=== PATIENT | female | born 1950 | race Caucasian/White ===

== ENCOUNTER → 2017-05-21 13:00 | Outpatient (CLI) | payer MEDICARE, BC, SELFPAY ==
--- OUTSIDE RECORDS SUMMARY | 2017-07-20 12:00 | XMS RPT_ITS ---
:1950 Author Organization OHIP Support Name Relationship Address Phone TIGRE WILD Unavailable [address] [phone] [place] [address] R Unavailable Unavailable TIGRE Pace Unavailable [address] [phone] [place] [address] R Unavailable Unavailable Iliana WILD TIGRE Unavailable [address] [phone] [place] [address] R Unavailable Unavailable Iliana WILD TIGRE Unavailable [address] [phone]~[address] [place] [address] R Unavailable Unavailable Iliana WILD TIGRE Unavailable [address] [phone]~[address] [place] [address] R Unavailable Unavailable Unavailable SCOTT TIGRE Unavailable [address] [phone]~[address] [address] R Unavailable Unavailable Iliana WILD TIGRE Unavailable [address] [phone] [place] [address] R Unavailable Unavailable Iliana WILD TIGRE Unavailable [address] [phone]~[address] [address] R Unavailable Unavailable Unavailable SCOTT TIGRE Unavailable [address] [phone]~[address] [address] R Unavailable Unavailable Unavailable SCOTT TIGRE Unavailable [address] [phone]~[address] [address] R Unavailable Unavailable Unavailable SCOTT TIGRE Unavailable [address] [phone]~[address] [address] R Unavailable Unavailable Unavailable SCOTT TIGRE Unavailable [address] [phone]~[address] [address] R Unavailable Unavailable Unavailable SCOTT TIGRE Unavailable [address] [phone]~[address] [place] [address] R Unavailable Unavailable Unavailable SCOTT, TIGRE Unavailable [address] [phone] [place] [address] R Unavailable Unavailable TIGRE Pace Unavailable [address] [phone] [place] [address] R Unavailable Unavailable TIGRE Pace Unavailable [address] + [place] [address] R Unavailable Unavailable TIGRE Pace Unavailable [address] + [place] [address] R Unavailable Unavailable TIGRE Pace Unavailable [address] + [place] [address] R Unavailable Unavailable TIGRE Pace Unavailable [address] + [place] [address] R Unavailable Unavailable TIGRE Pace Unavailable [address] + [place] [address] R Unavailable Unavailable Iliana WILD TIGRE Unavailable [address] + [place] [address] R Unavailable Unavailable TIGRE Pace Unavailable [address] + [place] [address] R Unavailable Unavailable TIGRE Pace Unavailable [address] + [place] [address] R Unavailable Unavailable Iliana WILD TIGRE Unavailable [address] + [place] [address] R Unavailable Unavailable Iliana WILD TIGRE Unavailable [address] + [place] [address] R Unavailable Unavailable Unavailable SCOTT TIGRE Unavailable [address] + [place] [address] R Unavailable Unavailable Unavailable TIGRE WILD Unavailable [address] + [place] [address] R Unavailable Unavailable Unavailable SCOTT TIGRE Unavailable [address] + [place] [address] R Unavailable Unavailable Iliana WILD TIGRE Unavailable [address] + [place] [address] R Unavailable Unavailable Iliana WILD TIGRE Unavailable [address] + [place] [address] R Unavailable Unavailable Unavailable TIGRE WILD Unavailable [address] + [place] [address] R Unavailable Unavailable Unavailable TIGRE WILD Unavailable [address] + [place] [address] R Unavailable Unavailable Unavailable TIGRE WILD Unavailable [address] + [place] [address] R Unavailable Unavailable TIGRE Pace Unavailable [address] + [place] [address] R Unavailable Unavailable Unavailable TIGRE WILD Unavailable [address] + [place] [address] R Unavailable Unavailable Unavailable TIGRE WILD Unavailable [address] + [place] [address] R Unavailable Unavailable TIGRE Pace Unavailable [address] + [place] [address] R Unavailable Unavailable TIGRE Pace Unavailable [address] + [place] [address] R Unavailable Unavailable TIGRE Pace Unavailable [address] + [place] [address] R Unavailable Unavailable Unavailable TIGRE WILD Unavailable [address] + [place] [address] R Unavailable Unavailable TIGRE Pace Unavailable [address] + [place] [address] R Unavailable Unavailable TIGRE Pace Unavailable [address] + [place] [address] R Unavailable Unavailable TIGRE Pace Unavailable [address] + [place] [address] R Unavailable Unavailable Unavailable TIGRE WILD Unavailable [address] + [place] [address] R Unavailable Unavailable TIGRE Pace Unavailable [address] + [place] [address] R Unavailable Unavailable Unavailable SCOTT TIGRE Unavailable [address] + [place] [address] R Unavailable Unavailable Unavailable SCOTT TIGRE Unavailable [address] + [place] [address] R Unavailable Unavailable Iliana WILD TIGRE Unavailable [address] + [place] [address] R Unavailable Unavailable Unavailable TIGRE WILD Unavailable [address] + [place] [address] R Unavailable Unavailable TIGRE Pace Unavailable [address] + [place] [address] R Unavailable Unavailable Unavailable TIGRE WILD Unavailable [address] + [place] [address] R Unavailable Unavailable TIGRE Pace Unavailable [address] + [place] [address] R Unavailable Unavailable Unavailable TIGRE WILD Unavailable [address] + [place] [address] R Unavailable Unavailable Unavailable TIGRE WILD Unavailable [address] + [place] [address] R Unavailable Unavailable TIGRE Pace Unavailable [address] + [place] [address] R Unavailable Unavailable TIGRE Pace Unavailable [address] + [place] [address] R Unavailable Unavailable Unavailable SCOTT TIGRE Unavailable [address] + [place] [address] R Unavailable Unavailable TIGRE Pace Unavailable [address] + [place] [address] R Unavailable Unavailable TIGRE Pace Unavailable [address] + [place] [address] R Unavailable Unavailable TIGRE Pace Unavailable [address] + [place] [address] R Unavailable Unavailable Iliana WILD TIGRE Unavailable [address] + [place] [address] R Unavailable Unavailable Unavailable SCOTT TIGRE Unavailable [address] + [place] [address] R Unavailable Unavailable TIGRE Pace Unavailable [address] + [place] [address] R Unavailable Unavailable Unavailable SCOTT TIGRE Unavailable [address] + [place] [address] R Unavailable Unavailable Iliana WILD TIGRE Unavailable [address] + [place] [address] R Unavailable Unavailable Unavailable SCOTT TIGRE Unavailable [address] + [place] [address] R Unavailable Unavailable Unavailable TIGRE WILD Unavailable [address] + [place] [address] R Unavailable Unavailable Unavailable TIGRE WILD Unavailable [address] + [place] [address] R Unavailable Unavailable Unavailable TIGRE WILD Unavailable [address] + [place] [address] R Unavailable Unavailable TIGRE Pcae Unavailable [address] + [place] [address] R Unavailable Unavailable Unavailable TIGRE WILD Unavailable [address] + [place] [address] R Unavailable Unavailable TIGRE Pace Unavailable [address] + [place] [address] R Unavailable Unavailable Unavailable TIGRE WILD Unavailable [address] + [place] [address] R Unavailable Unavailable TIGRE Pace Unavailable [address] + [place] [address] R Unavailable Unavailable Iliana WILD TIGRE Unavailable [address] + [place] [address] R Unavailable Unavailable Unavailable TIGRE WILD Unavailable [address] + [place] [address] R Unavailable Unavailable Unavailable TIGRE WILD Unavailable [address] + [place] [address] R Unavailable Unavailable TIGRE Pace Unavailable [address] + [place] [address] R Unavailable Unavailable Iliana WILD TIGRE Unavailable [address] + [place] [address] R Unavailable Unavailable Unavailable TIGRE WILD Unavailable [address] + [place] [address] R Unavailable Unavailable TIGRE Pace Unavailable [address] + [place] [address] R Unavailable Unavailable Unavailable SCOTT TIGRE Unavailable [address] + [place] [address] R Unavailable Unavailable Unavailable SCOTT TIGRE Unavailable [address] + [place] [address] R Unavailable Unavailable Unavailable SCOTT TIGRE Unavailable [address] + [place] [address] R Unavailable Unavailable Unavailable TIGRE WILD Unavailable [address] + [place] [address] R Unavailable Unavailable Unavailable TIGRE WILD Unavailable [address] + [place] [address] R Unavailable Unavailable Unavailable TIGRE WILD Unavailable [address] + [place] [address] R Unavailable Unavailable Unavailable TIGRE WILD Unavailable [address] + [place] [address] R Unavailable Unavailable Unavailable TIGRE WILD Unavailable [address] + [place] [address] R Unavailable Unavailable Unavailable TIGRE WILD Unavailable [address] + [place] [address] R Unavailable Unavailable TIGRE Pace Unavailable [address] + [place] [address] R Unavailable Unavailable TIGRE Pace Unavailable [address] + [place] [address] R Unavailable Unavailable Unavailable TIGRE WILD Unavailable [address] + [place] [address] R Unavailable Unavailable TIGRE Pace Unavailable [address] + [place] [address] R Unavailable Unavailable TIGRE Pace Unavailable [address] + [place] [address] R Unavailable Unavailable TIGRE Pace Unavailable [address] + [place] [address] R Unavailable Unavailable Iliana WILD TIGRE Unavailable [address] + [place] [address] R Unavailable Unavailable Unavailable TIGRE WILD Unavailable [address] + [place] [address] R Unavailable Unavailable Unavailable TIGRE WILD Unavailable [address] + [place] [address] R Unavailable Unavailable Unavailable SCOTT TIGRE Unavailable [address] + [place] [address] R Unavailable Unavailable Iliana WILD TIGRE Unavailable [address] + [place] [address] R Unavailable Unavailable Unavailable SCOTT TIGRE Unavailable [address] + [place] [address] R Unavailable Unavailable Unavailable TIGRE WILD Unavailable [address] + [place] [address] R Unavailable Unavailable Unavailable Care Team Providers Name Role Phone JENNIFER IZQUIERDO Attending Unavailable CIESA, MARIA GUADALUPE (POSTMASTER RELIEF) Referring Unavailable JENNIFER IZQUIERDO Attending Unavailable JENNIFER IZQUIERDO Referring Unavailable DOCTOR, OUT OF TOWN Attending Unavailable Ciesa, Aislinn Primary Care Unavailable GREGORIA OCAMPO Referring Unavailable DOCTOR, OUT [place]OWN Attending Unavailable Ciesa, Aislinn Primary Care Unavailable GREGORIA OCAMPO Referring Unavailable DOCTOR, OUT OF TOWN Attending Unavailable Ciesa, Aislinn Primary Care Unavailable GREGORIA OCAMPO Referring Unavailable DOCTOR, OUT [place] TOWN Attending Unavailable Ciesa, Aislinn Primary Care Unavailable GREGORIA OCAMPO Referring Unavailable DOCTOR, OUT OF TOWN Attending Unavailable Ciesa, Aislinn Primary Care Unavailable GREGORIA OCAMPO Referring Unavailable DOCTOR, OUT OF TOWN Attending Unavailable Ciesa, Aislinn Primary Care Unavailable GREGORIA OCAMPO Referring Unavailable DOCTOR, OUT OF TOWN Attending Unavailable Ciesa, Aislinn Primary Care Unavailable GREGORIA OCAMPO Referring Unavailable DOCTOR, OUT [place] TOWN Attending Unavailable Ciesa, Aislinn Primary Care Unavailable GREGORIA OCAMPO Referring Unavailable DOCTOR, OUT [place] TOWN Attending Unavailable Ciesa, Aislinn Primary Care Unavailable GREGORIA OCAMPO Referring Unavailable DOCTOR, OUT OF TOWN Attending Unavailable Ciesa, Aislinn Primary Care Unavailable GREGORIA OCAMPO Referring Unavailable DOCTOR, OUT OF TOWN Attending Unavailable Ciesa, Aislinn Primary Care Unavailable GREGORIA OCAMPO Referring Unavailable DOCTOR, OUT OF TOWN Attending Unavailable Ciesa, Aislinn Primary Care Unavailable GREGORIA OCAMPO Referring Unavailable DOCTOR, OUT OF TOWN Attending Unavailable Ciesa, Aislinn Primary Care Unavailable DOCTOR, OUT OF TOWN Attending Unavailable Ciesa, Aislinn Primary Care Unavailable GREGORIA OCAMPO Referring Unavailable DOCTOR, OUT OF TOWN Attending Unavailable Ciesa, Aislinn Primary Care Unavailable GREGORIA OCAMPO Referring Unavailable DOCTOR, OUT OF TOWN Attending Unavailable Ciesa, Aislinn Primary Care Unavailable GREGORIA OCAMPO Referring Unavailable DOCTOR, OUT OF TOWN Attending Unavailable Ciesa, Aislinn Primary Care Unavailable GREGORIA OCAMPO Referring Unavailable DOCTOR, OUT OF TOWN Attending Unavailable Ciesa, Aislinn Primary Care Unavailable GREGORIA OCAMPO Referring Unavailable DOCTOR, OUT OF TOWN Attending Unavailable Ciesa, Aislinn Primary Care Unavailable GREGORIA OCAMPO Referring Unavailable DOCTOR, OUT OF TOWN Attending Unavailable Ciesa, Aislinn Primary Care Unavailable GREGORIA COAMPO Referring Unavailable DOCTOR, OUT OF TOWN Attending Unavailable Ciesa, Aislinn Primary Care Unavailable GREGORIA OCAMPO Referring Unavailable DOCTOR, OUT OF TOWN Attending Unavailable Ciesa, Aislinn Primary Care Unavailable GREGORIA OCAMPO Referring Unavailable DOCTOR, OUT OF TOWN Attending Unavailable Ciesa, Aislinn Primary Care Unavailable GREGORIA OCAMPO Referring Unavailable DOCTOR, OUT OF TOWN Attending Unavailable Ciesa, Aislinn Primary Care Unavailable GREGORIA OCAMPO Referring Unavailable DOCTOR, OUT OF TOWN Attending Unavailable Ciesa, Aislinn Primary Care Unavailable GREGORIA OCAMPO Referring Unavailable DOCTOR, OUT OF TOWN Attending Unavailable Ciesa, Aislinn Primary Care Unavailable GREGORIA OCAMPO Referring Unavailable DOCTOR, OUT OF TOWN Attending Unavailable Ciesa, Aislinn Primary Care Unavailable GREGORIA OCAMPO Referring Unavailable DOCTOR, OUT OF TOWN Attending Unavailable Ciesa, Aislinn Primary Care Unavailable GREGORIA OCAMPO Referring Unavailable DOCTOR, OUT OF TOWN Attending Unavailable Ciesa, Aislinn Primary Care Unavailable GREGORIA OCAMPO Referring Unavailable DOCTOR, OUT OF TOWN Attending Unavailable Ciesa, Aislinn Primary Care Unavailable GREGORIA OCAMPO Referring Unavailable DOCTOR, OUT OF TOWN Attending Unavailable Ciesa, Aislinn Primary Care Unavailable GREGORIA OCAMPO Referring Unavailable DOCTOR, OUT OF TOWN Attending Unavailable Ciesa, Aislinn Primary Care Unavailable GREGORIA OCAMPO Referring Unavailable DOCTOR, OUT OF TOWN Attending Unavailable Ciesa, Aislinn Primary Care Unavailable GREGORIA OCAMPO Referring Unavailable DOCTOR, OUT OF TOWN Attending Unavailable GREGORIA OCAMPO Referring Unavailable Ciesa, Aislinn Primary Care Unavailable DOCTOR, OUT OF TOWN Attending Unavailable Ciesa, Aislinn Primary Care Unavailable DOCTOR, OUT OF TOWN Attending Unavailable GREGORIA OCAMPO Referring Unavailable Ciesa, Aislinn Primary Care Unavailable DOCTOR, OUT OF TOWN Attending Unavailable GREGORIA OCAMPO Referring Unavailable Ciesa, Aislinn Primary Care Unavailable Jennifer Izquierdo Attending Unavailable Ciesa, Aislinn Primary Care Unavailable Jennifer Izquierdo Attending Unavailable Ciesa, Aislinn Primary Care Unavailable Mitra Jennifer Attending Unavailable Ciesa, Aislinn Primary Care Unavailable Kuenzler Jennifer Attending Unavailable Ciesa, Aislinn Primary Care Unavailable Ciesa, Aislinn Primary Care Unavailable KumillilerDayanaca Attending Unavailable Ciesa, Aislinn Primary Care Unavailable Kuenzler, Jennifer Attending Unavailable Kuenzler, Jennifer [facility] Kuenzler, Jennifer [facility] Unavailable Ciesa, Aislinn Primary Care Unavailable Kuenzler, Jennifer Attending Unavailable Kuenzler, Jennifer Attending Unavailable Ciesa, Aislinn Primary Care Unavailable Kuenzler, Jennifer Attending Unavailable Ciesa, Aislinn Primary Care Unavailable Kuenzler, Jennifer Attending Unavailable Ciesa, Aislinn Primary Care Unavailable Kuenzler, Jennifer Attending Unavailable Ciesa, Aislinn Primary Care Unavailable Kuenzler, Jennifer Attending [facility] Kuenzler, Jennifer Attending [facility] Unavailable Kuenzler, Jennifer Attending [facility] Unavailable Kuenzler, Jennifer Attending [facility] Unavailable Kuenzler, Jennifer Attending [facility] Unavailable Kuenzler, Jennifer Attending Unavailable Kuenzler, Jennifer Attending [facility] Unavailable Kuenzler, Jennifer Attending [facility] Unavailable Kuenzler, Jennifer Attending [facility] Unavailable Kuenzler, Jennifer Attending [facility] Unavailable Kuenzler, Jennifer Attending [facility] Unavailable Kuenzler, Jennifer Attending [facility] Unavailable Kuenzler, Jennifer Attending [facility] Unavailable Kuenzler, Jennifer Attending [facility] Unavailable Kuenzler, Jennifer Attending [facility] Unavailable Kuenzler, Jennifer Attending [facility] Unavailable Kuenzler, Jennifer Attending [facility] Unavailable Kuenzler, Jennifer Attending [facility] Unavailable Kuenzler, Jennifer Attending [facility] Unavailable Kuenzler, Jennifer Attending [facility] Unavailable Kuenzler, Jennifer Attending [facility] Unavailable Kuenzler, Jennifer Attending Unavailable Ciesa, [facility] Primary Care Unavailable Kuenzler, Jennifer Attending [facility] Unavailable Kuenzler, Jennifer Attending Unavailable Ciesa, Aislinn Primary Care Unavailable Kuenzler, Jennifer [facility] Unavailable Kuenzler, Jennifer Attending Unavailable Ciesa, Aislinn Primary Care Unavailable Kuenzler, Jennifer Attending Unavailable Ciesa, Aislinn Primary Care Unavailable Kuenzler, Jennifer Attending Unavailable Ciesa, Aislinn Primary Care Unavailable Kuenzler, Jennifer Attending Unavailable Ciesa, [facility] Primary Care Unavailable Kuenzler, Jennifer Attending [facility] Unavailable Kuenzler, Jennifer Attending [facility] Unavailable Kuenzler, Jennifer Attending [facility] Unavailable Kuenzler, Jennifer Attending [facility] Unavailable Kuenzler, Jennifer Attending [facility] Unavailable Kuenzler, Jennifer Attending [facility] Unavailable Kuenzler, Jennifer Attending [facility] Unavailable Kuenzler, Jennifer Attending [facility] Unavailable Kuenzler, Jennifer Attending [facility] Unavailable Kuenzler, Jennifer Attending [facility] Unavailable Kuenzler, Jennifer Attending [facility] Unavailable Kuenzler, Jennifer Attending [facility] Unavailable Kuenzler, Jennifer Attending [facility] Unavailable Kuenzler, Jennifer Attending [facility] Unavailable Kuenzler, Jennifer Attending [facility] Unavailable Kuenzler, Jennifer Attending [facility] Unavailable Kuenzler, Jennifer Attending [facility] Unavailable Kuenzler, Jennifer Attending [facility] Unavailable Kuenzler, Jennifer Attending [facility] Unavailable Danelle Myers Attending [facility] Unavailable Danelle Myers Referring Unavailable Kuenzler, Jennifer Attending [facility] Unavailable Vellanki, Danelle Attending Un[facility] Unavailable Jennifer Izquierdo Attending [facility]available [facility] Unavailable Jennifer Izquierdo Referring Unavailable Jennifer Izquierdo Attending Unavailable [facility] Unavailable PROBLEMS PROBLEMS DATE TYPE CONDITION / CODE ATTENDING STATUS SOURCE Unknown MUSCLE CARNITINE Terri Izquierdo PALMITOYLTRANSFERASE [facility] DEFICIENCY / Hospital E71.314(ICD-10) Repository Unknown INFLAMMATORY Mitra Active [place] 7 POLYARTHROPATHY / Jennifer [facility] M06.4(ICD-10) Hospital Repository Unknown FIBROMYALGIA / Mitra Active [place] 7 M79.7(ICD-10) [facility] Hospital Repository Unknown 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 / Jennifer [facility] M75.42(ICD-10) Hospital Repository Unknown OBSTRUCTIVE SLEEP APNEA Terri Izquierdo Tae 7 (ADULT) (PEDIATRIC) / Jennifer [facility] G47.33(ICD-10) Hospital Repository Unknown OTHER MCC (CURRENT) Terri Izquierdo Tae 7 DRUG THERAPY / [facility] Z79.899(ICD-10) Hospital Repository Unknown COUGH / R05(ICD-10) Terri Izquierdo Gustine 7 [facility] Hospital Repository PROCEDURES PROCEDURES No Procedure Records FoundRESULTS RESULTS CNCO Observed: 07/09/2017 Status: COMPLETED Source: [place] 12:00 AM [facility] REPOSITORY Letter Jaydon Izquierdo MDM[facility]rological [id number] [place], [place] [phone], ext [phone] SPECIFICS:NAME: [facility] [id number]: 07/09/2017ADDRESS: [address] [facility] [address]ZMULH: [phone] (home): 1950PRESCRIPTION: Heparin flush twice weeklyDIAGNOSIS:(E71.40) 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, [address] GGTP Collected: 06/25/2017 Status: F Source: [place] 3:59 PM [facility] REPOSITORY TYPE CODE TESTS RESULT OUT OF RANGE REFERENCE UNITS LAB L501.5100 High 5-55 U/L GGTP 140 Performed By: #### L501.3620, L501.5100 ####[facility] [address] [place], [place], [address] CBC W/DIFF, AUTOMATED Collected: 06/24/2017 Status: F Source: [place] 9:50 AM [facility] REPOSITORY TYPE CODE TESTS RESULT OUT OF RANGE REFERENCE UNITS LAB L100.1000 Normal 4.4-11.0 K/mm3 WBC 4.9 LAB L100.1200 Low 4.2-5.4 M/mm3 RBC 4.16 LAB L100.1300 Normal 12.0-15.0 g/dl HGB 12.8 LAB L100.1400 Normal 37-47 % HCT 40.7 LAB L100.1500 Normal 81-99 fL MCV 97.8 LAB L100.1600 Normal 27.0-32.0 pg MCH 30.8 LAB L100.1700 Low 32-36 g/gl MCHC 31.4 LAB L100.1810 Normal 11.6-14.6 % RDW 13.5 CV LAB L100.1820 High 35.1-43.9 fl RDW 47.9 SD LAB L100.1900 Normal 150-450 K/mm3 PLT 264 LAB L100.2000 Normal 6.2-12.0 fl MPV 9.9 LAB L100.2100 Normal 47-70 % NEUT% 59.0 LAB L100.2200 Normal 19-41 % LY% 28.3 LAB L100.2300 High 0-10 % MONO% 10.1 LAB L100.2400 Normal 0-5 % EO% 2.0 LAB L100.2500 Normal 0-1 % BASO% 0.4 LAB L100.2550 Normal 0.0-0.9 % IM 0.200 GRAN % Result Comment: IG% - Immature Granulocytes (promyelocytes, myelocytes andmetamyelocytes) > 1% indicates that a LEFT SHIFT is Present. LAB L100.2620 Normal 2.0-7.7 X10 3/uL Absolute Neut 2.9 LAB L100.2720 Normal 0.83-4.51 X10 3/ul Absolute Lymph 1.40 Performed By: #### L100.0100 ####[facility] [address] [place], [place], [address] COMPREHENSIVE METABOLIC Collected: 06/24/2017 Status: F Source: [facility] 9:50 AM [facility] REPOSITORY TYPE CODE TESTS RESULT OUT OF RANGE REFERENCE UNITS LAB L501.0100 High 70-110 mg/dL GLU 125 Result Comment: Fasting Glucose result from 110 to <126 mg/dLsuggests IMPAIRED HOMEOSTASIS per A.D.A. criteria. LAB L501.1000 Normal 7-18 mg/dL BUN 17 LAB L501.1100 Normal 0.55-1.02 mg/dL CREAT,SERUM 0.71 Result Comment: The validity of the calculated GFR AND GFRAA in patients over70 years has not been determined. Clinical correlation isessential. LAB L501.1110 Normal >60 mL/min EST GFR 87 Result Comment: Non- GFR Calc LAB L501.1115 Normal >60 mL/min EST GFR - 106 AA Result Comment: GFR Calc LAB L501.1300 High 10-20 RATIO BUN/CRE 24.1 LAB L501.1500 Normal 6.4-8.2 g/dL T PROT 6.8 LAB L501.1800 Low 3.4-5.0 g/dL ALB 3.2 Result Comment: Please note revised Albumin AND Globulin reference rangeeffective 2017. LAB L501.1950 Normal 2.2-4.2 g/dL GLOB 3.6 LAB L501.2000 Normal 0.9-2.4 RATIO A/G 0.9 LAB L501.2200 Normal 8.5-10.1 mg/dL CA 8.7 LAB L501.4100 High 15-37 U/L AST 52 LAB L501.4305 Normal 45-117 U/L ALK P 79 LAB L501.4405 Normal 12-78 U/L ALT 67 LAB L501.4600 Normal 0.20-1.00 mg/dL T BILI 0.70 LAB L501.5300 Normal 136-145 mmol/L NA 140 LAB L501.5600 Normal 3.5-5.1 mmol/L K 4.1 LAB L501.5900 Normal 98-107 mmol/L CL 105 LAB L501.6100 Normal 21.0-32.0 mmol/L CO2 28.0 LAB L501.6200 Normal 5-15 GAP 7 Performed By: #### L500.4050 ####[facility] [address] [place], [address] PROGRESS Observed: 03/17/2017 Status: COMPLETED Source: [place] 4:51 PM [facility] REPOSITORY HNO ID: [id number]: Jennifer De Lunaervice: (none) Author Type: PhysicianType: Progress NotesFiled: 03/18/2017 10:10 AMNote Text:S: Patient reports that she her been up and down. About 3 weeks ago shewas particularly bad - she was drained and was sleeping every day. She hadan extra carnitine infusion day and feels that this got her better after2-3 days. She can still tell how much an activity will affect her. Shefeels that emotional things can drain her as well. She still has pain thatshe feels is related to fibromyalgia. Mornings are always more challengingfor her. She still has to limit her activities toShe still feels that she still gets improvement on days that she hascarnitine infusions. She does notice dry skin.She was told she had a left shift in her blood work and is following upwith her PCP.She is hoping to go away for a month [place] She is wondering if she can get infusions done while she isthere.O:BP 153/ 71 Pulse (!) 58MS: alert and responsive, language intactCN: EOMI, V1-V3 intact bilaterally, face symmetrical, hearing grosslyintact bilaterallyMotor: 4+/5 HF and infraspinatus bilaterally, otherwise 5/5 throughout allmuscle groups, nl tone and bulk, able to arise from a chair without usinghandsSensory: intact to LTReflexes: 2+ bilateral biceps, triceps, brachioradialis, 1+ knees, andabsent ankles; no crossed adductors; no Ma's or Troemner'sbilaterallyCerebellar: FTN, HTS, and HALIE intact bilaterallyGait: antalgic but intact including toe walking, defers heel walking dueto imbalance, moderate difficulty with tandem gait, Romberg negativeA/P:Felix Wild is a 66 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 She feels thatoverall her symptoms have been manageable though she still has troublesomefatigue symptoms. She feels she gets benefit from carnitine infusions.Will continue carnitine IV two infusions a day on two days a week.She is planning to be away from early Jun to mid-Jul and would like to getcarnitine infusions at [facility] (ph: [phone]). Willinvestigate this option.Refills provided for Ultram and oral carnitine.Follow up in 6 months.Jennifer Izquierdo MD CNOV Observed: 03/17/2017 Status: COMPLETED Source: [place] 4:10 PM [facility] REPOSITORY Office Visit (NENMMN) ---------FELIX WILD ([id number]) 1950 FDate Time Provider Department03/17/17 4:10 PM JENNIFER IZQUIERDO During your visit today, we recorded the following information about you: Pulse Blood pressure 58/minute 153/71Reailyn Izquierdo MD 03/18/2017 10:10 AM SignedS: Patient reports that she her been up and down. About 3 weeks ago she wasparticularly bad - she was drained and was sleeping every day. She had an extracarnitine infusion day and feels that this got her better after 2-3 days. Shecan still tell how much an activity will affect her. She feels that emotionalthings can drain her as well. She still has pain that she feels is related tofibromyalgia. Mornings are always more challenging for her. She still has tolimit her activities toShe still feels that she still gets improvement on days that she has carnitineinfusions. She does notice dry skin.She was told she had a ANDquot;left shiftANDquot; in her blood work and isfollowing up with her PCP.She is hoping to go away for a month - planning to rent a place in [place], [place]. She is wondering if she can get infusions done while she is there.O:BP 153/71 Pulse (!) 58MS: alert and responsive, language intactCN: EOMI, V1-V3 intact bilaterally, face symmetrical, hearing grossly intactbilaterallyMotor: 4+/5 HF and infraspinatus bilaterally, otherwise 5/5 throughout allmuscle groups, nl tone and bulk, able to arise from a chair without using handsSensory : intact to LTReflexes: 2+ bilateral biceps, triceps, brachioradialis, 1+ knees, and absentankles; no crossed adductors; no Ma's or Troemner's bilaterallyCerebellar: FTN, HTS, and HALIE intact bilaterallyGait: antalgic but intact including toe walking, defers heel walking due toimbalance, moderate difficulty with tandem gait, Romberg negativeA/P:Felix Wild is a 66 year-old woman with muscle carnitine deficiency who hasimproved on carnitine supplements - IV and oral. She feels that overall hersymptoms have been manageable though she still has troublesome fatiguesymptoms. She feels she gets benefit from carnitine infusions. Will continuecarnitine IV two infusions a day on two days a week.She is planning to be away from early Jun to mid-Jul and would like to getcarnitine infusions at [facility] (ph: [phone]). Willinvestigate this option.Refills provided for Ultram and oral carnitine.Follow up in 6 months.Rayshawn Marlow Provider: JENNIFER IZQUIERDO [[id number]]Allergies As of Date: 03/17/2017 Noted Allergy ReactionMETOCLOPRAMIDE 09/11/2002 Comments: Jamshid mena (PENTAZOCINE) 03/13/2004 14 - Other: See Comments Comments: Nervous and passed outDate Reviewed: 03/17/2017Reviewed by: Marleni (Rn) DESTINEE Brown - Fully AssessedPrimary Visit Diagnosis:Muscle carnitine deficiency (HCC) [E71.40] Other Visit Diagnosis: Carnitine deficiency (HCC) [E71.40]Order(s):levOCARNitine (CARNITOR) 330 mg tablettake 3 tablets by mouth four times a dayDisp: 360 tabletRfl: 11 ULTRAM 50 mg tabletTake one tablet by mouth up to two times daily as neededDisp: 60 tabletRfl: 5Prescriptions as of 2016 Sig: AMLODIPINE ORAL Take by mouth. LEVOCARNITINE 330 MG TABLET take 3 tablets by mouth four * ULTRAM 50 MG TABLET Take one tablet by mouth up t* FLUOXETINE 20 MG CAPSULE Take 1 capsule by mouth once * TRAZODONE 50 MG TABLET Take 1 tablet by mouth at bed* CYCLOBENZAPRINE 5 MG TABLET Take 1 tablet by mouth three * SULFASALAZINE 500 MG TABLET Take 2 tablets by mouth twice* COENZYME N18-SHAZJIG E 100 MG* Take by mouth. FLUTICASONE 100 MCG-SALMETERO* Inhale 1 Puff as instructed t* MULTIVITAMIN TABLET Take one(1) tablet daily. ALIGN 4 MG CAPSULE Take one(1) tablet daily. SULINDAC 150 MG TABLET Take one(1) tablet two(2) cherry* ALBUTEROL SULFATE HFA 90 MCG/* Use 2 puffs every 4 hours as * CHOLECALCIFEROL (VITAMIN D3) * Take 1 capsule by mouth once *Medication notes this encounter AMLODIPINE ORAL >> Marleni Brown RN , RN 03/17/2017 4:31 PM >> MARLENI BROWN WedMar 17, 2017 4:31 PM Patient unsure of dose CYCLOBENZAPRINE 5 MG TABLET >> Marleni Brown RN, RN 03/17/2017 4: 25 PM >> MARLENI BROWN WedMar 17, 2017 4:25 PM Takes seldomProblem List As Of Date Noted Resolved Myalgia and myositis, unspecified [IIP8231] INVALID FOR*03/11/2016 ANXIETY STATE NOS [F41.1] INVALID FOR* DEPRESSIVE DISORDER NEC [F32.9] INVALID FOR* GENERAL OSTEOARTHROSIS [M15.9] INVALID FOR* ANEMIA NOS [D64.9] INVALID FOR* ESOPHAGEAL REFLUX [K21.9] INVALID FOR* ASTHMA UNSPECIFIED [J45.909] INVALID FOR* BONE AND CARTILAGE DIS NOS [M89.9, M94.9] INVALID FOR* BENIGN NEOPLASM LG BOWEL [D12.6] INVALID FOR* GASTRITIS/DUODENITIS NOS [535.5] INVALID FOR* SUBDURAL HEMORRHAGE [I62.00] INVALID FOR* 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] INVALID FOR* SICCA SYNDROME [M35.00] IMPAIRED FASTING GLUCOSE [R73.01] INVALID FOR * Abnormal X-Ray Examination [R93.8] INVALID FOR* Diverticulosis [K57.90] INVALID FOR* Gastritis/Duodenitis [K29.70, K29.90] INVALID FOR* Carnitine deficiency (HCC) [E71.40] INVALID FOR*03/11/2016 Primary carnitine deficiency (HCC) [E71.41] INVALID FOR*03/11/2016 LINWOOD (obstructive sleep apnea) [G47.33] INVALID FOR* Thoracic or lumbosacral neuritis or radiculitis*INVALID FOR* Lumbago [M54.5] INVALID FOR*08/21/2014 Low back pain [M54.5] INVALID FOR* Muscle carnitine deficiency (HCC) [E71.40] INVALID FOR*Prescriptions ordered this encounter Disp Refills Start End LEVOCARNITINE 330 MG TABLET 360 * 11 03/17/2017 Sig: take 3 tablets by mouth four times a day ULTRAM 50 MG TABLET 60 t* 5 03/17/2017 Class: Print RX Sig: Take one tablet by mouth up to two times daily as neededMedications Discontinued During This Encounter levOCARNitine (CARNITOR) 330 mg tabl* 360 * 11 09/09/2016 03/17/2017 Sig: take 3 tablets by mouth four times a day Disc: Reason for discontinue is not on file. ULTRAM 50 mg tablet 60 t* 5 09/09/2016 03/17/2017 Class: Print RX Sig: Take one tablet by mouth up to two times daily as needed Disc: Reason for discontinue is not on file.Disposition: Return in about 6 months (around 09/14/2017) for carnitine deficiency.Follow-up and Disposition History RecordedLetter Jaydon Izquierdo MDKingman Regional Medical CenterlogMount S[facility], [place] [phone], ext [phone] SPECIFICS:NAME: Felix WildMRN: [id number]: 03/17/2017ADDRESS: [address] [facility] [address]VWBMJ: (home): 1950PRESCRIPTION:Carnitine IV infusion ?1.5 gram two doses a day on Wednesday and WednesdayFor 6 monthsDIAGNOSIS:(E71.40) Muscle carnitine deficiency (HCC) (primary encounter diagnosis) Jennifer Izquierdo MDEncounter Number: [id number] Status:Closed by JENNIFER IZQUIERDO MD on 03/18/17 CBC W/DIFF, AUTOMATED Collected: 03/12/2017 Status: F Source: [place] 2:00 PM [facility] REPOSITORY TYPE CODE TESTS RESULT OUT OF RANGE REFERENCE UNITS LAB L100.1000 Normal 4.4-11.0 K/mm3 WBC 5.2 LAB L100.1200 Low 4.2-5.4 M/mm3 RBC 3.99 LAB L100.1300 Normal 12.0-15.0 g/dl HGB 12.2 LAB L100.1400 Normal 37-47 % HCT 38.3 LAB L100.1500 Normal 81-99 fL MCV 96.0 LAB L100.1600 Normal 27.0-32.0 pg MCH 30.6 LAB L100.1700 Low 32-36 g/gl MCHC 31.9 LAB L100.1810 Normal 11.6-14.6 % RDW 13.6 CV LAB L100.1820 High 35.1-43.9 fl RDW 47.7 SD LAB L100.1900 Normal 150-450 K/mm3 PLT 250 LAB L100.2000 Normal 6.2-12.0 fl MPV 9.4 LAB L100.2100 Normal 47-70 % NEUT% 57.9 LAB L100.2200 Normal 19-41 % LY% 31.7 LAB L100.2300 Normal 0-10 % MONO% 9.2 LAB L100.2400 Normal 0-5 % EO% 1.0 LAB L100.2500 Normal 0-1 % BASO% 0.2 LAB L100.2550 Normal 0.0-0.9 % IM 0.000 GRAN % Result Comment: IG% - Immature Granulocytes (promyelocytes, myelocytes andmetamyelocytes) > 1% indicates that a LEFT SHIFT is Present. LAB L100.2620 Normal 2.0-7.7 X10 3/uL Absolute Neut 3.0 LAB L100.2720 Normal 0.83-4.51 X10 3/ul Absolute Lymph 1.66 Performed By: #### L100.0100 ####[facility] [address] [place], [address] COMPREHENSIVE METABOLIC Collected: 03/12/2017 Status: F Source: [facility] 2:00 PM [facility] REPOSITORY TYPE CODE TESTS RESULT OUT OF RANGE REFERENCE UNITS LAB L501.0100 Normal 70-110 mg/dL GLU 106 LAB L501.1000 High 7-18 mg/dL BUN 24 LAB L501.1100 Normal 0.55-1.02 mg/dL 0.56 CREAT,SERUM Result Comment: The validity of the calculated GFR AND GFRAA in patients over70 years has not been determined. Clinical correlation isessential. LAB L501.1110 Normal >60 mL/min EST GFR 114 Result Comment: Non- GFR Calc LAB L501.1115 Normal >60 mL/min EST GFR - 138 AA Result Comment: GFR Calc LAB L501.1300 High 10-20 RATIO BUN/CRE 42.9 LAB L501.1500 Normal 6.4-8.2 g/dL T PROT 6.6 LAB L501.1800 Low 3.4-5.0 g/dL ALB 3.2 LAB L501.1950 Normal 2.3-3.5 g/dL GLOB 3.4 LAB L501.2000 Normal 0.9-2.4 RATIO A/G 0.9 LAB L501.2200 Low 8.5-10.1 mg/dL CA 8.1 LAB L501.4100 Normal 15-37 U/L AST 18 LAB L501.4305 Normal 45-117 U/L ALK P 62 LAB L501.4405 Normal 12-78 U/L ALT 26 LAB L501.4600 Normal 0.20-1.00 mg/dL T BILI 0.60 LAB L501.5300 Normal 136-145 mmol/L NA 142 LAB L501.5600 Normal 3.5-5.1 mmol/L K 4.0 LAB L501.5900 High 98-107 mmol/L CL 110 LAB L501.6100 Normal 21.0-32.0 mmol/L CO2 27.0 LAB L501.6200 Normal 5-15 GAP 5 Performed By: #### L500.4050 ####[facility] [address] [place], [address] CHEST PA AND LATERAL Observed: 12/23/2016 Status: F Source: [place] 10:58 AM [facility] RE[facility]ITORY [facility] [address] [place], [place] [address]Xbxrzhs 4dChest PA and LateralMR#: [id number] Acct: [id number]: FELIX WILD Rep #: [id number]: 1950 F 66 From: Juan Woody MDPCP: Aislinn Espinal Status: REG CLIStudy: Chest PA and Lateral Date of Exam: 12/23/16Exam# [id number] Ordering Dr: Jennifer Izquierdo MDSTUDY: X-RAY CHESTREASON FOR EXAM: Female, 66 years old. CoughTECHNIQUE: PA and lateral views of the chest.COMPARISON: 11/15/2014 FINDINGS:Left subclavian Port-A- Cath tip in the distal SVC..The lungs are clear and expanded. There is no demonstrated pleuralabnormality.Normal size heart. Normal mediastinum and heather. Normal visualizedpulmonary arteries. Normal visualized aortic arch and descending thoracicaorta.Normal visualized thoracic spine. Normal visualized ribs, clavicles, andshoulders.There is no demonstrated abnormality of the visualized soft tissuestructures of the upper abdomen. ORDER #: [id number] RAD/Chest PA and LateralIMPRESSION:No acute pulmonary processElectronically Signed:Bryant Woody MD at 11:44 EDTTel , Service support , YI: Aislinn Izquierdo Information Technology Director:Signed CBC W/DIFF, AUTOMATED Collected: 12/01/2016 Status: F Source: [place] 2:00 PM [facility] REPOSITORY TYPE CODE TESTS RESULT OUT OF RANGE REFERENCE UNITS LAB L100.1000 Normal 4.4-11.0 K/mm3 WBC 5.8 LAB L100.1200 Low 4.2-5.4 M/mm3 RBC 4.16 LAB L100.1300 Normal 12.0-15.0 g/dl HGB 12.9 LAB L100.1400 Normal 37-47 % HCT 39.1 LAB L100.1500 Normal 81-99 fL MCV 94.0 LAB L100.1600 Normal 27.0-32.0 pg MCH 31.0 LAB L100.1700 Normal 32-36 g/gl MCHC 33.0 LAB L100.1810 Normal 11.6-14.6 % RDW 12.8 CV LAB L100.1820 Normal 35.1-43.9 fl RDW 42.9 SD LAB L100.1900 Normal 150-450 K/mm3 PLT 270 LAB L100.2000 Normal 6.2-12.0 fl MPV 9.5 LAB L100.2100 Normal 47-70 % NEUT% 57.6 LAB L100.2200 Normal 19-41 % LY% 31.7 LAB L100.2300 Normal 0-10 % MONO% 9.5 LAB L100.2400 Normal 0-5 % EO% 1.0 LAB L100.2500 Normal 0-1 % BASO% 0.2 LAB L100.2550 Normal 0.0-0.9 % IM 0.000 GRAN % Result Comment: IG% - Immature Granulocytes (promyelocytes, myelocytes andmetamyelocytes) > 1% indicates that a LEFT SHIFT is Present. LAB L100.2620 Normal 2.0-7.7 X10 3/uL Absolute Neut 3.3 LAB L100.2720 Normal 0.83-4.51 X10 3/ul Absolute Lymph 1.83 Performed By: #### L100.0100, L500.4050 ####[facility] [address] [place], [address] COMPREHENSIVE METABOLIC Collected: 12/01/2016 Status: F Source: [facility] 2:00 PM [facility] REPOSITORY TYPE CODE TESTS RESULT OUT OF RANGE REFERENCE UNITS LAB L501.0100 Normal 70-110 mg/dL GLU 98 LAB L501.1000 Normal 7-18 mg/dL BUN 16 LAB L501.1100 Normal 0.55-1.02 mg/dL 0.60 CREAT,SERUM Result Comment: The validity of the calculated GFR AND GFRAA in patients over70 years has not been determined. Clinical correlation isessential. LAB L501.1110 Normal >60 mL/min EST GFR 105 Result Comment: Non- GFR Calc LAB L501.1115 Normal >60 mL/min EST GFR - 127 AA Result Comment: GFR Calc LAB L501.1255 Normal ml/min Estimated 44.54 CRCL LAB L501.1300 High 10-20 RATIO BUN/CRE 26.6 LAB L501.1500 Normal 6.4-8. g/dL T PROT 6.8 2 LAB L501.1800 Low 3.4-5. g/dL ALB 3.3 0 LAB L501.1950 Normal 2.3-3. g/dL GLOB 3.5 5 LAB L501.2000 Normal 0.9-2. RATIO A/G 0.9 4 LAB L501.2200 Normal 8.5-10 mg/dL CA 8.5 .1 LAB L501.4100 Normal 15-37 U/L AST 16 LAB L501.4305 Normal 45-117 U/L ALK P 69 LAB L501.4405 Normal 12-78 U/L ALT 21 LAB L501.4600 Normal 0.20-1 mg/dL T BILI 0.60 .00 LAB L501.5300 Normal 136-14 mmol/L NA 144 5 LAB L501.5600 Normal 3.5-5. mmol/L K 3.9 1 LAB L501.5900 High 98-107 mmol/L CL 109 LAB L501.6100 Normal 21.0-3 mmol/L CO2 28.0 2.0 LAB L501.6200 Normal 5-15 GAP 7 Performed By: #### L100.0100, L500.4050 ####[facility] [address] [place], [address] PROGRESS Observed: 09/09/2016 Status: COMPLETED Source: [place] 3:11 PM [facility] REPOSITORY HNO ID: [id number]: Jennifer De Lunaervice: (none) Author Type: PhysicianType: Progress NotesFiled: 09/09/2016 3:33 PMNote Text:S: Patient repots that she has been more tired in the last few weeks andis now sleeping 2- 3 hours during the day despite sleeping 10 hours atnight. She will have minimal activity during the day but gets to the pointwhere she can hardly hold her head up. She has missed a few carnitineinfusions but does not notice this is connected to her recent worsening.She still has some muscle pain but she does start cramping sometimes -this is quite intermittent and better than it was prior to carnitineinfusions. Her legs are more sore if she is up and walking a lot.She feels she is getting more depressed as she cannot do as much. She elly Prozac 10 mg daily and feels this has been helpful. She was previouslyon 20 mg and felt better but she went back down when she was feelingbetter.She feels that she still gets improvement on days that she has carnitineinfusions. She does notice dry skin.O:BP 136/67 Pulse (!) 54 Resp 16 Ht 162.6 cm (5' 4) Wt 84.8 kg (187lb) BMI 32.1 kg/m2MS: alert and responsive, language intactCN: EOMI, V1-V3 intact bilaterally, face symmetrical, hearing grosslyintact bilaterallyMotor: 4+/5 HF and infraspinatus bilaterally, otherwise 5/5 throughout allmuscle groups, nl tone and bulk, able to arise from a chair without usinghandsSensory: intact to LTReflexes: 2+ bilateral biceps, triceps, brachioradialis, 1+ knees, andabsent ankles; no crossed adductors; no Ma' s or Troemner'sbilaterallyCerebellar: FTN, HTS, and HALIE intact bilaterallyGait: antalgic but intact including heel and toe walking, unable toperform tandem gait, Romberg negativeA/P:Felix Wild is a 66 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 She feels thatoverall her symptoms have been manageable though she still has troublesomefatigue symptoms. She feels she gets benefit from carnitine infusions.Will continue carnitine IV two infusions a day on two days a week.She seems to have depression symptoms that are worsening. Will increaseProzac from 10 mg to 20 mg.Ultram refill provided.Follow up in 6 months.Jennifer Izquierdo MD CNOV Observed: 09/09/2016 Status: COMPLETED Source: [place] 2:40 PM [facility] REPOSITORY Office Visit (NENMMN) ---------FELIX WILD ([id number]) 1950 [facility] Provider Department09/09/16 2:40 PM JENNIFER IZQUIERDO During your visit today, we recorded the following information about you: Pulse Respiration Blood pressure Weight 54/minute 16/minute 136/67 84.8 kg Height 1.626 Ruchi Izquierdo MD 09/09/2016 3:33 PM SignedS: Patient repots that she has been more tired in the last few weeks and is nowsleeping 2-3 hours during the day despite sleeping 10 hours at night. She willhave minimal activity during the day but gets to the point where she can hardlyhold her head up. She has missed a few carnitine infusions but does not noticethis is connected to her recent worsening. She still has some muscle pain butshe does start cramping sometimes - this is quite intermittent and better thanit was prior to carnitine infusions. Her legs are more sore if she is up andwalking a lot.She feels she is getting more depressed as she cannot do as much. She is onProzac 10 mg daily and feels this has been helpful. She was previously on 20 mgand felt better but she went back down when she was feeling better.She feels that she still gets improvement on days that she has carnitineinfusions. She does notice dry skin.O :BP 136/67 Pulse (!) 54 Resp 16 Ht 162.6 cm (5' 4ANDquot;) Wt 84.8 kg (187lb) BMI 32.1 kg/m2MS: alert and responsive, language intactCN: EOMI, V1-V3 intact bilaterally, face symmetrical, hearing grossly intactbilaterallyMotor: 4+/5 HF and infraspinatus bilaterally, otherwise 5/5 throughout allmuscle groups, nl tone and bulk, able to arise from a chair without using handsSensory : intact to LTReflexes: 2+ bilateral biceps, triceps, brachioradialis, 1+ knees, and absentankles; no crossed adductors; no Ma's or Troemner's bilaterallyCerebellar: FTN, HTS, and HALIE intact bilaterallyGait: antalgic but intact including heel and toe walking, unable to performtandem gait, Romberg negativeA/P:Felix Wild is a 66 year-old woman with muscle carnitine deficiency who hasimproved on carnitine supplements - IV and oral. She feels that overall hersymptoms have been manageable though she still has troublesome fatiguesymptoms. She feels she gets benefit from carnitine infusions. Will continuecarnitine IV two infusions a day on two days a week.She seems to have depression symptoms that are worsening. Will increase Prozacfrom 10 mg to 20 mg.Ultram refill provided.Follow up in 6 months.Anam Marlow MD 3:35 PM SignedAddended by: JENNIFER IZQUIERDO MD on: 09/09/2016 03:35 PM Modules accepted: Christie Izquierdo MD 09/09/2016 3:38 PM SignedAddended by: JENNIFER IZQUIERDO MD on: 03:38 PM Modules accepted: OrdersReferring Provider: AISLINN ESPINAL ([employer]) [[id number]] Allergies As of Date: 09/09/2016 Noted Allergy ReactionMETOCLOPRAMIDE 09/11 Comments: Jamshid mena (PENTAZOCINE) 03/13/2004 14 - Other: See Comments Comments: Nervous and passed outDate Reviewed: 09/09/2016Reviewed by: Bonnie Mccauley Ma - Fully AssessedPrimary Visit Diagnosis:Muscle carnitine deficiency (HCC) [E71.41] Other Visit Diagnoses:Depressive disorder, not elsewhere classified [F32.9] Carnitine deficiency (HCC) [E71.40]Order(s):FLUoxetine (PROZAC) 20 mg capsuleTake 1 capsule by mouth once daily.Disp: 90 capsuleRfl: 3 ULTRAM 50 mg tabletTake one tablet by mouth up to two times daily as neededDisp: 60 tabletRfl: 5 levOCARNitine ( CARNITOR) 330 mg tablettake 3 tablets by mouth four times a dayDisp: 360 tabletRfl: 11Prescriptions as of 09/09/2016 Sig: FLUOXETINE 20 MG CAPSULE Take 1 capsule by mouth once * ULTRAM 50 MG TABLET Take one tablet by mouth up t* LEVOCARNITINE 330 MG TABLET take 3 tablets by mouth four * TRAZODONE 50 MG TABLET Take 1 tablet by mouth at bed* CYCLOBENZAPRINE 5 MG TABLET Take 1 tablet by mouth three * SULFASALAZINE 500 MG TABLET Take 2 tablets by mouth twice* CHOLECALCIFEROL (VITAMIN D3) * Take 1 capsule by mouth once * COENZYME Q33-TNPSWVF E 100 MG* Take by mouth. FLUTICASONE 100 MCG- SALMETERO* Inhale 1 Puff as instructed t* MULTIVITAMIN TABLET Take one(1) tablet daily. ALIGN 4 MG CAPSULE Take one(1) tablet daily. SULINDAC 150 MG TABLET Take one (1) tablet two(2) cherry* ALBUTEROL SULFATE HFA 90 MCG/* Use 2 puffs every 4 hours as *Problem List As Of Date 09/09/2016 Noted Resolved Myalgia and myositis, unspecified [GOX1395] INVALID FOR*03/11/2016 ANXIETY STATE NOS [F41.1] INVALID FOR* DEPRESSIVE DISORDER NEC [F32.9] INVALID FOR* GENERAL OSTEOARTHROSIS [ M15.9] INVALID FOR* ANEMIA NOS [D64.9] INVALID FOR* ESOPHAGEAL REFLUX [K21.9] INVALID FOR* ASTHMA UNSPECIFIED INVALID FOR* BONE AND CARTILAGE DIS NOS [M89.9, M94.9] INVALID FOR* BENIGN NEOPLASM LG BOWEL [D12.6] INVALID FOR* GASTRITIS/DUODENITIS NOS [535.5] INVALID FOR* SUBDURAL HEMORRHAGE [I62.00] INVALID FOR* 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] INVALID FOR* SICCA SYNDROME [M35.00] IMPAIRED FASTING GLUCOSE [ R73.01] INVALID FOR* Abnormal X-Ray Examination [R93.8] INVALID FOR* Diverticulosis [K57.90] INVALID FOR* Gastritis/Duodenitis [K29.70, K29.90] INVALID FOR* Carnitine deficiency (HCC) [E71.40] INVALID FOR*03/11/2016 Primary carnitine deficiency (HCC) [E71.41] INVALID FOR*03/11/2016 LINWOOD (obstructive sleep apnea) [G47.33] INVALID FOR* Thoracic or lumbosacral neuritis or radiculitis*INVALID FOR* Lumbago [M54.5] INVALID FOR*08/21/2014 Low back pain [M54.5] INVALID FOR* Muscle carnitine deficiency (HCC) [E71.41] INVALID FOR* Prescriptions ordered this encounter Disp Refills Start End FLUOXETINE 20 MG CAPSULE 90 c* 3 09/09/2016 Route: ORAL Sig: Take 1 capsule by mouth once daily. ULTRAM 50 MG TABLET 60 t* 5 09/09/2016 Class: Print RX Sig: Take one tablet by mouth up to two times daily as needed LEVOCARNITINE 330 MG TABLET 360 * 11 2016 Sig: take 3 tablets by mouth four times a dayMedications Discontinued During This Encounter fluoxetine hcl(PROZAC 20 MG CAP) 90 3 07/04/2008 09/09/2016 Class: Print RX Route: ORAL Sig: Take one(1) capsule daily. May substitute with generic equivalent. Disc: Reason for discontinue is not on file. ULTRAM 50 mg tablet 60 t* 5 03/10/2016 09/09/2016 Class: Print RX Sig: Take one tablet by mouth up to two times daily as needed Disc: Reason for discontinue is not on file. levOCARNitine (CARNITOR) 330 mg tabl* 360 * 11 02/03/2016 09/09/2016 Sig: take 3 tablets by mouth four times a day Disc: Reason for discontinue is not on file.Disposition: Return in about 6 months (around 03/12/2017) for carnitine deficiency.Follow-up and Disposition History RecordedLetter Jaydon Izquierdo MDMnurological [address] [place], [place] [phone], ext [id number] SPECIFICS:NAME: Felix WildMRN: [id number]: 09/09/2018[address] [facility] [address]WFICQ: (home): [address]PRESCRIPTION:Carnitine IV infusion ?1.5 gram two doses a day on Wednesday and WednesdayFor 6 monthsDIAGNOSIS:(E71.41) Muscle carnitine deficiency (HCC) (primary encounter diagnosis)(F32.9) Depressive disorder, not elsewhere classified Jennifer Izquierdo MDEncounter Number: [id number] Status:Closed by JENNIFER IZQUIERDO MD on 09/09/16 ALLERGIES ALLERGIES DATE TYPE / NAME / CODE REACTION SEVERITY SOURCE CODE 05/11/2017 Drug pentazocine Unknown Unknown Tae Allergy/41 lactate/[id number](R Community 6310530([facility]) Repository 05/11/2017 Drug pentazocine/[id number] Unknown Unknown Gustine Allergy/41 83(RXNORM) Community 5244935([facility]) Repository 05/11/2017 Drug metoclopramide/F0060 Other Unknown Gustine Allergy/41 76743(RXNORM) Community 0344471([facility]) Repository 05/11/2017 Drug pentazocine Unknown Gustine Allergy/41 lactate/[id number](R [facility] 5452420[facility] 05/11/2017 Drug pentazocine/[id number] Unknown Gustine Allergy/41 83(RXNORM) [facility] 9461775([facility]) Repository 05/11/2017 Drug metoclopramide/F0060 Other Gustine Allergy/41 52471(RXNORM) [facility] 5865219([facility]) Repository 03/13/2004 DRUG PENTAZOCINE OTHER: SEE C [address] [phone]( Repository [facility] CT) 09/11/2002 DRUG METOCLOPRAMIDE [address] 4200924( Repository [facility] CT) ENCOUNTERS ENCOUNTERS ADMIT/DISCHARGE ACCOUNT ADMITTING ENCOUNTER LOCATION SOURCE NUMBER CLASS 07/01/2017 [id number] [facility] ing:MEDOUTP Repository 06/29/2017 [id number] Ambulatory [facility] Hospital ing:MEDOUTP Repository 06/25/2017 [id number] Ambulatory [facility] Hospital ing:MTLAB Repository 06/25/2017 [id number] Ambulatory [facility] Hospital ing:MEDOUTP Repository 06/24/2017 [id number] Ambulatory [facility] Hospital ing:LAB.FUTUR Repository E 06/22/2017 [id number] Ambulatory [facility] Hospital ing:MEDOUTP Repository 06/18/2017 [id number] Ambulatory [facility] Hospital ing:MEDOUTP Repository 06/17/2017 [id number] Ambulatory [facility] Hospital ing:MEDOUTP Repository 06/11/2017 [id number] Ambulatory [facility] Hospital ing:MEDOUTP Repository 06/08/2017 [id number] Ambulatory [facility] Hospital ing:MEDOUTP Repository 06/04/2017 [id number] Ambulatory [facility] Hospital ing:MEDOUTP Repository 06/01/2017 [id number] Ambulatory [facility] Hospital ing:MEDOUTP Repository 2017 [id number] Ambulatory Tae Tae [facility] Hospital ing:MEDOUTP Repository 2017 [id number] Ambulatory Tae Tae [facility] Hospital ing:MEDOUTP Repository 05/25/2017 [id number] Ambulatory Gustine Tae [facility] Hospital ing:MEDOUTP Repository 05/21/2017 [id number] Ambulatory Tae Gustine [facility]Build Hospital ing:MEDOUTP Repository 05/18/2017 [id number] Ambulatory Tae Gustine [facility] Hospital ing:MEDOUTP Repository 05/14/2017 [id number] Ambulatory Tae Tae [facility] Hospital ing:MEDOUTP Repository 05/11/2017 [id number] Ambulatory Gustine Tae [facility] Hospital ing:MEDOUTP Repository 05/07/2017 [id number] Ambulatory Tae Gustine [facility] Hospital ing:MEDOUTP Repository 05/04/2017 [id number] Ambulatory Gustine Tae [facility] Hospital[facility] Hospital ing:MEDOUTP Repository 04/30/2017 [id number] Ambulatory Gustine Tae [facility] Hospital ing:MEDOUTP Repository 04/27/2017 [id number] Ambulatory Tae Gustine [facility] HospitalBuild Hospital ing:MEDOUTP Repository 04/23/2017 [id number] Ambulatory Gustine Tae [facility] Hospital ing:MEDOUTP Repository 04/21/2017 [id number] Ambulatory Gustine Gustine [facility] Hospital ing:MEDOUTP Repository 04/16/2017 [id number] Ambulatory Tae Tae [facility] Hospital[facility] Hospital ing:MEDOUTP Repository 04/14/2017 [id number] Ambulatory Tae Tae [facility] Hospital ing:MEDOUTP Repository 04/09/2017 [id number] Ambulatory Tae Gustine [facility]Build Hospital ing:MEDOUTP Repository 04/06/2017 [id number] Ambulatory Gustine Gustine [facility] HospitalBuild Hospital ing:MEDOUTP Repository 04/02/2017 [id number] Ambulatory Gustine Gustine [facility] Hospital[facility] Hospital ing:MEDOUTP Repository 03/31/2017 [id number] Ambulatory Tae [facility] Hospital[facility] Hospital ing:MEDOUTP Repository 03/31/2017 [id number] [facility] Repository 03/26/2017 [id number] [facility] Repository 03/24/2017 [id number] [facility] Repository 03/19/2017 [id number] [facility] Repository 03/17/2017/03/17/20 [id number] Ambulatory [address] Repository 03/16/2017 [id number] [facility] Repository 03/12/2017 [id number] [facility] Repository 03/09/2017 [id number] [facility] Repository 03/05/2017 [id number] [facility] Repository 03/02/2017 [id number] [facility] Repository 03/01/2017 [id number] [facility] Repository 02/23/2017 [id number] [facility] Repository 02/19/2017 [id number] [facility] Repository 02/16/2017 [id number] [facility] Repository 02/12/2017 [id number] [facility] Repository 02/10/2017 [id number] [facility] Repository 02/05/2017 [id number] [facility] Repository 02/02/2017 [id number] [facility] Repository 01/28/2017 [id number] Ambulatory Tae Tae [facility] Hospital ing:MEDOUTP Repository 01/26/2017 [id number] Ambulatory Gustine Gustine [facility] Hospital ing:MEDOUTP Repository 01/22/2017 [id number] Ambulatory Gustine Tae [facility] Hospital ing:MEDOUTP Repository 01/19/2017 [id number] Ambulatory Tae Gustine [facility] Hospital ing:MEDOUTP Repository 01/15/2017 [id number] Ambulatory Tae Tae [facility] Hospital ing:MEDOUTP Repository 01/12/2017 [id number] Ambulatory Gustine Tae [facility] Hospital ing:MEDOUTP Repository 01/08/2017 [id number] Ambulatory Gustine Tae [facility] Hospital ing:MEDOUTP Repository 01/06/2017 [id number] Ambulatory Gustine Tae [facility] Hospital ing:MEDOUTP Repository 01/01/2017 [id number] Ambulatory Gustine Tae [facility] Hospital ing:MEDOUTP Repository 12/29/2016 [id number] Ambulatory Tae Gustine [facility] Hospital ing:MEDOUTP Repository 12/24/2016 [id number] Ambulatory Tae Tae [facility] Hospital ing:MEDOUTP Repository 12/23/2016 [id number] Ambulatory Tae Gustine [facility] Hospital ing:MEDOUTP Repository 12/18/2016 [id number] Ambulatory Tae Gustine [facility] Hospital ing:MEDOUTP Repository 12/16/2016 [id number] Ambulatory Gustine Gustine [facility] Hospital ing:MEDOUTP Repository 12/11/2016 [id number] Ambulatory Gustine Tae [facility] Hospital ing:MEDOUTP Repository 12/08/2016 [id number] Ambulatory Tae Tae [facility] Hospital ing:MEDOUTP Repository 12/04/2016 [id number] Ambulatory Tae Tae [facility] Hospital ing:MEDOUTP Repository 12/01/2016 [id number] Ambulatory Tae Tae [facility] Hospital ing:MEDOUTP Repository 11/27/2016 [id number] Ambulatory Gustine Tae [facility] Hospital ing:MEDOUTP Repository 11/25/2016 [id number] Ambulatory Tae Gustine [facility] Hospital ing:MEDOUTP Repository 11/20/2016 [id number] Ambulatory Gustine Gustine [facility] Hospital ing:MEDOUTP Repository 11/17/2016 [id number] Ambulatory Gustine Tae [facility] Hospital ing:MEDOUTP Repository 11/12/2016 [id number] Ambulatory Gustine Tae [facility] Hospital ing:MEDOUTP Repository 11/10/2016 [id number] Ambulatory Gustine Gustine [facility] Hospital ing:MEDOUTP Repository 11/05/2016 [id number] Ambulatory Gustine Tae [facility] Hospital ing:MEDOUTP Repository 11/03/2016 [id number] Ambulatory Tae Gustine [facility] Hospital ing:MEDOUTP Repository 10/30/2016 [id number] Ambulatory Gustine Tae [facility] Hospital ing:MEDOUTP Repository 10/28/2016 [id number] Ambulatory Gustine Gustine [facility] Hospital ing:MEDOUTP Repository 10/23/2016 [id number] Ambulatory Tae Gustine [facility] Hospital ing:MEDOUTP Repository 10/20/2016 [id number] Ambulatory Tae Tae [facility] Hospital ing:MEDOUTP Repository 10/16/2016 [id number] Ambulatory Tae Tae [facility] Hospital ing:MEDOUTP Repository 10/13/2016 [id number] Ambulatory Tae Gustine [facility] Hospital ing:MEDOUTP Repository 10/09/2016 [id number] Ambulatory Gustine Tae [facility] Hospital ing:MEDOUTP Repository 10/06/2016 [id number] Ambulatory Tae Tae [facility] Hospital ing:MEDOUTP Repository 10/02/2016 [id number] Ambulatory Tae Tae [facility] Hospital ing:MEDOUTP Repository 09/29/2016 [id number] Ambulatory Gustine Gustine [facility] Hospital ing:MEDOUTP Repository 09/25/2016 [id number] Ambulatory Tae Tae [facility] Hospital ing:MEDOUTP Repository 09/22/2016 [id number] Ambulatory Tae Gustine [facility] Hospital ing:MEDOUTP Repository 09/18/2016 [id number] [facility] Repository 09/15/2016 [id number] [facility] Repository 09/11/2016 [id number] [facility] Repository 09/09/2016/09/10/19 [id number] Ambulatory [address] Repository 09/09/2016 [id number] [facility] Repository 09/04/2016 [id number] Ambulatory Tae Gustine [facility] Hospital ing:MEDOUTP Repository 09/01/2016 [id number] [facility] Repository 08/28/2016 [id number] [facility] Repository 08/26/2016 [id number] [facility] Repository 08/21/2016 [id number] [facility] Repository 08/18/2016 [id number] [facility] Repository 08/11/2016 [id number] [facility] Repository 08/07/2016 [id number] [facility] Repository 08/05/2016 [id number] [facility] Repository 07/31/2016 [id number] Ambulatory Gustine Tae [facility] Hospital ing:MEDOUTP Repository 07/29/2016 [id number] Ambulatory Gustine Gustine [facility] Hospital ing:MEDOUTP Repository 07/24/2016 [id number] [facility] Repository 07/21/2016 [id number] [facility] Repository PAYERS PAYERS ENCOUNTER GUARANTOR PAYER SUBSCRIBER SOURCE 07/01/2017 TIGRE Thapa Primary FELIX LOBATOB: Gustine [id number] JASMYN Insurance:MEDICARE [id number] [address]Hrp: Number: Repository [phone] [id number] (HP) Date:2017-06-25 07/01/2017 Secondary FELIX WILDDOB: Gustine Insurance:ANTHEMPolic [id number] Community y Number: Hospital [id number] Repository Date:7690-34-13QI [address] [place] [address]NV: 07/01/2017 Tertiary NOT GIVENUNK Tae Insurance:SELF PAY [facility] Number: Effective Repository Date:2017-06-25 06/29/2017 TIGRE Thapa Primary FELIX WILDDOB: Gustine [id number] JASMYN Insurance:MEDICARE [id number] [facility] [address]Oqm: Number: Repository [phone] [id number] (HP) Date:2017-06-25 06/29/2017 Secondary FELIX WILDDOB: Tae Insurance:ANTHEMPolic [id number] Community y Number: Hospital [id number] Repository Date:8649-54-87GQ [address], [place] [address]FA: 06/29/2017 Tertiary NOT GIVENUNK Gustine Insurance:SELF PAY [facility] Number: Effective Repository Date:2017-06-25 06/25/2017 TIGRE Thapa Primary FELIX WILDDOB: Gustine [id number] JASMYN Insurance:MEDICARE [id number] [facility] [address]Iin: Number: Repository [phone] [id number] (HP) Date:2017-06-25 06/25/2017 Secondary FELIX WILDDOB: Tae Insurance:ANTHEMPolic [id number] Community y Number: Hospital [id number] Repository Date:3913-24-43ML [address]XSSWQ, [place] [address]HG: 06/25/2017 Tertiary NOT GIVENUNK Tae Insurance:SELF PAY [facility] Number: Effective Repository Date:2017-06-25 06/25/2017 TIGRE Thapa Primary FELIX J HALLDOB: Gustine [id number] JASMYN Insurance:MEDICARE [id number] [facility] [address]Vcr: Number: Repository [phone] [id number] (HP) Date:2017-06-18 06/25/2017 Secondary FELIX J SCOTTDOB: Gustine Insurance:ANTHEMPolic [id number] Community y Number: [facility] [id number] Repository Date:6904-75-91ZZ [address]BIZZ, [place] [address]YZ: 06/25/2017 Tertiary NOT GIVENUNK Tae Insurance:SELF PAY [facility] Hospital Number: Effective Repository Date:2017-06-18 06/24/2017 TIGRE Thapa Primary FELIX J HALLDOB: Tae [id number] JASMYN Insurance:MEDICARE [id number] [facility] [address]Zhx: Number: Repository [phone] [id number] (HP) Date:2017-06-24 06/24/2017 Secondary FELIX J SCOTTDOB: Gustine Insurance:ANTHEMPolic [id number] Community y Number: Hospital [id number] Repository Date:4460-87-70II [address], [place] [address]DX: 06/24/2017 Tertiary NOT GIVENUNK Gustine Insurance:SELF PAY [facility] Hospital Number: Effective Repository Date:2017-06-24 06/22/2017 TIGRE Thapa Primary FELIX J HALLDOB: Tae [id number] JASMYN Insurance:MEDICARE [id number] [facility] [address]Bko: (330) Number: Repository [phone] () [id number] Date:2017-06-18 06/22/2017 Secondary FELIX J HALLDOB: Tae Insurance:ANTHEMPolic [id number] Community y Number: Hospital [id number] Repository Date:4427-73-60JX [address] [place] [address]TG: 06/22/2017 Tertiary NOT GIVENUNK Tae Insurance:SELF PAY [facility] Effective Repository Date:2017-06-18 06/18/2017 Kash Primary FELIX J HALLDOB: Tae [id number] [address] Insurance:MEDICARE [id number] [address]Rgu: (330) Number: Repository [phone] () [id number] Date:2017-06-11 06/18/2017 Secondary FELIX J HALLDOB: Gustine Insurance:ANTHEMPolic [id number] Community y Number: Hospital [id number] Repository Date:0271-28-91TO [address] [place] [address] 935[address]XV: 06/18/2017 Tertiary NOT GIVENUNK Tae Insurance:SELF PAY [facility] Hospital Number: Effective Repository Date:2017-06-11 06/17/2017 Tigre Thapa Primary FELIX J HALLDOB: Tae [id number] Jasmyn Insurance:MEDICARE [id number]-[facility] [address]Rlh: (330) Number: Repository [phone] () [id number] Date:2017-06-11 06/17/2017 Secondary FELIX J HALLDOB: Tae Insurance:ANTHEMPolic [id number] Community y Number: Hospital [id number] Repository Date:9924-82-92RN [address] [place] [address]FX: 06/17/2017 Tertiary NOT GIVENUNK Tae Insurance:SELF PAY [facility] Hospital Number: Effective Repository Date:2017-06-11 06/11/2017 Kash Primary FELIX J HALLDOB: Gustine [id number] Jasm[address] Insurance:MEDICARE [id number] [facility] [address]Mvf: (330) Number: Repository [phone] () [id number] Date:2017-06-02 06/11/2017 Secondary FELIX J HALLDOB: Gustine Insurance:ANTHEMPolic [id number] Community y Number: Hospital [id number] Repository Date:4534-27-06SM [address] [place] [address] 69[address]VH: 06/11/2017 Tertiary NOT GIVENUNK Tae Insurance:SELF PAY [facility] Number: Effective Repository Date:2017-06-02 06/08/2017 Kash Primary FELIX J HALLDOB: Gustine [id number] Jasmyn Insurance:MEDICARE [id number], [place] [facility] [address]Fug: (330) Number: Repository [phone] () [id number] Date:2017-06-02 06/08/2017 Secondary FELIX J HALLDOB: Gustine Insurance:ANTHEMPolic [id number] Community y Number: Hospital [id number] Repository Date:2342-15-20GM [address] [place] [address] 788[address]TM: 06/08/2017 Tertiary NOT GIVENUNK Tae Insurance:SELF PAY [facility] Hospital Number: Effective Repository Date:2017-06-02 06/04/2017 Tigre Thapa Primary FELIX J HALLDOB: Gustine [id number] [address] Insurance:MEDICARE [id number], [place] [facility] [address]Ext: (330) Number: Repository [phone] () [id number] Date:2017-05-25 06/04/2017 Secondary FELIX J HALLDOB: Tae Insurance:ANTHEMPolic [id number] Community y Number: Hospital [id number] Repository Date:2302-72-65KN [address] [place] [address] 735[address]TG: 06/04/2017 Tertiary NOT GIVENUNK Gustine Insurance:SELF PAY [facility] Effective Repository Date:2017-05-25 06/01/2017 Tigre Thapa Primary FELIX J HALLDOB: Gustine [id number] Jasmyn Insurance:MEDICARE [id number], [place] [facility] [address]Ykf: (330) Number: Repository [phone] () [id number] Date:2017-05-25 06/01/2017 Secondary FELIX J HALLDOB: Gustine Insurance:ANTHEMPolic [id number] Community y Number: [facility] [id number] Repository Date:8621-01-89RU [address]BCSVEFZ, [place] [address]JO: 06/01/2017 Tertiary NOT GIVENUNK Tae Insurance:SELF PAY [facility] [facility] Rep[facility] Date:2017-05-25 2017 Tigre Thapa Primary FELIX J SCOTTDOB: Tae [id number] Jasmyn Insurance[id number] [facility] [address]Pxg: (330) Number: Repository [phone] () [id number] Date:2017-05-24 2017 Secondary FELIX Alanis WILDDOB: Tae Insurance:ANTHEMPolic [id number] Community y Number: Hospital [id number] Repository Date:5313-52-77BJ [address]YDLXOF, [place] [address]OW: 2017 Tertiary NOT GIVENUNK Tae Insurance:SELF PAY [facility] Hospital Number: Effective Repository Date:2017-05-25 2017 Tigre Thapa Primary FELIX Thapa HALLDOB: Tae [id number] Jasmyn Insurance:MEDICARE [id number] A [facility] [address]Rqz: (330) Number: Repository [phone] () [id number] Date:2017-05-25 2017 Secondary FELIX J HALLDOB: Gustine Insurance:ANTHEMPolic [id number] Community y Number: Hospital [id number] Repository Date:0270-73-48PG [address], [place] [address]RI: 2017 Tertiary NOT GIVENUNK Tae Insurance:SELF PAY [facility] Number: Effective Repository Date:2017-05-25 05/25/2017 Tigre Thapa Primary FELIX J HALLDOB: Tae [id number] Jasmyn Insurance:MEDICARE [id number] [address]Bnl: (330) Number: Repository [phone] () [id number] Date:2017-05-24 05/25/2017 Secondary FELIX J HALLDOB: Tae [facility] [id number] Community y Number: Hospital [id number] Repository Date:7102-87-32WG [address]BDPQZZQ, [place] [address]LL: 05/25/2017 Tertiary NOT GIVENUNK Gustine Insurance:SELF PAY [facility] Number: Effective Repository Date:2017-05-24 05/21/2017 TIGRE Thapa Primary FELIX Thapa HALLDOB: Gustine [id number] JASMYN Insurance:MEDICARE [id number] [address]Luv: (330) Number: Repository [phone] () [id number] Date:2013-05-21 05/21/2017 Secondary FELIX J HALLDOB: Gustine Insurance:ANTHEMPolic [id number] Community y Number: Hospital [id number] Repository Date:8458-37-15HI [address], [place] [address]BJ: 05/18/2017 TIGRE Thapa Primary FELIX J HALLDOB: Tae [id number] JASMYN Insurance:MEDICARE [id number] [facility] [address]Gbu: (330) Number: Repository [phone] ) [id number] Date:2013-05-21 05/18/2017 Secondary FELIX J HALLDOB: Gustine Insurance:ANTHEMPolic [id number] Community y Number: Hospital [id number] Repository Date:2483-27-92KC [address]EWDTLLJ [place] [address]PS: 05/14/2017 KASH Primary FELIX J HALLDOB: Tae [id number] JASMYN Insurance:MEDICARE [id number] [facility] 13391Qht: (330) Number: Repository [phone] () [id number] Date:2013-05-21 05/14/2017 Secondary FELIX J HALLDOB: Tae Insurance:ANTHEMPolic [id number] Community y Number: Hospital [id number] Repository Date:3482-34-43ND [address] [place] [address] 80[address]XN: 05/11/2017 TIGRE Thapa Primary FELIX J HALLDOB: Gustine [id number] JASMYN Insurance:MEDICARE [id number] [facility] [address]286Apl: (330) Number: Repository [phone] () [id number] Date:2013-05-21 05/11/2017 Secondary FELIX J HALLDOB: Tae Insurance:ANTHEMPolic [id number] Community y Number: Hospital [id number] Repository Date:6450-90-64YW [address] [place] [address] [place] [address]RL: 05/07/2017 KASH Primary FELIX J HALLDOB: Tae [id number] JASMYN Insurance:MEDICARE [id number] [facility] 42480Xgz: (330) Number: Repository [phone] () [id number] Date:2013-05-21 05/07/2017 Secondary FELIX J HALLDOB: Tae Insurance:ANTHEMPolic [id number] Community y Number: Hospital [id number] Repository Date:2266-08-17TE [address] [place] [address] 34[address]AO: 05/04/2017 KASH Primary FELIX J HALLDOB: Tae [id number] JASMYN Insurance:MEDICARE [id number] Cleveland Heights Medical Center 35806Tko: (330) Number: Repository [phone] () [id number] Date:2013-05-21 05/04/2017 Secondary FELIX J HALLDOB: Tae Insurance:ANTHEMPolic [id number] Community y Number: Hospital [id number] Repository Date:2969-72-82WB [address] [place] [address] 145[address]AC: 04/30/2017 KASH Primary FELIX J HALLDOB: Tae [id number] JASMYN Insurance:MEDICARE [id number] Cleveland Heights Medical Center 95879Brh: (330) Number: Repository [phone] () [id number] Date:2013-05-21 04/30/2017 Secondary FELIX J HALLDOB: Tae Insurance:ANTHEMPolic [id number] Community y Number: Hospital [id number] Repository Date:2321-45-38KN [address] [place] [address]PJ: 04/27/2017 KASH Primary FELIX J HALLDOB: Gustine [id number] JASMYN Insurance:MEDICARE [id number] [facility] 94537Uij: (330) Number: Repository [phone] () [id number] Date:2013-05-21 04/27/2017 Secondary FELIX J HALLDOB: Tae Insurance:ANTHEMPolic [id number] Community y Number: Hospital [id number] Repository Date:2225-35-94JB [address]FZ[address] [place] [address] 626[address]TQ: 04/23/2017 KASH Primary FELIX J HALLDOB: Tae [id number] JASMYN Insurance:MEDICARE [id number] [facility] Center 02893Try: (330) Number: Repository [phone] () [id number] Date:2013-05-21 04/23/2017 Secondary FELIX J HALLDOB: Gustine Insurance:[facility] [id number] Community y Number: Hospital [id number] Repository Date:3257-14-59FS [address] [place] [address]NB: 04/21/2017 TIGRE Thapa Primary FELIX J HALLDOB: Gustine [id number] JASMYN Insurance:MEDICARE [id number] [facility] 66233Yqb: (330) Number: Repository [phone] () [id number] Date:2013-05-21 04/21/2017 Secondary FELIX J HALLDOB: Gustine Insurance:[facility] [id number] Community y Number: Hospital [id number] Repository Date:4416-64-59SE [address] [place] [address] 634[address]EY: 04/16/2017 TIGRE Thapa Primary FELIX J HALLDOB: Tae [id number] JASMYN Insurance:MEDICARE [id number] Cleveland Heights Medical Center 98250Ira: (330) Number: Repository [phone] () [id number] Date:2013-05-21 04/16/2017 Secondary FELIX J HALLDOB: Gustine Insurance:[facility] [id number] Community y Number: Hospital [id number] Repository Date:1621-00-63OD [address] [place] [address] 530[address]YV: 04/14/2017 KASH Primary FELIX J HALLDOB: Gustine [id number] JASMYN Insurance:MEDICARE [id number] [facility] 50070Scg: (330) Number: Repository [phone] () [id number] Date:2013-05-21 04/14/2017 Secondary FELIX J HALLDOB: Gustine Insurance:ANTHEMPolic [id number] Community y Number: Hospital [id number] Repository Date:8109-96-82KQ [address] [place] [address] 925[address]UE: 04/09/2017 TIGRE Thapa Primary FELIX J HALLDOB: Tae [id number] JASMYN Insurance:MEDICARE [id number] [facility] Hospital A [facility] 22945Dmt: (330) Number: Repository [phone] () [id number] Date:2013-05-21 04/09/2017 Secondary FELIX J HALLDOB: Gustine Insurance:ANTHEMPolic [id number] Community y Number: Hospital [id number] Repository Date:4561-24-70NN [address]GBXYN[address] [place] [address] 94247JK: 04/06/2017 TIGRE Thapa Primary FELIX J HALLDOB: Tae [id number] JASMYN Insurance:MEDICARE [id number] Roanoke Memorial Hospital A [facility] 84901Brf: (330) Number: Repository [phone] () [id number] Date:2013-05-21 04/06/2017 Secondary FELIX J HALLDOB: Tae Insurance:ANTHEMPolic [id number] Community y Number: Hospital [id number] Repository Date:2791-13-51IC [address] [place] [address] 976[address]IE: 04/02/2017 TIGRE Thapa Primary FELIX J HALLDOB: Tae [id number] JASMYN Insurance:MEDICARE [id number] [facility] Center 20187Mea: (330) Number: Repository [phone] () [id number] Date:2013-05-21 04/02/2017 Secondary FELIX J HALLDOB: Gustine Insurance:ANTHEMPolic [id number] Community y Number: Hospital [id number] Repository Date:4238-40-79HQ [address] [place] [address] 96116ZC: 03/31/2017 KASH Primary FELIX J HALLDOB: Tae [id number] JASMYN Insurance:MEDICARE [id number] [facility] 32804Bkd: (330) Number: Repository [phone] () [id number] Date:2013-05-21 03/31/2017 Secondary FELIX J HALLDOB: Gustine Insurance:ANTHEMPolic [id number] Community y Number: Hospital [id number] Repository Date:3470-23-60HF [address] [place] [address] 23390EU: 03/31/2017 KASH Primary FELIX J HALLDOB: Tae [id number] JASMYN Insurance:MEDICARE [id number] [facility] Center 52384Mrv: (330) Number: Repository [phone] () [id number] Date:2013-05-21 03/31/2017 Secondary FELIX J HALLDOB: Gustine Insurance:ANTHEMPolic [id number] Community y Number: Hospital [id number] Repository Date:0751-04-55MI [address] [place] [address] 00696SC: 03/26/2017 KASH Primary FELIX J HALLDOB: Gustine [id number] JASMYN Insurance:MEDICARE [id number] [facility] Heights Medical Center 76289Vmi: (330) Number: Repository [phone] () [id number] Date:2013-05-21 03/26/2017 Secondary FELIX J HALLDOB: Tae Insurance:ANTHEMPolic [id number] Community y Number: Hospital [id number] Repository Date:4120-86-75XL [address]QOXZCRZ[address] [place] [address] 75531QB: 03/24/2017 KASH Primary FELIX J HALLDOB: Tae [id number] JASMYN Insurance:MEDICARE [id number] [facility] 33621Lhb: (330) Number: Repository [phone] () [id number] Date:2013-05-21 03/24/2017 Secondary FELIX J HALLDOB: Tae Insurance:[facility] [id number] Community y Number: Hospital [id number] Repository Date:3580-16-19UO [address] [place] [address] 96885GS: 03/19/2017 TIGRE Thapa Primary FELIX J HALLDOB: Tae [id number] JASMYN Insurance:MEDICARE [id number] [facility] 07272Ghx: (330) Number: Repository [phone] () [id number] Date:2013-05-21 03/19/2017 Secondary FELIX J HALLDOB: Tae Insurance:[facility] [id number] Community y Number: Hospital [id number] Repository Date:4315-38-28VV [address] [place] [address] 75488HH: 03/16/2017 TIGRE Thapa Primary FELIX J HALLDOB: Gustine [id number] JASMYN Insurance:MEDICARE [id number] [facility] 35661Olb: (330) Number: Repository [phone] () [id number] Date:2013-05-21 03/16/2017 Secondary FELIX J HALLDOB: Gustine Insurance:[facility] [id number] Community y Number: Hospital [id number] Repository Date:5103-99-91FR [address]AYCNTMC[address] [place] [address] 24926OC: 03/12/2017 KASH Primary FELIX J HALLDOB: Tae [id number] JASMYN Insurance:MEDICARE [id number] [facility] 35519Ztl: (330) Number: Repository [phone] () [id number] Date:2013-05-21 03/12/2017 Secondary FELIX J HALLDOB: Gustine Insurance:ANTHEMPolic [id number] Community y Number: Hospital [id number] Repository Date:6517-16-70PV [address]FDNWYZJ, [place] [address]JN: 03/09/2017 KASH Primary FELIX J HALLDOB: Gustine [id number] JASMYN Insurance:MEDICARE [id number] [facility] Center 72515Nsp: (330) Number: Repository [phone] () [id number] Date:2013-05-21 03/09/2017 Secondary FELIX J HALLDOB: Gustine Insurance:ANTHEMPolic [id number] Community y Number: Hospital [id number] Repository Date:4547-30-42TZ [address]JJYWEOD [place] [address]FG: 03/05/2017 TIGRE Thapa Primary FELIX J HALLDOB: Gustine [id number] JASMYN Insurance:MEDICARE [id number] Roanoke Memorial Hospital A [facility] 89608Btn: (330) Number: Repository [phone] () [id number] Date:2013-05-21 03/05/2017 Secondary FELIX J HALLDOB: Tae Insurance:ANTHEMPolic [id number] Community y Number: Hospital [id number] Repository Date:5651-42-59SR [address]LGRGZOK [place] [address]LL: 03/02/2017 TIGRE Thapa Primary FELIX J HALLDOB: Gustine [id number] JASMYN Insurance:MEDICARE [id number] [facility] 37949Zql: (330) Number: Repository [phone] () [id number] Date:2013-05-21 03/02/2017 Secondary FELIX J HALLDOB: Gustine Insurance:ANTHEMPolic [id number] Community y Number: Hospital [id number] Repository Date:6366-77-53OJ [address]WTOJP[address] [place] [address] 47608UL: 03/01/2017 KASH Primary FELIX J HALLDOB: Gustine [id number] JASMYN Insurance:MEDICARE [id number] [facility] 92893Kdd: (330) Number: Repository [phone] () [id number] Date:2013-05-21 03/01/2017 Secondary FELIX J HALLDOB: Tae Insurance:ANTHEMPolic [id number] Community y Number: Hospital [id number] Repository Date:6632-74-16PG [address] [place] [address] 15164SR: 02/23/2017 KASH Primary FELIX J HALLDOB: Tae [id number] JASMYN Insurance:MEDICARE [id number] Cleveland Heights Medical Center 80264Ynt: (330) Number: Repository [phone] () [id number] Date:2013-05-21 02/23/2017 Secondary FELIX J HALLDOB: Gustine Insurance:ANTHEMPolic [id number] Community y Number: Hospital [id number] Repository Date:8587-75-80DY [address] [place] [address] 97840LB: 02/19/2017 KASH Primary FELIX J HALLDOB: Gustine [id number] JASMYN Insurance:MEDICARE [id number] [facility] Heights Medical Center 40301Uha: (330) Number: Repository [phone] () [id number] Date:2013-05-21 02/19/2017 Secondary FELIX J HALLDOB: Tae Insurance:ANTHEMPolic [id number] Community y Number: Hospital [id number] Repository Date:0297-06-01LM [address]TDKJCGC[address] [place] [address] 27932VK: 02/16/2017 KASH Primary FELIX J HALLDOB: Tae [id number] JASMYN Insurance:MEDICARE [id number] [facility] Center 77442Plf: (330) Number: Repository [phone] () [id number] Date:2013-05-21 02/16/2017 Secondary FELIX J HALLDOB: Tae Insurance:[facility] [id number] Community y Number: Hospital [id number] Repository Date:0172-83-81LY [address] [place] [address] 93367BP: 02/12/2017 KASH Primary FELIX J HALLDOB: Gustine [id number] JASMYN Insurance:MEDICARE [id number] [facility] Heights Medical Center 59554Dkn: (330) Number: Repository [phone] () [id number] Date:2013-05-21 02/12/2017 Secondary FELIX J HALLDOB: Tae Insurance:[facility] [id number] Community y Number: Hospital [id number] Repository Date:1499-74-58UO [address] [place] [address] 26032YG: 02/10/2017 TIGRE Thapa Primary FELIX J HALLDOB: Gustine [id number] JASMYN Insurance:MEDICARE [id number] [facility] 66204Ndq: (330) Number: Repository [phone] () [id number] Date:2013-05-21 02/10/2017 Secondary FELIX J HALLDOB: Gustine Insurance:[facility] [id number] Community y Number: Hospital [id number] Repository Date:8581-06-88ND [address]DHKDM[address] [place] [address] 46907LG: 02/05/2017 KASH Primary FELIX J HALLDOB: Gustine [id number] JASMYN Insurance:MEDICARE [id number] [facility] Heights Medical Center 57339Mlk: (330) Number: Repository [phone] () [id number] Date:2013-05-21 02/05/2017 Secondary FELIX J HALLDOB: Gustine Insurance:ANTHEMPolic [id number] Community y Number: Hospital [id number] Repository Date:9154-41-42NQ [address]OCJXLLJ, [place] [address]WG: 02/02/2017 KASH Primary FELIX J HALLDOB: Gustine [id number] JASMYN Insurance:MEDICARE [id number] Roanoke Memorial Hospital A [facility] 51067Waa: (330) Number: Repository [phone] () [id number] Date:2013-05-21 02/02/2017 Secondary FELIX J HALLDOB: Tae Insurance:ANTHEMPolic [id number] Community y Number: Hospital [id number] Repository Date:9031-46-87HS [address]TUBEEZU [place] [address]RQ: 01/28/2017 TIGRE Thapa Primary FELIX J HALLDOB: Gustine [id number] JASMYN Insurance:MEDICARE [id number] Roanoke Memorial Hospital A [facility] 43969Bvi: (330) Number: Repository [phone] () [id number] Date:2013-05-21 01/28/2017 Secondary FELIX J HALLDOB: Tae Insurance:[employer]HE[employer]olic [id number] Community y Number: Hospital [id number] Repository Date:1365-78-67AS [address]YAHXGEJ, [place] [address]CU: 01/26/2017 TIGRE Thapa Primary FELIX J HALLDOB: Tae [id number] JASMYN Insurance:MEDICARE [id number] Cleveland Heights Medical Center 20193Nls: (330) Number: Repository [phone] () [id number] Date:2013-05-21 01/26/2017 Secondary FELIX J HALLDOB: Tae Insurance:ANTHEMPolic [id number] Community y Number: Hospital [id number] Repository Date:4520-67-06YR [address]KNQIFC[address] [place] [address] 67476UJ: 01/22/2017 KASH Primary FELIX J HALLDOB: Gustine [id number] JASMYN Insurance:MEDICARE [id number] Cleveland Heights Medical Center 40326Lda: (330) Number: Repository [phone] () [id number] Date:2013-05-21 01/22/2017 Secondary FELIX J HALLDOB: Tae Insurance:ANTHEMPolic [id number] Community y Number: Hospital [id number] Repository Date:4641-15-11LT [address] [place] [address] 32548WR: 01/19/2017 KASH Primary FELIX J HALLDOB: Gustine [id number] JASMYN Insurance:MEDICARE [id number] [facility] 82766Wme: (330) Number: Repository [phone] () [id number] Date:2013-05-21 01/19/2017 Secondary FELIX J HALLDOB: Gustine Insurance:ANTHEMPolic [id number] Community y Number: Hospital [id number] Repository Date:9437-56-26GR [address] [place] [address] 35952VY: 01/15/2017 KASH Primary FELIX J HALLDOB: Gustine [id number] JASMYN Insurance:MEDICARE [id number] [facility] Heights Medical Center 05044Dtn: (330) Number: Repository [phone] () [id number] Date:2013-05-21 01/15/2017 Secondary FELIX J HALLDOB: Gustine Insurance:ANTHEMPolic [id number] Community y Number: Hospital [id number] Repository Date:5428-84-65JH [address]AXOYXLN[address] [place] [address] 27722ZE: 01/12/2017 KASH Primary FELIX J HALLDOB: Tae [id number] JASMYN Insurance:MEDICARE [id number] [facility] Heights Medical Center 64036Qmi: (330) Number: Repository [phone] () [id number] Date:2013-05-21 01/12/2017 Secondary FELIX J HALLDOB: Gustine Insurance:[facility] [id number] Community y Number: Hospital [id number] Repository Date:9518-18-98JV [address] [place] [address] 09872SM: 01/08/2017 KASH Primary FELIX J HALLDOB: Gustine [id number] JASMYN Insurance:MEDICARE [id number] [facility] 53262Qjb: (330) Number: Repository [phone] () [id number] Date:2013-05-21 01/08/2017 Secondary FELIX J HALLDOB: Tae Insurance:[facility] [id number] Community y Number: Hospital [id number] Repository Date:0699-03-46UI [address] [place] [address] 48373VC: 01/06/2017 TIGRE Thapa Primary FELIX J HALLDOB: Tae [id number] JASMYN Insurance:MEDICARE [id number] Cleveland Heights [facility] Center 16050Exy: (330) Number: Repository [phone] () [id number] Date:2013-05-21 01/06/2017 Secondary FELIX J HALLDOB: Tae Insurance:[facility] [id number] Community y Number: Hospital [id number] Repository Date:5906-86-10EN [address]FTF[address] [place] [address] 29118OS: 01/01/2017 KASH Primary FELIX J HALLDOB: Tae [id number] JASMYN Insurance:MEDICARE [id number] [facility] Heights [facility] Center 43945Ibd: (330) Number: Repository [phone] () [id number] Date:2013-05-21 01/01/2017 Secondary FELIX J HALLDOB: Tae Insurance:[employer]HE[place]olic [id number] Community y Number: Hospital [id number] Repository Date:4860-96-69GQ [address]DUWXUML, [place] [address]HM: 12/29/2016 KASH Primary FELIX J HALLDOB: Gustine [id number] JASMYN Insurance:MEDICARE [id number] Roanoke [facility] Hospital A [facility] 06125Ouk: (330) Number: Repository [phone] () [id number] Date:2013-05-21 12/29/2016 Secondary FELIX J HALLDOB: Gustine Insurance:[employer]HE[employer]olic [id number] Community y Number: Hospital [id number] Repository Date:1298-06-96VM [address]EBCRIVG [place] [address]YY: 12/24/2016 TIGRE Thapa Primary FELIX J HALLDOB: Gustine [id number] JASMYN Insurance:MEDICARE [id number] Roanoke Memorial Hospital A [facility] 05671Gvn: (330) Number: Repository [phone] () [id number] Date:2013-05-21 12/24/2016 Secondary FELIX J HALLDOB: Gustine Insurance:[employer]olic [id number] Community y Number: Hospital [id number] Repository Date:8497-01-46WX [address]LNEQCOZ [place] [address]SD: 12/23/2016 TIGRE Thapa Primary FELIX J HALLDOB: Gustine [id number] JASMYN Insurance:MEDICARE [id number] [facility] Heights [facility] Center 19551Rib: (330) Number: Repository [phone] () [id number] Date:2013-05-21 12/23/2016 Secondary FELIX J HALLDOB: Tae Insurance:[employer]HE[employer] [id number] Community y Number: Hospital [id number] Repository Date:8452-14-19[id number] [place] [address] 713[address]WZ: 12/18/2016 KASH Primary FELIX J HALLDOB: Gustine [id number] JASMYN Insurance:MEDICARE [id number] [address]Wiy: (330) Number: Repository [phone] () [id number] Date:2013-05-21 12/18/2016 Secondary FELIX J HALLDOB: Tae Insurance:[employer]HE[employer]olic [id number] Community y Number: Hospital [id number] Repository Date:0441-92-11RT [address] [place] [address] 84614XW: 12/16/2016 KASH Primary FELIX J HALLDOB: Tae [id number] JASMYN Insurance:MEDICARE [id number] [id number]: (330) Number: Repository [phone] () [id number] Date:2013-05-21 12/16/2016 Secondary FELIX J HALLDOB: Tae Insurance:[employer]HE[employer]olic [id number] Community y Number: Hospital [id number] Repository Date:9643-41-55[address] [place] [address] 25859IM: 12/11/2016 KASH Primary FELIX J HALLDOB: Tae [id number] JASMYN Insurance:MEDICARE [id number] [id number]: (330) Number: Repository [phone] () [id number] Date:2013-05-21 12/11/2016 Secondary FELIX J HALLDOB: Gustine Insurance:ANTHE[employer]olic [id number] Community y Number: Hospital [id number] Repository Date:8483-71-12[id number] [place] [address] 51033IZ: 12/08/2016 KASH Primary FELIX J HALLDOB: Gustine [id number] JASMYN Insurance:MEDICARE [id number] [address]Lug: (330) Number: Repository [phone] () [id number] Date:2013-05-21 12/08/2016 Secondary FELIX J HALLDOB: Gustine Insurance:[facility] [id number] Community y Number: Hospital [id number] Repository Date:0669-92-40OB [address] [place] [address] 76464RB: 12/04/2016 KASH Primary FELIX J HALLDOB: Tae [id number] JASMYN Insurance:MEDICARE [id number] [id number]: (330) Number: Repository [phone] () [id number] Date:2013-05-21 12/04/2016 Secondary FELIX J HALLDOB: Tae Insurance:[facility] [id number] Community y Number: Hospital [id number] Repository Date:0722-01-36FT [address] [place] [address] 25058ZH: 12/01/2016 TIGRE Thapa Primary FELIX J HALLDOB: Gustine [id number] JASMYN Insurance:MEDICARE [id number] [id number]: (330) Number: Repository [phone] () [id number] Date:2013-05-21 12/01/2016 Secondary FELIX J HALLDOB: Tae [facility] [facility] [id number] Community y Number: Hospital [id number] Repository Date:4547-56-52RS [address] [place] [address] 63956VL: 11/27/2016 KASH Primary FELIX J HALLDOB: Tae [id number] JASMYN Insurance:MEDICARE [id number] [facility] 42412Gpk: (330) Number: Repository [phone] () [id number] Date:2013-05-21 11/27/2016 Secondary FELIX J HALLDOB: Gustine Insurance:ANTHEMPolic [id number] Community y Number: Hospital [id number] Repository Date:5181-72-21DS [address]QDEGJXJ, [place] [address]RV: 11/25/2016 KASH Primary FELIX J HALLDOB: Tae [id number] JSAMYN Insurance:MEDICARE [id number] 18569Iox: (330) Number: Repository [phone] () [id number] Date:2013-05-21 11/25/2016 Secondary FELIX J HALLDOB: Tae Insurance:ANTHEMPolic [id number] Community y Number: Hospital [id number] Repository Date:2258-06-40JT [address]OTD[address] [place] [address]TH: 11/20/2016 TIGRE Thapa Primary FELIX J HALLDOB: Gustine [id number] JASMYN Insurance:MEDICARE [id number] [facility] 80119Www: (330) Number: Repository [phone] () [id number] Date:2013-05-21 11/20/2016 Secondary FELIX J HALLDOB: Tae Insurance:ANTHEMPolic [id number] Community y Number: Hospital [id number] Repository Date:1991-76-51DN [address]WZCQBZG [place] [address]RY: 11/17/2016 TIGRE Thapa Primary FELIX J HALLDOB: Tae [id number] JASMYN Insurance:MEDICARE [id number] [facility] 56419Hfz: (330) Number: Repository [phone] () [id number] Date:2013-05-21 11/17/2016 Secondary FELIX J HALLDOB: Gustine Insurance:ANTHEMPolic [id number] Community y Number: Hospital [id number] Repository Date:8410-29-08TG [address] [place] [address] 09759XV: 11/12/2016 KASH Primary FELIX J HALLDOB: Tae [id number] JASMYN Insurance:MEDICARE [id number] [facility] 90756Uhv: (330) Number: Repository [phone] () [id number] Date:2013-05-21 11/12/2016 Secondary FELIX J HALLDOB: Tae Insurance:ANTHEMPolic [id number] Community y Number: Hospital [id number] Repository Date:1824-46-35WP [address] [place] [address] 46307FL: 11/10/2016 KASH Primary FELIX J HALLDOB: Gustine [id number] JASMYN Insurance:MEDICARE [id number] [facility] 19140Frn: (330) Number: Repository [phone] () [id number] Date:2013-05-21 11/10/2016 Secondary FELIX J HALLDOB: Tae Insurance:ANTHEMPolic [id number] Community y Number: Hospital [id number] Repository Date:5426-01-22AC [address] [place] [address] 13238EM: 11/05/2016 KASH Primary FELIX J HALLDOB: Tae [id number] JASMYN Insurance:MEDICARE [id number] [facility] 71960Npl: (330) Number: Repository [phone] () [id number] Date:2013-05-21 11/05/2016 Secondary FELIX J HALLDOB: Gustine Insurance:ANTHEMPolic [id number] Community y Number: Hospital [id number] Repository Date:2760-91-60TI [address] [place] [address] 91031LV: 11/03/2016 KASH Primary FELIX J HALLDOB: Gustine [id number] JASMYN Insurance:MEDICARE [id number] [facility] 15444Ucb: (330) Number: Repository [phone] () [id number] Date:2013-05-21 11/03/2016 Secondary FELIX J HALLDOB: Tae Insurance:[facility] [id number] Community y Number: Hospital [id number] Repository Date:6886-14-63OP [address] [place] [address] 08923FA: 10/30/2016 KASH Primary FELIX J HALLDOB: Gustine [id number] JASMYN Insurance:MEDICARE [id number] [facility] Center 91448Wip: (330) Number: Repository [phone] () [id number] Date:2013-05-21 10/30/2016 Secondary FELIX J HALLDOB: Tae Insurance:[facility] [id number] Community y Number: Hospital [id number] Repository Date:6460-83-39FH [address] [place] [address] 62066HD: 10/28/2016 TIGRE Thapa Primary FELIX J HALLDOB: Gustine [id number] JASMYN Insurance:MEDICARE [id number] [facility] Center 26307Guf: (330) Number: Repository [phone] () [id number] Date:2013-05-21 10/28/2016 Secondary FELIX J HALLDOB: Tae Insurance:[facility] [id number] Community y Number: Hospital [id number] Repository Date:2763-20-16LR [address] [place] [address] 89828CB: 10/23/2016 KASH Primary FELIX J HALLDOB: Tae [id number] JASMYN Insurance:MEDICARE [id number] [facility] Center 75714Zei: (330) Number: Repository [phone] () [id number] Date:2013-05-21 10/23/2016 Secondary FELIX J HALLDOB: Gustine Insurance:ANTHEMPolic [id number] Community y Number: Hospital [id number] Repository Date:9996-72-75ZL [address]MSQTBRE, [place] [address]LR: 10/20/2016 KASH Primary FELIX J HALLDOB: Gustine [id number] JASMYN Insurance:MEDICARE [id number] Roanoke Memorial Hospital A [facility] 39969Hpe: (330) Number: Repository [phone] () [id number] Date:2013-05-21 10/20/2016 Secondary FELIX J HALLDOB: Tae Insurance:ANTHEMPolic [id number] Community y Number: Hospital [id number] Repository Date:4754-50-71MK [address]WEIRMDK [place] [address]HG: 10/16/2016 TIGRE Thapa Primary FELIX J HALLDOB: Gustine [id number] JASMYN Insurance:MEDICARE [id number] Roanoke Memorial Hospital A [facility] 14711Cws: (330) Number: Repository [phone] () [id number] Date:2013-05-21 10/16/2016 Secondary FELIX J HALLDOB: Tae Insurance:ANTHEMPolic [id number] Community y Number: Hospital [id number] Repository Date:1834-83-11SD [address]MUAAXWU [place] [address]BR: 10/13/2016 TIGRE Thapa Primary FELIX J HALLDOB: Gustine [id number] JASMYN Insurance:MEDICARE [id number] [facility] 34343Aew: (330) Number: Repository [phone] () [id number] Date:2013-05-21 10/13/2016 Secondary FELIX J HALLDOB: Gustine Insurance:ANTHEMPolic [id number] Community y Number: Hospital [id number] Repository Date:3965-30-00PU [address]QHYU[address] [place] [address] 81244VB: 10/09/2016 KASH Primary FELIX J HALLDOB: Tae [id number] JASMYN Insurance:MEDICARE [id number] [facility] 50324Ecl: (330) Number: Repository [phone] () [id number] Date:2013-05-21 10/09/2016 Secondary FELIX J HALLDOB: Gustine Insurance:ANTHEMPolic [id number] Community y Number: Hospital [id number] Repository Date:9666-11-66WK [address] [place] [address] 87153SK: 10/06/2016 KASH Primary FELIX J HALLDOB: Tae [id number] JASMYN Insurance:MEDICARE [id number] [facility] Center 38934Rwz: (330) Number: Repository [phone] () [id number] Date:2013-05-21 10/06/2016 Secondary FELIX J HALLDOB: Tae Insurance:ANTHEMPolic [id number] Community y Number: Hospital [id number] Repository Date:6202-91-62FO [address] [place] [address] 51903NQ: 10/02/2016 KASH Primary FELIX J HALLDOB: Gustine [id number] JASMYN Insurance:MEDICARE [id number] [facility] Heights Medical Center 77592Zai: (330) Number: Repository [phone] () [id number] Date:2013-05-21 10/02/2016 Secondary FELIX J HALLDOB: Tae Insurance:ANTHE[employer]olic [id number] Community y Number: Hospital [id number] Repository Date:0056-87-08OL [address]XVSXO[address] [place] [address] 49324SZ: 09/29/2016 KASH Primary FELIX J HALLDOB: Gustine [id number] JASMYN Insurance:MEDICARE [id number] [facility] 98099Gqb: (330) Number: Repository [phone] () [id number] Date:2013-05-21 09/29/2016 Secondary FELIX J HALLDOB: Gustine Insurance:[facility] [id number] Community y Number: Hospital [id number] Repository Date:2120-61-25BQ [address] [place] [address] 95802SM: 09/25/2016 TIGRE Thapa Primary FELIX J HALLDOB: Tae [id number] JASMYN Insurance:MEDICARE [id number] [facility] 48834Wcf: (330) Number: Repository [phone] () [id number] Date:2013-05-21 09/25/2016 Secondary FELIX J HALLDOB: Gustine Insurance:[facility] [id number] Community y Number: Hospital [id number] Repository Date:0293-58-99WB [address] [place] [address] 66997NC: 09/22/2016 TIGRE Thapa Primary FELIX J HALLDOB: Tae [id number] JASMYN Insurance:MEDICARE [id number] [facility] Heights Medical Center 68498Bnl: (330) Number: Repository [phone] () [id number] Date:2013-05-21 09/22/2016 Secondary FELIX J HALLDOB: Gustine Insurance:[facility] [id number] Community y Number: Hospital [id number] Repository Date:0357-41-13OO [address]BPBQR[address] [place] [address] 08456MC: 09/18/2016 KASH Primary FELIX J HALLDOB: Tae [id number] JASMYN Insurance:MEDICARE [id number] [facility] Heights [facility] Center 86903Jja: (330) Number: Repository [phone] () [id number] Date:2013-05-21 09/18/2016 Secondary FELIX J HALLDOB: Gustine Insurance:ANTHEMPolic [id number] Community y Number: Hospital [id number] Repository Date:6348-66-16FV [address]HDXHKHD, [place] [address]MG: 09/15/2016 KASH Primary FELIX J HALLDOB: Tae [id number] JASMYN Insurance:MEDICARE [id number] [facility] 84607Yvj: (330) Number: Repository [phone] () [id number] Date:2013-05-21 09/15/2016 Secondary FELIX J HALLDOB: Tae Insurance:ANTHE[employer]olic [id number] Community y Number: Hospital [id number] Repository Date:7179-57-26MH [address]PFKBXVX, [place] [address]DD: 09/11/2016 TIGRE Thapa Primary FELIX J HALLDOB: Gustine [id number] JASMYN Insurance:MEDICARE [id number] [facility] Center 53800Txs: (330) Number: Repository [phone] () [id number] Date:2013-05-21 09/11/2016 Secondary FELIX J HALLDOB: Tae Insurance:ANTHE[employer]olic [id number] Community y Number: Hospital [id number] Repository Date:3675-85-86SX [address]XMYMHSX [place] [address]YN: 09/09/2016 TIGRE Thapa Primary FELIX J HALLDOB: Gustine [id number] JASMYN Insurance:MEDICARE [id number] [facility] 10301Yvb: (330) Number: Repository [phone] () [id number] Date:2013-05-21 09/09/2016 Secondary FELIX J HALLDOB: Gustine Insurance:ANTHE[employer]olic [id number] Community y Number: Hospital [id number] Repository Date: [address]PPKWIJP, [place] [address]SU: 09/04/2016 TIGRE Thapa Primary FELIX J HALLDOB: Gustine [id number] JASMYN Insurance:MEDICARE [id number] 60462Jjw: (330) Number: Repository [phone] () [id number] Date:2013-05-21 09/04/2016 Secondary FELIX J HALLDOB: Gustine Insurance:ANTHEMPolic [id number] Community y Number: Hospital [id number] Repository Date:[address] [place] [address] 67269VF: 09/01/2016 TIGRE Thapa Primary FELIX J HALLDOB: Gustine [id number] JASMYN Insurance:MEDICARE [id number] Roanoke Memorial Hospital A [facility] 97069Zis: (330) Number: Repository [phone] () [id number] Date:2013-05-21 09/01/2016 Secondary FELIX J HALLDOB: Tae Insurance:ANTHE[employer]olic [id number] Community y Number: Hospital [id number] Repository Date:[address] [place] [address] 71468JG: 08/28/2016 TIGRE Thapa Primary FELIX J HALLDOB: Gustine [id number] JASMYN Insurance:MEDICARE [id number] Roanoke Memorial Hospital A [facility] 79176Twj: (330) Number: Repository [phone] () [id number] Date:2013-05-21 08/28/2016 Secondary FELIX J HALLDOB: Tae Insurance:ANTHE[employer]olic [id number] Community y Number: Hospital [id number] Repository Date:[address] [place] [address] 62783DJ: 08/26/2016 TIGRE Thapa Primary FELIX J HALLDOB: Tae [id number] JASMYN Insurance:MEDICARE [id number] Roanoke Memorial Hospital A [facility] 54829Lzy: (330) Number: Repository [phone] () [id number] Date:2013-05-21 08/26/2016 Secondary FELIX J HALLDOB: Gustine [facility] [id number] Community y Number: Hospital [id number] Repository Date: [address]KJMIH[address] [place] [address] 37082XR: 08/21/2016 KASH Primary FELIX J HALLDOB: Gustine [id number] JASMYN Insurance:MEDICARE [id number] [facility] 79072Efn: (330) Number: Repository [phone] () [id number] Date:2013-05-21 08/21/2016 Secondary FELIX J HALLDOB: Gustine Insurance:[facility] [id number] Community y Number: Hospital [id number] Repository Date: [address]ILK[address] [place] [address] 42112LH: 08/18/2016 KASH Primary FELIX J HALLDOB: Tae [id number] JASMYN Insurance:MEDICARE [id number] [facility] 28159Bms: (330) Number: Repository [phone] () [id number] Date:2013-05-21 08/18/2016 Secondary FELIX J HALLDOB: Tae Insurance:[facility] [id number] Community y Number: Hospital [id number] Repository Date:[address]CYKXKFM[address] [place] [address] 51407LN: 08/11/2016 KASH Primary FELIX J HALLDOB: Tae [id number] JASMYN Insurance:MEDICARE [id number] [facility] Heights [facility] Center 46139Ftx: (330) Number: Repository [phone] () [id number] Date:2013-05-21 08/11/2016 Secondary FELIX J HALLDOB: Gustine Insurance:[facility] [id number] Community y Number: Hospital [id number] Repository Date:[address]KLVPXWT, [place] [address]AF: 08/07/2016 TIGRE Thapa Primary FELIX J HALLDOB: Tae [id number] JASMYN Insurance:MEDICARE [id number] [facility] 27489Dgw: (330) Number: Repository [phone] () [id number] Date:2013-05-21 08/07/2016 Secondary FELIX J HALLDOB: Gustine [facility] [id number] Community y Number: Hospital [id number] Repository Date:[address]UR[address] [place] [address] 65136YA: 08/05/2016 TIGRE Thapa Primary FELIX J HALLDOB: Tae [id number] JASMYN Insurance:MEDICARE [id number] [facility] 82852Nei: (330) Number: Repository [phone] () [id number] Date:2013-05-21 08/05/2016 Secondary FELIX J HALLDOB: Tae [facility] [id number] Community y Number: Hospital [id number] Repository Date:[address]SGYAM[address] [place] [address] 68344ES: 07/31/2016 TIGRE Thapa Primary FELIX J HALLDOB: Gustine [id number] JASMYN Insurance:MEDICARE [id number] [place] [facility] 11206Dsc: (330) Number: Repository [phone] () [id number] Date:2013-05-21 07/31/2016 Secondary FELIX J HALLDOB: Tae Insurance:[facility] [id number] Community y Number: Hospital [id number] Repository Date:[address]FOVZTBY[address] [place] [address] 08307LC: 07/29/2016 TIGRE Thapa Primary FELIX J HALLDOB: Tae [id number] JASMYN Insurance:MEDICARE [id number] [facility] 11235Xch: (330) Number: Repository [phone] () [id number] Date:2013-05-21 07/29/2016 Secondary FELIX J HALLDOB: Gustine Insurance:[facility] [id number] Community y Number: Hospital [id number] Repository Date:[address]QESJD[address] [place] [address] 56352KR: 07/24/2016 KASH Primary FELIX J HALLDOB: Gustine [id number] JASMYN Insurance:MEDICARE [id number] [facility] Center 71434Kzc: (330) Number: Repository [phone] () [id number] Date:2013-05-21 07/24/2016 Secondary FELIX J HALLDOB: Gustine Insurance:[facility] [id number] Community y Number: Hospital [id number] Repository Date:[address]SWVTJFZ[address] [place] [address] 28262LX: 07/21/2016 KASH Primary FELIX J HALLDOB: Tae [id number] JASMYN Insurance:MEDICARE [id number] [facility] 57953Ejz: (330) Number: Repository [phone] () [id number] Date:2013-05-21 07/21/2016 Secondary FELIX J HALLDOB: Gustine Insurance:[facility] [id number] Community y Number: Hospital [id number] Repository Date:[address]XGUBVW[address] [place] [address] 95378ZW:
== END ==
PROVIDERS: Family Provider Nurse Practitioner; PCP Nurse Practitioner; Visit Provider Psychiatry & Neurology Neurology
DX: E71.314 Muscle carnitine palmitoyltransferase deficiency (principal)
CPT/HCPCS: 96365; 96366; J7050; A4216

== ENCOUNTER → 2017-08-12 10:01 | Outpatient (CLI) | payer MEDICARE, BC, SELFPAY ==
[2017-08-12 10:11] VITALS: BP 142/72; PULSE 78; RESP 16; TEMP 36.5; O2SAT 98; BMI 33.1
[2017-08-12 10:30] LABS: Absolute Neutrophil Count 2.5 X10^3/uL (2.0-7.7); Basophil# 0.02 X10^3/uL; Basophil% 0.4 % (0-1); Eosinophils% 2.2 % (0-5); Hematocrit 39.5 % (37-47); Hemoglobin 12.9 g/dl (12.0-15.0); Lymphocyte % 32.7 % (19-41); Mean Corp Hgb Conc 32.7 g/gl (32-36); Mean Corpuscular Hgb 31.4 pg (27.0-32.0); Mean Corpuscular Volume 96.1 fL (81-99); Mean Platelet Vol. 9.5 fl (6.2-12.0); Monocyte# 0.52 X10^3/uL; Monocyte% 11.3 % (0-10); Neutrophil # 2.45 X10^3/uL (2.7-7.7); Neutrophil % 53.4 % (47-70); Platelet Count 264 K/mm3 (150-450); RBC Distribution Width CV 13.3 % (11.6-14.6); RBC Distribution Width SD 45.7 fl (35.1-43.9); Red Blood Count 4.11 M/mm3 (4.2-5.4); White Blood Count 4.6 K/mm3 (4.4-11.0)
[2017-08-12 10:32] LABS: POSITIVE COUNT NO; POSITIVE DIFFERENTIAL NO; POSITIVE MORPHOLOGY NO
[2017-08-12 10:45] LABS: ALB/GLOB Ratio 0.9 RATIO (0.9-2.4); AST(SGOT) 15 U/L (15-37); Alanine Aminotransfer ALT/SGPT 27 U/L (13-56); Albumin, Serum 3.1 g/dL (3.2-5.0); Alkaline Phosphatase 68 U/L (45-117); Anion Gap 7 (5-15); BUN 19 mg/dL (7-18); Calcium,Total 8.1 mg/dL (8.5-10.1); Chloride 106 mmol/L (98-107); Creatinine, Serum 0.63 mg/dL (0.55-1.02); EST Glomerular Filtration Rate 99 mL/min (>60); Est Glom Filt Rate - Afr Amer 120 mL/min (>60); Estimated Creatinine Clearance 47.78 ml/min; Globulin 3.6 g/dL (2.2-4.2); Glucose 131 mg/dL (74-106); Potassium 3.6 mmol/L (3.5-5.1); Protein, Total 6.7 g/dL (6.4-8.2); Sodium Level 141 mmol/L (136-145)
== END ==
PROVIDERS: Internal Medicine Rheumatology; Family Provider Nurse Practitioner; PCP Nurse Practitioner; Visit Provider Psychiatry & Neurology Neurology
DX: E71.314 Muscle carnitine palmitoyltransferase deficiency (principal); M06.4 Inflammatory polyarthropathy; M79.7 Fibromyalgia; M75.42 Impingement syndrome of left shoulder; G47.33 Obstructive sleep apnea (adult) (pediatric); Z79.899 Other long term (current) drug therapy
CPT/HCPCS: 96365 ×2; 36591; 80053; 85025; J7050; A4216

== ENCOUNTER → 2017-08-13 10:01 | Outpatient (CLI) | payer MEDICARE, BC, SELFPAY ==
[2017-08-13 10:16] VITALS: BP 131/72; PULSE 66; RESP 16; TEMP 36.9; O2SAT 96; BMI 33.1
[2017-08-13 14:16] VITALS: BP 150/75; PULSE 66; RESP 18; O2SAT 96
== END ==
PROVIDERS: Family Provider Nurse Practitioner; PCP Nurse Practitioner; Visit Provider Psychiatry & Neurology Neurology
DX: E71.314 Muscle carnitine palmitoyltransferase deficiency (principal)
CPT/HCPCS: 96365 ×2; J7040; J7050; A4216

== ENCOUNTER → 2017-08-17 09:52 | Outpatient (CLI) | payer MEDICARE, BC, SELFPAY ==
[2017-08-17 10:15] VITALS: BP 116/68; PULSE 81; RESP 16; TEMP 36.3; O2SAT 98; BMI 33.1
[2017-08-17 14:06] VITALS: BP 139/88; PULSE 64; RESP 18; TEMP 35.6; O2SAT 100
== END ==
PROVIDERS: Family Provider Nurse Practitioner; PCP Nurse Practitioner; Visit Provider Psychiatry & Neurology Neurology
DX: E71.314 Muscle carnitine palmitoyltransferase deficiency (principal)
CPT/HCPCS: 96365 ×2; J7050; A4216

== ENCOUNTER → 2017-08-24 10:12 | Outpatient (CLI) | payer MEDICARE, BC, SELFPAY ==
[2017-08-24 10:17] VITALS: BP 137/92; PULSE 67; RESP 16; TEMP 36.4; O2SAT 97
[2017-08-24 14:07] VITALS: BP 157/69; PULSE 64; RESP 16; TEMP 36.4; O2SAT 95
== END ==
PROVIDERS: Family Provider Nurse Practitioner; PCP Nurse Practitioner; Visit Provider Psychiatry & Neurology Neurology
DX: E71.40 Disorder of carnitine metabolism, unspecified (principal)
CPT/HCPCS: 96365 ×2; J7050; A4216

== ENCOUNTER → 2017-08-27 09:57 | Outpatient (CLI) | payer MEDICARE, BC, SELFPAY ==
[2017-08-27 10:33] VITALS: BP 143/71; PULSE 62; RESP 18; TEMP 35.8; O2SAT 96; BMI 33.1
== END ==
PROVIDERS: Family Provider Nurse Practitioner; PCP Nurse Practitioner; Visit Provider Psychiatry & Neurology Neurology
DX: E71.314 Muscle carnitine palmitoyltransferase deficiency (principal)
CPT/HCPCS: 96365 ×2; J7050; A4216

== ENCOUNTER → 2017-09-03 09:53 | Outpatient (CLI) | payer MEDICARE, BC, SELFPAY ==
[2017-09-03 10:18] VITALS: BP 138/75; PULSE 57; RESP 16; TEMP 36.7; O2SAT 97; BMI 33.1
[2017-09-03 14:21] VITALS: BP 151/74; PULSE 59; RESP 18; O2SAT 60
== END ==
PROVIDERS: Family Provider Nurse Practitioner; PCP Nurse Practitioner; Visit Provider Psychiatry & Neurology Neurology
DX: E71.314 Muscle carnitine palmitoyltransferase deficiency (principal)
CPT/HCPCS: 96365 ×2; J7050; A4216

== ENCOUNTER → 2017-09-07 10:15 | Outpatient (CLI) | payer MEDICARE, BC, SELFPAY ==
[2017-09-07 10:18] VITALS: BP 133/86; PULSE 70; RESP 16; TEMP 36.9; O2SAT 97; BMI 33.1
== END ==
PROVIDERS: Family Provider Nurse Practitioner; PCP Nurse Practitioner; Visit Provider Psychiatry & Neurology Neurology
DX: E71.314 Muscle carnitine palmitoyltransferase deficiency (principal)
CPT/HCPCS: 96365 ×2; J7050; A4216

== ENCOUNTER → 2017-09-10 10:00 | Outpatient (CLI) | payer MEDICARE, BC, SELFPAY ==
[2017-09-10 10:21] VITALS: BP 134/70; PULSE 59; RESP 16; TEMP 36.5; O2SAT 96; BMI 33.1
[2017-09-10 14:05] VITALS: BP 154/70; PULSE 61; RESP 16; TEMP 36.6; O2SAT 97
== END ==
PROVIDERS: Family Provider Nurse Practitioner; PCP Nurse Practitioner; Visit Provider Psychiatry & Neurology Neurology
DX: E71.314 Muscle carnitine palmitoyltransferase deficiency (principal)
CPT/HCPCS: 96365 ×2; J7050; A4216

== ENCOUNTER → 2017-09-14 10:12 | Outpatient (CLI) | payer MEDICARE, BC, SELFPAY ==
[2017-09-14 10:26] VITALS: BP 147/72; PULSE 62; RESP 16; TEMP 36.7; O2SAT 97
== END ==
PROVIDERS: Family Provider Nurse Practitioner; PCP Nurse Practitioner; Visit Provider Psychiatry & Neurology Neurology
DX: E71.314 Muscle carnitine palmitoyltransferase deficiency (principal)
CPT/HCPCS: 96365 ×2; J7050; A4216

== ENCOUNTER → 2017-09-17 09:59 | Outpatient (CLI) | payer MEDICARE, BC, SELFPAY ==
[2017-09-17 10:19] VITALS: BP 140/76; PULSE 79; RESP 16; TEMP 36.3; BMI 33.1
[2017-09-17 14:09] VITALS: BP 151/75; PULSE 59; RESP 16; TEMP 36.3; O2SAT 98
== END ==
PROVIDERS: Family Provider Nurse Practitioner; PCP Nurse Practitioner; Visit Provider Psychiatry & Neurology Neurology
DX: E71.314 Muscle carnitine palmitoyltransferase deficiency (principal)
CPT/HCPCS: 96365 ×2; J7050; A4216

== ENCOUNTER → 2017-09-21 10:01 | Outpatient (CLI) | payer MEDICARE, BC, SELFPAY ==
[2017-09-21 10:05] VITALS: BP 147/79; PULSE 60; RESP 16; TEMP 36.6; O2SAT 97
[2017-09-21 13:50] VITALS: BP 142/81; PULSE 76; RESP 16; TEMP 36.6; O2SAT 97
== END ==
PROVIDERS: Family Provider Nurse Practitioner; PCP Nurse Practitioner; Visit Provider Psychiatry & Neurology Neurology
DX: E71.314 Muscle carnitine palmitoyltransferase deficiency (principal)
CPT/HCPCS: 96365 ×2; J7050; A4216

== ENCOUNTER → 2017-09-28 09:58 | Outpatient (CLI) | payer BC, MEDICARE, SELFPAY | PROVIDERS: Family Provider Nurse Practitioner; PCP Nurse Practitioner; Visit Provider Psychiatry & Neurology Neurology | DX: Z53.9 Procedure and treatment not carried out, unspecified reason (principal) | CPT/HCPCS: J7050 ==

== ENCOUNTER → 2017-09-28 10:26 | Outpatient (CLI) | payer MEDICARE, BC, SELFPAY ==
[2017-09-28 10:33] VITALS: BP 128/71; PULSE 66; RESP 16; TEMP 36.8; BMI 34.2
[2017-09-28 14:00] VITALS: BP 149/70; PULSE 65; TEMP 36.9
== END ==
PROVIDERS: Family Provider Nurse Practitioner; PCP Nurse Practitioner; Visit Provider Psychiatry & Neurology Neurology
DX: E71.314 Muscle carnitine palmitoyltransferase deficiency (principal)
CPT/HCPCS: 96365 ×2; J7050; A4216

== ENCOUNTER → 2017-10-01 10:02 | Outpatient (CLI) | payer MEDICARE, BC, SELFPAY ==
[2017-10-01 10:04] VITALS: BP 177/95; PULSE 69; RESP 16; TEMP 36.4; O2SAT 94; BMI 34.1
[2017-10-01 13:56] VITALS: BP 151/76; PULSE 60; RESP 16; TEMP 36.8; O2SAT 96
== END ==
PROVIDERS: Family Provider Nurse Practitioner; PCP Nurse Practitioner; Visit Provider Psychiatry & Neurology Neurology
DX: E71.314 Muscle carnitine palmitoyltransferase deficiency (principal)
CPT/HCPCS: 96365 ×2; J7050; A4216

== ENCOUNTER → 2017-10-05 09:54 | Outpatient (CLI) | payer MEDICARE, BC, SELFPAY ==
[2017-10-05 10:07] VITALS: BP 144/78; PULSE 67; RESP 16; TEMP 36.2; O2SAT 99; BMI 34.1
[2017-10-05 13:50] VITALS: BP 138/72; PULSE 61; RESP 16; TEMP 37.2; O2SAT 95
== END ==
PROVIDERS: Family Provider Nurse Practitioner; PCP Nurse Practitioner; Visit Provider Psychiatry & Neurology Neurology
DX: E71.314 Muscle carnitine palmitoyltransferase deficiency (principal)
CPT/HCPCS: 96365 ×2; J7050

== ENCOUNTER → 2017-10-08 13:56 | Outpatient (CLI) | payer MEDICARE, BC, SELFPAY ==
[2017-10-08 13:59] VITALS: BP 134/81; PULSE 64; RESP 16; TEMP 36.7; O2SAT 98; BMI 34.1
== END ==
PROVIDERS: Family Provider Nurse Practitioner; PCP Nurse Practitioner; Visit Provider Psychiatry & Neurology Neurology
DX: E71.314 Muscle carnitine palmitoyltransferase deficiency (principal)
CPT/HCPCS: 96365; J7050; A4216

== ENCOUNTER → 2017-10-12 10:01 | Outpatient (CLI) | payer MEDICARE, BC, SELFPAY ==
[2017-10-12 10:03] VITALS: BP 108/60; PULSE 65; RESP 16; TEMP 36.7; O2SAT 97; BMI 34.1
== END ==
PROVIDERS: Family Provider Nurse Practitioner; PCP Nurse Practitioner; Visit Provider Psychiatry & Neurology Neurology
DX: E71.314 Muscle carnitine palmitoyltransferase deficiency (principal)
CPT/HCPCS: 96365 ×2; J7050; A4216

== ENCOUNTER → 2017-10-19 09:56 | Outpatient (CLI) | payer MEDICARE, BC, SELFPAY ==
[2017-10-19 10:00] VITALS: BP 142/72; PULSE 66; RESP 18; TEMP 36.9; O2SAT 97; BMI 34.1
[2017-10-19 13:59] VITALS: BP 132/79; PULSE 67; RESP 16; O2SAT 97
== END ==
PROVIDERS: Family Provider Nurse Practitioner; PCP Nurse Practitioner; Visit Provider Psychiatry & Neurology Neurology
DX: E71.314 Muscle carnitine palmitoyltransferase deficiency (principal)
CPT/HCPCS: 96365 ×2; J7050; A4216

== ENCOUNTER → 2017-10-22 10:16 | Outpatient (CLI) | payer MEDICARE, BC, SELFPAY ==
[2017-10-22 10:24] VITALS: BP 153/79; PULSE 65; RESP 16; TEMP 36.7; O2SAT 93; BMI 34.1
[2017-10-22 14:19] VITALS: BP 133/79; PULSE 73; RESP 18; TEMP 36.6; O2SAT 94
== END ==
PROVIDERS: Family Provider Nurse Practitioner; PCP Nurse Practitioner; Visit Provider Psychiatry & Neurology Neurology
DX: E71.314 Muscle carnitine palmitoyltransferase deficiency (principal)
CPT/HCPCS: 96365 ×2; J7050; A4216

== ENCOUNTER → 2017-10-26 09:50 | Outpatient (CLI) | payer MEDICARE, BC, SELFPAY ==
[2017-10-26 09:53] VITALS: BP 129/73; PULSE 72; RESP 16; TEMP 36.8; O2SAT 99; BMI 34.1
[2017-10-26 14:00] VITALS: BP 143/85; PULSE 63; RESP 16; O2SAT 97
== END ==
PROVIDERS: Family Provider Nurse Practitioner; PCP Nurse Practitioner; Visit Provider Psychiatry & Neurology Neurology
DX: E71.314 Muscle carnitine palmitoyltransferase deficiency (principal)
CPT/HCPCS: 96365 ×2; J7050; A4216

== ENCOUNTER → 2017-10-29 10:10 | Outpatient (CLI) | payer MEDICARE, BC, SELFPAY ==
[2017-10-29 10:15] VITALS: BP 138/68; PULSE 68; RESP 16; TEMP 36.8; O2SAT 98; BMI 34.1
[2017-10-29 14:04] VITALS: BP 126/85; PULSE 68; RESP 18; O2SAT 94
== END ==
PROVIDERS: Family Provider Nurse Practitioner; PCP Nurse Practitioner; Visit Provider Psychiatry & Neurology Neurology
DX: E71.314 Muscle carnitine palmitoyltransferase deficiency (principal)
CPT/HCPCS: 96365 ×2; J7050; A4216

== ENCOUNTER → 2017-11-02 10:04 | Outpatient (CLI) | payer MEDICARE, BC, SELFPAY ==
[2017-11-02 10:35] VITALS: BP 142/81; PULSE 61; RESP 16; TEMP 36.4
[2017-11-02 13:58] VITALS: BP 142/66
== END ==
PROVIDERS: Family Provider Nurse Practitioner; PCP Nurse Practitioner; Visit Provider Psychiatry & Neurology Neurology
DX: E71.314 Muscle carnitine palmitoyltransferase deficiency (principal)
CPT/HCPCS: 96365 ×2; J7050; A4216

== ENCOUNTER → 2017-11-04 10:02 | Outpatient (CLI) | payer MEDICARE, BC, SELFPAY ==
[2017-11-04 10:04] VITALS: BP 142/71; PULSE 62; RESP 16; TEMP 36.6; O2SAT 96; BMI 34.1
[2017-11-04 13:56] VITALS: BP 134/86; PULSE 63; RESP 16; O2SAT 97
== END ==
PROVIDERS: Family Provider Nurse Practitioner; PCP Nurse Practitioner; Visit Provider Psychiatry & Neurology Neurology
DX: E71.314 Muscle carnitine palmitoyltransferase deficiency (principal)
CPT/HCPCS: 96365 ×2; J7050; A4216

== ENCOUNTER → 2017-11-10 13:51 | Outpatient (CLI) | payer MEDICARE, BC, SELFPAY ==
[2017-11-10 13:54] VITALS: BP 134/75; PULSE 64; RESP 16; TEMP 36.1; O2SAT 93; BMI 34.1
== END ==
PROVIDERS: Family Provider Nurse Practitioner; PCP Nurse Practitioner; Visit Provider Psychiatry & Neurology Neurology
DX: E71.314 Muscle carnitine palmitoyltransferase deficiency (principal)
CPT/HCPCS: 96365; J7050; A4216

== ENCOUNTER → 2017-11-16 10:37 | Outpatient (CLI) | payer MEDICARE, BC, SELFPAY ==
[2017-11-16 10:49] VITALS: BP 130/76; PULSE 60; RESP 16; TEMP 36.4; O2SAT 94
[2017-11-16 12:34] LABS: Color, Urine Yellow (Yellow); Glucose, Dipstick Normal (Normal); Ketone-Dipstick Negative (Negative); Leukocyte Esterase-Dipstick 500 /ul (Negative); Nitrite-Dipstick Positive (Negative); Occult Blood-Urine 50 /ul (Negative); Protein-Dipstick 100 mg/dl (Negative); Specific Gravity, Urine 1.025 (1.002-1.030); Urine Bilirubin Dipstick Negative (Negative); Urine Clarity Cloudy (Clear); Urine Urobilinogen Normal (Normal)
[2017-11-16 13:57] VITALS: BP 113/63; PULSE 63; RESP 16; TEMP 36.8
== END ==
PROVIDERS: Family Provider Nurse Practitioner; PCP Nurse Practitioner; Visit Provider Psychiatry & Neurology Neurology
DX: E71.314 Muscle carnitine palmitoyltransferase deficiency (principal); R30.0 Dysuria
CPT/HCPCS: 96365 ×2; 81002; 87077; 87086; 87088; 87186; J7050; A4216

== ENCOUNTER → 2017-11-23 10:00 | Outpatient (CLI) | payer MEDICARE, BC, SELFPAY ==
--- NOTE | 2017-11-23 10:00 | DT_ITS ---
This patient was seen during an EMR downtime November 22, 2017 - November 29, 2017. This patient may have a combination of paper and electronic documentation or all paper documentation. All documentation is viewable within the e-chart portion of [employer] for each patient visit.
== END ==
PROVIDERS: Family Provider Nurse Practitioner; PCP Nurse Practitioner; Visit Provider Psychiatry & Neurology Neurology
DX: E71.314 Muscle carnitine palmitoyltransferase deficiency (principal)
CPT/HCPCS: 96365 ×2; J7040; J7050; A4216

== ENCOUNTER → 2017-11-26 13:42 | Outpatient (CLI) | payer MEDICARE, BC, SELFPAY ==
--- NOTE | 2017-11-26 13:42 | DT_ITS ---
This patient was seen during an EMR downtime November 22, 2017 - November 29, 2017. This patient may have a combination of paper and electronic documentation or all paper documentation. All documentation is viewable within the e-chart portion of [employer] for each patient visit.
[2017-11-26 16:38] LABS: CPK Total, Creatine Kinase 68 U/L (26-192)
== END ==
PROVIDERS: Family Provider Nurse Practitioner; PCP Nurse Practitioner; Visit Provider Psychiatry & Neurology Neurology
DX: E71.314 Muscle carnitine palmitoyltransferase deficiency (principal)
CPT/HCPCS: 96361; 96365; 36591; 82550; J7040; J7050

== ENCOUNTER → 2017-11-30 09:52 | Outpatient (CLI) | payer MEDICARE, BC, SELFPAY ==
[2017-11-30 10:48] VITALS: BP 123/62; PULSE 55; RESP 18; TEMP 36.8; O2SAT 96
[2017-11-30 14:57] VITALS: BP 119/58; PULSE 64; RESP 16; TEMP 36.9; O2SAT 95
== END ==
PROVIDERS: Family Provider Nurse Practitioner; PCP Nurse Practitioner; Visit Provider Psychiatry & Neurology Neurology
DX: E71.314 Muscle carnitine palmitoyltransferase deficiency (principal)
CPT/HCPCS: 96365 ×2; 96366; J7050; A4216

== ENCOUNTER → 2017-12-03 09:51 | Outpatient (CLI) | payer MEDICARE, BC, SELFPAY ==
[2017-12-03] MEDS: 0.9% Normal Saline 1,000 ML 999 ML IV (10:15)
[2017-12-03 10:34] VITALS: BP 156/66; PULSE 55; RESP 16; TEMP 36.3; O2SAT 97; BMI 34.1
[2017-12-03 14:07] VITALS: BP 151/82; PULSE 62; RESP 16
== END ==
PROVIDERS: Family Provider Nurse Practitioner; PCP Nurse Practitioner; Visit Provider Psychiatry & Neurology Neurology
DX: E71.314 Muscle carnitine palmitoyltransferase deficiency (principal); M79.672 Pain in left foot
CPT/HCPCS: 96365 ×2; 73630; J7030; J7050; A4216

== ENCOUNTER → 2017-12-03 12:34 | Outpatient (CLI) | payer MEDICARE, BC, SELFPAY ==
--- NOTE | 2017-12-03 12:37 | RAD_ITS ---
STUDY: X-RAY - LEFT FOOT CLINICAL: Female, 67 years old. Pain. TECHNIQUE: 3 view(s) of the foot. COMPARISON: None. FINDINGS: Normal talus, calcaneus, and tarsal bones. Normal visualized subtalar, talonavicular, calcaneocuboid, tarsal and tarsometatarsal articulations. Normal metatarsi. Normal metatarsophalangeal joint of the great toe. Normal tibial and fibular sesamoid bones. Normal interphalangeal joint of the great toe. Normal phalanges of the great toe. Normal second through fifth metatarsophalangeal joints. Normal interphalangeal joints and phalanges of the lesser toes. There is non-specific soft tissue swelling of the foot. There is no demonstrated fracture. RAD/Foot min 3 Views IMPRESSION: Soft tissue swelling. No fracture or dislocation is seen. Electronically Signed: Yahir Wolfe MD at 15:12 EDT , Service support ,
== END ==
PROVIDERS: Family Provider Nurse Practitioner; PCP Nurse Practitioner; Visit Provider Nurse Practitioner
DX: M79.672 Pain in left foot (principal)
CPT/HCPCS: 73630

== ENCOUNTER → 2017-12-07 13:45 | Outpatient (CLI) | payer MEDICARE, BC, SELFPAY ==
[2017-12-07] MEDS: 0.9% Normal Saline 1,000 ML 999 ML IV (14:00)
[2017-12-07 14:01] VITALS: BP 156/89; PULSE 67; RESP 16; TEMP 37.1; O2SAT 98
[2017-12-07 14:07] VITALS: BMI 34.1
== END ==
PROVIDERS: Family Provider Nurse Practitioner; PCP Nurse Practitioner; Visit Provider Psychiatry & Neurology Neurology
DX: E71.314 Muscle carnitine palmitoyltransferase deficiency (principal)
CPT/HCPCS: 96365; 96366; J7030; J7050

== ENCOUNTER → 2017-12-14 09:54 | Outpatient (CLI) | payer MEDICARE, BC, SELFPAY ==
[2017-12-14] MEDS: 0.9% Normal Saline 1,000 ML 999 ML IV (10:13)
[2017-12-14 10:14] VITALS: BP 143/75; PULSE 63; RESP 18; TEMP 36.7; O2SAT 99; BMI 34.1
[2017-12-14 14:12] VITALS: BP 139/55; PULSE 75; RESP 14; TEMP 36.6; O2SAT 95
== END ==
PROVIDERS: Family Provider Nurse Practitioner; PCP Nurse Practitioner; Visit Provider Psychiatry & Neurology Neurology
DX: E71.40 Disorder of carnitine metabolism, unspecified (principal)
CPT/HCPCS: 96361; 96365; 96366 ×2; J7030; J7050; A4216

== ENCOUNTER → 2017-12-17 09:58 | Outpatient (CLI) | payer MEDICARE, BC, SELFPAY ==
[2017-12-17 10:11] VITALS: BP 136/67; PULSE 58; RESP 16; TEMP 36.7; O2SAT 96; BMI 34.1
[2017-12-17] MEDS: 0.9% Normal Saline 1,000 ML 999 ML IV (10:22)
[2017-12-17 14:06] VITALS: BP 141/68; PULSE 61; RESP 16; O2SAT 94
== END ==
PROVIDERS: Family Provider Nurse Practitioner; PCP Nurse Practitioner; Visit Provider Psychiatry & Neurology Neurology
DX: E71.314 Muscle carnitine palmitoyltransferase deficiency (principal)
CPT/HCPCS: 96361; 96365 ×2; J7050; A4216

== ENCOUNTER → 2017-12-21 13:54 | Outpatient (CLI) | payer MEDICARE, BC, SELFPAY ==
[2017-12-21] MEDS: 0.9% Normal Saline 1,000 ML 999 ML IV (14:07)
[2017-12-21 14:11] VITALS: BP 134/70; PULSE 60; RESP 18; TEMP 36.9; O2SAT 97; BMI 34.1
== END ==
PROVIDERS: Family Provider Nurse Practitioner; PCP Nurse Practitioner; Visit Provider Psychiatry & Neurology Neurology
DX: E71.40 Disorder of carnitine metabolism, unspecified (principal)
CPT/HCPCS: 96361; 96365; J7030; J7050; A4216

== ENCOUNTER → 2017-12-23 09:48 | Outpatient (CLI) | payer MEDICARE, BC, SELFPAY ==
[2017-12-23 09:57] VITALS: BP 130/59; PULSE 69; RESP 16; TEMP 36.7; BMI 34.1
[2017-12-23] MEDS: 0.9% Normal Saline 1,000 ML 999 ML IV (10:05)
[2017-12-23 15:26] VITALS: BP 152/76; PULSE 61; RESP 16
== END ==
PROVIDERS: Family Provider Nurse Practitioner; PCP Nurse Practitioner; Visit Provider Psychiatry & Neurology Neurology
DX: E71.314 Muscle carnitine palmitoyltransferase deficiency (principal)
CPT/HCPCS: 96365 ×2; J7030; J7050; A4216

== ENCOUNTER → 2017-12-28 10:04 | Outpatient (CLI) | payer MEDICARE, BC, SELFPAY ==
[2017-12-28 10:37] VITALS: BP 133/76; PULSE 58; RESP 16; TEMP 36.6; O2SAT 96
[2017-12-28] MEDS: 0.9% Normal Saline 1,000 ML 999 ML IV (10:54)
[2017-12-28] MEDS: Alteplase 2 MG/2 ML Vial IV (11:09)
== END ==
PROVIDERS: Family Provider Nurse Practitioner; PCP Nurse Practitioner; Visit Provider Psychiatry & Neurology Neurology
DX: E71.314 Muscle carnitine palmitoyltransferase deficiency (principal)
CPT/HCPCS: 96361; 96365 ×2; 96375; 36593; J2997; J7030; J7040; J7050; A4216

== ENCOUNTER → 2017-12-29 13:35 | Outpatient (CLI) | payer MEDICARE, BC, SELFPAY ==
--- NOTE | 2017-12-29 13:41 | US_ITS ---
STUDY: ULTRASOUND TRANSVAGINAL CLINICAL: Female, 67 years old. Postmenopausal bleeding and spotting. TECHNIQUE: Transvaginal pelvic ultrasound. COMPARISON: CT abdomen and pelvis 03/16/2009 FINDINGS: The uterus measures 5.6 x 3.7 x 2.4 cm. Normal uterine cervix. The endometrium measures 4 mm in thickness, and is unremarkable in echotexture. There is no demonstrated endometrial mass. There is no myometrial mass. The myometrium is mildly heterogeneous. The right ovary is not seen. There is no apparent right adnexal mass or suspicious cyst or free fluid. The left ovary measures 2.7 x 2.6 x 1.8 cm. There is no left ovarian cyst or ovarian mass. There is no visualized left adnexal mass or complex lesion. There is normal arterial and normal venous vascularity. There is no fluid in the cul-de-sac. US/Transvaginal Non- IMPRESSION: There is no significant thickening or abnormal echotexture of the endometrium or any significant abnormality of the myometrium. The right ovary is not well seen. Left ovary appears normal. Electronically Signed: Jacky Hanson, at 15:49 EDT Tel , Service support ,
== END ==
PROVIDERS: Family Provider Nurse Practitioner; PCP Nurse Practitioner; Visit Provider Urology
DX: R10.2 Pelvic and perineal pain (principal); N39.0 Urinary tract infection, site not specified; N93.9 Abnormal uterine and vaginal bleeding, unspecified
CPT/HCPCS: 76830

== ENCOUNTER → 2017-12-31 09:50 | Outpatient (CLI) | payer MEDICARE, BC, SELFPAY ==
[2017-12-31] MEDS: 0.9% Normal Saline 1,000 ML 999 ML IV (10:15)
[2017-12-31 10:45] VITALS: BP 142/73; PULSE 60; RESP 16; TEMP 36.6; O2SAT 97
== END ==
PROVIDERS: Family Provider Nurse Practitioner; PCP Nurse Practitioner; Visit Provider Psychiatry & Neurology Neurology
DX: E71.314 Muscle carnitine palmitoyltransferase deficiency (principal)
CPT/HCPCS: 96361; 96365 ×2; J7030; J7050; A4216

== ENCOUNTER → 2018-01-07 09:51 | Outpatient (CLI) | payer MEDICARE, BC, SELFPAY ==
[2018-01-07 10:17] VITALS: BP 126/69; PULSE 65; RESP 16; TEMP 37; O2SAT 98; BMI 34.1
[2018-01-07] MEDS: 0.9% Normal Saline 1,000 ML 999 ML IV (10:42)
[2018-01-07 14:12] VITALS: BP 122/67; PULSE 62; RESP 16; TEMP 35.8; O2SAT 97
== END ==
PROVIDERS: Family Provider Nurse Practitioner; PCP Nurse Practitioner; Visit Provider Psychiatry & Neurology Neurology
DX: E71.314 Muscle carnitine palmitoyltransferase deficiency (principal)
CPT/HCPCS: 96361; 96365 ×2; J7030; J7050

== ENCOUNTER → 2018-01-11 09:51 | Outpatient (CLI) | payer MEDICARE, BC, SELFPAY ==
[2018-01-11] MEDS: 0.9% Normal Saline 1,000 ML 999 ML IV (10:08)
[2018-01-11 10:09] VITALS: BP 142/68; PULSE 68; RESP 16; TEMP 36.9; O2SAT 96
[2018-01-11 14:03] VITALS: BP 137/63; PULSE 66; RESP 16
== END ==
PROVIDERS: Family Provider Nurse Practitioner; PCP Nurse Practitioner; Visit Provider Psychiatry & Neurology Neurology
DX: E71.314 Muscle carnitine palmitoyltransferase deficiency (principal)
CPT/HCPCS: 96361; 96365 ×2; J7030; J7050

== ENCOUNTER → 2018-01-14 09:50 | Outpatient (CLI) | payer MEDICARE, BC, SELFPAY ==
[2018-01-14] MEDS: 0.9% Normal Saline 1,000 ML 999 ML IV (10:05)
[2018-01-14 10:07] VITALS: BP 142/90; PULSE 61; RESP 16; TEMP 36.9; O2SAT 99; BMI 33.1
[2018-01-14 14:04] VITALS: BP 138/54; PULSE 62; RESP 16; TEMP 36.3; O2SAT 97
== END ==
PROVIDERS: Family Provider Nurse Practitioner; PCP Nurse Practitioner; Visit Provider Psychiatry & Neurology Neurology
DX: E71.314 Muscle carnitine palmitoyltransferase deficiency (principal)
CPT/HCPCS: 96361; 96365 ×2; J7030; J7050; A4216

== ENCOUNTER → 2018-01-17 10:00 | Outpatient (CLI) | payer MEDICARE, BC, SELFPAY ==
--- NOTE | 2018-01-17 13:57 | US_ITS ---
STUDY: RENAL ULTRASOUND - COMPLETE REASON FOR EXAM: Female, 67 years old. Urinary tract infection. TECHNIQUE: Ultrasound evaluation of the kidneys was performed with real-time and static sherman-scale imaging. COMPARISON: CT abdomen and pelvis April 14, 2009. FINDINGS: RIGHT KIDNEY: Normal location of the right kidney, which is normal in size. The right kidney measures 9.5 x 4.9 x 5.0 cm. There is a normal cortex of the right kidney. The renal cortex measures 1.4 cm. There is no right renal mass or cyst. There are no right renal calculi. There is no right hydronephrosis. DISTAL RIGHT URETER: There is non-visualization of the distal right ureter. There is no demonstrated right ureterovesical junction calculus. There is a visualized right ureteral jet. LEFT KIDNEY: Normal location of the left kidney, which is normal in size. The left kidney measures 9.6 x 4.3 x 5.6 cm. There is a normal cortex of the left kidney. The renal cortex measures 1.4 cm. There is no left renal mass or cyst. There are no left renal calculi. There is no left hydronephrosis. DISTAL LEFT URETER: There is non-visualization of the distal left ureter. There is no demonstrated left ureterovesical junction calculus. There is a visualized left ureteral jet. BLADDER: The distended urinary bladder has a volume of 73 ml. The empty urinary bladder has a volume of 20 ml. There is a normal wall thickness of the distended urinary bladder. Bladder wall measures 4- 5 mm. There is no demonstrated mass within the urinary bladder. There are no demonstrated bladder calculi. US/Kidney and Bladder IMPRESSION: Normal ultrasound of the kidneys and urinary bladder. No significant postvoid bladder residual. Postvoid bladder residual is 20 ml. Bladder wall thickness at the upper limits of normal. Electronically Signed: Tee Weems MD at 1:10 EDT , Service support ,
== END ==
PROVIDERS: Family Provider Nurse Practitioner; PCP Nurse Practitioner; Visit Provider Urology
DX: N39.0 Urinary tract infection, site not specified (principal); N39.46 Mixed incontinence; R35.1 Nocturia
CPT/HCPCS: 76770

== ENCOUNTER → 2018-01-18 09:48 | Outpatient (CLI) | payer MEDICARE, BC, SELFPAY ==
[2018-01-18 10:05] VITALS: BP 128/89; PULSE 89; RESP 18; TEMP 36.7; O2SAT 97
[2018-01-18] MEDS: 0.9% Normal Saline 1,000 ML 999 ML IV (10:14)
== END ==
PROVIDERS: Family Provider Nurse Practitioner; PCP Nurse Practitioner; Visit Provider Psychiatry & Neurology Neurology
DX: E71.314 Muscle carnitine palmitoyltransferase deficiency (principal)
CPT/HCPCS: 96361; 96365 ×2; J7030; J7050; A4216

== ENCOUNTER → 2018-01-21 09:47 | Outpatient (CLI) | payer MEDICARE, BC, SELFPAY ==
[2018-01-21 09:58] VITALS: BP 154/79; PULSE 68; RESP 16; TEMP 36.6; O2SAT 96; BMI 33.3
[2018-01-21] MEDS: 0.9% Normal Saline 1,000 ML 999 ML IV (10:00)
== END ==
PROVIDERS: Family Provider Nurse Practitioner; PCP Nurse Practitioner; Visit Provider Psychiatry & Neurology Neurology
DX: E71.314 Muscle carnitine palmitoyltransferase deficiency (principal)
CPT/HCPCS: 96361; 96365 ×2; J7030; J7050; A4216

== ENCOUNTER 2018-01-25 10:01 | Day surgery (SDC) | payer MEDICARE, BC, SELFPAY ==
[2018-01-18 14:49] LABS: Bacteria 0 SEEN /hpf (None Seen); Mucous, Urine 0 SEEN /hpf (<or=2+); Red Blood Cells-Urine 0 SEEN /hpf (0-5); White Blood Cells 0 SEEN /hpf (0-5)
[2018-01-18 15:29] LABS: Glucose, Dipstick Normal (Normal); Ketone-Dipstick 5 mg/dl (Negative); Leukocyte Esterase-Dipstick Negative /ul (Negative); Nitrite-Dipstick Negative (Negative); Occult Blood-Urine 10 /ul (Negative); Protein-Dipstick 15 mg/dl (Negative); Specific Gravity, Urine 1.025 (1.002-1.030); Urine Bilirubin Dipstick Negative (Negative); Urine Clarity Clear (Clear); Urine Urobilinogen Normal (Normal)
[2018-01-18 15:32] LABS: Color, Urine SEE COMMENT BELOW (Yellow)
[2018-01-18 15:48] LABS: Squamous Epithelial Cells - UA 0-5 SEEN /hpf (5-10)
[2018-01-25] VITALS (10 sets, daily range): BP systolic 142–172; BP diastolic 73–90; PULSE 62–71; RESP 14–18; TEMP 36.4–37.1; O2SAT 92–98; BMI 33.6; BMI 34.0
[2018-01-25] MEDS: 0.9% Normal Saline 1,000 ML 999 ML IV (10:18)
--- NOTE | 2018-01-25 12:28 | PCM.DC.URO ---
Discharge Diet: No Restrictions Discharge Activity: Return to Normal Activity May resume sexual activity in: No Restrictions Call your doctor if you observe: Fever of 101 or Higher, Inability to urinate, Inability to have a bowel movement, Shortness of breath, Chest pain, Calf discomfort, Uncontrolled pain Allergies/Adverse Reactions: Allergies pentazocine Allergy (Verified 01/19/18 12:33) Unknown pentazocine lactate [From Talwin] Allergy (Verified 01/19/18 12:33) Unknown metoclopramide Adverse Reaction (Verified 01/19/18 12:33) Other HOT SWEATY Medications to take at Discharge Albuterol Inhaler [Ventolin Hfa] 1 - 2 puff INHALATION Q4H PRN PRN 03/21/13 Co Q10 200 [Co Q-10] 200 mg PO DAILY 03/21/13 Fluoxetine [Prozac] 40 mg PO DAILY 03/21/13 traZODone [Desyrel] 50 mg PO PRN PRN 03/21/13 Fluticasone/Salmeterol [Advair 100/50 Diskus] 1 puff INHALATION BID 05/23/13 Multivitamins,Therapeutic [Multivitamin] 1 tab PO DAILY 05/23/13 Triamcinolone Acetonide [Nasacort Aq Nasal King] 2 spray NASAL DAILY PRN 05/23/13 Levocarnitine 4 tab PO Q6H 03/17/16 Amlodipine [Norvasc] 5 mg PO DAILY 04/28/16 CycloSPORINE Ophthalmic [Restasis Ophthalmic] 1 drop EACH EYE BID 05/19/16 Cyclobenzaprine [Flexeril] 5 mg PO TID PRN PRN 01/19/18 Sulfasalazine [Azulfidine] 500 mg PO DAILY 01/19/18 Sulindac 150 mg PO BID 01/19/18 traMADol [Ultram] 50 mg PO Q6H PRN PRN 01/19/18 Primary Care Physician: Aislinn Espinal [Primary Care Provider] - Test Results: Test results from this visit will be discussed in further detail at your follow-up appointment, if applicable. Please Follow Up With: Vaishnavi Dietz MD - 1-2 weeks
--- NOTE | 2018-01-25 12:53 | OP.PN_ITS ---
Immediate Post-Op Note Date of Procedure: 01/25/18 Primary Surgeon/Physician: Vaishnavi Dietz MD medical customer service representative: Vaishnavi Dietz Pre-Operative Diagnosis: urinary tract infection, pelvic pain Post-Operative Diagnosis: same and rectocele Surgery/Procedure Performed:: cystoscopy and pelvic exam under anesthesia Description of Surgical Findings:: normal cystoscopy. very short anterior vaginal wall. grade 3 rectocele. atrophy. Estimated Blood Loss: 1cc Specimen's removed: none Type of Anesthesia:: MAC - Admit VTE Documentation VTE Present on Admission: Yes VTE Mechan Device Prophylaxis: SCD's VTE Pharm Prophylaxis ordered?: No Reason prophylaxis not ordered:: Treatment Not Indicated
--- NOTE | 2018-01-25 12:54 | PCM.OPRPT ---
Problem List (1) Urinary tract infection Status: Acute Report of Operation Date of Procedure: 01/25/18 Pre-Operative Diagnosis: urinary tract infection, pelvic pain Post-Operative Diagnosis: same and rectocele Surgery/Procedure Performed:: cystoscopy and pelvic exam under anesthesia Description of Surgical Findings:: normal cystoscopy. very short anterior vaginal wall. grade 3 rectocele. atrophy. casting operator helper: Vaishnavi Dietz Type of Anesthesia:: MAC Specimen's removed: none Estimated Blood Loss (mL): 1cc Description of Procedure: The patient is a 67-year-old female who had blood questioning from the urine and was treated like a urinary tract infection. She continues to have pelvic discomfort and presents for a cystoscopy with pelvic examination under anesthesia for further evaluation. All risks benefits and alternatives were discussed preoperatively and she agreed to proceed. Patient was taken to the operating room and placed on the operating room table anesthesia monitored the head neck area IV access and vital signs throughout the case. Once anesthesia was probably administered patient was placed in dorsal lithotomy position was prepped and draped in usual sterile fashion. A cystourethroscopy was then performed. The bladder mucosa and urethral mucosa in its entirety were examined. There are no masses, areas of erythema, ulcerations or foreign body identified. The ureteral orifices are located on the area of the trigone in correct anatomic location. The patient's bladder was emptied and attention was turned towards the vagina. There is a grade 3 rectocele present. The cervix is located very anteriorly and there is a very very short anterior vaginal wall. There is moderate vaginal mucosal atrophy present. The patient was then awakened and taken to the recovery room in good condition. There were no complications during this procedure. - Complications none - Admit VTE Documentation VTE Present on Admission: Yes VTE Mechan Device Prophylaxis: SCD's VTE Pharm Prophylaxis ordered?: No Reason prophylaxis not ordered:: Treatment Not Indicated
== END 2018-01-25 14:01 | disposition home or self-care (01) ==
LOC: MEDOUTP 10:07 → AC 12:04
PROVIDERS: Family Provider Nurse Practitioner; PCP Nurse Practitioner; Visit Provider Urology
PROC: 0TJB8ZZ Inspection of Bladder, Via Natural or Artificial Opening Endoscopic (ICD-10-PCS; CPT 52000; principal; 2018-01-25 13:30)
DX: N39.0 Urinary tract infection, site not specified (principal); E71.314 Muscle carnitine palmitoyltransferase deficiency; N81.6 Rectocele; N95.2 Postmenopausal atrophic vaginitis; R10.2 Pelvic and perineal pain; I10 Essential (primary) hypertension; J45.909 Unspecified asthma, uncomplicated; F32.9 Major depressive disorder, single episode, unspecified; M06.9 Rheumatoid arthritis, unspecified; Z87.440 Personal history of urinary (tract) infections; Z87.820 Personal history of traumatic brain injury; Z79.51 Long term (current) use of inhaled steroids; Z79.891 Long term (current) use of opiate analgesic; Z79.899 Other long term (current) drug therapy
CPT/HCPCS: 52000; 57410; 96361; 96365 ×2; 81001; 87086; 87088; J7030; J7050; J7120; A4216

== ENCOUNTER → 2018-01-28 09:55 | Outpatient (CLI) | payer MEDICARE, BC, SELFPAY ==
[2018-01-28 10:22] VITALS: BP 149/88; PULSE 62; RESP 16; TEMP 37.1; O2SAT 98
[2018-01-28] MEDS: 0.9% Normal Saline 1,000 ML 999 ML IV (10:32)
[2018-01-28 13:55] VITALS: BP 137/70; PULSE 63; RESP 16
== END ==
PROVIDERS: Family Provider Nurse Practitioner; PCP Nurse Practitioner; Visit Provider Psychiatry & Neurology Neurology
DX: E71.314 Muscle carnitine palmitoyltransferase deficiency (principal)
CPT/HCPCS: 96361; 96365 ×2; 96366; J7030; J7050; A4216

== ENCOUNTER → 2018-02-02 09:48 | Outpatient (CLI) | payer MEDICARE, BC, SELFPAY ==
[2018-02-02 09:57] VITALS: BP 153/79; PULSE 65; RESP 16; TEMP 36.4; O2SAT 99
[2018-02-02] MEDS: 0.9% Normal Saline 1,000 ML 999 ML IV (10:00)
[2018-02-02 14:00] VITALS: BP 144/78; PULSE 62; RESP 16; TEMP 36.4; O2SAT 94
== END ==
PROVIDERS: Family Provider Nurse Practitioner; PCP Nurse Practitioner; Visit Provider Psychiatry & Neurology Neurology
DX: E71.314 Muscle carnitine palmitoyltransferase deficiency (principal)
CPT/HCPCS: 96361; 96365 ×2; J7030; J7050; A4216

== ENCOUNTER → 2018-02-07 09:49 | Outpatient (CLI) | payer MEDICARE, BC, SELFPAY ==
[2018-02-07 10:07] VITALS: BP 144/69; PULSE 62; RESP 18; TEMP 36.9; O2SAT 97
[2018-02-07] MEDS: 0.9% Normal Saline 1,000 ML 999 ML IV (10:07)
[2018-02-07 14:04] VITALS: BP 139/66; PULSE 59; RESP 18; TEMP 36.6; O2SAT 93
== END ==
PROVIDERS: Family Provider Nurse Practitioner; PCP Nurse Practitioner; Visit Provider Psychiatry & Neurology Neurology
DX: E71.314 Muscle carnitine palmitoyltransferase deficiency (principal)
CPT/HCPCS: 96361; 96365 ×2; J7030; J7050; A4216

== ENCOUNTER → 2018-02-08 15:05 | Outpatient (CLI) | payer MEDICARE, BC, SELFPAY ==
[2018-02-08 17:37] LABS: Absolute Lymphocyte Count 1.66 X10^3/ul (0.83-4.51); Absolute Neutrophil Count 3.6 X10^3/uL (2.0-7.7); Basophil# 0.02 X10^3/uL; Basophil% 0.3 % (0-1); Eosinophil# 0.06 X10^3/uL; Hematocrit 40.4 % (37-47); Hemoglobin 12.6 g/dl (12.0-15.0); Lymphocyte # 1.66 X10^3/ul (4.0); Mean Corp Hgb Conc 31.2 g/gl (32-36); Mean Corpuscular Volume 96.2 fL (81-99); Mean Platelet Vol. 9.7 fl (6.2-12.0); Monocyte# 0.56 X10^3/uL; Monocyte% 9.5 % (0-10); Neutrophil # 3.61 X10^3/uL (2.7-7.7); Platelet Count 305 K/mm3 (150-450); RBC Distribution Width CV 13.6 % (11.6-14.6); RBC Distribution Width SD 47.8 fl (35.1-43.9); White Blood Count 5.9 K/mm3 (4.4-11.0)
[2018-02-08 17:39] LABS: POSITIVE COUNT NO; POSITIVE DIFFERENTIAL NO; POSITIVE MORPHOLOGY NO
[2018-02-08 17:52] LABS: ALB/GLOB Ratio 0.9 RATIO (0.9-2.4); AST(SGOT) 19 U/L (15-37); Alanine Aminotransfer ALT/SGPT 22 U/L (13-56); Albumin, Serum 3.1 g/dL (3.2-5.0); Alkaline Phosphatase 66 U/L (45-117); Anion Gap 8 (5-15); BUN 16 mg/dL (7-18); BUN/Creat Ratio 19.3 RATIO (10-20); Calcium,Total 8.6 mg/dL (8.5-10.1); Chloride 110 mmol/L (98-107); Creatinine, Serum 0.83 mg/dL (0.55-1.02); EST Glomerular Filtration Rate 72 mL/min (>60); Est Glom Filt Rate - Afr Amer 87 mL/min (>60); Globulin 3.6 g/dL (2.2-4.2); Glucose 96 mg/dL (74-106); Potassium 3.8 mmol/L (3.5-5.1); Protein, Total 6.7 g/dL (6.4-8.2); Sodium Level 144 mmol/L (136-145)
== END ==
PROVIDERS: Family Provider Nurse Practitioner; PCP Nurse Practitioner; Visit Provider Internal Medicine Rheumatology
DX: M06.4 Inflammatory polyarthropathy (principal); M79.7 Fibromyalgia; M75.42 Impingement syndrome of left shoulder; E71.41 Primary carnitine deficiency; G47.33 Obstructive sleep apnea (adult) (pediatric); Z79.899 Other long term (current) drug therapy
CPT/HCPCS: 36415; 80053; 85025

== ENCOUNTER → 2018-02-11 09:54 | Outpatient (CLI) | payer MEDICARE, BC, SELFPAY ==
[2018-02-11] MEDS: 0.9% Normal Saline 1,000 ML 999 ML IV (10:03)
[2018-02-11 10:05] VITALS: BP 128/72; PULSE 59; RESP 16; TEMP 36.6; O2SAT 96
[2018-02-11 14:06] VITALS: BP 137/66; PULSE 71; RESP 16; TEMP 36.3; O2SAT 94
== END ==
PROVIDERS: Family Provider Nurse Practitioner; PCP Nurse Practitioner; Visit Provider Psychiatry & Neurology Neurology
DX: E71.314 Muscle carnitine palmitoyltransferase deficiency (principal)
CPT/HCPCS: 96361; 96365 ×2; J7030; J7050; A4216

== ENCOUNTER → 2018-02-15 09:54 | Outpatient (CLI) | payer MEDICARE, BC, SELFPAY ==
[2018-02-15 10:12] VITALS: BP 144/68; PULSE 62; RESP 16; TEMP 36.7; O2SAT 96
[2018-02-15] MEDS: 0.9% Normal Saline 1,000 ML 999 ML IV (10:12)
== END ==
PROVIDERS: Family Provider Nurse Practitioner; PCP Nurse Practitioner; Visit Provider Psychiatry & Neurology Neurology
DX: E71.314 Muscle carnitine palmitoyltransferase deficiency (principal)
CPT/HCPCS: 96361; 96365 ×2; J7030; J7040; J7050; A4216

== ENCOUNTER → 2018-02-18 09:50 | Outpatient (CLI) | payer MEDICARE, BC, SELFPAY ==
[2018-02-18] MEDS: 0.9% Normal Saline 1,000 ML 999 ML IV (10:25)
[2018-02-18 10:27] VITALS: BP 149/64; PULSE 62; RESP 16; TEMP 36.6; O2SAT 98; BMI 34.1
[2018-02-18 14:06] VITALS: BP 146/67; PULSE 67; RESP 16; TEMP 35.8; O2SAT 97
== END ==
PROVIDERS: Family Provider Nurse Practitioner; PCP Nurse Practitioner; Visit Provider Psychiatry & Neurology Neurology
DX: E71.314 Muscle carnitine palmitoyltransferase deficiency (principal)
CPT/HCPCS: 96365 ×2; J7030; J7050; A4216

== ENCOUNTER → 2018-02-23 09:56 | Outpatient (CLI) | payer MEDICARE, BC, SELFPAY ==
[2018-02-23 10:09] VITALS: BP 134/71; PULSE 62; RESP 16; TEMP 36.6; O2SAT 95; BMI 34.1
[2018-02-23] MEDS: 0.9% Normal Saline 1,000 ML 999 ML IV (10:23)
== END ==
PROVIDERS: Family Provider Nurse Practitioner; PCP Nurse Practitioner; Visit Provider Psychiatry & Neurology Neurology
DX: E71.314 Muscle carnitine palmitoyltransferase deficiency (principal)
CPT/HCPCS: 96361; 96365 ×2; J7030; J7050; A4216

== ENCOUNTER → 2018-02-25 09:55 | Outpatient (CLI) | payer MEDICARE, BC, SELFPAY ==
[2018-02-25] MEDS: 0.9% Normal Saline 1,000 ML 999 ML IV (10:09)
[2018-02-25 10:12] VITALS: BP 162/76; PULSE 57; RESP 16; TEMP 36.6; O2SAT 98; BMI 34.1
== END ==
PROVIDERS: Family Provider Nurse Practitioner; PCP Nurse Practitioner; Visit Provider Psychiatry & Neurology Neurology
DX: E71.314 Muscle carnitine palmitoyltransferase deficiency (principal)
CPT/HCPCS: 96361; 96365 ×2; J7030; J7050; A4216

== ENCOUNTER → 2018-03-01 13:54 | Outpatient (CLI) | payer MEDICARE, BC, SELFPAY ==
[2018-03-01 14:07] VITALS: BP 155/73; PULSE 57; RESP 16; TEMP 35.9; O2SAT 97; BMI 34.1
== END ==
PROVIDERS: Family Provider Nurse Practitioner; PCP Nurse Practitioner; Visit Provider Psychiatry & Neurology Neurology
DX: E71.314 Muscle carnitine palmitoyltransferase deficiency (principal)
CPT/HCPCS: 96365; J7030; J7050; A4216

== ENCOUNTER → 2018-03-08 13:49 | Outpatient (CLI) | payer MEDICARE, BC, SELFPAY ==
[2018-03-08 14:21] VITALS: BP 138/84; PULSE 60; RESP 16; TEMP 36.9; O2SAT 94; BMI 34.1
== END ==
PROVIDERS: Family Provider Nurse Practitioner; PCP Nurse Practitioner; Visit Provider Psychiatry & Neurology Neurology
DX: E71.314 Muscle carnitine palmitoyltransferase deficiency (principal)
CPT/HCPCS: 96365; J7030; J7050; A4216

== ENCOUNTER → 2018-03-10 09:51 | Outpatient (CLI) | payer MEDICARE, BC, SELFPAY ==
[2018-03-10 10:06] VITALS: BP 134/73; PULSE 72; RESP 16; TEMP 36.7; BMI 34.1
[2018-03-10 15:52] LABS: Vitamin B12 > 2000 pg/mL (211-911)
== END ==
PROVIDERS: Family Provider Nurse Practitioner; PCP Nurse Practitioner; Visit Provider Psychiatry & Neurology Neurology
DX: E71.314 Muscle carnitine palmitoyltransferase deficiency (principal); E53.8 Deficiency of other specified B group vitamins
CPT/HCPCS: 96365 ×2; 36592; 82607; J7030; J7050; A4216

== ENCOUNTER → 2018-03-15 09:59 | Outpatient (CLI) | payer MEDICARE, BC, SELFPAY ==
[2018-03-15 10:16] VITALS: BP 128/77; PULSE 69; RESP 16; TEMP 37; O2SAT 94; BMI 34.1
== END ==
PROVIDERS: Family Provider Nurse Practitioner; PCP Nurse Practitioner; Visit Provider Psychiatry & Neurology Neurology
DX: E71.314 Muscle carnitine palmitoyltransferase deficiency (principal)
CPT/HCPCS: 96365 ×2; J7030; J7050; A4216

== ENCOUNTER → 2018-03-18 09:55 | Outpatient (CLI) | payer MEDICARE, BC, SELFPAY ==
[2018-03-18 10:04] VITALS: BP 128/61; PULSE 67; RESP 15; TEMP 35.7; O2SAT 98; BMI 34.1
[2018-03-18 13:37] VITALS: BP 117/73; PULSE 72; RESP 16; TEMP 37.2; O2SAT 96; BMI 34.1
== END ==
PROVIDERS: Family Provider Nurse Practitioner; PCP Nurse Practitioner; Visit Provider Psychiatry & Neurology Neurology
DX: E71.314 Muscle carnitine palmitoyltransferase deficiency (principal)
CPT/HCPCS: 96365 ×2; J7030; J7050; A4216

== ENCOUNTER → 2018-03-22 09:47 | Outpatient (CLI) | payer MEDICARE, BC, SELFPAY ==
[2018-03-22 09:58] VITALS: BP 107/62; PULSE 71; RESP 18; TEMP 36.4; O2SAT 99; BMI 34.1
== END ==
PROVIDERS: Family Provider Nurse Practitioner; PCP Nurse Practitioner; Referring Provider Psychiatry & Neurology Neurology; Visit Provider Psychiatry & Neurology Neurology
DX: E71.314 Muscle carnitine palmitoyltransferase deficiency (principal)
CPT/HCPCS: 96365 ×2; J7030; J7050; A4216

== ENCOUNTER → 2018-03-25 11:02 | Outpatient (CLI) | payer MEDICARE, BC, SELFPAY ==
[2018-03-25 11:15] VITALS: BP 144/86; PULSE 67; RESP 16; TEMP 36.4; O2SAT 99; BMI 32.8
[2018-03-25] MEDS: 0.9% Normal Saline 1,000 ML 999 ML IV (11:22)
[2018-03-25 15:13] VITALS: BP 132/81; PULSE 65; RESP 18; TEMP 36.6; O2SAT 98
[2018-03-25 15:53] VITALS: BP 144/71; PULSE 64; RESP 16; O2SAT 98
== END ==
PROVIDERS: Family Provider Nurse Practitioner; PCP Nurse Practitioner; Referring Provider Nurse Practitioner; Visit Provider Psychiatry & Neurology Neurology
DX: E71.314 Muscle carnitine palmitoyltransferase deficiency (principal)
CPT/HCPCS: 96365 ×2; J7030; J7050; A4216

== ENCOUNTER → 2018-03-30 09:45 | Outpatient (CLI) | payer MEDICARE, BC, SELFPAY ==
[2018-03-30 10:18] VITALS: BP 133/71; PULSE 63; RESP 18; TEMP 36.8; O2SAT 93; BMI 33.1
[2018-03-30] MEDS: 0.9% Normal Saline 1,000 ML 999 ML IV (10:50)
[2018-03-30 14:02] VITALS: BP 149/70; PULSE 56; RESP 18; TEMP 36.5; O2SAT 96
== END ==
PROVIDERS: Family Provider Nurse Practitioner; PCP Nurse Practitioner; Referring Provider Psychiatry & Neurology Neurology; Visit Provider Psychiatry & Neurology Neurology
DX: E71.314 Muscle carnitine palmitoyltransferase deficiency (principal)
CPT/HCPCS: 96361; 96365 ×2; J7030; J7050; A4216

== ENCOUNTER → 2018-04-01 09:43 | Outpatient (CLI) | payer MEDICARE, BC, SELFPAY ==
[2018-04-01] MEDS: 0.9% Normal Saline 1,000 ML 999 ML IV (10:22)
[2018-04-01 10:27] VITALS: BP 147/73; PULSE 56; RESP 18; TEMP 36.8; O2SAT 96; BMI 33.1
== END ==
PROVIDERS: Family Provider Nurse Practitioner; PCP Nurse Practitioner; Referring Provider Psychiatry & Neurology Neurology; Visit Provider Psychiatry & Neurology Neurology
DX: E71.314 Muscle carnitine palmitoyltransferase deficiency (principal)
CPT/HCPCS: 96361; 96365 ×2; J7030; J7050; A4216

== ENCOUNTER → 2018-04-05 09:52 | Outpatient (CLI) | payer MEDICARE, BC, SELFPAY ==
[2018-04-05] MEDS: 0.9% Normal Saline 1,000 ML 999 ML IV (10:05)
[2018-04-05 10:18] VITALS: BP 117/75; PULSE 68; RESP 18; TEMP 36.7; O2SAT 97; BMI 34.1
== END ==
PROVIDERS: Family Provider Nurse Practitioner; PCP Nurse Practitioner; Referring Provider Psychiatry & Neurology Neurology; Visit Provider Psychiatry & Neurology Neurology
DX: E71.314 Muscle carnitine palmitoyltransferase deficiency (principal)
CPT/HCPCS: 96361; 96365 ×2; J7030; J7050; A4216

== ENCOUNTER → 2018-04-08 09:54 | Outpatient (CLI) | payer MEDICARE, BC, SELFPAY ==
[2018-04-08 10:10] VITALS: BP 120/52; PULSE 73; RESP 16; TEMP 36.6; O2SAT 98; BMI 34.1
[2018-04-08] MEDS: 0.9% Normal Saline 1,000 ML 999 ML IV (10:16)
== END ==
PROVIDERS: Family Provider Nurse Practitioner; PCP Nurse Practitioner; Referring Provider Psychiatry & Neurology Neurology; Visit Provider Psychiatry & Neurology Neurology
DX: E71.314 Muscle carnitine palmitoyltransferase deficiency (principal)
CPT/HCPCS: 96361; 96365 ×2; J7030; J7050; A4216

== ENCOUNTER → 2018-04-13 09:53 | Outpatient (CLI) | payer MEDICARE, BC, SELFPAY ==
[2018-04-13] MEDS: 0.9% Normal Saline 1,000 ML 999 ML IV (10:08)
[2018-04-13 10:12] VITALS: BP 129/76; PULSE 72; RESP 16; TEMP 36.6; O2SAT 98; BMI 34.1
== END ==
PROVIDERS: Family Provider Nurse Practitioner; PCP Nurse Practitioner; Referring Provider Psychiatry & Neurology Neurology; Visit Provider Psychiatry & Neurology Neurology
DX: E71.314 Muscle carnitine palmitoyltransferase deficiency (principal)
CPT/HCPCS: 96361; 96365 ×2; J7030; J7050; A4216

== ENCOUNTER → 2018-04-15 09:54 | Outpatient (CLI) | payer MEDICARE, BC, SELFPAY ==
[2018-04-15] MEDS: 0.9% Normal Saline 1,000 ML 999 ML IV (10:08)
[2018-04-15 10:10] VITALS: BP 118/59; PULSE 61; RESP 16; TEMP 36.4; O2SAT 98; BMI 34.1
== END ==
PROVIDERS: Family Provider Nurse Practitioner; PCP Nurse Practitioner; Referring Provider Psychiatry & Neurology Neurology; Visit Provider Psychiatry & Neurology Neurology
DX: E71.314 Muscle carnitine palmitoyltransferase deficiency (principal)
CPT/HCPCS: 96361; 96365 ×2; J7030; J7050; A4216

== ENCOUNTER → 2018-04-22 09:47 | Outpatient (CLI) | payer MEDICARE, BC, SELFPAY ==
[2018-04-22] MEDS: 0.9% Normal Saline 1,000 ML 999 ML IV (09:55)
[2018-04-22 10:00] VITALS: BP 147/67; PULSE 74; RESP 16; TEMP 36.5; O2SAT 98; BMI 34.1
== END ==
PROVIDERS: Family Provider Nurse Practitioner; PCP Nurse Practitioner; Referring Provider Psychiatry & Neurology Neurology; Visit Provider Psychiatry & Neurology Neurology
DX: E71.314 Muscle carnitine palmitoyltransferase deficiency (principal)
CPT/HCPCS: 96361; 96365 ×2; J7030; J7050; A4216

== ENCOUNTER → 2018-04-27 09:52 | Outpatient (CLI) | payer MEDICARE, BC, SELFPAY ==
[2018-04-27] MEDS: 0.9% Normal Saline 1,000 ML 999 ML IV (10:10)
[2018-04-27 10:13] VITALS: BP 125/62; PULSE 55; RESP 18; TEMP 36.1; O2SAT 95
== END ==
PROVIDERS: Family Provider Nurse Practitioner; PCP Nurse Practitioner; Referring Provider Psychiatry & Neurology Neurology; Visit Provider Psychiatry & Neurology Neurology
DX: E71.314 Muscle carnitine palmitoyltransferase deficiency (principal)
CPT/HCPCS: 96361; 96365 ×2; J7030; J7050; A4216

== ENCOUNTER → 2018-04-29 09:52 | Outpatient (CLI) | payer MEDICARE, BC, SELFPAY ==
[2018-04-29] MEDS: 0.9% Normal Saline 1,000 ML 999 ML IV (10:07)
[2018-04-29 10:15] VITALS: BP 137/61; PULSE 63; RESP 16; TEMP 36.4; O2SAT 98
== END ==
PROVIDERS: Family Provider Nurse Practitioner; PCP Nurse Practitioner; Referring Provider Psychiatry & Neurology Neurology; Visit Provider Psychiatry & Neurology Neurology
DX: E71.314 Muscle carnitine palmitoyltransferase deficiency (principal)
CPT/HCPCS: 96365 ×2; J7050; A4216

== ENCOUNTER → 2018-05-03 09:50 | Outpatient (CLI) | payer MEDICARE, BC, SELFPAY ==
[2018-05-03] MEDS: 0.9% Normal Saline 1,000 ML 999 ML IV (10:15)
[2018-05-03 10:16] VITALS: BP 166/75; PULSE 76; RESP 16; TEMP 36.9; O2SAT 100; BMI 34.1
[2018-05-03 11:48] LABS: Absolute Lymphocyte Count 1.39 X10^3/ul (0.83-4.51); Absolute Neutrophil Count 2.8 X10^3/uL (2.0-7.7); Basophil# 0.03 X10^3/uL; Basophil% 0.6 % (0-1); Eosinophil# 0.06 X10^3/uL; Eosinophils% 1.2 % (0-5); Hematocrit 36.6 % (37-47); Hemoglobin 11.7 g/dl (12.0-15.0); Lymphocyte # 1.39 X10^3/ul (4.0); Lymphocyte % 28.5 % (19-41); Mean Corpuscular Volume 97.1 fL (81-99); Mean Platelet Vol. 9.3 fl (6.2-12.0); Monocyte# 0.57 X10^3/uL; Monocyte% 11.7 % (0-10); Neutrophil # 2.82 X10^3/uL (2.7-7.7); Neutrophil % 57.8 % (47-70); POSITIVE COUNT NO; POSITIVE DIFFERENTIAL NO; POSITIVE MORPHOLOGY NO; Platelet Count 277 K/mm3 (150-450); RBC Distribution Width CV 13.7 % (11.6-14.6); RBC Distribution Width SD 46.8 fl (35.1-43.9); Red Blood Count 3.77 M/mm3 (4.2-5.4); White Blood Count 4.9 K/mm3 (4.4-11.0)
[2018-05-03 12:10] LABS: ALB/GLOB Ratio 0.9 RATIO (0.9-2.4); AST(SGOT) 15 U/L (15-37); Alanine Aminotransfer ALT/SGPT 20 U/L (13-56); Albumin, Serum 2.7 g/dL (3.2-5.0); Alkaline Phosphatase 54 U/L (45-117); Anion Gap 6 (5-15); BUN 24 mg/dL (7-18); BUN/Creat Ratio 43.6 RATIO (10-20); Calcium,Total 7.6 mg/dL (8.5-10.1); Chloride 111 mmol/L (98-107); Creatinine, Serum 0.55 mg/dL (0.55-1.02); EST Glomerular Filtration Rate 116 mL/min (>60); Est Glom Filt Rate - Afr Amer 140 mL/min (>60); Estimated Creatinine Clearance 45.85 ml/min; Glucose 96 mg/dL (74-106); Protein, Total 5.7 g/dL (6.4-8.2); Sodium Level 144 mmol/L (136-145); Thyroid Stim Hormone (TSH) 1.47 uIU/mL (0.358-3.74)
[2018-05-03 19:32] LABS: Xtra Tube EP Lab EXTRA TUBE
== END ==
PROVIDERS: Family Provider Nurse Practitioner; PCP Nurse Practitioner; Referring Provider Psychiatry & Neurology Neurology; Visit Provider Psychiatry & Neurology Neurology
DX: M79.606 Pain in leg, unspecified (principal); R53.83 Other fatigue; E71.314 Muscle carnitine palmitoyltransferase deficiency
CPT/HCPCS: 96361; 96365 ×2; 36591; 80053; 84443; 85025; J7030; J7050; A4216

== ENCOUNTER → 2018-05-06 09:49 | Outpatient (CLI) | payer MEDICARE, BC, SELFPAY ==
[2018-05-03 10:16] VITALS: BMI 34.1
[2018-05-06] MEDS: 0.9% Normal Saline 1,000 ML 999 ML IV (10:01)
[2018-05-06 10:02] VITALS: BP 140/73; PULSE 64; RESP 16; O2SAT 98; BMI 34.1
[2018-05-06 14:11] VITALS: BP 160/78; PULSE 58; RESP 16; TEMP 36.3; O2SAT 98
[2018-05-06 15:17] LABS: Absolute Lymphocyte Count 1.95 X10^3/ul (0.83-4.51); Absolute Neutrophil Count 3.9 X10^3/uL (2.0-7.7); Basophil# 0.02 X10^3/uL; Basophil% 0.3 % (0-1); Eosinophil# 0.05 X10^3/uL; Eosinophils% 0.8 % (0-5); Hematocrit 40.2 % (37-47); Hemoglobin 12.8 g/dl (12.0-15.0); Lymphocyte # 1.95 X10^3/ul (4.0); Lymphocyte % 30.1 % (19-41); Mean Corp Hgb Conc 31.8 g/gl (32-36); Mean Corpuscular Hgb 30.7 pg (27.0-32.0); Mean Corpuscular Volume 96.4 fL (81-99); Mean Platelet Vol. 9.7 fl (6.2-12.0); Monocyte# 0.53 X10^3/uL; Monocyte% 8.2 % (0-10); Neutrophil # 3.92 X10^3/uL (2.7-7.7); Neutrophil % 60.4 % (47-70); Platelet Count 307 K/mm3 (150-450); RBC Distribution Width CV 13.8 % (11.6-14.6); RBC Distribution Width SD 48.4 fl (35.1-43.9); Red Blood Count 4.17 M/mm3 (4.2-5.4); White Blood Count 6.5 K/mm3 (4.4-11.0)
[2018-05-06 15:25] LABS: ALB/GLOB Ratio 0.9 RATIO (0.9-2.4); AST(SGOT) 18 U/L (15-37); Alanine Aminotransfer ALT/SGPT 21 U/L (13-56); Albumin, Serum 3.1 g/dL (3.2-5.0); Alkaline Phosphatase 60 U/L (45-117); Anion Gap 5 (5-15); BUN 21 mg/dL (7-18); Calcium,Total 7.8 mg/dL (8.5-10.1); Chloride 110 mmol/L (98-107); Creatinine, Serum 0.54 mg/dL (0.55-1.02); EST Glomerular Filtration Rate 119 mL/min (>60); Est Glom Filt Rate - Afr Amer 144 mL/min (>60); Globulin 3.5 g/dL (2.2-4.2); Glucose 84 mg/dL (74-106); POSITIVE COUNT NO; POSITIVE DIFFERENTIAL NO; POSITIVE MORPHOLOGY NO; Protein, Total 6.6 g/dL (6.4-8.2); Sodium Level 141 mmol/L (136-145)
== END ==
PROVIDERS: Family Provider Nurse Practitioner; PCP Nurse Practitioner; Referring Provider Psychiatry & Neurology Neurology; Visit Provider Psychiatry & Neurology Neurology
DX: E71.314 Muscle carnitine palmitoyltransferase deficiency (principal); M06.4 Inflammatory polyarthropathy; M79.7 Fibromyalgia; M75.42 Impingement syndrome of left shoulder; G47.33 Obstructive sleep apnea (adult) (pediatric); Z79.899 Other long term (current) drug therapy
CPT/HCPCS: 96365 ×2; 36591; 80053; 85025; J7030; J7050; A4216

== ENCOUNTER → 2018-05-10 12:49 | Outpatient (CLI) | payer MEDICARE, BC, SELFPAY ==
[2018-05-06 10:02] VITALS: BMI 34.1
--- NOTE | 2018-05-10 12:53 | VDLE_ITS ---
Reason For Study: pain RIGHT LEFT CFV is compressible, spontaneous, phasic, GSV is normal. competent and demonstrates normal CFV is compressible, spontaneous, phasic, augmentation. competent, and demonstrates normal Procedure augmentation. Exam performed in department. FV is compressible, spontaneous, phasic, The exam was diagnostic. competent and demonstrates normal A preliminary report was called and/or faxed augmentation. to Aislinn Espinal. POP V is compressible, spontaneous, phasic, competent and demonstrates normal augmentation. T/P Trunk is compressible. PTV is compressible. LT PerV is compressible. <> Interpretation Summary Deep veins of the left lower extremity are patent and compressible segmentally. There is no evidence of left lower extremity deep vein thrombosis. Valvular competence appears intact within the proximal deep venous system on the left . The left greater saphenous vein appears patent and compressible segmentally. Ordering Physician: Aislinn Espinal Performed By: Rakesh Guerrero RVT
== END ==
PROVIDERS: Family Provider Nurse Practitioner; PCP Nurse Practitioner; Referring Provider Nurse Practitioner; Visit Provider Nurse Practitioner
DX: M79.605 Pain in left leg (principal)
CPT/HCPCS: 93971

== ENCOUNTER → 2018-05-11 09:41 | Outpatient (CLI) | payer MEDICARE, BC, SELFPAY ==
[2018-05-06 10:02] VITALS: BMI 34.1
[2018-05-11 09:52] VITALS: BP 130/72; PULSE 68; RESP 18; TEMP 35.8; O2SAT 98; BMI 34.1
[2018-05-11] MEDS: 0.9% Normal Saline 1,000 ML 999 ML IV (10:07)
[2018-05-11 11:12] LABS: Magnesium 2.1 mg/dL (1.6-2.6); Prealbumin 19.2 mg/dL (20.0-40.0)
[2018-05-11 11:16] LABS: BNP,B-Type NATRIURETIC PEPTIDE 147.4 pg/mL (0-100)
== END ==
PROVIDERS: Family Provider Nurse Practitioner; PCP Nurse Practitioner; Referring Provider Psychiatry & Neurology Neurology; Visit Provider Psychiatry & Neurology Neurology
DX: E71.314 Muscle carnitine palmitoyltransferase deficiency (principal); M79.89 Other specified soft tissue disorders; E83.51 Hypocalcemia; E46 Unspecified protein-calorie malnutrition
CPT/HCPCS: 96365 ×2; 83735; 83880; 84134; J7030; J7050; A4216

== ENCOUNTER → 2018-05-13 09:49 | Outpatient (CLI) | payer MEDICARE, BC, SELFPAY ==
[2018-05-06 10:02] VITALS: BMI 34.1
[2018-05-11 09:52] VITALS: BMI 34.1
[2018-05-13] MEDS: 0.9% Normal Saline 1,000 ML 999 ML IV (09:59)
[2018-05-13 10:00] VITALS: BP 154/73; PULSE 66; RESP 16; TEMP 36.2; O2SAT 96; BMI 34.1
[2018-05-13 13:38] VITALS: PULSE 62; RESP 18; TEMP 36.6; O2SAT 98
== END ==
PROVIDERS: Family Provider Nurse Practitioner; PCP Nurse Practitioner; Referring Provider Psychiatry & Neurology Neurology; Visit Provider Psychiatry & Neurology Neurology
DX: E71.314 Muscle carnitine palmitoyltransferase deficiency (principal)
CPT/HCPCS: 96361; 96365 ×2; J7050; A4216

== ENCOUNTER → 2018-05-20 09:48 | Outpatient (CLI) | payer MEDICARE, BC, SELFPAY ==
[2018-05-13 10:00] VITALS: BMI 34.1
[2018-05-20 10:08] VITALS: BP 134/70; PULSE 70; RESP 18; TEMP 36.2; O2SAT 99; BMI 34.1
[2018-05-20 13:52] VITALS: PULSE 80; RESP 18; TEMP 36.6; O2SAT 96
[2018-05-20 13:55] VITALS: BP 134/72
--- OUTSIDE RECORDS SUMMARY | 2018-07-15 04:37 | XMS RPT_ITS | Continuity of Care Document ---
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 01/19/18 Primary Care Physician: Aislinn Boykin [Primary Care Provider] - Test Results: Test results from this vis it will be discussed in further detail at your follow-up appointment, if applicable. Please Follow Up With: Vaishnavi Dietz MD - 1-2 weeks 01/25/18 1230 <Electronically signed by Vaishnavi viveros MD> Date Vaishnavi Dietz MD CC: Aislinn Boykin NP 17-Jan-2018 Kidney and Bladder Result: Comments: See Note; NOTES: [facility] Imaging Services [address] [place] [address] Kidney and Bladder MR#: [id number] Acct: [id number] Name: HANNA CHAVEZ Rep #: [id number] DO B: 1950 F 67 From: Tee Weems PCP: Aislinn Boykin NP Status: REG CLI Study: Kidney and Bladder Date of Exam: 01/17/18 Exam# [id number] Ordering Dr: Vaishnavi Dietz MD STUDY: RENAL ULTRASOUND - C OMPLETE REASON FOR EXAM: Female, 67 years old. Urinary tract infection. TECHNIQUE: Ultrasound evaluation of the kidneys was performed with real-time and static sherman-scale imaging. COMPARISON: CT abdo men and pelvis April 14, 2009. FINDINGS: RIGHT KIDNEY: Normal location of the right kidney, which is normal in size. The right kidney measures 9.5 x 4.9 x 5.0 cm. There is a normal cortex of the right kidney. The renal cortex measures 1.4 cm. There is no right renal mass or cyst. There are no right renal calculi. There is no right hydronephrosis. DISTAL RIGHT U RETER: There is non-visualization of the distal right ureter. There is no demonstrated right ureterovesical junction calculus. There is a visualized right ureteral jet. LEFT KIDNEY: Normal location of the left kidney, which is normal in size. The left kidney measures 9.6 x 4.3 x 5.6 cm. There is a normal cortex of the left kidney. The renal cortex measures 1.4 cm. There is no left renal mass or cyst. There are no left renal calculi. There is no left hydronephrosis. DISTAL LEFT URETER: There is non-visualization of the distal left ureter. There is no demonstrated left ureterovesical junction calcul us. There is a visualized left ureteral jet. BLADDER: The distended urinary bladder has a volume of 73 ml. The empty urinary bladder has a volume of 20 ml. There is a normal wall thickness of the diste nded urinary bladder. Bladder wall measures 4- 5 mm. There is no demonstrated mass within the urinary bladder. There are no demonstrated bladder calculi. ORDER #: [id number] US/Kidney and Bladder IMPRESSION: Normal ultrasound of the kidneys and urinary bladder. No significant postvoid bladder residual. Postvoid bladder residual is 20 ml. Bladder wall thickness at the upper limits of normal. Electronically Signed: Tee Weems MD at 1:10 EDT , Service support , CC: Aislinn Boykin NP; Vaishnavi Dietz MD Mold Breaker: Signed 29-Dec-2017 Transvaginal Non- Result: Comments: See Note; NOTES: [facility] Imaging Services [address] [place] [address] Transvaginal Non- MR#: [id number] Acct: [id number] Name: HANNA CHAVEZ Rep #: [id number] : 1950 F 67 From: Jacky Hanson MD PCP: Aislinn Boykin NP Status: REG CLI Study: Transvaginal Non- Date of Exam: 12/29/17 Exam# [id number] Ordering Dr: Vaishnavi Dietz MD STUDY: U LTRASOUND TRANSVAGINAL CLINICAL: Female, 67 years old. Postmenopausal bleeding and spotting. TECHNIQUE: Transvaginal pelvic ultrasound. COMPARISON: CT abdomen and pelvis 03/16/2009 FINDINGS: The uterus measures 5.6 x 3.7 x 2.4 cm. Normal uterine cervix. The endometrium measures 4 mm in thickness, and is unremarkable in echotexture. There is no demonstrated endo metrial mass. There is no myometrial mass. The myometrium is mildly heterogeneous. The right ovary is not seen. There is no apparent right adnexal mass or suspicious cyst or free fluid. The left ovary measures 2.7 x 2.6 x 1.8 cm. There is no left ovarian cyst or ovarian mass. There is no visualized left adnexal mass or complex lesion. There is normal arterial and normal venous vascularity. There is no fluid in the cul-de-sac. 0026 US/Transvaginal Non- IMPRESSION: There is no significant thickening or abnormal echotexture of the endometriu m or any significant abnormality of the myometrium. The right ovary is not well seen. Left ovary appears normal. Electronically Signed: Jacky Hanson, at 15:49 EDT Tel , Ser vice support , CC: Aislinn Boykin NP; Vaishnavi Dietz MD Mold Breaker: Signed 09-Dec-2017 Downtime Report Result: Comments: See Note; NOTES: [facility] Medical Records Department [address] [place] [address] Downtime Report MR#: [id number] Acct: [id number] Name: HANNA CHAVEZ Rep #: [id number] : 1950 67 From: Elmer Moreno PCP: Aislinn Boykin NP Status: REG CLI This patient was seen during an EMR downtime November 22, 2017 - November 29, 2017. This patient may have a combination of paper and electronic documentation or all paper documentation. All documentation is viewable within the e-chart portion of [facility] for each patient visit. 09-Dec-2017 Downtime Report Result: Comments: See Note; NOTES: [facility] Medical Records Department [address] [place] [address] Downtime Report MR#: [id number] Acct: [id number] Name: HANNA CHAVEZ Rep #: [id number] : 1950 67 From: Elmer Moreno PCP: Aislinn Boykin NP Status: REG CLI This patient was seen during an EMR downtime November 22, 2017 - November 29, 2017. This patient may have a combination of paper and electronic documentation or all paper documentation. All documentation is viewable within the e-chart portion of [facility] for each patient visit. 03-Dec-2017 Foot min 3 Views Result: Comments: See Note; NOTES: [facility] Imaging Services [address] [place] [address] Foot min 3 Views MR#: [id number] Acct: [id number] Name: HANNA CHAVEZ Alanis Rep #: [id number] : 1950 F 67 From: Yahir Wolfe MD PCP: Aislinn Boykin NP Status: REG CLI Study: Foot min 3 Views Date of Exam: 12/03/17 Exam# [id number] Ordering Dr: Aislinn Boykin STUDY: X-RAY - LEFT FOOT CLINIC AL: Female, 67 years old. Pain. TECHNIQUE: 3 view(s) of the foot. COMPARISON: None. FINDINGS: Normal talus, calcaneus, and tarsal bones. Normal visualized subtala r, talonavicular, calcaneocuboid, tarsal and tarsometatarsal articulations. Normal metatarsi. Normal metatarsophalangeal joint of the great toe. Normal tibial and fibular sesamoid bones. Normal interp halangeal joint of the great toe. Normal phalanges of the great toe. Normal second through fifth metatarsophalangeal joints. Normal interphalangeal joints and phalanges of the lesser toes. There is no n-specific soft tissue swelling of the foot. There is no demonstrated fracture. RAD/Foot min 3 Views IMPRESSION: Soft tissue swelling. No fractur e or dislocation is seen. Electronically Signed: Yahir Wolfe MD at 15:12 EDT , Service support , CC: Aislinn Boykin NP Mold Breaker: Signed 23-Dec-2016 Chest PA and Lateral Result: Comments: See Note; NOTES: [facility] Imaging Services [address] [place] [address] [address] 4d Chest PA and Lateral MR#: [id number] Acct: [id number] Name: HANNA CHAVEZ Rep #: [id number] : 1950 F 66 From: Juan Woody MD PCP: Aislinn Boykin Status: REG CLI Study: Chest PA and Lateral Date of Exam: 12/23/16 Exam# [id number] Ordering Dr: Danielle Manriquez MD STUDY: X-RAY CHEST REASON FOR EXAM: Female, 66 years old. Cough TECHNIQUE: PA and lateral views of the chest. COMPARISON: 11/15/2014 FINDINGS: Left subclavian Port-A-Cath tip in the distal SVC.. The lungs are clear and expanded. There is no demonstrated pleural abnormality. Normal size heart. Normal mediastinum and heather. Normal visualized pulmonary arteries. Normal visuali zed aortic arch and descending thoracic aorta. Normal visualized thoracic spine. Normal visualized ribs, clavicles, and shoulders. There is no demonstrated abnormality of the visualized soft tissue st ructures of the upper abdomen. RAD/Chest PA and Lateral IMPRESSION: No acute pulmonary process Electronically Signed: Bryant Woody MD 12/23 at 11:44 EDT , Service support , CC: Aislinn Manriquez Mold Breaker: Signed 05-Jul-2016 Discharge Instruction Result: Comments: See Note; NOTES: [facility] Medical Records Department [address] [place] [address] Discharge Instruction 07/05/162116 MR#: [id number] Acct: [id number] Name: JOSH CHAVEZ Rep #: [id number] : 1950 66 From: Sarabjit Salinas MD PCP: Aislinn Boykin Status: REG ER ED Disposition - Plan for ED Patient: Disposition: Home or Assisted Living Chief Complaint: GI Bleed Inst ructions: ED Nausea Vomiting Referrals: Aislinn Boykin [Primary Care Provider] - 1- 2 Days if not improving What to do if you have Problems For any increased pain, shortness of breath, bleeding, nausea o r vomiting, chest pain, or any unexpected problems, contact your Primary Care Provider. Call [facility] ([phone]) or report to the closest Emergency Room. Call 911 if necessary. 07/05/16 21 19 <Electronically signed by Sarabjit Salinas MD> Date Sarabjit Salinas MD Cosigner Signature (If Indicated): Date CC: Aislinn Boykin 05-Jul-2016 Emergency Department Summary Result: Comments: See Note; NOTES: [facility] Medical Records Department [address] [place] [address] Emergency Department Summary 07/05/162113 MR#: [id number] Acct: [id number] Name: HANNA CHAVEZ Rep #: [id number] : 1950 66 From: Sarabjit Salinas MD PCP: Aislinn Boykin Status: REG ER - ER Visit Summary Date of Service: 07/05/16 Chief Complaint: Abdominal pain with nausea and vomit ing History of Present Illness: The patient is a 66 F who presents with abdominal pain the past several days. She has dark stool. She does report taking Kaopectate. She does complain of nausea with vom iting today 5. She reports 4-5 loose watery stools today. There is no blood, mucus noted in stool. Stool was not charcoal black, maroon or bloody. She localizes the pain to the upper abdomen periumbilic al region. She denies any urologic symptoms. She does complain of weakness. Physical Examination: Elderly heavyset woman who has a depressed affect. HEENT exam is aqua dry mucosa and tongue. Heart is r egular without murmur, gallop or rub. Lungs are clear to auscultation. Abdomen is soft minimal tenderness without guarding or rebound. Negative Cassidy sign, Rovsing sign or psoas sign. Neuro exam is non focal. There is no evidence of trauma. Test Results: White count is 11.4 thousand with 91 segs no bands. Electrode panel is marked for BUN 23 creatinine 0.74 with a BUN/creatinine ratio 31 1. Emergenc y Department Course and Treatment: She received normal saline wide open 2. She has passed p.o. challenge. She required 2 doses of Zofran. She was reassessed at 2019 and 2111. She is now smiling. She was discharged with a home pack of Zofran. Disposition: Charge to home in stable and improved condition Impression: 1. Abdominal pain with nausea and vomiting 2. Mild/moderate dehydration (prerenal azote javier) 3. History of hypertension 4. History of depression ED Disposition - Plan for ED Patient: Chief Complaint: GI Bleed Referrals: TeddyAislinn [Primary Care Provider] - What to do if you have Prob lems For any increased pain, shortness of breath, bleeding, nausea or vomiting, chest pain, or any unexpected problems, contact your Primary Care Provider. Call [employer] Registry ([phone]) or repor t to the closest Emergency Room. Call 911 if necessary. 07/05/162116 <Electronically signed by Sarabjit Salinas MD> Date Sarabjit Salinas MD Cos igner Signature (If Indicated): Date CC: Aislinn Boykin 16-Apr-2015 Emergency Department Summary Result: Comments: See Note; NOTES: [facility] Medical Records Department [address] [place] [address] Emergency Department Summary MR#: [id number] Acct: [id number] Name: HANNA CHAVEZ Rep #: [id number] : 1950 64 From: Breanna Ryan MD PCP: Carla Hughes MD Status: DEP ER DATE OF SERVICE: 04/15/2015 CHIEF COMPLAINT: Shingles pain. GONZALEZ HISTORY: The pat rober is a 64-year-old female who reports shingles to left side of her face for the past 4 days. She is already on acyclovir and Percocet 1 tablet every 6 hours. She states this is giving her hallucina tions. She states that this has happened before with narcotics. She normally takes Ultram at home as needed for chronic muscle pain. She has her last dose of Percocet was at 3:00 a.m. She comes in [facility] for pain control. PHYSICAL EXAMINATION: VITAL SIGNS: Significant for a blood pressure of 182/102, otherwise vitals unremarkable. HEAD AND NECK: Does reveal erythematous lesions to the left upper face and the nose consistent with shingles. There are no open lesions at this time. Pupils are equal. TMs are clear. HOSPITAL COURSE: The patient has already had 2 eye exams and has another schedul ed this afternoon to ensure no involvement of the eye itself. At this time, she will be advised to stop her Percocet. She will be given an IM injection of morphine and p.o. Zofran here. She will be g iven a low-dose fentanyl patch, stating that she has had problems with hallucinations with both Percocet and Vicodin. We will also add a short course of prednisone to try to get better pain relief. S he can use her Ultram at home for breakthrough pain only. She understands the plan. DISPOSITION: Discharge. IMPRESSION: Herpes zoster pain. Breanna Ryan MD T: NTS JOB: [id number] 04/16 2359 <Electronically signed by Breanna Ryan MD> Date Breanna Ryan MD Cosigner Signature (If Indicated): Date _ CC: Carla Hughes MD Date Dictated: 04/15/15816 Date Transcribed: 04/15/15816 Mold Breaker: Signed 15-Apr-2015 Discharge Instruction Result: Comments: See Note; NOTES: [facility] Medical Records Department [address] [place] [address] Discharge Instruction 04/15/15808 MR#: [id number] Acct: [id number] Name: HANNA CHAVEZ Rep #: [id number] : 1950 64 From: Breanna Ryan MD PCP: Carla Hughes MD Status: REG ER ED Disposition - Plan for ED Patient: Disposition: Home or Assisted Living Chief Complaint: Other, Pain/Inj Instructions: ED Herpes Zoster Prescriptions: Ondansetron [Zofran Odt] 4 mg PO Q8H PRN PRN #10 tablet PRN Reason: Nausea Fentanyl [Duragesic] 12 mcg TRANSDERM. Q3D #5 patch PredniSONE 60 mg PO DAILY #15 tablet Referrals: Carla Hughes MD [Primary Care Provider] - Additional Instructions: Follow-up for repeat eye exam today as scheduled. Stop your Percocet. Y ou can use the Fentanyl patch for pain (place a new patch every 3 days) and use your Ultram for breakthrough pain only. What to do if you have Problems For any increased pain, shortness of breat h, bleeding, nausea or vomiting, chest pain, or any unexpected problems, contact your doctor. Call [facility] ([phone]) or report to the closest Emergency Room. Call 911 if necessary. 04/15/15 0818 <Electronically signed by Breanna Ryan MD> Date Breanna Ryan MD Cosigner Signature (If Indicated): Date CC: Carla Hughes MD 03-Dec-2014 Emergency Department Summary Result: Comments: See Note; NOTES: [facility] Medical Records Department [address] [place] [address] Emergency Department Summary MR#: [id number] Acct: [id number] Name: HANNA CHAVEZ Rep #: [id number] : 1950 64 From: Shruthi Savage DO PCP: Carla Hughes MD Status: [facility] ER DATE OF SERVICE: 11/15/2014 CHIEF COMPLAINT: Dyspnea. HISTORY OF CHIEF COMPLAINT: A 64-y ear-old female with shortness of breath since yesterday. She states she had a hard time sleeping last night. She could not tolerate her CPAP for her sleep apnea and even after she took her machine off , she still felt like she was having hard time breathing. She states she had not peed much leading up to yesterday for a couple of days, but then today started urinating more frequently. She is concer mee because she has a history of primary carnitine deficiency ____ she has had episodes like this multiple times in the past of feeling short of breath. She states that of water comes out of her muscl es and typically she gets treated with diuretics. The patient feels bloated in her abdomen and she had some pressure in her upper abdomen and then some sharp pains bilaterally in both sides of her ch est this morning that has not resolved. PAST SURGICAL HISTORY: None. PRIMARY CARE PHYSICIAN: Dr. Hughes. The patient has a specialist at [facility] that treats her primary carnitine defici ency. ALLERGIES: REGLAN AND PENTAZOCINE. SOCIAL HISTORY: She does not smoke or drink alcohol. PHYSICAL EXAMINATION: VITAL SIGNS: On presentation, blood pressure 157/81, temperature 97, heart ra te 62, and respiratory rate is 18. GENERAL APPEARANCE: She is awake, alert, in no acute distress. HEENT: She is normocephalic and atraumatic. Pupils equal and reactive to light. TMs are clear. NECK : Supple. Mucous membranes moist. CARDIOVASCULAR: Heart is regular rate and rhythm. LUNGS: Good aeration. Some very faint rales noted in both bases. There is no accessory muscle use, no retractions. ABDOMEN: Soft and nontender. EXTREMITIES: Intact x4. Muscle strength +5/5. No real edema noted. Negative Homans sign. Exam otherwise unremarkable. EMERGENCY DEPARTMENT COURSE: EKG obtained on ar rival showed a sinus rhythm with a rate of 69 beats per minute. CBC with differential was normal. Chemistries unremarkable. LFTs normal. Lipase normal. Urinalysis was unremarkable other than she had s ome ketones in her urine. Troponin was less than 0.02. CK was normal at 97. BNP was just minimally elevated at 124. Her D-dimer was 0.54, therefore, a CTA of the chest was obtained. Prior to that, a c hest x-ray had been obtained, was read by myself as nothing acute. CTA of the chest showed no evidence of PE or dissection, nothing acute. At this point, discussed results with the patient. I did giv e her a DuoNeb aerosol here and she states that she feels much improved after the DuoNeb aerosol. She does have some question of history of some asthma stress induced. She has an inhaler at home. At t his point, it is unclear the etiology of her dyspnea. I certainly do not think it is cardiac in origin. The patient will be discharged to home. I suspect possibility of anxiety. She will be given a sc ript for some Ativan p.r.n. anxiety. Instructed to follow up with her primary care physician in 3-5 days. DIAGNOSES: 1. Dyspnea. 2. Anxiety reaction. DISPOSITION: The patient discharged to home in stable condition. Shruthi Savage DO T: NTS JOB: [id number] 12/03/14 2329 <Electronically signed by Shruthi Savage DO> Date Thalia Savage DO CC: Carla Hughes MD Date Dictated: 11/15/141931 Date Transcribed: 11/15/141931 Mold Breaker: Signed 16-Nov-2014 12 Lead Electrocardiogram Result: Comments: See Note; NOTES: [facility] Cardiovascular Services [address] [place] [address] 12 Lead EKG 11/15/14 1626 MR#: [id number] Acct: [id number] Name: HANNA CHAVEZ Rep #: [id number] : 1950 64 From: Lamont Lucas MD Attending Dr: Status: DEP ER Ordering Dr: Shruthi Savage DO Date: 11/15/14 Location: ED Sex: F C Admitted: Test Reason : SOB Blood Pressure : / mmHG Vent. Rate : 069 BPM Atrial Rate : 069 BPM P-R Int : 134 ms QRS Dur : 080 ms QT Int : 398 ms P-R-T Axes : 067 018 047 degrees QTc Int : 426 ms Normal sinus rhythm Hanna l ECG Confirmed by LAMONT LUCAS ([id number]), photographic editor LAKIA MORENO ([id number]) on 11/16/2014 10:58:54 AM Referred By: JERE Confirmed By:LAMONT LUCAS 11/16/14 1059 Date Lamont Lucas MD CC: Carla Hughes MD Date Dictated: 11/15/141625 Date Transcribed: 11/15/141625 Mold Breaker: Signed 15-Nov-2014 Discharge Instruction Result: Comments: See Note; NOTES: [facility] Medical Records Department [address] [place] [address] Discharge Instruction 11/15/141924 MR#: [id number] Acct: [id number] Name: HANNA CHAVEZ Rep #: [id number] : 1950 64 From: Shruthi Savage DO PCP: Carla Hughes MD Status: REG ER ED Disposition - Plan for ED Patient: Chief Complaint: Shortness of Breath Instruct ions: ED Dyspnea Prescriptions: Lorazepam [Ativan] 0.5 mg PO BID PRN PRN #14 tablet PRN Reason: Anxiety Referrals: Carla Hughes MD [Primary Care Provider] - 3-5 Days What to do if you have Pro blems For any increased pain, shortness of breath, bleeding, nausea or vomiting, chest pain, or any unexpected problems, contact your doctor. Call [facility] ([phone]) or report to the [facility] Emergency Room. Call 911 if necessary. 11/15/141927 <Electronically signed by hSruthi Savage DO> Date Shruthi Savage DO Co signer Signature (If Indicated): Date CC: Carla Hughes MD 15-Nov-2014 CTA Chest W/WO Contrast Result: Comments: See Note; NOTES: [facility] Imaging Services [address] [place] [address] CAT Scan Report MR#: [id number] Acct: [id number] Name: HANNA CHAVEZ Rep #: [id number] : 1950 F 64 From: Chele Puckett MD PCP: Carla Hughes MD Status: REG ER Study: CTA Chest W/WO Contrast Date of Exam: 11/15/14 Exam# [id number] Ordering Dr: Shruthi Savage DO STUDY: CTA C HEST REASON FOR EXAM: Female, 64 years old. MIDEPIGASTRIC PAIN X 1 DAY, HX SZ, ASTHMA AND A MUSCULAR DISEASE RADIATION DOSAGE (If Supplied By Facility): CTDIvol = ( 17.92 ) mGy, DLP = ( 708.35 ) m Gycm TECHNIQUE: The examination was performed with the intravenous administration of 100 ml of Isovue 370 contrast material. Post-processing of the angiographic images was performed, with multiplana r reformation and 3D reconstruction. COMPARISON: None. FINDINGS: Spinal fixation hardware is noted. There is a left Port-A-Cath and/or mediport in place. The tip is in the superior vena cava. . Normal enhancement of the main pulmonary artery and right and left pulmonary arteries. Normal enhancement of the bilateral peripheral pulmonary arteries. There is no demonstrated pulmonary embolism. There are thoracic aortic calcifications consistent for atherosclerotic disease. There is no dissection or hematoma noted in the thoracic aorta. There are calcifi cations of the coronary arteries. Normal mediastinum. Normal hilar regions. Normal visualized trachea and bronchi. The lungs are well expanded. Normal pulmonary parenchyma. Normal pleura. Norm al chest wall structures. There are degenerative changes of thoracic spine. Degenerative changes of the shoulders Normal visualized upper abdomen. IMPRESSION: NO demonstrated pulmonary embolism or arterial dissection. Electronically Signed: Chele Puckett MD at 19:05 EDT , Service support [phone], CC: Carla Hughes MD; Shruthi Savage DO Mold Breaker: Signed 15-Nov-2014 Chest PA and Lateral Result: Comments: See Note; NOTES: [facility] Imaging Services [address] [place] [address] Radiology Report MR#: [id number] Acct: [id number] Name: HANNA CHAVEZ Rep #: [id number] : 1950 F 64 From: Martín Morales MD PCP: Carla Hughes MD Status: DEP ER Study: Chest PA and Lateral Date of Exam: 11/15/14 Exam# [id number] Ordering Dr: Shruthi Savage DO STUDY: X- RAY CHEST REASON FOR EXAM: Female, 64 years old. Dyspnea and chest tightness. TECHNIQUE: PA and lateral views of the chest. COMPARISON: Comparison is made with prior examination dated May 23, 2015. FINDINGS: A left-sided jhony catheter is in situ with the tip at the junction of the superior vena cava and right atrium. Hyperinflation. There is no de monstrated pleural abnormality. Normal size heart. Normal mediastinum and heather. Normal visualized pulmonary arteries. There is atherosclerotic tortuosity of the aortic arch and descending thoracic a brandon. There are diffuse degenerative changes of the visualized thoracic spine. There is evidence of spinal fusion in the lower cervical spine. There is no demonstrated abnormality of the visualized soft tissue structures of the upper abdomen. IMPRESSION: No acute abnormality is seen. Electronically Signed: Martín Morales MD at 9:28 EDT Tel [phone], Service support [phone], 0062 RAD/Chest PA and Lateral IMPRESSION: No acute abnormality is seen. Electronically Signed: Martín Morales MD at 9:28 EDT Tel [id number], Service support [phone], CC: Carla Hughes MD; Shruthi Savage DO Mold Breaker: Signed 29-Dec-2013 L/S Spine Min 4 Views Result: Comments: See Note; NOTES: [facility] Imaging Services [address] [place] [address] Radiology Report MR#: [id number] Acct: [id number] Name: AHNNA CHAVEZ Rep #: [id number] : 1950 F 63 From: Nirmal Watts PCP: Carla Hughes MD Status: REG CLI Study: L/S Spine Min 4 Views Date of Exam: 12/29/13 Exam# [id number] Ordering Dr: Carla Hughes MD STUDY: X-RAY - LUMB AR SPINE REASON FOR EXAM: Female, 63 years old. Low back pain TECHNIQUE: 5 view(s) of the lumbar spine were obtained. COMPARISON: None FINDINGS: Normal lumb ar lordosis. There is no substantial scoliosis. There is a normal alignment of the vertebrae. Normal vertebral bodies and endplates. There is multi-level degenerative disc disease with multi-level d isc space narrowing. The soft tissue structures are unremarkable. IMPRESSION: Degenerative changes of the spine, as detailed above. No fracture. 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 Status: Active Smoking Status Name Dates Details Never smoker Vital Signs Date Test Result Details [id number] Temperature 97.9 f Comments: Method: Temporal Pulse 69 /min Comments: Pattern: Regular Respiration Rate 17 /min Comments: Pattern: Unlabored O2 SAT 97 % Comments: Room air BP Systolic 138 mm[Hg] Comments: Patient Position: Sitting; Cuff Location: Left Arm; Cuff Size: Standard BP Diastolic 82 mm[Hg] Comments: Patient Position: Sitting; Cuff Location: Left Arm; Cuff Size: Standard Weight 195.375 lb Height 64 in Body Mass Index Calculated 33.54 kg/m2 Body Surface Area Calculated 1.94 m2 :41 Temperature 98 f Comments: Method: Temporal Pulse 83 /min Comments: Pattern: Regular Respiration Rate 18 /min Comments: Pattern: Unlabored O2 SAT 95 % Comments: Room air BP Systolic 152 mm[Hg] Comments: Patient Position: Sitting; Cuff Location: Left Arm; Cuff Size: Standard BP Diastolic 92 mm[Hg] Comments: Patient Position: Sitting; Cuff Location: Left Arm; Cuff Size: Standard Weight 190 lb Height 64 in Body Mass Index Calculated 32.61 kg/m2 Body Surface Area Calculated 1.91 m2 :22 Temperature 97.8 f Comments: Method: Temporal Pulse 66 /min Comments: Pattern: Regular Respiration Rate 18 /min Comments: Pattern: Unlabored O2 SAT 97 % Comments: Room air BP Systolic 148 mm[Hg] Comments: Patient Position: Sitting; Cuff Location: Left Arm; Cuff Size: Standard BP Diastolic 90 mm[Hg] Comments: Patient Position: Sitting; Cuff Location: Left Arm; Cuff Size: Standard Weight 192.5 lb Height 64 in Body Mass Index Calculated 33.04 kg/m2 Body Surface Area Calculated 1.92 m2 :03 Temperature 97.8 f Comments: Method: Temporal Pulse 72 /min Comments: Pattern: Regular Respiration Rate 17 /min Comments: Pattern: Unlabored O2 SAT 95 % Comments: Room air BP Systolic 130 mm[Hg] Comments: Patient Position: Sitting; Cuff Location: Left Arm; Cuff Size: Standard BP Diastolic 78 mm[Hg] Comments: Patient Position: Sitting; Cuff Location: Left Arm; Cuff Size: Standard Weight 190.375 lb Height 64 in Body Mass Index Calculated 32.68 kg/m2 Body Surface Area Calculated 1.92 m2 :23 Temperature 98.5 f Comments: Method: Temporal Pulse 75 /min Comments: Pattern: Regular Respiration Rate 18 /min Comments: Pattern: Unlabored O2 SAT 95 % Comments: Room air BP Systolic 138 mm[Hg] Comments: Patient Position: Sitting; Cuff Location: Left Arm; Cuff Size: Standard BP Diastolic 82 mm[Hg] Comments: Patient Position: Sitting; Cuff Location: Left Arm; Cuff Size: Standard Weight 190.375 lb Height 64 in Body Mass Index Calculated 32.68 kg/m2 Body Surface Area Calculated 1.92 m2 :55 Temperature 97.8 f Comments: Method: Temporal Pulse 70 /min Comments: Pattern: Regular Respiration Rate 16 /min Comments: Pattern: Unlabored O2 SAT 96 % Comments: Room air BP Systolic 130 mm[Hg] Comments: Patient Position: Sitting; Cuff Location: Left Arm; Cuff Size: Standard BP Diastolic 80 mm[Hg] Comments: Patient Position: Sitting; Cuff Location: Left Arm; Cuff Size: Standard Weight 190.375 lb Height 64 in Body Mass Index Calculated 32.68 kg/m2 Body Surface Area Calculated 1.92 m2 :51 Temperature 97.2 f Pulse 68 /min Comments: Pattern: Regular Respiration Rate 18 /min Comments: Pattern: Unlabored O2 SAT 98 % Comments: Room air BP Systolic 150 mm[Hg] Comments: Patient Position: Sitting; Cuff Location: Left Arm; Cuff Size: Standard BP Diastolic 84 mm[Hg] Comments: Patient Position: Sitting; Cuff Location: Left Arm; Cuff Size: Standard Weight 190.375 lb Height 64 in Body Mass Index Calculated 32.68 kg/m2 Body Surface Area Calculated 1.92 m2 :02 Temperature 97.1 f Pulse 63 /min Comments: Pattern: Regular Respiration Rate 18 /min Comments: Pattern: Unlabored O2 SAT 96 % Comments: Room air BP Systolic 142 mm[Hg] Comments: Patient Position: Sitting; Cuff Location: Left Arm; Cuff Size: Standard BP Diastolic 82 mm[Hg] Comments: Patient Position: Sitting; Cuff Location: Left Arm; Cuff Size: Standard Weight 190.375 lb Height 64 in Body Mass Index Calculated 32.68 kg/m2 Body Surface Area Calculated 1.92 m2 :11 Temperature 97.9 f Pulse 76 /min Comments: Pattern: Regular Respiration Rate 16 /min Comments: Pattern: Unlabored O2 SAT 93 % Comments: Room air BP Systolic 124 mm[Hg] Comments: Patient Position: Sitting; Cuff Location: Left Arm; Cuff Size: Standard BP Diastolic 70 mm[Hg] Comments: Patient Position: Sitting; Cuff Location: Left Arm; Cuff Size: Standard Weight 190.375 lb Height 64 in Body Mass Index Calculated 32.68 kg/m2 Body Surface Area Calculated 1.92 m2 :05 Temperature 97.4 f Pulse 68 /min Comments: Pattern: Regular Respiration Rate 16 /min Comments: Pattern: Unlabored O2 SAT 97 % Comments: Room air BP Systolic 124 mm[Hg] Comments: Patient Position: Sitting; Cuff Location: Left Arm; Cuff Size: Standard BP Diastolic 84 mm[Hg] Comments: Patient Position: Sitting; Cuff Location: Left Arm; Cuff Size: Standard Weight 188.125 lb Height 64 in Body Mass Index Calculated 32.29 kg/m2 Body Surface Area Calculated 1.91 m2 :29 Temperature 97.9 f Pulse 61 /min Comments: Pattern: Regular Respiration Rate 17 /min Comments: Pattern: Unlabored O2 SAT 97 % Comments: Room air BP Systolic 118 mm[Hg] Comments: Patient Position: Sitting; Cuff Location: Left Arm; Cuff Size: Standard BP Diastolic 78 mm[Hg] Comments: Patient Position: Sitting; Cuff Location: Left Arm; Cuff Size: Standard Weight 190 lb Height 64 in Body Mass Index Calculated 32.61 kg/m2 Body Surface Area Calculated 1.91 m2 :19 Temperature 98 f Pulse 55 /min Comments: Pattern: Regular Respiration Rate 15 /min Comments: Pattern: Unlabored O2 SAT 96 % Comments: Room air BP Systolic 160 mm[Hg] Comments: Patient Position: Sitting; Cuff Location: Left Arm; Cuff Size: Standard BP Diastolic 92 mm[Hg] Comments: Patient Position: Sitting; Cuff Location: Left Arm; Cuff Size: Standard Weight 190 lb Height 64 in Body Mass Index Calculated 32.61 kg/m2 Body Surface Area Calculated 1.91 m2 :35 Temperature 98.7 f Pulse 63 /min Comments: Pattern: Regular Respiration Rate 15 /min Comments: Pattern: Unlabored O2 SAT 98 % Comments: Room air BP Systolic 160 mm[Hg] Comments: Patient Position: Sitting; Cuff Location: Left Arm; Cuff Size: Standard BP Diastolic 88 mm[Hg] Comments: Patient Position: Sitting; Cuff Location: Left Arm; Cuff Size: Standard Weight 190 lb Height 64 in Body Mass Index Calculated 32.61 kg/m2 Body Surface Area Calculated 1.91 m2 :19 Temperature 98.1 f Comments: Method: Temporal Pulse 72 /min Comments: Pattern: Regular Respiration Rate 16 /min Comments: Pattern: Unlabored O2 SAT 98 % Comments: Room air BP Systolic 132 mm[Hg] Comments: Patient Position: Sitting; Cuff Location: Left Arm; Cuff Size: Standard BP Diastolic 74 mm[Hg] Comments: Patient Position: Sitting; Cuff Location: Left Arm; Cuff Size: Standard Weight 184.25 lb Height 64 in Body Mass Index Calculated 31.63 kg/m2 Body Surface Area Calculated 1.89 m2 :19 Temperature 97.5 f Pulse 63 /min Comments: Pattern: Regular Respiration Rate 16 /min Comments: Pattern: Unlabored O2 SAT 97 % Comments: Room air BP Systolic 138 mm[Hg] Comments: Patient Position: Sitting; Cuff Location: Left Arm; Cuff Size: Standard BP Diastolic 84 mm[Hg] Comments: Patient Position: Sitting; Cuff Location: Left Arm; Cuff Size: Standard Weight 184.25 lb Height 64 in Body Mass Index Calculated 31.63 kg/m2 Body Surface Area Calculated 1.89 m2 :25 Temperature 98 f Pulse 70 /min Comments: Pattern: Regular Respiration Rate 16 /min Comments: Pattern: Unlabored O2 SAT 97 % Comments: Room air BP Systolic 132 mm[Hg] Comments: Patient Position: Sitting; Cuff Location: Left Arm; Cuff Size: Standard BP Diastolic 84 mm[Hg] Comments: Patient Position: Sitting; Cuff Location: Left Arm; Cuff Size: Standard Weight 190.375 lb Height 64 in Body Mass Index Calculated 32.68 kg/m2 Body Surface Area Calculated 1.92 m2 :31 Comments: [facility] Temperature 97.2 f Pulse 86 /min Comments: Pattern: Regular Respiration Rate 16 /min Comments: Pattern: Unlabored O2 SAT 98 % Comments: Room air BP Systolic 124 mm[Hg] Comments: Patient Position: Sitting; Cuff Location: Left Arm; Cuff Size: Standard BP Diastolic 78 mm[Hg] Comments: Patient Position: Sitting; Cuff Location: Left Arm; Cuff Size: Standard Weight 190.375 lb Height 64 in Body Mass Index Calculated 32.68 kg/m2 Body Surface Area Calculated 1.92 m2 :57 Comments: Glaucoma screening done at [facility] yearly Temperature 97.9 f Pulse 66 /min Comments: Pattern: Regular Respiration Rate 16 /min Comments: Pattern: Unlabored O2 SAT 97 % Comments: Room air BP Systolic 148 mm[Hg] Comments: Patient Position: Sitting; Cuff Location: Left Arm; Cuff Size: Standard BP Diastolic 90 mm[Hg] Comments: Patient Position: Sitting; Cuff Location: Left Arm; Cuff Size: Standard Weight 190.375 lb Height 64 in Body Mass Index Calculated 32.68 kg/m2 Body Surface Area Calculated 1.92 m2 :36 Temperature 99 f Comments: Method: Oral Pulse 65 /min Comments: Pattern: Regular Respiration Rate 18 /min Comments: Pattern: Unlabored O2 SAT 98 % Comments: Room air BP Systolic 138 mm[Hg] Comments: Patient Position: Sitting; Cuff Location: Left Arm; Cuff Size: Standard BP Diastolic 64 mm[Hg] Comments: Patient Position: Sitting; Cuff Location: Left Arm; Cuff Size: Standard Weight 192 lb Height 64 in Body Mass Index Calculated 32.96 kg/m2 Body Surface Area Calculated 1.92 m2 :35 Temperature 98.3 f Comments: Method: Oral Pulse 60 /min Comments: Pattern: Regular Respiration Rate 16 /min O2 SAT 92 % Comments: Room air BP Systolic 138 mm[Hg] Comments: Patient Position: Sitting; Cuff Location: Left Arm; Cuff Size: Standard BP Diastolic 78 mm[Hg] Comments: Patient Position: Sitting; Cuff Location: Left Arm; Cuff Size: Standard Weight 192 lb Height 64 in Body Mass Index Calculated 32.96 kg/m2 Body Surface Area Calculated 1.92 m2 :34 Temperature 97.3 f Comments: Method: Oral Pulse 74 /min Comments: Pattern: Regular Respiration Rate 16 /min O2 SAT 98 % Comments: Room air BP Systolic 126 mm[Hg] Comments: Patient Position: Sitting; Cuff Location: Left Arm; Cuff Size: Standard BP Diastolic 80 mm[Hg] Comments: Patient Position: Sitting; Cuff Location: Left Arm; Cuff Size: Standard Weight 192 lb Height 64 in Body Mass Index Calculated 32.96 kg/m2 Body Surface Area Calculated 1.92 m2 :37 Temperature 98 f Comments: Method: Oral Pulse 68 /min Comments: Pattern: Regular Respiration Rate 16 /min Comments: Pattern: Unlabored O2 SAT 97 % Comments: Room air BP Systolic 140 mm[Hg] Comments: Patient Position: Sitting; Cuff Location: Left Arm; Cuff Size: Standard BP Diastolic 82 mm[Hg] Comments: Patient Position: Sitting; Cuff Location: Left Arm; Cuff Size: Standard Weight 194.1875 lb :52 Temperature 98.1 f Comments: Method: Oral Pulse 66 /min Comments: Pattern: Regular Respiration Rate 15 /min O2 SAT 98 % Comments: Room air BP Systolic 122 mm[Hg] Comments: Patient Position: Sitting; Cuff Location: Left Arm; Cuff Size: Standard BP Diastolic 80 mm[Hg] Comments: Patient Position: Sitting; Cuff Location: Left Arm; Cuff Size: Standard Weight 189.375 lb Height 64 in Body Mass Index Calculated 32.51 kg/m2 Body Surface Area Calculated 1.91 m2 :37 Temperature 101 f Comments: Method: Oral Pulse 82 /min Comments: Pattern: Regular O2 SAT 99 % Comments: Room air BP Systolic 128 mm[Hg] Comments: Patient Position: Sitting; Cuff Location: Left Arm; Cuff Size: Standard BP Diastolic 82 mm[Hg] Comments: Patient Position: Sitting; Cuff Location: Left Arm; Cuff Size: Standard Weight 183.1875 lb Height 64 in Body Mass Index Calculated 31.44 kg/m2 Body Surface Area Calculated 1.88 m2 :28 Temperature 98.5 f Comments: Method: Oral Pulse 60 /min Comments: Pattern: Regular Respiration Rate 20 /min Comments: Pattern: Unlabored BP Systolic 160 mm[Hg] Comments: Patient Position: Sitting; Cuff Location: Left Arm; Cuff Size: Large BP Diastolic 98 mm[Hg] Comments: Patient Position: Sitting; Cuff Location: Left Arm; Cuff Size: Large Weight 183.1875 lb Height 64 in Body Mass Index Calculated 31.44 kg/m2 Body Surface Area Calculated 1.88 m2 :25 Temperature 98.6 f Comments: Method: Oral Pulse 66 /min Comments: Pattern: Regular Respiration Rate 15 /min O2 SAT 98 % Comments: Room air BP Systolic 138 mm[Hg] Comments: Patient Position: Sitting; Cuff Location: Left Arm; Cuff Size: Standard BP Diastolic 78 mm[Hg] Comments: Patient Position: Sitting; Cuff Location: Left Arm; Cuff Size: Standard Weight 183.1875 lb Height 64 in Body Mass Index Calculated 31.44 kg/m2 Body Surface Area Calculated 1.88 m2 :58 Temperature 98.4 f Comments: Method: Oral Pulse 60 /min Comments: Pattern: Regular Respiration Rate 18 /min Comments: Pattern: Unlabored O2 SAT 98 % Comments: Room air BP Systolic 150 mm[Hg] Comments: Patient Position: Sitting; Cuff Location: Left Arm; Cuff Size: Standard BP Diastolic 86 mm[Hg] Comments: Patient Position: Sitting; Cuff Location: Left Arm; Cuff Size: Standard Weight 188 lb Height 64 in Body Mass Index Calculated 32.27 kg/m2 Body Surface Area Calculated 1.91 m2 :20 Temperature 98.5 f Comments: Method: Oral Pulse 62 /min Comments: Pattern: Regular Respiration Rate 16 /min BP Systolic 144 mm[Hg] Comments: Patient Position: Sitting; Cuff Location: Left Arm; Cuff Size: Standard BP Diastolic 88 mm[Hg] Comments: Patient Position: Sitting; Cuff Location: Left Arm; Cuff Size: Standard Weight 184.0625 lb Height 64 in Body Mass Index Calculated 31.59 kg/m2 Body Surface Area Calculated 1.89 m2 :00 Temperature 98.8 f Comments: Method: Oral Pulse 63 /min Comments: Pattern: Regular Respiration Rate 18 /min O2 SAT 98 % Comments: Room air BP Systolic 122 mm[Hg] Comments: Patient Position: Sitting; Cuff Location: Left Arm; Cuff Size: Standard BP Diastolic 80 mm[Hg] Comments: Patient Position: Sitting; Cuff Location: Left Arm; Cuff Size: Standard Weight 182.1875 lb Height 64 in Body Mass Index Calculated 31.27 kg/m2 Body Surface Area Calculated 1.88 m2 :56 Temperature 98.4 f Comments: Method: Oral Pulse 58 /min Comments: Pattern: Regular O2 SAT 96 % Comments: Room air BP Systolic 126 mm[Hg] Comments: Patient Position: Sitting; Cuff Location: Left Arm; Cuff Size: Standard BP Diastolic 82 mm[Hg] Comments: Patient Position: Sitting; Cuff Location: Left Arm; Cuff Size: Standard Weight 182.1875 lb Height 64 in Body Mass Index Calculated 31.27 kg/m2 Body Surface Area Calculated 1.88 m2 :21 Temperature 98.7 f Comments: Method: Oral Pulse 66 /min Comments: Pattern: Regular Respiration Rate 18 /min Comments: Pattern: Unlabored O2 SAT 97 % Comments: Room air BP Systolic 142 mm[Hg] Comments: Patient Position: Sitting; Cuff Location: Left Arm; Cuff Size: Standard BP Diastolic 78 mm[Hg] Comments: Patient Position: Sitting; Cuff Location: Left Arm; Cuff Size: Standard Weight 182.1875 lb Height 64 in Body Mass Index Calculated 31.27 kg/m2 Body Surface Area Calculated 1.88 m2 :27 Temperature 99.2 f Comments: Method: Oral Pulse 78 /min Comments: Pattern: Regular Respiration Rate 18 /min O2 SAT 94 % Comments: Room air BP Systolic 114 mm[Hg] Comments: Patient Position: Sitting; Cuff Location: Left Arm; Cuff Size: Standard BP Diastolic 76 mm[Hg] Comments: Patient Position: Sitting; Cuff Location: Left Arm; Cuff Size: Standard Weight 182.1875 lb Height 64 in Body Mass Index Calculated 31.27 kg/m2 Body Surface Area Calculated 1.88 m2 :18 Temperature 97.8 f Comments: Method: Oral Pulse 64 /min Comments: Pattern: Regular Respiration Rate 17 /min Comments: Pattern: Unlabored O2 SAT 94 % Comments: Room air BP Systolic 124 mm[Hg] Comments: Patient Position: Sitting; Cuff Location: Left Arm; Cuff Size: Standard BP Diastolic 78 mm[Hg] Comments: Patient Position: Sitting; Cuff Location: Left Arm; Cuff Size: Standard Weight 182.1875 lb Height 64 in Body Mass Index Calculated 31.27 kg/m2 Body Surface Area Calculated 1.88 m2 :58 Pulse 72 /min Comments: Pattern: Regular Respiration Rate 16 /min Comments: Pattern: Unlabored BP Systolic 128 mm[Hg] Comments: Patient Position: Sitting; Cuff Location: Left Arm; Cuff Size: Standard BP Diastolic 78 mm[Hg] Comments: Patient Position: Sitting; Cuff Location: Left Arm; Cuff Size: Standard Weight 178 lb Height 64 in Body Mass Index Calculated 30.55 kg/m2 Body Surface Area Calculated 1.86 m2 :41 Temperature 96.5 f Comments: Method: Oral Pulse 78 /min Comments: Pattern: Regular Respiration Rate 17 /min Comments: Pattern: Unlabored BP Systolic 132 mm[Hg] Comments: Patient Position: Sitting; Cuff Location: Left Arm; Cuff Size: Standard BP Diastolic 82 mm[Hg] Comments: Patient Position: Sitting; Cuff Location: Left Arm; Cuff Size: Standard Weight 178 lb :57 Temperature 96.7 f Comments: Method: Oral Pulse 72 /min Comments: Pattern: Regular BP Systolic 142 mm[Hg] Comments: Patient Position: Sitting; Cuff Location: Left Arm; Cuff Size: Standard BP Diastolic 88 mm[Hg] Comments: Patient Position: Sitting; Cuff Location: Left Arm; Cuff Size: Standard :19 Temperature 97.9 f Comments: Method: Oral Pulse 60 /min Comments: Pattern: Regular Respiration Rate 18 /min Comments: Pattern: Unlabored BP Systolic 128 mm[Hg] Comments: Patient Position: Sitting; Cuff Location: Left Arm; Cuff Size: Standard BP Diastolic 90 mm[Hg] Comments: Patient Position: Sitting; Cuff Location: Left Arm; Cuff Size: Standard Weight 178 lb :53 Temperature 97.4 f Comments: Method: Oral Pulse 70 /min Comments: Pattern: Regular Respiration Rate 16 /min Comments: Pattern: Unlabored BP Systolic 142 mm[Hg] Comments: Patient Position: Sitting; Cuff Location: Left Arm; Cuff Size: Standard BP Diastolic 84 mm[Hg] Comments: Patient Position: Sitting; Cuff Location: Left Arm; Cuff Size: Standard Weight 178 lb :51 Temperature 97.4 f Comments: Method: Oral Pulse 72 /min Comments: Pattern: Regular Respiration Rate 17 /min Comments: Pattern: Unlabored BP Systolic 138 mm[Hg] Comments: Patient Position: Sitting; Cuff Location: Left Arm; Cuff Size: Standard BP Diastolic 84 mm[Hg] Comments: Patient Position: Sitting; Cuff Location: Left Arm; Cuff Size: Standard Weight 195.0625 lb :47 Temperature 97.4 f Comments: Method: Oral Pulse 72 /min Comments: Pattern: Regular Respiration Rate 18 /min Comments: Pattern: Unlabored BP Systolic 148 mm[Hg] Comments: Patient Position: Sitting; Cuff Location: Left Arm; Cuff Size: Standard BP Diastolic 86 mm[Hg] Comments: Patient Position: Sitting; Cuff Location: Left Arm; Cuff Size: Standard Weight 195.0625 lb :56 Temperature 95.9 f Comments: Method: Oral Pulse 70 /min Comments: Pattern: Regular Respiration Rate 18 /min Comments: Pattern: Unlabored O2 SAT 97 % Comments: Room air BP Systolic 136 mm[Hg] Comments: Patient Position: Sitting; Cuff Location: Left Arm; Cuff Size: Standard BP Diastolic 82 mm[Hg] Comments: Patient Position: Sitting; Cuff Location: Left Arm; Cuff Size: Standard Weight 195.0625 lb :54 Pulse 78 /min Comments: Pattern: Regular Respiration Rate 18 /min Comments: Pattern: Unlabored BP Systolic 150 mm[Hg] Comments: Patient Position: Sitting; Cuff Location: Left Arm; Cuff Size: Large BP Diastolic 80 mm[Hg] Comments: Patient Position: Sitting; Cuff Location: Left Arm; Cuff Size: Large Weight 195.0625 lb :44 Temperature 97.2 f Comments: Method: Oral Pulse 64 /min Comments: Pattern: Regular Respiration Rate 16 /min Comments: Pattern: Unlabored BP Systolic 142 mm[Hg] Comments: Patient Position: Sitting; Cuff Location: Left Arm; Cuff Size: Standard BP Diastolic 84 mm[Hg] Comments: Patient Position: Sitting; Cuff Location: Left Arm; Cuff Size: Standard Weight 195.0625 lb :53 Temperature 98.1 f Comments: Method: Oral Pulse 60 /min Comments: Pattern: Regular Respiration Rate 16 /min Comments: Pattern: Unlabored BP Systolic 124 mm[Hg] Comments: Patient Position: Supine; Cuff Location: Left Arm; Cuff Size: Standard BP Diastolic 76 mm[Hg] Comments: Patient Position: Supine; Cuff Location: Left Arm; Cuff Size: Standard Weight 205 lb Height 64 in Body Mass Index Calculated 35.19 kg/m2 Body Surface Area Calculated 1.98 m2 Head Circumference 0.00 cm :13 Pulse 72 /min Comments: Pattern: Regular Respiration Rate 16 /min Comments: Pattern: Unlabored BP Systolic 138 mm[Hg] Comments: Patient Position: Supine; Cuff Location: Left Arm; Cuff Size: Standard BP Diastolic 80 mm[Hg] Comments: Patient Position: Supine; Cuff Location: Left Arm; Cuff Size: Standard Weight 202.125 lb Height 64 in Body Mass Index Calculated 34.69 kg/m2 Body Surface Area Calculated 1.96 m2 Head Circumference 0.00 cm :38 Pulse 62 /min Comments: Pattern: Regular Respiration Rate 16 /min Comments: Pattern: Unlabored BP Systolic 132 mm[Hg] Comments: Patient Position: Supine; Cuff Location: Left Arm; Cuff Size: Standard BP Diastolic 84 mm[Hg] Comments: Patient Position: Supine; Cuff Location: Left Arm; Cuff Size: Standard Weight 202.125 lb Height 64 in Body Mass Index Calculated 34.69 kg/m2 Body Surface Area Calculated 1.96 m2 Head Circumference 0.00 cm :03 Pulse 60 /min Comments: Pattern: Regular Respiration Rate 16 /min Comments: Pattern: Unlabored BP Systolic 138 mm[Hg] Comments: Patient Position: Supine; Cuff Location: Left Arm; Cuff Size: Standard BP Diastolic 76 mm[Hg] Comments: Patient Position: Supine; Cuff Location: Left Arm; Cuff Size: Standard Weight 195.125 lb Height 64 in Body Mass Index Calculated 33.49 kg/m2 Body Surface Area Calculated 1.94 m2 Head Circumference 0.00 cm :37 Temperature 98.5 f Comments: Method: Oral Pulse 68 /min Comments: Pattern: Regular Respiration Rate 16 /min Comments: Pattern: Unlabored BP Systolic 124 mm[Hg] Comments: Patient Position: Supine; Cuff Location: Left Arm; Cuff Size: Standard BP Diastolic 84 mm[Hg] Comments: Patient Position: Supine; Cuff Location: Left Arm; Cuff Size: Standard Weight 198.3125 lb Height 65 in Body Mass Index Calculated 33 kg/m2 Body Surface Area Calculated 1.97 m2 Head Circumference 0.00 cm :30 Temperature 98.1 f Comments: Method: Oral Pulse 64 /min Comments: Pattern: Regular Respiration Rate 18 /min Comments: Pattern: Unlabored BP Systolic 124 mm[Hg] Comments: Patient Position: Sitting; Cuff Location: Left Arm; Cuff Size: Standard BP Diastolic 82 mm[Hg] Comments: Patient Position: Sitting; Cuff Location: Left Arm; Cuff Size: Standard Weight 198.3125 lb Height 0 in Head Circumference 0.00 cm :48 Temperature 98.8 f Comments: Method: Oral Pulse 66 /min Comments: Pattern: Regular Respiration Rate 16 /min Comments: Pattern: Unlabored BP Systolic 126 mm[Hg] Comments: Patient Position: Sitting; Cuff Location: Left Arm; Cuff Size: Standard BP Diastolic 80 mm[Hg] Comments: Patient Position: Sitting; Cuff Location: Left Arm; Cuff Size: Standard Weight 201 lb Height 65 in Body Mass Index Calculated 33.45 kg/m2 Body Surface Area Calculated 1.98 m2 Head Circumference 0.00 cm :03 Temperature 99.2 f Comments: Method: Oral Pulse 60 /min Comments: Pattern: Regular Respiration Rate 18 /min Comments: Pattern: Unlabored BP Systolic 118 mm[Hg] Comments: Patient Position: Sitting; Cuff Location: Left Arm; Cuff Size: Large BP Diastolic 82 mm[Hg] Comments: Patient Position: Sitting; Cuff Location: Left Arm; Cuff Size: Large Weight 202 lb Height 65 in Body Mass Index Calculated 33.61 kg/m2 Body Surface Area Calculated 1.99 m2 Head Circumference 0.00 cm Results Date Description Value Details [id number]-Mhp-[id number] Vitamin B12 > 2000 pg/mL (Abnormal) Comments: [facility] [address] [place], [place], [id number] Range: 211-911 83-Pog-264927:11 CBC W/Diff, Automated Comments: [facility] [address] [place], [place], [id number] Absolute Lymph 1.66 {X10_3/ul} (Normal) Range: 0.83-4.51 Absolute Neut 3.6 {X10_3/uL} (Normal) Range: 2.0-7.7 IM GRAN % 0.200 % (Normal) Range: 0.0-0.9 Comments: IG% - Immature Granulocytes (promyelocytes, myelocytes andmetamyelocytes) > 1% indicates that a LEFT SHIFT is Present. BASO% 0.3 % (Normal) Range: 0-1 EO% 1.0 % (Normal) Range: 0-5 MONO% 9.5 % (Normal) Range: 0-10 LY% 28.0 % (Normal) Range: 19-41 NEUT% 61.0 % (Normal) Range: 47-70 MPV 9.7 fL (Normal) Range: 6.2-12.0 PLT 305 K/mm3 (Normal) Range: 150-450 RDW SD 47.8 fL (Abnormal) Range: 35.1-43.9 RDW CV 13.6 % (Normal) Range: 11.6-14.6 MCHC 31.2 {g/gl} (Abnormal) Range: 32-36 MCH 30.0 pg (Normal) Range: 27.0-32.0 MCV 96.2 fL (Normal) Range: 81-99 HCT 40.4 % (Normal) Range: 37-47 HGB 12.6 g/dL (Normal) Range: 12.0-15.0 RBC 4.20 {M/mm3} (Normal) Range: 4.2-5.4 WBC 5.9 K/mm3 (Normal) Range: 4.4-11.0 98-Mzh-237520:11 Comprehensive Metabolic Profil Comments: [facility] [address] [place], [place], [id number] GAP 8 (Normal) Range: 5-15 CO2 26.0 mmol/L (Normal) Range: 21.0-32.0 CL 110 mmol/L (Abnormal) Range: 98-107 K 3.8 mmol/L (Normal) Range: 3.5-5.1 NA 144 mmol/L (Normal) Range: 136-145 T BILI 0.30 mg/dL (Normal) Range: 0.20-1.00 ALT 22 U/L (Normal) Range: 13-56 ALK P 66 U/L (Normal) Range: 45-117 AST 19 U/L (Normal) Range: 15-37 CA 8.6 mg/dL (Normal) Range: 8.5-10.1 A/G 0.9 {RATIO} (Normal) Range: 0.9-2.4 GLOB 3.6 g/dL (Normal) Range: 2.2-4.2 ALB 3.1 g/dL (Abnormal) Range: 3.2-5.0 T PROT 6.7 g/dL (Normal) Range: 6.4-8.2 BUN/CRE 19.3 {RATIO} (Normal) Range: 10-20 EST GFR - AA 87 mL/min (Normal) Comments: GFR Calc EST GFR 72 mL/min (Normal) Comments: Non- GFR Calc CREAT,SERUM 0.83 mg/dL (Normal) Range: 0.55-1.02 Comments: The validity of the calculated GFR AND GFRAA in patients over70 years has not been determined. Clinical correlation isessential. BUN 16 mg/dL (Normal) Range: 7-18 GLU 96 mg/dL (Normal) Range: 74-106 Comments: Please note revised GLUCOSE reference range tcqnegwqk75/02/2018. 70-Kvh-333098:47 Culture, Urine Comments: [facility] [address] [place], [id number] CUUR See Note (Normal) Comments: Urine CultureORGANISM 1: Mixed Gram Pos AND Gram Neg OrgColony Count 50,000-80,000MIX CULTURE Mixed contaminants. Submit a new specimen if indicated. 68-Wrm-684743:47 Urinalysis, Complete Comments: How was Urine Obtained? [facility] [address] [place], [address] MUCUS, URINE 0 SEEN {/hpf} (Normal) BACTERIA 0 SEEN {/hpf} (Normal) SQUAM EPI 0-5 SEEN {/hpf} (Normal) Range: 5-10 RBC-UA 0 SEEN {/hpf} (Normal) Range: 0-5 WBC 0 SEEN {/hpf} (Normal) Range: 0-5 LEUK ESTERASE Negative /ul (Normal) OCCULT BLOOD-UR 10 /ul (Abnormal) NITRITE UR Negative (Normal) UROBILI Normal mg/dL (Normal) PROT DIPSTX 15 mg/dL (Abnormal) pH UR 5.0 (Normal) Range: 5.0 - 8.0 SP.GR. DIPSTX 1.025 (Normal) Range: 1.002-1.030 KETONE UR 5 mg/dL (Abnormal) BILIRUBIN URINE Negative mg/dL (Normal) GLUCOSE, UR Normal mg/dL (Normal) CLARITY Clear (Normal) COLOR SEE COMMENT BELOW (Normal) Comments: Visual Urine Color: GREEN 58-Juw-981691:41 TSH ([id number]) Comments: PATIENT NOT FASTINGPERFORMED BY: [facility] [id number] TSH 2.310 {uIU/mL} (Normal) Range: 0.450-4.500 39-Rco-472053:28 URINE DELMAR CULTURE-IDENTIFICATN Comments: PATIENT NOT FASTINGPERFORMED BY: [employer] [facility] [id number] Information: SRC:UR ([id number]) Result 1 MUG (Normal) Comments: Mixed urogenital flora1,000 Colonies/mL Urine Culture,Comprehensive Final report (Normal) 65-Jmz-200463:41 Metabolic Panel, Comprehensive Comments: PATIENT NOT FASTINGPERFORMED BY: [employer] [facility] [id number] ([id number]) ALT (SGPT) 16 [iU]/L (Normal) Range: 0-32 AST (SGOT) 20 [iU]/L (Normal) Range: 0-40 Alkaline Phosphatase 65 [iU]/L (Normal) Range: 39-117 Bilirubin, Total 0.5 mg/dL (Normal) Range: 0.0-1.2 A/G Ratio 1.5 (Normal) Range: 1.2-2.2 Globulin, Total 2.4 g/dL (Normal) Range: 1.5-4.5 Albumin 3.7 g/dL (Normal) Range: 3.6-4.8 Protein, Total 6.1 g/dL (Normal) Range: 6.0-8.5 Calcium 8.4 mg/dL (Abnormal) Range: 8.7-10.3 Carbon Dioxide, Total 24 mmol/L (Normal) Range: 20-29 Comments: Please note reference interval change Chloride 108 mmol/L (Abnormal) Range: 96-106 Potassium 4.7 mmol/L (Normal) Range: 3.5-5.2 Sodium 145 mmol/L (Abnormal) Range: 134-144 BUN/Creatinine Ratio 23 (Normal) Range: 12-28 eGFR If Africn Am 105 mL/min/1.73 (Normal) eGFR If NonAfricn Am 91 mL/min/1.73 (Normal) Creatinine 0.65 mg/dL (Normal) Range: 0.57-1.00 BUN 15 mg/dL (Normal) Range: 8-27 Glucose 89 mg/dL (Normal) Range: 65-99 94-Lzs-077407:02 Urinalysis, Office ([id number]) UA - LEUKOCYTE ESTERASE Small (Normal) UA - NITRITE Negative (Normal) URINE UROBILINGN JEROME TIMED Normal mg/dL (Normal) UA - PROTEIN Negative mg/dL (Normal) UA - PH 7.5 (Normal) UA - BLOOD Negative (Normal) UA - SPECIFIC GRAVITY 1.020 (Normal) UA - KETONES Negative mg/dL (Normal) UA - BILIRUBIN Negative (Normal) UA - GLUCOSE Negative (Normal) 52-Jid-274918:54 LDH (LD) (LACTATE DEHYDROGENASE) Comments: PATIENT NOT FASTINGPERFORMED BY: [facility] Wkw[address]qq5013 [facility] [id number] ([id number]) LDH 191 [iU]/L (Normal) Range: 119-226 98-Ypk-613236:54 RHEUMATOID FACTOR-QUANT ([id number]) Comments: PATIENT NOT FASTINGPERFORMED BY: [facility]6370 [facility] [id number] RA Latex Turbid. <10.0 {IU/mL} (Normal) Range: 0.0-13.9 :54 C-Reactive Protein ([id number]) Comments: PATIENT NOT FASTINGPERFORMED BY: [facility]6370 [facility] [id number] C-Reactive Protein, Quant 6.1 mg/L (Abnormal) Range: 0.0-4.9 :54 SED RATE ERYTHROCYTE ([id number]) Comments: PATIENT NOT FASTINGPERFORMED BY: [facility]6370 [facility] [id number] Sedimentation Rate-Westergren 16 mm/h (Normal) Range: 0-40 9-Dzf-139616:40 CPK Total, Creatine Kinase Comments: 48[facility] [address] [place], [place], [address] CPK TOTAL 68 U/L (Normal) Range: 26-192 57-Qit-366031:12 Culture, Urine Comments: [facility] [address] [place], [place], [address] CUUR See Note (Normal) Comments: Urine CultureORGANISM 1: Escherichia coliColony Count >100,000 Escherichia coli: REACTION Amoxacillin/Clavulanic Acid $ <=2 S Am picillin $ <=2 S Ampicillin/Sulbactam $ <=2 S Cefazolin $ <=4 S Cefepime $ < =1 S Ceftriaxone $ <=1 S Ciprofloxacin $ <=0.25 S ESBL - Ertapenim $$$ <=0.5 S Gentamicin $ <=1 S Imipenem *NF <=0.25 S Levofloxacin $ <=0.12 S Nitrof urantoin $ <=16 S Piperacillin/Tazobactam $$ <=4 S Tobramycin $ <=1 S Trimethoprim/Sulfametho $ <=20 S(NF) indicates non-formulary drug at [facility]. Approval by Infectious Disease Specialist required before non- formulary drugs may be ordered and/or dispensed. 95-Soy-865237:12 Urinalysis, Routine (Dipstick) Comments: How was Urine Obtained? [facility] [address] [place], [place], [id number] LEUK ESTERASE 500 /ul (Abnormal) OCCULT BLOOD-UR 50 /ul (Abnormal) NITRITE UR Positive (Abnormal) UROBILI Normal mg/dL (Normal) PROT DIPSTX 100 mg/dL (Abnormal) pH UR 6.0 (Normal) Range: 5.0 - 8.0 SP.GR. DIPSTX 1.025 (Normal) Range: 1.002-1.030 KETONE UR Negative mg/dL (Normal) BILIRUBIN URINE Negative mg/dL (Normal) GLUCOSE, UR Normal mg/dL (Normal) CLARITY Cloudy (Normal) COLOR Yellow (Normal) 29-Mur-556457:15 CBC W/Diff, Automated Comments: [facility] [address] [place], [place], [id number] Absolute Lymph 1.50 {X10_3/ul} (Normal) Range: 0.83-4.51 Absolute Neut 2.5 {X10_3/uL} (Normal) Range: 2.0-7.7 IM GRAN % 0.000 % (Normal) Range: 0.0-0.9 Comments: IG% - Immature Granulocytes (promyelocytes, myelocytes andmetamyelocytes) > 1% indicates that a LEFT SHIFT is Present. BASO% 0.4 % (Normal) Range: 0-1 EO% 2.2 % (Normal) Range: 0-5 MONO% 11.3 % (Abnormal) Range: 0-10 LY% 32.7 % (Normal) Range: 19-41 NEUT% 53.4 % (Normal) Range: 47-70 MPV 9.5 fL (Normal) Range: 6.2-12.0 PLT 264 K/mm3 (Normal) Range: 150-450 RDW SD 45.7 fL (Abnormal) Range: 35.1-43.9 RDW CV 13.3 % (Normal) Range: 11.6-14.6 MCHC 32.7 {g/gl} (Normal) Range: 32-36 MCH 31.4 pg (Normal) Range: 27.0-32.0 MCV 96.1 fL (Normal) Range: 81-99 HCT 39.5 % (Normal) Range: 37-47 HGB 12.9 g/dL (Normal) Range: 12.0-15.0 RBC 4.11 {M/mm3} (Abnormal) Range: 4.2-5.4 WBC 4.6 K/mm3 (Normal) Range: 4.4-11.0 28-Yku-147868:15 Comprehensive Metabolic Profil Comments: [facility] [address] [place], [address] GAP 7 (Normal) Range: 5-15 CO2 28.0 mmol/L (Normal) Range: 21.0-32.0 CL 106 mmol/L (Normal) Range: 98-107 K 3.6 mmol/L (Normal) Range: 3.5-5.1 NA 141 mmol/L (Normal) Range: 136-145 T BILI 0.60 mg/dL (Normal) Range: 0.20-1.00 ALT 27 U/L (Normal) Range: 13-56 Comments: Please note revised ALT reference range sfovotsxv70/28/2018. ALK P 68 U/L (Normal) Range: 45-117 AST 15 U/L (Normal) Range: 15-37 CA 8.1 mg/dL (Abnormal) Range: 8.5-10.1 A/G 0.9 {RATIO} (Normal) Range: 0.9-2.4 GLOB 3.6 g/dL (Normal) Range: 2.2-4.2 ALB 3.1 g/dL (Abnormal) Range: 3.2-5.0 T PROT 6.7 g/dL (Normal) Range: 6.4-8.2 BUN/CRE 30.0 {RATIO} (Abnormal) Range: 10-20 Estimated CRCL 47.78 ml/min (Normal) EST GFR - AA 120 mL/min (Normal) Comments: GFR Calc EST GFR 99 mL/min (Normal) Comments: Non- GFR Calc CREAT,SERUM 0.63 mg/dL (Normal) Range: 0.55-1.02 Comments: The validity of the calculated GFR AND GFRAA in patients over70 years has not been determined. Clinical correlation isessential. BUN 19 mg/dL (Abnormal) Range: 7-18 GLU 131 mg/dL (Abnormal) Range: 74-106 Comments: Fasting Glucose result greater than or equal to 126 mg/dLsuggests DIABETES MELLITUS per A.D.A. criteria.Please note revised GLUCOSE reference range kwciuewit06/02/2018. 5-Rwc-378242:59 CPK Total, Creatine Kinase Comments: [facility] [address] [place], [place], [address] CPK TOTAL 55 U/L (Normal) Range: 26-192 8-Rkd-146576:59 GGTP 140 U/L (Abnormal) Comments: [facility] [address] [place], [place], [address] Range: 5-55 :50 CBC W/Diff, Automated Comments: [facility] [address] [place], [place], [id number] Absolute Lymph 1.40 {X10_3/ul} (Normal) Range: 0.83-4.51 Absolute Neut 2.9 {X10_3/uL} (Normal) Range: 2.0-7.7 IM GRAN % 0.200 % (Normal) Range: 0.0-0.9 Comments: IG% - Immature Granulocytes (promyelocytes, myelocytes andmetamyelocytes) > 1% indicates that a LEFT SHIFT is Present. BASO% 0.4 % (Normal) Range: 0-1 EO% 2.0 % (Normal) Range: 0-5 MONO% 10.1 % (Abnormal) Range: 0-10 LY% 28.3 % (Normal) Range: 19-41 NEUT% 59.0 % (Normal) Range: 47-70 MPV 9.9 fL (Normal) Range: 6.2-12.0 PLT 264 K/mm3 (Normal) Range: 150-450 RDW SD 47.9 fL (Abnormal) Range: 35.1-43.9 RDW CV 13.5 % (Normal) Range: 11.6-14.6 MCHC 31.4 {g/gl} (Abnormal) Range: 32-36 MCH 30.8 pg (Normal) Range: 27.0-32.0 MCV 97.8 fL (Normal) Range: 81-99 HCT 40.7 % (Normal) Range: 37-47 HGB 12.8 g/dL (Normal) Range: 12.0-15.0 RBC 4.16 {M/mm3} (Abnormal) Range: 4.2-5.4 WBC 4.9 K/mm3 (Normal) Range: 4.4-11.0 24-Jun-20179:50 Comprehensive Metabolic Profil Comments: [facility] [address] [place], [address] GAP 7 (Normal) Range: 5-15 CO2 28.0 mmol/L (Normal) Range: 21.0-32.0 CL 105 mmol/L (Normal) Range: 98-107 K 4.1 mmol/L (Normal) Range: 3.5-5.1 NA 140 mmol/L (Normal) Range: 136-145 T BILI 0.70 mg/dL (Normal) Range: 0.20-1.00 ALT 67 U/L (Normal) Range: 12-78 ALK P 79 U/L (Normal) Range: 45-117 AST 52 U/L (Abnormal) Range: 15-37 CA 8.7 mg/dL (Normal) Range: 8.5-10.1 A/G 0.9 {RATIO} (Normal) Range: 0.9-2.4 GLOB 3.6 g/dL (Normal) Range: 2.2-4.2 ALB 3.2 g/dL (Abnormal) Range: 3.4-5.0 Comments: Please note revised Albumin AND Globulin reference rangeeffective 2017. T PROT 6.8 g/dL (Normal) Range: 6.4-8.2 BUN/CRE 24.1 {RATIO} (Abnormal) Range: 10-20 EST GFR - AA 106 mL/min (Normal) Comments: GFR Calc EST GFR 87 mL/min (Normal) Comments: Non- GFR Calc CREAT,SERUM 0.71 mg/dL (Normal) Range: 0.55-1.02 Comments: The validity of the calculated GFR AND GFRAA in patients over70 years has not been determined. Clinical correlation isessential. BUN 17 mg/dL (Normal) Range: 7-18 GLU 125 mg/dL (Abnormal) Range: 70-110 Comments: Fasting Glucose result from 110 to <126 mg/dLsuggests IMPAIRED HOMEOSTASIS per A.D.A. criteria. 00-Tmz-140807:00 CBC W/Diff, Automated Comments: [facility] [address] [place], [address] ; Dr Fiore Absolute Lymph 1.66 {X10_3/ul} (Normal) Range: 0.83-4.51 Absolute Neut 3.0 {X10_3/uL} (Normal) Range: 2.0-7.7 IM GRAN % 0.000 % (Normal) Range: 0.0-0.9 Comments: IG% - Immature Granulocytes (promyelocytes, myelocytes andmetamyelocytes) > 1% indicates that a LEFT SHIFT is Present. BASO% 0.2 % (Normal) Range: 0-1 EO% 1.0 % (Normal) Range: 0-5 MONO% 9.2 % (Normal) Range: 0-10 LY% 31.7 % (Normal) Range: 19-41 NEUT% 57.9 % (Normal) Range: 47-70 MPV 9.4 fL (Normal) Range: 6.2-12.0 PLT 250 K/mm3 (Normal) Range: 150-450 RDW SD 47.7 fL (Abnormal) Range: 35.1-43.9 RDW CV 13.6 % (Normal) Range: 11.6-14.6 MCHC 31.9 {g/gl} (Abnormal) Range: 32-36 MCH 30.6 pg (Normal) Range: 27.0-32.0 MCV 96.0 fL (Normal) Range: 81-99 HCT 38.3 % (Normal) Range: 37-47 HGB 12.2 g/dL (Normal) Range: 12.0-15.0 RBC 3.99 {M/mm3} (Abnormal) Range: 4.2-5.4 WBC 5.2 K/mm3 (Normal) Range: 4.4-11.0 71-Yel-738626:00 Comprehensive Metabolic Profil Comments: [facility] [address] [place], [place], [id number] GAP 5 (Normal) Range: 5-15 CO2 27.0 mmol/L (Normal) Range: 21.0-32.0 CL 110 mmol/L (Abnormal) Range: 98-107 K 4.0 mmol/L (Normal) Range: 3.5-5.1 NA 142 mmol/L (Normal) Range: 136-145 T BILI 0.60 mg/dL (Normal) Range: 0.20-1.00 ALT 26 U/L (Normal) Range: 12-78 ALK P 62 U/L (Normal) Range: 45-117 AST 18 U/L (Normal) Range: 15-37 CA 8.1 mg/dL (Abnormal) Range: 8.5-10.1 A/G 0.9 {RATIO} (Normal) Range: 0.9-2.4 GLOB 3.4 g/dL (Normal) Range: 2.3-3.5 ALB 3.2 g/dL (Abnormal) Range: 3.4-5.0 T PROT 6.6 g/dL (Normal) Range: 6.4-8.2 BUN/CRE 42.9 {RATIO} (Abnormal) Range: 10-20 EST GFR - AA 138 mL/min (Normal) Comments: GFR Calc EST GFR 114 mL/min (Normal) Comments: Non- GFR Calc CREAT,SERUM 0.56 mg/dL (Normal) Range: 0.55-1.02 Comments: The validity of the calculated GFR AND GFRAA in patients over70 years has not been determined. Clinical correlation isessential. BUN 24 mg/dL (Abnormal) Range: 7-18 GLU 106 mg/dL (Normal) Range: 70-110 33-Uww-766592:00 CBC W/Diff, Automated Comments: [facility] [address] [place], [place], [id number] ; rheum Absolute Lymph 1.83 {X10_3/ul} (Normal) Range: 0.83-4.51 Absolute Neut 3.3 {X10_3/uL} (Normal) Range: 2.0-7.7 IM GRAN % 0.000 % (Normal) Range: 0.0-0.9 Comments: IG% - Immature Granulocytes (promyelocytes, myelocytes andmetamyelocytes) > 1% indicates that a LEFT SHIFT is Present. BASO% 0.2 % (Normal) Range: 0-1 EO% 1.0 % (Normal) Range: 0-5 MONO% 9.5 % (Normal) Range: 0-10 LY% 31.7 % (Normal) Range: 19-41 NEUT% 57.6 % (Normal) Range: 47-70 MPV 9.5 fL (Normal) Range: 6.2-12.0 PLT 270 K/mm3 (Normal) Range: 150-450 RDW SD 42.9 fL (Normal) Range: 35.1-43.9 RDW CV 12.8 % (Normal) Range: 11.6-14.6 MCHC 33.0 {g/gl} (Normal) Range: 32-36 MCH 31.0 pg (Normal) Range: 27.0-32.0 MCV 94.0 fL (Normal) Range: 81-99 HCT 39.1 % (Normal) Range: 37-47 HGB 12.9 g/dL (Normal) Range: 12.0-15.0 RBC 4.16 {M/mm3} (Abnormal) Range: 4.2-5.4 WBC 5.8 K/mm3 (Normal) Range: 4.4-11.0 67-Wws-939297:00 Comprehensive Metabolic Profil Comments: [facility] [address], [place], [id number] ; Dr moreno GAP 7 (Normal) Range: 5-15 CO2 28.0 mmol/L (Normal) Range: 21.0-32.0 CL 109 mmol/L (Abnormal) Range: 98-107 K 3.9 mmol/L (Normal) Range: 3.5-5.1 NA 144 mmol/L (Normal) Range: 136-145 T BILI 0.60 mg/dL (Normal) Range: 0.20-1.00 ALT 21 U/L (Normal) Range: 12-78 ALK P 69 U/L (Normal) Range: 45-117 AST 16 U/L (Normal) Range: 15-37 CA 8.5 mg/dL (Normal) Range: 8.5-10.1 A/G 0.9 {RATIO} (Normal) Range: 0.9-2.4 GLOB 3.5 g/dL (Normal) Range: 2.3-3.5 ALB 3.3 g/dL (Abnormal) Range: 3.4-5.0 T PROT 6.8 g/dL (Normal) Range: 6.4-8.2 BUN/CRE 26.6 {RATIO} (Abnormal) Range: 10-20 Estimated CRCL 44.54 ml/min (Normal) EST GFR - AA 127 mL/min (Normal) Comments: GFR Calc EST GFR 105 mL/min (Normal) Comments: Non- GFR Calc CREAT,SERUM 0.60 mg/dL (Normal) Range: 0.55-1.02 Comments: The validity of the calculated GFR AND GFRAA in patients over70 years has not been determined. Clinical correlation isessential. BUN 16 mg/dL (Normal) Range: 7-18 GLU 98 mg/dL (Normal) Range: 70-110 16-Uqy-154007:39 CBC W/Diff, Automated Comments: [facility] [address] [place], [address] SMEAR COMMENT SCANNED (Normal) Absolute Lymph 0.54 {X10_3/ul} (Abnormal) Range: 0.83-4.51 Absolute Neut 10.4 {X10_3/uL} (Abnormal) Range: 2.0-7.7 IM GRAN % 0.200 % (Normal) Range: 0.0-0.9 Comments: IG% - Immature Granulocytes (promyelocytes, myelocytes andmetamyelocytes) > 1% indicates that a LEFT SHIFT is Present. BASO% 0.0 % (Normal) Range: 0-1 EO% 0.6 % (Normal) Range: 0-5 MONO% 3.4 % (Normal) Range: 0-10 LY% 4.7 % (Abnormal) Range: 19-41 NEUT% 91.1 % (Abnormal) Range: 47-70 MPV 10.1 fL (Normal) Range: 6.2-12.0 PLT 244 K/mm3 (Normal) Range: 150-450 RDW SD 45.9 fL (Abnormal) Range: 35.1-43.9 RDW CV 13.3 % (Normal) Range: 11.6-14.6 MCHC 32.8 {g/gl} (Normal) Range: 32-36 MCH 31.1 pg (Normal) Range: 27.0-32.0 MCV 94.9 fL (Normal) Range: 81-99 HCT 44.5 % (Normal) Range: 37-47 HGB 14.6 g/dL (Normal) Range: 12.0-15.0 RBC 4.69 {M/mm3} (Normal) Range: 4.2-5.4 WBC 11.4 K/mm3 (Abnormal) Range: 4.4-11.0 16-Ypj-549236:39 Comprehensive Metabolic Profil Comments: [facility] [address] [place], [place], [id number] GAP 10 (Normal) Range: 5-15 CO2 23.0 mmol/L (Normal) Range: 21.0-32.0 CL 108 mmol/L (Abnormal) Range: 98-107 K 4.0 mmol/L (Normal) Range: 3.5-5.1 NA 141 mmol/L (Normal) Range: 136-145 T BILI 0.80 mg/dL (Normal) Range: 0.20-1.00 ALT 40 U/L (Normal) Range: 12-78 ALK P 71 U/L (Normal) Range: 45-117 AST 30 U/L (Normal) Range: 15-37 CA 8.6 mg/dL (Normal) Range: 8.5-10.1 A/G 1.0 {RATIO} (Normal) Range: 0.9-2.4 GLOB 3.6 g/dL (Abnormal) Range: 2.3-3.5 ALB 3.5 g/dL (Normal) Range: 3.4-5.0 T PROT 7.1 g/dL (Normal) Range: 6.4-8.2 BUN/CRE 31.3 {RATIO} (Abnormal) Range: 10-20 Estimated CRCL 44.54 ml/min (Normal) EST GFR - AA 101 mL/min (Normal) Comments: GFR Calc EST GFR 84 mL/min (Normal) Comments: Non- GFR Calc CREAT,SERUM 0.74 mg/dL (Normal) Range: 0.55-1.02 Comments: The validity of the calculated GFR AND GFRAA in patients over70 years has not been determined. Clinical correlation isessential. BUN 23 mg/dL (Abnormal) Range: 7-18 GLU 156 mg/dL (Abnormal) Range: 70-110 Comments: Fasting Glucose result greater than or equal to 126 mg/dLsuggests DIABETES MELLITUS per A.D.A. criteria. 99-Zrz-584668:39 Lipase Comments: [facility] [address] [place], [address] LIPASE 86 U/L (Normal) Range: 73-393 :01 Pap IG (Image Comments: Source.............Cervix;EndocervixNo. of containers..01 CYTYC Thin Prep VialPATIENT NOT FASTINGPERFORMED BY: =G [facility] [address]aclvxp[address] [facility] [place] [id number] BY: WB [employer]) [address] [facility] [place] [id number] Note: PAPSMR (Normal) Comments: The Pap smear is a screening test designed to aid in the detection ofpremalignant and malignant conditions of the uterine cervix. It is not adiagnostic procedure and should not be used as the sole mean s of detectingcervical cancer. Both false-positive and false-negative reports do occur. . See Note . (Normal) DIAGNOSIS: SPRCS (Normal) Comments: NEGATIVE FOR INTRAEPITHELIAL LESION AND MALIGNANCY.Satisfactory for evaluation. Endocervical and/or squamous metaplasticcells (endocervical component) are present.[id number] Fraser totechnologist ([facility]) :01 Thin prep Pap Comments: Source.............Cervix;EndocervixNo. of containers..01 CYTYC Thin Prep VialPATIENT NOT FASTINGPERFORMED BY: =G [facility] [address] [id number] BY: [employer] ([id number]) (no STD rp [address] [place] [id number] Information: [id number]; ov in 2 weeks testing) Age Gdln ACOG Testing AGE4 (Normal) Comments: <21 or >65 or no age provided 74-Apx-445050:55 CBC W/Diff, Automated Comments: [facility] [address] [place], [address] Absolute Lymph 1.88 {X10_3/ul} (Normal) Range: 0.83-4.51 Absolute Neut 3.2 {X10_3/uL} (Normal) Range: 2.0-7.7 IM GRAN % 0.000 % (Normal) Range: 0.0-0.9 Comments: IG% - Immature Granulocytes (promyelocytes, myelocytes andmetamyelocytes) > 1% indicates that a LEFT SHIFT is Present. BASO% 0.2 % (Normal) Range: 0-1 EO% 1.1 % (Normal) Range: 0-5 MONO% 9.2 % (Normal) Range: 0-10 LY% 33.2 % (Normal) Range: 19-41 NEUT% 56.3 % (Normal) Range: 47-70 MPV 10.2 fL (Normal) Range: 6.2-12.0 PLT 271 K/mm3 (Normal) Range: 150-450 RDW SD 46.5 fL (Abnormal) Range: 35.1-43.9 RDW CV 13.4 % (Normal) Range: 11.6-14.6 MCHC 31.8 {g/gl} (Abnormal) Range: 32-36 MCH 30.6 pg (Normal) Range: 27.0-32.0 MCV 96.2 fL (Normal) Range: 81-99 HCT 40.6 % (Normal) Range: 37-47 HGB 12.9 g/dL (Normal) Range: 12.0-15.0 RBC 4.22 {M/mm3} (Normal) Range: 4.2-5.4 WBC 5.7 K/mm3 (Normal) Range: 4.4-11.0 [id number] Comprehensive Metabolic Profil Comments: [facility] [id number] [place], [place], [id number] GAP 7 (Normal) Range: 5-15 CO2 28.0 mmol/L (Normal) Range: 21.0-32.0 CL 107 mmol/L (Normal) Range: 98-107 K 4.1 mmol/L (Normal) Range: 3.5-5.1 NA 142 mmol/L (Normal) Range: 136-145 T BILI 0.50 mg/dL (Normal) Range: 0.20-1.00 ALT 21 U/L (Normal) Range: 12-78 ALK P 57 U/L (Normal) Range: 50-136 AST 12 U/L (Abnormal) Range: 15-37 CA 8.8 mg/dL (Normal) Range: 8.5-10.1 A/G 1.0 {RATIO} (Normal) Range: 0.9-2.4 GLOB 3.4 g/dL (Normal) Range: 2.3-3.5 ALB 3.4 g/dL (Normal) Range: 3.4-5.0 T PROT 6.8 g/dL (Normal) Range: 6.4-8.2 BUN/CRE 33.9 {RATIO} (Abnormal) Range: 10-20 EST GFR - AA 106 mL/min (Normal) Comments: GFR Calc EST GFR 87 mL/min (Normal) Comments: Non- GFR Calc CREAT,SERUM 0.71 mg/dL (Normal) Range: 0.55-1.20 Comments: The validity of the calculated GFR AND GFRAA in patients over70 years has not been determined. Clinical correlation isessential. BUN 24 mg/dL (Abnormal) Range: 7-18 GLU 84 mg/dL (Normal) Range: 70-110 [id number] CBC W/Diff, Automated Comments: [facility] [id number] [place], [place], [id number] Absolute Lymph 1.74 {X10_3/ul} (Normal) Range: 0.83-4.51 Absolute Neut 2.6 {X10_3/uL} (Normal) Range: 2.0-7.7 IM GRAN % 0.200 % (Normal) Range: 0.0-0.9 Comments: IG% - Immature Granulocytes (promyelocytes, myelocytes andmetamyelocytes) > 1% indicates that a LEFT SHIFT is Present. BASO% 0.4 % (Normal) Range: 0-1 EO% 1.8 % (Normal) Range: 0-5 MONO% 10.2 % (Abnormal) Range: 0-10 LY% 34.7 % (Normal) Range: 19-41 NEUT% 52.7 % (Normal) Range: 47-70 MPV 9.8 fL (Normal) Range: 6.2-12.0 PLT 267 K/mm3 (Normal) Range: 150-450 RDW SD 46.8 fL (Abnormal) Range: 35.1-43.9 RDW CV 13.3 % (Normal) Range: 11.6-14.6 Comments: ADDENDA: managed by another doc MCHC 31.9 {g/gl} (Abnormal) Range: 32-36 MCH 30.5 pg (Normal) Range: 27.0-32.0 MCV 95.6 fL (Normal) Range: 81-99 HCT 39.2 % (Normal) Range: 37-47 HGB 12.5 g/dL (Normal) Range: 12.0-15.0 RBC 4.10 {M/mm3} (Abnormal) Range: 4.2-5.4 WBC 5.0 K/mm3 (Normal) Range: 4.4-11.0 [id number] Comprehensive Metabolic Profil Comments: [facility] [id number] [place], [address] GAP 6 (Normal) Range: 5-15 CO2 29.0 mmol/L (Normal) Range: 21.0-32.0 CL 107 mmol/L (Normal) Range: 98-107 K 3.8 mmol/L (Normal) Range: 3.5-5.1 NA 142 mmol/L (Normal) Range: 136-145 T BILI 0.50 mg/dL (Normal) Range: 0.20-1.00 ALT 20 U/L (Normal) Range: 12-78 ALK P 65 U/L (Normal) Range: 50-136 AST 17 U/L (Normal) Range: 15-37 CA 8.7 mg/dL (Normal) Range: 8.5-10.1 A/G 0.9 {RATIO} (Normal) Range: 0.9-2.4 GLOB 3.5 g/dL (Normal) Range: 2.3-3.5 ALB 3.1 g/dL (Abnormal) Range: 3.4-5.0 T PROT 6.6 g/dL (Normal) Range: 6.4-8.2 BUN/CRE 32.0 {RATIO} (Abnormal) Range: 10-20 EST GFR - AA 109 mL/min (Normal) Comments: GFR Calc EST GFR 90 mL/min (Normal) Comments: Non- GFR Calc CREAT,SERUM 0.69 mg/dL (Normal) Range: 0.55-1.20 Comments: The validity of the calculated GFR AND GFRAA in patients over70 years has not been determined. Clinical correlation isessential. BUN 22 mg/dL (Abnormal) Range: 7-18 GLU 107 mg/dL (Normal) Range: 70-110 29-Gqj-425577:52 Vitamin D,25 Hydroxy Comments: [facility] [address] [place], [address] Vitamin D 25-OH 23.6 ng/mL (Normal) Comments: Vitamin D 25(OH) Status Range Deficiency <20 ng/mL (50nmol/L) Insuffciency 20 - 30 ng/mL (50 - 75 nmol/L) Sufficiency 30 - 100 ng/mL (75 - 250 nmol/L) Toxicity >100 ng/mL (>250 nmol/L) 34-Oto-[id number]:34 URINE DELMAR CULTURE-JEROME COL Comments: PATIENT NOT FASTINGPERFORMED BY: [facility] [id number] Information: SRC:URC [id number] COUNT (02260) Result 1 MUG (Normal) Comments: Mixed urogenital floraGreater than 100,000 colony forming units per mL Urine Culture,Comprehensive Final report (Normal) [id number] Urinalysis, Office (72506) UA - LEUKOCYTE ESTERASE Trace (Normal) UA - NITRITE Negative (Normal) URINE UROBILINGN JEROME TIMED Normal mg/dL (Normal) UA - PROTEIN Negative mg/dL (Normal) UA - PH 6.0 (Normal) Comments: 5.5 UA - BLOOD Negative (Normal) UA - SPECIFIC GRAVITY 1.030 (Abnormal) UA - KETONES Negative mg/dL (Normal) UA - BILIRUBIN Negative (Normal) UA - GLUCOSE Negative (Normal) 68-Snr-[id number]:10 CBC W/Diff, Automated Comments: [facility] [address] [place], [address] Absolute Lymph 1.44 {X10_3/ul} (Normal) Range: 0.83-4.51 Absolute Neut 2.4 {X10_3/uL} (Normal) Range: 2.0-7.7 IM GRAN % 0.200 % (Normal) Range: 0.0-0.9 Comments: IG% - Immature Granulocytes (promyelocytes, myelocytes andmetamyelocytes) > 1% indicates that a LEFT SHIFT is Present. BASO% 0.5 % (Normal) Range: 0-1 EO% 1.9 % (Normal) Range: 0-5 MONO% 9.5 % (Normal) Range: 0-10 LY% 33.4 % (Normal) Range: 19-41 NEUT% 54.5 % (Normal) Range: 47-70 MPV 9.5 fL (Normal) Range: 6.2-12.0 PLT 251 K/mm3 (Normal) Range: 150-450 RDW SD 46.9 fL (Abnormal) Range: 35.1-43.9 RDW CV 13.5 % (Normal) Range: 11.6-14.6 Comments: ADDENDA: ordered by another doctor MCHC 32.7 {g/gl} (Normal) Range: 32-36 MCH 31.0 pg (Normal) Range: 27.0-32.0 MCV 94.9 fL (Normal) Range: 81-99 HCT 39.2 % (Normal) Range: 37-47 HGB 12.8 g/dL (Normal) Range: 12.0-15.0 RBC 4.13 {M/mm3} (Abnormal) Range: 4.2-5.4 WBC 4.3 K/mm3 (Abnormal) Range: 4.4-11.0 17-Hml-762221:10 Comprehensive Metabolic Profil Comments: [facility] [address] [place], [place], [id number] GAP 3 (Abnormal) Range: 5-15 CO2 28.0 mmol/L (Normal) Range: 21.0-32.0 CL 110 mmol/L (Abnormal) Range: 98-107 K 3.9 mmol/L (Normal) Range: 3.5-5.1 NA 141 mmol/L (Normal) Range: 136-145 T BILI 0.60 mg/dL (Normal) Range: 0.20-1.00 ALT 19 U/L (Normal) Range: 12-78 ALK P 59 U/L (Normal) Range: 50-136 AST 20 U/L (Normal) Range: 15-37 CA 8.2 mg/dL (Abnormal) Range: 8.5-10.1 A/G 1.0 {RATIO} (Normal) Range: 0.9-2.4 GLOB 3.2 g/dL (Normal) Range: 2.3-3.5 ALB 3.2 g/dL (Abnormal) Range: 3.4-5.0 T PROT 6.4 g/dL (Normal) Range: 6.4-8.2 BUN/CRE 31.7 {RATIO} (Abnormal) Range: 10-20 Estimated CRCL 49.12 ml/min (Normal) EST GFR - AA 114 mL/min (Normal) Comments: GFR Calc EST GFR 94 mL/min (Normal) Comments: Non- GFR Calc CREAT,SERUM 0.66 mg/dL (Normal) Range: 0.55-1.20 Comments: The validity of the calculated GFR AND GFRAA in patients over70 years has not been determined. Clinical correlation isessential. BUN 21 mg/dL (Abnormal) Range: 7-18 GLU 130 mg/dL (Abnormal) Range: 70-110 Comments: Fasting Glucose result greater than or equal to 126 mg/dLsuggests DIABETES MELLITUS per A.D.A. criteria. 59-Gwg-[id number]:10 Vitamin D,25 Hydroxy Comments: [facility] [address] [place], [address] Vitamin D 25-OH 20.8 ng/mL (Normal) Comments: Vitamin D 25(OH) Status Range Deficiency <20 ng/mL (50nmol/L) Insuffciency 20 - 30 ng/mL (50 - 75 nmol/L) Sufficiency 30 - 100 ng/mL (75 - 250 nmol/L) Toxicity >100 ng/mL (>250 nmol/L) 94-Nih-[id number]:16 CBC W/Diff, Automated Comments: [facility] [address] [place], [address] ; ordered by another doctor Absolute Lymph 1.42 {X10_3/ul} (Normal) Range: 0.83-4.51 Absolute Neut 3.1 {X10_3/uL} (Normal) Range: 2.0-7.7 IM GRAN % 0.000 % (Normal) Range: 0.0-0.9 Comments: IG% - Immature Granulocytes (promyelocytes, myelocytes andmetamyelocytes) > 1% indicates that a LEFT SHIFT is Present. BASO% 0.4 % (Normal) Range: 0-1 EO% 0.8 % (Normal) Range: 0-5 MONO% 10.4 % (Abnormal) Range: 0-10 LY% 27.7 % (Normal) Range: 19-41 NEUT% 60.7 % (Normal) Range: 47-70 MPV 10.0 fL (Normal) Range: 6.2-12.0 PLT 273 K/mm3 (Normal) Range: 150-450 RDW SD 47.9 fL (Abnormal) Range: 35.1-43.9 RDW CV 13.4 % (Normal) Range: 11.6-14.6 MCHC 31.9 {g/gl} (Abnormal) Range: 32-36 MCH 30.8 pg (Normal) Range: 27.0-32.0 MCV 96.6 fL (Normal) Range: 81-99 HCT 42.3 % (Normal) Range: 37-47 HGB 13.5 g/dL (Normal) Range: 12.0-15.0 RBC 4.38 {M/mm3} (Normal) Range: 4.2-5.4 WBC 5.1 K/mm3 (Normal) Range: 4.4-11.0 43-Mml-024248:16 Comprehensive Metabolic Profil Comments: [facility] [address], [place], [id number] ; ordered by another doctor GAP 7 (Normal) Range: 5-15 CO2 29.0 mmol/L (Normal) Range: 21.0-32.0 CL 106 mmol/L (Normal) Range: 98-107 K 3.7 mmol/L (Normal) Range: 3.5-5.1 NA 142 mmol/L (Normal) Range: 136-145 T BILI 0.50 mg/dL (Normal) Range: 0.20-1.00 ALT 14 U/L (Normal) Range: 12-78 ALK P 58 U/L (Normal) Range: 50-136 AST 14 U/L (Abnormal) Range: 15-37 CA 8.3 mg/dL (Abnormal) Range: 8.5-10.1 A/G 1.0 {RATIO} (Normal) Range: 0.9-2.4 GLOB 3.5 g/dL (Normal) Range: 2.3-3.5 ALB 3.5 g/dL (Normal) Range: 3.4-5.0 T PROT 7.0 g/dL (Normal) Range: 6.4-8.2 BUN/CRE 27.2 {RATIO} (Abnormal) Range: 10-20 EST GFR - AA 108 mL/min (Normal) Comments: GFR Calc EST GFR 89 mL/min (Normal) Comments: Non- GFR Calc CREAT,SERUM 0.70 mg/dL (Normal) Range: 0.55-1.20 Comments: The validity of the calculated GFR AND GFRAA in patients over70 years has not been determined. Clinical correlation isessential. BUN 19 mg/dL (Abnormal) Range: 7-18 GLU 87 mg/dL (Normal) Range: 70-110 70-Ebb-322062:16 Vitamin D,25 Hydroxy Comments: [facility] [address] [facility] [address] [place], [place], [id number] ; ordered by another doctor Vitamin D 25-OH 33.2 ng/mL (Normal) Comments: Vitamin D 25(OH) Status Range Deficiency <20 ng/mL (50nmol/L) Insuffciency 20 - 30 ng/mL (50 - 75 nmol/L) Sufficiency 30 - 100 ng/mL (75 - 250 nmol/L) Toxicity >100 ng/mL (>250 nmol/L) [id number]-Vxb-[id number]:22 CBC W/Diff, Automated Comments: [facility] [address] [facility] [address] [place], [place], [id number] Absolute Lymph 1.19 {X10_3/ul} (Normal) Range: 0.83-4.51 Absolute Neut 2.9 {X10_3/uL} (Normal) Range: 2.0-7.7 IM GRAN % 0.200 % (Normal) Range: 0.0-0.9 Comments: IG% - Immature Granulocytes (promyelocytes, myelocytes andmetamyelocytes) > 1% indicates that a LEFT SHIFT is Present. BASO% 0.4 % (Normal) Range: 0-1 EO% 1.1 % (Normal) Range: 0-5 MONO% 10.4 % (Abnormal) Range: 0-10 LY% 25.9 % (Normal) Range: 19-41 NEUT% 62.0 % (Normal) Range: 47-70 MPV 9.3 fL (Normal) Range: 6.2-12.0 PLT 269 K/mm3 (Normal) Range: 150-450 RDW SD 46.3 fL (Abnormal) Range: 35.1-43.9 RDW CV 13.4 % (Normal) Range: 11.6-14.6 MCHC 32.0 {g/gl} (Normal) Range: 32-36 MCH 30.4 pg (Normal) Range: 27.0-32.0 MCV 94.8 fL (Normal) Range: 81-99 HCT 38.4 % (Normal) Range: 37-47 HGB 12.3 g/dL (Normal) Range: 12.0-15.0 RBC 4.05 {M/mm3} (Abnormal) Range: 4.2-5.4 WBC 4.6 K/mm3 (Normal) Range: 4.4-11.0 [id number]-Xgn-[id number]:[id number] Comprehensive Metabolic Profil Comments: [facility] [address] [place], [place], [address] GAP 3 (Abnormal) Range: 5-15 CO2 29.0 mmol/L (Normal) Range: 21.0-32.0 CL 108 mmol/L (Abnormal) Range: 98-107 K 4.1 mmol/L (Normal) Range: 3.5-5.1 NA 140 mmol/L (Normal) Range: 136-145 T BILI 0.70 mg/dL (Normal) Range: 0.20-1.00 ALT 25 U/L (Normal) Range: 12-78 ALK P 63 U/L (Normal) Range: 50-136 AST 22 U/L (Normal) Range: 15-37 CA 8.4 mg/dL (Abnormal) Range: 8.5-10.1 A/G 1.0 {RATIO} (Normal) Range: 0.9-2.4 GLOB 3.3 g/dL (Normal) Range: 2.3-3.5 ALB 3.2 g/dL (Abnormal) Range: 3.4-5.0 T PROT 6.5 g/dL (Normal) Range: 6.4-8.2 BUN/CRE 33.3 {RATIO} (Abnormal) Range: 10-20 EST GFR - AA 121 mL/min (Normal) EST GFR 100 mL/min (Normal) CREAT,SERUM 0.63 mg/dL (Normal) Range: 0.55-1.20 Comments: The validity of the calculated GFR AND GFRAA in patients over70 years has not been determined. Clinical correlation isessential. BUN 21 mg/dL (Abnormal) Range: 7-18 GLU 100 mg/dL (Normal) Range: 70-110 0-Ubn-946412:22 Lipid Profile Comments: [facility] [address] [place], [place], [id number] VLDL 16 mg/dL (Normal) Range: 5-40 LDL 150 mg/dL (Abnormal) Range: 0-130 HDL 70 mg/dL (Normal) Comments: Reference Range HDL <40 mg/dL Low HDL Cholesterol HDL >or= 60 mg/dL High HDL Cholesterol TRIG 80 mg/dL (Normal) Comments: Serum Triglycerides Reference Interval Normal <150 mg/dL Borderline high 150 - 199 mg/dL High 200 - 499 mg/dL Very High > or = 500 mg/dL CHOL 236 mg/dL (Abnormal) Comments: <200 mg/dL Desirable 200-240 mg/dL Borderline >240 mg/dL High Risk [id number]-Xqc-[id number]:22 Thyroid Stim Hormone (TSH) Comments: [facility] [address] [place], [address] TSH 1.39 {uIU/mL} (Normal) Range: 0.358-3.74 29-Ydz-639723:30 CBC W/Diff, Automated Comments: Comments: IVT TO DRAW OFF [facility] pt arrived? YTest performed at:[facility] [address] [place], [place] [address] Absolute Lymph 1.56 {X10_3/ul} (Normal) Range: 0.83-4.51 Absolute Neut 2.6 {X10_3/uL} (Normal) Range: 2.0-7.7 IM GRAN % 0.200 % (Normal) Range: 0.0-0.9 Comments: IG% - Immature Granulocytes (promyelocytes, myelocytes andmetamyelocytes) > 1% indicates that a LEFT SHIFT is Present. BASO% 0.2 % (Normal) Range: 0-1 EO% 1.5 % (Normal) Range: 0-5 MONO% 9.4 % (Normal) Range: 0-10 LY% 33.3 % (Normal) Range: 19-41 NEUT% 55.4 % (Normal) Range: 47-70 MPV 9.5 fL (Normal) Range: 6.2-12.0 PLT 250 K/mm3 (Normal) Range: 150-450 RDW SD 45.1 fL (Abnormal) Range: 35.1-43.9 RDW CV 13.1 % (Normal) Range: 11.6-14.6 MCHC 32.1 {g/gl} (Normal) Range: 32-36 MCH 30.4 pg (Normal) Range: 27.0-32.0 MCV 94.8 fL (Normal) Range: 81-99 HCT 36.8 % (Abnormal) Range: 37-47 HGB 11.8 g/dL (Abnormal) Range: 12.0-15.0 RBC 3.88 {M/mm3} (Abnormal) Range: 4.2-5.4 WBC 4.7 K/mm3 (Normal) Range: 4.4-11.0 59-Wka-[id number]:30 Comprehensive Metabolic Profil Comments: Has pt arrived? YComments: IVT TO DRAW FROM PORTTest performed at:[facility] [address] [place] [address] GAP 8 (Normal) Range: 5-15 CO2 27.0 mmol/L (Normal) Range: 21.0-32.0 CL 107 mmol/L (Normal) Range: 98-107 K 4.1 mmol/L (Normal) Range: 3.5-5.1 NA 142 mmol/L (Normal) Range: 136-145 T BILI 0.30 mg/dL (Normal) Range: 0.20-1.00 ALT 17 U/L (Normal) Range: 12-78 ALK P 55 U/L (Normal) Range: 50-136 AST 15 U/L (Normal) Range: 15-37 CA 8.3 mg/dL (Abnormal) Range: 8.5-10.1 A/G 1.0 {RATIO} (Normal) Range: 0.9-2.4 GLOB 3.0 g/dL (Normal) Range: 2.3-3.5 ALB 3.0 g/dL (Abnormal) Range: 3.4-5.0 T PROT 6.0 g/dL (Abnormal) Range: 6.4-8.2 BUN/CRE 36.2 {RATIO} (Abnormal) Range: 10-20 EST GFR - AA 135 mL/min (Normal) EST GFR 111 mL/min (Normal) CREAT,SERUM 0.58 mg/dL (Normal) Range: 0.55-1.20 Comments: Please note revised CREATININE reference range jelpjmmkt04/22/2015. BUN 21 mg/dL (Abnormal) Range: 7-18 GLU 133 mg/dL (Abnormal) Range: 70-110 Comments: Fasting Glucose result greater than or equal to 126 mg/dLsuggests DIABETES MELLITUS per A.D.A. criteria. 14-Hus-437941:30 Vitamin D,25 Hydroxy Comments: Has pt arrived? YTest performed at:[facility] [address] [facility] [address] Vitamin D 25-OH 22.5 ng/mL (Normal) Comments: Vitamin D 25(OH) Status Range Deficiency <20 ng/mL (50nmol/L) Insuffciency 20 - 30 ng/mL (50 - 75 nmol/L) Sufficiency 30 - 100 ng/mL (75 - 250 nmol/L) Toxicity >100 ng/mL (>250 nmol/L) 42-Nrc-016957:42 D-Dimer Quantitative (DVT/PE) Comments: Test performed at:[facility] [address] [place] [address] D-DIMER QUANT 0.54 {FEU/ug/m} (Abnormal) Range: 0.27-0.49 Comments: D-Dimer ELEVATED (>0.49): Additional studies and clinicalassessments are indicated to conclude diagnosis of:Deep Vein Thrombosis (DVT) or Pulmonary Embolism (PE)CRITICAL VALUE CALLED TO [id number] 02/02 Ashish Griffin.RESULTS READ BACK BY SAME . 21-Xmm-[id number] Lipase Comments: Test performed at:[facility] [address] [place] [address] LIPASE 96 U/L (Normal) Range: 70-290 13-Oaj-764771:22 BNP,B-Type NATRIURETIC PEPTIDE Comments: Test performed at:[facility] [address] [place] [address] B-TYPE FATOUMATA PEP 124.8 pg/mL (Abnormal) Range: 0-100 45-Huw-042801:22 CBC W/Diff, Automated Comments: Test performed at:[facility] [address] [place] [address] Absolute Lymph 2.09 {X10_3/ul} (Normal) Range: 0.83-4.51 Absolute Neut 3.2 {X10_3/uL} (Normal) Range: 2.0-7.7 IM GRAN % 0.300 % (Normal) Range: 0.0-0.9 Comments: IG% - Immature Granulocytes (promyelocytes, myelocytes andmetamyelocytes) > 1% indicates that a LEFT SHIFT is Present. BASO% 0.3 % (Normal) Range: 0-1 EO% 1.0 % (Normal) Range: 0-5 MONO% 8.5 % (Normal) Range: 0-10 LY% 35.5 % (Normal) Range: 19-41 NEUT% 54.4 % (Normal) Range: 47-70 MPV 9.5 fL (Normal) Range: 6.2-12.0 PLT 270 K/mm3 (Normal) Range: 150-450 RDW SD 47.5 fL (Abnormal) Range: 35.1-43.9 RDW CV 13.8 % (Normal) Range: 11.6-14.6 MCHC 32.9 {g/gl} (Normal) Range: 32-36 MCH 31.3 pg (Normal) Range: 27.0-32.0 MCV 95.2 fL (Normal) Range: 81-99 HCT 41.4 % (Normal) Range: 37-47 HGB 13.6 g/dL (Normal) Range: 12.0-15.0 RBC 4.35 {M/mm3} (Normal) Range: 4.2-5.4 WBC 5.9 K/mm3 (Normal) Range: 4.4-11.0 48-Pzp-765379:22 CK-MB Quantitative and Index Comments: Test performed at:[facility] [address] [place], [place] [id number] CPKMB 0.7 ng/mL (Normal) Range: 0.0-5.0 Comments: CK-MB and RI Interpretation MB Relative Index Non-AMI <or= 5 NA Indeterminate > 5 <or= 4 AMI > 5 > 4 CPK TOTAL 97 U/L (Normal) Range: 26-192 24-Ykg-[id number] Comprehensive Metabolic Profil Comments: 'TROP' Serial specimen #1, #2, #3, or #4: 1Test performed at:[facility] [address] [place] [address] GAP 9 (Normal) Range: 5-15 CO2 25.0 mmol/L (Normal) Range: 21.0-32.0 CL 108 mmol/L (Abnormal) Range: 98-107 K 3.6 mmol/L (Normal) Range: 3.5-5.1 NA 142 mmol/L (Normal) Range: 136-145 T BILI 0.70 mg/dL (Normal) Range: 0.00-4.00 ALT 18 U/L (Normal) Range: 12-78 ALK P 58 U/L (Normal) Range: 50-136 AST 15 U/L (Normal) Range: 15-37 CA 8.7 mg/dL (Normal) Range: 8.5-10.1 A/G 0.9 {RATIO} (Normal) Range: 0.9-2.4 GLOB 3.8 g/dL (Normal) Range: 2.7-4.2 ALB 3.4 g/dL (Normal) Range: 3.4-5.0 T PROT 7.2 g/dL (Normal) Range: 6.4-8.2 BUN/CRE 22.9 {RATIO} (Abnormal) Range: 10-20 Estimated CRCL 49.80 ml/min (Normal) EST GFR - AA 108 mL/min (Normal) EST GFR 89 mL/min (Normal) CREAT,SERUM 0.7 mg/dL (Normal) Range: 0.6-1.0 BUN 16 mg/dL (Normal) Range: 7-18 GLU 127 mg/dL (Abnormal) Range: 70-110 Comments: Fasting Glucose result greater than or equal to 126 mg/dLsuggests DIABETES MELLITUS per A.D.A. criteria. 65-Yto-[id number]:22 Troponin-I Comments: 'TROP' Serial specimen #1, #2, #3, or #4: 1Test performed at:[facility] [address] [place] [address] TROPONIN-I < 0.02 ng/mL (Normal) Comments: TROPONIN-I EXPECTED VALUES <0.05 NEGATIVE 0.06 - 0.59 AT RISK OF MT > OR = 0.60 SUGGEST MT [id number]-[id number] Urinalysis, Complete Comments: Order Date: 11/15/14How was Urine Obtained? CLEAN CATCHTest performed at:[facility] [address] [place], [place] [address] AMORPHOUS 1+ PHOS (Normal) MUCUS, URINE 0 SEEN {/hpf} (Normal) BACTERIA 0 SEEN {/hpf} (Normal) SQUAM EPI 10-25 SEEN {/hpf} (Normal) Range: 5-10 RBC-UA 0 SEEN {/hpf} (Normal) Range: 0-5 WBC 0 SEEN {/hpf} (Normal) Range: 0-5 LEUK ESTERASE Negative /ul (Normal) OCCULT BLOOD-UR Negative /ul (Normal) NITRITE UR Negative (Normal) UROBILI Normal mg/dL (Normal) PROT DIPSTX Negative mg/dL (Normal) pH UR 8.0 (Normal) Range: 5.0 - 8.0 SP.GR. DIPSTX 1.015 (Normal) Range: 1.002-1.030 KETONE UR 50 mg/dL (Abnormal) BILIRUBIN URINE Negative mg/dL (Normal) GLUCOSE, UR Normal mg/dL (Normal) CLARITY Sl. Cloudy (Normal) COLOR Yellow (Normal) 29-Tni-669475:00 CBC W/Diff, Automated Comments: Comments: IVT TO DRAWTest performed at:[facility] [address] [place] [address] Absolute Lymph 1.62 {X10_3/ul} (Normal) Range: 0.83-4.51 Absolute Neut 3.6 {X10_3/uL} (Normal) Range: 2.0-7.7 IM GRAN % 0.300 % (Normal) Range: 0.0-0.9 Comments: IG% - Immature Granulocytes (promyelocytes, myelocytes andmetamyelocytes) > 1% indicates that a LEFT SHIFT is Present. BASO% 0.3 % (Normal) Range: 0-1 EO% 1.6 % (Normal) Range: 0-5 MONO% 8.3 % (Normal) Range: 0-10 LY% 27.9 % (Normal) Range: 19-41 NEUT% 61.6 % (Normal) Range: 47-70 MPV 9.7 fL (Normal) Range: 6.2-12.0 PLT 270 K/mm3 (Normal) Range: 150-450 RDW SD 46.4 fL (Abnormal) Range: 35.1-43.9 RDW CV 13.1 % (Normal) Range: 11.6-14.6 MCHC 32.0 {g/gl} (Normal) Range: 32-36 MCH 31.5 pg (Normal) Range: 27.0-32.0 MCV 98.2 fL (Normal) Range: 81-99 HCT 38.4 % (Normal) Range: 37-47 HGB 12.3 g/dL (Normal) Range: 12.0-15.0 RBC 3.91 {M/mm3} (Abnormal) Range: 4.2-5.4 WBC 5.8 K/mm3 (Normal) Range: 4.4-11.0 05-Ohx-946571:00 Comprehensive Metabolic Profil Comments: Comments: IVT TO DRAWTest performed at:[facility] [address] [place], [place] [id number] GAP 4 (Abnormal) Range: 5-15 CO2 27.0 mmol/L (Normal) Range: 21.0-32.0 CL 107 mmol/L (Normal) Range: 98-107 K 3.9 mmol/L (Normal) Range: 3.5-5.1 NA 138 mmol/L (Normal) Range: 136-145 T BILI 0.50 mg/dL (Normal) Range: 0.00-4.00 ALT 37 U/L (Normal) Range: 12-78 ALK P 68 U/L (Normal) Range: 50-136 AST 22 U/L (Normal) Range: 15-37 CA 8.5 mg/dL (Normal) Range: 8.5-10.1 A/G 0.9 {RATIO} (Normal) Range: 0.9-2.4 GLOB 3.4 g/dL (Normal) Range: 2.7-4.2 ALB 3.1 g/dL (Abnormal) Range: 3.4-5.0 T PROT 6.5 g/dL (Normal) Range: 6.4-8.2 BUN/CRE 30.0 {RATIO} (Abnormal) Range: 10-20 EST GFR - AA 108 mL/min (Normal) EST GFR 89 mL/min (Normal) CREAT,SERUM 0.7 mg/dL (Normal) Range: 0.6-1.0 BUN 21 mg/dL (Abnormal) Range: 7-18 GLU 129 mg/dL (Abnormal) Range: 70-110 Comments: Fasting Glucose result greater than or equal to 126 mg/dLsuggests DIABETES MELLITUS per A.D.A. criteria. 38-Mft-792388:25 CBC W/Diff, Automated Comments: Test performed at:[facility] [address], [place] [address] Absolute Lymph 1.28 {X10_3/ul} (Normal) Range: 0.83-4.51 Absolute Neut 3.1 {X10_3/uL} (Normal) Range: 2.0-7.7 IM GRAN % 0.400 % (Normal) Range: 0.0-0.9 Comments: IG% - Immature Granulocytes (promyelocytes, myelocytes andmetamyelocytes) > 1% indicates that a LEFT SHIFT is Present. BASO% 0.4 % (Normal) Range: 0-1 EO% 1.0 % (Normal) Range: 0-5 MONO% 10.2 % (Abnormal) Range: 0-10 LY% 25.6 % (Normal) Range: 19-41 NEUT% 62.4 % (Normal) Range: 47-70 MPV 9.4 fL (Normal) Range: 6.2-12.0 PLT 280 K/mm3 (Normal) Range: 150-450 RDW SD 48.1 fL (Abnormal) Range: 35.1-43.9 RDW CV 13.6 % (Normal) Range: 11.6-14.6 MCHC 32.0 {g/gl} (Normal) Range: 32-36 MCH 31.5 pg (Normal) Range: 27.0-32.0 MCV 98.5 fL (Normal) Range: 81-99 HCT 38.8 % (Normal) Range: 37-47 HGB 12.4 g/dL (Normal) Range: 12.0-15.0 RBC 3.94 {M/mm3} (Abnormal) Range: 4.2-5.4 WBC 5.0 K/mm3 (Normal) Range: 4.4-11.0 89-Mzg-535967:25 Comprehensive Metabolic Profil Comments: Test performed at:[facility] [address] [place], [place] [address] GAP 4 (Abnormal) Range: 5-15 CO2 29.0 mmol/L (Normal) Range: 21.0-32.0 CL 107 mmol/L (Normal) Range: 98-107 K 4.2 mmol/L (Normal) Range: 3.5-5.1 NA 140 mmol/L (Normal) Range: 136-145 T BILI 0.40 mg/dL (Normal) Range: 0.00-4.00 ALT 28 U/L (Normal) Range: 12-78 ALK P 57 U/L (Normal) Range: 50-136 AST 18 U/L (Normal) Range: 15-37 CA 8.8 mg/dL (Normal) Range: 8.5-10.1 A/G 0.9 {RATIO} (Normal) Range: 0.9-2.4 GLOB 3.4 g/dL (Normal) Range: 2.7-4.2 ALB 3.0 g/dL (Abnormal) Range: 3.4-5.0 T PROT 6.4 g/dL (Normal) Range: 6.4-8.2 BUN/CRE 21.3 {RATIO} (Abnormal) Range: 10-20 EST GFR - AA 92 mL/min (Normal) EST GFR 76 mL/min (Normal) CREAT,SERUM 0.8 mg/dL (Normal) Range: 0.6-1.0 BUN 17 mg/dL (Normal) Range: 7-18 GLU 100 mg/dL (Normal) Range: 70-110 [id number] URINE DELMAR CULTURE-JEROME COL Comments: PATIENT NOT FASTINGPERFORMED BY: [facility] [id number] [facility] [id number] Information: SRC:UR [id number] COUNT ([id number]) Result 1 MUG (Normal) Comments: Mixed urogenital flora1,000 Colonies/mL Urine Culture,Comprehensive Final report (Normal) [id number] Urinalysis, Office ([id number]) UA - LEUKOCYTE ESTERASE Trace (Normal) UA - NITRITE Negative (Normal) URINE UROBILINGN JEROME TIMED Normal mg/dL (Normal) UA - PROTEIN Negative mg/dL (Normal) UA - PH 6.0 (Normal) Comments: 5.5 UA - BLOOD Negative (Normal) UA - SPECIFIC GRAVITY 1.030 (Abnormal) UA - KETONES Negative mg/dL (Normal) UA - BILIRUBIN Negative (Normal) UA - GLUCOSE Negative (Normal) [id number] CBCD ALC 1.51 {X10_3/ul} (Normal) Range: 0.83-4.51 ANC 3.6 {X10_3/uL} (Normal) Range: 2.0-7.7 IG% 0.200 % (Normal) Range: 0.0-0.9 Comments: IG% - Immature Granulocytes (promyelocytes, myelocytes andmetamyelocytes) > 1% indicates that a LEFT SHIFT is Present. B% 0.5 % (Normal) Range: 0-1 E% 0.9 % (Normal) Range: 0-5 M% 9.1 % (Normal) Range: 0-10 L% 26.5 % (Normal) Range: 19-41 N% 62.8 % (Normal) Range: 47-70 MPV 9.3 fL (Normal) Range: 6.2-12.0 PLT 289 K/mm3 (Normal) Range: 150-450 RDWSD 44.9 fL (Abnormal) Range: 35.1-43.9 RDWCV 13.3 % (Normal) Range: 11.6-14.6 MCHC 32.5 {g/gl} (Normal) Range: 32-36 MCH 31.1 pg (Normal) Range: 27.0-32.0 MCV 95.6 fL (Normal) Range: 81-99 HCT 40.9 % (Normal) Range: 37-47 HGB 13.3 g/dL (Normal) Range: 12.0-15.0 RBC 4.28 {M/mm3} (Normal) Range: 4.2-5.4 WBC 5.7 K/mm3 (Normal) Range: 4.4-11.0 [id number] CMP Comments: Comments: FAX RESULTS TO DR. MARRERO - FAITHT DRAW GAP 4 (Abnormal) Range: 5-15 CO2 28.0 mmol/L (Normal) Range: 21.0-32.0 CL 107 mmol/L (Normal) Range: 98-107 K 4.0 mmol/L (Normal) Range: 3.5-5.1 NA 139 mmol/L (Normal) Range: 136-145 BIT 0.60 mg/dL (Normal) Range: 0.00-4.00 ALT 25 U/L (Normal) Range: 12-78 ALK 59 U/L (Normal) Range: 50-136 AST 16 U/L (Normal) Range: 15-37 CA 8.9 mg/dL (Normal) Range: 8.5-10.1 AG 1.0 {RATIO} (Normal) Range: 0.9-2.4 GLOB 3.6 g/dL (Normal) Range: 2.7-4.2 ALB 3.5 g/dL (Normal) Range: 3.4-5.0 TPROT 7.1 g/dL (Normal) Range: 6.4-8.2 BC 25.7 {RATIO} (Abnormal) Range: 10-20 ECRCL 72.10 ml/min (Normal) GFRAA 108 mL/min (Normal) GFR 89 mL/min (Normal) CREAT 0.7 mg/dL (Normal) Range: 0.6-1.0 BUN 18 mg/dL (Normal) Range: 7-18 GLU 103 mg/dL (Normal) Range: 70-110 :30 B12 591 pg/mL (Normal) Range: 211-911 :30 FOL 13.90 ng/mL (Normal) Comments: Has Patient had X-rays with Contrast this admission? NIs Patient Taking Vitamins or Folic Acid Supplements? N Range: 3.1-17.5 [id number] Urinalysis, Office ([id number]) UA - LEUKOCYTE ESTERASE Negative (Normal) UA - NITRITE Negative (Normal) URINE UROBILINGN JEROME TIMED Normal mg/dL (Normal) UA - PROTEIN Negative mg/dL (Normal) UA - PH 5 (Abnormal) UA - BLOOD Negative (Normal) UA - SPECIFIC GRAVITY 1.025 (Normal) UA - KETONES Negative mg/dL (Normal) UA - BILIRUBIN Negative (Normal) UA - GLUCOSE Negative (Normal) [id number] CBCD ALC 1.26 {X10_3/ul} (Normal) Range: 0.83-4.51 ANC 2.4 {X10_3/uL} (Normal) Range: 2.0-7.7 IG% 0.200 % (Normal) Range: 0.0-0.9 Comments: IG% - Immature Granulocytes (promyelocytes, myelocytes andmetamyelocytes) > 1% indicates that a LEFT SHIFT is Present. B% 0.5 % (Normal) Range: 0-1 E% 1.4 % (Normal) Range: 0-5 M% 11.9 % (Abnormal) Range: 0-10 L% 29.9 % (Normal) Range: 19-41 N% 56.1 % (Normal) Range: 47-70 MPV 9.9 fL (Normal) Range: 6.2-12.0 PLT 312 K/mm3 (Normal) Range: 150-450 RDWSD 46.1 fL (Abnormal) Range: 35.1-43.9 RDWCV 13.4 % (Normal) Range: 11.6-14.6 MCHC 31.9 {g/gl} (Abnormal) Range: 32-36 MCH 30.9 pg (Normal) Range: 27.0-32.0 MCV 97.0 fL (Normal) Range: 81-99 HCT 39.2 % (Normal) Range: 37-47 HGB 12.5 g/dL (Normal) Range: 12.0-15.0 RBC 4.04 {M/mm3} (Abnormal) Range: 4.2-5.4 WBC 4.2 K/mm3 (Abnormal) Range: 4.4-11.0 1-Oeb-792972:52 CMP Comments: SED RATE ADD ON BLOOD IN LAB GAP 6 (Normal) Range: 5-15 CO2 27.0 mmol/L (Normal) Range: 21.0-32.0 CL 107 mmol/L (Normal) Range: 98-107 K 3.8 mmol/L (Normal) Range: 3.5-5.1 NA 140 mmol/L (Normal) Range: 136-145 BIT 0.50 mg/dL (Normal) Range: 0.00-1.00 ALT 23 U/L (Normal) Range: 12-78 ALK 55 U/L (Normal) Range: 45-117 AST 15 U/L (Normal) Range: 15-37 CA 8.8 mg/dL (Normal) Range: 8.5-10.1 AG 0.9 {RATIO} (Normal) Range: 0.9-2.4 GLOB 3.4 g/dL (Normal) Range: 2.7-4.2 ALB 3.1 g/dL (Abnormal) Range: 3.4-5.0 TPROT 6.5 g/dL (Normal) Range: 6.4-8.2 BC 27.1 {RATIO} (Abnormal) Range: 10-20 GFRAA 108 mL/min (Normal) GFR 89 mL/min (Normal) CREAT 0.7 mg/dL (Normal) Range: 0.6-1.0 BUN 19 mg/dL (Abnormal) Range: 7-18 GLU 126 mg/dL (Abnormal) Range: 70-110 Comments: Fasting Glucose result greater than or equal to 126 mg/dLsuggests DIABETES MELLITUS per A.D.A. criteria. 0-Hkq-200540:52 SED tSEDRATE 32 mm/h (Abnormal) Range: 0-30 :21 iPBE 0 mmol/L (Normal) :21 iPCO2 40.0 {mmHg} (Normal) Range: 35-45 :21 iPH 7.41 (Normal) Range: 7.35-7.45 :21 iPO2 83 {mmHG} (Normal) Range: 75-100 :21 iTCO2 26 mmol/L (Normal) :21 iTHCO3 25 mmol/L (Normal) Range: 22-26 Comments: Site = L BrachialAllens Test = POSDevice = Room AirResults To = OTHERTime Given = 915 :21 cMZ9AEW 96 % (Normal) Range: 95-99 :21 iTYPE ART (Normal) 0-Ijs-175278:37 Rapid Flu (18052 x 2) Comments: neg Influenza A Ag negative a and b (Normal) 2-Iik-675809:59 Influenza A&B Viral Comments: neg; PATIENT NOT FASTINGPERFORMED BY: [facility] [address] [place] [id number] Information: SRC:NOS [id number] Culture ([id number])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 intrahepatic bile ducts. The spleen is hanna l size and contour with normal enhancement. Normal gallbladder and visualized common bile duct (CBD). The pancreas is normal without focal or diffuse enlargement, atrophy or pancreatic calcifications. N ormal bilateral adrenal glands. Small lateral probable cyst in left kidney. A small angiomyolipoma could have similar appearance. It is indeterminate due to its size but unlikely to be aggressive lesi on. Measured only 6 mm in The visualized bilateral ureters are normal without a demonstrated hydroureter or ureteral calculus. Normal retroperitoneum without lymphadenopathy or a mass lesion. Normal v isualized distal esophagus and stomach. Normal visualized small intestine, without an obstruction or bowel wall edema. The few air fluid levels are present in the transverse colon. The proximal one magdaleno lf of the sigmoid colon is straightened and has uniformly mildly thickened wall throughout. No surrounding inflammation no obstruction and no associated stranding of the fat. Is a nonspecific appearan ce but may be due to chronic inflammation if the patient has a history of colitis. Radiation change could potentially cause these findings if the patient has ever had pelvic radiation. The appendix is absent surgically.There is no peritoneal fluid. There is no demonstrated free peritoneal or extraluminal gas. Normal caliber of the abdominal aorta. Normal caliber of the inferior vena cava. Normal v isualized osseous and soft tissue structures CT PELVIS WITH CONTRAST FINDINGS:Normal bladder without demonstrated mass, wall thickening or calculus. The uterus is normal in size and contour. Normal adn exal regions without a demonstrated ovarian or adnexal mass lesion. There is no demonstrated pelvic fluid collection. There is no demonstrated pelvic or inguinal lymphadenopathy. Normal visualized pelv ic arteries and veins. IMPRESSION:The sigmoid colon is somewhat straightened with uniform thickening of the wall. This may be the result of old colitis if the patient has any history of such, but radi ation change could have similar appearance if the patient has ever had radiation. No pelvic mass to suggest an ovarian origin mass that might explain the elevated hCG. The appendix is surgically absent. Reported By: LOREN MALCOLM M.D. 26-Fdm-072921:15 TRANSVAGINAL NON-PREG US () Radiology Report See Note (Normal) Comments: Exam Number: [id number] CLINICAL:58-year-old female post menopausal with positive beta-hCG PELVIC ULTRASOUND - TRANSABDOMINAL COMPARISON:None. FINDINGS:Normal urinary bladder contour, without focal or di ffuse wall thickening. There are no bladder calculi or intracystic masses. Normal uterine size, measuring 6 by 2.7 x 4.6.cm in maximum craniocaudal dimension. There are no myometrial masses. The endom etrium measures 0.22 cm. Neither ovary was visualized. There is no evidence of intrauterine . There is no free fluid within the pelvis. IMPRESSION:No definite evidence of intrauterine pregnanc y. Follow up exam in two to 3 weeks recommended. Reported By: WILLIE BOLIVAR M.D. 72-Pod-789644:55 PELVIC (NON-PREG) (HP) Radiology Report See Note (Normal) Comments: Exam Number: [id number] CLINICAL:58-year-old female post menopausal with positive beta-hCG PELVIC ULTRASOUND - TRANSABDOMINAL COMPARISON:None. FINDINGS:Normal urinary bladder contour, without focal or di ffuse wall thickening. There are no bladder calculi or intracystic masses. Normal uterine size, measuring 6 by 2.7 x 4.6.cm in maximum craniocaudal dimension. There are no myometrial masses. The endom etrium measures 0.22 cm. Neither ovary was visualized. There is no evidence of intrauterine . There is no free fluid within the pelvis. IMPRESSION:No definite evidence of intrauterine pregnanc y. Follow up exam in two to 3 weeks recommended. Reported By: WILLIE BOLIVAR M.D. : HCG QUANT. 5 m[iU]/mL Range: 0-3 28 (Abnormal) Comments: QUANTITATIVE hCG () TEST is *POSITIVE* :28 ,SERUM HCGSQUAL SeeNote m[iU]/mL (Abnormal) Range: 0-3 Nonpreg Comments: Result: POSITIVE TEST is *POSITIVE* :28 ,URINE HCGUQUAL SeeNote m[iU]/mL (Normal) Comments: Result: Negative 04-Pok-606598:17 DELMAR CULTURE-OTHER (06994) Comments: PATIENT NOT FASTINGClinical Information: SRC:THRT ADD [id number] PERFORMED BY: [facility] [facility] [id number] Result 1 RRF (Normal) Comments: Routine respiratory gabriella Upper Respiratory Culture Final report (Normal) 41-Xii-273029:03 LQD PAP [id number] Comments: CYTOLOGY INFORMATION:- CLINICAL INFORMATION: - DATE LMP/MENOPAUSE: 1998 LMP- COLLECTION VIAL: Thin Prep Vial- TIRE BUILDER SOURCE: CERVICAL/ENDOCERVICAL- COLLECTION TECHNIQUE: BRUSH/SPATULA ADEQ Comment (Normal) Comments: Satisfactory for evaluation. Endocervical and/or squamous metaplasticcells (endocervical component) are present. COMM . (Normal) DIAGN Comment (Normal) Comments: NEGATIVE FOR INTRAEPITHELIAL LESION AND MALIGNANCY. HPV RFLX Comment (Normal) Comments: The HPV DNA reflex criteria were not met with this specimenresult therefore, no HPV testing was performed. .Performed At: [address] [id number] PAPSMR Comment (Normal) Comments: The Pap smear is a screening test designed to aid in thedetection of premalignant and malignant conditions of theuterine cervix. It is not a diagnostic procedure andshould not be used as the sole means of detecting cervicalcancer. Both false-positive and false-negative reports dooccur. . PERFORM Comment (Normal) Comments: Ashwin Blanc, Grade Setter (ASCP) 59-Udh-572594:52 Microscopic Examination Comments: PATIENT WAS FASTINGPERFORMED BY: [facility] [id number] Bacteria Few (Normal) Epithelial Cells (non renal) None seen {/hpf} (Normal) Range: 0 - 10 RBC None seen {/hpf} (Normal) Range: 0 - 3 WBC 0-5 {/hpf} (Normal) Range: 0 - 5 66-Azg-748882:52 MICROALBUMIN: CREATININE RATIO Comments: PATIENT WAS FASTINGPERFORMED BY: [facility] [id number] ([id number]) AND (61492) Creatinine, Urine 353.6 mg/dL (Abnormal) Range: 15.0-278.0 Microalb/Creat Ratio 5.4 {ug/mg_creat} (Normal) Range: 0.0-30.0 Microalbumin, Urine 19.2 ug/mL (Abnormal) Range: 0.0-17.0 47-Oxs-965172:52 URINALYSIS (12729) Comments: PATIENT WAS FASTINGPERFORMED BY: [facility] [id number] Appearance Clear (Normal) Bilirubin Negative (Normal) Glucose Negative (Normal) Ketones Negative (Normal) Microscopic Examination See below: (Normal) Nitrite, Urine Negative (Normal) Occult Blood Negative (Normal) pH 8.0 (Abnormal) Range: 5.0-7.5 Protein 1+ (Abnormal) Specific [place] 1.010 (Normal) Range: 1.005-1.030 Urine-Color Yellow (Normal) Urobilinogen,Semi-Qn 0.2 mg/dL (Normal) Range: 0.0-1.9 WBC Esterase Negative (Normal) 37-Prm-397802:52 Metabolic Panel, Comprehensive Comments: PATIENT WAS FASTINGPERFORMED BY: [facility] SystemHbkxwc1281 [facility] [id number] ([id number]) A/G Ratio 1.6 (Normal) Range: 1.1-2.5 Albumin, Serum 3.9 g/dL (Normal) Range: 3.6-4.8 Alkaline Phosphatase, S 58 [iU]/L (Normal) Range: 25-165 ALT (SGPT) 8 [iU]/L (Normal) Range: 0-40 AST (SGOT) 16 [iU]/L (Normal) Range: 0-40 Bilirubin, Total 0.7 mg/dL (Normal) Range: 0.1-1.2 BUN 18 mg/dL (Normal) Range: 5-26 BUN/Creatinine Ratio 25 (Normal) Range: 8-27 Calcium, Serum 9.4 mg/dL (Normal) Range: 8.5-10.6 Carbon Dioxide, Total 24 mmol/L (Normal) Range: 20-32 Chloride, Serum 108 mmol/L (Normal) Range: 97-108 Creatinine, Serum 0.71 mg/dL (Normal) Range: 0.57-1.00 eGFR >59 mL/min/1.73 (Normal) eGFR AfricanAmerican >59 mL/min/1.73 Comments: Note: Persistent reduction for 3 months or more in an eGFR<60 mL/min/1.73 m2 defines CKD. Patients with eGFR values>/=60 mL/min/1.73 m2 may also have CKD if evidence of persistentproteinuria is (Normal) present. Additional information may be found [email or web address]. Globulin, Total 2.5 g/dL (Normal) Range: 1.5-4.5 Glucose, Serum 95 mg/dL (Normal) Range: 65-99 Potassium, Serum 4.1 mmol/L (Normal) Range: 3.5-5.2 Protein, Total, Serum 6.4 g/dL (Normal) Range: 6.0-8.5 Sodium, Serum 144 mmol/L (Normal) Range: 135-145 00-Iwf-592834:52 Lipid Panel (27518) Comments: PATIENT WAS FASTINGPERFORMED BY: [facility] SystemCmrkpn5511 [facility] [id number] Cholesterol, Total 237 mg/dL (Abnormal) Range: 100-199 Comment SPRCS (Normal) Comments: If initial LDL-cholesterol result is >100 mg/dL, assess forrisk factors. HDL Cholesterol 64 mg/dL (Normal) Comments: According to ATP-III Guidelines, HDL-C >59 mg/dL is considered anegative risk factor for CHD. LDL Cholesterol Calc 154 mg/dL (Abnormal) Range: 0-99 LDL/HDL Ratio 2.4 {ratio_units} (Normal) Range: 0.0-3.2 Triglycerides 93 mg/dL (Normal) Range: 0-149 VLDL Cholesterol García 19 mg/dL (Normal) Range: 5-40 55-Avm-377222:52 CBC with manual diff (54923) Comments: PATIENT WAS FASTINGClinical Information: ADD DARW FEE [id number] ADD J 67436 PERFORMED BY: [facility] SystemDosqhg8870 [facility] [id number] Baso (Absolute) 0.1 {x10E3/uL} (Normal) Range: 0.0-0.2 Basos 1 % (Normal) Range: 0-3 Eos 1 % (Normal) Range: 0-7 Eos (Absolute) 0.1 {x10E3/uL} (Normal) Range: 0.0-0.4 Hematocrit 37.7 % (Normal) Range: 34.0-44.0 Hemoglobin 12.9 g/dL (Normal) Range: 11.5-15.0 Lymphs 39 % (Normal) Range: 14-46 Lymphs (Absolute) 2.5 {x10E3/uL} (Normal) Range: 0.7-4.5 MCH 31.9 pg (Normal) Range: 27.0-34.0 MCHC 34.2 g/dL (Normal) Range: 32.0-36.0 MCV 93 fL (Normal) Range: 80-98 Monocytes 9 % (Normal) Range: 4-13 Monocytes(Absolute) 0.6 {x10E3/uL} (Normal) Range: 0.1-1.0 Neutrophils 50 % (Normal) Range: 40-74 Neutrophils (Absolute) 3.2 {x10E3/uL} (Normal) Range: 1.8-7.8 Platelets 295 {x10E3/uL} (Normal) Range: 140-415 Comments: Please note reference interval change RBC 4.05 {x10E6/uL} (Normal) Range: 3.80-5.10 RDW 14.0 % (Normal) Range: 11.7-15.0 WBC 6.3 {x10E3/uL} (Normal) Range: 4.0-10.5 Plan of Care Name Dates Details Instructions 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) Indication: Carnitine deficiency Carnitine deficiency : Reviewed Lab Indication: Carnitine deficiency Nonsmoker : Follow up in 1 month for medicare physical Indication: Nonsmoker Nonsmoker : Eprescribed prescriptions (G8553) Indication: Nonsmoker Cough : Follow up if no improvement or if symptoms worsen Indication: Cough Nonsmoker : Eprescribed prescriptions (G8553) Indication: Nonsmoker Nonsmoker : Eprescribed prescriptions (G8553) Indication: Nonsmoker Nonsmoker : Follow up in 1 week Indication: Nonsmoker Carnitine deficiency : Reviewed Diagnostic Tests Indication: Carnitine deficiency Infected sebaceous cyst : I/D Cyst/Abscess Indication: Infected sebaceous cyst Nonsmoker : Eprescribed prescriptions (G8553) Indication: Nonsmoker BMI 32.0-32.9,adult : Follow up in 3 months Indication: BMI 32.0-32.9,adult Pain in unspecified joint : Eprescribed prescriptions (G8553) Indication: Pain in unspecified joint Nonsmoker : Follow up in 1 week Indication: Nonsmoker Left foot pain : Eprescribed prescriptions (G8553) Indication: Left foot pain UTI symptoms : Follow up if no improvement or if symptoms worsen Indication: UTI symptoms Urinary tract infection in female : Urinary Tract Infection in Women *: bladder infection Indication: Urinary tract infection in female Nonsmoker : Eprescribed prescriptions (G8553) Indication: Nonsmoker Sinusitis, bacterial : Follow up if no improvement or if symptoms worsen Indication: Sinusitis, bacterial Sinusitis, bacterial : Eprescribed prescriptions (G8553) Indication: Sinusitis, bacterial BMI 32.0-32.9,adult : Follow up if no improvement or if symptoms worsen Indication: BMI 32.0-32.9,adult Allergic rhinitis, mild : Continue Nasocort. Indication: Allergic rhinitis, mild BMI 32.0-32.9,adult : Eprescribed prescriptions (G8553) Indication: BMI 32.0-32.9,adult Hypertension : Eprescribed prescriptions (G8553) Indication: Hypertension Nonsmoker : Follow up in 2 weeks for BP check and EKG Indication: Nonsmoker Hypertension : Eprescribed prescriptions (G8553) Indication: Hypertension Postmenopausal (Renamed from Postmenopausal status) : Follow up in 2 days Indication: Postmenopausal (Renamed from Postmenopausal status) Well woman exam : Eprescribed prescriptions (G8553) Indication: Well woman exam Well woman exam : Self breast exam Indication: Well woman exam Well woman exam : *Well Female Maintenance (SMC) Indication: Well woman exam Well woman exam : Pap/Pelvic/Bimanual/Rectal/Breast Exam was done. Indication: Well woman exam Dry eye syndrome : Follow up if no improvement or if symptoms worsen Indication: Dry eye syndrome Facial pressure : Eprescribed prescriptions (G8553) Indication: Facial pressure Insomnia : Follow up in 3 months with [facility] Indication: Insomnia Vitamin D deficiency, unspecified : Reviewed Lab Indication: Vitamin D deficiency, unspecified DEPRESSIVE DISORDER (311.0) : Reviewed Diagnostic Tests Indication: DEPRESSIVE DISORDER (311.0) UTI symptoms : Eprescribed prescriptions (G8553) Indication: UTI symptoms Neuropathy due to herpes zoster : Follow for wart freeezing at your convience Indication: Neuropathy due to herpes zoster Encounter for Medicare annual wellness exam : Follow up in 2 weeks Indication: Encounter for Medicare annual wellness exam Encounter for Medicare annual wellness exam : *Colon Cancer Screening Indication: Encounter for Medicare annual wellness exam Encounter for Medicare annual wellness exam : fall reduction handout Indication: Encounter for Medicare annual wellness exam Encounter for Medicare annual wellness exam : elderly packet given Indication: Encounter for Medicare annual wellness exam Encounter for Medicare annual wellness exam : advance planning information Indication: Encounter for Medicare annual wellness exam Urinary frequency : follow up for recheck urine 1 week after complete antibiotic Indication: Urinary frequency Urinary frequency : *UTI treatment Indication: Urinary frequency Urinary frequency : Water in diet, brief version Indication: Urinary frequency Leg swelling : Follow up if no improvement or if symptoms worsen Indication: Leg swelling Back pain : Follow up on Wednesday with [facility] Indication: Back pain Carnitine deficiency : Follow up - Make appt after diagnostic tests follow up For NEW TO MEDICARE PHYical Indication: Carnitine deficiency Shortness of breath at rest : Reviewed Lab Indication: Shortness of breath at rest Carnitine deficiency : Reviewed Lab Indication: Carnitine deficiency PREVENTION OF FLU : Flu (Influenza) *: flu Indication: PREVENTION OF FLU PREVENTION OF FLU : Flu (Influenza) *: flu shot Indication: PREVENTION OF FLU VERTIGO : *Vertigo Education Indication: VERTIGO Sinus infection : *Antibiotic Usage Education - Female Indication: Sinus infection Sinus infection : Sinus Headache: sinus headache Indication: Sinus infection Myopathy NOS : Follow up in 4 months Indication: Myopathy NOS Anemia, unspecified : Anemia: diagnosis and treatment Indication: Anemia, unspecified Hypercholesteremia : Follow up in 3 months Indication: Hypercholesteremia FATIGUE : *fatigue education Indication: FATIGUE Unspecified Diagnosis : Follow up in 3 months Indication: Unspecified Diagnosis Hypercholesteremia : Diet, Exercise, and Wt loss Indication: Hypercholesteremia Rash and other nonspecific skin eruption : Follow up after lab work completed Indication: Rash and other nonspecific skin eruption Neck pain : Reviewed Diagnostic Tests Indication: Neck pain Rash and other nonspecific skin eruption : FOLLOW UP IN 3 MONTHS Indication: Rash and other nonspecific skin eruption Unspecified inflammatory polyarthropathy : FOLLOW UP IN 3 MONTHS with [facility] Indication: Unspecified inflammatory polyarthropathy Vitamin D deficiency, unspecified : FOLLOW UP IN 3 MONTHS for Gen Med Indication: Vitamin D deficiency, unspecified Allergic rhinitis due to other allergen : ALLERGY PROOFING Indication: Allergic rhinitis due to other allergen Allergic rhinitis due to other allergen : ALLERGY CONTROL Indication: Allergic rhinitis due to other allergen Allergic rhinitis due to other allergen : *URI Symptoms Indication: Allergic rhinitis due to other allergen Bronchitis : *URI Treatment Indication: Bronchitis Bronchitis : Antibiotic Usage Education - Female Indication: Bronchitis Bronchitis : URI Symptoms Indication: Bronchitis Abnormal CT of the abdomen : Colon Cancer Screening Indication: Abnormal CT of the abdomen Hiatal hernia : FOLLOW UP IN 4 MONTHS Indication: Hiatal hernia Acute sinusitis, unspecified : *URI Treatment Indication: Acute sinusitis, unspecified Acute sinusitis, unspecified : Antibiotic Usage Education - Female Indication: Acute sinusitis, unspecified Acute sinusitis, unspecified : URI Symptoms Indication: Acute sinusitis, unspecified Pharyngitis, acute : *URI Treatment Indication: Pharyngitis, acute Pharyngitis, acute : Sore throat: diagnosis and treatment Indication: Pharyngitis, acute Well woman exam : Self Breast Exam Education Indication: Well woman exam Well woman exam : Colon Cancer Screening Indication: Well woman exam Well woman exam : Pelvic/Bimanual/Rectal/Breast Exam Indication: Well woman exam Well woman exam : Well Female Maintenance (KF) Indication: Well woman exam DEPRESSIVE DISORDER (311.0) : depression/anxiety treatment Indication: DEPRESSIVE DISORDER (311.0) Planned Observations TSH (86694)Indication: Leg pain On: 45-Dmo-099728:42 Request CBC, Platelets & Auto Diff (61750)Indication: Leg pain On: 89-Nnc-720073:42 Request Metabolic Panel, Comprehensive (08757)Indication: Leg pain On: 80-Ugf-652866:42 Request Vitamin B-12 (cyanocobalamin) (79494)Indication: B12 deficiency On: 17-Fcs-658169:55 Request CPK TOTAL & ISOENZYMES (59995)Indication: Pain in unspecified joint On: 21-Sag-808899:03 Request URINE DELMAR CULTURE-IDENTIFICATN (59930)Indication: Dysuria On: 60-Bsr-316692:16 Request URINALYSIS (57890)Indication: Dysuria On: 64-Tny-340932:16 Request CALCIFEDIOL (15640)Indication: Postmenopausal (Renamed from Postmenopausal status) On: 1-Ifb-279733:50 Request HPV automatic (74665)Indication: Screening for HPV (human papillomavirus) (Renamed from Encounter for screening for human papillomavirus (HPV)) On: 9-Usp-954580:49 Request Metabolic Panel, Comprehensive (52520)Indication: DM (diabetes mellitus screen) On: 79-Zqe-278057:24 Request TSH (34709)Indication: Screening for deficiency anemia On: 62-Lws-277044:23 Request CBC, Platelets & Auto Diff (61933)Indication: Screening for deficiency anemia On: 21-Lee-056510:23 Request Lipid Panel (55023)Indication: Screening for hyperlipidemia On: 21-Wom-908082:23 Request VITAMIN B12 AND FOLATES (64260)Indication: Leg pain On: 8-Fzj-604856:27 Request HEPATIC FUNCTION PANEL (95528)Indication: Hypercholesteremia On: 74-Mkb-564991:15 Request CBC with manual diff (57694)Indication: Carnitine deficiency On: 28-Ble-214998:10 Request Metabolic Panel, Comprehensive (81831)Indication: Arthritis On: 76-Fdg-147572:10 Request LIPID PANEL (77223)Indication: Hypercholesteremia On: 52-Bpk-481358:10 Request CBC (AUTO) (61450)Indication: FATIGUE On: 6-Txh-842988:24 Request METABOLIC PANEL, COMPREHENSIVE (59068)Indication: FATIGUE On: :24 Request Folate (31417)Indication: FATIGUE On: 6-Hsw-608358:24 Request VITAMIN B-12 (CYANOCOBALAMIN) (73468)Indication: FATIGUE On: 4-Qou-427383:24 Request TSH (16267)Indication: DEPRESSIVE DISORDER (311.0) On: 48-Pfk-252057:16 Request CBC with manual diff (74944)Indication: Myopathy NOS On: 6-Hps-438704:03 Request Metabolic Panel, Comprehensive (72738)Indication: DEPRESSIVE DISORDER (311.0) On: 5-Yyh-282792:03 Request Lipid Panel (54115)Indication: Hypercholesteremia On: 8-Sqa-356889:03 Request CALCIFEDIOL (76580)Indication: Vitamin D deficiency, unspecified On: 0-Vwl-437061:02 Request Renal function Panel (98145)Indication: Neck pain On: 05-Ynd-140248:14 Request CALCIFEDIOL (07085)Indication: Vitamin D deficiency, unspecified On: 26-Jun-20099:26 Request Comments: draw Beginning September 2009 TEST - SERUM QUANTITATIVE (HCG) (39245)Indication: Abnormal blood chemistry On: 52-Trc-624347:06 Request PREGNACY TEST, URINE (80837)Indication: Abnormal blood chemistry On: 37-Bmy-947559:06 Request Lipid Panel (11423)Indication: Hypercholesteremia On: 19-Skr-992313:16 Request Comments: fasting Rapid Strep Test, Office (21749)Indication: Pharyngitis, acute On: 07-Btk-853133:04 Request Thin prep Pap (63997)Indication: Well woman exam On: 60-Kat-218720:09 Request FECAL OCCULT HGB ASSAY- tubes sent home (13174)Indication: Well woman exam On: 84-Sxs-784088:54 Request OCCULT BLOOD FECES SCREEN- card done in office (47614)Indication: Well woman exam On: :54 Request CPK TOTAL & ISOENZYMES (35820)Indication: Myalgia and myositis On: 08-Myd-378790:37 Request CALCIFEDIOL (72654)Indication: Leg cramps On: :36 Request VITAMIN B-12 (CYANOCOBALAMIN) (64467)Indication: Pain in unspecified joint On: :35 Request PARATHORMONE (85833)Indication: Myalgia and myositis On: :35 Request RHEUMATOID FACTOR-QUANT (06707)Indication: Pain in unspecified joint On: :15 Request SED RATE ERYTHROCYTE (88787)Indication: Pain in unspecified joint On: :15 Request Planned Procedures Venous Doppler - LeftBy: Teddy BINGHAM, On: 02-May-2018 Intent Aislinn Leonard CNP Aerosol Treatment (32198)By: Teddy On: 28-Mar-2018 Intent Aislinn BINGHAM CNP, Mary E Flu Vaccine (Quadrivalent) 51589Wh: On: 28-Mar-2018 Aislinn Giron CNP, CNP, Mary E Comments: Lot #[id number]-L dltd, IMDose prefilled syringegiven by: VENANCIO Noriega reviewed and ABN signed B 12 Injection, 1000 mcg (J3420)By: On: 10-Mar-2018 Intent Pamela Bates Comments: Vitamin B12 1000 mcg injectionLot--[id number]--04/2019R Delt IMpt tolerated wellCHRISTOPHE NORIEGA Solu -Medrol Injection, 125 mg On: 03-Dec-2017 Intent ([id number])By: Aislinn Boykin CNP, CNP, Mary E Radiology - Foot - LeftBy: Teddy On: 03-Dec-2017 Intent Aislinn BINGHAM CNP, Mary E Radiology - ChestBy: Aislinn Boykin CNP On: 23-Dec-2016 Intent Aislinn Araujo CNP Ear Irrigation ([id number])By: Teddy On: 18-Dec-2016 Intent Aislinn BINGHAM CNP, Mary E Wax CurettesBy: Teddy BINGHAM Aislinn Aragon On: 18-Dec-2016 Intent Teddy BINGHAMAislinn Aerosol Treatment ([id number])By: Teddy On: 18-Dec-2016 Intent Aislinn BINGHAM SwethaAislinn armenta CNP Wax CurettesBy: Pamela Bates On: 01-Dec-2016 Intent Ear Irrigation ([id number])By: Paulo On: 01-Dec-2016 Intent Pamela Comments: Ear Irrigation performed on:rightAmount/color removed cerumen:small OUtcome:clear and tolerated PNEUM VAC ADLT/IMUMNOSPR, SBC/INTRM On: 19-May-2016 Intent ([id number])By: Teddy BINGHAM Aislinn Aragon Teddy BINGHAM Aislinn Aragon Flu Vaccine (Quadrivalent) [id number]: On: 12-May-2016 Intent Teddy BINGHAMAislinn Swethanylakayli BINGHAM Aislinn Aragon Comments: FLUlot: [id number]:11/04site:Lt deltoidroute:IMdose:.5mlDEMICK, MA DEXA SCAN AXIAL SKELETON ([id number])By: On: 22-Apr-2016 Intent Teddy BINGHAM Aislinn Aragon Swethakathi ZACHERY Aislinn Aragon Pap Smear, Medicare ([id number])By: Teddy On: 22-Apr-2016 Intent Aislinn BINGHAM Swethakathi ZACHERY Aislinn Aragon FLU VACCINE H1N1 ([id number])By: Teddy On: 06-Mar-2015 Intent Aislinn BINGHAM Swethakathi ZACHERY Aislinn Aragon Comments: Lot:[id number]:12/19/15Dose:0.5mLRoute:IMSite:L DltdGiven By:MIKE signed ADMINISTRATION OF H1N1 INFLUENZA On: 06-Mar-2015 Intent VIRUS VACCINE ([id number])By: Teddy BINGHAM DivyaMargo Boykin CNP Divya DEXA SCAN AXIAL SKELETON ([id number])By: On: 06-Mar-2015 Intent Teddy BINGHAM DivyaMargo Boykin CNP Aislinn Aragon MAMMOGRAM, SCREENING, BOTH BREAST On: 06-Mar-2015 Intent ([id number])By: Aislinn Boykin CNP, CNP Divya ANNUAL DEPRESSION SCREENING, 15 On: 06-Mar-2015 Intent MINUTES (G0444)By: Aislinn Boykin CNP, CNP, Mary E Venous Doppler - LeftBy: Teddy BINGHAM, On: 29-Aug-2014 Intent Aislinn Leonard CNP MARY ALICE (Ankle Brachial Index) On: 29-Aug-2014 Intent ([id number])By: Aislinn Boykin CNP, CNP, Mary E SPECIMEN HANDLING/TRANSPORT On: 16-May-2014 Intent ([id number])By: Aislinn Boykin CNP, CNP, Mary E Flu Vaccine (Quadrivalent) [id number]: On: 19-Apr-2014 Intent Aislinn Boykin CNP, CNP, Mary E Comments: lot:[id number]:dose:0.5mLRoute: IMlocation: L armgiven by: elyse ADMINISTRATION OF INFLUENZA VIRUS On: 19-Apr-2014 Intent VACCINE ([id number])By: Mckenzie Zhao Radiology - Lumbar SpineBy: Alidaa On: 29-Dec-2013 Intent Aislinn BINGHAM CNP, Mary E Toradol Injection, 30 mg ([id number])By: On: 29-Dec-2013 Intent Aislinn Boykin CNP, CNP, Mary E Ear Irrigation ([id number])By: Eben On: 19-Apr-2013 Intent Mayela LONDONO Comments: Ear Irrigation performed on:bilateralAmount/color removed cerumen:small amount of darkl brown waxOUtcome:clearUsed wax curettes FLU VAC, SPLIT, >3 YEARS, INTRAMUSC On: 19-Apr-2013 Intent ([id number])By: Pamela Crooks LPN Comments: Lot:[id number]:6.14Amt:0.5mlRoute:IMSite: L DltdGiven By: Alejandra CMAVIS signed IMMUNIZ ADMNIN, 1 VAC, SNGL/COMBO On: 19-Apr-2013 Intent ([id number])By: Pamela Crooks LPN Wax CurettesBy: Mayela Treadwell DO On: 19-Apr-2013 Intent Eprescribed prescriptions ([id number])By: On: 19-Apr-2013 Intent Pamela Crooks LPN B 12 Injection, 1000 mcg (J3420)By: On: 28-Dec-2012 Intent Kassie Tellez LPN B 12 Injection, 1000 mcg (J3420)By: On: 29-Nov-2012 Intent Pattie Malagon LPN Comments: Lot: [id number]: [id number]: 1000mcg/1mlRoute: IMSite: L deltoidGiven by: CHRISTOPHE Allen B 12 Injection, 1000 mcg (J3420)By: On: 26-Oct-2012 Intent Jina Gomes LPN Comments: Lot #[id number]/14Site-right deltoidDose-1 mlgiven by: Rishabh Gomes LPN B 12 Injection, 1000 mcg (J3420)By: On: 11-Oct-2012 Intent Deedee Cantrell Comments: lot: [id number]:06/03site/route: L deltoid/IMamt: 1ccVIS signed when applicableChelsea, TOP BOTTOM ATTACHING MACHINE OPERATOR B 12 Injection, 1000 mcg (J3420)By: On: 05-Oct-2012 Intent Aislinn Boykin CNP, CNP, Mary E B 12 Injection, 1000 mcg (J3420)By: On: 27-Sep-2012 Intent Valencia Renee Comments: Lot:[id number]:06/03Dose:1mlRoute:IMSite:l armGiven By:BRYNN signed IMMUNIZ ADMNIN, 1 VAC, SNGL/COMBO On: 29-Mar-2012 Intent ([id number])By: Aislinn Boykin CNP Comments: lot # [id number]- 12/18/1235dgni-SRQTjgoyc-EAypin- 0.5 MLCHendersAislinn gunn LPN, CNP MAMMOGRAM, SCREENING, BOTH BREASTS On: 29-Mar-2012 Intent ([id number])By: Aislinn Boykin CNP, CNP, Mary E FLU VAC, SPLIT, >3 YEARS, INTRAMUSC On: 29-Mar-2012 Intent ([id number])By: Aislinn Boykin CNP, CNP, Mary E MRI -Cervical Spine (IV Contrast On: 11-Jun-2010 Intent Needed)By: Aislinn Boykin CNP, CNP, Mary E Radiology - Cervical SpineBy: Eben On: 05-Jun-2010 Intent Mayela LONDONO Aerosol Treatment ([id number])By: Teddy On: 03-Sep-2009 Intent Aislinn BINGHAM CNP, Mary E Pulse Oximetry ([id number])By: Teddy BINGHAM, On: 06-May-2009 Intent Aislinn Leonard CNP Aerosol Treatment ([id number])By: Teddy On: 06-May-2009 Intent Aislinn BINGHAM CNP, Mary E IMMUNIZ ADMNIN, 1 VAC, SNGL/COMBO On: 20-Mar-2009 Intent ([id number])By: Aislinn Boykin CNP, CNP, Mary E FLU VAC, SPLIT, >3 YEARS, INTRAMUSC On: 20-Mar-2009 Intent ([id number])By: Aislinn Boykin CNP Comments: Lot #[id number]-left deltoidgiven by:Aislinn LEMONS CNP CT - Abdomen & Pelvis (IV Contrast On: 14-Mar-2009 Intent Needed)By: Aislinn Boykin CNP, CNP, Mary E Ultrasound - PelvisBy: Teddy BINGHAM On: 14-Mar-2009 Intent Aislinn Leonard CNP Comments: attention adrenals and ovaries SPECIMEN HNDLNG/TRNSPRT, OFFC > LAB On: 18-Jan-2009 Intent ([id number])By: Aislinn Boykin CNP, CNP, Mary E DXA, BONE DENSITY, AXIAL SKELETON On: 13-Nov-2008 Intent ([id number])By: Aislinn Boykin CNP, CNP, Mary E MAMMOGRAM, SCREENING, BOTH BREASTS On: 13-Nov-2008 Intent ([id number])By: Aislinn Boykin CNP, CNP, Mary E ELECTROCARDIOGRAM, COMPLETE (ECG) On: 11-Oct-2008 Intent ([id number])By: Aislinn Boykin CNP, CNP, Mary E Planned Medications INJECTION, KETOROLAC TROMETHAMINE, PER 15 MG Ordered: 29-Dec-2013 Pending Aislinn Boykin CNP, CNP, Mary E INJECTION, METHYLPREDNISOLONE SODIUM SUCCINATE, UP TO 125 MG Ordered: 03-Dec-2017 Pending Ciesa HEAT TREAT TECHNICIAN, Divya Ciesa HEAT TREAT TECHNICIAN, Divya Vitamin B-12 1000 MCG/ML Injection Solution Ordered: 27-Sep-2012 Pending Valencia Renee Vitamin B-12 1000 MCG/ML Injection Solution Ordered: 05-Oct-2012 Pending Teddy BINGHAM, DivyaMargo Boykin HEAT TREAT TECHNICIAN, Aislinn Aragon Vitamin B-12 1000 MCG/ML Injection Solution Ordered: 11-Oct-2012 Pending Deedee Cantrell Vitamin B-12 1000 MCG/ML Injection Solution Ordered: 26-Oct-2012 Pending Eliseo HATCHERY MANJina Vitamin B-12 1000 MCG/ML Injection Solution Ordered: 29-Nov-2012 Pending Vesna HATCHERY MAN, Pattie Vitamin B-12 1000 MCG/ML Injection Solution Ordered: 28-Dec-2012 Pending Geoff HATCHERY MAN, Kassie Vitamin B-12 1000 MCG/ML Injection Solution Ordered: 10-Mar-2018 Pending Pamela Bates Instructions Name Dates Details Carnitine deficiency : How to access health information online Indication: Carnitine deficiency Carnitine deficiency : How to access health information online - Detail Indication: Carnitine deficiency Carnitine deficiency : Patient Instructions Indication: Carnitine deficiency Nonsmoker : How to access health information online Indication: Nonsmoker Nonsmoker : How to access health information online - Detail Indication: Nonsmoker Nonsmoker : Patient Instructions Indication: Nonsmoker Nonsmoker : How to access health information online Indication: Nonsmoker Nonsmoker : How to access health information online - Detail Indication: Nonsmoker Acute asthma exacerbation (Renamed from Acute asthma flare) : Patient Instructions Indication: Acute asthma exacerbation (Renamed from Acute asthma flare) Nonsmoker : How to access health information online Indication: Nonsmoker Nonsmoker : How to access health information online - Detail Indication: Nonsmoker Nonsmoker : Patient Instructions Indication: Nonsmoker Nonsmoker : How to access health information online Indication: Nonsmoker Nonsmoker : How to access health information online - Detail Indication: Nonsmoker Nonsmoker : Patient Instructions Indication: Nonsmoker Pain in unspecified joint : How to access health information online Indication: Pain in unspecified joint Pain in unspecified joint : How to access health information online - Detail Indication: Pain in unspecified joint Pain in unspecified joint : Patient Instructions Indication: Pain in unspecified joint Left foot pain : How to access health information online Indication: Left foot pain Left foot pain : How to access health information online - Detail Indication: Left foot pain Left foot pain : Patient Instructions Indication: Left foot pain Nonsmoker : How to access health information online Indication: Nonsmoker Nonsmoker : How to access health information online - Detail Indication: Nonsmoker Urinary tract infection in female : Patient Instructions Indication: Urinary tract infection in female Sinusitis, bacterial : How to access health information online Indication: Sinusitis, bacterial Sinusitis, bacterial : How to access health information online - Detail Indication: Sinusitis, bacterial Sinusitis, bacterial : Patient Instructions Indication: Sinusitis, bacterial BMI 32.0-32.9,adult : How to access health information online Indication: BMI 32.0-32.9,adult BMI 32.0-32.9,adult : How to access health information online - Detail Indication: BMI 32.0-32.9,adult BMI 32.0-32.9,adult : Patient Instructions Indication: BMI 32.0-32.9,adult Hypertension : How to access health information online Indication: Hypertension Hypertension : How to access health information online - Detail Indication: Hypertension Hypertension : Patient Instructions Indication: Hypertension Hypertension : How to access health information online Indication: Hypertension Hypertension : How to access health information online - Detail Indication: Hypertension Hypertension : Patient Instructions Indication: Hypertension Well woman exam : How to access health information online Indication: Well woman exam Well woman exam : How to access health information online - Detail Indication: Well woman exam Well woman exam : Patient Instructions Indication: Well woman exam Facial pressure : How to access health information online Indication: Facial pressure Facial pressure : How to access health information online - Detail Indication: Facial pressure Facial pressure : Patient Instructions Indication: Facial pressure UTI symptoms : How to access health information online Indication: UTI symptoms UTI symptoms : How to access health information online - Detail Indication: UTI symptoms UTI symptoms : Patient Instructions Indication: UTI symptoms DM (diabetes mellitus screen) : Patient Instructions Indication: DM (diabetes mellitus screen) Back pain : Patient Instructions Indication: Back pain Carnitine deficiency : Patient Instructions Indication: Carnitine deficiency Sinus infection : Patient Instructions Indication: Sinus infection Vitamin D deficiency, unspecified : DISCONTINUED - CALCIFEDIOL (50444) Indication: Vitamin D deficiency, unspecified B12 deficiency : Patient Instructions Indication: B12 deficiency Encounters Office Visit On: 02-May-2018 14:07 Encounter Reason: Follow up acute care visit - The patient feeling better since last seen. Note for Follow up acute care visit: Getting treatment for carnitine, End: 02-May-2018 14:50 [ADDITIONAL REASON] Foot Problem - Symptoms include foot pain and foot swelling. Symptoms are located in the left foot. Onset was 6 month(s) ago. Note for Foot problem: Just left foot hurts with pain and swelling gets red and swollenon and off, is worse with standing and walking3 plus edema left leg , [ADDITIONAL REASON] Cough - Note for Cough : Cough for 5 weeks Encounter Diagnosis: BMI 33.0-33.9,adult, Carnitine deficiency, Cough (786.2), Leg pain [facility] Office Visit On: 28-Mar-2018 13:39 Encounter Reason: Follow up for chronic medical issues - The patient feels well with minor complaints (cough), has decreased energy level and is sleeping poorly. Patient has been compliant with instructions. Current medi End: 28-Mar-2018 14:33 cation use: no side effects, compliant with dosing regimen and considered effective by patient. Patient sleeps 7 (broken-- up to go to bathroom) hours per night. Nutrition: balanced diet. The medical is sues the patient is following up for include All identified problems below, high cholesterol and other (anemia, Depression, arthritis). Note for Follow up for chronic medical issues: Needs to clear throat, still coughing but not as much, [ADDITIONAL REASON] Urinary Urgency - Note for Urinary urgency: Has cystoscopy by new urologist, put on keflex and myrbetriq , [ADDITIONAL REASON] Cough - Note for Cough : cough has been on claritin myrbetriq and no releif of cough Encounter Diagnosis: Nonsmoker, BMI 32.0-32.9,adult, Need for prophylactic vaccination and inoculation against influenza (Renamed from Need for immunization against influenza), Urinary frequency, Cough (786.2), Carnitine deficiency, Dry eye syndrome , DEPRESSIVE DISORDER (311.0) [facility] Office Visit On: 10-Mar-2018 11:21 Encounter Reason: Cough - Symptoms include cough. The cough is described as dry. Cough onset was 1 week(s) ago. Note for Cough: Symptoms started about 1 week ago with sore throat, cough-clear sputum, nasal drainage is End: 10-Mar-2018 13:31 clear, some wheezing 1 night-used an inhaler and that helped,fatigue No headaches, body aches, fever or chills, SOB, CP. Has taken some cough syrup that was prescribed 1 yr ago and that really helped fo r awhile, and claritin. Family has had the same thing.Encounter Diagnosis: Nonsmoker, BMI 33.0-33.9,adult, Cough (786.2), Post-nasal drainage, Elevated blood pressure reading, Acute asthma exacerbation (Renamed from Acute asthma flare), B12 deficiency [facility] Annotation/Addendum On: 16-Feb-2018 14:20 [facility] End: 16-Feb-2018 14:40 Office Visit On: 16-Feb-2018 13:55 Encounter Reason: Follow up acute care visit - The patient feeling better since last seen. Note for Follow up acute care visit: Sebaceous cyst material expressed last visit and during sleep one night more came out, now no drainage and no pain, End: 16-Feb-2018 14:18 [ADDITIONAL REASON] Leg Pain - Note for Leg pain: Hurt when walking but improved after pus came out of sebaceous cyst on back, wondering if they were related Encounter Diagnosis: BMI 32.0-32.9,adult, Nonsmoker, Infected sebaceous cyst [facility] Office Visit On: 08-Feb-2018 15:23 Encounter Reason: Skin Problems - The problem is characterized as other (knot). Note for Skin problems: i have this for about 3-4 months. Have sore on back for 3-4 monthsEncounter Diagnosis: BMI 32.0-32.9,adult, Nonsmoker, Infected sebaceous cyst, End: 08-Feb-2018 16:27 Carnitine deficiency [facility] Office Visit On: 20-Dec-2017 12:53 Encounter Reason: Follow up tests - Date: (). 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 The injury involved the left foot. Symptoms include foot pain and foot swelling. Symptoms are located in the left foot. The patient descr End: 03-Dec-2017 12:17 ibes symptoms as worsening. Note for Foot problem: Left foot swelling and pain like shoot, asking for xray, [ADDITIONAL REASON] Muscle pain - Note for Muscle pain: General muscle pain, history of rhabod had CPK done November 23 sent to muscular skeletal doctor seen by [facility] and told not muscle. Was told it may be joint. , [ADDITIONAL REASON] UTI - Note for Infection: Had UTI a couple weeks ago was treated with antibiot ic and now off x 3 days with great joint and body pain Encounter Diagnosis: Left foot pain, BMI 32.0-32.9,adult, Nonsmoker, Pain in unspecified joint, History of UTI, Cystocele with uterine prolapse, Carnitine deficiency [facility] Office Visit On: 16-Nov-2017 14:58 Encounter Reason: UTI - The urinary symptoms are described as painful urination, frequency, urgency, flank pain, burning and incontinence. The symptoms have been occurring for 2 weeks. The symptoms have been associated w End: 16-Nov-2017 15:24 ith low back pain. Note for Infection: Symptoms have been going on for about 2 weeks with burning with urination, hesitancy, incontinence, odor, back pain, and right sided back pain No blood in urine , vaginal itching or discharge, fever or chills. Went to the infusion center today and told them my symptoms-they dipped my urine and it showed positive for UTI and they told me to come over here Drinks a lot of fluids 8-10 glasses a day. Encounter Diagnosis: BMI 32.0-32.9,adult, Nonsmoker, UTI symptoms, Urinary tract infection in female, Urinary incontinence [facility] Phone Encounter On: 16-Nov-2017 10:15 Encounter Diagnosis: Urinary incontinence, Dysuria End: 16-Nov-2017 10:18 [facility] Phone Encounter On: 23-Dec-2016 10:34 Encounter Diagnosis: Cough End: 23-Dec-2016 10:38 [facility] Office Visit On: 18-Dec-2016 12:52 Encounter Reason: Follow up acute care visit - The patient does not feel well. The medical issues the patient is following up for include URI. Note for Follow up acute care visit: cough all night long was on antibiotic, End: 18-Dec-2016 13:41 [ADDITIONAL REASON] Cough - Note for Cough : coughing at night and all day Encounter Diagnosis: Cough, Sinusitis, bacterial, BMI 32.0-32.9,adult, Impacted cerumen of right ear, Candidiasis, mouth [facility] Office Visit On: 01-Dec-2016 11:02 Encounter Reason: Cough - Symptoms include cough and sore throat. The cough is described as dry. Cough onset was 7 day(s) ago. The cough occurs constantly. The episodes last for 7 days. Symptoms are described as moderate End: 01-Dec-2016 15:13 in severity. Symptoms are exacerbated by lying down. Associated symptoms include headache. Current treatment includes antihistamines. By report there is good compliance with treatment and poor symptom control. Previous presentation included a cough and a sore throat.Encounter Diagnosis: BMI 32.0-32.9,adult, Cough, Nonsmoker, Sinus pressure, Sinusitis, bacterial, Allergic rhinitis, mild, Impacted cerumen of right ear [facility] Office Visit On: 19-May-2016 7:31 Encounter Reason: Hypertension - The last clinic visit was 2 week(s) ago. Management changes made at the last visit include adding Norvasc and stopping Suldinac weaning. Symptoms include dizziness (more lightedness vs di End: 19-May-2016 12:38 zzy) and shortness of breath. Recent blood pressure has been mostly < 120/80. The patient describes this as moderate in severity (150-160/90's) and improving. First diagnosis of hypertension was 1 ye ar(s) ago. Previous presentation included an elevated blood pressure during the examination, confusion (cloudiness) and dizziness (lightheaded).Encounter Diagnosis: Hypertension, Nonsmoker, BMI 32.0-32.9,adult, Need for pneumococcal vaccine (Renamed from Need for pneumococcal vaccination) [facility] Office Visit On: 12-May-2016 12:19 Encounter Reason: Nurse procedure visit - The symptoms have been associated with other (flu shot).Encounter Diagnosis: PREVENTION OF FLU (V04.81) End: 12-May-2016 13:14 [facility] Office Visit On: 24-Apr-2016 13:13 Encounter Reason: Hypertension - Symptoms include dizziness (more lightedness vs dizzy) and shortness of breath. The patient describes this as moderate in severity (150-160/90's). The patient is not currently being treat End: 24-Apr-2016 13:46 ed for this problem. First diagnosis of hypertension was 1 year(s) ago. Previous presentation included an elevated blood pressure during the examination, chest pain (chest feel heavy full), shortness of breath, confusion (cloudiness) and dizziness (lightheaded).Encounter Diagnosis: BMI 32.0-32.9,adult, Nonsmoker, Hypertension [facility] Annotation/Addendum On: 24-Apr-2016 11:53 Encounter Diagnosis: Cystocele with uterine prolapse End: 24-Apr-2016 11:54 [facility] Annotation/Addendum On: 24-Apr-2016 11:36 Encounter Diagnosis: Cystocele with uterine prolapse End: 24-Apr-2016 11:38 [facility] Office Visit On: 22-Apr-2016 12:45 Encounter Reason: Well Women Exam - The patient feels well with minor complaints (yeast infections with some pain off and on--here for pap/pelvic). Pap smear: date of last pap: (02/2015). Contraceptive history: The patien End: 22-Apr-2016 15:07 t is not using any method of contraception at this time. Patient exercises none (muscle disease). The patient reports that she performs monthly self breast exam. The patient denies the use of oral contraceptives or hormone replacement therapy. Encounter Diagnosis: Well woman exam, BMI 32.0-32.9,adult, Nonsmoker, Postmenopausal (Renamed from Postmenopausal status), Screening for HPV (human papillomavirus) (Renamed from Encounter for screening for human papillomavirus (HPV)), Cystocele with uterine prolapse, Vaginitis [facility] Office Visit On: 17-Jan-2016 12:19 Encounter Reason: Eye PainEncounter Diagnosis: Facial pressure, Dry eye syndrome End: 17-Jan-2016 12:35 [facility] Office Visit On: 11-Oct-2015 11:12 Encounter Reason: UTI - The urinary symptoms are described as frequency, urgency and nocturia. The symptoms have been occurring for 3 weeks and have been increasing. The urine is described as clear. There is no history End: 11-Oct-2015 11:53 of sexual contact with a person having an STD, use of tampons, possible vaginal foreign body, douching, use of contraceptive devices, sexual assault, trauma, vulvovaginal exposure to chemical irritants, sexual contact with a person exposed to an STD, recent catheterization, new sexual partner or current catheterization. The patient denies the use of oral contraceptives, antibiotics, hormone replacemen t therapy or pyridium/uristat. Note for Infection: odor in urine no burning Odor like fish smell, and bathing twice daily. Still sexually active. Encounter Diagnosis: Vitamin D deficiency, unspecified, UTI symptoms, DEPRESSIVE DISORDER (311.0), Myalgia and myositis, Folliculitis, Insomnia (780.52) [facility] Historical Summary On: 08-May-2015 12:11 [facility] End: 08-May-2015 12:12 Office Visit On: 08-May-2015 11:22 Encounter Reason: Shingles - The shingles has been occurring in a persistent pattern for 5 weeks. The course has been decreasing. The shingles is characterized as red. Note for Shingles[facility] End: 08-May-2015 12:08 nations secondary from oxycontin for severe eye shingle pain. Encounter Diagnosis: History of shingles, Dry eye, left, Hallucinations, Neuropathy due to herpes zoster [facility] Office Visit On: 06-Mar-2015 10:23 Encounter Reason: Annual Medicare Exam - The patient had reviewed and updated the family history, medication/s, past medical history and social history. Yes the patient did have a mini mental status exam done today. The End: 06-Mar-2015 15:56 activities of daily living the patient needs help with are housework. The patient has had urinary incontinence, fallen in the past 6 months and put area rugs through house, but the patient has not had f ecal incontinence, missed or ran out of medications to soon, driven in past 6 months, gotten lost, has a medalert necklace or bracelet or put handrails in bathroom. The patient has completed the followi ng preventative measures: PAP smear, mammography and colonoscopy (2012). The patient does not have durable power of hospice rn or living will. The patient has noticed feeling helpless (feels depressed jasiel etimes). Other providers contributing to the patient's care are dish room worker (Dr Genao) and other: (Neuro Danielle Mariee at [facility]).Encounter Diagnosis: Annual Medicare Physical (V70.0), Breast cancer screening, Screening for hyperlipidemia (V77.91), Screening for deficiency anemia, DM (diabetes mellitus screen), DEPRESSIVE DISORDER (311.0) [facility] Error Encounter On: 01-Feb-2015 13:03 Encounter Reason: Annual Medicare Exam - The patient had reviewed and updated the family history, medication/s, past medical history and social history. Yes the patient did have a mini mental status exam done today. The End: 01-Feb-2015 14:57 activities of daily living the patient needs help with are housework. The patient has had fecal incontinence (due to nerve issue), driven in past 6 months and put area rugs through house, but the patien t has not had urinary incontinence, missed or ran out of medications to soon, fallen in the past 6 months, gotten lost, has a medalert necklace or bracelet or put handrails in bathroom. The patient has completed the following preventative measures: PAP smear (6 years ago), mammography (6 years ago) and colonoscopy ([address] norwood). The patient does not have durable power of hospice rn or living will. The patient has noticed staying at home rather than doing something new or going out and lack of energy. Other providers contributing to the patient's care are dish room worker and other: (neuromuscular specKraig Manriquez). [facility] Office Visit On: 29-Aug-2014 15:29 Encounter Reason: Foot Problem - This condition occurred without any known injury. The injury involved the left foot. This occurred 2 month(s) ago. Symptoms include foot pain and foot swelling. Symptoms are located in the left foot. End: 29-Aug-2014 16:08 Encounter Diagnosis: Foot symptom, Dry skin, Back pain [facility] Office Visit On: 16-May-2014 11:28 Encounter Reason: Urinary problems - The onset of the urinary problems has been sudden and they have been occurring in a persistent pattern for weeks. The course has been increasing. The urinary problems are described as End: 16-May-2014 11:50 moderate. The urinary problem is characterized as frequency and urgency. There has been associated back pain.Encounter Diagnosis: Urinary Frequency (788.41), Myalgia and myositis, unspecified (729.1) [facility] Nurse Visit On: 19-Apr-2014 11:08 Encounter Reason: Injections - The medication the patient is here to receive is other (influenza).Encounter Diagnosis: PREVENTION OF FLU (V04.81) End: 20-Apr-2014 12:39 [facility] Office Visit On: 29-Dec-2013 9:23 Encounter Reason: Follow up tests - Diagnostic tests include other (labs ). Date: (12/27/13).Encounter Diagnosis: Leg pain, Leg swelling, Back pain, SCIATICA (724.4) End: 29-Dec-2013 10:25 [facility] Office Visit On: 25-Dec-2013 13:27 Encounter Reason: Leg pain - The leg pain began suddenly and has been occurring for weeks. The symptoms have been occurring in an increasing pattern. The symptoms are described as a burning sensation and dull ache and ar End: 25-Dec-2013 14:32 e moderate to severe. The symptoms occur at rest, on exertion, when lying down and when walking. There is involvement of the lower extremities (both) and buttocks. There are no precipitating factors. T here are no relieving factors. The symptoms have been associated with paresthesias, while the symptoms have not been associated with chest pain, dizziness or fatigue. There have been no previous evaluations.Encounter Diagnosis: Back pain, Leg swelling, Leg pain [facility] Annotation/Addendum On: 16-Oct-2013 11:56 Encounter Diagnosis: Sleep apnea End: 16-Oct-2013 11:57 [facility] Office Visit On: 11-Sep-2013 14:39 Encounter Reason: Follow up for chronic medical issues - The patient feels well with minor complaints and has good energy level. Patient has been compliant with instructions. Current medication use: no side effects, comp End: 11-Sep-2013 15:16 liant with dosing regimen and considered effective by patient. Patient sleeps 6 (broken- I just had a sleep study and have to go back) hours per night. Nutrition: balanced diet. The medical issues th e patient is following up for include All identified problems below, high cholesterol and other (anemia, Depression, arthritis).Encounter Diagnosis: arthritis,unspecified (716.90), Hypercholesteremia (272.0), Myalgia and myositis, unspecified (729.1) , Carnitine deficiency [facility] Office Visit On: 23-May-2013 13:28 Encounter Reason: Flu Like Symptoms - Symptoms include fever, chills, body aches, sore throat and dry cough. Onset was sudden 1 day(s) ago. There is no known event that preceded symptom onset. The symptoms occur constant End: 23-May-2013 14:41 ly. The patient describes this as severe and worsening. Associated symptoms include wheezing (last night), fatigue and chills, while associated symptoms do not include nausea or vomiting.Encounter Diagnosis: Fever (780.60), SOB (shortness of breath) (786.05), Carnitine deficiency, PNEUMONIA, ORGANISM UNSPECIFIED (486.), Hyperventilating (786.01) [facility] Office Visit On: 19-Apr-2013 11:28 Encounter Reason: Sinusitis - The last clinic visit was 3 week(s) ago. No changes in management were made at the last visit. Symptoms include nasal congestion, upper tooth pain, forehead pain, forehead pressure, ear full End: 19-Apr-2013 12:25 ness, ear pain and headache. Onset was sudden. The symptoms occur constantly. The patient describes this as severe and worsening. Note for Sinusitis: some magdaleno - on top and behind eyes started adn i started to get dizzy - room/or me spinning Encounter Diagnosis: Sinus infection (473.9), VERTIGO (780.4), CERUMEN IMPACTION (380.4), PREVENTION OF FLU (V04.81) [facility] Office Visit On: 28-Dec-2012 10:59 Encounter Reason: Follow up for chronic medical issues - The patient feels well with minor complaints and has decreased energy level. Patient has been compliant with instructions. Current medication use: no side effects, End: 28-Dec-2012 14:17 compliant with dosing regimen and considered effective by patient. Patient sleeps 6 hours per night. Impact of disease: emotional impact-moderate. 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), FATIGUE (780.79) [facility] Nurse Visit On: 29-Nov-2012 14:41 Encounter Reason: Injections - The medication the patient is here to receive is vitamin B12 IM.Encounter Diagnosis: B12 deficiency (266.2) End: 29-Nov-2012 15:11 [facility] Nurse Visit On: 26-Oct-2012 14:27 Encounter Reason: Injections - The medication the patient is here to receive is vitamin B12 IM.Encounter Diagnosis: B12 deficiency (266.2) End: 26-Oct-2012 14:43 [facility] Nurse Visit On: 11-Oct-2012 15:12 Encounter Diagnosis: B12 deficiency (266.2) End: 11-Oct-2012 16:12 [facility] Nurse Visit On: 05-Oct-2012 10:57 Encounter Reason: Nurse procedure visit - Reason for visit: other (b 12).Encounter Diagnosis: B12 deficiency (266.2) End: 05-Oct-2012 12:16 [facility] Nurse Visit On: 27-Sep-2012 10:37 Encounter Reason: Nurse procedure visit - Reason for visit: other (b 12 injection ).Encounter Diagnosis: B12 deficiency (266.2) End: 27-Sep-2012 12:22 [facility] Annotation/Addendum On: 21-Sep-2012 14:56 Encounter Diagnosis: B12 deficiency (266.2) End: 21-Sep-2012 15:04 [facility] Office Visit On: 21-Sep-2012 10:47 Encounter Reason: Follow up for chronic medical issues - The patient feels well with no complaints, has good energy level and is sleeping well. Patient has been compliant with instructions. Current medication use: no rodrick End: 21-Sep-2012 11:28 e effects, compliant with dosing regimen and considered effective by patient. Patient sleeps 6 (broken) hours per night. Nutrition: balanced diet. 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 Patient has been compliant with instructions. Current medication use: n End: 17-Jun-2012 13:57 o side effects, compliant with dosing regimen and considered effective by patient. Patient sleeps 7 (broken) hours per night. Impact of disease: no overall impact. Nutrition: balanced diet. 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 Date: (04/06/12). Follow up visit with no current symptoms. There is no family history of breast cancer, cardiovascular disease, cystic fibrosis, End: 12-Apr-2012 12:19 Down's syndrome, mental retardation or myocardial infarction before age 55. Past medical history includes emotional problems and other (cho).Encounter Diagnosis: Unspecified vitamin D deficiency (268.9), SYMPTOM, RASH, OTH NONSPECIFIC SKIN ERUPTION (782.1) [facility] Office Visit On: 08-Apr-2012 13:13 Encounter Diagnosis: Unspecified Diagnosis End: 08-Apr-2012 15:26 [facility] Office Visit On: 05-Apr-2012 15:13 Encounter Diagnosis: DEPRESSIVE DISORDER (311.0) End: 05-Apr-2012 15:17 [facility] Office Visit On: 05-Apr-2012 14:46 Encounter Reason: Follow up tests - Diagnostic tests include other (labs). Date: (04/01/12). Follow up visit with no current symptoms. 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 Note for Follow up Meds: I am still not allowed to sweep or clean, for last 2 months on new perc End: 29-Mar-2012 15:44 ription I had IV push carnitine 3 x day , 3x per week, qoweek, It was helping for 1 week, now twice a day, 2x week and going weekly now. 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 Each episode lasts approximately 2 days. The symptoms occur 60 time(s) per minute. The paresthesias is getting worse. The patient describes End: 14-Jan-2011 11:45 the paresthesias as generalized and pins and needles. The paresthesias affects the entire body. Associated features do not include: angina, chest pain, dizziness or shortness of breath. Precipitating fa ctors include change in position. 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 The course has been unchanged. The mouth ulcers are observed in the tongue. The End: 23-Dec-2010 13:35 mouth ulcers are described as painful. The symptoms have been associated with malaise, while the symptoms have not been associated with fever, halitosis, headache, runny nose, skin rash or sore throat.Encounter Diagnosis: CANDIDIASIS, MOUTH (THRUSH) (112.0), Myalgia and myositis, unspecified (729.1) [facility] Office Visit On: 21-Jul-2010 11:29 Encounter Reason: Follow up tests - Diagnostic tests include MRI. Date: (06/17/10). Current symptoms include joint pains (neck/bilatteral shoulder ). There is no family history of breast cancer, cardiovascular disease, c End: 21-Jul-2010 12:37 ystic fibrosis, Down's syndrome, mental retardation or myocardial infarction before age 55.Encounter Diagnosis: STENOSIS, CERVICAL SPINAL (723.0), Myalgia and myositis, unspecified (729.1) [facility] Office Visit On: 11-Jun-2010 13:49 Encounter Reason: Neck pain - The course has been constant. The neck pain is described as a severe shooting (L shoulder/neck). The pain radiates to the down left arm The back pain is aggravated by sneezing, coughing, keerthi End: 11-Jun-2010 14:18 ding, twisting (I cant hardly turn my head to the right), lifting, sitting, standing and walking.Encounter Diagnosis: Neck pain (723.1) [facility] Office Visit On: 05-Jun-2010 13:19 Encounter Reason: Neck pain - The course has been worsening. The neck pain is described as a severe shooting (L shoulder/neck). The pain radiates to the down left arm The back pain is aggravated by sneezing, coughing, be End: 05-Jun-2010 14:26 nding, twisting (I cant hardly turn my head to the right), lifting, sitting, standing and walking.Encounter Diagnosis: Cervical Spasm (728.85), Cervical radiculopathy (723.4), Neck pain (723.1) [facility] Office Visit On: 07-May-2010 12:45 Encounter Reason: Follow up for chronic medical issues - The patient feels well with minor complaints, has decreased energy level and is sleeping poorly. Patient has been compliant with instructions. Current medication u End: 07-May-2010 13:27 se: no side effects, compliant with dosing regimen and considered effective by patient. Patient sleeps 6 (broken ) hours per night. Nutrition: balanced diet. 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 Past medical history includes other (myalgia). Encounter Diagnosis: Acute sinusitis, unspecified (461.9), Unspecified vitamin D deficiency (268.9), Cough (786.2), End: 12-Feb-2010 14:48 Dermatophytosis, nail (110.1), Abnormal blood chemistry (790.6), Unspecified inflammatory polyarthropathy (714.9) [facility] Office Visit On: 13-Sep-2009 10:28 Encounter Reason: Follow up, Laboratory Test Results - Date: (09/11/09). Current symptoms/reason for visit include/s Follow up visit with no current symptoms. There is a family history of breast cancer (mother) ,cardiovas End: 13-Sep-2009 11:17 cular disease (father, brother) and myocardial infarction before age 55 (2 brothers) , while there is no family history of cystic fibrosis ,Down's syndrome or mental retardation. Past medical history in cludes asthma ,elevated cholesterol and emotional problems (depression). Encounter Diagnosis: Abnormal blood chemistry (790.6), Unspecified inflammatory polyarthropathy (714.9) [facility] Office Visit On: 03-Sep-2009 10:49 Encounter Reason: Cough - The onset of the cough has been sudden. The cough is characterized as productive of mucoid sputum. The amount of sputum produced is scanty. The cough occurs all the time. The symptoms are aggrav End: 03-Sep-2009 11:21 ated by supine posture. The symptoms have been associated with dyspnea ,hoarseness and wheezing, while the symptoms have not been associated with dysphagia ,edema ,fever ,foreign body aspiration ,headac he ,hemoptysis ,long history of smoking ,night sweats ,runny nose ,sore throat ,weight loss or heartburn. the color of the sputum is yellowish. Encounter Diagnosis: RHINITIS, ALLERGIC NOS (477.9), Cough (786.2), Asthma (493.11), CANDIDIASIS, MOUTH (THRUSH) (112.0) [facility] Office Visit On: 09-Aug-2009 11:51 Encounter Reason: Sore throat - The onset of the sore throat has been acute and has been occurring in a persistent pattern for 4 days. The course has been worsening. The symptoms have been associated with difficulty in s End: 09-Aug-2009 12:34 wallowing ,ear pain (right) ,sinus pain (right side) and swelling of neck glands (right side). Encounter Diagnosis: ACUTE PHARYNGITIS (462.), Unspecified vitamin D deficiency (268.9), Asthma (493.11), DEPRESSIVE DISORDER (311.0), Acute sinusitis, unspecified (461.9) [facility] Office Visit On: 26-Jun-2009 9:13 Encounter Diagnosis: Unspecified vitamin D deficiency (268.9) End: 26-Jun-2009 9:32 [facility] Office Visit On: 25-Jun-2009 14:26 Encounter Reason: Follow up for chronic medical issues - The patient feels well with minor complaints (I have some sinus trouble) and has decreased energy level. Patient has been compliant with instructions. Current medi End: 25-Jun-2009 15:08 cation use: no side effects ,compliant with dosing regimen and considered effective by patient. Patient sleeps 4 (broken) hours per night. Nutrition: balanced diet. The medical issues the patient is fol lowing up for include All identified problems below ,asthma ,depression ,fibromyalgia and high cholesterol. Encounter Diagnosis: Allergic rhinitis due to other allergen (477.8), DEPRESSIVE DISORDER (311.0), Unspecified inflammatory polyarthropathy (714.9) [facility] Office Visit On: 06-May-2009 10:34 Encounter Reason: Cough - The onset of the cough has been 3 weeks ago. The cough is characterized as dry. The cough occurs all the time. The symptoms are not aggravated by smoking or meals. The symptoms have been associa End: 06-May-2009 12:23 princess with wheezing, while the symptoms have not been associated with headache ,night sweats or sore throat. Encounter Diagnosis: Cough (786.2), BRONCHITIS, NOT SPECIFIED ACUTE OR CHRONIC (490.) [facility] Office Visit On: 02-May-2009 16:04 Encounter Diagnosis: Unspecified Diagnosis End: 02-May-2009 16:07 [facility] Office Visit On: 20-Mar-2009 9:09 Encounter Reason: Follow up, Diagnostic Procedure Results - Diagnostic tests include CT scan and ultrasound. Date: (). Follow up visit with no current symptoms. Encounter Diagnosis: Abnormal CT of Abdomen(794.9), End: 20-Mar-2009 15:05 Abnormal blood chemistry (790.6), PREVENTION OF FLU (V04.81) [facility] Annotation/Addendum On: 14-Mar-2009 15:36 Encounter Diagnosis: Abnormal blood chemistry (790.6) End: 14-Mar-2009 15:43 [facility] Office Visit On: 14-Mar-2009 9:35 Encounter Diagnosis: Abnormal blood chemistry (790.6), Amenorrhea(626.0) End: 14-Mar-2009 12:37 [facility] Office Visit On: 13-Feb-2009 12:56 Encounter Reason: Follow up for chronic medical issues - The patient feels well with no complaints ,has good energy level and is sleeping poorly. Patient has been compliant with instructions. Current medication use: no s End: 13-Feb-2009 13:35 jodie effects. Patient sleeps 8 hours per night. Impact of disease: no overall impact. Nutrition: balanced diet. The medical issues the patient is following up for include All identified problems below ,asthma ,depression and other (arthritis, MVR). Encounter Diagnosis: DEPRESSIVE DISORDER (311.0), Hypercholesteremia (272.0), Unspecified vitamin D deficiency (268.9), Hiatal hernia (553.3), Unspecified inflammatory polyarthropathy (714.9), Foliculitis (704.8) [facility] Office Visit On: 18-Jan-2009 14:35 Encounter Reason: Sore throat - The onset of the sore throat has been gradual and has been occurring in a persistent pattern for 2 weeks. The course has been worsening. The symptoms have been associated with change in vo End: 18-Jan-2009 15:12 ice ,chills ,difficulty in swallowing ,ear pain and swelling of neck glands. Encounter Diagnosis: Acute sinusitis, unspecified (461.9), ACUTE PHARYNGITIS (462.), Foliculitis (704.8) [facility] Office Visit On: 13-Nov-2008 13:20 Encounter Reason: Well Women Exam - The patient feels well with minor complaints ,has decreased energy level and is sleeping poorly. Pap smear: history of abnormal pap (6-7 years ago (pre-cancerous, at follow up pap was End: 13-Nov-2008 14:24 normal)) and date of last pap: (6-7 years ago). Contraceptive history: The patient is not using any method of contraception at this time. Patient does not exercise. The patient's libido is absent. The p atient reports that she does not perform monthly breast self exam. The patient denies the use of oral contraceptives or hormone replacement therapy. Menstruation: Last menstrual period date: (1998). Encounter Diagnosis: Well Women Exam, No Pap (V72.31) (Mammo) (Renamed from Well Woman V72.31 (m,no p)) [facility] Annotation/Addendum On: 30-Oct-2008 10:53 Encounter Diagnosis: Unspecified vitamin D deficiency (268.9), ARTHRALGIAS 719.40 End: 30-Oct-2008 10:58 [facility] Office Visit On: 25-Oct-2008 12:41 Encounter Reason: Follow up acute care visit - The patient feeling better since last seen. Patient has been compliant with instructions. Current medication use: compliant with dosing regimen. Patient sleeps 6 hours per n End: 25-Oct-2008 13:30 ight. Nutrition: balanced diet. The medical issues the patient is following up for include depression and other (muscle pain). Encounter Diagnosis: Myalgia and myositis, unspecified (729.1), Unspecified vitamin D deficiency (268.9), DEPRESSIVE DISORDER (311.0), FAMILY HX - HEART DISEASE (V17.3), FAMILY HX - BREAST CANCER (V16.3), SCREENING FOR ANEMIA (V78.0), Screening for hyperlipidemia (V77.91), FAMILY HX - DIABETES (V18.0), Lower extremity edema (782.3) [facility] Historical Summary On: 12-Oct-2008 7:15 [facility] End: 12-Oct-2008 7:19 Office Visit On: 11-Oct-2008 12:50 Encounter Reason: Muscle pain - The onset of the pain has been acute and has been occurring in a persistent pattern for years. The course has been increasing (4 weeks). The pain is described as a severe dull aching. The End: 11-Oct-2008 14:03 pain is located over the entire body. The symptoms are aggravated by physical activity. The symptoms are relieved by Motrin. Encounter Diagnosis: ARTHRALGIAS 719.40, DEPRESSIVE DISORDER (311.0), Myalgia and myositis, unspecified (729.1), Leg cramps (729.82), Lower extremity edema (782.3) [facility] Payers MedicareAnthem/Jose R Chavez; kayli guarantor
--- OUTSIDE RECORDS SUMMARY | 2018-07-15 04:39 | XMS RPT_ITS | Continuity of Care Document ---
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 23-Dkk-950385:39 CBC W/Diff, Automated Comments: [facility] Rmasjyuxeu[address] [place], [place], [phone] SMEAR COMMENT SCANNED (Normal) Absolute Lymph 0.54 [...] 4.2-5.4 WBC 11.4 K/mm3 (Abnormal) Range: 4.4-11.0 74-Dxv-919613:39 Comprehensive Metabolic Profil Comments: [facility] Unemrzbfra8223 [address] [place], [phone] GAP 10 (Normal) Range: 5-15 CO2 23.0 [...] 126 mg/dLsuggests DIABETES MELLITUS per A.D.A. criteria. 87-Vbr-460199:39 Lipase Comments: [facility] Dwrxdsjpkn0619 [address] [facility]. [place], [place], [address] LIPASE 86 U/L (Normal) Range: 73-393 23-Apr-20167:01 Pap IG (Image Comments: Source.............Cervix;EndocervixNo. of containers..01 CYTYC Thin Prep VialPATIENT NOT FASTINGPERFORMED BY: =G [facility] [address] [id number] BY: WB [facility] Guided) [address] [id number] Note: PAPSMR (Normal) Comments: The Pap smear [...] Endocervical and/or squamous metaplasticcells (endocervical component) are present.Z01.419CyntAlek Chauhan totechnologist (ASCP) :01 Thin prep Pap Comments: Source.............Cervix;EndocervixNo. of containers..01 CYTYC Thin Prep VialPATIENT NOT FASTINGPERFORMED BY: =G [facility] [address] [id number] BY: WB [facility] ([id number]) (no STD rp [address] [id number] Information: [id number]; ov in 2 weeks testing) Age Gdln ACOG Testing AGE4 (Normal) Comments: <21 or >65 or no age provided :55 CBC W/Diff, Automated Comments: [facility] Qsyqbzfter0582 [address] [place], [place], [phone] Absolute Lymph 1.88 {X10_3/ul} (Normal) Range: 0.83-4.51 [...] 4.2-5.4 WBC 5.7 K/mm3 (Normal) Range: 4.4-11.0 82-Iqf-933660:55 Comprehensive Metabolic Profil Comments: [facility] Llwomhnlkn7440 [address] [place], [place], [address] GAP 7 (Normal) Range: 5-15 CO2 28.0 [...] 7-18 GLU 84 mg/dL (Normal) Range: 70-110 27-Psy-868666:52 CBC W/Diff, Automated Comments: [facility] Eqltxwczbw2958 [place], [address] Absolute Lymph 1.74 {X10_3/ul} (Normal) Range: 0.83-4.51 [...] 4.2-5.4 WBC 5.0 K/mm3 (Normal) Range: 4.4-11.0 :52 Comprehensive Metabolic Profil Comments: [facility] Gnsfjcrkyb9[address] [place], [phone] GAP 6 (Normal) Range: 5-15 CO2 29.0 [...] 7-18 GLU 107 mg/dL (Normal) Range: 70-110 :52 Vitamin D,25 Hydroxy Comments: [facility] Eulfrntqor89[address] [place], [id number] Vitamin D 25-OH 23.6 ng/mL (Normal) Comments: Vitamin D 25(OH) Status Range Deficiency <20 ng/mL (50nmol/L) Insuffciency 20 - 30 ng/mL (50 - 75 nmol/L) Sufficiency 30 - 100 ng/mL (75 - 250 nmol/L) Toxicity >100 ng/mL (>250 nmol/L) 08-Mcp-380615:34 URINE DELMAR CULTURE-JEROME COL Comments: PATIENT NOT FASTINGPERFORMED BY: HIREN [facility] Fqavmj[address] [place] [id number] Information: SRC:URC [id number] COUNT ([id number]) Result 1 MUG (Normal) Comments: Mixed urogenital floraGreater than 100,000 colony forming units per mL Urine Culture,Comprehensive Final report (Normal) 37-Aee-624635:21 Urinalysis, Office (01709) UA - LEUKOCYTE ESTERASE Trace (Normal) UA - NITRITE Negative (Normal) URINE UROBILINGN JEROME TIMED Normal mg/dL (Normal) UA - PROTEIN Negative mg/dL (Normal) UA - PH 6.0 (Normal) Comments: 5.5 UA - BLOOD Negative (Normal) UA - SPECIFIC GRAVITY 1.030 (Abnormal) UA - KETONES Negative mg/dL (Normal) UA - BILIRUBIN Negative (Normal) UA - GLUCOSE Negative (Normal) 25-Hje-964661:10 CBC W/Diff, Automated Comments: [facility] Vbsyiuufgc8835 [address] [place], [place], [phone] Absolute Lymph 1.44 {X10_3/ul} (Normal) Range: 0.83-4.51 [...] 4.2-5.4 WBC 4.3 K/mm3 (Abnormal) Range: 4.4-11.0 33-Jde-442179:10 Comprehensive Metabolic Profil Comments: [facility] Fkxdbcdeor6878 [place], [address] GAP 3 (Abnormal) Range: 5-15 CO2 28.0 [...] 126 mg/dLsuggests DIABETES MELLITUS per A.D.A. criteria. 67-Haj-770219:10 Vitamin D,25 Hydroxy Comments: [facility] Ben[address] [place], [place], [address] Vitamin D 25-OH 20.8 ng/mL (Normal) Comments: Vitamin D 25(OH) Status Range Deficiency <20 ng/mL (50nmol/L) Insuffciency 20 - 30 ng/mL (50 - 75 nmol/L) Sufficiency 30 - 100 ng/mL (75 - 250 nmol/L) Toxicity >100 ng/mL (>250 nmol/L) 49-Hds-344529:16 CBC W/Diff, Automated Comments: [facility] [address] [place], [place], [phone] ; ordered by another doctor Absolute Lymph [...] 4.2-5.4 WBC 5.1 K/mm3 (Normal) Range: 4.4-11.0 94-Aal-475249:16 Comprehensive Metabolic Profil Comments: [facility] Eenxdbryja[address] [place], [place], [phone] ; ordered by another doctor GAP 7 [...] 7-18 GLU 87 mg/dL (Normal) Range: 70-110 94-Een-048092:16 Vitamin D,25 Hydroxy Comments: [facility] Qjfismzwpq77[address] [place], [address] ; ordered by another doctor Vitamin D 25-OH 33.2 ng/mL (Normal) Comments: Vitamin D 25(OH) Status Range Deficiency <20 ng/mL (50nmol/L) Insuffciency 20 - 30 ng/mL (50 - 75 nmol/L) Sufficiency 30 - 100 ng/mL (75 - 250 nmol/L) Toxicity >100 ng/mL (>250 nmol/L) 5-Pvb-026103:22 CBC W/Diff, Automated Comments: [facility] Yrovygqixe55[address] [place], [address] Absolute Lymph 1.19 {X10_3/ul} (Normal) Range: 0.83-4.51 [...] 4.2-5.4 WBC 4.6 K/mm3 (Normal) Range: 4.4-11.0 3-Kez-058636:22 Comprehensive Metabolic Profil Comments: [facility] Fssshuktci[address] [place], [place], [address] GAP 3 (Abnormal) Range: 5-15 CO2 29.0 [...] 7-18 GLU 100 mg/dL (Normal) Range: 70-110 4-Yfa-312171:22 Lipid Profile Comments: [facility] Akdmmxuvjw[address] [place], [place], [phone] VLDL 16 mg/dL (Normal) Range: 5-40 LDL [...] 200-240 mg/dL Borderline >240 mg/dL High Risk 6-Kfe-124551:22 Thyroid Stim Hormone (TSH) Comments: [facility] [address] [place] [address], [address] TSH 1.39 {uIU/mL} (Normal) Range: 0.358-3.74 61-Vko-890966:30 CBC W/Diff, Automated Comments: Comments: IVT TO DRAW OFF [facility] pt arrived? YTest performed at:[facility] Dhxlwmdrai9669 [place] [address] Absolute Lymph 1.56 {X10_3/ul} (Normal) Range: 0.83-4.51 [...] 4.2-5.4 WBC 4.7 K/mm3 (Normal) Range: 4.4-11.0 53-Oks-635638:30 Comprehensive Metabolic Profil Comments: Has pt arrived? YComments: IVT TO DRAW FROM PORTTest performed at:[facility] Yqfygtvckd[address] [place], [place] [id number] GAP 8 (Normal) Range: 5-15 CO2 27.0 [...] Comments: Please note revised CREATININE reference range jxtnntikx00/22/2015. BUN 21 mg/dL (Abnormal) Range: 7-18 GLU 133 mg/dL (Abnormal) Range: 70-110 Comments: Fasting Glucose result greater than or equal to 126 mg/dLsuggests DIABETES MELLITUS per A.D.A. criteria. 07-Xit-206659:30 Vitamin D,25 Hydroxy Comments: Has pt arrived? YTest performed at:[facility] Nbhkgrirjx47[address] [place] [address] Vitamin D 25-OH 22.5 ng/mL (Normal) Comments: Vitamin D 25(OH) Status Range Deficiency <20 ng/mL (50nmol/L) Insuffciency 20 - 30 ng/mL (50 - 75 nmol/L) Sufficiency 30 - 100 ng/mL (75 - 250 nmol/L) Toxicity >100 ng/mL (>250 nmol/L) 75-Cug-689751:42 D-Dimer Quantitative (DVT/PE) Comments: Test performed at:[facility] [address] [facility] [place] [address] D-DIMER QUANT 0.54 {FEU/ug/m} (Abnormal) Range: 0.27-0.49 Comments: D-Dimer ELEVATED (>0.49): Additional studies and clinicalassessments are indicated to conclude diagnosis of:Deep Vein Thrombosis (DVT) or Pulmonary Embolism (PE)CRITICAL VALUE CALLED TO PASCVRLBI70/2 02/02 Ashish Griffin.RESULTS READ BACK BY SAME . 47-Qjv-081155:39 Lipase Comments: Test performed at:[facility] [address] [place] [address] LIPASE 96 U/L (Normal) Range: 70-290 40-Ulw-698259:22 BNP,B-Type NATRIURETIC PEPTIDE Comments: Test performed at:[facility] [address] [place] [address] B-TYPE FATOUMATA PEP 124.8 pg/mL (Abnormal) Range: 0-100 73-Mgw-931415:22 CBC W/Diff, Automated Comments: Test performed at:[facility] [address] [place] [address] Absolute Lymph 2.09 {X10_3/ul} (Normal) Range: [...] 4.2-5.4 WBC 5.9 K/mm3 (Normal) Range: 4.4-11.0 60-Nzv-409935:22 CK-MB Quantitative and Index Comments: Test performed at:[facility] [address] [place] [address] CPKMB 0.7 ng/mL (Normal) Range: 0.0-5.0 Comments: CK-MB and RI Interpretation MB Relative Index Non-AMI <or= 5 NA Indeterminate > 5 <or= 4 AMI > 5 > 4 CPK TOTAL 97 U/L (Normal) Range: 26-192 84-Ivj-156674:22 Comprehensive Metabolic Profil Comments: 'TROP' Serial specimen #1, #2, #3, or #4: 1Test performed at:[facility] In[address] [place], [place] [address], [place] [address] GAP 9 (Normal) Range: 5-15 [...] 126 mg/dLsuggests DIABETES MELLITUS per A.D.A. criteria. 55-Tla-228219:22 Troponin-I Comments: 'TROP' Serial specimen #1, #2, #3, or #4: 1Test performed at:[facility] [address] [place] [address] TROPONIN-I < 0.02 ng/mL (Normal) Comments: TROPONIN-I EXPECTED VALUES <0.05 NEGATIVE 0.06 - 0.59 AT RISK OF CA > OR = 0.60 SUGGEST CA 79-Kkg-430969:20 Urinalysis, Complete Comments: Order Date: 11/15/14How was Urine Obtained? CLEAN CATCHTest performed at:[facility] [address] [place] [address] AMORPHOUS 1+ PHOS (Normal) MUCUS, URINE 0 [...] CLARITY Sl. Cloudy (Normal) COLOR Yellow (Normal) 63-Oiw-801019:00 CBC W/Diff, Automated Comments: Comments: IVT TO DRAWTest performed at:[facility] Ktd[address]ki[address] [place] [address] Absolute Lymph 1.62 {X10_3/ul} (Normal) [...] 4.2-5.4 WBC 5.8 K/mm3 (Normal) Range: 4.4-11.0 41-Tna-703749:00 Comprehensive Metabolic Profil Comments: Comments: IVT TO DRAWTest performed at:[facility] [address]av[address]yl[address] [place], [place] [address] GAP 4 (Abnormal) Range: 5-15 CO2 27.0 [...] 126 mg/dLsuggests DIABETES MELLITUS per A.D.A. criteria. 83-Nno-552918:25 CBC W/Diff, Automated Comments: Test performed at:[facility] Nzdsnvkvfb2103 [facility] [place], [place] [address] Absolute Lymph 1.28 {X10_3/ul} (Normal) Range: 0.83-4.51 [...] 4.2-5.4 WBC 5.0 K/mm3 (Normal) Range: 4.4-11.0 :25 Comprehensive Metabolic Profil Comments: Test performed at:[facility] Kauwgfypkd6392 [facility] [place], [place] [address] GAP 4 (Abnormal) Range: 5-15 CO2 29.0 [...] 7-18 GLU 100 mg/dL (Normal) Range: 70-110 65-Qwp-240114:21 URINE DELMAR CULTURE-JEROME COL Comments: PATIENT NOT FASTINGPERFORMED BY: [facility] Hospital[facility]uogxj5401 [facility] [id number] Information: SRC:UR [id number] COUNT ([id number]) Result 1 MUG (Normal) Comments: Mixed urogenital flora1,000 Colonies/mL Urine Culture,Comprehensive Final report (Normal) 21-Nbr-508909:35 Urinalysis, Office (28714) UA - LEUKOCYTE ESTERASE Trace (Normal) UA - NITRITE Negative (Normal) URINE UROBILINGN JEROME TIMED Normal mg/dL (Normal) UA - PROTEIN Negative mg/dL (Normal) UA - PH 6.0 (Normal) Comments: 5.5 UA - BLOOD Negative (Normal) UA - SPECIFIC GRAVITY 1.030 (Abnormal) UA - KETONES Negative mg/dL (Normal) UA - BILIRUBIN Negative (Normal) UA - GLUCOSE Negative (Normal) 2-Jap-747979:15 CBCD ALC 1.51 {X10_3/ul} (Normal) Range: 0.83-4.51 [...] 4.2-5.4 WBC 5.7 K/mm3 (Normal) Range: 4.4-11.0 8-Yky-779464:15 CMP Comments: Comments: FAX RESULTS TO DR. MARRERO - SONIA DRAW GAP 4 (Abnormal) Range: 5-15 CO2 [...] or Folic Acid Supplements? N Range: 3.1-17.5 1-Gaw-199630:01 Urinalysis, Office (38874) UA - LEUKOCYTE ESTERASE Negative (Normal) UA - NITRITE Negative (Normal) URINE UROBILINGN JEROME TIMED Normal mg/dL (Normal) UA - PROTEIN Negative mg/dL (Normal) UA - PH 5 (Abnormal) UA - BLOOD Negative (Normal) UA - SPECIFIC GRAVITY 1.025 (Normal) UA - KETONES Negative mg/dL (Normal) UA - BILIRUBIN Negative (Normal) UA - GLUCOSE Negative (Normal) 6-Rgs-304145:52 CBCD ALC 1.26 {X10_3/ul} (Normal) Range: 0.83-4.51 [...] 4.2-5.4 WBC 4.2 K/mm3 (Abnormal) Range: 4.4-11.0 2-Vkp-223036:52 CMP Comments: SED RATE ADD ON BLOOD [...] 126 mg/dLsuggests DIABETES MELLITUS per A.D.A. criteria. 1-Qtp-927192:52 SED tSEDRATE 32 mm/h (Abnormal) Range: 0-30 :21 iPBE 0 mmol/L (Normal) :21 iPCO2 40.0 {mmHg} (Normal) Range: 35-45 :21 iPH 7.41 (Normal) Range: 7.35-7.45 :21 iPO2 83 {mmHG} (Normal) Range: 75-100 :21 iTCO2 26 mmol/L (Normal) :21 iTHCO3 25 mmol/L (Normal) Range: 22-26 Comments: Site = L BrachialAllens Test = POSDevice = Room AirResults To = OTHERTime Given = 915 :21 mGA4HYG 96 % (Normal) Range: 95-99 :21 iTYPE ART (Normal) 4-Svz-094300:37 Rapid Flu (35715 x 2) Comments: neg Influenza A Ag negative a and b (Normal) 5-Kha-361848:59 Influenza A&B Viral Comments: neg; PATIENT NOT FASTINGPERFORMED BY: [facility] HospitalGnvsma1893 [facility] [id number] Information: SRC:NOS [id number] Culture (51374) Viral Culture,Rapid,Influenza FLUABN (Normal) Comments: Negative:No Influenza A or B detected. B12 274 pg/mL (Normal) Comments: COMMENTS: FAX RESULTS TO AISLINN SCOTT DRAW :05 Range: 211-911 Comments: Effective 201221-Sep-20120-Orz-011773:05 CBCD Comments: COMMENTS: FAX RESULTS TO DR. MARRERO AND AISLINN BECKFORD ANC 2.8 3/uL (Normal) Range: 2.0-7.7 IG% [...] 4.2-5.4 WBC 5.1 {k/mm3} (Normal) Range: 4.4-11.0 3-Jso-149307:05 CMP Comments: COMMENTS: FAX RESULTS TO DR. MARRERO AND AISLINN BECKFORD GAP 7 (Normal) Range: 5-15 CO2 27.0 [...] 7-18 GLU 87 mg/dL (Normal) Range: 70-110 4-Ggf-650575:05 FOL 22.20 ng/mL (Abnormal) Comments: COMMENTS: FAX RESULTS TO [facility]N [facility] DRAW Range: 3.1-17.5 39-Dif-891806:08 CALCIFEDIOL (62614) Comments: PATIENT NOT FASTINGPERFORMED BY: [facility] HospitalOkmcdc9428 [facility] [id number] Information: [id number] Vitamin D, 25-Hydroxy 47.6 ng/mL (Normal) Range: 30.0-100.0 Comments: Vitamin D deficiency has been defined by the [place] of[place] and an Endocrine Society practice guideline as alevel of serum 25-OH vitamin D less than 20 ng/mL (1,2).The Endocrine Society went on to further define vitamin Dinsufficiency as a level between 21 and 29 ng/mL (2).1. IOM ([place] [employer]). 2010. Dietary reference intakes for calcium and D. [place]: The National Academies Press.2. Stacia MF, Mago [place], Meliza MAGDALENO, et al. Evaluation, treatment, and prevention of vitamin D deficiency: an Endocrine Society clinical practice guideline. JCEM. 2010; 96(7):1911-30. 6-Cic-531183:18 BILAT SCRN DIGITAL & CAD Radiology Report [...] Morales M.D.May 04 012 at 2:58:08 PM [id number] Signed GP/GP If you are the referring physician and would like to consult with theradiologist who provided this interpretation, please contact Valdo bettencourt M.D. at [phone]. If this radiologist is unavailable, youwill be directed to another radiologist to assist. If you are a patient with a question regarding this report, pleasecontactyour refe rring physician directly. Professional Interpretation Provided By: [employer], Phone , These documents contain legally protected [...] documents. Dictated on 04/26/12 1418 by Carmen ZULETA,Yannickribed on 05/04/121510 by ITS IMPORTSign by Carmen ZULETAMartín on 05/04/121511 Sign by: Carmen ZULETAMartín 06-Apr-2012 TSH 2.25 {uIU/mL} Range: 0.358-3.74 10:00 (Normal) 05-Apr-2012 VITD 21.7 ng/mL Comments: RE-COLLECT 10:08 (Abnormal) Range: 30.0-100.0 Comments: Vitamin D deficiency has been defined by the [place] of[place] and an Endocrine Society practice guideline as alevel of serum 25-OH vitamin D less than 20 ng/mL (1,2).The Endocrine Society went on to further define vitamin Dinsufficiency as a level between 21 and 29 ng/mL (2).1. IOM ([place] [employer] [place]). 2010. Dietary reference intakes for calcium and D. [place]: The National Academies Press.2. Stacia MF, Mago [place], Meliza MAGDALENO, et al. Evaluation, treatment, and prevention of vitamin D deficiency: an Endocrine Society clinical practice guideline. JCEM. 2010; 96(7): 1911-30.Performed at: [address] [id number] Director: Meeta Hickman MD, Phone: [phone] 09-Vyl-239317:44 LIPID VLDL 14 mg/dL (Normal) Range: 5-40 [...] 200-240 mg/dL Borderline >240 mg/dL High Risk 08-Luw-893504:35 Urinalysis, Office (95325) UA - BILIRUBIN Small (Normal) UA - BLOOD Negative (Normal) UA - GLUCOSE Negative (Normal) UA - KETONES Small mg/dL (Normal) Comments: trace UA - LEUKOCYTE ESTERASE Negative (Normal) UA - NITRITE Negative (Normal) UA - PH 5.0 (Normal) UA - PROTEIN Trace mg/dL (Normal) UA - SPECIFIC GRAVITY 1.025 (Normal) URINE UROBILINGN JEROME TIMED Normal mg/dL (Normal) 20-Aog-431258:07 CBC with manual diff Comments: PATIENT NOT FASTINGPERFORMED BY: [facility] HospitalPjzcbz2392 [facility] [id number] Information: [id number] (77264) Immature Grans (Abs) 0.0 {x10E3/uL} (Normal) Range: [...] 3.80-5.10 WBC 5.6 {x10E3/uL} (Normal) Range: 4.0-10.5 65-Ogp-845465:07 Metabolic Panel, Comprehensive Comments: PATIENT NOT FASTINGPERFORMED BY: [facility] Rekyfh5785 [facility] [id number] (58075) Alkaline Phosphatase, S 50 [iU]/L (Normal) Range: [...] Glucose, Serum 97 mg/dL (Normal) Range: 65-99 65-Mky-30164:00 SPINE, CERVICAL (ROUTINE) Radiology See Note Comments: [...] by ITS IMPORTSign by Lee Ann Key o n 06/18/101755 Sign by: Lee Ann Key 16-Erg-238453:49 RENAL CO2 28.0 mmol/L (Normal) Range: 21.0-32.0 [...] 0.6-1.0 GLU 102 mg/dL (Normal) Range: 70-110 19-Frz-70391:00 CERV SPINE,MIN 4 VIEWS Radiology Report See [...] as above.Degenerative changes. Dictated on 06/05/101512 by Amari WorleyxTranscribed on 06/05/101512 by CAMILOMCKESSONSign by Alena Worley on 06/09/10 0855 Sign by: Alena Worley 95-Xdt-559058:55 CALCIFEDIOL (94195) Comments: PATIENT NOT FASTINGPERFORMED BY: [facility] HospitalWpwzts1037 [facility] [id number] Information: [id number] Vitamin D, 25-Hydroxy 36.1 ng/mL (Normal) Range: 32.0-100.0 Comments: Recent studies consider the lower limit of 32.0 ng/mL to be athreshold for optimal health.Froylan BHAKTA. J Nutr. 2004;135(2):317-22. 17-Yrx-131299:53 CBCD ABSOLUTE NEUT 3.6 3/uL (Normal) Range: [...] (Normal) GLU 82 mg/dL (Normal) Range: 70-110 :33 ALDOLASE 2030 4.7 U/L (Normal) Range: 1.2-7.6 Comments: Performed at: - [address] [id number] Director: Meeta Hickman MD 40-Set-104186:33 CBCD ABSOLUTE NEUT 2.6 3/uL (Normal) Range: [...] 11.6-14.6 WBC 4.9 K/mm3 (Normal) Range: 4.4-11.0 68-Kba-946852:33 COMP METABOLIC Comments: LIVER TEST TO CL [...] 6.4-8.2 GLU 95 mg/dL (Normal) Range: 70-110 40-Ytw-542799:33 CPK TOTAL 37 U/L (Normal) Comments: LIVER TEST TO Range: 21-215 56-Wzj-376005:33 D BILI 0.12 mg/dL (Normal) Comments: LIVER TEST TO Range: 0.00-0.30 89-Wmz-657923:46 COMPLETE UA BACTERIA RARE {/hpf} (Normal) MUCUS, [...] CK-BB 0 % (Normal) Comments: Performed at: [address] [id number] Director: Meeta Hickman MD CK-MB 0 % (Normal) Range: 0-3 CK-MM 100 % (Normal) Range: 97-100 Macro I 0 % (Normal) Macro II 0 % (Normal) CPK,TOTAL,SERUM 59 U/L (Normal) Range: 24-173 :46 PTH,Intact 57 pg/mL (Normal) Range: 14-72 :46 TSH 1.06 {uIU/mL} (Normal) Range: 0.358-3.74 :29 ALDOLASE 2030 9.1 U/L (Abnormal) Range: 1.2-7.6 Comments: Performed at: [address] [id number] Director: Saul Cuadra MD :29 COMP METABOLIC [...] 126 mg/dLsuggests DIABETES MELLITUS per A.D.A. criteria. :29 CPK TOTAL 356 U/L (Abnormal) Range: 21-215 :29 [facility] . (Normal) Comments: MYOGLOBIN, SERUM 121 H ng/mL 25 - 58 TESTING PERFORMED AT [facility]. ORIGINAL REPORT ONFILE IN LAB CONTAINS ADDITIONAL TEST SITE INF ORMATION. :14 COMPLETE UA AMORPHOUS 4+ (Normal) BACTERIA 0 [...] :14 PTH,Intact 57 pg/mL (Normal) Range: 14-72 :14 TSH 1.02 {uIU/mL} (Normal) Range: 0.358-3.74 :03 ALDOLASE 2030 43.8 U/L (Abnormal) Range: 1.2-7.6 Comments: Performed at: - [address] [id number] Director: Saul Cuadra MD :03 CKMB CKRI 0.2 % (Normal) Range: 0.0-1.4 Comments: RELATIVE INDEX >1.5% IS PRESUMPTIVELY POSITIVE CPKMB 18.3 ng/mL (Abnormal) Range: 0.0-5.0 Comments: CK-MB and RI Interpretation MB Relative IndexNon-AMI <or= 5 NAIndeterminate > 5 <or= 4AMI > 5 > 4 CPK TOTAL 8135 U/L (Abnormal) Range: :03 CPK TOTAL 8135 U/L (Abnormal) Range: 10-Sep-200912:18 CBCD ABSOLUTE NEUT 2.3 3/uL (Normal) Range: [...] 4.2-5.4 WBC 4.1 K/mm3 (Abnormal) Range: 4.4-11.0 31-Snx-037843:18 COMP METABOLIC CL 104 mmol/L (Normal) Range: [...] 0.6-1.0 GLU 109 mg/dL (Normal) Range: 70-110 48-Kbn-224381:10 Rapid Strep Test, Office (20520) Rapid Strep Test, Office Negative (Normal) 1-Ene-059347:56 CALCIFEDIOL (83176) Comments: PATIENT NOT FASTINGPERFORMED BY: HIREN [facility] [id number] [place] [id number] Information: [id number] Vitamin D, 25-Hydroxy 19.7 ng/mL (Abnormal) Range: 32.0-100.0 Comments: Recent studies consider the lower limit of 32.0 ng/mL to be athreshold for optimal health.Froylan BHAKTA. J Nutr. 2004;135(2):317-22. 56-Cdt-786899:10 ABDOMEN/PELVIS WITH CONTRAST Radiology Report See Note (Normal) Comments: Exam Number: [id number] CLINICAL:58 year old woman with abnormal blood [...] surgically absent. Reported By: LOREN MALCOLM M.D. 74-Qtd-447609:15 TRANSVAGINAL NON-PREG US () Radiology Report See Note (Normal) Comments: Exam Number: [id number] CLINICAL:58-year-old female post menopausal with positive beta-hCG [...] weeks recommended. Reported By: WILLIE BOLIVAR M.D. 11-Jwm-056202:55 PELVIC (NON-PREG) () Radiology Report See Note (Normal) Comments: Exam Number: [id number] CLINICAL:58-year-old female post menopausal with positive beta-hCG [...] Comments: QUANTITATIVE hCG () TEST is *POSITIVE* : ,SERUM HCGSQUAL SeeNote m[iU]/mL (Abnormal) Range: 0-3 Nonpreg Comments: Result: POSITIVE TEST is *POSITIVE* : ,URINE HCGUQUAL SeeNote m[iU]/mL (Normal) Comments: Result: Negative :17 DELMAR CULTURE-OTHER (66227) Comments: PATIENT NOT FASTINGClinical Information: SRC:THRT ADD [id number] PERFORMED BY: [facility] [id number] Result 1 RRF (Normal) Comments: Routine respiratory gabriella Upper Respiratory Culture Final report (Normal) :03 LQD PAP [id number] Comments: CYTOLOGY INFORMATION:- CLINICAL INFORMATION: - DATE LMP/MENOPAUSE: 1998 LMP- COLLECTION VIAL: Thin 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 Endocervical and/or squamous metaplasticcells (endocervical component) are present. COMM . (Normal) DIAGN Comment (Normal) Comments: NEGATIVE FOR INTRAEPITHELIAL LESION AND MALIGNANCY. HPV RFLX Comment (Normal) Comments: The HPV DNA reflex criteria were not met with this specimenresult therefore, no HPV testing was performed. .Performed At: [address] [id number] PAPSMR Comment (Normal) Comments: The Pap smear is a screening test designed to aid in thedetection of premalignant and malignant conditions of theuterine cervix. It is not a diagnostic procedure andshould not be used as the sole means of detecting cervicalcancer. Both false-positive and false-negative reports dooccur. . PERFORM Comment (Normal) Comments: Ashwin Blanc, Designer Architect ([facility] [place] 25-Ogv-813461:52 Microscopic Examination Comments: PATIENT WAS FASTINGPERFORMED BY: [facility]6[address] [facility] [id number] Bacteria Few (Normal) Epithelial Cells (non renal) None seen {/hpf} (Normal) Range: 0 - 10 RBC None seen {/hpf} (Normal) Range: 0 - 3 WBC 0-5 {/hpf} (Normal) Range: 0 - 5 26-Pnh-570832:52 MICROALBUMIN: CREATININE RATIO Comments: PATIENT WAS FASTINGPERFORMED BY: VODECLICSaint [facility] HospitalOsyhgz0335 [facility] [id number] ([id number]) AND (02050) Creatinine, Urine 353.6 mg/dL (Abnormal) Range: 15.0-278.0 Microalb/Creat Ratio 5.4 {ug/mg_creat} (Normal) Range: 0.0-30.0 Microalbumin, Urine 19.2 ug/mL (Abnormal) Range: 0.0-17.0 78-Dbg-867987:52 URINALYSIS ([id number]) Comments: PATIENT WAS FASTINGPERFORMED BY: [facility]6[address] [facility] [id number] Appearance Clear (Normal) Bilirubin Negative (Normal) Glucose Negative (Normal) Ketones Negative (Normal) Microscopic Examination See below: (Normal) Nitrite, Urine Negative (Normal) Occult Blood Negative (Normal) pH 8.0 (Abnormal) Range: 5.0-7.5 Protein 1+ (Abnormal) Specific Freeman 1.010 (Normal) Range: 1.005-1.030 Urine-Color Yellow (Normal) Urobilinogen,Semi-Qn 0.2 mg/dL (Normal) Range: 0.0-1.9 WBC Esterase Negative (Normal) 61-Nrk-590727:52 Metabolic Panel, Comprehensive Comments: PATIENT WAS FASTINGPERFORMED BY: VODECLICRichard Ville [id number] [facility] [id number] ([id number]) A/G Ratio 1.6 (Normal) Range: 1.1-2.5 Albumin, [...] Sodium, Serum 144 mmol/L (Normal) Range: 135-145 27-Gmn-475205:52 Lipid Panel (86387) Comments: PATIENT WAS FASTINGPERFORMED BY: LabCoL[facility] HospitalKksrbk6990 [facility] [id number] Cholesterol, Total 237 mg/dL (Abnormal) Range: 100-199 [...] Cholesterol García 19 mg/dL (Normal) Range: 5-40 55-Fks-531630:52 CBC with manual diff (97131) Comments: PATIENT WAS FASTINGClinical Information: ADD DARW FEE [id number] ADD J [id number] PERFORMED BY: [facility] Nkfaen6759 [facility] [id number] Baso (Absolute) 0.1 {x10E3/uL} (Normal) Range: 0.0-0.2 [...] Name Dates Details Instructions Carnitine deficiency : Reviewed Lab Indication: Carnitine [...] Well woman exam : *Well Female Maintenance ([facility]) Indication: Well woman exam Well woman exam : Pap/Pelvic/Bimanual/Rectal/Breast Exam was done. Indication: Well woman exam Dry eye syndrome : Follow up if no improvement or if symptoms worsen Indication: Dry eye syndrome Facial pressure : Eprescribed prescriptions (G8553) Indication: Facial pressure Insomnia : Follow up in 3 months with [facility] Indication: Insomnia Vitamin D deficiency, [...] pain : Follow up on Wednesday with [facility] Indication: Back pain Carnitine deficiency : [...] : FOLLOW UP IN 3 MONTHS with [facility] Indication: Unspecified inflammatory polyarthropathy Vitamin D deficiency, [...] treatment Indication: DEPRESSIVE DISORDER (311.0) Planned Observations Vitamin B-12 (cyanocobalamin) (92234)Indication: B12 deficiency On: 16-Bjr-156427:55 Request CPK TOTAL & ISOENZYMES (42520)Indication: Pain in unspecified joint On: 24-Anx-687536:03 Request URINE DELMAR CULTURE-IDENTIFICATN (02119)Indication: Dysuria On: 74-Qme-683076:16 Request URINALYSIS (77991)Indication: Dysuria On: 65-Avw-032942:16 Request CALCIFEDIOL (47838)Indication: Postmenopausal (Renamed from Postmenopausal status) On: 2-Ahk-496851:50 Request HPV automatic (56812)Indication: Screening for HPV (human papillomavirus) (Renamed from Encounter for screening for human papillomavirus (HPV)) On: 9-Dgk-035878:49 Request Metabolic Panel, Comprehensive (19237)Indication: DM (diabetes mellitus screen) On: 56-Ndt-321290:24 Request TSH (79845)Indication: Screening for deficiency anemia On: :23 Request CBC, Platelets & Auto Diff (41423)Indication: Screening for deficiency anemia On: :23 Request Lipid Panel (91398)Indication: Screening for hyperlipidemia On: :23 Request VITAMIN B12 AND FOLATES (29181)Indication: Leg pain On: 7-Ytw-191045:27 Request HEPATIC FUNCTION PANEL (54706)Indication: Hypercholesteremia On: 28-Irv-399351:15 Request CBC with manual diff (32213)Indication: Carnitine deficiency On: 37-Zha-462418:10 Request Metabolic Panel, Comprehensive (20357)Indication: Arthritis On: 37-Jms-406264:10 Request LIPID PANEL (14163)Indication: Hypercholesteremia On: 80-Nbc-833605:10 Request CBC (AUTO) (74342)Indication: FATIGUE On: :24 Request METABOLIC PANEL, COMPREHENSIVE (94312)Indication: FATIGUE On: 8-Mgn-616572:24 Request Folate (77701)Indication: FATIGUE On: 9-Jpy-086387:24 Request VITAMIN B-12 (CYANOCOBALAMIN) (65441)Indication: FATIGUE On: 6-Gbf-144683:24 Request TSH (45801)Indication: DEPRESSIVE DISORDER (311.0) On: 18-Izh-561355:16 Request CBC with manual diff (92845)Indication: Myopathy NOS On: 1-Wqw-540952:03 Request Metabolic Panel, Comprehensive (91089)Indication: DEPRESSIVE DISORDER (311.0) On: 6-Ybs-791585:03 Request Lipid Panel (15395)Indication: Hypercholesteremia On: 7-Mcf-118146:03 Request CALCIFEDIOL (37469)Indication: Vitamin D deficiency, unspecified On: 8-Inw-976905:02 Request Renal function Panel (20065)Indication: Neck pain On: 89-Lvb-193719:14 Request CALCIFEDIOL (65292)Indication: Vitamin D deficiency, unspecified On: 26-Jun-20099:26 Request Comments: draw Beginning September 2009 TEST - SERUM QUANTITATIVE (HCG) (15096)Indication: Abnormal blood chemistry On: 46-Ymx-930967:06 Request PREGNACY TEST, URINE (98045)Indication: Abnormal blood chemistry On: :06 Request Lipid Panel (85096)Indication: Hypercholesteremia On: 72-Beq-980703:16 Request Comments: fasting Rapid Strep Test, Office (22744)Indication: Pharyngitis, acute On: 18-Csi-343870:04 Request Thin prep Pap (12182)Indication: Well woman exam On: 21-Qpe-058400:09 Request FECAL OCCULT HGB ASSAY- tubes sent home (49482)Indication: Well woman exam On: 98-Emu-795359:54 Request OCCULT BLOOD FECES SCREEN- card done in office (85114)Indication: Well woman exam On: 53-Zpu-303744:54 Request CPK TOTAL & ISOENZYMES (19290)Indication: Myalgia and myositis On: 06-Lnk-605119:37 Request CALCIFEDIOL (67062)Indication: Leg cramps On: 12-Ivo-196005:36 Request VITAMIN B-12 (CYANOCOBALAMIN) (54109)Indication: Pain in unspecified joint On: 80-Jpd-239017:35 Request PARATHORMONE (53143)Indication: Myalgia and myositis On: 23-Rwz-591798:35 Request RHEUMATOID FACTOR-QUANT (94050)Indication: Pain in unspecified joint On: 43-Spy-909783:15 Request SED RATE ERYTHROCYTE (26917)Indication: Pain in unspecified joint On: 27-Azd-854343:15 Request Planned Encounters Medical; 1 Month FU - On: 02-May-2018 14:15 [facility] Aislinn Boykin CNP, CNP, Mary E Planned Procedures Aerosol Treatment (72616)By: Teddy On: 28-Mar-2018 Intent Aislinn BINGHAM CNP, Mary E Flu Vaccine (Quadrivalent) 92245Ov: On: 28-Mar-2018 Intent Aislinn Boykin CNP, CNP, Mary E Comments: Lot #[id number]-L dltd, IMDose prefilled syringegiven by: VENANCIO Noriega reviewed and ABN signed B 12 Injection, 1000 mcg (J3420)By: On: 10-Mar-2018 Intent Pamela Bates Comments: Vitamin B12 1000 mcg injectionLot--[id number]--04/2019R Delt IMpt tolerated wellCHRISTOPHE NORIEGA Solu -Medrol Injection, 125 mg On: 03-Dec-2017 Intent (J2930)By: Alidakayli Aislinn BINGHAM CNP, Mary E Radiology - Foot - LeftBy: Teddy On: 03-Dec-2017 Intent Aislinn BINGHAM CNP, Mary E Radiology - ChestBy: Aislinn Boykin CNP On: 23-Dec-2016 Intent E Aislinn Boykin CNP Ear Irrigation (84675)By: Teddy On: 18-Dec-2016 Intent Aislinn BINGHAM CNP, Mary E Wax CurettesBy: Alidakayli Aislinn BINGHAM On: 18-Dec-2016 Intent Aislinn Boykin CNP Aerosol Treatment (95155)By: Teddy On: 18-Dec-2016 Intent Aislinn BINGHAM CNP, Mary E Wax CurettesBy: Pamela Baets On: 01-Dec-2016 Intent Ear Irrigation (03862)By: Paulo On: 01-Dec-2016 Marvin Santiago Comments: Ear Irrigation performed on:rightAmount/color removed cerumen:small OUtcome:clear and tolerated PNEUM VAC ADLT/IMUMNOSPR, SBC/INTRM On: 19-May-2016 Intent (10638)By: Alidakayli Aislinn BINGHAM CNP, Mary E Flu Vaccine (Quadrivalent) 95282Ft: On: 12-May-2016 Intent Aislinn Boykin CNP, CNP, Mary E Comments: FLUlot: [id number]:11/04site:Lt deltoidroute:IMdose:.5mlDEMICK, MA DEXA SCAN AXIAL SKELETON (47912)By: On: 22-Apr-2016 Intent Teddy BINGHAM Aislinn Aragon Swethanylakayli BINGHAM Divya Pap Smear, Medicare (Q0091)By: Teddy On: 22-Apr-2016 Intent ZACHERYAislinn Swethakathi ZACHERY Aislinn Aragon FLU VACCINE H1N1 (G9142)By: Teddy On: 06-Mar-2015 Intent Aislinn BINGHAM Swethakathi ZACHERY Divya Comments: Lot:[id number]:12/19/15Dose:0.5mLRoute:IMSite:L DltdGiven By:MIKE signed ADMINISTRATION OF H1N1 INFLUENZA On: 06-Mar-2015 Intent VIRUS VACCINE (G9141)By: Teddy BINGHAM DivyaMargo Boykin CNP Divya DEXA SCAN AXIAL SKELETON (68982)By: On: 06-Mar-2015 Intent Teddy BINGHAM DivyaMargo Boykin CNP Divya MAMMOGRAM, SCREENING, BOTH BREAST On: 06-Mar-2015 Intent (50497)By: Teddy BINGHAM DivyaMargo Boykin CNP Divya ANNUAL DEPRESSION SCREENING, 15 On: 06-Mar-2015 Intent MINUTES (G0444)By: Teddy BINGHAM DivyaMargo Boykin CNP Divya Venous Doppler - LeftBy: Teddy BINGHAM, On: 29-Aug-2014 Intent Divya Swethanylakayli BINGHAM Aislinn Aragon MARY ALICE (Ankle Brachial Index) On: 29-Aug-2014 Intent (05185)By: Aislinn Boykin CNP, CNP Divya SPECIMEN HANDLING/TRANSPORT On: 16-May-2014 Intent (47137)By: Teddy BINGHAM DivyaMargo Boykin CNP Divya Flu Vaccine (Quadrivalent) 56057Qt: On: 19-Apr-2014 Intent Teddy BINGHAM Divya Cinylakayli BINGHAM Divya Comments: lot:[id number]:dose:0.5mLRoute: IMlocation: L armgiven by: villaith ADMINISTRATION OF INFLUENZA VIRUS On: 19-Apr-2014 Intent VACCINE (G0008)By: Mckenzie Zhao Radiology - Lumbar SpineBy: Teddy On: 29-Dec-2013 Intent Aislinn BINGHAM CNP, Aislinn Aragon Toradol Injection, 30 mg (J1885)By: On: 29-Dec-2013 Intent Ciesa ZACHERY, Divya Ciesa ZACHERY, Aislinn Aragon Ear Irrigation (33257)By: Eben On: 19-Apr-2013 Intent Mayela LONDONO Comments: Ear Irrigation performed on:bilateralAmount/color removed cerumen:small amount of darkl brown waxOUtcome:clearUsed wax curettes FLU VAC, SPLIT, >3 YEARS, INTRAMUSC On: 19-Apr-2013 Intent (69552)By: Pamela Crooks LPN Comments: Lot:[id number]:6.14Amt:0.5mlRoute:IMSite: L DltdGiven By: Alejandra MULLEN signed IMMUNIZ ADMNIN, 1 VAC, SNGL/COMBO On: 19-Apr-2013 Intent (47775)By: Pamela Crooks LPN Wax CurettesBy: Mayela Treadwell DO On: 19-Apr-2013 Intent Eprescribed prescriptions (G8553)By: On: 19-Apr-2013 Intent Pamela Crooks LPN B 12 Injection, 1000 mcg (J3420)By: On: 28-Dec-2012 Intent Kassie Tellez LPN B 12 Injection, 1000 mcg (J3420)By: On: 29-Nov-2012 Intent Pattie Malagon LPN Comments: Lot: [id number]: [id number]: 1000mcg/1mlRoute: IMSite: L deltoidGiven by: CHRISTOPHE Allen B 12 Injection, 1000 mcg (J3420)By: On: 26-Oct-2012 Intent Jina Gomes LPN Comments: Lot #[id number]-28/14Site-right deltoidDose-1 mlgiven by: Rishabh Gomes LPN B 12 Injection, 1000 mcg (J3420)By: On: 11-Oct-2012 Intent Deedee Cantrell Comments: lot: [id number]:06/03site/route: L deltoid/IMamt: 1ccVIS signed when applicableANDIE Mark B 12 Injection, 1000 mcg (J3420)By: On: 05-Oct-2012 Intent Teddy BINGHAM Aislinn Leonard CNP B 12 Injection, 1000 mcg (J3420)By: On: 27-Sep-2012 Intent Valencia Renee Comments: Lot:[id number]:06/03Dose:1mlRoute:IMSite:l armGiven By:BRYNN signed IMMUNIZ ADMNIN, 1 VAC, SNGL/COMBO On: 29-Mar-2012 Intent (82687)By: Aislinn Boykin CNP Comments: lot # [id number]- 12/18/1228qxvr-JKMUndqnk-ZGenjp- 0.5 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 ZACHERY Aislinn Aragon MAMMOGRAM, SCREENING, BOTH BREASTS On: 29-Mar-2012 Intent (02104)By: Aislinn Boykin CNPnylakayli BINGHAM Divya FLU VAC, SPLIT, >3 YEARS, INTRAMUSC On: 29-Mar-2012 Intent (43000)By: Aislinn Boykin CNP, CNP Divya MRI -Cervical Spine (IV Contrast On: 11-Jun-2010 Intent Needed)By: Teddy BINGHAM DivyaMargo Boykin CNP Divya Radiology - Cervical SpineBy: Eben On: 05-Jun-2010 Intent Mayela LONDONO Aerosol Treatment (39960)By: Teddy On: 03-Sep-2009 Intent ZACHERY Divya Cikathi ZACHERY Aislinn Aragon Pulse Oximetry (36377)By: Teddy BINGHAM, On: 06-May-2009 Intent Aislinn Aragon Swethakathi ZACHERY Aislinn Aragon Aerosol Treatment (03088)By: Teddy On: 06-May-2009 Intent ZACHERYAislinn Margo Irwinkayli ZACHERYAislinn IMMUNIZ ADMNIN, 1 VAC, SNGL/COMBO On: 20-Mar-2009 Intent (15762)By: Aislinn Boykin CNP, CNP Divya FLU VAC, SPLIT, >3 YEARS, INTRAMUSC On: 20-Mar-2009 Intent (20172)By: Aislinn Boykin CNP Comments: Lot #[id number]-left deltoidgiven by:Aislinn LEMONS CNP CT - Abdomen & Pelvis (IV Contrast On: 14-Mar-2009 Intent Needed)By: Aislinn Boykin CNP, CNP, Mary E Ultrasound - PelvisBy: Teddy BINGHAM, On: 14-Mar-2009 Intent Aislinn Leonard CNP Comments: attention adrenals and ovaries SPECIMEN HNDLNG/TRNSPRT, OFFC > LAB On: 18-Jan-2009 Intent (40059)By: Aislinn Boykin CNP, CNP, Mary E DXA, BONE DENSITY, AXIAL SKELETON On: 13-Nov-2008 Intent (40041)By: Aislinn Boykin CNP, CNP, Mary E MAMMOGRAM, SCREENING, BOTH BREASTS On: 13-Nov-2008 Intent (64125)By: Aislinn Boykin CNP, CNP, Mary E ELECTROCARDIOGRAM, COMPLETE (ECG) On: 11-Oct-2008 Intent (55318)By: Aislinn Boykin CNP, CNP, Mary E Planned Medications INJECTION, KETOROLAC TROMETHAMINE, PER 15 MG Ordered: 29-Dec-2013 Pending Aislinn Boykin CNP, CNP, Mary E INJECTION, METHYLPREDNISOLONE SODIUM SUCCINATE, UP TO 125 MG Ordered: 03-Dec-2017 Pending Aislinn Boykin CNP, CNP, Mary E Vitamin B-12 1000 MCG/ML Injection Solution Ordered: 27-Sep-2012 Pending Valencia Renee Vitamin B-12 1000 MCG/ML Injection Solution Ordered: 05-Oct-2012 Pending Aislinn Boykin CNP, CNP, Mary E Vitamin B-12 1000 MCG/ML Injection Solution Ordered: 11-Oct-2012 Pending Deedee Cantrell Vitamin B-12 1000 MCG/ML Injection Solution Ordered: 26-Oct-2012 Pending Jina Gomes LPN Vitamin B-12 1000 MCG/ML Injection Solution Ordered: 29-Nov-2012 Pending Pattie Malagon LPN Vitamin B-12 1000 MCG/ML Injection Solution Ordered: 28-Dec-2012 Pending Kassie Tellez LPN Vitamin B-12 1000 MCG/ML Injection Solution Ordered: 10-Mar-2018 Pending Pamela Bates Name Dates Details Nonsmoker : How to access health information [...] D deficiency, unspecified : DISCONTINUED - CALCIFEDIOL (79486) Indication: Vitamin D deficiency, unspecified B12 deficiency : Patient Instructions Indication: B12 deficiency Encounters Office Visit On: 28-Mar-2018 13:39 Encounter Reason: [...] of last pap: (02/2015). Contraceptive history: The [facility] End: 22-Apr-2016 15:07 t is not using [...] for Shingles: follow up ER visit from [facility] End: 08-May-2015 12:08 nations secondary from oxycontin [...] patient does not have durable power of admitted attorneys or living will. The patient has noticed feeling helpless (feels depressed jasiel etimes). Other providers contributing to the patient's care are rail technician (Dr Genao) and other: (Neuro Danielle Mariee at [facility]).Encounter Diagnosis: Annual Medicare Physical (V70.0), Breast [...] patient does not have durable power of admitted attorneys or living will. The patient has noticed staying at home rather than doing something new or going out and lack of energy. Other providers contributing to the patient's care are rail technician and other: (neuromuscular specKraig Manriquez). Comprehensive Internal [...] keep the care continum I was at [facility] yesterday Encounter Diagnosis: DEPRESSIVE DISORDER (311.0), [...]
--- OUTSIDE RECORDS SUMMARY | 2018-07-15 04:41 | XMS RPT_ITS | Continuity of Care Document ---
:1950 Author Organization [facility] Address [address] [facility] [address] [place] [address] Phone Care Team Providers Name Role Phone Teddy ZACHERYAislinn Unavailable Rashawn Garcia DO Unavailable Vaishnavi Dietz Unavailable Arlin Mondragon Unavailable Katy Reyes Unavailable Unavailable Slacar DIRECTOR OF CONTENT AND PROGRAMMING, Diamante Unavailable Unavailable Gravshell, Julia Unavailable Unavailable Unavailable Unavailable Problems Name Dates Details Abnormal blood chemistry (R79.9, 790.6) Status: Active Abnormal CT of the abdomen (R93.5, 793.6) Status: Active Acute asthma exacerbation (Renamed from Acute asthma flare) (J45.901, 493.92) Status: Active Acute sinusitis, unspecified (J01.90, 461.9) Status: Active Albuminuria (R80.9, 791.0) Comments: ok for increase protien Status: Active Allergic rhinitis due to other [...] (M54.9, 724.5) Comments: sees spine center in [facility] Status: Active BMI 32.0-32.9,adult (Z68.32, V85.32) Status: Active BMI 32.0-32.9,adult (Z68.32, V85.32) Status: Active BMI 32.0-32.9,adult (Z68.32, V85.32) Status: Active BMI 32.0-32.9,adult (Z68.32, V85.32) Status: Active BMI 33.0-33.9,adult (Z68.33, V85.33) Status: Active BMI 33.0-33.9,adult (Z68.33, V85.33) Status: Active Breast cancer screening (Z12.39, V76.10) Status: Active Calcium kidney stone (N20.0, 592.0) Status: Active 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, 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) Comments: Sees Dr Cedeno at [facility] labtakes daily po carnitine and4 times [...] Comments: suspect infection vs other Status: Active Hypocalcemia (E83.51, 275.41) Comments: adjusted to be 8.5, with factroing in albumin Status: Active Infected sebaceous cyst (L72.3, 706.2) Comments: resolved with previous i&D and antibiotic will watch if returns will send to Surgeon to get the cyst out Status: Active Insomnia (G47.00, 780.52) Status: Active Left foot pain (M79.672, 729.5) Status: Active Leg pain (M79.606, 729.5) Comments: left, xray normal Status: Active Leg swelling (M79.89, 729.81) Comments: get btnp, has been getting1 liter fluid etra on and Fridays x [address] Steinberg Status: Active Lower extremity edema (R60.0, 782.3) Comments: will try lasix again x 3 days Status: Active Malnutrition (E46, 263.9) Comments: albumin 2.7 to 3.1 Status: Active MITRAL VALVE DISORDER, NOS (424.0) Status: Active Myalgia and myositis (729.1) Comments: seeing Dr. Manriquez at [facility] getting carotene weekly IV twice a day [...] Status: Active Nonsmoker (Z78.9, V49.89) Status: Active Non-smoker (Z78.9, V49.89) Status: Active Pain in unspecified [...] Comments: [facility] Status: Active Urinary incontinence (R32, 788.30) Status: [...] days Quantity: 1 {Inhaler} Refills: 3 Ordered:18-Dec-2016 Teddy BINGHAM, Aislinn Boo CNP, Aislinn Aragon Start : 18-Dec-2016 Active Carnitine infusions Active [...] {Bottle} Refills: 0 Ordered:11-Oct-2015 Teddy BINGHAM, Aislinn Boo CNP, Aislinn Aragon Start : 11-Oct-2015 Active Medrol 4 MG Oral Tablet Therapy Pack 1 (one) Tablet TAD for 0 days Quantity: 1 {Package} Refills: 0 Ordered:28-Mar-2018 Teddy BINGHAM, Aislinn Boo CNP, Aislinn Aragon Start : 28-Mar-2018 Active Comments:with [...] Quantity: 30 {Tablet} Refills: 3 Ordered:15-Apr-2018 Teddy SHANK SORTER, Aislinn Boo CNP, Aislinn Aragon Start : 15-Apr-2018 Active ProAir HFA 108 (90 Base) MCG/ACT Inhalation Aerosol Solution 2 (two) Puff Puff tid prn for 0 days Quantity: 1 {Inhaler} Refills: 3 Ordered:10-Mar-2018 Katy Reyes Start : 10-Mar-2018 Active PROzac 20 MG Oral Capsule 1 Capsule qd for 0 days Quantity: 90 {Capsule} Refills: 3 Ordered:28-Mar-2018 Teddy SHANK SORTER, Aislinn Boo CNP, Aislinn Aragon Start : 28-Mar-2018 Active Sulindac 150 MG Oral Tablet 1 Tablet qod for 0 days Quantity: 30 {Tablet} Refills: 0 Ordered:19-May-2016 Teddy SHANK SORTER, Aislinn Boo CNP, Aislinn Aragon Start : 19-May-2016 Active Comments:oredered by Veleniki TRAZODONE HCL, 50MG (Oral Tablet) 1 Tablet qhs / HS PRN for 0 days Quantity: 30 {Tablet} Refills: 11 Ordered:11-Oct-2015 Teddy BINGHAM, Aislinn Boo CNP, Aislinn Aragon Start : 11-Oct-2015 Active Comments:ordered by Batista Ultram 50 MG Oral Tablet 1 (one) Tablet daily prn for pain for 0 days Quantity: 30 {Tablet} Refills: 0 Ordered:02-May-2018 Teddy SHANK SORTER, Aislinn Boo CNP, Aislinn Aragon Start : [...] days Quantity: 20 {Tablet_ER_24HR} Refills: 0 Ordered:09-Aug-2009 Swethanylakayli BINGHAM Aislinn Henleykayli BINGHAM Aislinn Aragon Start : 09-Aug-2009 End : 19-Aug-2009 Inactive Cefdinir 300 MG Oral Capsule 1 (one) Capsule bid for 7 days Quantity: 14 {Capsule} Refills: 0 Ordered:08-Feb-2018 Swethanylakayli BINGHAM Aislinn Henleykayli BINGHAM Aislinn Aragon Start : 08-Feb-2018 End : 15-Feb-2018 Inactive CIPRO, 500MG (Oral Tablet) 1 (one) Tablet bid for 7 days Quantity: 14 {Tablet} Refills: 0 Ordered:16-May-2014 Teddy BINGHAM Aislinn Henleykayli BINGHAM Aislinn Aragon Start : 16-May-2014 End : 23-May-2014 Inactive Ciprofloxacin HCl 500 MG Oral Tablet 1 (one) Tablet PO BID x 10 days for 10 days Quantity: 20 {Tablet} Refills: 0 Ordered:16-Nov-2017 Pamela Bates Start : 16-Nov-2017 End : 26-Nov-2017 Inactive Clotrimazole 10 MG Mouth/Throat Jess 1 (one) Jess 5x daily for 10 days Quantity: 50 {Jess} Refills: 0 Ordered:18-Dec-2016 Teddy BINGHAM Aislinn Henleykayli BINGHAM Aislinn Aragon Start : 18-Dec-2016 End : 28-Dec-2016 Inactive Diflucan 150 MG Oral Tablet 1 (one) Tablet Tablet x1 repeat in 72 hrs for 0 days Quantity: 2 {Tablet} Refills: 0 Ordered:01-Dec-2016 Pamela Bates Start : 22-Apr-2016 End : 01-Dec-2016 Inactive Doxycycline Monohydrate 100 MG Oral Capsule 1 (one) Capsule bid for 10 days Quantity: 20 {Capsule} Refills: 0 Ordered:18-Dec-2016 Teddy ZACHERY Aislinn Boo ZACHERY Aislinn Aragon Start : 18-Dec-2016 End : 28-Dec-2016 Inactive ERGOCALCIFEROL, 02254UPGP (Oral Capsule) 1 (one) Capsule twice weekly [...] Start : 25-Dec-2013 End : 30-Dec-2013 Inactive Lasix 20 MG Oral Tablet 1 (one) Tablet daily x 2 days for 2 days Quantity: 10 {Tablet} Refills: 0 Ordered:11-May-2018 Aislinn Espinal CNP, CNP, Mary E Start : 11-May-2018 End : 13-May-2018 Inactive Comments:Ok to dispense 10 pills LEVOCARNITINE, 330MG (Oral Tablet) 3 (three) Tablet four times daily for 360 days Refills: 0 Ordered:29-Mar-2012 Kassie Tellez LPN Start : 14-Jan-2011 End : 09-Jan-2012 Inactive METRONIDAZOLE, 500MG (Oral Tablet) 1 (one) Tablet bid for 7 days Quantity: 14 {Tablet} Refills: 0 Ordered:11-Oct-2015 Aislinn Espinal CNP, CNP, Aislinn Aragon Start : 11-Oct-2015 End : 18-Oct-2015 Inactive [...] 3 days then 1 tab tid NYSTATIN, [id number]/ML (Mouth/Throat Suspension) 4 Milliliter qid for 7 days Quantity: 1 {qs} Refills: 0 Ordered:23-Dec-2010 Teddy SHANK SORTER, Aislinn Boo SHANK SORTER, Divya Start : 23-Dec-2010 End : 30-Dec-2010 [...] End : 21-Jul-2010 Inactive Comments:twenty Vitamin D 1 tab once weekly Inactive Vitamin D 1.25mg softgel 1 cap once weekly Inactive ANTIVERT, 25MG (Oral Tablet) 1 Tablet q 8 hr prn for 0 days Quantity: 30 {Tablet} Refills: 0 Ordered:01-Dec-2016 Paulo Pamela Start : 19-Apr-2013 End : 01-Dec-2016 Discontinued [...] prn for 0 days Refills: 0 Ordered:25-Oct-2008 Teddy BINGHAM Aislinn Boo CNP, Aislinn Aragon Start : 25-Oct-2008 End : 25-Oct-2008 Discontinued [...] 11-Apr-2012 End : 11-Oct-2015 Discontinued VITAMIN D, 91877HDVC (Oral Capsule) 1 (one) Capsule twice weekly for 0 days Quantity: 24 {Capsule} Refills: 0 Ordered:16-Oct-2009 Kassie Tellez LPN Start : 16-Oct-2009 End : 07-May-2010 Discontinued Comments:This order discontinued per [facility]. Vitamin D3 5000 UNIT Oral Tablet 1 [...] (M54.5, 724.2) Status: Inactive as of 29-Mar-2012 Rash and other nonspecific skin eruption (R21, 782.1) Comments: think scratches self at hs, Status: Inactive as of 17-Jun-2012 Screening for deficiency anemia (Z13.0, V78.1) Status: Inactive as of 12-Dec-2008 Procedures Procedure Dates Details COLONOSCOPY, NOS Completed Comments: 2004 Date Value Details 12-May-2018 Venous Duplex Lower Extremity Result: Comments: See Note; NOTES: [facility] Cardiovascular Services [address] [place] [address] Venous Duplex US, Unilateral 05/10/18 1256 MR#: [id number] Acct: [id number] Name: HANNA MANE Rep #: [id number] : 1950 67 From: Anthony Washburn MD Attending Dr: Aislinn Espinal NP Status: REG CLI Ordering Dr: Aislinn Espinal CLINICAL ASSOC-C Date: 05/10/18 Location: [facility] Sex: F C Admitted: Reaso n For Study: pain RIGHT LEFT CFV is compressible, spontaneous, phasic, GSV is normal. competent and demonstrates normal CFV is compressible, spontaneous, phasic, augmentation. competent, and demonstrat es normal Procedure augmentation. Exam performed in department. FV is compressible, spontaneous, phasic, The exam was diagnostic. competent and demonstrates normal A preliminary report was called and/or faxed augmentation. to Aislinn Espinal. POP V is compressible, spontaneous, phasic, competent and demonstrates normal augmentation. T/P Trunk is compressible. PTV is compressible. LT PerV is compressible. & amp;#60;> Interpretation Summary Deep veins of the left lower extremity are patent and compressible segmentally. There is no evidence of left lower extremity deep vein thrombosis. Valvular comp etence appears intact within the proximal deep venous system on the left . The left greater saphenous vein appears patent and compressible segmentally. Ordering Physician: Aislinn Espinal Performed By: Rakesh Guerrero RVT 05/12/18 1 341 Date Anthony Washburn MD CC: Aislinn Espinal NP Date Dictated: 05/10/18 1256 Date Transcribed: 05/12/18 1341 Demonstrator Sales: Signed 25-Jan-2018 Operative Report Result: Comments: See Note; NOTES: [facility] Medical Records Department [address] [place] [address] Operative Report 01/25/18 1254 MR#: [id number] Acct: [id number] Name: HANNA CHAVEZ Rep #: [id number] : 1950 67 From: Vaishnavi Dietz MD PCP: Aislinn Espinal NP Status: [facility] Y Location: [place] [address] Problem List (1) Urinary tract infection Status: Acute Report of Operation Date of Procedure: 01/25/18 Pre-Operative Diagnosis: urinary tract infection, pelvic pain Post-Operative Diagnosis: same and rectocele Surgery/Procedure Performed:: cystoscopy and pelvic exam under anesthesi a Description of Surgical Findings:: normal cystoscopy. very short anterior vaginal wall. grade 3 rectocele. atrophy. paper sheeter: Vaishnavi Dietz Type of Anesthesia:: MAC Specimen's [...] MD> Date Vaishnavi Dietz MD CC: Aislinn Espinal CLINICAL ASSOC; Vaishnavi Dietz MD Signed 25-Jan-2018 Discharge Instruction Result: Comments: See Note; NOTES: [facility] Medical Records Department [address] [place] [address] Instructions for Home/Discharge Instructions 01/25/18 1228 MR#: [id number] Acct: [id number] Name: HANNA CHAVEZ Rep #: [id number] : 1950 67 From: Vaishnavi Dietz MD PCP: Aislinn Espinal NP Status: REG [facility] Discharge Diet: No Restrictions Discharge Activity: Return [...] DAILY 05/23/13 Triamcinolone Acetonide [Nasacort Aq Nasal [place]] 2 spray NASAL DAILY PRN 05/23/13 Levocarnitine [...] PRN PRN 01/19/18 Primary Care Physician: Aislinn Espinal [Primary Care Provider] - Test Results: Test results from this vis it will be discussed in further detail at your follow-up appointment, if applicable. Please Follow Up With: Vaishnavi Dietz MD - 1-2 weeks 01/25/18 1230 <Electronically signed by Vaishnavi viveros MD> Date Vaishnavi Dietz MD CC: Aislinn Espinal NP 17-Jan-2018 Kidney and Bladder Result: Comments: See Note; NOTES: [facility] Imaging Services [address] [place] [address] Kidney and Bladder MR#: [id number] Acct: [id number] Name: HANNA CHAVEZ Rep #: [id number] DO B: 1950 F 67 From: Tee Weems PCP: Aislinn Espinal NP Status: REG CLI Study: Kidney and Bladder Date of Exam: 01/17/18 Exam# [id number] Ordering Dr: Vaishnavi Dietz MD STUDY: RENAL [...] EDT , Service support , CC: Aislinn Espinal NP; Vaishnavi Dietz MD Demonstrator Sales: Signed 29-Dec-2017 Transvaginal Non- Result: Comments: See Note; NOTES: [facility] Imaging Services [address] [place] [address] Transvaginal Non- MR#: [id number] Acct: [id number] Name: HANNA CHAVEZ Rep #: [id number] : 1950 F 67 From: Jacky Hanson MD PCP: Aislinn Espinal NP Status: REG CLI Study: Transvaginal Non- Date of Exam: 12/29/17 Exam# [id number] Ordering Dr: Vaishnavi Dietz MD STUDY: U [...] , Ser vice support , CC: Aislinn Espinal NP; Vaishnavi Dietz MD Demonstrator Sales: Signed 09-Dec-2017 Downtime Report Result: Comments: See Note; NOTES: [facility] Medical Records Department [address] [place] [address] Downtime Report MR#: [id number] Acct: [id number] Name: HANNA CHAVEZ Rep #: [id number] : 1950 67 From: Elmer Moreno PCP: Teddy LUGO, Aislinn Status: REG CLI This patient was seen during an EMR downtime November 22, 2017 - November 29, 2017. This patient may have a combination of paper and electronic documentation or all paper documentation. All documentation is viewable within the e-chart portion of [employer] for each patient visit. 09-Dec-2017 Downtime Report Result: Comments: See Note; NOTES: [facility] Medical Records Department [address] [place] [address] Downtime Report MR#: [id number] Acct: [id number] Name: HANNA CHAVEZ Rep #: [id number] : 1950 67 From: Elmer Moreno PCP: Aislinn Espinal NP Status: REG CLI This patient was seen during an EMR downtime November 22, 2017 - November 29, 2017. This patient may have a combination of paper and electronic documentation or all paper documentation. All documentation is viewable within the e-chart portion of [employer] for each patient visit. 03-Dec-2017 Foot min 3 Views Result: Comments: See Note; NOTES: [facility] Imaging Services [address] [place] [address] Foot min 3 Views MR#: [id number] Acct: [id number] Name: HANNA CHAVEZ Rep #: [id number] : 1950 F 67 From: Yahir Wolfe MD PCP: Aislinn Espinal NP Status: REG CLI Study: Foot min 3 Views Date of Exam: 12/03/17 Exam# [id number] Ordering Dr: Aislinn Espinal STUDY: X-RAY - LEFT FOOT CLINIC AL: [...] EDT , Service support , CC: Aislinn Espinal NP Demonstrator Sales: Signed 23-Dec-2016 Chest PA and Lateral Result: Comments: See Note; NOTES: [facility] Imaging Services [address] [place] [address] Verdana 4d Chest PA and Lateral MR#: [id number] Acct: [id number] Name: HANNA CHAVEZ Rep #: [id number] : 1950 F 66 From: Juan Woody MD PCP: Aislinn Espinal Status: REG CLI Study: Chest PA and Lateral Date of Exam: 12/23/16 Exam# [id number] Ordering Dr: Danielle Manriquez MD STUDY: X-RAY [...] , Service support , CC: Aislinn Manriquez Demonstrator Sales: Signed 05-Jul-2016 Discharge Instruction Result: Comments: See Note; NOTES: [facility] Medical Records Department [address] [place] [address] Discharge Instruction 07/05/162116 MR#: [id number] Acct: [id number] Name: JOSH CHAVEZ Alanis Rep #: [id number] : 1950 66 From: Sarabjit Salinas MD PCP: Aislinn Espinal Status: REG ER ED Disposition - Plan for ED Patient: Disposition: Home or Assisted Living Chief Complaint: GI Bleed Inst ructions: ED Nausea Vomiting Referrals: Aislinn Espinal [Primary Care Provider] - 1- 2 Days if not improving What to do if you have Problems For any increased pain, shortness of breath, bleeding, nausea o r vomiting, chest pain, or any unexpected problems, contact your Primary Care Provider. Call Doctors Registry ([phone]) or report to the closest Emergency Room. Call 911 if necessary. 07/05/16 <Electronically signed by Sarabjit Salinas MD> Date Sarabjit Salinas MD Cosigner Signature (If Indicated): Date CC: Aislinn Espinal 05-Jul-2016 Emergency Department Summary Result: Comments: See Note; NOTES: [facility] Medical Records Department [address] [place] [address] Emergency Department Summary 07/05/162113 MR#: [id number] Acct: [id number] Name: HANNA CHAVEZ Alanis Rep #: [id number] : 1950 66 From: Sarabjit Salinas MD PCP: Aislinn Espinal Status: REG ER - ER Visit Summary [...] ED Patient: Chief Complaint: GI Bleed Referrals: Aislinn Espinal [Primary Care Provider] - What to do if you have Prob lems For any increased pain, shortness of breath, bleeding, nausea or vomiting, chest pain, or any unexpected problems, contact your Primary Care Provider. Call Doctors Registry ([phone]) or repor t to the closest Emergency Room. Call 911 if necessary. 07/05/162116 <Electronically signed by Sarabjit Salinas MD> Date Sarabjit Salinas MD Cos igner Signature (If Indicated): Date CC: Aislinn Espinal 16-Apr-2015 Emergency Department Summary Result: Comments: See Note; NOTES: [facility] Medical Records Department [address] [place] [address] Emergency Department Summary MR#: [id number] Acct: [id number] Name: HANNA CHAVEZ Rep #: [id number] : 1950 64 From: Breanna Ryan MD [...] was at 3:00 a.m. She comes in [facility] for pain control. PHYSICAL EXAMINATION: VITAL SIGNS: [...] Herpes zoster pain. Breanna Ryan MD T: [facility] JOB: [id number] 04/16 2563 <Electronically signed by Breanna Ryan MD> Date Breanna Ryan MD Cosigner Signature (If Indicated): Date _ CC: Carla Hughes MD Date Dictated: 04/15/15816 Date Transcribed: 04/15/15816 Demonstrator Sales: Signed 15-Apr-2015 Discharge Instruction Result: Comments: See Note; NOTES: [facility] Medical Records Department [address] [facility] [address] Discharge Instruction 04/15/15808 MR#: [id number] Acct: [id number] Name: HANNA CHAVEZ Rep #: [id number] : 1950 64 From: Breanna Ryan MD [...] problems, contact your doctor. Call [facility] ([phone]) or report to the closest Emergency Room. Call 911 if necessary. 04/15/15817 <Electronically signed by Breanna Ryan MD> Date Breanna Ryan MD Cosigner Signature (If Indicated): Date CC: Carla Hughes MD 03-Dec-2014 Emergency Department Summary Result: Comments: See Note; NOTES: [facility] Medical Records Department [address] [place] [address] Emergency Department Summary MR#: [id number] Acct: [id number] Name: HANNA CHAVEZ Rep #: [id number] : 1950 64 From: Shruthi Savage DO [...] Hughes. The patient has a specialist at [facility] that treats her primary carnitine defici [...] unremarkable. EMERGENCY DEPARTMENT COURSE: EKG obtained on dashawn finch showed a sinus rhythm with a rate [...] in stable condition. Shruthi Savage DO T: [facility] JOB: [id number] 12/03/14 2329 <Electronically signed by Shruthi Savage DO> Date Thalia Savage DO CC: Carla Hughes MD Date Dictated: 11/15/141931 Date Transcribed: 11/15/141931 Demonstrator Sales: Signed 16-Nov-2014 12 Lead Electrocardiogram Result: Comments: See Note; NOTES: [facility] Cardiovascular Services [address] [place] [address] 12 Lead EKG 11/15/141625 MR#: [id number] Acct: [id number] Name: HANNA CHAVEZ Rep #: [id number] : 1950 64 From: Lamont Lucas MD [...] l ECG Confirmed by LAMONT LUCAS ([id number]), video editor LAKIA MORENO ([id number]) on 11/16/2014 10:58:54 AM Referred By: JERE Confirmed By:LAMONT LUCAS 11/16/14 1059 Date Lamont Lucas MD CC: Carla Hughes MD Date Dictated: 11/15/141625 Date Transcribed: 11/15/141625 Demonstrator Sales: Signed 15-Nov-2014 Discharge Instruction Result: Comments: See Note; NOTES: [facility] Medical Records Department [address] [place] [address] Discharge Instruction 11/15/141924 MR#: [id number] Acct: [id number] Name: HANNA CHAVEZ Rep #: [id number] : 1950 64 From: Shruthi Savage DO [...] problems, contact your doctor. Call [facility] ([phone]) or report to the [facility] Emergency Room. Call 911 if necessary. 11/15/141927 <Electronically signed by Shruthi Savage DO> Date Shruthi Savage DO Co signer Signature (If Indicated): Date CC: Carla Hughes MD 15-Nov-2014 CTA Chest W/WO Contrast Result: Comments: See Note; NOTES: [facility] Imaging Services [address] [place] [address] CAT Scan Report MR#: [id number] Acct: [id number] Name: HANNA CHAVEZ Rep #: [id number] : 1950 F 64 From: Chele Puckett MD PCP: Carla Hughes MD Status: REG ER Study: CTA Chest W/WO Contrast Date of Exam: 11/15/14 Exam# [id number] Ordering Dr: Shruthi Savage DO STUDY: CTA [...] MD at 19:05 EDT , Service support [phone], CC: Carla Hughes MD; Shruthi Savage DO Demonstrator Sales: Signed 15-Nov-2014 Chest PA and Lateral Result: Comments: See Note; NOTES: [facility] Imaging Services [address] [place] [address] Radiology Report MR#: [id number] Acct: [id number] Name: HANNA CHAVEZ Rep #: [id number] : 1950 F 64 From: Martín Morales MD PCP: Carla Hughes MD Status: DEP ER Study: Chest PA and Lateral Date of Exam: 11/15/14 Exam# [id number] Ordering Dr: Shruthi Savage DO STUDY: X- [...] Martín Morales MD at 9:28 EDT Tel [phone], Service support [phone], 0062 RAD/Chest PA and Lateral IMPRESSION: No acute abnormality is seen. Electronically Signed: Martín Morales MD at 9:28 EDT Tel [phone], Service support [phone], CC: Carla Hughes MD; Shruthi Savage DO Demonstrator Sales: Signed 29-Dec-2013 L/S Spine Min 4 Views Result: Comments: See Note; NOTES: [facility] Imaging Services [address] [place] [address] Radiology Report MR#: [id number] Acct: [id number] Name: HANNA CHAVEZ Rep #: [id number] : 1950 F 63 From: Nirmal Watts PCP: Carla Hughes MD Status: REG CLI Study: L/S Spine Min 4 Views Date of Exam: 12/29/13 Exam# [id number] Ordering Dr: Carla Hughes MD STUDY: X-RAY [...] No fracture. Electronical ly Signed: Nirmal Watts at 23:38 EDT , Service support [phone], CC: Carla Hughes MD Demonstrator Sales: Signed Immunization Name Dates Details Influenza (3 years and up) on: 20-Mar-2009 Comments: Lot #[id number] deltoidgiven by:CDH Family History Unknown Family Member Name Dates Details No Known Family History Status: Active Social History Name Dates Details Tobacco use: Never smoker. Status: Active Smoking Status Name Dates Details Never smoker Vital Signs Date Test Result Details :21 Temperature 97.6 f Comments: Method: Temporal Pulse 60 /min Comments: Pattern: Regular Respiration Rate 16 /min Comments: Pattern: Unlabored O2 SAT 98 % Comments: Room air BP Systolic 138 mm[Hg] Comments: Patient Position: Sitting; Cuff Location: Left Arm; Cuff Size: Standard BP Diastolic 88 mm[Hg] Comments: Patient Position: Sitting; Cuff Location: Left Arm; Cuff Size: Standard Weight 196 lb Height 64 in Body Mass Index Calculated 33.64 kg/m2 Body Surface Area Calculated 1.94 m2 :36 Temperature 97.8 f Comments: Method: Temporal Pulse 63 /min Comments: Pattern: Regular Respiration Rate 16 /min Comments: Pattern: Unlabored O2 SAT 97 % Comments: Room air BP Systolic 147 mm[Hg] Comments: Patient Position: Sitting; Cuff Location: Left Arm; Cuff Size: Standard BP Diastolic 90 mm[Hg] Comments: Patient Position: Sitting; Cuff Location: Left Arm; Cuff Size: Standard Weight 193.375 lb Height 64 in Body Mass Index Calculated 33.19 kg/m2 Body Surface Area Calculated 1.93 m2 :09 Temperature 97.9 f Comments: Method: Temporal Pulse [...] m2 :31 Comments: [facility] 97.2 f Pulse 86 /min [...] :57 Comments: Glaucoma screening done at [facility] yearly Temperature 97.9 f Pulse 66 [...] Arm; Cuff Size: Standard Weight 195.0625 lb [id number] Pulse 78 /min Comments: Pattern: Regular Respiration [...] 0.00 cm Results Date Description Value Details :56 BNP,B-Type NATRIURETIC PEPTIDE Comments: [facility] [address] [place], [address] B-TYPE FATOUMATA PEP 147.4 pg/mL (Abnormal) Range: 0-100 :56 Magnesium Comments: [facility] [id number] [place], [address] MG 2.1 mg/dL (Normal) Range: 1.6-2.6 :56 Prealbumin Comments: [facility] [id number] [place], [place], [address] PREALBUMIN 19.2 mg/dL (Abnormal) Range: 20.0-40.0 :04 CBC W/Diff, Automated Comments: [facility] [address] [place], [place], [id number] Absolute Lymph 1.95 {X10_3/ul} (Normal) Range: 0.83-4.51 Absolute Neut 3.9 {X10_3/uL} (Normal) Range: 2.0-7.7 IM GRAN % 0.200 % (Normal) Range: 0.0-0.9 Comments: IG% - Immature Granulocytes (promyelocytes, myelocytes andmetamyelocytes) > 1% indicates that a LEFT SHIFT is Present. BASO% 0.3 % (Normal) Range: 0-1 EO% 0.8 % (Normal) Range: 0-5 MONO% 8.2 % (Normal) Range: 0-10 LY% 30.1 % (Normal) Range: 19-41 NEUT% 60.4 % (Normal) Range: 47-70 MPV 9.7 fL (Normal) Range: 6.2-12.0 PLT 307 K/mm3 (Normal) Range: 150-450 RDW SD 48.4 fL (Abnormal) Range: 35.1-43.9 RDW CV 13.8 % (Normal) Range: 11.6-14.6 MCHC 31.8 {g/gl} (Abnormal) Range: 32-36 MCH 30.7 pg (Normal) Range: 27.0-32.0 MCV 96.4 fL (Normal) Range: 81-99 HCT 40.2 % (Normal) Range: 37-47 HGB 12.8 g/dL (Normal) Range: 12.0-15.0 RBC 4.17 {M/mm3} (Abnormal) Range: 4.2-5.4 WBC 6.5 K/mm3 (Normal) Range: 4.4-11.0 61-Ezo-265528:04 Comprehensive Metabolic Profil Comments: [facility] [address] [place], [place], [address] GAP 5 (Normal) Range: 5-15 CO2 26.0 mmol/L (Normal) Range: 21.0-32.0 CL 110 mmol/L (Abnormal) Range: 98-107 K 4.0 mmol/L (Normal) Range: 3.5-5.1 NA 141 mmol/L (Normal) Range: 136-145 T BILI 0.60 mg/dL (Normal) Range: 0.20-1.00 ALT 21 U/L (Normal) Range: 13-56 ALK P 60 U/L (Normal) Range: 45-117 AST 18 U/L (Normal) Range: 15-37 CA 7.8 mg/dL (Abnormal) Range: 8.5-10.1 A/G 0.9 {RATIO} (Normal) Range: 0.9-2.4 GLOB 3.5 g/dL (Normal) Range: 2.2-4.2 ALB 3.1 g/dL (Abnormal) Range: 3.2-5.0 T PROT 6.6 g/dL (Normal) Range: 6.4-8.2 BUN/CRE 39.0 {RATIO} (Abnormal) Range: 10-20 EST GFR - AA 144 mL/min (Normal) Comments: GFR Calc EST GFR 119 mL/min (Normal) Comments: Non- GFR Calc CREAT,SERUM 0.54 mg/dL (Abnormal) Range: 0.55-1.02 Comments: The validity of the calculated GFR AND GFRAA in patients over70 years has not been determined. Clinical correlation isessential. BUN 21 mg/dL (Abnormal) Range: 7-18 GLU 84 mg/dL (Normal) Range: 74-106 Comments: Please note revised GLUCOSE reference range gteqkfvfk63/02/2018. 52-Knq-928211:32 CBC W/Diff, Automated Comments: [facility] [address] [place], [address] Absolute Lymph 1.39 {X10_3/ul} (Normal) Range: 0.83-4.51 Absolute Neut 2.8 {X10_3/uL} (Normal) Range: 2.0-7.7 IM GRAN % 0.200 % (Normal) Range: 0.0-0.9 Comments: IG% - Immature Granulocytes (promyelocytes, myelocytes andmetamyelocytes) > 1% indicates that a LEFT SHIFT is Present. BASO% 0.6 % (Normal) Range: 0-1 EO% 1.2 % (Normal) Range: 0-5 MONO% 11.7 % (Abnormal) Range: 0-10 LY% 28.5 % (Normal) Range: 19-41 NEUT% 57.8 % (Normal) Range: 47-70 MPV 9.3 fL (Normal) Range: 6.2-12.0 PLT 277 K/mm3 (Normal) Range: 150-450 RDW SD 46.8 fL (Abnormal) Range: 35.1-43.9 RDW CV 13.7 % (Normal) Range: 11.6-14.6 MCHC 32.0 {g/gl} (Normal) Range: 32-36 MCH 31.0 pg (Normal) Range: 27.0-32.0 MCV 97.1 fL (Normal) Range: 81-99 HCT 36.6 % (Abnormal) Range: 37-47 HGB 11.7 g/dL (Abnormal) Range: 12.0-15.0 RBC 3.77 {M/mm3} (Abnormal) Range: 4.2-5.4 WBC 4.9 K/mm3 (Normal) Range: 4.4-11.0 38-Gue-155096:32 Comprehensive Metabolic Profil Comments: Comments: [facility] [address] [place], [address] GAP 6 (Normal) Range: 5-15 CO2 27.0 mmol/L (Normal) Range: 21.0-32.0 CL 111 mmol/L (Abnormal) Range: 98-107 K 4.0 mmol/L (Normal) Range: 3.5-5.1 NA 144 mmol/L (Normal) Range: 136-145 T BILI 0.50 mg/dL (Normal) Range: 0.20-1.00 ALT 20 U/L (Normal) Range: 13-56 ALK P 54 U/L (Normal) Range: 45-117 AST 15 U/L (Normal) Range: 15-37 CA 7.6 mg/dL (Abnormal) Range: 8.5-10.1 A/G 0.9 {RATIO} (Normal) Range: 0.9-2.4 GLOB 3.0 g/dL (Normal) Range: 2.2-4.2 ALB 2.7 g/dL (Abnormal) Range: 3.2-5.0 T PROT 5.7 g/dL (Abnormal) Range: 6.4-8.2 BUN/CRE 43.6 {RATIO} (Abnormal) Range: 10-20 Estimated CRCL 45.85 ml/min (Normal) EST GFR - AA 140 mL/min (Normal) Comments: GFR Calc EST GFR 116 mL/min (Normal) Comments: Non- GFR Calc CREAT,SERUM 0.55 mg/dL (Normal) Range: 0.55-1.02 Comments: The validity of the calculated GFR AND GFRAA in patients over70 years has not been determined. Clinical correlation isessential. BUN 24 mg/dL (Abnormal) Range: 7-18 GLU 96 mg/dL (Normal) Range: 74-106 Comments: Please note revised GLUCOSE reference range lxfsgwpyz61/02/2018. 48-Iat-514005:32 Thyroid Stim Hormone (TSH) Comments: Comments: [facility] [address] [place], [place], [address] TSH 1.47 {uIU/mL} (Normal) Range: 0.358-3.74 98-Ayj-179721:51 Vitamin B12 > 2000 pg/mL (Abnormal) Comments: [facility] [address] [place], [place], [address] Range: 211-911 24-Jrm-093786:11 CBC W/Diff, Automated Comments: [facility] [address] [place], [address] Absolute Lymph 1.66 {X10_3/ul} (Normal) Range: [...] 4.2-5.4 WBC 5.9 K/mm3 (Normal) Range: 4.4-11.0 69-Dpc-075289:11 Comprehensive Metabolic Profil Comments: [facility] [address] [place], [address] GAP 8 (Normal) Range: 5-15 CO2 26.0 [...] Comments: Please note revised GLUCOSE reference range gtkcsnlju07/02/2018. 08-Vkg-869323:47 Culture, Urine Comments: [facility] [address] [place], [place], [address] CUUR See Note (Normal) Comments: Urine CultureORGANISM 1: Mixed Gram Pos AND Gram Neg OrgColony Count 50,000-80,000MIX CULTURE Mixed contaminants. Submit a new specimen if indicated. 15-Tfg-954410:47 Urinalysis, Complete Comments: How was Urine Obtained? CLEAN [facility] [address] [facility] [address] [place], [place], [address] MUCUS, URINE 0 SEEN {/hpf} (Normal) BACTERIA [...] BELOW (Normal) Comments: Visual Urine Color: GREEN 03-Koz-570633:41 TSH ([id number]) Comments: PATIENT NOT FASTINGPERFORMED BY: TuneGO6370 [address] [facility] AutomobileNov[facility] [id number] TSH 2.310 {uIU/mL} (Normal) Range: 0.450-4.500 75-Qvf-904872:28 URINE DELMAR CULTURE-IDENTIFICATN Comments: PATIENT NOT FASTINGPERFORMED BY: TuneGO6370 [address] Jon[address] AutomobileNov[facility] [id number] Information: SRC:UR ([id number]) Result 1 MUG (Normal) Comments: Mixed urogenital flora1,000 Colonies/mL Urine Culture,Comprehensive Final report (Normal) 98-Rsc-426673:41 Metabolic Panel, Comprehensive Comments: PATIENT NOT FASTINGPERFORMED BY: TuneGO6370 [address] Jon[address] AutomobileNov[facility] [id number] ([id number]) ALT (SGPT) 16 [iU]/L (Normal) Range: 0-32 [...] 8-27 Glucose 89 mg/dL (Normal) Range: 65-99 21-Uyx-125417:02 Urinalysis, Office (30741) UA - LEUKOCYTE ESTERASE Small (Normal) UA - NITRITE Negative (Normal) URINE UROBILINGN JEROME TIMED Normal mg/dL (Normal) UA - PROTEIN Negative mg/dL (Normal) UA - PH 7.5 (Normal) UA - BLOOD Negative (Normal) UA - SPECIFIC GRAVITY 1.020 (Normal) UA - KETONES Negative mg/dL (Normal) UA - BILIRUBIN Negative (Normal) UA - GLUCOSE Negative (Normal) 33-Ayz-485037:54 LDH (LD) (LACTATE DEHYDROGENASE) Comments: PATIENT NOT FASTINGPERFORMED BY: [employer] [place] [id number] ([id number]) LDH 191 [iU]/L (Normal) Range: 119-226 03-Acq-036013:54 RHEUMATOID FACTOR-QUANT (56113) Comments: PATIENT NOT FASTINGPERFORMED BY: [employer] [place] [id number] RA Latex Turbid. <10.0 {IU/mL} (Normal) Range: 0.0-13.9 28-Avl-982486:54 C-Reactive Protein (52027) Comments: PATIENT NOT FASTINGPERFORMED BY: [employer] [place] [id number] C-Reactive Protein, Quant 6.1 mg/L (Abnormal) Range: 0.0-4.9 35-Qdu-023886:54 SED RATE ERYTHROCYTE (23693) Comments: PATIENT NOT FASTINGPERFORMED BY: [facility] Cwkymz6503 [facility] [id number] Sedimentation Rate-Westergren 16 mm/h (Normal) Range: 0-40 2-Aen-588541:40 CPK Total, Creatine Kinase Comments: 48[facility] [address] [place], [place], [address] CPK TOTAL 68 U/L (Normal) Range: 26-192 24-Qws-307400:12 Culture, Urine Comments: [facility] [address] [place], [place], [address] CUUR See Note (Normal) Comments: Urine CultureORGANISM [...] $ <=20 S(NF) indicates non-formulary drug at [facility]. Approval by Infectious Disease Specialist required before non- formulary drugs may be ordered and/or dispensed. 58-Zuc-234863:12 Urinalysis, Routine (Dipstick) Comments: How was Urine Obtained? CLEAN [facility] [address] [place], [place], [address] LEUK ESTERASE 500 /ul (Abnormal) OCCULT BLOOD-UR 50 /ul (Abnormal) NITRITE UR Positive (Abnormal) UROBILI Normal mg/dL (Normal) PROT DIPSTX 100 mg/dL (Abnormal) pH UR 6.0 (Normal) Range: 5.0 - 8.0 SP.GR. DIPSTX 1.025 (Normal) Range: 1.002-1.030 KETONE UR Negative mg/dL (Normal) BILIRUBIN URINE Negative mg/dL (Normal) GLUCOSE, UR Normal mg/dL (Normal) CLARITY Cloudy (Normal) COLOR Yellow (Normal) 34-Eij-878078:15 CBC W/Diff, Automated Comments: [facility] [address] [place], [address] Absolute Lymph 1.50 {X10_3/ul} (Normal) Range: 0.83-4.51 [...] 4.2-5.4 WBC 4.6 K/mm3 (Normal) Range: 4.4-11.0 04-Hiv-788120:15 Comprehensive Metabolic Profil Comments: [facility] [address] [place], [place], [address] GAP 7 (Normal) Range: 5-15 CO2 28.0 mmol/L (Normal) Range: 21.0-32.0 CL 106 mmol/L (Normal) Range: 98-107 K 3.6 mmol/L (Normal) Range: 3.5-5.1 NA 141 mmol/L (Normal) Range: 136-145 T BILI 0.60 mg/dL (Normal) Range: 0.20-1.00 ALT 27 U/L (Normal) Range: 13-56 Comments: Please note revised ALT reference range tiwgfyhsf96/28/2018. ALK P 68 U/L (Normal) Range: 45-117 [...] A.D.A. criteria.Please note revised GLUCOSE reference range nzyothmsu95/02/2018. 9-Bjm-520443:59 CPK Total, Creatine Kinase Comments: [facility] [address] [place], [place], [address] CPK TOTAL 55 U/L (Normal) Range: 26-192 5-Xpk-981048:59 GGTP 140 U/L (Abnormal) Comments: [facility] [address], [address] Range: 5-55 :50 CBC W/Diff, Automated Comments: [address] [place], [address] Absolute Lymph 1.40 {X10_3/ul} (Normal) Range: 0.83-4.51 [...] Range: 4.4-11.0 :50 Comprehensive Metabolic Profil Comments: [facility] [address] [place], [address] GAP 7 (Normal) Range: 5-15 CO2 28.0 [...] <126 mg/dLsuggests IMPAIRED HOMEOSTASIS per A.D.A. criteria. 91-Jqd-716464:00 CBC W/Diff, Automated Comments: [facility] [address] [facility]. [place], [place], [address] ; Dr Fiore Absolute Lymph 1.66 {X10_3/ul} [...] 4.2-5.4 WBC 5.2 K/mm3 (Normal) Range: 4.4-11.0 68-Urs-790993:00 Comprehensive Metabolic Profil Comments: [facility] [address] [place], [place], [address] GAP 5 (Normal) Range: 5-15 CO2 27.0 [...] 7-18 GLU 106 mg/dL (Normal) Range: 70-110 13-Uhk-288871:00 CBC W/Diff, Automated Comments: [facility] [address] [place], [address] ; rheum Absolute Lymph 1.83 {X10_3/ul} (Normal) [...] 4.2-5.4 WBC 5.8 K/mm3 (Normal) Range: 4.4-11.0 11-Kns-297439:00 Comprehensive Metabolic Profil Comments: [facility] [address] [place], [place], [address] ; Dr moreno GAP 7 (Normal) Range: [...] 7-18 GLU 98 mg/dL (Normal) Range: 70-110 67-Wiu-738084:39 CBC W/Diff, Automated Comments: [facility] [address] [place], [place], [address] SMEAR COMMENT SCANNED (Normal) Absolute Lymph 0.54 [...] 4.2-5.4 WBC 11.4 K/mm3 (Abnormal) Range: 4.4-11.0 19-Itg-721804:39 Comprehensive Metabolic Profil Comments: [facility] [address] [place], [place], [address] GAP 10 (Normal) Range: 5-15 CO2 23.0 [...] 126 mg/dLsuggests DIABETES MELLITUS per A.D.A. criteria. 67-Ikr-901946:39 Lipase Comments: [facility] [address] [place], [place], [address] LIPASE 86 U/L (Normal) Range: 73-393 23-Apr-20167:01 Pap IG (Image Comments: Source.............Cervix;EndocervixNo. of containers..01 CYTYC Thin Prep VialPATIENT NOT FASTINGPERFORMED BY: =G [facility] Jgbgxdjxyw564 [facility] W [id number] BY: [employer] Guided) Chrissie [facility] W [id number] Note: PAPSMR (Normal) Comments: The Pap smear [...] metaplasticcells (endocervical component) are present.Z01.419CyAlek Fraser totechnologist (ASC) :01 Thin prep Pap Comments: Source.............Cervix;EndocervixNo. of containers..01 CYTYC Thin Prep VialPATIENT NOT FASTINGPERFORMED BY: =G [facility] Wcrjvibzzi127 [facility] HospitalSeemaBut[facility] [id number] BY: [employer] (60725) (no STD Kkvbsovxbr664 [facility] JanaeW[facility] State HospitalnetoBut[facility] [id number] Information: [id number]; ov in 2 weeks testing) Age Gdln ACOG Testing AGE4 (Normal) Comments: <21 or >65 or no age provided :55 CBC W/Diff, Automated Comments: [facility] [address] [place], [address] Absolute Lymph 1.88 {X10_3/ul} (Normal) [...] 4.2-5.4 WBC 5.7 K/mm3 (Normal) Range: 4.4-11.0 64-Ett-985604:55 Comprehensive Metabolic Profil Comments: [facility] [address] [place], [place], [address] GAP 7 (Normal) Range: 5-15 CO2 28.0 [...] 7-18 GLU 84 mg/dL (Normal) Range: 70-110 97-Igm-687369:52 CBC W/Diff, Automated Comments: [facility] [address] [place], [address] Absolute Lymph 1.74 {X10_3/ul} (Normal) Range: 0.83-4.51 [...] Range: 4.4-11.0 :52 Comprehensive Metabolic Profil Comments: [facility] [address] [place], [place], [address] GAP 6 (Normal) Range: 5-15 CO2 29.0 [...] Range: 70-110 :52 Vitamin D,25 Hydroxy Comments: [facility] [address] [place], [place], [address] Vitamin D 25-OH 23.6 ng/mL (Normal) Comments: Vitamin D 25(OH) Status Range Deficiency <20 ng/mL (50nmol/L) Insuffciency 20 - 30 ng/mL (50 - 75 nmol/L) Sufficiency 30 - 100 ng/mL (75 - 250 nmol/L) Toxicity >100 ng/mL (>250 nmol/L) 86-Msv-460297:34 URINE DELMAR CULTURE-JEROME COL Comments: PATIENT NOT FASTINGPERFORMED BY: [facility] Fihwbd6636 [facility] [id number] Information: SRC:[facility] [id number] COUNT ([id number]) Result 1 MUG (Normal) Comments: Mixed urogenital floraGreater than 100,000 colony forming units per mL Urine Culture,Comprehensive Final report (Normal) 45-Zbr-014988:21 Urinalysis, Office (56358) UA - LEUKOCYTE ESTERASE Trace (Normal) UA - NITRITE Negative (Normal) URINE UROBILINGN JEROME TIMED Normal mg/dL (Normal) UA - PROTEIN Negative mg/dL (Normal) UA - PH 6.0 (Normal) Comments: 5.5 UA - BLOOD Negative (Normal) UA - SPECIFIC GRAVITY 1.030 (Abnormal) UA - KETONES Negative mg/dL (Normal) UA - BILIRUBIN Negative (Normal) UA - GLUCOSE Negative (Normal) 92-Upa-939509:10 CBC W/Diff, Automated Comments: [facility] [address] [place], [address] Absolute Lymph 1.44 {X10_3/ul} (Normal) [...] 4.2-5.4 WBC 4.3 K/mm3 (Abnormal) Range: 4.4-11.0 64-Mwi-363443:10 Comprehensive Metabolic Profil Comments: [facility] [address] [place], [address] GAP 3 (Abnormal) Range: 5-15 CO2 28.0 [...] 126 mg/dLsuggests DIABETES MELLITUS per A.D.A. criteria. 38-Kvf-118586:10 Vitamin D,25 Hydroxy Comments: [facility] [address]ffw[address] [facility] [address] [place], [place], [address] Vitamin D 25-OH 20.8 ng/mL (Normal) Comments: Vitamin D 25(OH) Status Range Deficiency <20 ng/mL (50nmol/L) Insuffciency 20 - 30 ng/mL (50 - 75 nmol/L) Sufficiency 30 - 100 ng/mL (75 - 250 nmol/L) Toxicity >100 ng/mL (>250 nmol/L) 52-Syh-834434:16 CBC W/Diff, Automated Comments: [facility] [address]ibkc[address] [facility] [address] [place], [place], [address] ; ordered by another doctor Absolute Lymph [...] 4.2-5.4 WBC 5.1 K/mm3 (Normal) Range: 4.4-11.0 64-Clw-682697:16 Comprehensive Metabolic Profil Comments: [facility] [address] [place], [place], [address] ; ordered by another doctor GAP 7 [...] 7-18 GLU 87 mg/dL (Normal) Range: 70-110 91-Aus-518711:16 Vitamin D,25 Hydroxy Comments: [facility] [address] [place], [place], [address] ; ordered by another doctor Vitamin D 25-OH 33.2 ng/mL (Normal) Comments: Vitamin D 25(OH) Status Range Deficiency <20 ng/mL (50nmol/L) Insuffciency 20 - 30 ng/mL (50 - 75 nmol/L) Sufficiency 30 - 100 ng/mL (75 - 250 nmol/L) Toxicity >100 ng/mL (>250 nmol/L) 5-Uig-911720:22 CBC W/Diff, Automated Comments: [facility] [address] [place], [place], [address] Absolute Lymph 1.19 {X10_3/ul} (Normal) Range: 0.83-4.51 [...] 4.2-5.4 WBC 4.6 K/mm3 (Normal) Range: 4.4-11.0 4-Rcs-104490:22 Comprehensive Metabolic Profil Comments: [facility] [address] [place], [place], [address] GAP 3 (Abnormal) Range: 5-15 CO2 29.0 [...] 7-18 GLU 100 mg/dL (Normal) Range: 70-110 7-Kyc-254397:22 Lipid Profile Comments: [facility] [address] [place], [address] VLDL 16 mg/dL (Normal) Range: 5-40 LDL [...] 200-240 mg/dL Borderline >240 mg/dL High Risk 7-Aso-346948:22 Thyroid Stim Hormone (TSH) Comments: [facility] [address]xbp[address] [facility] [place], [address] TSH 1.39 {uIU/mL} (Normal) Range: 0.358-3.74 82-Dot-887327:30 CBC W/Diff, Automated Comments: Comments: IVT TO DRAW OFF [facility] pt arrived? YTest performed at:[facility] [address]wrxhvtx4271 [facility] [place] [address] Absolute Lymph 1.56 {X10_3/ul} (Normal) [...] 4.2-5.4 WBC 4.7 K/mm3 (Normal) Range: 4.4-11.0 94-Pcs-928918:30 Comprehensive Metabolic Profil Comments: Has pt arrived? YComments: IVT TO DRAW FROM PORTTest performed at:[facility] [address] [place], [place] [address] GAP 8 (Normal) Range: 5-15 CO2 27.0 [...] Comments: Please note revised CREATININE reference range pukynwijo88/22/2015. BUN 21 mg/dL (Abnormal) Range: 7-18 GLU 133 mg/dL (Abnormal) Range: 70-110 Comments: Fasting Glucose result greater than or equal to 126 mg/dLsuggests DIABETES MELLITUS per A.D.A. criteria. 53-Eud-385330:30 Vitamin D,25 Hydroxy Comments: Has pt arrived? YTest performed at:[facility] [address]zprrqpe2217 [facility] [place] [address] Vitamin D 25-OH 22.5 ng/mL (Normal) Comments: Vitamin D 25(OH) Status Range Deficiency <20 ng/mL (50nmol/L) Insuffciency 20 - 30 ng/mL (50 - 75 nmol/L) Sufficiency 30 - 100 ng/mL (75 - 250 nmol/L) Toxicity >100 ng/mL (>250 nmol/L) 90-Eqb-600650:42 D-Dimer Quantitative (DVT/PE) Comments: Test performed at:[facility] Kkvprodzfk0621 [facility] [place] [address] D-DIMER QUANT 0.54 {FEU/ug/m} (Abnormal) Range: 0.27-0.49 Comments: D-Dimer ELEVATED (>0.49): Additional studies and clinicalassessments are indicated to conclude diagnosis of:Deep Vein Thrombosis (DVT) or Pulmonary Embolism (PE)CRITICAL VALUE CALLED TO [address] 02/02 Ashish Griffin.RESULTS READ BACK BY SAME . 98-Lfg-336168:39 Lipase Comments: Test performed at:[facility] Jxjxbozxpi2468 [facility] [place] [address] LIPASE 96 U/L (Normal) Range: 70-290 23-Unc-525331:22 BNP,B-Type NATRIURETIC PEPTIDE Comments: Test performed at:[facility] [address]hopjhxhiw6123 [facility] [place] [address] B-TYPE FATOUMATA PEP 124.8 pg/mL (Abnormal) Range: 0-100 99-Rja-085344:22 CBC W/Diff, Automated Comments: Test performed at:[facility] Htujxlxroh7586 [facility] [place] [address] Absolute Lymph 2.09 {X10_3/ul} (Normal) [...] 4.2-5.4 WBC 5.9 K/mm3 (Normal) Range: 4.4-11.0 55-Ksp-142834:22 CK-MB Quantitative and Index Comments: Test performed at:[facility] [address]qldylknpv6355 [facility] [place] [address] CPKMB 0.7 ng/mL (Normal) Range: 0.0-5.0 Comments: CK-MB and RI Interpretation MB Relative Index Non-AMI <or= 5 NA Indeterminate > 5 <or= 4 AMI > 5 > 4 CPK TOTAL 97 U/L (Normal) Range: 26-192 00-Nsi-698895:22 Comprehensive Metabolic Profil Comments: 'TROP' Serial specimen #1, #2, #3, or #4: 1Test performed at:[facility] Xjtacuqbsg6087 [facility] [place] [address] GAP 9 (Normal) Range: 5-15 [...] 126 mg/dLsuggests DIABETES MELLITUS per A.D.A. criteria. 03-Kno-397707:22 Troponin-I Comments: 'TROP' Serial specimen #1, #2, #3, or #4: 1Test performed at:[facility] [address] [place], [place] [address] TROPONIN-I < 0.02 ng/mL (Normal) Comments: TROPONIN-I EXPECTED VALUES <0.05 NEGATIVE 0.06 - 0.59 AT RISK OF IA > OR = 0.60 SUGGEST IA 29-Ckj-282863:20 Urinalysis, Complete Comments: Order Date: 11/15/14How was Urine Obtained? CLEAN CATCHTest performed at:[facility] Lhkthblmhc0008 [facility] [place] [address] AMORPHOUS 1+ PHOS (Normal) MUCUS, [...] CLARITY Sl. Cloudy (Normal) COLOR Yellow (Normal) 72-Nnz-328950:00 CBC W/Diff, Automated Comments: Comments: IVT TO DRAWTest performed at:[facility] [address] [place] [address] Absolute Lymph 1.62 {X10_3/ul} (Normal) [...] 4.2-5.4 WBC 5.8 K/mm3 (Normal) Range: 4.4-11.0 62-Xbl-637310:00 Comprehensive Metabolic Profil Comments: Comments: IVT TO DRAWTest performed at:[facility] [address] [place] [address] GAP 4 (Abnormal) Range: 5-15 CO2 27.0 [...] 126 mg/dLsuggests DIABETES MELLITUS per A.D.A. criteria. 32-Hkz-114839:25 CBC W/Diff, Automated Comments: Test performed at:[facility] [address]xbsvs[address] [place] [address] Absolute Lymph 1.28 {X10_3/ul} (Normal) Range: 0.83-4.51 [...] 4.2-5.4 WBC 5.0 K/mm3 (Normal) Range: 4.4-11.0 64-Nkx-419863:25 Comprehensive Metabolic Profil Comments: Test performed at:[facility] [address]uh[address] [place], [place] [address] GAP 4 (Abnormal) Range: 5-15 CO2 29.0 [...] 7-18 GLU 100 mg/dL (Normal) Range: 70-110 73-Cnm-915414:21 URINE DELMAR CULTURE-JEROME COL Comments: PATIENT NOT FASTINGPERFORMED BY: [facility]Co[facility] HospitalOncjbv6749 [facility] [id number] Information: SRC:UR [id number] COUNT ([id number]) Result 1 MUG (Normal) Comments: Mixed urogenital flora1,000 Colonies/mL Urine Culture,Comprehensive Final report (Normal) 50-Sxc-[id number] Urinalysis, Office ([id number]) UA - LEUKOCYTE ESTERASE Trace (Normal) UA - NITRITE Negative (Normal) URINE UROBILINGN JEROME TIMED Normal mg/dL (Normal) UA - PROTEIN Negative mg/dL (Normal) UA - PH 6.0 (Normal) Comments: 5.5 UA - BLOOD Negative (Normal) UA - SPECIFIC GRAVITY 1.030 (Abnormal) UA - KETONES Negative mg/dL (Normal) UA - BILIRUBIN Negative (Normal) UA - GLUCOSE Negative (Normal) 0-Wzs-892616:15 CBCD ALC 1.51 {X10_3/ul} (Normal) Range: 0.83-4.51 [...] 4.2-5.4 WBC 5.7 K/mm3 (Normal) Range: 4.4-11.0 5-Ddk-294242:15 CMP Comments: Comments: FAX RESULTS TO DR. [...] or Folic Acid Supplements? N Range: 3.1-17.5 6-Jrx-969862:01 Urinalysis, Office ([id number]) UA - LEUKOCYTE ESTERASE Negative (Normal) UA - NITRITE Negative (Normal) URINE UROBILINGN JEROME TIMED Normal mg/dL (Normal) UA - PROTEIN Negative mg/dL (Normal) UA - PH 5 (Abnormal) UA - BLOOD Negative (Normal) UA - SPECIFIC GRAVITY 1.025 (Normal) UA - KETONES Negative mg/dL (Normal) UA - BILIRUBIN Negative (Normal) UA - GLUCOSE Negative (Normal) 5-Zbb-963999:52 CBCD ALC 1.26 {X10_3/ul} (Normal) Range: 0.83-4.51 [...] 4.2-5.4 WBC 4.2 K/mm3 (Abnormal) Range: 4.4-11.0 2-Tyg-257752:52 CMP Comments: SED RATE ADD ON BLOOD [...] 126 mg/dLsuggests DIABETES MELLITUS per A.D.A. criteria. 1-Lpm-[id number]:52 SED tSEDRATE 32 mm/h (Abnormal) Range: 0-30 :21 iPBE 0 mmol/L (Normal) :21 iPCO2 40.0 {mmHg} (Normal) Range: 35-45 :21 iPH 7.41 (Normal) Range: 7.35-7.45 :21 iPO2 83 {mmHG} (Normal) Range: 75-100 :21 iTCO2 26 mmol/L (Normal) :21 iTHCO3 25 mmol/L (Normal) Range: 22-26 Comments: Site = L BrachialAllens Test = POSDevice = Room AirResults To = OTHERTime Given = 915 :21 pGP1HWS 96 % (Normal) Range: 95-99 :21 iTYPE ART (Normal) 5-Rvu-127202:37 Rapid Flu (78177 x 2) Comments: neg Influenza A Ag negative a and b (Normal) 9-Rjc-953311:59 Influenza A&B Viral Comments: neg; PATIENT NOT FASTINGPERFORMED BY: [facility] Arrajk4493 [facility] [id number] Information: SRC:NOS [id number] Culture (06769) Viral Culture,Rapid,Influenza FLUABN (Normal) Comments: Negative:No Influenza [...] 7-18 GLU 87 mg/dL (Normal) Range: 70-110 6-Zff-339328:05 FOL 22.20 ng/mL (Abnormal) Comments: COMMENTS: FAX RESULTS TO AISLINN SCOTT DRAW Range: 3.1-17.5 :08 CALCIFEDIOL (98653) Comments: PATIENT NOT FASTINGPERFORMED BY: [facility]Co[facility] HospitalPaufrq6028 [facility] [id number] Information: [id number] Vitamin D, 25-Hydroxy 47.6 ng/mL (Normal) Range: 30.0-100.0 Comments: Vitamin D deficiency has been defined by the [place] of[place] and an Endocrine Society practice guideline as alevel of serum 25-OH vitamin D less than 20 ng/mL (1,2).The Endocrine Society went on to further define vitamin Dinsufficiency as a level between 21 and 29 ng/mL (2).1. IOM ([place] of [employer]). 2010. Dietary reference intakes for calcium and D. [place]: The National Academies Press.2. Stacia MF, Mago MONTE, Meliza MAGDALENO, et al. Evaluation, treatment, and prevention of vitamin D deficiency: an Endocrine Society clinical practice guideline. JCEM. 2010; 96(7):1911-30. :18 BILSAM NORMANBhupinder DIGITAL & CAD Radiology Report See Note [...] Morales M.D.May 04 012 at 2:58:08 PM [id number] Signed GP/GP If you are the referring physician and would like to consult with theradiologist who provided this interpretation, please contact Valdo bettencourt M.D. at [phone]. If this radiologist is unavailable, youwill be directed to another radiologist to assist. If you are a patient with a question regarding this report, pleasecontactyour refe rring physician directly. Professional Interpretation Provided By: [employer], Phone , These documents contain legally protected [...] destructionofthese documents. Dictated on 04/26/12 1418 by Radha Morales MDscribed on 05/04/12 151 by ITS IMPORTSign by Martín Morales MD on 05/04/121511 Sign by: Martín Morales MD 06-Apr-2012 TSH 2.25 {uIU/mL} Range: 0.358-3.74 10:00 (Normal) 05-Apr-2012 VITD 21.7 ng/mL Comments: RE-COLLECT 10:08 (Abnormal) Range: 30.0-100.0 Comments: Vitamin D deficiency has been defined by the [place] and an Endocrine Society practice guideline as alevel of serum 25-OH vitamin D less than 20 ng/mL (1,2).The Endocrine Society went on to further define vitamin Dinsufficiency as a level between 21 and 29 ng/mL (2).1. IOM ([place] [employer]). 2010. Dietary reference intakes for calcium and D. [place]: The National Academies Press.2. Stacia MF, Mago [place], Evelyn-Nitish MAGDALENO, et al. Evaluation, treatment, and prevention of vitamin D deficiency: an Endocrine Society clinical practice guideline. JCEM. 2010; 96(7): 1911-30.Performed at: [address] [id number] Director: Meeta Hickman MD, Phone: [phone] 57-Oau-484912:44 LIPID VLDL 14 mg/dL (Normal) Range: 5-40 [...] 200-240 mg/dL Borderline >240 mg/dL High Risk 60-Nnr-191443:35 Urinalysis, Office (55123) UA - BILIRUBIN Small (Normal) UA - BLOOD Negative (Normal) UA - GLUCOSE Negative (Normal) UA - KETONES Small mg/dL (Normal) Comments: trace UA - LEUKOCYTE ESTERASE Negative (Normal) UA - NITRITE Negative (Normal) UA - PH 5.0 (Normal) UA - PROTEIN Trace mg/dL (Normal) UA - SPECIFIC GRAVITY 1.025 (Normal) URINE UROBILINGN JEROME TIMED Normal mg/dL (Normal) 02-Oqz-360275:07 CBC with manual diff Comments: PATIENT NOT FASTINGPERFORMED BY: [facility]Co[facility] HospitalMizeov0582 [facility] [id number] Information: [id number] (41503) Immature Grans (Abs) 0.0 {x10E3/uL} (Normal) Range: [...] 3.80-5.10 WBC 5.6 {x10E3/uL} (Normal) Range: 4.0-10.5 17-Mnh-766611:07 Metabolic Panel, Comprehensive Comments: PATIENT NOT FASTINGPERFORMED BY: [facility] HospitalPwwhpl2481 [facility] [id number] (10864) Alkaline Phosphatase, S 50 [iU]/L (Normal) Range: [...] Glucose, Serum 97 mg/dL (Normal) Range: 65-99 98-Cyp-35894:00 SPINE, CERVICAL (ROUTINE) Radiology See Note Comments: [...] canal. Moderate foraminalstenosisat this level. Dictated on 06/17/101337 by Lee Ann KeyTranscribed on 06/18/101754 by ITS IMPORTSign by Lee Ann Key 06/18/101755 Sign by: Lee Ann Key 33-Zml-651803:49 RENAL CO2 28.0 mmol/L (Normal) Range: 21.0-32.0 [...] 0.6-1.0 GLU 102 mg/dL (Normal) Range: 70-110 11-Vmn-45077:00 CERV SPINE,MIN 4 VIEWS Radiology Report See [...] 06/05/101512 by Daxa Worleyranscribed on 06/05/101512 by CAMILOMCKESSONSign by Alena Worley on 06/09/10 0855 Sign by: Alena Worley 87-Bnd-905663:55 CALCIFEDIOL (04119) Comments: PATIENT NOT FASTINGPERFORMED BY: [facility]Co[facility] HospitalPlyjvi0937 [facility] [id number] Information: [id number] Vitamin D, 25-Hydroxy 36.1 ng/mL (Normal) Range: [...] (Normal) GLU 82 mg/dL (Normal) Range: 70-110 21-Jbs-444180:33 ALDOLASE 2030 4.7 U/L (Normal) Range: 1.2-7.6 Comments: Performed at: [address] [id number] Director: Meeta Hickman MD 18-Fmo-500005:33 CBCD ABSOLUTE NEUT 2.6 3/uL (Normal) Range: [...] 11.6-14.6 WBC 4.9 K/mm3 (Normal) Range: 4.4-11.0 75-Xln-037987:33 COMP METABOLIC Comments: LIVER TEST TO CL [...] 6.4-8.2 GLU 95 mg/dL (Normal) Range: 70-110 48-Xnm-010312:33 CPK TOTAL 37 U/L (Normal) Comments: LIVER TEST TO Range: 21-215 55-Vyr-133867:33 D BILI 0.12 mg/dL (Normal) Comments: LIVER TEST TO Range: 0.00-0.30 33-Bnx-118768:46 COMPLETE UA BACTERIA RARE {/hpf} (Normal) MUCUS, [...] 1.002-1.030 CLARITY CLEAR (Normal) COLOR YELLOW (Normal) 01-Ysq-316652:46 CPK ISO 2154 CK-BB 0 % (Normal) Comments: Performed at: [place] [id number] Director: Meeta Hickman MD CK-MB 0 % (Normal) Range: 0-3 CK-MM 100 % (Normal) Range: 97-100 Macro I 0 % (Normal) Macro II 0 % (Normal) CPK,TOTAL,SERUM 59 U/L (Normal) Range: 24-173 :46 PTH,Intact 57 pg/mL (Normal) Range: 14-72 :46 TSH 1.06 {uIU/mL} (Normal) Range: 0.358-3.74 :29 ALDOLASE 2030 9.1 U/L (Abnormal) Range: 1.2-7.6 Comments: Performed at: [address] [id number] Director: Saul Cuadra MD 30-Ugz-929572:29 COMP METABOLIC CL 103 mmol/L (Normal) Range: [...] CPK TOTAL 356 U/L (Abnormal) Range: 21-215 80-Niu-558330:29 [facility] LAB TEST . (Normal) Comments: MYOGLOBIN, SERUM 121 H ng/mL 25 - 58 TESTING PERFORMED AT [facility]. ORIGINAL REPORT ONFILE IN LAB [...] U/L (Abnormal) Range: 1.2-7.6 Comments: Performed at: [address] [id number] Director: Saul Cuadra MD :03 CKMB CKRI [...] 4.2-5.4 WBC 4.1 K/mm3 (Abnormal) Range: 4.4-11.0 61-Bbp-581261:18 COMP METABOLIC CL 104 mmol/L (Normal) Range: [...] 0.6-1.0 GLU 109 mg/dL (Normal) Range: 70-110 68-Rat-613885:10 Rapid Strep Test, Office (65641) Rapid Strep Test, Office Negative (Normal) 0-Qzn-580367:56 CALCIFEDIOL (98534) Comments: PATIENT NOT FASTINGPERFORMED BY: LabCoChrist HospitalYzjysr3382 [facility] [id number] Information: [id number] Vitamin D, 25-Hydroxy 19.7 ng/mL (Abnormal) Range: 32.0-100.0 Comments: Recent studies consider the lower limit of 32.0 ng/mL to be athreshold for optimal health.Froylan BHAKTA. J Nutr. 2004;135(2):317-22. 63-Rgu-545367:10 ABDOMEN/PELVIS WITH CONTRAST Radiology Report See Note (Normal) Comments: Exam Number: [id number] CLINICAL:58 year old woman with abnormal blood [...] surgically absent. Reported By: LOREN MALCOLM M.D. 93-Xei-424784:15 TRANSVAGINAL NON-PREG US () Radiology Report See Note (Normal) Comments: Exam Number: [id number] CLINICAL:58-year-old female post menopausal with positive beta-hCG [...] weeks recommended. Reported By: WILLIE BOLIVAR M.D. 56-Udc-070911:55 PELVIC (NON-PREG) () Radiology Report See Note (Normal) Comments: Exam Number: [id number] CLINICAL:58-year-old female post menopausal with positive beta-hCG [...] HCGUQUAL SeeNote m[iU]/mL (Normal) Comments: Result: Negative 18-Oas-319426:17 DELMAR CULTURE-OTHER (40964) Comments: PATIENT NOT FASTINGClinical Information: SRC:THRT ADD [id number] PERFORMED BY: [facility]6370 [facility] [id number] Result 1 RRF (Normal) Comments: Routine respiratory gabriella Upper Respiratory Culture Final report (Normal) 82-Pmr-998722:03 LQD PAP [id number] Comments: CYTOLOGY INFORMATION:- CLINICAL INFORMATION: - DATE LMP/MENOPAUSE: 1998 LMP- COLLECTION VIAL: Thin Prep Vial- AMBULATORY CARE COORDINATOR SOURCE: CERVICAL/ENDOCERVICAL- COLLECTION TECHNIQUE: BRUSH/SPATULA ADEQ Comment (Normal) Comments: Satisfactory for evaluation. Endocervical and/or squamous metaplasticcells (endocervical component) are present. COMM . (Normal) DIAGN Comment (Normal) Comments: NEGATIVE FOR INTRAEPITHELIAL LESION AND MALIGNANCY. HPV RFLX Comment (Normal) Comments: The HPV DNA reflex criteria were not met with this specimenresult therefore, no HPV testing was performed. .Performed At: [address] [id number] PAPSMR Comment (Normal) Comments: The Pap smear is a screening test designed to aid in thedetection of premalignant and malignant conditions of theuterine cervix. It is not a diagnostic procedure andshould not be used as the sole means of detecting cervicalcancer. Both false-positive and false-negative reports dooccur. . PERFORM Comment (Normal) Comments: Ashwin Blanc, Hot End Operator (ASCP) 65-Ist-276264:52 Microscopic Examination Comments: PATIENT WAS FASTINGPERFORMED BY: [employer]70 [facility] [id number] Bacteria Few (Normal) Epithelial Cells (non renal) None seen {/hpf} (Normal) Range: 0 - 10 RBC None seen {/hpf} (Normal) Range: 0 - 3 WBC 0-5 {/hpf} (Normal) Range: 0 - 5 29-Qoq-850751:52 MICROALBUMIN: CREATININE RATIO Comments: PATIENT WAS FASTINGPERFORMED BY: [employer]70 [facility] [id number] (73828) AND (24132) Creatinine, Urine 353.6 mg/dL (Abnormal) Range: 15.0-278.0 Microalb/Creat Ratio 5.4 {ug/mg_creat} (Normal) Range: 0.0-30.0 Microalbumin, Urine 19.2 ug/mL (Abnormal) Range: 0.0-17.0 20-Ntd-450603:52 URINALYSIS (41535) Comments: PATIENT WAS FASTINGPERFORMED BY: [employer]70 [facility] [id number] Appearance Clear (Normal) Bilirubin Negative (Normal) Glucose Negative (Normal) Ketones Negative (Normal) Microscopic Examination See below: (Normal) Nitrite, Urine Negative (Normal) Occult Blood Negative (Normal) pH 8.0 (Abnormal) Range: 5.0-7.5 Protein 1+ (Abnormal) Specific [place] 1.010 (Normal) Range: 1.005-1.030 Urine-Color Yellow (Normal) Urobilinogen,Semi-Qn 0.2 mg/dL (Normal) Range: 0.0-1.9 WBC Esterase Negative (Normal) 98-Gmv-530960:52 Metabolic Panel, Comprehensive Comments: PATIENT WAS FASTINGPERFORMED BY: [facility] Rqgbmv1828 [facility] [id number] (44358) A/G Ratio 1.6 (Normal) Range: 1.1-2.5 Albumin, [...] Sodium, Serum 144 mmol/L (Normal) Range: 135-145 83-Hdt-320284:52 Lipid Panel (63647) Comments: PATIENT WAS FASTINGPERFORMED BY: [facility]Co[facility] HospitalVdglpd0219 [facility] [id number] Cholesterol, Total 237 mg/dL (Abnormal) Range: 100-199 [...] Cholesterol García 19 mg/dL (Normal) Range: 5-40 37-Vih-807594:52 CBC with manual diff (98687) Comments: PATIENT WAS FASTINGClinical Information: ADD DARW FEE [id number] ADD J 04190 PERFORMED BY: HIREN [facility] Fhxxzm0379 [facility] [id number] Baso (Absolute) 0.1 {x10E3/uL} (Normal) Range: 0.0-0.2 [...] Plan of Care Name Dates Details Instructions BMI 33.0-33.9,adult : Follow up if no improvement or if symptoms worsen Indication: BMI 33.0-33.9,adult Non-smoker : Eprescribed prescriptions (G8553) Indication: Non-smoker Non-smoker : Follow up in 2 weeks Indication: Non-smoker Non-smoker : Eprescribed prescriptions (G8553) Indication: Non-smoker 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) Indication: [...] : Follow up in 3 months with [facility] Indication: Insomnia Vitamin D deficiency, [...] pain : Follow up on Wednesday with [facility] Indication: Back pain Carnitine deficiency [...] : FOLLOW UP IN 3 MONTHS with [facility] Indication: Unspecified inflammatory polyarthropathy Vitamin D deficiency, [...] treatment Indication: DEPRESSIVE DISORDER (311.0) Planned Observations PREALBUMIN (47865)Indication: Malnutrition On: 79-Gjj-312777:05 Request MAGNESIUM (27148)Indication: Hypocalcemia On: 78-Uyy-341977:05 Request BNTP (25824)Indication: Leg swelling On: 33-Okk-811008:59 Request TSH (14047)Indication: Leg pain On: :42 Request CBC, Platelets & Auto Diff (49796)Indication: Leg pain On: :42 Request Metabolic Panel, Comprehensive (43764)Indication: Leg pain On: :42 Request Vitamin B-12 (cyanocobalamin) (37941)Indication: B12 deficiency On: 16-God-243372:55 Request CPK TOTAL & ISOENZYMES (55612)Indication: Pain in unspecified joint On: 28-Pqm-647745:03 Request URINE DELMAR CULTURE-IDENTIFICATN (72046)Indication: Dysuria On: 01-Qpm-894025:16 Request URINALYSIS (82249)Indication: Dysuria On: 18-Xzl-786259:16 Request CALCIFEDIOL (23731)Indication: Postmenopausal (Renamed from Postmenopausal status) On: 8-Nxc-675435:50 Request HPV automatic (39274)Indication: Screening for HPV (human papillomavirus) (Renamed from Encounter for screening for human papillomavirus (HPV)) On: 5-Tqt-599787:49 Request Metabolic Panel, Comprehensive (20391)Indication: DM (diabetes mellitus screen) On: :24 Request TSH (21031)Indication: Screening for deficiency anemia On: :23 Request CBC, Platelets & Auto Diff (60388)Indication: Screening for deficiency anemia On: 10-Mjp-568444:23 Request Lipid Panel (19270)Indication: Screening for hyperlipidemia On: :23 Request VITAMIN B12 AND FOLATES (93415)Indication: Leg pain On: 8-Ows-100010:27 Request HEPATIC FUNCTION PANEL (09629)Indication: Hypercholesteremia On: :15 Request CBC with manual diff (59170)Indication: Carnitine deficiency On: 85-Nzx-610038:10 Request Metabolic Panel, Comprehensive (29091)Indication: Arthritis On: 97-Xxm-044340:10 Request LIPID PANEL (15008)Indication: Hypercholesteremia On: :10 Request CBC (AUTO) (63814)Indication: FATIGUE On: :24 Request METABOLIC PANEL, COMPREHENSIVE (22884)Indication: FATIGUE On: :24 Request Folate (99366)Indication: FATIGUE On: :24 Request VITAMIN B-12 (CYANOCOBALAMIN) (84136)Indication: FATIGUE On: :24 Request TSH (99148)Indication: DEPRESSIVE DISORDER (311.0) On: 08-Rmb-489512:16 Request CBC with manual diff (65018)Indication: Myopathy NOS On: 5-Wxs-230357:03 Request Metabolic Panel, Comprehensive (73844)Indication: DEPRESSIVE DISORDER (311.0) On: 9-Dev-773394:03 Request Lipid Panel (53176)Indication: Hypercholesteremia On: 3-Hlk-732396:03 Request CALCIFEDIOL (46971)Indication: Vitamin D deficiency, unspecified On: 7-Wvz-877631:02 Request Renal function Panel (67529)Indication: Neck pain On: 50-Eki-983730:14 Request CALCIFEDIOL (21610)Indication: Vitamin D deficiency, unspecified On: 26-Jun-20099:26 Request Comments: draw Beginning September 2009 TEST - SERUM QUANTITATIVE (HCG) (08410)Indication: Abnormal blood chemistry On: 86-Njy-549404:06 Request PREGNACY TEST, URINE (80767)Indication: Abnormal blood chemistry On: 25-Ito-838973:06 Request Lipid Panel (03345)Indication: Hypercholesteremia On: 41-Nfj-534006:16 Request Comments: fasting Rapid Strep Test, Office (83869)Indication: Pharyngitis, acute On: 83-Big-947022:04 Request Thin prep Pap (73979)Indication: Well woman exam On: 69-Jxd-217225:09 Request FECAL OCCULT HGB ASSAY- tubes sent home (90065)Indication: Well woman exam On: 93-Qeq-514631:54 Request OCCULT BLOOD FECES SCREEN- card done in office (63161)Indication: Well woman exam On: 62-Dmh-525265:54 Request CPK TOTAL & ISOENZYMES (98782)Indication: Myalgia and myositis On: 51-Nrx-826135:37 Request CALCIFEDIOL (78356)Indication: Leg cramps On: 48-Rcq-289218:36 Request VITAMIN B-12 (CYANOCOBALAMIN) (57539)Indication: Pain in unspecified joint On: :35 Request PARATHORMONE (79868)Indication: Myalgia and myositis On: :35 Request RHEUMATOID FACTOR-QUANT (97689)Indication: Pain in unspecified joint On: :15 Request SED RATE ERYTHROCYTE (99578)Indication: Pain in unspecified joint On: :15 Request Planned Procedures Venous Doppler - LeftBy: Teddy BINGHAM, On: 02-May-2018 Intent Aislinn Leonard CNP Aerosol Treatment (77401)By: Teddy On: 28-Mar-2018 Intent Aislinn BINGHAM CNP, Mary E Flu Vaccine (Quadrivalent) 93522Yf: On: 28-Mar-2018 Aislinn Giron CNP, CNP, Mary E Comments: Lot #[id number]-L dltd, IMDose prefilled syringegiven by: CHRISTOPHE NoriegaVIS reviewed and ABN signed B 12 Injection, 1000 mcg (J3420)By: On: 10-Mar-2018 Intent Pamela Bates Comments: Vitamin B12 1000 mcg injectionLot--[id number]--04/2019R Delt IMpt tolerated wellCHRISTOPHE NORIEGA Solu -Medrol Injection, 125 mg On: 03-Dec-2017 Intent (J2930)By: Aislinn Espinal CNP, CNP, Mary E Radiology - Foot - LeftBy: Teddy On: 03-Dec-2017 Intent Aislinn BINGHAM CNP, Mary E Radiology - ChestBy: Aislinn Espinal CNP On: 23-Dec-2016 Intent E Aislinn Espinal CNP Ear Irrigation (36226)By: Teddy On: 18-Dec-2016 Intent Aislinn BINGHAM CNP, Mary E Wax CurettesBy: Aislinn Espinal CNP On: 18-Dec-2016 Intent Aislinn Espinal CNP Aerosol Treatment (25129)By: Teddy On: 18-Dec-2016 Intent Aislinn BINGHAM CNP, Mary E Wax CurettesBy: Pamela Bates On: 01-Dec-2016 Intent Ear Irrigation (92392)By: Paulo On: 01-Dec-2016 Intent Pamela Comments: Ear Irrigation performed on:rightAmount/color removed cerumen:small OUtcome:clear and tolerated PNEUM VAC ADLT/IMUMNOSPR, SBC/INTRM On: 19-May-2016 Intent (28966)By: Teddy Aislinn BINGHAM CNP, Mary E Flu Vaccine (Quadrivalent) 84168To: On: 12-May-2016 Intent Aislinn Espinal CNP, CNP, Mary E Comments: FLUlot: [id number]:11/04site:Lt deltoidroute:IMdose:.5mlDEMICK, MA DEXA SCAN AXIAL SKELETON (87254)By: On: 22-Apr-2016 Intent Aislinn Espinal CNP, CNP, Mary E Pap Smear, Medicare (Q0091)By: Teddy On: 22-Apr-2016 Intent Aislinn BINGHAM CNP, Mary E FLU VACCINE H1N1 (G9142)By: Teddy On: 06-Mar-2015 Intent Aislinn BINGHAM CNP, Mary E Comments: Lot:[id number]:12/19/15Dose:0.5mLRoute:IMSite:L DltdGiven By:MIKE signed ADMINISTRATION OF H1N1 INFLUENZA On: 06-Mar-2015 Intent VIRUS VACCINE (G9141)By: Teddy BINGHAMAislinn CNP, Mary E DEXA SCAN AXIAL SKELETON (03617)By: On: 06-Mar-2015 Intent Ciesa SHANK SORTER, Divya Ciesa SHANK SORTER, Divya MAMMOGRAM, SCREENING, BOTH BREAST On: 06-Mar-2015 Intent (27729)By: Swethanylakayli SHANK SORTER Aislinn Espinal CNP Aislinn Aragon ANNUAL DEPRESSION SCREENING, 15 On: 06-Mar-2015 Intent MINUTES (G0444)By: Teddy BINGHAM Aislinn Espinal CNP Aislinn Aragon Venous Doppler - LeftBy: Teddy BINGHAM, On: 29-Aug-2014 Intent Aislinn Leonard CNP MARY ALICE (Ankle Brachial Index) On: 29-Aug-2014 Intent (34630)By: Alidakayli BINGHAM Aislinn Espinal CNP Aislinn Aragon SPECIMEN HANDLING/TRANSPORT On: 16-May-2014 Intent (19155)By: Alidakayli BINGHAM Aislinn Espinal CNP Aislinn Aragon Flu Vaccine (Quadrivalent) 02334Ez: On: 19-Apr-2014 Intent Aislinn Espinal CNP, CNP Aislinn Aragon Comments: lot:[id number]:dose:0.5mLRoute: IMlocation: L armgiven by: elyse ADMINISTRATION OF INFLUENZA VIRUS On: 19-Apr-2014 Intent VACCINE (G0008)By: Mckenzie Zhao Radiology - Lumbar SpineBy: Alidakayli On: 29-Dec-2013 Intent Aislinn BINGHAM CNP, Mary E Toradol Injection, 30 mg (J1885)By: On: 29-Dec-2013 Intent Aislinn Espinal CNP, CNP, Mary E Ear Irrigation (49024)By: Eben On: 19-Apr-2013 Intent Mayela LONDONO Comments: Ear Irrigation performed on:bilateralAmount/color removed cerumen:small amount of darkl brown waxOUtcome:clearUsed wax curettes FLU VAC, SPLIT, >3 YEARS, INTRAMUSC On: 19-Apr-2013 Intent (51992)By: Pamela Crooks LPN Comments: Lot:[id number]:6.14Amt:0.5mlRoute:IMSite: L DltdGiven By: Alejandra CHAVESVIS signed IMMUNIZ ADMNIN, 1 VAC, SNGL/COMBO On: 19-Apr-2013 Intent (26671)By: Pamela Crooks LPN Wax CurettesBy: Mayela Treadwell DO On: 19-Apr-2013 Intent Eprescribed prescriptions (G8553)By: On: 19-Apr-2013 Intent Pamela Crooks DIRECTOR OF CONTENT AND PROGRAMMING B 12 Injection, 1000 mcg (J3420)By: On: 28-Dec-2012 Intent Geoff CHRISTOPHEChuyKassie B 12 Injection, 1000 mcg (J3420)By: On: 29-Nov-2012 Intent Pattie Malagon LPN Comments: Lot: [id number]: [id number]: 1000mcg/1mlRoute: IMSite: L deltoidGiven by: CHRISTOPHE Allen B 12 Injection, 1000 mcg (J3420)By: On: 26-Oct-2012 Intent Jina Gomes LPN Comments: Lot #[id number]/14Site-right deltoidDose-1 mlgiven by: Rishabh Gomes LPN B 12 Injection, 1000 mcg (J3420)By: On: 11-Oct-2012 Intent Deedee Cantrell Comments: lot: [id number]:06/03site/route: L deltoid/IMamt: 1ccVIS signed when applicableChelsANDIE vásquez B 12 Injection, 1000 mcg (J3420)By: On: 05-Oct-2012 Intent Aislinn Espinal CNP, CNP, Mary E B 12 Injection, 1000 mcg (J3420)By: On: 27-Sep-2012 Intent Valencia Renee Comments: Lot:[id number]:06/03Dose:1mlRoute:IMSite:l armGiven By:BRYNN signed IMMUNIZ ADMNIN, 1 VAC, SNGL/COMBO On: 29-Mar-2012 Intent (74461)By: Aislinn Espinal CNP Comments: lot # [id number]- 12/18/1231jvpt-WVROcwsfc-NOsvbi- 0.5 MLCHenAislinn thakur LPN, CNP MAMMOGRAM, SCREENING, BOTH BREASTS On: 29-Mar-2012 Intent (86174)By: Aislinn Espinal CNP, CNP, Mary E FLU VAC, SPLIT, >3 YEARS, INTRAMUSC On: 29-Mar-2012 Intent (53402)By: Aislinn Espinal CNP, CNP, Mary E MRI -Cervical Spine (IV Contrast On: 11-Jun-2010 Intent Needed)By: Aislinn Espinal CNP, CNP, Mary E Radiology - Cervical SpineBy: Eben On: 05-Jun-2010 Intent Mayela LONDONO Aerosol Treatment (81672)By: Teddy On: 03-Sep-2009 Intent Aislinn BINGHAM CNP, Mary E Pulse Oximetry (72364)By: Teddy BINGHAM, On: 06-May-2009 Intent Aislinn Leonard CNP Aerosol Treatment (12360)By: Teddy On: 06-May-2009 Intent Aislinn BINGHAM CNP, Mary E IMMUNIZ ADMNIN, 1 VAC, SNGL/COMBO On: 20-Mar-2009 Intent (56235)By: Aislinn Espinal CNP, CNP, Mary E FLU VAC, SPLIT, >3 YEARS, INTRAMUSC On: 20-Mar-2009 Intent (75223)By: Aislinn Espinal CNP Comments: Lot #[id number]-left deltoidgiven by:Aislinn LEMONS CNP CT - Abdomen & Pelvis (IV Contrast On: 14-Mar-2009 Intent Needed)By: Aislinn Espinal CNP, CNP, Mary E Ultrasound - PelvisBy: Teddy BINGHAM, On: 14-Mar-2009 Intent Aislinn Leonard CNP Comments: attention adrenals and ovaries SPECIMEN HNDLNG/TRNSPRT, OFFC > LAB On: 18-Jan-2009 Intent (46038)By: Aislinn Espinal CNP, CNP, Mary E DXA, BONE DENSITY, AXIAL SKELETON On: 13-Nov-2008 Intent (23192)By: Aislinn Espinal CNP, CNP, Mary E MAMMOGRAM, SCREENING, BOTH BREASTS On: 13-Nov-2008 Intent (06334)By: Aislinn Espinal CNP, CNP, Mary E ELECTROCARDIOGRAM, COMPLETE (ECG) On: 11-Oct-2008 Intent (81450)By: Aislinn Espinal CNP, CNP, Mary E Planned Medications INJECTION, KETOROLAC TROMETHAMINE, PER 15 MG Ordered: 29-Dec-2013 Pending Ailsinn Espinal CNPesa SHANK SORTER, Aislinn Aragon INJECTION, METHYLPREDNISOLONE SODIUM SUCCINATE, UP TO 125 MG Ordered: 03-Dec-2017 Pending Alidakayli BINGHAM Divya Cikathi ZACHERY, Aislinn Aragon Vitamin B-12 1000 MCG/ML Injection Solution Ordered: 27-Sep-2012 Pending Valencia Renee Vitamin B-12 1000 MCG/ML Injection Solution Ordered: 05-Oct-2012 Pending Swethanylakayli BINGHAM Divya Cinylakayli BINGHAM, Aislinn Aragon Vitamin B-12 1000 MCG/ML Injection Solution Ordered: 11-Oct-2012 Pending Deedee Cantrell Vitamin B-12 1000 MCG/ML Injection Solution Ordered: 26-Oct-2012 Pending Eliseo PARKERNJina Vitamin B-12 1000 MCG/ML Injection Solution Ordered: 29-Nov-2012 Pending Vesna DIRECTOR OF CONTENT [employer] PROGRAMMING, Pattie Vitamin B-12 1000 MCG/ML Injection Solution Ordered: 28-Dec-2012 Pending Kassie Tellez LPN Vitamin B-12 1000 MCG/ML Injection Solution Ordered: 10-Mar-2018 Pending Pamela Bates Instructions Name Dates Details Non-smoker : How to access health information online Indication: Non-smoker Non-smoker : How to access health information online - Detail Indication: Non-smoker BMI 33.0-33.9,adult : Patient Instructions Indication: BMI 33.0-33.9,adult Non-smoker : How to access health information online Indication: Non-smoker Non-smoker : How to access health information online - Detail Indication: Non-smoker Non-smoker : Patient Instructions Indication: Non-smoker Carnitine deficiency : How to access health [...] D deficiency, unspecified : DISCONTINUED - CALCIFEDIOL (59902) Indication: Vitamin D deficiency, unspecified B12 deficiency : Patient Instructions Indication: B12 deficiency Encounters Office Visit On: 24-May-2018 15:16 Encounter Reason: Follow up tests - Diagnostic tests include other (labs) and ultrasound (venous duplex lower extremity). Date: (05/11)., [ADDITIONAL REASON] Ankle Swelling - Note for Ankle swelling: Bilateral leg swelling Encounter Diagnosis: End: 24-May-2018 16:06 Non-smoker, BMI 33.0-33.9,adult, Lower extremity edema (782.3), Albuminuria [facility] Annotation/Addendum On: 11-May-2018 14:26 Encounter Diagnosis: Unspecified Diagnosis End: 11-May-2018 14:31 [facility] Office Visit On: 10-May-2018 15:30 Encounter Reason: Follow up tests - Diagnostic tests include other (labd done 05/06 and doppler done 05/10). Date: (labs 05/06 doppler 05/10). Current symptoms include other (leg pain with swelling and muscle weakness)., End: 10-May-2018 16:10 [ADDITIONAL REASON] Ankle Swelling - Note for Ankle swelling: Bilateral leg swelling Encounter Diagnosis: BMI 33.0-33.9,adult, Non-smoker, Hypocalcemia, Malnutrition, Leg swelling [facility] Annotation/Addendum On: 09-May-2018 14:49 Encounter Diagnosis: Hypocalcemia End: 09-May-2018 22:12 [facility] Office Visit On: 02-May-2018 14:07 Encounter Reason: [...] for Shingles: follow up ER visit from [facility] End: 08-May-2015 12:08 nations secondary from oxycontin [...] patient does not have durable power of attorney at law or living will. The patient has noticed feeling helpless (feels depressed jasiel etimes). Other providers contributing to the patient's care are shower maid (Dr Genao) and other: (Neuro Danielle Mariee at [facility]).Encounter Diagnosis: Annual Medicare Physical (V70.0), Breast cancer [...] patient does not have durable power of attorney at law or living will. The patient has noticed staying at home rather than doing something new or going out and lack of energy. Other providers contributing to the patient's care are shower maid and other: (neuromuscular specKraig Manriquez). [facility] [...] keep the care continum I was at [facility] yesterday Encounter Diagnosis: DEPRESSIVE DISORDER (311.0), Myopathy [...]
--- OUTSIDE RECORDS SUMMARY | 2018-07-15 04:42 | XMS RPT_ITS | Continuity of Care Document ---
:1950 Author Organization [facility] Address [address] [place] [address] Phone Care Team Providers Name Role Phone Teddy ZACHERYAislinn Unavailable Rashawn Garcia DO Unavailable Vaishnavi Dietz Unavailable Arlin Mondragon Unavailable Gravius, Julia Unavailable Unavailable Diamante Juarez LPN Unavailable Unavailable Katy Reyes Unavailable Unavailable Unavailable Unavailable Problems Name Dates [...] [address] Steinberg Status: Active Malnutrition (E46, 263.9) Comments: albumin 2.7 to 3.1 Status: Active MITRAL VALVE DISORDER, NOS (424.0) Status: Active Myalgia and myositis (729.1) Comments: seeing Dr. Manriquez at [facility] getting carotene weekly IV twice [...] days Quantity: 60 {Tablet} Refills: 0 Ordered:02-May-2018 aKty Reyes Start : 28-Mar-2018 Active NASACORT AQ, 55MCG/ACT (Nasal Aerosol Solution) 2 (two) sprays qd -each nostril for 0 days Quantity: 1 {Aerosol_Soln} Refills: 0 Ordered:19-Apr-2013 Mayela Treadwell DO Start : 19-Apr-2013 Active Norvasc 5 MG Oral Tablet 1 (one) Tablet daily for 0 days Quantity: 30 {Tablet} Refills: 3 Ordered:15-Apr-2018 Teddy BINGHAM, Aislinn Boo CNP, Aislinn Aragon [...] Aragon Start : 19-May-2016 Active Comments:oredered by Velenieliezer TRAZODONE HCL, 50MG (Oral Tablet) 1 Tablet [...] Quantity: 20 {Tablet_ER_24HR} Refills: 0 Ordered:09-Aug-2009 Teddy BINGHAM Aislinn Matamoros CNP Start : 09-Aug-2009 End : 19-Aug-2009 Inactive Cefdinir 300 MG Oral Capsule 1 (one) Capsule bid for 7 days Quantity: 14 {Capsule} Refills: 0 Ordered:08-Feb-2018 Teddy BINGHAM Aislinn Matamoros CNP Start : 08-Feb-2018 End [...] : 18-Dec-2016 End : 28-Dec-2016 Inactive ERGOCALCIFEROL, 84352CZBN (Oral Capsule) 1 (one) Capsule twice weekly [...] 3 days then 1 tab tid NYSTATIN, 499994NTEB/ML (Mouth/Throat Suspension) 4 Milliliter qid for 7 days Quantity: 1 {qs} Refills: 0 Ordered:23-Dec-2010 Teddy GEOLOGICAL AIDE, Aislinn KATHEluca GEOLOGICAL AIDE, Divya Start : 23-Dec-2010 End : 30-Dec-2010 [...] for 0 days Refills: 0 Ordered:25-Oct-2008 Aislinn Espinal CNP, CNP, Mary E Start : 25-Oct-2008 [...] 11-Apr-2012 End : 11-Oct-2015 Discontinued VITAMIN D, 06624ENVD (Oral Capsule) 1 (one) Capsule twice weekly [...] Operative Report Result: Comments: See Note; NOTES: [facility] Medical Records Department [address] [place] [address] Operative Report 01/25/18 1254 MR#: [id number] Acct: [id number] Name: HANNA CHAVEZ Rep #: [id number] : 1950 67 From: Vaishnavi Dietz MD PCP: Aislinn Espinal NP Status: [facility] [place] Location: [place] [address] Problem List (1) Urinary tract infection Status: Acute Report of Operation Date of Procedure: 01/25/18 Pre-Operative Diagnosis: urinary tract infection, pelvic pain Post-Operative Diagnosis: same and rectocele Surgery/Procedure Performed:: cystoscopy and pelvic exam under anesthesi a Description of Surgical Findings:: normal cystoscopy. very short anterior vaginal wall. grade 3 rectocele. atrophy. wood preparation supervisor: Vaishnavi Dietz Type of Anesthesia:: MAC Specimen's [...] Date Vaishnavi Dietz MD CC: Aislinn Espinal NP; Vaishnavi Dietz MD Signed 25-Jan-2018 Discharge Instruction Result: Comments: See Note; NOTES: [facility] Medical Records Department [address] [place] [address] Instructions for Home/Discharge Instructions 01/25/18 1228 MR#: [id number] Acct: [id number] Name: HANNA CHAVEZ Rep #: [id number] : 1950 67 From: Vaishnavi Dietz MD PCP: Aislinn Espinal NP Status: [facility] Discharge Diet: No Restrictions Discharge Activity: Return [...] DAILY 05/23/13 Triamcinolone Acetonide [Nasacort Aq Nasal [place]] 2 spray NASAL DAILY PRN 05/23/13 Levocarnitine [...] and Bladder Result: Comments: See Note; NOTES: [facility] Imaging Services [address] [place] [address] Kidney and Bladder MR#: [id number] Acct: [id number] Name: HANNA CHAVEZ Rep #: [id number] DO B: 1950 F 67 From: Tee Weems PCP: Aislinn Espinal NP Status: REG CLI Study: Kidney and Bladder Date of Exam: 01/17/18 Exam# [id number] Ordering Dr: Vaishnavi Dietz MD STUDY: RENAL [...] CC: Aislinn Espinal NP; Vaishnavi Dietz MD Senior Manager Asset Protection: Signed 29-Dec-2017 Transvaginal Non- Result: Comments: See Note; NOTES: [facility] Imaging Services [address] [place] [address] Transvaginal Non- MR#: [id number] Acct: [id number] Name: HANNA CHAVEZ Rep #: [id number] : 1950 F 67 From: Jacky Hanson MD PCP: Teddy LUGO, Aislinn Status: REG CLI Study: Transvaginal Non- Date of Exam: 12/29/17 Exam# [id number] Ordering Dr: Vaishnavi Dietz MD STUDY: U [...] CC: Aislinn Espinal NP; Vaishnavi Dietz MD Senior Manager Asset Protection: Signed 09-Dec-2017 Downtime Report Result: Comments: See Note; NOTES: [facility] Medical Records Department [address] [place] [address] Downtime Report MR#: [id number] Acct: [id number] Name: HANNA CHAVEZ Rep #: [id number] : 1950 67 From: Elmer Moreno PCP: Aislinn Espnial NP Status: REG CLI This patient was seen during an EMR downtime November 22, 2017 - November 29, 2017. This patient may have a combination of paper and electronic documentation or all paper documentation. All documentation is viewable within the e-chart portion of [facility] for each patient visit. 09-Dec-2017 Downtime Report Result: Comments: See Note; NOTES: [facility] Medical Records Department [address] [place] [address] Downtime Report MR#: [id number] Acct: [id number] Name: HANNA CHAVEZ Rep #: [id number] : 1950 67 From: Elmer Moreno PCP: Aislinn Espinal NP Status: REG CLI This patient was seen during an EMR downtime November 22, 2017 - November 29, 2017. This patient may have a combination of paper and electronic documentation or all paper documentation. All documentation is viewable within the e-chart portion of [facility] for each patient visit. 03-Dec-2017 Foot min 3 Views Result: Comments: See Note; NOTES: [facility] Imaging Services [address] [place] [address] Foot min 3 Views MR#: [id number] Acct: [id number] Name: HANNA CHAVEZ Rep #: [id number] : 1950 F 67 From: Yahir Wolfe MD PCP: Aislinn Espinal NP Status: REG CLI Study: Foot min 3 Views Date of Exam: 12/03/17 Exam# [id number] Ordering Dr: Aislinn Espinal STUDY: X-RAY - [...] Service support , CC: Aislinn Espinal NP Senior Manager Asset Protection: Signed 23-Dec-2016 Chest PA and Lateral Result: Comments: See Note; NOTES: [facility] Imaging Services [address] [place] [address] Veribis 4d Chest PA and Lateral MR#: [id number] Acct: [id number] Name: HANNA CHAVEZ Rep #: [id number] : 1950 F 66 From: Juan Woody MD PCP: Aislinn Espinal Status: REG CLI Study: Chest PA and Lateral Date of Exam: 12/23/16 Exam# [id number] Ordering Dr: Danielle Manriquez MD STUDY: X-RAY [...] , Service support , CC: Aislinn Manriquez Senior Manager Asset Protection: Signed 05-Jul-2016 Discharge Instruction Result: Comments: See Note; NOTES: [facility] Medical Records Department [address] [place] [address] Discharge Instruction 07/05/162116 MR#: [id number] Acct: [id number] Name: JOSH CHAVEZ J Rep #: [id number] : 1950 66 From: Sarabjit Salinas MD [...] your Primary Care Provider. Call [facility] ([phone]) or report to the closest Emergency Room. Call 911 if necessary. 07/05/16 <Electronically signed by Sarabjit Salinas MD> Date Sarabjit Salinas MD Cosigner Signature (If Indicated): Date CC: Aislinn Espinal 05-Jul-2016 Emergency Department Summary Result: Comments: See Note; NOTES: [facility] Medical Records Department [address] [facility] [address] Emergency Department Summary 07/05/16 2114 MR#: [id number] Acct: [id number] Name: HANNA CHAVEZ Rep #: [id number] : 1950 66 From: Sarabjit Salinas MD [...] your Primary Care Provider. Call [facility] ([phone]) or repor t to the closest Emergency Room. Call 911 if necessary. 07/05/162116 <Electronically signed by Sarabjit Salinas MD> Date Sarabjit Salinas MD Cos igner Signature (If Indicated): Date CC: Aislinn Espinal 16-Apr-2015 Emergency Department Summary Result: Comments: See Note; NOTES: [facility] Medical Records Department [address] [place] [address] Emergency Department Summary MR#: [id number] Acct: [id number] Name: HANNA CHAVEZ Rep #: [id number] : 1950 64 From: Breanna Ryan MD [...] was at 3:00 a.m. She comes in [facility] for pain control. PHYSICAL EXAMINATION: VITAL [...] pain. Breanna Ryan MD T: NTS JOB: [id number] 04/16 2359 <Electronically signed by Breanna Ryan MD> Date Breanna Ryan MD Cosigner Signature (If Indicated): Date _ CC: Carla Hughes MD Date Dictated: 04/15/15816 Date Transcribed: 04/15/15816 Senior Manager Asset Protection: Signed 15-Apr-2015 Discharge Instruction Result: Comments: See Note; NOTES: [facility] Medical Records Department [address] [place] [address] Discharge Instruction 04/15/15808 MR#: [id number] Acct: [id number] Name: HANNA CHAVEZ Rep #: [id number] : 1950 64 From: Breanna Ryan MD [...] problems, contact your doctor. Call [facility] ([phone]) or report to the closest Emergency Room. Call 911 if necessary. 04/15/15817 <Electronically signed by Breanna Ryan MD> Date Breanna Ryan MD Cosigner Signature (If Indicated): Date CC: Carla Hughes MD 03-Dec-2014 Emergency Department Summary Result: Comments: See Note; NOTES: [facility] Medical Records Department [address] [place] [address] Emergency Department Summary MR#: [id number] Acct: [id number] Name: HANNA CHAVEZ Rep #: [id number] : 1950 64 From: Shruthi Savage DO PCP: Carla Hughes MD Status: [facility] ER DATE OF SERVICE: 11/15/2014 CHIEF COMPLAINT: [...] Hughes. 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 [...] EMERGENCY DEPARTMENT COURSE: EKG obtained on ar missyl showed a sinus rhythm with a rate [...] condition. Shruthi Savage DO T: NTS JOB: [id number] 12/03/14 2329 <Electronically signed by Shruthi Savage DO> Date Thalia Savage DO CC: Carla Hughes MD Date Dictated: 11/15/141931 Date Transcribed: 11/15/141931 Senior Manager Asset Protection: Signed 16-Nov-2014 12 Lead Electrocardiogram Result: Comments: See Note; NOTES: [facility] Cardiovascular Services [address] [place] [address] 12 Lead EKG 11/15/14 1626 MR#: [id number] Acct: [id number] Name: HANNA CHAVEZ Rep #: [id number] : 1950 64 From: Lamont Lucas MD [...] Hanna l ECG Confirmed by LAMONT LUCAS ([id number]), editor producer LAKIA MORENO ([id number]) on 11/16/2014 10:58:54 AM Referred By: JERE Confirmed By:LAMONT LUCAS 11/16/14 1059 Date Lamont Lucas MD CC: Carla Hughes MD Date Dictated: 11/15/141625 Date Transcribed: 11/15/141625 Senior Manager Asset Protection: Signed 15-Nov-2014 Discharge Instruction Result: Comments: See Note; NOTES: [facility] Medical Records Department [address] [place] [address] [place] [address] Discharge Instruction 11/15/141924 MR#: [id number] Acct: [id number] Name: HANNA CHAVEZ Rep #: [id number] : 1950 64 From: Shruthi Savage DO [...] problems, contact your doctor. Call [facility] ([phone]) or report to the [facility] Emergency Room. Call 911 if necessary. 11/15/141927 <Electronically signed by Shruthi Savage DO> Date Shruthi Iniguez signer Signature (If Indicated): Date CC: Carla Hughes MD 15-Nov-2014 CTA Chest W/WO Contrast Result: Comments: See Note; NOTES: [facility] Imaging Services [address] [place] [address] CAT Scan Report MR#: [id number] Acct: [id number] Name: HANNA CHAVEZ Rep #: [id number] : 1950 F 64 From: Chele Puckett MD PCP: Carla Hughes MD Status: REG ER Study: CTA Chest W/WO Contrast Date of Exam: 11/15/14 Exam# [id number] Ordering Dr: Shruthi Savage DO STUDY: CTA [...] MD at 19:05 EDT , Service support [phone], CC: Carla Hughes MD; Shruthi Savage DO Senior Manager Asset Protection: Signed 15-Nov-2014 Chest PA and Lateral Result: Comments: See Note; NOTES: [facility] Imaging Services [address] [place] [address] Radiology Report MR#: [id number] Acct: [id number] Name: HANNA CHAVEZ Rep #: [id number] : 1950 F 64 From: Martín Morales MD PCP: Carla Hughes MD Status: DEP ER Study: Chest PA and Lateral Date of Exam: 11/15/14 Exam# [id number] Ordering Dr: Shruthi Savage DO STUDY: X- [...] Martín Morales MD at 9:28 EDT Tel [phone], Service support [phone], 0062 RAD/Chest PA and Lateral IMPRESSION: No acute abnormality is seen. Electronically Signed: Martín Morales MD at 9:28 EDT Tel [phone], Service support [phone], CC: Carla Hughes MD; Shruthi Savage DO Senior Manager Asset Protection: Signed 29-Dec-2013 L/S Spine Min 4 Views Result: Comments: See Note; NOTES: [facility] Imaging Services [address] [place] [address] Radiology Report MR#: [id number] Acct: [id number] Name: HANNA CHAVEZ Rep #: [id number] : 1950 F 63 From: Nirmal Watts PCP: Carla Hughes MD Status: REG CLI Study: L/S Spine Min 4 Views Date of Exam: 12/29/13 Exam# [id number] Ordering Dr: Carla Hughes MD STUDY: X-RAY [...] DO at 23:38 EDT , Service support [phone], CC: Carla Hughes MD Senior Manager Asset Protection: Signed Immunization Name Dates Details Influenza (3 years and up) on: 20-Mar-2009 Comments: Lot #[id number] deltoidgiven by:CDH Family History Unknown Family Member Name Dates Details No Known Family History Status: Active Social History Name Dates Details Tobacco use: Never smoker. Status: Active Smoking Status Name Dates Details Never smoker Vital Signs Date Test Result Details :36 Temperature 97.8 f Comments: Method: Temporal [...] 1.92 m2 :31 Comments[facility] 97.2 f Pulse 86 /min Comments: [...] 0.00 cm Results Date Description Value Details 31-Baj-169361:04 CBC W/Diff, Automated Comments: [facility] [address] [place], [address] Absolute Lymph 1.95 {X10_3/ul} (Normal) Range: 0.83-4.51 [...] 4.2-5.4 WBC 6.5 K/mm3 (Normal) Range: 4.4-11.0 57-Mze-217275:04 Comprehensive Metabolic Profil Comments: [facility] [address] [place], [place], [phone] GAP 5 (Normal) Range: 5-15 CO2 26.0 [...] Comments: Please note revised GLUCOSE reference range kxtxtzyij15/02/2018. 52-Vvm-796826:32 CBC W/Diff, Automated Comments: [facility] [address] [place], [address] Absolute Lymph 1.39 {X10_3/ul} (Normal) Range: 0.83-4.51 [...] 4.2-5.4 WBC 4.9 K/mm3 (Normal) Range: 4.4-11.0 29-Cpl-969236:32 Comprehensive Metabolic Profil Comments: Comments: [facility] [address] [place], [address] GAP 6 (Normal) Range: 5-15 CO2 [...] Comments: Please note revised GLUCOSE reference range crktgouso71/02/2018. 01-Ulk-356282:32 Thyroid Stim Hormone (TSH) Comments: Comments: [facility] [address] [place], [id number] TSH 1.47 {uIU/mL} (Normal) Range: 0.358-3.74 14-Glw-972952:51 Vitamin B12 > 2000 pg/mL (Abnormal) Comments: [facility] [address] [place], [id number] Range: 211-911 61-Vth-416433:11 CBC W/Diff, Automated Comments: [facility] [address] [place], [address] Absolute Lymph 1.66 {X10_3/ul} (Normal) Range: [...] 4.2-5.4 WBC 5.9 K/mm3 (Normal) Range: 4.4-11.0 82-Xqw-515615:11 Comprehensive Metabolic Profil Comments: [facility] [address] [place], [id number] GAP 8 (Normal) Range: 5-15 CO2 26.0 [...] Comments: Please note revised GLUCOSE reference range srkulcxbr40/02/2018. 94-Yum-193594:47 Culture, Urine Comments: [facility] [address] [place], [place], [id number] CUUR See Note (Normal) Comments: Urine CultureORGANISM 1: Mixed Gram Pos AND Gram Neg OrgColony Count 50,000-80,000MIX CULTURE Mixed contaminants. Submit a new specimen if indicated. 72-Tlq-021259:47 Urinalysis, Complete Comments: How was Urine Obtained? [facility] [address] [place], [place], [address] MUCUS, URINE 0 SEEN {/hpf} (Normal) BACTERIA [...] BELOW (Normal) Comments: Visual Urine Color: GREEN 97-Vxa-173888:41 TSH (57683) Comments: PATIENT NOT FASTINGPERFORMED BY: [facility] SystemsNov[facility] [id number] TSH 2.310 {uIU/mL} (Normal) Range: 0.450-4.500 86-Lxg-771985:28 URINE DELMAR CULTURE-IDENTIFICATN Comments: PATIENT NOT FASTINGPERFORMED BY: [facility] Havs[facility] DelikatesserNov[facility] [id number] Information: SRC:UR (93540) Result 1 MUG (Normal) Comments: Mixed urogenital flora1,000 Colonies/mL Urine Culture,Comprehensive Final report (Normal) 90-Hxr-947909:41 Metabolic Panel, Comprehensive Comments: PATIENT NOT FASTINGPERFORMED BY: [employer]70 Havsjo DelikatesserNovant [facility] [id number] (27981) ALT (SGPT) 16 [iU]/L (Normal) Range: 0-32 [...] 8-27 Glucose 89 mg/dL (Normal) Range: 65-99 74-Ukd-328597:02 Urinalysis, Office (66232) UA - LEUKOCYTE ESTERASE Small (Normal) UA - NITRITE Negative (Normal) URINE UROBILINGN JEROME TIMED Normal mg/dL (Normal) UA - PROTEIN Negative mg/dL (Normal) UA - PH 7.5 (Normal) UA - BLOOD Negative (Normal) UA - SPECIFIC GRAVITY 1.020 (Normal) UA - KETONES Negative mg/dL (Normal) UA - BILIRUBIN Negative (Normal) UA - GLUCOSE Negative (Normal) 26-Sxp-993312:54 LDH (LD) (LACTATE DEHYDROGENASE) Comments: PATIENT NOT FASTINGPERFORMED BY: [facility] [address]pm4639 [facility] [id number] (40073) LDH 191 [iU]/L (Normal) Range: 119-226 11-Sgd-679024:54 RHEUMATOID FACTOR-QUANT (29081) Comments: PATIENT NOT FASTINGPERFORMED BY: [facility] [address] [facility] [id number] RA Latex Turbid. <10.0 {IU/mL} (Normal) Range: 0.0-13.9 00-Tww-789368:54 C-Reactive Protein (59243) Comments: PATIENT NOT FASTINGPERFORMED BY: [facility]6370 [facility] [id number] C-Reactive Protein, Quant 6.1 mg/L (Abnormal) Range: 0.0-4.9 12-Bda-743341:54 SED RATE ERYTHROCYTE (22080) Comments: PATIENT NOT FASTINGPERFORMED BY: [facility]6370 [facility] [id number] Sedimentation Rate-Westergren 16 mm/h (Normal) Range: 0-40 6-Itv-381024:40 CPK Total, Creatine Kinase Comments: 48[facility] [address] [place], [place], [phone] CPK TOTAL 68 U/L (Normal) Range: 26-192 92-Pcr-665605:12 Culture, Urine Comments: [facility] [address] [place], [place], [id number] CUUR See Note (Normal) Comments: Urine CultureORGANISM [...] <=20 S(NF) indicates non-formulary drug at [facility]. Approval by Infectious Disease Specialist required before non- formulary drugs may be ordered and/or dispensed. 21-Mtv-822843:12 Urinalysis, Routine (Dipstick) Comments: How was Urine Obtained? [facility] [address] [place], [address] LEUK ESTERASE 500 /ul (Abnormal) OCCULT BLOOD-UR 50 /ul (Abnormal) NITRITE UR Positive (Abnormal) UROBILI Normal mg/dL (Normal) PROT DIPSTX 100 mg/dL (Abnormal) pH UR 6.0 (Normal) Range: 5.0 - 8.0 SP.GR. DIPSTX 1.025 (Normal) Range: 1.002-1.030 KETONE UR Negative mg/dL (Normal) BILIRUBIN URINE Negative mg/dL (Normal) GLUCOSE, UR Normal mg/dL (Normal) CLARITY Cloudy (Normal) COLOR Yellow (Normal) 10-Zsg-457109:15 CBC W/Diff, Automated Comments: [facility] [address] [place], [address] Absolute Lymph 1.50 {X10_3/ul} (Normal) Range: 0.83-4.51 [...] 4.2-5.4 WBC 4.6 K/mm3 (Normal) Range: 4.4-11.0 15-Kqg-087517:15 Comprehensive Metabolic Profil Comments: [facility] [address] [place], [address] GAP 7 (Normal) Range: 5-15 CO2 28.0 mmol/L (Normal) Range: 21.0-32.0 CL 106 mmol/L (Normal) Range: 98-107 K 3.6 mmol/L (Normal) Range: 3.5-5.1 NA 141 mmol/L (Normal) Range: 136-145 T BILI 0.60 mg/dL (Normal) Range: 0.20-1.00 ALT 27 U/L (Normal) Range: 13-56 Comments: Please note revised ALT reference range momsxhmpx00/28/2018. ALK P 68 U/L (Normal) Range: 45-117 [...] A.D.A. criteria.Please note revised GLUCOSE reference range xdevxlfxx98/02/2018. 5-Sys-674157:59 CPK Total, Creatine Kinase Comments: [facility] [address] [place], [phone] CPK TOTAL 55 U/L (Normal) Range: 26-192 2-Doa-530512:59 GGTP 140 U/L (Abnormal) Comments: [facility] [address] [place], [id number] Range: 5-55 :50 CBC W/Diff, Automated Comments: [facility] [address] [place], [place], [id number] Absolute Lymph 1.40 {X10_3/ul} (Normal) Range: 0.83-4.51 [...] Range: 4.4-11.0 24-Jun-20179:50 Comprehensive Metabolic Profil Comments: [facility] [address] [place], [place], [id number] GAP 7 (Normal) Range: 5-15 CO2 28.0 [...] <126 mg/dLsuggests IMPAIRED HOMEOSTASIS per A.D.A. criteria. 08-Vue-541402:00 CBC W/Diff, Automated Comments: [facility] [address] [place], [place], [phone] ; Dr Fiore Absolute Lymph 1.66 {X10_3/ul} [...] 4.2-5.4 WBC 5.2 K/mm3 (Normal) Range: 4.4-11.0 53-Wvh-491051:00 Comprehensive Metabolic Profil Comments: [facility] [address] [place], [place], [address] GAP 5 (Normal) Range: 5-15 CO2 27.0 [...] 7-18 GLU 106 mg/dL (Normal) Range: 70-110 25-Hrn-729980:00 CBC W/Diff, Automated Comments: [facility] [address] [place], [place], [phone] ; rheum Absolute Lymph 1.83 {X10_3/ul} (Normal) [...] 4.2-5.4 WBC 5.8 K/mm3 (Normal) Range: 4.4-11.0 33-Asd-638359:00 Comprehensive Metabolic Profil Comments: [facility] [address] [place], [place], [id number] ; Dr moreno GAP 7 (Normal) Range: [...] 7-18 GLU 98 mg/dL (Normal) Range: 70-110 :39 CBC W/Diff, Automated Comments: [facility] [address] [place], [address] SMEAR COMMENT SCANNED (Normal) Absolute Lymph 0.54 [...] 4.2-5.4 WBC 11.4 K/mm3 (Abnormal) Range: 4.4-11.0 97-Ric-732301:39 Comprehensive Metabolic Profil Comments: [facility] [address] [place], [place], [phone] GAP 10 (Normal) Range: 5-15 CO2 23.0 [...] 126 mg/dLsuggests DIABETES MELLITUS per A.D.A. criteria. 69-Dgl-238216:39 Lipase Comments: [facility] [address] [place], [phone] LIPASE 86 U/L (Normal) Range: 73-393 :01 Pap IG (Image Comments: Source.............Cervix;EndocervixNo. of containers..01 CYTYC Thin Prep VialPATIENT NOT FASTINGPERFORMED BY: =G [facility] Chrissie Zambrano W [id number] BY: [facility] Gu[facility]) karoline Zambrano W [id number] Note: PAPSMR (Normal) Comments: The Pap smear [...] metaplasticcells (endocervical component) are present.Z01.419CyAlek Fraser totechnologist (ASCP) :01 Thin prep Pap Comments: Source.............Cervix;EndocervixNo. of containers..01 CYTYC Thin Prep VialPATIENT NOT FASTINGPERFORMED BY: =G [facility] Chrissie Zambrano W [id number] BY: [place] Software (99392) (no STD Chrissie Zambrano W [id number] Information: [id number]; ov in 2 weeks testing) Age Gdln ACOG Testing AGE4 (Normal) Comments: <21 or >65 or no age provided 39-Ujb-357663:55 CBC W/Diff, Automated Comments: [facility] [address] [place], [address] Absolute Lymph 1.88 {X10_3/ul} (Normal) [...] 4.2-5.4 WBC 5.7 K/mm3 (Normal) Range: 4.4-11.0 97-Wgv-040157:55 Comprehensive Metabolic Profil Comments: [facility] [address] [place], [address] GAP 7 (Normal) Range: 5-15 CO2 28.0 [...] 7-18 GLU 84 mg/dL (Normal) Range: 70-110 52-Mvl-934222:52 CBC W/Diff, Automated Comments: [facility] [address] [place], [place], [id number] Absolute Lymph 1.74 {X10_3/ul} (Normal) Range: 0.83-4.51 [...] 4.2-5.4 WBC 5.0 K/mm3 (Normal) Range: 4.4-11.0 15-Ifj-708446:52 Comprehensive Metabolic Profil Comments: [facility] [address] [place], [address] GAP 6 (Normal) Range: 5-15 CO2 29.0 [...] 7-18 GLU 107 mg/dL (Normal) Range: 70-110 78-Qlv-696347:52 Vitamin D,25 Hydroxy Comments: [facility] [address] [place], [address] Vitamin D 25-OH 23.6 ng/mL (Normal) Comments: Vitamin D 25(OH) Status Range Deficiency <20 ng/mL (50nmol/L) Insuffciency 20 - 30 ng/mL (50 - 75 nmol/L) Sufficiency 30 - 100 ng/mL (75 - 250 nmol/L) Toxicity >100 ng/mL (>250 nmol/L) 00-Iut-724292:34 URINE DELMAR CULTURE-JEROME COL Comments: PATIENT NOT FASTINGPERFORMED BY: [facility] Xnpckn8896 [facility] [id number] Information: SRC:[facility] [id number] COUNT ([id number]) Result 1 MUG (Normal) Comments: Mixed urogenital floraGreater than 100,000 colony forming units per mL Urine Culture,Comprehensive Final report (Normal) 68-Xqv-947449:21 Urinalysis, Office (44240) UA - LEUKOCYTE ESTERASE Trace (Normal) UA - NITRITE Negative (Normal) URINE UROBILINGN JEROME TIMED Normal mg/dL (Normal) UA - PROTEIN Negative mg/dL (Normal) UA - PH 6.0 (Normal) Comments: 5.5 UA - BLOOD Negative (Normal) UA - SPECIFIC GRAVITY 1.030 (Abnormal) UA - KETONES Negative mg/dL (Normal) UA - BILIRUBIN Negative (Normal) UA - GLUCOSE Negative (Normal) 37-Ibl-836537:10 CBC W/Diff, Automated Comments: [facility] [address] [place], [address] Absolute Lymph 1.44 {X10_3/ul} (Normal) [...] 4.2-5.4 WBC 4.3 K/mm3 (Abnormal) Range: 4.4-11.0 29-Zzs-936935:10 Comprehensive Metabolic Profil Comments: [facility] [address] [place], [place], [address] GAP 3 (Abnormal) Range: 5-15 CO2 28.0 [...] 126 mg/dLsuggests DIABETES MELLITUS per A.D.A. criteria. 48-Byh-354570:10 Vitamin D,25 Hydroxy Comments: [facility] Hdvjhbnhsd1624 [facility]. [place], [place], [id number] Vitamin D 25-OH 20.8 ng/mL (Normal) Comments: Vitamin D 25(OH) Status Range Deficiency <20 ng/mL (50nmol/L) Insuffciency 20 - 30 ng/mL (50 - 75 nmol/L) Sufficiency 30 - 100 ng/mL (75 - 250 nmol/L) Toxicity >100 ng/mL (>250 nmol/L) 87-Gcb-699183:16 CBC W/Diff, Automated Comments: [facility] Hqtgpprhwa9271 [facility]. [place], [place], [address] ; ordered by another doctor Absolute Lymph [...] 4.2-5.4 WBC 5.1 K/mm3 (Normal) Range: 4.4-11.0 50-Fmy-785296:16 Comprehensive Metabolic Profil Comments: [facility] [address] [place], [place], [address] ; ordered by another doctor GAP 7 [...] 7-18 GLU 87 mg/dL (Normal) Range: 70-110 37-Bgu-055774:16 Vitamin D,25 Hydroxy Comments: [facility] [address] [facility] [address] [place], [id number] ; ordered by another doctor Vitamin D 25-OH 33.2 ng/mL (Normal) Comments: Vitamin D 25(OH) Status Range Deficiency <20 ng/mL (50nmol/L) Insuffciency 20 - 30 ng/mL (50 - 75 nmol/L) Sufficiency 30 - 100 ng/mL (75 - 250 nmol/L) Toxicity >100 ng/mL (>250 nmol/L) 1-Hrq-344632:22 CBC W/Diff, Automated Comments: [facility] [address] [facility] [place], [address] Absolute Lymph 1.19 {X10_3/ul} (Normal) Range: 0.83-4.51 [...] 4.2-5.4 WBC 4.6 K/mm3 (Normal) Range: 4.4-11.0 5-Wyz-338418:22 Comprehensive Metabolic Profil Comments: [facility] [address] [place], [place], [address] GAP 3 (Abnormal) Range: 5-15 CO2 29.0 [...] 7-18 GLU 100 mg/dL (Normal) Range: 70-110 6-Pwc-546457:22 Lipid Profile Comments: [facility] Lyzbcwlxmz5758 [facility]. [place], [place], [address] VLDL 16 mg/dL (Normal) Range: 5-40 LDL [...] 200-240 mg/dL Borderline >240 mg/dL High Risk 0-Ppo-279109:22 Thyroid Stim Hormone (TSH) Comments: [facility] Wnug[address]vy4460 [facility] [place], [address] TSH 1.39 {uIU/mL} (Normal) Range: 0.358-3.74 58-Rrs-331490:30 CBC W/Diff, Automated Comments: Comments: IVT TO DRAW OFF PORTHas pt arrived? YTest performed at:[facility] Jtpbbahphj1200 [facility] [place] [address] Absolute Lymph 1.56 {X10_3/ul} (Normal) [...] 4.2-5.4 WBC 4.7 K/mm3 (Normal) Range: 4.4-11.0 13-Smz-207542:30 Comprehensive Metabolic Profil Comments: Has pt arrived? YComments: IVT TO DRAW FROM PORTTest performed at:[facility] [address] [place] [address] GAP 8 (Normal) Range: 5-15 CO2 27.0 [...] Comments: Please note revised CREATININE reference range ynsumrnpl60/22/2015. BUN 21 mg/dL (Abnormal) Range: 7-18 GLU 133 mg/dL (Abnormal) Range: 70-110 Comments: Fasting Glucose result greater than or equal to 126 mg/dLsuggests DIABETES MELLITUS per A.D.A. criteria. 88-Fzz-322436:30 Vitamin D,25 Hydroxy Comments: Has pt arrived? YTest performed at:[facility] [address] [place] [address] Vitamin D 25-OH 22.5 ng/mL (Normal) Comments: Vitamin D 25(OH) Status Range Deficiency <20 ng/mL (50nmol/L) Insuffciency 20 - 30 ng/mL (50 - 75 nmol/L) Sufficiency 30 - 100 ng/mL (75 - 250 nmol/L) Toxicity >100 ng/mL (>250 nmol/L) 42-Tlj-501753:42 D-Dimer Quantitative (DVT/PE) Comments: Test performed at:[facility] [address] [place] [address] D-DIMER QUANT 0.54 {FEU/ug/m} (Abnormal) Range: 0.27-0.49 Comments: D-Dimer ELEVATED (>0.49): Additional studies and clinicalassessments are indicated to conclude diagnosis of:Deep Vein Thrombosis (DVT) or Pulmonary Embolism (PE)CRITICAL VALUE CALLED TO WICUXQAHQ82/2 02/02 Ashish Griffin.RESULTS READ BACK BY SAME . 40-Kgn-189068:39 Lipase Comments: Test performed at:[facility] [address] [place] [address] LIPASE 96 U/L (Normal) Range: 70-290 71-Qev-543546:22 BNP,B-Type NATRIURETIC PEPTIDE Comments: Test performed at:[facility] [address] [facility] [place] [address] B-TYPE FATOUMATA PEP 124.8 pg/mL (Abnormal) Range: 0-100 01-Sqg-629235:22 CBC W/Diff, Automated Comments: Test performed at:[facility] [address] [place] [address] Absolute Lymph 2.09 {X10_3/ul} (Normal) [...] 4.2-5.4 WBC 5.9 K/mm3 (Normal) Range: 4.4-11.0 33-Tzl-809121:22 CK-MB Quantitative and Index Comments: Test performed at:[facility] [address] [place] [address] CPKMB 0.7 ng/mL (Normal) Range: 0.0-5.0 Comments: CK-MB and RI Interpretation MB Relative Index Non-AMI <or= 5 NA Indeterminate > 5 <or= 4 AMI > 5 > 4 CPK TOTAL 97 U/L (Normal) Range: 26-192 91-Fey-692917:22 Comprehensive Metabolic Profil Comments: 'TROP' Serial specimen #1, #2, #3, or #4: 1Test performed at:[facility] [address] [place], [place] [address] GAP 9 (Normal) Range: 5-15 CO2 25.0 [...] 126 mg/dLsuggests DIABETES MELLITUS per A.D.A. criteria. 60-Awg-737721:22 Troponin-I Comments: 'TROP' Serial specimen #1, #2, #3, or #4: 1Test performed at:[facility] Rfrlpnxmsg6304 [facility] [address] TROPONIN-I < 0.02 ng/mL (Normal) Comments: TROPONIN-I EXPECTED VALUES <0.05 NEGATIVE 0.06 - 0.59 AT RISK OF SD > OR = 0.60 SUGGEST SD 01-Tff-160074:20 Urinalysis, Complete Comments: Order Date: 11/15/14How was Urine Obtained? CLEAN CATCHTest performed at:[facility] [address] [place] [address] AMORPHOUS 1+ PHOS (Normal) MUCUS, [...] CLARITY Sl. Cloudy (Normal) COLOR Yellow (Normal) 81-Bae-080883:00 CBC W/Diff, Automated Comments: Comments: IVT TO DRAWTest performed at:[facility] [address] [place] [address] Absolute Lymph 1.62 {X10_3/ul} (Normal) [...] 4.2-5.4 WBC 5.8 K/mm3 (Normal) Range: 4.4-11.0 75-Yrw-765331:00 Comprehensive Metabolic Profil Comments: Comments: IVT TO DRAWTest performed at:[facility] [address], [place] [address] GAP 4 (Abnormal) Range: 5-15 CO2 27.0 [...] 126 mg/dLsuggests DIABETES MELLITUS per A.D.A. criteria. 40-Iur-202247:25 CBC W/Diff, Automated Comments: Test performed at:[facility] [address] [place], [place] [address] Absolute Lymph 1.28 {X10_3/ul} (Normal) Range: 0.83-4.51 [...] 4.2-5.4 WBC 5.0 K/mm3 (Normal) Range: 4.4-11.0 60-Uaw-139387:25 Comprehensive Metabolic Profil Comments: Test performed at:[facility] [address] [place] [address] GAP 4 (Abnormal) Range: 5-15 CO2 29.0 [...] 7-18 GLU 100 mg/dL (Normal) Range: 70-110 81-Kcg-613178:21 URINE DELMAR CULTURE-JEROME COL Comments: PATIENT NOT FASTINGPERFORMED BY: HIREN [facility] Xdqrmv[address] [place] [id number] Information: SRC:UR [id number] COUNT ([id number]) Result 1 MUG (Normal) Comments: Mixed urogenital flora1,000 Colonies/mL Urine Culture,Comprehensive Final report (Normal) 59-Nrs-763852:35 Urinalysis, Office (03041) UA - LEUKOCYTE ESTERASE Trace (Normal) UA - NITRITE Negative (Normal) URINE UROBILINGN JEROME TIMED Normal mg/dL (Normal) UA - PROTEIN Negative mg/dL (Normal) UA - PH 6.0 (Normal) Comments: 5.5 UA - BLOOD Negative (Normal) UA - SPECIFIC GRAVITY 1.030 (Abnormal) UA - KETONES Negative mg/dL (Normal) UA - BILIRUBIN Negative (Normal) UA - GLUCOSE Negative (Normal) 9-Jzb-636520:15 CBCD ALC 1.51 {X10_3/ul} (Normal) Range: 0.83-4.51 [...] 4.2-5.4 WBC 5.7 K/mm3 (Normal) Range: 4.4-11.0 6-Exr-664566:15 CMP Comments: Comments: FAX RESULTS TO DR. MARRERO - IVT DRAW GAP 4 (Abnormal) Range: 5-15 CO2 [...] or Folic Acid Supplements? N Range: 3.1-17.5 4-Vmp-957473:01 Urinalysis, Office (71291) UA - LEUKOCYTE ESTERASE Negative (Normal) UA - NITRITE Negative (Normal) URINE UROBILINGN JEROME TIMED Normal mg/dL (Normal) UA - PROTEIN Negative mg/dL (Normal) UA - PH 5 (Abnormal) UA - BLOOD Negative (Normal) UA - SPECIFIC GRAVITY 1.025 (Normal) UA - KETONES Negative mg/dL (Normal) UA - BILIRUBIN Negative (Normal) UA - GLUCOSE Negative (Normal) :52 CBCD ALC 1.26 {X10_3/ul} (Normal) Range: 0.83-4.51 [...] 4.2-5.4 WBC 4.2 K/mm3 (Abnormal) Range: 4.4-11.0 :52 CMP Comments: SED RATE ADD ON BLOOD [...] 126 mg/dLsuggests DIABETES MELLITUS per A.D.A. criteria. 1-Mdc-681228:52 SED tSEDRATE 32 mm/h (Abnormal) Range: 0-30 :21 iPBE 0 mmol/L (Normal) :21 iPCO2 40.0 {mmHg} (Normal) Range: 35-45 :21 iPH 7.41 (Normal) Range: 7.35-7.45 :21 iPO2 83 {mmHG} (Normal) Range: 75-100 :21 iTCO2 26 mmol/L (Normal) :21 iTHCO3 25 mmol/L (Normal) Range: 22-26 Comments: Site = L BrachialAllens Test = POSDevice = Room AirResults To = OTHERTime Given = 915 :21 aDM4JEY 96 % (Normal) Range: 95-99 :21 iTYPE ART (Normal) 6-Enq-398173:37 Rapid Flu (66349 x 2) Comments: neg Influenza A Ag negative a and b (Normal) 1-Aoq-480734:59 Influenza A&B Viral Comments: neg; PATIENT NOT FASTINGPERFORMED BY: [facility]CoThe [facility] HospitalTvwtzl0802 [facility] [id number] Information: SRC:NOS [id number] Culture (59086) Viral Culture,Rapid,Influenza FLUABN (Normal) Comments: Negative:No Influenza [...] RESULTS TO DR. MARRERO AND AISLINN SCOTTDRAW GAP 7 (Normal) Range: 5-15 CO2 [...] 7-18 GLU 87 mg/dL (Normal) Range: 70-110 3-Kgw-751012:05 FOL 22.20 ng/mL (Abnormal) Comments: COMMENTS: FAX RESULTS TO AISLINN SCOTT DRAW Range: 3.1-17.5 52-Mqc-899044:08 CALCIFEDIOL (82592) Comments: PATIENT NOT FASTINGPERFORMED BY: [facility]CoThe [facility] HospitalYvkuwc9272 [facility] [id number] Information: [id number] Vitamin D, 25-Hydroxy 47.6 ng/mL (Normal) Range: 30.0-100.0 Comments: Vitamin D deficiency has been defined by the [place] [employer] and an Endocrine Society practice guideline as alevel of serum 25-OH vitamin D less than 20 ng/mL (1,2).The Endocrine Society went on to further define vitamin Dinsufficiency as a level between 21 and 29 ng/mL (2).1. IOM ([place] [employer]). 2010. Dietary reference intakes for calcium and D. [place]: The National Academies Press.2. Stacia MF, Mago MONTE, Meliza MAGDALENO, et al. Evaluation, treatment, and prevention of vitamin D deficiency: an Endocrine Society clinical practice guideline. JCEM. 2010; 96(7):1911-30. 0-Lxq-483666:18 BILAT SCRN DIGITAL & CAD Radiology Report [...] Morales M.D.May 04 012 at 2:58:08 PM [phone] Signed GP/GP If you are the referring physician and would like to consult with theradiologist who provided this interpretation, please contact Valdo bettencourt M.D. at [phone]. If this radiologist is unavailable, youwill be directed to another radiologist to assist. If you are a patient with a question regarding this report, pleasecontactyour refe rring physician directly. Professional Interpretation Provided By: [employer], Phone , These documents contain legally protected [...] documents. Dictated on 04/26/12 1418 by Carmen ZULETA,Miloranscribed on 05/04/121510 by ITS IMPORTSign by Carmen ZULETA,Martín on 05/04/121511 Sign by: Martín Morales MD 06-Apr-2012 TSH 2.25 {uIU/mL} Range: 0.358-3.74 10:00 (Normal) 05-Apr-2012 VITD 21.7 ng/mL Comments: RE-COLLECT 10:08 (Abnormal) Range: 30.0-100.0 Comments: Vitamin D deficiency has been defined by the [place] [employer] and an Endocrine Society practice guideline as alevel of serum 25-OH vitamin D less than 20 ng/mL (1,2).The Endocrine Society went on to further define vitamin Dinsufficiency as a level between 21 and 29 ng/mL (2).1. IOM ([place] [employer]). 2010. Dietary reference intakes for calcium and D. [place]: The National Academies Press.2. Stacia MF, Mago [place], Meliza MAGDALENO, et al. Evaluation, treatment, and prevention of vitamin D deficiency: an Endocrine Society clinical practice guideline. JCEM. 2010; 96(7): 1911-30.Performed at: - [address] [id number] Director: Meeta Hickman MD, Phone: [phone] 61-Xfc-191550:44 LIPID VLDL 14 mg/dL (Normal) Range: 5-40 [...] 200-240 mg/dL Borderline >240 mg/dL High Risk 97-Enn-030940:35 Urinalysis, Office (46490) UA - BILIRUBIN Small (Normal) UA - BLOOD Negative (Normal) UA - GLUCOSE Negative (Normal) UA - KETONES Small mg/dL (Normal) Comments: trace UA - LEUKOCYTE ESTERASE Negative (Normal) UA - NITRITE Negative (Normal) UA - PH 5.0 (Normal) UA - PROTEIN Trace mg/dL (Normal) UA - SPECIFIC GRAVITY 1.025 (Normal) URINE UROBILINGN JEROME TIMED Normal mg/dL (Normal) 32-Vde-771806:07 CBC with manual diff Comments: PATIENT NOT FASTINGPERFORMED BY: [facility] Steqwq6351 [facility] [id number] Information: [id number] (43254) Immature Grans (Abs) 0.0 {x10E3/uL} (Normal) Range: [...] 3.80-5.10 WBC 5.6 {x10E3/uL} (Normal) Range: 4.0-10.5 99-Fno-072932:07 Metabolic Panel, Comprehensive Comments: PATIENT NOT FASTINGPERFORMED BY: [facility]CoThe [facility] HospitalAtwjhl8997 [facility] [id number] (34264) Alkaline Phosphatase, S 50 [iU]/L (Normal) Range: [...] Glucose, Serum 97 mg/dL (Normal) Range: 65-99 29-Yil-57145:00 SPINE, CERVICAL (ROUTINE) Radiology See Note Comments: [...] n 06/18/101755 Sign by: Lee Ann Key :49 RENAL CO2 28.0 mmol/L (Normal) Range: 21.0-32.0 [...] 0.6-1.0 GLU 102 mg/dL (Normal) Range: 70-110 34-Ndt-85140:00 CERV SPINE,MIN 4 VIEWS Radiology Report See [...] 06/05/101512 by Daxa Worleyranscribed on 06/05/101512 by YAMEL PAGESONSign by Alena Worley on 06/09/10 0855 Sign by: Alena Worley 27-Ndg-760593:55 CALCIFEDIOL (96191) Comments: PATIENT NOT FASTINGPERFORMED BY: LabCass Medical CenterFtfdca6336 [facility] [id number] Information: [id number] Vitamin D, 25-Hydroxy 36.1 ng/mL (Normal) Range: [...] (Normal) GLU 82 mg/dL (Normal) Range: 70-110 27-Ldn-309128:33 ALDOLASE 2030 4.7 U/L (Normal) Range: 1.2-7.6 Comments: Performed at: [address] [id number] Director: Meeta Hickman MD 72-Tgt-550572:33 CBCD ABSOLUTE NEUT 2.6 3/uL (Normal) Range: [...] 11.6-14.6 WBC 4.9 K/mm3 (Normal) Range: 4.4-11.0 42-Qwi-671457:33 COMP METABOLIC Comments: LIVER TEST TO CL [...] 6.4-8.2 GLU 95 mg/dL (Normal) Range: 70-110 :33 CPK TOTAL 37 U/L (Normal) Comments: LIVER TEST TO Range: 21-215 46-Are-562780:33 D BILI 0.12 mg/dL (Normal) Comments: LIVER TEST TO Range: 0.00-0.30 24-Plp-680166:46 COMPLETE UA BACTERIA RARE {/hpf} (Normal) MUCUS, [...] CK-BB 0 % (Normal) Comments: Performed at: [address] [id number] Director: Meeta Hickman MD CK-MB 0 % (Normal) Range: 0-3 CK-MM 100 % (Normal) Range: 97-100 Macro I 0 % (Normal) Macro II 0 % (Normal) CPK,TOTAL,SERUM 59 U/L (Normal) Range: 24-173 :46 PTH,Intact 57 pg/mL (Normal) Range: 14-72 :46 TSH 1.06 {uIU/mL} (Normal) Range: 0.358-3.74 :29 ALDOLASE 2030 9.1 U/L (Abnormal) Range: 1.2-7.6 Comments: Performed at: [address] [id number] Director: Saul Cuadra MD :29 COMP METABOLIC [...] 126 mg/dLsuggests DIABETES MELLITUS per A.D.A. criteria. 89-Pxz-777976:29 CPK TOTAL 356 U/L (Abnormal) Range: 21-215 10-Pnh-406330:29 [facility] LAB TEST . (Normal) Comments: MYOGLOBIN, SERUM 121 H ng/mL 25 - 58 TESTING PERFORMED AT [facility]. ORIGINAL REPORT ONFILE IN LAB CONTAINS ADDITIONAL TEST SITE INF ORMATION. 25-Zin-567946:14 COMPLETE UA AMORPHOUS 4+ (Normal) BACTERIA 0 [...] U/L (Abnormal) Range: 1.2-7.6 Comments: Performed at: [address] [id number] Director: Saul Cuadra MD 32-Rpd-057550:03 CKMB CKRI 0.2 % (Normal) Range: 0.0-1.4 Comments: RELATIVE INDEX >1.5% IS PRESUMPTIVELY POSITIVE CPKMB 18.3 ng/mL (Abnormal) Range: 0.0-5.0 Comments: CK-MB and RI Interpretation MB Relative IndexNon-AMI <or= 5 NAIndeterminate > 5 <or= 4AMI > 5 > 4 CPK TOTAL 8135 U/L (Abnormal) Range: 21-11-Sep-200915:03 CPK TOTAL 8135 U/L (Abnormal) Range: 21-10-Sep-200912:18 CBCD ABSOLUTE NEUT 2.3 3/uL (Normal) Range: [...] 4.2-5.4 WBC 4.1 K/mm3 (Abnormal) Range: 4.4-11.0 25-Wwz-901904:18 COMP METABOLIC CL 104 mmol/L (Normal) Range: [...] 0.6-1.0 GLU 109 mg/dL (Normal) Range: 70-110 03-Jct-611459:10 Rapid Strep Test, Office (93665) Rapid Strep Test, Office Negative (Normal) 8-Mww-923172:56 CALCIFEDIOL (71837) Comments: PATIENT NOT FASTINGPERFORMED BY: [facility]6370 [facility] [id number] Information: [id number] Vitamin D, 25-Hydroxy 19.7 ng/mL (Abnormal) Range: 32.0-100.0 Comments: Recent studies consider the lower limit of 32.0 ng/mL to be athreshold for optimal health.Froylan BHAKTA. J Nutr. 2004;135(2):317-22. 54-Bqs-028633:10 ABDOMEN/PELVIS WITH CONTRAST Radiology Report See Note (Normal) Comments: Exam Number: [id number] CLINICAL:58 year old woman with abnormal blood [...] surgically absent. Reported By: LOREN MALCOLM M.D. 92-Yes-059054:15 TRANSVAGINAL NON-PREG US () Radiology Report See Note (Normal) Comments: Exam Number: [id number] CLINICAL:58-year-old female post menopausal with positive beta-hCG [...] weeks recommended. Reported By: WILLIE BOLIVAR M.D. 63-Gbp-374053:55 PELVIC (NON-PREG) (HP) Radiology Report See Note (Normal) Comments: Exam Number: [id number] CLINICAL:58-year-old female post menopausal with positive beta-hCG [...] HCGUQUAL SeeNote m[iU]/mL (Normal) Comments: Result: Negative 12-Xuw-629046:17 DELMAR CULTURE-OTHER (90931) Comments: PATIENT NOT FASTINGClinical Information: SRC:THRT ADD [id number] PERFORMED BY: [facility]6370 [facility] [id number] Result 1 RRF (Normal) Comments: Routine respiratory gabriella Upper Respiratory Culture Final report (Normal) 34-Ofm-566064:03 LQD PAP [id number] Comments: CYTOLOGY INFORMATION:- CLINICAL INFORMATION: - DATE LMP/MENOPAUSE: 1998 LMP- COLLECTION VIAL: Thin Prep Vial- SLAB OFF MILL TENDER SOURCE: CERVICAL/ENDOCERVICAL- COLLECTION TECHNIQUE: BRUSH/SPATULA ADEQ Comment (Normal) Comments: Satisfactory for evaluation. Endocervical and/or squamous metaplasticcells (endocervical component) are present. COMM . (Normal) DIAGN Comment (Normal) Comments: NEGATIVE FOR INTRAEPITHELIAL LESION AND MALIGNANCY. HPV RFLX Comment (Normal) Comments: The HPV DNA reflex criteria were not met with this specimenresult therefore, no HPV testing was performed. .Performed At: [address] [id number] PAPR Comment (Normal) Comments: The Pap smear is a screening test designed to aid in thedetection of premalignant and malignant conditions of theuterine cervix. It is not a diagnostic procedure andshould not be used as the sole means of detecting cervicalcancer. Both false-positive and false-negative reports dooccur. . PERFORM Comment (Normal) Comments: Ashwin Blanc, Public Policy Mediator (ASCP) 37-Wua-614438:52 Microscopic Examination Comments: PATIENT WAS FASTINGPERFORMED BY: HAL[facility] Defense SystemsNov[facility] [id number] Bacteria Few (Normal) Epithelial Cells (non renal) None seen {/hpf} (Normal) Range: 0 - 10 RBC None seen {/hpf} (Normal) Range: 0 - 3 WBC 0-5 {/hpf} (Normal) Range: 0 - 5 60-Pba-896587:52 MICROALBUMIN: CREATININE RATIO Comments: PATIENT WAS FASTINGPERFORMED BY: [employer] [employer] SystemsNov[facility] [id number] ([id number]) AND (99768) Creatinine, Urine 353.6 mg/dL (Abnormal) Range: 15.0-278.0 Microalb/Creat Ratio 5.4 {ug/mg_creat} (Normal) Range: 0.0-30.0 Microalbumin, Urine 19.2 ug/mL (Abnormal) Range: 0.0-17.0 74-Gxg-184337:52 URINALYSIS (28142) Comments: PATIENT WAS FASTINGPERFORMED BY: [employer]70 [facility] Guard[employer] TechnologiesNov[facility] [id number] Appearance Clear (Normal) Bilirubin Negative (Normal) Glucose Negative (Normal) Ketones Negative (Normal) Microscopic Examination See below: (Normal) Nitrite, Urine Negative (Normal) Occult Blood Negative (Normal) pH 8.0 (Abnormal) Range: 5.0-7.5 Protein 1+ (Abnormal) Specific [place] 1.010 (Normal) Range: 1.005-1.030 Urine-Color Yellow (Normal) Urobilinogen,Semi-Qn 0.2 mg/dL (Normal) Range: 0.0-1.9 WBC Esterase Negative (Normal) 21-Xhm-656279:52 Metabolic Panel, Comprehensive Comments: PATIENT WAS FASTINGPERFORMED BY: [facility]CoThe [facility] HospitalPpqstn8325 [address] DoughertyNovant Health P[facility] [id number] (28979) A/G Ratio 1.6 (Normal) Range: 1.1-2.5 Albumin, [...] Sodium, Serum 144 mmol/L (Normal) Range: 135-145 50-Qmv-738095:52 Lipid Panel (51971) Comments: PATIENT WAS FASTINGPERFORMED BY: LabExecJokhly2905 [facility] [id number] Cholesterol, Total 237 mg/dL (Abnormal) Range: 100-199 [...] Cholesterol García 19 mg/dL (Normal) Range: 5-40 23-Iyx-967114:52 CBC with manual diff (06666) Comments: PATIENT WAS FASTINGClinical Information: ADD DARW FEE [id number] ADD J 30080 PERFORMED BY: [id number] [facility] [id number] Baso (Absolute) 0.1 {x10E3/uL} (Normal) Range: 0.0-0.2 [...] Plan of Care Name Dates Details Instructions Non-smoker : Follow up in 2 weeks [...] : Follow up in 3 months with [facility] Indication: Insomnia Vitamin D deficiency, unspecified [...] pain : Follow up on Wednesday with [facility] Indication: Back pain Carnitine deficiency : [...] : FOLLOW UP IN 3 MONTHS with [facility] Indication: Unspecified inflammatory polyarthropathy Vitamin [...] Indication: DEPRESSIVE DISORDER (311.0) Planned Observations PREALBUMIN (19365)Indication: Malnutrition On: [id number]:05 Request MAGNESIUM (62954)Indication: Hypocalcemia On: 07-Noi-653058:05 Request BNTP ([id number])Indication: Leg swelling On: 13-Sut-833021:59 Request TSH ([id number])Indication: Leg pain On: 99-Iqc-138047:42 Request CBC, Platelets & Auto Diff (62666)Indication: Leg pain On: 49-Mvi-438687:42 Request Metabolic Panel, Comprehensive (09679)Indication: Leg pain On: 76-Qcw-994994:42 Request Vitamin B-12 (cyanocobalamin) (62453)Indication: B12 deficiency On: 08-Qbi-294696:55 Request CPK TOTAL & ISOENZYMES (11736)Indication: Pain in unspecified joint On: 34-Stu-926614:03 Request URINE DELMAR CULTURE-IDENTIFICATN (78741)Indication: Dysuria On: 23-Wtc-159087:16 Request URINALYSIS (48068)Indication: Dysuria On: 80-Xzp-086716:16 Request CALCIFEDIOL (92012)Indication: Postmenopausal (Renamed from Postmenopausal status) On: 7-Rof-052178:50 Request HPV automatic (01561)Indication: Screening for HPV (human papillomavirus) (Renamed from Encounter for screening for human papillomavirus (HPV)) On: 8-Odm-488237:49 Request Metabolic Panel, Comprehensive (61650)Indication: DM (diabetes mellitus screen) On: 97-Pya-403540:24 Request TSH (92771)Indication: Screening for deficiency anemia On: :23 Request CBC, Platelets & Auto Diff (51647)Indication: Screening for deficiency anemia On: 67-Rsx-671504:23 Request Lipid Panel (07214)Indication: Screening for hyperlipidemia On: 04-Rpe-984343:23 Request VITAMIN B12 AND FOLATES (41157)Indication: Leg pain On: 7-Tzn-758726:27 Request HEPATIC FUNCTION PANEL (37804)Indication: Hypercholesteremia On: :15 Request CBC with manual diff (36675)Indication: Carnitine deficiency On: :10 Request Metabolic Panel, Comprehensive (87886)Indication: Arthritis On: 68-Klg-381444:10 Request LIPID PANEL (40049)Indication: Hypercholesteremia On: :10 Request CBC (AUTO) (73298)Indication: FATIGUE On: :24 Request METABOLIC PANEL, COMPREHENSIVE (30110)Indication: FATIGUE On: :24 Request Folate (98745)Indication: FATIGUE On: : Request VITAMIN B-12 (CYANOCOBALAMIN) (73151)Indication: FATIGUE On: :24 Request TSH (06453)Indication: DEPRESSIVE DISORDER (311.0) On: 04-Dwu-574373:16 Request CBC with manual diff (58324)Indication: Myopathy NOS On: 2-Wkv-925792:03 Request Metabolic Panel, Comprehensive (79206)Indication: DEPRESSIVE DISORDER (311.0) On: 4-Msn-951211:03 Request Lipid Panel (99251)Indication: Hypercholesteremia On: 9-Fhd-068667:03 Request CALCIFEDIOL (87815)Indication: Vitamin D deficiency, unspecified On: 0-Evi-379068:02 Request Renal function Panel (73144)Indication: Neck pain On: 50-Lyg-489764:14 Request CALCIFEDIOL (08532)Indication: Vitamin D deficiency, unspecified On: 26-Jun-20099:26 Request Comments: draw Beginning September 2009 TEST - SERUM QUANTITATIVE (HCG) (57154)Indication: Abnormal blood chemistry On: 51-Doa-592668:06 Request PREGNACY TEST, URINE (79742)Indication: Abnormal blood chemistry On: 23-Daa-240651:06 Request Lipid Panel (71175)Indication: Hypercholesteremia On: 73-Nmr-936512:16 Request Comments: fasting Rapid Strep Test, Office (67510)Indication: Pharyngitis, acute On: 82-Xwe-439952:04 Request Thin prep Pap (58244)Indication: Well woman exam On: 67-Fja-181389:09 Request FECAL OCCULT HGB ASSAY- tubes sent home (37608)Indication: Well woman exam On: :54 Request OCCULT BLOOD FECES SCREEN- card done in office (72890)Indication: Well woman exam On: :54 Request CPK TOTAL & ISOENZYMES ([id number])Indication: Myalgia and myositis On: :37 Request CALCIFEDIOL (04017)Indication: Leg cramps On: 71-Ikd-506673:36 Request VITAMIN B-12 (CYANOCOBALAMIN) (97081)Indication: Pain in unspecified joint On: :35 Request PARATHORMONE (38208)Indication: Myalgia and myositis On: :35 Request RHEUMATOID FACTOR-QUANT (60848)Indication: Pain in unspecified joint On: :15 Request SED RATE ERYTHROCYTE (65023)Indication: Pain in unspecified joint On: :15 Request Planned Encounters Medical; 2 Week FU - On: 24-May-2018 15:30 [facility] Aislinn Espinal CNP, CNP, Mary E Planned Procedures Venous Doppler - LeftBy: Teddy BINGHAM, On: 02-May-2018 Intent Aislinn Leonard CNP Aerosol Treatment ([id number])By: Teddy On: 28-Mar-2018 Intent Aislinn BINGHAM CNP, Mary E Flu Vaccine (Quadrivalent) 93880Aj: On: 28-Mar-2018 Aislinn Giron CNP, CNP, Mary E Comments: Lot #[id number]-L dltd, IMDose prefilled syringegiven by: CHRISTOPHE NoriegaVIS [...] ChestBy: Aislinn Espinal CNP On: 23-Dec-2016 Intent Aislinn Araujo CNP Ear Irrigation ([id number])By: Teddy On: 18-Dec-2016 Intent Aislinn BINGHAM CNP, Mary E Wax CurettesBy: Teddy Aislinn BINGHAM On: 18-Dec-2016 Intent Aislinn Espinal CNP Aerosol Treatment (53040)By: Teddy On: 18-Dec-2016 Intent Aislinn BINGHAM CNP, Mary E Wax CurettesBy: Pamela Bates On: 01-Dec-2016 Intent Ear Irrigation ([id number])By: Paulo On: 01-Dec-2016 Intent Pamela Comments: Ear Irrigation performed on:rightAmount/color removed cerumen:small OUtcome:clear and tolerated PNEUM VAC ADLT/IMUMNOSPR, SBC/INTRM On: 19-May-2016 Intent ([id number])By: Teddy Aislinn BINGHAM CNP, Mary E Flu Vaccine (Quadrivalent) 87163Zv: On: 12-May-2016 Intent Aislinn Espinal CNP, CNP, Mary E Comments: FLUlot: [id number]:11/04site:Lt deltoidroute:IMdose:.5mlDEMICK, MA DEXA SCAN AXIAL SKELETON ([id number])By: On: 22-Apr-2016 Intent Swethanylakayli Aislinn BINGHAM CNP, Mary E Pap Smear, Medicare ([id number])By: Teddy On: 22-Apr-2016 Intent Aislinn BINGHAM CNP, Mary E FLU VACCINE H1N1 ([id number])By: Teddy On: 06-Mar-2015 Intent Aislinn BINGHAM CNP, Mary E Comments: Lot:[id number]:12/19/15Dose:0.5mLRoute:IMSite:L DltdGiven By:MIKE signed ADMINISTRATION OF H1N1 INFLUENZA On: 06-Mar-2015 Intent VIRUS VACCINE ([id number])By: Teddy BINGHAMAislinn Swethanylakayli BINGHAMAislinn DEXA SCAN AXIAL SKELETON ([id number])By: On: 06-Mar-2015 Intent Aislinn Espinal CNP, CNP, Mary E MAMMOGRAM, SCREENING, BOTH BREAST On: 06-Mar-2015 Intent (40566)By: Aislinn Espinal CNP, CNP, Mary E ANNUAL DEPRESSION SCREENING, 15 On: 06-Mar-2015 Intent MINUTES (G0444)By: Aislinn Espinal CNP, CNP, Mary E Venous Doppler - LeftBy: Teddy BINGHAM, On: 29-Aug-2014 Intent Aislinn Leonard CNP MARY ALICE (Ankle Brachial Index) On: 29-Aug-2014 Intent ([id number])By: Aislinn Espinal CNP, CNP, Mary E SPECIMEN HANDLING/TRANSPORT On: 16-May-2014 Intent ([id number])By: Aislinn Espinal CNP, CNP, Mary E Flu Vaccine (Quadrivalent) 06570Wd: On: 19-Apr-2014 Intent Aislinn Espnial CNP, CNP, Mary E Comments: lot:[id number]:0.5mLRoute: IMlocation: L armgiven by: elyse ADMINISTRATION OF INFLUENZA VIRUS On: 19-Apr-2014 Intent VACCINE ([id number])By: Mckenzie Zhao Radiology - Lumbar SpineBy: Teddy On: 29-Dec-2013 Intent Aislinn BINGHAM CNP, Mary E Toradol Injection, 30 mg ([id number])By: On: 29-Dec-2013 Intent Aislinn Espinal CNP, CNP, Mary E Ear Irrigation ([id number])By: Eben On: 19-Apr-2013 Intent Mayela LONDONO Comments: Ear Irrigation performed on:bilateralAmount/color removed cerumen:small amount of darkl brown waxOUtcome:clearUsed wax curettes FLU VAC, SPLIT, >3 YEARS, INTRAMUSC On: 19-Apr-2013 Intent (30601)By: Pamela Crooks LPN Comments: Lot:[id number]:6.14Amt:0.5mlRoute:IMSite: L DltdGiven By: Alejandra CMAVIS signed IMMUNIZ ADMNIN, 1 VAC, SNGL/COMBO On: 19-Apr-2013 Intent ([id number])By: Pamela Crooks LPN Wax CurettesBy: Mayela Treadwell DO On: 19-Apr-2013 Intent Eprescribed prescriptions ([id number])By: On: 19-Apr-2013 Intent Pamela Crooks LPN B 12 Injection, 1000 mcg (J3420)By: On: 28-Dec-2012 Intent Kassie Tellez LPN B 12 Injection, 1000 mcg (J3420)By: On: 29-Nov-2012 Intent Pattie Malagon LPN Comments: Lot: [id number]: [id number]: 1000mcg/1mlRoute: IMSite: L deltoidGiven by: CHRISTOPHE Allen B 12 Injection, 1000 mcg (J3420)By: On: 26-Oct-2012 Intent Jina Gomes LPN Comments: Lot #[id number]-right deltoidDose-1 mlgiven by: Rishabh Gomes LPN B 12 Injection, 1000 mcg (J3420)By: On: 11-Oct-2012 Intent Deedee Cantrell Comments: lot: [id number]:06/03site/route: L deltoid/IMamt: 1ccVIS signed when applicableCheANDIE jeffries B 12 Injection, 1000 mcg (J3420)By: On: 05-Oct-2012 Intent Aislinn Espinal CNP, CNP, Mary E B 12 Injection, 1000 mcg (J3420)By: On: 27-Sep-2012 Intent Valencia Renee Comments: Lot:[id number]:06/03Dose:1mlRoute:IMSite:l armGiven By:BRYNN signed IMMUNIZ ADMNIN, 1 VAC, SNGL/COMBO On: 29-Mar-2012 Intent (66959)By: Aislinn Espinal CNP Comments: lot # [id number]- 12/18/1201brsa-DHJGfsekb-UCxlxu- 0.5 MLCHenAislinn thakur LPN, CNP MAMMOGRAM, SCREENING, BOTH BREASTS On: 29-Mar-2012 Intent ([id number])By: Aislinn Espinal CNP, CNP, Mary E FLU VAC, SPLIT, >3 YEARS, INTRAMUSC On: 29-Mar-2012 Intent ([id number])By: Aislinn Espinal CNP, CNP, Mary E MRI -Cervical Spine (IV Contrast On: 11-Jun-2010 Intent Needed)By: Aislinn Espinal CNP, CNP, Mary E Radiology - Cervical SpineBy: Eben On: 05-Jun-2010 Intent DO, Mayela Aerosol Treatment ([id number])By: Teddy On: 03-Sep-2009 Intent Aislinn BINGHAM CNP, Mary E Pulse Oximetry (62774)By: Teddy BINGHAM, On: 06-May-2009 Intent Aislinn Leonard CNP Aerosol Treatment (26496)By: Teddy On: 06-May-2009 Intent Aislinn BINGHAM CNP, Mary E IMMUNIZ ADMNIN, 1 VAC, SNGL/COMBO On: 20-Mar-2009 Intent ([id number])By: Aislinn Espinal CNP, CNP, Mary E FLU VAC, SPLIT, >3 YEARS, INTRAMUSC On: 20-Mar-2009 Intent (42264)By: Aislinn Espinal CNP Comments: Lot #[id number]-left deltoidgiven by:Aislinn LEMONS CNP CT - Abdomen & Pelvis (IV Contrast On: 14-Mar-2009 Intent Needed)By: Aislinn Espinal CNP, CNP, Mary E Ultrasound - PelvisBy: Teddy BINGHAM, On: 14-Mar-2009 Intent Aislinn Leonard CNP Comments: attention adrenals and ovaries SPECIMEN HNDLNG/TRNSPRT, OFFC > LAB On: 18-Jan-2009 Intent (94010)By: Aislinn Espinal CNP, CNP, Mary E DXA, BONE DENSITY, AXIAL SKELETON On: 13-Nov-2008 Intent (48722)By: iAslinn Espinal CNP, CNP, Mary E MAMMOGRAM, SCREENING, BOTH BREASTS On: 13-Nov-2008 Intent (84509)By: Aislinn Espinal CNP, CNP, Mary E ELECTROCARDIOGRAM, COMPLETE (ECG) On: 11-Oct-2008 Intent (38405)By: Ciesa GEOLOGICAL AIDE, Divya Ciesa GEOLOGICAL AIDE, Divya Planned Medications INJECTION, KETOROLAC TROMETHAMINE, PER 15 MG Ordered: 29-Dec-2013 Pending Alidakayli BINGHAM Aislinn Aragon Swethanylakayli BINGHAM Aislinn Aragon INJECTION, METHYLPREDNISOLONE SODIUM SUCCINATE, UP TO 125 MG Ordered: 03-Dec-2017 Pending Teddy ZACHERY Aislinn Espinal ZACHERY, Aislinn Aragon Vitamin B-12 1000 MCG/ML Injection Solution Ordered: 27-Sep-2012 Pending Valencia Renee Vitamin B-12 1000 MCG/ML Injection Solution Ordered: 05-Oct-2012 Pending Swethanylakayli BINGHAM Divya Cinylakayli BINGHAM, Aislinn Aragon Vitamin B-12 1000 MCG/ML Injection Solution Ordered: 11-Oct-2012 Pending Deedee Cantrell Vitamin B-12 1000 MCG/ML Injection Solution Ordered: 26-Oct-2012 Pending Jina Gomes LPN Vitamin B-12 1000 MCG/ML Injection Solution Ordered: 29-Nov-2012 Pending Vesna PARKERNPattie Vitamin B-12 1000 MCG/ML Injection Solution Ordered: [...] D deficiency, unspecified : DISCONTINUED - CALCIFEDIOL (81474) Indication: Vitamin D deficiency, unspecified B12 deficiency : Patient Instructions Indication: B12 deficiency Encounters Office Visit On: 10-May-2018 15:30 Encounter Reason: [...] for Shingles: follow up ER visit from [facility]: 08-May-2015 12:08 nations secondary from oxycontin [...] patient does not have durable power of district attorney or living will. The patient has noticed feeling helpless (feels depressed jasiel etimes). Other providers contributing to the patient's care are kiln placer (Dr Genao) and other: (Neuro Danielle Mariee at [facility]).Encounter Diagnosis: Annual Medicare Physical (V70.0), [...] patient does not have durable power of district attorney or living will. The patient has noticed staying at home rather than doing something new or going out and lack of energy. Other providers contributing to the patient's care are kiln placer and other: (neuromuscular spec. Manriquez). [facility] Office Visit On: [...] Nutrition: balanced diet. The medical issues th patient is following up for include All [...] keep the care continum I was at [facility] yesterday Encounter Diagnosis: DEPRESSIVE DISORDER [...]
--- OUTSIDE RECORDS SUMMARY | 2018-07-15 04:45 | XMS RPT_ITS | Continuity of Care Document ---
:1950 Author Organization [facility] Address [address] [place] [address] Phone Care Team Providers Name Role Phone [...] seeing Dr. Manriquez at [facility] getting carotene weekly IV twice a [...] CNP, Aislinn Aragon Start : 11-Oct-2015 Active Lasix 20 MG Oral Tablet 1 (one) Tablet daily x 2 days for 2 days Quantity: 10 {Tablet} Refills: 0 Ordered:11-May-2018 Teddy BINGHAM, Aislinn Boo CNP, Aislinn Aragon Start : 11-May-2018 Active Comments:Ok to dispense 10 pills Medrol 4 MG Oral Tablet Therapy Pack 1 (one) Tablet TAD for 0 days Quantity: 1 {Package} Refills: 0 Ordered:28-Mar-2018 Teddy BINGHAM, Aislinn Boo CNP, Aislinn Aragon Start : 28-Mar-2018 Active Comments:with food MULTIVITAMINS (Oral Capsule) 1 (one) Capsule daily for 0 days Refills: 0 Ordered:13-Feb-2009 mAy Carrington Start : 13-Feb-2009 Active Myrbetriq 25 [...] Aragon Start : 19-May-2016 Active Comments:oredered by Odilonenieliezer [...] days Quantity: 14 {Capsule} Refills: 0 Ordered:08-Feb-2018 Alidakayli BINGHAM Aislinn Henleykayli BINGHAM Aislinn Aragon Start : 08-Feb-2018 End : 15-Feb-2018 Inactive CIPRO, 500MG (Oral Tablet) 1 (one) Tablet bid for 7 days Quantity: 14 {Tablet} Refills: 0 Ordered:16-May-2014 Swethanylakayli BINGHAM Aislinn Henleykayli BINGHAM Aislinn Aragon [...] days Quantity: 50 {Jess} Refills: 0 Ordered:18-Dec-2016 Swethanylakayli BINGHAM Aislinn Henleykayli BINGHAM Aislinn Aragon [...] days Quantity: 20 {Capsule} Refills: 0 Ordered:18-Dec-2016 Alidakayli BINGHAM Aislinn Henleykayli BINGHAM Aislinn Aragon Start : 18-Dec-2016 End : 28-Dec-2016 Inactive ERGOCALCIFEROL, 64246MAIA (Oral Capsule) 1 (one) Capsule twice weekly [...] Refills: 0 Ordered:11-Oct-2015 Aislinn Espinal CNP, CNP, Mary E Start : 11-Oct-2015 End : 18-Oct-2015 Inactive [...] 3 days then 1 tab tid NYSTATIN, 008480QZMO/ML (Mouth/Throat Suspension) 4 Milliliter qid for 7 days Quantity: 1 {qs} Refills: 0 Ordered:23-Dec-2010 Alidakayli TRAFFIC WORKFORCE REPRESENTATIVE, Aislinn Ema TRAFFIC WORKFORCE REPRESENTATIVE, Divya Start : 23-Dec-2010 End : 30-Dec-2010 [...] 0 days Refills: 0 Ordered:25-Oct-2008 Aislinn Espinal CNP KATHEluca BINGHAM, Aislinn Aragon Start : 25-Oct-2008 End : [...] 11-Apr-2012 End : 11-Oct-2015 Discontinued VITAMIN D, 14853YGNM (Oral Capsule) 1 (one) Capsule twice weekly [...] Operative Report Result: Comments: See Note; NOTES: [facility] Medical Records Department [address] [place] [address] Operative Report 01/25/18 1254 MR#: [id number] Acct: [id number] Name: HANNA CHAVEZ Rep #: [id number] : 1950 67 From: Vaishnavi Dietz MD PCP: Aislinn Espinal NP Status: [facility] Y Location: [place] [address] Problem List (1) Urinary tract infection Status: Acute Report of Operation Date of Procedure: 01/25/18 Pre-Operative Diagnosis: urinary tract infection, pelvic pain Post-Operative Diagnosis: same and rectocele Surgery/Procedure Performed:: cystoscopy and pelvic exam under anesthesi a Description of Surgical Findings:: normal cystoscopy. very short anterior vaginal wall. grade 3 rectocele. atrophy. undercar specialist: Vaishnavi Dietz Type of Anesthesia:: MAC [...] Discharge Instruction Result: Comments: See Note; NOTES: [facility] Medical Records Department [address] [place] [address] Instructions for Home/Discharge Instructions 01/25/18 1228 MR#: [id number] Acct: [id number] Name: HANNA CHAVEZ Rep #: [id number] : 1950 67 From: Vaishnavi Dietz MD PCP: Aislinn Espinal NP Status: REG [facility] Discharge Diet: No Restrictions Discharge Activity: Return [...] DAILY 05/23/13 Triamcinolone Acetonide [Nasacort Aq Nasal Boyce] 2 spray NASAL DAILY PRN 05/23/13 Levocarnitine [...] MD> Date Vaishnavi Dietz MD CC: Aislinn Espnial FINAL INSPECTOR [employer]OV[employer]SEM[employer] 17-Jan-2018 Kidney and Bladder Result: Comments: See Note; NOTES: [facility] Imaging Services [address] [place] [address] Kidney and Bladder MR#: [id number] Acct: [id number] Name: HANNA CHAVEZ Rep #: [id number] DO B: 1950 F 67 From: Tee Weems PCP: Aislinn Espinal NP Status: REG CLI Study: Kidney and Bladder Date of Exam: 01/17/18 Exam# [id number] Ordering Dr: Vaishnavi Dietz MD STUDY: RENAL [...] Aislinn Espinal NP; Vaishnavi Dietz MD Senior Court Office Assistant: Signed 29-Dec-2017 Transvaginal Non- Result: Comments: See Note; NOTES: [facility] Imaging Services [address] [place] [address] Transvaginal Non- MR#: [id number] Acct: [id number] Name: HANNA CHAVEZ Rep #: [id number] : 1950 F 67 From: Jacky Hanson MD PCP: Aislinn Espinal NP Status: REG CLI Study: Transvaginal Non- Date of Exam: 12/29/17 Exam# [id number] Ordering Dr: Vaishnavi Dietz MD STUDY: U [...] Left ovary appears normal. Electronically Signed: Jacky Margie, at 15:49 EDT Tel , Ser vice support , CC: Aislinn Espinal NP; Vaishnavi Dietz MD Senior Court Office Assistant: Signed 09-Dec-2017 Downtime Report Result: Comments: See Note; NOTES: [facility] Medical Records Department [address] [place] [address] Downtime Report MR#: [id number] Acct: [id number] Name: HANNA CHAVEZ Rep #: [id number] : 1950 67 From: Elmer Moreno PCP: Aislinn Espinal NP Status: REG CLI This patient was seen during an EMR downtime November 22, 2017 - November 29, 2017. This patient may have a combination of paper and electronic documentation or all paper documentation. All documentation is viewable within the e-chart portion of rankur for each patient visit. 09-Dec-2017 Downtime Report Result: Comments: See Note; NOTES: [facility] Medical Records Department [address] [place] [address] Downtime Report MR#: [id number] Acct: [id number] Name: CHAVEZHANNA Thapa Rep #: [id number] : 1950 67 From: Elmer Moreno PCP: Aislinn Espinal NP Status: REG CLI This patient was seen during an EMR downtime November 22, 2017 - November 29, 2017. This patient may have a combination of paper and electronic documentation or all paper documentation. All documentation is viewable within the e-chart portion of rankur for each patient visit. 03-Dec-2017 Foot min 3 Views Result: Comments: See Note; NOTES: [facility] Imaging Services [address] [place] [address] Foot min 3 Views MR#: [id number] Acct: [id number] Name: HANNA CHAVEZ Rep #: [id number] : 1950 F 67 From: Yahir Wolfe MD PCP: Aislinn Espinal NP Status: REG CLI Study: Foot min 3 Views Date of Exam: 12/03/17 Exam# [id number] Ordering Dr: Aislinn Espinal STUDY: X-RAY - [...] support , CC: Aislinn Espinal NP Senior Court Office Assistant: Signed 23-Dec-2016 Chest PA and Lateral Result: Comments: See Note; NOTES: [facility] Imaging Services [address] [place] [address] Verdana 4d Chest PA and Lateral MR#: [id number] Acct: [id number] Name: HANNA CHAVEZ Rep #: [id number] : 1950 F 66 From: Juan Woody MD PCP: Aislinn Espinal Status: REG CLI Study: Chest PA and Lateral Date of Exam: 12/23/16 Exam# [id number] Ordering Dr: Danielle Manriquez MD STUDY: X-RAY [...] Service support , CC: Aislinn Manriquez Senior Court Office Assistant: Signed 05-Jul-2016 Discharge Instruction Result: Comments: See Note; NOTES: [facility] Medical Records Department [address] [place] [address] Discharge Instruction 07/05/162116 MR#: [id number] Acct: [id number] Name: JOSH CHAVEZ Rep #: [id number] : 1950 66 From: Sarabjit Salinas MD [...] your Primary Care Provider. Call [facility] ([phone]) or report to the closest Emergency Room. Call 911 if necessary. 07/05/16 <Electronically signed by Sarabjit Salinas MD> Date Sarabjit Salinas MD Cosigner Signature (If Indicated): Date CC: Aislnin Espinal 05-Jul-2016 Emergency Department Summary Result: Comments: See Note; NOTES: [facility] Medical Records Department [address] [place] [address] Emergency Department Summary 07/05/164 MR#: [id number] Acct: [id number] Name: HANNA CHAVEZ Rep #: [id number] : 1950 66 From: Sarabjit Salinas MD [...] problems, contact your Primary Care Provider. Call [facility] ([phone]) or repor t to the closest Emergency Room. Call 911 if necessary. 07/05/162116 <Electronically signed by Sarabjit Salinas MD> Date Sarabjit Salinas MD Cos igner Signature (If Indicated): Date CC: Aislinn Espinal 16-Apr-2015 Emergency Department Summary Result: Comments: See Note; NOTES: [facility] Medical Records Department [address] [place] [address] Emergency Department Summary MR#: [id number] Acct: [id number] Name: HANNA CHAVEZ Rep #: [id number] : 1950 64 From: Breanna Ryan MD PCP: Carla Hughes MD Status: [facility] ER DATE OF SERVICE: 04/15/2015 CHIEF COMPLAINT: [...] was at 3:00 a.m. She comes in [facility] for pain control. PHYSICAL EXAMINATION: [...] pain. Breanna Ryan MD T: NTS JOB: [id number] 04/16 2359 <Electronically signed by Breanna Ryan MD> Date Breanna Ryan MD Cosigner Signature (If Indicated): Date _ CC: Carla Hughes MD Date Dictated: 04/15/15816 Date Transcribed: 04/15/[address] Office Assistant: Signed 15-Apr-2015 Discharge Instruction Result: Comments: See Note; NOTES: [facility] Medical Records Department [address] [place] [address] Discharge Instruction 04/15/15808 MR#: [id number] Acct: [id number] Name: HANNA CHAVEZ Rep #: [id number] : 1950 64 From: Breanna Ryan MD [...] problems, contact your doctor. Call [facility] ([phone]) or report to the closest Emergency Room. Call 911 if necessary. 04/15/15817 <Electronically signed by Breanna Ryan MD> Date Breanna Ryan MD Cosigner Signature (If Indicated): Date CC: Carla Hughes MD 03-Dec-2014 Emergency Department Summary Result: Comments: See Note; NOTES: [facility] Medical Records Department [address] [place] [address] Emergency Department Summary MR#: [id number] Acct: [id number] Name: HANNA CHAVEZ Rep #: [id number] : 1950 64 From: Shruthi Savage DO [...] Hughes. 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 [...] condition. Shruthi Savage DO T: NTS JOB: [id number] 12/03/14 2329 <Electronically signed by Shruthi Savage DO> Date Thalia Savage DO CC: Carla Hughes MD Date Dictated: 11/15/141931 Date Transcribed: 11/15/141931 Senior [address] Office Assistant: Signed 16-Nov-2014 12 Lead Electrocardiogram Result: Comments: See Note; NOTES: [facility] Cardiovascular Services [address] [place] [address] 12 Lead EKG 11/15/14 1626 MR#: [id number] Acct: [id number] Name: HANNA CHAVEZ Rep #: [id number] : 1950 64 From: Lamont Lucas MD [...] l ECG Confirmed by LAMONT LUCAS ([id number]), editorial director LAKIA MORENO ([id number]) on 11/16/2014 10:58:54 AM Referred By: JERE Confirmed By:LAMONT LUCAS 11/16/14 1059 Date Lamont Lucas MD CC: Carla Hughes MD Date Dictated: 11/15/141625 Date Transcribed: 11/15/141625 [address] Office Assistant: Signed 15-Nov-2014 Discharge Instruction Result: Comments: See Note; NOTES: [facility] Medical Records Department [address] [place] [address] Discharge Instruction 11/15/141924 MR#: [id number] Acct: [id number] Name: HANNA CHAVEZ Rep #: [id number] : 1950 64 From: Shruthi Savage DO [...] problems, contact your doctor. Call [facility] ([phone]) or report to the [facility] Emergency Room. Call 911 if necessary. 11/15/141927 <Electronically signed by Shruthi Savage DO> Date Shruthi Savage DO Co signer Signature (If Indicated): Date CC: Carla Hughes MD 15-Nov-2014 CTA Chest W/WO Contrast Result: Comments: See Note; NOTES: [facility] Imaging Services [address] [place] [address] CAT Scan Report MR#: [id number] Acct: [id number] Name: HANNA CHAVEZ Rep #: [id number] : 1950 F 64 From: Chele Puckett MD PCP: Carla Hughes MD Status: REG ER Study: CTA Chest W/WO Contrast Date of Exam: 11/15/14 Exam# [id number] Ordering Dr: Shruthi Savage DO STUDY: CTA [...] MD at 19:05 EDT , Service support [phone], CC: Carla Hughes MD; Shruthi Savage DO Senior Court Office Assistant: Signed 15-Nov-2014 Chest PA and Lateral Result: Comments: See Note; NOTES: [facility] Imaging Services [address] [place] [address] Radiology Report MR#: [id number] Acct: [id number] Name: HANNA CHAVEZ Rep #: [id number] : 1950 F 64 From: Martín Morales MD PCP: Carla Hughes MD Status: DEP ER Study: Chest PA and Lateral Date of Exam: 11/15/14 Exam# [id number] Ordering Dr: Shruthi Savage DO STUDY: X- [...] Martín Morales MD at 9:28 EDT Tel [phone], Service support [phone], 0062 RAD/Chest PA and Lateral IMPRESSION: No acute abnormality is seen. Electronically Signed: Martín Morales MD at 9:28 EDT Tel [phone], Service support [phone], CC: Carla Hughes MD; Shruhti Savage DO Senior Court Office Assistant: Signed 29-Dec-2013 L/S Spine Min 4 Views Result: Comments: See Note; NOTES: [facility] Imaging Services [address] [place] [address] Radiology Report MR#: [id number] Acct: [id number] Name: HANNA CHAVEZ Rep #: [id number] : 1950 F 63 From: Nirmal Watts PCP: Carla Hughes MD Status: REG CLI Study: L/S Spine Min 4 Views Date of Exam: 12/29/13 Exam# [id number] Ordering Dr: Carla Hughes MD STUDY: X-RAY [...] DO at 23:38 EDT , Service support [phone], CC: Carla Hughes MD Senior Court Office Assistant: Signed Immunization Name Dates Details Influenza (3 years and up) on: 20-Mar-2009 Comments: Lot #[id number]-left deltoidgiven by:CDH Family History Unknown Family Member [...] 1.92 m2 :31 [facility] 97.2 f Pulse 86 /min Comments: [...] :57 Comments: Glaucoma screening done at the [facility] yearly Temperature 97.9 f Pulse 66 /min [...] kg/m2 Body Surface Area Calculated 1.92 m2 58-Lbu-889167:36 Temperature 99 f Comments: Method: Oral Pulse [...] Value Details :56 BNP,B-Type NATRIURETIC PEPTIDE Comments: [address] [place], [place], [address] B-TYPE FATOUMATA PEP 147.4 pg/mL (Abnormal) Range: 0-100 :56 Magnesium Comments: [address] [place], [place], [address] MG 2.1 mg/dL (Normal) Range: 1.6-2.6 :56 Prealbumin Comments: [address] [place], [place], [address] PREALBUMIN 19.2 mg/dL (Abnormal) Range: 20.0-40.0 :04 CBC W/Diff, Automated Comments: [facility] [address] [place], [address] Absolute Lymph 1.95 {X10_3/ul} (Normal) Range: 0.83-4.51 [...] 4.2-5.4 WBC 6.5 K/mm3 (Normal) Range: 4.4-11.0 89-Ljk-563686:04 Comprehensive Metabolic Profil Comments: [facility] [address] [place], [address] GAP 5 (Normal) Range: 5-15 CO2 26.0 [...] Comments: Please note revised GLUCOSE reference range nkghuzolk21/02/2018. 16-Sdi-490916:32 CBC W/Diff, Automated Comments: [facility] [address] [place], [place], [address] Absolute Lymph 1.39 {X10_3/ul} (Normal) Range: 0.83-4.51 [...] 4.2-5.4 WBC 4.9 K/mm3 (Normal) Range: 4.4-11.0 81-Ngo-909374:32 Comprehensive Metabolic Profil Comments: Comments: [facility] [address] [place], [place], [address] GAP 6 (Normal) Range: 5-15 CO2 27.0 [...] Comments: Please note revised GLUCOSE reference range nofygvnxr15/02/2018. 17-Rkb-967056:32 Thyroid Stim Hormone (TSH) Comments: Comments: [facility] [address] [place], [place], [address] TSH 1.47 {uIU/mL} (Normal) Range: 0.358-3.74 59-Kzc-178756:51 Vitamin B12 > 2000 pg/mL (Abnormal) Comments: [facility] [address] [place], [place], [address] Range: 211-911 39-Imf-678989:11 CBC W/Diff, Automated Comments: [facility] [address] [place], [place], [address] Absolute Lymph 1.66 {X10_3/ul} (Normal) Range: 0.83-4.51 [...] 4.2-5.4 WBC 5.9 K/mm3 (Normal) Range: 4.4-11.0 60-Mrz-426390:11 Comprehensive Metabolic Profil Comments: [facility] [address] [place], [place], [address] GAP 8 (Normal) Range: 5-15 CO2 26.0 [...] Comments: Please note revised GLUCOSE reference range zaavaibrv21/02/2018. 23-Vph-540646:47 Culture, Urine Comments: [facility] [address] [place], [place], [address] CUUR See Note (Normal) Comments: Urine CultureORGANISM 1: Mixed Gram Pos AND Gram Neg OrgColony Count 50,000-80,000MIX CULTURE Mixed contaminants. Submit a new specimen if indicated. :47 Urinalysis, Complete Comments: How was Urine Obtained? CLEAN [facility] [address] [place], [place], [address] MUCUS, URINE 0 SEEN {/hpf} (Normal) BACTERIA [...] BELOW (Normal) Comments: Visual Urine Color: GREEN 78-Nii-260171:41 TSH (14312) Comments: PATIENT NOT FASTINGPERFORMED BY: [facility] HospitalSoqhdb6612 [facility] [id number] TSH 2.310 {uIU/mL} (Normal) Range: 0.450-4.500 58-Kah-541499:28 URINE DELMAR CULTURE-IDENTIFICATN Comments: PATIENT NOT FASTINGPERFORMED BY: [facility]6370 [facility] [id number] Information: SRC:UR (80950) Result 1 MUG (Normal) Comments: Mixed urogenital flora1,000 Colonies/mL Urine Culture,Comprehensive Final report (Normal) 73-Vgc-609989:41 Metabolic Panel, Comprehensive Comments: PATIENT NOT FASTINGPERFORMED BY: [facility] [id number] (08504) ALT (SGPT) 16 [iU]/L (Normal) Range: 0-32 [...] 8-27 Glucose 89 mg/dL (Normal) Range: 65-99 75-Nvt-707477:02 Urinalysis, Office (55520) UA - LEUKOCYTE ESTERASE Small (Normal) UA - NITRITE Negative (Normal) URINE UROBILINGN JEROME TIMED Normal mg/dL (Normal) UA - PROTEIN Negative mg/dL (Normal) UA - PH 7.5 (Normal) UA - BLOOD Negative (Normal) UA - SPECIFIC GRAVITY 1.020 (Normal) UA - KETONES Negative mg/dL (Normal) UA - BILIRUBIN Negative (Normal) UA - GLUCOSE Negative (Normal) 34-Bkt-096555:54 LDH (LD) (LACTATE DEHYDROGENASE) Comments: PATIENT NOT FASTINGPERFORMED BY: [employer] Yzbifi2424 [facility] [id number] (34901) LDH 191 [iU]/L (Normal) Range: 119-226 41-Qdi-469849:54 RHEUMATOID FACTOR-QUANT (21484) Comments: PATIENT NOT FASTINGPERFORMED BY: [facility] Xriyvx8945 [facility] [id number] RA Latex Turbid. <10.0 {IU/mL} (Normal) Range: 0.0-13.9 91-Jkt-163254:54 C-Reactive Protein (45055) Comments: PATIENT NOT FASTINGPERFORMED BY: [employer] Rqffdp8861 [facility] [id number] C-Reactive Protein, Quant 6.1 mg/L (Abnormal) Range: 0.0-4.9 :54 SED RATE ERYTHROCYTE (71513) Comments: PATIENT NOT FASTINGPERFORMED BY: [facility] Gssjve3983 [facility] [id number] Sedimentation Rate-Westergren 16 mm/h (Normal) Range: 0-40 9-Mqk-876443:40 CPK Total, Creatine Kinase Comments: 48[facility] [address] [place], [place], [address] CPK TOTAL 68 U/L (Normal) Range: 26-192 26-Sis-035656:12 Culture, Urine Comments: [facility] [address], [place], [address] CUUR See Note (Normal) Comments: Urine CultureORGANISM [...] $ <=20 S(NF) indicates non-formulary drug at [facility]. Approval by Infectious Disease Specialist required before non- formulary drugs may be ordered and/or dispensed. 37-Tmn-510827:12 Urinalysis, Routine (Dipstick) Comments: How was Urine Obtained? CLEAN [facility] [address] [place], [place], [address] LEUK ESTERASE 500 /ul (Abnormal) OCCULT BLOOD-UR 50 /ul (Abnormal) NITRITE UR Positive (Abnormal) UROBILI Normal mg/dL (Normal) PROT DIPSTX 100 mg/dL (Abnormal) pH UR 6.0 (Normal) Range: 5.0 - 8.0 SP.GR. DIPSTX 1.025 (Normal) Range: 1.002-1.030 KETONE UR Negative mg/dL (Normal) BILIRUBIN URINE Negative mg/dL (Normal) GLUCOSE, UR Normal mg/dL (Normal) CLARITY Cloudy (Normal) COLOR Yellow (Normal) 85-Yde-391583:15 CBC W/Diff, Automated Comments: [facility] [address] [place], [address] Absolute Lymph 1.50 {X10_3/ul} (Normal) [...] 4.2-5.4 WBC 4.6 K/mm3 (Normal) Range: 4.4-11.0 01-Hyt-278691:15 Comprehensive Metabolic Profil Comments: [facility] [address] [place], [address] GAP 7 (Normal) Range: 5-15 CO2 28.0 mmol/L (Normal) Range: 21.0-32.0 CL 106 mmol/L (Normal) Range: 98-107 K 3.6 mmol/L (Normal) Range: 3.5-5.1 NA 141 mmol/L (Normal) Range: 136-145 T BILI 0.60 mg/dL (Normal) Range: 0.20-1.00 ALT 27 U/L (Normal) Range: 13-56 Comments: Please note revised ALT reference range dpmbjagcf80/28/2018. ALK P 68 U/L (Normal) Range: 45-117 [...] A.D.A. criteria.Please note revised GLUCOSE reference range /02/2018. 6-Dfi-502964:59 CPK Total, Creatine Kinase Comments: [facility] [address] [place], [place], [address] CPK TOTAL 55 U/L (Normal) Range: 26-192 0-Ytv-584872:59 GGTP 140 U/L (Abnormal) Comments: [facility] [address] [place], [address] Range: 5-55 24-Jun-20179:50 CBC W/Diff, Automated Comments: [facility] [address] [place], [place], [address] Absolute Lymph 1.40 {X10_3/ul} (Normal) Range: 0.83-4.51 [...] Range: 4.4-11.0 24-Jun-20179:50 Comprehensive Metabolic Profil Comments: [facility] [address] [place], [place], [address] GAP 7 (Normal) Range: 5-15 CO2 28.0 [...] <126 mg/dLsuggests IMPAIRED HOMEOSTASIS per A.D.A. criteria. 85-Zsj-302222:00 CBC W/Diff, Automated Comments: [facility] [address] [facility] [place], [place], [address] ; Dr iFore Absolute Lymph 1.66 {X10_3/ul} (Normal) Range: 0.83-4.51 [...] 4.2-5.4 WBC 5.2 K/mm3 (Normal) Range: 4.4-11.0 84-Tyd-176327:00 Comprehensive Metabolic Profil Comments: [facility] [address] [place], [address] GAP 5 (Normal) Range: 5-15 CO2 27.0 [...] 7-18 GLU 106 mg/dL (Normal) Range: 70-110 78-Idf-599982:00 CBC W/Diff, Automated Comments: [facility] [address] [place], [place], [address] ; rheum Absolute Lymph 1.83 {X10_3/ul} (Normal) [...] 4.2-5.4 WBC 5.8 K/mm3 (Normal) Range: 4.4-11.0 78-Yua-315555:00 Comprehensive Metabolic Profil Comments: [facility] [address] [place], [place], [address] ; Dr moreno GAP 7 (Normal) Range: [...] 7-18 GLU 98 mg/dL (Normal) Range: 70-110 33-How-833683:39 CBC W/Diff, Automated Comments: [facility] [address] [place], [address] SMEAR COMMENT SCANNED (Normal) Absolute Lymph 0.54 [...] 4.2-5.4 WBC 11.4 K/mm3 (Abnormal) Range: 4.4-11.0 40-Dgf-977471:39 Comprehensive Metabolic Profil Comments: [facility] [address] [place], [place], [address] GAP 10 (Normal) Range: 5-15 CO2 23.0 [...] 126 mg/dLsuggests DIABETES MELLITUS per A.D.A. criteria. 68-Tmb-012583:39 Lipase Comments: [facility] [address] [place], [place], [address] LIPASE 86 U/L (Normal) Range: 73-393 :01 Pap IG (Image Comments: Source.............Cervix;EndocervixNo. of containers..01 CYTYC Thin Prep VialPATIENT NOT FASTINGPERFORMED BY: =G [facility] [address] [id number] BY: WB [facility] Guided) rp Kvuvajgkzg606 [facility] [id number] Note: PAPSMR (Normal) Comments: The Pap smear [...] Prep VialPATIENT NOT FASTINGPERFORMED BY: =G [facility] Wzyfwvkbgb249 [facility] [id number] BY: WB [facility] ([address]) (no STD rp Ajznexhrom519 [facility] [id number] Information: [id number]-[id number]; ov in 2 weeks testing) Age Gdln ACOG Testing AGE4 (Normal) Comments: <21 or >65 or no age provided 66-Xyy-735122:55 CBC W/Diff, Automated Comments: [facility] [facility] [address] [place], [place], [id number] Absolute Lymph 1.88 {X10_3/ul} (Normal) Range: 0.83-4.51 [...] 4.2-5.4 WBC 5.7 K/mm3 (Normal) Range: 4.4-11.0 :55 Comprehensive Metabolic Profil Comments: [facility] [address] [place], [place], [address] GAP 7 (Normal) Range: 5-15 CO2 28.0 [...] 7-18 GLU 84 mg/dL (Normal) Range: 70-110 :52 CBC W/Diff, Automated Comments: [facility] [address] [place], [place], [id number] Absolute Lymph 1.74 {X10_3/ul} (Normal) Range: 0.83-4.51 [...] 4.2-5.4 WBC 5.0 K/mm3 (Normal) Range: 4.4-11.0 70-Xxu-228907:52 Comprehensive Metabolic Profil Comments: [facility] [address] [place], [place], [address] GAP 6 (Normal) Range: 5-15 CO2 29.0 [...] 7-18 GLU 107 mg/dL (Normal) Range: 70-110 51-Ytl-962078:52 Vitamin D,25 Hydroxy Comments: [facility] [address] [place], [place], [id number] Vitamin D 25-OH 23.6 ng/mL (Normal) Comments: Vitamin D 25(OH) Status Range Deficiency <20 ng/mL (50nmol/L) Insuffciency 20 - 30 ng/mL (50 - 75 nmol/L) Sufficiency 30 - 100 ng/mL (75 - 250 nmol/L) Toxicity >100 ng/mL (>250 nmol/L) 00-Ikx-925571:34 URINE DELMAR CULTURE-JEROME COL Comments: PATIENT NOT FASTINGPERFORMED BY: [facility]CoThe [facility] HospitalAwfyfj0964 [facility] [id number] Information: SRC:URC [id number] COUNT ([id number]) Result 1 MUG (Normal) Comments: Mixed urogenital floraGreater than 100,000 colony forming units per mL Urine Culture,Comprehensive Final report (Normal) 02-Nqo-232984:21 Urinalysis, Office (88288) UA - LEUKOCYTE ESTERASE Trace (Normal) UA - NITRITE Negative (Normal) URINE UROBILINGN JEROME TIMED Normal mg/dL (Normal) UA - PROTEIN Negative mg/dL (Normal) UA - PH 6.0 (Normal) Comments: 5.5 UA - BLOOD Negative (Normal) UA - SPECIFIC GRAVITY 1.030 (Abnormal) UA - KETONES Negative mg/dL (Normal) UA - BILIRUBIN Negative (Normal) UA - GLUCOSE Negative (Normal) 09-Dni-471425:10 CBC W/Diff, Automated Comments: [facility] [address] [place], [place], [address] Absolute Lymph 1.44 {X10_3/ul} (Normal) Range: 0.83-4.51 [...] 4.2-5.4 WBC 4.3 K/mm3 (Abnormal) Range: 4.4-11.0 42-Kii-061464:10 Comprehensive Metabolic Profil Comments: [facility] [address] [place], [address] GAP 3 (Abnormal) Range: 5-15 CO2 28.0 [...] 126 mg/dLsuggests DIABETES MELLITUS per A.D.A. criteria. :10 Vitamin D,25 Hydroxy Comments: [facility] [address] [place], [address] Vitamin D 25-OH 20.8 ng/mL (Normal) Comments: Vitamin D 25(OH) Status Range Deficiency <20 ng/mL (50nmol/L) Insuffciency 20 - 30 ng/mL (50 - 75 nmol/L) Sufficiency 30 - 100 ng/mL (75 - 250 nmol/L) Toxicity >100 ng/mL (>250 nmol/L) 24-Tzr-223251:16 CBC W/Diff, Automated Comments: [facility] [address] [place], [place], [address] ; ordered by another doctor Absolute Lymph [...] 4.2-5.4 WBC 5.1 K/mm3 (Normal) Range: 4.4-11.0 83-Qew-163703:16 Comprehensive Metabolic Profil Comments: [facility] [address] [place], [address] ; ordered by another doctor GAP 7 [...] 7-18 GLU 87 mg/dL (Normal) Range: 70-110 29-Amf-850322:16 Vitamin D,25 Hydroxy Comments: [facility] [address] [place], [address] ; ordered by another doctor Vitamin D 25-OH 33.2 ng/mL (Normal) Comments: Vitamin D 25(OH) Status Range Deficiency <20 ng/mL (50nmol/L) Insuffciency 20 - 30 ng/mL (50 - 75 nmol/L) Sufficiency 30 - 100 ng/mL (75 - 250 nmol/L) Toxicity >100 ng/mL (>250 nmol/L) :22 CBC W/Diff, Automated Comments: [facility] [address] [place], [place], [address] Absolute Lymph 1.19 {X10_3/ul} (Normal) Range: 0.83-4.51 [...] 4.2-5.4 WBC 4.6 K/mm3 (Normal) Range: 4.4-11.0 0-Lgu-171935:22 Comprehensive Metabolic Profil Comments: [facility] [address] [place], [place], [address] GAP 3 (Abnormal) Range: 5-15 CO2 29.0 [...] 7-18 GLU 100 mg/dL (Normal) Range: 70-110 2-Uxe-123402:22 Lipid Profile Comments: [facility] [address] [place], [place], [address] VLDL 16 mg/dL (Normal) Range: 5-40 LDL [...] 200-240 mg/dL Borderline >240 mg/dL High Risk 6-Nxs-884129:22 Thyroid Stim Hormone (TSH) Comments: [facility] [address] [place], [place], [phone] TSH 1.39 {uIU/mL} (Normal) Range: 0.358-3.74 66-Zxt-108855:30 CBC W/Diff, Automated Comments: Comments: IVT TO DRAW OFF PORTHas pt arrived? YTest performed at:[facility] [address] [place] [address] Absolute Lymph 1.56 {X10_3/ul} (Normal) [...] 4.2-5.4 WBC 4.7 K/mm3 (Normal) Range: 4.4-11.0 88-Iiw-575180:30 Comprehensive Metabolic Profil Comments: Has pt arrived? YComments: IVT TO DRAW FROM PORTTest performed at:[facility] [address] [place] [address] GAP 8 (Normal) Range: 5-15 CO2 27.0 [...] Comments: Please note revised CREATININE reference range dfbwidbkx66/22/2015. BUN 21 mg/dL (Abnormal) Range: 7-18 GLU 133 mg/dL (Abnormal) Range: 70-110 Comments: Fasting Glucose result greater than or equal to 126 mg/dLsuggests DIABETES MELLITUS per A.D.A. criteria. 11-Iou-666137:30 Vitamin D,25 Hydroxy Comments: Has pt arrived? YTest performed at:[facility] [address] [place] [address] Vitamin D 25-OH 22.5 ng/mL (Normal) Comments: Vitamin D 25(OH) Status Range Deficiency <20 ng/mL (50nmol/L) Insuffciency 20 - 30 ng/mL (50 - 75 nmol/L) Sufficiency 30 - 100 ng/mL (75 - 250 nmol/L) Toxicity >100 ng/mL (>250 nmol/L) 51-Nta-958355:42 D-Dimer Quantitative (DVT/PE) Comments: Test performed at:[facility] [address] [place] [address] D-DIMER QUANT 0.54 {FEU/ug/m} (Abnormal) Range: 0.27-0.49 Comments: D-Dimer ELEVATED (>0.49): Additional studies and clinicalassessments are indicated to conclude diagnosis of:Deep Vein Thrombosis (DVT) or Pulmonary Embolism (PE)CRITICAL VALUE CALLED TO [place] [address]/2 02/02 4964 Ze[address] Griffin.RESULTS READ BACK BY SAME . 12-Jwx-864377:39 Lipase Comments: Test performed at:[facility] [address] [place] [address] LIPASE 96 U/L (Normal) Range: 70-290 14-Sqf-108521:22 BNP,B-Type NATRIURETIC PEPTIDE Comments: Test performed at:[facility] [address] [place] [address] B-TYPE FATOUMATA PEP 124.8 pg/mL (Abnormal) Range: 0-100 17-Uuh-182111:22 CBC W/Diff, Automated Comments: Test performed at:[facility] [address] [place] [address] Absolute Lymph 2.09 {X10_3/ul} (Normal) [...] 4.2-5.4 WBC 5.9 K/mm3 (Normal) Range: 4.4-11.0 59-Gnd-608799:22 CK-MB Quantitative and Index Comments: Test performed at:[facility] [address] [place], [place] [id number] CPKMB 0.7 ng/mL (Normal) Range: 0.0-5.0 Comments: CK-MB and RI Interpretation MB Relative Index Non-AMI <or= 5 NA Indeterminate > 5 <or= 4 AMI > 5 > 4 CPK TOTAL 97 U/L (Normal) Range: 26-192 14-Slf-641431:22 Comprehensive Metabolic Profil Comments: 'TROP' Serial specimen #1, #2, #3, or #4: 1Test performed at:[facility] [address] [place] [address] GAP 9 (Normal) Range: 5-15 [...] 126 mg/dLsuggests DIABETES MELLITUS per A.D.A. criteria. 23-Hst-187166:22 Troponin-I Comments: 'TROP' Serial specimen #1, #2, #3, or #4: 1Test performed at:[facility] [address] [place] [address] TROPONIN-I < 0.02 ng/mL (Normal) Comments: TROPONIN-I EXPECTED VALUES <0.05 NEGATIVE 0.06 - 0.59 AT RISK OF [place] > OR = 0.60 SUGGEST [place] 70-Iiv-976679:20 Urinalysis, Complete Comments: Order Date: 11/15/14How was Urine Obtained? CLEAN CATCHTest performed at:[facility] [address] [place] [id number] AMORPHOUS 1+ PHOS (Normal) MUCUS, URINE 0 [...] CLARITY Sl. Cloudy (Normal) COLOR Yellow (Normal) 35-Ulb-395788:00 CBC W/Diff, Automated Comments: Comments: IVT TO DRAWTest performed at:[facility] [address] [place], [place] [address] Absolute Lymph 1.62 {X10_3/ul} (Normal) Range: 0.83-4.51 [...] 4.2-5.4 WBC 5.8 K/mm3 (Normal) Range: 4.4-11.0 11-Llj-437777:00 Comprehensive Metabolic Profil Comments: Comments: IVT TO DRAWTest performed at:[facility] [address] [place] [address] GAP 4 (Abnormal) Range: 5-15 CO2 27.0 [...] 126 mg/dLsuggests DIABETES MELLITUS per A.D.A. criteria. 92-Vch-013244:25 CBC W/Diff, Automated Comments: Test performed at:[facility] [address] [place] [address] Absolute Lymph 1.28 {X10_3/ul} (Normal) Range: 0.83-4.51 [...] 4.2-5.4 WBC 5.0 K/mm3 (Normal) Range: 4.4-11.0 21-Fjq-286735:25 Comprehensive Metabolic Profil Comments: Test performed at:[facility] [address] [place] [address] GAP 4 (Abnormal) Range: 5-15 CO2 29.0 [...] 7-18 GLU 100 mg/dL (Normal) Range: 70-110 67-Nur-028973:21 URINE DELMAR CULTURE-JEROME COL Comments: PATIENT NOT FASTINGPERFORMED BY: [facility] Dibvmn7668 [facility] [id number] Information: SRC:UR [id number] COUNT ([id number]) Result 1 MUG (Normal) Comments: Mixed urogenital flora1,000 Colonies/mL Urine Culture,Comprehensive Final report (Normal) 58-Jrs-890755:35 Urinalysis, Office (28325) UA - LEUKOCYTE ESTERASE Trace (Normal) UA - NITRITE Negative (Normal) URINE UROBILINGN JEROME TIMED Normal mg/dL (Normal) UA - PROTEIN Negative mg/dL (Normal) UA - PH 6.0 (Normal) Comments: 5.5 UA - BLOOD Negative (Normal) UA - SPECIFIC GRAVITY 1.030 (Abnormal) UA - KETONES Negative mg/dL (Normal) UA - BILIRUBIN Negative (Normal) UA - GLUCOSE Negative (Normal) 4-Zqf-524073:15 CBCD ALC 1.51 {X10_3/ul} (Normal) Range: 0.83-4.51 [...] 4.2-5.4 WBC 5.7 K/mm3 (Normal) Range: 4.4-11.0 1-Psu-505129:15 CMP Comments: Comments: FAX RESULTS TO DR. [...] or Folic Acid Supplements? N Range: 3.1-17.5 :01 Urinalysis, Office (07427) UA - LEUKOCYTE ESTERASE Negative (Normal) UA - NITRITE Negative (Normal) URINE UROBILINGN JEROME TIMED Normal mg/dL (Normal) UA - PROTEIN Negative mg/dL (Normal) UA - PH 5 (Abnormal) UA - BLOOD Negative (Normal) UA - SPECIFIC GRAVITY 1.025 (Normal) UA - KETONES Negative mg/dL (Normal) UA - BILIRUBIN Negative (Normal) UA - GLUCOSE Negative (Normal) 1-Zgs-152116:52 CBCD ALC 1.26 {X10_3/ul} (Normal) Range: 0.83-4.51 [...] 126 mg/dLsuggests DIABETES MELLITUS per A.D.A. criteria. :52 SED tSEDRATE 32 mm/h (Abnormal) Range: 0-30 :21 iPBE 0 mmol/L (Normal) :21 iPCO2 40.0 {mmHg} (Normal) Range: 35-45 :21 iPH 7.41 (Normal) Range: 7.35-7.45 :21 iPO2 83 {mmHG} (Normal) Range: 75-100 :21 iTCO2 26 mmol/L (Normal) :21 iTHCO3 25 mmol/L (Normal) Range: 22-26 Comments: Site = L BrachialAllens Test = POSDevice = Room AirResults To = OTHERTime Given = 915 :21 gMX4IOY 96 % (Normal) Range: 95-99 :21 iTYPE ART (Normal) 5-Wrz-601612:37 Rapid Flu (66025 x 2) Comments: neg Influenza A Ag negative a and b (Normal) 0-Ffs-744756:59 Influenza A&B Viral Comments: neg; PATIENT NOT FASTINGPERFORMED BY: [facility]CoThe [facility] HospitalYjleil9160 [facility] [id number] Information: SRC:NOS [id number] Culture (43687) Viral Culture,Rapid,Influenza FLUABN (Normal) Comments: Negative:No Influenza A or B detected. B12 274 pg/mL (Normal) Comments: COMMENTS: FAX RESULTS TO AISLINN SCOTT DRAW :05 Range: 211-911 Comments: Effective 201221-Sep-20127-Jqy-042328:05 CBCD Comments: COMMENTS: FAX RESULTS TO DR. [...] 4.2-5.4 WBC 5.1 {k/mm3} (Normal) Range: 4.4-11.0 5-Nms-516048:05 CMP Comments: COMMENTS: FAX RESULTS TO DR. [...] 7-18 GLU 87 mg/dL (Normal) Range: 70-110 5-Alr-012993:05 FOL 22.20 ng/mL (Abnormal) Comments: COMMENTS: FAX RESULTS TO AISLINN SCOTT DRAW Range: 3.1-17.5 29-Rvc-034203:08 CALCIFEDIOL (59697) Comments: PATIENT NOT FASTINGPERFORMED BY: [facility]CoThe [facility] HospitalCliurd8432 [address] CraigCarolin[facility] Continue[facility] [place] [id number] Information: [id number] Vitamin D, 25-Hydroxy 47.6 ng/mL (Normal) Range: 30.0-100.0 Comments: Vitamin D deficiency has been defined by the [place] ofMedicine and an Endocrine Society practice guideline as alevel of serum 25-OH vitamin D less than 20 ng/mL (1,2).The Endocrine Society went on to further define vitamin Dinsufficiency as a level between 21 and 29 ng/mL (2).1. IOM ([employer] of Medicine). 2010. Dietary reference intakes for calcium and D. [place]: The National Academies Press.2. Stacia MF, Mago MONTE, Meliza MAGDALENO, et al. Evaluation, treatment, and prevention of vitamin D deficiency: an Endocrine Society clinical practice guideline. JCEM. 2010; 96(7):1911-30. 0-Nau-883457:18 BILAT SCRN DIGITAL & CAD Radiology Report [...] Morales M.D.May 04 012 at 2:58:08 PM [id number] Signed GP/GP If you are the referring physician and would like to consult with theradiologist who provided this interpretation, please contact Valdo bettencourt M.D. at [phone]. If this radiologist is unavailable, youwill be directed to another radiologist to assist. If you are a patient with a question regarding this report, pleasecontactyour refe rring physician directly. Professional Interpretation Provided By: [employer], Phone , These documents contain legally protected [...] destructionofthese documents. Dictated on 04/26/12 1418 by Milo Morales MDranscribed on 05/04/12 1511 by ITS IMPORTSign by Martín Morales MD on 05/04/12 151 Sign by: Martín Morales MD 06-Apr-2012 TSH 2.25 {uIU/mL} Range: 0.358-3.74 10:00 (Normal) 05-Apr-2012 VITD 21.7 ng/mL Comments: RE-COLLECT 10:08 (Abnormal) Range: 30.0-100.0 Comments: Vitamin D deficiency has been defined by the [place] of[employer] and an Endocrine Society practice guideline as alevel of serum 25-OH vitamin D less than 20 ng/mL (1,2).The Endocrine Society went on to further define vitamin Dinsufficiency as a level between 21 and 29 ng/mL (2).1. IOM ([employer] of Medicine). 2010. Dietary reference intakes for calcium and D. [place]: The National Academies Press.2. Stacia MF, Mago MONTE, Meliza MAGDALENO, et al. Evaluation, treatment, and prevention of vitamin D deficiency: an Endocrine Society clinical practice guideline. JCEM. 2010; 96(7): 1911-30.Performed at: [facility] [address] [id number] Director: Meeta Hickman MD, Phone: [phone] 48-Nwo-492029:44 LIPID VLDL 14 mg/dL (Normal) Range: 5-40 [...] 200-240 mg/dL Borderline >240 mg/dL High Risk 71-Gpn-251296:35 Urinalysis, Office (58188) UA - BILIRUBIN Small (Normal) UA - BLOOD Negative (Normal) UA - GLUCOSE Negative (Normal) UA - KETONES Small mg/dL (Normal) Comments: trace UA - LEUKOCYTE ESTERASE Negative (Normal) UA - NITRITE Negative (Normal) UA - PH 5.0 (Normal) UA - PROTEIN Trace mg/dL (Normal) UA - SPECIFIC GRAVITY 1.025 (Normal) URINE UROBILINGN JEROME TIMED Normal mg/dL (Normal) 35-Tjg-693542:07 CBC with manual diff Comments: PATIENT NOT FASTINGPERFORMED BY: [facility] [address] [id number] Information: [id number] (73321) Immature Grans (Abs) 0.0 {x10E3/uL} (Normal) Range: [...] 3.80-5.10 WBC 5.6 {x10E3/uL} (Normal) Range: 4.0-10.5 84-Hkh-392485:07 Metabolic Panel, Comprehensive Comments: PATIENT NOT FASTINGPERFORMED BY: [facility]CoThe [facility] HospitalMbuzge8893 [facility] [id number] (60056) Alkaline Phosphatase, S 50 [iU]/L (Normal) Range: [...] Glucose, Serum 97 mg/dL (Normal) Range: 65-99 37-Uvl-92764:00 SPINE, CERVICAL (ROUTINE) Radiology See Note Comments: [...] n 06/18/101755 Sign by: [place] 04-Msx-693497:49 RENAL CO2 28.0 mmol/L (Normal) Range: 21.0-32.0 [...] 0.6-1.0 GLU 102 mg/dL (Normal) Range: 70-110 27-Szl-80847:00 CERV SPINE,MIN 4 VIEWS Radiology Report See [...] 06/05/101512 by Amari WorleyxTranscribed on 06/05/101512 by YAMEL PAGESONSign by Alena Worley on 06/09/10 0855 Sign by: Alena Worley 21-Sgd-618201:55 CALCIFEDIOL (91751) Comments: PATIENT NOT FASTINGPERFORMED BY: [facility]6370 [facility] [id number] Information: [id number] Vitamin D, 25-Hydroxy 36.1 ng/mL (Normal) Range: 32.0-100.0 Comments: Recent studies consider the lower limit of 32.0 ng/mL to be athreshold for optimal health.Froylan BHAKTA. J Nutr. 2004;135(2):317-22. 06-Aba-493843:53 CBCD ABSOLUTE NEUT 3.6 3/uL (Normal) Range: [...] 11.6-14.6 WBC 6.2 K/mm3 (Normal) Range: 4.4-11.0 32-Gnk-682264:53 COMP METABOLIC A/G 1.0 {RATIO} (Normal) Range: [...] (Normal) GLU 82 mg/dL (Normal) Range: 70-110 68-Alk-225596:33 ALDOLASE 2030 4.7 U/L (Normal) Range: 1.2-7.6 Comments: Performed at: [facility] [address] [id number] Director: Meeta Hickman MD 27-Ned-247894:33 CBCD ABSOLUTE NEUT 2.6 3/uL (Normal) Range: [...] 11.6-14.6 WBC 4.9 K/mm3 (Normal) Range: 4.4-11.0 64-Lsm-861494:33 COMP METABOLIC Comments: LIVER TEST TO CL [...] (Normal) Comments: LIVER TEST TO Range: 21-215 :33 D BILI 0.12 mg/dL (Normal) Comments: LIVER TEST TO Range: 0.00-0.30 45-Kvg-993519:46 COMPLETE UA BACTERIA RARE {/hpf} (Normal) MUCUS, [...] CK-BB 0 % (Normal) Comments: Performed at: - [facility] [id number] Director: Meeta Hickman MD CK-MB 0 % (Normal) Range: 0-3 CK-MM 100 % (Normal) Range: 97-100 Macro I 0 % (Normal) Macro II 0 % (Normal) CPK,TOTAL,SERUM 59 U/L (Normal) Range: 24-173 :46 PTH,Intact 57 pg/mL (Normal) Range: 14-72 :46 TSH 1.06 {uIU/mL} (Normal) Range: 0.358-3.74 :29 ALDOLASE 2030 9.1 U/L (Abnormal) Range: 1.2-7.6 Comments: Performed at: - [facility] [id number] Director: Saul Cuadra MD :29 COMP METABOLIC [...] TOTAL 356 U/L (Abnormal) Range: 21-215 :29 [facility] . (Normal) Comments: MYOGLOBIN, SERUM 121 H ng/mL 25 - 58 TESTING PERFORMED AT [facility]. ORIGINAL REPORT ONFILE IN LAB [...] U/L (Abnormal) Range: 1.2-7.6 Comments: Performed at: [address] [id number] Director: Saul Cuadra MD :03 CKMB CKRI 0.2 % (Normal) Range: 0.0-1.4 Comments: RELATIVE INDEX >1.5% IS PRESUMPTIVELY POSITIVE CPKMB 18.3 ng/mL (Abnormal) Range: 0.0-5.0 Comments: CK-MB and RI Interpretation MB Relative IndexNon-AMI <or= 5 NAIndeterminate > 5 <or= 4AMI > 5 > 4 CPK TOTAL 8135 U/L (Abnormal) Range: :03 CPK TOTAL 8135 U/L (Abnormal) Range: 21-215 [...] 4.2-5.4 WBC 4.1 K/mm3 (Abnormal) Range: 4.4-11.0 75-Fiw-548824:18 COMP METABOLIC CL 104 mmol/L (Normal) Range: [...] 0.6-1.0 GLU 109 mg/dL (Normal) Range: 70-110 59-Gnn-366955:10 Rapid Strep Test, Office (42002) Rapid Strep Test, Office Negative (Normal) 9-Hys-453826:56 CALCIFEDIOL (36126) Comments: PATIENT NOT FASTINGPERFORMED BY: [facility]CoThe [facility] HospitalMfewoa4795 [facility] [id number] Information: [id number] Vitamin D, 25-Hydroxy 19.7 ng/mL (Abnormal) Range: 32.0-100.0 Comments: Recent studies consider the lower limit of 32.0 ng/mL to be athreshold for optimal health.Froylan BHAKTA. J Nutr. 2004;135(2):317-22. 25-Ppt-885899:10 ABDOMEN/PELVIS WITH CONTRAST Radiology Report See Note (Normal) Comments: Exam Number: [id number] CLINICAL:58 year old woman with abnormal blood [...] surgically absent. Reported By: LOREN MALCOLM M.D. :15 TRANSVAGINAL NON-PREG US () Radiology Report See Note (Normal) Comments: Exam Number: [id number] CLINICAL:58-year-old female post menopausal with positive beta-hCG [...] weeks recommended. Reported By: WILLIE BOLIVAR M.D. 26-Npd-031739:55 PELVIC (NON-PREG) () Radiology Report See Note (Normal) Comments: Exam Number: [id number] CLINICAL:58-year-old female post menopausal with positive beta-hCG [...] Nonpreg Comments: Result: POSITIVE TEST is *POSITIVE* 65-Ymf-784462:28 ,URINE HCGUQUAL SeeNote m[iU]/mL (Normal) Comments: Result: Negative 19-Lvh-385146:17 DELMAR CULTURE-OTHER (73666) Comments: PATIENT NOT FASTINGClinical Information: SRC:THRT ADD [id number] PERFORMED BY: [employer] Cftjdg5424 [facility] [id number] Result 1 RRF (Normal) Comments: Routine respiratory gabriella Upper Respiratory Culture Final report (Normal) 43-Meo-210298:03 LQD PAP [id number] Comments: CYTOLOGY INFORMATION:- CLINICAL INFORMATION: - DATE LMP/MENOPAUSE: 1998 LMP- COLLECTION VIAL: Thin Prep Vial- O AND M SUPERVISOR SOURCE: CERVICAL/ENDOCERVICAL- COLLECTION TECHNIQUE: BRUSH/SPATULA ADEQ Comment (Normal) Comments: Satisfactory for evaluation. Endocervical and/or squamous metaplasticcells (endocervical component) are present. COMM . (Normal) DIAGN Comment (Normal) Comments: NEGATIVE FOR INTRAEPITHELIAL LESION AND MALIGNANCY. HPV RFLX Comment (Normal) Comments: The HPV DNA reflex criteria were not met with this specimenresult therefore, no HPV testing was performed. .Performed At: [address] [id number] [facility] Comment (Normal) Comments: The Pap smear is a screening test designed to aid in thedetection of premalignant and malignant conditions of theuterine cervix. It is not a diagnostic procedure andshould not be used as the sole means of detecting cervicalcancer. Both false-positive and false-negative reports dooccur. . PERFORM Comment (Normal) Comments: Ashwin Blanc, Research And Development Manager (ASCP) 61-Ool-466842:52 Microscopic Examination Comments: PATIENT WAS FASTINGPERFORMED BY: [employer]6370 [facility] [id number] Bacteria Few (Normal) Epithelial Cells (non renal) None seen {/hpf} (Normal) Range: 0 - 10 RBC None seen {/hpf} (Normal) Range: 0 - 3 WBC 0-5 {/hpf} (Normal) Range: 0 - 5 07-Ilu-288644:52 MICROALBUMIN: CREATININE RATIO Comments: PATIENT WAS FASTINGPERFORMED BY: [facility]6370 [facility] [id number] (13548) AND (51999) Creatinine, Urine 353.6 mg/dL (Abnormal) Range: 15.0-278.0 Microalb/Creat Ratio 5.4 {ug/mg_creat} (Normal) Range: 0.0-30.0 Microalbumin, Urine 19.2 ug/mL (Abnormal) Range: 0.0-17.0 50-Scq-675711:52 URINALYSIS (47370) Comments: PATIENT WAS FASTINGPERFORMED BY: [place] 1140370 [facility] [id number] Appearance Clear (Normal) Bilirubin Negative (Normal) Glucose Negative (Normal) Ketones Negative (Normal) Microscopic Examination See below: (Normal) Nitrite, Urine Negative (Normal) Occult Blood Negative (Normal) pH 8.0 (Abnormal) Range: 5.0-7.5 Protein 1+ (Abnormal) Specific [place] 1.010 (Normal) Range: 1.005-1.030 Urine-Color Yellow (Normal) Urobilinogen,Semi-Qn 0.2 mg/dL (Normal) Range: 0.0-1.9 WBC Esterase Negative (Normal) 84-Hny-008380:52 Metabolic Panel, Comprehensive Comments: PATIENT WAS FASTINGPERFORMED BY: [facility]6370 [facility] [id number] (54856) A/G Ratio 1.6 (Normal) Range: 1.1-2.5 Albumin, [...] Sodium, Serum 144 mmol/L (Normal) Range: 135-145 88-Drb-438461:52 Lipid Panel (38143) Comments: PATIENT WAS FASTINGPERFORMED BY: [facility] [place] [id number] Cholesterol, Total 237 mg/dL (Abnormal) Range: 100-199 [...] Cholesterol García 19 mg/dL (Normal) Range: 5-40 93-Wmy-505665:52 CBC with manual diff (17524) Comments: PATIENT WAS FASTINGClinical Information: ADD WILFREDO FEE 305707 ADD J 12013 PERFORMED BY: [facility] [id number] [employer] [place] [id number] Baso (Absolute) 0.1 {x10E3/uL} (Normal) Range: 0.0-0.2 [...] Well woman exam : *Well Female Maintenance ([facility]) Indication: Well woman exam Well woman exam : Pap/Pelvic/Bimanual/Rectal/Breast Exam was done. Indication: Well woman exam Dry eye syndrome : Follow up if no improvement or if symptoms worsen Indication: Dry eye syndrome Facial pressure : Eprescribed prescriptions ([id number]) Indication: Facial pressure Insomnia : [facility] Indication: Insomnia Vitamin D deficiency, unspecified : [...] pain : Follow up on Wednesday with [facility] Indication: Back pain Carnitine deficiency : [...] : FOLLOW UP IN 3 MONTHS with [facility] Indication: Unspecified inflammatory polyarthropathy Vitamin D deficiency, [...] Indication: DEPRESSIVE DISORDER (311.0) Planned Observations PREALBUMIN (69441)Indication: Malnutrition On: 70-Huy-103462:05 Request MAGNESIUM (90015)Indication: Hypocalcemia On: 62-Plh-574506:05 Request BNTP (91648)Indication: Leg swelling On: 97-Rhi-688527:59 Request TSH (97811)Indication: Leg pain On: 77-Mtm-190108:42 Request CBC, Platelets & Auto Diff ([id number])Indication: Leg pain On: 80-Vbr-290463:42 Request Metabolic Panel, Comprehensive (53410)Indication: Leg pain On: 50-Uja-349272:42 Request Vitamin B-12 (cyanocobalamin) (72741)Indication: B12 deficiency On: 71-Rgk-396823:55 Request CPK TOTAL & ISOENZYMES (72645)Indication: Pain in unspecified joint On: 81-Lhy-387202:03 Request URINE DELMAR CULTURE-IDENTIFICATN (59306)Indication: Dysuria On: 18-Qzz-517433:16 Request URINALYSIS (57239)Indication: Dysuria On: 85-Mwm-808171:16 Request CALCIFEDIOL (38330)Indication: Postmenopausal (Renamed from Postmenopausal status) On: 9-Jyk-161885:50 Request HPV automatic (82097)Indication: Screening for HPV (human papillomavirus) (Renamed from Encounter for screening for human papillomavirus (HPV)) On: 5-Dtl-198763:49 Request Metabolic Panel, Comprehensive (86126)Indication: DM (diabetes mellitus screen) On: 43-Zbd-289068:24 Request TSH (79999)Indication: Screening for deficiency anemia On: :23 Request CBC, Platelets & Auto Diff (34712)Indication: Screening for deficiency anemia On: :23 Request Lipid Panel (57115)Indication: Screening for hyperlipidemia On: :23 Request VITAMIN B12 AND FOLATES (63834)Indication: Leg pain On: 8-Cbz-335363:27 Request HEPATIC FUNCTION PANEL (58062)Indication: Hypercholesteremia On: 06-Emg-295114:15 Request CBC with manual diff (63748)Indication: Carnitine deficiency On: 25-Olk-631169:10 Request Metabolic Panel, Comprehensive (88326)Indication: Arthritis On: 29-Ben-654172:10 Request LIPID PANEL (64956)Indication: Hypercholesteremia On: 08-Umb-493460:10 Request CBC (AUTO) (34932)Indication: FATIGUE On: 2-Ozx-784183:24 Request METABOLIC PANEL, COMPREHENSIVE (43690)Indication: FATIGUE On: 4-Kou-828437:24 Request Folate (61351)Indication: FATIGUE On: :24 Request VITAMIN B-12 (CYANOCOBALAMIN) (81150)Indication: FATIGUE On: 1-Enr-455549:24 Request TSH (44036)Indication: DEPRESSIVE DISORDER (311.0) On: 04-Hwa-534042:16 Request CBC with manual diff (18316)Indication: Myopathy NOS On: 1-Yrp-086539:03 Request Metabolic Panel, Comprehensive (44231)Indication: DEPRESSIVE DISORDER (311.0) On: 2-Xlq-422392:03 Request Lipid Panel (92307)Indication: Hypercholesteremia On: 4-Jew-885075:03 Request CALCIFEDIOL (57236)Indication: Vitamin D deficiency, unspecified On: 0-Gwt-814879:02 Request Renal function Panel (86264)Indication: Neck pain On: 10-Zqu-040236:14 Request CALCIFEDIOL (45830)Indication: Vitamin D deficiency, unspecified On: 26-Jun-20099:26 Request Comments: draw Beginning September 2009 TEST - SERUM QUANTITATIVE (HCG) (99882)Indication: Abnormal blood chemistry On: 25-Cvy-083843:06 Request PREGNACY TEST, URINE (86401)Indication: Abnormal blood chemistry On: :06 Request Lipid Panel (20873)Indication: Hypercholesteremia On: 58-Kfe-221519:16 Request Comments: fasting Rapid Strep Test, Office (50837)Indication: Pharyngitis, acute On: 48-Gqg-166336:04 Request Thin prep Pap (42227)Indication: Well woman exam On: 03-Nou-737537:09 Request FECAL OCCULT HGB ASSAY- tubes sent home (60804)Indication: Well woman exam On: 51-Kcp-792765:54 Request OCCULT BLOOD FECES SCREEN- card done in office (72169)Indication: Well woman exam On: 32-Bup-312944:54 Request CPK TOTAL & ISOENZYMES (13633)Indication: Myalgia and myositis On: 59-Jhp-428090:37 Request CALCIFEDIOL (66903)Indication: Leg cramps On: 69-Bss-398430:36 Request VITAMIN B-12 (CYANOCOBALAMIN) (14531)Indication: Pain in unspecified joint On: 02-Hzu-822321:35 Request PARATHORMONE (15068)Indication: Myalgia and myositis On: 02-Txj-790497:35 Request RHEUMATOID FACTOR-QUANT (66238)Indication: Pain in unspecified joint On: 81-Wlh-813398:15 Request SED RATE ERYTHROCYTE (67205)Indication: Pain in unspecified joint On: 92-Nso-147151:15 Request Planned Encounters Medical; 2 Week FU - On: 24-May-2018 15:30 [facility] Aislinn Espinal CNP, CNP, Mary E Planned Procedures Venous Doppler - LeftBy: Teddy ZACHERY, On: 02-May-2018 Intent Aislinn Leonard CNP Aerosol Treatment (27354)By: Teddy On: 28-Mar-2018 Intent Aislinn BINGHAM CNP, Mary E Flu Vaccine (Quadrivalent) 45763Fe: On: 28-Mar-2018 Intent Aislinn Espinal CNP, CNP, Mary E Comments: Lot #[id number]-L dltd, IMDose prefilled syringegiven by: VENANCIO Noriega reviewed and ABN signed B 12 Injection, 1000 mcg (J3420)By: On: 10-Mar-2018 Intent Pamela Bates Comments: Vitamin B12 1000 mcg injectionLot--[id number]--04/2019R Delt IMpt tolerated wellCHRISTOPHE NORIEGA Solu -Medrol Injection, 125 mg On: 03-Dec-2017 Intent (J2930)By: Teddy Aislinn BINGHAM CNP, Mary E Radiology - Foot - LeftBy: Teddy On: 03-Dec-2017 Intent Aislinn BINGHAM CNP, Mary E Radiology - ChestBy: Teddy Aislinn BINGHAM On: 23-Dec-2016 Intent E Aislinn Espinal CNP Ear Irrigation ([id number])By: Teddy On: 18-Dec-2016 Intent Aislinn BINGHAM CNP, Mary E Wax CurettesBy: Teddy Aislinn BINGHAM On: 18-Dec-2016 Intent Ailsinn Espinal CNP Aerosol Treatment (77484)By: Teddy On: 18-Dec-2016 Intent Aislinn BINGHAM CNP, Mary E Wax CurettesBy: Pamela Bates On: 01-Dec-2016 Intent Ear Irrigation ([id number])By: Paulo On: 01-Dec-2016 Marvin Santiago Comments: Ear Irrigation performed on:rightAmount/color removed cerumen:small OUtcome:clear and tolerated PNEUM VAC ADLT/IMUMNOSPR, SBC/INTRM On: 19-May-2016 Intent (75301)By: Teddy Aislinn BINGHAM CNP, Mary E Flu Vaccine (Quadrivalent) 21134Rp: On: 12-May-2016 Intent Swethanylakayli BINGHAMAislinn CNP, Mary E Comments: FLUlot: [id number]:11/04site:Lt deltoidroute:IMdose:.5mlDEMICK MA DEXA SCAN AXIAL SKELETON (89761)By: On: 22-Apr-2016 Intent Teddy BINGHAM Aislinn Aragon Swethakathi ZACHERY Aislinn Aragon Pap Smear, Medicare ([id number])By: Teddy On: 22-Apr-2016 Intent Aislinn BINGHAM CNP, Mary E FLU VACCINE H1N1 (G9142)By: Teddy On: 06-Mar-2015 Intent Aislinn BINGHAM ZACHERY Aislinn Aragon Comments: Lot:[id number]:12/19/15Dose:0.5mLRoute:IMSite:L DltdGiven By:MIKE signed ADMINISTRATION OF H1N1 INFLUENZA On: 06-Mar-2015 Intent VIRUS VACCINE (G9141)By: Teddy BINGHAM Aislinn Aragon Swethakathi ZACHERY Aislinn Aragon DEXA SCAN AXIAL SKELETON (66600)By: On: 06-Mar-2015 Intent Teddy BINGHAM Aislinn Aragon Swethakathi ZACHERY Aislinn Aragon MAMMOGRAM, SCREENING, BOTH BREAST On: 06-Mar-2015 Intent ([id number])By: Teddy BINGHAM Divya Cikathi ZACHERY Divya ANNUAL DEPRESSION SCREENING, 15 On: 06-Mar-2015 Intent MINUTES (G0444)By: Teddy BINGHAM Aislinn Aragon Swethanylakayli BINGHAM Divya Venous Doppler - LeftBy: Teddy BINGHAM, On: 29-Aug-2014 Intent DivyaMargo Espinal CNP Aislinn Aragon MARY ALICE (Ankle Brachial Index) On: 29-Aug-2014 Intent (59603)By: Teddy BINGHAM Aislinn Aragon Swethakathi ZACEHRY Aislinn Aragon SPECIMEN HANDLING/TRANSPORT On: 16-May-2014 Intent ([id number])By: Teddy BINGHAM Aislinn Aragon Swethakathi ZACHERY Aislinn Aragon Flu Vaccine (Quadrivalent) 19354Pt: On: 19-Apr-2014 Intent Teddy BINGHAM Aislinn Espinal ZACHERY Aislinn Aragon Comments: lot:[id number]:dose:0.5mLRoute: IMlocation: L armgiven by: msmith ADMINISTRATION OF INFLUENZA VIRUS On: 19-Apr-2014 Intent VACCINE ([id number])By: Mckenzie Zhao Radiology - Lumbar SpineBy: Ciesa On: 29-Dec-2013 Intent TRAFFIC WORKFORCE REPRESENTATIVE, Divya Cinylaa TRAFFIC WORKFORCE REPRESENTATIVE, Divya Toradol Injection, 30 mg ([id number])By: On: 29-Dec-2013 Intent Ciesa TRAFFIC WORKFORCE REPRESENTATIVE, Divya Ciesa TRAFFIC WORKFORCE REPRESENTATIVE, Divya Ear Irrigation (89608)By: Eben On: 19-Apr-2013 Intent Mayela LONDONO Comments: Ear Irrigation performed on:bilateralAmount/color removed cerumen:small amount of darkl brown waxOUtcome:clearUsed wax curettes FLU VAC, SPLIT, >3 YEARS, INTRAMUSC On: 19-Apr-2013 Intent (57368)By: Pamela Crooks LPN Comments: Lot:[id number]:6.14Amt:0.5mlRoute:IMSite: L DltdGiven By: Alejandra CMAVIS signed IMMUNIZ ADMNIN, 1 VAC, SNGL/COMBO On: 19-Apr-2013 Intent ([id number])By: Pamela Crooks LPN Wax CurettesBy: Mayela Treadwell DO On: 19-Apr-2013 Intent Eprescribed prescriptions (G8553)By: On: 19-Apr-2013 Intent Pamela Crooks LPN B 12 Injection, 1000 mcg (J3420)By: On: 28-Dec-2012 Intent Kassie Tellez LPN B 12 Injection, 1000 mcg (J3420)By: On: 29-Nov-2012 Intent Pattie Malagon LPN Comments: Lot: [id number]: [id number]: 1000mcg/1mlRoute: IMSite: L deltoidGiven by: CHRISTOPHE Allen B 12 Injection, 1000 mcg (J3420)By: On: 26-Oct-2012 Intent Jina Gomes LPN Comments: Lot #[id number]/14Site-right deltoidDose-1 mlgiven by: Rishabh Gomes LPN B 12 Injection, 1000 mcg (J3420)By: On: 11-Oct-2012 Intent Deedee Cantrell Comments: lot: [id number]:06/03site/route: L deltoid/IMamt: 1ccVIS signed when applicableArmindaANDIE vásquez B 12 Injection, 1000 mcg (J3420)By: On: 05-Oct-2012 Intent Teddy BINGHAM Divya Cikathi ZACHERYAislinn B 12 Injection, 1000 mcg (J3420)By: On: 27-Sep-2012 Intent Valencia Renee Comments: Lot:[id number]:06/03Dose:1mlRoute:IMSite:kiko buenoGiven By:BRYNN signed IMMUNIZ ADMNIN, 1 VAC, SNGL/COMBO On: 29-Mar-2012 Intent (15537)By: Aislinn Espinal CNP Comments: lot # [id number]- 12/18/1295pyww-[id number]-BOnbwr- 0.5 MLCJericho SAEED CNP Divya MAMMOGRAM, SCREENING, BOTH BREASTS On: 29-Mar-2012 Intent (23958)By: Aislinn Espinal CNP, CNP Divya FLU VAC, SPLIT, >3 YEARS, INTRAMUSC On: 29-Mar-2012 Intent (35962)By: Aislinn Espinal CNP, CNP Divya MRI -Cervical Spine (IV Contrast On: 11-Jun-2010 Intent Needed)By: Aislinn Espinal CNP, CNP Divya Radiology - Cervical SpineBy: Eben On: 05-Jun-2010 Intent DO Mayela Aerosol Treatment (30772)By: Teddy On: 03-Sep-2009 Intent ZACHERY DivyaMargo Espinal CNP Divya Pulse Oximetry (77047)By: Teddy BINGHAM, On: 06-May-2009 Intent Aislinn Espinal CNP Divya Aerosol Treatment (03873)By: Teddy On: 06-May-2009 Intent Aislinn BINGHAM CNP Divya IMMUNIZ ADMNIN, 1 VAC, SNGL/COMBO On: 20-Mar-2009 Intent (51199)By: Aislinn Espinal CNP, CNP Divya FLU VAC, SPLIT, >3 YEARS, INTRAMUSC On: 20-Mar-2009 Intent (85094)By: Aislinn Espinal CNP Comments: Lot #[id number]-left deltoidgiven by:Aislinn LEMONS CNP CT - Abdomen & Pelvis (IV Contrast On: 14-Mar-2009 Intent Needed)By: Aislinn Espinal CNP, CNP, Mary E Ultrasound - PelvisBy: Teddy BINGHAM, On: 14-Mar-2009 Intent Aislinn Leonard CNP Comments: attention adrenals and ovaries SPECIMEN HNDLNG/TRNSPRT, OFFC > LAB On: 18-Jan-2009 Intent (43222)By: Aislinn Espinal CNP, CNP, Mary E DXA, BONE DENSITY, AXIAL SKELETON On: 13-Nov-2008 Intent (00173)By: Aislinn Espinal CNP, CNP, Mary E MAMMOGRAM, SCREENING, BOTH BREASTS On: 13-Nov-2008 Intent (50980)By: Aislinn Espinal CNP, CNP, Mary E ELECTROCARDIOGRAM, COMPLETE (ECG) On: 11-Oct-2008 Intent (14754)By: Aislinn Espinal CNP, CNP, Mary E Planned Medications INJECTION, KETOROLAC TROMETHAMINE, PER 15 MG Ordered: 29-Dec-2013 Pending Aislinn Espinal CNP, CNP, Mary E INJECTION, METHYLPREDNISOLONE SODIUM SUCCINATE, UP TO 125 MG Ordered: 03-Dec-2017 Pending Aislinn Espinal CNP, CNP, Mary E Vitamin B-12 1000 MCG/ML Injection Solution Ordered: 27-Sep-2012 Pending Valencia Renee Vitamin B-12 1000 MCG/ML Injection Solution Ordered: 05-Oct-2012 Pending Aislinn Espinal CNP, CNP, Mary E Vitamin B-12 1000 MCG/ML Injection Solution Ordered: 11-Oct-2012 Pending Deedee Cantrell Vitamin B-12 1000 MCG/ML Injection Solution Ordered: 26-Oct-2012 Pending Jnia Gomes LPN Vitamin B-12 1000 MCG/ML Injection [...] D deficiency, unspecified : DISCONTINUED - CALCIFEDIOL (24702) Indication: Vitamin D deficiency, unspecified B12 deficiency : Patient Instructions Indication: B12 deficiency Encounters Annotation/Addendum On: 11-May-2018 14:26 Encounter Diagnosis: Unspecified [...] for Shingles: follow up ER visit from [facility] End: 08-May-2015 12:08 nations secondary from [...] bathroom. The patient has completed the followi preventative measures: PAP smear, mammography and colonoscopy (2012). The patient does not have durable power of pumping station supervisor or living will. The patient has noticed feeling helpless (feels depressed jasiel etimes). Other providers contributing to the patient's care are subsurface augmentee operator (Dr Genao) and other: (Neuro Danielle Mariee at [facility]).Encounter Diagnosis: Annual Medicare Physical (V70.0), Breast [...] patient does not have durable power of pumping station supervisor or living will. The patient has noticed staying at home rather than doing something new or going out and lack of energy. Other providers contributing to the patient's care are subsurface augmentee operator and other: (neuromuscular specKraig Manriquez). [facility] [...] continum I was at [facility] yesterday Encounter Diagnosis: DEPRESSIVE DISORDER (311.0), [...] Patient has been compliant with instructions. [facility] End: 25-Jun-2009 15:08 cation use: no side [...] extremity edema (782.3) [facility] Payers MedicareAnthem/SupplementHanna Chavez; kayli guarantor
--- OUTSIDE RECORDS SUMMARY | 2018-07-15 04:47 | XMS RPT_ITS | Continuity of Care Document ---
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 Manriquez at [facility] getting carotene weekly IV twice a day [...] Quantity: 30 {Tablet} Refills: 0 Ordered:19-Jun-2016 Teddy BINGHAM Aislinn ARCHULETAluca BINGHAM Aislinn Aragon Start : 19-Jun-2016 Active Delsym 30 MG/5ML Oral Suspension Extended Release 1 (one) Milliliter Milliliter TAD for 0 days Quantity: 120 {Milliliter} Refills: 0 Ordered:02-May-2018 Katy Reyes Start : 28-Mar-2018 Active LAC-HYDRIN TWELVE, 12% (External Lotion) 1 (one) Lotion Lotion bid for 0 days Quantity: 1 {Bottle} Refills: 0 Ordered:11-Oct-2015 Teddy BINGHAM Aislinn Ema BINGHAM Aislinn Aragon Start : 11-Oct-2015 Active Medrol 4 MG Oral Tablet Therapy Pack 1 (one) Tablet TAD for 0 days Quantity: 1 {Package} Refills: 0 Ordered:28-Mar-2018 Teddy BINGHAM Aislinn Ema BINGHAM Aislinn Aragon Start : 28-Mar-2018 Active Comments:with [...] {Tablet} Refills: 3 Ordered:15-Apr-2018 Teddy BINGHAM Aislinn Ema BINGHAM Aislinn Aragon Start : 15-Apr-2018 Active ProAir HFA 108 (90 Base) MCG/ACT Inhalation Aerosol Solution 2 (two) Puff Puff tid prn for 0 days Quantity: 1 {Inhaler} Refills: 3 Ordered:10-Mar-2018 Katy Reyes Start : 10-Mar-2018 Active PROzac 20 MG Oral Capsule 1 Capsule qd for 0 days Quantity: 90 {Capsule} Refills: 3 Ordered:28-Mar-2018 Teddy BINGHAM, Aislinn Boo CNP Aislinn Aragon Start : 28-Mar-2018 Active Sulindac 150 MG Oral Tablet 1 Tablet qod for 0 days Quantity: 30 {Tablet} Refills: 0 Ordered:19-May-2016 Teddy BINGHAM, Aislinn Boo CNP, Aislinn Aragon Start : 19-May-2016 Active Comments:oredered by Christophe TRAZODONE HCL, 50MG (Oral Tablet) 1 Tablet qhs / HS PRN for 0 days Quantity: 30 {Tablet} Refills: 11 Ordered:11-Oct-2015 Teddy BINGHAM, Aislinn Boo CNP Aislinn Aragon Start : 11-Oct-2015 Active Comments:ordered by Lester Ultram 50 MG Oral Tablet 1 (one) Tablet daily prn for pain for 0 days Quantity: 30 {Tablet} Refills: 0 Ordered:02-May-2018 Teddy ZACHERY, Aislinn Boo CNP Aislinn Aragon Start : 02-May-2018 Active Comments:thirty [...] Refills: 0 Ordered:09-Aug-2009 Teddy BINGHAM, Aislinn Boo CNP Aislinn Aragon Start : 09-Aug-2009 End : 19-Aug-2009 Inactive Cefdinir 300 MG Oral Capsule 1 (one) Capsule bid for 7 days Quantity: 14 {Capsule} Refills: 0 Ordered:08-Feb-2018 Teddy BINGHAM, Aislinn Boo CNP, Aislinn Aragon Start : 08-Feb-2018 End : 15-Feb-2018 Inactive CIPRO, 500MG (Oral Tablet) 1 (one) Tablet bid for 7 days Quantity: 14 {Tablet} Refills: 0 Ordered:16-May-2014 Teddy BINGHAM, Aislinn Boo CNP, Aislinn Aragon Start : 16-May-2014 End : 23-May-2014 Inactive Ciprofloxacin HCl 500 MG Oral Tablet 1 (one) Tablet PO BID x 10 days for 10 days Quantity: 20 {Tablet} Refills: 0 Ordered:16-Nov-2017 Pamela Bates Start : 16-Nov-2017 End : 26-Nov-2017 Inactive Clotrimazole 10 MG Mouth/Throat Jess 1 (one) Jess 5x daily for 10 days Quantity: 50 {Jess} Refills: 0 Ordered:18-Dec-2016 Teddy BINGHAM, Aislinn Boo CNP, Aislinn Aragon Start : 18-Dec-2016 End : 28-Dec-2016 Inactive Diflucan 150 MG Oral Tablet 1 (one) Tablet Tablet x1 repeat in 72 hrs for 0 days Quantity: 2 {Tablet} Refills: 0 Ordered:01-Dec-2016 Pamela Bates Start : 22-Apr-2016 End : 01-Dec-2016 Inactive Doxycycline Monohydrate 100 MG Oral Capsule 1 (one) Capsule bid for 10 days Quantity: 20 {Capsule} Refills: 0 Ordered:18-Dec-2016 Teddy BINGHAM, Aislinn Boo CNP, Aislinn Aragon Start : 18-Dec-2016 End : 28-Dec-2016 Inactive ERGOCALCIFEROL, 13644ZDJW (Oral Capsule) 1 (one) Capsule twice weekly [...] 3 days then 1 tab tid NYSTATIN, 708922GXLL/ML (Mouth/Throat Suspension) 4 Milliliter qid for 7 days Quantity: 1 {qs} Refills: 0 Ordered:23-Dec-2010 Teddy RUBY DEVELOPER, Aislinn Boo RUBY DEVELOPER, Aislinn Aragon Start : 23-Dec-2010 End : 30-Dec-2010 Inactive [...] days Quantity: 30 {Tablet} Refills: 0 Ordered:22-Apr-2016 Baldemarrb CHRISTOPHE Diamante Start : 11-Oct-2015 End : 22-Apr-2016 Discontinued Dymista 137-50 MCG/ACT Nasal Suspension 2 (two) Puff daily for 0 days Quantity: 1 {Bottle} Refills: 0 Ordered:22-Apr-2016 Ann SAEED Diamante Start : 17-Jan-2016 End : 22-Apr-2016 Discontinued LAC-HYDRIN, 12% (External Cream) 1 Cream twice daily for 0 days Quantity: 1 {Cream} Refills: 0 Ordered:11-Oct-2015 Ann SAEED Diamante Start : 12-Apr-2012 End : 11-Oct-2015 Discontinued [...] days Quantity: 1 {Aerosol_Soln} Refills: 6 Ordered:11-Oct-2015 Austin Juarez LPNa Start : 29-Nov-2012 End : 11-Oct-2015 Discontinued TRAMADOL HCL, 50MG (Oral Tablet) 1 (one) Tablet q4h prn for 0 days Refills: 0 Ordered:25-Oct-2008 Aislinn Boykin CNP, CNP, Aislinn Aragon Start : 25-Oct-2008 End : 25-Oct-2008 Discontinued Comments:prescribed by Dr. Batista VITAMIN D, 1000UNIT (Oral Capsule) 1 (one) Capsule daily for 0 days Quantity: 30 {Capsule} Refills: 0 Ordered:11-Oct-2015 Austin Juarez LPNa Start : 21-Sep-2012 End : 11-Oct-2015 Discontinued VITAMIN D, 2000UNIT (Oral Tablet) 1 qd for 0 days Refills: 0 Ordered:11-Oct-2015 Ann SAEED Diamante Start : 11-Apr-2012 End : 11-Oct-2015 Discontinued VITAMIN D, 00257YCZF (Oral Capsule) 1 (one) Capsule twice weekly for 0 days Quantity: 24 {Capsule} Refills: 0 Ordered:16-Oct-2009 Geoff SAEEDKassie Start : 16-Oct-2009 End : 07-May-2010 Discontinued Comments:This order discontinued per [employer]. Vitamin D3 5000 UNIT Oral Tablet 1 (one) Tablet weekly for 30 days Refills: 0 Ordered:22-Apr-2016 Ann SAEEDDiamante Start : 11-Oct-2015 End : 22-Apr-2016 Discontinued [...] Operative Report Result: Comments: See Note; NOTES: [facility] Medical Records Department [address] [place] [address] Operative Report 01/25/18 1254 MR#: [id number] Acct: [id number] Name: HANNA CHAVEZ Rep #: [id number] : 1950 67 From: Vaishnavi Dietz MD PCP: Aislinn Boykin NP Status: REG [facility] Y Location: [place] [address] Problem List (1) Urinary tract infection Status: Acute Report of Operation Date of Procedure: 01/25/18 Pre-Operative Diagnosis: urinary tract infection, pelvic pain Post-Operative Diagnosis: same and rectocele Surgery/Procedure Performed:: cystoscopy and pelvic exam under anesthesi a Description of Surgical Findings:: normal cystoscopy. very short anterior vaginal wall. grade 3 rectocele. atrophy. senior interactive developer: Vaishnavi Dietz Type of Anesthesia:: MAC Specimen's [...] Discharge Instruction Result: Comments: See Note; NOTES: [facility] Medical Records Department [address] [place] [address] Instructions for Home/Discharge Instructions 01/25/18 1228 MR#: [id number] Acct: [id number] Name: HANNA CHAVEZ Rep #: [id number] : 1950 67 From: Vaishnavi Dietz MD PCP: Aislinn Boykin NP Status: REG [facility] Discharge Diet: No Restrictions Discharge Activity: Return [...] DAILY 05/23/13 Triamcinolone Acetonide [Nasacort Aq Nasal Force] 2 spray NASAL DAILY PRN 05/23/13 Levocarnitine [...] and Bladder Result: Comments: See Note; NOTES: [facility] Imaging Services [address] [place] [address] Kidney and Bladder MR#: [id number] Acct: [id number] Name: HANNA CHAVEZ Rep #: [id number] DO B: 1950 F 67 From: Tee Weems PCP: Aislinn Boykin NP Status: REG CLI Study: Kidney and Bladder Date of Exam: 01/17/18 Exam# [id number] Ordering Dr: Vaishnavi Dietz MD STUDY: RENAL [...] CC: Aislinn Boykin NP; Vaishnavi Dietz MD Oracle Adf Developer: Signed 29-Dec-2017 Transvaginal Non- Result: Comments: See Note; NOTES: [facility] Imaging Services [address] [place] [address] Transvaginal Non- MR#: [id number] Acct: [id number] Name: HANNA CHAVEZ Rep #: [id number] : 1950 F 67 From: Jacky Hanson MD PCP: Aislinn Boykin NP Status: REG CLI Study: Transvaginal Non- Date of Exam: 12/29/17 Exam# [id number] Ordering Dr: Vaishnavi Dietz MD STUDY: U [...] CC: Aislinn Boykin NP; Vaishnavi Dietz MD Oracle Adf Developer: Signed 09-Dec-2017 Downtime Report Result: Comments: See Note; NOTES: [facility] Medical Records Department [address] [place] [address] Downtime Report MR#: [id number] Acct: [id number] Name: HANNA CHAVEZ Rep #: [id number] : 1950 67 From: Elmer Moreno PCP: Aislinn Boykin NP Status: REG CLI This patient was seen during an EMR downtime November 22, 2017 - November 29, 2017. This patient may have a combination of paper and electronic documentation or all paper documentation. All documentation is viewable within the e-chart portion of [facility] for each patient visit. 09-Dec-2017 Downtime Report Result: Comments: See Note; NOTES: [facility] Medical Records Department [address] [place] [address] Downtime Report MR#: [id number] Acct: [id number] Name: HANNA CHAVEZ Rep #: [id number] : 1950 67 From: Elmer Moreno PCP: Aislinn Boykin NP Status: REG CLI This patient was seen during an EMR downtime November 22, 2017 - November 29, 2017. This patient may have a combination of paper and electronic documentation or all paper documentation. All documentation is viewable within the e-chart portion of [facility] for each patient visit. 03-Dec-2017 Foot min 3 Views Result: Comments: See Note; NOTES: [facility] Imaging Services [address] [place] [address] Foot min 3 Views MR#: [id number] Acct: [id number] Name: NIKO CHAVEZApolinar Thapa Rep #: [id number] : 1950 F 67 From: Yahir Wolfe MD PCP: Aislinn Boykin NP Status: REG CLI Study: Foot min 3 Views Date of Exam: 12/03/17 Exam# [id number] Ordering Dr: Aislinn Boykin STUDY: X-RAY - [...] Service support , CC: Aislinn Boykin NP Oracle Adf Developer: Signed 23-Dec-2016 Chest PA and Lateral Result: Comments: See Note; NOTES: [facility] Imaging Services [address] [place] [address] Verdana 4d Chest PA and Lateral MR#: [id number] Acct: [id number] Name: HANNA CHAVEZ Rep #: [id number] : 1950 F 66 From: Juan Woody MD PCP: Aislinn Boykin Status: REG CLI Study: Chest PA and Lateral Date of Exam: 12/23/16 Exam# [id number] Ordering Dr: Danielle Manriquez MD STUDY: X-RAY [...] , Service support , CC: Aislinn Manriquez Oracle Adf Developer: Signed 05-Jul-2016 Discharge Instruction Result: Comments: See Note; NOTES: [facility] Medical Records Department [address] [place] [address] Discharge Instruction 07/05/162116 MR#: [id number] Acct: [id number] Name: JOSH CHAVEZ Rep #: [id number] : 1950 66 From: Sarabjit Salinas MD [...] your Primary Care Provider. Call [facility] ([phone]) or report to the closest Emergency Room. Call 911 if necessary. 07/05/16 21 19 <Electronically signed by Sarabjit Salinas MD> Date Sarabjit Salinas MD Cosigner Signature (If Indicated): Date CC: Aislinn Boykin 05-Jul-2016 Emergency Department Summary Result: Comments: See Note; NOTES: [facility] Medical Records Department [address] [place] [address] Emergency Department Summary 07/05/162113 MR#: [id number] Acct: [id number] Name: HANNA CHAVEZ Rep #: [id number] : 1950 66 From: Sarabjit Salinas MD [...] Patient: Chief Complaint: GI Bleed Referrals: Aislinn Boykin [Primary Care Provider] - What to do if you have Prob lems For any increased pain, shortness of breath, bleeding, nausea or vomiting, chest pain, or any unexpected problems, contact your Primary Care Provider. Call [facility] ([phone]) or repor t to the closest Emergency Room. Call 911 if necessary. 07/05/162116 <Electronically signed by Sarabjit Salinas MD> Date Sarabjit Salinas MD Cos igner Signature (If Indicated): Date CC: Aislinn Boykin 16-Apr-2015 Emergency Department Summary Result: Comments: See Note; NOTES: [facility] Medical Records Department [address] [place] [address] Emergency Department Summary MR#: [id number] Acct: [id number] Name: HANNA CHAVEZ Rep #: [id number] : 1950 64 From: Breanna Ryan MD [...] was at 3:00 a.m. She comes in tod ay for pain control. PHYSICAL EXAMINATION: VITAL SIGNS: [...] pain. Breanna Ryan MD T: NTS JOB: [id number] 04/16 2359 <Electronically signed by Breanna Ryan MD> Date Breanna Ryan MD Cosigner Signature (If Indicated): Date _ CC: Carla Hughes MD Date Dictated: 04/15/15816 Date Transcribed: 04/15/15816 Oracle Adf Developer: Signed 15-Apr-2015 Discharge Instruction Result: Comments: See Note; NOTES: [facility] Medical Records Department [address] [place] [address] Discharge Instruction 04/15/15808 MR#: [id number] Acct: [id number] Name: HANNA CHAVEZ Rep #: [id number] : 1950 64 From: Breanna Ryan MD [...] problems, contact your doctor. Call [facility] ([phone]) or report to the closest Emergency Room. Call 911 if necessary. 04/15/15 0818 <Electronically signed by Breanna Ryan MD> Date Breanna Ryan MD Cosigner Signature (If Indicated): Date CC: Carla Hughes MD 03-Dec-2014 Emergency Department Summary Result: Comments: See Note; NOTES: [facility] Medical Records Department [address] [place] [address] Emergency Department Summary MR#: [id number] Acct: [id number] Name: HANNA CHAVEZ Rep #: [id number] : 1950 64 From: Shruthi Savage DO PCP: Carla Hughes MD Status[facility] DATE OF SERVICE: 11/15/2014 CHIEF COMPLAINT: Dyspnea. [...] Hughes. 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 Shruthi Savage DO T: NTS JOB: [id number] 12/03/14 2329 <Electronically signed by Shruthi Savage DO> Date Thalia Savage DO CC: Carla Hughes MD Date Dictated: 11/15/141931 Date Transcribed: 11/15/141931 Oracle Adf Developer: Signed 16-Nov-2014 12 Lead Electrocardiogram Result: Comments: See Note; NOTES: [facility] Cardiovascular Services [address] [place] [address] 12 Lead EKG 11/15/14 1626 MR#: [id number] Acct: [id number] Name: HANNA CHAVEZ Rep #: [id number] : 1950 64 From: Lamont Lucas MD [...] l ECG Confirmed by LAMONT LUCAS ([id number]), greeting card editor LAKIA MORENO ([id number]) on 11/16/2014 10:58:54 AM Referred By: JERE Confirmed By:LAMONT LUCAS 11/16/14 1059 Date Lamont Lucas MD CC: Carla Hughes MD Date Dictated: 11/15/141625 Date Transcribed: 11/15/141625 Oracle Adf Developer: Signed 15-Nov-2014 Discharge Instruction Result: Comments: See Note; NOTES: [facility] Medical Records Department [address] [place] [address] Discharge Instruction 11/15/141924 MR#: [id number] Acct: [id number] Name: HANNA CHAVEZ Rep #: [id number] : 1950 64 From: Shruthi Savage DO [...] problems, contact your doctor. Call [facility] ([phone]) or report to the [facility] Room. Call 911 if necessary. 11/15/141927 <Electronically signed by Shruthi Savage DO> Date Shruthi Savage DO Co signer Signature (If Indicated): Date CC: Carla Hughes MD 15-Nov-2014 CTA Chest W/WO Contrast Result: Comments: See Note; NOTES: [facility] Imaging Services [address] [place] [address] CAT Scan Report MR#: [id number] Acct: [id number] Name: HANNA CHAVEZ Rep #: [id number] : 1950 F 64 From: Chele Puckett MD PCP: Carla Hughes MD Status: REG ER Study: CTA Chest W/WO Contrast Date of Exam: 11/15/14 Exam# [id number] Ordering Dr: Shruthi Savage DO STUDY: CTA [...] MD at 19:05 EDT , Service support [phone], CC: Carla Hughes MD; Shruthi Savage DO Oracle Adf Developer: Signed 15-Nov-2014 Chest PA and Lateral Result: Comments: See Note; NOTES: [facility] Imaging Services [address] [place] [address] Radiology Report MR#: [id number] Acct: [id number] Name: HANNA CHAVEZ Rep #: [id number] : 1950 F 64 From: Martín Morales MD PCP: Carla Hughes MD Status: DEP ER Study: Chest PA and Lateral Date of Exam: 11/15/14 Exam# [id number] Ordering Dr: Shruthi Savage DO STUDY: X- [...] Martín Morales MD at 9:28 EDT Tel [phone], Service support [phone], 0062 RAD/Chest PA and Lateral IMPRESSION: No acute abnormality is seen. Electronically Signed: Martín Morales MD at 9:28 EDT Tel [phone], Service support [phone], CC: Carla Hughes MD; Shruthi Savage DO Oracle Adf Developer: Signed 29-Dec-2013 L/S Spine Min 4 Views Result: Comments: See Note; NOTES: [facility] Imaging Services [address] [place] [address] Radiology Report MR#: [id number] Acct: [id number] Name: HANNA CHAVEZ Rep #: [id number] : 1950 F 63 From: Nirmal Watts PCP: Carla Hughes MD Status: REG CLI Study: L/S Spine Min 4 Views Date of Exam: 12/29/13 Exam# [id number] Ordering Dr: Carla Hughes MD STUDY: X-RAY [...] DO at 23:38 EDT , Service support [phone], CC: Carla Hughes MD Oracle Adf Developer: Signed Immunization Name Dates Details Influenza (3 years and up) on: 20-Mar-2009 Comments: Lot #[id number]-[id number] deltoidgiven by:CDH Family History Unknown Family Member Name Dates Details No Known Family History Status: Active Social History Name Dates Details Tobacco use: Never smoker. Status: Active Smoking Status Name Dates Details Never smoker Vital Signs Date Test Result Details 54-Bcx-923776:09 Temperature 97.9 f Comments: Method: Temporal Pulse [...] 1.92 m2 :31 Comments[facility] 97.2 f Pulse 86 /min Comments: [...] :57 Comments: Glaucoma screening done at the [facility] yearly Temperature 97.9 f Pulse 66 /min [...] 0.00 cm Results Date Description Value Details :04 CBC W/Diff, Automated Comments: [facility] [address] [place], [place], [address] Absolute Lymph 1.95 {X10_3/ul} (Normal) Range: 0.83-4.51 [...] 4.2-5.4 WBC 6.5 K/mm3 (Normal) Range: 4.4-11.0 :04 Comprehensive Metabolic Profil Comments: [facility] [address] [place], [place], [address] GAP 5 (Normal) Range: 5-15 CO2 26.0 [...] Comments: Please note revised GLUCOSE reference range yjgbomnef00/02/2018. 32-Zbm-370671:32 CBC W/Diff, Automated Comments: [facility] [address] [facility] [place], [address] Absolute Lymph 1.39 {X10_3/ul} (Normal) [...] 4.2-5.4 WBC 4.9 K/mm3 (Normal) Range: 4.4-11.0 09-Bka-999730:32 Comprehensive Metabolic Profil Comments: Comments: [facility] [address] [place], [place], [address] GAP 6 (Normal) Range: 5-15 CO2 27.0 [...] Comments: Please note revised GLUCOSE reference range isyanyrvp23/02/2018. 83-Acu-732798:32 Thyroid Stim Hormone (TSH) Comments: Comments: [facility] [address] [facility]. [place], [place], [address] TSH 1.47 {uIU/mL} (Normal) Range: 0.358-3.74 49-Aeu-216912:51 Vitamin B12 > 2000 pg/mL (Abnormal) Comments: [facility] [address] [facility] [place], [address] Range: 211-911 64-Kzi-098933:11 CBC W/Diff, Automated Comments: [facility] [address] [place], [place], [address] Absolute Lymph 1.66 {X10_3/ul} (Normal) Range: 0.83-4.51 [...] 4.2-5.4 WBC 5.9 K/mm3 (Normal) Range: 4.4-11.0 85-Hkk-191396:11 Comprehensive Metabolic Profil Comments: [facility] [address] [place], [place], [address] GAP 8 (Normal) Range: 5-15 CO2 26.0 [...] Comments: Please note revised GLUCOSE reference range bejlvbesi59/02/2018. 84-Iqz-115816:47 Culture, Urine Comments: [facility] [address] [place], [place], [address] CUUR See Note (Normal) Comments: Urine CultureORGANISM 1: Mixed Gram Pos AND Gram Neg OrgColony Count 50,000-80,000MIX CULTURE Mixed contaminants. Submit a new specimen if indicated. 85-Rhc-855592:47 Urinalysis, Complete Comments: How was Urine Obtained? CLEAN [facility] [address] [facility] [address] [place], [place], [address] MUCUS, URINE 0 SEEN {/hpf} (Normal) BACTERIA [...] BELOW (Normal) Comments: Visual Urine Color: GREEN 37-Ghq-084866:41 TSH (22319) Comments: PATIENT NOT FASTINGPERFORMED BY: HIREN [employer] Qkaben3589 [facility] [id number] TSH 2.310 {uIU/mL} (Normal) Range: 0.450-4.500 15-Qse-656647:28 URINE DELMAR CULTURE-IDENTIFICATN Comments: PATIENT NOT FASTINGPERFORMED BY: HIREN [facility] HospitalGbvxhz5787 [facility] [id number] Information: SRC:UR (02102) Result 1 MUG (Normal) Comments: Mixed urogenital flora1,000 Colonies/mL Urine Culture,Comprehensive Final report (Normal) :41 Metabolic Panel, Comprehensive Comments: PATIENT NOT FASTINGPERFORMED BY: HIREN [employer] Mckgrn5161 [facility] [id number] (88013) ALT (SGPT) 16 [iU]/L (Normal) Range: 0-32 [...] 8-27 Glucose 89 mg/dL (Normal) Range: 65-99 45-Stx-050179:02 Urinalysis, Office (39180) UA - LEUKOCYTE ESTERASE Small (Normal) UA - NITRITE Negative (Normal) URINE UROBILINGN JEROME TIMED Normal mg/dL (Normal) UA - PROTEIN Negative mg/dL (Normal) UA - PH 7.5 (Normal) UA - BLOOD Negative (Normal) UA - SPECIFIC GRAVITY 1.020 (Normal) UA - KETONES Negative mg/dL (Normal) UA - BILIRUBIN Negative (Normal) UA - GLUCOSE Negative (Normal) 04-Evb-435281:54 LDH (LD) (LACTATE DEHYDROGENASE) Comments: PATIENT NOT FASTINGPERFORMED BY: [facility]Advanced [facility] Southern [facility] MexicoImqdip0242 [facility] [id number] (42261) LDH 191 [iU]/L (Normal) Range: 119-226 91-Kit-860250:54 RHEUMATOID FACTOR-QUANT (38815) Comments: PATIENT NOT FASTINGPERFORMED BY: [facility]CoUniversity HospitalOdqtlu3784 [facility] [id number] RA Latex Turbid. <10.0 {IU/mL} (Normal) Range: 0.0-13.9 :54 C-Reactive Protein (70106) Comments: PATIENT NOT FASTINGPERFORMED BY: LabCoUniversity HospitalIxsayf1986 [facility] [id number] C-Reactive Protein, Quant 6.1 mg/L (Abnormal) Range: 0.0-4.9 :54 SED RATE ERYTHROCYTE (25173) Comments: PATIENT NOT FASTINGPERFORMED BY: [facility]Co[facility] HospitalEhacov3616 [facility] [id number] Sedimentation Rate-Westergren 16 mm/h (Normal) Range: 0-40 9-Zdo-528374:40 CPK Total, Creatine Kinase Comments: 48[facility] [address] [place], [place], [address] CPK TOTAL 68 U/L (Normal) Range: 26-192 33-Onr-970097:12 Culture, Urine Comments: [facility] [address] [place], [place], [address] CUUR See Note (Normal) Comments: Urine CultureORGANISM [...] $ <=20 S(NF) indicates non-formulary drug at [facility]. Approval by Infectious Disease Specialist required before non- formulary drugs may be ordered and/or dispensed. 41-Mdj-940157:12 Urinalysis, Routine (Dipstick) Comments: How was Urine Obtained? CLEAN [facility] [address] [place], [address] LEUK ESTERASE 500 /ul (Abnormal) OCCULT BLOOD-UR 50 /ul (Abnormal) NITRITE UR Positive (Abnormal) UROBILI Normal mg/dL (Normal) PROT DIPSTX 100 mg/dL (Abnormal) pH UR 6.0 (Normal) Range: 5.0 - 8.0 SP.GR. DIPSTX 1.025 (Normal) Range: 1.002-1.030 KETONE UR Negative mg/dL (Normal) BILIRUBIN URINE Negative mg/dL (Normal) GLUCOSE, UR Normal mg/dL (Normal) CLARITY Cloudy (Normal) COLOR Yellow (Normal) 57-Eki-259160:15 CBC W/Diff, Automated Comments: [facility] [address] [place], [address] Absolute Lymph 1.50 {X10_3/ul} (Normal) [...] 4.2-5.4 WBC 4.6 K/mm3 (Normal) Range: 4.4-11.0 12-Ihv-971673:15 Comprehensive Metabolic Profil Comments: [facility] [address] [place], [place], [address] GAP 7 (Normal) Range: 5-15 CO2 28.0 mmol/L (Normal) Range: 21.0-32.0 CL 106 mmol/L (Normal) Range: 98-107 K 3.6 mmol/L (Normal) Range: 3.5-5.1 NA 141 mmol/L (Normal) Range: 136-145 T BILI 0.60 mg/dL (Normal) Range: 0.20-1.00 ALT 27 U/L (Normal) Range: 13-56 Comments: Please note revised ALT reference range jlmiwzzku45/28/2018. ALK P 68 U/L (Normal) Range: 45-117 [...] A.D.A. criteria.Please note revised GLUCOSE reference range mpyamniyo43/02/2018. 2-Ljr-074268:59 CPK Total, Creatine Kinase Comments: [facility] [address] [place], [place], [phone] CPK TOTAL 55 U/L (Normal) Range: 26-192 3-Iyi-618705:59 GGTP 140 U/L (Abnormal) Comments: [facility] [address] [place], [address] Range: 5-55 24-Jun-20179:50 CBC W/Diff, Automated Comments: [facility] [address] [facility] [address] [place], [place], [id number] Absolute Lymph 1.40 {X10_3/ul} (Normal) Range: 0.83-4.51 [...] Range: 4.4-11.0 24-Jun-20179:50 Comprehensive Metabolic Profil Comments: [facility] [address] [place], [place], [phone] GAP 7 (Normal) Range: 5-15 CO2 28.0 [...] <126 mg/dLsuggests IMPAIRED HOMEOSTASIS per A.D.A. criteria. 71-Eus-606050:00 CBC W/Diff, Automated Comments: [facility] [address] [facility] [place], [place], [id number] ; Dr Fiore Absolute Lymph 1.66 {X10_3/ul} [...] 4.2-5.4 WBC 5.2 K/mm3 (Normal) Range: 4.4-11.0 30-Skq-066452:00 Comprehensive Metabolic Profil Comments: [facility] [address] [place], [address] GAP 5 (Normal) Range: 5-15 CO2 27.0 [...] 7-18 GLU 106 mg/dL (Normal) Range: 70-110 42-Krn-809551:00 CBC W/Diff, Automated Comments: [facility] [address] [place], [place], [phone] ; rheum Absolute Lymph 1.83 {X10_3/ul} (Normal) [...] 4.2-5.4 WBC 5.8 K/mm3 (Normal) Range: 4.4-11.0 01-Eww-508848:00 Comprehensive Metabolic Profil Comments: [facility] [address] [place], [address] ; Dr moreno GAP 7 (Normal) Range: [...] 7-18 GLU 98 mg/dL (Normal) Range: 70-110 04-Qzw-290676:39 CBC W/Diff, Automated Comments: [facility] [address] [place], [address] SMEAR COMMENT SCANNED (Normal) Absolute Lymph 0.54 [...] 4.2-5.4 WBC 11.4 K/mm3 (Abnormal) Range: 4.4-11.0 19-Uqj-606760:39 Comprehensive Metabolic Profil Comments: [facility] [address] [place], [address] GAP 10 (Normal) Range: 5-15 CO2 23.0 [...] 126 mg/dLsuggests DIABETES MELLITUS per A.D.A. criteria. 49-Kdu-666219:39 Lipase Comments: [facility] [address] [place], [address] LIPASE 86 U/L (Normal) Range: 73-393 23-Apr-20167:01 Pap IG (Image Comments: Source.............Cervix;EndocervixNo. of containers..01 CYTYC Thin Prep VialPATIENT NOT FASTINGPERFORMED BY: =G [facility] [address] [id number] BY: WB [facility] Guided) [facility] [id number] Note: PAPSMR (Normal) Comments: The Pap smear [...] Prep VialPATIENT NOT FASTINGPERFORMED BY: =G [facility] [address] [id number] BY: WB [facility] ([id number]) (no STD rp [address] [id number] Information: [id number]; ov in 2 weeks testing) Age Gdln ACOG Testing AGE4 (Normal) Comments: <21 or >65 or no age provided 77-Afk-711142:55 CBC W/Diff, Automated Comments: [facility] [address] [place], [place], [id number] Absolute Lymph 1.88 {X10_3/ul} (Normal) Range: 0.83-4.51 [...] Range: 4.4-11.0 :55 Comprehensive Metabolic Profil Comments: [facility] [address] [place], [place], [address] GAP 7 (Normal) Range: 5-15 CO2 28.0 [...] Range: 70-110 :52 CBC W/Diff, Automated Comments: [facility] [address] [place], [place], [address] Absolute Lymph 1.74 {X10_3/ul} (Normal) Range: 0.83-4.51 [...] 4.2-5.4 WBC 5.0 K/mm3 (Normal) Range: 4.4-11.0 81-Ytq-412438:52 Comprehensive Metabolic Profil Comments: [facility] [address] [place], [place], [phone] GAP 6 (Normal) Range: 5-15 CO2 29.0 [...] 7-18 GLU 107 mg/dL (Normal) Range: 70-110 87-Fox-257231:52 Vitamin D,25 Hydroxy Comments: [facility] [address] [place], [place], [id number] Vitamin D 25-OH 23.6 ng/mL (Normal) Comments: Vitamin D 25(OH) Status Range Deficiency <20 ng/mL (50nmol/L) Insuffciency 20 - 30 ng/mL (50 - 75 nmol/L) Sufficiency 30 - 100 ng/mL (75 - 250 nmol/L) Toxicity >100 ng/mL (>250 nmol/L) :34 URINE DELMAR CULTURE-JEROME COL Comments: PATIENT NOT FASTINGPERFORMED BY: [facility] Lspkoe9020 [facility] [id number] Information: SRC:UR [id number] COUNT ([id number]) Result 1 MUG (Normal) Comments: Mixed urogenital floraGreater than 100,000 colony forming units per mL Urine Culture,Comprehensive Final report (Normal) 35-Clo-711082:21 Urinalysis, Office (74445) UA - LEUKOCYTE ESTERASE Trace (Normal) UA - NITRITE Negative (Normal) URINE UROBILINGN JEROME TIMED Normal mg/dL (Normal) UA - PROTEIN Negative mg/dL (Normal) UA - PH 6.0 (Normal) Comments: 5.5 UA - BLOOD Negative (Normal) UA - SPECIFIC GRAVITY 1.030 (Abnormal) UA - KETONES Negative mg/dL (Normal) UA - BILIRUBIN Negative (Normal) UA - GLUCOSE Negative (Normal) 07-Avg-584062:10 CBC W/Diff, Automated Comments: [facility] [address] [place], [place], [phone] Absolute Lymph 1.44 {X10_3/ul} (Normal) Range: 0.83-4.51 [...] 4.2-5.4 WBC 4.3 K/mm3 (Abnormal) Range: 4.4-11.0 80-Acw-368946:10 Comprehensive Metabolic Profil Comments: [facility] [address] [place], [address] GAP 3 (Abnormal) Range: 5-15 CO2 28.0 [...] 126 mg/dLsuggests DIABETES MELLITUS per A.D.A. criteria. 89-Kap-868488:10 Vitamin D,25 Hydroxy Comments: [facility] [address] [place], [address] Vitamin D 25-OH 20.8 ng/mL (Normal) Comments: Vitamin D 25(OH) Status Range Deficiency <20 ng/mL (50nmol/L) Insuffciency 20 - 30 ng/mL (50 - 75 nmol/L) Sufficiency 30 - 100 ng/mL (75 - 250 nmol/L) Toxicity >100 ng/mL (>250 nmol/L) 78-Kbt-390777:16 CBC W/Diff, Automated Comments: [facility] [address] [place], [phone] ; ordered by another doctor Absolute Lymph [...] 4.2-5.4 WBC 5.1 K/mm3 (Normal) Range: 4.4-11.0 40-Wdi-882383:16 Comprehensive Metabolic Profil Comments: [facility] [address] [place], [phone] ; ordered by another doctor GAP 7 [...] 7-18 GLU 87 mg/dL (Normal) Range: 70-110 00-Zvz-470594:16 Vitamin D,25 Hydroxy Comments: [facility] [address] [place], [address] ; ordered by another doctor Vitamin D 25-OH 33.2 ng/mL (Normal) Comments: Vitamin D 25(OH) Status Range Deficiency <20 ng/mL (50nmol/L) Insuffciency 20 - 30 ng/mL (50 - 75 nmol/L) Sufficiency 30 - 100 ng/mL (75 - 250 nmol/L) Toxicity >100 ng/mL (>250 nmol/L) :22 CBC W/Diff, Automated Comments: [facility] [address] [place], [address] Absolute Lymph 1.19 {X10_3/ul} (Normal) [...] 4.2-5.4 WBC 4.6 K/mm3 (Normal) Range: 4.4-11.0 1-Qvd-785357:22 Comprehensive Metabolic Profil Comments: [facility] [address] [place], [place], [phone] GAP 3 (Abnormal) Range: 5-15 CO2 29.0 [...] 7-18 GLU 100 mg/dL (Normal) Range: 70-110 1-Xhi-094759:22 Lipid Profile Comments: [facility] [address] [place], [place], [address] VLDL 16 mg/dL (Normal) Range: 5-40 LDL [...] 200-240 mg/dL Borderline >240 mg/dL High Risk 4-Yzp-091303:22 Thyroid Stim Hormone (TSH) Comments: [facility] [address] [place], [address] TSH 1.39 {uIU/mL} (Normal) Range: 0.358-3.74 76-Jiz-004101:30 CBC W/Diff, Automated Comments: Comments: IVT TO DRAW OFF PORTHas pt arrived? YTest performed at:[facility] [address] [facility] [address]. [place], [place] [address] Absolute Lymph 1.56 {X10_3/ul} (Normal) Range: 0.83-4.51 [...] 4.2-5.4 WBC 4.7 K/mm3 (Normal) Range: 4.4-11.0 20-Qei-524120:30 Comprehensive Metabolic Profil Comments: Has pt arrived? YComments: IVT TO DRAW FROM PORTTest performed at:[facility] [address] [place] [address] GAP 8 (Normal) Range: 5-15 CO2 [...] Comments: Please note revised CREATININE reference range uxossosxk39/22/2015. BUN 21 mg/dL (Abnormal) Range: 7-18 GLU 133 mg/dL (Abnormal) Range: 70-110 Comments: Fasting Glucose result greater than or equal to 126 mg/dLsuggests DIABETES MELLITUS per A.D.A. criteria. 00-Acu-005977:30 Vitamin D,25 Hydroxy Comments: Has pt arrived? YTest performed at:[facility] [address] [place] [address] Vitamin D 25-OH 22.5 ng/mL (Normal) Comments: Vitamin D 25(OH) Status Range Deficiency <20 ng/mL (50nmol/L) Insuffciency 20 - 30 ng/mL (50 - 75 nmol/L) Sufficiency 30 - 100 ng/mL (75 - 250 nmol/L) Toxicity >100 ng/mL (>250 nmol/L) 42-Tmu-964917:42 D-Dimer Quantitative (DVT/PE) Comments: Test performed at:[facility] [address] [place] [address] D-DIMER QUANT 0.54 {FEU/ug/m} (Abnormal) Range: 0.27-0.49 Comments: D-Dimer ELEVATED (>0.49): Additional studies and clinicalassessments are indicated to conclude diagnosis of:Deep Vein Thrombosis (DVT) or Pulmonary Embolism (PE)CRITICAL VALUE CALLED TO [place] [address]/2 02/02 Ashish Griffin.RESULTS READ BACK BY SAME . 83-Nys-304843:39 Lipase Comments: Test performed at:[facility] [address] [place] [address] LIPASE 96 U/L (Normal) Range: 70-290 13-Yih-024265:22 BNP,B-Type NATRIURETIC PEPTIDE Comments: Test performed at:[facility] [address] [facility] [place] [address] B-TYPE FATOUMATA PEP 124.8 pg/mL (Abnormal) Range: 0-100 55-Kln-612547:22 CBC W/Diff, Automated Comments: Test performed at:[facility] [address] [place] [address] Absolute Lymph 2.09 {X10_3/ul} (Normal) [...] 4.2-5.4 WBC 5.9 K/mm3 (Normal) Range: 4.4-11.0 42-Upo-979314:22 CK-MB Quantitative and Index Comments: Test performed at:[facility] S[address]ie[address] [facility]. [place], [place] [id number] CPKMB 0.7 ng/mL (Normal) Range: 0.0-5.0 Comments: CK-MB and RI Interpretation MB Relative Index Non-AMI <or= 5 NA Indeterminate > 5 <or= 4 AMI > 5 > 4 CPK TOTAL 97 U/L (Normal) Range: 26-192 95-Mky-521417:22 Comprehensive Metabolic Profil Comments: 'TROP' Serial specimen #1, #2, #3, or #4: 1Test performed at:[facility] [address]ls[address]trtqg[address] [facility]. [place], [place] [address] GAP 9 (Normal) Range: 5-15 CO2 25.0 [...] 126 mg/dLsuggests DIABETES MELLITUS per A.D.A. criteria. 96-Yly-639229:22 Troponin-I Comments: 'TROP' Serial specimen #1, #2, #3, or #4: 1Test performed at:[facility] [address] [place] [address] TROPONIN-I < 0.02 ng/mL (Normal) Comments: TROPONIN-I EXPECTED VALUES <0.05 NEGATIVE 0.06 - 0.59 AT RISK OF [place] > OR = 0.60 SUGGEST FL 75-Udq-724925:20 Urinalysis, Complete Comments: Order Date: 11/15/14How was Urine Obtained? CLEAN CATCHTest performed at:[facility] [address] [place], [place] [address] AMORPHOUS 1+ PHOS (Normal) MUCUS, URINE 0 [...] CLARITY Sl. Cloudy (Normal) COLOR Yellow (Normal) 78-Kll-927656:00 CBC W/Diff, Automated Comments: Comments: IVT TO DRAWTest performed at:[facility] [address] [place] [address] Absolute Lymph 1.62 {X10_3/ul} (Normal) [...] 4.2-5.4 WBC 5.8 K/mm3 (Normal) Range: 4.4-11.0 09-Vxc-364234:00 Comprehensive Metabolic Profil Comments: Comments: IVT TO DRAWTest performed at:[facility] [address] [place] [address] GAP 4 (Abnormal) Range: 5-15 [...] 126 mg/dLsuggests DIABETES MELLITUS per A.D.A. criteria. 87-Ayu-878310:25 CBC W/Diff, Automated Comments: Test performed at:[facility] [address] [place] [address] Absolute Lymph 1.28 {X10_3/ul} (Normal) [...] 4.2-5.4 WBC 5.0 K/mm3 (Normal) Range: 4.4-11.0 97-Cxw-838454:25 Comprehensive Metabolic Profil Comments: Test performed at:[facility] [address] [place] [address] GAP 4 (Abnormal) Range: 5-15 CO2 29.0 [...] 7-18 GLU 100 mg/dL (Normal) Range: 70-110 93-Aaf-314118:21 URINE DELMAR CULTURE-JEROME COL Comments: PATIENT NOT FASTINGPERFORMED BY: [facility] Tyeaqr8476 [facility] [id number] Information: SRC:UR [id number] COUNT ([id number]) Result 1 MUG (Normal) Comments: Mixed urogenital flora1,000 Colonies/mL Urine Culture,Comprehensive Final report (Normal) 69-Eag-113693:35 Urinalysis, Office (08335) UA - LEUKOCYTE ESTERASE Trace (Normal) UA - NITRITE Negative (Normal) URINE UROBILINGN JEROME TIMED Normal mg/dL (Normal) UA - PROTEIN Negative mg/dL (Normal) UA - PH 6.0 (Normal) Comments: 5.5 UA - BLOOD Negative (Normal) UA - SPECIFIC GRAVITY 1.030 (Abnormal) UA - KETONES Negative mg/dL (Normal) UA - BILIRUBIN Negative (Normal) UA - GLUCOSE Negative (Normal) 8-Uhq-657788:15 CBCD ALC 1.51 {X10_3/ul} (Normal) Range: 0.83-4.51 [...] 4.2-5.4 WBC 5.7 K/mm3 (Normal) Range: 4.4-11.0 7-Ios-403489:15 CMP Comments: Comments: FAX RESULTS TO DR. [...] or Folic Acid Supplements? N Range: 3.1-17.5 4-Vpb-171296:01 Urinalysis, Office (48343) UA - LEUKOCYTE ESTERASE Negative (Normal) UA - NITRITE Negative (Normal) URINE UROBILINGN JEROME TIMED Normal mg/dL (Normal) UA - PROTEIN Negative mg/dL (Normal) UA - PH 5 (Abnormal) UA - BLOOD Negative (Normal) UA - SPECIFIC GRAVITY 1.025 (Normal) UA - KETONES Negative mg/dL (Normal) UA - BILIRUBIN Negative (Normal) UA - GLUCOSE Negative (Normal) 6-Exo-852949:52 CBCD ALC 1.26 {X10_3/ul} (Normal) Range: 0.83-4.51 [...] 4.2-5.4 WBC 4.2 K/mm3 (Abnormal) Range: 4.4-11.0 8-Kqp-960808:52 CMP Comments: SED RATE ADD ON BLOOD [...] 126 mg/dLsuggests DIABETES MELLITUS per A.D.A. criteria. 9-Iir-954376:52 SED tSEDRATE 32 mm/h (Abnormal) Range: 0-30 :21 iPBE 0 mmol/L (Normal) :21 iPCO2 40.0 {mmHg} (Normal) Range: 35-45 :21 iPH 7.41 (Normal) Range: 7.35-7.45 :21 iPO2 83 {mmHG} (Normal) Range: 75-100 :21 iTCO2 26 mmol/L (Normal) :21 iTHCO3 25 mmol/L (Normal) Range: 22-26 Comments: Site = L BrachialAllens Test = POSDevice = Room AirResults To = OTHERTime Given = 915 :21 eQT0IRE 96 % (Normal) Range: 95-99 :21 iTYPE ART (Normal) 9-Nsc-809867:37 Rapid Flu (69337 x 2) Comments: neg Influenza A Ag negative a and b (Normal) 6-Dfu-957117:59 Influenza A&B Viral Comments: neg; PATIENT NOT FASTINGPERFORMED BY: [facility]bprk1362 [facility] [id number] Information: SRC:NOS [id number] Culture (84754) Viral Culture,Rapid,Influenza FLUABN (Normal) Comments: Negative:No Influenza A or B detected. B12 274 pg/mL (Normal) Comments: COMMENTS: FAX RESULTS TO AISLINN SCOTT DRAW :05 Range: 211-911 Comments: Effective 201221-Sep-20129-Ruo-469136:05 CBCD Comments: COMMENTS: FAX RESULTS TO DR. [...] 4.2-5.4 WBC 5.1 {k/mm3} (Normal) Range: 4.4-11.0 0-Yrd-083517:05 CMP Comments: COMMENTS: FAX RESULTS TO DR. [...] 7-18 GLU 87 mg/dL (Normal) Range: 70-110 2-Byh-144348:05 FOL 22.20 ng/mL (Abnormal) Comments: COMMENTS: FAX RESULTS TO AISLINN BOYKIN - IVT DRAW Range: 3.1-17.5 21-Laj-946540:08 CALCIFEDIOL (59161) Comments: PATIENT NOT FASTINGPERFORMED BY: [facility] HospitalJdhueb3174 [facility] [id number] Information: [id number] Vitamin D, 25-Hydroxy 47.6 ng/mL (Normal) Range: 30.0-100.0 Comments: Vitamin D deficiency has been defined by the [place] of[place]icine and an Endocrine Society practice guideline as alevel of serum 25-OH vitamin D less than 20 ng/mL (1,2).The Endocrine Society went on to further define vitamin Dinsufficiency as a level between 21 and 29 ng/mL (2).1. IOM ([place] of [employer]). 2010. Dietary reference intakes for calcium and D. [place]: The National Academies Press.2. Stacia MF, Mago NC, Meliza MAGDALENO, et al. Evaluation, treatment, and prevention of vitamin D deficiency: an Endocrine Society clinical practice guideline. JCEM. 2010; 96(7):1911-30. 6-Ita-038714:18 BILAT SCRN DIGITAL & CAD Radiology Report [...] Morales M.D.May 04 012 at 2:58:08 PM [id number] Signed GP/GP If you are the referring physician and would like to consult with theradiologist who provided this interpretation, please contact Valdo bettencourt M.D. at [phone]. If this radiologist is unavailable, youwill be directed to another radiologist to assist. If you are a patient with a question regarding this report, pleasecontactyour refe rring physician directly. Professional Interpretation Provided By: [employer], Phone , These documents contain legally protected [...] IMPORTSign by Martín Morales MD on 05/04/12 1512 Sign by: Martín Morales MD 06-Apr-2012 TSH 2.25 {uIU/mL} Range: 0.358-3.74 10:00 (Normal) 05-Apr-2012 VITD 21.7 ng/mL Comments: RE-COLLECT 10:08 (Abnormal) Range: 30.0-100.0 Comments: Vitamin D deficiency has been defined by the [place] of[place]icine and an Endocrine Society practice guideline as alevel of serum 25-OH vitamin D less than 20 ng/mL (1,2).The Endocrine Society went on to further define vitamin Dinsufficiency as a level between 21 and 29 ng/mL (2).1. IOM ([place] of [employer]). 2010. Dietary reference intakes for calcium and D. [place]: The National Academies Press.2. Stacia MF, Mago MONTE, Meliza MAGDALENO, et al. Evaluation, treatment, and prevention of vitamin D deficiency: an Endocrine Society clinical practice guideline. JCEM. 2010; 96(7): 1911-30.Performed at: [facility] [address] [id number] Director: Meeta Hickman MD, Phone: [phone] 23-Ush-945394:44 LIPID VLDL 14 mg/dL (Normal) Range: 5-40 [...] 200-240 mg/dL Borderline >240 mg/dL High Risk 03-Ebg-803072:35 Urinalysis, Office (23486) UA - BILIRUBIN Small (Normal) UA - BLOOD Negative (Normal) UA - GLUCOSE Negative (Normal) UA - KETONES Small mg/dL (Normal) Comments: trace UA - LEUKOCYTE ESTERASE Negative (Normal) UA - NITRITE Negative (Normal) UA - PH 5.0 (Normal) UA - PROTEIN Trace mg/dL (Normal) UA - SPECIFIC GRAVITY 1.025 (Normal) URINE UROBILINGN JEROME TIMED Normal mg/dL (Normal) 95-Uxj-143988:07 CBC with manual diff Comments: PATIENT NOT FASTINGPERFORMED BY: [facility] [address] [id number] Information: [id number] ([id number]) Immature Grans (Abs) 0.0 {x10E3/uL} (Normal) Range: [...] 3.80-5.10 WBC 5.6 {x10E3/uL} (Normal) Range: 4.0-10.5 73-Flx-766282:07 Metabolic Panel, Comprehensive Comments: PATIENT NOT FASTINGPERFORMED BY: [facility] Gwitrd2028 [facility] [id number] (60446) Alkaline Phosphatase, S 50 [iU]/L (Normal) Range: [...] Glucose, Serum 97 mg/dL (Normal) Range: 65-99 83-Vws-37527:00 SPINE, CERVICAL (ROUTINE) Radiology See Note Comments: [...] by ITS IMPORTSign by Lee Ann Key n 06/18/101755 Sign by: Lee Ann Key 82-Yiu-098097:49 RENAL CO2 28.0 mmol/L (Normal) Range: 21.0-32.0 [...] 0.6-1.0 GLU 102 mg/dL (Normal) Range: 70-110 59-Yty-04173:00 CERV SPINE,MIN 4 VIEWS Radiology Report See [...] on 06/09/10 0855 Sign by: Alena Worley 30-Kdd-180379:55 CALCIFEDIOL (62020) Comments: PATIENT NOT FASTINGPERFORMED BY: [facility]6370 [facility] [id number] Information: [id number] Vitamin D, 25-Hydroxy 36.1 ng/mL (Normal) Range: 32.0-100.0 Comments: Recent studies consider the lower limit of 32.0 ng/mL to be athreshold for optimal health.Froylan BHAKTA. J Nutr. 2004;135(2):317-22. 85-Lrx-917210:53 CBCD ABSOLUTE NEUT 3.6 3/uL (Normal) Range: [...] (Normal) GLU 82 mg/dL (Normal) Range: 70-110 89-Vqg-688816:33 ALDOLASE 2030 4.7 U/L (Normal) Range: 1.2-7.6 Comments: Performed at: - [facility]6370 [place], [place] [id number] Director: Meeta Hickman MD 32-Cuz-398496:33 CBCD ABSOLUTE NEUT 2.6 3/uL (Normal) Range: [...] 11.6-14.6 WBC 4.9 K/mm3 (Normal) Range: 4.4-11.0 09-Rvf-828514:33 COMP METABOLIC Comments: LIVER TEST TO CL [...] 6.4-8.2 GLU 95 mg/dL (Normal) Range: 70-110 70-Eqa-239906:33 CPK TOTAL 37 U/L (Normal) Comments: LIVER TEST TO Range: 21-215 :33 D BILI 0.12 mg/dL (Normal) Comments: LIVER TEST TO Range: 0.00-0.30 77-Swr-363156:46 COMPLETE UA BACTERIA RARE {/hpf} (Normal) MUCUS, [...] CK-BB 0 % (Normal) Comments: Performed at: [facility] - Lab[address] [id number] Director: Meeta Hickman MD CK-MB 0 % (Normal) Range: 0-3 CK-MM 100 % (Normal) Range: 97-100 Macro I 0 % (Normal) Macro II 0 % (Normal) CPK,TOTAL,SERUM 59 U/L (Normal) Range: 24-173 :46 PTH,Intact 57 pg/mL (Normal) Range: 14-72 :46 TSH 1.06 {uIU/mL} (Normal) Range: 0.358-3.74 :29 ALDOLASE 2030 9.1 U/L (Abnormal) Range: 1.2-7.6 Comments: Performed at: [address] [id number] Director: Saul Cuadra MD :29 COMP METABOLIC [...] CPK TOTAL 356 U/L (Abnormal) Range: 21-215 84-Qwj-288761:29 [facility] [facility] [place] . (Normal) Comments: MYOGLOBIN, SERUM 121 H ng/mL 25 - 58 TESTING PERFORMED AT [facility]. ORIGINAL REPORT ONFILE IN LAB CONTAINS ADDITIONAL TEST SITE INF ORMATION. 28-Oor-014952:14 COMPLETE UA AMORPHOUS 4+ (Normal) BACTERIA 0 [...] U/L (Abnormal) Range: 1.2-7.6 Comments: Performed at: [facility] [place] [id number] Director: Saul Cuadra MD :03 CKMB CKRI 0.2 % (Normal) Range: 0.0-1.4 Comments: RELATIVE INDEX >1.5% IS PRESUMPTIVELY POSITIVE CPKMB 18.3 ng/mL (Abnormal) Range: 0.0-5.0 Comments: CK-MB and RI Interpretation MB Relative IndexNon-AMI <or= 5 NAIndeterminate > 5 <or= 4AMI > 5 > 4 CPK TOTAL 8135 U/L (Abnormal) Range: 21-215 :03 CPK TOTAL 8135 U/L (Abnormal) Range: 21-215 28-Enc-465831:18 CBCD ABSOLUTE NEUT 2.3 3/uL (Normal) Range: [...] 4.2-5.4 WBC 4.1 K/mm3 (Abnormal) Range: 4.4-11.0 31-Xus-244708:18 COMP METABOLIC CL 104 mmol/L (Normal) Range: [...] 0.6-1.0 GLU 109 mg/dL (Normal) Range: 70-110 03-Mgg-610838:10 Rapid Strep Test, Office (95082) Rapid Strep Test, Office Negative (Normal) 7-Seq-476281:56 CALCIFEDIOL (82591) Comments: PATIENT NOT FASTINGPERFORMED BY: [facility] Feaulx5468 [facility] [id number] Information: [id number] Vitamin D, 25-Hydroxy 19.7 ng/mL (Abnormal) Range: 32.0-100.0 Comments: Recent studies consider the lower limit of 32.0 ng/mL to be athreshold for optimal health.Froylan BHAKTA. J Nutr. 2004;135(2):317-22. 31-Aqy-301285:10 ABDOMEN/PELVIS WITH CONTRAST Radiology Report See Note (Normal) Comments: Exam Number: [id number] CLINICAL:58 year old woman with abnormal blood [...] surgically absent. Reported By: LOREN MALCOLM M.D. 99-Uyv-[id number]:15 TRANSVAGINAL NON-PREG US () Radiology Report See Note (Normal) Comments: Exam Number: [id number] CLINICAL:58-year-old female post menopausal with positive beta-hCG [...] weeks recommended. Reported By: WILLIE BOLIVAR M.D. [id number]-Ewq-[id number]:55 PELVIC (NON-PREG) () Radiology Report See Note (Normal) Comments: Exam Number: [id number] CLINICAL:58-year-old female post menopausal with positive beta-hCG [...] HCGUQUAL SeeNote m[iU]/mL (Normal) Comments: Result: Negative 29-Wib-[id number]:17 DELMAR CULTURE-OTHER (61088) Comments: PATIENT NOT FASTINGClinical Information: SRC:THRT ADD [id number] PERFORMED BY: [facility] [id number] [id number] Result 1 RRF (Normal) Comments: Routine respiratory gabriella Upper Respiratory Culture Final report (Normal) 13-Npf-200857:03 LQD PAP [id number] Comments: CYTOLOGY INFORMATION:- CLINICAL INFORMATION: - DATE LMP/MENOPAUSE: 1998 LMP- COLLECTION VIAL: Thin Prep Vial- VENDER SOURCE: CERVICAL/ENDOCERVICAL- COLLECTION TECHNIQUE: BRUSH/SPATULA ADEQ Comment (Normal) Comments: Satisfactory for evaluation. Endocervical and/or squamous metaplasticcells (endocervical component) are present. COMM . (Normal) DIAGN Comment (Normal) Comments: NEGATIVE FOR INTRAEPITHELIAL LESION AND MALIGNANCY. HPV RFLX Comment (Normal) Comments: The HPV DNA reflex criteria were not met with this specimenresult therefore, no HPV testing was performed. .Performed At: [address] [id number] PAPSMR Comment (Normal) Comments: The Pap smear is a screening test designed to aid in thedetection of premalignant and malignant conditions of theuterine cervix. It is not a diagnostic procedure andshould not be used as the sole means of detecting cervicalcancer. Both false-positive and false-negative reports dooccur. . PERFORM Comment (Normal) Comments: Ashwin Blanc, Supervisor Inspection Department (ASCP) 59-Xrl-148563:52 Microscopic Examination Comments: PATIENT WAS FASTINGPERFORMED BY: [facility]Co[facility] HospitalDgqcgq1869 [facility] [id number] Bacteria Few (Normal) Epithelial Cells (non renal) None seen {/hpf} (Normal) Range: 0 - 10 RBC None seen {/hpf} (Normal) Range: 0 - 3 WBC 0-5 {/hpf} (Normal) Range: 0 - 5 35-Akt-120723:52 MICROALBUMIN: CREATININE RATIO Comments: PATIENT WAS FASTINGPERFORMED BY: [email or web address] [email or web address] [facility] [id number] ([id number]) AND ([id number]) Creatinine, Urine 353.6 mg/dL (Abnormal) Range: 15.0-278.0 Microalb/Creat Ratio 5.4 {ug/mg_creat} (Normal) Range: 0.0-30.0 Microalbumin, Urine 19.2 ug/mL (Abnormal) Range: 0.0-17.0 32-Hfz-461877:52 URINALYSIS (92137) Comments: PATIENT WAS FASTINGPERFORMED BY: [email or web address] [facility] [id number] Appearance Clear (Normal) Bilirubin Negative (Normal) Glucose Negative (Normal) Ketones Negative (Normal) Microscopic Examination See below: (Normal) Nitrite, Urine Negative (Normal) Occult Blood Negative (Normal) pH 8.0 (Abnormal) Range: 5.0-7.5 Protein 1+ (Abnormal) Specific [place] 1.010 (Normal) Range: 1.005-1.030 Urine-Color Yellow (Normal) Urobilinogen,Semi-Qn 0.2 mg/dL (Normal) Range: 0.0-1.9 WBC Esterase Negative (Normal) 90-Wef-393710:52 Metabolic Panel, Comprehensive Comments: PATIENT WAS FASTINGPERFORMED BY: [employer]70 [facility] [id number] ([id number]) A/G Ratio 1.6 (Normal) Range: 1.1-2.5 Albumin, [...] Sodium, Serum 144 mmol/L (Normal) Range: 135-145 53-Osf-063080:52 Lipid Panel (77340) Comments: PATIENT WAS FASTINGPERFORMED BY: [facility] Rlibhn6154 [facility] [id number] Cholesterol, Total 237 mg/dL (Abnormal) Range: 100-199 [...] Cholesterol García 19 mg/dL (Normal) Range: 5-40 36-Jjb-647497:52 CBC with manual diff (37040) Comments: PATIENT WAS FASTINGClinical Information: ADD DARW FEE [id number] ADD J 26028 PERFORMED BY: HIREN [facility]Co[facility] HospitalXytgxo7028 [facility] [id number] Baso (Absolute) 0.1 {x10E3/uL} (Normal) Range: 0.0-0.2 [...] : Follow up in [address] [facility] Indication: Insomnia Vitamin D deficiency, unspecified [...] pain : Follow up on Wednesday with [facility] Indication: Back pain Carnitine deficiency : Follow [...] : FOLLOW UP IN 3 MONTHS with [facility] Indication: Unspecified inflammatory polyarthropathy Vitamin D deficiency, [...] Indication: DEPRESSIVE DISORDER (311.0) Planned Observations TSH (26182)Indication: Leg pain On: 32-Pen-977879:42 Request CBC, Platelets & Auto Diff (81722)Indication: Leg pain On: 67-Yoo-473384:42 Request Metabolic Panel, Comprehensive (94814)Indication: Leg pain On: 73-Dxj-084765:42 Request Vitamin B-12 (cyanocobalamin) (63497)Indication: B12 deficiency On: 35-Tqq-822953:55 Request CPK TOTAL & ISOENZYMES (09352)Indication: Pain in unspecified joint On: 03-Zdq-388339:03 Request URINE DELMAR CULTURE-IDENTIFICATN (97534)Indication: Dysuria On: 01-Kom-930507:16 Request URINALYSIS (62777)Indication: Dysuria On: 53-Dyc-978544:16 Request CALCIFEDIOL (66987)Indication: Postmenopausal (Renamed from Postmenopausal status) On: 6-Dle-296921:50 Request HPV automatic (71662)Indication: Screening for HPV (human papillomavirus) (Renamed from Encounter for screening for human papillomavirus (HPV)) On: 4-Zfa-710616:49 Request Metabolic Panel, Comprehensive (69022)Indication: DM (diabetes mellitus screen) On: :24 Request TSH (79129)Indication: Screening for deficiency anemia On: :23 Request CBC, Platelets & Auto Diff (10901)Indication: Screening for deficiency anemia On: : Request Lipid Panel (23375)Indication: Screening for hyperlipidemia On: :23 Request VITAMIN B12 AND FOLATES (46506)Indication: Leg pain On: 6-Mig-806904:27 Request HEPATIC FUNCTION PANEL (68889)Indication: Hypercholesteremia On: 27-Ghr-034200:15 Request CBC with manual diff (80453)Indication: Carnitine deficiency On: 62-Htz-874961:10 Request Metabolic Panel, Comprehensive (20756)Indication: Arthritis On: 25-Tdy-002276:10 Request LIPID PANEL (76029)Indication: Hypercholesteremia On: 97-Tvx-747663:10 Request CBC (AUTO) (29793)Indication: FATIGUE On: 3-Kgh-562573:24 Request METABOLIC PANEL, COMPREHENSIVE (92052)Indication: FATIGUE On: 8-Yus-156378:24 Request Folate (01511)Indication: FATIGUE On: 8-Uwp-667679:24 Request VITAMIN B-12 (CYANOCOBALAMIN) (42722)Indication: FATIGUE On: 1-Ycu-584963:24 Request TSH (08848)Indication: DEPRESSIVE DISORDER (311.0) On: 01-Pda-120551:16 Request CBC with manual diff (29187)Indication: Myopathy NOS On: :03 Request Metabolic Panel, Comprehensive (12861)Indication: DEPRESSIVE DISORDER (311.0) On: 9-Jbm-039383:03 Request Lipid Panel (59008)Indication: Hypercholesteremia On: 7-Ubh-941656:03 Request CALCIFEDIOL (19474)Indication: Vitamin D deficiency, unspecified On: 0-Qml-307639:02 Request Renal function Panel (16770)Indication: Neck pain On: 53-Hbq-841960:14 Request CALCIFEDIOL (01775)Indication: Vitamin D deficiency, unspecified On: 26-Jun-20099:26 Request Comments: draw Beginning September 2009 TEST - SERUM QUANTITATIVE (HCG) (50134)Indication: Abnormal blood chemistry On: :06 Request PREGNACY TEST, URINE (69415)Indication: Abnormal blood chemistry On: 65-Uox-931096:06 Request Lipid Panel (68597)Indication: Hypercholesteremia On: 66-Lsg-898278:16 Request Comments: fasting Rapid Strep Test, Office (31328)Indication: Pharyngitis, acute On: 89-Oix-125129:04 Request Thin prep Pap (55581)Indication: Well woman exam On: 30-Udz-912911:09 Request FECAL OCCULT HGB ASSAY- tubes sent home (94714)Indication: Well woman exam On: 47-Dbj-843072:54 Request OCCULT BLOOD FECES SCREEN- card done in office (20646)Indication: Well woman exam On: 64-Mxm-777622:54 Request CPK TOTAL & ISOENZYMES (54189)Indication: Myalgia and myositis On: 62-Srm-073620:37 Request CALCIFEDIOL (56180)Indication: Leg cramps On: 93-Fqo-550633:36 Request VITAMIN B-12 (CYANOCOBALAMIN) (26902)Indication: Pain in unspecified joint On: 90-Hnu-718735:35 Request PARATHORMONE (47744)Indication: Myalgia and myositis On: 57-Jow-544839:35 Request RHEUMATOID FACTOR-QUANT (89818)Indication: Pain in unspecified joint On: 04-Xyo-664979:15 Request SED RATE ERYTHROCYTE (76228)Indication: Pain in unspecified joint On: 82-Djn-893301:15 Request Planned Encounters Medical; Review Results - On: 10-May-2018 15:30 [facility] Teddy BINGHAM, Aislinn Leonard CNP Planned Procedures Venous Doppler - LeftBy: Teddy BINGHAM, On: 02-May-2018 Intent Aislinn Leonard CNP Aerosol Treatment (77228)By: Teddy On: 28-Mar-2018 Intent Aislinn BINGHAM CNP, Mary E Flu Vaccine (Quadrivalent) 03469Hc: On: 28-Mar-2018 Intent Aislinn Boykin CNP, CNP, Mary E Comments: Lot #[id number]-L dltd, IMDose prefilled syringegiven by: VENANCIO Noriega reviewed and ABN signed B 12 Injection, 1000 mcg (J3420)By: On: 10-Mar-2018 Intent Pamela Bates Comments: Vitamin B12 1000 mcg injectionLot--[id number]--04/2019R Delt IMpt tolerated wellCHRISTOPHE NORIEGA Solu -Medrol Injection, 125 mg On: 03-Dec-2017 Intent (J2930)By: Swethanylaapolinar Aislinn BINGHAM CNP, Mary E Radiology - Foot - LeftBy: Teddy On: 03-Dec-2017 Intent Aislinn BINGHAM CNP, Mary E Radiology - ChestBy: Aislinn Boykin CNP On: 23-Dec-2016 Intent E Aislinn Boykin CNP Ear Irrigation (20807)By: Teddy On: 18-Dec-2016 Intent Aislinn BINGHAM CNP, Mary E Wax CurettesBy: Alidaapolinar Aislinn BINGHAM On: 18-Dec-2016 Intent Aislinn Boykin CNP Aerosol Treatment (77217)By: Teddy On: 18-Dec-2016 Intent Aislinn BINGHAM CNP, Mary E Wax CurettesBy: Pamela Bates On: 01-Dec-2016 Intent Ear Irrigation (19005)By: Paulo On: 01-Dec-2016 Marvin Santiago Comments: Ear Irrigation performed on:rightAmount/color removed cerumen:small OUtcome:clear and tolerated PNEUM VAC ADLT/IMUMNOSPR, SBC/INTRM On: 19-May-2016 Intent (21336)By: Alidaapolinar Aislinn BINGHAM CNP, Mary E Flu Vaccine (Quadrivalent) 22420Vw: On: 12-May-2016 Intent Aislinn Boykin CNP, CNP, Mary E Comments: FLUlot: [id number]:11/04site:Lt deltoidroute:IMdose:.5mlDEMICK, MA DEXA SCAN AXIAL SKELETON (93368)By: On: 22-Apr-2016 Intent Teddy BINGHAM Aislinn Aragon Swethanylaapolinar BINGHAM Divya Pap Smear, Medicare (Q0091)By: Teddy On: 22-Apr-2016 Intent ZACHERYAislinn Swethakathi ZACHERY Aislinn Aragon FLU VACCINE H1N1 (G9142)By: Teddy On: 06-Mar-2015 Intent ZACHERYAislinn Swethakathi ZACHERY Divya Comments: Lot:[id number]:12/19/15Dose:0.5mLRoute:IMSite:L DltdGiven By:MIKE signed ADMINISTRATION OF H1N1 INFLUENZA On: 06-Mar-2015 Intent VIRUS VACCINE (G9141)By: Teddy BINGHAM DivyaMargo Boykin CNP Divya DEXA SCAN AXIAL SKELETON (35542)By: On: 06-Mar-2015 Intent Teddy BINGHAM DivyaMargo Boykin CNP Divya MAMMOGRAM, SCREENING, BOTH BREAST On: 06-Mar-2015 Intent (03656)By: Teddy BINGHAM DivyaMargo Boykin CNP Divya ANNUAL DEPRESSION SCREENING, 15 On: 06-Mar-2015 Intent MINUTES (G0444)By: Teddy BINGHAM DivyaMargo Boykin CNP Divya Venous Doppler - LeftBy: Teddy BINGHAM, On: 29-Aug-2014 Intent Aislinn Boykin CNP Divya MARY ALICE (Ankle Brachial Index) On: 29-Aug-2014 Intent (18754)By: Teddy BINGHAM DivyaMargo Boykin CNP Divya SPECIMEN HANDLING/TRANSPORT On: 16-May-2014 Intent (60018)By: Teddy BINGHAM DivyaMargo Boykin CNP Aislinn Aragon Flu Vaccine (Quadrivalent) 42529Bt: On: 19-Apr-2014 Intent Teddy BINGHAM Divya Cinylaapolinar BINGHAM Divya Comments: lot:[id number]:dose:0.5mLRoute: IMlocation: L armgiven by: elyse ADMINISTRATION OF INFLUENZA VIRUS On: 19-Apr-2014 Intent VACCINE (G0008)By: Mckenzie Zhao Radiology - Lumbar SpineBy: Teddy On: 29-Dec-2013 Intent ZACHERY Aislinn Boykin CNP, Aislinn Aragon Toradol Injection, 30 mg (J1885)By: On: 29-Dec-2013 Intent Alidaa ZACHERY, Aislinn Irwina ZACHERY, Aislinn Aragon Ear Irrigation (56273)By: Eben On: 19-Apr-2013 Intent Mayela LONDONO Comments: Ear Irrigation performed on:bilateralAmount/color removed cerumen:small amount of darkl brown waxOUtcome:clearUsed wax curettes FLU VAC, SPLIT, >3 YEARS, INTRAMUSC On: 19-Apr-2013 Intent (84957)By: Pamela Crooks LPN Comments: Lot:[id number]:6.14Amt:0.5mlRoute:IMSite: L DltdGiven By: Alejandra CHAVESVIS signed IMMUNIZ ADMNIN, 1 VAC, SNGL/COMBO On: 19-Apr-2013 Intent (47204)By: Pamela Crooks LPN Wax CurettesBy: Mayela Treadwell DO On: 19-Apr-2013 Intent Eprescribed prescriptions (G8553)By: On: 19-Apr-2013 Intent Pamela Crooks LPN B 12 Injection, 1000 mcg (J3420)By: On: 28-Dec-2012 Intent Kassie Tellez LPN B 12 Injection, 1000 mcg (J3420)By: On: 29-Nov-2012 Intent Pattie Malagon LPN Comments: Lot: [id number]: [id number]: 1000mcg/1mlRoute: IMSite: L deltoidGiven by: CHRISTOPHE Allen B 12 Injection, 1000 mcg (J3420)By: On: 26-Oct-2012 Intent Jina Gomes LPN Comments: Lot #[id number]/14Site-right deltoidDose-1 mlgiven by: Rishabh Gomes LPN B 12 Injection, 1000 mcg (J3420)By: On: 11-Oct-2012 Intent Deedee Cantrell Comments: lot: [id number]:06/03site/route: L deltoid/IMamt: 1ccVIS signed when applicableANDIE Mark B 12 Injection, 1000 mcg (J3420)By: On: 05-Oct-2012 Intent Ciesa RUBY DEVELOPERAislinn CNP, Mary E B 12 Injection, 1000 mcg (J3420)By: On: 27-Sep-2012 Intent Valencia Renee Comments: Lot:[id number]:06/03Dose:1mlRoute:IMSite:l armGiven By:BRYNN signed IMMUNIZ ADMNIN, 1 VAC, SNGL/COMBO On: 29-Mar-2012 Intent (41196)By: Aislinn Boykin CNP Comments: lot # [id number]- 12/18/1207yvqy-SAVZjgrnz-GElfgp- 0.5 MLCHenderson GASKET FORMER Aislinn BINGHAM MAMMOGRAM, SCREENING, BOTH BREASTS On: 29-Mar-2012 Intent (67566)By: Teddy BINGHAM Divya Cikathi ZACHERY Aislinn Aragon FLU VAC, SPLIT, >3 YEARS, INTRAMUSC On: 29-Mar-2012 Intent (37747)By: Teddy BINGHAM DivyaMargo Boykin CNP Aislinn Aragon MRI -Cervical Spine (IV Contrast On: 11-Jun-2010 Intent Needed)By: Teddy BINGHAM DivyaMargo Boykin CNP Divya Radiology - Cervical SpineBy: Eben On: 05-Jun-2010 Intent Mayela LONDONO Aerosol Treatment (03098)By: Teddy On: 03-Sep-2009 Intent Aislinn BINGHAM Swethakathi ZACHERYAislinn Pulse Oximetry (74816)By: Teddy BINGHAM, On: 06-May-2009 Intent Aislinn Aragon Swethakathi RUBY DEVELOPERAislinn Aerosol Treatment (61405)By: Teddy On: 06-May-2009 Intent ZACHERYAislinn Margo PosadaAislinn armenta CNP IMMUNIZ ADMNIN, 1 VAC, SNGL/COMBO On: 20-Mar-2009 Intent (49563)By: Teddy BINGHAM DivyaMargo Boykin CNP Aislinn Aragon FLU VAC, SPLIT, >3 YEARS, INTRAMUSC On: 20-Mar-2009 Intent (65358)By: Aislinn Boykin CNP Comments: Lot #[id number]-left deltoidgiven by:CDH ZACHERY Divya CT - Abdomen & Pelvis (IV Contrast On: 14-Mar-2009 Intent Needed)By: Aislinn Boykin CNP, CNP, Mary E Ultrasound - PelvisBy: Teddy BINGHAM, On: 14-Mar-2009 Intent Aislinn Leonard CNP Comments: attention adrenals and ovaries SPECIMEN HNDLNG/TRNSPRT, OFFC > LAB On: 18-Jan-2009 Intent (12031)By: Aislinn Boykin CNP, CNP, Mary E DXA, BONE DENSITY, AXIAL SKELETON On: 13-Nov-2008 Intent (15773)By: Aislinn Boykin CNP, CNP, Mary E MAMMOGRAM, SCREENING, BOTH BREASTS On: 13-Nov-2008 Intent (71834)By: Aislinn Boykin CNP, CNP, Mary E ELECTROCARDIOGRAM, COMPLETE (ECG) On: 11-Oct-2008 Intent (42221)By: Aislinn Boykin CNP, CNP, Mary E Planned Medications INJECTION, KETOROLAC TROMETHAMINE, PER 15 MG Ordered: 29-Dec-2013 Pending Aislinn Boykin CNP, CNP, Mary E INJECTION, METHYLPREDNISOLONE SODIUM SUCCINATE, UP TO 125 MG Ordered: 03-Dec-2017 Pending Aislinn Boykin CNP, CNP Divya Vitamin B-12 1000 MCG/ML Injection Solution Ordered: 27-Sep-2012 Pending Valencia Renee Vitamin B-12 1000 MCG/ML Injection Solution Ordered: 05-Oct-2012 Pending Aislinn Boykin CNP, CNP Divya Vitamin B-12 1000 MCG/ML Injection Solution [...] D deficiency, unspecified : DISCONTINUED - CALCIFEDIOL (35318) Indication: Vitamin D deficiency, unspecified B12 deficiency : Patient Instructions Indication: B12 deficiency Encounters Annotation/Addendum On: 09-May-2018 14:49 Encounter Diagnosis: Hypocalcemia [...] patient does not have durable power of title attorney or living will. The patient has noticed feeling helpless (feels depressed jasiel etimes). Other providers contributing to the patient's care are cider maker (Dr Genao) and other: (Neuro Danielle Mariee at [facility]).Encounter Diagnosis: Annual Medicare Physical (V70.0), Breast cancer [...] patient does not have durable power of title attorney or living will. The patient has noticed staying at home rather than doing something new or going out and lack of energy. Other providers contributing to the patient's care are cider maker and other: (neuromuscular specKraig Manriquez). [facility] [...] keep the care continum I was at [facility] yesterday Encounter Diagnosis: DEPRESSIVE DISORDER (311.0), Myopathy [...] [facility] Payers MedicareAnthem/Jose R Chavez; apolinar guarantor
--- OUTSIDE RECORDS SUMMARY | 2018-07-15 04:48 | XMS RPT_ITS ---
:1950 Author Organization OHIP Support Name Relationship Address Phone TIGRE WILD Unavailable [address] + [place] [address] R Unavailable Unavailable Iliana WILD TIGRE Unavailable [address] + [place] [address] R Unavailable Unavailable Iliana WILD TIGRE Unavailable [address] + [place] [address] R Unavailable Unavailable Iliana WILD TIGRE Unavailable [address] + [place] [address] R Unavailable Unavailable Unavailable WILD TIGRE Unavailable [address] + [place] [address] R Unavailable Unavailable Iliana WILD TIGRE Unavailable [address] + [place] [address] R Unavailable Unavailable Iliana WILD TIGRE Unavailable [address] + [place] [address] R Unavailable Unavailable Iliana WILD TIGRE Unavailable [address] + [place] [address] R Unavailable Unavailable Iliana WILD TIGRE Unavailable [address] + [place] [address] R Unavailable Unavailable Unavailable SCOTT TIGRE Unavailable [address] + [place] [address] R Unavailable Unavailable Iliana WILD TIGRE Unavailable [address] + [place] [address] R Unavailable Unavailable Unavailable WILD TIGRE Unavailable [address] + [place] [address] R Unavailable Unavailable Iliana WILD TIGRE Unavailable [address] + [place] [address] R Unavailable Unavailable Unavailable TIGRE WILD Unavailable [address] + [place] [address] R Unavailable Unavailable Unavailable TIGRE WILD Unavailable [address] + [place] [address] R Unavailable Unavailable Unavailable TIGRE WILD Unavailable [address] + [place] [address] R Unavailable Unavailable Unavailable TIGRE WILD Unavailable [address] + [place] [address] R Unavailable Unavailable TIGRE Pace Unavailable [address] + [place] [address] R Unavailable Unavailable Unavailable TIGRE WILD Unavailable [address] + [place] [address] R Unavailable Unavailable TIGRE Pace Unavailable [address] + [place] [address] R Unavailable Unavailable Unavailable TIGRE WILD Unavailable [address] + [place] [address] R Unavailable Unavailable TIGRE Pace Unavailable [address] + [place] [address] R Unavailable Unavailable TIGRE Pace Unavailable [address] + [place] [address] R Unavailable Unavailable TIGRE Pace Unavailable [address] + [place] [address] R Unavailable Unavailable TIGRE Pace Unavailable [address] + [place] [address] R Unavailable Unavailable TIGRE Pace Unavailable [address] + [place] [address] R Unavailable Unavailable Iliana WILD TIGRE Unavailable [address] + [place] [address] R Unavailable Unavailable Unavailable TIGRE WILD Unavailable [address] + [place] [address] R Unavailable Unavailable TIGRE Pace Unavailable [address] + [place] [address] R Unavailable Unavailable Unavailable TIGRE WILD Unavailable [address] + [place] [address] R Unavailable Unavailable TIGRE Pace Unavailable [address] + [place] [address] R Unavailable Unavailable Unavailable SCOTT TIGRE Unavailable [address] + [place] [address] R Unavailable Unavailable Unavailable TIGRE WILD Unavailable [address] + [place] [address] R Unavailable Unavailable Unavailable TIGRE WILD Unavailable [address] + [place] [address] R Unavailable Unavailable Unavailable TIGRE WILD Unavailable [address] + [place] [address] R Unavailable Unavailable Unavailable TIGRE WILD Unavailable [address] + [place] [address] R Unavailable Unavailable Unavailable TIGRE WILD Unavailable [address] + [place] [address] R Unavailable Unavailable Unavailable TIGRE WILD Unavailable [address] + [place] [address] R Unavailable Unavailable TIGRE Pace Unavailable [address] + [place] [address] R Unavailable Unavailable TIGRE Pace Unavailable [address] + [place] [address] R Unavailable Unavailable TIGRE Pace Unavailable [address] + [place] [address] R Unavailable Unavailable TIGRE Paec Unavailable [address] + [place] [address] R Unavailable Unavailable TIGRE Pace Unavailable [address] + [place] [address] R Unavailable Unavailable TIGRE Pace Unavailable [address] + [place] [address] R Unavailable Unavailable TIGRE Pace Unavailable [address] + [place] [address] R Unavailable Unavailable Unavailable TIGRE WILD Unavailable [address] + [place] [address] R Unavailable Unavailable Unavailable TIGRE WILD Unavailable [address] + [place] [address] R Unavailable Unavailable Unavailable TIGRE WILD Unavailable [address] + [place] [address] R Unavailable Unavailable Unavailable TIGRE WILD Unavailable [address] + [place] [address] R Unavailable Unavailable Unavailable TIGRE WILD Unavailable [address] + [place] [address] R Unavailable Unavailable Unavailable SCOTT TIGRE Unavailable [address] + [place] [address] R Unavailable Unavailable TIGRE Pace Unavailable [address] + [place] [address] R Unavailable Unavailable TIGRE Pace Unavailable [address] + [place] [address] R Unavailable Unavailable TIGRE Pace Unavailable [address] +[phone]~330-4 [place] [address] R Unavailable Unavailable TIGRE Pace Unavailable [address] + [place] [address] R Unavailable Unavailable TIGRE Pace Unavailable [address] +[phone]~330-4 [place] [address] R Unavailable Unavailable TIGRE Pace Unavailable [address] +[phone]~330-4 [place] [address] R Unavailable Unavailable TIGRE Pace Unavailable [address] +[phone]~330-4 [place] [address] R Unavailable Unavailable TIGRE Pace Unavailable [address] + [place] [address] R Unavailable Unavailable TIGRE Pace Unavailable [address] + [place] [address] R Unavailable Unavailable TIGRE Pace Unavailable [address] +[phone]~330-4 [place] [address] R Unavailable Unavailable TIGRE Pace [address] +[phone]~330-4 [place] [address] R Unavailable Unavailable TIGRE Pace Unavailable [address] +[phone]~330-4 [place] [address] R Unavailable Unavailable TIGRE Pace Unavailable [address] +[phone]~330-4 [place] [address] R Unavailable Unavailable TIGRE Pace Unavailable [address] + [place] [address] R Unavailable Unavailable TIGRE Pace Unavailable [address] +[phone]~330-4 [place] [address] R Unavailable Unavailable TIGRE Pace Unavailable [address] +[phone]~330-4 [place] [address] R Unavailable Unavailable Iliana WILD TIGRE Unavailable [address] +[phone]~330-4 [place] [address] R Unavailable Unavailable Iliana WILD TIGRE Unavailable [address] +[phone]~330-4 [place] [address] R Unavailable Unavailable Iliana WILD TIGRE Unavailable [address] +[phone]~330-4 [place] [address] R Unavailable Unavailable Iliana WILD TIGRE Unavailable [address] +[phone]~330-4 [place] [address] R Unavailable Unavailable Iliana WILD TIGRE Unavailable [address] +[phone]~330-4 [place] [address] R Unavailable Unavailable Iliana WILD TIGRE Unavailable [address] +[phone]~330-4 [place] [address] R Unavailable Unavailable Iliana WILD TIGRE Unavailable [address] +[phone]~330-4 [place] [address] R Unavailable Unavailable Iliana WILD TIGRE Unavailable [address] +[phone]~330-4 [place] [address] R Unavailable Unavailable Iliana WILD TIGRE Unavailable [address] +[phone]~330-4 [place] [address] R Unavailable Unavailable Iliana WILD TIGRE Unavailable [address] +[phone]~330-4 [place] [address] R Unavailable Unavailable Iliana WILD TIGRE Unavailable [address] +[phone]~330-4 [place] [address] R Unavailable Unavailable Unavailable SCOTT TIGRE Unavailable [address] +[phone]~330-4 [place] [address] R Unavailable Unavailable Iliana WILD TIGRE Unavailable [address] +[phone]~330-4 [place] [address] R Unavailable Unavailable Iliana WILD TIGRE Unavailable [address] +[phone]~330-4 [place] [address] R Unavailable Unavailable Iliana WILD TIGRE Unavailable [address] +[phone]~330-4 [place] [address] R Unavailable Unavailable Iliana TIGRE WILD Unavailable [address] +[phone]~330-4 [place] [address] R Unavailable Unavailable Unavailable WILD, TIGRE Unavailable [address] +[phone]~330-4 [place] [address] R Unavailable Unavailable Iliana WILD TIGRE Unavailable [address] +[phone]~330-4 [place] [address] R Unavailable Unavailable Iliana WILD TIGRE Unavailable [address] +[phone]~330-4 [place] [address] R Unavailable Unavailable Iliana WILD TIGRE Unavailable [address] +[phone]~330-4 [place] [address] R Unavailable Unavailable Iliana WILD TIGRE Unavailable [address] +[phone]~330-4 [place] [address] R Unavailable Unavailable Iliana WILD TIGRE Unavailable [address] + [place] [address] R Unavailable Unavailable Iliana WILD TIGRE Unavailable [address] + [place] [address] R Unavailable Unavailable Iliana WILD TIGRE Unavailable [address] +[phone]~330-4 [place] [address] R Unavailable Unavailable Iliana WILD TIGRE Unavailable [address] +[phone]~330-4 [place] [address] R Unavailable Unavailable Iliana WILD TIGRE Unavailable [address] +[phone]~330-4 [place] [address] R Unavailable Unavailable Iliana WILD TIGRE Unavailable [address] +[phone]~330-4 [place] [address] R Unavailable Unavailable Iliana WILD TIGRE Unavailable [address] +[phone]~330-4 [place] [address] R Unavailable Unavailable Iliana WILD TIGRE Unavailable [address] +[phone]~330-4 [place] [address] R Unavailable Unavailable Iliana WILD TIGRE Unavailable [address] +[phone]~330-4 [place] [address] R Unavailable Unavailable Iliana WILD TIGRE Unavailable [address] +[phone]~330-4 [place] [address] R Unavailable Unavailable Iliana WILD TIGRE Unavailable [address] +[phone]~330-4 [place] [address] R Unavailable Unavailable Unavailable WILDTIGRE Unavailable [address] +[phone]~330-4 [place] [address] R Unavailable Unavailable Unavailable Care Team Providers Name Role Phone JENNIFER IZQUIERDO Attending Unavailable TIMBO JENNIFER Haydee Attending Unavailable Ciesa, Aislinn Attending Unavailable Ciesa, Aislinn Referring Unavailable Ciesa, Aislinn Consulting Unavailable Kuenzler, Jennifer Attending Unavailable Kuenzler, Jennifer Referring Unavailable Ciesa, Aislinn Primary Care Unavailable Kuenzler, Jennifer Attending Unavailable Ciesa, Aislinn Primary Care Unavailable Kuenzler, Jennifer Attending Unavailable Ciesa, Aislinn Primary Care Unavailable Kuenzler, Jennifer Attending Unavailable Kuenzler, Jennifer Referring Unavailable Ciesa, Aislinn Primary Care Unavailable Kuenzler, Jennifer Attending Unavailable Kuenzler, Jennifer Referring Unavailable Ciesa, Aislinn Primary Care Unavailable Kuenzler, Jennifer Attending Unavailable Kuenzler, Jennifer Referring Unavailable Ciesa, Aislinn Primary Care Unavailable Kuenzler, Jennifer Attending Unavailable Kuenzler, Jennifer Referring Unavailable Ciesa, Aislinn Primary Care Unavailable Kuenzler, Jennifer Attending Unavailable Kuenzler, Jennifer Referring Unavailable Ciesa, Aislinn Primary Care Unavailable Kuenzler, Jennifer Attending Unavailable Kuenzler, Jennifer Referring Unavailable Ciesa, Aislinn Primary Care Unavailable Kuenzler, Jennifer Attending Unavailable Kuenzler, Jennifer Referring Unavailable Ciesa, Aislinn Primary Care Unavailable Kuenzler, Jennifer Attending Unavailable Kuenzler, Jennifer Referring Unavailable Ciesa, Aislinn Primary Care Unavailable Kuenzler, Jennifer Attending Unavailable Kuenzler, Jennifer Referring Unavailable Ciesa, Aislinn Primary Care Unavailable Kuenzler, Jennifer Attending Unavailable Kuenzler, Jennifer Referring Unavailable Ciesa, Aislinn Primary Care Unavailable Kuenzler, Jennifer Attending Unavailable Kuenzler, Jennifer Referring Unavailable Ciesa, Aislinn Primary Care Unavailable Kuenzler, Jennifer Attending Unavailable Kuenzler, Jennifer Referring Unavailable Ciesa, Aislinn Primary Care Unavailable Francisca Mejia Unavailable Kuenzler, Jennifer Attending Unavailable Kuenzler, Jennifer Referring Unavailable Ciesa, Aislinn Primary Care Unavailable Kuenzler, Jennifer Attending Unavailable Kuenzler, Jennifer Referring Unavailable Ciesa, Aislinn Primary Care Unavailable Kuenzler, Jennifer Attending Unavailable Kuenzler, Jennifer [facility] Kuenzler, Jennifer Attending Unavailable Kuenzler, Jennifer Referring [facility] Unavailable Kuenzler, Jennifer Attending Unavailable Kuenzler, Jennifer Referring [facility] Unavailable Kuenzler, Jennifer Attending Unavailable Kuenzler, Jennifer Referring [facility] Unavailable Kuenzler, Jennifer Attending Unavailable Kuenzler, Jennifer Referring [facility] Unavailable Kuenzler, Jennifer Attending Unavailable Kuenzler, Jennifer Referring [facility] Unavailable Kuenzler, Jennifer Attending Unavailable Kuenzler, Jennifer Referring [facility] Unavailable Kuenzler, Jennifer Attending Unavailable Kuenzler, Jennifer Referring [facility] Unavailable Kuenzler, Jennifer Attending Unavailable Kuenzler, Jennifer Referring [facility] Unavailable Kuenzler, Jennifer Attending Unavailable Kuenzler, Jennifer Referring [facility] Unavailable Kuenzler, Jennifer Attending Unavailable Kuenzler, Jennifer Referring [facility] Unavailable Kuenzler, Jennifer Attending Unavailable Kuenzler, Jennifer Referring [facility] Unavailable Kuenzler, Jennifer Attending Unavailable Kuenzler, Jennifer Referring [facility] Unavailable Kuenzler, Jennifer Attending Unavailable Kuenzler, Jennifer Referring [facility] Unavailable Kuenzler, Jennifer Attending Unavailable Kuenzler, Jennifer Referring [facility] Unavailable Kuenzler, Jennifer Attending Unavailable Kuenzler, Jennifer Referring [facility] Unavailable Kuenzler, Jennifer Attending Unavailable Kuenzler, Jennifer Referring [facility] Unavailable Kuenzler, Jennifer Attending Unavailable Kuenzler, Jennifer Referring [facility] Unavailable Kuenzler, Jennifer [facility] Ref[facility] Unavailable Kuenzler, Jennifer Attending Unavailable Ciesa, Aislinn Referring [facility] Unavailable Kuenzler, Jennifer Attending Unavailable Kuenzler, Jennifer Referring [facility] Unavailable Kuenzler, Jennifer Attending Unavailable Kuenzler, Jennifer Referring Unavailable Ciesa, Aislinn Primary Care Unavailable Kuenzler, Jennifer Attending Unavailable Kuenzler, Jennifer Referring [facility] Unavailable Kuenzler, Jennifer Attending Unavailable Kuenzler, Jennifer Referring Unavailable Ciesa, Aislinn Primary Care Unavailable Kuenzler, Jennifer Attending Unavailable Kuenzler, Jennifer Referring [facility] Unavailable Kuenzler, Jennifer Attending Unavailable Kuenzler, Jennifer Referring [facility] Unavailable Kuenzler, Jennifer Attending Unavailable Kuenzler, Jennifer Referring [facility] Unavailable Danelle Myers Attending Unavailable OdilonlanDanelle martins Referring [facility]available [facility] Unavailable Kuenzler, Jennifer Attending Unavailable Kuenzler, Jennifer Referring [facility]available [facility] Unavailable Kuenzler, Jennifer Attending Unavailable Kuenzler, Jennifer Referring [facility]available [facility] Unavailable Kuenzler, Jennifer Attending Unavailable Kuenzler, Jennifer Referring [facility]available [facility] Unavailable Vaishnavi Dietz Attending Unavailable NekiVaishnavi Referring [facility]available [facility] Unavailable Vaishnavi Dietz Attending Unavailable NekiVaishnavi Referring Unavailable [facility] Unavailable Kuenzler, Jennifer Attending Unavailable Kuenzler, Jennifer Referring [facility]available [facility] Unavailable Vaishnavi Dietz Attending Unavailable NekiNaomiey Referring Unavailable Ciesa, Aislinn Primary Care Unavailable Kuenzler, Jennifer Attending Unavailable Kuenzler, Jennifer Referring [facility] Unavailable Ciesa, Aislinn Attending Unavailable Ciesa Aislinn Referring [facility]available [facility] Unavailable Kuenzler, Jennifer Attending Unavailable Kuenzler, Jennifer Referring [facility]available [facility] Unavailable Kuenzler, Jennifer Attending Unavailable Kuenzler, Jennifer Referring [facility]available [facility] Unavailable Kuenzler, Jennifer Attending [facility]available [facility] Unavailable Kuenzler, Jennifer Referring Unavailable Kuenzler, Jennifer Attending Unavailable Kuenzler, Jennifer Referring [facility] Unavailable Kuenzler, Jennifer Attending Unavailable Kuenzler, Jennifer Referring [facility]available [facility] Unavailable Kuenzler, Jennifer Attending Unavailable Kuenzler, Jennifer Referring [facility]available [facility] Unavailable Kuenzler, Jennifer Attending Unavailable Kuenzler, Jennifer Referring [facility]available [facility] Unavailable Kuenzler, Jennifer Attending Unavailable Kuenzler, Jennifer Referring [facility]available [facility] Unavailable Kuenzler, Jennifer Attending Unavailable Kuenzler, Jennifer Referring [facility]available [facility] Unavailable Kuenzler, Jennifer Attending Unavailable Kuenzler, Jennifer Referring [facility]available [facility] Unavailable Kuenzler, Jennifer Attending Unavailable Kuenzler, Jennifer Referring [facility]available [facility] Unavailable Kuenzler, Jennifer Attending Unavailable Kuenzler, Jennifer Referring [facility]available [facility] Unavailable Kuenzler, Jennifer Attending Unavailable Kuenzler, Jennifer Referring [facility]available [facility] Unavailable Kuenzler, Jennifer Attending Unavailable Kuenzler, Jennifer Referring [facility]available [facility] Unavailable Kuenzler, Jennifer Attending Unavailable Kuenzler, Jennifer Referring [facility] Unavailable DOCTOR, OUT OF TOWN Consulting Unavailable Kuenzler, Jennifer Attending Unavailable Kuenzler, Jennifer Referring [facility]available [facility] Unavailable Kuenzler, Jennifer Attending Unavailable Kuenzler, Jennifer Referring [facility] Unavailable Kuenzler, Jennifer Attending Unavailable Kuenzler, Jennifer Referring [facility]available [facility] Unavailable Kuenzler, Jennifer Attending Unavailable Kuenzler, Jennifer Referring [facility] Unavailable Kuenzler, Jennifer Attending Unavailable Kuenzler, Jennifer Referring [facility]available [facility] Unavailable Kuenzler, Jennifer Attending Unavailable Kuenzler, Jennifer Referring [facility]available [facility] Unavailable Kuenzler, Jennifer Attending [facility]available [facility] Unavailable Kuenzler, Jennifer Attending Unavailable [facility] Unavailable Kuenzler, Jennifer Referring Unavailable OdilonlankiHammadma Attending Unavailable [facility] Unavailable Kuenzler, Jennifer Attending Unavailable [facility] Unavailable Vellanki, Danelle Attending Unavailable [facility] Unavailable Vellanki, Danelle Referring Unavailable Kuenzler, Jennifer Attending Unavailable [facility] Unavailable Kuenzler, Jennifer Attending Unavailable [facility] Unavailable Kuenzler, Jennifer Attending Unavailable [facility] Unavailable Kuenzler, Jennifer Attending Unavailable Kuenzler, Jennifer Referring Unavailable [facility] Unavailable Kuenzler, Jennifer Attending Unavailable Kuenzler, Jennifer Referring [facility]available [facility] Unavailable Kuenzler, Jennifer Attending Unavailable Kuenzler, Jennifer Referring [facility]available [facility] Unavailable Kuenzler, Jennifer Attending Unavailable Kuenzler, Jennifer Referring [facility]available [facility] Unavailable Kuenzler, Jennifer Attending Unavailable Kuenzler, Jennifer Referring Unavailable [facility] Attending [facility] Referring [facility]available [facility] Unavailable Kuenzler, Jennifer Attending Unavailable Kuenzler, Jennifer Referring [facility]available [facility] Unavailable Kuenzler, Jennifer Attending Unavailable Kuenzler, Jennifer Referring [facility]available [facility] Unavailable Kuenzler, Jennifer Attending Unavailable Kuenzler, Jennifer Referring [facility] Unavailable Kuenzler, Jennifer Attending Unavailable Kuenzler, Jennifer Referring [facility]available [facility] Unavailable Kuenzler, Jennifer Attending Unavailable Kuenzler, Jennifer Referring [facility] Unavailable Kuenzler, Jennifer Attending Unavailable Kuenzler, Jennifer Referring [facility] Unavailable Kuenzler, Jennifer Attending Unavailable Kuenzler, Jennifer Referring [facility] Unavailable Kuenzler, Jennifer Attending Unavailable Kuenzler, Jennifer Referring Unavailable Aislinn [facility] Unavailable Kuenzler, Jennifer Attending Unavailable Kuenzler, Jennifer Referring Unavailable Aislinn [facility] Unavailable Forestler, Jennifer Attending Unavailable Timbo, Jennifer Referring Unavailable Aislinn [facility] Care Unavailable [facility] Unavailable Kuenzler, Jennifer Attending Unavailable Kuenzler, Jennifer Referring Unavailable PROBLEMS PROBLEMS DATE TYPE CONDITION / CODE ATTENDING STATUS SOURCE Unknown M79.606 - Pain in leg, Timbo, Active [facility] 8 unspecified / [facility] M79.606(ICD-10) Hospital Repository Unknown R53.83 - Other fatigue / Kumillijimmy, Active Tae 8 R53.83(ICD-10) [facility] Hospital Repository Unknown 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, 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 / Repository E71.314(ICD-10) Unknown N39.0 - Urinary tract Vaishnavi Dietz Active Tae 8 infection, site not Community specified / N39.0(ICD-10) Hospital Repository Unknown 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, 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, Jennifer [facility] unspecified / Hospital E71.40(ICD-10) Repository PROCEDURES PROCEDURES No Procedure Records FoundRESULTS RESULTS PROGRESS Observed: 05/31/2018 Status: COMPLETED Source: [place] 11:17 AM [facility] REPOSITORY HNO ID: [id number] Author: Jennifer Izquierdo Service: (none) Author Type: Physician Type: Progress Notes Filed: 05/31/2018 12:22 PM Note Text: S: Patient reports that she is now getting no additional normal saline with carnitine infusions (due to concern for fluid overload; previously gave NS with carnitine which seemed to decrease leg pain and improve clarity of thinking). She feels that she still has some leg pain but this seems more like the carnitine symptoms rather than leg swelling like when she was having fluid overload. Cardiac evaluation was considered. She feels she drinks plenty of fluids now but she still feels she is dry. She wonders if she would be able to get smaller amounts of IV fluids. She recalls that she was having incontinence when she was getting IVF and now realizes she has better bladder control off IVF. She had urology assessment and she was told her bladder did not fully empty, possibly due to weakness, and this could be causing incontinence. She was put on a low-grade antibiotic due to urinary odor. She wonders if she could get additional carnitine as she tends to notice worsening of her symptoms after about 2 days post-infusions. She still has pain in the feet and legs which seems to be related to the carnitine symptoms. She still notices that her pain level is higher when she is more active. When she is really bad her arms get worse. She is hoping to go on a trip out of the country for a week and wonders if she could do 3 days of infusions on a single week prior to her week of travel. She is also going to be away on [place] and would like to be able to get infusions there again like last year (fax [phone]). O: BP 139/56 Pulse 62 Resp 18 Ht 162.6 cm (5' 4) Wt 89.4 kg (197 lb) BMI 33.81 kg/m? MS: alert and responsive, language intact CN: EOMI, V1-V3 intact bilaterally, face symmetrical, hearing grossly intact bilaterally Motor: 4+/5 infraspinatus and deltoids, 4-/5 hip flexors bilaterally, otherwise 5/5 throughout all muscle groups, nl tone and bulk, able to arise from a chair without using hands Sensory: intact to LT Reflexes: 2+ bilateral biceps, triceps, brachioradialis, 1+ knees, and absent ankles; no crossed adductors; no Ma's or Troemner's bilaterally Cerebellar: FTN slowed , HTS intact bilaterally; HALIE slowed and low amplitude Gait: antalgic but intact including toe and heel walking, moderate difficulty with tandem gait, Romberg with foot slide A/P: Felix Wild is a 68 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 She feels that overall her symptoms have been manageable though she had troublesome pain symptoms starting last week. She feels she gets benefit from carnitine infusions. Will continue carnitine IV two infusions a day on two days a week but increase the dose per infusion from 1.5 g to 2 g. Will do extra infusion pre and post anticipated vacation and send script to [facility] in [place], [place] for infusions while she is there ([phone]). Follow up in 6 months. Jennifer Izquierdo MD CNOV Observed: 05/31/2018 Status: COMPLETED Source: [place] 10:40 AM [facility] REPOSITORY Office Visit (NENMMN) FELIX WILD ([id number]) 1950 F Date Time Provider Department 05/31/18 10:40 AM JENNIFER IZQUIERDO During your visit today, we recorded the following information about you: Pulse Respiration Blood pressure Weight 62/minute 18/minute 139/56 89.4 kg Height 1.626 m Jennifer Izquierdo MD 05/31/2018 12:22 PM Signed S: Patient reports that she is now getting no additional normal saline with carnitine infusions (due to concern for fluid overload; previously gave NS with carnitine which seemed to decrease leg pain and improve clarity of thinking). She feels that she still has some leg pain but this seems more like the carnitine symptoms rather than leg swelling like when she was having fluid overload. Cardiac evaluation was considered. She feels she drinks plenty of fluids now but she still feels she is dry. She wonders if she would be able to get smaller amounts of IV fluids. She recalls that she was having incontinence when she was getting IVF and now realizes she has better bladder control off IVF. She had urology assessment and she was told her bladder did not fully empty, possibly due to weakness, and this could be causing incontinence. She was put on a low-grade antibiotic due to urinary odor. She wonders if she could get additional carnitine as she tends to notice worsening of her symptoms after about 2 days post-infusions. She still has pain in the feet and legs which seems to be related to the carnitine symptoms. She still notices that her pain level is higher when she is more active. When she is really bad her arms get worse. She is hoping to go on a trip out of the country for a week and wonders if she could do 3 days of infusions on a single week prior to her week of travel. She is also going to be away on [place] and would like to be able to get infusions there again like last year (fax [phone]). O: BP 139/56 Pulse 62 Resp 18 Ht 162.6 cm (5' 4) Wt 89.4 kg (197 lb) BMI 33.81 kg/m? MS: alert and responsive, language intact CN: EOMI, V1-V3 intact bilaterally, face symmetrical, hearing grossly intact bilaterally Motor: 4+/5 infraspinatus and deltoids, 4-/5 hip flexors bilaterally, otherwise 5/5 throughout all muscle groups, nl tone and bulk, able to arise from a chair without using hands Sensory: intact to LT Reflexes: 2+ bilateral biceps, triceps, brachioradialis, 1+ knees, and absent ankles; no crossed adductors; no Ma's or Troemner's bilaterally Cerebellar: FTN slowed , HTS intact bilaterally; HALIE slowed and low amplitude Gait: antalgic but intact including toe and heel walking, moderate difficulty with tandem gait, Romberg with foot slide A/P: Felix Wild is a 68 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 She feels that overall her symptoms have been manageable though she had troublesome pain symptoms starting last week. She feels she gets benefit from carnitine infusions. Will continue carnitine IV two infusions a day on two days a week but increase the dose per infusion from 1.5 g to 2 g. Will do extra infusion pre and post anticipated vacation and send script to [facility] in [place], [place] for infusions while she is there ([phone]). Follow up in 6 months. MD Jennifer Marlow MD 05/31/2018 12:29 PM Signed Addended by: JENNIFER IZQUIERDO MD on: 05/31/2018 12:29 PM Modules accepted: Orders Referring Provider: SELF [200] Allergies As of Date: 05/31/2018 Noted Allergy Reaction OXYCODONE HCL 12/24/2016 14 - Other: See Comments METOCLOPRAMIDE 09/11/2002 Comments: reglan, elvira DAKSHA (PENTAZOCINE) 03/13/2004 14 - Other: See Comments Comments: Nervous and passed out Date Reviewed: 05/31/2018 Reviewed by: Gege lBunt Ma - Fully Assessed Reason for Visit: Follow Up [171] Primary Visit Diagnosis:Muscle carnitine deficiency (HCC) [E71.40] Order(s):cyclobenzaprine (FLEXERIL) 5 mg tabletTake 1 tablet by mouth three times daily as needed.Disp: 30 tabletRfl: 2 levOCARNitine (CARNITOR) 330 mg tablettake 3 tablets by mouth four times a dayDisp: 360 tabletRfl: 11 Prescriptions as of 05/31/2018 Sig: ALBUTEROL SULFATE HFA 90 MCG/* Use 2 puffs every 4 hours as * AMLODIPINE ORAL Take by mouth. ALIGN 4 MG CAPSULE Take one(1) tablet daily. CEPHALEXIN 250 MG CAPSULE Take 250 mg by mouth once john* CYCLOBENZAPRINE 5 MG TABLET Take 1 tablet by mouth three * FLUOXETINE 20 MG CAPSULE Take 1 capsule by mouth once * FLUTICASONE 100 MCG-SALMETERO* Inhale 1 Puff as instructed t* LEVOCARNITINE 330 MG TABLET take 3 tablets by mouth four * DEEP BLUE RELIEF TOPICAL Apply to affected area. MULTIVITAMIN TABLET Take one(1) tablet daily. SULFASALAZINE 500 MG TABLET Take 2 tablets by mouth twice* SULINDAC 150 MG TABLET Take one(1) tablet two(2) cherry* TRAZODONE 50 MG TABLET Take 1 tablet by mouth at bed* ULTRAM 50 MG TABLET Take one tablet by mouth up t* Problem List As Of Date 05/31/2018 Noted Resolved Myalgia and myositis, unspecified [AEC0320] INVALID FOR*03/11/2016 ANXIETY STATE NOS [F41.1] INVALID [...] SYNDROME [M35.00] IMPAIRED FASTING GLUCOSE [R73.01] INVALID FOR* Abnormal X-Ray Examination [R93.89] INVALID FOR* Diverticulosis [K57.90] INVALID FOR* Gastritis/Duodenitis [K29.70, K29.90] INVALID FOR* Carnitine deficiency (HCC) [E71.40] INVALID FOR*03/11/2016 Primary carnitine deficiency (HCC) [E71.41] INVALID FOR*03/11/2016 LINWOOD (obstructive sleep apnea) [G47.33] INVALID FOR* Thoracic or lumbosacral neuritis or radiculitis*INVALID FOR* Lumbago [M54.5] INVALID FOR*08/21/2014 Low back pain [M54.5] INVALID FOR* Muscle carnitine deficiency (HCC) [E71.40] INVALID FOR* Prescriptions ordered this encounter Disp Refills Start End CYCLOBENZAPRINE 5 MG TABLET 30 t* 2 05/31/2018 Route: ORAL Sig: Take 1 tablet by mouth three times daily as needed. LEVOCARNITINE 330 MG TABLET 360 * 11 05/31/2018 Sig: take 3 tablets by mouth four times a day Medications Discontinued During This Encounter Cholecalciferol, Vitamin D3, (VITAMI* 0 02/17/2013 05/31/2018 Class: Med Update Route: ORAL Sig: Take 1 capsule by mouth once daily. Patient not taking: Reported on 05/31/2018 Disc: Reason for discontinue is not on file. Coenzyme E08-Afpzoun E (COQ10 SG 100* 0 12/10/2011 05/31/2018 Class: Historical Med Route: ORAL Sig: Take by mouth. Disc: Reason for discontinue is not on file. cyclobenzaprine (FLEXERIL) 5 mg tabl* 30 t* 2 04/24/2015 05/31/2018 Class: Print RX Route: ORAL Sig: Take 1 tablet by mouth three times daily as needed. Disc: Reason for discontinue is not on file. levOCARNitine (CARNITOR) 330 mg tabl* 360 * 11 03/17/2017 05/31/2018 Sig: take 3 tablets by mouth four times a day Disc: Reason for discontinue is not on file. Disposition: Return in about 6 months (around 11/29/2018) for carnitine deficiency. Follow-up and Disposition History Recorded Letter Text Jennifer Izquierdo MD Neurological [address] [address] , ext [phone] PRESCRIPTION SPECIFICS: NAME: Felix Wild DATE: 05/31/2018 ADDRESS: [address] [place] [address] PHONE: [phone] (home) : 1950 PRESCRIPTION: Carnitine IV infusion ? 2 gram two doses a day on Wednesday and Wednesday For 6 months DIAGNOSIS: (E71.40) Muscle carnitine deficiency (HCC) (primary encounter diagnosis) Jennifer Izquierdo MD Letter Text Jennifer Izquierdo MD [place] [id number] , ext [phone] PRESCRIPTION SPECIFICS: NAME: Felix Wild DATE: 05/31/2018 ADDRESS: [address] [place] [address] PHONE: [phone] (home) : 1950 PRESCRIPTION: Carnitine IV infusion ? 1.5 gram two doses a day on Wednesday, Wednesday, and Wednesday for only the weeks of Jul 04- and Jul 18 - Jul 22 DIAGNOSIS: (E71.40) Muscle carnitine deficiency (HCC) (primary encounter diagnosis) Jennifer Izquierdo MD Letter Text Jennifer Izquierdo MD [address] [address] , ext [phone] PRESCRIPTION SPECIFICS: NAME: Felix Wild DATE: 05/31/2018 ADDRESS: [address] [place], [place] [id number] PHONE: [phone] (home) : 1950 PRESCRIPTION: Carnitine IV infusion ? 2 gram two doses a day on Wednesday, Wednesday, and Wednesday for only the weeks of Jul 04 and Jul 18 - Jul 22 DIAGNOSIS: (E71.40) Muscle carnitine deficiency (HCC) (primary encounter diagnosis) Jennifer Izquierdo MD Letter Text Jennifer Izquierdo MD Neurological [place] [address] [place], [place] [phone] , ext [phone] PRESCRIPTION SPECIFICS: NAME: Felix Wild DATE: 05/31/2018 ADDRESS: [address] [place] [address] PHONE: [phone] (home) : 1950 PRESCRIPTION: Carnitine IV infusion ? 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) Jennifer Izquierdo MD Encounter Status:Closed by JENNIFER IZQUIERDO MD on 05/31/18 VENOUS DUPLEX LOWER Observed: 05/12/2018 Status: F Source: [place] EXTREMITY 1:42 PM [facility] REPOSITORY [facility] Cardiovascular Services [address] [place] [address] Venous Duplex US, Unilateral 05/10/18 1256 MR#: [id number] Acct: [id number] Name: FELIX WILD Rep #: [id number] : 1950 67 From: Anthony Washburn MD Attending Dr: Aislinn Espinal NP Status: REG CLI Ordering Dr: Aislinn Espinal NP-C Date: 05/10/18 Location: CVS Sex: F C Admitted: Reason For Study: pain RIGHT LEFT CFV is compressible, spontaneous, phasic, GSV is normal. competent and demonstrates normal CFV is compressible, spontaneous, phasic, augmentation. competent, and demonstrates normal Procedure augmentation. Exam performed in department. FV is compressible, spontaneous, phasic, The exam was diagnostic. competent and demonstrates normal A preliminary report was called and/or faxed augmentation. to Aislinn Espinal. POP V is compressible, spontaneous, phasic, competent and demonstrates normal augmentation. T/P Trunk is compressible. PTV is compressible. LT PerV is compressible. <> Interpretation Summary Deep veins of the left lower extremity are patent and compressible segmentally. There is no evidence of left lower extremity deep vein thrombosis. Valvular competence appears intact within the proximal deep venous system on the left . The left greater saphenous vein appears patent and compressible segmentally. 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, [address] PREALBUMIN Collected: 05/11/2018 Status: F Source: [place] 9:56 AM [facility] REPOSITORY TYPE CODE TESTS RESULT OUT OF REFERENCE UNITS RANGE LAB L506.0500 20.0-40.0 mg/dL Low PREALBUMIN 19.2 Performed By: #### L501.5200, L506.0500 #### [facility] [address] [place], [address] BNP,B-TYPE NATRIURETIC Collected: 05/11/2018 Status: F Source: [place] 9:56 AM [facility] REPOSITORY TYPE CODE TESTS RESULT OUT OF RANGE REFERENCE UNITS LAB L503.6620 0-100 pg/mL High B-TYPE 147.4 FATOUMATA PEP Performed By: #### L503.6620 #### [facility] [address] [place], [address] COMPREHENSIVE METABOLIC Collected: 05/06/2018 Status: F Source: [place] 2:04 PM [facility] REPOSITORY TYPE CODE TESTS RESULT OUT OF RANGE REFERENCE UNITS LAB L501.0100 74-106 mg/dL Normal GLU 84 Result Comment: Please note revised GLUCOSE reference range effective 2017. LAB L501.1000 7-18 mg/dL High BUN 21 LAB L501.1100 0.55-1.02 mg/dL Low CREAT,SERUM 0.54 Result Comment: The validity of the calculated GFR AND GFRAA in patients over 70 years has not been determined. Clinical correlation is essential. LAB L501.1110 >60 mL/min Normal EST GFR 119 Result Comment: Non- GFR Calc LAB L501.1115 >60 mL/min Normal EST GFR - AA 144 Result Comment: GFR Calc LAB L501.1300 10-20 RATIO High BUN/CRE 39.0 LAB L501.1500 6.4-8.2 g/dL T Normal PROT 6.6 LAB L501.1800 3.2-5.0 g/dL Low ALB 3.1 LAB L501.1950 2.2-4.2 g/dL Normal GLOB 3.5 LAB L501.2000 0.9-2.4 RATIO Normal A/G 0.9 LAB L501.2200 8.5-10.1 mg/dL Low CA 7.8 LAB L501.4100 15-37 U/L Normal AST 18 LAB L501.4305 45-117 U/L Normal ALK P 60 LAB L501.4405 13-56 U/L Normal ALT 21 LAB L501.4600 0.20-1.00 mg/dL T Normal BILI 0.60 LAB L501.5300 136-145 mmol/L NA Normal 141 LAB L501.5600 3.5-5.1 mmol/L K Normal 4.0 LAB L501.5900 98-107 mmol/L High CL 110 LAB L501.6100 21.0-32.0 mmol/L Normal CO2 26.0 LAB L501.6200 5-15 Normal GAP 5 Performed By: #### L500.4050 #### [facility] [address] [place], [place], [id number] CBC W/DIFF, AUTOMATED Collected: 05/06/2018 Status: F Source: [place] 2:04 PM [facility] REPOSITORY TYPE CODE TESTS RESULT OUT OF RANGE REFERENCE UNITS LAB L100.1000 4.4-11.0 K/mm3 Normal WBC 6.5 LAB L100.1200 4.2-5.4 M/mm3 Low RBC 4.17 LAB L100.1300 12.0-15.0 g/dl Normal HGB 12.8 LAB L100.1400 37-47 % Normal HCT 40.2 LAB L100.1500 81-99 fL Normal MCV 96.4 LAB L100.1600 27.0-32.0 pg Normal MCH 30.7 LAB L100.1700 32-36 g/gl Low MCHC 31.8 LAB L100.1810 11.6-14.6 % Normal RDW CV 13.8 LAB L100.1820 35.1-43.9 fl High RDW SD 48.4 LAB L100.1900 150-450 K/mm3 Normal PLT 307 LAB L100.2000 6.2-12.0 fl Normal MPV 9.7 LAB L100.2100 47-70 % Normal NEUT% 60.4 LAB L100.2200 19-41 % Normal LY% 30.1 LAB L100.2300 0-10 % Normal MONO% 8.2 LAB L100.2400 0-5 % Normal EO% 0.8 LAB L100.2500 0-1 % Normal BASO% 0.3 LAB L100.2550 0.0-0.9 % Normal IM GRAN % 0.200 Result Comment: IG% - Immature Granulocytes (promyelocytes, myelocytes and metamyelocytes) > 1% indicates that a LEFT SHIFT is Present. LAB L100.2620 2.0-7.7 X10 3/uL Normal Absolute Neut 3.9 LAB L100.2720 0.83-4.51 X10 3/ul Normal Absolute Lymph 1.95 Performed By: #### L100.0100 #### [facility] [place], [address] CBC W/DIFF, AUTOMATED Collected: 05/03/2018 Status: F Source: [place] 11:32 AM [facility] REPOSITORY TYPE CODE TESTS RESULT OUT OF RANGE REFERENCE UNITS LAB L100.1000 4.4-11.0 K/mm3 Normal WBC 4.9 LAB L100.1200 4.2-5.4 M/mm3 Low RBC 3.77 LAB L100.1300 12.0-15.0 g/dl Low HGB 11.7 LAB L100.1400 37-47 % Low HCT 36.6 LAB L100.1500 81-99 fL Normal MCV 97.1 LAB L100.1600 27.0-32.0 pg Normal MCH 31.0 LAB L100.1700 32-36 g/gl Normal MCHC 32.0 LAB L100.1810 11.6-14.6 % Normal RDW CV 13.7 LAB L100.1820 35.1-43.9 fl High RDW SD 46.8 LAB L100.1900 150-450 K/mm3 Normal PLT 277 LAB L100.2000 6.2-12.0 fl Normal MPV 9.3 LAB L100.2100 47-70 % Normal NEUT% 57.8 LAB L100.2200 19-41 % Normal LY% 28.5 LAB L100.2300 0-10 % High MONO% 11.7 LAB L100.2400 0-5 % Normal EO% 1.2 LAB L100.2500 0-1 % Normal BASO% 0.6 LAB L100.2550 0.0-0.9 % Normal IM GRAN % 0.200 Result Comment: IG% - Immature Granulocytes (promyelocytes, myelocytes and metamyelocytes) > 1% indicates that a LEFT SHIFT is Present. LAB L100.2620 2.0-7.7 X10 3/uL Normal Absolute Neut 2.8 LAB L100.2720 0.83-4.51 X10 3/ul Normal Absolute Lymph 1.39 Performed By: #### L100.0100 #### [facility] [address] [place], [address] COMPREHENSIVE METABOLIC Collected: 05/03/2018 Status: F Source: [place] [place] 11:32 AM [facility] REPOSITORY Order Comment: Comments: TSH TYPE CODE TESTS RESULT OUT OF RANGE REFERENCE UNITS LAB L501.0100 74-106 mg/dL Normal GLU 96 Result Comment: Please note revised GLUCOSE reference range effective 2017. LAB L501.1000 7-18 mg/dL High BUN 24 LAB L501.1100 0.55-1.02 mg/dL Normal CREAT,SERUM 0.55 Result Comment: The validity of the calculated GFR AND GFRAA in patients over 70 years has not been determined. Clinical correlation is essential. LAB L501.1110 >60 mL/min Normal EST GFR 116 Result Comment: Non- GFR Calc LAB L501.1115 >60 mL/min Normal EST GFR - AA 140 Result Comment: GFR Calc LAB L501.1255 ml/min Normal Estimated CRCL 45.85 LAB L501.1300 10-20 RATIO High BUN/CRE 43.6 LAB L501.1500 6.4-8. g/dL Low 2 T PROT 5.7 LAB L501.1800 3.2-5. g/dL Low 0 ALB 2.7 LAB L501.1950 2.2-4. g/dL Normal 2 GLOB 3.0 LAB L501.2000 0.9-2. RATIO Normal 4 A/G 0.9 LAB L501.2200 8.5-10 mg/dL Low .1 CA 7.6 LAB L501.4100 15-37 U/L Normal AST 15 LAB L501.4305 45-117 U/L Normal ALK P 54 LAB L501.4405 13-56 U/L Normal ALT 20 LAB L501.4600 0.20-1 mg/dL Normal .00 T BILI 0.50 LAB L501.5300 136-14 mmol/L Normal 5 NA 144 LAB L501.5600 3.5-5. mmol/L Normal 1 K 4.0 LAB L501.5900 98-107 mmol/L High CL 111 LAB L501.6100 21.0-3 mmol/L Normal 2.0 CO2 27.0 LAB L501.6200 5-15 Normal GAP 6 Performed By: #### L500.4050, L501.9520 #### [facility] [address] [place], [address] THYROID STIM HORMONE Collected: 05/03/2018 Status: F Source: [facility] (T[place]) 11:32 AM [facility] REPOSITORY Order Comment: Comments: TSH TYPE CODE TESTS RESULT OUT OF RANGE REFERENCE UNITS LAB L501.9520 0.358-3.74 uIU/mL Normal TSH 1.47 Performed By: #### L500.4050, L501.9520 #### [facility] [address] [place], [address] VITAMIN B12 Collected: 03/10/2018 Status: F Source: [place] 2:51 PM [facility] REPOSITORY TYPE CODE TESTS RESULT OUT OF REFERENCE UNITS RANGE LAB L503.0105 211-911 pg/mL High Vitamin B12 > 2000 Performed By: #### L503.0105 #### [facility] [address] [place], [address] CBC W/DIFF, AUTOMATED Collected: 02/08/2018 Status: F Source: [place] 3:11 PM [facility] REPOSITORY TYPE CODE TESTS RESULT OUT OF RANGE REFERENCE UNITS LAB L100.1000 4.4-11.0 K/mm3 Normal WBC 5.9 LAB L100.1200 4.2-5.4 M/mm3 Normal RBC 4.20 LAB L100.1300 12.0-15.0 g/dl Normal HGB 12.6 LAB L100.1400 37-47 % Normal HCT 40.4 LAB L100.1500 81-99 fL Normal MCV 96.2 LAB L100.1600 27.0-32.0 pg Normal MCH 30.0 LAB L100.1700 32-36 g/gl Low MCHC 31.2 LAB L100.1810 11.6-14.6 % Normal RDW CV 13.6 LAB L100.1820 35.1-43.9 fl High RDW SD 47.8 LAB L100.1900 150-450 K/mm3 Normal PLT 305 LAB L100.2000 6.2-12.0 fl Normal MPV 9.7 LAB L100.2100 47-70 % Normal NEUT% 61.0 LAB L100.2200 19-41 % Normal LY% 28.0 LAB L100.2300 0-10 % Normal MONO% 9.5 LAB L100.2400 0-5 % Normal EO% 1.0 LAB L100.2500 0-1 % Normal BASO% 0.3 LAB L100.2550 0.0-0.9 % Normal IM GRAN % 0.200 Result Comment: IG% - Immature Granulocytes (promyelocytes, myelocytes and metamyelocytes) > 1% indicates that a LEFT SHIFT is Present. LAB L100.2620 2.0-7.7 X10 3/uL Normal Absolute Neut 3.6 LAB L100.2720 0.83-4.51 X10 3/ul Normal Absolute Lymph 1.66 Performed By: #### L100.0100 #### [facility] [address] [place], [address] COMPREHENSIVE METABOLIC Collected: 02/08/2018 Status: F Source: [facility] 3:11 PM [facility] REPOSITORY TYPE CODE TESTS RESULT OUT OF RANGE REFERENCE UNITS LAB L501.0100 74-106 mg/dL Normal GLU 96 Result Comment: Please note revised GLUCOSE reference range effective 2017. LAB L501.1000 7-18 mg/dL Normal BUN 16 LAB L501.1100 0.55-1.02 mg/dL Normal CREAT,SERUM 0.83 Result Comment: The validity of the calculated GFR AND GFRAA in patients over 70 years has not been determined. Clinical correlation is essential. LAB L501.1110 >60 mL/min Normal EST GFR 72 Result Comment: Non- GFR Calc LAB L501.1115 >60 mL/min Normal EST GFR - AA 87 Result Comment: GFR Calc LAB L501.1300 10-20 RATIO Normal BUN/CRE 19.3 LAB L501.1500 6.4-8.2 g/dL T Normal PROT 6.7 LAB L501.1800 3.2-5.0 g/dL Low ALB 3.1 LAB L501.1950 2.2-4.2 g/dL Normal GLOB 3.6 LAB L501.2000 0.9-2.4 RATIO Normal A/G 0.9 LAB L501.2200 8.5-10.1 mg/dL CA Normal 8.6 LAB L501.4100 15-37 U/L Normal AST 19 LAB L501.4305 45-117 U/L Normal ALK P 66 LAB L501.4405 13-56 U/L Normal ALT 22 LAB L501.4600 0.20-1.00 mg/dL T Normal BILI 0.30 LAB L501.5300 136-145 mmol/L NA Normal 144 LAB L501.5600 3.5-5.1 mmol/L K Normal 3.8 LAB L501.5900 98-107 mmol/L High CL 110 LAB L501.6100 21.0-32.0 mmol/L Normal CO2 26.0 LAB L501.6200 5-15 Normal GAP 8 Performed By: #### L500.4050 #### [facility] [address] [place], [address] OPERATIVE REPORT Observed: 01/25/2018 Status: F Source: [place] 12:57 PM [facility] REPOSITORY [facility] Medical Records Department [address] [place] [address] Operative Report 01/25/18 1254 MR#: [id number] Acct: [id number] Name: FELIX WILD Rep #: [id number] : 1950 67 From: Vaishnavi Dietz MD PCP: Aislinn Espinal NP Status: [place] [facility] [place]: [place] [address] Problem List (1) Urinary tract infection Status: Acute Report of Operation Date of Procedure: 01/25/18 Pre-Operative Diagnosis: urinary tract infection, pelvic pain Post-Operative Diagnosis: same and rectocele Surgery/Procedure Performed:: cystoscopy and pelvic exam under anesthesia Description of Surgical Findings:: normal cystoscopy. very short anterior vaginal wall. grade 3 rectocele. atrophy. vault installer: Vaishnavi Dietz Type of Anesthesia:: MAC Specimen's removed: none Estimated Blood Loss (mL): 1cc Description of Procedure: The patient is a 67-year-old female who had blood questioning from the urine and was treated like a urinary tract infection. She continues to have pelvic discomfort and presents for a cystoscopy with pelvic examination under anesthesia for further evaluation. All risks benefits and alternatives were discussed preoperatively and she agreed to proceed. Patient was taken to the operating room and placed on the operating room table anesthesia monitored the head neck area IV access and vital signs throughout the case. Once anesthesia was probably administered patient was placed in dorsal lithotomy position was prepped and draped in usual sterile fashion. A cystourethroscopy was then performed. The bladder mucosa and urethral mucosa in its entirety were examined. There are no masses, areas of erythema, ulcerations or foreign body identified. The ureteral orifices are located on the area of the trigone in correct anatomic location. The patient's bladder was emptied and attention was turned towards the vagina. There is a grade 3 rectocele present. The cervix is located very anteriorly and there is a very very short anterior vaginal wall. There is moderate vaginal mucosal atrophy present. The patient was then awakened and taken to the recovery room in good condition. There were no complications during this procedure. - Complications none - Admit VTE Documentation VTE Present on Admission: Yes VTE Mechan Device Prophylaxis: SCD's VTE Pharm Prophylaxis ordered?: No Reason prophylaxis not ordered:: Treatment Not Indicated 01/25/18 1257 <Electronically signed by Vaishnavi Dietz MD> Date Vaishnavi Dietz MD CC: Aislinn Espinal NP; Vaishnavi Dietz MD Signed DISCHARGE INSTRUCTION Observed: 01/25/2018 Status: F Source: [place] 12:30 PM [facility] REPOSITORY [facility] Medical Records Department [address] [place] [address] Instructions for Home/Discharge Instructions 01/25/18 1228 MR#: [id number] Acct: [id number] Name: FELIX WILD Rep #: [id number] : 1950 67 From: Vaishnavi Dietz MD PCP: Aislinn Espinal NP Status: REG SDC Discharge Diet: No Restrictions Discharge Activity: Return to Normal Activity May resume sexual activity in: No Restrictions Call your doctor if you observe: Fever of 101 or Higher, Inability to urinate, Inability to have a bowel movement, Shortness of breath, Chest pain, Calf discomfort, Uncontrolled pain Allergies/Adverse Reactions: Allergies pentazocine Allergy (Verified 01/19/18 12:33) Unknown pentazocine lactate [From Talwin] Allergy (Verified 01/19/18 12:33) Unknown metoclopramide Adverse Reaction (Verified 01/19/18 12:33) Other HOT SWEATY Medications to take at Discharge Albuterol Inhaler [Ventolin Hfa] 1 - 2 puff INHALATION Q4H PRN PRN 03/21/13 Co Q10 200 [Co Q-10] 200 mg PO DAILY 03/21/13 Fluoxetine [Prozac] 40 mg PO DAILY 03/21/13 traZODone [Desyrel] 50 mg PO PRN PRN 03/21/13 Fluticasone/Salmeterol [Advair 100/50 Diskus] 1 puff INHALATION BID 05/23/13 Multivitamins,Therapeutic [Multivitamin] 1 tab PO DAILY 05/23/13 Triamcinolone Acetonide [Nasacort Aq Nasal [place]] 2 spray NASAL DAILY PRN 05/23/13 Levocarnitine 4 tab PO Q6H 03/17/16 Amlodipine [Norvasc] 5 mg PO DAILY 04/28/16 CycloSPORINE Ophthalmic [Restasis Ophthalmic] 1 drop EACH EYE BID 05/19/16 Cyclobenzaprine [Flexeril] 5 mg PO TID PRN PRN 01/19/18 Sulfasalazine [Azulfidine] 500 mg PO DAILY 01/19/18 Sulindac 150 mg PO BID 01/19/18 traMADol [Ultram] 50 mg PO Q6H PRN PRN 01/19/18 Primary Care Physician: Aislinn Espinal [Primary Care Provider] - Test Results: Test results from this visit will be discussed in further detail at your follow-up appointment, if applicable. Please Follow Up With: Vaishnavi Dietz MD - 1-2 weeks 01/25/18 1230 <Electronically signed by Vaishnavi Dietz MD> Date Vaishnavi Dietz MD CC: Aislinn Espinal [place] URINALYSIS, COMPLETE Collected: 01/18/2018 Status: F Source: [place] 2:47 PM [facility] REPOSITORY Order Comment: How was Urine Obtained? CLEAN CATCH TYPE CODE TESTS RESULT OUT OF RANGE REFERENCE UNITS LAB L400.3000 Yellow Normal COLOR SEE COMMENT BELOW Result Comment: Visual Urine Color: GREEN LAB L400.3050 Clear Normal CLARITY Clear LAB L400.3200 Normal mg/dl Normal GLUCOSE, UR Normal LAB L400.3300 Negative mg/dL Normal BILIRUBIN URINE Negative LAB L400.3400 Negative mg/dl High 5 KETONE UR LAB L400.3465 1.002-1.030 Normal SP.GR. DIPSTX 1.025 LAB L400.3550 5.0 - 8.0 pH UR Normal 5.0 LAB L400.3600 Negative mg/dl High PROT 15 DIPSTX LAB L400.3700 Normal mg/dl Normal UROBILI Normal LAB L400.3750 Negative Normal NITRITE UR Negative LAB L400.3780 Negative /ul High 10 OCCULT BLOOD-UR LAB L400.3800 Negative /ul LEUK Normal ESTERASE Negative LAB L400.4050 0-5 /hpf WBC 0 Normal SEEN LAB L400.4100 0-5 /hpf 0 Normal RBC-UA SEEN LAB L400.4150 5-10 /hpf SQUAM Normal EPI 0-5 SEEN LAB L400.4300 None Seen /hpf 0 Normal BACTERIA SEEN LAB L400.4350 <or=2+ /hpf 0 Normal MUCUS, URINE SEEN Performed By: #### L400.0001 #### [facility] [address] [place], [place], [address] Observed: 01/18/2018 Status: F Source: [place] CULTURE, URINE 2:47 PM [facility] REPOSITORY Urine Culture ORGANISM 1: Mixed Gram Pos AND Gram Neg Org [place] Count 50,000-80,000 MIX CULTURE Mixed contaminants. Submit a new specimen if indicated. Performed By: #### M100.0650 #### [facility] [address] [place], [address] KIDNEY AND BLADDER Observed: 01/17/2018 Status: F Source: [place] 1:57 PM [facility] Imaging Services [address] [place] [address] Kidney and Bladder MR#: [id number] Acct: [id number] Name: FELIX WILD Rep #: [id number] : 1950 F 67 From: Tee Weems PCP: Aislinn Espinal NP Status: REG CLI Study: Kidney and Bladder Date of Exam: 01/17/18 Exam# [id number] Ordering Dr: Vaishnavi Dietz MD STUDY: RENAL ULTRASOUND - COMPLETE REASON FOR EXAM: Female, 67 years old. Urinary tract infection. TECHNIQUE: Ultrasound evaluation of the kidneys was performed with real-time and static sherman-scale imaging. COMPARISON: CT abdomen and pelvis April 14, 2009. FINDINGS: RIGHT [...] There is no right hydronephrosis. DISTAL RIGHT URETER: There is non-visualization of the distal right [...] There is no demonstrated left ureterovesical junction calculus. There is a visualized left ureteral jet. BLADDER: The distended urinary bladder has a volume of 73 ml. The empty urinary bladder has a volume of 20 ml. There is a normal wall thickness of the distended urinary bladder. Bladder wall measures 4- 5 mm. There is no demonstrated mass within the urinary bladder. There are no demonstrated bladder calculi. US/Kidney and Bladder IMPRESSION: Normal ultrasound of the kidneys and urinary bladder. No significant postvoid bladder residual. Postvoid bladder residual is 20 ml. Bladder wall thickness at the upper limits of normal. Electronically Signed: Tee Weems MD at 1:10 EDT , Service support , CC: Aislinn Espinal NP; Vaishnavi Dietz MD Gas Brazer: Signed TRANSVAGINAL Observed: 12/29/2017 Status: F Source: [place] NON- 1:42 PM [facility] REPOSITORY [facility] Imaging Services [address] [place] [address] Transvaginal Non- MR#: [id number] Acct: [id number] Name: FELIX WILD Rep #: [id number] : 1950 F 67 From: Jacky Hanson MD PCP: Aislinn Espinal NP Status: REG CLI Study: Transvaginal Non- Date of Exam: 12/29/17 Exam# [id number] Ordering Dr: Vaishnavi Dietz MD STUDY: ULTRASOUND TRANSVAGINAL CLINICAL: Female, 67 years old. Postmenopausal bleeding and spotting. TECHNIQUE: Transvaginal pelvic ultrasound. COMPARISON: CT abdomen and pelvis 03/16/2009 FINDINGS: The uterus measures 5.6 x 3.7 x 2.4 cm. Normal uterine cervix. The endometrium measures 4 mm in thickness, and is unremarkable in echotexture. There is no demonstrated endometrial mass. There is no myometrial mass. The [...] There is no fluid in the cul-de-sac. US/Transvaginal Non- IMPRESSION: There is no significant thickening or abnormal echotexture of the endometrium or any significant abnormality of the myometrium. The right ovary is not well seen. Left ovary appears normal. Electronically Signed: Jacky Hanson, at 15:49 EDT Tel , Service support , CC: Aislinn Espinal NP; Vaishnavi Dietz MD Gas Brazer: Signed DOWNTIME REPORT Observed: 12/09/2017 Status: F Source: [place] 12:10 PM [facility] Medical Records Department [address] [place] [address] Downtime Report MR#: [id number] Acct: [id number] Name: SCOTTFELIX Thapa Rep #: [id number] : 1950 67 From: Elmer Braden PCP: Aislinn Espinal NP Status: REG CLI This patient was seen during an EMR downtime November 22, 2017 - November 29, 2017. This patient may have a combination of paper and electronic documentation or all paper documentation. All documentation is viewable within the e-chart portion of [employer] for each patient visit. DOWNTIME REPORT Observed: 12/09/2017 Status: F Source: [place] 12:09 PM [facility] Medical Records Department [address] [place] [address] Downtime Report MR#: [id number] Acct: [id number] Name: FELIX WILD Rep #: [id number] : 1950 67 From: Elmer Braden PCP: Aislinn Espinal NP Status: REG CLI This patient was seen during an EMR downtime November 22, 2017 - November 29, 2017. This patient may have a combination of paper and electronic documentation or all paper documentation. All documentation is viewable within the e-chart portion of [employer] for each patient visit. FOOT MIN 3 VIEWS Observed: 12/03/2017 Status: F Source: [place] 12:37 PM [facility] REPOSITORY [facility] Imaging Services [address] [place] [address] Foot min 3 Views MR#: [id number] Acct: [id number] Name: FELIX WILD Rep #: [id number] : 1950 F 67 From: Yahir Wolfe MD PCP: Aislinn Espinal NP Status: REG CLI Study: Foot min 3 Views Date of Exam: 12/03/17 Exam# [id number] Ordering Dr: Aislinn Espinal STUDY: X-RAY - LEFT FOOT CLINICAL: Female, 67 years old. Pain. TECHNIQUE: 3 view(s) of the foot. COMPARISON: None. FINDINGS: Normal talus, calcaneus, and tarsal bones. Normal visualized subtalar, talonavicular, calcaneocuboid, tarsal and tarsometatarsal articulations. Normal metatarsi. Normal metatarsophalangeal joint of the great toe. Normal tibial and fibular sesamoid bones. Normal interphalangeal joint of the great toe. Normal phalanges of the great toe. Normal second through fifth metatarsophalangeal joints. Normal interphalangeal joints and phalanges of the lesser toes. There is non-specific soft tissue swelling of the foot. There is no demonstrated fracture. RAD/Foot min 3 Views IMPRESSION: Soft tissue swelling. No fracture or dislocation is seen. Electronically Signed: Yahir Wolfe MD at 15:12 EDT , Service support , CC: Aislinn Espinal NP Gas Brazer: Signed PROGRESS Observed: 12/01/2017 Status: COMPLETED Source: [place] 3:16 PM [facility] REPOSITORY HNO ID: [id number] Author: Jennifer Izquierdo Service: (none) Author Type: Physician Type: Progress Notes Filed: 12/02/2017 10:00 AM Note Text: S: Patient reports that she had more severe muscle pain late last week (01/28) and was worried about recurrence of rhabdomylolysis. This was worse at night and with more activities. Her feet would feel like they were on fire. She was having trouble walking due to pain. Recheck of CK was normal. She was given 1L NS as well. She was somewhat better for a coupel of days but now she still has more pain than usual. Holding up her arms for driving is painful - finger pain. Today her pain is 3/10. She wonders if there was an error with mixing medications as the infusion center staff and location have changed. She thinks the IV NS made her think more clearly. She has used ultram which has been helpful. She still feels that she still gets improvement on days that she has carnitine infusions, though she did not get better last week. She did feel better after her infusion yesterday. Her bladder has been a problem. She is almost totally incontinent and this is worse with certain leg positions or ways of stepping. There is concern for incomplete emptying and she was ron Bermudez to address this. She was been seen by PCP and application manager and has referred to urology but has not seen anyone yet. Surgery has been discussed. Back pain is an ongoing problem. She has had PT and injections in the past for sciatica. She felt the injections were helpful - last in 2014. O: BP 155/68 Pulse (!) 59 Resp 18 Ht 162.6 cm (5' 4) Wt 90.3 kg (199 lb) BMI 34.16 kg/m? MS: alert and responsive, language intact CN: EOMI, V1-V3 intact bilaterally, face symmetrical, hearing grossly intact bilaterally Motor: 4+/5 HF and deltoids, 4-/5 infraspinatus bilaterally, otherwise 5/5 throughout all muscle groups, nl tone and bulk, able to arise from a chair without using hands Sensory: intact to LT Reflexes: 2+ bilateral biceps, triceps, brachioradialis, 1+ knees, and absent ankles; no crossed adductors; no Ma's or Troemner's bilaterally Cerebellar: FTN, HTS, and HALIE intact bilaterally Gait: antalgic but intact including toe and heel walking, moderate difficulty with tandem gait, Romberg negative A/P: Felix Wild is a 67 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 She feels that overall her symptoms have been manageable though she had troublesome pain symptoms starting last week. She feels she gets benefit from carnitine infusions. Will continue carnitine IV two infusions a day on two days a week. Will add 1L NS to AM infusion to see if this improves her symptoms. She will follow up with rheumatology about her small joint pains. Follow up in 6 months. Jennifer Izquierdo MD CNOV Observed: 12/01/2017 Status: COMPLETED Source: [place] 2:40 PM [facility] REPOSITORY Office Visit (NENMMN) FELIX WILD ([id number]) 1950 F Date Time Provider Department 12/01/17 2:40 PM JENNIFER IZQUIERDO During your visit today, we recorded the following information about you: Pulse Respiration Blood pressure Weight 59/minute 18/minute 155/68 90.3 kg Height 1.626 m Jennifer Izquierdo MD 12/02/2017 10:00 AM Signed S: Patient reports that she had more severe muscle pain late last week (01/28) and was worried about recurrence of rhabdomylolysis. This was worse at night and with more activities. Her feet would feel like they were on fire. She was having trouble walking due to pain. Recheck of CK was normal. She was given 1L NS as well. She was somewhat better for a coupel of days but now she still has more pain than usual. Holding up her arms for driving is painful - finger pain. Today her pain is 3/10. She wonders if there was an error with mixing medications as the infusion center staff and location have changed. She thinks the IV NS made her think more clearly. She has used ultram which has been helpful. She still feels that she still gets improvement on days that she has carnitine infusions, though she did not get better last week. She did feel better after her infusion yesterday. Her bladder has been a problem. She is almost totally incontinent and this is worse with certain leg positions or ways of stepping. There is concern for incomplete emptying and she was givne Markro to address this. She was been seen by PCP and application manager and has referred to urology but has not seen anyone yet. Surgery has been discussed. Back pain is an ongoing problem. She has had PT and injections in the past for sciatica. She felt the injections were helpful - last in 2014. O: BP 155/68 Pulse (!) 59 Resp 18 Ht 162.6 cm (5' 4) Wt 90.3 kg (199 lb) BMI 34.16 kg/m? MS: alert and responsive, language intact CN: EOMI, V1-V3 intact bilaterally, face symmetrical, hearing grossly intact bilaterally Motor: 4+/5 HF and deltoids, 4-/5 infraspinatus bilaterally, otherwise 5/5 throughout all muscle groups, nl tone and bulk, able to arise from a chair without using hands Sensory: intact to LT Reflexes: 2+ bilateral biceps, triceps, brachioradialis, 1+ knees, and absent ankles; no crossed adductors; no Ma's or Troemner's bilaterally Cerebellar: FTN, HTS, and HALIE intact bilaterally Gait: antalgic but intact including toe and heel walking, moderate difficulty with tandem gait, Romberg negative A/P: Felix Wild is a 67 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 She feels that overall her symptoms have been manageable though she had troublesome pain symptoms starting last week. She feels she gets benefit from carnitine infusions. Will continue carnitine IV two infusions a day on two days a week. Will add 1L NS to AM infusion to see if this improves her symptoms. She will follow up with rheumatology about her small joint pains. Follow up in 6 months. Jennifer Izquierdo MD Referring Provider: SELF [200] Allergies As of Date: 12/01/2017 Noted Allergy Reaction METOCLOPRAMIDE 09/11/2002 Comments: regtabby, elvira CROOKS (PENTAZOCINE) 03/13/2004 14 - Other: See Comments Comments: Nervous and passed out Date Reviewed: 12/01/2017 Reviewed by: Jennifer Izquierdo - Fully Assessed Reason for Visit: Established Patient [175] Primary Visit Diagnosis:Muscle carnitine deficiency (HCC) [E71.40] Prescriptions as of 12/01/2017 Sig: DEEP BLUE RELIEF TOPICAL Apply to affected area. FLUOXETINE 20 MG CAPSULE Take 1 capsule by mouth once * AMLODIPINE ORAL Take by mouth. LEVOCARNITINE 330 MG TABLET take 3 tablets by mouth four * ULTRAM 50 MG TABLET Take one tablet by mouth up t* TRAZODONE 50 MG TABLET Take 1 tablet by mouth at bed* CYCLOBENZAPRINE 5 MG TABLET Take 1 tablet by mouth three * SULFASALAZINE 500 MG TABLET Take 2 tablets by mouth twice* CHOLECALCIFEROL (VITAMIN D3) * Take 1 capsule by mouth once * COENZYME J88-RNOTGVM E 100 MG* Take by mouth. FLUTICASONE 100 MCG-SALMETERO* Inhale 1 Puff as instructed t* MULTIVITAMIN TABLET Take one(1) tablet daily. ALIGN 4 MG CAPSULE Take one(1) tablet daily. SULINDAC 150 MG TABLET Take one(1) tablet two(2) cherry* ALBUTEROL SULFATE HFA 90 MCG/* Use 2 puffs every 4 hours as * Problem List As Of Date 12/01/2017 Noted Resolved Myalgia and myositis, unspecified [SLW7662] INVALID FOR*03/11/2016 ANXIETY STATE NOS [F41.1] INVALID [...] SYNDROME [M35.00] IMPAIRED FASTING GLUCOSE [R73.01] INVALID FOR* Abnormal X-Ray Examination [R93.8] INVALID FOR* Diverticulosis [K57.90] INVALID FOR* Gastritis/Duodenitis [K29.70, K29.90] INVALID FOR* Carnitine deficiency (HCC) [E71.40] INVALID FOR*03/11/2016 Primary carnitine deficiency (HCC) [E71.41] INVALID FOR*03/11/2016 LINWOOD (obstructive sleep apnea) [G47.33] INVALID FOR* Thoracic or lumbosacral neuritis or radiculitis*INVALID FOR* Lumbago [M54.5] INVALID FOR*08/21/2014 Low back pain [M54.5] INVALID FOR* Muscle carnitine deficiency (HCC) [E71.40] INVALID FOR* Disposition: Return in about 6 months (around 06/02/2018) for carnitine deficiency. Follow-up and Disposition History Recorded Letter Text Jennifer Izquierdo MD [facility] [place] [address] [place], [place] [id number] , ext [phone] PRESCRIPTION SPECIFICS: NAME: Felix Wild DATE: 12/01/2017 ADDRESS: [address] [place] [address] PHONE: [phone] (home) : 1950 PRESCRIPTION: Carnitine IV infusion ? 1.5 gram two doses a day on Wednesday and Wednesday With first dose of the day add 1 liter of normal saline For 6 months DIAGNOSIS: (E71.40) Muscle carnitine deficiency (HCC) (primary encounter diagnosis) Jennifer Izquierdo MD Encounter Status:Closed by JENNIFER IZQUIERDO MD on 12/02/17 CPK TOTAL, CREATINE Collected: 11/26/2017 Status: F Source: [place] 2:40 PM [facility] REPOSITORY Order Comment: 48 TYPE CODE TESTS RESULT OUT OF RANGE REFERENCE UNITS LAB L501.3620 26-192 U/L Normal CPK TOTAL 68 Performed By: #### L501.3620 #### [facility] [address] [place], [address] URINALYSIS, ROUTINE Collected: 11/16/2017 Status: F Source: [place] (DIPSTICK) 11:12 AM [facility] REPOSITORY Order Comment: How was Urine Obtained? CLEAN CATCH TYPE CODE TESTS RESULT OUT OF RANGE REFERENCE UNITS LAB L400.3000 Yellow COLOR Normal Yellow LAB L400.3050 Clear Normal CLARITY Cloudy LAB L400.3200 Normal mg/dl Normal GLUCOSE, UR Normal LAB L400.3300 Negative mg/dL Normal BILIRUBIN URINE Negative LAB L400.3400 Negative mg/dl Normal KETONE UR Negative LAB L400.3465 1.002-1.030 Normal SP.GR. DIPSTX 1.025 LAB L400.3550 5.0 - 8.0 pH UR Normal 6.0 LAB L400.3600 Negative mg/dl High PROT DIPSTX 100 LAB L400.3700 Normal mg/dl Normal UROBILI Normal LAB L400.3750 Negative High NITRITE UR Positive LAB L400.3780 Negative /ul High 50 OCCULT BLOOD-UR LAB L400.3800 Negative /ul High LEUK ESTERASE 500 Performed By: #### L400.2010 #### [facility] [address] [place], [place], [address] Observed: 11/16/2017 Status: F Source: [place] CULTURE, URINE 11:12 AM [facility] REPOSITORY Urine Culture ORGANISM 1: Escherichia coli [place] Count >100,000 Escherichia coli: REACTION Amoxacillin/Clavulanic Acid $ <=2 S Ampicillin $ <=2 S Ampicillin/Sulbactam $ <=2 S Cefazolin $ <=4 S Cefepime $ <=1 S Ceftriaxone $ <=1 S Ciprofloxacin $ <=0.25 S ESBL - Ertapenim $$$ <=0.5 S Gentamicin $ <=1 S Imipenem *NF <=0.25 S Levofloxacin $ <=0.12 S Nitrofurantoin $ <=16 S Piperacillin/Tazobactam $$ <=4 S Tobramycin $ <=1 S Trimethoprim/Sulfametho $ <=20 S (NF) indicates non-formulary drug at [facility]. Approval by Infectious Disease Specialist required before non-formulary drugs may be ordered and/or dispensed. Performed By: #### M100.0650 #### [facility] [address] [place], [place], [address] CBC W/DIFF, AUTOMATED Collected: 08/12/2017 Status: F Source: [place] 10:15 AM [facility] REPOSITORY TYPE CODE TESTS RESULT OUT OF RANGE REFERENCE UNITS LAB L100.1000 4.4-11.0 K/mm3 Normal WBC 4.6 LAB L100.1200 4.2-5.4 M/mm3 Low RBC 4.11 LAB L100.1300 12.0-15.0 g/dl Normal HGB 12.9 LAB L100.1400 37-47 % Normal HCT 39.5 LAB L100.1500 81-99 fL Normal MCV 96.1 LAB L100.1600 27.0-32.0 pg Normal MCH 31.4 LAB L100.1700 32-36 g/gl Normal MCHC 32.7 LAB L100.1810 11.6-14.6 % Normal RDW CV 13.3 LAB L100.1820 35.1-43.9 fl High RDW SD 45.7 LAB L100.1900 150-450 K/mm3 Normal PLT 264 LAB L100.2000 6.2-12.0 fl Normal MPV 9.5 LAB L100.2100 47-70 % Normal NEUT% 53.4 LAB L100.2200 19-41 % Normal LY% 32.7 LAB L100.2300 0-10 % High MONO% 11.3 LAB L100.2400 0-5 % Normal EO% 2.2 LAB L100.2500 0-1 % Normal BASO% 0.4 LAB L100.2550 0.0-0.9 % Normal IM GRAN % 0.000 Result Comment: IG% - Immature Granulocytes (promyelocytes, myelocytes and metamyelocytes) > 1% indicates that a LEFT SHIFT is Present. LAB L100.2620 2.0-7.7 X10 3/uL Normal Absolute Neut 2.5 LAB L100.2720 0.83-4.51 X10 3/ul Normal Absolute Lymph 1.50 Performed By: #### L100.0100 #### [facility] [place], [address] COMPREHENSIVE METABOLIC Collected: 08/12/2017 Status: F [facility] REPOS[facility] TYPE CODE TESTS RESULT OUT OF RANGE REFERENCE UNITS LAB L501.0100 74-106 mg/dL High GLU 131 Result Comment: Fasting Glucose result greater than or equal to 126 mg/dL suggests DIABETES MELLITUS per A.D.A. criteria. Please note revised GLUCOSE reference range effective 2017. LAB L501.1000 7-18 mg/dL High BUN 19 LAB L501.1100 0.55-1.02 mg/dL Normal CREAT,SERUM 0.63 Result Comment: The validity of the calculated GFR AND GFRAA in patients over 70 years has not been determined. Clinical correlation is essential. LAB L501.1110 >60 mL/min Normal EST GFR 99 Result Comment: Non- GFR Calc LAB L501.1115 >60 mL/min Normal EST GFR - AA 120 Result Comment: GFR Calc LAB L501.1255 ml/min Normal Estimated CRCL 47.78 LAB L501.1300 10-20 RATIO High BUN/CRE 30.0 LAB L501.1500 6.4-8. g/dL Normal 2 T PROT 6.7 LAB L501.1800 3.2-5. g/dL Low 0 ALB 3.1 LAB L501.1950 2.2-4. g/dL Normal 2 GLOB 3.6 LAB L501.2000 0.9-2. RATIO Normal 4 A/G 0.9 LAB L501.2200 8.5-10 mg/dL Low .1 CA 8.1 LAB L501.4100 15-37 U/L Normal AST 15 LAB L501.4305 45-117 U/L Normal ALK P 68 LAB L501.4405 13-56 U/L Normal ALT 27 Result Comment: Please note revised ALT reference range effective 2017. LAB L501.4600 0.20-1.00 mg/dL Normal T BILI 0.60 LAB L501.5300 136-145 mmol/L Normal NA 141 LAB L501.5600 3.5-5.1 mmol/L Normal K 3.6 LAB L501.5900 98-107 mmol/L Normal CL 106 LAB L501.6100 21.0-32.0 mmol/L Normal CO2 28.0 LAB L501.6200 5-15 Normal GAP 7 Performed By: #### L500.4050 #### [facility] [place], [address] CNCO Observed: 07/09/2017 Status: COMPLETED Source: CUSHING 12:00 AM [facility] REPOSITORY Letter Text Jennifer Izquierdo MD Neurological [place] [address] [place] [address] , ext [phone] PRESCRIPTION SPECIFICS: NAME: Felix Wild DATE: 07/09/2017 ADDRESS: [address] [place] [address] PHONE: [phone] (home) : 1950 PRESCRIPTION: Heparin flush twice weekly DIAGNOSIS: (E71.40) Muscle carnitine deficiency (HCC) (primary encounter diagnosis) Jennifer Izquierdo MD CPK TOTAL, CREATINE Collected: 06/25/2017 Status: F Source: TAE KINASE 3:59 PM [facility] REPOSITORY TYPE CODE TESTS RESULT OUT OF RANGE REFERENCE UNITS LAB L501.3620 26-192 U/L Normal CPK TOTAL 55 Performed By: #### L501.3620, L501.5100 #### [facility] [address] [place], [address] GGTP Collected: 06/25/2017 Status: F Source: TAE 3:59 PM [facility] REPOSITORY TYPE CODE TESTS RESULT OUT OF RANGE REFERENCE UNITS LAB L501.5100 5-55 U/L High GGTP 140 Performed By: #### L501.3620, L501.5100 #### [facility] [address] [place], [address] CBC W/DIFF, AUTOMATED Collected: 06/24/2017 Status: F Source: TAE 9:50 AM [facility] REPOSITORY TYPE CODE TESTS RESULT OUT OF RANGE REFERENCE UNITS LAB L100.1000 4.4-11.0 K/mm3 Normal WBC 4.9 LAB L100.1200 4.2-5.4 M/mm3 Low RBC 4.16 LAB L100.1300 12.0-15.0 g/dl Normal HGB 12.8 LAB L100.1400 37-47 % Normal HCT 40.7 LAB L100.1500 81-99 fL Normal MCV 97.8 LAB L100.1600 27.0-32.0 pg Normal MCH 30.8 LAB L100.1700 32-36 g/gl Low MCHC 31.4 LAB L100.1810 11.6-14.6 % Normal RDW CV 13.5 LAB L100.1820 35.1-43.9 fl High RDW SD 47.9 LAB L100.1900 150-450 K/mm3 Normal PLT 264 LAB L100.2000 6.2-12.0 fl Normal MPV 9.9 LAB L100.2100 47-70 % Normal NEUT% 59.0 LAB L100.2200 19-41 % Normal LY% 28.3 LAB L100.2300 0-10 % High MONO% 10.1 LAB L100.2400 0-5 % Normal EO% 2.0 LAB L100.2500 0-1 % Normal BASO% 0.4 LAB L100.2550 0.0-0.9 % Normal IM GRAN % 0.200 Result Comment: IG% - Immature Granulocytes (promyelocytes, myelocytes and metamyelocytes) > 1% indicates that a LEFT SHIFT is Present. LAB L100.2620 2.0-7.7 X10 3/uL Normal Absolute Neut 2.9 LAB L100.2720 0.83-4.51 X10 3/ul Normal Absolute Lymph 1.40 Performed By: #### L100.0100 #### [facility] [address] [facility] [place], [address] COMPREHENSIVE METABOLIC Collected: 06/24/2017 Status: F Source: [facility] 9:50 AM [facility] REPOSITORY TYPE CODE TESTS RESULT OUT OF RANGE REFERENCE UNITS LAB L501.0100 70-110 mg/dL High GLU 125 Result Comment: Fasting Glucose result from 110 to <126 mg/dL suggests IMPAIRED HOMEOSTASIS per A.D.A. criteria. LAB L501.1000 7-18 mg/dL Normal BUN 17 LAB L501.1100 0.55-1.02 mg/dL Normal CREAT,SERUM 0.71 Result Comment: The validity of the calculated GFR AND GFRAA in patients over 70 years has not been determined. Clinical correlation is essential. LAB L501.1110 >60 mL/min Normal EST GFR 87 Result Comment: Non- GFR Calc LAB L501.1115 >60 mL/min Normal EST GFR - AA 106 Result Comment: GFR Calc LAB L501.1300 10-20 RATIO High BUN/CRE 24.1 LAB L501.1500 6.4-8.2 g/dL T Normal PROT 6.8 LAB L501.1800 3.4-5.0 g/dL Low ALB 3.2 Result Comment: Please note revised Albumin AND Globulin reference range effective 2017. LAB L501.1950 2.2-4.2 g/dL Normal GLOB 3.6 LAB L501.2000 0.9-2.4 RATIO Normal A/G 0.9 LAB L501.2200 8.5-10.1 mg/dL Normal CA 8.7 LAB L501.4100 15-37 U/L High AST 52 LAB L501.4305 45-117 U/L Normal ALK P 79 LAB L501.4405 12-78 U/L Normal ALT 67 LAB L501.4600 0.20-1.00 mg/dL Normal T BILI 0.70 LAB L501.5300 136-145 mmol/L Normal NA 140 LAB L501.5600 3.5-5.1 mmol/L Normal K 4.1 LAB L501.5900 98-107 mmol/L Normal CL 105 LAB L501.6100 21.0-32.0 mmol/L Normal CO2 28.0 LAB L501.6200 5-15 Normal GAP 7 Performed By: #### L500.4050 #### [facility] [address] [place], [place] [address]marcelo Rivera. [place], [place], [address] ALLERGIES ALLERGIES DATE TYPE / NAME / CODE REACTION SEVERITY SOURCE CODE 06/01/2018 Drug pentazocine Unknown Unknown [place] Allergy/41 lactate/[id number](R Community 1542561([facility]) Repository 06/01/2018 Drug pentazocine/[id number] Unknown Unknown [place] Allergy/41 83(RXNORM) Community 6906792([facility]) Repository 06/01/2018 Drug metoclopramide/F0060 Other Unknown [place] Allergy/41 07010(RXNORM) Community 8136605([facility]) Repository 03/13/2004 DRUG PENTAZOCINE OTHER: SEE C [address] [id number](SN Repository OMED CT) 09/11/2002 DRUG METOCLOPRAMIDE [address] 5113744(SN Repository OMED CT) ENCOUNTERS ENCOUNTERS ADMIT/DISCHARGE ACCOUNT ADMITTING ENCOUNTER LOCATION SOURCE NUMBER CLASS 06/07/2018 [id number] [facility] Repository 06/03/2018 [id number] [facility] Repository 06/01/2018 [id number] [facility] Repository 05/31/2018/05/31/20 [id number] Ambulatory [address] Repository 05/27/2018 [id number] [facility] ing[facility] Repository 05/24/2018 [id number] Ambulatory Building:[facility] Repository 05/24/2018 [id number] [facility] ing[facility] Repository 05/20/2018 [id number] [facility] ing[facility] Repository 05/17/2018 [id number] [facility] ing:[facility] Repository 05/13/2018 [id number] [facility] ing[facility] Repository 05/11/2018 [id number] [facility] ing:[facility]P Repository 05/10/2018 [id number] [facility] ing[facility] Repository 05/06/2018 [id number] [facility] ing:[facility]P Repository 05/03/2018 [id number] [facility] ing:[facility]P Repository 04/29/2018 [id number] [facility] ing:[facility] Repository 04/27/2018 [id number] [facility] ing:[facility] Repository 04/22/2018 [id number] Ambulatory [facility] Repository 04/19/2018 [id number] Ambulatory Tae Lyons [facility] ing:MED[facility]P Repository 04/15/2018 [id number] Ambulatory [facility]ae Tae [facility] ing:[facility]P Repository 04/13/2018 [id number] Ambulatory [place] Tae [facility] ing:MED[facility]P Repository 04/08/2018 [id number] Ambulatory [place] Tae [facility] ing:[facility] Repository 04/05/2018 [id number] Ambulatory Lyons Lyons [facility] ing:[facility]P Repository 04/01/2018 [id number] Ambulatory [place] Tae [facility] ing:[facility] Repository 03/30/2018 [id number] Ambulatory Tae Tae [facility] ing:MED[facility]P Repository 03/25/2018 [id number] Ambulatory Lyons Lyons [facility] ing:MED[facility]P Repository 03/22/2018 [id number] Ambulatory Lyons Lyons [facility] ing:MED[facility]P Repository 03/18/2018 [id number] Ambulatory Tae Tae [facility] ing:[facility]P Repository 03/15/2018 [id number] Ambulatory Lyons Lyons [facility] ing:MED[facility]P Repository 03/10/2018 [id number] Ambulatory [facility] Tae [facility] ing:[facility]P Repository 03/08/2018 [id number] Ambulatory Tae Lyons [facility] ing:MED[facility]P Repository 03/01/2018 [id number] Ambulatory Lyons Lyons [facility] ing:MED[facility]P Repository 02/25/2018 [id number] Ambulatory Tae Tae [facility] ing:MED[facility]P Repository 02/23/2018 [id number] Ambulatory Lyons Lyons [facility] ing:MED[facility]P Repository 02/18/2018 [id number] Ambulatory [facility]ae Tae [facility] ing:MED[facility]P Repository 02/15/2018 [id number] [facility] Rep[facility] 02/11/2018 [id number] [facility] Repository 02/08/2018 [id number] [facility] Repository 02/07/2018 [id number] [facility] Repository 02/02/2018 [id number] [facility] Repository 01/28/2018 [id number] Ambulatory Ly[place] [facility] ing:MEDOUTP Repository 01/25/2018/01/26/20 [id number] Ambulatory Tae Tae [address] [place] [address] HospitalBuild Hospital ing:MEDOUTP Repository 01/21/2018 [id number] Ambulatory Tae [facility] ing:MED[facility]P Repository 01/18/2018 [id number] Ambulatory Ly[place] [facility] ing:MEDOUTP Repository 01/17/2018 [id number] [facility] Repository 01/14/2018 [id number] [facility] Repository 01/11/2018 [id number] Ambulatory [facility] Tae [facility] ing:MED[facility]P Repository 01/07/2018 [id number] [facility] Repository 01/04/2018 [id number] Ambulatory Tae Lyons [facility] ing:MED[facility]P Repository 12/31/2017 [id number] [facility] Repository 12/29/2017 [id number] Ambulatory Tae Lyons [facility] ing:US Repository 12/28/2017 [id number] [facility] Repository 12/23/2017 [id number] [facility] Repository 12/21/2017 [id number] Ambulatory Tae Ly[facility] ing:MED[facility]P Repository 12/17/2017 [id number] [facility] Repository 12/14/2017 [id number] Ambulatory [place] Tae [facility] ing:MED[facility]P Repository 12/10/2017 [id number] [facility] Repository 12/07/2017 [id number] Ambulatory [place] Tae [facility] ing:MED[facility]P Repository 12/03/2017 [id number] [facility]:HPRAD Repository 12/03/2017 [id number] Ambulatory Lyons Lyons [facility] ing:MED[facility]P Repository 12/01/2017/12/02/19 [id number] Ambulatory [address] Repository 11/30/2017 [id number] Ambulatory Tae Lyons [facility] ing:MED[facility]P Repository 11/26/2017 [id number] Ambulatory [place] Tae [facility] ing:MED[facility]P Repository 11/23/2017 [id number] [facility] Repository 11/19/2017 [id number] [facility] Rep[facility] 11/16/2017 [id number] [facility] Repository 11/12/2017 [id number] Ambulatory Tae Lyons [facility] ing:MED[facility]P Repository 11/10/2017 [id number] Ambulatory Tae Lyons [facility] ing:MEDOUTP Repository 11/04/2017 [id number] Ambulatory [place] Tae [facility] ing:MED[facility]P Repository 11/02/2017 [id number] Ambulatory Tae Lyons [facility] ing:MEDOUTP Repository 10/29/2017 [id number] [facility] Repository 10/26/2017 [id number] Ambulatory Tae Lyons [facility] ing:MED[facility]P Repository 10/22/2017 [id number] Ambulatory Lyons Lyons [facility] ing:MED[facility]P Repository 10/19/2017 [id number] Ambulatory [place] Tae [facility] ing:MED[facility]P Repository 10/15/2017 [id number] Ambulatory Tae Lyons [facility] ing:MEDOUTP Repository 10/12/2017 [id number] Ambulatory Lyons Lyons [facility] ing:MEDOUTP Repository 10/08/2017 [id number] Ambulatory Tae Lyons [facility] ing:MEDOUTP Repository 10/05/2017 [id number] Ambulatory [place] Tae [facility] ing:MED[facility]P Repository 10/01/2017 [id number] Ambulatory [place] Tae [facility] ing:MEDOUTP Repository 09/28/2017 [id number] Ambulatory [facility]ae Tae [facility] ing:MED[facility]P Repository 09/28/2017 [id number] Ambulatory [place] Tae [facility] ing:MED[facility]P Repository 09/24/2017 [id number] Ambulatory Tae Tae [facility] ing:MED[facility]P Repository 09/21/2017 [id number] Ambulatory [place] Tae [facility] ing:MEDOUTP Repository 09/17/2017 [id number] Ambulatory Tae Lyons [facility] ing:MEDOUTP Repository 09/14/2017 [id number] Ambulatory Tae Lyons [facility] ing:MEDOUTP Repository 09/10/2017 [id number] Ambulatory Lyons Lyons [facility] ing:MED[facility]P Repository 09/07/2017 [id number] Ambulatory [place] Tae [facility] ing:MEDOUTP Repository 09/03/2017 [id number] Ambulatory Tae Tae [facility] ing:MEDOUTP Repository 09/01/2017 [id number] Ambulatory Tae Lyons [facility] ing:MEDOUTP Repository 08/27/2017 [id number] Ambulatory [place] Tae [facility] ing:MEDOUTP Repository 08/24/2017 [id number] Ambulatory [place] Tae [facility] ing:MED[facility]P Repository 08/20/2017 [id number] [facility] ing:[facility]P Repository 08/17/2017 [id number] [facility]ulatory [facility] ing:MED[facility]P Repository 08/13/2017 [id number] [facility]ulatory [facility] ing:MED[facility]P Repository 08/12/2017 [id number] [facility]ulatory [facility] ing:MED[facility]P Repository 07/01/2017 [id number] Ambulatory [facility] ing:MEDOUTP Repository 06/29/2017 [id number] [facility]ulatory [facility] ing:MED[facility]P Repository 06/25/2017 [id number] [facility]ulatory [facility] ing:MTLAB Repository 06/25/2017 [id number] [facility]ulatory [facility] ing:MEDOUTP Repository 06/24/2017 [id number] [facility] ing:LAB.FUTUR Repository E 06/22/2017 [id number] [facility]ulatory [facility] ing:MEDOUTP Repository 06/18/2017 [id number] [facility] ing:MED[facility]P Repository 06/17/2017 [id number] [facility] ing:MEDOUTP Repository 06/11/2017 [id number] [facility] ing:MEDOUTP Repository PAYERS PAYERS ENCOUNTER GUARANTOR PAYER SUBSCRIBER SOURCE 06/07/2018 TIGRE Thapa Primary FELIX LOBATOB: Tae [id number] JASMYN Insurance:MEDICARE [id number] [address]87[address]Gtm: (330) [facility] [phone] () [id number] Date:2018-06-03 06/07/2018 Secondary FELIX LOBATOB: Tae Insurance:ANTHEMPolic [id number] [facility] Number: [facility] [id number] Repository Date:1579-45-29[id number] [place] [address] 07298TG: 06/07/2018 Tertiary NOT GIVENUNK Tae Insurance[facility]LF [facility] Number: Effective Repository Date:2018-06-03 06/03/2018 KASH Primary FELIX J HALLDOB: [place] [id number] JASMYN Insurance[id number] A [facility] [address]Keq: (330) Number: Repository [phone] () [id number] Date:2018-05-27 06/03/2018 Secondary FELIX J HALLDOB: Tae Insurance:ANTHEMPolic [id number] Community y Number: Hospital [id number] Repository Date:6502-52-52VG [id number] [place] [address] 34517MD: 06/03/2018 Tertiary NOT GIVENUNK [place] Insurance:SELF PAY [facility] Number: Effective Repository Date:2018-05-27 06/01/2018 KASH Primary FELIX J HALLDOB: Tae [id number] JASMYN Insurance:MEDICARE [id number] [facility] A [facility] [address]Ksn: (330) Number: Repository [phone] () [id number] Date:2018-05-27 06/01/2018 Secondary FELIX J HALLDOB: [place] Insurance:ANTHEMPolic [id number] Community y Number: Hospital [id number] Repository Date:9199-57-65MZ [id number] [place] [address] 43172OS: 06/01/2018 Tertiary NOT GIVENUNK Tae Insurance:SELF PAY [facility] Number: Effective Repository Date:2018-05-27 05/27/2018 KASH Primary FELIX J HALLDOB: Tae [id number] JASMYN Insurance:MEDICARE [id number] Community Hospital A [facility] [address]Kwb: (330) Number: Repository [phone] () [id number] Date:2018-05-23 05/27/2018 Secondary FELIX Alanis HALLDOB: Tae Insurance:ANTHEMPolic [id number] Community y Number: [facility] [id number] Repository Date:4674-34-80WV [facility] [address] [address]KM: 05/27/2018 Tertiary NOT GIVENUNK Tae Insurance:SELF PAY [facility] Number: Effective Repository Date:2018-05-23 05/24/2018 Felix J HallDOB: Primary Felix J HallDOB: OHIP Practices Insurance:MedicarePol [id number] Repository Jasmyn icy Number: Nely Saeed [place] [id number] [place] [address]Qat: (474) Date:4274-92-44Dtih 077[address]Xeo: Name:[facility] [phone] (HP) (HP)Tel: (215) [phone], [place] [phone] (WP) [address]VQ: 05/24/2018 Secondary Felixkayli WildDOB: OHIP Practices Insurance:[place]/Supp [id number] Repository lementPolicy Number: Nely Vines [id number] [place], [place] Date:4183-05-11Sptc 979[address]Jbm: Name:[address] [address]jqiez, [place] 30 (HP) [id number]: 05/24/2018 Tertiary Felix WildDOB: OHIP Practices Insurance:AultcarePol [id number] Repository icy Number: Nely Vines [id number] RdSadena [facility] centerj[place], [place] [address]Effective [address]Fhd: Date:2008-02-20 - ~(3 5359-23-87Pkyl 30 (HP) Name:[address], [place] [id number]: 05/24/2018 Tertiary Tigre OHIP Practices Insurance:[place] [id number] Repository /[facility] Number: Jasmyn [id number] [place], [place] Date: - [address]Llm: [phone] [phone] () Name:[address] [place] [address] [id number]: 05/24/2018 TIGRE Thapa Primary FELIX J SCOTTDOB: Tae [id number] JASMYN Insurance:MEDICARE [id number] [facility] A [facility] 140[address]Dyn: (330) Number: Repository [phone] () [id number] Date:2018-05-23 05/24/2018 Secondary FELIX J SCOTTDOB: [facility]ae [facility] [id number] Community y Number: Hospital [id number] Repository Date:6286-07-15BY [address] [place] [address] 51803LE: 05/24/2018 Tertiary NOT GIVENUNK [place] Insurance:SELF PAY [facility] Number: Effective Repository Date:2018-05-23 05/20/2018 TIGRE Thapa Primary FELIX J HALLDOB: Tae [id number] JASMYN Insurance:MEDICARE [id number] Community Hospital A [facility] 236[address]Vqt: (330) Number: Repository [phone] () [id number] Date:2018-05-13 05/20/2018 Secondary FELIX J HALLDOB: [facility]ae [facility] [id number] Community y Number: Hospital [id number] Repository Date:5110-73-01PG [address] [place] [address] 99091QP: 05/20/2018 Tertiary NOT GIVENUNK [place] Insurance:SELF PAY [facility] Number: Effective Repository Date:2018-05-13 05/17/2018 TIGRE Thapa Primary FELIX J HALLDOB: Tae [id number] JASMYN Insurance:MEDICARE [id number] [address]Hqh: (330) Number: Repository [phone] () [id number] Date:2018-05-13 05/17/2018 Secondary FELIX J HALLDOB: [place] Insurance:ANTHEMPolic [id number] Community y Number: Hospital [id number] Repository Date:3016-76-73EY [address] [place] [address] 55399IV: 05/17/2018 Tertiary NOT GIVENUNK [place] Insurance:SELF PAY [facility] Number: Effective Repository Date:2018-05-13 05/13/2018 KASH Primary FELIX J HALLDOB: Tae [id number] JASMYN Insurance:MEDICARE [id number] [facility] 318[address]Svs: (330) Number: Repository [phone] () [id number] Date:2018-05-10 05/13/2018 Secondary FELIX J HALLDOB: Tae Insurance:ANTHEMPolic [id number] Community y Number: Hospital [id number] Repository Date:5135-60-81WA [address] [place] [address] 69023JB: 05/13/2018 Tertiary NOT GIVENUNK Tae Insurance:SELF PAY [facility] Number: Effective Repository Date:2018-05-10 05/11/2018 TIGRE Thapa Primary FELIX J HALLDOB: Tae [id number] JASMYN Insurance:MEDICARE [id number] [facility] 15692Xbw: (330) Number: Repository [phone] () [id number] Date:2018-05-10 05/11/2018 Secondary FELIX J HALLDOB: [place] Insurance:ANTHEMPolic [id number] Community y Number: Hospital [id number] Repository Date:0081-15-61DQ [address] [place] [address] 01437ZW: 05/11/2018 Tertiary NOT GIVENUNK Tae Insurance:SELF PAY [facility] Number: Effective Repository Date:2018-05-10 05/10/2018 KASH Primary FELIX J HALLDOB: Tae [id number] JASMYN Insurance:MEDICARE [id number] Community Hospital A [facility] [address]Dtu: (330) Number: Repository [phone] () [id number] Date:2018-05-03 05/10/2018 Secondary FELIX J HALLDOB: [place] Insurance:ANTHEMPolic [id number] Community y Number: Hospital [id number] Repository Date:6145-63-59TN [address] [place] [address] 97939TJ: 05/10/2018 Tertiary NOT GIVENUNK [place] Insurance:SELF PAY [facility] Number: Effective Repository Date:2018-05-03 05/06/2018 TIGRE Thapa Primary FELIX J HALLDOB: [place] [id number] JASMYN Insurance:MEDICARE [id number] Community Hospital A [facility] 288[address]Van: (330) Number: Repository [phone] () [id number] Date:2018-04-29 05/06/2018 Secondary FELIX J HALLDOB: Lyons Insurance:ANTHEMPolic [id number] Community y Number: Hospital [id number] Repository Date:9462-91-72EV [id number] [place] [address] 32878TN: 05/06/2018 Tertiary NOT GIVENUNK Ly[place] Insurance:SELF PAY [facility] Number: Effective Repository Date:2018-04-29 05/03/2018 KASH Primary FELIX J HALLDOB: Lyons [id number] JASMYN Insurance:MEDICARE [id number] 67932Fpp: (330) Number: Repository [phone] () [id number] Date:2018-04-29 05/03/2018 Secondary FELIX J HALLDOB: [place] Insurance:ANTHEMPolic [id number] Community y Number: Hospital [id number] Repository Date:7438-98-20[id number] [place] [address] 21494TC: 05/03/2018 Tertiary NOT GIVENUNK Tae Insurance:SELF PAY [facility] Number: Effective Repository Date:2018-04-29 04/29/2018 TIGRE Thapa Primary FELIX Thapa HALLDOB: Tae [id number] JASMYN Insurance:MEDICARE [id number] [place], [place] PART A [facility] 89300Koa: (330) Number: Repository [phone] () [id number] Date:2018-04-26 04/29/2018 Secondary FELIX J HALLDOB: Tae Insurance:ANTHEMPolic [id number] Community y Number: Hospital [id number] Repository Date:1975-31-41MJ [id number] [place] [address] 08406BM: 04/29/2018 Tertiary NOT GIVENUNK [place] Insurance:SELF PAY [facility] Number: Effective Repository Date:2018-04-26 04/27/2018 TIGRE Thapa Primary FELIX J HALLDOB: Lyons [id number] JASMYN Insurance:MEDICARE [id number] 93566Sra: (330) Number: Repository [phone] () [id number] Date:2018-04-26 04/27/2018 Secondary FELIX Alanis WILDDOB: Lyons Insurance:ANTHEMPolic [id number] Community y Number: Hospital [id number] Repository Date:6887-31-19TD [address] [place] [address] 81069MM: 04/27/2018 Tertiary NOT GIVENUNK [place] Insurance:SELF PAY [facility] Number: Effective Repository Date:2018-04-26 04/22/2018 TIGRE Thapa Primary FELIX Thapa HALLDOB: Lyons [id number] JASMYN Insurance:MEDICARE [id number] Community Hospital [facility] 92016Ftx: (330) Number: Repository [phone] () [id number] Date:2018-04-13 04/22/2018 Secondary FELIX J SCOTTDOB: Tae Insurance:ANTHEMPolic [id number] Community y Number: Hospital [id number] Repository Date:1425-34-23FL [address] [place] [address] 33424XF: 04/22/2018 Tertiary NOT GIVENUNK Tae Insurance:SELF PAY [facility] Number: Effective Repository Date:2018-04-13 04/19/2018 TIGRE Thapa Primary FELIX WILDDOB: Lyons [id number] JASMYN Insurance:MEDICARE [id number] [facility] 11712Fmp: (330) Number: Repository [phone] () [id number] Date:2018-04-13 04/19/2018 Secondary FELIX WILDDOB: Tae Insurance:ANTHEMPolic [id number] Community y Number: Hospital [id number] Repository Date:7077-54-08NG [address] [place] [address] 79445DN: 04/19/2018 Tertiary NOT GIVENUNK [place] Insurance:SELF PAY [facility] Number: Effective Repository Date:2018-04-13 04/15/2018 TIGRE Thapa Primary FELIX WILDDOB: Tae [id number] JASMYN Insurance:MEDICARE [id number] [facility] 65245Abi: (330) Number: Repository [phone] () [id number] Date:2018-04-08 04/15/2018 Secondary FELIX J SCOTTDOB: Tae Insurance:ANTHEMPolic [id number] Community y Number: Hospital [id number] Repository Date:5290-74-30XW [id number] [place] [address] 11867LJ: 04/15/2018 Tertiary NOT GIVENUNK Tae Insurance:SELF PAY [facility] Number: Effective Repository Date:2018-04-08 04/13/2018 TIGRE Thapa Primary FELIX WILDDOB: Tae [id number] JASMYN Insurance:MEDICARE [id number] 36757Zqu: (330) Number: Repository [phone] () [id number] Date:2018-04-08 04/13/2018 Secondary FELIX J HALLDOB: Ly[place] Insurance:ANTHEMPolic [id number] Community y Number: Hospital [id number] Repository Date:2248-20-49AO [address] 523[address]GR: 04/13/2018 Tertiary NOT GIVENUNK Tae Insurance:SELF PAY [facility] Number: Effective Repository Date:2018-04-08 04/08/2018 KASH Primary FELIX J HALLDOB: Lyons [id number] JASMYN Insurance:MEDICARE [id number] [facility]vue Hospital 67357Jci: (330) Number: Repository [phone] () [id number] Date:2018-04-01 04/08/2018 Secondary FELIX J HALLDOB: Ly[place] Insurance:ANTHEMPolic [id number] Community y Number: Hospital [id number] Repository Date:8557-42-64TJ [address] [place] [address] 29608PT: 04/08/2018 Tertiary NOT GIVENUNK Tae Insurance:SELF PAY [facility] Number: Effective Repository Date:2018-04-01 04/05/2018 KASH Primary FELIX J HALLDOB: Ly[place] [id number] JASMYN Insurance:MEDICARE [id number] [facility] Hospital 92474Bqq: (330) Number: Repository [phone] () [id number] Date:2018-04-01 04/05/2018 Secondary FELIX J HALLDOB: Ly[place] Insurance:ANTHEMPolic [id number] Community y Number: Hospital [id number] Repository Date:5328-56-20[id number] [place] [address] 64131OV: 04/05/2018 Tertiary NOT GIVENUNK Tae Insurance:SELF PAY [facility] Number: Effective Repository Date:2018-04-01 04/01/2018 TIGRE Thapa Primary FELIX J HALLDOB: Ly[place] [id number] JASMYN Insurance:MEDICARE [id number] [facility] Hospital 52503Rhv: (330) Number: Repository [phone] () [id number] Date:2018-03-25 04/01/2018 Secondary FELIX J HALLDOB: Tae Insurance:ANTHEMPolic [id number] Community y Number: Hospital [id number] Repository Date:2713-64-91RS [address] [place] [address] 89592PH: 04/01/2018 Tertiary NOT GIVENUNK Tae Insurance:SELF PAY [facility] Number: Effective Repository Date:2018-03-25 03/30/2018 TIGRE Thapa Primary FELIX J HALLDOB: Ly[place] [id number] JASMYN Insurance:MEDICARE [id number] Community Hospital A [facility] 72974Ncb: (330) Number: Repository [phone] () [id number] Date:2018-03-25 03/30/2018 Secondary FELIX J HALLDOB: Lyons Insurance:ANTHEMPolic [id number] Community y Number: Hospital [id number] Repository Date:6441-69-74SJ [id number] [place] [address] 39364ZB: 03/30/2018 Tertiary NOT GIVENUNK [place] Insurance:SELF PAY [facility] Hospital Number: Effective Repository Date:2018-03-25 03/25/2018 TIGRE Thapa Primary FELIX J HALLDOB: Tae [id number] JASMYN Insurance:MEDICARE [id number] [facility]vue Hospital 60548Jqm: (330) Number: Repository [phone] () [id number] Date:2018-03-18 03/25/2018 Secondary FELIX J HALLDOB: Ly[place] Insurance:ANTHEMPolic [id number] Community y Number: Hospital [id number] Repository Date:4783-74-33AR [id number] [place] [address] 77841JA: 03/25/2018 Tertiary NOT GIVENUNK [place] Insurance:SELF PAY Community [facility] Number: Effective Repository Date:2018-03-18 03/22/2018 TIGRE Thapa Primary FELIX J HALLDOB: Lyons [id number] JASMYN Insurance:MEDICARE [id number] [place] PART A [facility] 01335Beo: (330) Number: Repository [phone] () [id number] Date:2018-03-18 03/22/2018 Secondary FELIX J HALLDOB: Tae Insurance:ANTHEMPolic [id number] Community y Number: [facility] [id number] Repository Date:8760-92-78DP [address] [place] [address] 30033QY: 03/22/2018 Tertiary NOT GIVENUNK Ly[place] Insurance:SELF PAY [facility] Number: Effective Repository Date:2018-03-18 03/18/2018 TIGRE Thapa Primary FELIX J HALLDOB: Lyons [id number] JASMYN Insurance:MEDICARE [id number] [place] PART A [facility] 84844Jaz: (330) Number: Repository [phone] () [id number] Date:2018-03-11 03/18/2018 Secondary FELIX J HALLDOB: Lyons Insurance:ANTHEMPolic [id number] Community y Number: Hospital [id number] Repository Date:1985-44-92AD [address] [place] [address] 20134KI: 03/18/2018 Tertiary NOT GIVENUNK Tae Insurance:SELF PAY [facility] Hospital Number: Effective Repository Date:2018-03-11 03/15/2018 TIGRE Thapa Primary FELIX J HALLDOB: Tae [id number] JASMYN Insurance:MEDICARE [id number] [facility] 28705Ydy: (330) Number: Repository [phone] () [id number] Date:2018-03-11 03/15/2018 Secondary FELIX J HALLDOB: Tae Insurance:ANTHEMPolic [id number] Community y Number: Hospital [id number] Repository Date:6326-04-74TX [address] [place] [address] 39137VC: 03/15/2018 Tertiary NOT GIVENUNK Tae Insurance:SELF PAY [facility] Number: Effective Repository Date:2018-03-11 03/10/2018 KASH Primary FELIX J HALLDOB: Lyons [id number] JASMYN Insurance:MEDICARE [id number] [facility] Hospital 84234Tvg: (330) Number: Repository [phone] () [id number] Date:2018-03-04 03/10/2018 Secondary FELIX J HALLDOB: Lyons Insurance:ANTHEMPolic [id number] Community y Number: Hospital [id number] Repository Date:3853-16-62WF [address] [place] [address] 11108DI: 03/10/2018 Tertiary NOT GIVENUNK Tae Insurance:SELF PAY [facility] Number: Effective Repository Date:2018-03-04 03/08/2018 TIGRE Thapa Primary FELIX J HALLDOB: Tae [id number] JASMYN Insurance:MEDICARE [id number] [facility] 64469Tpb: (330) Number: Repository [phone] () [id number] Date:2018-03-03 03/08/2018 Secondary FELIX J HALLDOB: Tae Insurance:ANTHEMPolic [id number] Community y Number: Hospital [id number] Repository Date:7777-57-88ZK [id number] [place] [address] 52745UO: 03/08/2018 Tertiary NOT GIVENUNK [place] Insurance:SELF PAY [facility] Hospital Number: Effective Repository Date:2018-03-03 03/01/2018 TIGRE Thapa Primary FELIX J HALLDOB: Tae [id number] JASMYN Insurance:MEDICARE [id number] [facility]vue Hospital 31146Xac: (330) Number: Repository [phone] () [id number] Date:2018-02-28 03/01/2018 Secondary FELIX J HALLDOB: Tae Insurance:ANTHEMPolic [id number] Community y Number: Hospital [id number] Repository Date:9297-23-44UW [id number] [place] [address]ZQ: 03/01/2018 Tertiary NOT GIVENUNK [place] Insurance:SELF PAY [facility] Number: Effective Repository Date:2018-02-28 02/25/2018 KASH Primary FELIX J HALLDOB: Lyons [id number] JASMYN Insurance:MEDICARE [id number] [facility] 60744Top: (330) Number: Repository [phone] () [id number] Date:2018-02-22 02/25/2018 Secondary FELIX J HALLDOB: Tae Insurance:ANTHEMPolic [id number] Community y Number: Hospital [id number] Repository Date:3538-10-22TH [address] [place] [address]OU: 02/25/2018 Tertiary NOT GIVENUNK Tae Insurance:SELF PAY [facility] Number: Effective Repository Date:2018-02-22 02/23/2018 KASH Primary FELIX J HALLDOB: Lyons [id number] JASMYN Insurance:MEDICARE [id number] [facility] Hospital 93206Aru: (330) Number: Repository [phone] () [id number] Date:2018-02-22 02/23/2018 Secondary FELIX J HALLDOB: Tae Insurance:ANTHEMPolic [id number] Community y Number: Hospital [id number] Repository Date:8400-50-23AV [address]RFITMRO, [place] [address]DR: 02/23/2018 Tertiary NOT GIVENUNK Ly[place] Insurance:SELF PAY [facility] Number: Effective Repository Date:2018-02-22 02/18/2018 TIGRE Thapa Primary FELIX J HALLDOB: Tae [id number] JASMYN Insurance:MEDICARE [id number] Community Hospital A [facility] 15758Dte: (330) Number: Repository [phone] () [id number] Date:2018-02-11 02/18/2018 Secondary FELIX J HALLDOB: Ly[place] Insurance:ANTHEMPolic [id number] Community y Number: Hospital [id number] Repository Date:7713-67-73MQ [id number] [place] [address] 90355ZD: 02/18/2018 Tertiary NOT GIVENUNK Tae Insurance:SELF PAY [facility] Number: Effective Repository Date:2018-02-11 02/15/2018 TIGRE Thapa Primary FELIX J HALLDOB: Tae [id number] JASMYN Insurance:MEDICARE [id number] Community Hospital A [facility] 21666Eda: (330) Number: Repository [phone] () [id number] Date:2018-02-11 02/15/2018 Secondary FELIX J HALLDOB: [place] Insurance:ANTHEMPolic [id number] Community y Number: Hospital [id number] Repository Date:2181-84-24UF [id number] [place] [address] 55779UG: 02/15/2018 Tertiary NOT GIVENUNK Tae Insurance:SELF PAY [facility] Number: Effective Repository Date:2018-02-11 02/11/2018 TIGRE Thapa Primary FELIX J HALLDOB: Tae [id number] JASMYN Insurance:MEDICARE [id number] Bellevue Hospital 99885Bpx: (330) Number: Repository [phone] () [id number] Date:2018-02-04 02/11/2018 Secondary FELIX J HALLDOB: Tae Insurance:ANTHEMPolic [id number] Community y Number: Hospital [id number] Repository Date:6622-29-79BP [address] [place] [address] 90404AC: 02/11/2018 Tertiary NOT GIVENUNK Tae Insurance:SELF PAY Community [facility] Number: Effective Repository Date:2018-02-04 02/08/2018 TIGRE Thapa Primary FELIX J HALLDOB: Lyons [id number] JASMYN Insurance:[place]IC[id number] [facility] 07801Lht: (330) Number: Repository [phone] () [id number] Date:2018-02-08 02/08/2018 Secondary FELIX J HALLDOB: Tae Insurance:ANTHEMPolic [id number] Community y Number: Hospital [id number] Repository Date:9958-94-27EL [address] [place] [address] 84094JZ: 02/08/2018 Tertiary NOT GIVENUNK [place] Insurance:SELF PAY [facility] Number: Effective Repository Date:2018-02-08 02/07/2018 TIGRE Thapa Primary FELIX J HALLDOB: Ly[place] [id number] JASMYN Insurance:MEDICARE [id number] [facility] 93615Soh: (330) Number: Repository [phone] () [id number] Date:2018-01-31 02/07/2018 Secondary FELIX J HALLDOB: Tae Insurance:ANTHEMPolic [id number] Community y Number: Hospital [id number] Repository Date:7563-31-35TR [address] [place] [address] 62661ZU: 02/07/2018 Tertiary NOT GIVENUNK Tae Insurance:SELF PAY [facility] Number: Effective Repository Date:2018-01-31 02/02/2018 TIGRE Thapa Primary FELIX J HALLDOB: Ly[place] [id number] JASMYN Insurance:MEDICARE [id number] [facility] 27599Stn: (330) Number: Repository [phone] () [id number] Date:2018-01-31 02/02/2018 Secondary FELIX J HALLDOB: [place] Insurance:ANTHEMPolic [id number] Community y Number: Hospital [id number] Repository Date:4758-69-84AJ [id number] [place] [address] 56728TP: 02/02/2018 Tertiary NOT GIVENUNK Tae Insurance:SELF PAY [facility] Number: Effective Repository Date:2018-01-31 01/28/2018 KASH Primary FELIX J HALLDOB: Tae [id number] JASMYN Insurance:MEDICARE [id number] [facility]vue Hospital 16042Cnw: (330) Number: Repository [phone] () [id number] Date:2018-01-21 01/28/2018 Secondary FELIX Alanis HALLDOB: Lyons Insurance:ANTHEMPolic [id number] Community y Number: Hospital [id number] Repository Date:4411-00-11RC [id number] [place] [address] 43215FV: 01/28/2018 Tertiary NOT GIVENUNK [place] Insurance:SELF PAY [facility] Number: Effective Repository Date:2018-01-21 01/25/2018 TIGRE Thapa Primary FELIX J HALLDOB: Tae [id number] JASMYN Insurance:MEDICARE [id number] [facility]vue Hospital 69114Cze: (330) Number: Repository [phone] () [id number] Date:2018-01-14 01/25/2018 Secondary FELIX J HALLDOB: Tae Insurance:ANTHEMPolic [id number] Community y Number: Hospital [id number] Repository Date:4686-75-45VH [address]JAPPQRR, [place] [address]ZY: 01/25/2018 Tertiary NOT GIVENUNK Tae Insurance:SELF PAY [facility] Number: Effective Repository Date:2018-01-14 01/21/2018 TIGRE Thapa Primary FELIX Thapa HALLDOB: Ly[place] [id number] JASMYN Insurance:MEDICARE [id number] [facility] Hospital 57226Jfp: (330) Number: Repository [phone] () [id number] Date:2018-01-14 01/21/2018 Secondary FELIX J HALLDOB: Ly[place] Insurance:ANTHEMPolic [id number] Community y Number: Hospital [id number] Repository Date:4521-25-55CU [address]HDCXNYO, [place] [address]QS: 01/21/2018 Tertiary NOT GIVENUNK Tae Insurance:SELF PAY [facility] Number: Effective Repository Date:2018-01-14 01/18/2018 KASH Primary FELIX J HALLDOB: Tae [id number] JASMYN Insurance:MEDICARE [id number] [facility] Hospital 24494Dnd: (330) Number: Repository [phone] () [id number] Date:2018-01-14 01/18/2018 Secondary FELIX J HALLDOB: Tae Insurance:ANTHEMPolic [id number] [facility] y Number: Hospital [id number] Repository Date:1820-84-45ME [address]HZZMKSS, [place] [address]EJ: 01/18/2018 Tertiary NOT GIVENUNK [place] Insurance:SELF PAY [facility] Hospital Number: Effective Repository Date:2018-01-14 01/17/2018 KASH Primary FELIX J HALLDOB: Ly[place] [id number] JASMYN Insurance:MEDICARE [id number] [facility] Hospital 63628Hyz: (330) Number: Repository [phone] () [id number] Date:2018-01-13 01/17/2018 Secondary FELIX J HALLDOB: Ly[place] Insurance:ANTHEMPolic [id number] Community y Number: Hospital [id number] Repository Date:9653-63-85AC [address]NLFSUNU, [place] [address]IJ: 01/17/2018 Tertiary NOT GIVENUNK Tae Insurance:SELF PAY [facility] Number: Effective Repository Date:2018-01-13 01/14/2018 TIGRE Thapa Primary FELIX J HALLDOB: Ly[place] [id number] JASMYN Insurance:MEDICARE [id number] [facility] Hospital 60230Pjk: (330) Number: Repository [phone] () [id number] Date:2018-01-07 01/14/2018 Secondary FELIX J HALLDOB: Tae Insurance:ANTHEMPolic [id number] Community y Number: Hospital [id number] Repository Date:4046-84-01VL [id number] [place] [address] 77357FS: 01/14/2018 Tertiary NOT GIVENUNK [place] Insurance:SELF PAY [facility] Number: Effective Repository Date:2018-01-07 01/11/2018 KASH Primary FELIX J HALLDOB: Tae [id number] JASMYN Insurance:MEDICARE [id number] Community Hospital [facility] 40247Rmx: (330) Number: Repository [phone] () [id number] Date:2018-01-07 01/11/2018 Secondary FELIX J HALLDOB: Tae Insurance:ANTHEMPolic [id number] Community y Number: Hospital [id number] Repository Date:6817-07-86BP [id number] [place] [address] 91635RB: 01/11/2018 Tertiary NOT GIVENUNK Tae Insurance:SELF PAY [facility] Number: Effective Repository Date:2018-01-07 01/07/2018 KASH Primary FELIX J HALLDOB: Ly[place] [id number] JASMYN Insurance:MEDICARE [id number] [facility]vue Hospital 01729Szc: (330) Number: Repository [phone] () [id number] Date:2018-01-03 01/07/2018 Secondary FELIX J HALLDOB: Tae Insurance:ANTHEMPolic [id number] [facility] y Number: Hospital [id number] Repository Date:3059-29-41RD [address] [place] [address] 62295ID: 01/07/2018 Tertiary NOT GIVENUNK [place] Insurance:SELF PAY [facility] Number: Effective Repository Date:2018-01-03 01/04/2018 KASH Primary FELIX J HALLDOB: Ly[place] [id number] JASMYN Insurance:MEDICARE [id number] [facility] 12561Xvx: (330) Number: Repository [phone] () [id number] Date:2018-01-03 01/04/2018 Secondary FELIX J HALLDOB: Tae Insurance:ANTHEMPolic [id number] Community y Number: [facility] [id number] Repository Date:8445-80-90IK [address] [place] [address] 36685VZ: 01/04/2018 Tertiary NOT GIVENUNK [place] Insurance:SELF PAY [facility] Number: Effective Repository Date:2018-01-03 12/31/2017 TIGRE Thapa Primary FELIX J HALLDOB: [place] [id number] JASMYN Insurance:MEDICARE [id number] [facility] 45973Gbh: (330) Number: Repository [phone] () [id number] Date:2017-12-23 12/31/2017 Secondary FELIX J HALLDOB: [place] Insurance:ANTHEMPolic [id number] Community y Number: [facility] [id number] Repository Date:7997-53-12QN [address] [place] [address] 93292NK: 12/31/2017 Tertiary NOT GIVENUNK Tae Insurance:SELF PAY [facility] Number: Effective Repository Date:2017-12-23 12/29/2017 TIGRE Thapa Primary FELIX J HALLDOB: Tae [id number] JASMYN Insurance:MEDICARE [id number] [facility] 15401Tqf: (330) Number: Repository [phone] () [id number] Date:2017-12-23 12/29/2017 Secondary FELIX J HALLDOB: Tae Insurance:ANTHEMPolic [id number] Community y Number: Hospital [id number] Repository Date:0380-54-20ZX [address]LFY[address] [place] [address] 86552EZ: 12/29/2017 Tertiary NOT GIVENUNK [place] Insurance:SELF PAY [facility] Number: Effective Repository Date:2017-12-23 12/28/2017 KASH Primary FELIX J HALLDOB: Tae [id number] JASMYN Insurance:MEDICARE [id number] [facility] [id number]: (330) Number: Repository [phone] () [id number] Date:2017-12-23 12/28/2017 Secondary FELIX J HALLDOB: Tae Insurance:[employer] [id number] Community y Number: Hospital [id number] Repository Date:2361-05-55[address], [place] [address]YU: 12/28/2017 Tertiary NOT GIVENUNK [place] Insurance:SELF PAY [facility] Number: Effective Repository Date:2017-12-23 12/23/2017 TIGRE Thapa Primary FELIX J HALLDOB: Ly[place] [id number] JASMYN Insurance[id number] [facility] [id number]: (330) Number: Repository [phone] () [id number] Date:2017-12-17 12/23/2017 Secondary FELIX J HALLDOB: Tae Insurance:[employer] [id number] Community y Number: Hospital [id number] Repository Date:9772-16-17[id number] [address]HR: 12/23/2017 Tertiary NOT GIVENUNK [place] Insurance:SELF PAY [facility] Number: Effective Repository Date:2017-12-17 12/21/2017 TIGRE Thapa Primary FELIX J HALLDOB: [place] [id number] JASMYN Insurance:MEDICARE [id number] Community [facility] [id number]: (330) Number: Repository [phone] () [id number] Date:2017-12-17 12/21/2017 Secondary FELIX J HALLDOB: [place] Insurance:[employer] [id number] Community y Number: Hospital [id number] Repository Date:3062-60-76[address] [address]AE: 12/21/2017 Tertiary NOT GIVENUNK [place] Insurance:SELF PAY [facility] Number: Effective Repository Date:2017-12-17 12/17/2017 KASH Primary FELIX J HALLDOB: Tae [id number] JASMYN Insurance:MEDICARE [id number] [address]798Rkj: (330) Number: Repository [phone] () [id number] Date:2017-12-10 12/17/2017 Secondary FELIX J HALLDOB: Tae Insurance:ANTHEMPolic [id number] [facility] y Number: Hospital [id number] Repository Date:3212-25-78WJ [address], [place] [address]IP: 12/17/2017 Tertiary NOT GIVENUNK [place] Insurance:SELF PAY [facility] Number: Effective Repository Date:2017-12-10 12/14/2017 KASH Primary FELIX J HALLDOB: [place] [id number] JASMYN Insurance:MEDICARE [id number] [facility] Hospital [address]Ccj: (330) Number: Repository [phone] () [id number] Date:2017-12-10 12/14/2017 Secondary FELIX J HALLDOB: Tae Insurance:ANTHEMPolic [id number] [facility] y Number: Hospital [id number] Repository Date:5039-77-36FP [address]NPSWZQM, [place] [address]KR: 12/14/2017 Tertiary NOT GIVENUNK Tae Insurance:SELF PAY [facility] Number: Effective Repository Date:2017-12-10 12/10/2017 TIGRE Thapa Primary FELIX J HALLDOB: Tae [id number] JASMYN Insurance:MEDICARE [id number] [address]33Oia: Number: Repository [phone] [id number] -6 (HP) Date:2017-12-03 12/10/2017 Secondary FELIX J HALLDOB: Tae Insurance:ANTHEMPolic [id number] Community y Number: Hospital [id number] Repository Date:6976-94-72YG [address] [place] [address]143UB: 12/10/2017 Tertiary NOT GIVENUNK [place] Insurance:SELF PAY [facility] Number: Effective Repository Date:2017-12-03 12/07/2017 TIGRE Thapa Primary FELIX J HALLDOB: [place] [id number] JASMYN Insurance:MEDICARE [id number] [facility] [address]245Bub: (330) Number: Repository [phone] () [id number] Date:2017-12-03 12/07/2017 Secondary FELIX J HALLDOB: [place] Insurance:ANTHEMPolic [id number] Community y Number: Hospital [id number] Repository Date:1537-60-23EL [address]EMJ[place]TP, [place] [address]AG: 12/07/2017 Tertiary NOT GIVENUNK Tae Insurance:SELF PAY [facility] Number: Effective Repository Date:2017-12-03 12/03/2017 TIGRE Thapa Primary FELIX J HALLDOB: [place] [id number] JASMYN Insurance:MEDICARE [id number] [facility] [address]345Tvv: Number: Repository [phone] [id number] -6 (HP) Date:2017-12-03 12/03/2017 Secondary FELIX J HALLDOB: Tae Insurance:ANTHEMPolic [id number] Community y Number: Hospital [id number] Repository Date:6689-92-87DR [address], [place] [address]XS: 12/03/2017 Tertiary NOT GIVENUNK [place] Insurance:SELF PAY [facility] Number: Effective Repository Date:2017-12-03 12/03/2017 TIGRE Thapa Primary FELIX J HALLDOB: Tae [id number] JASMYN Insurance:MEDICARE [id number] [facility] [address]Lzi: Number: Repository [phone] [id number] -6 (HP) Date:2017-12-01 12/03/2017 Secondary FELIX J HALLDOB: [place] Insurance:ANTHEMPolic [id number] Community y Number: Hospital [id number] Repository Date:2765-25-04OT [address]ZEQEXRS, [place] [address]FY: 12/03/2017 Tertiary NOT GIVENUNK [place] Insurance:SELF PAY [facility] Number: Effective Repository Date:2017-12-01 11/30/2017 TIGRE Thapa Primary FELIX J HALLDOB: Tae [id number] JASMYN Insurance:MEDICARE [id number] Community Hospital [facility] [address]Hob: Number: Repository [phone] [id number] -6 (HP) Date:2017-11-29 11/30/2017 Secondary FELIX J HALLDOB: [place] Insurance:ANTHEMPolic [id number] Community y Number: Hospital [id number] Repository Date:0265-09-38XO [address], [place] [address]PH: 11/30/2017 Tertiary NOT GIVENUNK Tae Insurance:SELF PAY [facility] Number: Effective Repository Date:2017-11-29 11/26/2017 TIGRE Thapa Primary FELIX J HALLDOB: [place] [id number] JAMSYN Insurance:MEDICARE [id number] [facility] 14453Znm: (330) Number: Repository [phone] () [id number] Date:2017-11-19 11/26/2017 Secondary FELIX J HALLDOB: [place] Insurance:ANTHEMPolic [id number] [facility] y Number: Hospital [id number] Repository Date:7291-09-80NR [address] [place] [address]IL: 11/26/2017 Tertiary NOT GIVENUNK Tae Insurance:SELF PAY [facility] Number: Effective Repository Date:2017-11-19 11/23/2017 TIGRE Thapa Primary FELIX J HALLDOB: Tae [id number] JASMYN Insurance:MEDICARE [id number] [place] PART A [facility] 224[address]Hpu: (330) Number: Repository [phone] () [id number] Date:2017-11-19 11/23/2017 Secondary FELIX J HALLDOB: [place] Insurance:ANTHEMPolic [id number] [facility] y Number: Hospital [id number] Repository Date:3038-47-01RT [address] [place] [address] 655[address]YL: 11/23/2017 Tertiary NOT GIVENUNK [place] Insurance:SELF PAY [facility] Number: Effective Repository Date:2017-11-19 11/19/2017 KASH Primary FELIX J HALLDOB: [place] [id number] JASMYN Insurance:ANTHEMPolic [id number] [place] y Number: Hospital [address]Fav: [id number] Repository [phone] Date:7491-89-52NP [address] () 226758HGLAHND, [place] [address]ZQ: 11/19/2017 Secondary FELIX J SCOTTDOB: Tae Insurance:MEDICARE [id number] [facility] PART A [facility] Hospital Number: Repository [id number] Date:2017-11-12 11/19/2017 Tertiary NOT GIVENUNK Tae Insurance:SELF PAY [facility] Number: Effective Repository Date:2017-11-12 11/16/2017 TIGRE Thapa Primary FELIX J HALLDOB: [place] [id number] JASMYN Insurance:MEDICARE [id number] [facility] [address]Msi: Number: Repository [phone] [id number] -6 (HP) Date:2017-11-12 11/16/2017 Secondary FELIX J HALLDOB: [place] Insurance:ANTHEMPolic [id number] Community y Number: Hospital [id number] Repository Date:8782-65-05[address] [address]NI: 11/16/2017 Tertiary NOT GIVENUNK Tae Insurance:SELF PAY [facility] Number: Effective Repository Date:2017-11-12 11/12/2017 TIGRE Thapa Primary FELIX J HALLDOB: Tae [id number] JASMYN Insurance:MEDICARE [id number] [facility] [address]Sns: Number: Repository [phone] [id number] -6 (HP) Date:2017-11-02 11/12/2017 Secondary FELIX J HALLDOB: Tae Insurance:ANTHEMPolic [id number] Community y Number: Hospital [id number] Repository Date:8017-42-31TI [address] [address]TM: 11/12/2017 Tertiary NOT GIVENUNK Tae Insurance:SELF PAY [facility] Number: Effective Repository Date:2017-11-02 11/10/2017 TIGRE Thapa Primary FELIX J HALLDOB: [place] [id number] JASMYN Insurance:MEDICARE [id number] [facility] 97657Fvp: Number: Repository [phone] [id number] -6 (HP) Date:2017-11-02 11/10/2017 Secondary FELIX J HALLDOB: [place] Insurance:ANTHEMPolic [id number] [facility] y Number: Hospital [id number] Repository Date:1572-96-29WG [address]GQ[address] [address]LT: 11/10/2017 Tertiary NOT GIVENUNK Tae Insurance:SELF PAY [facility] Number: Effective Repository Date:2017-11-02 11/04/2017 TIGRE Thapa Primary FELIX J HALLDOB: [place] [id number] JASMYN Insurance:MEDICARE [id number] [facility] Hospital [address]65[address]Njz: (330) Number: Repository [phone] () [id number] Date:2017-10-29 11/04/2017 Secondary FELIX J HALLDOB: Tae Insurance:ANTHEMPolic [id number] Community y Number: Hospital [id number] Repository Date:3896-88-28RO [address] [place] [address]UM: 11/04/2017 Tertiary NOT GIVENUNK [place] Insurance:SELF PAY [facility] Number: Effective Repository Date:2017-10-29 11/02/2017 TIGRE Thapa Primary FELIX J HALLDOB: [place] [id number] JASMYN Insurance:MEDICARE [id number] [facility] 12603Pqq: Number: Repository [phone] [id number] -6 (HP) Date:2017-10-29 11/02/2017 Secondary FELIX Alanis WILDDOB: Tae Insurance:ANTHEMPolic [id number] Community y Number: Hospital [id number] Repository Date:5283-70-39UQ [address] [place] [address] 718[address]MG: 11/02/2017 Tertiary NOT GIVENUNK Tae Insurance:SELF PAY [facility] Number: Effective Repository Date:2017-10-29 10/29/2017 TIGRE Thapa Primary FELIX J HALLDOB: Tae [id number] JASMYN Insurance:MEDICARE [id number] [facility] 328[address]Pvh: Number: Repository [phone] [id number] -6 (HP) Date:2017-10-25 10/29/2017 Secondary FELIX J HALLDOB: Tae Insurance:ANTHEMPolic [id number] Community y Number: Hospital [id number] Repository Date:0730-49-87NH [address] [place] [address] 855[address]FF: 10/29/2017 Tertiary NOT GIVENUNK Tae Insurance:SELF PAY [facility] Number: Effective Repository Date:2017-10-25 10/26/2017 TIGRE Thapa Primary FELIX J SCOTTDOB: Tae [id number] JASMYN Insurance:MEDICARE [id number] [facility] 36496Jby: Number: Repository [phone] [id number] -6 (HP) Date:2017-10-25 10/26/2017 Secondary FELIX WILDDOB: [facility] [id number] Community y Number: Hospital [id number] Repository Date:6509-54-51EU [address]JFPGTPG, [place] [address]IN: 10/26/2017 Tertiary NOT GIVENUNK [place] Insurance:SELF PAY [facility] Number: Effective Repository Date:2017-10-25 10/22/2017 TIGRE Thapa Primary FELIX J HALLDOB: Tae [id number] JASMYN Insurance:MEDICARE [id number] [facility] 91911Qsj: Number: Repository [phone] [id number] -6 (HP) Date:2017-10-15 10/22/2017 Secondary FELIX Alanis WILDDOB: [place] [facility] [id number] Community y Number: Hospital [id number] Repository Date:5055-72-86SU [address]PDINRPY, [place] [address]SR: 10/22/2017 Tertiary NOT GIVENUNK Tae Insurance:SELF PAY [facility] Number: Effective Repository Date:2017-10-15 10/19/2017 TIGRE Thapa Primary FELIX J SCOTTDOB: [place] [id number] JASMYN Insurance:MEDICARE [id number] [facility] 77190Obu: Number: Repository [phone] [id number] -6 (HP) Date:2017-10-15 10/19/2017 Secondary FELIX J SCOTTDOB: Tae Insurance:ANTHEMPolic [id number] Community y Number: Hospital [id number] Repository Date:4824-49-74NB [address]KJPDUWJ, [place] [address]JZ: 10/19/2017 Tertiary NOT GIVENUNK Tae Insurance:SELF PAY [facility] Number: Effective Repository Date:2017-10-15 10/15/2017 TIGRE Thapa Primary FELIX J HALLDOB: [place] [id number] JASMYN Insurance:MEDICARE [id number] [facility] Hospital 83448Onx: Number: Repository [phone] [id number] -6 (HP) Date:2017-10-08 10/15/2017 Secondary FELIX J SCOTTDOB: [place] Insurance:ANTHEMPolic [id number] Community y Number: Hospital [id number] Repository Date:4700-06-10VF [address]APMASCZ, [place] [address]AL: 10/15/2017 Tertiary NOT GIVENUNK Tae Insurance:SELF PAY [facility] Number: Effective Repository Date:2017-10-08 10/12/2017 TIGRE Thapa Primary FELIX J HALLDOB: [place] [id number] JASMYN Insurance:MEDICARE [id number] [facility] Hospital 38655Abv: Number: Repository [phone] [id number] -6 (HP) Date:2017-10-08 10/12/2017 Secondary FELIX J HALLDOB: [place] Insurance:ANTHEMPolic [id number] Community y Number: Hospital [id number] Repository Date:7202-45-89ZM [address]IGARCRP, [place] [address]BX: 10/12/2017 Tertiary NOT GIVENUNK Tae Insurance:SELF PAY [facility] Number: Effective Repository Date:2017-10-08 10/08/2017 KASH Primary FELIX J HALLDOB: [place] [id number] JASMYN Insurance:MEDICARE [id number] [facility] 14156Jik: Number: Repository [phone] [id number] -6 (HP) Date:2017-10-01 10/08/2017 Secondary FELIX J HALLDOB: Tae Insurance:ANTHEMPolic [id number] Community y Number: Hospital [id number] Repository Date:3131-75-50XF [address] [place] [address] 984[address]BM: 10/08/2017 Tertiary NOT GIVENUNK Tae Insurance:SELF PAY [facility] Number: Effective Repository Date:2017-10-01 10/05/2017 TIGRE Thapa Primary FELIX J HALLDOB: [place] [id number] JASMYN Insurance:MEDICARE [id number] [facility] 41163Mgo: Number: Repository [phone] [id number] -6 (HP) Date:2017-10-01 10/05/2017 Secondary FELIXKayli WILDDOB: [place] Insurance:ANTHEMPolic [id number] Community y Number: Hospital [id number] Repository Date:4385-65-64FS [address] [place] [address] 805[address]DB: 10/05/2017 Tertiary NOT GIVENUNK Tae Insurance:SELF PAY [facility] Number: Effective Repository Date:2017-10-01 10/01/2017 TIGRE Thapa Primary FELIX J HALLDOB: [place] [id number] JASMYN Insurance:MEDICARE [id number] [facility] 26540Zzi: Number: Repository [phone] [id number] -6 (HP) Date:2017-09-24 10/01/2017 Secondary FELIX J HALLDOB: [place] Insurance:ANTHEMPolic [id number] Community y Number: Hospital [id number] Repository Date:3718-10-70FJ [address], [place] [address]GA: 10/01/2017 Tertiary NOT GIVENUNK [place] Insurance:SELF PAY [facility] Effective Repository Date:2017-09-24 09/28/2017 TIGRE Thapa Primary FELIX J HALLDOB: [place] [id number] JASMYN Insurance:MEDICARE [id number] [facility] 129[address]Vcw: Number: Repository [phone] [id number] -6 (HP) Date:2017-09-24 09/28/2017 Secondary FELIX J SCOTTDOB: Tae Insurance:ANTHEMPolic [id number] Community y Number: [facility] [id number] Repository Date:1174-85-66OR [address]JKAYJJT, [place] [address]QL: 09/28/2017 Tertiary NOT GIVENUNK Tae Insurance:SELF PAY [facility] Number: Effective Repository Date:2017-09-24 09/28/2017 TIGRE Thapa Primary FELIX J HALLDOB: Tae [id number] JASMYN Insurance:ANTHEMPolic [id number] Number: Hospital [address]Nnt: [id number] Repository [phone] Date:5198-61-67ST [address] () [address]ON[place]IF, [place] [address]HU: 09/28/2017 Secondary FELIX J HALLDOB: [place] Insurance:MEDICARE [id number] Community PART A [facility] Number: Repository [id number] Date:2017-06-02 09/28/2017 Tertiary NOT GIVENUNK Tae Insurance:SELF PAY [facility] Number: Effective Repository Date:2017-06-02 09/24/2017 TIGRE Thapa Primary FELIX J HALLDOB: [place] [id number] JASMYN Insurance:MEDICARE [id number] [facility] 93991Car: Number: Repository [phone] [id number] -6 (HP) Date:2017-09-17 09/24/2017 Secondary FELIX J SCOTTDOB: [place] Insurance:ANTHEMPolic [id number] [facility] y Number: Hospital [id number] Repository Date:7264-55-40YT [address]QXAEDEZ, [place] [address]QF: 09/24/2017 Tertiary NOT GIVENUNK [place] Insurance:SELF PAY [facility] Number: Effective Repository Date:2017-09-17 09/21/2017 TIGRE Thapa Primary FELIX J SCOTTDOB: [place] [id number] JASMYN Insurance:MEDICARE [id number] [facility] 51045Qvu: Number: Repository [phone] [id number] -6 (HP) Date:2017-09-17 09/21/2017 Secondary FELIX J SCOTTDOB: [place] Insurance:ANTHEMPolic [id number] Community y Number: Hospital [id number] Repository Date:1517-03-42IA [address]DAEDMHQ, [place] [address]IN: 09/21/2017 Tertiary NOT GIVENUNK [place] Insurance:SELF PAY [facility] Number: Effective Repository Date:2017-09-17 09/17/2017 TIGRE Thapa Primary FELIX J SCOTTDOB: [place] [id number] JASMYN Insurance:MEDICARE [id number] [facility] 12514Vxb: Number: Repository [phone] [id number] -6 (HP) Date:2017-09-13 09/17/2017 Secondary FELIX J HALLDOB: Tae Insurance:ANTHEMPolic [id number] Community y Number: Hospital [id number] Repository Date:9620-24-29AF [address]SACZIAA, [place] [address]ZH: 09/17/2017 Tertiary NOT GIVENUNK [place] Insurance:SELF PAY [facility] Number: Effective Repository Date:2017-09-13 09/14/2017 TIGRE Thapa Primary FELIX J HALLDOB: Tae [id number] JASMYN Insurance:MEDICARE [id number] [facility] 10484Tmz: Number: Repository [phone] [id number] -6 (HP) Date:2017-09-13 09/14/2017 Secondary FELIX J HALLDOB: Tae Insurance:ANTHEMPolic [id number] Community y Number: Hospital [id number] Repository Date:7771-95-42UX [address] [place] [address] 944[address]AY: 09/14/2017 Tertiary NOT GIVENUNK [place] Insurance:SELF PAY [facility] Number: Effective Repository Date:2017-09-13 09/10/2017 TIGRE Thapa Primary FELIX J HALLDOB: Tae [id number] JASMYN Insurance:MEDICARE [id number] [facility] 24[address]Lvo: Number: Repository [phone] [id number] -6 (HP) Date:2017-09-03 09/10/2017 Secondary FELIX J HALLDOB: [place] Insurance:ANTHEMPolic [id number] Community y Number: Hospital [id number] Repository Date:4189-64-97DS [address] [place] [address] 369[address]MY: 09/10/2017 Tertiary NOT GIVENUNK Tae Insurance:SELF PAY [facility] Number: Effective Repository Date:2017-09-03 09/07/2017 TGIRE Thapa Primary FELIX J HALLDOB: Tae [id number] JASMYN Insurance:MEDICARE [id number] 85594Fjd: Number: Repository [phone] [id number] -6 (HP) Date:2017-09-03 09/07/2017 Secondary FELIX J HALLDOB: [place] Insurance:ANTHEMPolic [id number] [facility] y Number: Hospital [id number] Repository Date:2888-62-27AF [address] [place] [address]86[address]IR: 09/07/2017 Tertiary NOT GIVENUNK Tae Insurance:SELF PAY [facility] Number: Effective Repository Date:2017-09-03 09/03/2017 TIGRE Thapa Primary FELIX Thapa HALLDOB: Tae [id number] JASMYN Insurance:MEDICARE [id number] Community Hospital [facility] 03302Ima: Number: Repository [phone] [id number] -6 (HP) Date:2017-08-27 09/03/2017 Secondary FELIXKayli WILDDOB: [place] Insurance:ANTHEMPolic [id number] Community y Number: [facility] [id number] Repository Date:8588-10-08ES [address] [place] [address] 880[address]WW: 09/03/2017 Tertiary NOT GIVENUNK Tae Insurance:SELF PAY [facility] Number: Effective Repository Date:2017-08-27 09/01/2017 TIGRE Thapa Primary FELIX WILDDOB: Tae [id number] JASMYN Insurance:MEDICARE [id number] Community Hospital [facility] 21396Dlx: Number: Repository [phone] [id number] -6 (HP) Date:2017-08-27 09/01/2017 Secondary FELIXKayli WILDDOB: [place] Insurance:ANTHEMPolic [id number] Community y Number: [facility] [id number] Repository Date:1387-58-24ZU [address] [place] [address] 194[address]IW: 09/01/2017 Tertiary NOT GIVENUNK [place] Insurance:SELF PAY [facility] Number: Effective Repository Date:2017-08-27 08/27/2017 TIGRE Thapa Primary FELIX WILDDOB: Tae [id number] JASMYN Insurance:MEDICARE [id number] [facility] Hospital 78757Uyj: Number: Repository [phone] [id number] -6 (HP) Date:2017-08-20 08/27/2017 Secondary FELIX J HALLDOB: [place] Insurance:ANTHEMPolic [id number] Community y Number: Hospital [id number] Repository Date:6536-42-99FI [address]OPYRGHF, [place] [address]OP: 08/27/2017 Tertiary NOT GIVENUNK [place] Insurance:SELF PAY [facility] Number: Effective Repository Date:2017-08-20 08/24/2017 TIGRE Thapa Primary FELIX WILDDOB: [place] [id number] JASMYN Insurance:MEDICARE [id number] [facility] 41419Bzu: Number: Repository [phone] [id number] -6 (HP) Date:2017-08-20 08/24/2017 Secondary FELIXKayli WILDDOB: Tae Insurance:ANTHEMPolic [id number] Community y Number: Hospital [id number] Repository Date:1994-67-92WZ [address]DNZOFXY, [place] [address]ZF: 08/24/2017 Tertiary NOT GIVENUNK [place] Insurance:SELF PAY [facility] Number: Effective Repository Date:2017-08-20 08/20/2017 TIGRE Thapa Primary FELIX WILDDOB: Tae [id number] JASMYN Insurance:MEDICARE [id number] [facility] Hospital 89066Mwj: Number: Repository [phone] [id number] -6 (HP) Date:2017-08-12 08/20/2017 Secondary FELIXKayli WILDDOB: Tae Insurance:ANTHEMPolic [id number] Community y Number: Hospital [id number] Repository Date:1872-67-45PF [address]MMOVDFN, [place] [address]PI: 08/20/2017 Tertiary NOT GIVENUNK [place] Insurance:SELF PAY [facility] Number: Effective Repository Date:2017-08-12 08/17/2017 TIGRE Thapa Primary FELIX WILDDOB: Tae [id number] JASMYN Insurance:MEDICARE [id number] [facility] 00655Pvb: (330) Number: Repository [phone] () [id number] Date:2017-08-12 08/17/2017 Secondary FELIX J HALLDOB: [place] Insurance:ANTHEMPolic [id number] Community y Number: Hospital [id number] Repository Date:0408-63-61DX [address] [place] [address] 100[address]YL: 08/17/2017 Tertiary NOT GIVENUNK Tae Insurance:SELF PAY [facility] Number: Effective Repository Date:2017-08-12 08/13/2017 TIGRE Thapa Primary FELIX J HALLDOB: Tae [id number] JASMYN Insurance:MEDICARE [id number] [facility] 98903Cyd: (330) Number: Repository [phone] () [id number] Date:2017-08-11 08/13/2017 Secondary FELIX J HALLDOB: [facility] [id number] Community y Number: Hospital [id number] Repository Date:[id number] [address] [place] [address]TG: 08/13/2017 Tertiary NOT GIVENUNK [place] Insurance:SELF PAY [facility] Number: Effective Repository Date:2017-08-11 08/12/2017 TIGRE Thapa Primary FELIX J HALLDOB: Tae [id number] JASMYN Insurance:MEDICARE [id number] [address]Utb: Number: Repository [phone] [id number] (HP) Date:2017-08-11 08/12/2017 Secondary FELIX J HALLDOB: Tae Insurance:ANTHEMPolic [id number] Community y Number: Hospital [id number] Repository Date:[id number] [address]KT: 08/12/2017 Tertiary NOT GIVENUNK [place] Insurance:SELF PAY [facility] Number: Effective Repository Date:2017-08-11 07/01/2017 TIGRE Thapa Primary FELIX J HALLDOB: Tae [id number] JASMYN Insurance:MEDICARE [id number] [address]Vuz: Number: Repository [phone] [id number] (HP) Date:2017-06-25 07/01/2017 Secondary FELIX J HALLDOB: Tae Insurance:ANTHEMPolic [id number] Community y Number: Hospital [id number] Repository Date:[id number], [place] [address]MJ: 07/01/2017 Tertiary NOT GIVENUNK [place] Insurance:SELF PAY [facility] Number: Effective Repository Date:2017-06-25 06/29/2017 TIGRE Thapa Primary FELIX J HALLDOB: [place] [id number] JASMYN Insurance:MEDICARE [id number] [address]Rjt: Number: Repository [phone] [id number] (HP) Date:2017-06-25 06/29/2017 Secondary FELIX WILDDOB: [place] Insurance:ANTHEMPolic [id number] Community y Number: Hospital [id number] Repository Date:[id number], [place] [address]AC: 06/29/2017 Tertiary NOT GIVENUNK [place] Insurance:SELF PAY [facility] Number: Effective Repository Date:2017-06-25 06/25/2017 TIGRE Thapa Primary FELIX J HALLDOB: [place] [id number] JASMYN Insurance:MEDICARE [id number] [facility] [address]Cmw: Number: Repository [phone] [id number] (HP) Date:2017-06-25 06/25/2017 Secondary FELIX J HALLDOB: Tae Insurance:[employer] [id number] y Number: Hospital [id number] Repository Date:9915-19-34[address], [place] [address]EA: 06/25/2017 Tertiary NOT GIVENUNK Tae Insurance:SELF PAY [facility] Number: Effective Repository Date:2017-06-25 06/25/2017 TIGRE Thapa Primary FELIX J HALLDOB: [place] [id number] JASMYN Insurance:MEDICARE [id number] [address]Vmb: Number: Repository [phone] [id number] (HP) Date:2017-06-18 06/25/2017 Secondary FELIX Alanis WILDDOB: [facility]ae [facility] [id number] Community y Number: [facility] [id number] Repository Date:9367-31-12[address], [place] [address]PA: 06/25/2017 Tertiary NOT GIVENUNK [place] Insurance:SELF PAY [facility] Number: Effective Repository Date:2017-06-18 06/24/2017 TIGRE Thapa Primary FELIX J HALLDOB: [place] [id number] JASMYN Insurance:MEDICARE [id number] [address]Zur: Number: Repository [phone] [id number] (HP) Date:2017-06-24 06/24/2017 Secondary FELIX J SCOTTDOB: Tae Insurance:[facility] [id number] Community y Number: [facility] [id number] Repository Date:0406-90-43[address], [place] [address]BI: 06/24/2017 Tertiary NOT GIVENUNK [place] Insurance:SELF PAY [facility] Number: Effective Repository Date:2017-06-24 06/22/2017 TIGRE Thapa Primary FELIX J HALLDOB: Tae [id number] JASMYN Insurance:MEDICARE [id number] [address]Xji: (330) Number: Repository [phone] () [id number] Date:2017-06-18 06/22/2017 Secondary FELIX J HALLDOB: Tae Insurance:[employer] [id number] [facility] y Number: Hospital [id number] Repository Date:5467-31-69IF [address] [place] [address]MK: 06/22/2017 Tertiary NOT GIVENUNK Tae Insurance[facility]SELF PAY [facility] Number: Effective Repository Date:2017-06-18 06/18/2017 Kash Primary FELIX J HALLDOB: Tae [id number] Jasmyn Insurance:MEDICARE [id number] [id number]: (330) Number: Repository [phone] () [id number] Date:2017-06-11 06/18/2017 Secondary FELIX J HALLDOB: [place] Insurance:[employer] [id number] Community y Number: Hospital [id number] Repository Date:9783-68-50JB [address] [place] [address]SM: 06/18/2017 Tertiary NOT GIVENUNK Tae Insurance:SELF PAY [facility] Number: Effective Repository Date:2017-06-11 06/17/2017 Kash Primary FELIX J HALLDOB: Tae [id number] Jasmyn Insurance:MEDICARE [id number] [address]Bcb: (330) Number: Repository [phone] () [id number] Date:2017-06-11 06/17/2017 Secondary FELIX J HALLDOB: Tae Insurance:[employer] [id number] Community y Number: Hospital [id number] Repository Date:0180-96-64YJ [address] [place] [address]YC: 06/17/2017 Tertiary NOT GIVENUNK [place] Insurance:SELF PAY [facility] Number: Effective Repository Date:2017-06-11 06/11/2017 Kash Primary FELIX J HALLDOB: Tae [id number] Jasmyn Insurance:MEDICARE [id number] [place] A [facility] [id number]: (330) Number: Repository [phone] () [id number] Date:2017-06-02 06/11/2017 Secondary FELIX LOBATOB: Tae Insurance:[employer] [id number] [facility] y Number: [facility] [id number] Repository Date:2851-81-87[id number] [place] [address]OR: 06/11/2017 Tertiary NOT GIVENUNK [place] Insurance:SELF PAY [facility] Number: Effective Repository Date:2017-06-02
== END ==
PROVIDERS: Family Provider Nurse Practitioner; PCP Nurse Practitioner; Referring Provider Psychiatry & Neurology Neurology; Visit Provider Psychiatry & Neurology Neurology
DX: E71.314 Muscle carnitine palmitoyltransferase deficiency (principal)
CPT/HCPCS: 96365 ×2; J7030; J7050; A4216

== ENCOUNTER → 2018-05-24 09:48 | Outpatient (CLI) | payer MEDICARE, BC, SELFPAY ==
[2018-05-20 10:08] VITALS: BMI 34.1
[2018-05-24 09:59] VITALS: BP 143/67; PULSE 76; RESP 16; TEMP 36.2; O2SAT 100; BMI 33.1
[2018-05-24 13:40] VITALS: BP 146/70; PULSE 61; RESP 18
== END ==
PROVIDERS: Family Provider Nurse Practitioner; PCP Nurse Practitioner; Referring Provider Psychiatry & Neurology Neurology; Visit Provider Psychiatry & Neurology Neurology
DX: E71.314 Muscle carnitine palmitoyltransferase deficiency (principal)
CPT/HCPCS: 96365 ×2; J7030; J7050; A4216

== ENCOUNTER → 2018-05-27 09:43 | Outpatient (CLI) | payer MEDICARE, BC, SELFPAY ==
[2018-05-20 10:08] VITALS: BMI 34.1
[2018-05-24 09:59] VITALS: BMI 33.1
[2018-05-27 09:51] VITALS: BP 153/84; PULSE 72; RESP 16; TEMP 36.9; O2SAT 99; BMI 34.1
== END ==
PROVIDERS: Family Provider Nurse Practitioner; PCP Nurse Practitioner; Referring Provider Psychiatry & Neurology Neurology; Visit Provider Psychiatry & Neurology Neurology
DX: E71.314 Muscle carnitine palmitoyltransferase deficiency (principal)
CPT/HCPCS: 96365 ×2; J7050; A4216

== ENCOUNTER → 2018-06-01 09:47 | Outpatient (CLI) | payer MEDICARE, BC, SELFPAY ==
[2018-05-27 09:51] VITALS: BMI 34.1
[2018-06-01 09:56] VITALS: BP 145/73; PULSE 72; RESP 16; TEMP 36.6; O2SAT 98; BMI 33.6
--- OUTSIDE RECORDS SUMMARY | 2018-07-18 08:23 | XMS RPT_ITS | Continuity of Care Document ---
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 Manriquez at [facility] getting carotene weekly IV twice a [...] Comments: [facility] Status: Active Urinary incontinence (R32, 788.30) Status: [...] Quantity: 30 {Tablet} Refills: 3 Ordered:15-Apr-2018 Teddy [employer], Aislinn Boo CNP, Aislinn Aragon Start : 15-Apr-2018 Active ProAir HFA 108 (90 Base) MCG/ACT Inhalation Aerosol Solution 2 (two) Puff Puff tid prn for 0 days Quantity: 1 {Inhaler} Refills: 3 Ordered:10-Mar-2018 Katy Reyes Start : 10-Mar-2018 Active PROzac 20 MG Oral Capsule 1 Capsule qd for 0 days Quantity: 90 {Capsule} Refills: 3 Ordered:28-Mar-2018 Teddy [employer], Aislinn Boo CNP, Aislinn Aragon Start : 28-Mar-2018 Active Sulindac 150 MG Oral Tablet 1 Tablet qod for 0 days Quantity: 30 {Tablet} Refills: 0 Ordered:19-May-2016 Teddy [employer], Aislinn Boo CNP, Aislinn Aragon Start : [...] Quantity: 30 {Tablet} Refills: 0 Ordered:02-May-2018 Teddy [employer], Aislinn Boo CNP, Aislinn Aragon Start : [...] : 18-Dec-2016 End : 28-Dec-2016 Inactive ERGOCALCIFEROL, 16952QPXH (Oral Capsule) 1 (one) Capsule twice weekly [...] 3 days then 1 tab tid NYSTATIN, 564498MTQH/ML (Mouth/Throat Suspension) 4 Milliliter qid for 7 days Quantity: 1 {qs} Refills: 0 Ordered:23-Dec-2010 Teddy [employer], Aislinn Boo [employer], Divya Start : 23-Dec-2010 End : 30-Dec-2010 [...] 11-Apr-2012 End : 11-Oct-2015 Discontinued VITAMIN D, 09151JLYO (Oral Capsule) 1 (one) Capsule twice weekly for 0 days Quantity: 24 {Capsule} Refills: 0 Ordered:16-Oct-2009 Kassie Tellez LPN Start : 16-Oct-2009 End : 07-May-2010 Discontinued Comments:This order discontinued per [facility]. Vitamin D3 5000 UNIT Oral Tablet [...] Lower Extremity Result: Comments: See Note; NOTES: [facility] Cardiovascular Services [address] [place] [address] Venous Duplex US, Unilateral 05/10/18 1256 MR#: [id number] Acct: [id number] Name: HANNA MANE Rep #: [id number] : 1950 67 From: Anthony Washburn MD Attending Dr: Aislinn Espinal NP Status: REG CLI Ordering Dr: Aislinn Espinal FINANCE ASSISTANT-C Date: 05/10/18 Location: [facility] Sex: F C [...] Dictated: 05/10/18 1256 Date Transcribed: 05/12/18 1341 Investigator: Signed 25-Jan-2018 Operative Report Result: Comments: See Note; NOTES: [facility] Medical Records Department [address] [place] [address] Operative Report 01/25/18 1254 MR#: [id number] Acct: [id number] Name: HANNA CHAVEZ Rep #: [id number] : 1950 67 From: Vaishnavi Dietz MD PCP: Aislinn Espinal NP Status: [facility] Y Location: [place] [address] Problem List (1) Urinary tract infection Status: Acute Report of Operation Date of Procedure: 01/25/18 Pre-Operative Diagnosis: urinary tract infection, pelvic pain Post-Operative Diagnosis: same and rectocele Surgery/Procedure Performed:: cystoscopy and pelvic exam under anesthesi a Description of Surgical Findings:: normal cystoscopy. very short anterior vaginal wall. grade 3 rectocele. atrophy. skein yard drier: Vaishnavi Dietz Type of Anesthesia:: MAC Specimen's [...] Date Vaishnavi Dietz MD CC: Aislinn Espinal FINANCE ASSISTANT; Vaishnavi Dietz MD Signed 25-Jan-2018 Discharge Instruction Result: Comments: See Note; NOTES: [facility] Medical Records Department [address] [place] [address] Instructions for Home/Discharge Instructions 01/25/18 1228 MR#: [id number] Acct: [id number] Name: HANNA CHAVEZ Rep #: [id number] : 1950 67 From: Vaishnavi Dietz MD PCP: Aislinn Espinal NP Status: REG [facility] Discharge Diet: No Restrictions Discharge Activity: Return [...] DAILY 05/23/13 Triamcinolone Acetonide [Nasacort Aq Nasal [place]] 2 spray NASAL DAILY PRN 05/23/13 Levocarnitine [...] and Bladder Result: Comments: See Note; NOTES: [facility] Imaging Services [address] [place] [address] Kidney and Bladder MR#: [id number] Acct: [id number] Name: HANNA CHAVEZ Rep #: [id number] DO B: 1950 F 67 From: Tee Weems PCP: Aislinn Espinal NP Status: REG CLI Study: Kidney and Bladder Date of Exam: 01/17/18 Exam# [id number] Ordering Dr: Vaishnavi Dietz MD STUDY: RENAL [...] CC: Aislinn Espinal NP; Vaishnavi Dietz MD Investigator: Signed 29-Dec-2017 Transvaginal Non- Result: Comments: See Note; NOTES: [facility] Imaging Services [address] [place] [address] Transvaginal Non- MR#: [id number] Acct: [id number] Name: HANNA CHAVEZ Rep #: [id number] : 1950 F 67 From: Jacky Hanson MD PCP: Aislinn Espinal NP Status: REG CLI Study: Transvaginal Non- Date of Exam: 12/29/17 Exam# [id number] Ordering Dr: Vaishnavi Dietz MD STUDY: U [...] CC: Aislinn Espinal NP; Vaishnavi Dietz MD Investigator: Signed 09-Dec-2017 Downtime Report Result: Comments: See Note; NOTES: [facility] Medical Records Department [address] [place] [address] Downtime Report MR#: [id number] Acct: [id number] Name: HANNA CHAVEZ Rep #: [id number] : 1950 67 From: Elmer Moreno PCP: Teddy LUGO, Aislinn Status: REG CLI This patient was seen during an EMR downtime November 22, 2017 - November 29, 2017. This patient may have a combination of paper and electronic documentation or all paper documentation. All documentation is viewable within the e-chart portion of [employer] for each patient visit. 09-Dec-2017 Downtime Report Result: Comments: See Note; NOTES: [facility] Medical Records Department [address] [place] [address] Downtime Report MR#: [id number] Acct: [id number] Name: HANNA CHAVEZ Rep #: [id number] : 1950 67 From: Elmer Moreno PCP: Aislinn Espinal NP Status: REG CLI This patient was seen during an EMR downtime November 22, 2017 - November 29, 2017. This patient may have a combination of paper and electronic documentation or all paper documentation. All documentation is viewable within the e-chart portion of [employer] for each patient visit. 03-Dec-2017 Foot min 3 Views Result: Comments: See Note; NOTES: [facility] Imaging Services [address] [place] [address] Foot min 3 Views MR#: [id number] Acct: [id number] Name: HANNA CHAVEZ Rep #: [id number] : 1950 F 67 From: Yahir Wolfe MD PCP: Aislinn Espinal NP Status: REG CLI Study: Foot min 3 Views Date of Exam: 12/03/17 Exam# [id number] Ordering Dr: Aislinn Espinal STUDY: X-RAY - [...] Service support , CC: Aislinn Espinal NP Investigator: Signed 23-Dec-2016 Chest PA and Lateral Result: Comments: See Note; NOTES: [facility] Imaging Services [address] [place] [address] Verdana 4d Chest PA and Lateral MR#: [id number] Acct: [id number] Name: HANNA CHAVEZ Rep #: [id number] : 1950 F 66 From: Juan Woody MD PCP: Aislinn Espinal Status: REG CLI Study: Chest PA and Lateral Date of Exam: 12/23/16 Exam# [id number] Ordering Dr: Danielle Manriquez MD STUDY: X-RAY [...] , Service support , CC: Aislinn Manriquez Investigator: Signed 05-Jul-2016 Discharge Instruction Result: Comments: See Note; NOTES: [facility] Medical Records Department [address] [place] [address] Discharge Instruction 07/05/162116 MR#: [id number] Acct: [id number] Name: JOSH CHAVEZ Alanis Rep #: [id number] : 1950 66 From: Sarabjit Salinas MD PCP: Aislinn Espinal Status: REG ER ED Disposition - Plan for ED Patient: Disposition: Home or Assisted Living Chief Complaint: GI Bleed Inst ructions: ED Nausea Vomiting Referrals: Asilinn Espinal [Primary Care Provider] - 1- 2 Days if not improving What to do if you have Problems For any increased pain, shortness of breath, bleeding, nausea o r vomiting, chest pain, or any unexpected problems, contact your Primary Care Provider. Call [facility] ([phone]) or report to the closest Emergency Room. Call 911 if necessary. 07/05/16 <Electronically signed by Sarabjit Salinas MD> Date Sarabjit Salinas MD Cosigner Signature (If Indicated): Date CC: Aislinn Espinal 05-Jul-2016 Emergency Department Summary Result: Comments: See Note; NOTES: [facility] Medical Records Department [address] [place] [address] Emergency Department Summary 07/05/162113 MR#: [id number] Acct: [id number] Name: HANNA CHAVEZ Alanis Rep #: [id number] : 1950 66 From: Sarabjit Salinas MD [...] your Primary Care Provider. Call [facility] ([phone]) or repor t to the closest Emergency Room. Call 911 if necessary. 07/05/162116 <Electronically signed by Sarabjit Salinas MD> Date Sarabjit Salinas MD Cos igner Signature (If Indicated): Date CC: Aislinn Espinal 16-Apr-2015 Emergency Department Summary Result: Comments: See Note; NOTES: [facility] Medical Records Department [address] [place] [address] Emergency Department Summary MR#: [id number] Acct: [id number] Name: HANNA CHAVEZ Rep #: [id number] : 1950 64 From: Breanna Ryan MD [...] 3:00 a.m. She comes in [facility] for pain control. PHYSICAL EXAMINATION: VITAL [...] Herpes zoster pain. Breanna Ryan MD T: [facility] JOB: [id number] 04/16 8638 <Electronically signed by Breanna Ryan MD> Date Breanna Ryan MD Cosigner Signature (If Indicated): Date _ CC: Carla Hughes MD Date Dictated: 04/15/15816 Date Transcribed: 04/15/15816 Investigator: Signed 15-Apr-2015 Discharge Instruction Result: Comments: See Note; NOTES: [facility] Medical Records Department [address] [facility] [place] [address] Discharge Instruction 04/15/15808 MR#: [id number] Acct: [id number] Name: HANNA CHAVEZ Rep #: [id number] : 1950 64 From: Breanna Ryan MD [...] problems, contact your doctor. Call [facility] ([phone]) or report to the closest Emergency Room. Call 911 if necessary. 04/15/15817 <Electronically signed by Breanna Ryan MD> Date rBeanna Ryan MD Cosigner Signature (If Indicated): Date CC: Carla Hughes MD 03-Dec-2014 Emergency Department Summary Result: Comments: See Note; NOTES: [facility] Medical Records Department [address] [place] [address] Emergency Department Summary MR#: [id number] Acct: [id number] Name: HANNA CHAVEZ Rep #: [id number] : 1950 64 From: Shruthi Savage DO [...] Hughes. 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 [...] condition. Shruthi Savage DO T: DANIEL JOB: [id number] 12/03/14 2329 <Electronically signed by Shruthi Savage DO> Date Thalia Savage DO CC: Carla Hughes MD Date Dictated: 11/15/141931 Date Transcribed: 11/15/141931 Investigator: Signed 16-Nov-2014 12 Lead Electrocardiogram Result: Comments: See Note; NOTES: [facility] Cardiovascular Services [address] [place] [address] 12 Lead EKG 11/15/141625 MR#: [id number] Acct: [id number] Name: HANNA CHAVEZ Rep #: [id number] : 1950 64 From: Lamont Lucas MD [...] l ECG Confirmed by LAMONT LUCAS ([id number]), senior editor LAKIA MORENO ([id number]) on 11/16/2014 10:58:54 AM Referred By: JERE Confirmed By:LAMONT LUCAS 11/16/14 1059 Date Lamont Lucas MD CC: Carla Hughes MD Date Dictated: 11/15/141625 Date Transcribed: 11/15/141625 Investigator: Signed 15-Nov-2014 Discharge Instruction Result: Comments: See Note; NOTES: [facility] Medical Records Department [address] [place] [address] Discharge Instruction 11/15/141924 MR#: [id number] Acct: [id number] Name: HANNA CHAVEZ Rep #: [id number] : 1950 64 From: Shruthi Savage DO [...] problems, contact your doctor. Call [facility] ([phone]) or report to [facility] Emergency Room. Call 911 if necessary. 11/15/141927 <Electronically signed by Shruthi Savage DO> Date Shruthi Savage DO Co signer Signature (If Indicated): Date CC: Carla Hughes MD 15-Nov-2014 CTA Chest W/WO Contrast Result: Comments: See Note; NOTES: [facility] Imaging Services [address] [place] [address] CAT Scan Report MR#: [id number] Acct: [id number] Name: HANNA CHAVEZ Rep #: [id number] : 1950 F 64 From: Chele Puckett MD PCP: Carla Hughes MD Status: REG ER Study: CTA Chest W/WO Contrast Date of Exam: 11/15/14 Exam# [id number] Ordering Dr: Shruthi Savage DO STUDY: CTA [...] MD at 19:05 EDT , Service support [phone], CC: Carla Hughes MD; Shruthi Savage DO Investigator: Signed 15-Nov-2014 Chest PA and Lateral Result: Comments: See Note; NOTES: [facility] Imaging Services [address] [place] [address] Radiology Report MR#: [id number] Acct: [id number] Name: HANNA CHAVEZ Rep #: [id number] : 1950 F 64 From: Martín Morales MD PCP: Carla Hughes MD Status: DEP ER Study: Chest PA and Lateral Date of Exam: 11/15/14 Exam# [id number] Ordering Dr: Shruthi Savage DO STUDY: X- [...] Martín Morales MD at 9:28 EDT Tel [phone], Service support [phone], 0062 RAD/Chest PA and Lateral IMPRESSION: No acute abnormality is seen. Electronically Signed: Martín Morales MD at 9:28 EDT Tel [phone], Service support [phone], CC: Carla Hughes MD; Shruthi Savage DO Investigator: Signed 29-Dec-2013 L/S Spine Min 4 Views Result: Comments: See Note; NOTES: [facility] Imaging Services [address] [place] [address] Radiology Report MR#: [id number] Acct: [id number] Name: HANNA CHAVEZ Rep #: [id number] : 1950 F 63 From: Nirmal Watts PCP: Carla Hughes MD Status: REG CLI Study: L/S Spine Min 4 Views Date of Exam: 12/29/13 Exam# [id number] Ordering Dr: Carla Hughes MD STUDY: X-RAY [...] Watts at 23:38 EDT , Service support [phone], CC: Carla Hughes MD Investigator: Signed Immunization Name Dates Details Influenza (3 years and up) on: 20-Mar-2009 Comments: Lot #[id number]-left deltoidgiven by:CDH Family History Unknown Family Member [...] m2 :31 Comments: [facility] 97.2 f Pulse 86 /min [...] Comments: Glaucoma screening done at [facility] yearly Temperature 97.9 f Pulse [...] Arm; Cuff Size: Standard Weight 195.0625 lb 91-Zzm-131361:54 Pulse 78 /min Comments: Pattern: Regular Respiration [...] Value Details :56 BNP,B-Type NATRIURETIC PEPTIDE Comments: [facility] [address] [place], [address] B-TYPE FATOUMATA PEP 147.4 pg/mL (Abnormal) Range: 0-100 :56 Magnesium Comments: [facility] [address] [place], [address] MG 2.1 mg/dL (Normal) Range: 1.6-2.6 :56 Prealbumin Comments: [facility] [address] [place], [place], [address] PREALBUMIN 19.2 mg/dL (Abnormal) Range: 20.0-40.0 :04 CBC W/Diff, Automated Comments: [facility] [address] [place], [place], [address] Absolute Lymph 1.95 {X10_3/ul} (Normal) Range: 0.83-4.51 [...] 4.2-5.4 WBC 6.5 K/mm3 (Normal) Range: 4.4-11.0 02-Fbi-870850:04 Comprehensive Metabolic Profil Comments: [facility] [address] [place], [place], [address] GAP 5 (Normal) Range: 5-15 CO2 26.0 [...] Comments: Please note revised GLUCOSE reference range crbwsznsu20/02/2018. 97-Mgr-134216:32 CBC W/Diff, Automated Comments: [facility] [address] [place], [address] Absolute Lymph 1.39 {X10_3/ul} (Normal) [...] 4.2-5.4 WBC 4.9 K/mm3 (Normal) Range: 4.4-11.0 62-Mfp-342923:32 Comprehensive Metabolic Profil Comments: Comments: [facility] [address] [place], [address] GAP 6 (Normal) Range: 5-15 [...] Comments: Please note revised GLUCOSE reference range duyfezwhz72/02/2018. 67-Nlk-563669:32 Thyroid Stim Hormone (TSH) Comments: Comments: [facility] [address] [place], [place], [address] TSH 1.47 {uIU/mL} (Normal) Range: 0.358-3.74 00-Xva-008352:51 Vitamin B12 > 2000 pg/mL (Abnormal) Comments: [facility] [address] [place], [place], [address] Range: 211-911 02-Atw-565463:11 CBC W/Diff, Automated Comments: [facility] [address] [place], [address] Absolute Lymph 1.66 {X10_3/ul} (Normal) Range: [...] 4.2-5.4 WBC 5.9 K/mm3 (Normal) Range: 4.4-11.0 91-Hpf-461392:11 Comprehensive Metabolic Profil Comments: [facility] [address] [place], [address] GAP 8 (Normal) Range: 5-15 CO2 26.0 [...] Comments: Please note revised GLUCOSE reference range pxgnahqgz01/02/2018. 55-Mkq-489058:47 Culture, Urine Comments: [facility] [address] [place], [place], [address] CUUR See Note (Normal) Comments: Urine CultureORGANISM 1: Mixed Gram Pos AND Gram Neg OrgColony Count 50,000-80,000MIX CULTURE Mixed contaminants. Submit a new specimen if indicated. 84-Tzv-214031:47 Urinalysis, Complete Comments: How was Urine Obtained? CLEAN [facility] [address] [place], [place], [address] MUCUS, URINE 0 SEEN {/hpf} (Normal) BACTERIA [...] BELOW (Normal) Comments: Visual Urine Color: GREEN 47-Dds-661862:41 TSH (65758) Comments: PATIENT NOT FASTINGPERFORMED BY: [employer]6370 [facility] [id number] TSH 2.310 {uIU/mL} (Normal) Range: 0.450-4.500 13-Yyp-116381:28 URINE DELMAR CULTURE-IDENTIFICATN Comments: PATIENT NOT FASTINGPERFORMED BY: [employer]6370 [facility] [id number] Information: SRC:UR (78810) Result 1 MUG (Normal) Comments: Mixed urogenital flora1,000 Colonies/mL Urine Culture,Comprehensive Final report (Normal) 67-Plb-603101:41 Metabolic Panel, Comprehensive Comments: PATIENT NOT FASTINGPERFORMED BY: [employer]6370 [facility] [id number] (32278) ALT (SGPT) 16 [iU]/L (Normal) Range: 0-32 [...] 8-27 Glucose 89 mg/dL (Normal) Range: 65-99 87-Ypu-075956:02 Urinalysis, Office (91208) UA - LEUKOCYTE ESTERASE Small (Normal) UA - NITRITE Negative (Normal) URINE UROBILINGN JEROME TIMED Normal mg/dL (Normal) UA - PROTEIN Negative mg/dL (Normal) UA - PH 7.5 (Normal) UA - BLOOD Negative (Normal) UA - SPECIFIC GRAVITY 1.020 (Normal) UA - KETONES Negative mg/dL (Normal) UA - BILIRUBIN Negative (Normal) UA - GLUCOSE Negative (Normal) 49-Ail-741910:54 LDH (LD) (LACTATE DEHYDROGENASE) Comments: PATIENT NOT FASTINGPERFORMED BY: [employer] [place] [id number] (73694) LDH 191 [iU]/L (Normal) Range: 119-226 13-Wah-505461:54 RHEUMATOID FACTOR-QUANT (93561) Comments: PATIENT NOT FASTINGPERFORMED BY: [employer] [place] [id number] RA Latex Turbid. <10.0 {IU/mL} (Normal) Range: 0.0-13.9 87-Fdb-943329:54 C-Reactive Protein (54588) Comments: PATIENT NOT FASTINGPERFORMED BY: [employer] [place] [id number] C-Reactive Protein, Quant 6.1 mg/L (Abnormal) Range: 0.0-4.9 45-Nbj-419345:54 SED RATE ERYTHROCYTE (01318) Comments: PATIENT NOT FASTINGPERFORMED BY: [facility] [address]397 [facility] [id number] Sedimentation Rate-Westergren 16 mm/h (Normal) Range: 0-40 7-Sid-994348:40 CPK Total, Creatine Kinase Comments: 48[facility] [address] [place], [place], [address] CPK TOTAL 68 U/L (Normal) Range: 26-192 29-Wkq-130308:12 Culture, Urine Comments: [facility] [address] [place], [place], [address] CUUR See Note (Normal) Comments: Urine CultureORGANISM [...] $ <=20 S(NF) indicates non-formulary drug at [facility]. Approval by Infectious Disease Specialist required before non- formulary drugs may be ordered and/or dispensed. 59-Mkr-203876:12 Urinalysis, Routine (Dipstick) Comments: How was Urine Obtained? CLEAN [facility] [address] [place], [place], [address] LEUK ESTERASE 500 /ul (Abnormal) OCCULT BLOOD-UR 50 /ul (Abnormal) NITRITE UR Positive (Abnormal) UROBILI Normal mg/dL (Normal) PROT DIPSTX 100 mg/dL (Abnormal) pH UR 6.0 (Normal) Range: 5.0 - 8.0 SP.GR. DIPSTX 1.025 (Normal) Range: 1.002-1.030 KETONE UR Negative mg/dL (Normal) BILIRUBIN URINE Negative mg/dL (Normal) GLUCOSE, UR Normal mg/dL (Normal) CLARITY Cloudy (Normal) COLOR Yellow (Normal) 40-Jpo-733506:15 CBC W/Diff, Automated Comments: [facility] [address] [place], [address] Absolute Lymph 1.50 {X10_3/ul} (Normal) Range: 0.83-4.51 [...] 4.2-5.4 WBC 4.6 K/mm3 (Normal) Range: 4.4-11.0 67-Gnv-564939:15 Comprehensive Metabolic Profil Comments: [facility] [address] [place], [place], [address] GAP 7 (Normal) Range: 5-15 CO2 28.0 mmol/L (Normal) Range: 21.0-32.0 CL 106 mmol/L (Normal) Range: 98-107 K 3.6 mmol/L (Normal) Range: 3.5-5.1 NA 141 mmol/L (Normal) Range: 136-145 T BILI 0.60 mg/dL (Normal) Range: 0.20-1.00 ALT 27 U/L (Normal) Range: 13-56 Comments: Please note revised ALT reference range yagzaugkd95/28/2018. ALK P 68 U/L (Normal) Range: 45-117 [...] A.D.A. criteria.Please note revised GLUCOSE reference range uuqmxavnm00/02/2018. 0-Psi-673665:59 CPK Total, Creatine Kinase Comments: [facility] [address] [place], [place], [address] CPK TOTAL 55 U/L (Normal) Range: 26-192 3-Imc-569003:59 GGTP 140 U/L (Abnormal) Comments: [facility] [address] [place], [address] Range: 5-55 :50 CBC W/Diff, Automated Comments: [address] [place], [address] Absolute Lymph 1.40 {X10_3/ul} (Normal) Range: [...] Range: 4.4-11.0 :50 Comprehensive Metabolic Profil Comments: [facility] [address] [place], [address] GAP 7 (Normal) Range: 5-15 CO2 28.0 [...] <126 mg/dLsuggests IMPAIRED HOMEOSTASIS per A.D.A. criteria. 78-Sqi-777353:00 CBC W/Diff, Automated Comments: [facility] [address] [facility]. [place], [place], [address] ; Dr Fiore Absolute Lymph 1.66 {X10_3/ul} [...] 4.2-5.4 WBC 5.2 K/mm3 (Normal) Range: 4.4-11.0 38-Sxt-337288:00 Comprehensive Metabolic Profil Comments: [facility] [address] [place], [place], [address] GAP 5 (Normal) Range: 5-15 CO2 27.0 [...] 7-18 GLU 106 mg/dL (Normal) Range: 70-110 91-Kyc-357173:00 CBC W/Diff, Automated Comments: [facility] [address] [place], [address] ; rheum Absolute Lymph 1.83 {X10_3/ul} (Normal) [...] 4.2-5.4 WBC 5.8 K/mm3 (Normal) Range: 4.4-11.0 50-Nvr-236955:00 Comprehensive Metabolic Profil Comments: [facility] [address] [place], [place], [address] ; Dr moreno GAP 7 (Normal) Range: [...] 7-18 GLU 98 mg/dL (Normal) Range: 70-110 32-Ocx-517566:39 CBC W/Diff, Automated Comments: [facility] [address] [place], [place], [address] SMEAR COMMENT SCANNED (Normal) Absolute Lymph 0.54 [...] 4.2-5.4 WBC 11.4 K/mm3 (Abnormal) Range: 4.4-11.0 59-Czw-360558:39 Comprehensive Metabolic Profil Comments: [facility] [address] [place], [place], [address] GAP 10 (Normal) Range: 5-15 CO2 23.0 [...] 126 mg/dLsuggests DIABETES MELLITUS per A.D.A. criteria. 74-Fmn-352093:39 Lipase Comments: [facility] [address] [place], [place], [address] LIPASE 86 U/L (Normal) Range: 73-393 23-Apr-20167:01 Pap IG (Image Comments: Source.............Cervix;EndocervixNo. of containers..01 CYTYC Thin Prep VialPATIENT NOT FASTINGPERFORMED BY: =G [facility] Gv[address]addsud[address] [place] [facility] W [id number] BY: Glow Guided) Chrissie [facility] [facility] W [id number] Note: PAPSMR (Normal) Comments: The Pap smear [...] Prep VialPATIENT NOT FASTINGPERFORMED BY: =G [facility] Yqkzaovbzj985 [facility] HospitalSeema[facility] [id number] BY: Glow (79635) (no STD R[address] [place] [facility]anaeS[facility] HospitalnetoJeff[facility] Health [id number] Information: [id number]; ov in 2 weeks testing) Age Gdln ACOG Testing AGE4 (Normal) Comments: <21 or >65 or no age provided :55 CBC W/Diff, Automated Comments: [facility] [address] [place], [address] Absolute Lymph 1.88 {X10_3/ul} (Normal) [...] 4.2-5.4 WBC 5.7 K/mm3 (Normal) Range: 4.4-11.0 51-Aot-851618:55 Comprehensive Metabolic Profil Comments: [facility] [address], [place], [id number] GAP 7 (Normal) Range: 5-15 CO2 28.0 [...] 7-18 GLU 84 mg/dL (Normal) Range: 70-110 76-Tnk-038690:52 CBC W/Diff, Automated Comments: [facility] [address] [place], [address] Absolute Lymph 1.74 {X10_3/ul} (Normal) Range: 0.83-4.51 [...] Range: 4.4-11.0 :52 Comprehensive Metabolic Profil Comments: [facility] [address] [place], [place], [address] GAP 6 (Normal) Range: 5-15 CO2 29.0 [...] Range: 70-110 :52 Vitamin D,25 Hydroxy Comments: [facility] [address] [place], [place], [id number] Vitamin D 25-OH 23.6 ng/mL (Normal) Comments: Vitamin D 25(OH) Status Range Deficiency <20 ng/mL (50nmol/L) Insuffciency 20 - 30 ng/mL (50 - 75 nmol/L) Sufficiency 30 - 100 ng/mL (75 - 250 nmol/L) Toxicity >100 ng/mL (>250 nmol/L) 24-Zgz-888567:34 URINE DELMAR CULTURE-JEROME COL Comments: PATIENT NOT FASTINGPERFORMED BY: [facility] Okyovm3452 [facility] [id number] Information: SRC:[facility] [id number] COUNT ([id number]) Result 1 MUG (Normal) Comments: Mixed urogenital floraGreater than 100,000 colony forming units per mL Urine Culture,Comprehensive Final report (Normal) 88-Fjl-371966:21 Urinalysis, Office (22829) UA - LEUKOCYTE ESTERASE Trace (Normal) UA - NITRITE Negative (Normal) URINE UROBILINGN JEROME TIMED Normal mg/dL (Normal) UA - PROTEIN Negative mg/dL (Normal) UA - PH 6.0 (Normal) Comments: 5.5 UA - BLOOD Negative (Normal) UA - SPECIFIC GRAVITY 1.030 (Abnormal) UA - KETONES Negative mg/dL (Normal) UA - BILIRUBIN Negative (Normal) UA - GLUCOSE Negative (Normal) 31-Mig-988322:10 CBC W/Diff, Automated Comments: [facility] [address] [place], [address] Absolute Lymph 1.44 {X10_3/ul} (Normal) [...] 4.2-5.4 WBC 4.3 K/mm3 (Abnormal) Range: 4.4-11.0 58-Zjk-083575:10 Comprehensive Metabolic Profil Comments: [facility] [address] [place], [address] GAP 3 (Abnormal) Range: 5-15 CO2 28.0 [...] 126 mg/dLsuggests DIABETES MELLITUS per A.D.A. criteria. 19-Bxc-492737:10 Vitamin D,25 Hydroxy Comments: [facility] [address] [facility] [address] [place], [place], [address] Vitamin D 25-OH 20.8 ng/mL (Normal) Comments: Vitamin D 25(OH) Status Range Deficiency <20 ng/mL (50nmol/L) Insuffciency 20 - 30 ng/mL (50 - 75 nmol/L) Sufficiency 30 - 100 ng/mL (75 - 250 nmol/L) Toxicity >100 ng/mL (>250 nmol/L) 78-Lyh-603571:16 CBC W/Diff, Automated Comments: [facility] [address] [facility] [address] [place], [place], [id number] ; ordered by another doctor Absolute Lymph [...] 4.2-5.4 WBC 5.1 K/mm3 (Normal) Range: 4.4-11.0 59-Sas-890469:16 Comprehensive Metabolic Profil Comments: [facility] [address] [place], [place], [id number] ; ordered by another doctor GAP 7 [...] 7-18 GLU 87 mg/dL (Normal) Range: 70-110 75-Giu-242883:16 Vitamin D,25 Hydroxy Comments: [facility] [address] [place], [place], [address] ; ordered by another doctor Vitamin D 25-OH 33.2 ng/mL (Normal) Comments: Vitamin D 25(OH) Status Range Deficiency <20 ng/mL (50nmol/L) Insuffciency 20 - 30 ng/mL (50 - 75 nmol/L) Sufficiency 30 - 100 ng/mL (75 - 250 nmol/L) Toxicity >100 ng/mL (>250 nmol/L) 2-Ize-070749:22 CBC W/Diff, Automated Comments: [facility] [address] [place], [place], [address] Absolute Lymph 1.19 {X10_3/ul} (Normal) Range: 0.83-4.51 [...] 4.2-5.4 WBC 4.6 K/mm3 (Normal) Range: 4.4-11.0 4-Poc-516544:22 Comprehensive Metabolic Profil Comments: [facility] [address] [place], [place], [id number] GAP 3 (Abnormal) Range: 5-15 CO2 29.0 [...] 7-18 GLU 100 mg/dL (Normal) Range: 70-110 7-Fbp-584597:22 Lipid Profile Comments: [facility] [address] [place], [address] VLDL 16 mg/dL (Normal) Range: [...] 200-240 mg/dL Borderline >240 mg/dL High Risk 1-Gic-935706:22 Thyroid Stim Hormone (TSH) Comments: [facility] [address] [facility], [address] TSH 1.39 {uIU/mL} (Normal) Range: 0.358-3.74 38-Xmi-660253:30 CBC W/Diff, Automated Comments: Comments: IVT TO DRAW OFF [facility] pt arrived? YTest performed at:[facility] [address]qh[address] [facility] [address] Absolute Lymph 1.56 {X10_3/ul} (Normal) [...] 4.2-5.4 WBC 4.7 K/mm3 (Normal) Range: 4.4-11.0 94-Xkf-458314:30 Comprehensive Metabolic Profil Comments: Has pt arrived? YComments: IVT TO DRAW FROM PORTTest performed at:[facility] [address], [place] [address] GAP 8 (Normal) Range: 5-15 CO2 27.0 [...] Comments: Please note revised CREATININE reference range pzxfvsoln43/22/2015. BUN 21 mg/dL (Abnormal) Range: 7-18 GLU 133 mg/dL (Abnormal) Range: 70-110 Comments: Fasting Glucose result greater than or equal to 126 mg/dLsuggests DIABETES MELLITUS per A.D.A. criteria. 42-Xfy-498229:30 Vitamin D,25 Hydroxy Comments: Has pt arrived? YTest performed at:[facility] [address]pjzwcew[address] [facility] [place] [address] Vitamin D 25-OH 22.5 ng/mL (Normal) Comments: Vitamin D 25(OH) Status Range Deficiency <20 ng/mL (50nmol/L) Insuffciency 20 - 30 ng/mL (50 - 75 nmol/L) Sufficiency 30 - 100 ng/mL (75 - 250 nmol/L) Toxicity >100 ng/mL (>250 nmol/L) 69-Ezk-772392:42 D-Dimer Quantitative (DVT/PE) Comments: Test performed at:[facility] F[address]akkdtj[address] [facility] [place] [address] D-DIMER QUANT 0.54 {FEU/ug/m} (Abnormal) Range: 0.27-0.49 Comments: D-Dimer ELEVATED (>0.49): Additional studies and clinicalassessments are indicated to conclude diagnosis of:Deep Vein Thrombosis (DVT) or Pulmonary Embolism (PE)CRITICAL VALUE CALLED TO [address] 02/02 Ashish Griffin.RESULTS READ BACK BY SAME . 97-Yyp-307516:39 Lipase Comments: Test performed at:[facility] [address]aq[address] [facility] [place] [address] LIPASE 96 U/L (Normal) Range: 70-290 10-Fsc-561314:22 BNP,B-Type NATRIURETIC PEPTIDE Comments: Test performed at:[facility] [address]iz[address] [facility] [place] [address] B-TYPE FATOUMATA PEP 124.8 pg/mL (Abnormal) Range: 0-100 52-Qvh-357078:22 CBC W/Diff, Automated Comments: Test performed at:[facility] [address]ukr[address] [place] [address] Absolute Lymph 2.09 {X10_3/ul} (Normal) [...] 4.2-5.4 WBC 5.9 K/mm3 (Normal) Range: 4.4-11.0 48-Snr-532995:22 CK-MB Quantitative and Index Comments: Test performed at:[facility] I[address]okuexft2442 [facility] [place] [address] CPKMB 0.7 ng/mL (Normal) Range: 0.0-5.0 Comments: CK-MB and RI Interpretation MB Relative Index Non-AMI <or= 5 NA Indeterminate > 5 <or= 4 AMI > 5 > 4 CPK TOTAL 97 U/L (Normal) Range: 26-192 41-Ofx-048679:22 Comprehensive Metabolic Profil Comments: 'TROP' Serial specimen #1, #2, #3, or #4: 1Test performed at:[facility] [address]owkr[address] [facility] [place] [address] GAP 9 (Normal) Range: 5-15 [...] 126 mg/dLsuggests DIABETES MELLITUS per A.D.A. criteria. 12-Nwl-599318:22 Troponin-I Comments: 'TROP' Serial specimen #1, #2, #3, or #4: 1Test performed at:[facility] [address] [place], [place] [address] TROPONIN-I < 0.02 ng/mL (Normal) Comments: TROPONIN-I EXPECTED VALUES <0.05 NEGATIVE 0.06 - 0.59 AT RISK OF DE > OR = 0.60 SUGGEST DE 65-Uda-311779:20 Urinalysis, Complete Comments: Order Date: 11/15/14How was Urine Obtained? CLEAN CATCHTest performed at:[facility] [address] [place] [address] AMORPHOUS 1+ PHOS (Normal) MUCUS, [...] CLARITY Sl. Cloudy (Normal) COLOR Yellow (Normal) 89-Rxc-978372:00 CBC W/Diff, Automated Comments: Comments: IVT TO DRAWTest performed at:[facility] [address] [place] [address] Absolute Lymph 1.62 {X10_3/ul} (Normal) [...] 4.2-5.4 WBC 5.8 K/mm3 (Normal) Range: 4.4-11.0 50-Afx-212663:00 Comprehensive Metabolic Profil Comments: Comments: IVT TO DRAWTest performed at:[facility] [address] [place] [address] GAP 4 (Abnormal) Range: 5-15 CO2 27.0 [...] 126 mg/dLsuggests DIABETES MELLITUS per A.D.A. criteria. 29-Fru-060455:25 CBC W/Diff, Automated Comments: Test performed at:[facility] [address] [place] [address] Absolute Lymph 1.28 {X10_3/ul} (Normal) Range: 0.83-4.51 [...] 4.2-5.4 WBC 5.0 K/mm3 (Normal) Range: 4.4-11.0 44-Arb-226070:25 Comprehensive Metabolic Profil Comments: Test performed at:[facility] [address] [place], [place] [address] GAP 4 (Abnormal) Range: 5-15 CO2 29.0 [...] 7-18 GLU 100 mg/dL (Normal) Range: 70-110 07-Viv-470885:21 URINE DELMAR CULTURE-JEROME COL Comments: PATIENT NOT FASTINGPERFORMED BY: [facility] CampusIqaiel9448 [facility] [id number] Information: SRC:UR [id number] COUNT (49502) Result 1 MUG (Normal) Comments: Mixed urogenital flora1,000 Colonies/mL Urine Culture,Comprehensive Final report (Normal) 95-Rnx-741061:35 Urinalysis, Office (43770) UA - LEUKOCYTE ESTERASE Trace (Normal) UA - NITRITE Negative (Normal) URINE UROBILINGN JEROME TIMED Normal mg/dL (Normal) UA - PROTEIN Negative mg/dL (Normal) UA - PH 6.0 (Normal) Comments: 5.5 UA - BLOOD Negative (Normal) UA - SPECIFIC GRAVITY 1.030 (Abnormal) UA - KETONES Negative mg/dL (Normal) UA - BILIRUBIN Negative (Normal) UA - GLUCOSE Negative (Normal) 9-Pge-382001:15 CBCD ALC 1.51 {X10_3/ul} (Normal) Range: 0.83-4.51 [...] 4.2-5.4 WBC 5.7 K/mm3 (Normal) Range: 4.4-11.0 3-Mez-723017:15 CMP Comments: Comments: FAX RESULTS TO DR. [...] or Folic Acid Supplements? N Range: 3.1-17.5 4-Jgw-906634:01 Urinalysis, Office (81875) UA - LEUKOCYTE ESTERASE Negative (Normal) UA - NITRITE Negative (Normal) URINE UROBILINGN JEROME TIMED Normal mg/dL (Normal) UA - PROTEIN Negative mg/dL (Normal) UA - PH 5 (Abnormal) UA - BLOOD Negative (Normal) UA - SPECIFIC GRAVITY 1.025 (Normal) UA - KETONES Negative mg/dL (Normal) UA - BILIRUBIN Negative (Normal) UA - GLUCOSE Negative (Normal) 5-Gqw-981751:52 CBCD ALC 1.26 {X10_3/ul} (Normal) Range: 0.83-4.51 [...] 4.2-5.4 WBC 4.2 K/mm3 (Abnormal) Range: 4.4-11.0 2-Xfb-827926:52 CMP Comments: SED RATE ADD ON BLOOD [...] 126 mg/dLsuggests DIABETES MELLITUS per A.D.A. criteria. 4-Ihd-078934:52 SED tSEDRATE 32 mm/h (Abnormal) Range: 0-30 :21 iPBE 0 mmol/L (Normal) :21 iPCO2 40.0 {mmHg} (Normal) Range: 35-45 :21 iPH 7.41 (Normal) Range: 7.35-7.45 :21 iPO2 83 {mmHG} (Normal) Range: 75-100 :21 iTCO2 26 mmol/L (Normal) :21 iTHCO3 25 mmol/L (Normal) Range: 22-26 Comments: Site = L BrachialAllens Test = POSDevice = Room AirResults To = OTHERTime Given = 915 :21 rIX2GTO 96 % (Normal) Range: 95-99 :21 iTYPE ART (Normal) 6-Xip-672039:37 Rapid Flu (06927 x 2) Comments: neg Influenza A Ag negative a and b (Normal) 8-Yjd-487026:59 Influenza A&B Viral Comments: neg; PATIENT NOT FASTINGPERFORMED BY: [facility] Cradqv9896 [facility] [id number] Information: SRC:NOS [id number] Culture (93992) Viral Culture,Rapid,Influenza FLUABN (Normal) Comments: Negative:No Influenza [...] 7-18 GLU 87 mg/dL (Normal) Range: 70-110 3-Zvi-556512:05 FOL 22.20 ng/mL (Abnormal) Comments: COMMENTS: FAX RESULTS TO AISLINN SCOTT DRAW Range: 3.1-17.5 :08 CALCIFEDIOL (42747) Comments: PATIENT NOT FASTINGPERFORMED BY: [facility] CampusCgajdf7609 [facility] [id number] Information: [id number] Vitamin D, 25-Hydroxy 47.6 ng/mL (Normal) Range: 30.0-100.0 Comments: Vitamin D deficiency has been defined by the [place] of[place] and an Endocrine Society practice guideline as alevel of serum 25-OH vitamin D less than 20 ng/mL (1,2).The Endocrine Society went on to further define vitamin Dinsufficiency as a level between 21 and 29 ng/mL (2).1. IOM ([place] of [employer]). 2010. Dietary reference intakes for calcium and D. [place]: The National Academies Press.2. Stacia MF, Mago MONTE, Mleiza MAGDALENO, et al. Evaluation, treatment, and prevention [...] Morales M.D.May 04 012 at 2:58:08 PM [id number] Signed GP/GP If you are the referring physician and would like to consult with theradiologist who provided this interpretation, please contact Valdo bettencourt M.D. at [phone]. If this radiologist is unavailable, youwill be directed to another radiologist to assist. If you are a patient with a question regarding this report, pleasecontactyour refe rring physician directly. Professional Interpretation Provided By: [employer], Phone , These documents contain legally protected [...] D deficiency has been defined by the [place] of[place] and an Endocrine Society practice guideline as alevel of serum 25-OH vitamin D less than 20 ng/mL (1,2).The Endocrine Society went on to further define vitamin Dinsufficiency as a level between 21 and 29 ng/mL (2).1. IOM ([place] [employer]). 2010. Dietary reference intakes for calcium and D. [place]: The National Academies Press.2. Stacia MF, Mago [place], Evelyn-Nitish MAGDALENO, et al. Evaluation, treatment, and prevention of vitamin D deficiency: an Endocrine Society clinical practice guideline. JCEM. 2010; 96(7): 1911-30.Performed at: [address] [id number] Director: Meeta Hickman MD, Phone: [phone] 17-Dzx-591627:44 LIPID VLDL 14 mg/dL (Normal) Range: 5-40 [...] 200-240 mg/dL Borderline >240 mg/dL High Risk 93-Jib-155343:35 Urinalysis, Office (90190) UA - BILIRUBIN Small (Normal) UA - BLOOD Negative (Normal) UA - GLUCOSE Negative (Normal) UA - KETONES Small mg/dL (Normal) Comments: trace UA - LEUKOCYTE ESTERASE Negative (Normal) UA - NITRITE Negative (Normal) UA - PH 5.0 (Normal) UA - PROTEIN Trace mg/dL (Normal) UA - SPECIFIC GRAVITY 1.025 (Normal) URINE UROBILINGN JEROME TIMED Normal mg/dL (Normal) 89-Vbt-833184:07 CBC with manual diff Comments: PATIENT NOT FASTINGPERFORMED BY: [facility] CampusYneqqq6469 [facility] [id number] Information: [id number] (14230) Immature Grans (Abs) 0.0 {x10E3/uL} (Normal) Range: [...] 3.80-5.10 WBC 5.6 {x10E3/uL} (Normal) Range: 4.0-10.5 40-Ato-906968:07 Metabolic Panel, Comprehensive Comments: PATIENT NOT FASTINGPERFORMED BY: [facility] CampusChumfk2184 [facility] [id number] (70510) Alkaline Phosphatase, S 50 [iU]/L (Normal) Range: [...] Glucose, Serum 97 mg/dL (Normal) Range: 65-99 96-Tje-03122:00 SPINE, CERVICAL (ROUTINE) Radiology See Note Comments: [...] Key 06/18/101755 Sign by: Lee Ann Key 25-Abz-872812:49 RENAL CO2 28.0 mmol/L (Normal) Range: 21.0-32.0 [...] 0.6-1.0 GLU 102 mg/dL (Normal) Range: 70-110 80-Czr-98381:00 CERV SPINE,MIN 4 VIEWS Radiology Report See [...] on 06/09/10 0855 Sign by: Alena Worley 79-Gkq-040721:55 CALCIFEDIOL (34445) Comments: PATIENT NOT FASTINGPERFORMED BY: [facility] CampusWkulig6741 [facility] [id number] Information: [id number] Vitamin D, 25-Hydroxy 36.1 ng/mL (Normal) Range: [...] (Normal) GLU 82 mg/dL (Normal) Range: 70-110 05-Nkq-505581:33 ALDOLASE 2030 4.7 U/L (Normal) Range: 1.2-7.6 Comments: Performed at: [address] [id number] Director: Meeta Hickman MD 46-Rvi-768893:33 CBCD ABSOLUTE NEUT 2.6 3/uL (Normal) Range: [...] 11.6-14.6 WBC 4.9 K/mm3 (Normal) Range: 4.4-11.0 71-Czv-274122:33 COMP METABOLIC Comments: LIVER TEST TO CL [...] 6.4-8.2 GLU 95 mg/dL (Normal) Range: 70-110 39-Pke-064191:33 CPK TOTAL 37 U/L (Normal) Comments: LIVER TEST TO Range: 21-215 74-Rte-180500:33 D BILI 0.12 mg/dL (Normal) Comments: LIVER TEST TO Range: 0.00-0.30 34-Bxo-639413:46 COMPLETE UA BACTERIA RARE {/hpf} (Normal) MUCUS, [...] 1.002-1.030 CLARITY CLEAR (Normal) COLOR YELLOW (Normal) 83-Nmu-555818:46 CPK ISO 2154 CK-BB 0 % (Normal) Comments: Performed at: [place] [id number] Director: Meeta Hickman MD CK-MB 0 % (Normal) Range: 0-3 CK-MM 100 % (Normal) Range: 97-100 Macro I 0 % (Normal) Macro II 0 % (Normal) CPK,TOTAL,SERUM 59 U/L (Normal) Range: 24-173 :46 PTH,Intact 57 pg/mL (Normal) Range: 14-72 :46 TSH 1.06 {uIU/mL} (Normal) Range: 0.358-3.74 :29 ALDOLASE 2030 9.1 U/L (Abnormal) Range: 1.2-7.6 Comments: Performed at: [address] [id number] Director: Saul Cuadra MD 18-Vqz-652391:29 COMP METABOLIC CL 103 mmol/L (Normal) Range: [...] CPK TOTAL 356 U/L (Abnormal) Range: 21-215 17-Tid-953967:29 [facility] LAB TEST . (Normal) Comments: MYOGLOBIN, SERUM 121 H ng/mL 25 - 58 TESTING PERFORMED AT [facility]. ORIGINAL REPORT ONFILE IN LAB CONTAINS [...] U/L (Abnormal) Range: 1.2-7.6 Comments: Performed at: [address] [id number] Director: Saul Cuadra MD :03 CKMB CKRI [...] 4.2-5.4 WBC 4.1 K/mm3 (Abnormal) Range: 4.4-11.0 45-Ema-504218:18 COMP METABOLIC CL 104 mmol/L (Normal) Range: [...] 0.6-1.0 GLU 109 mg/dL (Normal) Range: 70-110 95-Ply-064804:10 Rapid Strep Test, Office (66849) Rapid Strep Test, Office Negative (Normal) 4-Ync-545761:56 CALCIFEDIOL (45583) Comments: PATIENT NOT FASTINGPERFORMED BY: [facility] CampusCgxhgf1988 [facility] [id number] Information: [id number] Vitamin D, 25-Hydroxy 19.7 ng/mL (Abnormal) Range: 32.0-100.0 Comments: Recent studies consider the lower limit of 32.0 ng/mL to be athreshold for optimal health.Froylan BHAKTA. J Nutr. 2004;135(2):317-22. 14-Fdh-474949:10 ABDOMEN/PELVIS WITH CONTRAST Radiology Report See Note (Normal) Comments: Exam Number: [id number] CLINICAL:58 year old woman with abnormal blood [...] surgically absent. Reported By: LOREN MALCOLM M.D. 30-Ify-250953:15 TRANSVAGINAL NON-PREG US () Radiology Report See Note (Normal) Comments: Exam Number: [id number] CLINICAL:58-year-old female post menopausal with positive beta-hCG [...] weeks recommended. Reported By: WILLIE BOLIVAR M.D. 60-Byb-250663:55 PELVIC (NON-PREG) () Radiology Report See Note (Normal) Comments: Exam Number: [id number] CLINICAL:58-year-old female post menopausal with positive beta-hCG [...] HCGUQUAL SeeNote m[iU]/mL (Normal) Comments: Result: Negative 30-Lzj-010236:17 DELMAR CULTURE-OTHER (46116) Comments: PATIENT NOT FASTINGClinical Information: SRC:THRT ADD [id number] PERFORMED BY: [facility]6370 [facility] [id number] Result 1 RRF (Normal) Comments: Routine respiratory gabriella Upper Respiratory Culture Final report (Normal) 10-Qwc-462288:03 LQD PAP [id number] Comments: CYTOLOGY INFORMATION:- CLINICAL INFORMATION: - DATE LMP/MENOPAUSE: 1998 LMP- COLLECTION VIAL: Thin Prep Vial- POLICE COMMISSIONER SOURCE: CERVICAL/ENDOCERVICAL- COLLECTION TECHNIQUE: BRUSH/SPATULA ADEQ Comment (Normal) Comments: Satisfactory for evaluation. Endocervical and/or squamous metaplasticcells (endocervical component) are present. COMM . (Normal) DIAGN Comment (Normal) Comments: NEGATIVE FOR INTRAEPITHELIAL LESION AND MALIGNANCY. HPV RFLX Comment (Normal) Comments: The HPV DNA reflex criteria were not met with this specimenresult therefore, no HPV testing was performed. .Performed At: [address] [id number] PAPSMR Comment (Normal) Comments: The Pap smear is a screening test designed to aid in thedetection of premalignant and malignant conditions of theuterine cervix. It is not a diagnostic procedure andshould not be used as the sole means of detecting cervicalcancer. Both false-positive and false-negative reports dooccur. . PERFORM Comment (Normal) Comments: Ashwin Blanc, Bone Drier (ASCP) 71-Xml-748158:52 Microscopic Examination Comments: PATIENT WAS FASTINGPERFORMED BY: Vhoto70 [facility] [id number] Bacteria Few (Normal) Epithelial Cells (non renal) None seen {/hpf} (Normal) Range: 0 - 10 RBC None seen {/hpf} (Normal) Range: 0 - 3 WBC 0-5 {/hpf} (Normal) Range: 0 - 5 53-Cer-161313:52 MICROALBUMIN: CREATININE RATIO Comments: PATIENT WAS FASTINGPERFORMED BY: Vhoto70 [facility]iderNov[facility] [id number] (79070) AND (33822) Creatinine, Urine 353.6 mg/dL (Abnormal) Range: 15.0-278.0 Microalb/Creat Ratio 5.4 {ug/mg_creat} (Normal) Range: 0.0-30.0 Microalbumin, Urine 19.2 ug/mL (Abnormal) Range: 0.0-17.0 65-Vtp-685884:52 URINALYSIS (58285) Comments: PATIENT WAS FASTINGPERFORMED BY: Vhoto70 [facility] [id number] Appearance Clear (Normal) Bilirubin Negative (Normal) Glucose Negative (Normal) Ketones Negative (Normal) Microscopic Examination See below: (Normal) Nitrite, Urine Negative (Normal) Occult Blood Negative (Normal) pH 8.0 (Abnormal) Range: 5.0-7.5 Protein 1+ (Abnormal) Specific [place] 1.010 (Normal) Range: 1.005-1.030 Urine-Color Yellow (Normal) Urobilinogen,Semi-Qn 0.2 mg/dL (Normal) Range: 0.0-1.9 WBC Esterase Negative (Normal) 01-Uzn-207060:52 Metabolic Panel, Comprehensive Comments: PATIENT WAS FASTINGPERFORMED BY: [facility] Fsrrfi0737 [facility] [id number] (47241) A/G Ratio 1.6 (Normal) Range: 1.1-2.5 Albumin, [...] Sodium, Serum 144 mmol/L (Normal) Range: 135-145 34-Wmz-527168:52 Lipid Panel (74541) Comments: PATIENT WAS FASTINGPERFORMED BY: [facility] CampusPmiwrm0828 [facility] [id number] Cholesterol, Total 237 mg/dL (Abnormal) Range: 100-199 [...] Cholesterol García 19 mg/dL (Normal) Range: 5-40 59-Ndq-505494:52 CBC with manual diff (49345) Comments: PATIENT WAS FASTINGClinical Information: ADD DARW FEE [id number] ADD J 01901 PERFORMED BY: HIREN [facility] Fqnyvp0907 [facility] [id number] Baso (Absolute) 0.1 {x10E3/uL} (Normal) Range: 0.0-0.2 [...] : Follow up in 3 months with [facility] Indication: Insomnia Vitamin D deficiency, unspecified [...] pain : Follow up on Wednesday with [facility] Indication: Back pain Carnitine deficiency [...] : FOLLOW UP IN 3 MONTHS with [facility] Indication: Unspecified inflammatory polyarthropathy Vitamin D deficiency, [...] Indication: DEPRESSIVE DISORDER (311.0) Planned Observations PREALBUMIN (05873)Indication: Malnutrition On: 04-Oct-914141:05 Request MAGNESIUM (17834)Indication: Hypocalcemia On: 32-Jlb-904337:05 Request BNTP (67626)Indication: Leg swelling On: 03-Ztm-575401:59 Request TSH (66032)Indication: Leg pain On: :42 Request CBC, Platelets & Auto Diff (05140)Indication: Leg pain On: :42 Request Metabolic Panel, Comprehensive (07313)Indication: Leg pain On: :42 Request Vitamin B-12 (cyanocobalamin) (31634)Indication: B12 deficiency On: 70-Emf-853757:55 Request CPK TOTAL & ISOENZYMES (63012)Indication: Pain in unspecified joint On: 99-Rrh-638950:03 Request URINE DELMAR CULTURE-IDENTIFICATN (59758)Indication: Dysuria On: 62-Jbj-383725:16 Request URINALYSIS (72437)Indication: Dysuria On: 62-Ieg-627268:16 Request CALCIFEDIOL (09505)Indication: Postmenopausal (Renamed from Postmenopausal status) On: 4-Quk-123431:50 Request HPV automatic (16869)Indication: Screening for HPV (human papillomavirus) (Renamed from Encounter for screening for human papillomavirus (HPV)) On: 7-Cbt-195770:49 Request Metabolic Panel, Comprehensive ([id number])Indication: DM (diabetes mellitus screen) On: :24 Request TSH ([id number])Indication: Screening for deficiency anemia On: :23 Request CBC, Platelets & Auto Diff (34497)Indication: Screening for deficiency anemia On: 74-Eaz-753985:23 Request Lipid Panel (83504)Indication: Screening for hyperlipidemia On: :23 Request VITAMIN B12 AND FOLATES ([id number])Indication: Leg pain On: 4-Qcr-677362:27 Request HEPATIC FUNCTION PANEL ([id number])Indication: Hypercholesteremia On: :15 Request CBC with manual diff ([id number])Indication: Carnitine deficiency On: 31-Bbz-587059:10 Request Metabolic Panel, Comprehensive (58977)Indication: Arthritis On: 14-Del-393364:10 Request LIPID PANEL (23425)Indication: Hypercholesteremia On: :10 Request CBC (AUTO) ([id number])Indication: FATIGUE On: :24 Request METABOLIC PANEL, COMPREHENSIVE (22634)Indication: FATIGUE On: :24 Request Folate (60400)Indication: FATIGUE On: :24 Request VITAMIN B-12 (CYANOCOBALAMIN) (11337)Indication: FATIGUE On: :24 Request TSH (30444)Indication: DEPRESSIVE DISORDER (311.0) On: 43-Rvn-360425:16 Request CBC with manual diff ([id number])Indication: Myopathy NOS On: 1-Aew-169305:03 Request Metabolic Panel, Comprehensive (22363)Indication: DEPRESSIVE DISORDER (311.0) On: 9-Xvo-686504:03 Request Lipid Panel (94868)Indication: Hypercholesteremia On: 3-Wus-696616:03 Request CALCIFEDIOL (23779)Indication: Vitamin D deficiency, unspecified On: 8-Mcx-468111:02 Request Renal function Panel (97045)Indication: Neck pain On: 30-Qce-694881:14 Request CALCIFEDIOL (96742)Indication: Vitamin D deficiency, unspecified On: 26-Jun-20099:26 Request Comments: draw Beginning September 2009 TEST - SERUM QUANTITATIVE (HCG) (59160)Indication: Abnormal blood chemistry On: 32-Och-001633:06 Request PREGNACY TEST, URINE (58069)Indication: Abnormal blood chemistry On: 92-Ilu-831468:06 Request Lipid Panel (48843)Indication: Hypercholesteremia On: 91-Rcy-117648:16 Request Comments: fasting Rapid Strep Test, Office ([id number])Indication: Pharyngitis, acute On: 11-Iwz-562739:04 Request Thin prep Pap (32186)Indication: Well woman exam On: 30-Xzl-698236:09 Request FECAL OCCULT HGB ASSAY- tubes sent home (78021)Indication: Well woman exam On: 86-Pri-196229:54 Request OCCULT BLOOD FECES SCREEN- card done in office (41854)Indication: Well woman exam On: 91-Fbn-827920:54 Request CPK TOTAL & ISOENZYMES ([id number])Indication: Myalgia and myositis On: 37-Rps-962227:37 Request CALCIFEDIOL (21878)Indication: Leg cramps On: 46-Hhw-599579:36 Request VITAMIN B-12 (CYANOCOBALAMIN) (16259)Indication: Pain in unspecified joint On: :35 Request PARATHORMONE (16940)Indication: Myalgia and myositis On: :35 Request RHEUMATOID FACTOR-QUANT (41218)Indication: Pain in unspecified joint On: :15 Request SED RATE ERYTHROCYTE ([id number])Indication: Pain in unspecified joint On: :15 Request Planned Procedures Venous Doppler - LeftBy: Teddy BINGHAM, On: 02-May-2018 Intent Aislinn Leonard CNP Aerosol Treatment ([id number])By: Teddy On: 28-Mar-2018 Intent Aislinn BINGHAM CNP, Mary E Flu Vaccine (Quadrivalent) 56510Yn: On: 28-Mar-2018 Aislinn Giron CNP, CNP, Mary E Comments: Lot #[id number]-L dltd, IMDose prefilled syringegiven by: CHRISTOPHE NoriegaVIS [...] Intent E Aislinn Espinal CNP Ear Irrigation ([id number])By: Teddy On: 18-Dec-2016 Intent Aislinn BINGHAM CNP, Mary E Wax CurettesBy: Aislinn Espinal CNP On: 18-Dec-2016 Intent Aislinn Espinal CNP Aerosol Treatment ([id number])By: Teddy On: 18-Dec-2016 Intent Aislinn BINGHAM CNP, Mary E Wax CurettesBy: Pamela Bates On: 01-Dec-2016 Intent Ear Irrigation ([id number])By: Paulo On: 01-Dec-2016 Intent Pamela Comments: Ear Irrigation performed on:rightAmount/color removed cerumen:small OUtcome:clear and tolerated PNEUM VAC ADLT/IMUMNOSPR, SBC/INTRM On: 19-May-2016 Intent ([id number])By: Teddy Aislinn BINGHAM CNP, Mary E Flu Vaccine (Quadrivalent) 06924Qm: On: 12-May-2016 Intent Aislinn Espinal CNP, CNP, Mary E Comments: FLUlot: [id number]:11/04site:Lt deltoidroute:IMdose:.5mlDEMICK, MA DEXA SCAN AXIAL SKELETON ([id number])By: On: 22-Apr-2016 Intent Aislinn Espinal CNP, CNP, Mary E Pap Smear, Medicare ([id number])By: Teddy On: 22-Apr-2016 Intent Aislinn BINGHAM CNP, Mary E FLU VACCINE H1N1 ([id number])By: Teddy On: 06-Mar-2015 Intent Aislinn BINGHAM CNP, Mary E Comments: Lot:[id number]:12/19/15Dose:0.5mLRoute:IMSite:L DltdGiven By:MIKE signed ADMINISTRATION OF H1N1 INFLUENZA On: 06-Mar-2015 Intent VIRUS VACCINE ([id number])By: Teddy BINGHAMAislinn CNP, Mary E DEXA SCAN AXIAL SKELETON ([id number])By: On: 06-Mar-2015 Intent Ciesa [employer]POR[employer] SAL[employer], Divya Ciesa [employer]OR [employer]POR[employer] SAL[employer], Divya MAMMOGRAM, SCREENING, BOTH BREAST On: 06-Mar-2015 Intent ([id number])By: Swethanylakayli DIRECTOR [employer]PORATE SALES Aislinn Espinal CNP Aislinn Aragon ANNUAL DEPRESSION SCREENING, 15 On: 06-Mar-2015 Intent MINUTES ([id number])By: Teddy BINGHAM Aislinn Espinal CNP Aislinn Aragon Venous Doppler - LeftBy: Teddy BINGHAM, On: 29-Aug-2014 Intent Aislinn Leonard CNP MARY ALICE (Ankle Brachial Index) On: 29-Aug-2014 Intent ([id number])By: Alidakayli BINGHAM Aislinn Espinal CNP Aislinn Aragon SPECIMEN HANDLING/TRANSPORT On: 16-May-2014 Intent ([id number])By: Alidakayli BINGHAM Aislinn Espinal CNP Aislinn Aragon Flu Vaccine (Quadrivalent) [id number]: On: 19-Apr-2014 Intent Aislinn Espinal CNP, CNP Aislinn Aragon Comments: lot:[id number]:dose:0.5mLRoute: IMlocation: L armgiven by: elyse ADMINISTRATION OF INFLUENZA VIRUS On: 19-Apr-2014 Intent VACCINE ([id number])By: Mckenzie Zhao Radiology - Lumbar SpineBy: Alidakayli On: 29-Dec-2013 Intent Aislinn BINGHAM CNP, Mary E Toradol Injection, 30 mg ([id number])By: On: 29-Dec-2013 Intent Aislinn Espinal CNP, CNP, Mary E Ear Irrigation ([id number])By: Eben On: 19-Apr-2013 Intent Mayela LONDONO Comments: Ear Irrigation performed on:bilateralAmount/color removed cerumen:small amount of darkl brown waxOUtcome:clearUsed wax curettes FLU VAC, SPLIT, >3 YEARS, INTRAMUSC On: 19-Apr-2013 Intent ([id number])By: Pamela Crooks LPN Comments: Lot:[id number]:6.14Amt:0.5mlRoute:IMSite: L DltdGiven By: Alejandra CHAVESVIS signed IMMUNIZ ADMNIN, 1 VAC, SNGL/COMBO On: 19-Apr-2013 Intent ([id number])By: Pamela Crooks LPN Wax CurettesBy: Mayela Treadwell DO On: 19-Apr-2013 Intent Eprescribed prescriptions ([id number])By: On: 19-Apr-2013 Intent Pamela Crooks LINEMAN B 12 Injection, 1000 mcg (J3420)By: On: 28-Dec-2012 Intent Geoff CHRISTOPHEChuyKassie B 12 Injection, 1000 mcg (J3420)By: On: 29-Nov-2012 Intent Pattie Malagon LPN Comments: Lot: [id number]: Cab28Xrt: 1000mcg/1mlRoute: IMSite: L deltoidGiven by: CHRISTOPHE Allen B 12 Injection, 1000 mcg (J3420)By: On: 26-Oct-2012 Intent Jina Gomes LPN Comments: Lot #[id number]-right deltoidDose-1 mlgiven by: Rishabh Gomes LPN B 12 Injection, 1000 mcg (J3420)By: On: 11-Oct-2012 Intent Deedee Cantrell Comments: lot: [id number]:06/03site/route: L deltoid/IMamt: 1ccVIS signed when applicableChelsANDIE vásquez B 12 Injection, 1000 mcg (J3420)By: On: 05-Oct-2012 Intent Aislinn Espinal CNP, CNP, Mary E B 12 Injection, 1000 mcg (J3420)By: On: 27-Sep-2012 Intent Valencia Renee Comments: Lot:[id number]:06/03Dose:1mlRoute:IMSite:l armGiven By:BRYNN signed IMMUNIZ ADMNIN, 1 VAC, SNGL/COMBO On: 29-Mar-2012 Intent ([id number])By: Aislinn Espinal CNP Comments: lot # [id number]- 12/18/1294tmca-APSSexoio-ECuclv- 0.5 MLCHenAislinn thakur LPN, CNP MAMMOGRAM, SCREENING, BOTH BREASTS On: 29-Mar-2012 Intent ([id number])By: Aislinn Espinal CNP, CNP, Mary E FLU VAC, SPLIT, >3 YEARS, INTRAMUSC On: 29-Mar-2012 Intent ([id number])By: Aislinn Espinal CNP, CNP, Mary E MRI -Cervical Spine (IV Contrast On: 11-Jun-2010 Intent Needed)By: Aislinn Espinal CNP, CNP, Mary E Radiology - Cervical SpineBy: Eben On: 05-Jun-2010 Intent Mayela LONDONO Aerosol Treatment (15230)By: Teddy On: 03-Sep-2009 Intent Aislinn BINGHAM CNP, Mary E Pulse Oximetry ([id number])By: Teddy BINGHAM, On: 06-May-2009 Intent Aislinn Leonard CNP Aerosol Treatment (16516)By: Teddy On: 06-May-2009 Intent Aislinn BINGHAM CNP, Mary E IMMUNIZ ADMNIN, 1 VAC, SNGL/COMBO On: 20-Mar-2009 Intent ([id number])By: Aislinn Espinal CNP, CNP, Mary E FLU VAC, SPLIT, >3 YEARS, INTRAMUSC On: 20-Mar-2009 Intent ([id number])By: Aislinn Espinal CNP Comments: Lot #[id number]-left deltoidgiven by:Aislinn LEMONS CNP CT - Abdomen & Pelvis (IV Contrast On: 14-Mar-2009 Intent Needed)By: Aislinn Espinal CNP, CNP, Mary E Ultrasound - PelvisBy: Teddy BINGHAM, On: 14-Mar-2009 Intent Aislinn Leonard CNP Comments: attention adrenals and ovaries SPECIMEN HNDLNG/TRNSPRT, OFFC > LAB On: 18-Jan-2009 Intent ([id number])By: Aislinn Espinal CNP, CNP, Mary E DXA, BONE DENSITY, AXIAL SKELETON On: 13-Nov-2008 Intent (69705)By: Aislinn Espinal CNP, CNP, Mary E MAMMOGRAM, SCREENING, BOTH BREASTS On: 13-Nov-2008 Intent ([id number])By: Aislinn Espinal CNP, CNP, Mary E ELECTROCARDIOGRAM, COMPLETE (ECG) On: 11-Oct-2008 Intent (40409)By: Aislinn Espinal CNP, CNP, Mary E Planned Medications INJECTION, KETOROLAC TROMETHAMINE, PER 15 MG Ordered: 29-Dec-2013 Pending Aislinn Espinal CNPesa DIRECTOR CORPORATE SALES, Aislinn Aragon INJECTION, METHYLPREDNISOLONE SODIUM SUCCINATE, UP [...] MCG/ML Injection Solution Ordered: 29-Nov-2012 Pending Vesna LINEMAN, Pattie Vitamin B-12 1000 MCG/ML Injection Solution [...] D deficiency, unspecified : DISCONTINUED - CALCIFEDIOL (55621) Indication: Vitamin D deficiency, unspecified B12 deficiency [...] patient does not have durable power of consumer attorney or living will. The patient has noticed feeling helpless (feels depressed jasiel etimes). Other providers contributing to the patient's care are dealer support technician (Dr Genao) and other: (Neuro Danielle Mariee at [facility]).Encounter Diagnosis: Annual Medicare Physical (V70.0), Breast [...] patient does not have durable power of consumer attorney or living will. The patient has noticed staying at home rather than doing something new or going out and lack of energy. Other providers contributing to the patient's care are dealer support technician and other: (neuromuscular specKraig Manriquez). Comprehensive [...] keep the care continum I was at [facility] yesterday Encounter Diagnosis: DEPRESSIVE DISORDER (311.0), [...]
--- OUTSIDE RECORDS SUMMARY | 2018-07-18 08:25 | XMS RPT_ITS | Continuity of Care Document ---
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 Manriquez at [facility] getting carotene weekly IV twice a [...] : 18-Dec-2016 End : 28-Dec-2016 Inactive ERGOCALCIFEROL, 00206XNMG (Oral Capsule) 1 (one) Capsule twice weekly [...] 3 days then 1 tab tid NYSTATIN, 355037LVJT/ML (Mouth/Throat Suspension) 4 Milliliter qid for 7 days Quantity: 1 {qs} Refills: 0 Ordered:23-Dec-2010 Teddy COLLECTION COORDINATOR, Aislinn KATHEluca COLLECTION COORDINATOR, Divya Start : 23-Dec-2010 End : 30-Dec-2010 [...] 11-Apr-2012 End : 11-Oct-2015 Discontinued VITAMIN D, 51093WFYR (Oral Capsule) 1 (one) Capsule twice weekly [...] Operative Report Result: Comments: See Note; NOTES: [facility] Medical Records Department [address] [place] [address] Operative Report 01/25/18 1254 MR#: [id number] Acct: [id number] Name: HANNA CHAVEZ Rep #: [id number] : 1950 67 From: Vaishnavi Dietz MD PCP: Aislinn Espinal NP [place] [facility] [place] [address] Problem List (1) Urinary tract infection Status: Acute Report of Operation Date of Procedure: 01/25/18 Pre-Operative Diagnosis: urinary tract infection, pelvic pain Post-Operative Diagnosis: same and rectocele Surgery/Procedure Performed:: cystoscopy and pelvic exam under anesthesi a Description of Surgical Findings:: normal cystoscopy. very short anterior vaginal wall. grade 3 rectocele. atrophy. deputy coroner: Vaishnavi Dietz Type of Anesthesia:: MAC Specimen's [...] Discharge Instruction Result: Comments: See Note; NOTES: [facility] Medical Records Department [address] [place] [address] Instructions for Home/Discharge Instructions 01/25/18 1228 MR#: [id number] Acct: [id number] Name: HANNA CHAVEZ Rep #: [id number] : 1950 67 From: Vaishnavi Dietz MD PCP: Aislinn Espinal NP [place] [facility] [place] Diet: No Restrictions Discharge Activity: [...] DAILY 05/23/13 Triamcinolone Acetonide [Nasacort Aq Nasal [place]] 2 spray NASAL DAILY PRN 05/23/13 Levocarnitine [...] and Bladder Result: Comments: See Note; NOTES: [facility] Imaging Services [address] [place] [address] Kidney and Bladder MR#: [id number] Acct: [id number] Name: HANNA CHAVEZ Rep #: [id number] DO B: 1950 F 67 From: Tee Weems PCP: Aislinn Espinal NP Status: REG CLI Study: Kidney and Bladder Date of Exam: 01/17/18 Exam# [id number] Ordering Dr: Vaishnavi Dietz MD STUDY: RENAL [...] CC: Aislinn Espinal NP; Vaishnavi Dietz MD Teletypesetter Operator: Signed 29-Dec-2017 Transvaginal Non- Result: Comments: See Note; NOTES: [facility] Imaging Services [address] [place] [address] Transvaginal Non- MR#: [id number] Acct: [id number] Name: HANNA CHAVEZ Rep #: [id number] : 1950 F 67 From: Jacky Hanson MD PCP: Teddy LUGO, Aislinn Status: REG CLI Study: Transvaginal Non- Date of Exam: 12/29/17 Exam# [id number] Ordering Dr: Vaishnavi Dietz MD STUDY: U [...] CC: Aislinn Espinal NP; Vaishnavi Dietz MD Teletypesetter Operator: Signed 09-Dec-2017 Downtime Report Result: Comments: See Note; NOTES: [facility] Medical Records Department [address] [place] [address] Downtime Report MR#: [id number] Acct: [id number] Name: HANNA CHAVEZ Rep #: [id number] : 1950 67 From: Elmer Moreno PCP: Aislinn Espinal NP Status: REG CLI This patient was seen during an EMR downtime November 22, 2017 - November 29, 2017. This patient may have a combination of paper and electronic documentation or all paper documentation. All documentation is viewable within the e-chart portion of [facility] for each patient visit. 09-Dec-2017 Downtime Report Result: Comments: See Note; NOTES: [facility] Medical Records Department [address] [place] [address] Downtime Report MR#: [id number] Acct: [id number] Name: HANNA CHAVEZ Rep #: [id number] : 1950 67 From: Elmer Moreno PCP: Aislinn Espinal NP Status: REG CLI This patient was seen during an EMR downtime November 22, 2017 - November 29, 2017. This patient may have a combination of paper and electronic documentation or all paper documentation. All documentation is viewable within the e-chart portion of [facility] for each patient visit. 03-Dec-2017 Foot min 3 Views Result: Comments: See Note; NOTES: [facility] Imaging Services [address] [place] [address] Foot min 3 Views MR#: [id number] Acct: [id number] Name: HANNA CHAVEZ Rep #: [id number] : 1950 F 67 From: Yahir Wolfe MD PCP: Aislinn Espinal NP Status: REG CLI Study: Foot min 3 Views Date of Exam: 12/03/17 Exam# [id number] Ordering Dr: Aislinn Espinal STUDY: X-RAY - [...] Service support , CC: Aislinn Espinal NP Teletypesetter Operator: Signed 23-Dec-2016 Chest PA and Lateral Result: Comments: See Note; NOTES: [facility] Imaging Services [address] [place] [address] Veribis 4d Chest PA and Lateral MR#: [id number] Acct: [id number] Name: HANNA CHAVEZ Rep #: [id number] : 1950 F 66 From: Juan Woody MD PCP: Aislinn Espinal Status: REG CLI Study: Chest PA and Lateral Date of Exam: 12/23/16 Exam# [id number] Ordering Dr: Danielle Manriquez MD STUDY: X-RAY [...] , Service support , CC: Aislinn Manriquez Teletypesetter Operator: Signed 05-Jul-2016 Discharge Instruction Result: Comments: See Note; NOTES: [facility] Medical Records Department [address] [place] [address] Discharge Instruction 07/05/162116 MR#: [id number] Acct: [id number] Name: JOSH CHAVEZ J Rep #: [id number] : 1950 66 From: Sarabjit Salinas MD [...] your Primary Care Provider. Call [facility] ([phone]) or report to the closest Emergency Room. Call 911 if necessary. 07/05/16 <Electronically signed by Sarabjit Salinas MD> Date Sarabjit Salinas MD Cosigner Signature (If Indicated): Date CC: Aislinn Espinal 05-Jul-2016 Emergency Department Summary Result: Comments: See Note; NOTES: [facility] Medical Records Department [address] [place] [address] Emergency Department Summary 07/05/16 2114 MR#: [id number] Acct: [id number] Name: HANNA CHAVEZ Rep #: [id number] : 1950 66 From: Sarabjit Salinas MD [...] your Primary Care Provider. Call [facility] ([phone]) or repor t to the closest Emergency Room. Call 911 if necessary. 07/05/162116 <Electronically signed by Sarabjit Salinas MD> Date Sarabjit Salinas MD Cos igner Signature (If Indicated): Date CC: Aislinn Espinal 16-Apr-2015 Emergency Department Summary Result: Comments: See Note; NOTES: [facility] Medical Records Department [address] [place] [address] Emergency Department Summary MR#: [id number] Acct: [id number] Name: HANNA CHAVEZ Rep #: [id number] : 1950 64 From: Breanna Ryan MD [...] was at 3:00 a.m. She comes in [facility] for pain control. PHYSICAL EXAMINATION: VITAL [...] pain. Breanna Ryan MD T: NTS JOB: [id number] 04/16 2359 <Electronically signed by Breanna Ryan MD> Date Breanna Ryan MD Cosigner Signature (If Indicated): Date _ CC: Carla uHghes MD Date Dictated: 04/15/15816 Date Transcribed: 04/15/15816 Teletypesetter Operator: Signed 15-Apr-2015 Discharge Instruction Result: Comments: See Note; NOTES: [facility] Medical Records Department [address] [place] [address] Discharge Instruction 04/15/15808 MR#: [id number] Acct: [id number] Name: HANNA CHAVEZ Rep #: [id number] : 1950 64 From: Breanna Ryan MD [...] problems, contact your doctor. Call [facility] ([phone]) or report to the closest Emergency Room. Call 911 if necessary. 04/15/15817 <Electronically signed by Breanna Ryan MD> Date Breanna Ryan MD Cosigner Signature (If Indicated): Date CC: Carla Hughes MD 03-Dec-2014 Emergency Department Summary Result: Comments: See Note; NOTES: [facility] Medical Records Department [address] [place] [address] Emergency Department Summary MR#: [id number] Acct: [id number] Name: HANNA CHAVEZ Rep #: [id number] : 1950 64 From: Shruthi Savage DO PCP: Carla Hughes MD Status: [facility] ER DATE OF SERVICE: 11/15/2014 CHIEF COMPLAINT: [...] Hughes. 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 Shruthi Savage DO T: NTS JOB: [id number] 12/03/14 2329 <Electronically signed by Shruthi Saavge DO> Date Thalia Savage DO CC: Carla Hughes MD Date Dictated: 11/15/141931 Date Transcribed: 11/15/141931 Teletypesetter Operator: Signed 16-Nov-2014 12 Lead Electrocardiogram Result: Comments: See Note; NOTES: [facility] Cardiovascular Services [address] [place] [address] 12 Lead EKG 11/15/14 1626 MR#: [id number] Acct: [id number] Name: HANNA CHAVEZ Rep #: [id number] : 1950 64 From: Lamont Lucas MD [...] Hanna l ECG Confirmed by LAMONT LUCAS ([id number]), acquisitions editor LAKIA MORENO ([id number]) on 11/16/2014 10:58:54 AM Referred By: JERE Confirmed By:LAMONT LUCAS 11/16/14 1059 Date Lamont Lucas MD CC: Carla Hughes MD Date Dictated: 11/15/141625 Date Transcribed: 11/15/141625 Teletypesetter Operator: Signed 15-Nov-2014 Discharge Instruction Result: Comments: See Note; NOTES: [facility] Medical Records Department [address] [place] [address] [place] [address] Discharge Instruction 11/15/141924 MR#: [id number] Acct: [id number] Name: HANNA CHAVEZ Rep #: [id number] : 1950 64 From: Shruthi Savage DO [...] problems, contact your doctor. Call [facility] ([phone]) or report to the [facility] Emergency Room. Call 911 if necessary. 11/15/141927 <Electronically signed by Shruthi Savage DO> Date Shruthi Iniguez signer Signature (If Indicated): Date CC: Carla Hughes MD 15-Nov-2014 CTA Chest W/WO Contrast Result: Comments: See Note; NOTES: [facility] Imaging Services [address] [place] [address] CAT Scan Report MR#: [id number] Acct: [id number] Name: HANNA CHAVEZ Rep #: [id number] : 1950 F 64 From: Chele Puckett MD PCP: Carla Hughes MD Status: REG ER Study: CTA Chest W/WO Contrast Date of Exam: 11/15/14 Exam# [id number] Ordering Dr: Shruthi Savage DO STUDY: CTA [...] MD at 19:05 EDT , Service support [phone], CC: Crala Hughes MD; Shruthi Savage DO Teletypesetter Operator: Signed 15-Nov-2014 Chest PA and Lateral Result: Comments: See Note; NOTES: [facility] Imaging Services [address] [place] [address] Radiology Report MR#: [id number] Acct: [id number] Name: HANNA CHAVEZ Rep #: [id number] : 1950 F 64 From: Martín Morales MD PCP: Carla Hughes MD Status: DEP ER Study: Chest PA and Lateral Date of Exam: 11/15/14 Exam# [id number] Ordering Dr: Shruthi Savage DO STUDY: X- [...] Martín Morales MD at 9:28 EDT Tel [phone], Service support [phone], 0062 RAD/Chest PA and Lateral IMPRESSION: No acute abnormality is seen. Electronically Signed: Martín Morales MD at 9:28 EDT Tel [phone], Service support [phone], CC: Carla Hughes MD; Shruthi Savage DO Teletypesetter Operator: Signed 29-Dec-2013 L/S Spine Min 4 Views Result: Comments: See Note; NOTES: [facility] Imaging Services [address] [place] [address] Radiology Report MR#: [id number] Acct: [id number] Name: HANNA CHAVEZ Rep #: [id number] : 1950 F 63 From: Nirmal Watts PCP: Carla Hughes MD Status: REG CLI Study: L/S Spine Min 4 Views Date of Exam: 12/29/13 Exam# [id number] Ordering Dr: Carla Hughes MD STUDY: X-RAY [...] DO at 23:38 EDT , Service support [phone], CC: Carla Hughes MD Teletypesetter Operator: Signed Immunization Name Dates Details Influenza (3 years and up) on: 20-Mar-2009 Comments: Lot #[id number] deltoidgiven by:CDH Family History Unknown Family Member [...] m2 :31 [facility].2 f Pulse 86 /min Comments: [...] :57 Comments: Gl[facility] screening [facility] Temperature 97.9 f Pulse 66 [...] 0.00 cm Results Date Description Value Details 27-Wjd-395370:04 CBC W/Diff, Automated Comments: [facility] [address] [place], [address] Absolute Lymph 1.95 {X10_3/ul} (Normal) Range: 0.83-4.51 [...] 4.2-5.4 WBC 6.5 K/mm3 (Normal) Range: 4.4-11.0 32-Qzc-406042:04 Comprehensive Metabolic Profil Comments: [facility] [address] [place], [place], [address] GAP 5 (Normal) Range: 5-15 CO2 26.0 [...] Comments: Please note revised GLUCOSE reference range /02/2018. 75-Dma-603783:32 CBC W/Diff, Automated Comments: [facility] [address] [place], [address] Absolute Lymph 1.39 {X10_3/ul} (Normal) Range: 0.83-4.51 [...] 4.2-5.4 WBC 4.9 K/mm3 (Normal) Range: 4.4-11.0 67-Ksf-004178:32 Comprehensive Metabolic Profil Comments: Comments: [facility] [address] [place], [address] GAP 6 (Normal) Range: 5-15 CO2 [...] Comments: Please note revised GLUCOSE reference range jvybhcsji52/02/2018. 06-Kqh-446804:32 Thyroid Stim Hormone (TSH) Comments: Comments: [facility] [address] [place], [id number] TSH 1.47 {uIU/mL} (Normal) Range: 0.358-3.74 09-Kcv-382232:51 Vitamin B12 > 2000 pg/mL (Abnormal) Comments: [facility] [address] [place], [address] Range: 211-911 78-Bhv-975971:11 CBC W/Diff, Automated Comments: [facility] [address] [place], [address] Absolute Lymph [...] 4.2-5.4 WBC 5.9 K/mm3 (Normal) Range: 4.4-11.0 63-Hct-585490:11 Comprehensive Metabolic Profil Comments: [facility] [address] [place], [address] GAP 8 (Normal) Range: 5-15 CO2 26.0 [...] Comments: Please note revised GLUCOSE reference range yctvdihvj64/02/2018. 97-Ein-051401:47 Culture, Urine Comments: [facility] [address] [place], [place], [address] CUUR See Note (Normal) Comments: Urine CultureORGANISM 1: Mixed Gram Pos AND Gram Neg OrgColony Count 50,000-80,000MIX CULTURE Mixed contaminants. Submit a new specimen if indicated. 14-Abp-667484:47 Urinalysis, Complete Comments: How was Urine Obtained? [facility] [address] [place], [place], [address] MUCUS, URINE 0 SEEN {/hpf} (Normal) BACTERIA [...] BELOW (Normal) Comments: Visual Urine Color: GREEN 62-Qtz-999650:41 TSH (91580) Comments: PATIENT NOT FASTINGPERFORMED BY: [facility] [id number] TSH 2.310 {uIU/mL} (Normal) Range: 0.450-4.500 94-Jck-108174:28 URINE DELMAR CULTURE-IDENTIFICATN Comments: PATIENT NOT FASTINGPERFORMED BY: eGood70 idiagKind[facility] [id number] Information: SRC:UR (25650) Result 1 MUG (Normal) Comments: Mixed urogenital flora1,000 Colonies/mL Urine Culture,Comprehensive Final report (Normal) 60-Nat-026429:41 Metabolic Panel, Comprehensive Comments: PATIENT NOT FASTINGPERFORMED BY: eGood70 idiagKind[facility] [id number] (82441) ALT (SGPT) 16 [iU]/L (Normal) Range: 0-32 [...] 8-27 Glucose 89 mg/dL (Normal) Range: 65-99 45-Ius-513932:02 Urinalysis, Office (91002) UA - LEUKOCYTE ESTERASE Small (Normal) UA - NITRITE Negative (Normal) URINE UROBILINGN JEROME TIMED Normal mg/dL (Normal) UA - PROTEIN Negative mg/dL (Normal) UA - PH 7.5 (Normal) UA - BLOOD Negative (Normal) UA - SPECIFIC GRAVITY 1.020 (Normal) UA - KETONES Negative mg/dL (Normal) UA - BILIRUBIN Negative (Normal) UA - GLUCOSE Negative (Normal) 59-Gvk-095061:54 LDH (LD) (LACTATE DEHYDROGENASE) Comments: PATIENT NOT FASTINGPERFORMED BY: [facility] Myvnqb8472 [facility] [id number] (66064) LDH 191 [iU]/L (Normal) Range: 119-226 72-Zrr-414885:54 RHEUMATOID FACTOR-QUANT (64324) Comments: PATIENT NOT FASTINGPERFORMED BY: [facility] [address] [facility] [id number] RA Latex Turbid. <10.0 {IU/mL} (Normal) Range: 0.0-13.9 90-Nqu-578071:54 C-Reactive Protein (69565) Comments: PATIENT NOT FASTINGPERFORMED BY: [facility]6[address] [facility] [id number] C-Reactive Protein, Quant 6.1 mg/L (Abnormal) Range: 0.0-4.9 14-Aoe-360465:54 SED RATE ERYTHROCYTE (58931) Comments: PATIENT NOT FASTINGPERFORMED BY: [facility]6[address] [facility] [id number] Sedimentation Rate-Westergren 16 mm/h (Normal) Range: 0-40 7-Qdu-184581:40 CPK Total, Creatine Kinase Comments: [facility] [address] [place], [place], [address] CPK TOTAL 68 U/L (Normal) Range: 26-192 01-Dwy-891896:12 Culture, Urine Comments: [facility] [address] [place], [place], [address] CUUR See Note (Normal) Comments: Urine CultureORGANISM [...] $ <=20 S(NF) indicates non-formulary drug at [facility]. Approval by Infectious Disease Specialist required before non- formulary drugs may be ordered and/or dispensed. 00-Ujn-899609:12 Urinalysis, Routine (Dipstick) Comments: How was Urine Obtained? [facility] [address] [place], [address] LEUK ESTERASE 500 /ul (Abnormal) OCCULT BLOOD-UR 50 /ul (Abnormal) NITRITE UR Positive (Abnormal) UROBILI Normal mg/dL (Normal) PROT DIPSTX 100 mg/dL (Abnormal) pH UR 6.0 (Normal) Range: 5.0 - 8.0 SP.GR. DIPSTX 1.025 (Normal) Range: 1.002-1.030 KETONE UR Negative mg/dL (Normal) BILIRUBIN URINE Negative mg/dL (Normal) GLUCOSE, UR Normal mg/dL (Normal) CLARITY Cloudy (Normal) COLOR Yellow (Normal) 05-Boz-052028:15 CBC W/Diff, Automated Comments: [facility] [address] [place], [address] Absolute Lymph 1.50 {X10_3/ul} (Normal) [...] 4.2-5.4 WBC 4.6 K/mm3 (Normal) Range: 4.4-11.0 91-Qnu-950335:15 Comprehensive Metabolic Profil Comments: [facility] [address] [place], [address] GAP 7 (Normal) Range: 5-15 CO2 28.0 mmol/L (Normal) Range: 21.0-32.0 CL 106 mmol/L (Normal) Range: 98-107 K 3.6 mmol/L (Normal) Range: 3.5-5.1 NA 141 mmol/L (Normal) Range: 136-145 T BILI 0.60 mg/dL (Normal) Range: 0.20-1.00 ALT 27 U/L (Normal) Range: 13-56 Comments: Please note revised ALT reference range ivxxcxrep79/28/2018. ALK P 68 U/L (Normal) Range: 45-117 [...] A.D.A. criteria.Please note revised GLUCOSE reference range ecbmzsjhz22/02/2018. 0-Ikz-842144:59 CPK Total, Creatine Kinase Comments: [facility] [address] [place], [id number] CPK TOTAL 55 U/L (Normal) Range: 26-192 8-Cfk-487491:59 GGTP 140 U/L (Abnormal) Comments: [facility] [address] [place], [address] Range: 5-55 :50 CBC W/Diff, Automated Comments: [facility] [address] [place], [place], [address] Absolute Lymph 1.40 {X10_3/ul} (Normal) Range: 0.83-4.51 [...] Range: 4.4-11.0 24-Jun-20179:50 Comprehensive Metabolic Profil Comments: [facility] [address] [place], [place], [phone] GAP 7 (Normal) Range: 5-15 CO2 28.0 [...] <126 mg/dLsuggests IMPAIRED HOMEOSTASIS per A.D.A. criteria. 10-Nzj-279734:00 CBC W/Diff, Automated Comments: [facility] [address] [place], [place], [phone] ; Dr Fiore Absolute Lymph 1.66 {X10_3/ul} [...] 4.2-5.4 WBC 5.2 K/mm3 (Normal) Range: 4.4-11.0 86-Per-701978:00 Comprehensive Metabolic Profil Comments: [facility] [address] [place], [place], [address] GAP 5 (Normal) Range: 5-15 CO2 27.0 [...] 7-18 GLU 106 mg/dL (Normal) Range: 70-110 39-Pcz-463466:00 CBC W/Diff, Automated Comments: [facility] [address] [place], [place], [address] ; rheum Absolute Lymph 1.83 {X10_3/ul} (Normal) [...] 4.2-5.4 WBC 5.8 K/mm3 (Normal) Range: 4.4-11.0 95-Npl-978497:00 Comprehensive Metabolic Profil Comments: [facility] [address] [place], [place], [address] ; Dr moreno GAP 7 (Normal) Range: [...] Range: 70-110 :39 CBC W/Diff, Automated Comments: [facility] [address] [place], [address] SMEAR COMMENT SCANNED (Normal) Absolute Lymph 0.54 [...] 4.2-5.4 WBC 11.4 K/mm3 (Abnormal) Range: 4.4-11.0 11-Aiy-968121:39 Comprehensive Metabolic Profil Comments: [facility] [address] [place], [place], [address] GAP 10 (Normal) Range: 5-15 CO2 23.0 [...] 126 mg/dLsuggests DIABETES MELLITUS per A.D.A. criteria. 85-Fov-533008:39 Lipase Comments: [facility] [address] [place], [address] LIPASE 86 U/L (Normal) Range: 73-393 :01 Pap IG (Image Comments: Source.............Cervix;EndocervixNo. of containers..01 CYTYC Thin Prep VialPATIENT NOT FASTINGPERFORMED BY: =G [facility] Chrissie Zambrano W [id number] BY: LabBoatSetter Guided) karoline Zambrano W [id number] Note: PAPSMR (Normal) Comments: The Pap smear [...] FASTINGPERFORMED BY: =G [facility] Chrissie Zambrano W [id number] BY: [place] [employer] [place] (33398) (no STD Chrissie Zambrano W [id number] Information: [id number]; ov in 2 weeks testing) Age Gdln ACOG Testing AGE4 (Normal) Comments: <21 or >65 or no age provided 64-Ido-773199:55 CBC W/Diff, Automated Comments: [facility] [address] [place], [address] Absolute Lymph 1.88 {X10_3/ul} (Normal) [...] 4.2-5.4 WBC 5.7 K/mm3 (Normal) Range: 4.4-11.0 94-Sdz-142274:55 Comprehensive Metabolic Profil Comments: [facility] [address] [place], [address] GAP 7 (Normal) Range: 5-15 CO2 28.0 [...] 7-18 GLU 84 mg/dL (Normal) Range: 70-110 69-Iku-393511:52 CBC W/Diff, Automated Comments: [facility] [address] [place], [place], [address] Absolute Lymph 1.74 {X10_3/ul} (Normal) Range: 0.83-4.51 [...] 4.2-5.4 WBC 5.0 K/mm3 (Normal) Range: 4.4-11.0 45-Xny-494865:52 Comprehensive Metabolic Profil Comments: [facility] [address] [place], [address] GAP 6 (Normal) Range: 5-15 CO2 29.0 [...] 7-18 GLU 107 mg/dL (Normal) Range: 70-110 36-Jkx-926474:52 Vitamin D,25 Hydroxy Comments: [facility] [address] [place], [address] Vitamin D 25-OH 23.6 ng/mL (Normal) Comments: Vitamin D 25(OH) Status Range Deficiency <20 ng/mL (50nmol/L) Insuffciency 20 - 30 ng/mL (50 - 75 nmol/L) Sufficiency 30 - 100 ng/mL (75 - 250 nmol/L) Toxicity >100 ng/mL (>250 nmol/L) 38-Pbd-589455:34 URINE DELMAR CULTURE-JEROME COL Comments: PATIENT NOT FASTINGPERFORMED BY: [facility] Hzsysx1307 [facility] [id number] Information: SRC:[facility] [place] U44311 COUNT (23693) Result 1 MUG (Normal) Comments: Mixed urogenital floraGreater than 100,000 colony forming units per mL Urine Culture,Comprehensive Final report (Normal) 07-Eav-148156:21 Urinalysis, Office (68421) UA - LEUKOCYTE ESTERASE Trace (Normal) UA - NITRITE Negative (Normal) URINE UROBILINGN JEROME TIMED Normal mg/dL (Normal) UA - PROTEIN Negative mg/dL (Normal) UA - PH 6.0 (Normal) Comments: 5.5 UA - BLOOD Negative (Normal) UA - SPECIFIC GRAVITY 1.030 (Abnormal) UA - KETONES Negative mg/dL (Normal) UA - BILIRUBIN Negative (Normal) UA - GLUCOSE Negative (Normal) 61-Wgy-957376:10 CBC W/Diff, Automated Comments: [facility] [address] [place], [address] Absolute Lymph 1.44 {X10_3/ul} (Normal) [...] 4.2-5.4 WBC 4.3 K/mm3 (Abnormal) Range: 4.4-11.0 39-Eoy-186735:10 Comprehensive Metabolic Profil Comments: [facility] [address] [place], [place], [address] GAP 3 (Abnormal) Range: 5-15 CO2 28.0 [...] 126 mg/dLsuggests DIABETES MELLITUS per A.D.A. criteria. 09-Otx-995316:10 Vitamin D,25 Hydroxy Comments: [facility] [address] [facility]. [place], [place], [id number] Vitamin D 25-OH 20.8 ng/mL (Normal) Comments: Vitamin D 25(OH) Status Range Deficiency <20 ng/mL (50nmol/L) Insuffciency 20 - 30 ng/mL (50 - 75 nmol/L) Sufficiency 30 - 100 ng/mL (75 - 250 nmol/L) Toxicity >100 ng/mL (>250 nmol/L) 86-Wrv-299025:16 CBC W/Diff, Automated Comments: [facility] Tarlcpwsgw[address]92 [facility]. [place], [place], [id number] ; ordered by another doctor Absolute Lymph [...] 4.2-5.4 WBC 5.1 K/mm3 (Normal) Range: 4.4-11.0 41-Tmg-415317:16 Comprehensive Metabolic Profil Comments: [facility] [address] [place], [place], [id number] ; ordered by another doctor GAP 7 [...] 7-18 GLU 87 mg/dL (Normal) Range: 70-110 05-Kfn-849858:16 Vitamin D,25 Hydroxy Comments: [facility] [address] [place], [id number] ; ordered by another doctor Vitamin D 25-OH 33.2 ng/mL (Normal) Comments: Vitamin D 25(OH) Status Range Deficiency <20 ng/mL (50nmol/L) Insuffciency 20 - 30 ng/mL (50 - 75 nmol/L) Sufficiency 30 - 100 ng/mL (75 - 250 nmol/L) Toxicity >100 ng/mL (>250 nmol/L) 1-Hhm-383151:22 CBC W/Diff, Automated Comments: [facility] [address] [place], [address] Absolute Lymph 1.19 {X10_3/ul} (Normal) [...] 4.2-5.4 WBC 4.6 K/mm3 (Normal) Range: 4.4-11.0 7-Cjy-898727:22 Comprehensive Metabolic Profil Comments: [facility] [address] [place], [place], [address] GAP 3 (Abnormal) Range: 5-15 CO2 29.0 [...] 7-18 GLU 100 mg/dL (Normal) Range: 70-110 6-Zpa-637729:22 Lipid Profile Comments: [facility] Apjumrtsea8142 [facility]. [place], [place], [id number] VLDL 16 mg/dL (Normal) Range: 5-40 LDL [...] 200-240 mg/dL Borderline >240 mg/dL High Risk 2-Lrv-583879:22 Thyroid Stim Hormone (TSH) Comments: [facility] [address]pd[address] [facility] [place], [address] TSH 1.39 {uIU/mL} (Normal) Range: 0.358-3.74 88-Aku-429665:30 CBC W/Diff, Automated Comments: Comments: IVT TO DRAW OFF PORTHas pt arrived? YTest performed at:[facility] Uqx[address]kniep7170 [facility] [place] [address] Absolute Lymph 1.56 {X10_3/ul} (Normal) [...] 4.2-5.4 WBC 4.7 K/mm3 (Normal) Range: 4.4-11.0 66-Tpi-740522:30 Comprehensive Metabolic Profil Comments: Has pt arrived? YComments: IVT TO DRAW FROM PORTTest performed at:[facility] [address] [place] [address] GAP 8 (Normal) Range: 5-15 CO2 27.0 [...] Comments: Please note revised CREATININE reference range achnrjsvj04/22/2015. BUN 21 mg/dL (Abnormal) Range: 7-18 GLU 133 mg/dL (Abnormal) Range: 70-110 Comments: Fasting Glucose result greater than or equal to 126 mg/dLsuggests DIABETES MELLITUS per A.D.A. criteria. 35-Vqx-385381:30 Vitamin D,25 Hydroxy Comments: Has pt arrived? YTest performed at:[facility] [address] [place] [address] Vitamin D 25-OH 22.5 ng/mL (Normal) Comments: Vitamin D 25(OH) Status Range Deficiency <20 ng/mL (50nmol/L) Insuffciency 20 - 30 ng/mL (50 - 75 nmol/L) Sufficiency 30 - 100 ng/mL (75 - 250 nmol/L) Toxicity >100 ng/mL (>250 nmol/L) 64-Nnz-201425:42 D-Dimer Quantitative (DVT/PE) Comments: Test performed at:[facility] [address] [place] [address] D-DIMER QUANT 0.54 {FEU/ug/m} (Abnormal) Range: 0.27-0.49 Comments: D-Dimer ELEVATED (>0.49): Additional studies and clinicalassessments are indicated to conclude diagnosis of:Deep Vein Thrombosis (DVT) or Pulmonary Embolism (PE)CRITICAL VALUE CALLED TO LNZKZUIGQ44/2 02/02 Ashish Griffin.RESULTS READ BACK BY SAME . 92-Dzf-911533:39 Lipase Comments: Test performed at:[facility] [address] [place] [address] LIPASE 96 U/L (Normal) Range: 70-290 51-Sin-378418:22 BNP,B-Type NATRIURETIC PEPTIDE Comments: Test performed at:[facility] [address] [place] [address] B-TYPE FATOUMATA PEP 124.8 pg/mL (Abnormal) Range: 0-100 50-Foz-985370:22 CBC W/Diff, Automated Comments: Test performed at:[facility] [address] [place] [address] Absolute Lymph 2.09 {X10_3/ul} (Normal) [...] 4.2-5.4 WBC 5.9 K/mm3 (Normal) Range: 4.4-11.0 37-Eoo-585948:22 CK-MB Quantitative and Index Comments: Test performed at:[facility] [address] [place] [address] CPKMB 0.7 ng/mL (Normal) Range: 0.0-5.0 Comments: CK-MB and RI Interpretation MB Relative Index Non-AMI <or= 5 NA Indeterminate > 5 <or= 4 AMI > 5 > 4 CPK TOTAL 97 U/L (Normal) Range: 26-192 97-Vic-047913:22 Comprehensive Metabolic Profil Comments: 'TROP' Serial specimen #1, #2, #3, or #4: 1Test performed at:[facility] [address] [place], [place] [id number] GAP 9 (Normal) Range: 5-15 CO2 25.0 [...] 126 mg/dLsuggests DIABETES MELLITUS per A.D.A. criteria. 63-Gyo-675018:22 Troponin-I Comments: 'TROP' Serial specimen #1, #2, #3, or #4: 1Test performed at:[facility] [address] [facility] [place] [address] TROPONIN-I < 0.02 ng/mL (Normal) Comments: TROPONIN-I EXPECTED VALUES <0.05 NEGATIVE 0.06 - 0.59 AT RISK OF RI > OR = 0.60 SUGGEST RI 73-Mmo-025949:20 Urinalysis, Complete Comments: Order Date: 11/15/14How was Urine Obtained? CLEAN CATCHTest performed at:[facility] [address] [place] [address] AMORPHOUS 1+ PHOS (Normal) MUCUS, [...] CLARITY Sl. Cloudy (Normal) COLOR Yellow (Normal) 61-Ita-241806:00 CBC W/Diff, Automated Comments: Comments: IVT TO DRAWTest performed at:[facility] [address] [place] [address] Absolute Lymph 1.62 {X10_3/ul} (Normal) [...] 4.2-5.4 WBC 5.8 K/mm3 (Normal) Range: 4.4-11.0 01-Ntj-892985:00 Comprehensive Metabolic Profil Comments: Comments: IVT TO DRAWTest performed at:[facility] [address], [place] [id number] GAP 4 (Abnormal) Range: 5-15 CO2 27.0 [...] 126 mg/dLsuggests DIABETES MELLITUS per A.D.A. criteria. 01-Usn-747499:25 CBC W/Diff, Automated Comments: Test performed at:[facility] [address] [place], [place] [address] Absolute Lymph 1.28 {X10_3/ul} (Normal) Range: 0.83-4.51 [...] 4.2-5.4 WBC 5.0 K/mm3 (Normal) Range: 4.4-11.0 39-Hoz-623100:25 Comprehensive Metabolic Profil Comments: Test performed at:[facility] [address] [place] [address] GAP 4 (Abnormal) Range: 5-15 CO2 29.0 [...] 7-18 GLU 100 mg/dL (Normal) Range: 70-110 95-Gsa-148629:21 URINE DELMAR CULTURE-JEROME COL Comments: PATIENT NOT FASTINGPERFORMED BY: HIREN [facility] [address] [place] [id number] Information: SRC:UR [id number] COUNT (21876) Result 1 MUG (Normal) Comments: Mixed urogenital flora1,000 Colonies/mL Urine Culture,Comprehensive Final report (Normal) 26-Ewz-048314:35 Urinalysis, Office (33089) UA - LEUKOCYTE ESTERASE Trace (Normal) UA - NITRITE Negative (Normal) URINE UROBILINGN JEROME TIMED Normal mg/dL (Normal) UA - PROTEIN Negative mg/dL (Normal) UA - PH 6.0 (Normal) Comments: 5.5 UA - BLOOD Negative (Normal) UA - SPECIFIC GRAVITY 1.030 (Abnormal) UA - KETONES Negative mg/dL (Normal) UA - BILIRUBIN Negative (Normal) UA - GLUCOSE Negative (Normal) 9-Dlx-599568:15 CBCD ALC 1.51 {X10_3/ul} (Normal) Range: 0.83-4.51 [...] 4.2-5.4 WBC 5.7 K/mm3 (Normal) Range: 4.4-11.0 6-Djm-229844:15 CMP Comments: Comments: FAX RESULTS TO DR. [...] or Folic Acid Supplements? N Range: 3.1-17.5 5-Ech-119835:01 Urinalysis, Office (49076) UA - LEUKOCYTE ESTERASE Negative (Normal) UA [...] 126 mg/dLsuggests DIABETES MELLITUS per A.D.A. criteria. 1-Bnn-312808:52 SED tSEDRATE 32 mm/h (Abnormal) Range: 0-30 :21 iPBE 0 mmol/L (Normal) :21 iPCO2 40.0 {mmHg} (Normal) Range: 35-45 :21 iPH 7.41 (Normal) Range: 7.35-7.45 :21 iPO2 83 {mmHG} (Normal) Range: 75-100 :21 iTCO2 26 mmol/L (Normal) :21 iTHCO3 25 mmol/L (Normal) Range: 22-26 Comments: Site = L BrachialAllens Test = POSDevice = Room AirResults To = OTHERTime Given = 915 :21 gVN7RAT 96 % (Normal) Range: 95-99 :21 iTYPE ART (Normal) 4-Noi-588455:37 Rapid Flu (55969 x 2) Comments: neg Influenza A Ag negative a and b (Normal) 2-Lqe-536646:59 Influenza A&B Viral Comments: neg; PATIENT NOT FASTINGPERFORMED BY: [facility] CenterSxpppv5762 [facility] [id number] Information: SRC:NOS [id number] Culture (23207) Viral Culture,Rapid,Influenza FLUABN (Normal) Comments: Negative:No Influenza [...] 7-18 GLU 87 mg/dL (Normal) Range: 70-110 7-Rmb-297565:05 FOL 22.20 ng/mL (Abnormal) Comments: COMMENTS: FAX RESULTS TO AISLINN SCOTT DRAW Range: 3.1-17.5 64-Vxg-452913:08 CALCIFEDIOL (43975) Comments: PATIENT NOT FASTINGPERFORMED BY: [facility] CenterLoqfbp2799 [facility] [id number] Information: [id number] Vitamin D, 25-Hydroxy 47.6 ng/mL (Normal) Range: 30.0-100.0 Comments: Vitamin D deficiency has been defined by the [place] of[place]icine and an Endocrine Society practice guideline as alevel of serum 25-OH vitamin D less than 20 ng/mL (1,2).The Endocrine Society went on to further define vitamin Dinsufficiency as a level between 21 and 29 ng/mL (2).1. IOM ([place] of Medicine). 2010. Dietary reference intakes for calcium and D. [place]: The National Academies Press.2. Stacia MF, Mago MONTE, Meliza MAGDALENO, et al. Evaluation, treatment, and prevention of vitamin D deficiency: an Endocrine Society clinical practice guideline. JCEM. 2010; 96(7):1911-30. 4-Lpy-510788:18 BILAT SCRN DIGITAL & CAD Radiology Report [...] Morales M.D.May 04 012 at 2:58:08 PM [id number] Signed GP/GP If you are the referring physician and would like to consult with theradiologist who provided this interpretation, please contact Valdo bettencourt M.D. at [phone]. If this radiologist is unavailable, youwill be directed to another radiologist to assist. If you are a patient with a question regarding this report, pleasecontactyour refe rring physician directly. Professional Interpretation Provided By: [employer], Phone , These documents contain legally protected [...] D deficiency has been defined by the [place] of[place] and an Endocrine Society practice guideline as alevel of serum 25-OH vitamin D less than 20 ng/mL (1,2).The Endocrine Society went on to further define vitamin Dinsufficiency as a level between 21 and 29 ng/mL (2).1. IOM ([place] of Medicine). 2010. Dietary reference intakes for calcium and D. [place]: The National Academies Press.2. Stacia MF, Mago [place], Meliza MAGDALENO, et al. Evaluation, treatment, and prevention of vitamin D deficiency: an Endocrine Society clinical practice guideline. JCEM. 2010; 96(7): 1911-30.Performed at: - [address] [id number] Director: Meeta Hickman MD, Phone: [phone] 78-Odo-955607:44 LIPID VLDL 14 mg/dL (Normal) Range: 5-40 [...] 200-240 mg/dL Borderline >240 mg/dL High Risk 09-Mzd-210980:35 Urinalysis, Office (90725) UA - BILIRUBIN Small (Normal) UA - BLOOD Negative (Normal) UA - GLUCOSE Negative (Normal) UA - KETONES Small mg/dL (Normal) Comments: trace UA - LEUKOCYTE ESTERASE Negative (Normal) UA - NITRITE Negative (Normal) UA - PH 5.0 (Normal) UA - PROTEIN Trace mg/dL (Normal) UA - SPECIFIC GRAVITY 1.025 (Normal) URINE UROBILINGN JEROME TIMED Normal mg/dL (Normal) 92-Tlj-850537:07 CBC with manual diff Comments: PATIENT NOT FASTINGPERFORMED BY: [facility] Fsxgdo9097 [facility] [id number] Information: [id number] (65833) Immature Grans (Abs) 0.0 {x10E3/uL} (Normal) Range: [...] 3.80-5.10 WBC 5.6 {x10E3/uL} (Normal) Range: 4.0-10.5 34-Vkz-237401:07 Metabolic Panel, Comprehensive Comments: PATIENT NOT FASTINGPERFORMED BY: [facility] CenterSrihhu4204 [facility] [id number] (75745) Alkaline Phosphatase, S 50 [iU]/L (Normal) Range: [...] Glucose, Serum 97 mg/dL (Normal) Range: 65-99 64-Gun-76117:00 SPINE, CERVICAL (ROUTINE) Radiology See Note Comments: [...] 0.6-1.0 GLU 102 mg/dL (Normal) Range: 70-110 04-Zlf-88106:00 CERV SPINE,MIN 4 VIEWS Radiology Report See [...] on 06/09/10 0855 Sign by: Alena Worley 18-Pxa-152596:55 CALCIFEDIOL (44347) Comments: PATIENT NOT FASTINGPERFORMED BY: LabSsm [facility] CenterBazbxv5187 [facility] [id number] Information: [id number] Vitamin D, 25-Hydroxy 36.1 ng/mL (Normal) Range: [...] (Normal) GLU 82 mg/dL (Normal) Range: 70-110 44-Sak-312939:33 ALDOLASE 2030 4.7 U/L (Normal) Range: 1.2-7.6 Comments: Performed at: [address] [id number] Director: Meeta Hickman MD 40-Phl-030336:33 CBCD ABSOLUTE NEUT 2.6 3/uL (Normal) Range: [...] 11.6-14.6 WBC 4.9 K/mm3 (Normal) Range: 4.4-11.0 55-Ali-039109:33 COMP METABOLIC Comments: LIVER TEST TO CL [...] (Normal) Comments: LIVER TEST TO Range: 21-215 92-Zys-121758:33 D BILI 0.12 mg/dL (Normal) Comments: LIVER TEST TO Range: 0.00-0.30 89-Uhs-016865:46 COMPLETE UA BACTERIA RARE {/hpf} (Normal) MUCUS, [...] CK-BB 0 % (Normal) Comments: Performed at: [address] [id number] Director: Meeta Hickman MD CK-MB 0 % (Normal) Range: 0-3 CK-MM 100 % (Normal) Range: 97-100 Macro I 0 % (Normal) Macro II 0 % (Normal) CPK,TOTAL,SERUM 59 U/L (Normal) Range: 24-173 :46 PTH,Intact 57 pg/mL (Normal) Range: 14-72 :46 TSH 1.06 {uIU/mL} (Normal) Range: 0.358-3.74 :29 ALDOLASE 2030 9.1 U/L (Abnormal) Range: 1.2-7.6 Comments: Performed at: [address] [id number] Director: Saul Cuadra MD :29 COMP METABOLIC [...] 126 mg/dLsuggests DIABETES MELLITUS per A.D.A. criteria. 68-Lxr-709266:29 CPK TOTAL 356 U/L (Abnormal) Range: 21-215 56-Wcq-901124:29 [facility] LAB TEST . (Normal) Comments: MYOGLOBIN, SERUM 121 H ng/mL 25 - 58 TESTING PERFORMED AT [facility]. ORIGINAL REPORT ONFILE IN LAB CONTAINS ADDITIONAL TEST SITE INF ORMATION. 02-Fry-613956:14 COMPLETE UA AMORPHOUS 4+ (Normal) BACTERIA 0 [...] U/L (Abnormal) Range: 1.2-7.6 Comments: Performed at: [address] [id number] Director: Saul Cuadra MD 51-Atx-997363:03 CKMB CKRI 0.2 % (Normal) Range: 0.0-1.4 [...] 4.2-5.4 WBC 4.1 K/mm3 (Abnormal) Range: 4.4-11.0 82-Kob-407090:18 COMP METABOLIC CL 104 mmol/L (Normal) Range: [...] 0.6-1.0 GLU 109 mg/dL (Normal) Range: 70-110 31-Tyc-945348:10 Rapid Strep Test, Office (20611) Rapid Strep Test, Office Negative (Normal) 5-Qrb-055377:56 CALCIFEDIOL (03233) Comments: PATIENT NOT FASTINGPERFORMED BY: [facility]6370 [facility] [id number] Information: [id number] Vitamin D, 25-Hydroxy 19.7 ng/mL (Abnormal) Range: 32.0-100.0 Comments: Recent studies consider the lower limit of 32.0 ng/mL to be athreshold for optimal health.Froylan BHAKTA. J Nutr. 2004;135(2):317-22. 64-Ssu-910487:10 ABDOMEN/PELVIS WITH CONTRAST Radiology Report See Note (Normal) Comments: Exam Number: [id number] CLINICAL:58 year old woman with abnormal blood [...] surgically absent. Reported By: LOREN MALCOLM M.D. 91-Qos-281532:15 TRANSVAGINAL NON-PREG US () Radiology Report See Note (Normal) Comments: Exam Number: [id number] CLINICAL:58-year-old female post menopausal with positive beta-hCG [...] weeks recommended. Reported By: WILLIE BOLIVAR M.D. 04-Voj-025150:55 PELVIC (NON-PREG) (HP) Radiology Report See Note (Normal) Comments: Exam Number: [id number] CLINICAL:58-year-old female post menopausal with positive beta-hCG [...] HCGUQUAL SeeNote m[iU]/mL (Normal) Comments: Result: Negative 28-Kul-550273:17 DELMAR CULTURE-OTHER (84485) Comments: PATIENT NOT FASTINGClinical Information: SRC:THRT ADD [id number] PERFORMED BY: [facility]6370 [facility] [id number] Result 1 RRF (Normal) Comments: Routine respiratory gabriella Upper Respiratory Culture Final report (Normal) 05-Lkk-656019:03 LQD PAP [id number] Comments: CYTOLOGY INFORMATION:- CLINICAL INFORMATION: - DATE LMP/MENOPAUSE: 1998 LMP- COLLECTION VIAL: Thin Prep Vial- TRAVELING [place] SOURCE: CERVICAL/ENDOCERVICAL- COLLECTION TECHNIQUE: BRUSH/SPATULA ADEQ Comment (Normal) Comments: Satisfactory for evaluation. Endocervical and/or squamous metaplasticcells (endocervical component) are present. COMM . (Normal) DIAGN Comment (Normal) Comments: NEGATIVE FOR INTRAEPITHELIAL LESION AND MALIGNANCY. HPV RFLX Comment (Normal) Comments: The HPV DNA reflex criteria were not met with this specimenresult therefore, no HPV testing was performed. .Performed At: [address] [id number] PAPR Comment (Normal) Comments: The Pap smear is a screening test designed to aid in thedetection of premalignant and malignant conditions of theuterine cervix. It is not a diagnostic procedure andshould not be used as the sole means of detecting cervicalcancer. Both false-positive and false-negative reports dooccur. . PERFORM Comment (Normal) Comments: Ashwin Blanc, Crochet Machine Operator (ASCP) 38-Vpu-269183:52 Microscopic Examination Comments: PATIENT WAS FASTINGPERFORMED BY: [facility] [id number] Bacteria Few (Normal) Epithelial Cells (non renal) None seen {/hpf} (Normal) Range: 0 - 10 RBC None seen {/hpf} (Normal) Range: 0 - 3 WBC 0-5 {/hpf} (Normal) Range: 0 - 5 88-Jjs-819227:52 MICROALBUMIN: CREATININE RATIO Comments: PATIENT WAS FASTINGPERFORMED BY: [facility] [id number] (74186) AND (38932) Creatinine, Urine 353.6 mg/dL (Abnormal) Range: 15.0-278.0 Microalb/Creat Ratio 5.4 {ug/mg_creat} (Normal) Range: 0.0-30.0 Microalbumin, Urine 19.2 ug/mL (Abnormal) Range: 0.0-17.0 89-Vhp-656645:52 URINALYSIS (24103) Comments: PATIENT WAS FASTINGPERFORMED BY: eGood70 Toro Crimson [facility]Kind[facility] [id number] Appearance Clear (Normal) Bilirubin Negative (Normal) Glucose Negative (Normal) Ketones Negative (Normal) Microscopic Examination See below: (Normal) Nitrite, Urine Negative (Normal) Occult Blood Negative (Normal) pH 8.0 (Abnormal) Range: 5.0-7.5 Protein 1+ (Abnormal) Specific [place] 1.010 (Normal) Range: 1.005-1.030 Urine-Color Yellow (Normal) Urobilinogen,Semi-Qn 0.2 mg/dL (Normal) Range: 0.0-1.9 WBC Esterase Negative (Normal) 66-Evr-563773:52 Metabolic Panel, Comprehensive Comments: PATIENT WAS FASTINGPERFORMED BY: LabCoSouthern [facility] CenterSwmzqh7014 [address] DoughertyKind[facility] [id number] (32110) A/G Ratio 1.6 (Normal) Range: 1.1-2.5 Albumin, [...] Sodium, Serum 144 mmol/L (Normal) Range: 135-145 99-Wud-729484:52 Lipid Panel (94507) Comments: PATIENT WAS FASTINGPERFORMED BY: LabGoodman Asset ProtectionMjxfvx6152 [facility] [id number] Cholesterol, Total 237 mg/dL (Abnormal) Range: 100-199 [...] Cholesterol García 19 mg/dL (Normal) Range: 5-40 84-Jvz-122244:52 CBC with manual diff (35944) Comments: PATIENT WAS FASTINGClinical Information: ADD DARW FEE [id number] ADD J 68852 PERFORMED BY: [id number] [facility] [id number] Baso (Absolute) 0.1 {x10E3/uL} (Normal) Range: 0.0-0.2 [...] : Follow up in 3 months with [facility] Indication: Insomnia Vitamin D deficiency, unspecified [...] pain : Follow up on Wednesday with [facility] Indication: Back pain Carnitine deficiency : Follow [...] : FOLLOW UP IN 3 MONTHS with [facility] Indication: Unspecified inflammatory polyarthropathy Vitamin D [...] Indication: DEPRESSIVE DISORDER (311.0) Planned Observations PREALBUMIN (78298)Indication: Malnutrition On: 33-Bxk-500691:05 Request MAGNESIUM (02925)Indication: Hypocalcemia On: 10-Sfz-982093:05 Request BNTP (76299)Indication: Leg swelling On: 69-Gkr-835211:59 Request TSH (40400)Indication: Leg pain On: 76-Tde-019919:42 Request CBC, Platelets & Auto Diff (74563)Indication: Leg pain On: 55-Hdd-440386:42 Request Metabolic Panel, Comprehensive (08646)Indication: Leg pain On: 67-Teo-554823:42 Request Vitamin B-12 (cyanocobalamin) (96870)Indication: B12 deficiency On: 71-Zve-337502:55 Request CPK TOTAL & ISOENZYMES (28412)Indication: Pain in unspecified joint On: 02-Bid-189683:03 Request URINE DELMAR CULTURE-IDENTIFICATN (50125)Indication: Dysuria On: 70-Ezo-673626:16 Request URINALYSIS (68476)Indication: Dysuria On: 10-Tcy-809558:16 Request CALCIFEDIOL (05100)Indication: Postmenopausal (Renamed from Postmenopausal status) On: 0-Klh-021618:50 Request HPV automatic (48586)Indication: Screening for HPV (human papillomavirus) (Renamed from Encounter for screening for human papillomavirus (HPV)) On: 1-Kwt-995767:49 Request Metabolic Panel, Comprehensive (32027)Indication: DM (diabetes mellitus screen) On: 56-Eqv-586080:24 Request TSH (41282)Indication: Screening for deficiency anemia On: :23 Request CBC, Platelets & Auto Diff (95482)Indication: Screening for deficiency anemia On: 30-Rqq-967940:23 Request Lipid Panel (59654)Indication: Screening for hyperlipidemia On: 00-Svb-213461:23 Request VITAMIN B12 AND FOLATES (77969)Indication: Leg pain On: 6-Dni-737724:27 Request HEPATIC FUNCTION PANEL (80687)Indication: Hypercholesteremia On: :15 Request CBC with manual diff (22400)Indication: Carnitine deficiency On: :10 Request Metabolic Panel, Comprehensive (17971)Indication: Arthritis On: 81-Jwl-101087:10 Request LIPID PANEL (12225)Indication: Hypercholesteremia On: :10 Request CBC (AUTO) (01766)Indication: FATIGUE On: :24 Request METABOLIC PANEL, COMPREHENSIVE (03796)Indication: FATIGUE On: :24 Request Folate (12379)Indication: FATIGUE On: : Request VITAMIN B-12 (CYANOCOBALAMIN) (51166)Indication: FATIGUE On: :24 Request TSH (65541)Indication: DEPRESSIVE DISORDER (311.0) On: 53-Dkk-904446:16 Request CBC with manual diff (45029)Indication: Myopathy NOS On: 6-Aap-551303:03 Request Metabolic Panel, Comprehensive (68802)Indication: DEPRESSIVE DISORDER (311.0) On: 4-Xbj-869861:03 Request Lipid Panel (80684)Indication: Hypercholesteremia On: 3-Dyk-903002:03 Request CALCIFEDIOL (69187)Indication: Vitamin D deficiency, unspecified On: 8-Zcn-740632:02 Request Renal function Panel (71602)Indication: Neck pain On: 50-Rge-908145:14 Request CALCIFEDIOL (00364)Indication: Vitamin D deficiency, unspecified On: 26-Jun-20099:26 Request Comments: draw Beginning September 2009 TEST - SERUM QUANTITATIVE (HCG) (90624)Indication: Abnormal blood chemistry On: 90-Xej-047516:06 Request PREGNACY TEST, URINE (15905)Indication: Abnormal blood chemistry On: 40-Fis-233335:06 Request Lipid Panel (74855)Indication: Hypercholesteremia On: 55-Psp-630996:16 Request Comments: fasting Rapid Strep Test, Office (19529)Indication: Pharyngitis, acute On: 64-Ukv-418862:04 Request Thin prep Pap (24878)Indication: Well woman exam On: 11-Qhq-573941:09 Request FECAL OCCULT HGB ASSAY- tubes sent home (78137)Indication: Well woman exam On: :54 Request OCCULT BLOOD FECES SCREEN- card done in office (71265)Indication: Well woman exam On: :54 Request CPK TOTAL & ISOENZYMES (62069)Indication: Myalgia and myositis On: :37 Request CALCIFEDIOL (30789)Indication: Leg cramps On: 25-Ion-963192:36 Request VITAMIN B-12 (CYANOCOBALAMIN) (70347)Indication: Pain in unspecified joint On: :35 Request PARATHORMONE (78001)Indication: Myalgia and myositis On: :35 Request RHEUMATOID FACTOR-QUANT (81539)Indication: Pain in unspecified joint On: :15 Request SED RATE ERYTHROCYTE (23151)Indication: Pain in unspecified joint On: :15 Request Planned Encounters Medical; 2 Week FU - On: 24-May-2018 15:30 [facility] Aislinn Espinal CNP, CNP, Mary E Planned Procedures Venous Doppler - LeftBy: Teddy BINGHAM, On: 02-May-2018 Intent Aislinn Leonard CNP Aerosol Treatment (32331)By: Teddy On: 28-Mar-2018 Intent Aislinn BINGHAM CNP, Mary E Flu Vaccine (Quadrivalent) 65149Uw: On: 28-Mar-2018 Aislinn Giron CNP, CNP, Mary E Comments: Lot #[id number]-L dltd, IMDose prefilled syringegiven by: CHRISTOPHE NoriegaVIS [...] 23-Dec-2016 Intent Aislinn Araujo CNP Ear Irrigation (71255)By: Teddy On: 18-Dec-2016 Intent Aislinn BINGHAM CNP, Mary E Wax CurettesBy: Teddy Aislinn BINGHAM On: 18-Dec-2016 Intent Aislinn Espinal CNP Aerosol Treatment ([id number])By: Teddy On: 18-Dec-2016 Intent Aislinn BINGHAM CNP, Mary E Wax CurettesBy: Pamela Bates On: 01-Dec-2016 Intent Ear Irrigation ([id number])By: Paulo On: 01-Dec-2016 Intent Pamela Comments: Ear Irrigation performed on:rightAmount/color removed cerumen:small OUtcome:clear and tolerated PNEUM VAC ADLT/IMUMNOSPR, SBC/INTRM On: 19-May-2016 Intent ([id number])By: Teddy Aislinn BINGHAM CNP, Mary E Flu Vaccine (Quadrivalent) [id number]: On: 12-May-2016 Intent Aislinn Espinal CNP, CNP, Mary E Comments: FLUlot: [id number]:11/04site:Lt deltoidroute:IMdose:.5mlDEMICK, MA DEXA SCAN AXIAL SKELETON ([id number])By: On: 22-Apr-2016 Intent Swethanylakayli Aislinn BINGHAM CNP, Mary E Pap Smear, Medicare ([id number])By: Teddy On: 22-Apr-2016 Intent Aislinn BINGHAM CNP, Mary E FLU VACCINE H1N1 ([id number])By: Teddy On: 06-Mar-2015 Intent Aislinn BINGHAM CNP, Mary E Comments: Lot:[id number]:12/19/15Dose:0.5mLRoute:IMSite:L DltdGiven By:MIKE signed ADMINISTRATION OF H1N1 INFLUENZA On: 06-Mar-2015 Intent VIRUS VACCINE ([id number])By: Teddy BINGHAMAislinn Swethanylakayli BINGHAMAislinn DEXA SCAN AXIAL SKELETON ([id number])By: On: 06-Mar-2015 Intent Aislinn Espinal CNP, CNP, Mary E MAMMOGRAM, SCREENING, BOTH BREAST On: 06-Mar-2015 Intent ([id number])By: Aislinn Espinal CNP, CNP, Mary E ANNUAL DEPRESSION SCREENING, 15 On: 06-Mar-2015 Intent MINUTES ([id number])By: Aislinn Espinal CNP, CNP, Mary E Venous Doppler - LeftBy: Teddy BINGHAM, On: 29-Aug-2014 Intent Aislinn Leonard CNP MARY LAICE (Ankle Brachial Index) On: 29-Aug-2014 Intent ([id number])By: Aislinn Espinal CNP, CNP, Mary E SPECIMEN HANDLING/TRANSPORT On: 16-May-2014 Intent ([id number])By: Aislinn Espinal CNP, CNP, Mary E Flu Vaccine (Quadrivalent) [id number]: On: 19-Apr-2014 Intent Aislinn Espinal CNP, CNP, Mary E Comments: lot:[id number]:0.5mLRoute: IMlocation: L armgiven by: elyse ADMINISTRATION OF INFLUENZA VIRUS On: 19-Apr-2014 Intent VACCINE ([id number])By: Mckenzie Zhao Radiology - Lumbar SpineBy: Teddy On: 29-Dec-2013 Intent Aislinn BINGHAM CNP, Mary E Toradol Injection, 30 mg ([id number])By: On: 29-Dec-2013 Intent Aislinn Espinal CNP, CNP, Mary E Ear Irrigation ([id number])By: Eben On: 19-Apr-2013 Intent Mayela LNODONO Comments: Ear Irrigation performed on:bilateralAmount/color removed cerumen:small amount of darkl brown waxOUtcome:clearUsed wax curettes FLU VAC, SPLIT, >3 YEARS, INTRAMUSC On: 19-Apr-2013 Intent ([id number])By: Pamela Crooks LPN Comments: Lot:[id number]:6.14Amt:0.5mlRoute:IMSite: L DltdGiven By: Alejandra CMAVIS signed IMMUNIZ ADMNIN, 1 VAC, SNGL/COMBO On: 19-Apr-2013 Intent ([id number])By: Pamela Crooks LPN Wax CurettesBy: Mayela Treadwell DO On: 19-Apr-2013 Intent Eprescribed prescriptions ([id number])By: On: 19-Apr-2013 Intent Pamela Crooks LPN B 12 Injection, 1000 mcg (J3420)By: On: 28-Dec-2012 Intent Kassie Tellez LPN B 12 Injection, 1000 mcg (J3420)By: On: 29-Nov-2012 Intent Pattie Malagon LPN Comments: Lot: [id number]: [id number]: 1000mcg/1mlRoute: IMSite: L deltoidGiven by: CHRISTOPHE Allen B 12 Injection, 1000 mcg ([id number])By: On: 26-Oct-2012 Intent Jina Gomes LPN Comments: Lot #[id number]-[id number]/14Site-right deltoidDose-1 mlgiven by: Rishabh Gomes LPN B 12 Injection, 1000 mcg (J3420)By: On: 11-Oct-2012 Intent Deedee Cantrell Comments: lot: [id number]:06/03site/route: L deltoid/IMamt: 1ccVIS signed when applicableCheANDIE jeffries B 12 Injection, 1000 mcg (J3420)By: On: 05-Oct-2012 Intent Aislinn Espinal CNP, CNP, Mary E B 12 Injection, 1000 mcg (J3420)By: On: 27-Sep-2012 Intent Valencia Renee Comments: Lot:[id number]:06/03Dose:1mlRoute:IMSite:l armGiven By:BRYNN signed IMMUNIZ ADMNIN, 1 VAC, SNGL/COMBO On: 29-Mar-2012 Intent ([id number])By: Aislinn Espinal CNP Comments: lot # [id number]- 12/18/1292ievy-JNETrdmnv-HEatrz- 0.5 MLCHenAislinn thakur LPN, CNP MAMMOGRAM, SCREENING, BOTH BREASTS On: 29-Mar-2012 Intent ([id number])By: Aislinn Espinal CNP, CNP, Mary E FLU VAC, SPLIT, >3 YEARS, INTRAMUSC On: 29-Mar-2012 Intent ([id number])By: Aislinn Espinal CNP, CNP, Mary E MRI -Cervical Spine (IV Contrast On: 11-Jun-2010 Intent Needed)By: Aislinn Espinal CNP, CNP, Mary E Radiology - Cervical SpineBy: Eben On: 05-Jun-2010 Intent DO, Mayela Aerosol Treatment ([id number])By: Teddy On: 03-Sep-2009 Intent Aislinn BINGHAM CNP, Mary E Pulse Oximetry ([id number])By: Teddy BINGHAM, On: 06-May-2009 Intent Aislinn Leonard CNP Aerosol Treatment ([id number])By: Teddy On: 06-May-2009 Intent Aislinn BINGHAM CNP, Mary E IMMUNIZ ADMNIN, 1 VAC, SNGL/COMBO On: 20-Mar-2009 Intent ([id number])By: Aislinn Espinal CNP, CNP, Mary E FLU VAC, SPLIT, >3 YEARS, INTRAMUSC On: 20-Mar-2009 Intent ([id number])By: Aislinn Espinal CNP Comments: Lot #[id number]-left deltoidgiven by:Aislinn LEMONS CNP CT - Abdomen & Pelvis (IV Contrast On: 14-Mar-2009 Intent Needed)By: Aislinn Espinal CNP, CNP, Mary E Ultrasound - PelvisBy: Teddy BINGHAM, On: 14-Mar-2009 Intent Aislinn Leonard CNP Comments: attention adrenals and ovaries SPECIMEN HNDLNG/TRNSPRT, OFFC > LAB On: 18-Jan-2009 Intent ([id number])By: Aislinn Espinal CNP, CNP, Mary E DXA, BONE DENSITY, AXIAL SKELETON On: 13-Nov-2008 Intent ([id number])By: Aislinn Espinal CNP, CNP, Mary E MAMMOGRAM, SCREENING, BOTH BREASTS On: 13-Nov-2008 Intent ([id number])By: Aislinn Espinal CNP, CNP, Mary E ELECTROCARDIOGRAM, COMPLETE (ECG) On: 11-Oct-2008 Intent ([id number])By: Ciesa COLLECTION COORDINATOR, Divya Ciesa COLLECTION COORDINATOR, Divya Planned Medications INJECTION, KETOROLAC TROMETHAMINE, PER 15 MG Ordered: 29-Dec-2013 Pending Alidakayli BINGHAM Aislinn Aragon Swethanylakayli BINGHAM Aislinn Aragon INJECTION, METHYLPREDNISOLONE SODIUM SUCCINATE, UP TO 125 MG Ordered: 03-Dec-2017 Pending Teddy ZACHERY Aislinn Espinal ZACHERY, Aislinn Aragon Vitamin B-12 1000 MCG/ML Injection Solution Ordered: 27-Sep-2012 Pending Valencia Renee Vitamin B-12 1000 MCG/ML Injection Solution Ordered: 05-Oct-2012 Pending Swethanylakyali BINGHAM Divya Cinylakayli BINGHAM, Aislinn Aragon Vitamin [...] D deficiency, unspecified : DISCONTINUED - CALCIFEDIOL ([id number]) Indication: Vitamin D deficiency, unspecified B12 deficiency [...] patient does not have durable power of greek professor or living will. The patient has noticed feeling helpless (feels depressed jasiel etimes). Other providers contributing to the patient's care are electronic console display operator (Dr Genao) and other: (Neuro Danielle Mariee at [facility]).Encounter Diagnosis: Annual Medicare Physical (V70.0), Breast [...] patient does not have durable power of greek professor or living will. The patient has noticed staying at home rather than doing something new or going out and lack of energy. Other providers contributing to the patient's care are electronic console display operator and other: (neuromuscular spec. Manriquez). Comprehensive Internal [...] keep the care continum I was at [facility] yesterday Encounter Diagnosis: DEPRESSIVE DISORDER (311.0), [...] medication use: no s End: 13-Feb-2009 13:35 joide effects. Patient sleeps 8 hours per night. [...]
--- OUTSIDE RECORDS SUMMARY | 2018-07-18 08:27 | XMS RPT_ITS | Continuity of Care Document ---
:1950 Author Organization [facility] Address [address] 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 Manriquez at [facility] getting carotene weekly IV twice [...] days Quantity: 1 {Bottle} Refills: 0 Ordered:11-Oct-2015 Tdedy BINGHAM Aislinn Ema BINGHAM Aislinn Aragon Start [...] : 18-Dec-2016 End : 28-Dec-2016 Inactive ERGOCALCIFEROL, 64401SVEJ (Oral Capsule) 1 (one) Capsule twice weekly [...] 3 days then 1 tab tid NYSTATIN, 453768EDKI/ML (Mouth/Throat Suspension) 4 Milliliter qid for 7 days Quantity: 1 {qs} Refills: 0 Ordered:23-Dec-2010 Teddy DEVULCANIZER TENDER, Aislinn Boo DEVULCANIZER TENDER, Aislinn Aragon Start : 23-Dec-2010 End : [...] 11-Apr-2012 End : 11-Oct-2015 Discontinued VITAMIN D, 75647BVTQ (Oral Capsule) 1 (one) Capsule twice weekly [...] [facility] Department [address] [place] [address] Operative Report 01/25/18 1254 MR#: [id number] Acct: [id number] Name: HANNA CHAVEZ Rep #: [id number] : 1950 67 From: Vaishnavi Dietz MD PCP: Aislinn Boykin NP Status: REG [facility] Y Location: [place] [address] Problem List (1) Urinary tract infection Status: Acute Report of Operation Date of Procedure: 01/25/18 Pre-Operative Diagnosis: urinary tract infection, pelvic pain Post-Operative Diagnosis: same and rectocele Surgery/Procedure Performed:: cystoscopy and pelvic exam under anesthesi a Description of Surgical Findings:: normal cystoscopy. very short anterior vaginal wall. grade 3 rectocele. atrophy. 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 operator: Vaishnavi Dietz Type of Anesthesia:: MAC Specimen's [...] [facility] Medical Records Department [address] [place] [address] Instructions for Home/Discharge Instructions 01/25/18 1228 MR#: [id number] Acct: [id number] Name: HANNA CHAVEZ Rep #: [id number] : 1950 67 From: Vaishnavi Dietz MD PCP: Aislinn Boykin NP Status: REG [facility] Discharge Diet: No Restrictions [...] DAILY 05/23/13 Triamcinolone Acetonide [Nasacort Aq Nasal [place]] 2 spray NASAL DAILY PRN 05/23/13 Levocarnitine [...] [facility] Imaging Services [address] [place] [address] Kidney and Bladder MR#: [id number] Acct: [id number] Name: HANNA CHAVEZ Rep #: [id number] DO B: 1950 F 67 From: Tee Weems PCP: Aislinn Boykin NP Status: REG CLI Study: Kidney and Bladder Date of Exam: 01/17/18 Exam# [id number] Ordering Dr: Vaishnavi Dietz MD STUDY: RENAL [...] CC: Aislinn Boykin NP; Vaishnavi Dietz MD Nutritionist Public Health: Signed 29-Dec-2017 Transvaginal Non- Result: Comments: See Note; NOTES: [facility] Imaging Services [address] [place] [address] Transvaginal Non- MR#: [id number] Acct: [id number] Name: HANNA CHAVEZ Rep #: [id number] : 1950 F 67 From: Jacky Hanson MD PCP: Aislinn Boykin NP Status: REG CLI Study: Transvaginal Non- Date of Exam: 12/29/17 Exam# [id number] Ordering Dr: Vaishnavi Dietz MD STUDY: U [...] CC: Aislinn Boykin NP; Vaishnavi Dietz MD Nutritionist Public Health: Signed 09-Dec-2017 Downtime Report Result: Comments: See Note; NOTES: [facility] Medical Records Department [address] [place] [address] Downtime Report MR#: [id number] Acct: [id number] Name: HANNA CHAVEZ Rep #: [id number] : 1950 67 From: Elmer Moreno PCP: Aislinn Boykin NP Status: REG CLI This patient was seen during an EMR downtime November 22, 2017 - November 29, 2017. This patient may have a combination of paper and electronic documentation or all paper documentation. All documentation is viewable within the e-chart portion of Echograph for each patient visit. 09-Dec-2017 Downtime Report Result: Comments: See Note; NOTES: [facility] Medical Records Department [address] [place] [address] Downtime Report MR#: [id number] Acct: [id number] Name: HANNA CHAVEZ Rep #: [id number] : 1950 67 From: Elmer Moreno PCP: Aislinn Boykin NP Status: REG CLI This patient was seen during an EMR downtime November 22, 2017 - November 29, 2017. This patient may have a combination of paper and electronic documentation or all paper documentation. All documentation is viewable within the e-chart portion of Echograph for each patient visit. 03-Dec-2017 Foot min 3 Views Result: Comments: See Note; NOTES: [facility] Imaging Services [address] [place] [address] Foot min 3 Views MR#: [id number] Acct: [id number] Name: NIKO CHAVEZApolinar Thapa Rep #: [id number] : 1950 F 67 From: Yahir Wolfe MD PCP: Aislinn Boykin NP Status: REG CLI Study: Foot min 3 Views Date of Exam: 12/03/17 Exam# [id number] Ordering Dr: Aislinn Boykin STUDY: X-RAY - [...] Service support , CC: Aislinn Boykin NP Nutritionist Public Health: Signed 23-Dec-2016 Chest PA and Lateral Result: Comments: See Note; NOTES: [facility] Imaging Services [address] [place] [address] [address] 4d Chest PA and Lateral MR#: [id number] Acct: [id number] Name: HANNA CHAVEZ Rep #: [id number] : 1950 F 66 From: Juan Woody MD PCP: Aislinn Boykin Status: REG CLI Study: Chest PA and Lateral Date of Exam: 12/23/16 Exam# [id number] Ordering Dr: Danielle Manriquez MD STUDY: X-RAY [...] , Service support , CC: Aislinn Manriquez Nutritionist Public Health: Signed 05-Jul-2016 Discharge Instruction Result: Comments: See Note; NOTES: [facility] Medical Records Department [address] [place] [address] Discharge Instruction 07/05/162116 MR#: [id number] Acct: [id number] Name: JOSH CHAVEZ Rep #: [id number] : 1950 66 From: Sarabjit Salinas MD [...] your Primary Care Provider. Call [facility] ([phone]) or report to the closest Emergency Room. Call 911 if necessary. 07/05/16 21 19 <Electronically signed by Sarabjit Salinas MD> Date Sarabjit Salinas MD Cosigner Signature (If Indicated): Date CC: Aislinn Boykin 05-Jul-2016 Emergency Department Summary Result: Comments: See Note; NOTES: [facility] Medical Records Department [address] [place] [address] Emergency Department Summary 07/05/162113 MR#: [id number] Acct: [id number] Name: HANNA CHAVEZ Rep #: [id number] : 1950 66 From: Sarabjit Salinas MD [...] your Primary Care Provider. Call [facility] ([phone]) or repor t to the closest Emergency Room. Call 911 if necessary. 07/05/162116 <Electronically signed by Sarabjit Salinas MD> Date Sarabjit Salinsa MD Cos igner Signature (If Indicated): Date CC: Aislinn Boykin 16-Apr-2015 Emergency Department Summary Result: Comments: See Note; NOTES: [facility] Medical Records Department [address] [place] [address] Emergency Department Summary MR#: [id number] Acct: [id number] Name: HANNA CHAVEZ Rep #: [id number] : 1950 64 From: Breanna Ryan MD [...] pain. Breanna Ryan MD T: NTS JOB: [id number] 04/16 2359 <Electronically signed by Breanna Ryan MD> Date Breanna Ryan MD Cosigner Signature (If Indicated): Date _ CC: Carla Hughes MD Date Dictated: 04/15/15816 Date Transcribed: 04/15/15816 Nutritionist Public Health: Signed 15-Apr-2015 Discharge Instruction Result: Comments: See Note; NOTES: [facility] Medical Records Department [address] [place] [address] Discharge Instruction 04/15/15808 MR#: [id number] Acct: [id number] Name: HANNA CHAVEZ Rep #: [id number] : 1950 64 From: Breanna Ryan MD [...] problems, contact your doctor. Call [facility] ([phone]) or report to the closest Emergency Room. Call 911 if necessary. 04/15/15 0818 <Electronically signed by Breanna Ryan MD> Date Breanna Ryan MD Cosigner Signature (If Indicated): Date CC: Carla Hughes MD 03-Dec-2014 Emergency Department Summary Result: Comments: See Note; NOTES: [facility] Medical Records Department [address] [place] [address] Emergency Department Summary MR#: [id number] Acct: [id number] Name: HANNA CHAVEZ Rep #: [id number] : 1950 64 From: Shruthi Savage DO PCP: Carla Hughes MD Status: [facility] DATE OF SERVICE: 11/15/2014 CHIEF COMPLAINT: [...] Hughes. 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 Shruthi Savage DO T: NTS JOB: [id number] 12/03/14 2329 <Electronically signed by Shruthi Savage DO> Date Thalia Savage DO CC: Carla Hughes MD Date Dictated: 11/15/141931 Date Transcribed: 11/15/141931 Nutritionist Public Health: Signed 16-Nov-2014 12 Lead Electrocardiogram Result: Comments: See Note; NOTES: [facility] Cardiovascular Services [address] [place] [address] 12 Lead EKG 11/15/14 1626 MR#: [id number] Acct: [id number] Name: HANNA CHAVEZ Rep #: [id number] : 1950 64 From: Lamont Lucas MD [...] l ECG Confirmed by LAMONT LUCAS ([id number]), sound editor LAKIA MORENO ([id number]) on 11/16/2014 10:58:54 AM Referred By: JERE Confirmed By:LAMONT LUCAS 11/16/14 1059 Date Lamont Lucas MD CC: Carla Hughes MD Date Dictated: 11/15/141625 Date Transcribed: 11/15/141625 Nutritionist Public Health: Signed 15-Nov-2014 Discharge Instruction Result: Comments: See Note; NOTES: [facility] Medical Records Department [address] [place] [address] Discharge Instruction 11/15/141924 MR#: [id number] Acct: [id number] Name: HANNA CHAVEZ Rep #: [id number] : 1950 64 From: Shruthi Savage DO [...] problems, contact your doctor. Call [facility] ([phone]) or report to the [facility] Emergency Room. Call 911 if necessary. 11/15/141927 <Electronically signed by Shruthi Savage DO> Date Shruthi Savage DO Co signer Signature (If Indicated): Date CC: Carla Hughes MD 15-Nov-2014 CTA Chest W/WO Contrast Result: Comments: See Note; NOTES: [facility] Imaging Services [address] [place] [address] CAT Scan Report MR#: [id number] Acct: [id number] Name: HANNA CHAVEZ Rep #: [id number] : 1950 F 64 From: Chele Puckett MD PCP: Carla Hughes MD Status: REG ER Study: CTA Chest W/WO Contrast Date of Exam: 11/15/14 Exam# [id number] Ordering Dr: Shruhti Savage DO STUDY: CTA C HEST REASON [...] MD at 19:05 EDT , Service support [phone], CC: Carla Hughes MD; Shruthi Savage DO Nutritionist Public Health: Signed 15-Nov-2014 Chest PA and Lateral Result: Comments: See Note; NOTES: [facility] Imaging Services [address] [place] [address] Radiology Report MR#: [id number] Acct: [id number] Name: HANNA CHAVEZ Rep #: [id number] : 1950 F 64 From: Martín Morales MD PCP: Carla Hughes MD Status: DEP ER Study: Chest PA and Lateral Date of Exam: 11/15/14 Exam# [id number] Ordering Dr: Shruthi Savage DO STUDY: X- [...] Martín Morales MD at 9:28 EDT Tel [phone], Service support [phone], 0062 RAD/Chest PA and Lateral IMPRESSION: No acute abnormality is seen. Electronically Signed: Martín Morales MD at 9:28 EDT Tel [phone], Service support [phone], CC: Carla Hughes MD; Shruthi Savage DO Nutritionist Public Health: Signed 29-Dec-2013 L/S Spine Min 4 Views Result: Comments: See Note; NOTES: [facility] Imaging Services [address] [place] [address] Radiology Report MR#: [id number] Acct: [id number] Name: HANNA CHAVEZ Rep #: [id number] : 1950 F 63 From: Nirmal Watts PCP: Carla Hughes MD Status: REG CLI Study: L/S Spine Min 4 Views Date of Exam: 12/29/13 Exam# [id number] Ordering Dr: Carla Hughes MD STUDY: X-RAY [...] DO at 23:38 EDT , Service support [phone], CC: Carla Hughes MD Nutritionist Public Health: Signed Immunization Name Dates Details Influenza (3 years and up) on: 20-Mar-2009 Comments: Lot #[id number] deltoidgiven by:CDH Family History Unknown Family Member Name Dates Details No Known Family History Status: Active Social History Name Dates Details Tobacco use: Never smoker. Status: Active Smoking Status Name Dates Details Never smoker Vital Signs Date Test Result Details 67-Kco-005551:09 Temperature 97.9 f Comments: Method: Temporal Pulse [...] m2 :31 [facility].2 f Pulse 86 /min Comments: [...] :57 Comments: Glaucoma screening done at the [facility] yearly Temperature 97.9 f Pulse 66 [...] Value Details :04 CBC W/Diff, Automated Comments: [facility] [address] [place], [place], [address] Absolute Lymph 1.95 {X10_3/ul} (Normal) Range: 0.83-4.51 [...] Range: 4.4-11.0 :04 Comprehensive Metabolic Profil Comments: [facility] [address] [place], [place], [address] GAP 5 (Normal) Range: 5-15 CO2 26.0 [...] Comments: Please note revised GLUCOSE reference range zchidxvck27/02/2018. 00-Ahg-928683:32 CBC W/Diff, Automated Comments: [facility] [address] [facility] [place], [address] Absolute Lymph 1.39 {X10_3/ul} (Normal) [...] 4.2-5.4 WBC 4.9 K/mm3 (Normal) Range: 4.4-11.0 83-Jtg-966018:32 Comprehensive Metabolic Profil Comments: Comments: [facility] [address], [place], [address] GAP 6 (Normal) Range: 5-15 CO2 27.0 [...] Comments: Please note revised GLUCOSE reference range qvgmzfqpa63/02/2018. 40-Vuv-184340:32 Thyroid Stim Hormone (TSH) Comments: Comments: [facility] [address]adzcgnvv[address] [facility]. [place], [place], [address] TSH 1.47 {uIU/mL} (Normal) Range: 0.358-3.74 42-Yev-352896:51 Vitamin B12 > 2000 pg/mL (Abnormal) Comments: [facility] [address] [facility] [place], [address] Range: 211-911 21-Iec-202109:11 CBC W/Diff, Automated Comments: [facility] [address] [place], [place], [address] Absolute Lymph 1.66 {X10_3/ul} (Normal) Range: 0.83-4.51 [...] 4.2-5.4 WBC 5.9 K/mm3 (Normal) Range: 4.4-11.0 82-Zss-559640:11 Comprehensive Metabolic Profil Comments: [facility] [address] [place], [place], [address] GAP 8 (Normal) Range: 5-15 CO2 26.0 [...] Comments: Please note revised GLUCOSE reference range akkvnltyw65/02/2018. 41-Wvi-702916:47 Culture, Urine Comments: [facility] [address] [place], [place], [address] CUUR See Note (Normal) Comments: Urine CultureORGANISM 1: Mixed Gram Pos AND Gram Neg OrgColony Count 50,000-80,000MIX CULTURE Mixed contaminants. Submit a new specimen if indicated. 25-Dra-057517:47 Urinalysis, Complete Comments: How was Urine Obtained? CLEAN [facility] [address]iw[address] [facility] [address] [place], [place], [address] MUCUS, URINE 0 SEEN {/hpf} (Normal) BACTERIA [...] BELOW (Normal) Comments: Visual Urine Color: GREEN 24-Plm-165952:41 TSH (55783) Comments: PATIENT NOT FASTINGPERFORMED BY: HIREN [employer] Ywfcvj9026 [facility] [id number] TSH 2.310 {uIU/mL} (Normal) Range: 0.450-4.500 62-Lfy-417755:28 URINE DELMAR CULTURE-IDENTIFICATN Comments: PATIENT NOT FASTINGPERFORMED BY: HIREN LabCoMarlton Rehabilitation HospitalCugeuj6973 [facility] [id number] Information: SRC:UR (95683) Result 1 MUG (Normal) Comments: Mixed urogenital flora1,000 Colonies/mL Urine Culture,Comprehensive Final report (Normal) :41 Metabolic Panel, Comprehensive Comments: PATIENT NOT FASTINGPERFORMED BY: H[employer] Grzsxt9595 [facility] [id number] (25034) ALT (SGPT) 16 [iU]/L (Normal) Range: 0-32 [...] 8-27 Glucose 89 mg/dL (Normal) Range: 65-99 94-Two-327656:02 Urinalysis, Office (24771) UA - LEUKOCYTE ESTERASE Small (Normal) UA - NITRITE Negative (Normal) URINE UROBILINGN JEROME TIMED Normal mg/dL (Normal) UA - PROTEIN Negative mg/dL (Normal) UA - PH 7.5 (Normal) UA - BLOOD Negative (Normal) UA - SPECIFIC GRAVITY 1.020 (Normal) UA - KETONES Negative mg/dL (Normal) UA - BILIRUBIN Negative (Normal) UA - GLUCOSE Negative (Normal) 81-Zjd-480420:54 LDH (LD) (LACTATE DEHYDROGENASE) Comments: PATIENT NOT FASTINGPERFORMED BY: [employer] PowerCrownpoint Health Care FacilityEdldfl1684 [facility] [id number] (68635) LDH 191 [iU]/L (Normal) Range: 119-226 29-Bjn-027068:54 RHEUMATOID FACTOR-QUANT (81171) Comments: PATIENT NOT FASTINGPERFORMED BY: LabCoMarlton Rehabilitation HospitalKgjaly8314 [facility] [id number] RA Latex Turbid. <10.0 {IU/mL} (Normal) Range: 0.0-13.9 :54 C-Reactive Protein (93874) Comments: PATIENT NOT FASTINGPERFORMED BY: LabCoMarlton Rehabilitation HospitalEuimls1625 [facility] [id number] C-Reactive Protein, Quant 6.1 mg/L (Abnormal) Range: 0.0-4.9 :54 SED RATE ERYTHROCYTE (50875) Comments: PATIENT NOT FASTINGPERFORMED BY: LabCoMarlton Rehabilitation HospitalGsydaw4107 [facility] [id number] Sedimentation Rate-Westergren 16 mm/h (Normal) Range: 0-40 4-Lzy-215975:40 CPK Total, Creatine Kinase Comments: 48[facility] [address] [place], [place], [address] CPK TOTAL 68 U/L (Normal) Range: 26-192 20-Ghe-466972:12 Culture, Urine Comments: [facility] [address] [place], [place], [address] CUUR See Note (Normal) Comments: Urine CultureORGANISM [...] $ <=20 S(NF) indicates non-formulary drug at [facility]. Approval by Infectious Disease Specialist required before non- formulary drugs may be ordered and/or dispensed. 29-Pbd-325698:12 Urinalysis, Routine (Dipstick) Comments: How was Urine Obtained? CLEAN [facility] [address] [place], [address] LEUK ESTERASE 500 /ul (Abnormal) OCCULT BLOOD-UR 50 /ul (Abnormal) NITRITE UR Positive (Abnormal) UROBILI Normal mg/dL (Normal) PROT DIPSTX 100 mg/dL (Abnormal) pH UR 6.0 (Normal) Range: 5.0 - 8.0 SP.GR. DIPSTX 1.025 (Normal) Range: 1.002-1.030 KETONE UR Negative mg/dL (Normal) BILIRUBIN URINE Negative mg/dL (Normal) GLUCOSE, UR Normal mg/dL (Normal) CLARITY Cloudy (Normal) COLOR Yellow (Normal) 46-Gnc-022676:15 CBC W/Diff, Automated Comments: [facility] [address] [place], [address] Absolute Lymph 1.50 {X10_3/ul} (Normal) [...] 4.2-5.4 WBC 4.6 K/mm3 (Normal) Range: 4.4-11.0 57-Rir-085047:15 Comprehensive Metabolic Profil Comments: [facility] [address] [place], [place], [address] GAP 7 (Normal) Range: 5-15 CO2 28.0 mmol/L (Normal) Range: 21.0-32.0 CL 106 mmol/L (Normal) Range: 98-107 K 3.6 mmol/L (Normal) Range: 3.5-5.1 NA 141 mmol/L (Normal) Range: 136-145 T BILI 0.60 mg/dL (Normal) Range: 0.20-1.00 ALT 27 U/L (Normal) Range: 13-56 Comments: Please note revised ALT reference range mufrgrywu49/28/2018. ALK P 68 U/L (Normal) Range: 45-117 [...] A.D.A. criteria.Please note revised GLUCOSE reference range hijseaqfp89/02/2018. 8-Jih-738533:59 CPK Total, Creatine Kinase Comments: [facility] [address] [place], [place], [address] CPK TOTAL 55 U/L (Normal) Range: 26-192 7-Zoh-308741:59 GGTP 140 U/L (Abnormal) Comments: [facility] [address] [place], [address] Range: 5-55 24-Jun-20179:50 CBC W/Diff, Automated Comments: [facility] [address] [facility] [address] [place], [place], [address] Absolute Lymph 1.40 {X10_3/ul} (Normal) Range: 0.83-4.51 [...] Range: 4.4-11.0 24-Jun-20179:50 Comprehensive Metabolic Profil Comments: [facility] [address] [place], [place], [address] GAP 7 (Normal) Range: 5-15 CO2 28.0 [...] <126 mg/dLsuggests IMPAIRED HOMEOSTASIS per A.D.A. criteria. 75-Upn-929706:00 CBC W/Diff, Automated Comments: [facility] Ztpaxcmcor[address] [facility] [place], [place], [address] ; Dr Fiore Absolute Lymph 1.66 {X10_3/ul} [...] 4.2-5.4 WBC 5.2 K/mm3 (Normal) Range: 4.4-11.0 96-Yuy-852473:00 Comprehensive Metabolic Profil Comments: [facility] [address] [place], [address] GAP 5 (Normal) Range: 5-15 CO2 27.0 [...] 7-18 GLU 106 mg/dL (Normal) Range: 70-110 05-Bmw-030277:00 CBC W/Diff, Automated Comments: [facility] [address] [place], [place], [address] ; rheum Absolute Lymph 1.83 {X10_3/ul} (Normal) [...] 4.2-5.4 WBC 5.8 K/mm3 (Normal) Range: 4.4-11.0 22-Qxo-684074:00 Comprehensive Metabolic Profil Comments: [facility] [address] [place], [address] ; Dr moreno GAP 7 [...] 7-18 GLU 98 mg/dL (Normal) Range: 70-110 95-Gmg-568337:39 CBC W/Diff, Automated Comments: [facility] [address] [place], [address] SMEAR COMMENT SCANNED (Normal) Absolute [...] 4.2-5.4 WBC 11.4 K/mm3 (Abnormal) Range: 4.4-11.0 75-Ycc-596171:39 Comprehensive Metabolic Profil Comments: [facility] [address] [place], [address] GAP 10 (Normal) Range: 5-15 CO2 23.0 [...] 126 mg/dLsuggests DIABETES MELLITUS per A.D.A. criteria. 57-Dxq-568120:39 Lipase Comments: [facility] [address] [place], [address] LIPASE 86 U/L (Normal) Range: 73-393 23-Apr-20167:01 Pap IG (Image Comments: Source.............Cervix;EndocervixNo. of containers..01 CYTYC Thin Prep VialPATIENT NOT FASTINGPERFORMED BY: =G [facility] [address] [id number] BY: WB [facility] Guided) [facility]120 [facility] [id number] Note: PAPSMR (Normal) Comments: The Pap smear [...] Prep VialPATIENT NOT FASTINGPERFORMED BY: =G [facility] [address] [id number] BY: WB [facility] ([address]) (no STD rp [address] [id number] Information: [id number]; ov in 2 weeks testing) Age Gdln ACOG Testing AGE4 (Normal) Comments: <21 or >65 or no age provided 88-Zyr-253062:55 CBC W/Diff, Automated Comments: [facility] [address] [place], [place], [address] Absolute Lymph 1.88 {X10_3/ul} (Normal) Range: 0.83-4.51 [...] Range: 4.4-11.0 :55 Comprehensive Metabolic Profil Comments: [facility] [address] [place], [place], [address] GAP 7 (Normal) Range: 5-15 CO2 28.0 [...] Range: 70-110 :52 CBC W/Diff, Automated Comments: [facility] [address]flsd[address] [place], [place], [address] Absolute Lymph 1.74 {X10_3/ul} (Normal) Range: 0.83-4.51 [...] 4.2-5.4 WBC 5.0 K/mm3 (Normal) Range: 4.4-11.0 26-Mal-442764:52 Comprehensive Metabolic Profil Comments: [facility] [address] [place], [place], [address] GAP 6 (Normal) Range: 5-15 CO2 29.0 [...] 7-18 GLU 107 mg/dL (Normal) Range: 70-110 19-Jys-835488:52 Vitamin D,25 Hydroxy Comments: [facility] [address], [place], [address] Vitamin D 25-OH 23.6 ng/mL (Normal) Comments: Vitamin D 25(OH) Status Range Deficiency <20 ng/mL (50nmol/L) Insuffciency 20 - 30 ng/mL (50 - 75 nmol/L) Sufficiency 30 - 100 ng/mL (75 - 250 nmol/L) Toxicity >100 ng/mL (>250 nmol/L) :34 URINE DELMAR CULTURE-JEROME COL Comments: PATIENT NOT FASTINGPERFORMED BY: [facility] Bbriuy1336 [facility] [id number] Information: SRC:UR Q08393 COUNT (27997) Result 1 MUG (Normal) Comments: Mixed urogenital floraGreater than 100,000 colony forming units per mL Urine Culture,Comprehensive Final report (Normal) 27-Xfs-082264:21 Urinalysis, Office (59378) UA - LEUKOCYTE ESTERASE Trace (Normal) UA - NITRITE Negative (Normal) URINE UROBILINGN JEROME TIMED Normal mg/dL (Normal) UA - PROTEIN Negative mg/dL (Normal) UA - PH 6.0 (Normal) Comments: 5.5 UA - BLOOD Negative (Normal) UA - SPECIFIC GRAVITY 1.030 (Abnormal) UA - KETONES Negative mg/dL (Normal) UA - BILIRUBIN Negative (Normal) UA - GLUCOSE Negative (Normal) 39-Wdb-294979:10 CBC W/Diff, Automated Comments: [facility] [address] [place], [place], [address] Absolute Lymph 1.44 {X10_3/ul} (Normal) Range: 0.83-4.51 [...] 4.2-5.4 WBC 4.3 K/mm3 (Abnormal) Range: 4.4-11.0 86-Qpr-017277:10 Comprehensive Metabolic Profil Comments: [facility] [address] [place], [address] GAP 3 (Abnormal) Range: 5-15 CO2 28.0 [...] 126 mg/dLsuggests DIABETES MELLITUS per A.D.A. criteria. 83-Dri-738245:10 Vitamin D,25 Hydroxy Comments: [facility] [address]bu[address] [place], [id number] Vitamin D 25-OH 20.8 ng/mL (Normal) Comments: Vitamin D 25(OH) Status Range Deficiency <20 ng/mL (50nmol/L) Insuffciency 20 - 30 ng/mL (50 - 75 nmol/L) Sufficiency 30 - 100 ng/mL (75 - 250 nmol/L) Toxicity >100 ng/mL (>250 nmol/L) 93-Jyc-352767:16 CBC W/Diff, Automated Comments: [facility] Q[address]hlxl[address] [place], [id number] ; ordered by another doctor Absolute Lymph [...] 4.2-5.4 WBC 5.1 K/mm3 (Normal) Range: 4.4-11.0 90-Tuc-813490:16 Comprehensive Metabolic Profil Comments: [facility] [address] [place], [id number] ; ordered by another doctor GAP 7 [...] 7-18 GLU 87 mg/dL (Normal) Range: 70-110 76-Shx-680624:16 Vitamin D,25 Hydroxy Comments: [facility] L[address]embv[address]xd[address] [place], [id number] ; ordered by another doctor Vitamin D 25-OH 33.2 ng/mL (Normal) Comments: Vitamin D 25(OH) Status Range Deficiency <20 ng/mL (50nmol/L) Insuffciency 20 - 30 ng/mL (50 - 75 nmol/L) Sufficiency 30 - 100 ng/mL (75 - 250 nmol/L) Toxicity >100 ng/mL (>250 nmol/L) :22 CBC W/Diff, Automated Comments: [facility] [address] [place], [address] Absolute Lymph 1.19 {X10_3/ul} (Normal) [...] 4.2-5.4 WBC 4.6 K/mm3 (Normal) Range: 4.4-11.0 7-Mhe-991808:22 Comprehensive Metabolic Profil Comments: [facility] [address] [place], [place], [id number] GAP 3 (Abnormal) Range: 5-15 CO2 29.0 [...] 7-18 GLU 100 mg/dL (Normal) Range: 70-110 9-Lve-692891:22 Lipid Profile Comments: [facility] [address] [place], [place], [address] VLDL 16 mg/dL (Normal) Range: 5-40 LDL [...] 200-240 mg/dL Borderline >240 mg/dL High Risk 5-Kuf-324876:22 Thyroid Stim Hormone (TSH) Comments: [facility] [address] [place], [address] TSH 1.39 {uIU/mL} (Normal) Range: 0.358-3.74 15-Amt-012369:30 CBC W/Diff, Automated Comments: Comments: IVT TO DRAW OFF PORTHas pt arrived? YTest performed at:[facility] Nejjyxjjhb8646 [facility] [address]. [place], [place] [address] Absolute Lymph 1.56 {X10_3/ul} (Normal) Range: 0.83-4.51 [...] 4.2-5.4 WBC 4.7 K/mm3 (Normal) Range: 4.4-11.0 10-Yvp-435634:30 Comprehensive Metabolic Profil Comments: Has pt arrived? YComments: IVT TO DRAW FROM PORTTest performed at:[facility] [address]fr[address] [place] [address] GAP 8 (Normal) Range: 5-15 CO2 [...] Comments: Please note revised CREATININE reference range kvfgpgzan97/22/2015. BUN 21 mg/dL (Abnormal) Range: 7-18 GLU 133 mg/dL (Abnormal) Range: 70-110 Comments: Fasting Glucose result greater than or equal to 126 mg/dLsuggests DIABETES MELLITUS per A.D.A. criteria. 28-Vty-229319:30 Vitamin D,25 Hydroxy Comments: Has pt arrived? YTest performed at:[facility] [address]mpq[address] [place] [address] Vitamin D 25-OH 22.5 ng/mL (Normal) Comments: Vitamin D 25(OH) Status Range Deficiency <20 ng/mL (50nmol/L) Insuffciency 20 - 30 ng/mL (50 - 75 nmol/L) Sufficiency 30 - 100 ng/mL (75 - 250 nmol/L) Toxicity >100 ng/mL (>250 nmol/L) 60-Gjc-969662:42 D-Dimer Quantitative (DVT/PE) Comments: Test performed at:[facility] [address] [place] [address] D-DIMER QUANT 0.54 {FEU/ug/m} (Abnormal) Range: 0.27-0.49 Comments: D-Dimer ELEVATED (>0.49): Additional studies and clinicalassessments are indicated to conclude diagnosis of:Deep Vein Thrombosis (DVT) or Pulmonary Embolism (PE)CRITICAL VALUE CALLED TO [place] [address]/2 02/02 Ashish Griffin.RESULTS READ BACK BY SAME . 34-Zdx-508642:39 Lipase Comments: Test performed at:[facility] [address] [place] [address] LIPASE 96 U/L (Normal) Range: 70-290 70-Mtz-478845:22 BNP,B-Type NATRIURETIC PEPTIDE Comments: Test performed at:[facility] [address]ird[address]wyva64[address] [facility] [place] [address] B-TYPE FATOUMATA PEP 124.8 pg/mL (Abnormal) Range: 0-100 00-Qha-580113:22 CBC W/Diff, Automated Comments: Test performed at:[facility] [address] [place] [address] Absolute Lymph 2.09 {X10_3/ul} (Normal) [...] 4.2-5.4 WBC 5.9 K/mm3 (Normal) Range: 4.4-11.0 97-Jkh-390418:22 CK-MB Quantitative and Index Comments: Test performed at:[facility] Svjusktwnj17[address] [facility]. [place], [place] [id number] CPKMB 0.7 ng/mL (Normal) Range: 0.0-5.0 Comments: CK-MB and RI Interpretation MB Relative Index Non-AMI <or= 5 NA Indeterminate > 5 <or= 4 AMI > 5 > 4 CPK TOTAL 97 U/L (Normal) Range: 26-192 42-Gge-322479:22 Comprehensive Metabolic Profil Comments: 'TROP' Serial specimen #1, #2, #3, or #4: 1Test performed at:[facility] Xithdvscwm7322 [facility]. [place], [place] [id number] GAP 9 (Normal) Range: 5-15 CO2 25.0 [...] 126 mg/dLsuggests DIABETES MELLITUS per A.D.A. criteria. 45-Enj-204833:22 Troponin-I Comments: 'TROP' Serial specimen #1, #2, #3, or #4: 1Test performed at:[facility] [address] [place] [address] TROPONIN-I < 0.02 ng/mL (Normal) Comments: TROPONIN-I EXPECTED VALUES <0.05 NEGATIVE 0.06 - 0.59 AT RISK OF UT > OR = 0.60 SUGGEST UT 95-Eae-244976:20 Urinalysis, Complete Comments: Order Date: 11/15/14How was Urine Obtained? CLEAN CATCHTest performed at:[facility] [address]ir[address] [place], [place] [id number] AMORPHOUS 1+ PHOS (Normal) MUCUS, URINE 0 [...] CLARITY Sl. Cloudy (Normal) COLOR Yellow (Normal) 59-Yvq-993073:00 CBC W/Diff, Automated Comments: Comments: IVT TO DRAWTest performed at:[facility] [address] [place] [address] Absolute Lymph 1.62 {X10_3/ul} (Normal) [...] 4.2-5.4 WBC 5.8 K/mm3 (Normal) Range: 4.4-11.0 03-Bmt-538920:00 Comprehensive Metabolic Profil Comments: Comments: IVT TO DRAWTest performed at:[facility] [address] [place] [address] GAP 4 (Abnormal) Range: 5-15 [...] 126 mg/dLsuggests DIABETES MELLITUS per A.D.A. criteria. 65-Tqf-435017:25 CBC W/Diff, Automated Comments: Test performed at:[facility] [address]ufc[address] [place] [address] Absolute Lymph 1.28 {X10_3/ul} (Normal) [...] 4.2-5.4 WBC 5.0 K/mm3 (Normal) Range: 4.4-11.0 51-Iso-860517:25 Comprehensive Metabolic Profil Comments: Test performed at:[facility] [address] [place] [address] GAP 4 (Abnormal) Range: 5-15 CO2 29.0 [...] 7-18 GLU 100 mg/dL (Normal) Range: 70-110 25-Hwq-584591:21 URINE DELMAR CULTURE-JEROME COL Comments: PATIENT NOT FASTINGPERFORMED BY: [facility] Aoxnkv1155 [facility] [id number] Information: SRC:UR [id number] COUNT (78718) Result 1 MUG (Normal) Comments: Mixed urogenital flora1,000 Colonies/mL Urine Culture,Comprehensive Final report (Normal) 03-Ngg-527382:35 Urinalysis, Office (85724) UA - LEUKOCYTE ESTERASE Trace (Normal) UA - NITRITE Negative (Normal) URINE UROBILINGN JEROME TIMED Normal mg/dL (Normal) UA - PROTEIN Negative mg/dL (Normal) UA - PH 6.0 (Normal) Comments: 5.5 UA - BLOOD Negative (Normal) UA - SPECIFIC GRAVITY 1.030 (Abnormal) UA - KETONES Negative mg/dL (Normal) UA - BILIRUBIN Negative (Normal) UA - GLUCOSE Negative (Normal) 1-Eok-341478:15 CBCD ALC 1.51 {X10_3/ul} (Normal) Range: 0.83-4.51 [...] 4.2-5.4 WBC 5.7 K/mm3 (Normal) Range: 4.4-11.0 9-Mjg-076220:15 CMP Comments: Comments: FAX RESULTS TO DR. [...] or Folic Acid Supplements? N Range: 3.1-17.5 4-Hlo-832433:01 Urinalysis, Office (89663) UA - LEUKOCYTE ESTERASE Negative (Normal) UA - NITRITE Negative (Normal) URINE UROBILINGN JEROME TIMED Normal mg/dL (Normal) UA - PROTEIN Negative mg/dL (Normal) UA - PH 5 (Abnormal) UA - BLOOD Negative (Normal) UA - SPECIFIC GRAVITY 1.025 (Normal) UA - KETONES Negative mg/dL (Normal) UA - BILIRUBIN Negative (Normal) UA - GLUCOSE Negative (Normal) 7-Bin-511820:52 CBCD ALC 1.26 {X10_3/ul} (Normal) Range: 0.83-4.51 [...] 4.2-5.4 WBC 4.2 K/mm3 (Abnormal) Range: 4.4-11.0 1-Nei-599556:52 CMP Comments: SED RATE ADD ON BLOOD [...] 126 mg/dLsuggests DIABETES MELLITUS per A.D.A. criteria. 3-Fgb-420392:52 SED tSEDRATE 32 mm/h (Abnormal) Range: 0-30 :21 iPBE 0 mmol/L (Normal) :21 iPCO2 40.0 {mmHg} (Normal) Range: 35-45 :21 iPH 7.41 (Normal) Range: 7.35-7.45 :21 iPO2 83 {mmHG} (Normal) Range: 75-100 :21 iTCO2 26 mmol/L (Normal) :21 iTHCO3 25 mmol/L (Normal) Range: 22-26 Comments: Site = L BrachialAllens Test = POSDevice = Room AirResults To = OTHERTime Given = 915 :21 eDA8JWJ 96 % (Normal) Range: 95-99 :21 iTYPE ART (Normal) 1-Wqt-839458:37 Rapid Flu (00382 x 2) Comments: neg Influenza A Ag negative a and b (Normal) 0-Cxy-682959:59 Influenza A&B Viral Comments: neg; PATIENT NOT FASTINGPERFORMED BY: [facility] HospitalYolvtj4965 [facility] [id number] Information: SRC:NOS [id number] Culture (58656) Viral Culture,Rapid,Influenza FLUABN (Normal) Comments: Negative:No Influenza A or B detected. B12 274 pg/mL (Normal) Comments: COMMENTS: FAX RESULTS TO AISLINN SCOTT DRAW :05 Range: 211-911 Comments: Effective 201221-Sep-20123-Tdg-283271:05 CBCD Comments: COMMENTS: FAX RESULTS TO DR. [...] 4.2-5.4 WBC 5.1 {k/mm3} (Normal) Range: 4.4-11.0 3-Jqz-529402:05 CMP Comments: COMMENTS: FAX RESULTS TO DR. [...] 7-18 GLU 87 mg/dL (Normal) Range: 70-110 5-Dzo-386794:05 FOL 22.20 ng/mL (Abnormal) Comments: COMMENTS: FAX RESULTS TO AISLINN BOYKIN - IVT DRAW Range: 3.1-17.5 77-Rmg-683653:08 CALCIFEDIOL (89931) Comments: PATIENT NOT FASTINGPERFORMED BY: [facility] HospitalQrnplc0322 [facility] [id number] Information: [id number] Vitamin D, 25-Hydroxy 47.6 ng/mL (Normal) Range: 30.0-100.0 Comments: Vitamin D deficiency has been defined by the [place] ofMedicine and an Endocrine Society practice guideline as alevel of serum 25-OH vitamin D less than 20 ng/mL (1,2).The Endocrine Society went on to further define vitamin Dinsufficiency as a level between 21 and 29 ng/mL (2).1. IOM ([place] of Medicine). 2010. Dietary reference intakes for calcium and D. [place]: The National Academies Press.2. Stacia MF, Mago NC, Meliza MAGDALENO, et al. Evaluation, treatment, and prevention of vitamin D deficiency: an Endocrine Society clinical practice guideline. JCEM. 2010; 96(7):1911-30. 1-Pge-794552:18 BILAT SCRN DIGITAL & CAD Radiology Report [...] Morales M.D.May 04 012 at 2:58:08 PM [phone] Signed GP/GP If you are the referring physician and would like to consult with theradiologist who provided this interpretation, please contact Valdo bettencourt M.D. at [phone]. If this radiologist is unavailable, youwill be directed to another radiologist to assist. If you are a patient with a question regarding this report, pleasecontactyour refe rring physician directly. Professional Interpretation Provided By: [employer], Phone , These documents contain legally protected [...] D deficiency has been defined by the [place] ofMedicine and an Endocrine Society practice guideline as alevel of serum 25-OH vitamin D less than 20 ng/mL (1,2).The Endocrine Society went on to further define vitamin Dinsufficiency as a level between 21 and 29 ng/mL (2).1. IOM ([place] of Medicine). 2010. Dietary reference intakes for calcium and D. [place]: The National Academies Press.2. Stacia MF, Mago MONTE, Meliza MAGDALENO, et al. Evaluation, treatment, and prevention of vitamin D deficiency: an Endocrine Society clinical practice guideline. JCEM. 2010; 96(7): 1911-30.Performed at: [facility] [address] [id number] Director: Meeta Hickman MD, Phone: [phone] 44-Ywu-799098:44 LIPID VLDL 14 mg/dL (Normal) Range: 5-40 [...] 200-240 mg/dL Borderline >240 mg/dL High Risk 46-Vps-239258:35 Urinalysis, Office (39646) UA - BILIRUBIN Small (Normal) UA - BLOOD Negative (Normal) UA - GLUCOSE Negative (Normal) UA - KETONES Small mg/dL (Normal) Comments: trace UA - LEUKOCYTE ESTERASE Negative (Normal) UA - NITRITE Negative (Normal) UA - PH 5.0 (Normal) UA - PROTEIN Trace mg/dL (Normal) UA - SPECIFIC GRAVITY 1.025 (Normal) URINE UROBILINGN JEROME TIMED Normal mg/dL (Normal) 44-Cxw-009152:07 CBC with manual diff Comments: PATIENT NOT FASTINGPERFORMED BY: [facility] [address] [id number] Information: [id number],[id number] (88863) Immature Grans (Abs) 0.0 {x10E3/uL} (Normal) Range: [...] 3.80-5.10 WBC 5.6 {x10E3/uL} (Normal) Range: 4.0-10.5 35-Lft-904596:07 Metabolic Panel, Comprehensive Comments: PATIENT NOT FASTINGPERFORMED BY: [facility] Tfvzax5187 [facility] [id number] (18926) Alkaline Phosphatase, S 50 [iU]/L (Normal) Range: [...] Glucose, Serum 97 mg/dL (Normal) Range: 65-99 26-Qyt-07110:00 SPINE, CERVICAL (ROUTINE) Radiology See Note Comments: [...] n 06/18/101755 Sign by: Lee Ann Key 31-Zga-388817:49 RENAL CO2 28.0 mmol/L (Normal) Range: 21.0-32.0 [...] 0.6-1.0 GLU 102 mg/dL (Normal) Range: 70-110 13-Xnb-59548:00 CERV SPINE,MIN 4 VIEWS Radiology Report See [...] on 06/09/10 0855 Sign by: Alena Worley 92-Zkj-739335:55 CALCIFEDIOL (62419) Comments: PATIENT NOT FASTINGPERFORMED BY: [facility]6370 [facility] [id number] Information: [id number] Vitamin D, 25-Hydroxy 36.1 ng/mL (Normal) Range: 32.0-100.0 Comments: Recent studies consider the lower limit of 32.0 ng/mL to be athreshold for optimal health.Froylan BHAKTA. J Nutr. 2004;135(2):317-22. 48-Nxo-786239:53 CBCD ABSOLUTE NEUT 3.6 3/uL (Normal) Range: [...] (Normal) GLU 82 mg/dL (Normal) Range: 70-110 09-Gun-844891:33 ALDOLASE 2030 4.7 U/L (Normal) Range: 1.2-7.6 Comments: Performed at: - [facility]6[address] [place], [place] [id number] Director: Meeta Hickman MD 22-Yhz-315214:33 CBCD ABSOLUTE NEUT 2.6 3/uL (Normal) Range: [...] 11.6-14.6 WBC 4.9 K/mm3 (Normal) Range: 4.4-11.0 84-Tyu-624729:33 COMP METABOLIC Comments: LIVER TEST TO CL [...] 6.4-8.2 GLU 95 mg/dL (Normal) Range: 70-110 41-Mxo-838445:33 CPK TOTAL 37 U/L (Normal) Comments: LIVER TEST TO Range: 21-215 :33 D BILI 0.12 mg/dL (Normal) Comments: LIVER TEST TO Range: 0.00-0.30 40-Enn-514929:46 COMPLETE UA BACTERIA RARE {/hpf} (Normal) MUCUS, [...] % (Normal) Comments: Performed at: [facility] - Lab[address] [id number] Director: Meeta Hickman MD CK-MB 0 % (Normal) Range: 0-3 CK-MM 100 % (Normal) Range: 97-100 Macro I 0 % (Normal) Macro II 0 % (Normal) CPK,TOTAL,SERUM 59 U/L (Normal) Range: 24-173 :46 PTH,Intact 57 pg/mL (Normal) Range: 14-72 :46 TSH 1.06 {uIU/mL} (Normal) Range: 0.358-3.74 :29 ALDOLASE 2030 9.1 U/L (Abnormal) Range: 1.2-7.6 Comments: Performed at: [address] [id number] Director: Saul Cuadra MD :29 COMP METABOLIC [...] CPK TOTAL 356 U/L (Abnormal) Range: 21-215 37-Gfg-017410:29 [facility] [place] [facility] [place] . (Normal) Comments: MYOGLOBIN, SERUM 121 H ng/mL 25 - 58 TESTING PERFORMED AT [facility]. ORIGINAL REPORT ONFILE IN LAB CONTAINS ADDITIONAL TEST SITE INF ORMATION. 19-Sds-333736:14 COMPLETE UA AMORPHOUS 4+ (Normal) BACTERIA 0 [...] U/L (Abnormal) Range: 1.2-7.6 Comments: Performed at: [facility] LabDavid [place] [id number] Director: Saul Cuadra MD :03 CKMB CKRI 0.2 % (Normal) Range: 0.0-1.4 Comments: RELATIVE INDEX >1.5% IS PRESUMPTIVELY POSITIVE CPKMB 18.3 ng/mL (Abnormal) Range: 0.0-5.0 Comments: CK-MB and RI Interpretation MB Relative IndexNon-AMI <or= 5 NAIndeterminate > 5 <or= 4AMI > 5 > 4 CPK TOTAL 8135 U/L (Abnormal) Range: 21-215 :03 CPK TOTAL 8135 U/L (Abnormal) Range: 21-215 85-Owo-722143:18 CBCD ABSOLUTE NEUT 2.3 3/uL (Normal) Range: [...] 4.2-5.4 WBC 4.1 K/mm3 (Abnormal) Range: 4.4-11.0 44-Tci-875703:18 COMP METABOLIC CL 104 mmol/L (Normal) Range: [...] 0.6-1.0 GLU 109 mg/dL (Normal) Range: 70-110 46-Tqc-126403:10 Rapid Strep Test, Office (34664) Rapid Strep Test, Office Negative (Normal) 3-Lvu-125927:56 CALCIFEDIOL (30960) Comments: PATIENT NOT FASTINGPERFORMED BY: [facility] Csfxmx8876 [facility] [id number] Information: [id number] Vitamin D, 25-Hydroxy 19.7 ng/mL (Abnormal) Range: 32.0-100.0 Comments: Recent studies consider the lower limit of 32.0 ng/mL to be athreshold for optimal health.Froylan BHAKTA. J Nutr. 2004;135(2):317-22. 19-Iom-215544:10 ABDOMEN/PELVIS WITH CONTRAST Radiology Report See Note (Normal) Comments: Exam Number: [id number] CLINICAL:58 year old woman with abnormal blood [...] surgically absent. Reported By: LOREN MALCOLM M.D. 22-Tpc-514989:15 TRANSVAGINAL NON-PREG US () Radiology Report See Note (Normal) Comments: Exam Number: [id number] CLINICAL:58-year-old female post menopausal with positive beta-hCG [...] weeks recommended. Reported By: WILLIE BOLIVAR M.D. 98-Vev-004240:55 PELVIC (NON-PREG) () Radiology Report See Note (Normal) Comments: Exam Number: [id number] CLINICAL:58-year-old female post menopausal with positive beta-hCG [...] HCGUQUAL SeeNote m[iU]/mL (Normal) Comments: Result: Negative 43-Ouv-581581:17 DELMAR CULTURE-OTHER (07587) Comments: PATIENT NOT FASTINGClinical Information: SRC:THRT ADD [id number] PERFORMED BY: [facility] 3082970 [facility] [id number] Result 1 RRF (Normal) Comments: Routine respiratory gabriella Upper Respiratory Culture Final report (Normal) 33-Tfi-159598:03 LQD PAP [id number] Comments: CYTOLOGY INFORMATION:- CLINICAL INFORMATION: - DATE LMP/MENOPAUSE: 1998 LMP- COLLECTION VIAL: Thin Prep Vial- PAPER STEAMER SOURCE: CERVICAL/ENDOCERVICAL- COLLECTION TECHNIQUE: BRUSH/SPATULA ADEQ Comment (Normal) Comments: Satisfactory for evaluation. Endocervical and/or squamous metaplasticcells (endocervical component) are present. COMM . (Normal) DIAGN Comment (Normal) Comments: NEGATIVE FOR INTRAEPITHELIAL LESION AND MALIGNANCY. HPV RFLX Comment (Normal) Comments: The HPV DNA reflex criteria were not met with this specimenresult therefore, no HPV testing was performed. .Performed At: [address] [id number] PAPSMR Comment (Normal) Comments: The Pap smear is a screening test designed to aid in thedetection of premalignant and malignant conditions of theuterine cervix. It is not a diagnostic procedure andshould not be used as the sole means of detecting cervicalcancer. Both false-positive and false-negative reports dooccur. . PERFORM Comment (Normal) Comments: Ashwin Blanc, [employer] Machine Operator (ASCP) 97-Awg-296060:52 Microscopic Examination Comments: PATIENT WAS FASTINGPERFORMED BY: [facility]Co[facility] HospitalZoojiv3606 [facility] [id number] Bacteria Few (Normal) Epithelial Cells (non renal) None seen {/hpf} (Normal) Range: 0 - 10 RBC None seen {/hpf} (Normal) Range: 0 - 3 WBC 0-5 {/hpf} (Normal) Range: 0 - 5 03-Pui-250046:52 MICROALBUMIN: CREATININE RATIO Comments: PATIENT WAS FASTINGPERFORMED BY: [employer] Pixhke5443 [facility] [id number] ([id number]) AND (73506) Creatinine, Urine 353.6 mg/dL (Abnormal) Range: 15.0-278.0 Microalb/Creat Ratio 5.4 {ug/mg_creat} (Normal) Range: 0.0-30.0 Microalbumin, Urine 19.2 ug/mL (Abnormal) Range: 0.0-17.0 86-Cco-529271:52 URINALYSIS (26919) Comments: PATIENT WAS FASTINGPERFORMED BY: [employer]6370 [facility] [id number] Appearance Clear (Normal) Bilirubin Negative (Normal) Glucose Negative (Normal) Ketones Negative (Normal) Microscopic Examination See below: (Normal) Nitrite, Urine Negative (Normal) Occult Blood Negative (Normal) pH 8.0 (Abnormal) Range: 5.0-7.5 Protein 1+ (Abnormal) Specific [place] 1.010 (Normal) Range: 1.005-1.030 Urine-Color Yellow (Normal) Urobilinogen,Semi-Qn 0.2 mg/dL (Normal) Range: 0.0-1.9 WBC Esterase Negative (Normal) 00-Qvz-737836:52 Metabolic Panel, Comprehensive Comments: PATIENT WAS FASTINGPERFORMED BY: [employer] [facility] [id number] (95274) A/G Ratio 1.6 (Normal) Range: 1.1-2.5 Albumin, [...] Sodium, Serum 144 mmol/L (Normal) Range: 135-145 72-Akw-872711:52 Lipid Panel (39270) Comments: PATIENT WAS FASTINGPERFORMED BY: [facility] Dvyizi4898 [facility] [id number] Cholesterol, Total 237 mg/dL (Abnormal) Range: 100-199 [...] Cholesterol García 19 mg/dL (Normal) Range: 5-40 85-Bmr-832116:52 CBC with manual diff (99695) Comments: PATIENT WAS FASTINGClinical Information: ADD DARW FEE 655399 ADD J 21400 PERFORMED BY: HIREN [facility]CoM[facility] HospitalJyjqcq3669 [facility] [id number] Baso (Absolute) 0.1 {x10E3/uL} (Normal) Range: 0.0-0.2 [...] up in 3 months with [facility] Indication: Insomnia Vitamin D deficiency, unspecified [...] pain : Follow up on Wednesday with [facility] Indication: Back pain Carnitine deficiency : [...] : FOLLOW UP IN 3 MONTHS with [facility] Indication: Unspecified inflammatory polyarthropathy Vitamin D [...] Indication: DEPRESSIVE DISORDER (311.0) Planned Observations TSH (63833)Indication: Leg pain On: 67-Xcx-124584:42 Request CBC, Platelets & Auto Diff (40617)Indication: Leg pain On: 52-Yoz-531328:42 Request Metabolic Panel, Comprehensive (97050)Indication: Leg pain On: 35-Mej-398283:42 Request Vitamin B-12 (cyanocobalamin) (12121)Indication: B12 deficiency On: 23-Rdy-153712:55 Request CPK TOTAL & ISOENZYMES (56830)Indication: Pain in unspecified joint On: 03-Zng-975276:03 Request URINE DELMAR CULTURE-IDENTIFICATN (42790)Indication: Dysuria On: 32-Dlj-716166:16 Request URINALYSIS (23065)Indication: Dysuria On: 60-Mty-727483:16 Request CALCIFEDIOL (50616)Indication: Postmenopausal (Renamed from Postmenopausal status) On: 1-Gjz-380823:50 Request HPV automatic (62210)Indication: Screening for HPV (human papillomavirus) (Renamed from Encounter for screening for human papillomavirus (HPV)) On: 1-Fva-107047:49 Request Metabolic Panel, Comprehensive (91308)Indication: DM (diabetes mellitus screen) On: :24 Request TSH (51679)Indication: Screening for deficiency anemia On: :23 Request CBC, Platelets & Auto Diff (89091)Indication: Screening for deficiency anemia On: : Request Lipid Panel (97617)Indication: Screening for hyperlipidemia On: :23 Request VITAMIN B12 AND FOLATES (45161)Indication: Leg pain On: 8-Eno-840561:27 Request HEPATIC FUNCTION PANEL (37263)Indication: Hypercholesteremia On: 24-Ror-005974:15 Request CBC with manual diff (77450)Indication: Carnitine deficiency On: 09-Ahq-315827:10 Request Metabolic Panel, Comprehensive (23546)Indication: Arthritis On: 16-Lwy-317497:10 Request LIPID PANEL (07524)Indication: Hypercholesteremia On: 84-Pyl-665441:10 Request CBC (AUTO) (74841)Indication: FATIGUE On: 3-Cry-010522:24 Request METABOLIC PANEL, COMPREHENSIVE (70926)Indication: FATIGUE On: 2-Jrm-848479:24 Request Folate (70488)Indication: FATIGUE On: 2-Mrv-193534:24 Request VITAMIN B-12 (CYANOCOBALAMIN) (08398)Indication: FATIGUE On: 1-Ura-632666:24 Request TSH (66821)Indication: DEPRESSIVE DISORDER (311.0) On: 10-Llj-282102:16 Request CBC with manual diff (16280)Indication: Myopathy NOS On: :03 Request Metabolic Panel, Comprehensive (59998)Indication: DEPRESSIVE DISORDER (311.0) On: 2-Fav-326506:03 Request Lipid Panel (53718)Indication: Hypercholesteremia On: 0-Oll-228623:03 Request CALCIFEDIOL (27448)Indication: Vitamin D deficiency, unspecified On: 3-Sem-961014:02 Request Renal function Panel (56834)Indication: Neck pain On: 32-Epu-084678:14 Request CALCIFEDIOL (88908)Indication: Vitamin D deficiency, unspecified On: 26-Jun-20099:26 Request Comments: draw Beginning September 2009 TEST - SERUM QUANTITATIVE (HCG) (99931)Indication: Abnormal blood chemistry On: :06 Request PREGNACY TEST, URINE ([id number])Indication: Abnormal blood chemistry On: 46-Diz-256805:06 Request Lipid Panel (11089)Indication: Hypercholesteremia On: 82-Uqx-055942:16 Request Comments: fasting Rapid Strep Test, Office ([id number])Indication: Pharyngitis, acute On: 89-Ipi-714792:04 Request Thin prep Pap ([id number])Indication: Well woman exam On: 13-Vlg-556949:09 Request FECAL OCCULT HGB ASSAY- tubes sent home ([id number])Indication: Well woman exam On: 29-Knv-695566:54 Request OCCULT BLOOD FECES SCREEN- card done in office ([id number])Indication: Well woman exam On: 79-Tmr-964701:54 Request CPK TOTAL & ISOENZYMES ([id number])Indication: Myalgia and myositis On: 40-Qou-532487:37 Request CALCIFEDIOL (77876)Indication: Leg cramps On: 87-Bed-556644:36 Request VITAMIN B-12 (CYANOCOBALAMIN) ([id number])Indication: Pain in unspecified joint On: 53-Fyh-134791:35 Request PARATHORMONE ([id number])Indication: Myalgia and myositis On: 75-Dim-806805:35 Request RHEUMATOID FACTOR-QUANT ([id number])Indication: Pain in unspecified joint On: 21-Ayd-656118:15 Request SED RATE ERYTHROCYTE ([id number])Indication: Pain in unspecified joint On: 38-Crl-186655:15 Request Planned Encounters Medical; Review Results - On: 10-May-2018 15:30 [facility] Teddy BINGHAM, Aislinn Leonard CNP Planned Procedures Venous Doppler - LeftBy: Teddy BINGHAM, On: 02-May-2018 Intent Aislinn Leonard CNP Aerosol Treatment ([id number])By: Teddy On: 28-Mar-2018 Intent Aislinn BINGHAM CNP, Mary E Flu Vaccine (Quadrivalent) 41611Vf: On: 28-Mar-2018 Intent Aislinn Boykin CNP, CNP, Mary E Comments: Lot #[id number]-L dltd, IMDose prefilled syringegiven by: VENANCIO Noriega [...] Intent E Aislinn Boykin CNP Ear Irrigation ([id number])By: Teddy On: 18-Dec-2016 Intent Aislinn BINGHAM CNP, Mary E Wax CurettesBy: Alidaapolinar Aislinn BINGHAM On: 18-Dec-2016 Intent Aislinn Boykin CNP Aerosol Treatment ([id number])By: Teddy On: 18-Dec-2016 Intent Aislinn IBNGHAM CNP, Mary E Wax CurettesBy: Pamela Bates On: 01-Dec-2016 Intent Ear Irrigation ([id number])By: Paulo On: 01-Dec-2016 Marvin Santiago Comments: Ear Irrigation performed on:rightAmount/color removed cerumen:small OUtcome:clear and tolerated PNEUM VAC ADLT/IMUMNOSPR, SBC/INTRM On: 19-May-2016 Intent ([id number])By: Alidaapolinar Aislinn BINGHAM CNP, Mary E Flu Vaccine (Quadrivalent) 25370Fs: On: 12-May-2016 Intent Aislinn Boykin CNP, CNP, Mary E Comments: FLUlot: [id number]:11/04site:Lt deltoidroute:IMdose:.5mlDEMICK, MA DEXA SCAN AXIAL SKELETON ([id number])By: On: 22-Apr-2016 Intent Teddy BINGHAM Aislinn Aragon Swethanylaapolinar BINGHAM Divya Pap Smear, Medicare ([id number])By: Teddy On: 22-Apr-2016 Intent ZACHERYAislinn Swethakathi ZACHERY Aislinn Aragon FLU VACCINE H1N1 ([id number])By: Teddy On: 06-Mar-2015 Intent ZACHERYAisilnn Swethakathi ZACHERY Divya Comments: Lot:[id number]:12/19/15Dose:0.5mLRoute:IMSite:L DltdGiven By:MIKE signed ADMINISTRATION OF H1N1 INFLUENZA On: 06-Mar-2015 Intent VIRUS VACCINE ([id number])By: Teddy BINGHAM DivyaMargo Boykin CNP Divya DEXA SCAN AXIAL SKELETON ([id number])By: On: 06-Mar-2015 Intent Teddy BINGHAM DivyaMargo Boykin CNP Divya MAMMOGRAM, SCREENING, BOTH BREAST On: 06-Mar-2015 Intent ([id number])By: Teddy BINGHAM DivyaMargo Boykin CNP Divya ANNUAL DEPRESSION SCREENING, 15 On: 06-Mar-2015 Intent MINUTES ([id number])By: Teddy BINGHAM DivyaMargo Boykin CNP Divya Venous Doppler - LeftBy: Teddy BINGHAM, On: 29-Aug-2014 Intent Aislinn Boykin CNP Divya MARY ALICE (Ankle Brachial Index) On: 29-Aug-2014 Intent ([id number])By: Teddy BINGHAM DivyaMargo Boykin CNP Divya SPECIMEN HANDLING/TRANSPORT On: 16-May-2014 Intent ([id number])By: Teddy BINGHAM DivyaMargo Boyikn CNP Aislinn Aragon Flu Vaccine (Quadrivalent) [id number]: On: 19-Apr-2014 Intent Teddy BINGHAM Divya Cinylaapolinar BINGHAM Divya Comments: lot:[id number]:dose:0.5mLRoute: IMlocation: L armgiven by: elyse ADMINISTRATION OF INFLUENZA VIRUS On: 19-Apr-2014 Intent VACCINE ([id number])By: Mckenzie Zhao Radiology - Lumbar SpineBy: Teddy On: 29-Dec-2013 Intent ZACHERY Aislinn Boykin CNP, Aislinn Aragon Toradol Injection, 30 mg ([id number])By: On: 29-Dec-2013 Intent Alidaa ZACHERY, Aislinn Irwina ZACHERY, Aislinn Aragon Ear Irrigation ([id number])By: Eben On: 19-Apr-2013 Intent Mayela LONDONO Comments: Ear Irrigation performed on:bilateralAmount/color removed cerumen:small amount of darkl brown waxOUtcome:clearUsed wax curettes FLU VAC, SPLIT, >3 YEARS, INTRAMUSC On: 19-Apr-2013 Intent (57323)By: Pamela Crooks LPN Comments: Lot:[id number]:6.14Amt:0.5mlRoute:IMSite: L DltdGiven By: Alejandra CHAVESVIS signed IMMUNIZ ADMNIN, 1 VAC, SNGL/COMBO On: 19-Apr-2013 Intent ([id number])By: Pamela Crooks LPN Wax CurettesBy: Mayela Treadwell DO On: 19-Apr-2013 Intent Eprescribed prescriptions ([id number])By: On: 19-Apr-2013 Intent Pamela Crooks LPN B 12 Injection, 1000 mcg (J3420)By: On: 28-Dec-2012 Intent Kassie Tellez LPN B 12 Injection, 1000 mcg (J3420)By: On: 29-Nov-2012 Intent Pattie Malagon LPN Comments: Lot: [id number]: Hev22Tvr: 1000mcg/1mlRoute: IMSite: L deltoidGiven by: CHRISTOPHE Allen B 12 Injection, 1000 mcg (J3420)By: On: 26-Oct-2012 Intent Jina Gomes LPN Comments: Lot #[id number]/14Site-right deltoidDose-1 mlgiven by: Rishabh Gomes LPN B 12 Injection, 1000 mcg (J3420)By: On: 11-Oct-2012 Intent Deedee Cantrell Comments: lot: [id number]:06/03site/route: L deltoid/IMamt: 1ccVIS signed when applicableANDIE Mark B 12 Injection, 1000 mcg (J3420)By: On: 05-Oct-2012 Intent Ciesa DEVULCANIZER TENDERAislinn CNP, Mary E B 12 Injection, 1000 mcg (J3420)By: On: 27-Sep-2012 Intent Valencia Renee Comments: Lot:[id number]:06/03Dose:1mlRoute:IMSite:l armGiven By:BRYNN signed IMMUNIZ ADMNIN, 1 VAC, SNGL/COMBO On: 29-Mar-2012 Intent ([id number])By: Aislinn Boykin CNP Comments: lot # [id number]- 12/18/1252ttnp-XYMXqoenp-IZpxny- 0.5 MLCHenderson TALEND ETL DEVELOPER Aislinn BINGHAM MAMMOGRAM, SCREENING, BOTH BREASTS On: 29-Mar-2012 Intent ([id number])By: Teddy BINGHAM Divya Cikathi ZACHERY Aislinn Aragon FLU VAC, SPLIT, >3 YEARS, INTRAMUSC On: 29-Mar-2012 Intent ([id number])By: Teddy BINGHAM DivyaMargo Boykin CNP Aislinn Aragon MRI -Cervical Spine (IV Contrast On: 11-Jun-2010 Intent Needed)By: Teddy BINGHAM DivyaMargo Boykin CNP Divya Radiology - Cervical SpineBy: Eben On: 05-Jun-2010 Intent Mayela LONDONO Aerosol Treatment ([id number])By: Teddy On: 03-Sep-2009 Intent Aislinn BINGHAM Swethakathi ZACHERYAislinn Pulse Oximetry ([id number])By: Teddy BINGHAM, On: 06-May-2009 Intent Aislinn Aragon Swethakathi DEVULCANIZER TENDERAislinn Aerosol Treatment ([id number])By: Teddy On: 06-May-2009 Intent ZACHERYAislinn Margo PosadaAislinn armenta CNP IMMUNIZ ADMNIN, 1 VAC, SNGL/COMBO On: 20-Mar-2009 Intent ([id number])By: Teddy BINGHAM DivyaMargo Boykin CNP Aislinn Aragon FLU VAC, SPLIT, >3 YEARS, INTRAMUSC On: 20-Mar-2009 Intent (52260)By: Aislinn Boykin CNP Comments: Lot #[id number]-left deltoidgiven by:[facility] ZACHERY Divya CT - Abdomen & Pelvis (IV Contrast On: 14-Mar-2009 Intent Needed)By: Aislinn Boykin CNP, CNP, Mary E Ultrasound - PelvisBy: Teddy BINGHAM, On: 14-Mar-2009 Intent Aislinn Leonard CNP Comments: attention adrenals and ovaries SPECIMEN HNDLNG/TRNSPRT, OFFC > LAB On: 18-Jan-2009 Intent ([id number])By: Aislinn Boykin CNP, CNP, Mary E DXA, BONE DENSITY, AXIAL SKELETON On: 13-Nov-2008 Intent (03971)By: Aislinn Boykin CNP, CNP, Mary E MAMMOGRAM, SCREENING, BOTH BREASTS On: 13-Nov-2008 Intent ([id number])By: Aislinn Boykin CNP, CNP, Mary E ELECTROCARDIOGRAM, COMPLETE (ECG) On: 11-Oct-2008 Intent (00358)By: Aislinn Boykin CNP, CNP, Mary E Planned [...] D deficiency, unspecified : DISCONTINUED - CALCIFEDIOL (02406) Indication: Vitamin D deficiency, unspecified B12 deficiency [...] does not have durable power of attorney law clerk or living will. The patient has noticed feeling helpless (feels depressed jasiel etimes). Other providers contributing to the patient's care are [facility] (Dr Genao) and other: (Neuro Danielle Mariee at [facility]).Encounter Diagnosis: Annual Medicare Physical (V70.0), [...] does not have durable power of attorney law clerk or living will. The patient has noticed staying at home rather than doing something new or going out and lack of energy. Other providers contributing to the patient's care are [facility] and other: (neuromuscular specKraig Manriquez). [facility] [...] keep the care continum I was at [facility] yesterday Encounter Diagnosis: DEPRESSIVE DISORDER [...]
--- OUTSIDE RECORDS SUMMARY | 2018-07-18 08:28 | XMS RPT_ITS | Continuity of Care Document ---
:1950 Author Organization [facility] Address [address] [facility] [address] [place] [address] Phone Care Team Providers Name Role Phone [...] 0 Ordered:19-Jun-2016 Teddy BINGHAM, Aislinn Boo CNP, Asilinn Aragon Start : 19-Jun-2016 Active Delsym 30 [...] Refills: 0 Ordered:28-Mar-2018 Teddy BINGHAM, Aislinn Boo PENSION AGENT, Aislinn Aragon Start : 28-Mar-2018 Active Comments:with [...] Quantity: 50 {Jess} Refills: 0 Ordered:18-Dec-2016 Teddy BIGNHAM, Aislinn Matamoros CNP Start : 18-Dec-2016 End [...] : 18-Dec-2016 End : 28-Dec-2016 Inactive ERGOCALCIFEROL, 78655SJAS (Oral Capsule) 1 (one) Capsule twice weekly [...] 3 days then 1 tab tid NYSTATIN, 240272HVHB/ML (Mouth/Throat Suspension) 4 Milliliter qid for 7 days Quantity: 1 {qs} Refills: 0 Ordered:23-Dec-2010 Teddy PENSION AGENT, Aislinn Boo PENSION AGENT, Divya Start : 23-Dec-2010 End : 30-Dec-2010 [...] Refills: 0 Ordered:25-Oct-2008 Aislinn Boykin CNP, CNP, Mary E Start [...] 11-Apr-2012 End : 11-Oct-2015 Discontinued VITAMIN D, 17741AFUB (Oral Capsule) 1 (one) Capsule twice weekly [...] Operative Report Result: Comments: See Note; NOTES: [facility] Medical Records Department [address] [place] [address] Operative Report 01/25/18 1254 MR#: [id number] Acct: [id number] Name: HANNA CHAVEZ Rep #: [id number] : 1950 67 From: Vaishnavi Dietz MD PCP: Aislinn Boykin NP Status: REG [facility] Y Location: [place] [address] Problem List (1) Urinary tract infection Status: Acute Report of Operation Date of Procedure: 01/25/18 Pre-Operative Diagnosis: urinary tract infection, pelvic pain Post-Operative Diagnosis: same and rectocele Surgery/Procedure Performed:: cystoscopy and pelvic exam under anesthesi a Description of Surgical Findings:: normal cystoscopy. very short anterior vaginal wall. grade 3 rectocele. atrophy. dry pan operator: Vaishnavi Dietz Type of Anesthesia:: MAC [...] Discharge Instruction Result: Comments: See Note; NOTES: [facility] Medical Records Department [address] [place] [address] Instructions for Home/Discharge Instructions 01/25/18 1228 MR#: [id number] Acct: [id number] Name: HANNA CHAVEZ Rep #: [id number] : 1950 67 From: Vaishnavi Dietz MD PCP: Aislinn Boykin NP Status: REG VTC Discharge Diet: No Restrictions Discharge Activity: Return [...] DAILY 05/23/13 Triamcinolone Acetonide [Nasacort Aq Nasal Stryker] 2 spray NASAL DAILY PRN 05/23/13 Levocarnitine [...] and Bladder Result: Comments: See Note; NOTES: [facility] Imaging Services [address] [place] [address] Kidney and Bladder MR#: [id number] Acct: [id number] Name: HANNA CHAVEZ Rep #: [id number] DO B: 1950 F 67 From: Tee Weems PCP: Aislinn Boykin NP Status: REG CLI Study: Kidney and Bladder Date of Exam: 01/17/18 Exam# [id number] Ordering Dr: Vaishnavi Dietz MD STUDY: RENAL [...] CC: Aislinn Boykin NP; Vaishnavi Dietz MD Design Printing Machine Set Up Operator: Signed 29-Dec-2017 Transvaginal Non- Result: Comments: See Note; NOTES: [facility] Imaging Services [address] [place] [address] Transvaginal Non- MR#: [id number] Acct: [id number] Name: HANNA CHAVEZ Rep #: [id number] : 1950 F 67 From: Jacky Hanson MD PCP: Aislinn Boykin NP Status: REG CLI Study: Transvaginal Non- Date of Exam: 12/29/17 Exam# [id number] Ordering Dr: Vaishnavi Dietz MD STUDY: U [...] CC: Aislinn Boykin NP; Vaishnavi Dietz MD Design Printing Machine Set Up Operator: Signed 09-Dec-2017 Downtime Report Result: Comments: See Note; NOTES: [facility] Medical Records Department [address] [place] [address] Downtime Report MR#: [id number] Acct: [id number] Name: HANNA CHAVEZ Rep #: [id number] : 1950 67 From: Elmer Moreno PCP: Aislinn Boykin NP Status: REG CLI This patient was seen during an EMR downtime November 22, 2017 - November 29, 2017. This patient may have a combination of paper and electronic documentation or all paper documentation. All documentation is viewable within the e-chart portion of [employer] for each patient visit. 09-Dec-2017 Downtime Report Result: Comments: See Note; NOTES: [facility] Medical Records Department [address] [place] [address] Downtime Report MR#: [id number] Acct: [id number] Name: HANNA CHAVEZ Rep #: [id number] : 1950 67 From: Elmer Moreno PCP: Aislinn Boykin NP Status: REG CLI This patient was seen during an EMR downtime November 22, 2017 - November 29, 2017. This patient may have a combination of paper and electronic documentation or all paper documentation. All documentation is viewable within the e-chart portion of [employer] for each patient visit. 03-Dec-2017 Foot min 3 Views Result: Comments: See Note; NOTES: [facility] Imaging Services [address] [place] [address] Foot min 3 Views MR#: [id number] Acct: [id number] Name: HANNA CHAVEZ Alanis Rep #: [id number] : 1950 F 67 From: Yahir Wolfe MD PCP: Aislinn Boykin NP Status: REG CLI Study: Foot min 3 Views Date of Exam: 12/03/17 Exam# [id number] Ordering Dr: Aislinn Boykin STUDY: X-RAY - [...] Service support , CC: Aislinn Boykin NP Design Printing Machine Set Up Operator: Signed 23-Dec-2016 Chest PA and Lateral Result: Comments: See Note; NOTES: [facility] Imaging Services [address] [place] [address] Verdana 4d Chest PA and Lateral MR#: [id number] Acct: [id number] Name: HANNA CHAVEZ Rep #: [id number] : 1950 F 66 From: Juan Woody MD PCP: Aislinn Boykin Status: REG CLI Study: Chest PA and Lateral Date of Exam: 12/23/16 Exam# [id number] Ordering Dr: Danielle Manriquez MD STUDY: X-RAY [...] , Service support , CC: Aislinn Manriquez Design Printing Machine Set Up Operator: Signed 05-Jul-2016 Discharge Instruction Result: Comments: See Note; NOTES: [facility] Medical Records Department [address] [place] [address] Discharge Instruction 07/05/162116 MR#: [id number] Acct: [id number] Name: JOSH CHAVEZ Rep #: [id number] : 1950 66 From: Sarabjit Salinas MD [...] your Primary Care Provider. Call [facility] ([phone]) or report to the closest Emergency Room. Call 911 if necessary. 07/05/16 21 19 <Electronically signed by Sarabjit Salinas MD> Date Sarabjit Salinas MD Cosigner Signature (If Indicated): Date CC: Aislinn Boykin 05-Jul-2016 Emergency Department Summary Result: Comments: See Note; NOTES: [facility] Medical Records Department [address] [place] [address] Emergency Department Summary 07/05/162113 MR#: [id number] Acct: [id number] Name: HANNA CHAVEZ Rep #: [id number] : 1950 66 From: Sarabjit Salinas MD [...] problems, contact your Primary Care Provider. Call [employer] [facility] ([phone]) or repor t to the closest Emergency Room. Call 911 if necessary. 07/05/162116 <Electronically signed by Sarabjit Salinas MD> Date Sarabjit Salinas MD Cos igner Signature (If Indicated): Date CC: Aislinn Boykin 16-Apr-2015 Emergency Department Summary Result: Comments: See Note; NOTES: [facility] Medical Records Department [address] [place] [address] Emergency Department Summary MR#: [id number] Acct: [id number] Name: HANNA CHAVEZ Rep #: [id number] : 1950 64 From: Breanna Ryan MD [...] was at 3:00 a.m. She comes in [facility] for pain control. PHYSICAL EXAMINATION: VITAL SIGNS: [...] pain. Breanna Ryan MD T: NTS JOB: [id number] 04/16 2359 <Electronically signed by Breanna Ryan MD> Date Breanna Ryan MD Cosigner Signature (If Indicated): Date _ CC: Carla Hughes MD Date Dictated: 04/15/15816 Date Transcribed: 04/15/15816 Design Printing Machine Set Up Operator: Signed 15-Apr-2015 Discharge Instruction Result: Comments: See Note; NOTES: [facility] Medical Records Department [address] [place] [address] Discharge Instruction 04/15/15808 MR#: [id number] Acct: [id number] Name: HANNA CHAVEZ Rep #: [id number] : 1950 64 From: Breanna Ryan MD [...] problems, contact your doctor. Call [facility] ([phone]) or report to the closest Emergency Room. Call 911 if necessary. 04/15/15 0818 <Electronically signed by Breanna Ryan MD> Date Breanna Ryan MD Cosigner Signature (If Indicated): Date CC: Carla Hughes MD 03-Dec-2014 Emergency Department Summary Result: Comments: See Note; NOTES: [facility] Medical Records Department [address] [place] [address] Emergency Department Summary MR#: [id number] Acct: [id number] Name: HANNA CHAVEZ Rep #: [id number] : 1950 64 From: Shruthi Savage DO PCP: Carla Hughes MD Status: [facility] ER DATE OF SERVICE: 11/15/2014 CHIEF [...] condition. Shruthi Savage DO T: NTS JOB: [id number] 12/03/14 2329 <Electronically signed by Shruthi Savage DO> Date Thalia Savage DO CC: Carla Hughes MD Date Dictated: 11/15/141931 Date Transcribed: 11/15/141931 Design Printing Machine Set Up Operator: Signed 16-Nov-2014 12 Lead Electrocardiogram Result: Comments: See Note; NOTES: [facility] Cardiovascular Services [address] [place] [address] 12 Lead EKG 11/15/14 1626 MR#: [id number] Acct: [id number] Name: HANNA CHAVEZ Rep #: [id number] : 1950 64 From: Lamont Lucas MD [...] l ECG Confirmed by LAMONT LUCAS ([id number]), editor book LAKIA MORENO ([id number]) on 11/16/2014 10:58:54 AM Referred By: JERE Confirmed By:LAMONT LUCAS 11/16/14 1059 Date Lamont Lucas MD CC: Caral Hughes MD Date Dictated: 11/15/141625 Date Transcribed: 11/15/141625 Design Printing Machine Set Up Operator: Signed 15-Nov-2014 Discharge Instruction Result: Comments: See Note; NOTES: [facility] Medical Records Department [address] [place] [address] Discharge Instruction 11/15/141924 MR#: [id number] Acct: [id number] Name: HANNA CHAVEZ Rep #: [id number] : 1950 64 From: Shruthi Savage DO [...] problems, contact your doctor. Call [facility] ([phone]) or report to the [facility] Emergency Room. Call 911 if necessary. 11/15/141927 <Electronically signed by Shruthi Savage DO> Date Shruthi Savage DO Co signer Signature (If Indicated): Date CC: Carla Hughes MD 15-Nov-2014 CTA Chest W/WO Contrast Result: Comments: See Note; NOTES: [facility] Imaging Services [address] [place] [address] CAT Scan Report MR#: [id number] Acct: [id number] Name: HANNA CHAVEZ Rep #: [id number] : 1950 F 64 From: Chele Puckett MD PCP: Carla Hughes MD Status: REG ER Study: CTA Chest W/WO Contrast Date of Exam: 11/15/14 Exam# [id number] Ordering Dr: Shruthi Savage DO STUDY: CTA [...] MD at 19:05 EDT , Service support [phone], CC: Carla Hughes MD; Shruthi Savage DO Design Printing Machine Set Up Operator: Signed 15-Nov-2014 Chest PA and Lateral Result: Comments: See Note; NOTES: [facility] Imaging Services [address] [place] [address] Radiology Report MR#: [id number] Acct: [id number] Name: HANNA CHAVEZ Rep #: [id number] : 1950 F 64 From: Martín Morales MD PCP: Carla Hughes MD Status: DEP ER Study: Chest PA and Lateral Date of Exam: 11/15/14 Exam# [id number] Ordering Dr: Shruthi Savage DO STUDY: X- [...] Martín Morales MD at 9:28 EDT Tel [phone], Service support [phone], 0062 RAD/Chest PA and Lateral IMPRESSION: No acute abnormality is seen. Electronically Signed: Martín Morales MD at 9:28 EDT Tel [phone], Service support [phone], CC: Carla Hughes MD; Shruthi Savage DO Design Printing Machine Set Up Operator: Signed 29-Dec-2013 L/S Spine Min 4 Views Result: Comments: See Note; NOTES: [facility] Imaging Services [address] [place] [address] Radiology Report MR#: [id number] Acct: [id number] Name: HANNA CHAVEZ Rep #: [id number] : 1950 F 63 From: Nirmal Watts PCP: Carla Hughes MD Status: REG CLI Study: L/S Spine Min 4 Views Date of Exam: 12/29/13 Exam# [id number] Ordering Dr: Carla Hughes MD STUDY: X-RAY [...] DO at 23:38 EDT , Service support [phone], CC: Carla Hughes MD Design Printing Machine Set Up Operator: Signed Immunization Name Dates Details Influenza (3 years and up) on: 20-Mar-2009 Comments: Lot #[id number]-left deltoidgiven by:CDH Family History Unknown Family Member Name Dates Details No Known Family History Status: Active Social History Name Dates Details Tobacco use: Never smoker. Status: Active Smoking Status Name Dates Details Never smoker Vital Signs Date Test Result Details 94-Egj-098100:09 Temperature 97.9 f Comments: Method: Temporal Pulse [...] m2 :31 Comments[facility] 97.2 f Pulse 86 /min Comments: [...] :57 Comments: Glaucoma screening done at [facility] yearly Temperature 97.9 f Pulse [...] 0.00 cm Results Date Description Value Details 99-Rxm-640937:51 Vitamin B12 > 2000 pg/mL (Abnormal) Comments: [facility] [address] [place], [place], [id number] Range: 211-911 62-Kic-166339:11 CBC W/Diff, Automated Comments: [facility] [address] [place], [place], [address] Absolute Lymph 1.66 {X10_3/ul} (Normal) Range: 0.83-4.51 [...] 4.2-5.4 WBC 5.9 K/mm3 (Normal) Range: 4.4-11.0 59-Kng-534552:11 Comprehensive Metabolic Profil Comments: [facility] [address] [place], [place], [address] GAP 8 (Normal) Range: 5-15 CO2 26.0 [...] Comments: Please note revised GLUCOSE reference range qxtkqzioj45/02/2018. 78-Rte-723994:47 Culture, Urine Comments: [facility] [address] [place], [id number] CUUR See Note (Normal) Comments: Urine CultureORGANISM 1: Mixed Gram Pos AND Gram Neg OrgColony Count 50,000-80,000MIX CULTURE Mixed contaminants. Submit a new specimen if indicated. 00-Tqf-170561:47 Urinalysis, Complete Comments: How was Urine Obtained? [facility] [address] [place], [address] MUCUS, URINE 0 SEEN {/hpf} (Normal) BACTERIA [...] BELOW (Normal) Comments: Visual Urine Color: GREEN 44-Kqi-113722:41 TSH (12781) Comments: PATIENT NOT FASTINGPERFORMED BY: [employer] [facility] [id number] TSH 2.310 {uIU/mL} (Normal) Range: 0.450-4.500 63-Vlu-600112:28 URINE DELMAR CULTURE-IDENTIFICATN Comments: PATIENT NOT FASTINGPERFORMED BY: [employer] [id number] Information: SRC:UR (91828) Result 1 MUG (Normal) Comments: Mixed urogenital flora1,000 Colonies/mL Urine Culture,Comprehensive Final report (Normal) 09-Ofi-207721:41 Metabolic Panel, Comprehensive Comments: PATIENT NOT FASTINGPERFORMED BY: [employer] [facility] [id number] (20320) ALT (SGPT) 16 [iU]/L (Normal) Range: 0-32 [...] 8-27 Glucose 89 mg/dL (Normal) Range: 65-99 42-Kgs-553296:02 Urinalysis, Office (84111) UA - LEUKOCYTE ESTERASE Small (Normal) UA - NITRITE Negative (Normal) URINE UROBILINGN JEROME TIMED Normal mg/dL (Normal) UA - PROTEIN Negative mg/dL (Normal) UA - PH 7.5 (Normal) UA - BLOOD Negative (Normal) UA - SPECIFIC GRAVITY 1.020 (Normal) UA - KETONES Negative mg/dL (Normal) UA - BILIRUBIN Negative (Normal) UA - GLUCOSE Negative (Normal) 35-Ymo-991388:54 LDH (LD) (LACTATE DEHYDROGENASE) Comments: PATIENT NOT FASTINGPERFORMED BY: [facility] Fhtwlm8089 [facility] [id number] (35724) LDH 191 [iU]/L (Normal) Range: 119-226 71-Dci-450297:54 RHEUMATOID FACTOR-QUANT (20996) Comments: PATIENT NOT FASTINGPERFORMED BY: [facility]6370 [facility] [id number] RA Latex Turbid. <10.0 {IU/mL} (Normal) Range: 0.0-13.9 :54 C-Reactive Protein (01400) Comments: PATIENT NOT FASTINGPERFORMED BY: [facility]6370 [facility] [id number] C-Reactive Protein, Quant 6.1 mg/L (Abnormal) Range: 0.0-4.9 :54 SED RATE ERYTHROCYTE (66566) Comments: PATIENT NOT FASTINGPERFORMED BY: [facility]6370 [facility] [id number] Sedimentation Rate-Westergren 16 mm/h (Normal) Range: 0-40 3-Fvq-615713:40 CPK Total, Creatine Kinase Comments: 48[facility] [address] [place], [place], [address] CPK TOTAL 68 U/L (Normal) Range: 26-192 29-Zjy-940691:12 Culture, Urine Comments: [facility] [address] [place], [place], [address] CUUR See Note (Normal) Comments: Urine CultureORGANISM [...] $ <=20 S(NF) indicates non-formulary drug at [facility]. Approval by Infectious Disease Specialist required before non- formulary drugs may be ordered and/or dispensed. 82-Viw-749132:12 Urinalysis, Routine (Dipstick) Comments: How was Urine Obtained? [facility] [address] [place], [place], [address] LEUK ESTERASE 500 /ul (Abnormal) OCCULT BLOOD-UR 50 /ul (Abnormal) NITRITE UR Positive (Abnormal) UROBILI Normal mg/dL (Normal) PROT DIPSTX 100 mg/dL (Abnormal) pH UR 6.0 (Normal) Range: 5.0 - 8.0 SP.GR. DIPSTX 1.025 (Normal) Range: 1.002-1.030 KETONE UR Negative mg/dL (Normal) BILIRUBIN URINE Negative mg/dL (Normal) GLUCOSE, UR Normal mg/dL (Normal) CLARITY Cloudy (Normal) COLOR Yellow (Normal) 76-Ajf-958440:15 CBC W/Diff, Automated Comments: [facility] [address] [place], [place], [address] Absolute Lymph 1.50 {X10_3/ul} (Normal) Range: 0.83-4.51 [...] 4.2-5.4 WBC 4.6 K/mm3 (Normal) Range: 4.4-11.0 66-Fvo-084993:15 Comprehensive Metabolic Profil Comments: [facility] [address] [place], [address] GAP 7 (Normal) Range: 5-15 CO2 28.0 mmol/L (Normal) Range: 21.0-32.0 CL 106 mmol/L (Normal) Range: 98-107 K 3.6 mmol/L (Normal) Range: 3.5-5.1 NA 141 mmol/L (Normal) Range: 136-145 T BILI 0.60 mg/dL (Normal) Range: 0.20-1.00 ALT 27 U/L (Normal) Range: 13-56 Comments: Please note revised ALT reference range /28/2018. ALK P 68 U/L (Normal) Range: 45-117 [...] criteria.Please note revised GLUCOSE reference range /02/2018. 7-Tja-216988:59 CPK Total, Creatine Kinase Comments: [facility] [address] [place], [place], [address] CPK TOTAL 55 U/L (Normal) Range: 26-192 3-Lkw-084509:59 GGTP 140 U/L (Abnormal) Comments: [facility] [address] [place], [place], [address] Range: 5-55 :50 CBC W/Diff, Automated Comments: [facility] [address] [place], [place], [address] Absolute Lymph 1.40 {X10_3/ul} (Normal) Range: 0.83-4.51 [...] Range: 4.4-11.0 24-Jun-20179:50 Comprehensive Metabolic Profil Comments: [facility] [address] [place], [address] GAP 7 (Normal) Range: 5-15 CO2 28.0 [...] <126 mg/dLsuggests IMPAIRED HOMEOSTASIS per A.D.A. criteria. 94-Syr-075841:00 CBC W/Diff, Automated Comments: [facility] [address] [place], [address] ; Dr Fiore Absolute Lymph [...] 4.2-5.4 WBC 5.2 K/mm3 (Normal) Range: 4.4-11.0 37-Mwb-793275:00 Comprehensive Metabolic Profil Comments: [facility] [address] [place], [place], [address] GAP 5 (Normal) Range: 5-15 CO2 27.0 [...] 7-18 GLU 106 mg/dL (Normal) Range: 70-110 45-Bot-913874:00 CBC W/Diff, Automated Comments: [facility] [address] [place], [place], [address] ; rheum Absolute Lymph 1.83 {X10_3/ul} (Normal) [...] 4.2-5.4 WBC 5.8 K/mm3 (Normal) Range: 4.4-11.0 07-Ttp-076070:00 Comprehensive Metabolic Profil Comments: [facility] [address] [place], [place], [address] ; Dr moreno GAP 7 (Normal) Range: [...] 7-18 GLU 98 mg/dL (Normal) Range: 70-110 32-Sll-865218:39 CBC W/Diff, Automated Comments: [facility] [address] [place], [address] SMEAR COMMENT SCANNED (Normal) Absolute Lymph 0.54 [...] 4.2-5.4 WBC 11.4 K/mm3 (Abnormal) Range: 4.4-11.0 12-Nvr-556864:39 Comprehensive Metabolic Profil Comments: [facility] [address] [place], [place], [address] GAP 10 (Normal) Range: 5-15 CO2 23.0 [...] 126 mg/dLsuggests DIABETES MELLITUS per A.D.A. criteria. 76-Yus-169387:39 Lipase Comments: [facility] [address] [place], [address] LIPASE 86 U/L (Normal) Range: 73-393 :01 Pap IG (Image Comments: Source.............Cervix;EndocervixNo. of containers..01 CYTYC Thin Prep VialPATIENT NOT FASTINGPERFORMED BY: =G [facility] J[address]qlkwb197 [facility] [place] [id number] BY: WB [employer]) Jefwttgavt336 [facility], [place] [id number] Note: PAPSMR (Normal) Comments: The Pap smear [...] metaplasticcells (endocervical component) are present.Z01.419CyAlek Fraser totechnologist ([facility]) :01 Thin prep Pap Comments: Source.............Cervix;EndocervixNo. of containers..01 CYTYC Thin Prep VialPATIENT NOT FASTINGPERFORMED BY: =G [facility] [address] [id number] BY: for[MD] (57264) (no STD rp [address] [place] [id number] Information: [id number]; ov in 2 weeks testing) Age Gdln ACOG Testing AGE4 (Normal) Comments: <21 or >65 or no age provided 13-Cqz-823952:55 CBC W/Diff, Automated Comments: [facility] [address] [place], [address] Absolute Lymph 1.88 {X10_3/ul} (Normal) [...] 4.2-5.4 WBC 5.7 K/mm3 (Normal) Range: 4.4-11.0 10-Oxb-053199:55 Comprehensive Metabolic Profil Comments: [facility] [address], [place], [address] GAP 7 (Normal) Range: 5-15 CO2 28.0 [...] 7-18 GLU 84 mg/dL (Normal) Range: 70-110 88-Kph-651875:52 CBC W/Diff, Automated Comments: [facility] [address] [place], [place], [address] Absolute Lymph 1.74 {X10_3/ul} (Normal) Range: 0.83-4.51 [...] 4.2-5.4 WBC 5.0 K/mm3 (Normal) Range: 4.4-11.0 47-Ggk-861036:52 Comprehensive Metabolic Profil Comments: [facility] [address] [place], [address] GAP 6 (Normal) Range: 5-15 CO2 29.0 [...] 7-18 GLU 107 mg/dL (Normal) Range: 70-110 79-Oes-648235:52 Vitamin D,25 Hydroxy Comments: [facility] [address] [place], [address] Vitamin D 25-OH 23.6 ng/mL (Normal) Comments: Vitamin D 25(OH) Status Range Deficiency <20 ng/mL (50nmol/L) Insuffciency 20 - 30 ng/mL (50 - 75 nmol/L) Sufficiency 30 - 100 ng/mL (75 - 250 nmol/L) Toxicity >100 ng/mL (>250 nmol/L) 93-Leb-852102:34 URINE DELMAR CULTURE-JEROME COL Comments: PATIENT NOT FASTINGPERFORMED BY: [facility]CoJ[facility] InstituteGtntoh1398 [facility] [id number] Information: SRC:URC [id number] COUNT (70494) Result 1 MUG (Normal) Comments: Mixed urogenital floraGreater than 100,000 colony forming units per mL Urine Culture,Comprehensive Final report (Normal) 04-Vae-193533:21 Urinalysis, Office (15957) UA - LEUKOCYTE ESTERASE Trace (Normal) UA - NITRITE Negative (Normal) URINE UROBILINGN JEROME TIMED Normal mg/dL (Normal) UA - PROTEIN Negative mg/dL (Normal) UA - PH 6.0 (Normal) Comments: 5.5 UA - BLOOD Negative (Normal) UA - SPECIFIC GRAVITY 1.030 (Abnormal) UA - KETONES Negative mg/dL (Normal) UA - BILIRUBIN Negative (Normal) UA - GLUCOSE Negative (Normal) 34-Ofd-520386:10 CBC W/Diff, Automated Comments: [facility] [address] [place], [address] Absolute Lymph 1.44 {X10_3/ul} (Normal) [...] 4.2-5.4 WBC 4.3 K/mm3 (Abnormal) Range: 4.4-11.0 26-Fkz-291973:10 Comprehensive Metabolic Profil Comments: [facility] [address] [place], [place], [address] GAP 3 (Abnormal) Range: 5-15 CO2 28.0 [...] 126 mg/dLsuggests DIABETES MELLITUS per A.D.A. criteria. 64-Bdf-682010:10 Vitamin D,25 Hydroxy Comments: [facility] [address] [facility] [place], [address] Vitamin D 25-OH 20.8 ng/mL (Normal) Comments: Vitamin D 25(OH) Status Range Deficiency <20 ng/mL (50nmol/L) Insuffciency 20 - 30 ng/mL (50 - 75 nmol/L) Sufficiency 30 - 100 ng/mL (75 - 250 nmol/L) Toxicity >100 ng/mL (>250 nmol/L) 01-Vab-004779:16 CBC W/Diff, Automated Comments: [facility] [address] [facility] [place], [address] ; ordered by another doctor [...] 4.2-5.4 WBC 5.1 K/mm3 (Normal) Range: 4.4-11.0 43-Igq-260483:16 Comprehensive Metabolic Profil Comments: [facility] [address], [place], [id number] ; ordered by another doctor GAP 7 [...] 7-18 GLU 87 mg/dL (Normal) Range: 70-110 94-Knv-372780:16 Vitamin D,25 Hydroxy Comments: [facility] [address] [place], [place], [id number] ; ordered by another doctor Vitamin D 25-OH 33.2 ng/mL (Normal) Comments: Vitamin D 25(OH) Status Range Deficiency <20 ng/mL (50nmol/L) Insuffciency 20 - 30 ng/mL (50 - 75 nmol/L) Sufficiency 30 - 100 ng/mL (75 - 250 nmol/L) Toxicity >100 ng/mL (>250 nmol/L) 0-Nox-220999:22 CBC W/Diff, Automated Comments: [facility] [address] [place], [place], [id number] Absolute Lymph 1.19 {X10_3/ul} (Normal) Range: 0.83-4.51 [...] 4.2-5.4 WBC 4.6 K/mm3 (Normal) Range: 4.4-11.0 6-Syi-564471:22 Comprehensive Metabolic Profil Comments: [facility] [address] [place], [place], [address] GAP 3 (Abnormal) Range: 5-15 CO2 29.0 [...] 7-18 GLU 100 mg/dL (Normal) Range: 70-110 0-Jvl-620062:22 Lipid Profile Comments: [facility] [address] [place], [place], [id number] VLDL 16 mg/dL (Normal) Range: 5-40 LDL [...] 200-240 mg/dL Borderline >240 mg/dL High Risk 4-Jhw-411799:22 Thyroid Stim Hormone (TSH) Comments: [facility] [address] [place], [address] TSH 1.39 {uIU/mL} (Normal) Range: 0.358-3.74 75-Buh-796068:30 CBC W/Diff, Automated Comments: Comments: IVT TO DRAW OFF [facility] pt arrived? YTest performed at:[facility] [address] [place], [place] [address] Absolute Lymph 1.56 {X10_3/ul} (Normal) Range: 0.83-4.51 [...] 4.2-5.4 WBC 4.7 K/mm3 (Normal) Range: 4.4-11.0 06-Eds-872464:30 Comprehensive Metabolic Profil Comments: Has pt arrived? YComments: IVT TO DRAW FROM PORTTest performed at:[facility] [address] [place] [address] GAP 8 (Normal) Range: 5-15 CO2 27.0 [...] Comments: Please note revised CREATININE reference range znppoamxl08/22/2015. BUN 21 mg/dL (Abnormal) Range: 7-18 GLU 133 mg/dL (Abnormal) Range: 70-110 Comments: Fasting Glucose result greater than or equal to 126 mg/dLsuggests DIABETES MELLITUS per A.D.A. criteria. 95-Eyt-364376:30 Vitamin D,25 Hydroxy Comments: Has pt arrived? YTest performed at:[facility] [address] [facility] [place] [address] Vitamin D 25-OH 22.5 ng/mL (Normal) Comments: Vitamin D 25(OH) Status Range Deficiency <20 ng/mL (50nmol/L) Insuffciency 20 - 30 ng/mL (50 - 75 nmol/L) Sufficiency 30 - 100 ng/mL (75 - 250 nmol/L) Toxicity >100 ng/mL (>250 nmol/L) 30-Xck-416399:42 D-Dimer Quantitative (DVT/PE) Comments: Test performed at:[facility] [address] [facility] [place] [address] D-DIMER QUANT 0.54 {FEU/ug/m} (Abnormal) Range: 0.27-0.49 Comments: D-Dimer ELEVATED (>0.49): Additional studies and clinicalassessments are indicated to conclude diagnosis of:Deep Vein Thrombosis (DVT) or Pulmonary Embolism (PE)CRITICAL VALUE CALLED TO [id number] 02/02 Ashish Griffin.RESULTS READ BACK BY SAME . 06-Feg-301962:39 Lipase Comments: Test performed at:[facility] [address] [place] [address] LIPASE 96 U/L (Normal) Range: 70-290 22-Gvt-797966:22 BNP,B-Type NATRIURETIC PEPTIDE Comments: Test performed at:[facility] [address] [place] [address] B-TYPE FATOUMATA PEP 124.8 pg/mL (Abnormal) Range: 0-100 69-Fya-576804:22 CBC W/Diff, Automated Comments: Test performed at:[facility] [address] [place] [address] Absolute Lymph 2.09 {X10_3/ul} (Normal) [...] 4.2-5.4 WBC 5.9 K/mm3 (Normal) Range: 4.4-11.0 10-Ner-283178:22 CK-MB Quantitative and Index Comments: Test performed at:[facility] [address] [place], [place] [id number] CPKMB 0.7 ng/mL (Normal) Range: 0.0-5.0 Comments: CK-MB and RI Interpretation MB Relative Index Non-AMI <or= 5 NA Indeterminate > 5 <or= 4 AMI > 5 > 4 CPK TOTAL 97 U/L (Normal) Range: 26-192 19-Hiy-831233:22 Comprehensive Metabolic Profil Comments: 'TROP' Serial specimen #1, #2, #3, or #4: 1Test performed at:[facility] [address] [place] [address] GAP 9 (Normal) Range: 5-15 [...] 126 mg/dLsuggests DIABETES MELLITUS per A.D.A. criteria. 95-Uxv-506995:22 Troponin-I Comments: 'TROP' Serial specimen #1, #2, #3, or #4: 1Test performed at:[facility] [address] [place] [address] TROPONIN-I < 0.02 ng/mL (Normal) Comments: TROPONIN-I EXPECTED VALUES <0.05 NEGATIVE 0.06 - 0.59 AT RISK OF [place] > OR = 0.60 SUGGEST [place] 98-Vij-079668:20 Urinalysis, Complete Comments: Order Date: 11/15/14How was Urine Obtained? CLEAN CATCHTest performed at:[facility] [address] [place], [place] [address] AMORPHOUS 1+ PHOS (Normal) MUCUS, URINE 0 [...] CLARITY Sl. Cloudy (Normal) COLOR Yellow (Normal) 38-Evh-346437:00 CBC W/Diff, Automated Comments: Comments: IVT TO DRAWTest performed at:[facility] [address] [place] [address] Absolute Lymph 1.62 {X10_3/ul} (Normal) [...] 4.2-5.4 WBC 5.8 K/mm3 (Normal) Range: 4.4-11.0 48-Jrr-682533:00 Comprehensive Metabolic Profil Comments: Comments: IVT TO DRAWTest performed at:[facility] [address], [place] [address] GAP 4 (Abnormal) Range: 5-15 CO2 27.0 [...] 126 mg/dLsuggests DIABETES MELLITUS per A.D.A. criteria. 71-Mxm-305303:25 CBC W/Diff, Automated Comments: Test performed at:[facility] [address] [place], [place] [address] Absolute Lymph 1.28 {X10_3/ul} (Normal) Range: 0.83-4.51 [...] 4.2-5.4 WBC 5.0 K/mm3 (Normal) Range: 4.4-11.0 74-Ieb-487873:25 Comprehensive Metabolic Profil Comments: Test performed at:[facility] [address] [place], [place] [address] GAP 4 (Abnormal) Range: 5-15 CO2 29.0 [...] 7-18 GLU 100 mg/dL (Normal) Range: 70-110 54-Yzs-286402:21 URINE DELMAR CULTURE-JEROME COL Comments: PATIENT NOT FASTINGPERFORMED BY: [facility] Srqwkg5145 [facility] [id number] Information: SRC:UR [id number] COUNT (34302) Result 1 MUG (Normal) Comments: Mixed urogenital flora1,000 Colonies/mL Urine Culture,Comprehensive Final report (Normal) 67-Iip-376556:35 Urinalysis, Office (67162) UA - LEUKOCYTE ESTERASE Trace (Normal) UA - NITRITE Negative (Normal) URINE UROBILINGN JEROME TIMED Normal mg/dL (Normal) UA - PROTEIN Negative mg/dL (Normal) UA - PH 6.0 (Normal) Comments: 5.5 UA - BLOOD Negative (Normal) UA - SPECIFIC GRAVITY 1.030 (Abnormal) UA - KETONES Negative mg/dL (Normal) UA - BILIRUBIN Negative (Normal) UA - GLUCOSE Negative (Normal) 0-Tir-413769:15 CBCD ALC 1.51 {X10_3/ul} (Normal) Range: 0.83-4.51 [...] 4.2-5.4 WBC 5.7 K/mm3 (Normal) Range: 4.4-11.0 9-Slg-670101:15 CMP Comments: Comments: FAX RESULTS TO DR. [...] or Folic Acid Supplements? N Range: 3.1-17.5 0-Yho-072284:01 Urinalysis, Office (18452) UA - LEUKOCYTE ESTERASE Negative (Normal) UA - NITRITE Negative (Normal) URINE UROBILINGN JEROME TIMED Normal mg/dL (Normal) UA - PROTEIN Negative mg/dL (Normal) UA - PH 5 (Abnormal) UA - BLOOD Negative (Normal) UA - SPECIFIC GRAVITY 1.025 (Normal) UA - KETONES Negative mg/dL (Normal) UA - BILIRUBIN Negative (Normal) UA - GLUCOSE Negative (Normal) 8-Ffl-500947:52 CBCD ALC 1.26 {X10_3/ul} (Normal) Range: 0.83-4.51 [...] 4.2-5.4 WBC 4.2 K/mm3 (Abnormal) Range: 4.4-11.0 1-Rhx-887524:52 CMP Comments: SED RATE ADD ON BLOOD [...] 126 mg/dLsuggests DIABETES MELLITUS per A.D.A. criteria. 0-Zns-317232:52 SED tSEDRATE 32 mm/h (Abnormal) Range: 0-30 :21 iPBE 0 mmol/L (Normal) :21 iPCO2 40.0 {mmHg} (Normal) Range: 35-45 :21 iPH 7.41 (Normal) Range: 7.35-7.45 :21 iPO2 83 {mmHG} (Normal) Range: 75-100 :21 iTCO2 26 mmol/L (Normal) :21 iTHCO3 25 mmol/L (Normal) Range: 22-26 Comments: Site = L BrachialAllens Test = POSDevice = Room AirResults To = OTHERTime Given = 915 :21 aGL6GNP 96 % (Normal) Range: 95-99 :21 iTYPE ART (Normal) 0-Sbr-835368:37 Rapid Flu (56975 x 2) Comments: neg Influenza A Ag negative a and b (Normal) 6-Hxu-916391:59 Influenza A&B Viral Comments: neg; PATIENT NOT FASTINGPERFORMED BY: [facility] [address] [place] [id number] Information: SRC:NOS [id number] Culture (14216) Viral Culture,Rapid,Influenza FLUABN (Normal) Comments: Negative:No Influenza [...] 7-18 GLU 87 mg/dL (Normal) Range: 70-110 7-Lmg-418331:05 FOL 22.20 ng/mL (Abnormal) Comments: COMMENTS: FAX RESULTS TO AISLINN BOYKIN FAITH DRAW Range: 3.1-17.5 35-Mrx-280706:08 CALCIFEDIOL (80688) Comments: PATIENT NOT FASTINGPERFORMED BY: [facility] InstituteJdqevm1257 [facility] [id number] Information: [id number] Vitamin D, 25-Hydroxy 47.6 ng/mL (Normal) Range: 30.0-100.0 Comments: Vitamin D deficiency has been defined by the [place] of[place]icine and an Endocrine Society practice guideline as alevel of serum 25-OH vitamin D less than 20 ng/mL (1,2).The Endocrine Society went on to further define vitamin Dinsufficiency as a level between 21 and 29 ng/mL (2).1. IOM ([place] of Medicine). 2010. Dietary reference intakes for calcium and D. [place]: The National Academies Press.2. Stacia MF, Mago MONTE, Meliza MAGDALENO, et al. Evaluation, treatment, and prevention of vitamin D deficiency: an Endocrine Society clinical practice guideline. JCEM. 2010; 96(7):1911-30. 9-Qdd-629829:18 BILAT SCRN DIGITAL & CAD Radiology Report [...] Morales M.D.May 04 012 at 2:58:08 PM [phone] Signed GP/GP If you are the referring physician and would like to consult with theradiologist who provided this interpretation, please contact Valdo bettencourt M.D. at [phone]. If this radiologist is unavailable, youwill be directed to another radiologist to assist. If you are a patient with a question regarding this report, pleasecontactyour refe rring physician directly. Professional Interpretation Provided By: [employer], Phone , These documents contain legally protected [...] D deficiency has been defined by the [place] of[employer] and an Endocrine Society practice guideline as alevel of serum 25-OH vitamin D less than 20 ng/mL (1,2).The Endocrine Society went on to further define vitamin Dinsufficiency as a level between 21 and 29 ng/mL (2).1. IOM ([place] of [employer]). 2010. Dietary reference intakes for calcium and D. [place]: The National Academies Press.2. Stacia MF, Mago [place], Meliza MAGDALENO, et al. Evaluation, treatment, and prevention of vitamin D deficiency: an Endocrine Society clinical practice guideline. JCEM. 2010; 96(7): 1911-30.Performed at: [address] [id number] Director: Meeta Hickman MD, Phone: [phone] 78-Dwv-190772:44 LIPID VLDL 14 mg/dL (Normal) Range: 5-40 [...] 200-240 mg/dL Borderline >240 mg/dL High Risk 05-Yar-552411:35 Urinalysis, Office (45123) UA - BILIRUBIN Small (Normal) UA - BLOOD Negative (Normal) UA - GLUCOSE Negative (Normal) UA - KETONES Small mg/dL (Normal) Comments: trace UA - LEUKOCYTE ESTERASE Negative (Normal) UA - NITRITE Negative (Normal) UA - PH 5.0 (Normal) UA - PROTEIN Trace mg/dL (Normal) UA - SPECIFIC GRAVITY 1.025 (Normal) URINE UROBILINGN JEROME TIMED Normal mg/dL (Normal) 18-Bcu-396048:07 CBC with manual diff Comments: PATIENT NOT FASTINGPERFORMED BY: [facility]JFK [facility] InstituteRbepak2780 [facility] [id number] Information: [id number] (37701) Immature Grans (Abs) 0.0 {x10E3/uL} (Normal) Range: [...] 3.80-5.10 WBC 5.6 {x10E3/uL} (Normal) Range: 4.0-10.5 72-Ofg-220270:07 Metabolic Panel, Comprehensive Comments: PATIENT NOT FASTINGPERFORMED BY: [facility]JFK [facility] InstituteJideqc0459 [facility] [id number] (35801) Alkaline Phosphatase, S 50 [iU]/L (Normal) Range: [...] Glucose, Serum 97 mg/dL (Normal) Range: 65-99 97-Meg-08495:00 SPINE, CERVICAL (ROUTINE) Radiology See Note Comments: [...] Key 06/18/101755 Sign by: Lee Ann Key 06-Gpl-068555:49 RENAL CO2 28.0 mmol/L (Normal) Range: 21.0-32.0 [...] 0.6-1.0 GLU 102 mg/dL (Normal) Range: 70-110 95-Ojk-59637:00 CERV SPINE,MIN 4 VIEWS Radiology Report See [...] 0855 Sign by: Alena Worley :55 CALCIFEDIOL (10886) Comments: PATIENT NOT FASTINGPERFORMED BY: [facility] Coemxz8502 [facility] [id number] Information: [id number] Vitamin D, 25-Hydroxy 36.1 ng/mL (Normal) Range: [...] (Normal) GLU 82 mg/dL (Normal) Range: 70-110 39-Kyw-356320:33 ALDOLASE 2030 4.7 U/L (Normal) Range: 1.2-7.6 Comments: Performed at: - [address] [id number] Director: Meeta Hickman MD 94-Aid-613213:33 CBCD ABSOLUTE NEUT 2.6 3/uL (Normal) Range: [...] 11.6-14.6 WBC 4.9 K/mm3 (Normal) Range: 4.4-11.0 66-Lph-017491:33 COMP METABOLIC Comments: LIVER TEST TO CL [...] 6.4-8.2 GLU 95 mg/dL (Normal) Range: 70-110 79-Wvt-753960:33 CPK TOTAL 37 U/L (Normal) Comments: LIVER TEST TO Range: 21-215 51-Syq-636585:33 D BILI 0.12 mg/dL (Normal) Comments: LIVER TEST TO Range: 0.00-0.30 15-She-231056:46 COMPLETE UA BACTERIA RARE {/hpf} (Normal) MUCUS, [...] CK-BB 0 % (Normal) Comments: Performed at: [place] [id number] Director: Meeta Hickman MD CK-MB 0 % (Normal) Range: 0-3 CK-MM 100 % (Normal) Range: 97-100 Macro I 0 % (Normal) Macro II 0 % (Normal) CPK,TOTAL,SERUM 59 U/L (Normal) Range: 24-173 :46 PTH,Intact 57 pg/mL (Normal) Range: 14-72 :46 TSH 1.06 {uIU/mL} (Normal) Range: 0.358-3.74 :29 ALDOLASE 2030 9.1 U/L (Abnormal) Range: 1.2-7.6 Comments: Performed at: [address] [id number] Director: Saul Cuadra MD :29 COMP METABOLIC [...] 126 mg/dLsuggests DIABETES MELLITUS per A.D.A. criteria. 19-Dmt-851175:29 CPK TOTAL 356 U/L (Abnormal) Range: 21-215 19-Zpm-532990:29 [facility] LAB TEST . (Normal) Comments: MYOGLOBIN, SERUM 121 H ng/mL 25 - 58 TESTING PERFORMED AT [facility]. ORIGINAL REPORT ONFILE IN LAB CONTAINS ADDITIONAL TEST SITE INF ORMATION. 09-Toh-065080:14 COMPLETE UA AMORPHOUS 4+ (Normal) BACTERIA 0 [...] :14 PTH,Intact 57 pg/mL (Normal) Range: 14-72 83-Zew-379000:14 TSH 1.02 {uIU/mL} (Normal) Range: 0.358-3.74 :03 ALDOLASE 2030 43.8 U/L (Abnormal) Range: 1.2-7.6 Comments: Performed at: - [facility] [id number] Director: Saul Cuadra MD :03 CKMB CKRI 0.2 % (Normal) Range: 0.0-1.4 Comments: RELATIVE INDEX >1.5% IS PRESUMPTIVELY POSITIVE CPKMB 18.3 ng/mL (Abnormal) Range: 0.0-5.0 Comments: CK-MB and RI Interpretation MB Relative IndexNon-AMI <or= 5 NAIndeterminate > 5 <or= 4AMI > 5 > 4 CPK TOTAL 8135 U/L (Abnormal) Range: 21-215 62-Krs-857001:03 CPK TOTAL 8135 U/L (Abnormal) Range: 21-215 [...] 0.6-1.0 GLU 109 mg/dL (Normal) Range: 70-110 86-Jyw-481404:10 Rapid Strep Test, Office (02557) Rapid Strep Test, Office Negative (Normal) 5-Ktg-336309:56 CALCIFEDIOL (72888) Comments: PATIENT NOT FASTINGPERFORMED BY: [facility]6370 [facility] [id number] Information: [id number] Vitamin D, 25-Hydroxy 19.7 ng/mL (Abnormal) Range: 32.0-100.0 Comments: Recent studies consider the lower limit of 32.0 ng/mL to be athreshold for optimal health.Froylan BHAKTA. J Nutr. 2004;135(2):317-22. 04-Nvr-326402:10 ABDOMEN/PELVIS WITH CONTRAST Radiology Report See Note (Normal) Comments: Exam Number: [id number] CLINICAL:58 year old woman with abnormal blood [...] surgically absent. Reported By: LOREN MALCOLM M.D. 62-Xhg-480609:15 TRANSVAGINAL NON-PREG US () Radiology Report See Note (Normal) Comments: Exam Number: [id number] CLINICAL:58-year-old female post menopausal with positive beta-hCG [...] weeks recommended. Reported By: WILLIE BOLIVAR M.D. 35-Wfx-936928:55 PELVIC (NON-PREG) (HP) Radiology Report See Note (Normal) Comments: Exam Number: [id number] CLINICAL:58-year-old female post menopausal with positive beta-hCG [...] HCGUQUAL SeeNote m[iU]/mL (Normal) Comments: Result: Negative 89-Jpi-499875:17 DELMAR CULTURE-OTHER (36205) Comments: PATIENT NOT FASTINGClinical Information: SRC:THRT ADD [id number] PERFORMED BY: [facility]6370 [facility] [id number] Result 1 RRF (Normal) Comments: Routine respiratory gabriella Upper Respiratory Culture Final report (Normal) 75-Qwb-855415:03 LQD PAP [id number] Comments: CYTOLOGY INFORMATION:- CLINICAL INFORMATION: - DATE LMP/MENOPAUSE: 1998 LMP- COLLECTION VIAL: Thin Prep Vial- AIR [place] SOURCE: CERVICAL/ENDOCERVICAL- COLLECTION TECHNIQUE: BRUSH/SPATULA ADEQ Comment (Normal) Comments: Satisfactory for evaluation. Endocervical and/or squamous metaplasticcells (endocervical component) are present. COMM . (Normal) DIAGN Comment (Normal) Comments: NEGATIVE FOR INTRAEPITHELIAL LESION AND MALIGNANCY. HPV RFLX Comment (Normal) Comments: The HPV DNA reflex criteria were not met with this specimenresult therefore, no HPV testing was performed. .Performed At: [address] [id number] PAPSMR Comment (Normal) Comments: The Pap smear is a screening test designed to aid in thedetection of premalignant and malignant conditions of theuterine cervix. It is not a diagnostic procedure andshould not be used as the sole means of detecting cervicalcancer. Both false-positive and false-negative reports dooccur. . PERFORM Comment (Normal) Comments: Ashwin Blanc, General Internist And Physician Leader (ASCP) 13-Qsf-849122:52 Microscopic Examination Comments: PATIENT WAS FASTINGPERFORMED BY: [facility] [id number] Bacteria Few (Normal) Epithelial Cells (non renal) None seen {/hpf} (Normal) Range: 0 - 10 RBC None seen {/hpf} (Normal) Range: 0 - 3 WBC 0-5 {/hpf} (Normal) Range: 0 - 5 99-Mti-005069:52 MICROALBUMIN: CREATININE RATIO Comments: PATIENT WAS FASTINGPERFORMED BY: [facility] [id number] (60129) AND (15743) Creatinine, Urine 353.6 mg/dL (Abnormal) Range: 15.0-278.0 Microalb/Creat Ratio 5.4 {ug/mg_creat} (Normal) Range: 0.0-30.0 Microalbumin, Urine 19.2 ug/mL (Abnormal) Range: 0.0-17.0 48-Ldi-745642:52 URINALYSIS (16923) Comments: PATIENT WAS FASTINGPERFORMED BY: [facility] [id number] Appearance Clear (Normal) Bilirubin Negative (Normal) Glucose Negative (Normal) Ketones Negative (Normal) Microscopic Examination See below: (Normal) Nitrite, Urine Negative (Normal) Occult Blood Negative (Normal) pH 8.0 (Abnormal) Range: 5.0-7.5 Protein 1+ (Abnormal) Specific [place] 1.010 (Normal) Range: 1.005-1.030 Urine-Color Yellow (Normal) Urobilinogen,Semi-Qn 0.2 mg/dL (Normal) Range: 0.0-1.9 WBC Esterase Negative (Normal) 30-Kmo-329576:52 Metabolic Panel, Comprehensive Comments: PATIENT WAS FASTINGPERFORMED BY: [facility] InstituteEmqcrr3843 [facility] [id number] (09771) A/G Ratio 1.6 (Normal) Range: 1.1-2.5 Albumin, [...] Sodium, Serum 144 mmol/L (Normal) Range: 135-145 93-Upi-532728:52 Lipid Panel (46181) Comments: PATIENT WAS FASTINGPERFORMED BY: for[MD][facility] InstituteKzejhb9982 [facility] [id number] Cholesterol, Total 237 mg/dL (Abnormal) Range: 100-199 [...] Cholesterol García 19 mg/dL (Normal) Range: 5-40 45-Dmg-250415:52 CBC with manual diff (60077) Comments: PATIENT WAS FASTINGClinical Information: ADD DARW FEE 181005 ADD J 09057 PERFORMED BY: [facility]CoJFK [facility] InstituteTvgbda3736 [facility] [id number] Baso (Absolute) 0.1 {x10E3/uL} (Normal) Range: 0.0-0.2 [...] [facility] Indication: Insomnia Vitamin D deficiency, unspecified : [...] pain : Follow up on Wednesday with [facility] Indication: Back pain Carnitine deficiency [...] : FOLLOW UP IN 3 MONTHS with [facility] Indication: Unspecified inflammatory polyarthropathy Vitamin D deficiency, [...] Indication: DEPRESSIVE DISORDER (311.0) Planned Observations TSH (30114)Indication: Leg pain On: 90-Sqf-668864:42 Request CBC, Platelets & Auto Diff (47132)Indication: Leg pain On: 27-Fvu-478210:42 Request Metabolic Panel, Comprehensive (49812)Indication: Leg pain On: 88-Xvk-790973:42 Request Vitamin B-12 (cyanocobalamin) (65817)Indication: B12 deficiency On: 18-Syr-784745:55 Request CPK TOTAL & ISOENZYMES (57029)Indication: Pain in unspecified joint On: 10-Rfa-484897:03 Request URINE DELMAR CULTURE-IDENTIFICATN (57037)Indication: Dysuria On: 55-Twi-592420:16 Request URINALYSIS (33344)Indication: Dysuria On: 70-Fba-274508:16 Request CALCIFEDIOL (58719)Indication: Postmenopausal (Renamed from Postmenopausal status) On: 7-Wxf-976549:50 Request HPV automatic (96039)Indication: Screening for HPV (human papillomavirus) (Renamed from Encounter for screening for human papillomavirus (HPV)) On: 4-Xzu-761304:49 Request Metabolic Panel, Comprehensive (41873)Indication: DM (diabetes mellitus screen) On: 94-Dpq-788983:24 Request TSH (50483)Indication: Screening for deficiency anemia On: 21-Vbd-208434:23 Request CBC, Platelets & Auto Diff (19908)Indication: Screening for deficiency anemia On: 27-Hse-661744:23 Request Lipid Panel (22723)Indication: Screening for hyperlipidemia On: 51-Rye-188103:23 Request VITAMIN B12 AND FOLATES (40635)Indication: Leg pain On: 0-Eqq-362408:27 Request HEPATIC FUNCTION PANEL (15760)Indication: Hypercholesteremia On: 44-Ioj-154923:15 Request CBC with manual diff (78571)Indication: Carnitine deficiency On: 73-Udc-649622:10 Request Metabolic Panel, Comprehensive (39071)Indication: Arthritis On: 91-Emo-664296:10 Request LIPID PANEL (70718)Indication: Hypercholesteremia On: 72-Twc-170783:10 Request CBC (AUTO) (51531)Indication: FATIGUE On: 5-Xha-143814:24 Request METABOLIC PANEL, COMPREHENSIVE (76551)Indication: FATIGUE On: :24 Request Folate (18342)Indication: FATIGUE On: 2-Mrt-818696:24 Request VITAMIN B-12 (CYANOCOBALAMIN) (08545)Indication: FATIGUE On: 5-Sjn-188065:24 Request TSH (79844)Indication: DEPRESSIVE DISORDER (311.0) On: 26-Thd-875757:16 Request CBC with manual diff (16822)Indication: Myopathy NOS On: 6-Ewo-623123:03 Request Metabolic Panel, Comprehensive (91087)Indication: DEPRESSIVE DISORDER (311.0) On: 4-Xzs-650470:03 Request Lipid Panel (31465)Indication: Hypercholesteremia On: 1-Fjq-728617:03 Request CALCIFEDIOL (94681)Indication: Vitamin D deficiency, unspecified On: 5-Gna-873459:02 Request Renal function Panel (55797)Indication: Neck pain On: 78-Sng-815498:14 Request CALCIFEDIOL (33357)Indication: Vitamin D deficiency, unspecified On: 26-Jun-20099:26 Request Comments: draw Beginning September 2009 TEST - SERUM QUANTITATIVE (HCG) (82846)Indication: Abnormal blood chemistry On: 16-Fbq-778263:06 Request PREGNACY TEST, URINE (58171)Indication: Abnormal blood chemistry On: 16-Cii-338906:06 Request Lipid Panel (73519)Indication: Hypercholesteremia On: 18-Odw-255843:16 Request Comments: fasting Rapid Strep Test, Office (27375)Indication: Pharyngitis, acute On: 45-Uyd-026787:04 Request Thin prep Pap (36668)Indication: Well woman exam On: 38-Hma-916798:09 Request FECAL OCCULT HGB ASSAY- tubes sent home (31987)Indication: Well woman exam On: 70-Xec-445533:54 Request OCCULT BLOOD FECES SCREEN- card done in office (29574)Indication: Well woman exam On: :54 Request CPK TOTAL & ISOENZYMES (03125)Indication: Myalgia and myositis On: 91-Xqb-716010:37 Request CALCIFEDIOL ([id number])Indication: Leg cramps On: :36 Request VITAMIN B-12 (CYANOCOBALAMIN) ([id number])Indication: Pain in unspecified joint On: :35 Request PARATHORMONE ([id number])Indication: Myalgia and myositis On: :35 Request RHEUMATOID FACTOR-QUANT ([id number])Indication: Pain in unspecified joint On: :15 Request SED RATE ERYTHROCYTE ([id number])Indication: Pain in unspecified joint On: :15 Request Planned Procedures Venous Doppler - LeftBy: Teddy BINGHAM, On: 02-May-2018 Intent Aislinn Leonard CNP Aerosol Treatment ([id number])By: Teddy On: 28-Mar-2018 Intent Aislinn BINGHAM CNP, Mary E Flu Vaccine (Quadrivalent) 22707Pv: On: 28-Mar-2018 Aislinn Giron CNP, CNP, Mary E Comments: Lot #[id number]-L dltd, IMDose prefilled syringegiven by: VENANCIO Noriega [...] 23-Dec-2016 Intent Aislinn Araujo CNP Ear Irrigation ([id number])By: Teddy On: 18-Dec-2016 Intent Aislinn BINGHAM CNP, Mary E Wax CurettesBy: Teddy BINGHAM Aislinn Aragon On: 18-Dec-2016 Intent Teddy BINGHAMAislinn Aerosol Treatment ([id number])By: Teddy On: 18-Dec-2016 Intent Aislinn BINGHAM SwethaAislinn armenta CNP Wax CurettesBy: Pamela Bates On: 01-Dec-2016 Intent Ear Irrigation ([id number])By: Paulo On: 01-Dec-2016 Intent Pamela Comments: Ear Irrigation performed on:rightAmount/color removed cerumen:small OUtcome:clear and tolerated PNEUM VAC ADLT/IMUMNOSPR, SBC/INTRM On: 19-May-2016 Intent ([id number])By: Teddy BINGHAM Aislinn Aragon Teddy BINGHAM Aislinn Aragon Flu Vaccine (Quadrivalent) [id number]: On: 12-May-2016 Intent Teddy BINGHAMAislinn Swethanylakayli BINGHAM Aislinn Aragon Comments: FLUlot: [id number]:11/04site:Lt deltoidroute:IMdose:.5mlDEMICK, MA DEXA SCAN AXIAL SKELETON ([id number])By: On: 22-Apr-2016 Intent Teddy BINGHAM Aislinn Aragon [...] Boykin CNP Divya DEXA SCAN AXIAL SKELETON ([id number])By: On: 06-Mar-2015 Intent Teddy BINGHAM DivyaMargo Boykin CNP Aislinn Aragon MAMMOGRAM, SCREENING, BOTH BREAST On: 06-Mar-2015 Intent ([id number])By: Aislinn Boykin CNP, CNP Divya ANNUAL DEPRESSION SCREENING, 15 On: 06-Mar-2015 Intent MINUTES ([id number])By: Aislinn Boykin CNP, CNP, Mary E Venous Doppler - LeftBy: Teddy BINGHAM, On: 29-Aug-2014 Intent Aislinn Leonard CNP MARY ALICE (Ankle Brachial Index) On: 29-Aug-2014 Intent ([id number])By: Aislinn Boykin CNP, CNP, Mary E SPECIMEN HANDLING/TRANSPORT On: 16-May-2014 Intent ([id number])By: Aislinn Boykin CNP, CNP, Mary E Flu Vaccine (Quadrivalent) [id number]: On: 19-Apr-2014 Intent Aislinn Boykin CNP, CNP, Mary E Comments: lot:[id number]:dose:0.5mLRoute: IMlocation: L armgiven by: elyse ADMINISTRATION OF INFLUENZA VIRUS On: 19-Apr-2014 Intent VACCINE ([id number])By: Mckenzie Zhao Radiology - Lumbar SpineBy: Alidaa On: 29-Dec-2013 Intent Aislinn BINGHAM CNP, Mary E Toradol Injection, 30 mg ([id number])By: On: 29-Dec-2013 Intent Aislinn Boykin CNP, CNP, Mary E Ear Irrigation ([id number])By: Eben On: 19-Apr-2013 Intent Mayela LONDONO Comments: Ear Irrigation performed on:bilateralAmount/color removed cerumen:small amount of darkl brown waxOUtcome:clearUsed wax curettes FLU VAC, SPLIT, >3 YEARS, INTRAMUSC On: 19-Apr-2013 Intent ([id number])By: Pamela Crooks LPN Comments: Lot:[id number]:6.14Amt:0.5mlRoute:IMSite: L DltdGiven By: Alejandra CMAVIS signed IMMUNIZ ADMNIN, 1 VAC, SNGL/COMBO On: 19-Apr-2013 Intent ([id number])By: Pamela Crooks LPN Wax CurettesBy: Mayela Treadwell DO On: 19-Apr-2013 Intent Eprescribed prescriptions ([id number])By: On: 19-Apr-2013 Intent Pamela Crooks LPN B 12 Injection, 1000 mcg (J3420)By: On: 28-Dec-2012 Intent Kassie Tellez LPN B 12 Injection, 1000 mcg (J3420)By: On: 29-Nov-2012 Intent Pattie Malagon LPN Comments: Lot: [id number]: [id number]: 1000mcg/1mlRoute: IMSite: L deltoidGiven by: CHRISTOPHE Allen B 12 Injection, 1000 mcg (J3420)By: On: 26-Oct-2012 Intent Jina Gomes LPN Comments: Lot #[id number]-right deltoidDose-1 mlgiven by: Rishabh Gomes LPN B 12 Injection, 1000 mcg (J3420)By: On: 11-Oct-2012 Intent Deedee Cantrell Comments: lot: [id number]:06/03site/route: L deltoid/IMamt: 1ccVIS signed when applicableChelsea, PAINT SPRAY TENDER B 12 Injection, 1000 mcg (J3420)By: On: 05-Oct-2012 Intent Aislinn Boykin CNP, CNP, Mary E B 12 Injection, 1000 mcg (J3420)By: On: 27-Sep-2012 Intent Valencia Renee Comments: Lot:[id number]:06/03Dose:1mlRoute:IMSite:l armGiven By:BRYNN signed IMMUNIZ ADMNIN, 1 VAC, SNGL/COMBO On: 29-Mar-2012 Intent ([id number])By: Aislinn Boykin CNP Comments: lot # [id number]- 12/18/1248okgp-[id number]-MRuado- 0.5 MLCHendersAislinn gunn LPN, CNP MAMMOGRAM, SCREENING, BOTH BREASTS On: 29-Mar-2012 Intent ([id number])By: Aislinn Boykin CNP, CNP, Mary E FLU VAC, SPLIT, >3 YEARS, INTRAMUSC On: 29-Mar-2012 Intent ([id number])By: Aislinn Boykin CNP, CNP, Mary E MRI -Cervical Spine (IV Contrast On: 11-Jun-2010 Intent Needed)By: Aislinn Byokin CNP, CNP, Mary E Radiology - Cervical SpineBy: Eben On: 05-Jun-2010 Intent Mayela LONDONO Aerosol Treatment ([id number])By: Teddy On: 03-Sep-2009 Intent Aislinn BINGHAM CNP, Mary E Pulse Oximetry ([id number])By: Teddy BINGHAM, On: 06-May-2009 Intent Aislinn Leonard CNP Aerosol Treatment ([id number])By: Teddy On: 06-May-2009 Intent Aislinn BINGHAM CNP, Mary E IMMUNIZ ADMNIN, 1 VAC, SNGL/COMBO On: 20-Mar-2009 Intent ([id number])By: Aislinn Boykin CNP, CNP, Mary E FLU VAC, SPLIT, >3 YEARS, INTRAMUSC On: 20-Mar-2009 Intent ([id number])By: Aislinn Boykin CNP Comments: Lot #[id number]-left deltoidgiven by:Aislinn LEMONS CNP CT - Abdomen & Pelvis (IV Contrast On: 14-Mar-2009 Intent Needed)By: Aislinn Boykin CNP, CNP, Mary E Ultrasound - PelvisBy: Teddy BINGHAM On: 14-Mar-2009 Intent Aislinn Leonard CNP Comments: attention adrenals and ovaries SPECIMEN HNDLNG/TRNSPRT, OFFC > LAB On: 18-Jan-2009 Intent ([id number])By: Aislinn Boykin CNP, CNP, Mary E DXA, BONE DENSITY, AXIAL SKELETON On: 13-Nov-2008 Intent (03098)By: Aislinn Boykin CNP, CNP, Mary E MAMMOGRAM, SCREENING, BOTH BREASTS On: 13-Nov-2008 Intent ([id number])By: Aislinn Boykin CNP, CNP, Mary E ELECTROCARDIOGRAM, COMPLETE (ECG) On: 11-Oct-2008 Intent ([id number])By: Aislinn Boykin CNP, CNP, Mary E Planned Medications INJECTION, KETOROLAC TROMETHAMINE, PER 15 MG Ordered: 29-Dec-2013 Pending Aislinn Boykin CNP, CNP, Mary E INJECTION, METHYLPREDNISOLONE SODIUM SUCCINATE, UP TO 125 MG Ordered: 03-Dec-2017 Pending Ciesa PENSION AGENT, Divya Ciesa PENSION AGENT, Divya Vitamin B-12 1000 MCG/ML Injection Solution Ordered: 27-Sep-2012 Pending Valencia Renee Vitamin B-12 1000 MCG/ML Injection Solution Ordered: 05-Oct-2012 Pending Teddy BINGHAM, DivyaMargo Boykin PENSION AGENT, Aislinn Aragon Vitamin B-12 1000 MCG/ML Injection Solution Ordered: 11-Oct-2012 Pending Deedee Cantrell Vitamin B-12 1000 MCG/ML Injection Solution Ordered: 26-Oct-2012 Pending Eliseo PAPER CARRIERJina Vitamin B-12 1000 MCG/ML Injection Solution Ordered: 29-Nov-2012 Pending Vesna PAPER CARRIER, Pattie Vitamin B-12 1000 MCG/ML Injection Solution Ordered: 28-Dec-2012 Pending Geoff PAPER CARRIER, Kassie Vitamin B-12 1000 MCG/ML Injection Solution [...] D deficiency, unspecified : DISCONTINUED - CALCIFEDIOL (64575) Indication: Vitamin D deficiency, unspecified B12 deficiency [...] for Shingles: [facility]-May-2015 12:08 nations secondary from oxycontin [...] patient does not have durable power of wireless sales consultant or living will. The patient has noticed feeling helpless (feels depressed jasiel etimes). Other providers contributing to the patient's care are marine equipment test engineer (Dr Genao) and other: (Neuro Danielle Mariee [...] patient does not have durable power of wireless sales consultant or living will. The patient has noticed staying at home rather than doing something new or going out and lack of energy. Other providers contributing to the patient's care are marine equipment test engineer and other: (neuromuscular specKraig Manriquez). Comprehensive Internal [...]
--- OUTSIDE RECORDS SUMMARY | 2018-07-18 08:30 | XMS RPT_ITS | Continuity of Care Document ---
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 Manriquez at [facility] getting carotene weekly IV twice a [...] {Tablet} Refills: 0 Ordered:28-Mar-2018 Teddy BINGHAM, Aislinn Matamoros CNP Start : 28-Mar-2018 Active NASACORT AQ, [...] : 18-Dec-2016 End : 28-Dec-2016 Inactive ERGOCALCIFEROL, 50500IZHL (Oral Capsule) 1 (one) Capsule twice weekly [...] 3 days then 1 tab tid NYSTATIN, 941315UWPH/ML (Mouth/Throat Suspension) 4 Milliliter qid for 7 [...] 11-Apr-2012 End : 11-Oct-2015 Discontinued VITAMIN D, 49937SCJT (Oral Capsule) 1 (one) Capsule twice weekly [...] Operative Report Result: Comments: See Note; NOTES: [facility] Medical Records Department [address] [place] [address] Operative Report 01/25/18 1254 MR#: [id number] Acct: [id number] Name: HANNA CHAVEZ Rep #: [id number] : 1950 67 From: Vaishnavi Dietz MD PCP: Aislinn Boykin NP Status: [place] [facility] [place]: [place] [address] Problem List (1) Urinary tract infection Status: Acute Report of Operation Date of Procedure: 01/25/18 Pre-Operative Diagnosis: urinary tract infection, pelvic pain Post-Operative Diagnosis: same and rectocele Surgery/Procedure Performed:: cystoscopy and pelvic exam under anesthesi a Description of Surgical Findings:: normal cystoscopy. very short anterior vaginal wall. grade 3 rectocele. atrophy. robot operator: Vaishnavi Dietz Type of Anesthesia:: MAC [...] Discharge Instruction Result: Comments: See Note; NOTES: [facility] Medical Records Department [address] [place] [address] Instructions for Home/Discharge Instructions 01/25/18 1228 MR#: [id number] Acct: [id number] Name: HANNA CHAVEZ Rep #: [id number] : 1950 67 From: Vaishnavi Dietz MD PCP: Teddy LUGO, Aislinn Status: [place] [facility] Diet: No Restrictions Discharge Activity: Return [...] DAILY 05/23/13 Triamcinolone Acetonide [Nasacort Aq Nasal [place]] 2 spray NASAL DAILY PRN 05/23/13 Levocarnitine [...] and Bladder Result: Comments: See Note; NOTES: [facility] Imaging Services [address] [place] [address] Kidney and Bladder MR#: [id number] Acct: [id number] Name: HANNA CHAVEZ Alanis Rep #: [id number] DO B: 1950 F 67 From: Tee Weems PCP: Aislinn Boykin NP Status: REG CLI Study: Kidney and Bladder Date of Exam: 01/17/18 Exam# [id number] Ordering Dr: Vaishnavi Dietz MD STUDY: RENAL [...] , Service support , CC: Aislinn Boykin ARTIST WOODBLOCK; Vaishnavi Dietz MD Tobacco Sampler: Signed 29-Dec-2017 Transvaginal Non- Result: Comments: See Note; NOTES: [facility] Imaging Services [address] [place] [address] Transvaginal Non- MR#: [id number] Acct: [id number] Name: HANNA CHAVEZ Rep #: [id number] : 1950 F 67 From: Jacky Hanson MD PCP: Aislinn Boykin NP Status: REG CLI Study: Transvaginal Non- Date of Exam: 12/29/17 Exam# [id number] Ordering Dr: Vaishnavi Dietz MD STUDY: U [...] CC: Aislinn Boykin NP; Vaishnavi Dietz MD Tobacco Sampler: Signed 09-Dec-2017 Downtime Report Result: Comments: See Note; NOTES: [facility] Medical Records Department [address] [place] [address] Downtime Report MR#: [id number] Acct: [id number] Name: HANNA CHAVEZ Rep #: [id number] : 1950 67 From: Elmer Moreno PCP: Aislinn Boykin NP Status: REG CLI This patient was seen during an EMR downtime November 22, 2017 - November 29, 2017. This patient may have a combination of paper and electronic documentation or all paper documentation. All documentation is viewable within the e-chart portion of [facility] for each patient visit. 09-Dec-2017 Downtime Report Result: Comments: See Note; NOTES: [facility] Medical Records Department [address] [place] [address] Downtime Report MR#: [id number] Acct: [id number] Name: HANNA CHAVEZ Rep #: [id number] : 1950 67 From: Elmer Moreno PCP: Aislinn Boykin NP Status: REG CLI This patient was seen during an EMR downtime November 22, 2017 - November 29, 2017. This patient may have a combination of paper and electronic documentation or all paper documentation. All documentation is viewable within the e-chart portion of [facility] for each patient visit. 03-Dec-2017 Foot min 3 Views Result: Comments: See Note; NOTES: [facility] Imaging Services [address] [place] [address] Foot min 3 Views MR#: [id number] Acct: [id number] Name: HANNA CHAVEZ Rep #: [id number] : 1950 F 67 From: Yahir Wolfe MD PCP: Aislinn Boykin NP Status: REG CLI Study: Foot min 3 Views Date of Exam: 12/03/17 Exam# [id number] Ordering Dr: Aislinn Boykin STUDY: X-RAY - [...] Service support , CC: Aislinn Boykin NP Tobacco Sampler: Signed 23-Dec-2016 Chest PA and Lateral Result: Comments: See Note; NOTES: [facility] Imaging Services [address] [place] [address] Verdana 4d Chest PA and Lateral MR#: [id number] Acct: [id number] Name: HANNA CHAVEZ Rep #: [id number] : 1950 F 66 From: Juan Woody MD PCP: Aislinn Boykin Status: REG CLI Study: Chest PA and Lateral Date of Exam: 12/23/16 Exam# [id number] Ordering Dr: Danielle Manriquez MD STUDY: X-RAY [...] , Service support , CC: Aislinn Manriquez Tobacco Sampler: Signed 05-Jul-2016 Discharge Instruction Result: Comments: See Note; NOTES: [facility] Medical Records Department [address] [place] [address] Discharge Instruction 07/05/162116 MR#: [id number] Acct: [id number] Name: JOSH CHAVEZ Rep #: [id number] : 1950 66 From: Sarabjit Salinas MD [...] your Primary Care Provider. Call [facility] ([phone]) or report to the closest Emergency Room. Call 911 if necessary. 07/05/16 <Electronically signed by Sarabjit aSlinas MD> Date Sarabjit Salinas MD Cosigner Signature (If Indicated): Date CC: Aislinn Boykin 05-Jul-2016 Emergency Department Summary Result: Comments: See Note; NOTES: [facility] Medical Records Department [address] [place] [address] Emergency Department Summary 07/05/162113 MR#: [id number] Acct: [id number] Name: HANNA CHAVEZ Rep #: [id number] : 1950 66 From: Sarabjit Salinas MD [...] your Primary Care Provider. Call [facility] ([phone]) or repor t to the closest Emergency Room. Call 911 if necessary. 07/05/162116 <Electronically signed by Sarabjit Salinas MD> Date Sarabjit Salinas MD Cos igner Signature (If Indicated): Date CC: Aislinn Boykin 16-Apr-2015 Emergency Department Summary Result: Comments: See Note; NOTES: [facility] Medical Records Department [address] [place] [address] Emergency Department Summary MR#: [id number] Acct: [id number] Name: HANNA CHAVEZ Rep #: [id number] : 1950 64 From: Breanna Ryan MD [...] was at 3:00 a.m. She comes in [facility] for pain control. PHYSICAL EXAMINATION: [...] pain. Breanna Ryan MD T: NTS JOB: [id number] 04/16 2359 <Electronically signed by Breanna Ryan MD> Date Breanna Ryan MD Cosigner Signature (If Indicated): Date _ CC: Carla Hughes MD Date Dictated: 04/15/15816 Date Transcribed: 04/15/15816 Tobacco Sampler: Signed 15-Apr-2015 Discharge Instruction Result: Comments: See Note; NOTES: [facility] Medical Records Department [address] [place] [address] Discharge Instruction 04/15/15808 MR#: [id number] Acct: [id number] Name: HANNA CHAVEZ Rep #: [id number] : 1950 64 From: Breanna Ryan MD [...] problems, contact your doctor. Call [facility] ([phone]) or report to the closest Emergency Room. Call 911 if necessary. 04/15/15817 <Electronically signed by Breanna Ryan MD> Date Breanna Ryan MD Cosigner Signature (If Indicated): Date CC: Carla Hughes MD 03-Dec-2014 Emergency Department Summary Result: Comments: See Note; NOTES: [facility] Medical Records Department [address] [place] [address] Emergency Department Summary MR#: [id number] Acct: [id number] Name: HANNA CHAVEZ Rep #: [id number] : 1950 64 From: Shruthi Savage DO [...] Hughes. 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 [...] in stable condition. Shruthi Savage DO T: [facility] JOB: [id number] 12/03/14 2329 <Electronically signed by Shruthi Savage DO> Date Thalia Savage DO CC: Carla Hughes MD Date Dictated: 11/15/141931 Date Transcribed: 11/15/141931 Tobacco Sampler: Signed 16-Nov-2014 12 Lead Electrocardiogram Result: Comments: See Note; NOTES: [facility] Cardiovascular Services [address] [place] [address] 12 Lead EKG 11/15/14 1626 MR#: [id number] Acct: [id number] Name: HANNA CHAVEZ Rep #: [id number] : 1950 64 From: Lamont Lucas MD [...] l ECG Confirmed by LAMONT LUCAS ([id number]), newspaper or periodical editor LAKIA MORENO ([id number]) on 11/16/2014 10:58:54 AM Referred By: JERE Confirmed By:LAMONT LUCAS 11/16/14 1059 Date Lamont Lucas MD CC: Carla Hughes MD Date Dictated: 11/15/141625 Date Transcribed: 11/15/141625 Tobacco Sampler: Signed 15-Nov-2014 Discharge Instruction Result: Comments: See Note; NOTES: [facility] Medical Records Department [address] [place] [address] Discharge Instruction 11/15/141924 MR#: [id number] Acct: [id number] Name: HANNA CHAVEZ Alanis Rep #: [id number] : 1950 64 From: Shruthi Savage DO [...] problems, contact your doctor. Call [facility] ([phone]) or report to the [facility] Emergency Room. Call 911 if necessary. 11/15/141927 <Electronically signed by Shruthi Savage DO> Date Shruthi Savage DO Co signer Signature (If Indicated): Date CC: Carla Hughes MD 15-Nov-2014 CTA Chest W/WO Contrast Result: Comments: See Note; NOTES: [facility] Imaging Services [address] [place] [address] CAT Scan Report MR#: [id number] Acct: [id number] Name: CHAVEZHANNA Rep #: [id number] : 1950 F 64 From: Chele Puckett MD PCP: Carla Hughes MD Status: REG ER Study: CTA Chest W/WO Contrast Date of Exam: 11/15/14 Exam# [id number] Ordering Dr: Shruthi Savage DO STUDY: CTA [...] MD at 19:05 EDT , Service support [phone], CC: Carla Hughes MD; Shruthi Savage DO Tobacco Sampler: Signed 15-Nov-2014 Chest PA and Lateral Result: Comments: See Note; NOTES: [facility] Imaging Services [address] [place] [address] Radiology Report MR#: [id number] Acct: [id number] Name: HANNA CHAVEZ Rep #: [id number] : 1950 F 64 From: Martín Morales MD PCP: Carla Hughes MD Status: DEP ER Study: Chest PA and Lateral Date of Exam: 11/15/14 Exam# [id number] Ordering Dr: Shruthi Savage DO STUDY: X- [...] Martín Morales MD at 9:28 EDT Tel [phone], Service support [phone], 0062 RAD/Chest PA and Lateral IMPRESSION: No acute abnormality is seen. Electronically Signed: Martín Morales MD at 9:28 EDT Tel [phone], Service support [phone], CC: Carla Hughes MD; Shruthi Savage DO Tobacco Sampler: Signed 29-Dec-2013 L/S Spine Min 4 Views Result: Comments: See Note; NOTES: [facility] Imaging Services [address] [place] [address] Radiology Report MR#: [id number] Acct: [id number] Name: HANNA CHAVEZ Rep #: [id number] : 1950 F 63 From: Nirmal Watts PCP: Carla Hughes MD Status: REG CLI Study: L/S Spine Min 4 Views Date of Exam: 12/29/13 Exam# [id number] Ordering Dr: Carla Hughes MD STUDY: X-RAY [...] DO at 23:38 EDT , Service support [phone], CC: Carla Hughes MD Tobacco Sampler: Signed Immunization Name Dates Details Influenza (3 years and up) on: 20-Mar-2009 Comments: Lot #[id number]-left deltoidgiven by:CDH Family History Unknown Family Member Name Dates Details No Known Family History Status: Active Social History Name Dates Details Tobacco use: Never smoker. Status: Active Smoking Status Name Dates Details Never smoker Vital Signs Date Test Result Details 5-Uhd-625367:41 Temperature 98 f Comments: Method: Temporal Pulse [...] 1.92 m2 :31 [facility]2 [facility] Pulse 86 /min Comments: [...] :57 Comments: Glaucoma screening done at [facility] yearly Temperature 97.9 f Pulse 66 [...] Vitamin B12 > 2000 pg/mL (Abnormal) Comments: [facility] [address] [place], [address] Range: 211-911 51-Iwm-515124:11 CBC W/Diff, Automated Comments: [facility] [address] [place], [address] Absolute Lymph 1.66 {X10_3/ul} (Normal) Range: [...] 4.2-5.4 WBC 5.9 K/mm3 (Normal) Range: 4.4-11.0 13-Zww-413108:11 Comprehensive Metabolic Profil Comments: [facility] [address] [place], [address] GAP 8 (Normal) Range: 5-15 [...] Comments: Please note revised GLUCOSE reference range askupssis86/02/2018. 53-Piz-450901:47 Culture, Urine Comments: [facility] [address] [facility]. [place], [place], [address] CUUR See Note (Normal) Comments: Urine CultureORGANISM 1: Mixed Gram Pos AND Gram Neg OrgColony Count 50,000-80,000MIX CULTURE Mixed contaminants. Submit a new specimen if indicated. 19-Iet-495334:47 Urinalysis, Complete Comments: How was Urine Obtained? CLEAN [facility] [address] [facility] [place], [place], [phone] MUCUS, URINE 0 SEEN {/hpf} (Normal) BACTERIA [...] BELOW (Normal) Comments: Visual Urine Color: GREEN 44-Kkq-055423:41 TSH (19215) Comments: PATIENT NOT FASTINGPERFORMED BY: [facility] Rgbrij9750 [facility] [id number] TSH 2.310 {uIU/mL} (Normal) Range: 0.450-4.500 89-Tdh-622288:28 URINE DELMAR CULTURE-IDENTIFICATN Comments: PATIENT NOT FASTINGPERFORMED BY: [facility] Tvgbwd2507 [facility] [id number] Information: SRC:UR (38845) Result 1 MUG (Normal) Comments: Mixed urogenital flora1,000 Colonies/mL Urine Culture,Comprehensive Final report (Normal) 07-Dey-271799:41 Metabolic Panel, Comprehensive Comments: PATIENT NOT FASTINGPERFORMED BY: PetSitnStayrp Ijsljr1485 [facility] [id number] (73834) ALT (SGPT) 16 [iU]/L (Normal) Range: 0-32 [...] 8-27 Glucose 89 mg/dL (Normal) Range: 65-99 50-Cia-696498:02 Urinalysis, Office (64435) UA - LEUKOCYTE ESTERASE Small (Normal) UA - NITRITE Negative (Normal) URINE UROBILINGN JEROME TIMED Normal mg/dL (Normal) UA - PROTEIN Negative mg/dL (Normal) UA - PH 7.5 (Normal) UA - BLOOD Negative (Normal) UA - SPECIFIC GRAVITY 1.020 (Normal) UA - KETONES Negative mg/dL (Normal) UA - BILIRUBIN Negative (Normal) UA - GLUCOSE Negative (Normal) 97-Gvy-086318:54 LDH (LD) (LACTATE DEHYDROGENASE) Comments: PATIENT NOT FASTINGPERFORMED BY: PetSitnStayClovis Baptist HospitalOyuywr3607 [facility] [id number] (22333) LDH 191 [iU]/L (Normal) Range: 119-226 33-Fzc-129792:54 RHEUMATOID FACTOR-QUANT (45195) Comments: PATIENT NOT FASTINGPERFORMED BY: [facility]Robert [facility] SomersetWmbofh1594 [facility] [id number] RA Latex Turbid. <10.0 {IU/mL} (Normal) Range: 0.0-13.9 52-Nrk-526227:54 C-Reactive Protein (73154) Comments: PATIENT NOT FASTINGPERFORMED BY: PetSitnStayRobert [facility] SomersetKtwpjw3552 [facility] [id number] C-Reactive Protein, Quant 6.1 mg/L (Abnormal) Range: 0.0-4.9 74-Ctg-981108:54 SED RATE ERYTHROCYTE (08555) Comments: PATIENT NOT FASTINGPERFORMED BY: [facility] Ohrocd2311 [facility] [id number] Sedimentation Rate-Westergren 16 mm/h (Normal) Range: 0-40 9-Zrj-105375:40 CPK Total, Creatine Kinase Comments: 48[facility] [address] [place], [address] CPK TOTAL 68 U/L (Normal) Range: 26-192 16-Ujm-081569:12 Culture, Urine Comments: [facility] [address] [place], [address] CUUR See Note (Normal) Comments: [...] $ <=20 S(NF) indicates non-formulary drug at [facility]. Approval by Infectious Disease Specialist required before non- formulary drugs may be ordered and/or dispensed. 73-Nhi-853809:12 Urinalysis, Routine (Dipstick) Comments: How was Urine Obtained? CLEAN [facility] [address] [place], [address] LEUK ESTERASE 500 /ul (Abnormal) OCCULT BLOOD-UR 50 /ul (Abnormal) NITRITE UR Positive (Abnormal) UROBILI Normal mg/dL (Normal) PROT DIPSTX 100 mg/dL (Abnormal) pH UR 6.0 (Normal) Range: 5.0 - 8.0 SP.GR. DIPSTX 1.025 (Normal) Range: 1.002-1.030 KETONE UR Negative mg/dL (Normal) BILIRUBIN URINE Negative mg/dL (Normal) GLUCOSE, UR Normal mg/dL (Normal) CLARITY Cloudy (Normal) COLOR Yellow (Normal) 11-Ogc-625165:15 CBC W/Diff, Automated Comments: [facility] [address] [place], [place], [address] Absolute Lymph 1.50 {X10_3/ul} (Normal) Range: 0.83-4.51 [...] 4.2-5.4 WBC 4.6 K/mm3 (Normal) Range: 4.4-11.0 49-Gro-235768:15 Comprehensive Metabolic Profil Comments: [facility] [address] [place], [place], [address] GAP 7 (Normal) Range: 5-15 CO2 28.0 mmol/L (Normal) Range: 21.0-32.0 CL 106 mmol/L (Normal) Range: 98-107 K 3.6 mmol/L (Normal) Range: 3.5-5.1 NA 141 mmol/L (Normal) Range: 136-145 T BILI 0.60 mg/dL (Normal) Range: 0.20-1.00 ALT 27 U/L (Normal) Range: 13-56 Comments: Please note revised ALT reference range ekzdkchsk63/28/2018. ALK P 68 U/L (Normal) Range: 45-117 [...] A.D.A. criteria.Please note revised GLUCOSE reference range kpfrvuhih32/02/2018. 8-Apv-174354:59 CPK Total, Creatine Kinase Comments: [facility] [address] [place], [place], [address] CPK TOTAL 55 U/L (Normal) Range: 26-192 9-Fgn-372362:59 GGTP 140 U/L (Abnormal) Comments: [facility] [address] [place], [id number] Range: 5-55 :50 CBC W/Diff, Automated Comments: [facility] [address] [place], [address] Absolute Lymph 1.40 {X10_3/ul} (Normal) Range: 0.83-4.51 [...] Range: 4.4-11.0 :50 Comprehensive Metabolic Profil Comments: [facility] [address] [place], [id number] GAP 7 (Normal) Range: 5-15 CO2 28.0 [...] <126 mg/dLsuggests IMPAIRED HOMEOSTASIS per A.D.A. criteria. 79-Odz-087326:00 CBC W/Diff, Automated Comments: [facility] [address] [facility]. [place], [place], [phone] ; Dr Fiore Absolute Lymph 1.66 {X10_3/ul} [...] 4.2-5.4 WBC 5.2 K/mm3 (Normal) Range: 4.4-11.0 44-Jwn-940382:00 Comprehensive Metabolic Profil Comments: [facility] [address] [place], [address] GAP 5 (Normal) Range: 5-15 CO2 27.0 [...] 7-18 GLU 106 mg/dL (Normal) Range: 70-110 72-Iby-518752:00 CBC W/Diff, Automated Comments: [facility] [address] [place], [place], [address] ; rheum Absolute Lymph 1.83 {X10_3/ul} (Normal) [...] 4.2-5.4 WBC 5.8 K/mm3 (Normal) Range: 4.4-11.0 15-Ngo-558189:00 Comprehensive Metabolic Profil Comments: [facility] [address] [place], [place], [address] ; Dr moreno GAP 7 (Normal) Range: [...] 7-18 GLU 98 mg/dL (Normal) Range: 70-110 28-Yqw-433923:39 CBC W/Diff, Automated Comments: [facility] [address] [place], [place], [address] SMEAR COMMENT SCANNED (Normal) Absolute Lymph 0.54 [...] 4.2-5.4 WBC 11.4 K/mm3 (Abnormal) Range: 4.4-11.0 81-Iao-398250:39 Comprehensive Metabolic Profil Comments: [facility] [address] [place], [place], [address] GAP 10 (Normal) Range: 5-15 CO2 23.0 [...] 126 mg/dLsuggests DIABETES MELLITUS per A.D.A. criteria. 51-Zre-894635:39 Lipase Comments: [facility] [address] [facility]. [place], [place], [address] LIPASE 86 U/L (Normal) Range: 73-393 23-Apr-20167:01 Pap IG (Image Comments: Source.............Cervix;EndocervixNo. of containers..01 CYTYC Thin Prep VialPATIENT NOT FASTINGPERFORMED BY: =G [facility] [address] [id number] BY: WB [facility] Guided) [address] [id number] Note: PAPSMR (Normal) Comments: The Pap smear [...] Prep VialPATIENT NOT FASTINGPERFORMED BY: =G [facility] [address] [id number] BY: WB [facility] (119[address]) (no STD rp [address] [id number] Information: [id number]; ov in 2 weeks testing) Age Gdln ACOG Testing AGE4 (Normal) Comments: <21 or >65 or no age provided :55 CBC W/Diff, Automated Comments: [facility] [address] [place], [place], [address] Absolute Lymph 1.88 {X10_3/ul} (Normal) Range: 0.83-4.51 [...] 4.2-5.4 WBC 5.7 K/mm3 (Normal) Range: 4.4-11.0 46-Yqt-381067:55 Comprehensive Metabolic Profil Comments: [facility] [address] [place], [place], [address] GAP 7 (Normal) Range: 5-15 CO2 28.0 [...] 7-18 GLU 84 mg/dL (Normal) Range: 70-110 65-Ior-351525:52 CBC W/Diff, Automated Comments: [facility] [address] [place], [address] Absolute Lymph 1.74 {X10_3/ul} (Normal) Range: 0.83-4.51 [...] Range: 4.4-11.0 :52 Comprehensive Metabolic Profil Comments: [facility] [address] [place], [phone] GAP 6 (Normal) Range: 5-15 CO2 29.0 [...] Range: 70-110 :52 Vitamin D,25 Hydroxy Comments: [facility] [address] [place], [phone] Vitamin D 25-OH 23.6 ng/mL (Normal) Comments: Vitamin D 25(OH) Status Range Deficiency <20 ng/mL (50nmol/L) Insuffciency 20 - 30 ng/mL (50 - 75 nmol/L) Sufficiency 30 - 100 ng/mL (75 - 250 nmol/L) Toxicity >100 ng/mL (>250 nmol/L) 28-Fqi-012530:34 URINE DELMAR CULTURE-JEROME COL Comments: PATIENT NOT FASTINGPERFORMED BY: HIREN [facility] [address] [place] [id number] Information: SRC:URC [id number] COUNT (26667) Result 1 MUG (Normal) Comments: Mixed urogenital floraGreater than 100,000 colony forming units per mL Urine Culture,Comprehensive Final report (Normal) 97-Nsh-321839:21 Urinalysis, Office (00954) UA - LEUKOCYTE ESTERASE Trace (Normal) UA - NITRITE Negative (Normal) URINE UROBILINGN JEROME TIMED Normal mg/dL (Normal) UA - PROTEIN Negative mg/dL (Normal) UA - PH 6.0 (Normal) Comments: 5.5 UA - BLOOD Negative (Normal) UA - SPECIFIC GRAVITY 1.030 (Abnormal) UA - KETONES Negative mg/dL (Normal) UA - BILIRUBIN Negative (Normal) UA - GLUCOSE Negative (Normal) 94-Lat-192981:10 CBC W/Diff, Automated Comments: [facility] [address] [place], [place], [address] Absolute Lymph 1.44 {X10_3/ul} (Normal) Range: 0.83-4.51 [...] 4.2-5.4 WBC 4.3 K/mm3 (Abnormal) Range: 4.4-11.0 37-Vzb-375473:10 Comprehensive Metabolic Profil Comments: [facility] [address] [place], [address] GAP 3 (Abnormal) Range: 5-15 CO2 28.0 [...] 126 mg/dLsuggests DIABETES MELLITUS per A.D.A. criteria. 94-Vpn-785431:10 Vitamin D,25 Hydroxy Comments: [facility] [address] [place], [place], [address] Vitamin D 25-OH 20.8 ng/mL (Normal) Comments: Vitamin D 25(OH) Status Range Deficiency <20 ng/mL (50nmol/L) Insuffciency 20 - 30 ng/mL (50 - 75 nmol/L) Sufficiency 30 - 100 ng/mL (75 - 250 nmol/L) Toxicity >100 ng/mL (>250 nmol/L) 81-Zcv-443450:16 CBC W/Diff, Automated Comments: [facility] [address] [place], [place], [phone] ; ordered by another doctor Absolute Lymph [...] 4.2-5.4 WBC 5.1 K/mm3 (Normal) Range: 4.4-11.0 74-Zwk-988316:16 Comprehensive Metabolic Profil Comments: [facility] [address] [place], [place], [address] ; ordered by another doctor GAP 7 [...] 7-18 GLU 87 mg/dL (Normal) Range: 70-110 18-Edm-959359:16 Vitamin D,25 Hydroxy Comments: [facility] [address] [place], [address] ; ordered by another doctor Vitamin D 25-OH 33.2 ng/mL (Normal) Comments: Vitamin D 25(OH) Status Range Deficiency <20 ng/mL (50nmol/L) Insuffciency 20 - 30 ng/mL (50 - 75 nmol/L) Sufficiency 30 - 100 ng/mL (75 - 250 nmol/L) Toxicity >100 ng/mL (>250 nmol/L) 5-Fva-355594:22 CBC W/Diff, Automated Comments: [facility] [address] [place], [id number] Absolute Lymph 1.19 {X10_3/ul} (Normal) Range: 0.83-4.51 [...] 4.2-5.4 WBC 4.6 K/mm3 (Normal) Range: 4.4-11.0 0-Rcb-348763:22 Comprehensive Metabolic Profil Comments: [facility] [address] [place], [place], [id number] GAP 3 (Abnormal) Range: 5-15 CO2 29.0 [...] 7-18 GLU 100 mg/dL (Normal) Range: 70-110 7-Fzo-444056:22 Lipid Profile Comments: [facility] [address] [place], [place], [id number] VLDL 16 mg/dL (Normal) Range: 5-40 LDL [...] 200-240 mg/dL Borderline >240 mg/dL High Risk 9-Wtj-315987:22 Thyroid Stim Hormone (TSH) Comments: [facility] [address] [place] [address], [address] TSH 1.39 {uIU/mL} (Normal) Range: 0.358-3.74 15-Faj-073595:30 CBC W/Diff, Automated Comments: Comments: IVT TO DRAW OFF [facility] pt arrived? YTest performed at:[facility] [address] [place] [address] Absolute Lymph 1.56 {X10_3/ul} (Normal) [...] 4.2-5.4 WBC 4.7 K/mm3 (Normal) Range: 4.4-11.0 14-Mbf-985263:30 Comprehensive Metabolic Profil Comments: Has pt arrived? YComments: IVT TO DRAW FROM PORTTest performed at:[facility] [address] [place], [place] [id number] GAP 8 (Normal) Range: 5-15 CO2 27.0 [...] Comments: Please note revised CREATININE reference range vkjkmixmy01/22/2015. BUN 21 mg/dL (Abnormal) Range: 7-18 GLU 133 mg/dL (Abnormal) Range: 70-110 Comments: Fasting Glucose result greater than or equal to 126 mg/dLsuggests DIABETES MELLITUS per A.D.A. criteria. 28-Syk-623996:30 Vitamin D,25 Hydroxy Comments: Has pt arrived? YTest performed at:[facility] [address] [place] [address] Vitamin D 25-OH 22.5 ng/mL (Normal) Comments: Vitamin D 25(OH) Status Range Deficiency <20 ng/mL (50nmol/L) Insuffciency 20 - 30 ng/mL (50 - 75 nmol/L) Sufficiency 30 - 100 ng/mL (75 - 250 nmol/L) Toxicity >100 ng/mL (>250 nmol/L) 85-Dyg-312515:42 D-Dimer Quantitative (DVT/PE) Comments: Test performed at:[facility] [address] [facility] [address] [place] [address] D-DIMER QUANT 0.54 {FEU/ug/m} (Abnormal) Range: 0.27-0.49 Comments: D-Dimer ELEVATED (>0.49): Additional studies and clinicalassessments are indicated to conclude diagnosis of:Deep Vein Thrombosis (DVT) or Pulmonary Embolism (PE)CRITICAL VALUE CALLED TO GLICBENQX61/2 02/02 Ashish Griffin.RESULTS READ BACK BY SAME . 00-Rhu-582871:39 Lipase Comments: Test performed at:[facility] [address] [place] [address] LIPASE 96 U/L (Normal) Range: 70-290 52-Nwb-087969:22 BNP,B-Type NATRIURETIC PEPTIDE Comments: Test performed at:[facility] [address] [place] [address] B-TYPE FATOUMATA PEP 124.8 pg/mL (Abnormal) Range: 0-100 11-Kqe-483245:22 CBC W/Diff, Automated Comments: Test performed at:[facility] [address] [place] [address] Absolute Lymph 2.09 {X10_3/ul} (Normal) Range: [...] 4.2-5.4 WBC 5.9 K/mm3 (Normal) Range: 4.4-11.0 41-Jkk-283684:22 CK-MB Quantitative and Index Comments: Test performed at:[facility] [address] [place] [address] CPKMB 0.7 ng/mL (Normal) Range: 0.0-5.0 Comments: CK-MB and RI Interpretation MB Relative Index Non-AMI <or= 5 NA Indeterminate > 5 <or= 4 AMI > 5 > 4 CPK TOTAL 97 U/L (Normal) Range: 26-192 05-Qon-565297:22 Comprehensive Metabolic Profil Comments: 'TROP' Serial specimen #1, #2, #3, or #4: 1Test performed at:[facility] [address] [place], [place] [address], [place] [address] GAP 9 (Normal) Range: 5-15 [...] 126 mg/dLsuggests DIABETES MELLITUS per A.D.A. criteria. 54-Uhv-284211:22 Troponin-I Comments: 'TROP' Serial specimen #1, #2, #3, or #4: 1Test performed at:[facility] [address] [place] [address] TROPONIN-I < 0.02 ng/mL (Normal) Comments: TROPONIN-I EXPECTED VALUES <0.05 NEGATIVE 0.06 - 0.59 AT RISK OF SC > OR = 0.60 SUGGEST SC 43-Ogs-328052:20 Urinalysis, Complete Comments: Order Date: 11/15/14How was Urine Obtained? CLEAN CATCHTest performed at:[facility] [address] [place] [address] AMORPHOUS 1+ PHOS (Normal) MUCUS, [...] CLARITY Sl. Cloudy (Normal) COLOR Yellow (Normal) 77-Duv-852129:00 CBC W/Diff, Automated Comments: Comments: IVT TO DRAWTest performed at:[facility] [address] [place] [address] Absolute Lymph 1.62 {X10_3/ul} (Normal) [...] 4.2-5.4 WBC 5.8 K/mm3 (Normal) Range: 4.4-11.0 44-Ghh-476018:00 Comprehensive Metabolic Profil Comments: Comments: IVT TO DRAWTest performed at:[facility] [address] [place], [place] [address] GAP 4 (Abnormal) Range: 5-15 CO2 27.0 [...] 126 mg/dLsuggests DIABETES MELLITUS per A.D.A. criteria. 90-Oof-006633:25 CBC W/Diff, Automated Comments: Test performed at:[facility] [address] [facility] [place], [place] [address] Absolute Lymph 1.28 {X10_3/ul} (Normal) Range: 0.83-4.51 [...] :25 Comprehensive Metabolic Profil Comments: Test performed at:[facility] [address] [facility] [place], [place] [id number] GAP 4 (Abnormal) Range: 5-15 CO2 29.0 [...] 7-18 GLU 100 mg/dL (Normal) Range: 70-110 52-Utz-801609:21 URINE DELMAR CULTURE-JEROME COL Comments: PATIENT NOT FASTINGPERFORMED BY: [facility]CoRobert [facility] SomersetWndgkn4366 [facility] [id number] Information: SRC:UR [id number] COUNT (93036) Result 1 MUG (Normal) Comments: Mixed urogenital flora1,000 Colonies/mL Urine Culture,Comprehensive Final report (Normal) 74-Dta-103816:35 Urinalysis, Office (01756) UA - LEUKOCYTE ESTERASE Trace (Normal) UA - NITRITE Negative (Normal) URINE UROBILINGN JEROME TIMED Normal mg/dL (Normal) UA - PROTEIN Negative mg/dL (Normal) UA - PH 6.0 (Normal) Comments: 5.5 UA - BLOOD Negative (Normal) UA - SPECIFIC GRAVITY 1.030 (Abnormal) UA - KETONES Negative mg/dL (Normal) UA - BILIRUBIN Negative (Normal) UA - GLUCOSE Negative (Normal) 9-Wca-014691:15 CBCD ALC 1.51 {X10_3/ul} (Normal) Range: 0.83-4.51 [...] 4.2-5.4 WBC 5.7 K/mm3 (Normal) Range: 4.4-11.0 6-Zey-912969:15 CMP Comments: Comments: FAX RESULTS TO DR. [...] or Folic Acid Supplements? N Range: 3.1-17.5 8-Xve-225109:01 Urinalysis, Office (49963) UA - LEUKOCYTE ESTERASE Negative (Normal) UA - NITRITE Negative (Normal) URINE UROBILINGN JEROME TIMED Normal mg/dL (Normal) UA - PROTEIN Negative mg/dL (Normal) UA - PH 5 (Abnormal) UA - BLOOD Negative (Normal) UA - SPECIFIC GRAVITY 1.025 (Normal) UA - KETONES Negative mg/dL (Normal) UA - BILIRUBIN Negative (Normal) UA - GLUCOSE Negative (Normal) 5-Wgm-546765:52 CBCD ALC 1.26 {X10_3/ul} (Normal) Range: 0.83-4.51 [...] 4.2-5.4 WBC 4.2 K/mm3 (Abnormal) Range: 4.4-11.0 4-Vin-859384:52 CMP Comments: SED RATE ADD ON BLOOD [...] 126 mg/dLsuggests DIABETES MELLITUS per A.D.A. criteria. 1-Nah-870243:52 SED tSEDRATE 32 mm/h (Abnormal) Range: 0-30 :21 iPBE 0 mmol/L (Normal) :21 iPCO2 40.0 {mmHg} (Normal) Range: 35-45 :21 iPH 7.41 (Normal) Range: 7.35-7.45 :21 iPO2 83 {mmHG} (Normal) Range: 75-100 :21 iTCO2 26 mmol/L (Normal) :21 iTHCO3 25 mmol/L (Normal) Range: 22-26 Comments: Site = L BrachialAllens Test = POSDevice = Room AirResults To = OTHERTime Given = 915 :21 oTB4UVF 96 % (Normal) Range: 95-99 :21 iTYPE ART (Normal) 5-Ilg-167982:37 Rapid Flu (61656 x 2) Comments: neg Influenza A Ag negative a and b (Normal) 5-Hvq-045117:59 Influenza A&B Viral Comments: neg; PATIENT NOT FASTINGPERFORMED BY: [facility]CoRobert [facility] SomersetVzduho8615 [facility] [id number] Information: SRC:NOS [id number] Culture (98023) Viral Culture,Rapid,Influenza FLUABN (Normal) Comments: Negative:No Influenza A or B detected. B12 274 pg/mL (Normal) Comments: COMMENTS: FAX RESULTS TO AISLINN SCOTT DRAW :05 Range: 211-911 Comments: Effective 201221-Sep-20126-Dwt-951645:05 CBCD Comments: COMMENTS: FAX RESULTS TO DR. [...] 4.2-5.4 WBC 5.1 {k/mm3} (Normal) Range: 4.4-11.0 6-Yeg-501751:05 CMP Comments: COMMENTS: FAX RESULTS TO DR. [...] 7-18 GLU 87 mg/dL (Normal) Range: 70-110 7-Tzn-596938:05 FOL 22.20 ng/mL (Abnormal) Comments: COMMENTS: FAX RESULTS TO AISLINN BOYKIN [facility] DRAW Range: 3.1-17.5 53-Phy-142361:08 CALCIFEDIOL (59131) Comments: PATIENT NOT FASTINGPERFORMED BY: [facility]CoRobert [facility] SomersetIgmhpn8224 [facility] [id number] Information: [id number] Vitamin D, 25-Hydroxy 47.6 ng/mL (Normal) Range: 30.0-100.0 Comments: Vitamin D deficiency has been defined by the [place] ofMedicine and an Endocrine Society practice guideline as alevel of serum 25-OH vitamin D less than 20 ng/mL (1,2).The Endocrine Society went on to further define vitamin Dinsufficiency as a level between 21 and 29 ng/mL (2).1. IOM ([place] of Medicine). 2010. Dietary reference intakes for calcium and D. [place]: The National Academies Press.2. Stacia MF, Mago [place], Meliza MAGDALENO, et al. Evaluation, treatment, and prevention of vitamin D deficiency: an Endocrine Society clinical practice guideline. JCEM. 2010; 96(7):1911-30. 5-Dbi-634200:18 BILAT SCRN DIGITAL & CAD Radiology Report [...] Morales M.D.May 04 012 at 2:58:08 PM [id number] Signed GP/GP If you are the referring physician and would like to consult with theradiologist who provided this interpretation, please contact Valdo bettencourt M.D. at [phone]. If this radiologist is unavailable, youwill be directed to another radiologist to assist. If you are a patient with a question regarding this report, pleasecontactyour refe rring physician directly. Professional Interpretation Provided By: [employer], Phone , These documents contain legally protected [...] D deficiency has been defined by the [place] ofMedicine and an Endocrine Society practice guideline as alevel of serum 25-OH vitamin D less than 20 ng/mL (1,2).The Endocrine Society went on to further define vitamin Dinsufficiency as a level between 21 and 29 ng/mL (2).1. IOM ([place] of Medicine). 2010. Dietary reference intakes for calcium and D. [place]: The National Academies Press.2. Stacia MF, Mago [place], Meliza MAGDALENO, et al. Evaluation, treatment, and prevention of vitamin D deficiency: an Endocrine Society clinical practice guideline. JCEM. 2010; 96(7): 1911-30.Performed at: [address] [id number] Director: Meeta Hickman MD, Phone: [phone] 77-Sgj-814177:44 LIPID VLDL 14 mg/dL (Normal) Range: 5-40 [...] 200-240 mg/dL Borderline >240 mg/dL High Risk 20-Uxh-776956:35 Urinalysis, Office (94047) UA - BILIRUBIN Small (Normal) UA - BLOOD Negative (Normal) UA - GLUCOSE Negative (Normal) UA - KETONES Small mg/dL (Normal) Comments: trace UA - LEUKOCYTE ESTERASE Negative (Normal) UA - NITRITE Negative (Normal) UA - PH 5.0 (Normal) UA - PROTEIN Trace mg/dL (Normal) UA - SPECIFIC GRAVITY 1.025 (Normal) URINE UROBILINGN JEROME TIMED Normal mg/dL (Normal) 65-Nhp-838719:07 CBC with manual diff Comments: PATIENT NOT FASTINGPERFORMED BY: [facility]CoRobert [facility] SomersetWjikss9115 [facility] [id number] Information: [id number] (51542) Immature Grans (Abs) 0.0 {x10E3/uL} (Normal) Range: [...] 3.80-5.10 WBC 5.6 {x10E3/uL} (Normal) Range: 4.0-10.5 79-Kfi-874223:07 Metabolic Panel, Comprehensive Comments: PATIENT NOT FASTINGPERFORMED BY: [facility] N[address]ogh[address] [facility] [id number] (48344) Alkaline Phosphatase, S 50 [iU]/L (Normal) Range: [...] Glucose, Serum 97 mg/dL (Normal) Range: 65-99 35-Mok-63353:00 SPINE, CERVICAL (ROUTINE) Radiology See Note Comments: [...] n 06/18/101755 Sign by: [place] 22-Lxa-923172:49 RENAL CO2 28.0 mmol/L (Normal) Range: 21.0-32.0 [...] 0.6-1.0 GLU 102 mg/dL (Normal) Range: 70-110 94-Zbk-79534:00 CERV SPINE,MIN 4 VIEWS Radiology Report See [...] on 06/09/10 0855 Sign by: Alena Worley 30-Euj-581458:55 CALCIFEDIOL (19487) Comments: PATIENT NOT FASTINGPERFORMED BY: LabCoRobert [facility] Johnson [facility] Hospital SomersetHirqsw1575 [facility] [id number] Information: [id number] Vitamin D, 25-Hydroxy 36.1 ng/mL (Normal) Range: 32.0-100.0 Comments: Recent studies consider the lower limit of 32.0 ng/mL to be athreshold for optimal health.Froylan BHAKTA. J Nutr. 2004;135(2):317-22. 39-Dxa-421474:53 CBCD ABSOLUTE NEUT 3.6 3/uL (Normal) Range: [...] (Normal) Range: 1.2-7.6 Comments: Performed at: - [address] [id number] Director: Meeta Hickman MD 13-Syf-045856:33 CBCD ABSOLUTE NEUT 2.6 3/uL (Normal) Range: [...] 11.6-14.6 WBC 4.9 K/mm3 (Normal) Range: 4.4-11.0 62-Odz-733858:33 COMP METABOLIC Comments: LIVER TEST TO CL [...] 6.4-8.2 GLU 95 mg/dL (Normal) Range: 70-110 09-Mdz-061593:33 CPK TOTAL 37 U/L (Normal) Comments: LIVER TEST TO Range: 21-215 21-Cjz-977395:33 D BILI 0.12 mg/dL (Normal) Comments: LIVER TEST TO Range: 0.00-0.30 73-Qct-031635:46 COMPLETE UA BACTERIA RARE {/hpf} (Normal) MUCUS, [...] CK-BB 0 % (Normal) Comments: Performed at: [address] [id number] Director: Meeta Hickman MD CK-MB 0 % (Normal) Range: 0-3 CK-MM 100 % (Normal) Range: 97-100 Macro I 0 % (Normal) Macro II 0 % (Normal) CPK,TOTAL,SERUM 59 U/L (Normal) Range: 24-173 :46 PTH,Intact 57 pg/mL (Normal) Range: 14-72 :46 TSH 1.06 {uIU/mL} (Normal) Range: 0.358-3.74 :29 ALDOLASE 2030 9.1 U/L (Abnormal) Range: 1.2-7.6 Comments: Performed at: [address] [id number] Director: Saul Cuadra MD :29 COMP METABOLIC [...] TOTAL 356 U/L (Abnormal) Range: 21-215 :29 [facility] LAB TEST . (Normal) Comments: MYOGLOBIN, SERUM 121 H ng/mL 25 - 58 TESTING PERFORMED AT [facility]. ORIGINAL REPORT ONFILE IN LAB [...] (Abnormal) Range: 1.2-7.6 Comments: Performed at: - [address] [id number] Director: Saul Cuadra MD :03 CKMB CKRI [...] 4.2-5.4 WBC 4.1 K/mm3 (Abnormal) Range: 4.4-11.0 73-Mfk-601003:18 COMP METABOLIC CL 104 mmol/L (Normal) Range: [...] 0.6-1.0 GLU 109 mg/dL (Normal) Range: 70-110 37-Cah-276594:10 Rapid Strep Test, Office (72101) Rapid Strep Test, Office Negative (Normal) 2-Sxa-323138:56 CALCIFEDIOL (77187) Comments: PATIENT NOT FASTINGPERFORMED BY: HIREN [facility] [address] [place] [id number] Information: [id number] Vitamin D, 25-Hydroxy 19.7 ng/mL (Abnormal) Range: 32.0-100.0 Comments: Recent studies consider the lower limit of 32.0 ng/mL to be athreshold for optimal health.Froylan BHAKTA. J Nutr. 2004;135(2):317-22. 50-Kqy-597996:10 ABDOMEN/PELVIS WITH CONTRAST Radiology Report See Note (Normal) Comments: Exam Number: [id number] CLINICAL:58 year old woman with abnormal blood [...] surgically absent. Reported By: LOREN MALCOLM M.D. 43-Zlk-880461:15 TRANSVAGINAL NON-PREG US () Radiology Report See Note (Normal) Comments: Exam Number: [id number] CLINICAL:58-year-old female post menopausal with positive beta-hCG [...] weeks recommended. Reported By: WILLIE BOLIVAR M.D. 65-Qut-172712:55 PELVIC (NON-PREG) () Radiology Report See Note (Normal) Comments: Exam Number: [id number] CLINICAL:58-year-old female post menopausal with positive beta-hCG [...] (Normal) Comments: Result: Negative :17 DELMAR CULTURE-OTHER (99364) Comments: PATIENT NOT FASTINGClinical Information: SRC:THRT ADD [id number] PERFORMED BY: [facility]6370 [facility] [id number] Result 1 RRF (Normal) Comments: Routine respiratory gabriella Upper Respiratory Culture Final report (Normal) :03 LQD PAP [id number] Comments: CYTOLOGY INFORMATION:- CLINICAL INFORMATION: - DATE LMP/MENOPAUSE: 1998 LMP- COLLECTION VIAL: Thin Prep Vial- LAMP SHADE SEWER SOURCE: CERVICAL/ENDOCERVICAL- COLLECTION TECHNIQUE: BRUSH/SPATULA ADEQ Comment (Normal) Comments: Satisfactory for evaluation. Endocervical and/or squamous metaplasticcells (endocervical component) are present. COMM . (Normal) DIAGN Comment (Normal) Comments: NEGATIVE FOR INTRAEPITHELIAL LESION AND MALIGNANCY. HPV RFLX Comment (Normal) Comments: The HPV DNA reflex criteria were not met with this specimenresult therefore, no HPV testing was performed. .Performed At: [address] [id number] PAPSMR Comment (Normal) Comments: The Pap smear is a screening test designed to aid in thedetection of premalignant and malignant conditions of theuterine cervix. It is not a diagnostic procedure andshould not be used as the sole means of detecting cervicalcancer. Both false-positive and false-negative reports dooccur. . PERFORM Comment (Normal) Comments: Ashwin Blanc, Financial Sales Manager ([facility]) 03-Phg-181547:52 Microscopic Examination Comments: PATIENT WAS FASTINGPERFORMED BY: English HelperFresenius Medical [facility]6370 [facility] [id number] Bacteria Few (Normal) Epithelial Cells (non renal) None seen {/hpf} (Normal) Range: 0 - 10 RBC None seen {/hpf} (Normal) Range: 0 - 3 WBC 0-5 {/hpf} (Normal) Range: 0 - 5 88-Tij-673696:52 MICROALBUMIN: CREATININE RATIO Comments: PATIENT WAS FASTINGPERFORMED BY: English HelperChildren'S Mercy NorthlandEpfgpt6486 [facility] [id number] (64263) AND (73029) Creatinine, Urine 353.6 mg/dL (Abnormal) Range: 15.0-278.0 Microalb/Creat Ratio 5.4 {ug/mg_creat} (Normal) Range: 0.0-30.0 Microalbumin, Urine 19.2 ug/mL (Abnormal) Range: 0.0-17.0 05-Tce-861366:52 URINALYSIS (84146) Comments: PATIENT WAS FASTINGPERFORMED BY: English HelperFresenius [facility]6370 [facility] [id number] Appearance Clear (Normal) Bilirubin Negative (Normal) Glucose Negative (Normal) Ketones Negative (Normal) Microscopic Examination See below: (Normal) Nitrite, Urine Negative (Normal) Occult Blood Negative (Normal) pH 8.0 (Abnormal) Range: 5.0-7.5 Protein 1+ (Abnormal) Specific Sondheimer 1.010 (Normal) Range: 1.005-1.030 Urine-Color Yellow (Normal) Urobilinogen,Semi-Qn 0.2 mg/dL (Normal) Range: 0.0-1.9 WBC Esterase Negative (Normal) 77-Vta-163273:52 Metabolic Panel, Comprehensive Comments: PATIENT WAS FASTINGPERFORMED BY: English HelperGregory V[place] 4480370 [facility] [id number] (70596) A/G Ratio 1.6 (Normal) Range: 1.1-2.5 Albumin, [...] Sodium, Serum 144 mmol/L (Normal) Range: 135-145 20-Gii-294007:52 Lipid Panel (61039) Comments: PATIENT WAS FASTINGPERFORMED BY: LabCoRobert [facility] SomersetMxfytr1377 [facility] [id number] Cholesterol, Total 237 mg/dL (Abnormal) Range: 100-199 [...] Cholesterol García 19 mg/dL (Normal) Range: 5-40 08-Fqs-871730:52 CBC with manual diff (72050) Comments: PATIENT WAS FASTINGClinical Information: ADD DARW FEE 228894 ADD J 61966 PERFORMED BY: [facility] Vxwzbn1136 [facility] [id number] Baso (Absolute) 0.1 {x10E3/uL} (Normal) Range: 0.0-0.2 [...] Well woman exam : *Well Female Maintenance ([facility]) Indication: Well woman exam Well woman exam : Pap/Pelvic/Bimanual/Rectal/Breast Exam was done. Indication: Well woman exam Dry eye syndrome : Follow up if no improvement or if symptoms worsen Indication: Dry eye syndrome Facial pressure : Eprescribed prescriptions (G8553) Indication: Facial pressure Insomnia : Follow up in 3 months with [facility] Indication: Insomnia Vitamin D deficiency, unspecified [...] pain : Follow up on Wednesday with [facility] Indication: Back pain Carnitine deficiency [...] UP IN 3 MONTHS with [facility] Indication: Unspecified inflammatory polyarthropathy Vitamin D deficiency, [...] DISORDER (311.0) Planned Observations Vitamin B-12 (cyanocobalamin) (90431)Indication: B12 deficiency On: 03-Aek-418450:55 Request CPK TOTAL & ISOENZYMES (60385)Indication: Pain in unspecified joint On: 87-Lgf-756101:03 Request URINE DELMAR CULTURE-IDENTIFICATN (64528)Indication: Dysuria On: 06-Siv-936436:16 Request URINALYSIS (69610)Indication: Dysuria On: 28-Mfm-412160:16 Request CALCIFEDIOL (23792)Indication: Postmenopausal (Renamed from Postmenopausal status) On: 5-Ekq-767790:50 Request HPV automatic (68481)Indication: Screening for HPV (human papillomavirus) (Renamed from Encounter for screening for human papillomavirus (HPV)) On: 6-Ahu-888506:49 Request Metabolic Panel, Comprehensive (29204)Indication: DM (diabetes mellitus screen) On: 94-Sau-637019:24 Request TSH (18443)Indication: Screening for deficiency anemia On: :23 Request CBC, Platelets & Auto Diff (63208)Indication: Screening for deficiency anemia On: :23 Request Lipid Panel (57457)Indication: Screening for hyperlipidemia On: :23 Request VITAMIN B12 AND FOLATES (96833)Indication: Leg pain On: 4-Gfu-785795:27 Request HEPATIC FUNCTION PANEL (92962)Indication: Hypercholesteremia On: 97-Dli-222098:15 Request CBC with manual diff (51260)Indication: Carnitine deficiency On: 96-Hvq-335974:10 Request Metabolic Panel, Comprehensive (56446)Indication: Arthritis On: 55-Rih-285016:10 Request LIPID PANEL (47914)Indication: Hypercholesteremia On: 04-Ift-681658:10 Request CBC (AUTO) (41738)Indication: FATIGUE On: :24 Request METABOLIC PANEL, COMPREHENSIVE (26225)Indication: FATIGUE On: 6-Pyt-112550:24 Request Folate (97776)Indication: FATIGUE On: 8-Knm-439084:24 Request VITAMIN B-12 (CYANOCOBALAMIN) (48070)Indication: FATIGUE On: 7-Ymg-906915:24 Request TSH (10228)Indication: DEPRESSIVE DISORDER (311.0) On: 84-Kzh-398561:16 Request CBC with manual diff (36981)Indication: Myopathy NOS On: 6-Pgi-361650:03 Request Metabolic Panel, Comprehensive (74671)Indication: DEPRESSIVE DISORDER (311.0) On: 8-Yxk-471406:03 Request Lipid Panel (62047)Indication: Hypercholesteremia On: 9-Dvz-214738:03 Request CALCIFEDIOL (92187)Indication: Vitamin D deficiency, unspecified On: 7-Zay-409052:02 Request Renal function Panel (55669)Indication: Neck pain On: 87-Htz-048417:14 Request CALCIFEDIOL (59965)Indication: Vitamin D deficiency, unspecified On: 26-Jun-20099:26 Request Comments: draw Beginning September 2009 TEST - SERUM QUANTITATIVE (HCG) (37238)Indication: Abnormal blood chemistry On: 27-Bct-602128:06 Request PREGNACY TEST, URINE (54620)Indication: Abnormal blood chemistry On: :06 Request Lipid Panel (56219)Indication: Hypercholesteremia On: 63-Noq-662370:16 Request Comments: fasting Rapid Strep Test, Office (65659)Indication: Pharyngitis, acute On: 06-Wjt-414265:04 Request Thin prep Pap (43740)Indication: Well woman exam On: 83-Mfg-483158:09 Request FECAL OCCULT HGB ASSAY- tubes sent home (14011)Indication: Well woman exam On: 08-Dph-867371:54 Request OCCULT BLOOD FECES SCREEN- card done in office (12722)Indication: Well woman exam On: 59-Afa-345989:54 Request CPK TOTAL & ISOENZYMES (72934)Indication: Myalgia and myositis On: 88-Zyd-165855:37 Request CALCIFEDIOL (91274)Indication: Leg cramps On: 47-Fxb-200794:36 Request VITAMIN B-12 (CYANOCOBALAMIN) (07313)Indication: Pain in unspecified joint On: 70-Mgi-639136:35 Request PARATHORMONE (27956)Indication: Myalgia and myositis On: 90-Uox-277005:35 Request RHEUMATOID FACTOR-QUANT ([id number])Indication: Pain in unspecified joint On: 29-Wdw-[id number]:15 Request SED RATE ERYTHROCYTE ([id number])Indication: Pain in unspecified joint On: 70-Sno-905841:15 Request Planned Encounters Medical; 1 Month FU - On: 02-May-2018 14:15 [facility] Aislinn Boykin CNP, CNP, Mary E Planned Procedures Aerosol Treatment ([id number])By: Teddy On: 28-Mar-2018 Intent Aislinn BINGHAM CNP, Mary E Flu Vaccine (Quadrivalent) [id number]: On: 28-Mar-2018 Intent Aislinn Boykin CNP, CNP, Mary E Comments: Lot #[id number]-L dltd, IMDose prefilled syringegiven by: VENANCIO Noriega [...] Intent E Aislinn Boykin CNP Ear Irrigation ([id number])By: Teddy On: 18-Dec-2016 Intent Aislinn BINGHAM CNP, Mary E Wax CurettesBy: Alidakayli Aislinn BINGHAM On: 18-Dec-2016 Intent Aislinn Boykin CNP Aerosol Treatment ([id number])By: eTddy On: 18-Dec-2016 Intent Aislinn BINGHAM CNP, Mary E Wax CurettesBy: Pamela Bates On: 01-Dec-2016 Intent Ear Irrigation ([id number])By: Paulo On: 01-Dec-2016 Marvin Santiago Comments: Ear Irrigation performed on:rightAmount/color removed cerumen:small OUtcome:clear and tolerated PNEUM VAC ADLT/IMUMNOSPR, SBC/INTRM On: 19-May-2016 Intent ([id number])By: Alidakayli Aislinn BINGHAM CNP, Mary E Flu Vaccine (Quadrivalent) [id number]: On: 12-May-2016 Intent Aislinn Boykin CNP, CNP, Mary E Comments: FLUlot: [id number]:11/04site:Lt deltoidroute:IMdose:.5mlDEMICK, MA DEXA SCAN AXIAL SKELETON ([id number])By: On: 22-Apr-2016 Intent Teddy BINGHAM Aislinn Aragon Swethanylakayli BINGHAM Divya Pap Smear, Medicare ([id number])By: Teddy On: 22-Apr-2016 Intent ZACHERYAislinn Swethakathi ZACHERY Aislinn Aragon FLU VACCINE H1N1 ([id number])By: Teddy On: 06-Mar-2015 Intent Aislinn BINGHAM Swethakathi ZACHERY Divya Comments: Lot:[id number]:12/19/15Dose:0.5mLRoute:IMSite:L DltdGiven By:MIKE signed ADMINISTRATION OF H1N1 INFLUENZA On: 06-Mar-2015 Intent VIRUS VACCINE ([id number])By: Teddy BINGHAM DivyaMargo Boykin CNP Divya DEXA SCAN AXIAL SKELETON ([id number])By: On: 06-Mar-2015 Intent Teddy BINGHAM DivyaMargo Boykin CNP Divya MAMMOGRAM, SCREENING, BOTH BREAST On: 06-Mar-2015 Intent ([id number])By: Teddy BINGHAM DivyaMarog Boykin CNP Divya ANNUAL DEPRESSION SCREENING, 15 On: 06-Mar-2015 Intent MINUTES (G0444)By: Teddy BINGHAM DivyaMargo Boykin CNP Divya Venous Doppler - LeftBy: Teddy BINGHAM, On: 29-Aug-2014 Intent Divya Swethanylakayli BINGHAM Aislinn Aragon MARY ALICE (Ankle Brachial Index) On: 29-Aug-2014 Intent ([id number])By: Aislinn Boykin CNP, CNP Divya SPECIMEN HANDLING/TRANSPORT On: 16-May-2014 Intent ([id number])By: Teddy BINGHAM DivyaMargo Boykin CNP Divya Flu Vaccine (Quadrivalent) [id number]: On: 19-Apr-2014 Intent Teddy BINGHAM Divya Cinylakayli BINGHAM Divya Comments: lot:[id number]:dose:0.5mLRoute: IMlocation: L armgiven by: villaith ADMINISTRATION OF INFLUENZA VIRUS On: 19-Apr-2014 Intent VACCINE ([id number])By: Mckenzie Zhao Radiology - Lumbar SpineBy: Teddy On: 29-Dec-2013 Intent Aislinn BINGHAM CNP, Aislinn Aragon Toradol Injection, 30 mg ([id number])By: On: 29-Dec-2013 Intent Ciesa ZACHERY, Divya Ciesa ZACHERY, Aislinn Aragon Ear Irrigation ([id number])By: Eben On: 19-Apr-2013 Intent Mayela LONDONO Comments: Ear Irrigation performed on:bilateralAmount/color removed cerumen:small amount of darkl brown waxOUtcome:clearUsed wax curettes FLU VAC, SPLIT, >3 YEARS, INTRAMUSC On: 19-Apr-2013 Intent ([id number])By: Pamela Crooks LPN Comments: Lot:[id number]:6.14Amt:0.5mlRoute:IMSite: L DltdGiven By: Alejandra MULLEN signed IMMUNIZ ADMNIN, 1 VAC, SNGL/COMBO On: 19-Apr-2013 Intent ([id number])By: Pamela Crooks LPN Wax CurettesBy: Mayela Treadwell DO On: 19-Apr-2013 Intent Eprescribed prescriptions ([id number])By: On: 19-Apr-2013 Intent Pamela Crooks LPN B 12 Injection, 1000 mcg (J3420)By: On: 28-Dec-2012 Intent Kassie Tellez LPN B 12 Injection, 1000 mcg (J3420)By: On: 29-Nov-2012 Intent Pattie Malagon LPN Comments: Lot: [id number]: Isk79Ijx: 1000mcg/1mlRoute: IMSite: L deltoidGiven by: CHRISTOPHE Allen B 12 Injection, 1000 mcg (J3420)By: On: 26-Oct-2012 Intent Jina Gomes LPN Comments: Lot #[id number]/14Site-right deltoidDose-1 mlgiven by: Rishabh Gomes LPN B 12 Injection, 1000 mcg (J3420)By: On: 11-Oct-2012 Intent Deedee Cantrell Comments: lot: [id number]:06/03site/route: L deltoid/IMamt: 1ccVIS signed when applicableANDIE Mark B 12 Injection, 1000 mcg (J3420)By: On: 05-Oct-2012 Intent Teddy BINGHAM Aislinn Leonard CNP B 12 Injection, 1000 mcg (J3420)By: On: 27-Sep-2012 Intent Valencia Renee Comments: Lot:[id number]:06/03Dose:1mlRoute:IMSite:l armGiven By:BRYNN signed IMMUNIZ ADMNIN, 1 VAC, SNGL/COMBO On: 29-Mar-2012 Intent ([id number])By: Aislinn Boykin CNP Comments: lot # [id number]- 12/18/1212ekqu-JZLYydjog-ROnmun- 0.5 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 Aislinn Aragon MAMMOGRAM, SCREENING, BOTH BREASTS On: 29-Mar-2012 Intent ([id number])By: Aislinn Boykin CNPnylakayli BINGHAM Divya FLU VAC, SPLIT, >3 YEARS, INTRAMUSC On: 29-Mar-2012 Intent ([id number])By: Aislinn Boykin CNP, CNP Divya MRI -Cervical Spine (IV Contrast On: 11-Jun-2010 Intent Needed)By: Teddy BINGHAM DivyaMargo Boykin CNP Divya Radiology - Cervical SpineBy: Eben On: 05-Jun-2010 Intent Mayela LONDONO Aerosol Treatment ([id number])By: Teddy On: 03-Sep-2009 Intent ZACHERY Divya Cikathi ZACHERY Aislinn Aragon Pulse Oximetry ([id number])By: Teddy BINGHAM, On: 06-May-2009 Intent Aislinn Aragon Swethakathi ZACHERY Aislinn Aragon Aerosol Treatment ([id number])By: Teddy On: 06-May-2009 Intent ZACHERYAislinn Margo Irwinkayli ZACHERYAislinn IMMUNIZ ADMNIN, 1 VAC, SNGL/COMBO On: 20-Mar-2009 Intent ([id number])By: Aislinn Boykin CNP, CNP Divya FLU VAC, SPLIT, >3 YEARS, INTRAMUSC On: 20-Mar-2009 Intent ([id number])By: Aislinn Boykin CNP Comments: Lot #[id number]-left deltoidgiven by:Aislinn LEMONS CNP CT - Abdomen & Pelvis (IV Contrast On: 14-Mar-2009 Intent Needed)By: Aislinn Boykin CNP, CNP, Mary E Ultrasound - PelvisBy: Teddy BINGHAM, On: 14-Mar-2009 Intent Aislinn Leonard CNP Comments: attention adrenals and ovaries SPECIMEN HNDLNG/TRNSPRT, OFFC > LAB On: 18-Jan-2009 Intent ([id number])By: Aislinn Boykin CNP, CNP, Mary E DXA, BONE DENSITY, AXIAL SKELETON On: 13-Nov-2008 Intent (89162)By: Aislinn Boykin CNP, CNP, Mary E MAMMOGRAM, SCREENING, BOTH BREASTS On: 13-Nov-2008 Intent ([id number])By: Aislinn Boykin CNP, CNP, Mary E ELECTROCARDIOGRAM, COMPLETE (ECG) On: 11-Oct-2008 Intent (91011)By: Aislinn Boykin CNP, CNP, Mary E Planned [...] D deficiency, unspecified : DISCONTINUED - CALCIFEDIOL (71640) Indication: Vitamin D deficiency, unspecified B12 deficiency [...] for Shingles: follow up ER visit from [facility] End: 08-May-2015 12:08 nations secondary from [...] does not have durable power of attorney recruiter or living will. The patient has noticed feeling helpless (feels depressed jasiel etimes). Other providers contributing to the patient's care are syrup maker cook (Dr Genao) and other: (Neuro Danielle Mariee at [facility]).Encounter Diagnosis: Annual Medicare Physical (V70.0), Breast [...] does not have durable power of attorney recruiter or living will. The patient has noticed staying at home rather than doing something new or going out and lack of energy. Other providers contributing to the patient's care are syrup maker cook and other: (neuromuscular specKraig Manriquez). Comprehensive Internal [...] keep the care continum I was at [facility] yesterday Encounter Diagnosis: DEPRESSIVE DISORDER (311.0), [...]
--- OUTSIDE RECORDS SUMMARY | 2018-07-18 08:33 | XMS RPT_ITS | Continuity of Care Document ---
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 Manriquez at [facility] getting carotene weekly IV twice [...] : 18-Dec-2016 End : 28-Dec-2016 Inactive ERGOCALCIFEROL, 86484GDNT (Oral Capsule) 1 (one) Capsule twice weekly [...] 3 days then 1 tab tid NYSTATIN, 516736WIPM/ML (Mouth/Throat Suspension) 4 Milliliter qid for 7 days Quantity: 1 {qs} Refills: 0 Ordered:23-Dec-2010 Alidakayli SALVAGE REPAIRER, Aislinn Ema SALVAGE REPAIRER, Divya Start : 23-Dec-2010 End : 30-Dec-2010 [...] Quantity: 30 {Tablet} Refills: 0 Ordered:22-Apr-2016 Diamante Juraez LPN Start : 11-Oct-2015 End : 22-Apr-2016 [...] 11-Apr-2012 End : 11-Oct-2015 Discontinued VITAMIN D, 37528OMII (Oral Capsule) 1 (one) Capsule twice weekly [...] Report Result: Comments: See Note; NOTES: [facility] Medical Records Department [address] [place] [address] Operative Report 01/25/18 1254 MR#: [id number] Acct: [id number] Name: HANNA CHAVEZ Rep #: [id number] : 1950 67 From: Vaishnavi Dietz MD PCP: Aislinn Espinal NP Status: [facility] Y Location: [place] [address] Problem List (1) Urinary tract infection Status: Acute Report of Operation Date of Procedure: 01/25/18 Pre-Operative Diagnosis: urinary tract infection, pelvic pain Post-Operative Diagnosis: same and rectocele Surgery/Procedure Performed:: cystoscopy and pelvic exam under anesthesi a Description of Surgical Findings:: normal cystoscopy. very short anterior vaginal wall. grade 3 rectocele. atrophy. stna: Vaishnavi Dietz Type of Anesthesia:: MAC Specimen's [...] Instruction Result: Comments: See Note; NOTES: [facility] Medical Records Department [address] [place] [address] Instructions for Home/Discharge Instructions 01/25/18 1228 MR#: [id number] Acct: [id number] Name: HANNA CHAVEZ Rep #: [id number] : 1950 67 From: Vaishnavi Dietz MD PCP: Aislinn Espinal NP Status: REG [facility] [place] Discharge Diet: No Restrictions [...] DAILY 05/23/13 Triamcinolone Acetonide [Nasacort Aq Nasal [place]] 2 spray NASAL DAILY PRN 05/23/13 Levocarnitine [...] Date Vaishnavi Dietz MD CC: Aislinn Espinal [employer] ADMINISTRATOR 17-Jan-2018 Kidney and Bladder Result: Comments: See Note; NOTES: [facility] Imaging Services [address] [place] [address] Kidney and Bladder MR#: [id number] Acct: [id number] Name: HANNA CHAVEZ Rep #: [id number] DO B: 1950 F 67 From: Tee Weems PCP: Aislinn Espinal NP Status: REG CLI Study: Kidney and Bladder Date of Exam: 01/17/18 Exam# [id number] Ordering Dr: Vaishnavi Dietz MD STUDY: RENAL [...] CC: Aislinn Espinal NP; Vaishnavi Dietz MD Hand Mold Maker: Signed 29-Dec-2017 Transvaginal Non- Result: Comments: See Note; NOTES: [facility] Imaging Services [address] [place] [address] Transvaginal Non- MR#: [id number] Acct: [id number] Name: HANNA CHAVEZ Rep #: [id number] : 1950 F 67 From: Jacky Hanson MD PCP: Aislinn Espinal NP Status: REG CLI Study: Transvaginal Non- Date of Exam: 12/29/17 Exam# [id number] Ordering Dr: Vaishnavi Dietz MD STUDY: U [...] CC: Aislinn Espinal NP; Vaishnavi Dietz MD Hand Mold Maker: Signed 09-Dec-2017 Downtime Report Result: Comments: See Note; NOTES: [facility] Medical Records Department [address] [place] [address] Downtime Report MR#: [id number] Acct: [id number] Name: HANNA CHAVEZ Rep #: [id number] : 1950 67 From: Elmer Moreno PCP: Aislinn Espinal NP Status: REG CLI This patient was seen during an EMR downtime November 22, 2017 - November 29, 2017. This patient may have a combination of paper and electronic documentation or all paper documentation. All documentation is viewable within the e-chart portion of [employer] for each patient visit. 09-Dec-2017 Downtime Report Result: Comments: See Note; NOTES: [facility] Medical Records Department [address] [place] [address] Downtime Report MR#: [id number] Acct: [id number] Name: CHAVEZHANNA Thapa Rep #: [id number] : 1950 67 From: Elmer Moreno PCP: Aislinn Espinal NP Status: REG CLI This patient was seen during an EMR downtime November 22, 2017 - November 29, 2017. This patient may have a combination of paper and electronic documentation or all paper documentation. All documentation is viewable within the e-chart portion of [employer] for each patient visit. 03-Dec-2017 Foot min 3 Views Result: Comments: See Note; NOTES: [facility] Imaging Services [address] [place] [address] Foot min 3 Views MR#: [id number] Acct: [id number] Name: HANNA CHAVEZ Rep #: [id number] : 1950 F 67 From: Yahir Wolfe MD PCP: Aislinn Espinal NP Status: REG CLI Study: Foot min 3 Views Date of Exam: 12/03/17 Exam# [id number] Ordering Dr: Aislinn Espinal STUDY: X-RAY - [...] Service support , CC: Aislinn Espinal NP Hand Mold Maker: Signed 23-Dec-2016 Chest PA and Lateral Result: Comments: See Note; NOTES: [facility] Imaging Services [address] [place] [address] Verdana 4d Chest PA and Lateral MR#: [id number] Acct: [id number] Name: HANNA CHAVEZ Rep #: [id number] : 1950 F 66 From: Juan Woody MD PCP: Aislinn Espinal Status: REG CLI Study: Chest PA and Lateral Date of Exam: 12/23/16 Exam# [id number] Ordering Dr: Danielle Manriquez MD STUDY: X-RAY [...] , Service support , CC: Aislinn Manriquez Hand Mold Maker: Signed 05-Jul-2016 Discharge Instruction Result: Comments: See Note; NOTES: [facility] Medical Records Department [address] [place] [address] Discharge Instruction 07/05/162116 MR#: [id number] Acct: [id number] Name: JOSH CHAVEZ Rep #: [id number] : 1950 66 From: Sarabjit Salinas MD [...] your Primary Care Provider. Call [facility] ([phone]) or report to the closest Emergency Room. Call 911 if necessary. 07/05/16 <Electronically signed by Sarabjit Salinas MD> Date Sarabjit Salinas MD Cosigner Signature (If Indicated): Date CC: Aislinn Espinal 05-Jul-2016 Emergency Department Summary Result: Comments: See Note; NOTES: [facility] Medical Records Department [address] [place] [address] Emergency Department Summary 07/05/164 MR#: [id number] Acct: [id number] Name: HANNA CHAVEZ Rep #: [id number] : 1950 66 From: Sarabjit Salinas MD [...] problems, contact your Primary Care Provider. Call [facility] ([phone]) or repor t to the closest Emergency Room. Call 911 if necessary. 07/05/162116 <Electronically signed by Sarabjit Salinas MD> Date Sarabjit Salinas MD Cos igner Signature (If Indicated): Date CC: Aislinn Espinal 16-Apr-2015 Emergency Department Summary Result: Comments: See Note; NOTES: [facility] Medical Records Department [address] [place] [address] Emergency Department Summary MR#: [id number] Acct: [id number] Name: HANNA CHAVEZ Rep #: [id number] : 1950 64 From: Breanna Ryan MD PCP: Carla Hughes MD Status: [facility] ER DATE OF SERVICE: 04/15/2015 CHIEF COMPLAINT: [...] was at 3:00 a.m. She comes in [facility] for pain control. PHYSICAL EXAMINATION: VITAL [...] pain. Breanna Ryan MD T: NTS JOB: [id number] 04/16 2359 <Electronically signed by Breanna Ryan MD> Date Breanna Ryan MD Cosigner Signature (If Indicated): Date _ CC: Carla Hughes MD Date Dictated: 04/15/15816 Date Transcribed: 04/15/15816 Hand Mold Maker: Signed 15-Apr-2015 Discharge Instruction Result: Comments: See Note; NOTES: [facility] Medical Records Department [address] [place] [address] Discharge Instruction 04/15/15808 MR#: [id number] Acct: [id number] Name: HANNA CHAVEZ Rep #: [id number] : 1950 64 From: Breanna Ryan MD [...] problems, contact your doctor. Call [facility] ([phone]) or report to the closest Emergency Room. Call 911 if necessary. 04/15/15817 <Electronically signed by Breanna Ryan MD> Date Breanna Ryan MD Cosigner Signature (If Indicated): Date CC: Carla Hughes MD 03-Dec-2014 Emergency Department Summary Result: Comments: See Note; NOTES: [facility] Medical Records Department [address] [place] [address] Emergency Department Summary MR#: [id number] Acct: [id number] Name: HANNA CHAVEZ Rep #: [id number] : 1950 64 From: Shruthi Savage DO [...] Hughes. 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 Shruthi Savage DO T: NTS JOB: [id number] 12/03/14 2329 <Electronically signed by Shruthi Savage DO> Date Thalia Savage DO CC: Carla Hughes MD Date Dictated: 11/15/141931 Date Transcribed: 11/15/141931 Hand Mold Maker: Signed 16-Nov-2014 12 Lead Electrocardiogram Result: Comments: See Note; NOTES: [facility] Cardiovascular Services [address] [place] [address] 12 Lead EKG 11/15/14 1626 MR#: [id number] Acct: [id number] Name: HANNA CHAVEZ Rep #: [id number] : 1950 64 From: Lamont Lucas MD [...] l ECG Confirmed by LAMONT LUCAS ([id number]), food expeditor LAKIA MORENO ([id number]) on 11/16/2014 10:58:54 AM Referred By: JERE Confirmed By:LAMONT LUCAS 11/16/14 1059 Date Lamont Lucas MD CC: Carla Hughes MD Date Dictated: 11/15/141625 Date Transcribed: 11/15/141625 Hand Mold Maker: Signed 15-Nov-2014 Discharge Instruction Result: Comments: See Note; NOTES: [facility] Medical Records Department [address] [place] [address] Discharge Instruction 11/15/141924 MR#: [id number] Acct: [id number] Name: HANNA CHAVEZ Rep #: [id number] : 1950 64 From: Shruthi Savage DO [...] problems, contact your doctor. Call [facility] ([phone]) or report to the [facility] Emergency Room. Call 911 if necessary. 11/15/141927 <Electronically signed by Shruthi Savage DO> Date Shruthi Savage DO Co signer Signature (If Indicated): Date CC: Carla Hughes MD 15-Nov-2014 CTA Chest W/WO Contrast Result: Comments: See Note; NOTES: [facility] Imaging Services [address] [place] [address] CAT Scan Report MR#: [id number] Acct: [id number] Name: HANNA CHAVEZ Rep #: [id number] : 1950 F 64 From: Chele Puckett MD PCP: Carla Hughes MD Status: REG ER Study: CTA Chest W/WO Contrast Date of Exam: 11/15/14 Exam# [id number] Ordering Dr: Shruthi Savage DO STUDY: CTA [...] MD at 19:05 EDT , Service support [phone], CC: Carla Hughes MD; Shruthi Savage DO Hand Mold Maker: Signed 15-Nov-2014 Chest PA and Lateral Result: Comments: See Note; NOTES: [facility] Imaging Services [address] [place] [address] Radiology Report MR#: [id number] Acct: [id number] Name: HANNA CHAVEZ Rep #: [id number] : 1950 F 64 From: Martín Morales MD PCP: Carla Hughes MD Status: DEP ER Study: Chest PA and Lateral Date of Exam: 11/15/14 Exam# [id number] Ordering Dr: Shruthi Savage DO STUDY: X- [...] Martín Morales MD at 9:28 EDT Tel [phone], Service support [phone], 0062 RAD/Chest PA and Lateral IMPRESSION: No acute abnormality is seen. Electronically Signed: Martín Morales MD at 9:28 EDT Tel [phone], Service support [phone], CC: Carla Hughes MD; Shruthi Savage DO Hand Mold Maker: Signed 29-Dec-2013 L/S Spine Min 4 Views Result: Comments: See Note; NOTES: [facility] Imaging Services [address] [place] [address] Radiology Report MR#: [id number] Acct: [id number] Name: HANNA CHAVEZ Rep #: [id number] : 1950 F 63 From: Nirmal Watts PCP: Carla Hughes MD Status: REG CLI Study: L/S Spine Min 4 Views Date of Exam: 12/29/13 Exam# [id number] Ordering Dr: Carla Hughes MD STUDY: X-RAY [...] DO at 23:38 EDT , Service support [phone], CC: Carla Hughes MD Hand Mold Maker: Signed Immunization Name Dates Details Influenza (3 years and up) on: 20-Mar-2009 Comments: Lot #[id number]-left deltoidgiven by:CDH Family History Unknown Family Member [...] 1.92 m2 :31 [facility]: [facility] 97.2 f Pulse 86 /min [...] :57 Comments: Glaucoma screening done at [facility] yearly Temperature 97.9 f Pulse [...] kg/m2 Body Surface Area Calculated 1.92 m2 09-Xzb-177146:36 Temperature 99 f Comments: Method: Oral Pulse [...] Value Details :56 BNP,B-Type NATRIURETIC PEPTIDE Comments: [address] [place], [place], [address] B-TYPE FATOUMATA PEP 147.4 pg/mL (Abnormal) Range: 0-100 :56 Magnesium Comments: [address] [place], [place], [address] MG 2.1 mg/dL (Normal) Range: 1.6-2.6 :56 Prealbumin Comments: [address] [place], [place], [address] PREALBUMIN 19.2 mg/dL (Abnormal) Range: 20.0-40.0 :04 CBC W/Diff, Automated Comments: [facility] [address] [place], [address] Absolute Lymph 1.95 {X10_3/ul} (Normal) [...] 4.2-5.4 WBC 6.5 K/mm3 (Normal) Range: 4.4-11.0 76-Hmt-396878:04 Comprehensive Metabolic Profil Comments: [facility] [address] [place], [address] GAP 5 (Normal) Range: 5-15 [...] Please note revised GLUCOSE reference range /02/2018. 83-Kts-201084:32 CBC W/Diff, Automated Comments: [facility] [address] [place], [place], [address] Absolute Lymph 1.39 {X10_3/ul} (Normal) Range: 0.83-4.51 [...] 4.2-5.4 WBC 4.9 K/mm3 (Normal) Range: 4.4-11.0 30-Ycd-466192:32 Comprehensive Metabolic Profil Comments: Comments: [facility] [address] [place], [place], [address] GAP 6 (Normal) Range: 5-15 CO2 27.0 [...] Comments: Please note revised GLUCOSE reference range eumpnstmt36/02/2018. 16-Ncg-299092:32 Thyroid Stim Hormone (TSH) Comments: Comments: [facility] [address] [place], [place], [address] TSH 1.47 {uIU/mL} (Normal) Range: 0.358-3.74 87-Faa-285417:51 Vitamin B12 > 2000 pg/mL (Abnormal) Comments: [facility] [address] [place], [place], [address] Range: 211-911 94-Frx-857577:11 CBC W/Diff, Automated Comments: [facility] [address] [facility] [address] [place], [place], [address] Absolute Lymph 1.66 {X10_3/ul} (Normal) Range: 0.83-4.51 [...] 4.2-5.4 WBC 5.9 K/mm3 (Normal) Range: 4.4-11.0 50-Gzm-102567:11 Comprehensive Metabolic Profil Comments: [facility] [address] [place], [place], [address] GAP 8 (Normal) Range: 5-15 CO2 26.0 [...] Comments: Please note revised GLUCOSE reference range larauumpu27/02/2018. 13-Dzo-777968:47 Culture, Urine Comments: [facility] [address] [place], [place], [address] CUUR See Note (Normal) Comments: Urine CultureORGANISM 1: Mixed Gram Pos AND Gram Neg OrgColony Count 50,000-80,000MIX CULTURE Mixed contaminants. Submit a new specimen if indicated. :47 Urinalysis, Complete Comments: How was Urine Obtained? CLEAN [facility] [address] [place], [place], [address] MUCUS, URINE 0 SEEN {/hpf} (Normal) BACTERIA [...] BELOW (Normal) Comments: Visual Urine Color: GREEN 77-Sdh-810917:41 TSH (23645) Comments: PATIENT NOT FASTINGPERFORMED BY: [facility] VinelandPlvcok9029 [facility] [id number] TSH 2.310 {uIU/mL} (Normal) Range: 0.450-4.500 54-Tzk-218533:28 URINE DELMAR CULTURE-IDENTIFICATN Comments: PATIENT NOT FASTINGPERFORMED BY: [facility]6370 [facility] [id number] Information: SRC:UR (46864) Result 1 MUG (Normal) Comments: Mixed urogenital flora1,000 Colonies/mL Urine Culture,Comprehensive Final report (Normal) 33-Oqz-460623:41 Metabolic Panel, Comprehensive Comments: PATIENT NOT FASTINGPERFORMED BY: [facility]6370 [facility] [id number] (24414) ALT (SGPT) 16 [iU]/L (Normal) Range: 0-32 [...] 8-27 Glucose 89 mg/dL (Normal) Range: 65-99 56-Pry-467051:02 Urinalysis, Office (84149) UA - LEUKOCYTE ESTERASE Small (Normal) UA - NITRITE Negative (Normal) URINE UROBILINGN JEROME TIMED Normal mg/dL (Normal) UA - PROTEIN Negative mg/dL (Normal) UA - PH 7.5 (Normal) UA - BLOOD Negative (Normal) UA - SPECIFIC GRAVITY 1.020 (Normal) UA - KETONES Negative mg/dL (Normal) UA - BILIRUBIN Negative (Normal) UA - GLUCOSE Negative (Normal) 16-Fnd-739330:54 LDH (LD) (LACTATE DEHYDROGENASE) Comments: PATIENT NOT FASTINGPERFORMED BY: 1-800-DENTIST Zqotyb1125 [facility] [id number] (68468) LDH 191 [iU]/L (Normal) Range: 119-226 17-Hyo-382524:54 RHEUMATOID FACTOR-QUANT (05644) Comments: PATIENT NOT FASTINGPERFORMED BY: [facility] Zzxupk3381 [facility] [id number] RA Latex Turbid. <10.0 {IU/mL} (Normal) Range: 0.0-13.9 37-Dzm-417214:54 C-Reactive Protein (04170) Comments: PATIENT NOT FASTINGPERFORMED BY: Floor64 Frrvqk8624 [facility] [id number] C-Reactive Protein, Quant 6.1 mg/L (Abnormal) Range: 0.0-4.9 :54 SED RATE ERYTHROCYTE (22241) Comments: PATIENT NOT FASTINGPERFORMED BY: [facility] Vyvvpq4535 [facility] [id number] Sedimentation Rate-Westergren 16 mm/h (Normal) Range: 0-40 7-Mnn-077455:40 CPK Total, Creatine Kinase Comments: 48[facility] [address] [place], [place], [address] CPK TOTAL 68 U/L (Normal) Range: 26-192 91-Tjh-215646:12 Culture, Urine Comments: [facility] [address] [place], [place], [address] CUUR See Note (Normal) Comments: Urine CultureORGANISM [...] S(NF) indicates non-formulary drug at [facility]. Approval by Infectious Disease Specialist required before non- formulary drugs may be ordered and/or dispensed. 63-Rwk-187319:12 Urinalysis, Routine (Dipstick) Comments: How was Urine Obtained? CLEAN [facility] [address] [place], [place], [address] LEUK ESTERASE 500 /ul (Abnormal) OCCULT BLOOD-UR 50 /ul (Abnormal) NITRITE UR Positive (Abnormal) UROBILI Normal mg/dL (Normal) PROT DIPSTX 100 mg/dL (Abnormal) pH UR 6.0 (Normal) Range: 5.0 - 8.0 SP.GR. DIPSTX 1.025 (Normal) Range: 1.002-1.030 KETONE UR Negative mg/dL (Normal) BILIRUBIN URINE Negative mg/dL (Normal) GLUCOSE, UR Normal mg/dL (Normal) CLARITY Cloudy (Normal) COLOR Yellow (Normal) 15-Fle-724078:15 CBC W/Diff, Automated Comments: [facility] [address] [place], [address] Absolute Lymph 1.50 {X10_3/ul} (Normal) [...] 4.2-5.4 WBC 4.6 K/mm3 (Normal) Range: 4.4-11.0 36-Las-266862:15 Comprehensive Metabolic Profil Comments: [facility] [address] [place], [address] GAP 7 (Normal) Range: 5-15 CO2 28.0 mmol/L (Normal) Range: 21.0-32.0 CL 106 mmol/L (Normal) Range: 98-107 K 3.6 mmol/L (Normal) Range: 3.5-5.1 NA 141 mmol/L (Normal) Range: 136-145 T BILI 0.60 mg/dL (Normal) Range: 0.20-1.00 ALT 27 U/L (Normal) Range: 13-56 Comments: Please note revised ALT reference range hiwianjsl94/28/2018. ALK P 68 U/L (Normal) Range: 45-117 [...] A.D.A. criteria.Please note revised GLUCOSE reference range ybyxkrjop13/02/2018. 6-Tbe-673650:59 CPK Total, Creatine Kinase Comments: [facility] [address] [place], [place], [address] CPK TOTAL 55 U/L (Normal) Range: 26-192 9-Mum-911740:59 GGTP 140 U/L (Abnormal) Comments: [facility] [address] [place], [address] Range: 5-55 24-Jun-20179:50 CBC W/Diff, Automated Comments: [facility] [address] [place], [place], [address] Absolute Lymph 1.40 {X10_3/ul} (Normal) Range: 0.83-4.51 [...] 4.4-11.0 24-Jun-20179:50 Comprehensive Metabolic Profil Comments: [facility] [address] [place], [place], [address] GAP 7 (Normal) Range: 5-15 CO2 28.0 [...] <126 mg/dLsuggests IMPAIRED HOMEOSTASIS per A.D.A. criteria. 14-Thj-716737:00 CBC W/Diff, Automated Comments: [facility] Xcovdtldtd[address]43 [facility] [place], [place], [address] ; Dr Fiore Absolute Lymph 1.66 {X10_3/ul} [...] 4.2-5.4 WBC 5.2 K/mm3 (Normal) Range: 4.4-11.0 87-Wqa-944396:00 Comprehensive Metabolic Profil Comments: [facility] [address] [place], [address] GAP 5 (Normal) Range: 5-15 CO2 27.0 [...] 7-18 GLU 106 mg/dL (Normal) Range: 70-110 67-Wsr-366400:00 CBC W/Diff, Automated Comments: [facility] [address] [place], [place], [address] ; rheum Absolute Lymph 1.83 {X10_3/ul} (Normal) [...] 4.2-5.4 WBC 5.8 K/mm3 (Normal) Range: 4.4-11.0 51-Zal-371049:00 Comprehensive Metabolic Profil Comments: [facility] [address] [place], [place], [address] ; Dr moreno GAP 7 (Normal) Range: [...] 7-18 GLU 98 mg/dL (Normal) Range: 70-110 31-Sds-576176:39 CBC W/Diff, Automated Comments: [facility] [address] [place], [address] SMEAR COMMENT SCANNED (Normal) Absolute Lymph 0.54 [...] 4.2-5.4 WBC 11.4 K/mm3 (Abnormal) Range: 4.4-11.0 31-Vmg-116758:39 Comprehensive Metabolic Profil Comments: [facility] [address] [place], [place], [address] GAP 10 (Normal) Range: 5-15 CO2 23.0 [...] 126 mg/dLsuggests DIABETES MELLITUS per A.D.A. criteria. 98-Ogx-677710:39 Lipase Comments: [facility] [address] [place], [place], [address] LIPASE 86 U/L (Normal) Range: 73-393 :01 Pap IG (Image Comments: Source.............Cervix;EndocervixNo. of containers..01 CYTYC Thin Prep VialPATIENT NOT FASTINGPERFORMED BY: =G [facility] [address] [id number] BY: WB [facility] Guided) rp Fjnegtyoiz708 [facility] [id number] Note: PAPSMR (Normal) Comments: The Pap smear [...] Prep VialPATIENT NOT FASTINGPERFORMED BY: =G [facility] Pcegvxqpkg158 [facility] [id number] BY: WB [facility] (64232) (no STD rp Ntxstnfwfc688 [facility] [id number] Information: [id number]; ov in 2 weeks testing) Age Gdln ACOG Testing AGE4 (Normal) Comments: <21 or >65 or no age provided 79-Gca-029903:55 CBC W/Diff, Automated Comments: [facility] [address] [place], [place], [address] Absolute Lymph 1.88 {X10_3/ul} (Normal) Range: 0.83-4.51 [...] Range: 4.4-11.0 :55 Comprehensive Metabolic Profil Comments: [facility] [address] [place], [place], [address] GAP 7 (Normal) Range: 5-15 CO2 28.0 [...] Range: 70-110 :52 CBC W/Diff, Automated Comments: [facility] [address] [place], [place], [address] Absolute Lymph 1.74 {X10_3/ul} (Normal) Range: 0.83-4.51 [...] 4.2-5.4 WBC 5.0 K/mm3 (Normal) Range: 4.4-11.0 29-Zwr-034859:52 Comprehensive Metabolic Profil Comments: [facility] [address] [place], [place], [address] GAP 6 (Normal) Range: 5-15 CO2 29.0 [...] 7-18 GLU 107 mg/dL (Normal) Range: 70-110 49-Mnl-916131:52 Vitamin D,25 Hydroxy Comments: [facility] [address] [place], [place], [address] Vitamin D 25-OH 23.6 ng/mL (Normal) Comments: Vitamin D 25(OH) Status Range Deficiency <20 ng/mL (50nmol/L) Insuffciency 20 - 30 ng/mL (50 - 75 nmol/L) Sufficiency 30 - 100 ng/mL (75 - 250 nmol/L) Toxicity >100 ng/mL (>250 nmol/L) 74-Apa-034721:34 URINE DELMAR CULTURE-JEROME COL Comments: PATIENT NOT FASTINGPERFORMED BY: [facility] VinelandBoxpid8342 [facility] [id number] Information: SRC:URC [id number] COUNT (75673) Result 1 MUG (Normal) Comments: Mixed urogenital floraGreater than 100,000 colony forming units per mL Urine Culture,Comprehensive Final report (Normal) 99-Dhb-325712:21 Urinalysis, Office (94578) UA - LEUKOCYTE ESTERASE Trace (Normal) UA - NITRITE Negative (Normal) URINE UROBILINGN JEROME TIMED Normal mg/dL (Normal) UA - PROTEIN Negative mg/dL (Normal) UA - PH 6.0 (Normal) Comments: 5.5 UA - BLOOD Negative (Normal) UA - SPECIFIC GRAVITY 1.030 (Abnormal) UA - KETONES Negative mg/dL (Normal) UA - BILIRUBIN Negative (Normal) UA - GLUCOSE Negative (Normal) 59-Nid-447139:10 CBC W/Diff, Automated Comments: [facility] [address] [place], [place], [id number] Absolute Lymph 1.44 {X10_3/ul} (Normal) Range: 0.83-4.51 [...] 4.2-5.4 WBC 4.3 K/mm3 (Abnormal) Range: 4.4-11.0 28-Cwl-548960:10 Comprehensive Metabolic Profil Comments: [facility] [address] [place], [phone] GAP 3 (Abnormal) Range: 5-15 CO2 28.0 [...] A.D.A. criteria. :10 Vitamin D,25 Hydroxy Comments: [facility] [address]aq[address] [place], [address] Vitamin D 25-OH 20.8 ng/mL (Normal) Comments: Vitamin D 25(OH) Status Range Deficiency <20 ng/mL (50nmol/L) Insuffciency 20 - 30 ng/mL (50 - 75 nmol/L) Sufficiency 30 - 100 ng/mL (75 - 250 nmol/L) Toxicity >100 ng/mL (>250 nmol/L) 02-Qcd-580031:16 CBC W/Diff, Automated Comments: [facility] [address] [place], [place], [id number] ; ordered by another doctor Absolute Lymph [...] 4.2-5.4 WBC 5.1 K/mm3 (Normal) Range: 4.4-11.0 73-Bpt-535728:16 Comprehensive Metabolic Profil Comments: [facility] [address] [place], [address] ; ordered by another doctor [...] 7-18 GLU 87 mg/dL (Normal) Range: 70-110 44-Zsl-321490:16 Vitamin D,25 Hydroxy Comments: [facility] [address] [place], [address] ; ordered by another doctor Vitamin D 25-OH 33.2 ng/mL (Normal) Comments: Vitamin D 25(OH) Status Range Deficiency <20 ng/mL (50nmol/L) Insuffciency 20 - 30 ng/mL (50 - 75 nmol/L) Sufficiency 30 - 100 ng/mL (75 - 250 nmol/L) Toxicity >100 ng/mL (>250 nmol/L) :22 CBC W/Diff, Automated Comments: [facility] [address] [place], [place], [id number] Absolute Lymph 1.19 {X10_3/ul} (Normal) Range: 0.83-4.51 [...] 4.2-5.4 WBC 4.6 K/mm3 (Normal) Range: 4.4-11.0 3-Ipn-369262:22 Comprehensive Metabolic Profil Comments: [facility] [address] [place], [place], [phone] GAP 3 (Abnormal) Range: 5-15 CO2 29.0 [...] 7-18 GLU 100 mg/dL (Normal) Range: 70-110 1-Ahd-608190:22 Lipid Profile Comments: [facility] [address] [place], [place], [address] VLDL 16 mg/dL (Normal) Range: 5-40 LDL [...] 200-240 mg/dL Borderline >240 mg/dL High Risk 1-Dec-858662:22 Thyroid Stim Hormone (TSH) Comments: [facility] [address] [place], [place], [id number] TSH 1.39 {uIU/mL} (Normal) Range: 0.358-3.74 13-Gpx-757017:30 CBC W/Diff, Automated Comments: Comments: IVT TO DRAW OFF PORTHas pt arrived? YTest performed at:[facility] [address] [place] [address] Absolute Lymph 1.56 {X10_3/ul} (Normal) [...] 4.2-5.4 WBC 4.7 K/mm3 (Normal) Range: 4.4-11.0 49-Wmq-353142:30 Comprehensive Metabolic Profil Comments: Has pt arrived? YComments: IVT TO DRAW FROM PORTTest performed at:[facility] [address] [place] [address] GAP 8 (Normal) Range: 5-15 [...] Comments: Please note revised CREATININE reference range pedtirqnk89/22/2015. BUN 21 mg/dL (Abnormal) Range: 7-18 GLU 133 mg/dL (Abnormal) Range: 70-110 Comments: Fasting Glucose result greater than or equal to 126 mg/dLsuggests DIABETES MELLITUS per A.D.A. criteria. 02-Lvk-800105:30 Vitamin D,25 Hydroxy Comments: Has pt arrived? YTest performed at:[facility] [address] [place] [address] Vitamin D 25-OH 22.5 ng/mL (Normal) Comments: Vitamin D 25(OH) Status Range Deficiency <20 ng/mL (50nmol/L) Insuffciency 20 - 30 ng/mL (50 - 75 nmol/L) Sufficiency 30 - 100 ng/mL (75 - 250 nmol/L) Toxicity >100 ng/mL (>250 nmol/L) 23-Lqe-361147:42 D-Dimer Quantitative (DVT/PE) Comments: Test performed at:[facility] [address] [place] [address] D-DIMER QUANT 0.54 {FEU/ug/m} (Abnormal) Range: 0.27-0.49 Comments: D-Dimer ELEVATED (>0.49): Additional studies and clinicalassessments are indicated to conclude diagnosis of:Deep Vein Thrombosis (DVT) or Pulmonary Embolism (PE)CRITICAL VALUE CALLED TO [place] [address]386/2 02/02 9655 Zehra Griffin.RESULTS READ BACK BY SAME . 58-Jaz-994362:39 Lipase Comments: Test performed at:[facility] [address] [place] [address] LIPASE 96 U/L (Normal) Range: 70-290 60-Dcr-363946:22 BNP,B-Type NATRIURETIC PEPTIDE Comments: Test performed at:[facility] [address]ws[address] [facility] [place] [address] B-TYPE FATOUMATA PEP 124.8 pg/mL (Abnormal) Range: 0-100 56-Bhu-388696:22 CBC W/Diff, Automated Comments: Test performed at:[facility] [address] [place] [address] Absolute Lymph 2.09 {X10_3/ul} (Normal) [...] 4.2-5.4 WBC 5.9 K/mm3 (Normal) Range: 4.4-11.0 98-Pts-457401:22 CK-MB Quantitative and Index Comments: Test performed at:[facility] [address] [place], [place] [id number] CPKMB 0.7 ng/mL (Normal) Range: 0.0-5.0 Comments: CK-MB and RI Interpretation MB Relative Index Non-AMI <or= 5 NA Indeterminate > 5 <or= 4 AMI > 5 > 4 CPK TOTAL 97 U/L (Normal) Range: 26-192 36-Zbc-203692:22 Comprehensive Metabolic Profil Comments: 'TROP' Serial specimen #1, #2, #3, or #4: 1Test performed at:[facility] [address] [place] [address] GAP 9 (Normal) Range: 5-15 [...] 126 mg/dLsuggests DIABETES MELLITUS per A.D.A. criteria. 68-Rjn-730588:22 Troponin-I Comments: 'TROP' Serial specimen #1, #2, #3, or #4: 1Test performed at:[facility] [address] [place] [address] TROPONIN-I < 0.02 ng/mL (Normal) Comments: TROPONIN-I EXPECTED VALUES <0.05 NEGATIVE 0.06 - 0.59 AT RISK OF ND > OR = 0.60 SUGGEST ND 94-Nnw-678875:20 Urinalysis, Complete Comments: Order Date: 11/15/14How was Urine Obtained? CLEAN CATCHTest performed at:[facility] [address] [place] [id number] AMORPHOUS 1+ PHOS (Normal) MUCUS, URINE 0 [...] CLARITY Sl. Cloudy (Normal) COLOR Yellow (Normal) 83-Vpx-564836:00 CBC W/Diff, Automated Comments: Comments: IVT TO DRAWTest performed at:[facility] [address] [place], [place] [id number] Absolute Lymph 1.62 {X10_3/ul} (Normal) Range: 0.83-4.51 [...] 4.2-5.4 WBC 5.8 K/mm3 (Normal) Range: 4.4-11.0 15-Ucq-729909:00 Comprehensive Metabolic Profil Comments: Comments: IVT TO DRAWTest performed at:[facility] [address] [place] [address] GAP 4 (Abnormal) Range: 5-15 [...] 126 mg/dLsuggests DIABETES MELLITUS per A.D.A. criteria. 04-Jaj-575216:25 CBC W/Diff, Automated Comments: Test performed at:[facility] [address] [place] [address] Absolute Lymph 1.28 {X10_3/ul} (Normal) [...] 4.2-5.4 WBC 5.0 K/mm3 (Normal) Range: 4.4-11.0 68-Coy-343381:25 Comprehensive Metabolic Profil Comments: Test performed at:[facility] [address] [place] [address] GAP 4 (Abnormal) Range: 5-15 CO2 29.0 [...] 7-18 GLU 100 mg/dL (Normal) Range: 70-110 19-Egt-732455:21 URINE DELMAR CULTURE-JEROME COL Comments: PATIENT NOT FASTINGPERFORMED BY: [facility] Dnkkmv2241 [facility] [id number] Information: SRC:UR [id number] COUNT (41344) Result 1 MUG (Normal) Comments: Mixed urogenital flora1,000 Colonies/mL Urine Culture,Comprehensive Final report (Normal) 18-Gnt-121268:35 Urinalysis, Office (72799) UA - LEUKOCYTE ESTERASE Trace (Normal) UA - NITRITE Negative (Normal) URINE UROBILINGN JEROME TIMED Normal mg/dL (Normal) UA - PROTEIN Negative mg/dL (Normal) UA - PH 6.0 (Normal) Comments: 5.5 UA - BLOOD Negative (Normal) UA - SPECIFIC GRAVITY 1.030 (Abnormal) UA - KETONES Negative mg/dL (Normal) UA - BILIRUBIN Negative (Normal) UA - GLUCOSE Negative (Normal) 9-Ohs-418105:15 CBCD ALC 1.51 {X10_3/ul} (Normal) Range: 0.83-4.51 [...] 4.2-5.4 WBC 5.7 K/mm3 (Normal) Range: 4.4-11.0 4-Frx-237238:15 CMP Comments: Comments: FAX RESULTS TO DR. [...] Supplements? N Range: 3.1-17.5 :01 Urinalysis, Office (06298) UA - LEUKOCYTE ESTERASE Negative (Normal) UA - NITRITE Negative (Normal) URINE UROBILINGN JEROME TIMED Normal mg/dL (Normal) UA - PROTEIN Negative mg/dL (Normal) UA - PH 5 (Abnormal) UA - BLOOD Negative (Normal) UA - SPECIFIC GRAVITY 1.025 (Normal) UA - KETONES Negative mg/dL (Normal) UA - BILIRUBIN Negative (Normal) UA - GLUCOSE Negative (Normal) 2-Lvk-787470:52 CBCD ALC 1.26 {X10_3/ul} (Normal) Range: 0.83-4.51 [...] To = OTHERTime Given = 915 :21 cGE5BFH 96 % (Normal) Range: 95-99 :21 iTYPE ART (Normal) 8-Gue-096424:37 Rapid Flu (66760 x 2) Comments: neg Influenza A Ag negative a and b (Normal) 6-Hmd-217660:59 Influenza A&B Viral Comments: neg; PATIENT NOT FASTINGPERFORMED BY: [facility] VinelandBtcijg9643 [facility] [id number] Information: SRC:NOS [id number] Culture (71638) Viral Culture,Rapid,Influenza FLUABN (Normal) Comments: Negative:No Influenza A or B detected. B12 274 pg/mL (Normal) Comments: COMMENTS: FAX RESULTS TO AISLINN SCOTT DRAW :05 Range: 211-911 Comments: Effective 201221-Sep-20123-Amt-003343:05 CBCD Comments: COMMENTS: FAX RESULTS TO DR. [...] 4.2-5.4 WBC 5.1 {k/mm3} (Normal) Range: 4.4-11.0 0-Ngq-082084:05 CMP Comments: COMMENTS: FAX RESULTS TO DR. [...] 7-18 GLU 87 mg/dL (Normal) Range: 70-110 7-Yjg-613391:05 FOL 22.20 ng/mL (Abnormal) Comments: COMMENTS: FAX RESULTS TO AISLINN SCOTT DRAW Range: 3.1-17.5 39-Xmx-628865:08 CALCIFEDIOL (65837) Comments: PATIENT NOT FASTINGPERFORMED BY: [facility] VinelandGrxhzj8678 [facility]At[facility] Centerra[facility]l [place] [id number] Information: [id number] Vitamin D, 25-Hydroxy 47.6 ng/mL (Normal) Range: 30.0-100.0 Comments: Vitamin D deficiency has been defined by the [place] of[place] and an Endocrine Society practice guideline as alevel of serum 25-OH vitamin D less than 20 ng/mL (1,2).The Endocrine Society went on to further define vitamin Dinsufficiency as a level between 21 and 29 ng/mL (2).1. IOM ([place] of [employer]). 2010. Dietary reference intakes for calcium and D. [place]: The National Academies Press.2. Stacia MF, Mago MONTE, Meliza MAGDALEON, et al. Evaluation, treatment, and prevention of vitamin D deficiency: an Endocrine Society clinical practice guideline. JCEM. 2010; 96(7):1911-30. 5-Qhv-800498:18 BILAT SCRN DIGITAL & CAD Radiology Report [...] Morales M.D.May 04 012 at 2:58:08 PM [id number] Signed GP/GP If you are the referring physician and would like to consult with theradiologist who provided this interpretation, please contact Valdo bettencourt M.D. at [phone]. If this radiologist is unavailable, youwill be directed to another radiologist to assist. If you are a patient with a question regarding this report, pleasecontactyour refe rring physician directly. Professional Interpretation Provided By: [employer], Phone , These documents contain legally protected [...] D deficiency has been defined by the [place] of[employer] and an Endocrine Society practice guideline as alevel of serum 25-OH vitamin D less than 20 ng/mL (1,2).The Endocrine Society went on to further define vitamin Dinsufficiency as a level between 21 and 29 ng/mL (2).1. IOM ([place] [employer]). 2010. Dietary reference intakes for calcium and D. [place]: The National Academies Press.2. Stacia MF, Mago MONTE, Meliza MAGDALENO, et al. Evaluation, treatment, and prevention of vitamin D deficiency: an Endocrine Society clinical practice guideline. JCEM. 2010; 96(7): 1911-30.Performed at: [facility] [address] [id number] Director: Meeta Hickman MD, Phone: [phone] 50-Sdy-764831:44 LIPID VLDL 14 mg/dL (Normal) Range: 5-40 [...] 200-240 mg/dL Borderline >240 mg/dL High Risk 26-Pyo-570049:35 Urinalysis, Office (45206) UA - BILIRUBIN Small (Normal) UA - BLOOD Negative (Normal) UA - GLUCOSE Negative (Normal) UA - KETONES Small mg/dL (Normal) Comments: trace UA - LEUKOCYTE ESTERASE Negative (Normal) UA - NITRITE Negative (Normal) UA - PH 5.0 (Normal) UA - PROTEIN Trace mg/dL (Normal) UA - SPECIFIC GRAVITY 1.025 (Normal) URINE UROBILINGN JEROME TIMED Normal mg/dL (Normal) 67-Ezb-430092:07 CBC with manual diff Comments: PATIENT NOT FASTINGPERFORMED BY: [employer] [address] [id number] Information: [id number],[id number] (39815) Immature Grans (Abs) 0.0 {x10E3/uL} (Normal) Range: [...] 3.80-5.10 WBC 5.6 {x10E3/uL} (Normal) Range: 4.0-10.5 31-Eih-949232:07 Metabolic Panel, Comprehensive Comments: PATIENT NOT FASTINGPERFORMED BY: [facility] VinelandWtjwkk4930 [facility] [id number] (96579) Alkaline Phosphatase, S 50 [iU]/L (Normal) Range: [...] Glucose, Serum 97 mg/dL (Normal) Range: 65-99 09-Lpk-67356:00 SPINE, CERVICAL (ROUTINE) Radiology See Note Comments: [...] n 06/18/101755 Sign by: [place] 74-Zfp-066642:49 RENAL CO2 28.0 mmol/L (Normal) Range: 21.0-32.0 [...] 0.6-1.0 GLU 102 mg/dL (Normal) Range: 70-110 60-Sdu-85004:00 CERV SPINE,MIN 4 VIEWS Radiology Report See [...] on 06/09/10 0855 Sign by: Alena Worley 22-Ybe-969276:55 CALCIFEDIOL (82717) Comments: PATIENT NOT FASTINGPERFORMED BY: [facility]6370 [facility] [id number] Information: [id number] Vitamin D, 25-Hydroxy 36.1 ng/mL (Normal) Range: 32.0-100.0 Comments: Recent studies consider the lower limit of 32.0 ng/mL to be athreshold for optimal health.Froylan BHAKTA. J Nutr. 2004;135(2):317-22. 11-Vzl-075255:53 CBCD ABSOLUTE NEUT 3.6 3/uL (Normal) Range: [...] 11.6-14.6 WBC 6.2 K/mm3 (Normal) Range: 4.4-11.0 35-Jpr-626190:53 COMP METABOLIC A/G 1.0 {RATIO} (Normal) Range: [...] (Normal) GLU 82 mg/dL (Normal) Range: 70-110 95-Jkc-851941:33 ALDOLASE 2030 4.7 U/L (Normal) Range: 1.2-7.6 Comments: Performed at: [facility] [id number] Director: Meeta Hickman MD 77-Ydm-297265:33 CBCD ABSOLUTE NEUT 2.6 3/uL (Normal) Range: [...] 11.6-14.6 WBC 4.9 K/mm3 (Normal) Range: 4.4-11.0 00-Asg-622702:33 COMP METABOLIC Comments: LIVER TEST TO CL [...] (Normal) Comments: LIVER TEST TO Range: 0.00-0.30 72-Eke-425557:46 COMPLETE UA BACTERIA RARE {/hpf} (Normal) MUCUS, [...] 0 % (Normal) Comments: Performed at: - [facility] [id number] Director: Meeta Hickman MD CK-MB 0 % (Normal) Range: 0-3 CK-MM 100 % (Normal) Range: 97-100 Macro I 0 % (Normal) Macro II 0 % (Normal) CPK,TOTAL,SERUM 59 U/L (Normal) Range: 24-173 :46 PTH,Intact 57 pg/mL (Normal) Range: 14-72 :46 TSH 1.06 {uIU/mL} (Normal) Range: 0.358-3.74 :29 ALDOLASE 2030 9.1 U/L (Abnormal) Range: 1.2-7.6 Comments: Performed at: - [facility] [id number] Director: Saul Cuadra MD :29 COMP METABOLIC [...] TOTAL 356 U/L (Abnormal) Range: 21-215 :29 [facility] [place] . (Normal) Comments: MYOGLOBIN, SERUM 121 H ng/mL 25 - 58 TESTING PERFORMED AT [facility]. ORIGINAL REPORT ONFILE IN LAB CONTAINS ADDITIONAL [...] (Abnormal) Range: 1.2-7.6 Comments: Performed at: [address] [id number] Director: Saul Cuadra MD :03 CKMB CKRI [...] 4.2-5.4 WBC 4.1 K/mm3 (Abnormal) Range: 4.4-11.0 54-Dti-879695:18 COMP METABOLIC CL 104 mmol/L (Normal) Range: [...] 0.6-1.0 GLU 109 mg/dL (Normal) Range: 70-110 19-Bxg-784458:10 Rapid Strep Test, Office (68238) Rapid Strep Test, Office Negative (Normal) 0-Ikp-916542:56 CALCIFEDIOL (07568) Comments: PATIENT NOT FASTINGPERFORMED BY: [facility] VinelandBgpcdn0375 [facility] [id number] Information: [id number] Vitamin D, 25-Hydroxy 19.7 ng/mL (Abnormal) Range: 32.0-100.0 Comments: Recent studies consider the lower limit of 32.0 ng/mL to be athreshold for optimal health.Froylan BHAKTA. J Nutr. 2004;135(2):317-22. 42-Dck-563232:10 ABDOMEN/PELVIS WITH CONTRAST Radiology Report See Note (Normal) Comments: Exam Number: [id number] CLINICAL:58 year old woman with abnormal blood [...] Report See Note (Normal) Comments: Exam Number: [id number] CLINICAL:58-year-old female post menopausal with positive beta-hCG [...] weeks recommended. Reported By: WILLIE BOLIVAR M.D. 00-Ffz-472851:55 PELVIC (NON-PREG) () Radiology Report See Note (Normal) Comments: Exam Number: [id number] CLINICAL:58-year-old female post menopausal with positive beta-hCG [...] Nonpreg Comments: Result: POSITIVE TEST is *POSITIVE* 14-Sdv-207151:28 ,URINE HCGUQUAL SeeNote m[iU]/mL (Normal) Comments: Result: Negative 36-Rkv-955961:17 DELMAR CULTURE-OTHER (19436) Comments: PATIENT NOT FASTINGClinical Information: SRC:THRT ADD [id number] PERFORMED BY: 1-800-DENTIST Etdlxv7150 [facility] [id number] Result 1 RRF (Normal) Comments: Routine respiratory gabriella Upper Respiratory Culture Final report (Normal) 16-Bjn-219173:03 LQD PAP [id number] Comments: CYTOLOGY INFORMATION:- CLINICAL INFORMATION: - DATE LMP/MENOPAUSE: 1998 LMP- COLLECTION VIAL: Thin Prep Vial- [employer]ER SOURCE: CERVICAL/ENDOCERVICAL- COLLECTION TECHNIQUE: BRUSH/SPATULA ADEQ Comment (Normal) Comments: Satisfactory for evaluation. Endocervical and/or squamous metaplasticcells (endocervical component) are present. COMM . (Normal) DIAGN Comment (Normal) Comments: NEGATIVE FOR INTRAEPITHELIAL LESION AND MALIGNANCY. HPV RFLX Comment (Normal) Comments: The HPV DNA reflex criteria were not met with this specimenresult therefore, no HPV testing was performed. .Performed At: [address] [id number] [facility] Comment (Normal) Comments: The Pap smear is a screening test designed to aid in thedetection of premalignant and malignant conditions of theuterine cervix. It is not a diagnostic procedure andshould not be used as the sole means of detecting cervicalcancer. Both false-positive and false-negative reports dooccur. . PERFORM Comment (Normal) Comments: Ashwin Blanc, Manager Personnel Selection (ASCP) 87-Hvm-212764:52 Microscopic Examination Comments: PATIENT WAS FASTINGPERFORMED BY: [employer]6370 [facility] [id number] Bacteria Few (Normal) Epithelial Cells (non renal) None seen {/hpf} (Normal) Range: 0 - 10 RBC None seen {/hpf} (Normal) Range: 0 - 3 WBC 0-5 {/hpf} (Normal) Range: 0 - 5 72-Wsa-441127:52 MICROALBUMIN: CREATININE RATIO Comments: PATIENT WAS FASTINGPERFORMED BY: [facility]6370 [facility] [id number] (64247) AND (17182) Creatinine, Urine 353.6 mg/dL (Abnormal) Range: 15.0-278.0 Microalb/Creat Ratio 5.4 {ug/mg_creat} (Normal) Range: 0.0-30.0 Microalbumin, Urine 19.2 ug/mL (Abnormal) Range: 0.0-17.0 07-Soq-412019:52 URINALYSIS (99716) Comments: PATIENT WAS FASTINGPERFORMED BY: [place] [id number] [facility] [id number] Appearance Clear (Normal) Bilirubin Negative (Normal) Glucose Negative (Normal) Ketones Negative (Normal) Microscopic Examination See below: (Normal) Nitrite, Urine Negative (Normal) Occult Blood Negative (Normal) pH 8.0 (Abnormal) Range: 5.0-7.5 Protein 1+ (Abnormal) Specific Edwards 1.010 (Normal) Range: 1.005-1.030 Urine-Color Yellow (Normal) Urobilinogen,Semi-Qn 0.2 mg/dL (Normal) Range: 0.0-1.9 WBC Esterase Negative (Normal) 15-Vcq-688307:52 Metabolic Panel, Comprehensive Comments: PATIENT WAS FASTINGPERFORMED BY: [facility]6370 [facility] [id number] (69682) A/G Ratio 1.6 (Normal) Range: 1.1-2.5 Albumin, [...] Sodium, Serum 144 mmol/L (Normal) Range: 135-145 78-Tfq-440308:52 Lipid Panel (48996) Comments: PATIENT WAS FASTINGPERFORMED BY: [employer] [place] [id number] Cholesterol, Total 237 mg/dL (Abnormal) Range: 100-199 [...] Cholesterol García 19 mg/dL (Normal) Range: 5-40 33-Gdr-249202:52 CBC with manual diff (19032) Comments: PATIENT WAS FASTINGClinical Information: ADD WILFREDO FEE 907809 ADD J 13203 PERFORMED BY: [employer] [facility] Smmumq8642 [employer] [place] [id number] Baso (Absolute) 0.1 {x10E3/uL} (Normal) Range: 0.0-0.2 [...] Well woman exam : *Well Female Maintenance ([facility]) Indication: Well woman exam Well woman exam : Pap/Pelvic/Bimanual/Rectal/Breast Exam was done. Indication: Well woman exam Dry eye syndrome : Follow up if no improvement or if symptoms worsen Indication: Dry eye syndrome Facial pressure : Eprescribed prescriptions (G8553) Indication: Facial pressure Insomnia : Follow up in 3 months with [facility] Indication: Insomnia Vitamin D deficiency, unspecified [...] pain : Follow up on Wednesday with [facility] Indication: Back pain Carnitine deficiency [...] UP IN 3 MONTHS with [facility] Indication: Unspecified inflammatory polyarthropathy Vitamin [...] Indication: DEPRESSIVE DISORDER (311.0) Planned Observations PREALBUMIN (06496)Indication: Malnutrition On: 26-Iru-924337:05 Request MAGNESIUM (58372)Indication: Hypocalcemia On: 75-Rew-397063:05 Request BNTP (18837)Indication: Leg swelling On: 32-Eto-310023:59 Request TSH (68708)Indication: Leg pain On: 74-Zqf-778373:42 Request CBC, Platelets & Auto Diff (35954)Indication: Leg pain On: 13-Zne-340249:42 Request Metabolic Panel, Comprehensive (15892)Indication: Leg pain On: 83-Knw-044157:42 Request Vitamin B-12 (cyanocobalamin) (86507)Indication: B12 deficiency On: 21-Pha-117735:55 Request CPK TOTAL & ISOENZYMES (81217)Indication: Pain in unspecified joint On: 81-Dkb-426273:03 Request URINE DELMAR CULTURE-IDENTIFICATN (69105)Indication: Dysuria On: 64-Xbk-442627:16 Request URINALYSIS (04659)Indication: Dysuria On: 61-Yiy-459457:16 Request CALCIFEDIOL (03135)Indication: Postmenopausal (Renamed from Postmenopausal status) On: 8-Lcs-218634:50 Request HPV automatic (48263)Indication: Screening for HPV (human papillomavirus) (Renamed from Encounter for screening for human papillomavirus (HPV)) On: 5-Ipz-417540:49 Request Metabolic Panel, Comprehensive (04497)Indication: DM (diabetes mellitus screen) On: 11-Keg-870321:24 Request TSH (12075)Indication: Screening for deficiency anemia On: :23 Request CBC, Platelets & Auto Diff (66897)Indication: Screening for deficiency anemia On: :23 Request Lipid Panel (67665)Indication: Screening for hyperlipidemia On: :23 Request VITAMIN B12 AND FOLATES (03778)Indication: Leg pain On: 0-Cdm-928178:27 Request HEPATIC FUNCTION PANEL (20220)Indication: Hypercholesteremia On: 47-Ymo-247999:15 Request CBC with manual diff (17874)Indication: Carnitine deficiency On: 28-Sdy-894089:10 Request Metabolic Panel, Comprehensive (80173)Indication: Arthritis On: 37-Esq-249817:10 Request LIPID PANEL (76327)Indication: Hypercholesteremia On: 86-Yar-759649:10 Request CBC (AUTO) (63669)Indication: FATIGUE On: 1-Jea-668144:24 Request METABOLIC PANEL, COMPREHENSIVE (24462)Indication: FATIGUE On: 0-Eul-560526:24 Request Folate (47442)Indication: FATIGUE On: :24 Request VITAMIN B-12 (CYANOCOBALAMIN) (24006)Indication: FATIGUE On: 6-Gql-046512:24 Request TSH (98961)Indication: DEPRESSIVE DISORDER (311.0) On: 38-Wzi-286803:16 Request CBC with manual diff (55407)Indication: Myopathy NOS On: 5-Hjo-983912:03 Request Metabolic Panel, Comprehensive (69542)Indication: DEPRESSIVE DISORDER (311.0) On: 9-Kkl-709451:03 Request Lipid Panel (73754)Indication: Hypercholesteremia On: 3-Nun-896476:03 Request CALCIFEDIOL (14697)Indication: Vitamin D deficiency, unspecified On: 9-Eiw-196518:02 Request Renal function Panel (05887)Indication: Neck pain On: 55-Myz-693178:14 Request CALCIFEDIOL (71256)Indication: Vitamin D deficiency, unspecified On: 26-Jun-20099:26 Request Comments: draw Beginning September 2009 TEST - SERUM QUANTITATIVE (HCG) (88591)Indication: Abnormal blood chemistry On: 05-Ljm-765523:06 Request PREGNACY TEST, URINE (16540)Indication: Abnormal blood chemistry On: :06 Request Lipid Panel (39048)Indication: Hypercholesteremia On: 90-Zet-637203:16 Request Comments: fasting Rapid Strep Test, Office ([id number])Indication: Pharyngitis, acute On: 31-Wll-414753:04 Request Thin prep Pap ([id number])Indication: Well woman exam On: 37-Qvv-122409:09 Request FECAL OCCULT HGB ASSAY- tubes sent home ([id number])Indication: Well woman exam On: 70-Lws-440120:54 Request OCCULT BLOOD FECES SCREEN- card done in office ([id number])Indication: Well woman exam On: 60-Akb-358302:54 Request CPK TOTAL & ISOENZYMES ([id number])Indication: Myalgia and myositis On: 89-Itn-672650:37 Request CALCIFEDIOL ([id number])Indication: Leg cramps On: 70-Ouw-736003:36 Request VITAMIN B-12 (CYANOCOBALAMIN) (02741)Indication: Pain in unspecified joint On: 26-Bks-942066:35 Request PARATHORMONE ([id number])Indication: Myalgia and myositis On: 47-Hum-494859:35 Request RHEUMATOID FACTOR-QUANT ([id number])Indication: Pain in unspecified joint On: 14-Ppm-003187:15 Request SED RATE ERYTHROCYTE ([id number])Indication: Pain in unspecified joint On: 94-Okf-849285:15 Request Planned Encounters Medical; 2 Week FU - On: 24-May-2018 15:30 [facility] Aislinn Espinal CNP, CNP, Mary E Planned Procedures Venous Doppler - LeftBy: Teddy ZACHERY, On: 02-May-2018 Intent Aislinn Leonard CNP Aerosol Treatment ([id number])By: Teddy On: 28-Mar-2018 Intent Aislinn BINGHAM CNP, Mary E Flu Vaccine (Quadrivalent) [id number]: On: 28-Mar-2018 Intent Aislinn Espinal CNP, CNP, Mary E Comments: Lot #[id number]-L dltd, IMDose prefilled syringegiven by: VENANCIO Noriega [...] Intent E Aislinn Espinal CNP Ear Irrigation ([id number])By: Teddy On: 18-Dec-2016 Intent Aislinn BINGHAM CNP, Mary E Wax CurettesBy: Teddy Aislinn BINGHAM On: 18-Dec-2016 Intent Aislinn Espinal CNP Aerosol Treatment ([id number])By: Teddy On: 18-Dec-2016 Intent Aislinn BINGHAM CNP, Mary E Wax CurettesBy: Pamela Bates On: 01-Dec-2016 Intent Ear Irrigation ([id number])By: Paulo On: 01-Dec-2016 Marvin Santiago Comments: Ear Irrigation performed on:rightAmount/color removed cerumen:small OUtcome:clear and tolerated PNEUM VAC ADLT/IMUMNOSPR, SBC/INTRM On: 19-May-2016 Intent ([id number])By: Teddy Aislinn BINGHAM CNP, Mary E Flu Vaccine (Quadrivalent) 39511Gz: On: 12-May-2016 Intent Swethanylakayli BINGHAMAislinn CNP, Mary E Comments: FLUlot: [id number]:11/04site:Lt deltoidroute:IMdose:.5mlDEMICK MA DEXA SCAN AXIAL SKELETON ([id number])By: On: 22-Apr-2016 Intent Teddy BINGHAM Aislinn Aragon [...] ZACHERY Aislinn Aragon DEXA SCAN AXIAL SKELETON ([id number])By: On: 06-Mar-2015 Intent Teddy BINGHAM Aislinn Aragon Swethakathi ZACHERY Aislinn Aragon MAMMOGRAM, SCREENING, BOTH BREAST On: 06-Mar-2015 Intent ([id number])By: Teddy BINGHAM Divya Cikathi ZACHERY Divya ANNUAL DEPRESSION SCREENING, 15 On: 06-Mar-2015 Intent MINUTES ([id number])By: Teddy IBNGHAM Aislinn Aragon Swethanylakayli BINGHAM Divya Venous Doppler - LeftBy: Teddy BINGHAM, On: 29-Aug-2014 Intent DivyaMargo Espinal CNP Aislinn Aragon MARY ALICE (Ankle Brachial Index) On: 29-Aug-2014 Intent ([id number])By: Teddy BINGHAM Aislinn Aragon Swethakathi ZACHERY Aislinn Aragon SPECIMEN HANDLING/TRANSPORT On: 16-May-2014 Intent ([id number])By: Teddy BINGHAM Aislinn Aragon Swethakathi ZACHERY Aislinn Aragon Flu Vaccine (Quadrivalent) 56565Tk: On: 19-Apr-2014 Intent Teddy BINGHAM Aislinn Espinal ZACHERY Aislinn Aragon Comments: lot:[id number]:dose:0.5mLRoute: IMlocation: L armgiven by: msmith ADMINISTRATION OF INFLUENZA VIRUS On: 19-Apr-2014 Intent VACCINE ([id number])By: Mckenzie Zhao Radiology - Lumbar SpineBy: Ciesa On: 29-Dec-2013 Intent SALVAGE REPAIRER, Divya Cinylaa SALVAGE REPAIRER, Divya Toradol Injection, 30 mg ([id number])By: On: 29-Dec-2013 Intent Ciesa SALVAGE REPAIRER, Divya Ciesa SALVAGE REPAIRER, Divya Ear Irrigation ([id number])By: Eben On: 19-Apr-2013 Intent Mayela LONDONO Comments: Ear Irrigation performed on:bilateralAmount/color removed cerumen:small amount of darkl brown waxOUtcome:clearUsed wax curettes FLU VAC, SPLIT, >3 YEARS, INTRAMUSC On: 19-Apr-2013 Intent (43049)By: Pamela Crooks LPN Comments: Lot:[id number]:6.14Amt:0.5mlRoute:IMSite: L DltdGiven By: Alejandra CMAVIS signed IMMUNIZ ADMNIN, 1 VAC, SNGL/COMBO On: 19-Apr-2013 Intent ([id number])By: Pamela Crooks LPN Wax CurettesBy: Mayela Treadwell DO On: 19-Apr-2013 Intent Eprescribed prescriptions ([id number])By: On: 19-Apr-2013 Intent Pamela Crooks LPN B 12 Injection, 1000 mcg (J3420)By: On: 28-Dec-2012 Intent Kassie Tellez LPN B 12 Injection, 1000 mcg (J3420)By: On: 29-Nov-2012 Intent Pattie Malagon LPN Comments: Lot: [id number]: [id number]: 1000mcg/1mlRoute: IMSite: L deltoidGiven by: CHRISTOPHE Allen B 12 Injection, 1000 mcg (J3420)By: On: 26-Oct-2012 Intent Jina Gomes LPN Comments: Lot #[id number]/14Site-right deltoidDose-1 mlgiven by: Rishabh Gomes LPN B 12 Injection, 1000 mcg (J3420)By: On: 11-Oct-2012 Intent Deedee Cantrell Comments: lot: [id number]:06/03site/route: L deltoid/IMamt: 1ccVIS signed when applicableArmindaANDIE vásquez B 12 Injection, 1000 mcg (J3420)By: On: 05-Oct-2012 Intent Teddy BINGHAM Divya Cikathi ZACHERYAislinn B 12 Injection, 1000 mcg (J3420)By: On: 27-Sep-2012 Intent Valencia Renee Comments: Lot:[id number]:06/03Dose:1mlRoute:IMSite:kiko buenoGiven By:BRYNN signed IMMUNIZ ADMNIN, 1 VAC, SNGL/COMBO On: 29-Mar-2012 Intent (78081)By: Aislinn Espinal CNP Comments: lot # [id number]- 12/18/[id number]-FJrvje- 0.5 MLCJericho SAEED CNP Divya MAMMOGRAM, SCREENING, BOTH BREASTS On: 29-Mar-2012 Intent ([id number])By: Aislinn Espinal CNP, CNP Divya FLU VAC, SPLIT, >3 YEARS, INTRAMUSC On: 29-Mar-2012 Intent ([id number])By: Aislinn Espinal CNP, CNP Divya MRI -Cervical Spine (IV Contrast On: 11-Jun-2010 Intent Needed)By: Aislinn Espinal CNP, CNP Divya Radiology - Cervical SpineBy: Eben On: 05-Jun-2010 Intent DO Mayela Aerosol Treatment ([id number])By: Teddy On: 03-Sep-2009 Intent ZACHERY DivyaMargo Espinal CNP Divya Pulse Oximetry ([id number])By: Teddy BINGHAM, On: 06-May-2009 Intent Aislinn Espinal CNP Divya Aerosol Treatment ([id number])By: Teddy On: 06-May-2009 Intent Aislinn BINGHAM CNP Divya IMMUNIZ ADMNIN, 1 VAC, SNGL/COMBO On: 20-Mar-2009 Intent ([id number])By: Aislinn Espinal CNP, CNP Divya FLU VAC, SPLIT, >3 YEARS, INTRAMUSC On: 20-Mar-2009 Intent ([id number])By: Aislinn Espinal CNP Comments: Lot #[id number]-left deltoidgiven by:Aislinn LEMONS CNP CT - Abdomen & Pelvis (IV Contrast On: 14-Mar-2009 Intent Needed)By: Aislinn Espinal CNP, CNP, Mary E Ultrasound - PelvisBy: Teddy BINGHAM, On: 14-Mar-2009 Intent Aislinn Leonard CNP Comments: attention adrenals and ovaries SPECIMEN HNDLNG/TRNSPRT, OFFC > LAB On: 18-Jan-2009 Intent ([id number])By: Aislinn Espinal CNP, CNP, Mary E DXA, BONE DENSITY, AXIAL SKELETON On: 13-Nov-2008 Intent (59902)By: Aislinn Espinal CNP, CNP, Mary E MAMMOGRAM, SCREENING, BOTH BREASTS On: 13-Nov-2008 Intent ([id number])By: Aislinn Espinal CNP, CNP, Mary E ELECTROCARDIOGRAM, COMPLETE (ECG) On: 11-Oct-2008 Intent (54077)By: Aislinn Espinal CNP, CNP, Mary E Planned [...] D deficiency, unspecified : DISCONTINUED - CALCIFEDIOL (45309) Indication: Vitamin D deficiency, unspecified B12 deficiency [...] for Shingles: follow up ER visit from [facility] End: 08-May-2015 12:08 nations secondary from [...] 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 The patient has noticed feeling helpless (feels depressed jasiel etimes). 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 The patient has noticed staying at home rather than doing something new or going out and lack of energy. Other providers contributing to the patient's care are cast iron dipper and other: (neuromuscular specKraig Manriquez). [facility] [...] keep the care continum I was at [facility] yesterday Encounter Diagnosis: DEPRESSIVE DISORDER [...] Patient has been compliant with instructions. Current [facility] End: 25-Jun-2009 15:08 cation use: no side [...]
--- OUTSIDE RECORDS SUMMARY | 2018-07-18 08:34 | XMS RPT_ITS ---
:1950 Author Organization OHIP Support Name Relationship Address Phone TIGRE WILD Unavailable [address] + [place] [address] R Unavailable Unavailable TIGRE Pace Unavailable [address] + [place] [address] R Unavailable Unavailable Iliana WILD TIGRE Unavailable [address] + [place] [address] R Unavailable Unavailable Iliana WILD TIGRE Unavailable [address] + [place] [address] R Unavailable Unavailable Unavailable JUNITO TIGRE Unavailable [address] + [place] [address] R Unavailable Unavailable Iliana WILD TIGRE Unavailable [address] + [place] [address] R Unavailable Unavailable Iliana WILD TIRGE Unavailable [address] + [place] [address] R Unavailable Unavailable Unavailable JUNITO TIRGE Unavailable [address] + [place] [address] R Unavailable Unavailable Iliana WILD TIGRE Unavailable [address] + [place] [address] R Unavailable Unavailable Unavailable JUNITO TIGRE Unavailable [address] + [place] [address] R Unavailable Unavailable Unavailable JUNITO TIGRE Unavailable [address] + [place] [address] R Unavailable Unavailable Unavailable WILD TIGRE Unavailable [address] + [place] [address] R Unavailable Unavailable Iliana WILD TIGRE Unavailable [address] + [place] [address] R Unavailable Unavailable Unavailable TIGRE WILD Unavailable [address] + [place] [address] R Unavailable Unavailable Unavailable TIGRE WILD Unavailable [address] + [place] [address] R Unavailable Unavailable TIGRE Pace Unavailable [address] + [place] [address] R Unavailable Unavailable Unavailable TIGRE WILD Unavailable [address] + [place] [address] R Unavailable Unavailable TIGRE Pace Unavailable [address] + [place] [address] R Unavailable Unavailable Unavailable TIGRE WILD Unavailable [address] + [place] [address] R Unavailable Unavailable TIGRE Pace Unavailable [address] + [place] [address] R Unavailable Unavailable TIGRE Pace Unavailable [address] + [place] [address] R Unavailable Unavailable TIGRE Pace Unavailable [address] + [place] [address] R Unavailable Unavailable TIGRE Pace Unavailable [address] + [place] [address] R Unavailable Unavailable TIGRE Pace Unavailable [address] + [place] [address] R Unavailable Unavailable TIGRE Pace Unavailable [address] + [place] [address] R Unavailable Unavailable TIGRE Pace Unavailable [address] + [place] [address] R Unavailable Unavailable Iliana WILD TIGRE Unavailable [address] + [place] [address] R Unavailable Unavailable Unavailable TIGRE WILD Unavailable [address] + [place] [address] R Unavailable Unavailable TIGRE Pace Unavailable [address] + [place] [address] R Unavailable Unavailable Unavailable TIGRE WILD Unavailable [address] + [place] [address] R Unavailable Unavailable TIGRE Pace Unavailable [address] + [place] [address] R Unavailable Unavailable Unavailable JUNITO TIGRE Unavailable [address] + [place] [address] R Unavailable Unavailable Unavailable TIGRE WILD Unavailable [address] + [place] [address] R Unavailable Unavailable Unavailable TIGRE WILD Unavailable [address] + [place] [address] R Unavailable Unavailable Unavailable TIGRE WILD Unavailable [address] + [place] [address] R Unavailable Unavailable Unavailable TIGRE WILD Unavailable [address] + [place] [address] R Unavailable Unavailable Unavailable TIGRE WILD Unavailable [address] + [place] [address] R Unavailable Unavailable Unavailable TIGRE WILD Unavailable [address] + [place] [address] R Unavailable Unavailable TIGRE Pace Unavailable [address] + [place] [address] R Unavailable Unavailable TIGRE Pace Unavailable [address] + [place] [address] R Unavailable Unavailable TIGRE Pace Unavailable [address] + [place] [address] R Unavailable Unavailable TIGRE Pcae Unavailable [address] + [place] [address] R Unavailable Unavailable TIGRE Pace Unavailable [address] + [place] [address] R Unavailable Unavailable TIGRE Pace Unavailable [address] + [place] [address] R Unavailable Unavailable TIGRE Pace Unavailable [address] + [place] [address] R Unavailable Unavailable Unavailable TIGRE WILD Unavailable [address] + [place] [address] R Unavailable Unavailable Unavailable TIGRE WILD Unavailable [address] + [place] [address] R Unavailable Unavailable Unavailable TIGRE WILD Unavailable [address] + [place] [address] R Unavailable Unavailable Unavailable TIGRE WILD Unavailable [address] + [place] [address] R Unavailable Unavailable Unavailable TIGRE WILD Unavailable [address] + [place] [address] R Unavailable Unavailable Unavailable JUNITO TIGRE Unavailable [address] + [place] [address] R Unavailable Unavailable TIGRE Pace Unavailable [address] + [place] [address] R Unavailable Unavailable TIGRE Pace Unavailable [address] + [place] [address] R Unavailable Unavailable TIGRE Pace Unavailable [address] + [place] [address] R Unavailable Unavailable Unavailable TIGRE WILD Unavailable [address] + [place] [address] R Unavailable Unavailable TIGRE Pace Unavailable [address] + [place] [address] R Unavailable Unavailable Iliana WILD TIGRE Unavailable [address] + [place] [address] R Unavailable Unavailable Iliana WILD TIGRE Unavailable [address] + [place] [address] R Unavailable Unavailable Iliana WILD TIGRE Unavailable [address] + [place] [address] R Unavailable Unavailable TIGRE Pace Unavailable [address] + [place] [address] R Unavailable Unavailable Iliana WILD TIGRE Unavailable [address] + [place] [address] R Unavailable Unavailable Iliana WILD TIGRE Unavailable [address] + [place] [address] R Unavailable Unavailable Iliana WILD TIGRE Unavailable [address] + [place] [address] R Unavailable Unavailable Unavailable TIGRE WILD Unavailable [address] + [place] [address] R Unavailable Unavailable Iliana WILD TIGRE Unavailable [address] [phone] [place] [address] R Unavailable Unavailable Unavailable JUNITO TIGRE Unavailable [address] + [place] [address] R Unavailable Unavailable Iliana WILD TIGRE Unavailable [address] [phone] [place] [address] R Unavailable Unavailable Iliana WILD TIGRE Unavailable [address] [phone] [place] [address] R Unavailable Unavailable TIGRE Pace Unavailable [address] [phone] [place] [address] R Unavailable Unavailable Iliana WILD TIGRE Unavailable [address] + [place] [address] R Unavailable Unavailable Iliana WILD TIGRE Unavailable [address] + [place] [address] R Unavailable Unavailable TIGRE Pace Unavailable [address] [phone] [place] [address] R Unavailable Unavailable Iliana WILD TIGRE Unavailable [address] [phone] [place] [address] R Unavailable Unavailable Iliana WILD TIGRE Unavailable [address] [phone] [place] [address] R Unavailable Unavailable Iliana WILD TIGRE Unavailable [address] [phone] [place] [address] R Unavailable Unavailable Iliana WILD TIGRE Unavailable [address] + [place] [address] R Unavailable Unavailable Iliana WILD TIGRE Unavailable [address] [phone] [place] [address] R Unavailable Unavailable Iliana WILD TIGRE Unavailable [address] [phone] [place] [address] R Unavailable Unavailable Iliana WILD TIGRE Unavailable [address] [phone] [place] [address] R Unavailable Unavailable Iliana WILD TIGRE Unavailable [address] [phone] [place] [address] R Unavailable Unavailable Iliana WILD TIGRE Unavailable [address] [phone] [place] [address] R Unavailable Unavailable Iliana WILD TIGRE Unavailable [address] [phone]~330-4 [place] [address] R Unavailable Unavailable Iliana WILD TIGRE Unavailable [address] [phone] [place] [address] R Unavailable Unavailable Iliana WILD TIGRE Unavailable [address] [phone] [place] [address] R Unavailable Unavailable Unavailable JUNITO TIGRE Unavailable [address] [phone] [place] [address] R Unavailable Unavailable Iliana WILD TIGRE Unavailable [address] [phone] [place] [address] R Unavailable Unavailable Iliana WILD TIGRE Unavailable [address] [phone] [place] [address] R Unavailable Unavailable Iliana WILD TIGRE Unavailable [address] [phone] [place] [address] R Unavailable Unavailable Iliana WILD TIGRE Unavailable [address] [phone] [place] [address] R Unavailable Unavailable Iliana WILD TIGRE Unavailable [address] [phone]~330-4 [place] [address] R Unavailable Unavailable Iliana TIGRE WILD Unavailable [address] [phone]~330-4 [place] [address] R Unavailable Unavailable Iliana WILD TIGRE Unavailable [address] [phone]~330-4 [place] [address] R Unavailable Unavailable Iliana WILD TIGRE Unavailable [address] [phone]~330-4 [place] [address] R Unavailable Unavailable Iliana WILD TIGRE Unavailable [address] [phone]~330-4 [place] [address] R Unavailable Unavailable Iliana TIGRE WILD Unavailable [address] [phone]~330-4 [place] [address] R Unavailable Unavailable Iliana WILD TIGRE Unavailable [address] [phone]~330-4 [place] [address] R Unavailable Unavailable Unavailable JUNITO TIGRE Unavailable [address] [phone]~330-4 [place] [address] R Unavailable Unavailable Iliana TIGRE WILD Unavailable [address] [phone]~330-4 [place] [address] R Unavailable Unavailable Iliana WILD TIGRE Unavailable [address] [phone]~330-4 [place] [address] R Unavailable Unavailable Iliana TIGRE WILD Unavailable [address] + [place] [address] R Unavailable Unavailable Unavailable TIGRE WILD Unavailable [address] + [place] [address] R Unavailable Unavailable Unavailable TIGRE WILD Unavailable [address] [phone]~330-4 [place] [address] R Unavailable Unavailable Unavailable Care Team Providers Name Role Phone JENNIFER IZQUIERDO Attending Unavailable PAULINE IZQUIERDOCA Haydee Attending Unavailable [facility], Aislinn Attending Unavailable Ciesa, Aislinn Referring Unavailable [...] Ciesa, Aislinn Primary Care Unavailable Kuenzler, Jennifer Referring Unavailable Kuenzler, Jennifer Attending Unavailable Kuenzler, Jennifer Referring Unavailable Ciesa, Aislinn Primary Care Unavailable Francisca Mejia Consulting Unavailable Kuenzler, Jennifer Attending Unavailable Kuenzler, [...] Jennifer Attending Unavailable Kuenzler, Jennifer [facility]erring [facility]available [facility] Unavailable Kuenzler, Jennifer Attending Unavailable Kuenzler, Jennifer Referring Unavailable [facility] Unavailable Kuenzler, Jennifer Attending Unavailable Kuenzler, Jennifer Referring Unavailable [facility] Unavailable Kuenzler, Jennifer Attending Unavailable Kuenzler, Jennifer Referring Unavailable [facility] Unavailable Kuenzler, Jennifer Attending Unavailable Kuenzler, Jennifer Referring Unavailable [facility] Unavailable Ciesa, Aislinn Attending Unavailable Ciesa, Aislinn Referring Unavailable [facility] Unavailable Kuenzler, Jennifer Attending Unavailable Kuenzler, Jennifer Referring Unavailable [facility] Unavailable Kuenzler, Jennifer Attending Unavailable Kuenzler, Jennifer Referring Unavailable [facility] Unavailable Kuenzler, Jennifer Attending Unavailable Kuenzler, Jennifer Referring Unavailable [facility] Unavailable Kuenzler, Jennifer Attending Unavailable Kuenzler, Jennifer Referring Unavailable [facility] Unavailable Kuenzler, Jennifer Attending Unavailable Kuenzler, Jennifer Referring Unavailable [facility] Unavailable Kuenzler, Jennifer Attending Unavailable Kuenzler, Jennifer Referring Unavailable [facility] Unavailable Kuenzler, Jennifer Attending Unavailable Kuenzler, Jennifer Referring Unavailable [facility] Unavailable Kuenzler, Jennifer Attending Unavailable Kuenzler, Jennifer Referring Unavailable [facility] Unavailable Kuenzler, Jennifer Attending Unavailable Kuenzler, Jennifer Referring Unavailable [facility] Unavailable Kuenzler, Jennifer Attending Unavailable Kuenzler, Jennifer Referring Unavailable [facility] Unavailable Kuenzler, Jennifer Attending Unavailable Kuenzler, Jennifer Referring Unavailable [facility] Unavailable Kuenzler, Jennifer Attending Unavailable Ciesa Aislinn Referring Unavailable [facility] Unavailable Kuenzler, Jennifer Attending Unavailable Kuenzler, Jennifer Referring Unavailable [facility] Unavailable Kuenzler, Jennifer Attending Unavailable Kuenzler, Jennifer Referring Unavailable [facility] Unavailable Kuenzler, Jennifer Attending Unavailable Kuenzler, Jennifer Referring Unavailable [facility] Unavailable Kuenzler, Jennifer Attending Unavailable Kuenzler, Jennifer Referring Unavailable [facility] Unavailable Kuenzler, Jennifer Attending Unavailable Kuenzler, Jennifer Referring Unavailable [facility] Unavailable Kuenzler, Jennifer Attending Unavailable Kuenzler, Jennifer Referring Unavailable [facility] Unavailable Kuenzler, Jennifer Attending Unavailable Kuenzler, Jennifer Referring Unavailable [facility] Unavailable Kuenzler, Jennifer Attending Unavailable Kuenzler, Jennifer Referring Unavailable [facility] Unavailable Danelle Myers Attending Unavailable Danelle Myers Referring Unavailable [facility] Unavailable Kuenzler, Jennifer Attending Unavailable Kuenzler, Jennifer Referring Unavailable [facility] Unavailable Kuenzler, Jennifer Attending Unavailable Kuenzler, Jennifer Referring Unavailable [facility] Unavailable Vaishnavi Dietz Attending Unavailable Vaishnavi Dietz Referring Unavailable [facility] Unavailable Vaishnavi Dietz Attending Unavailable Vaishnavi Dietz Referring Unavailable [facility] Unavailable Kuenzler, Jennifer Attending Unavailable Kuenzler, Jennifer Referring Unavailable [facility] Unavailable Kuenzler, Jennifer Attending Unavailable Kuenzler, Jennifer Referring Unavailable [facility] Unavailable Kuenzler, Jennifer Attending Unavailable Kuenzler, Jennifer Referring Unavailable [facility] Unavailable Kuenzler, Jennifer Attending Unavailable Kuenzler, Jennifer Referring Unavailable [facility] Unavailable Kuenzler, Jennifer Attending Unavailable Kuenzler, Jennifer Referring Unavailable [facility] Unavailable Kuenzler, Jennifer Attending Unavailable Kuenzler, Jennifer Referring Unavailable [facility] Unavailable Vaishnavi Dietz Attending Unavailable Johnneski, Vaishnavi Referring Unavailable [facility] Unavailable Kuenzler, Jennifer Attending Unavailable Kuenzler, Jennifer Referring Unavailable [facility] Unavailable Kuenzler, Jennifer Attending Unavailable Kuenzler, Jennifer Referring Unavailable [facility] Unavailable Kuenzler, Jennifer Attending Unavailable Kuenzler, Jennifer Referring Unavailable [facility] Unavailable Kuenzler, Jennifer Attending Unavailable Kuenzler, Jennifer Referring Unavailable [facility] Unavailable Kuenzler, Jennifer Attending Unavailable Kuenzler, Jennifer Referring Unavailable [facility] Unavailable Kuenzler, Jennifer Attending Unavailable Kuenzler, Jennifer Referring Unavailable [facility] Unavailable Kuenzler, Jennifer Attending Unavailable Kuenzler, Jennifer Referring Unavailable [facility] Un[facility] Attending Unavailable [facility] Referring Unavailable [facility] Unavailable [facility] Unavailable Kuenzler, Jennifer Attending Unavailable Kuenzler, Jennifer Referring Unavailable Kuenzler, Jennifer Attending Unavailable Kuenzler, Jennifer Referring Unavailable [facility] Unavailable Kuenzler, Jennifer Attending Unavailable Kuenzler, Jennifer Referring Unavailable [facility] Unavailable Kuenzler, Jennifer Attending Unavailable Kuenzler, Jennifer Referring Unavailable [facility] Unavailable Kuenzler, Jennifer Attending Unavailable Kuenzler, Jennifer [facility] Kuenzler, Jennifer Attending Unavailable Kuenzler, Jennifer Referring Unavailable [facility] Unavailable Kuenzler, Jennifer Attending Unavailable Kuenzler, Jennifer Referring Unavailable [facility] Unavailable Kuenzler, Jennifer Attending Unavailable Kuenzler, Jennifer Referring Unavailable [facility] Unavailable Kuenzler, Jennifer Attending Unavailable Kuenzler, Jennifer Referring Unavailable [facility] Unavailable Kuenzler, Jennifer Attending Unavailable Kuenzler, Jennifer Referring Unavailable [facility] Unavailable Kuenzler, Jennifer Attending Unavailable Kuenzler, Jennifer Referring Unavailable [facility] Unavailable Kuenzler, Jennifer Attending Unavailable Kuenzler, Jennifer Referring Unavailable [facility] Unavailable Kuenzler, Jennifer Attending Unavailable Kuenzler, Jennifer Referring Unavailable [facility] Unavailable Kuenzler, Jennifer Attending Unavailable Kuenzler, Jennifer Referring Unavailable [facility] Unavailable Kuenzler, Jennifer Attending Unavailable Kuenzler, Jennifer Referring Unavailable [facility] Unavailable Kuenzler, Jennifer Attending Unavailable Kuenzler, Jennifer Referring Unavailable [facility] Unavailable Kuenzler, Jennifer Attending Unavailable Kuenzler, Jennifer Referring Unavailable [facility] Unavailable Kuenzler, Jennifer Attending Unavailable Kuenzler, Jennifer Referring Unavailable [facility] Unavailable Kuenzler, Jennifer Attending Unavailable Kuenzler, Jennifer Referring Unavailable [facility] Unavailable Kuenzler, Jennifer Attending Unavailable Kuenzler, Jennifer Referring Unavailable [facility] Unavailable Kuenzler, Jennifer Attending Unavailable Kuenzler, Jennifer Referring Unavailable [facility] Unavailable Kuenzler, Jennifer Attending Unavailable Kuenzler, Jennifer Referring Unavailable [facility] Unavailable Kuenzler, Jennifer Attending Unavailable Kuenzler, Jennifer Referring Unavailable [facility] Unavailable Kuenzler, Jennifer Attending Unavailable Kuenzler, Jennifer Referring Unavailable [facility] Unavailable Kuenzler, Jennifer Attending Unavailable Kuenzler, Jennifer Referring Unavailable [facility] Unavailable Kuenzler, Jennifer Attending Unavailable Kuenzler, Jennifer Referring Unavailable [facility] Unavailable Kuenzler, Jennifer Attending Unavailable Kuenzler, Jennifer Referring Unavailable [facility] Unavailable Kuenzler, Jennifer Attending Unavailable Kuenzler, Jennifer Referring Unavailable [facility] Unavailable Kuenzler, Jennifer Attending Unavailable Kuenzler, Jennifer Referring Unavailable [facility] Unavailable Kuenzler, Jennifer Attending Unavailable Kuenzler, Jennifer Referring Unavailable [facility] Unavailable Kuenzler, Jennifer Attending Unavailable [facility] Unavailable Kuenzler, Jennifer Attending Unavailable [facility] Unavailable Kuenzler, Jennifer Attending Unavailable Kuenzler, Jennifer Referring Unavailable [facility] Aislinn Primary Care Unavailable Kuenzler, Jennifer Attending Unavailable [facility] Unavailable Kuenzler, Jennifer Attending Unavailable Kuenzler, Jennifer Referring [facility]available [facility] Unavailable Kuenzler, Jennifer Attending Unavailable Kuenzler, Jennifer Referring Unavailable [facility] Unavailable Kuenzler, Jennifer Attending Unavailable Kuenzler, Jennifer Referring Unavailable [facility] Unavailable Kuenzler, Jennifer Attending Unavailable Kuenzler, Jennifer Referring Unavailable [facility] Unavailable Kuenzler, Jennifer Attending Unavailable Kuenzler, Jennifer Referring Unavailable [facility] Primary Care Unavailable Kuenzler, Jennifer Attending Unavailable [facility] Referring Unavailable [facility] Primary Care Unavailable Kuenzler, Jennifer Attending Unavailable Kuenzler, Jennifer Referring Unavailable [facility] Primary Care Unavailable PROBLEMS PROBLEMS DATE TYPE CONDITION / CODE ATTENDING STATUS SOURCE Unknown M79.606 - Pain in leg, Mitra, Active [place] [facility] unspecified / [facility] M79.606(ICD-10) Hospital Repository Unknown R53.83 - Other fatigue / Kuenzler, Active [place] 8 R53.83(ICD-10) [facility] Hospital Repository Unknown 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, 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 E71.314(ICD-10) Unknown N39.0 - Urinary tract Vaishnavi Dietz Active [place] [facility] infection, site not Community specified / N39.0(ICD-10) Hospital Repository Unknown 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 O: BP 139/56 Pulse 62 Resp 18 [...] post anticipated vacation and send script to [facility] in [place], [place] for infusions while she is there ([phone]). Follow up in 6 months. Jennifer Izquierdo MD CNOV Observed: 05/31/2018 Status: COMPLETED Source: [place] 10:40 AM [facility] REPOSITORY Office Visit (NENMMN) FELIX IWLD ([id number]) 1950 F Date Time Provider Department 05/31/18 10:40 AM JENNIFER IZQUIERDO NECLARITA During your visit today, we recorded the [...] is also going to be away on [place] and would like to be able to get infusions there again like last year (fax [phone]). O: BP 139/56 Pulse 62 Resp 18 [...] post anticipated vacation and send script to [facility] in [place], [place] for infusions while she is there ([phone]). Follow up in 6 months. MD Jennifer Marlow MD 05/31/2018 12:29 PM Signed Addended by: JENNIFER IZQUIERDO MD on: 05/31/2018 12:29 PM Modules accepted: Orders Referring Provider: SELF [200] Allergies As of Date: 05/31/2018 Noted Allergy Reaction OXYCODONE HCL 12/24/2016 14 - Other: See Comments METOCLOPRAMIDE 09/11/2002 Comments: elvira mena (PENTAZOCINE) 03/13/2004 14 - Other: See Comments Comments: Nervous and passed out Date Reviewed: 05/31/2018 Reviewed by: Gege Blunt Ma - Fully Assessed Reason for Visit: [...] 05/31/2018 Noted Resolved Myalgia and myositis, unspecified [UAW1023] INVALID FOR*03/11/2016 ANXIETY STATE NOS [F41.1] INVALID [...] for discontinue is not on file. Coenzyme S28-Utdxmfj E (COQ10 SG 100* 0 12/10/2011 05/31/2018 [...] Recorded Letter Text Jennifer Izquierdo MD Neu[facility] [place] [address] [phone] , ext [phone] PRESCRIPTION SPECIFICS: NAME: Felix Wild DATE: 05/31/2018 ADDRESS: [address] [place] [address] PHONE: [phone] (home) : 1950 PRESCRIPTION: Carnitine IV infusion ? 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) Jennifer Izquierdo MD Encounter Status:Closed by JENNIFER IZQUIERDO MD on 05/31/18 VENOUS DUPLEX LOWER Observed: 05/12/2018 Status: F Source: [place] EXTREMITY 1:42 PM [facility] REPOSITORY [facility] Cardiovascular Services [address] [place], [place] [address] [place] [address] Venous Duplex US, Unilateral 05/10/18 1256 MR#: [id number] Acct: [id number] Name: FELIX WILD Rep #: [id number] : 1950 67 From: Anthony Washburn MD Attending Dr: Aislinn Espinal NP Status: REG CLI Ordering Dr: Aislinn Espinal FAN BALANCER-C Date: 05/10/18 Location: [facility] Sex: F C [...] Dictated: 05/10/18 1256 Date Transcribed: 05/12/[address] Driver: Signed MAGNESIUM Collected: 05/11/2018 Status: F Source: [place] 9:56 AM [facility] REPOSITORY TYPE CODE TESTS RESULT OUT OF RANGE REFERENCE UNITS LAB L501.5200 1.6-2.6 mg/dL Normal MG 2.1 Performed By: #### L501.5200, L506.0500 #### [facility] [address] [place], [address] PREALBUMIN Collected: 05/11/2018 Status: F Source: [place] 9:56 AM [facility] REPOSITORY TYPE CODE TESTS RESULT OUT OF REFERENCE UNITS RANGE LAB L506.0500 20.0-40.0 mg/dL Low PREALBUMIN 19.2 Performed By: #### L501.5200, L506.0500 #### [facility] [address] [place], [address] BNP,B-TYPE NATRIURETIC Collected: 05/11/2018 Status: F Source: [place] PEPT[place] 9:56 AM [facility] REPOSITORY TYPE CODE TESTS RESULT OUT OF RANGE REFERENCE UNITS LAB L503.6620 0-100 pg/mL High B-TYPE 147.4 FATOUMATA PEP Performed By: #### L503.6620 #### [facility] [address] [place], [address] COMPREHENSIVE METABOLIC Collected: 05/06/2018 Status: F Source: [place] PROFIL 2:04 PM [facility] REPOSITORY TYPE CODE TESTS RESULT OUT OF [...] GAP 5 Performed By: #### L500.4050 #### [facility] [address] [facility] [place], [place], [address] CBC W/DIFF, AUTOMATED Collected: 05/06/2018 Status: F Source: [place] 2:04 PM [facility] REPOSITORY TYPE CODE TESTS RESULT OUT OF [...] Lymph 1.95 Performed By: #### L100.0100 #### [facility] [address] [place], [place], [address] CBC W/DIFF, AUTOMATED Collected: 05/03/2018 Status: F Source: [place] 11:32 AM [facility] REPOSITORY TYPE CODE TESTS RESULT OUT OF [...] Lymph 1.39 Performed By: #### L100.0100 #### [facility] [address] [place], [address] COMPREHENSIVE METABOLIC Collected: 05/03/2018 Status: F Source: [place] 11:32 AM [facility] REPOSITORY Order Comment: Comments: TSH TYPE CODE [...] 6 Performed By: #### L500.4050, L501.9520 #### [facility] [address] [place], [address] THYROID STIM HORMONE Collected: 05/03/2018 Status: F Source: [place] (TSH) 11:32 AM [facility] REPOSITORY Order Comment: Comments: TSH TYPE CODE TESTS RESULT OUT OF RANGE REFERENCE UNITS LAB L501.9520 0.358-3.74 uIU/mL Normal TSH 1.47 Performed By: #### L500.4050, L501.9520 #### [facility] [address] [place], [address] VITAMIN B12 Collected: 03/10/2018 Status: F Source: [place] 2:51 PM [facility] REPOSITORY TYPE CODE TESTS RESULT OUT OF REFERENCE UNITS RANGE LAB L503.0105 211-911 pg/mL High Vitamin B12 > 2000 Performed By: #### L503.0105 #### [facility] [address] [place], [address] CBC W/DIFF, AUTOMATED Collected: 02/08/2018 Status: F Source: [place] 3:11 PM [facility] REPOSITORY TYPE CODE TESTS RESULT OUT OF [...] Lymph 1.66 Performed By: #### L100.0100 #### [facility] [address] [facility]. [place], [place], [address] COMPREHENSIVE METABOLIC Collected: 02/08/2018 Status: F Source: [facility] 3:11 PM [facility] REPOSITORY TYPE CODE TESTS RESULT OUT OF [...] GAP 8 Performed By: #### L500.4050 #### [facility] [address] [facility] [place], [address] OPERATIVE REPORT Observed: 01/25/2018 Status: F Source: [place] 12:57 PM [facility] REPOSITORY [facility] Medical Records Department [address] [place] [address] Operative Report 01/25/18 1254 MR#: [id number] Acct: [id number] Name: FELIX WILD Rep #: [id number] : 1950 67 From: Vaishnavi Dietz MD PCP: Aislinn Espinal NP Status: REG SDC Y Location: [address] Problem List (1) Urinary tract infection Status: Acute Report of Operation Date of Procedure: 01/25/18 Pre-Operative Diagnosis: urinary tract infection, pelvic pain Post-Operative Diagnosis: same and rectocele Surgery/Procedure Performed:: cystoscopy and pelvic exam under anesthesia Description of Surgical Findings:: normal cystoscopy. very short anterior vaginal wall. grade 3 rectocele. atrophy. chief nurse executive: Vaishnavi Dietz Type of Anesthesia:: MAC Specimen's [...] Date Vaishnavi Dietz MD CC: Aislinn Espinal FAN BALANCER; Vaishnavi Dietz MD Signed DISCHARGE INSTRUCTION Observed: 01/25/2018 Status: F Source: [place] 12:30 PM [facility] REPOSITORY [facility] Medical Records Department [address] [place] [address] Instructions for Home/Discharge Instructions 01/25/18 1228 MR#: [id number] Acct: [id number] Name: FELIX WILD Rep #: [id number] : 1950 67 From: Vaishnavi Dietz MD [...] DAILY 05/23/13 Triamcinolone Acetonide [Nasacort Aq Nasal [place]] 2 spray NASAL DAILY PRN 05/23/13 Levocarnitine [...] Date Vaishnavi Dietz MD CC: Aislinn Espinal FAN BALANCER URINALYSIS, COMPLETE Collected: 01/18/2018 Status: F Source: [place] 2:47 PM [facility] REPOSITORY Order Comment: How was Urine Obtained? [...] URINE SEEN Performed By: #### L400.0001 #### [facility] [place], [address] Observed: 01/18/2018 Status: F Source: [place] CULTURE, URINE 2:47 PM [facility] REPOSITORY Urine Culture ORGANISM 1: Mixed Gram Pos AND Gram Neg Org Marcell Count 50,000-80,000 MIX CULTURE Mixed contaminants. Submit a new specimen if indicated. Performed By: #### M100.0650 #### [facility] [address] [place], [address] KIDNEY AND BLADDER Observed: 01/17/2018 Status: F Source: [place] 1:57 PM [facility] REPOSITORY [facility] Imaging Services [address] [place] [address] Kidney and Bladder MR#: [id number] Acct: [id number] Name: FELIX WILD Rep #: [id number] : 1950 F 67 From: Tee Weems PCP: Aislinn Espinal NP Status: REG CLI Study: Kidney and Bladder Date of Exam: 01/17/18 Exam# [id number] Ordering Dr: Vaishnavi Dietz MD STUDY: RENAL [...] CC: Aislinn Espinal NP; Vaishnavi Dietz MD City Route Driver: Signed TRANSVAGINAL Observed: 12/29/2017 Status: F Source: [place] NON- 1:42 PM [facility] REPOSITORY [facility] Imaging Services [address] [place] [address] Transvaginal Non- MR#: [id number] Acct: [id number] Name: FELIX WILD Rep #: [id number] : 1950 F 67 From: Jacky Hanson MD PCP: Aislinn Espinal NP Status: REG CLI Study: Transvaginal Non- Date of Exam: 12/29/17 Exam# [id number] Ordering Dr: Vaishnavi Dietz MD STUDY: ULTRASOUND [...] CC: Aislinn Espinal NP; Vaishnavi Dietz MD City Route Driver: Signed DOWNTIME REPORT Observed: 12/09/2017 Status: F Source: [place] 12:10 PM [facility] Medical Records Department [address] [place] [address] Downtime Report MR#: [id number] Acct: [id number] Name: FELIX WILD Rep #: [id number] : 1950 67 From: Elmer Braden PCP: Aislinn Espinal NP Status: REG CLI This patient was seen during an EMR downtime November 22, 2017 - November 29, 2017. This patient may have a combination of paper and electronic documentation or all paper documentation. All documentation is viewable within the e-chart portion of [employer] for each patient visit. DOWNTIME REPORT Observed: 12/09/2017 Status: F Source: [place] 12:09 PM [facility] Medical Records Department [address] [place] [address] Downtime Report MR#: [id number] Acct: [id number] Name: FELIX WILD Rep #: [id number] : 1950 67 From: Elmer Braden PCP: Aislinn Espinal NP Status: REG CLI This patient was seen during an EMR downtime November 22, 2017 - November 29, 2017. This patient may have a combination of paper and electronic documentation or all paper documentation. All documentation is viewable within the e-chart portion of [employer] for each patient visit. FOOT MIN 3 VIEWS Observed: 12/03/2017 Status: F Source: [place] 12:37 PM [facility] REPOSITORY [facility] Imaging Services [address] [place] [address] Foot min 3 Views MR#: [id number] Acct: [id number] Name: FELIX WILD Rep #: [id number] : 1950 F 67 From: Yahir Wolfe MD PCP: Aislinn Espinal NP Status: REG CLI Study: Foot min 3 Views Date of Exam: 12/03/17 Exam# [id number] Ordering Dr: Aislinn Espinal STUDY: X-RAY - [...] Service support , CC: Aislinn Espinal NP City Route Driver: Signed PROGRESS Observed: 12/01/2017 Status: COMPLETED Source: [place] 3:16 PM [facility] [place] REPOSITORY HNO ID: [id number] Author: Jennifer Izquierdo Service: (none) Author Type: [...] She was been seen by PCP and rn gynecology and has referred to urology but has [...] MD CNOV Observed: 12/01/2017 Status: COMPLETED Source: [place] 2:40 PM [facility] REPOSITORY Office Visit (NENMMN) FELIX WILD ([id number]) 1950 F Date Time Provider Department 12/01/17 [...] She was been seen by PCP and rn gynecology and has referred to urology but has [...] 12/01/2017 Noted Allergy Reaction METOCLOPRAMIDE 09/11/2002 Comments: regelvira mcnair (PENTAZOCINE) 03/13/2004 14 - Other: See Comments [...] 1 capsule by mouth once * COENZYME U59-QKKCNWH E 100 MG* Take by mouth. FLUTICASONE 100 MCG-SALMETERO* Inhale 1 Puff as instructed t* MULTIVITAMIN TABLET Take one(1) tablet daily. ALIGN 4 MG CAPSULE Take one(1) tablet daily. SULINDAC 150 MG TABLET Take one(1) tablet two(2) cherry* ALBUTEROL SULFATE HFA 90 MCG/* Use 2 puffs every 4 hours as * Problem List As Of Date 12/01/2017 Noted Resolved Myalgia and myositis, unspecified [MJM0675] INVALID FOR*03/11/2016 ANXIETY STATE NOS [F41.1] INVALID [...] Recorded Letter Text Jennifer Izquierdo MD [facility] [place] [address] [place] [address] [phone] , ext [phone] PRESCRIPTION SPECIFICS: NAME: Felix Wild DATE: 12/01/2017 ADDRESS: [address] [place] [address] PHONE: [phone] (home) : 1950 PRESCRIPTION: Carnitine IV infusion [...] [place] 2:40 PM [facility] REPOSITORY Order Comment: 46 TYPE CODE TESTS RESULT OUT OF RANGE REFERENCE UNITS LAB L501.3620 26-192 U/L Normal CPK TOTAL 68 Performed By: #### L501.3620 #### [facility] [address] [place], [address] URINALYSIS, ROUTINE Collected: 11/16/2017 Status: F Source: [place] (DIPSTICK) 11:12 AM [facility] REPOSITORY Order Comment: How was Urine Obtained? [...] High LEUK ESTERASE 500 Performed By: #### L400.2011 #### [facility] [address] [place], [address] Observed: 11/16/2017 Status: F Source: [place] CULTURE, URINE 11:12 AM [facility] REPOSITORY Urine Culture ORGANISM 1: Escherichia coli Marcell Count >100,000 Escherichia coli: REACTION Amoxacillin/Clavulanic Acid [...] <=20 S (NF) indicates non-formulary drug at [facility]. Approval by Infectious Disease Specialist required before non-formulary drugs may be ordered and/or dispensed. Performed By: #### M100.0650 #### [facility] [address] [place], [address] CBC W/DIFF, AUTOMATED Collected: 08/12/2017 Status: F Source: [place] 10:15 AM [facility] REPOSITORY TYPE CODE TESTS RESULT OUT OF [...] Lymph 1.50 Performed By: #### L100.0100 #### [facility] [address] [place], [address] COMPREHENSIVE METABOLIC Collected: 08/12/2017 Status: F Source: [place] [facility] 10:15 AM [facility] REPOSITORY TYPE CODE TESTS RESULT OUT OF [...] GAP 7 Performed By: #### L500.4050 #### [facility] [address] [place], [address] ALLERGIES ALLERGIES DATE TYPE / NAME / CODE REACTION SEVERITY SOURCE CODE 07/08/2018 Drug pentazocine Unknown Unknown [place] Allergy/41 lactate/[id number](R [facility] 07/08/2018 Drug pentazocine/[id number] Unknown Unknown [place] Allergy/41 83(RXNORM) [facility] 2238759([facility]) Repository 07/08/2018 Drug metoclopramide/F0060 Other Unknown [place] Allergy/41 25756(RXNORM) [facility] 8798202([facility]) Repository 03/13/2004 DRUG PENTAZOCINE OTHER: SEE C [address] [id number]([facility]) 09/11/2002 DRUG METOCLOPRAMIDE [address] 5660905([facility]) ENCOUNTERS ENCOUNTERS ADMIT/DISCHARGE ACCOUNT ADMITTING ENCOUNTER LOCATION SOURCE NUMBER CLASS 07/08/2018 [id number] [facility] ing:MEDOUTP Repository 07/06/2018 [id number] [facility] ing:MEDOUTP Repository 07/04/2018 [id number] [facility] ing:[facility] Repository 07/01/2018 [id number] [facility] ing:[facility]OUTP Repository 06/29/2018 [id number] [facility] ing:[facility]P Repository 06/24/2018 [id number] [facility] ing:MEDOUTP Repository 06/20/2018 [id number] [facility] Repository 06/17/2018 [id number] [facility] Repository 06/13/2018 [id number] [facility] Repository 06/10/2018 [id number] [facility] Repository 06/09/2018 [id number] [facility] Repository 06/07/2018 [id number] [facility] Repository 06/03/2018 [id number] [facility] Repository 06/01/2018 [id number] [facility] Repository 05/31/2018/05/31/20 [id number] Ambulatory [address] Repository 05/27/2018 [id number] [facility] Repository 05/24/2018 [id number] Ambulatory Building:[facility] Repository 05/24/2018 [id number] Ambulatory [facility] ing:MED[facility]P Repository 05/20/2018 [id number] [facility] Repository 05/17/2018 [id number] [facility] Repository 05/13/2018 [id number] [facility] Repository 05/11/2018 [id number] [facility] [place] [facility] Repository 05/10/2018 [id number] [facility] Repository 05/06/2018 [id number] [facility] Repository 05/03/2018 [id number] [facility] Repository 04/29/2018 [id number] [place] [facility] ing:[facility]P Repository 04/27/2018 [id number] [place] [facility] ing:[facility]P Repository 04/22/2018 [id number] Ambulatory [place] [facility] ing:[facility]P Repository 04/19/2018 [id number] [place] [facility] ing:[facility]P Repository 04/15/2018 [id number] [place] [facility] ing:[facility]P Repository 04/13/2018 [id number] Ambulatory [place] [facility] ing:[facility]P Repository 04/08/2018 [id number] [facility] [place] [facility] ing:[facility]P Repository 04/05/2018 [id number] [facility] [facility] ing:[facility]P Repository 04/01/2018 [id number] [place] [facility] ing:MED[facility]P Repository 03/30/2018 [id number] [place] [facility] ing:[facility]P Repository 03/25/2018 [id number] [place] [facility] ing:[facility]P Repository 03/22/2018 [id number] [place] [facility] ing:[facility]P Repository 03/18/2018 [id number] Ambulatory [place] [facility] ing:[facility]P Repository 03/15/2018 [id number] [facility] [place] [facility] ing:[facility]P Repository 03/10/2018 [id number] [place] [facility] ing:MED[facility]P Repository 03/08/2018 [id number] Ambulatory [place] [facility] ing:MED[facility]P Repository 03/01/2018 [id number] Ambulatory [place] [facility] ing:MED[facility]P Repository 02/25/2018 [id number] Ambulatory [place] [facility] ing:MED[facility]P Repository 02/23/2018 [id number] [facility] [facility] Repository 02/18/2018 [id number] [facility] [place] [facility] Repository 02/15/2018 [id number] [facility] [place] [facility] Repository 02/11/2018 [id number] [facility] [facility] ing:MED[facility]P Repository 02/08/2018 [id number] [facility] [place] [facility] Repository 02/07/2018 [id number] [facility] [place] [facility] Repository 02/02/2018 [id number] [facility] Repository 01/28/2018 [id number] [facility] [place] [facility] Repository 01/25/2018/01/26/20 [id number] [place] [address] [place] [address] [facility] ing:[facility]P Repository 01/21/2018 [id number] [facility] Repository 01/18/2018 [id number] [facility] Repository 01/17/2018 [id number] [facility] [place] [facility] Repository 01/14/2018 [id number] Ambulatory [place] [facility] ing:[facility]P Repository 01/11/2018 [id number] [place] [facility] ing:MED[facility]P Repository 01/07/2018 [id number] [facility] Repository 01/04/2018 [id number] [facility] [place] [facility] Repository 12/31/2017 [id number] [facility] [place] [facility] Repository 12/29/2017 [id number] [place] [facility] ing:[place] Repository 12/28/2017 [id number] [place] [facility] ing:MED[facility]P Repository 12/23/2017 [id number] [place] [facility] ing:MED[facility]P Repository 12/21/2017 [id number] Ambulatory [facility]ae Tae [facility] ing:MEDOUTP Repository 12/17/2017 [id number] Ambulatory [place] [facility] ing:MEDOUTP Repository 12/14/2017 [id number] Ambulatory [place] [facility] ing:MEDOUTP Repository 12/10/2017 [id number] Ambulatory [place] [facility] ing:MEDOUTP Repository 12/07/2017 [id number] Ambulatory [place] [facility] ing:MEDOUTP Repository 12/03/2017 [id number] Ambulatory [place] [facility] 12/03/2017 [id number] Ambulatory [place] [facility] ing:MEDOUTP Repository 12/01/2017/12/02/19 [id number] Ambulatory [address] Repository 11/30/2017 [id number] Ambulatory [place] [facility] ing:MEDOUTP Repository 11/26/2017 [id number] Ambulatory [place] [facility] ing:MEDOUTP Repository 11/23/2017 [id number] Ambulatory [place] [facility] ing:MEDOUTP Repository 11/19/2017 [id number] Ambulatory [facility] T[facility] ing:MEDOUTP Repository 11/16/2017 [id number] Ambulatory [facility] [facility] [facility] ing:MEDOUTP Repository 11/12/2017 [id number] Ambulatory [place] [facility] ing:MEDOUTP Repository 11/10/2017 [id number] Ambulatory [place] [facility] ing:MEDOUTP Repository 11/04/2017 [id number] Ambulatory [place] [facility] ing:MEDOUTP Repository 11/02/2017 [id number] Ambulatory [place] [facility] ing:MEDOUTP Repository 10/29/2017 [id number] Ambulatory Ate Tae [facility] ing:MEDOUTP Repository 10/26/2017 [id number] Ambulatory [place] [facility] ing:MEDOUTP Repository 10/22/2017 [id number] Ambulatory Tae Tae [facility] ing:MEDOUTP Repository 10/19/2017 [id number] Ambulatory [place] [facility] ing:MEDOUTP Repository 10/15/2017 [id number] Ambulatory [place] [facility] ing:MEDOUTP Repository 10/12/2017 [id number] Ambulatory [place] [facility] ing:MEDOUTP Repository 10/08/2017 [id number] Ambulatory [facility] T[facility] ing:MEDOUTP Repository 10/05/2017 [id number] Ambulatory [place] [facility] ing:MEDOUTP Repository 10/01/2017 [id number] Ambulatory [place] [facility] ing:MEDOUTP Repository 09/28/2017 [id number] Ambulatory [place] [facility] ing:MEDOUTP Repository 09/28/2017 [id number] Ambulatory [place] [facility] ing:MEDOUTP Repository 09/24/2017 [id number] Ambulatory [place] [facility] ing:MEDOUTP Repository 09/21/2017 [id number] Ambulatory [place] [facility] ing:MEDOUTP Repository 09/17/2017 [id number] Ambulatory [place] [facility] ing:MEDOUTP Repository 09/14/2017 [id number] Ambulatory [place] [facility] ing:MEDOUTP Repository 09/10/2017 [id number] Ambulatory [place] [facility] ing:MEDOUTP Repository 09/07/2017 [id number] Ambulatory [place] T[place] [facility] ing:MEDOUTP Repository 09/03/2017 [id number] Ambulatory [place] [facility] ing:MEDOUTP Repository 09/01/2017 [id number] Ambulatory [facility] ing:MEDOUTP Repository 08/27/2017 [id number] Ambulatory [facility] ing:MEDOUTP Repository 08/24/2017 [id number] Ambulatory [facility] ing:MEDOUTP Repository 08/20/2017 [id number] Ambulatory [facility] ing:MEDOUTP Repository 08/17/2017 [id number] Ambulatory [facility] ing:MEDOUTP Repository 08/13/2017 [id number] Ambulatory [facility] ing:MEDOUTP Repository 08/12/2017 [id number] Ambulatory [facility] ing:MEDOUTP Repository PAYERS PAYERS ENCOUNTER GUARANTOR PAYER SUBSCRIBER SOURCE 07/08/2018 TIGRE Thapa Primary FELIX WILDDOB: [place] [id number] JASMYN Insurance:MEDICARE [id number] Hospital [address]201Qzn: (330) Number: Repository [phone] () [id number] Date:2018-07-01 07/08/2018 Secondary FELIX LOBATOB: Tae Insurance:[facility] [id number] Community y Number: [facility] [id number] Repository Date:5241-13-74OF[address] [address]MG: 07/08/2018 Tertiary NOT GIVENUNK Tae Insurance:SELF PAY [facility] Number: Effective Repository Date:2018-07-01 07/06/2018 TIGRE Thapa Primary FELIX Thapa HALLDOB: Tae [id number] JASMYN Insurance:MEDICARE [id number] Doctors Hospital 82895Ukc: (330) Number: Repository [phone] () [id number] Date:2018-07-01 07/06/2018 Secondary FELIX LOBATOB: [place] Insurance:[facility] [id number] Community y Number: [facility] [id number] Repository Date:9054-43-96QF [address]LPVHJGX, [place] [address]XS: 07/06/2018 Tertiary NOT GIVENUNK Tae Insurance:SELF PAY [facility]: Effective Repository Date:2018-07-01 07/04/2018 TIGRE Thapa Primary FELIX J HALLDOB: Tae [id number] JASMYN Insurance:MEDICARE [id number] [facility] [address]Vxs: (330) Number: Repository [phone] () [id number] Date:2018-07-01 07/04/2018 Secondary FELIX J JUNITODOB: Tae Insurance:ANTHEMPolic [id number] Community y Number: Hospital [id number] Repository Date:9876-37-35PS [address], [place] [address]MS: 07/04/2018 Tertiary NOT GIVENUNK Tae Insurance:SELF PAY [facility] Number: Effective Repository Date:2018-07-01 07/01/2018 TIGRE Thapa Primary FELIX J HALLDOB: Tae [id number] JASMYN Insurance:MEDICARE [id number] Doctors' Hospital [facility] [facility] 74652Wvt: (330) Number: Repository [phone] () [id number] Date:2018-06-24 07/01/2018 Secondary FELIX J JUNITODOB: [place] Insurance:[facility]MPira [facility] [id number] Community y Number: Hospital [id number] Repository Date:1999-96-10IS [address]ZSKWWTR, [place] [address]QK: 07/01/2018 Tertiary NOT GIVENUNK Tae Insurance:SELF PAY [facility] Number: Effective Repository Date:2018-06-24 06/29/2018 KASH Primary FELIX J HALLDOB: [place] [id number] JASMYN Insurance:MEDICARE [id number] Doctors Hospital 75424Ebc: (330) Number: Repository [phone] () [id number] Date:2018-06-24 06/29/2018 Secondary FELIX J HALLDOB: [place] Insurance:ANTHEMPolic [id number] Community y Number: Hospital [id number] Repository Date:4715-61-01MU [address] [place] [address]YM: 06/29/2018 Tertiary NOT GIVENUNK [place] Insurance:SELF PAY [facility] Number: Effective Repository Date:2018-06-24 06/24/2018 TIGRE Thapa Primary FELIX J HALLDOB: [place] [id number] JASMYN Insurance:MEDICARE [id number] Doctors Hospital [address]Idi: (330) Number: Repository [phone] () [id number] Date:2018-06-17 06/24/2018 Secondary FELIX J JUNITODOB: Tae Insurance:ANTHEMPolic [id number] Community y Number: Hospital [id number] Repository Date:5147-08-08WG [address]FNSFRYX, [place] [address]US: 06/24/2018 Tertiary NOT GIVENUNK Tae Insurance:SELF PAY [facility] Number: Effective Repository Date:2018-06-17 06/20/2018 TIGRE Thapa Primary FELIX J HALLDOB: T[place] [id number] JASMYN Insurance:MEDICARE [id number] Doctors Hospital 47215Fft: (330) Number: Repository [phone] () [id number] Date:2018-06-17 06/20/2018 Secondary FELIX J HALLDOB: Tae Insurance:ANTHEMPolic [id number] Community y Number: Hospital [id number] Repository Date:0514-44-95CC [address]MTUZWWF, [place] [address]UH: 06/20/2018 Tertiary NOT GIVENUNK [place] Insurance:SELF PAY [facility] Number: Effective Repository Date:2018-06-17 06/17/2018 TIGRE Thapa Primary FELIX J HALLDOB: T[place] [id number] JASMYN Insurance:MEDICARE [id number] [facility] [address]Ese: (330) Number: Repository [phone] () [id number] Date:2018-06-16 06/17/2018 Secondary FELIX J HALLDOB: Tae Insurance:ANTHEMPolic [id number] Community y Number: Hospital [id number] Repository Date:0837-61-59JG [address] [place] [address]UV: 06/17/2018 Tertiary NOT GIVENUNK [place] Insurance:SELF PAY [facility] Number: Effective Repository Date:2018-06-16 06/13/2018 TIGRE Thapa Primary FELIX J HALLDOB: [place] [id number] JASMYN Insurance:MEDICARE [id number] [facility] 08998Efw: (330) Number: Repository [phone] () [id number] Date:2018-06-13 06/13/2018 Secondary FELIX J HALLDOB: [place] Insurance:ANTHEMPolic [id number] Community y Number: Hospital [id number] Repository Date:0574-92-70CL [address] [place] [address] 96[address]HT: 06/13/2018 Tertiary NOT GIVENUNK Tae Insurance:SELF PAY [facility] Number: Effective Repository Date:2018-06-13 06/10/2018 KASH Primary FELIX J HALLDOB: [place] [id number] JASMYN Insurance:MEDICARE [id number] Doctors' Hospital [place] [facility] [address]3892Wic: (330) Number: Repository [phone] () [id number] Date:2018-06-03 06/10/2018 Secondary FELIX J HALLDOB: Tae Insurance:ANTHEMPolic [id number] Community y Number: Hospital [id number] Repository Date:6745-98-11KX [address] [place] [address] 749[address]NL: 06/10/2018 Tertiary NOT GIVENUNK [place] Insurance:SELF PAY [facility] Number: Effective Repository Date:2018-06-03 06/09/2018 TIGRE Thapa Primary FELIX J HALLDOB: [place] [id number] JASMYN Insurance:MEDICARE [id number] [facility] 88073Jgk: (330) Number: Repository [phone] () [id number] Date:2018-06-07 06/09/2018 Secondary FELIX J HALLDOB: Tae Insurance:ANTHEMPolic [id number] Community y Number: Hospital [id number] Repository Date:8886-80-84CS [address] [place] [address] 323[address]EI: 06/09/2018 Tertiary NOT GIVENUNK Tae Insurance:SELF PAY [facility] Number: Effective Repository Date:2018-06-07 06/07/2018 TIGRE Thapa Primary FELIX J HALLDOB: T[place] [id number] JASMYN Insurance:MEDICARE [id number] [facility] 94692Tre: (330) Number: Repository [phone] () [id number] Date:2018-06-03 06/07/2018 Secondary FELIX J HALLDOB: [place] Insurance:ANTHEMPolic [id number] Community y Number: Hospital [id number] Repository Date:3510-26-30JJ [address] [place] [address] 716[address]FF: 06/07/2018 Tertiary NOT GIVENUNK [place] Insurance:SELF PAY [facility] Number: Effective Repository Date:2018-06-03 06/03/2018 TIGRE Thapa Primary FELIX J HALLDOB: [place] [id number] JASMYN Insurance:MEDICARE [id number] [facility] 380[address]Rhr: (330) Number: Repository [phone] () [id number] Date:2018-05-27 06/03/2018 Secondary FELIX J JUNITODOB: Tae Insurance:ANTHEMPolic [id number] [facility] y Number: Hospital [id number] Repository Date:9391-77-86DE [address] [place] [address] 16714TI: 06/03/2018 Tertiary NOT GIVENUNK Tae Insurance:SELF PAY [facility] Number: Effective Repository Date:2018-05-27 06/01/2018 KASH Primary FLEIX J HALLDOB: [place] [id number] JASMYN Insurance:MEDICARE [id number] [facility] 63157Wgm: (330) Number: Repository [phone] () [id number] Date:2018-05-27 06/01/2018 Secondary FELIX Alanis WILDDOB: Tae Insurance:ANTHEMPolic [id number] [facility] y Number: Hospital [id number] Repository Date:3355-86-73MK [address], [place] [address]KP: 06/01/2018 Tertiary NOT GIVENUNK Tae Insurance:SELF PAY [facility] Number: Effective Repository Date:2018-05-27 05/27/2018 KASH Primary FELIX J JUNITODOB: T[place] [id number] JASMYN Insurance:MEDICARE [id number] [place] [facility] [address]Ogf: (330) Number: Repository [phone] () [id number] Date:2018-05-23 05/27/2018 Secondary FELIX J HALLDOB: [place] Insurance:ANTHEMPolic [id number] [facility] y Number: Hospital [id number] Repository Date:5587-97-33YN [address] [place] [address]24[address]YU: 05/27/2018 Tertiary NOT GIVENUNK Tae Insurance:SELF PAY [facility] Number: Effective Repository Date:2018-05-23 05/24/2018 Felix LobatoB: Primary Felix J JunitoDOB: OHIP Practices Insurance:MedicarePol [id number] Repository Jasmyn icy Number: [address] [place] [place] [place] [id number] [place] [address]Mso: (330) Date:8020-41-73Mwdf 27[address]Kug: Name:LEAD SETTER [phone] (HP) (HP)Tel: (287) [id number], [place] [phone] () 9[address]IC: 05/24/2018 Secondary Felix LobatoB: [place]IP Practices Insurance:[place]/Supp [id number] Repository lementPolicy Number: 6 Jasmyn [id number] [place], [place] Date:6092-10-33Pdfx 722[address]Ylg: Name:[address] [place] [address] (HP) [id number]: 05/24/2018 Tertiary Felix LobatoB: [place]IP Practices Insurance:AultcarePol [id number] Repository icy Number: 6 Jasmyn [id number] [place] [address]Effective [address]Fcy: Date:2008-02-20 - ~(3 0886-81-52Sxav 30 (HP) Name:[facility] [address], [place] [address]SG: 05/24/2018 [facility] OHIP Practices Insurance:[place] [id number] Repository /BSPolicy Number: Jasmyn [id number] [place], [place] Date: - [address]Ovz: (021) 8042-01-11Hxba [phone] (HP) Name:[address]Ujvdgzp, [place] [address]WJ: 05/24/2018 TIGRE Thapa [facility] FELIX LOBATOB: Tae [id number] JASMYN Insurance:MEDICARE [id number] [facility] [place]DS[place]AN[place] PART [place] [facility] [address]Nvu: (330) Number: Repository [phone] () [id number] Date:2018-05-23 05/24/2018 Secondary FELIX J HALLDOB: [place] Insurance:ANTHEMPolic [id number] Community y Number: Hospital [id number] Repository Date:6114-83-00PL [address] [place] [address] 527[address]NB: 05/24/2018 Tertiary NOT GIVENUNK Tae Insurance:SELF PAY [facility] Number: Effective Repository Date:2018-05-23 05/20/2018 KASH Primary FELIX J HALLDOB: [place] [id number] JASMYN Insurance:MEDICARE [id number] Doctors Hospital [address]24Vag: (330) Number: Repository [phone] () [id number] Date:2018-05-13 05/20/2018 Secondary FELIX J HALLDOB: [place] Insurance:ANTHEMPolic [id number] Community y Number: Hospital [id number] Repository Date:4301-49-61FT [address] [place] [address] 26071SX: 05/20/2018 Tertiary NOT GIVENUNK [place] Insurance:SELF PAY [facility] Number: Effective Repository Date:2018-05-13 05/17/2018 KASH Primary FELIX J HALLDOB: [place] [id number] JASMYN Insurance:MEDICARE [id number] Doctors Hospital 510[address]Vwf: (330) Number: Repository [phone] () [id number] Date:2018-05-13 05/17/2018 Secondary FELIX J HALLDOB: Tae Insurance:ANTHEMPolic [id number] Community y Number: Hospital [id number] Repository Date:7812-51-34DY [address] [place] [address] 836[address]WE: 05/17/2018 Tertiary NOT GIVENUNK Tae Insurance:SELF PAY [facility] Number: Effective Repository Date:2018-05-13 05/13/2018 KASH Primary FELIX J HALLDOB: [place] [id number] JASMYN Insurance:MEDICARE [id number] Doctors' Hospital [place] [facility] [address]Tqf: (330) Number: Repository [phone] () [id number] Date:2018-05-10 05/13/2018 Secondary FELIX J HALLDOB: [place] Insurance:ANTHEMPolic [id number] Community y Number: Hospital [id number] Repository Date:6560-60-35UQ [address] [place] [address] 935[address]NN: 05/13/2018 Tertiary NOT GIVENUNK [place] Insurance:SELF PAY [facility] Number: Effective Repository Date:2018-05-10 05/11/2018 KASH Primary FELIX J HALLDOB: T[place] [id number] JASMYN Insurance:MEDICARE [id number] Doctors' Hospital [facility] [facility] [address]Geg: (330) Number: Repository [phone] () [id number] Date:2018-05-10 05/11/2018 Secondary FELIX J HALLDOB: [place] Insurance:ANTHEMPolic [id number] Community y Number: Hospital [id number] Repository Date:4294-64-82BD [address] [place] [address] 19726MK: 05/11/2018 Tertiary NOT GIVENUNK Tae Insurance:SELF PAY [facility] Number: Effective Repository Date:2018-05-10 05/10/2018 KASH Primary FELIX J HALLDOB: [place] [id number] JASMYN Insurance:MEDICARE [id number] Doctors Hospital 86779Wjq: (330) Number: Repository [phone] () [id number] Date:2018-05-03 05/10/2018 Secondary FELIX J HALLDOB: [place] Insurance:ANTHEMPolic [id number] Community y Number: Hospital [id number] Repository Date:7612-77-80DC [address] [place] [address] 03474DC: 05/10/2018 Tertiary NOT GIVENUNK Tae Insurance:SELF PAY [facility] Number: Effective Repository Date:2018-05-03 05/06/2018 TIGRE Thapa Primary FELIX WILDDOB: [place] [id number] JASMYN Insurance:MEDICARE [id number] [facility] 290[address]Gxr: (330) Number: Repository [phone] () [id number] Date:2018-04-29 05/06/2018 Secondary FELIX J HALLDOB: [place] Insurance:ANTHEMPolic [id number] Community y Number: [facility] [id number] Repository Date:9453-60-05ZJ [address] [place] [address] 16853VM: 05/06/2018 Tertiary NOT GIVENUNK Tae Insurance:SELF PAY [facility] Number: Effective Repository Date:2018-04-29 05/03/2018 TIGRE Thapa Primary FELIX WILDDOB: [place] [id number] JASMYN Insurance:MEDICARE [id number] Doctors' Hospital [facility] [facility] [address]Ide: (330) Number: Repository [phone] () [id number] Date:2018-04-29 05/03/2018 Secondary FELIX Alanis WILDDOB: T[place] Insurance:ANTHEMPolic [id number] Community y Number: Hospital [id number] Repository Date:1882-18-44UA [address] [address]GF: 05/03/2018 Tertiary NOT GIVENUNK Tae Insurance:SELF PAY [facility] Number: Effective Repository Date:2018-04-29 04/29/2018 TIGRE Thapa Primary FELIX Thapa HALLDOB: [place] [id number] JASMYN Insurance:MEDICARE [id number] Doctors Hospital [address]Chb: (330) Number: Repository [phone] () [id number] Date:2018-04-26 04/29/2018 Secondary FELIX J JUNITODOB: [place] Insurance:ANTHEMPolic [id number] Community y Number: Hospital [id number] Repository Date:0727-68-63NP [address], [place] [address]PV: 04/29/2018 Tertiary NOT GIVENUNK [place] Insurance:SELF PAY [facility] Number: Effective Repository Date:2018-04-26 04/27/2018 TIGRE Thapa Primary FELIX J HALLDOB: T[place] [id number] JASMYN Insurance:MEDICARE [id number] Doctors Hospital 24073Qfv: (330) Number: Repository [phone] () [id number] Date:2018-04-26 04/27/2018 Secondary FELIX Alanis WILDDOB: [place] Insurance:ANTHEMPira [facility] [id number] Community y Number: Hospital [id number] Repository Date:7781-46-45MO [address]EWTRHQG, [place] [address]LG: 04/27/2018 Tertiary NOT GIVENUNK Tae Insurance:SELF PAY [facility] Number: Effective Repository Date:2018-04-26 04/22/2018 TIGRE Thapa Primary FELIX J HALLDOB: [place] [id number] JASMYN Insurance:MEDICARE [id number] Doctors Hospital 16642Pqd: (330) Number: Repository [phone] () [id number] Date:2018-04-13 04/22/2018 Secondary FELIX J JUNITODOB: Tae Insurance:ANTHEMPolic [id number] Community y Number: Hospital [id number] Repository Date:0257-20-58TB [address]UAXIN, [place] [address]ZI: 04/22/2018 Tertiary NOT GIVENUNK [place] Insurance:SELF PAY [facility] Number: Effective Repository Date:2018-04-13 04/19/2018 TIGRE Thapa Primary FELIX J HALLDOB: T[place] [id number] JASMYN Insurance:MEDICARE [id number] Doctors Hospital 53[address]Uah: (330) Number: Repository [phone] () [id number] Date:2018-04-13 04/19/2018 Secondary FELIX J HALLDOB: [place] Insurance:ANTHEMPolic [id number] Community y Number: Hospital [id number] Repository Date:9710-49-68EP [address] [place] [address] 57399ZP: 04/19/2018 Tertiary NOT GIVENUNK [place] Insurance:SELF PAY [facility] Number: Effective Repository Date:2018-04-13 04/15/2018 TIGRE Thapa Primary FELIX J HALLDOB: T[place] [id number] JASMYN Insurance:MEDICARE [id number] Doctors Hospital 35696Uoy: (330) Number: Repository [phone] () [id number] Date:2018-04-08 04/15/2018 Secondary FELIX J HALLDOB: [place] Insurance:ANTHEMPolic [id number] Community y Number: Hospital [id number] Repository Date:0179-92-85NX [address] [place] [address] 49[address]KA: 04/15/2018 Tertiary NOT GIVENUNK Tae Insurance:SELF PAY [facility] Number: Effective Repository Date:2018-04-08 04/13/2018 TIGRE Thapa Primary FELIX J HALLDOB: [place] [id number] JASMYN Insurance:MEDICARE [id number] Doctors Hospital 28606Zhj: (330) Number: Repository [phone] () [id number] Date:2018-04-08 04/13/2018 Secondary FELIX J HALLDOB: Tae Insurance:ANTHEMPolic [id number] Community y Number: Hospital [id number] Repository Date:6173-81-79IQ [address] [place] [address] 78199PO: 04/13/2018 Tertiary NOT GIVENUNK [place] Insurance:SELF PAY [facility] Number: Effective Repository Date:2018-04-08 04/08/2018 KASH Primary FELIX J HALLDOB: [place] [id number] JASMYN Insurance[place]MEDICARE [id number] [facility] [address]Ifh: (330) Number: Repository [phone] () [id number] Date:2018-04-01 04/08/2018 Secondary FELIX J HALLDOB: [place] Insurance:ANTHEMPolic [id number] Community y Number: Hospital [id number] Repository Date:8493-46-02QU [address] [place] [address] 69851CM: 04/08/2018 Tertiary NOT GIVENUNK T[place] Insurance:SELF PAY [facility] Number: Effective Repository Date:2018-04-01 04/05/2018 TIGRE Thapa Primary FELIX J HALLDOB: [place] [id number] JASMYN Insurance:MEDICARE [id number] [facility] 12411Vks: (330) Number: Repository [phone] () [id number] Date:2018-04-01 04/05/2018 Secondary FELIX J HALLDOB: Tae Insurance:ANTHEMPolic [id number] Community y Number: Hospital [id number] Repository Date:8461-85-41IH [address] [place] [address] 82672XZ: 04/05/2018 Tertiary NOT GIVENUNK [place] Insurance:SELF PAY [facility] Number: Effective Repository Date:2018-04-01 04/01/2018 TIGRE Thapa Primary FELIX J HALLDOB: [place] [id number] JASMYN Insurance:MEDICARE [id number] [address]Sqj: (330) Number: Repository [phone] () [id number] Date:2018-03-25 04/01/2018 Secondary FELIX J HALLDOB: [place] Insurance:ANTHEMPolic [id number] Community y Number: Hospital [id number] Repository Date:1350-75-52HZ [address] [place] [address] 06844YS: 04/01/2018 Tertiary NOT GIVENUNK T[place] Insurance:SELF PAY [facility] Effective Repository Date:2018-03-25 03/30/2018 TIGRE Thapa Primary FELIX WILDDOB: [place] [id number] JASMYN Insurance:MEDICARE [id number] [facility] 25144Kxw: (330) Number: Repository [phone] () [id number] Date:2018-03-25 03/30/2018 Secondary FELIX J HALLDOB: [place] Insurance:ANTHE[employer]olic [id number] Community y Number: Hospital [id number] Repository Date:8320-28-01TT [address] [place] [address] 93796JV: 03/30/2018 Tertiary NOT GIVENUNK T[place] Insurance:SELF PAY [facility] Effective Repository Date:2018-03-25 03/25/2018 TIGRE Thapa Primary FELIX WILDDOB: [place] [id number] JASMYN Insurance:MEDICARE [id number] [facility] 15435Hwe: (330) Number: Repository [phone] () [id number] Date:2018-03-18 03/25/2018 Secondary FELIX Alanis WILDDOB: Tae Insurance:[employer]HE[employer]olic [id number] Community y Number: Hospital [id number] Repository Date:5838-08-18LV [address] [place] [address] 69464WQ: 03/25/2018 Tertiary NOT GIVENUNK [place] Insurance:SELF PAY [facility] Number: Effective Repository Date:2018-03-18 03/22/2018 TIGRE Thapa Primary FELIX WILDDOB: [place] [id number] JASMYN Insurance:MEDICARE [id number] Doctors' Hospital [place] [facility] 49677Our: (330) Number: Repository [phone] () [id number] Date:2018-03-18 03/22/2018 Secondary FELIX J JUNITODOB: Tae Insurance:[employer]HE[employer]olic [id number] Community y Number: Hospital [id number] Repository Date:3451-45-63HK [address] [place] [address] 83171CV: 03/22/2018 Tertiary NOT GIVENUNK T[place] Insurance:SELF PAY [facility] Number: Effective Repository Date:2018-03-18 03/18/2018 TIGRE Thapa Primary FELIX J HALLDOB: [place] [id number] [place]ASMY[place] Insurance:MEDICARE [id number] Doctors Hospital [address]74Sxa: (330) Number: Repository [phone] () [id number] Date:2018-03-11 03/18/2018 Secondary FELIX Alanis WILDDOB: Tae Insurance:[employer]HE[employer]olic [id number] Community y Number: Hospital [id number] Repository Date:2615-63-29XK [address]VVXEQPT, [place] [address]KJ: 03/18/2018 Tertiary NOT GIVENUNK Tae Insurance:SELF PAY [facility] Number: Effective Repository Date:2018-03-11 03/15/2018 TIGRE Thapa Primary FELIX J HALLDOB: [place] [id number] JASMYN Insurance:MEDICARE [id number] Doctors Hospital 15524Pwl: (330) Number: Repository [phone] () [id number] Date:2018-03-11 03/15/2018 Secondary FELIX J JUNITODOB: [place] Insurance:[employer]HE[employer]olic [id number] Community y Number: Hospital [id number] Repository Date:4652-21-47AM [address] [place] [address] 38750NN: 03/15/2018 Tertiary NOT GIVENUNK [place] Insurance:SELF PAY [facility] Number: Effective Repository Date:2018-03-11 03/10/2018 TIGRE Thapa Primary FELIX J HALLDOB: [place] [id number] [place] Insurance:MEDICARE [id number] Doctors Hospital 04229Tpb: (330) Number: Repository [phone] () [id number] Date:2018-03-04 03/10/2018 Secondary FELIX J HALLDOB: [place] Insurance:[employer]HE[employer]olic [id number] Community y Number: Hospital [id number] Repository Date:5190-71-04FL [address] [place] [address] 13960RX: 03/10/2018 Tertiary NOT GIVENUNK [place] Insurance:SELF PAY [facility] Number: Effective Repository Date:2018-03-04 03/08/2018 TIGRE Thapa Primary FELIX J HALLDOB: [place] [id number] JASMYN Insurance:MEDICARE [id number] Doctors Hospital 21489Wsj: (330) Number: Repository [phone] () [id number] Date:2018-03-03 03/08/2018 Secondary FELIX J HALLDOB: [place] Insurance:[employer]HE[employer]olic [id number] Community y Number: Hospital [id number] Repository Date:7928-79-49TL [address] [place] [address] 27963ZS: 03/08/2018 Tertiary NOT GIVENUNK [place] Insurance:SELF PAY [facility] Number: Effective Repository Date:2018-03-03 03/01/2018 TIGRE Thapa Primary FELIX J HALLDOB: [place] [id number] JASMYN Insurance:MEDICARE [id number] Doctors Hospital 33018Bmk: (330) Number: Repository [phone] () [id number] Date:2018-02-28 03/01/2018 Secondary FELIX J HALLDOB: Tae Insurance:ANTHE[employer]olic [id number] Community y Number: Hospital [id number] Repository Date:6364-23-00HE [id number] [place] [address] 99072WJ: 03/01/2018 Tertiary NOT GIVENUNK [place] Insurance:SELF PAY [facility] Number: Effective Repository Date:2018-02-28 02/25/2018 TIGRE Thapa Primary FELIX J HALLDOB: [place] [id number] [place] Insurance:MEDICARE [id number] Doctors Hospital 75066Cnu: (330) Number: Repository [phone] () [id number] Date:2018-02-22 02/25/2018 Secondary FELIX J HALLDOB: [place] Insurance:ANTHEMPolic [id number] Community y Number: Hospital [id number] Repository Date:8666-55-78IA [address] [place] [address] 72364FM: 02/25/2018 Tertiary NOT GIVENUNK T[place] Insurance:SELF PAY [facility] Number: Effective Repository Date:2018-02-22 02/23/2018 TIGRE Thapa Primary FELIX J HALLDOB: [place] [id number] JASMYN Insurance:MEDICARE [id number] Doctors Hospital 20300Yee: (330) Number: Repository [phone] () [id number] Date:2018-02-22 02/23/2018 Secondary FELIX J HALLDOB: [place] Insurance:ANTHE[employer]olic [id number] Community y Number: Hospital [id number] Repository Date:5806-71-20VF [id number] [place] [address] 02535FV: 02/23/2018 Tertiary NOT GIVENUNK [place] Insurance:SELF PAY [facility] Number: Effective Repository Date:2018-02-22 02/18/2018 TIGRE Thapa Primary FELIX J HALLDOB: [place] [id number] [place] Insurance:MEDICARE [id number] Doctors Hospital 88971Fjr: (330) Number: Repository [phone] () [id number] Date:2018-02-11 02/18/2018 Secondary FELIX J HALLDOB: [place] Insurance:ANTHE[employer]olic [id number] Community y Number: Hospital [id number] Repository Date:5223-94-76WN [address] [place] [address] 30829SK: 02/18/2018 Tertiary NOT GIVENUNK [place] Insurance:SELF PAY Community [facility] Number: Effective Repository Date:2018-02-11 02/15/2018 TIGRE Thapa Primary FELIX [place]apa HALLDOB: [place] [id number] JASMY[place] Insurance:MEDICARE [id number] [facility] [address]Hta: (330) Number: Repository [phone] () [id number] Date:2018-02-11 02/15/2018 Secondary FELIX J HALLDOB: [place] Insurance:ANTHEMPolic [id number] Community y Number: [facility] [id number] Repository Date:1597-48-22MI [address] [place] [address] 36600SA: 02/15/2018 Tertiary NOT GIVENUNK [place] Insurance:SELF PAY [facility] Number: Effective Repository Date:2018-02-11 02/11/2018 TIGRE Thapa Primary FELIX WILDDOB: [place] [id number] [place] Insurance:MEDICARE [id number] Doctors' Hospital [place] [facility] 67515Tgq: (330) Number: Repository [phone] () [id number] Date:2018-02-04 02/11/2018 Secondary FELIX Alanis WILDDOB: [place] Insurance:ANTHEMPolic [id number] Community y Number: [facility] [id number] Repository Date:1628-47-65CY [address] [place] [address] 90494WY: 02/11/2018 Tertiary NOT GIVENUNK [place] Insurance:SELF PAY [facility] Number: Effective Repository Date:2018-02-04 02/08/2018 TIGRE Thapa Primary FELIX WILDDOB: [place] [id number] [place] Insurance:MEDICARE [id number] Doctors' Hospital [place] [facility] 8[address]31Yoz: (330) Number: Repository [phone] () [id number] Date:2018-02-08 02/08/2018 Secondary FELIX J JUNITODOB: [place] Insurance:[place]HE[place]olic [id number] Community y Number: Hospital [id number] Repository Date:2217-99-66UE [address] [place] [address] 30457FA: 02/08/2018 Tertiary NOT GIVENUNK T[place] Insurance:SELF PAY [facility] Number: Effective Repository Date:2018-02-08 02/07/2018 TIGRE Thapa Primary FELIX WILDDOB: [place] [id number] [place] Insurance:MEDICARE [id number] Doctors Hospital 44114Zwf: (330) Number: Repository [phone] () [id number] Date:2018-01-31 02/07/2018 Secondary FELIX WILDDOB: [place] Insurance:ANTHE[employer]olic [id number] Community y Number: Hospital [id number] Repository Date:5763-33-34MV [id number] [place] [address] 69577YD: 02/07/2018 Tertiary NOT GIVENUNK T[place] Insurance:SELF PAY [facility] Number: Effective Repository Date:2018-01-31 02/02/2018 TIGRE Thapa Primary FELIX WILDDOB: [place] [id number] [place] Insurance:MEDICARE [id number] Doctors Hospital 87757Git: (330) Number: Repository [phone] () [id number] Date:2018-01-31 02/02/2018 Secondary FELIXApolinar WILDDOB: [place] Insurance:ANTHE[employer]olic [id number] Community y Number: Hospital [id number] Repository Date:8549-65-21RO [address] [place] [address] 79160CF: 02/02/2018 Tertiary NOT GIVENUNK [place] Insurance:SELF PAY [facility] Number: Effective Repository Date:2018-01-31 01/28/2018 TIGRE Thapa Primary FELIX WILDDOB: [place] [id number] [place] Insurance:MEDICARE [id number] Doctors Hospital 31179Sfv: (330) Number: Repository [phone] () [id number] Date:2018-01-21 01/28/2018 Secondary FELIX J HALLDOB: [place] Insurance:[place]HE[place]olic [id number] Community y Number: Hospital [id number] Repository Date:2907-73-49WK [address]VWW [place] [address]PL: 01/28/2018 Tertiary NOT GIVENUNK [place] Insurance:SELF PAY [facility] Number: Effective Repository Date:2018-01-21 01/25/2018 KASH Primary FELIX J HALLDOB: [place] [id number] [place] Insurance:MEDICARE [id number] Doctors Hospital 04578Xux: (330) Number: Repository [phone] () [id number] Date:2018-01-14 01/25/2018 Secondary FELIX J HALLDOB: [place] Insurance:[employer]HE[place]olic [id number] Community y Number: Hospital [id number] Repository Date:4851-53-94LI [address]NALNBVI [place] [address]SL: 01/25/2018 Tertiary NOT GIVENUNK T[place] Insurance:SELF PAY [facility] Number: Effective Repository Date:2018-01-14 01/21/2018 KASH Primary FELIX J HALLDOB: [place] [id number] [place] Insurance:MEDICARE [id number] Doctors Hospital 98559Zhf: (330) Number: Repository [phone] () [id number] Date:2018-01-14 01/21/2018 Secondary FELIX J HALLDOB: [place] Insurance:ANTHEMPolic [id number] Community y Number: Hospital [id number] Repository Date:3403-24-01JV [address]YAXV[place], [place] [address]LH: 01/21/2018 Tertiary NOT GIVENUNK T[place] Insurance:SELF PAY [facility] Number: Effective Repository Date:2018-01-14 01/18/2018 TIGRE Thapa Primary FELIX J HALLDOB: [place] [id number] JASMYN Insurance:MEDICARE [id number] Doctors Hospital 68983Kwh: (330) Number: Repository [phone] () [id number] Date:2018-01-14 01/18/2018 Secondary FELIX J HALLDOB: [place] Insurance:ANTHEMPolic [id number] Community y Number: Hospital [id number] Repository Date:2109-21-25YT [address] [place] [address] 71635LN: 01/18/2018 Tertiary NOT GIVENUNK [place] Insurance:SELF PAY [facility] Number: Effective Repository Date:2018-01-14 01/17/2018 TIGRE Thapa Primary FELIX J HALLDOB: [place] [id number] [place] Insurance:MEDICARE [id number] Doctors Hospital 56974Hxv: (330) Number: Repository [phone] () [id number] Date:2018-01-13 01/17/2018 Secondary FELIX J HALLDOB: [place] Insurance:ANTHEMPolic [id number] Community y Number: Hospital [id number] Repository Date:2847-71-52IK [address]WLFV[address] [place] [address] 44036EG: 01/17/2018 Tertiary NOT GIVENUNK [place] Insurance:SELF PAY [facility] Number: Effective Repository Date:2018-01-13 01/14/2018 TIGRE Thapa Primary FELIX J HALLDOB: [place] [id number] [place] Insurance:MEDICARE [id number] Doctors Hospital 19796Dqj: (330) Number: Repository [phone] () [id number] Date:2018-01-07 01/14/2018 Secondary FELIX J HALLDOB: [place] Insurance:ANTHEMPolic [id number] Community y Number: Hospital [id number] Repository Date:2602-60-03OW [address] [place] [address] 62964TR: 01/14/2018 Tertiary NOT GIVENUNK [place] Insurance:SELF PAY Community [facility] Number: Effective Repository Date:2018-01-07 01/11/2018 TIGRE Thapa Primary FELIX J HALLDOB: [place] [id number] JASMYN Insurance:MEDICARE [id number] [place] [facility] 47981Yjg: (330) Number: Repository [phone] () [id number] Date:2018-01-07 01/11/2018 Secondary FELIX J HALLDOB: [place] Insurance:ANTHEMPolic [id number] Community y Number: [facility] [id number] Repository Date:2584-19-41BV [address] [place] [address] 87889CG: 01/11/2018 Tertiary NOT GIVENUNK T[place] Insurance:SELF PAY [facility] Number: Effective Repository Date:2018-01-07 01/07/2018 TIGRE Thapa Primary FELIX J HALLDOB: [place] [id number] [place] Insurance:MEDICARE [id number] [place] [facility] 92999Pak: (330) Number: Repository [phone] () [id number] Date:2018-01-03 01/07/2018 Secondary FELIX J HALLDOB: [place] Insurance:ANTHEMPolic [id number] Community y Number: [facility] [id number] Repository Date:6341-05-65WY [address] [place] [address] 57867IX: 01/07/2018 Tertiary NOT GIVENUNK [place] Insurance:SELF PAY [facility] Number: Effective Repository Date:2018-01-03 01/04/2018 TIGRE Thapa Primary FELIX J HALLDOB: [place] [id number] [place]N Insurance:MEDICARE [id number] [facility] 67694Xaj: (330) Number: Repository [phone] () [id number] Date:2018-01-03 01/04/2018 Secondary FELIX J HALLDOB: [place] Insurance:ANTHEMPolic [id number] Community y Number: Hospital [id number] Repository Date:4818-00-92UE [address] [place] [address] 41849LQ: 01/04/2018 Tertiary NOT GIVENUNK T[place] Insurance:SELF PAY [facility] Number: Effective Repository Date:2018-01-03 12/31/2017 TIGRE Thapa Primary FELIX WILDDOB: [place] [id number] [place]MY[place] Insurance:MEDICARE [id number] Doctors Hospital 50919Nse: (330) Number: Repository [phone] () [id number] Date:2017-12-23 12/31/2017 Secondary FELIX WILDDOB: [place] Insurance:ANTHEMPolic [id number] Community y Number: Hospital [id number] Repository Date:8157-28-10WB [address] [place] [address] 37509CS: 12/31/2017 Tertiary NOT GIVENUNK Tae Insurance:SELF PAY [facility] Number: Effective Repository Date:2017-12-23 12/29/2017 TIGRE Thapa Primary FELIX WILDDOB: [place] [id number] JASMYN Insurance:MEDICARE [id number] Doctors Hospital 27501Mtj: (330) Number: Repository [phone] () [id number] Date:2017-12-23 12/29/2017 Secondary FELIXApolinar WILDDOB: Tae Insurance:ANTHEMPolic [id number] Community y Number: Hospital [id number] Repository Date:1031-80-71KK [address] [place] [address] 35907DT: 12/29/2017 Tertiary NOT GIVENUNK Tae Insurance:SELF PAY [facility] Number: Effective Repository Date:2017-12-23 12/28/2017 TIGRE Thapa Primary FELIX WILDDOB: [place] [id number] [place]ASMYN Insurance:MEDICARE [id number] Doctors Hospital 98626Dpu: (330) Number: Repository [phone] () [id number] Date:2017-12-23 12/28/2017 Secondary FELIX J HALLDOB: [place] Insurance:ANTHEMPolic [id number] Community y Number: Hospital [id number] Repository Date:2277-73-99JE [address] [place] [address] [place] [address]BU: 12/28/2017 Tertiary NOT GIVENUNK [place] Insurance:SELF PAY [facility] Number: Effective Repository Date:2017-12-23 12/23/2017 KASH Primary FELIX J HALLDOB: T[place] [id number] JASMYN Insurance:MEDICARE [id number] Doctors Hospital 07916Lxj: (330) Number: Repository [phone] () [id number] Date:2017-12-17 12/23/2017 Secondary FELIX J HALLDOB: Tae Insurance:ANTHEMPolic [id number] Community y Number: Hospital [id number] Repository Date:8580-05-10XE [address]ZPDNTFD [place] [address]SM: 12/23/2017 Tertiary NOT GIVENUNK [place] Insurance:SELF PAY [facility] Number: Effective Repository Date:2017-12-17 12/21/2017 KASH Primary FELIX J HALLDOB: T[place] [id number] JASMYN Insurance:MEDICARE [id number] Doctors Hospital 49731Zpm: (330) Number: Repository [phone] () [id number] Date:2017-12-17 12/21/2017 Secondary FELIX J HALLDOB: [place] Insurance:ANTHEMPolic [id number] Community y Number: Hospital [id number] Repository Date:1625-58-16LF [address]ZUSWX, [place] [address]BK: 12/21/2017 Tertiary NOT GIVENUNK [place] Insurance:SELF PAY [facility] Number: Effective Repository Date:2017-12-17 12/17/2017 TIGRE Thapa Primary FELIX J HALLDOB: T[place] [id number] JASMYN Insurance:MEDICARE [id number] Doctors Hospital 17704Zme: (330) Number: Repository [phone] () [id number] Date:2017-12-10 12/17/2017 Secondary FELIX J HALLDOB: [place] Insurance:ANTHEMPolic [id number] Community y Number: Hospital [id number] Repository Date:4414-92-48HN [address] [place] [address] 11388HN: 12/17/2017 Tertiary NOT GIVENUNK Tae Insurance:SELF PAY [facility] Number: Effective Repository Date:2017-12-10 12/14/2017 TIGRE Thapa Primary FELIX J HALLDOB: [place] [id number] JASMYN Insurance:MEDICARE [id number] Doctors' Hospital [facility] [facility] 55742Dxm: (330) Number: Repository [phone] () [id number] Date:2017-12-10 12/14/2017 Secondary FELIX J HALLDOB: [place] Insurance:ANTHEMPolic [id number] Community y Number: Hospital [id number] Repository Date:6613-22-43WO [address]RVSAKFJ, [place] [address]IF: 12/14/2017 Tertiary NOT GIVENUNK Tae Insurance:SELF PAY [facility] Number: Effective Repository Date:2017-12-10 12/10/2017 TIGRE Thapa Primary FELIX J HALLDOB: [place] [id number] JASMYN Insurance:MEDICARE [id number] Doctors Hospital 57350Meh: Number: Repository [phone] [id number] () Date:2017-12-03 12/10/2017 Secondary FELIX J HALLDOB: [place] Insurance:ANTHEMPolic [id number] Community y Number: Hospital [id number] Repository Date:5154-34-67RS [address] [place] [address] 02220UQ: 12/10/2017 Tertiary NOT GIVENUNK [place] Insurance:SELF PAY [facility] Number: Effective Repository Date:2017-12-03 12/07/2017 TIGRE Thapa Primary FELIX J HALLDOB: [place] [id number] JASMYN Insurance:MEDICARE [id number] [facility] 96110Hce: (330) Number: Repository [phone] () [id number] Date:2017-12-03 12/07/2017 Secondary FELIX J HALLDOB: [place] Insurance:ANTHEMPolic [id number] Community y Number: [facility] [id number] Repository Date:7955-32-90LW [address] [place] [address] 41498KR: 12/07/2017 Tertiary NOT GIVENUNK [place] Insurance:SELF PAY [facility] Number: Effective Repository Date:2017-12-03 12/03/2017 TIGRE Thapa Primary FELIX J HALLDOB: [place] [id number] JASMYN Insurance[id number] [facility] [address]Qgi: Number: Repository [phone] [id number] (HP) Date:2017-12-03 12/03/2017 Secondary FELIX J HALLDOB: [place] Insurance:ANTHEMPolic [id number] Community y Number: [facility] [id number] Repository Date:[id number] [address] [place] [address] [id number]: 12/03/2017 Tertiary NOT GIVENUNK Tae Insurance:SELF PAY [facility] Number: Effective Repository Date:2017-12-03 12/03/2017 TIGRE Thapa Primary FELIX J HALLDOB: [place] [id number] JASMYN Insurance:MEDICARE [id number] [address]Hbx: Number: Repository [phone] [id number] (HP) Date:2017-12-01 12/03/2017 Secondary FELIX Alanis WILDDOB: Tae Insurance:ANTHEMPolic [id number] Community y Number: Hospital [id number] Repository Date:[id number] [id number] [place] [address] [id number]: 12/03/2017 Tertiary NOT GIVENUNK Tae Insurance:SELF PAY [facility] Number: Effective Repository Date:2017-12-01 11/30/2017 TIGRE Th[place] Primary FELIX J JUNITODOB: [place] [id number] JASMYN Insurance:MEDICARE [id number] [id number]: Number: Repository [phone] [id number] -6 () Date:2017-11-29 11/30/2017 Secondary FELIX J JUNITODOB: Tae Insurance:ANTHEMPolic [id number] [facility] y Number: Hospital [id number] Repository Date:6953-67-71EL [address]FWAKKMR, [place] [address]WX: 11/30/2017 Tertiary NOT GIVENUNK Ate Insurance:SELF PAY [facility] Effective Repository Date:2017-11-29 11/26/2017 TIGRE Thapa Primary FELIX WILDDOB: [place] [id number] JASMYN Insurance:MEDICARE [id number] [facility] [address]Vsq: (330) Number: Repository [phone] () [id number] Date:2017-11-19 11/26/2017 Secondary FELIX J HALLDOB: [place] Insurance:ANTHEMPolic [id number] Community y Number: Hospital [id number] Repository Date:0498-68-03WC [address] [place] [address]NV: 11/26/2017 Tertiary NOT GIVENUNK [place] Insurance:SELF PAY Community [facility] Number: Effective Repository Date:2017-11-19 11/23/2017 TIGRE Thapa Primary FELIX WILDDOB: [place] [id number] JASMYN Insurance[id number] [facility] [address]Aud: (330) Number: Repository [phone] () [id number] Date:2017-11-19 11/23/2017 Secondary FELIX J HALLDOB: [place] Insurance:ANTHEMPolic [id number] Community y Number: Hospital [id number] Repository Date:7417-07-08YV [address] [place] [address]HK: 11/23/2017 Tertiary NOT GIVENUNK [place] Insurance:SELF PAY [facility] Number: Effective Repository Date:2017-11-19 11/19/2017 TIGRE Thapa Primary FELIX J HALLDOB: [place] [id number] JASMYN Insurance:ANTHEMPolic [id number] Number: Hospital [address]Aon: [id number] Repository [phone] Date:0405-55-17GP [address] ) [address]77[address]TQIUHBF, [place] [address]RY: 11/19/2017 Secondary FELIX J HALLDOB: [place] Insurance:MEDICARE [id number] Community PART A [facility] Hospital Number: Repository [id number] Date:2017-11-12 11/19/2017 Tertiary NOT GIVENUNK [place] Insurance:SELF PAY [facility] Number: Effective Repository Date:2017-11-12 11/16/2017 TIGRE Thapa Primary FELIX J HALLDOB: [place] [id number] JASMYN Insurance[place]ICARE [id number] [facility] [address]Qng: Number: Repository [phone] [id number] -6 () Date:2017-11-12 11/16/2017 Secondary FELIX J HALLDOB: Tae Insurance:ANTHEMPolic [id number] Community y Number: Hospital [id number] Repository Date:4289-13-17ZY [address]KPHSPRC [place] [address]LP: 11/16/2017 Tertiary NOT GIVENUNK Tae Insurance:SELF PAY [facility] Number: Effective Repository Date:2017-11-12 11/12/2017 TIGRE Thapa Primary FELIX J HALLDOB: [place] [id number] JASMYN Insurance:MEDICARE [id number] [facility] [address]Sap: Number: Repository [phone] [id number] -6 (HP) Date:2017-11-02 11/12/2017 Secondary FELIX J HALLDOB: T[place] Insurance:ANTHEMPolic [id number] Community y Number: Hospital [id number] Repository Date:3006-99-11PQ [address] [place] [address] 67[address]GJ: 11/12/2017 Tertiary NOT GIVENUNK [place] Insurance:SELF PAY [facility] Number: Effective Repository Date:2017-11-02 11/10/2017 TIGRE Thapa Primary FELIX J HALLDOB: [place] [id number] JASMYN Insurance:MEDICARE [id number] Doctors Hospital [address]Iqn: Number: Repository [phone] [id number] -6 (HP) Date:2017-11-02 11/10/2017 Secondary FELIX WILDDOB: Tae Insurance:ANTHEMPolic [id number] Community y Number: Hospital [id number] Repository Date:4423-42-26LD [address] [place] [address] 78[address]GW: 11/10/2017 Tertiary NOT GIVENUNK Tae Insurance:SELF PAY [facility] Number: Effective Repository Date:2017-11-02 11/04/2017 TIGRE Thapa Primary FELIX J HALLDOB: [place] [id number] JASMYN Insurance:MEDICARE [id number] Doctors Hospital [address]Wci: (330) Number: Repository [phone] ([phone] [id number] Date:2017-10-29 11/04/2017 Secondary FELIX J HALLDOB: [place] Insurance:ANTHEMPolic [id number] Community y Number: Hospital [id number] Repository Date:9253-70-35ZA [address]UNPYGRZ, [place] [address]PJ: 11/04/2017 Tertiary NOT GIVENUNK [place] Insurance:SELF PAY [facility] Number: Effective Repository Date:2017-10-29 11/02/2017 TIGRE Thapa Primary FELIX J HALLDOB: [place] [id number] JASMYN Insurance:MEDICARE [id number] Doctors Hospital [address]Rph: Number: Repository [phone] [id number] -6 (HP) Date:2017-10-29 11/02/2017 Secondary FELIX Alanis WILDDOB: [place] Insurance:ANTHEMPolic [id number] Community y Number: [facility] [id number] Repository Date:4776-98-31PK [address]FJMIUGO, [place] [address]LU: 11/02/2017 Tertiary NOT GIVENUNK Tae Insurance:SELF PAY [facility] Number: Effective Repository Date:2017-10-29 10/29/2017 TIGRE Thapa Primary FELIX J HALLDOB: [place] [id number] JASMYN Insurance:MEDICARE [id number] Doctors Hospital 06[address]Hlp: Number: Repository [phone] [id number] -6 (HP) Date:2017-10-25 10/29/2017 Secondary FELIX Alanis WILDDOB: [place] [facility] [id number] Community y Number: [facility] [id number] Repository Date:4769-13-02PQ [address]VDUGMAR, [place] [address]NK: 10/29/2017 Tertiary NOT GIVENUNK [place] Insurance:SELF PAY [facility] Number: Effective Repository Date:2017-10-25 10/26/2017 TIGRE Thapa Primary FELIX J JUNITODOB: [place] [id number] JASMYN Insurance:MEDICARE [id number] Doctors Hospital [address]Eck: Number: Repository [phone] [id number] -6 (HP) Date:2017-10-25 10/26/2017 Secondary FELIX J HALLDOB: [place] Insurance:ANTHEMPolic [id number] Community y Number: Hospital [id number] Repository Date:9592-04-02MJ [address]WUJDAGS [place] [address]GX: 10/26/2017 Tertiary NOT GIVENUNK Tae Insurance:SELF PAY [facility] Number: Effective Repository Date:2017-10-25 10/22/2017 TIGRE Thapa Primary FELIX J HALLDOB: [place] [id number] [place] Insurance:MEDICARE [id number] Doctors Hospital [address]Dpc: Number: Repository [phone] [id number] -6 (HP) Date:2017-10-15 10/22/2017 Secondary FELIX J HALLDOB: [place] Insurance:ANTHEMPolic [id number] Community y Number: Hospital [id number] Repository Date:3814-40-74FL [address]SSXDZZZ, [place] [address]MN: 10/22/2017 Tertiary NOT GIVENUNK Tae Insurance:SELF PAY [facility] Number: Effective Repository Date:2017-10-15 10/19/2017 KASH Primary FELIX J HALLDOB: [place] [id number] [place] Insurance:MEDICARE [id number] Doctors Hospital [address]Ixd: Number: Repository [phone] [id number] -6 (HP) Date:2017-10-15 10/19/2017 Secondary FELIX J HALLDOB: [place] Insurance:ANTHEMPolic [id number] Community y Number: Hospital [id number] Repository Date:4895-74-77BI [address]YYXCONQ, [place] [address]ZG: 10/19/2017 Tertiary NOT GIVENUNK Tae Insurance:SELF PAY [facility] Number: Effective Repository Date:2017-10-15 10/15/2017 TIGRE Thapa Primary FELIX J HALLDOB: [place] [id number] [place]ASMYN Insurance:MEDICARE [id number] Doctors Hospital 47[address]Kut: Number: Repository [phone] [id number] -6 (HP) Date:2017-10-08 10/15/2017 Secondary FELIX J HALLDOB: [place] Insurance:ANTHEMPolic [id number] Community y Number: Hospital [id number] Repository Date:2669-71-10QZ [address]AUQOTMS, [place] [address]RS: 10/15/2017 Tertiary NOT GIVENUNK Tae Insurance:SELF PAY [facility] Number: Effective Repository Date:2017-10-08 10/12/2017 TIGRE Thapa Primary FELIX J HALLDOB: [place] [id number] [place]MY[place] Insurance:MEDICARE [id number] Doctors Hospital [address]03[address]Oto: Number: Repository [phone] [id number] -6 (HP) Date:2017-10-08 10/12/2017 Secondary FELIX J HALLDOB: [place] Insurance:ANTHEMPolic [id number] Community y Number: Hospital [id number] Repository Date:4876-62-77ME [address]PUDLOPG, [place] [address]DS: 10/12/2017 Tertiary NOT GIVENUNK [place] Insurance:SELF PAY [facility] Number: Effective Repository Date:2017-10-08 10/08/2017 TIGRE Thapa Primary FELIX J HALLDOB: [place] [id number] JASMYN Insurance:MEDICARE [id number] Doctors Hospital [address]Uqk: Number: Repository [phone] [id number] -6 (HP) Date:2017-10-01 10/08/2017 Secondary FELIX J HALLDOB: [place] Insurance:ANTHEMPolic [id number] Community y Number: Hospital [id number] Repository Date:8650-92-68JT [address]HC[address] [place] [address] 37[address]YK: 10/08/2017 Tertiary NOT GIVENUNK [place] Insurance:SELF PAY [facility] Number: Effective Repository Date:2017-10-01 10/05/2017 TIGRE Thapa Primary FELIX J HALLDOB: [place] [id number] JASMYN Insurance:MEDICARE [id number] Doctors' [facility] [place] A [facility] [address]Jpb: Number: Repository [phone] [id number] -6 (HP) Date:2017-10-01 10/05/2017 Secondary FELIX J HALLDOB: [place] Insurance:ANTHEMPolic [id number] Community y Number: Hospital [id number] Repository Date:9379-40-73OY [address]SVJS[address] [place] [address] 32[address]WI: 10/05/2017 Tertiary NOT GIVENUNK [place] Insurance:SELF PAY [facility] Number: Effective Repository Date:2017-10-01 10/01/2017 TIGRE Thapa Primary FELIX J HALLDOB: [place] [id number] [place] Insurance:MEDICARE [id number] Doctors' Hospital [place] A [facility] 70007Oxx: Number: Repository [phone] [id number] -6 (HP) Date:2017-09-24 10/01/2017 Secondary FELIX J HALLDOB: [place] Insurance:ANTHEMPolic [id number] Community y Number: Hospital [id number] Repository Date:5335-61-76PE [address]NDG[address] [place] [address]IV: 10/01/2017 Tertiary NOT GIVENUNK Tae Insurance:SELF PAY [facility] Number: Effective Repository Date:2017-09-24 09/28/2017 TIGRE Thapa Primary FELIX J HALLDOB: [place] [id number] JASMYN Insurance:MEDICARE [id number] Doctors Hospital 635[address]Vdl: Number: Repository [phone] [id number] -6 (HP) Date:2017-09-24 09/28/2017 Secondary FELIX J HALLDOB: [place] Insurance:ANTHEMPolic [id number] Community y Number: Hospital [id number] Repository Date:4797-42-49OH [address]FCNDTCI [place] [address]SD: 09/28/2017 Tertiary NOT GIVENUNK Tae Insurance:SELF PAY Community [facility] Number: Effective Repository Date:2017-09-24 09/28/2017 TIGRE Thapa Primary FELIX J HALLDOB: [place] [id number] [place] Insurance:ANTHEMPolic [id number] [place] y Number: Hospital 117[address]Ocw: [id number] Repository [phone] Date:8948-54-68VO [address] ) 483960QNWFNMT, [place] [address]TF: 09/28/2017 Secondary FELIX J JUNITODOB: Tae Insurance:MEDICARE [id number] [facility] PART A [facility] Hospital Number: Repository [id number] Date:2017-06-02 09/28/2017 Tertiary NOT GIVENUNK Tae Insurance:SELF PAY [facility] Number: Effective Repository Date:2017-06-02 09/24/2017 TIGRE Thapa Primary FELIX J HALLDOB: [place] [id number] [place]MY[place] Insurance:MEDICARE [id number] [place] [facility] 41714Fss: Number: Repository [phone] [id number] -6 () Date:2017-09-17 09/24/2017 Secondary FELIX J HALLDOB: [place] Insurance:ANTHEMPolic [id number] Community y Number: Hospital [id number] Repository Date:8286-72-83SV [address]XWENNJB [place] [address]ON: 09/24/2017 Tertiary NOT GIVENUNK [place] Insurance:SELF PAY Community [facility] Number: Effective Repository Date:2017-09-17 09/21/2017 TIGRE Thapa Primary FELIX J HALLDOB: [place] [id number] [place] Insurance:MEDICARE [id number] [facility] 25678Dih: Number: Repository [phone] [id number] -6 (HP) Date:2017-09-17 09/21/2017 Secondary FELIX J HALLDOB: [place] Insurance:ANTHEMPolic [id number] Community y Number: Hospital [id number] Repository Date:5748-84-61QG [address]JAZAIHR, [place] [address]EY: 09/21/2017 Tertiary NOT GIVENUNK Tae Insurance:SELF PAY [facility] Number: Effective Repository Date:2017-09-17 09/17/2017 TIGRE Thapa Primary FELIX J HALLDOB: [place] [id number] [place]ASMYN Insurance:MEDICARE [id number] Doctors Hospital 544[address]Lkz: Number: Repository [phone] [id number] -6 (HP) Date:2017-09-13 09/17/2017 Secondary FELIX J HALLDOB: [place] Insurance:ANTHEMPolic [id number] Community y Number: Hospital [id number] Repository Date:5102-48-27XA [address]EKJQTYRPARESH PEDRAZA [address]TY: 09/17/2017 Tertiary NOT GIVENUNK Tae Insurance:SELF PAY [facility] Number: Effective Repository Date:2017-09-13 09/14/2017 TIGRE Thapa Primary FELIX J HALLDOB: [place] [id number] [place] Insurance:MEDICARE [id number] Doctors Hospital 950[address]Lng: Number: Repository [phone] [id number] -6 (HP) Date:2017-09-13 09/14/2017 Secondary FELIX J HALLDOB: [place] Insurance:ANTHEMPolic [id number] [facility] y Number: Hospital [id number] Repository Date:2528-38-11YL [address]MKPJQYV, [place] [address]SZ: 09/14/2017 Tertiary NOT GIVENUNK [place] Insurance:SELF PAY [facility] Number: Effective Repository Date:2017-09-13 09/10/2017 TIGRE Thapa Primary FELIX WILDDOB: [place] [id number] [place] Insurance:MEDICARE [id number] Doctors' Hospital [place] [facility] [address]Qyz: Number: Repository [phone] [id number] -6 (HP) Date:2017-09-03 09/10/2017 Secondary FELIX J JUNITODOB: [place] Insurance:ANTHEMPolic [id number] Community y Number: [facility] [id number] Repository Date:6945-19-96KN [address] [place] [address]BZ: 09/10/2017 Tertiary NOT GIVENUNK Tae Insurance:SELF PAY [facility] Number: Effective Repository Date:2017-09-03 09/07/2017 TIGRE Thapa Primary FELIX WILDDOB: [place] [id number] JASMYN Insurance:MEDICARE [id number] Doctors' Hospital [place] [facility] [address]220[address]Ser: Number: Repository [phone] [id number] -6 (HP) Date:2017-09-03 09/07/2017 Secondary FELIXApolinar WILDDOB: [place] Insurance:ANTHEMPolic [id number] Community y Number: Hospital [id number] Repository Date:4388-67-16JQ [address]VJVUVUL[address] [place] [address] 969[address]IL: 09/07/2017 Tertiary NOT GIVENUNK [place] Insurance:SELF PAY [facility] Number: Effective Repository Date:2017-09-03 09/03/2017 TIGRE Thapa Primary FELIX WILDDOB: [place] [id number] [place]ASMYN Insurance:MEDICARE [id number] Doctors Hospital 7[address]Vga: Number: Repository [phone] [id number] -6 (HP) Date:2017-08-27 09/03/2017 Secondary FELIX J JUNITODOB: [place] Insurance:ANTHEMPolic [id number] Community y Number: Hospital [id number] Repository Date:8540-28-40AB [address]SS[address] [place] [address] 405[address]OZ: 09/03/2017 Tertiary NOT GIVENUNK Tae Insurance:SELF PAY [facility] Number: Effective Repository Date:2017-08-27 09/01/2017 TIGRE Thapa Primary FELIX WILDDOB: [place] [id number] [place] Insurance:MEDICARE [id number] Doctors Hospital 74[address]Nqc: Number: Repository [phone] [id number] -6 (HP) Date:2017-08-27 09/01/2017 Secondary FELIX WILDDOB: [place] Insurance:ANTHEMPira [facility] [id number] Community y Number: Hospital [id number] Repository Date:3523-86-50CL [address]FNWIC[address] [place] [address] 740[address]FV: 09/01/2017 Tertiary NOT GIVENUNK Tae Insurance:SELF PAY [facility] Number: Effective Repository Date:2017-08-27 08/27/2017 TIGRE Thapa Primary FELIX WILDDOB: [place] [id number] [place]MY[place] Insurance:MEDICARE [id number] Doctors Hospital 60[address]Gol: Number: Repository [phone] [id number] -6 (HP) Date:2017-08-20 08/27/2017 Secondary FELIXApolinar WILDDOB: [place] Insurance:ANTHEMPolic [id number] Community y Number: Hospital [id number] Repository Date:0227-39-68DV [address]TMLOPQJ, [place] [address]ZU: 08/27/2017 Tertiary NOT GIVENUNK [place] Insurance:SELF PAY [facility] Number: Effective Repository Date:2017-08-20 08/24/2017 TIGRE Thapa Primary FELIX WILDDOB: [place] [id number] [place] Insurance:MEDICARE [id number] Doctors Hospital 93794Vxl: Number: Repository [phone] [id number] -6 () Date:2017-08-20 08/24/2017 Secondary FELIX J HALLDOB: [place] Insurance:ANTHEMPolic [id number] Community y Number: Hospital [id number] Repository Date:7120-09-55FD [address]XSQONXS [place] [address]JD: 08/24/2017 Tertiary NOT GIVENUNK [place] Insurance:SELF PAY [facility] Number: Effective Repository Date:2017-08-20 08/20/2017 TIGRE Thapa Primary FELIX J HALLDOB: [place] [id number] JASMYN Insurance:MEDICARE [id number] Doctors Hospital 20902Pev: Number: Repository [phone] [id number] -6 () Date:2017-08-12 08/20/2017 Secondary FELIX J HALLDOB: T[place] Insurance:ANTHEMPolic [id number] Community y Number: Hospital [id number] Repository Date:4593-47-16ID [address]FCWYYRS [place] [address]MZ: 08/20/2017 Tertiary NOT GIVENUNK [place] Insurance:SELF PAY [facility] Number: Effective Repository Date:2017-08-12 08/17/2017 TIGRE Thapa Primary FELIX J HALLDOB: [place] [id number] JASMYN Insurance:MEDICARE [id number] Doctors Hospital 58671Lly: (330) Number: Repository [phone] [id number] Date:2017-08-12 08/17/2017 Secondary FELIX J HALLDOB: Tae Insurance:ANTHEMPolic [id number] Community y Number: Hospital [id number] Repository Date:0062-59-81MG [address]YEMWTNO, [place] [address]DN: 08/17/2017 Tertiary NOT GIVENUNK Tae Insurance:SELF PAY Community [facility] Number: Effective Repository Date:2017-08-12 08/13/2017 TIGRE Thapa Primary FELIX WILDDOB: Tae [id number] [place]ASMYN Insurance:MEDICARE [id number] Doctors Hospital 334[address]Mvs: (330) Number: Repository [phone] [id number] Date:2017-08-11 08/13/2017 Secondary FELIX LOBATOB: [place] Insurance:ANTHEMPolic [id number] Community y Number: Hospital [id number] Repository Date:9657-93-03HJ [address] [place] [address]62[address]NS: 08/13/2017 Tertiary NOT GIVENUNK Tae Insurance:SELF PAY [facility] Number: Effective Repository Date:2017-08-11 08/12/2017 TIGRE Thapa Primary FELIX WILDDOB: [place] [id number] JASMYN Insurance:MEDICARE [id number] Doctors Hospital [address]45[address]Twx: Number: Repository [phone] [id number] -6 (HP) Date:2017-08-11 08/12/2017 Secondary FELIX LOBATOB: [place] Insurance:ANTHEMPolic [id number] Community y Number: Hospital [id number] Repository Date:3951-28-57IQ [address] [place] [address] 735[address]BC: 08/12/2017 Tertiary NOT GIVENUNK [place] Insurance:SELF PAY [facility] Number: Effective Repository Date:2017-08-11
== END ==
PROVIDERS: Family Provider Nurse Practitioner; PCP Nurse Practitioner; Referring Provider Psychiatry & Neurology Neurology; Visit Provider Psychiatry & Neurology Neurology
DX: E71.314 Muscle carnitine palmitoyltransferase deficiency (principal)
CPT/HCPCS: 96365 ×2; J7050; A4216

== ENCOUNTER → 2018-06-03 09:47 | Outpatient (CLI) | payer MEDICARE, BC, SELFPAY ==
[2018-05-27 09:51] VITALS: BMI 34.1
[2018-06-01 09:56] VITALS: BMI 33.6
[2018-06-03 10:00] VITALS: BP 158/59; PULSE 66; RESP 16; TEMP 36.7; BMI 33.7
[2018-06-03 13:57] VITALS: BP 126/68; PULSE 62; RESP 16; TEMP 35.8; O2SAT 96
--- OUTSIDE RECORDS SUMMARY | 2018-07-19 23:47 | XMS RPT_ITS ---
:1950 Author Organization OHIP Support Name Relationship Address Phone TIGRE WILD Unavailable [address] + [place] [address] R Unavailable Unavailable TIGRE Pace Unavailable [address] + [place] [address] R Unavailable Unavailable Iliana WILD TIGRE Unavailable [address] + [place] [address] R Unavailable Unavailable Iliana WILD TIGRE Unavailable [address] + [place] [address] R Unavailable Unavailable Unavailable JUNITO TIGRE Unavailable [address] + [place] [address] R Unavailable Unavailable Iliana WILD TIGRE Unavailable [address] + [place] [address] R Unavailable Unavailable Iliana WILD TIGRE Unavailable [address] + [place] [address] R Unavailable Unavailable Unavailable JUNITO TIGRE Unavailable [address] + [place] [address] R Unavailable Unavailable Iliana WILD TIGRE Unavailable [address] + [place] [address] R Unavailable Unavailable Unavailable JUNITO TIGRE Unavailable [address] + [place] [address] R Unavailable Unavailable Unavailable JUNITO TIGRE Unavailable [address] + [place] [address] R Unavailable Unavailable Unavailable WILD TIGRE Unavailable [address] + [place] [address] R Unavailable Unavailable Iliana WILD TIGRE Unavailable [address] + [place] [address] R Unavailable Unavailable Unavailable TIGRE WILD Unavailable [address] + [place] [address] R Unavailable Unavailable Unavailable TIGRE WILD Unavailable [address] + [place] [address] R Unavailable Unavailable TIGRE Pace Unavailable [address] + [place] [address] R Unavailable Unavailable Unavailable TIGRE WILD Unavailable [address] + [place] [address] R Unavailable Unavailable TIGRE Pace Unavailable [address] + [place] [address] R Unavailable Unavailable Unavailable TIGRE WILD Unavailable [address] + [place] [address] R Unavailable Unavailable TIGRE Pace Unavailable [address] + [place] [address] R Unavailable Unavailable TIGRE Pace Unavailable [address] + [place] [address] R Unavailable Unavailable TIGRE Pace Unavailable [address] + [place] [address] R Unavailable Unavailable TIGRE Pace Unavailable [address] + [place] [address] R Unavailable Unavailable TIGRE Pace Unavailable [address] + [place] [address] R Unavailable Unavailable TIGRE Pace Unavailable [address] + [place] [address] R Unavailable Unavailable TIGRE Pace Unavailable [address] + [place] [address] R Unavailable Unavailable Iliana WILD TIGRE Unavailable [address] + [place] [address] R Unavailable Unavailable Unavailable TIGRE WILD Unavailable [address] + [place] [address] R Unavailable Unavailable TIGRE Pace Unavailable [address] + [place] [address] R Unavailable Unavailable Unavailable TIGRE WILD Unavailable [address] + [place] [address] R Unavailable Unavailable TIGRE Pace Unavailable [address] + [place] [address] R Unavailable Unavailable Unavailable JUNITO TIGRE Unavailable [address] + [place] [address] R Unavailable Unavailable Unavailable TIGRE WILD Unavailable [address] + [place] [address] R Unavailable Unavailable Unavailable TIGRE WILD Unavailable [address] + [place] [address] R Unavailable Unavailable Unavailable TIGRE WILD Unavailable [address] + [place] [address] R Unavailable Unavailable Unavailable TIGRE WILD Unavailable [address] + [place] [address] R Unavailable Unavailable Unavailable TIGRE WILD Unavailable [address] + [place] [address] R Unavailable Unavailable Unavailable TIGRE WLID Unavailable [address] + [place] [address] R Unavailable Unavailable TIGRE Pace Unavailable [address] + [place] [address] R Unavailable Unavailable TIGRE Pace Unavailable [address] + [place] [address] R Unavailable Unavailable TIGRE Pace Unavailable [address] + [place] [address] R Unavailable Unavailable TIGRE Pace Unavailable [address] + [place] [address] R Unavailable Unavailable TIGRE Pace Unavailable [address] + [place] [address] R Unavailable Unavailable TIGRE Pace Unavailable [address] + [place] [address] R Unavailable Unavailable TIGRE Pace Unavailable [address] + [place] [address] R Unavailable Unavailable Unavailable TIGRE WILD Unavailable [address] + [place] [address] R Unavailable Unavailable Unavailable TIGRE WILD Unavailable [address] + [place] [address] R Unavailable Unavailable Unavailable TIGRE WILD Unavailable [address] + [place] [address] R Unavailable Unavailable Unavailable TIGRE WILD Unavailable [address] + [place] [address] R Unavailable Unavailable Unavailable TIGRE WILD Unavailable [address] + [place] [address] R Unavailable Unavailable Unavailable JUNITO TIGRE Unavailable [address] + [place] [address] R Unavailable Unavailable TIGRE Pace Unavailable [address] + [place] [address] R Unavailable Unavailable TIGRE Pace Unavailable [address] + [place] [address] R Unavailable Unavailable TIGRE Pace Unavailable [address] + [place] [address] R Unavailable Unavailable Unavailable TIGRE WILD Unavailable [address] + [place] [address] R Unavailable Unavailable TIGRE Pace Unavailable [address] + [place] [address] R Unavailable Unavailable Iliana WILD TIGRE Unavailable [address] + [place] [address] R Unavailable Unavailable Iliana WILD TIGRE Unavailable [address] + [place] [address] R Unavailable Unavailable Iliana WILD TIGRE Unavailable [address] + [place] [address] R Unavailable Unavailable TIGRE Pace Unavailable [address] + [place] [address] R Unavailable Unavailable Iliana WILD TIGRE Unavailable [address] + [place] [address] R Unavailable Unavailable Iliana WILD TIGRE Unavailable [address] + [place] [address] R Unavailable Unavailable Iliana WILD TIGRE Unavailable [address] + [place] [address] R Unavailable Unavailable Unavailable TIGRE WILD Unavailable [address] + [place] [address] R Unavailable Unavailable Iliana WILD TIGRE Unavailable [address] [phone] [place] [address] R Unavailable Unavailable Unavailable JUNITO TIGRE Unavailable [address] + [place] [address] R Unavailable Unavailable Iliana WILD TIGRE Unavailable [address] [phone] [place] [address] R Unavailable Unavailable Iliana WILD TIGRE Unavailable [address] [phone] [place] [address] R Unavailable Unavailable TIGRE Pace Unavailable [address] [phone] [place] [address] R Unavailable Unavailable Iliana WILD TIGRE Unavailable [address] + [place] [address] R Unavailable Unavailable Iliana WILD TIGRE Unavailable [address] + [place] [address] R Unavailable Unavailable TIGRE Pace Unavailable [address] [phone] [place] [address] R Unavailable Unavailable Iliana WILD TIGRE Unavailable [address] [phone] [place] [address] R Unavailable Unavailable Iliana WILD TIGRE Unavailable [address] [phone] [place] [address] R Unavailable Unavailable Iliana WILD TIGRE Unavailable [address] [phone] [place] [address] R Unavailable Unavailable Iliana WILD TIGRE Unavailable [address] + [place] [address] R Unavailable Unavailable Iliana WILD TIGRE Unavailable [address] [phone] [place] [address] R Unavailable Unavailable Iliana WILD TIGRE Unavailable [address] [phone] [place] [address] R Unavailable Unavailable Iliana WILD TIGRE Unavailable [address] [phone] [place] [address] R Unavailable Unavailable Iliana WILD TIGRE Unavailable [address] [phone] [place] [address] R Unavailable Unavailable Iliana WILD TIGRE Unavailable [address] [phone] [place] [address] R Unavailable Unavailable Iliana WILD TIGRE Unavailable [address] [phone] [place] [address] R Unavailable Unavailable Iliana WILD TIGRE Unavailable [address] [phone] [place] [address] R Unavailable Unavailable Iliana WILD TIGRE Unavailable [address] [phone] [place] [address] R Unavailable Unavailable Unavailable JUNITO TGIRE Unavailable [address] [phone] [place] [address] R Unavailable Unavailable Iliana WILD TIGRE Unavailable [address] [phone] [place] [address] R Unavailable Unavailable Iliana WILD TIGRE Unavailable [address] [phone] [place] [address] R Unavailable Unavailable Iliana WILD TIGRE Unavailable [address] [phone] [place] [address] R Unavailable Unavailable Iliana WILD TIGRE Unavailable [address] [phone] [place] [address] R Unavailable Unavailable Iliana WILD TIGRE Unavailable [address] [phone] [place] [address] R Unavailable Unavailable Iliana TIGRE WILD Unavailable [address] [phone] [place] [address] R Unavailable Unavailable Iliana WILD TIGRE Unavailable [address] [phone] [place] [address] R Unavailable Unavailable Iliana WILD TIGRE Unavailable [address] [phone] [place] [address] R Unavailable Unavailable Iliana WILD TIGRE Unavailable [address] [phone] [place] [address] R Unavailable Unavailable Iliana TIGRE WILD Unavailable [address] [phone] [place] [address] R Unavailable Unavailable Iliana WILD TIGRE Unavailable [address] [phone] [place] [address] R Unavailable Unavailable Unavailable JUNITO TIGRE Unavailable [address] [phone] [place] [address] R Unavailable Unavailable Iliana TIGRE WILD Unavailable [address] [phone] [place] [address] R Unavailable Unavailable Iliana WILD TIGRE Unavailable [address] [phone] [place] [address] R Unavailable Unavailable Iliana TIGRE WILD Unavailable [address] + [place] [address] R Unavailable Unavailable Unavailable TIGRE WILD Unavailable [address] + [place] [address] R Unavailable Unavailable Unavailable TIGRE WILD Unavailable [address] [phone] [place] [address] R Unavailable Unavailable Unavailable Care Team Providers Name Role Phone JENNIFER IZQUIERDO Attending Unavailable PAULINE IZQUIERDOCA Haydee Attending Unavailable [facility] Attending Unavailable Ciesa, Aislinn Referring Unavailable Ciesa, Aislinn Consulting Unavailable Kuenzler, Jennifer Attending Unavailable Kuenzler, Jennifer Referring Unavailable Ciesa, [facility] Unavailable Kuenzler, Jennifer Attending Unavailable Kuenzler, Jennifer Referring Unavailable Ciesa, Aislinn Primary Care Unavailable Kuenzler, Jennifer Attending Unavailable Kuenzler, Jennifer Referring [facility]available [facility] Unavailable Kuenzler, Jennifer Attending Unavailable [facility] Unavailable Kuenzler, Jennifer Attending Unavailable Kuenzler, Jennifer Referring Unavailable [facility] Unavailable Kuenzler, Jennifer Attending Unavailable [facility] Unavailable Kuenzler, Jennifer Attending Unavailable Ciesa, Aislinn Primary Care Unavailable Kuenzler, Jennifer Attending Unavailable Kuenzler, Jennifer Referring Unavailable Ciesa, [facility] Unavailable Kuenzler, Jennifer Attending Unavailable Kuenzler, Jennifer Referring Unavailable [facility] Unavailable Kuenzler, Jennifer Attending Unavailable Kuenzler, Jennifer Referring Unavailable Ciesa, [facility] Unavailable Kuenzler, Jennifer Attending Unavailable Kuenzler, Jennifer Referring Unavailable Ciesa, Aislinn Primary [facility] Unavailable Kuenzler, Jennifer Attending Unavailable Kuenzler, Jennifer Referring Unavailable Ciesa, Aislinn Primary [facility] Unavailable Kuenzler, Jennifer Attending Unavailable Kuenzler, Jennifer Referring Unavailable Ciesa, [facility] Unavailable Kuenzler, Jennifer Attending Unavailable Kuenzler, Jennifer Referring Unavailable [facility] Unavailable Kuenzler, Jennifer Attending Unavailable Kuenzler, Jennifer Referring Unavailable [facility] Unavailable Kuenzler, Jennifer Attending Unavailable Kuenzler, Jennifer Referring Unavailable Ciesa, [facility] Unavailable Kuenzler, Jennifer Attending Unavailable Kuenzler, Jennifer Referring Unavailable [facility] Unavailable Kuenzler, Jennifer Attending Unavailable Kuenzler, Jennifer Referring Unavailable [facility] Unavailable Kuenzler, Jennifer Attending Unavailable Kuenzler, Jennifer Referring Unavailable [facility] Unavailable Kuenzler, Jennifer Attending Unavailable Kuenzler, Jennifer Referring Unavailable [facility] Unavailable Kuenzler, Jennifer Attending Unavailable Kuenzler, Jennifer Referring Unavailable [facility] Unavailable Kuenzler, Jennifer Attending Unavailable Kuenzler, Jennifer Referring Unavailable [facility] Unavailable DOCTOR, [place] Consulting Unavailable Kuenzler, Jennifer Attending Unavailable Kuenzler, Jennifer Referring Unavailable [facility] Unavailable Kuenzler, Jennifer Attending Unavailable Kuenzler, Jennifer Referring Unavailable [facility] Unavailable Kuenzler, Jennifer Attending Unavailable Kuenzler, Jennifer Referring Unavailable [facility] Unavailable Kuenzler, Jennifer Attending Unavailable Kuenzler, Jennifer Referring Unavailable [facility] Unavailable Kuenzler, Jennifer Attending Unavailable Kuenzler, Jennifer Referring Unavailable [facility] Unavailable Kuenzler, Jennifer Attending Unavailable Kuenzler, Jennifer Referring Unavailable [facility] Unavailable Kuenzler, Jennifer Attending Unavailable Kuenzler, Jennifer Referring Unavailable [facility] Unavailable Kuenzler, Jennifer Attending Unavailable Kuenzler, Jennifer Referring Unavailable [facility] Unavailable Kuenzler, Jennifer Attending Unavailable Kuenzler, Jennifer Referring Unavailable [facility] Unavailable Kuenzler, Jennifer Attending Unavailable Kuenzler, Jennifer Referring Unavailable [facility] Unavailable Kuenzler, Jennifer Attending Unavailable Kuenzler, Jennifer Referring Unavailable [facility] Unavailable Kuenzler, Jennifer Attending Unavailable Kuenzler, Jennifer Referring Unavailable [facility] Unavailable Kuenzler, Jennifer Attending Unavailable Kuenzler, Jennifer Referring Unavailable [facility] Unavailable Kuenzler, Jennifer Attending Unavailable Kuenzler, Jennifer Referring Unavailable [facility] Unavailable Kuenzler, Jennifer Attending Unavailable [facility] Unavailable Kuenzler, Jennifer Referring Unavailable Kuenzler, Jennifer Attending Unavailable Kuenzler, Jennifer Referring Unavailable [facility] Unavailable Kuenzler, Jennifer Attending Unavailable Kuenzler, Jennifer Referring Unavailable [facility] Unavailable Kuenzler, Jennifer Attending Unavailable Kuenzler, Jennifer Referring Unavailable [facility] Unavailable Kuenzler, Jennifer Attending Unavailable Kuenzler, Jennifer Referring Unavailable [facility] Unavailable Kuenzler, Jennifer Attending Unavailable Kuenzler, Jennifer Referring Unavailable [facility] Unavailable Kuenzler, Jennifer Attending Unavailable Kuenzler, Jennifer Referring Unavailable [facility] Unavailable Kuenzler, Jennifer Attending Unavailable Kuenzler, Jennifer Referring Unavailable [facility] Unavailable Kuenzler, Jennifer Attending Unavailable Kuenzler, Jennifer Referring Unavailable [facility] Unavailable [facility] Unavailable Kuenzler, Jennifer Attending Unavailable Kuenzler, Jennifer Referring Unavailable Kuenzler, Jennifer Attending Unavailable Kuenzler, Jennifer Referring Unavailable [facility] Unavailable Francisca Mejia Consulting Unavailable [facility] Attending Unavailable [facility] Referring Unavailable [facility] Unavailable Kuenzler, Jennifer Attending Unavailable Kuenzler, Jennifer Referring Unavailable [facility] Unavailable Kuenzler, Jennifer Attending Unavailable Kuenzler, Jennifer Referring Unavailable [facility] Unavailable Kuenzler, Jennifer Attending Unavailable Kuenzler, Jennifer Referring Unavailable [facility] Unavailable Kuenzler, Jennifer Attending Unavailable Kuenzler, Jennifer Referring Unavailable [facility] Unavailable Kuenzler, Jennifer Attending Unavailable Kuenzler, Jennifer Referring Unavailable [facility] Unavailable Kuenzler, Jennifer Attending Unavailable Kuenzler, Jennifer Referring Unavailable [facility] Unavailable Kuenzler, Jennifer Attending Unavailable Kuenzler, Jennifer Referring Unavailable [facility] Unavailable Kuenzler, Jennifer Attending Unavailable Kuenzler, Jennifer Referring Unavailable [facility] Unavailable Vaishnavi Dietz Attending Unavailable Vaishnavi Dietz Referring Unavailable Ciesa, [facility] Unavailable Kuenzler, Jennifer Attending Unavailable Kuenzler, Jennifer Referring Unavailable [facility] Unavailable Kuenzler, Jennifer Attending Unavailable Kuenzler, Jennifer Referring Unavailable Ciesa, [facility] Unavailable Kuenzler, Jennifer Attending Unavailable Kuenzler, Jennifer Referring Unavailable [facility] Unavailable Kuenzler, Jennifer Attending Unavailable Kuenzler, Jennifer Referring Unavailable [facility] Unavailable Kuenzler, Jennifer Attending Unavailable Kuenzler, Jennifer Referring Unavailable [facility] Unavailable Kuenzler, Jennifer Attending Unavailable Kuenzler, Jennifer Referring Unavailable [facility] Unavailable Vaishnavi Dietz Attending Unavailable Vaishnavi Dietz Referring Unavailable [facility] Unavailable Vaishnavi Dietz Attending Unavailable Vaishnavi Dietz Referring Unavailable [facility] Unavailable Kuenzler, Jennifer Attending Unavailable Kuenzler, Jennifer Referring Unavailable [facility] Unavailable Kuenzler, Jennifer Attending Unavailable Kuenzler, Jennifer Referring Unavailable [facility] Unavailable Kuenzler, Jennifer Attending Unavailable Kuenzler, Jennifer Referring Unavailable [facility] Unavailable Danelle Myers Attending Unavailable Danelle Myers Referring Unavailable [facility] Unavailable Kuenzler, Jennifer Attending Unavailable Kuenzler, Jennifer Referring Unavailable [facility] Unavailable Kuenzler, Jennifer Attending Unavailable Kuenzler, Jennifer Referring Unavailable [facility] Unavailable Kuenzler, Jennifer Attending Unavailable Kuenzler, Jennifer Referring Unavailable [facility] Unavailable Kuenzler, Jennifer Attending Unavailable Kuenzler, Jennifer Referring Unavailable [facility] Unavailable Kuenzler, Jennifer Attending Unavailable Kuenzler, Jennfier Referring Unavailable [facility] Unavailable Kuenzler, Jennifer Attending Unavailable Kuenzler, Jennifer Referring Unavailable [facility] Unavailable Kuenzler, Jennifer Attending Unavailable Kuenzler, Jennifer Referring Unavailable [facility] Unavailable Kuenzler, Jennifer Attending Unavailable Kuenzler, Jennifer Referring Unavailable [facility] Unavailable Kuenzler, Jennifer Attending Unavailable Kuenzler, Jennifer Referring Unavailable [facility] Unavailable Kuenzler, Jennifer Attending Unavailable [facility] Referring Unavailable [facility] Unavailable Kuenzler, Jennifer Attending Unavailable Kuenzler, Jennifer Referring Unavailable [facility] Unavailable Kuenzler, Jennifer Attending Unavailable Ciesa Aislinn Referring Unavailable [facility] Unavailable Kuenzler, Jennifer Attending Unavailable Kuenzler, Jennifer Referring Unavailable [facility] Unavailable Kuenzler, Jennifer Attending Unavailable Kuenzler, Jennifer Referring Unavailable [facility] Unavailable Kuenzler, Jennifer Attending Unavailable Kuenzler, Jennifer Referring Unavailable [facility] Unavailable Kuenzler, Jennifer Attending Unavailable Kuenzler, Jennifer Referring Unavailable [facility] Unavailable Kuenzler, Jennifer Attending Unavailable Kuenzler, Jennifer Referring Unavailable [facility] Unavailable Kuenzler, Jennifer Attending Unavailable Kuenzler, Jennifer Referring Unavailable [facility] Unavailable Kuenzler, Jennifer Attending Unavailable Kuenzler, Jennifer Referring Unavailable [facility] Unavailable Kuenzler, Jennifer Attending Unavailable Kuenzler, Jennifer Referring Unavailable [facility] Unavailable Kuenzler, Jennifer Attending Unavailable Kuenzler, Jennifer Referring Unavailable [facility] Unavailable Kuenzler, Jennifer Attending Unavailable Kuenzler, Jennifer Referring Unavailable [facility] Un[facility] Kuenzler, Jennifer Attending Unavailable Kuenzler, Jennifer Referring Unavailable [facility] Unavailable Kuenzler, Jennifer Attending Unavailable Kuenzler, Jennifer Referring Unavailable [facility] Unavailable Ciesa, Aislinn Attending Unavailable Ciesa, Aislinn Referring Unavailable CiAislinn milan Primary Care Unavailable Kuenzler, Jennifer Attending Unavailable Kuenzler, Jennifer Referring Unavailable [facility] Primary [facility] Unavailable Kuenzler, Jennifer Attending Unavailable Kuenzler, Jennifer Referring Unavailable [facility]inn Primary [facility] Unavailable Kuenzler, Jennifer Attending Unavailable Kuenzler, Jennifer Referring Unavailable [facility]inn Primary [facility] Unavailable Kuenzler, Jennifer Attending Unavailable Kuenzler, Jennifer Referring Unavailable [facility]inn Primary [facility] Unavailable Kuenzler, Jennifer Attending Unavailable Kuenzler, Jennifer Referring Unavailable [facility]inn Primary Care Unavailable Kuenzler, Jennifer Attending Unavailable Kuenzler, Jennifer Referring Unavailable [facility]inn Primary [facility] Unavailable Kuenzler, Jennifer Attending Unavailable Kuenzler, Jennifer Referring Unavailable [facility]ies[facility]inn Primary [facility] Unavailable Kuenzler, Jennifer Attending Unavailable Kuenzler, Jennifer Referring Unavailable Cies Aislinn Primary Care Unavailable PROBLEMS PROBLEMS DATE TYPE CONDITION / CODE ATTENDING STATUS SOURCE Unknown M79.606 - Pain in leg, Kumilliler, Active [place] 8 unspecified / [facility] M79.606(ICD-10) Hospital Repository Unknown R53.83 - Other fatigue / Kuenzler, Active [place] 8 R53.83(ICD-10) [facility] Hospital Repository Unknown 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 unspecified / Hospital E71.40(ICD-10) Repository PROCEDURES PROCEDURES No Procedure Records FoundRESULTS RESULTS PROGRESS Observed: 05/31/2018 Status: COMPLETED Source: [facility] [place] 11:17 AM [facility] [place] REPOSITORY HNO ID: [id number] Author: Jennifer Izquierdo Service: (none) Author Type: [...] is also going to be away on [place] and would like to be able to get infusions there again like last year (fax [phone]). O: BP 139/56 Pulse 62 Resp 18 [...] post anticipated vacation and send script to [facility] in [place], [place] for infusions while she is there ([phone]). Follow up in 6 months. Jennifer Izquierdo MD CNOV Observed: 05/31/2018 Status: COMPLETED Source: [facility] [place] 10:40 AM [facility] REPOSITORY Office Visit (NENMMN) FELIX WILD ([id number]) 1950 F Date Time Provider Department 05/31/18 [...] is also going to be away on [place] and would like to be able to get infusions there again like last year (fax [phone]). O: BP 139/56 Pulse 62 Resp 18 [...] post anticipated vacation and send script to [facility] in [place], [place] for infusions while she is there ([phone]). Follow up in 6 months. MD Jennifer [...] 05/31/2018 Noted Resolved Myalgia and myositis, unspecified [KED8204] INVALID FOR*03/11/2016 ANXIETY STATE NOS [F41.1] INVALID [...] for discontinue is not on file. Coenzyme L70-Kishdxp E (COQ10 SG 100* 0 12/10/2011 05/31/2018 [...] Recorded Letter Text Jennifer Izquierdo MD [facility] [place] [address] [phone] , ext [phone] PRESCRIPTION SPECIFICS: NAME: Felix Wild DATE: 05/31/2018 ADDRESS: [address] [place] [address] PHONE: [phone] (home) : 1950 PRESCRIPTION: Carnitine IV infusion ? 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) Jennifer Izquierdo MD Encounter Status:Closed by JENNIFER IZQUIERDO MD on 05/31/18 VENOUS DUPLEX LOWER Observed: 05/12/2018 Status: F Source: [place] EXTREMITY 1:42 PM [facility] REPOSITORY [facility] Cardiovascular Services [address] [place], [place] [address] [place] [address] Venous Duplex US, Unilateral 05/10/18 1256 MR#: [id number] Acct: [id number] Name: FELIX WILD Rep #: [id number] : 1950 67 From: Anthony Washburn MD Attending Dr: Aislinn Espinal NP Status: REG CLI Ordering Dr: Aislinn Espinal COMMUNICATIONS ATTENDANT-C Date: 05/10/18 Location: [facility] Sex: F C [...] Dictated: 05/10/18 1256 Date Transcribed: 05/12/18 1341 Physician Internist: Signed MAGNESIUM Collected: 05/11/2018 Status: F Source: [place] 9:56 AM [facility] REPOSITORY TYPE CODE TESTS RESULT OUT OF RANGE REFERENCE UNITS LAB L501.5200 1.6-2.6 mg/dL Normal MG 2.1 Performed By: #### L501.5200, L506.0500 #### [facility] [address] [place], [address] PREALBUMIN Collected: 05/11/2018 Status: F Source: [place] 9:56 AM [facility] REPOSITORY TYPE CODE TESTS RESULT OUT OF REFERENCE UNITS RANGE LAB L506.0500 20.0-40.0 mg/dL Low PREALBUMIN 19.2 Performed By: #### L501.5200, L506.0500 #### [facility] [address] [place], [address] BNP,B-TYPE NATRIURETIC Collected: 05/11/2018 Status: F Source: [place] PEPTIDE 9:56 AM [facility] REPOSITORY TYPE CODE TESTS RESULT OUT OF RANGE REFERENCE UNITS LAB L503.6620 0-100 pg/mL High B-TYPE 147.4 FATOUMATA PEP Performed By: #### L503.6620 #### [facility] [address] [place], [address] COMPREHENSIVE METABOLIC Collected: 05/06/2018 Status: F Source: [facility] PROFIL 2:04 PM [facility] REPOSITORY TYPE CODE TESTS RESULT OUT OF [...] GAP 5 Performed By: #### L500.4050 #### [facility] [address] [facility] [place], [place], [address] CBC W/DIFF, AUTOMATED Collected: 05/06/2018 Status: F Source: [place] 2:04 PM [facility] REPOSITORY TYPE CODE TESTS RESULT OUT OF [...] Lymph 1.95 Performed By: #### L100.0100 #### [facility] [address] [place], [place], [address] CBC W/DIFF, AUTOMATED Collected: 05/03/2018 Status: F Source: [place] 11:32 AM [facility] REPOSITORY TYPE CODE TESTS RESULT OUT OF [...] Lymph 1.39 Performed By: #### L100.0100 #### [facility] [address] [place], [address] COMPREHENSIVE METABOLIC Collected: 05/03/2018 Status: F Source: [place] 11:32 AM [facility] REPOSITORY Order Comment: Comments: TSH TYPE CODE [...] 6 Performed By: #### L500.4050, L501.9520 #### [facility] [address] [place], [address] THYROID STIM HORMONE Collected: 05/03/2018 Status: F Source: [facility] (TSH) 11:32 AM [facility] REPOSITORY Order Comment: Comments: TSH TYPE CODE TESTS RESULT OUT OF RANGE REFERENCE UNITS LAB L501.9520 0.358-3.74 uIU/mL Normal TSH 1.47 Performed By: #### L500.4050, L501.9520 #### [facility] [address] [place], [address] VITAMIN B12 Collected: 03/10/2018 Status: F Source: [place] 2:51 PM [facility] REPOSITORY TYPE CODE TESTS RESULT OUT OF REFERENCE UNITS RANGE LAB L503.0105 211-911 pg/mL High Vitamin B12 > 2000 Performed By: #### L503.0105 #### [facility] [address] [place], [address] CBC W/DIFF, AUTOMATED Collected: 02/08/2018 Status: F Source: [place] 3:11 PM [facility] REPOSITORY TYPE CODE TESTS RESULT OUT OF [...] Lymph 1.66 Performed By: #### L100.0100 #### [facility] [address] [facility] [place], [place], [address] COMPREHENSIVE METABOLIC Collected: 02/08/2018 Status: F Source: [facility] 3:11 PM [facility] REPOSITORY TYPE CODE TESTS RESULT OUT OF [...] GAP 8 Performed By: #### L500.4050 #### [facility] [address] [facility] [place], [address] OPERATIVE REPORT Observed: 01/25/2018 Status: F Source: [place] 12:57 PM [facility] REPOSITORY [facility] Medical Records Department [address] [facility] [place] [address] Operative Report 01/25/18 1254 MR#: [id number] Acct: [id number] Name: FELIX WILD Rep #: [id number] : 1950 67 From: Vaishnavi Dietz MD PCP: Aislinn Espinal NP Status: REG SDC Y Location: [address] Problem List (1) Urinary tract infection Status: Acute Report of Operation Date of Procedure: 01/25/18 Pre-Operative Diagnosis: urinary tract infection, pelvic pain Post-Operative Diagnosis: same and rectocele Surgery/Procedure Performed:: cystoscopy and pelvic exam under anesthesia Description of Surgical Findings:: normal cystoscopy. very short anterior vaginal wall. grade 3 rectocele. atrophy. 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: Vaishnavi Dietz Type of Anesthesia:: MAC Specimen's [...] Date Vaishnavi Dietz MD CC: Aislinn Espinal COMMUNICATIONS ATTENDANT; Vaishnavi Dietz MD Signed DISCHARGE INSTRUCTION Observed: 01/25/2018 Status: F Source: [place] 12:30 PM [facility] REPOSITORY [facility] Medical Records Department [address] [place] [address] Instructions for Home/Discharge Instructions 01/25/18 1228 MR#: [id number] Acct: [id number] Name: FELIX WILD Rep #: [id number] : 1950 67 From: Vaishnavi Dietz MD [...] DAILY 05/23/13 Triamcinolone Acetonide [Nasacort Aq Nasal [place]] 2 spray NASAL DAILY PRN 05/23/13 Levocarnitine [...] Date Vaishnavi Dietz MD CC: Aislinn Espinal COMMUNICATIONS ATTENDANT URINALYSIS, COMPLETE Collected: 01/18/2018 Status: F Source: [place] 2:47 PM [facility] REPOSITORY Order Comment: How was Urine Obtained? [...] URINE SEEN Performed By: #### L400.0001 #### [facility] [place], [address] Observed: 01/18/2018 Status: F Source: [place] CULTURE, URINE 2:47 PM [facility] REPOSITORY Urine Culture ORGANISM 1: Mixed Gram Pos AND Gram Neg Org [place] Count 50,000-80,000 MIX CULTURE Mixed contaminants. Submit a new specimen if indicated. Performed By: #### M100.0650 #### [facility] [address] [place], [address] KIDNEY AND BLADDER Observed: 01/17/2018 Status: F Source: [place] 1:57 PM [facility] REPOSITORY [facility] Imaging Services [address] [place] [address] Kidney and Bladder MR#: [id number] Acct: [id number] Name: FELIX WILD Rep #: [id number] : 1950 F 67 From: Tee Weems PCP: Aislinn Espinal NP Status: REG CLI Study: Kidney and Bladder Date of Exam: 01/17/18 Exam# [id number] Ordering Dr: Vaishnavi Dietz MD STUDY: RENAL [...] CC: Aislinn Espinal NP; Vaishnavi Dietz MD Physician Internist: Signed TRANSVAGINAL Observed: 12/29/2017 Status: F Source: [place] NON- 1:42 PM [facility] REPOSITORY [facility] Imaging Services [address] [place] [address] Transvaginal Non- MR#: [id number] Acct: [id number] Name: FELIX WILD Rep #: [id number] : 1950 F 67 From: Jacky Hanson MD PCP: Aislinn Espinal NP Status: REG CLI Study: Transvaginal Non- Date of Exam: 12/29/17 Exam# [id number] Ordering Dr: Vaishnavi Dietz MD STUDY: ULTRASOUND [...] CC: Aislinn Espinal NP; Vaishnavi Dietz MD Physician Internist: Signed DOWNTIME REPORT Observed: 12/09/2017 Status: F Source: [place] 12:10 PM [facility] Medical Records Department [address] [facility] [place] [address] Downtime Report MR#: [id number] Acct: [id number] Name: FELIX WILD Rep #: [id number] : 1950 67 From: Elmer Braden PCP: Aislinn Espinal NP Status: REG CLI This patient was seen during an EMR downtime November 22, 2017 - November 29, 2017. This patient may have a combination of paper and electronic documentation or all paper documentation. All documentation is viewable within the e-chart portion of [facility] for each patient visit. DOWNTIME REPORT Observed: 12/09/2017 Status: F Source: [place] 12:09 PM [facility] Medical Records Department [address] [place] [address] Downtime Report MR#: [id number] Acct: [id number] Name: FELIX WILD Rep #: [id number] : 1950 67 From: Elmer Braden PCP: Aislinn Espinal NP Status: REG CLI This patient was seen during an EMR downtime November 22, 2017 - November 29, 2017. This patient may have a combination of paper and electronic documentation or all paper documentation. All documentation is viewable within the e-chart portion of [facility] for each patient visit. FOOT MIN 3 VIEWS Observed: 12/03/2017 Status: F Source: [place] 12:37 PM [facility] REPOSITORY [facility] Imaging Services [address] [place] [address] Foot min 3 Views MR#: [id number] Acct: [id number] Name: FELIX WILD Rep #: [id number] : 1950 F 67 From: Yahir Wolfe MD PCP: Aislinn Espinal NP Status: REG CLI Study: Foot min 3 Views Date of Exam: 12/03/17 Exam# [id number] Ordering Dr: Aislinn Espinal STUDY: X-RAY - [...] Service support , CC: Aislinn Espinal NP Physician Internist: Signed PROGRESS Observed: 12/01/2017 Status: COMPLETED Source: [place] 3:16 PM [facility] [place] REPOSITORY HNO ID: [id number] Author: Jennifer Izquierdo Service: (none) Author Type: [...] She was been seen by PCP and baker test and has referred to urology but has [...] MD CNOV Observed: 12/01/2017 Status: COMPLETED Source: [place] 2:40 PM [facility] REPOSITORY Office Visit (NENMMN) FELIX WILD ([id number]) 1950 F Date Time Provider Department 12/01/17 [...] She was been seen by PCP and baker test and has referred to urology but has [...] 1 capsule by mouth once * COENZYME Z87-CSTICEO E 100 MG* Take by mouth. FLUTICASONE 100 MCG-SALMETERO* Inhale 1 Puff as instructed t* MULTIVITAMIN TABLET Take one(1) tablet daily. ALIGN 4 MG CAPSULE Take one(1) tablet daily. SULINDAC 150 MG TABLET Take one(1) tablet two(2) cherry* ALBUTEROL SULFATE HFA 90 MCG/* Use 2 puffs every 4 hours as * Problem List As Of Date 12/01/2017 Noted Resolved Myalgia and myositis, unspecified [BWR2984] INVALID FOR*03/11/2016 ANXIETY STATE NOS [F41.1] INVALID [...] Recorded Letter Text Jennifer Izquierdo MD [facility] [place] [address] [place] [address] [phone] , ext [phone] PRESCRIPTION SPECIFICS: NAME: Felix Wild DATE: 12/01/2017 ADDRESS: [address] [place] [address] PHONE: [phone] (home) : 1950 PRESCRIPTION: Carnitine IV infusion [...] Status: F Source: [place] 2:40 PM [facility] REPOSITORY Order Comment: 46 TYPE CODE TESTS RESULT OUT OF RANGE REFERENCE UNITS LAB L501.3620 26-192 U/L Normal CPK TOTAL 68 Performed By: #### L501.3620 #### [facility] [address] [place], [address] URINALYSIS, ROUTINE Collected: 11/16/2017 Status: F Source: [place] (DIPSTICK) 11:12 AM [facility] REPOSITORY Order Comment: How was Urine Obtained? [...] ESTERASE 500 Performed By: #### L400.2011 #### [facility] [address] [place], [address] Observed: 11/16/2017 Status: F Source: [place] CULTURE, URINE 11:12 AM [facility] REPOSITORY Urine Culture ORGANISM 1: Escherichia coli [place] Count >100,000 Escherichia coli: REACTION Amoxacillin/Clavulanic Acid [...] <=20 S (NF) indicates non-formulary drug at [facility]. Approval by Infectious Disease Specialist required before non-formulary drugs may be ordered and/or dispensed. Performed By: #### M100.0650 #### [facility] [address] [place], [address] CBC W/DIFF, AUTOMATED Collected: 08/12/2017 Status: F Source: [place] 10:15 AM [facility] REPOSITORY TYPE CODE TESTS RESULT OUT OF [...] Lymph 1.50 Performed By: #### L100.0100 #### [facility] [address] [place], [address] COMPREHENSIVE METABOLIC Collected: 08/12/2017 Status: F Source: T[facility] 10:15 AM [facility] REPOSITORY TYPE CODE TESTS RESULT OUT OF [...] GAP 7 Performed By: #### L500.4050 #### [facility] [address] [place], [address] ALLERGIES ALLERGIES DATE TYPE / NAME / CODE REACTION SEVERITY SOURCE CODE 07/08/2018 Drug pentazocine Unknown Unknown [place] Allergy/41 lactate/[id number](R [facility] 0495027[facility] 07/08/2018 Drug pentazocine/[id number] Unknown Unknown [place] Allergy/41 83(RXNORM) [facility] 2050008([facility]) Repository 07/08/2018 Drug metoclopramide/F0060 Other Unknown [place] Allergy/41 03156(RXNORM) [facility] 3352502([facility]) Repository 03/13/2004 DRUG PENTAZOCINE OTHER: SEE C [address] [id number]([facility]) 09/11/2002 DRUG METOCLOPRAMIDE [address] 2655016([facility]) ENCOUNTERS ENCOUNTERS ADMIT/DISCHARGE ACCOUNT ADMITTING ENCOUNTER LOCATION SOURCE NUMBER CLASS 07/08/2018 [id number] [facility] ing:MEDOUTP Repository 07/06/2018 [id number] [facility] ing:MEDOUTP Repository 07/04/2018 [id number] [facility] ing:MEDOUTP Repository 07/01/2018 [id number] [facility] ing:MEDOUTP Repository 06/29/2018 [id number] [facility] ing:MEDOUTP Repository 06/24/2018 [id number] [facility] ing:MEDOUTP Repository 06/20/2018 [id number] [facility] Repository 06/17/2018 [id number] [facility] Repository 06/13/2018 [id number] [facility] ing[facility] Repository 06/10/2018 [id number] [facility] Repository 06/09/2018 [id number] [facility] ing[facility] Repository 06/07/2018 [id number] [facility] Repository 06/03/2018 [id number] [facility] ing[facility] Repository 06/01/2018 [id number] [facility] Repository 05/31/2018/05/31/20 [id number] Ambulatory [address] Repository 05/27/2018 [id number] [facility] ing[facility] Repository 05/24/2018 [id number] Ambulatory Building:[facility] Repository 05/24/2018 [id number] Ambulatory [facility] ing:MEDOUTP Repository 05/20/2018 [id number] [facility] ing[facility] Repository 05/17/2018 [id number] [facility] ing[facility] Repository 05/13/2018 [id number] [facility] Repository 05/11/2018 [id number] [facility] [place] [facility] Repository 05/10/2018 [id number] [facility] Repository 05/06/2018 [id number] [facility] Repository 05/03/2018 [id number] [facility] Repository 04/29/2018 [id number] [facility] [place] [facility] ing[facility] Repository 04/27/2018 [id number] [facility] [place] [facility] ing:[facility] Repository 04/22/2018 [id number] [facility] [place] [facility] ing:[facility] Repository 04/19/2018 [id number] [facility] [place] [facility] ing:[facility] Repository 04/15/2018 [id number] [facility] [place] [facility] ing:[facility] Repository 04/13/2018 [id number] [facility] [place] [facility] ing:[facility] Repository 04/08/2018 [id number] [facility] [place] [facility] ing:[facility]P Repository 04/05/2018 [id number] [facility] [place] [facility] ing:[facility]P Repository 04/01/2018 [id number] [facility] [place] [facility] ing:[facility]P Repository 03/30/2018 [id number] [facility] [place] [facility] ing:[facility]P Repository 03/25/2018 [id number] [facility] [place] [facility] ing:[facility]P Repository 03/22/2018 [id number] [facility] [place] [facility] ing:[facility] Repository 03/18/2018 [id number] [facility] [place] [facility] ing:[facility] Repository 03/15/2018 [id number] [facility] [place] [facility] ing:[facility]P Repository 03/10/2018 [id number] [facility] [place] [facility] ing:[facility] Repository 03/08/2018 [id number] Ambulatory [place] [facility] ing[facility]MEDOUTP Repository 03/01/2018 [id number] [place] [facility]MED[facility]P Repository 02/25/2018 [id number] [place] [facility] ing[facility]MED[facility]P Repository 02/23/2018 [id number] [facility] [place] [facility] Repository 02/18/2018 [id number] [facility] Repository 02/15/2018 [id number] [facility] [place] [facility] Repository 02/11/2018 [id number] Amb[place] [facility]MED[facility]P Repository 02/08/2018 [id number] [facility] [place] [facility] ing:MTLAB Repository 02/07/2018 [id number] [facility]MED[facility] Repository 02/02/2018 [id number] [facility] Repository 01/28/2018 [id number] [facility] [place] [facility]MED[facility]P Repository 01/25/2018/01/26/20 [id number] Ambulatory [place] [address] [place] [address] HospitalBuild Hospital ing:MEDOUTP Repository 01/21/2018 [id number] [facility] Repository 01/18/2018 [id number] [facility]MED[facility] Repository 01/17/2018 [id number] [facility] [place] [facility] ing:US Repository 01/14/2018 [id number] Ambulatory [place] [facility] ing:MED[facility]P Repository 01/11/2018 [id number] Amb[place] [facility] ing:MEDOUTP Repository 01/07/2018 [id number] [facility]MED[facility] Repository 01/04/2018 [id number] [facility] [place] [facility]MED[facility]P Repository 12/31/2017 [id number] [facility] [place] [facility]P Repository 12/29/2017 [id number] Amb[place] [facility] ing:US Repository 12/28/2017 [id number] [place] [facility] ing:MEDOUTP Repository 12/23/2017 [id number] Ambulatory [place] [facility] ing:MEDOUTP Repository 12/21/2017 [id number] Ambulatory [place] [facility] ing:MEDOUTP Repository 12/17/2017 [id number] [place] [facility] ing:MED[facility]P Repository 12/14/2017 [id number] [place] [facility] ing:MEDOUTP Repository 12/10/2017 [id number] Ambulatory [place] [facility] ing:MEDOUTP Repository 12/07/2017 [id number] Ambulatory [place] [facility] ing:MEDOUTP Repository 12/03/2017 [id number] [place] [facility] 12/03/2017 [id number] [place] [facility] ing:MEDOUTP Repository 12/01/2017/12/02/19 [id number] Ambulatory [address] Repository 11/30/2017 [id number] Ambulatory [place] [facility] ing:MEDOUTP Repository 11/26/2017 [id number] Amb[place] [facility] ing:MEDOUTP Repository 11/23/2017 [id number] Ambulatory [place] [facility] ing:MEDOUTP Repository 11/19/2017 [id number] Ambulatory [place] [facility] ing:MEDOUTP Repository 11/16/2017 [id number] Ambulatory [place] [facility] ing:MEDOUTP Repository 11/12/2017 [id number] Ambulatory [place] [facility] ing:MEDOUTP Repository 11/10/2017 [id number] [place] [facility] ing:MEDOUTP Repository 11/04/2017 [id number] Ambulatory [place] [facility] ing:MEDOUTP Repository 11/02/2017 [id number] Amb[place] [facility] ing:MEDOUTP Repository 10/29/2017 [id number] Ambulatory [place] [facility] ing:MEDOUTP Repository 10/26/2017 [id number] [place] [facility] ing:MEDOUTP Repository 10/22/2017 [id number] Ambulatory [place] [facility] ing:MEDOUTP Repository 10/19/2017 [id number] [place] [facility] ing:MEDOUTP Repository 10/15/2017 [id number] Amb[place] [facility] ing:MEDOUTP Repository 10/12/2017 [id number] Ambulatory [place] [facility] ing:MEDOUTP Repository 10/08/2017 [id number] Ambulatory [place] [facility] ing:MEDOUTP Repository 10/05/2017 [id number] Ambulatory [place] [facility] ing:MEDOUTP Repository 10/01/2017 [id number] Ambulatory [place] [facility] ing:MEDOUTP Repository 09/28/2017 [id number] Ambulatory [place] [facility] ing:MEDOUTP Repository 09/28/2017 [id number] [place] [facility] ing:MEDOUTP Repository 09/24/2017 [id number] Ambulatory [place] [facility] ing:MEDOUTP Repository 09/21/2017 [id number] [place] [facility] ing:MEDOUTP Repository 09/17/2017 [id number] Amb[place] [facility] ing:MEDOUTP Repository 09/14/2017 [id number] [place] [facility] ing:MEDOUTP Repository 09/10/2017 [id number] [place] [facility] ing:MEDOUTP Repository 09/07/2017 [id number] Ambulatory [place] [facility] ing:MEDOUTP Repository 09/03/2017 [id number] [place] [facility] ing:MEDOUTP Repository 09/01/2017 [id number] Ambulatory [facility] ing:MEDOUTP Repository 08/27/2017 [id number] Ambulatory [facility] ing:MEDOUTP Repository 08/24/2017 [id number] Ambulatory [facility] ing:MEDOUTP Repository 08/20/2017 [id number] Ambulatory [facility] ing:MEDOUTP Repository 08/17/2017 [id number] Ambulatory [facility] ing:MEDOUTP Repository 08/13/2017 [id number] Ambulatory [facility] ing:MEDOUTP Repository 08/12/2017 [id number] Ambulatory [facility] ing:MEDOUTP Repository PAYERS PAYERS ENCOUNTER GUARANTOR PAYER SUBSCRIBER SOURCE 07/08/2018 TIGRE Thapa Primary FELIX WILDDOB: [place] [id number] JASMYN Insurance:MEDICARE [id number] [address]Ugg: (330) Number: Repository [phone] () [id number] Date:2018-07-01 07/08/2018 Secondary FELIX LOBATOB: [place] Insurance:[facility] [id number] Community y Number: [facility] [id number] Repository Date:0644-52-13WJ[address] [address]CT: 07/08/2018 Tertiary NOT GIVENUNK Tae Insurance:SELF PAY [facility] Number: Effective Repository Date:2018-07-01 07/06/2018 TIGRE Thapa Primary FELIX Thapa HALLDOB: [place] [id number] JASMYN Insurance:MEDICARE [id number] 14411Mbf: (330) Number: Repository [phone] () [id number] Date:2018-07-01 07/06/2018 Secondary FELIX LOBATOB: [place] Insurance:[facility] [id number] Community y Number: [facility] [id number] Repository Date:5741-76-04[address], [place] [address]OE: 07/06/2018 Tertiary NOT GIVENUNK Tae Insurance:SELF PAY [facility] Effective Repository Date:2018-07-01 07/04/2018 TIGRE Thapa Primary FELIX J HALLDOB: [place] [id number] JASMYN Insurance:MEDICARE [id number] [address]Jsj: (330) Number: Repository [phone] () [id number] Date:2018-07-01 07/04/2018 Secondary FELIX J JUNITODOB: [place] Insurance:[employer] [id number] Community y Number: Hospital [id number] Repository Date:6432-79-42RH [address], [place] [address]NM: 07/04/2018 Tertiary NOT GIVENUNK Tae Insurance:SELF PAY [facility] Number: Effective Repository Date:2018-07-01 07/01/2018 TIGRE Thapa Primary FELIX J HALLDOB: [place] [id number] JASMYN Insurance:MEDICARE [id number] [facility] Hospital [facility] 545[address]Bwb: (330) Number: Repository [phone] () [id number] Date:2018-06-24 07/01/2018 Secondary FELIX J JUNITODOB: [place] [facility] [id number] Community y Number: Hospital [id number] Repository Date:0873-88-87WE [address]OCZZ, [place] [address]HE: 07/01/2018 Tertiary NOT GIVENUNK Tae Insurance:SELF PAY [facility] Number: Effective Repository Date:2018-06-24 06/29/2018 KASH Primary FELIX J HALLDOB: [place] [id number] JASMYN Insurance:MEDICARE [id number] Health System [facility] 18866Ycg: (330) Number: Repository [phone] () [id number] Date:2018-06-24 06/29/2018 Secondary FELIX J HALLDOB: [place] Insurance:[employer]HE[employer]olic [id number] Community y Number: Hospital [id number] Repository Date:1549-47-95QZ [address] [place] [address]BT: 06/29/2018 Tertiary NOT GIVENUNK [place] Insurance:SELF PAY [facility] Number: Effective Repository Date:2018-06-24 06/24/2018 TIGRE Thapa Primary FELIX J HALLDOB: [place] [id number] JASMYN Insurance:MEDICARE [id number] Health System [facility] 28[address]Zan: (330) Number: Repository [phone] () [id number] Date:2018-06-17 06/24/2018 Secondary FELIX J JUNITODOB: [place] Insurance:[employer]HE[employer]olic [id number] Community y Number: Hospital [id number] Repository Date:8923-34-34NJ [address], [place] [address]NY: 06/24/2018 Tertiary NOT GIVENUNK Tae Insurance:SELF PAY [facility] Number: Effective Repository Date:2018-06-17 06/20/2018 TIGRE Thapa Primary FELIX J HALLDOB: [place] [id number] JASMYN Insurance:MEDICARE [id number] Health System [facility] 696[address]Amn: (330) Number: Repository [phone] () [id number] Date:2018-06-17 06/20/2018 Secondary FELIX J HALLDOB: [place] Insurance:[employer]HE[employer]olic [id number] Community y Number: Hospital [id number] Repository Date:3615-62-87YR [address]XUZQAX, [place] [address]DH: 06/20/2018 Tertiary NOT GIVENUNK [place] Insurance:SELF PAY [facility] Number: Effective Repository Date:2018-06-17 06/17/2018 TIGRE Thapa Primary FELIX J HALLDOB: [place] [id number] JASMYN Insurance:MEDICARE [id number] PART A [facility] [address]Eoc: (330) Number: Repository [phone] () [id number] Date:2018-06-16 06/17/2018 Secondary FELIX J HALLDOB: [place] Insurance:[employer]HE[employer]olic [id number] Community y Number: Hospital [id number] Repository Date:4588-51-40SM [address] [place] [address]AO: 06/17/2018 Tertiary NOT GIVENUNK [place] Insurance:SELF PAY [facility] Number: Effective Repository Date:2018-06-16 06/13/2018 TIGRE Thapa Primary FELIX J HALLDOB: [place] [id number] JASMYN Insurance:MEDICARE [id number], [place] PART A [facility] [address]Nky: (330) Number: Repository [phone] () [id number] Date:2018-06-13 06/13/2018 Secondary FELIX J HALLDOB: [place] Insurance:[employer]HE[employer]olic [id number] Community y Number: Hospital [id number] Repository Date:7967-78-51DY [address] [place] [address]FI: 06/13/2018 Tertiary NOT GIVENUNK Tae Insurance:SELF PAY [facility] Number: Effective Repository Date:2018-06-13 06/10/2018 KASH Primary FELIX J HALLDOB: [place] [id number] JASMYN Insurance:MEDICARE [id number] Washington Hospital A [facility] 93226Pfr: (330) Number: Repository [phone] () [id number] Date:2018-06-03 06/10/2018 Secondary FELIX J HALLDOB: [place] Insurance:[employer]HE[employer]olic [id number] Community y Number: Hospital [id number] Repository Date:5711-00-25NT [address] [place] [address] 265[address]BS: 06/10/2018 Tertiary NOT GIVENUNK [place] Insurance:SELF PAY [facility] Number: Effective Repository Date:2018-06-03 06/09/2018 TIGRE Thapa Primary FELIX J HALLDOB: [place] [id number] JASMYN Insurance:MEDICARE [id number] PART A [facility] [address]Wil: (330) Number: Repository [phone] () [id number] Date:2018-06-07 06/09/2018 Secondary FELIX J HALLDOB: [place] Insurance:ANTHE[employer]olic [id number] Community y Number: Hospital [id number] Repository Date:5366-60-35BX [address] [place] [address] 790[address]OT: 06/09/2018 Tertiary NOT GIVENUNK Tae Insurance:SELF PAY [facility] Number: Effective Repository Date:2018-06-07 06/07/2018 TIGRE Thapa Primary FELIX J HALLDOB: [place] [id number] JASMYN Insurance:MEDICARE [id number], [place] PART A [facility] 16879Eje: (330) Number: Repository [phone] () [id number] Date:2018-06-03 06/07/2018 Secondary FELIX J HALLDOB: [place] Insurance:ANTHE[employer]olic [id number] Community y Number: Hospital [id number] Repository Date:3011-57-92FE [address] [place] [address] 75[address]HO: 06/07/2018 Tertiary NOT GIVENUNK [place] Insurance:SELF PAY [facility] Number: Effective Repository Date:2018-06-03 06/03/2018 TIGRE Thapa Primary FELIX J HALLDOB: [place] [id number] JASMYN Insurance:MEDICARE [id number], [place] PART A [facility] [address]Nid: (330) Number: Repository [phone] () [id number] Date:2018-05-27 06/03/2018 Secondary FELIX J JUNITODOB: [place] Insurance:ANTHEMPolic [id number] [facility] y Number: Hospital [id number] Repository Date:7980-41-80VQ [address] [place] [address] 55[address]TW: 06/03/2018 Tertiary NOT GIVENUNK Tae Insurance:SELF PAY [facility] Number: Effective Repository Date:2018-05-27 06/01/2018 KASH Primary FELIX J HALLDOB: [place] [id number] JASMYN Insurance:MEDICARE [id number], [place] PART A [facility] 31029Pyj: (330) Number: Repository [phone] () [id number] Date:2018-05-27 06/01/2018 Secondary FELIX Alanis WILDDOB: [place] Insurance:ANTHEMPolic [id number] [facility] y Number: Hospital [id number] Repository Date:1258-55-92XW [address]HO, [place] [address]DG: 06/01/2018 Tertiary NOT GIVENUNK Tae Insurance:SELF PAY [facility] Number: Effective Repository Date:2018-05-27 05/27/2018 KASH Primary FELIX J JUNITODOB: [place] [id number] JASMYN Insurance:MEDICARE [id number] [place] PART A [facility] [address]Wfu: (330) Number: Repository [phone] () [id number] Date:2018-05-23 05/27/2018 Secondary FELIX J HALLDOB: [place] Insurance:ANTHEMPolic [id number] [facility] y Number: Hospital [id number] Repository Date:4995-25-06OF [address] [place] [address] 783[address]CX: 05/27/2018 Tertiary NOT GIVENUNK Tae Insurance:SELF PAY [facility] Number: Effective Repository Date:2018-05-23 05/24/2018 Felix LobatoB: Primary Felix J JunitoDOB: OHIP Practices Insurance:MedicarePol [id number] Repository Jasmyn icy Number: [address] [place] [id number] [place] [address]Bld: (330) Date:3862-08-56Auxe 65[address]Epr: Name:RN [facility] [phone] (HP) (HP)Tel: (221) [id number], [place] [phone] () 320[address]CE: 05/24/2018 Secondary Felix LobatoB: [place]IP Practices Insurance:[place]/Supp [id number] Repository lementPolicy Number: 6 Jasmyn [id number] [place], [place] Date:0008-86-01Doyu [address]Tms: Name:[address] [place] [address] (HP) [id number]: 05/24/2018 Tertiary Felix LobatoB: [place]IP Practices Insurance:AultcarePol [id number] Repository icy Number: 6 Jasmyn [id number] [place] 00Effective [address]Lua: Date:2008-02-20 - ~(3 5745-00-06Lglf 30 (HP) Name:[facility] [address], [place] [address]ME: 05/24/2018 [facility] OHIP Practices Insurance:[place] [id number] Repository /BSPolicy Number: Jasmyn [id number] [place], [place] Date: - [address]Tiw: (709) [id number] [phone] (HP) Name:[address]sf[address], [place] [address]KS: 05/24/2018 TIGRE Thapa [facility] FELIX LOBATOB: [place] [id number] JASMYN Insurance:MEDICARE [id number] [facility] RDSBIANCA, [place] PART A [facility] 35414Sil: (330) Number: Repository [phone] () [id number] Date:2018-05-23 05/24/2018 Secondary FELIX J HALLDOB: [place] Insurance:ANTHEMPolic [id number] Community y Number: Hospital [id number] Repository Date:6787-38-86RV [address] [place] [address] 812[address]SO: 05/24/2018 Tertiary NOT GIVENUNK Tae Insurance:SELF PAY [facility] Number: Effective Repository Date:2018-05-23 05/20/2018 KASH Primary FELIX J HALLDOB: [place] [id number] JASMYN Insurance:MEDICARE [id number] [address]Oal: (330) Number: Repository [phone] () [id number] Date:2018-05-13 05/20/2018 Secondary FELIX J HALLDOB: [place] Insurance:ANTHEMPolic [id number] Community y Number: Hospital [id number] Repository Date:7575-16-10WU [address] [place] [address] 30473DX: 05/20/2018 Tertiary NOT GIVENUNK [place] Insurance:SELF PAY [facility] Number: Effective Repository Date:2018-05-13 05/17/2018 KASH Primary FELIX J HALLDOB: [place] [id number] JASMYN Insurance:MEDICARE [id number] Health System [facility] 07443Waz: (330) Number: Repository [phone] () [id number] Date:2018-05-13 05/17/2018 Secondary FELIX J HALLDOB: [place] Insurance:ANTHEMPolic [id number] Community y Number: Hospital [id number] Repository Date:8160-27-19UI [address] [place] [address] 54996HY: 05/17/2018 Tertiary NOT GIVENUNK Tae Insurance:SELF PAY [facility] Number: Effective Repository Date:2018-05-13 05/13/2018 KASH Primary FELIX J HALLDOB: [place] [id number] JASMYN Insurance:MEDICARE [id number] [facility] Hospital A [facility] 17590Hmw: (330) Number: Repository [phone] () [id number] Date:2018-05-10 05/13/2018 Secondary FELIX J HALLDOB: [place] Insurance:ANTHEMPolic [id number] Community y Number: Hospital [id number] Repository Date:9592-27-12GT [address] [place] [address] 12015VX: 05/13/2018 Tertiary NOT GIVENUNK [place] Insurance:SELF PAY [facility] Number: Effective Repository Date:2018-05-10 05/11/2018 KASH Primary FELIX J HALLDOB: [place] [id number] JASMYN Insurance:MEDICARE [id number] Washington Hospital A [facility] 38861Upd: (330) Number: Repository [phone] () [id number] Date:2018-05-10 05/11/2018 Secondary FELIX J HALLDOB: [place] Insurance:ANTHEMPolic [id number] Community y Number: Hospital [id number] Repository Date:4291-20-48SC [address] [place] [address] 72966GM: 05/11/2018 Tertiary NOT GIVENUNK Tae Insurance:SELF PAY [facility] Number: Effective Repository Date:2018-05-10 05/10/2018 KASH Primary FELIX J HALLDOB: [place] [id number] JASMYN Insurance:MEDICARE [id number] Health [facility] 02215Tib: (330) Number: Repository [phone] () [id number] Date:2018-05-03 05/10/2018 Secondary FELIX J HALLDOB: [place] Insurance:ANTHEMPolic [id number] Community y Number: Hospital [id number] Repository Date:7021-90-92WF [address] [place] [address] 57712TJ: 05/10/2018 Tertiary NOT GIVENUNK Tae Insurance:SELF PAY [facility] Number: Effective Repository Date:2018-05-03 05/06/2018 TIGRE Thapa Primary FELIX WILDDOB: [place] [id number] JASMYN Insurance:MEDICARE [id number], [place] PART A [facility] 84268Fri: (330) Number: Repository [phone] () [id number] Date:2018-04-29 05/06/2018 Secondary FELIX J HALLDOB: [place] Insurance:ANTHEMPolic [id number] Community y Number: [facility] [id number] Repository Date:2148-36-75MN [address] [place] [address] 76538BL: 05/06/2018 Tertiary NOT GIVENUNK Tae Insurance:SELF PAY [facility] Number: Effective Repository Date:2018-04-29 05/03/2018 TIGRE Thapa Primary FELIX WILDDOB: [place] [id number] JASMYN Insurance:MEDICARE [id number] [facility] Hospital A [facility] 01346Rff: (330) Number: Repository [phone] () [id number] Date:2018-04-29 05/03/2018 Secondary FELIX Alanis WILDDOB: [place] Insurance:ANTHEMPolic [id number] Community y Number: Hospital [id number] Repository Date:0092-12-84VR [address] [place] [address]VT: 05/03/2018 Tertiary NOT GIVENUNK Tae Insurance:SELF PAY [facility] Number: Effective Repository Date:2018-04-29 04/29/2018 TIGRE Thapa Primary FELIX Thapa HALLDOB: [place] [id number] JASMYN Insurance:MEDICARE [id number] Health System [facility] 55789Hmd: (330) Number: Repository [phone] () [id number] Date:2018-04-26 04/29/2018 Secondary FELIX J JUNITODOB: [place] Insurance:ANTHEMPolic [id number] Community y Number: Hospital [id number] Repository Date:8163-76-12BT [address], [place] [address]PG: 04/29/2018 Tertiary NOT GIVENUNK [place] Insurance:SELF PAY [facility] Effective Repository Date:2018-04-26 04/27/2018 TIGRE Thapa Primary FELIX J HALLDOB: Tae [id number] JASMYN Insurance:MEDICARE [id number] [address]3894Mre: (330) Number: Repository [phone] () [id number] Date:2018-04-26 04/27/2018 Secondary FELIX Alanis WILDDOB: [place] [facility] [id number] Community y Number: Hospital [id number] Repository Date:9559-09-91PI [address], [place] [address]AQ: 04/27/2018 Tertiary NOT GIVENUNK [place] Insurance:SELF PAY [facility] Number: Effective Repository Date:2018-04-26 04/22/2018 TIGRE Thapa Primary FELIX J HALLDOB: [place] [id number] JASMYN Insurance:MEDICARE [id number] Health [facility] 41060Flm: (330) Number: Repository [phone] () [id number] Date:2018-04-13 04/22/2018 Secondary FELIX J JUNITODOB: [place] Insurance:ANTHEMPolic [id number] Community y Number: Hospital [id number] Repository Date:6670-95-90HH [address]NFBDMSY, [place] [address]NV: 04/22/2018 Tertiary NOT GIVENUNK [place] Insurance:SELF PAY [facility] Number: Effective Repository Date:2018-04-13 04/19/2018 TIGRE Thapa Primary FELIX J HALLDOB: [place] [id number] JASMYN Insurance:MEDICARE [id number] Health [facility] 96332Kus: (330) Number: Repository [phone] () [id number] Date:2018-04-13 04/19/2018 Secondary FELIX J HALLDOB: [place] Insurance:ANTHEMPolic [id number] Community y Number: Hospital [id number] Repository Date:0105-07-47OK [address] [place] [address] 34193PB: 04/19/2018 Tertiary NOT GIVENUNK [place] Insurance:SELF PAY [facility] Number: Effective Repository Date:2018-04-13 04/15/2018 TIGRE Thapa Primary FELIX J HALLDOB: [place] [id number] JASMYN Insurance:MEDICARE [id number] [facility] 33554Xzg: (330) Number: Repository [phone] () [id number] Date:2018-04-08 04/15/2018 Secondary FELIX J HALLDOB: [place] Insurance:ANTHEMPolic [id number] Community y Number: Hospital [id number] Repository Date:3040-90-61EK [address] [place] [address] 63855OB: 04/15/2018 Tertiary NOT GIVENUNK [place] Insurance:SELF PAY [facility] Number: Effective Repository Date:2018-04-08 04/13/2018 TIGRE Thapa Primary FELIX J HALLDOB: [place] [id number] JASMYN Insurance:MEDICARE [id number] [facility] 03079Zds: (330) Number: Repository [phone] () [id number] Date:2018-04-08 04/13/2018 Secondary FELIX J HALLDOB: [place] Insurance:ANTHEMPolic [id number] Community y Number: Hospital [id number] Repository Date:6815-35-99AV [address] [place] [address] 12655VT: 04/13/2018 Tertiary NOT GIVENUNK [place] Insurance:SELF PAY [facility] Number: Effective Repository Date:2018-04-08 04/08/2018 KASH Primary FELIX J HALLDOB: [place] [id number] [place] Insurance:MEDICARE [id number] PART A [facility] 64770Tov: (330) Number: Repository [phone] () [id number] Date:2018-04-01 04/08/2018 Secondary FELIX J HALLDOB: [place] Insurance:ANTHEMPolic [id number] Community y Number: Hospital [id number] Repository Date:1228-34-59BG [address] [place] [address] 11730IY: 04/08/2018 Tertiary NOT GIVENUNK [place] Insurance:SELF PAY [facility] Number: Effective Repository Date:2018-04-01 04/05/2018 TIGRE Thapa Primary FELIX J HALLDOB: [place] [id number] [place]AS[place]N Insurance:MEDICARE [id number][place] PART A [facility] 48486Dxb: (330) Number: Repository [phone] () [id number] Date:2018-04-01 04/05/2018 Secondary FELIX J HALLDOB: [place] Insurance:ANTHEMPolic [id number] Community y Number: Hospital [id number] Repository Date:3297-95-00WQ [address] [place] [address] 25019TF: 04/05/2018 Tertiary NOT GIVENUNK [place] Insurance:SELF PAY [facility] Number: Effective Repository Date:2018-04-01 04/01/2018 TIGRE Thapa Primary FELIX J HALLDOB: [place] [id number] [place]MY[place] Insurance:MEDICARE [id number] 11970Yqn: (330) Number: Repository [phone] () [id number] Date:2018-03-25 04/01/2018 Secondary FELIX J HALLDOB: [place] Insurance:ANTHEMPolic [id number] Community y Number: Hospital [id number] Repository Date:0246-56-46HK [address] [place] [address] 21381AE: 04/01/2018 Tertiary NOT GIVENUNK [place] Insurance:SELF PAY [facility] Number: Effective Repository Date:2018-03-25 03/30/2018 TIGRE Thapa Primary FELIX WILDDOB: [place] [id number] [place] Insurance:MEDICARE [id number][place] PART A [facility] 40218Xed: (330) Number: Repository [phone] () [id number] Date:2018-03-25 03/30/2018 Secondary FELIX J HALLDOB: [place] Insurance:ANTHEMPolic [id number] Community y Number: Hospital [id number] Repository Date:9468-54-72VE [address] [place] [address] 88696LI: 03/30/2018 Tertiary NOT GIVENUNK [place] Insurance:SELF PAY [facility] Number: Effective Repository Date:2018-03-25 03/25/2018 TIGRE Thapa Primary FELIX WILDDOB: [place] [id number] [place]ASMYN Insurance:MEDICARE [id number][place] PART A [facility] 97017Pps: (330) Number: Repository [phone] () [id number] Date:2018-03-18 03/25/2018 Secondary FELIX Alanis WILDDOB: [place] Insurance:ANTHEMPolic [id number] Community y Number: Hospital [id number] Repository Date:0598-53-99OB [address] [place] [address] 39130PH: 03/25/2018 Tertiary NOT GIVENUNK [place] Insurance:SELF PAY [facility] Number: Effective Repository Date:2018-03-18 03/22/2018 TIGRE Thapa Primary FELIX WILDDOB: [place] [id number] JASMYN Insurance:MEDICARE [id number] A [facility] 21520Uwf: (330) Number: Repository [phone] () [id number] Date:2018-03-18 03/22/2018 Secondary FELIX J JUNITODOB: [place] Insurance:ANTHEMPolic [id number] Community y Number: Hospital [id number] Repository Date:2017-29-61JE [address] [place] [address] 02992FF: 03/22/2018 Tertiary NOT GIVENUNK [place] Insurance:SELF PAY [facility] Number: Effective Repository Date:2018-03-18 03/18/2018 TIGRE Thapa Primary FELIX J HALLDOB: [place] [id number] [place] Insurance:MEDICARE [id number] Health System [facility] 65440Ykl: (330) Number: Repository [phone] () [id number] Date:2018-03-11 03/18/2018 Secondary FELIX Alanis WILDDOB: [place] Insurance:ANTHEMPolic [id number] Community y Number: Hospital [id number] Repository Date:6678-66-39XL [address]DPPDDFB, [place] [address]QD: 03/18/2018 Tertiary NOT GIVENUNK [place] Insurance:SELF PAY [facility] Number: Effective Repository Date:2018-03-11 03/15/2018 TIGRE Thapa Primary FELIX J HALLDOB: [place] [id number] JASMYN Insurance:MEDICARE [id number] 42968Wnx: (330) Number: Repository [phone] () [id number] Date:2018-03-11 03/15/2018 Secondary FELIX J JUNITODOB: [place] Insurance:ANTHEMPolic [id number] Community y Number: Hospital [id number] Repository Date:7551-46-56EP [address] [place] [address] 08359EC: 03/15/2018 Tertiary NOT GIVENUNK [place] Insurance:SELF PAY [facility] Number: Effective Repository Date:2018-03-11 03/10/2018 TIGRE Thapa Primary FELIX J HALLDOB: [place] [id number] [place] Insurance:MEDICARE [id number] Health System [facility] 75758Bgj: (330) Number: Repository [phone] () [id number] Date:2018-03-04 03/10/2018 Secondary FELIX J HALLDOB: [place] Insurance:ANTHEMPolic [id number] Community y Number: Hospital [id number] Repository Date:0069-80-73JT [address] [place] [address] 90739DQ: 03/10/2018 Tertiary NOT GIVENUNK [place] Insurance:SELF PAY [facility] Number: Effective Repository Date:2018-03-04 03/08/2018 TIGRE Thapa Primary FELIX J HALLDOB: [place] [id number] JASMYN Insurance:MEDICARE [id number] Health System [facility] 52875Tsw: (330) Number: Repository [phone] () [id number] Date:2018-03-03 03/08/2018 Secondary FELIX J HALLDOB: [place] Insurance:ANTHEMPolic [id number] Community y Number: Hospital [id number] Repository Date:5782-53-85GP [address] [place] [address] 07474GX: 03/08/2018 Tertiary NOT GIVENUNK [place] Insurance:SELF PAY [facility] Number: Effective Repository Date:2018-03-03 03/01/2018 TIGRE Thapa Primary FELIX J HALLDOB: [place] [id number] JASMYN Insurance:MEDICARE [id number] Health System [facility] 59707Zqx: (330) Number: Repository [phone] () [id number] Date:2018-02-28 03/01/2018 Secondary FELIX J HALLDOB: [place] Insurance:ANTHEMPolic [id number] Community y Number: Hospital [id number] Repository Date:5183-70-31WY [address] [place] [address] 55107QY: 03/01/2018 Tertiary NOT GIVENUNK [place] Insurance:SELF PAY [facility] Number: Effective Repository Date:2018-02-28 02/25/2018 TIGRE Thapa Primary FELIX J HALLDOB: [place] [id number] JASMYN Insurance:MEDICARE [id number] Health System [facility] 60973Dsp: (330) Number: Repository [phone] () [id number] Date:2018-02-22 02/25/2018 Secondary FELIX J HALLDOB: [place] Insurance:ANTHEMPolic [id number] Community y Number: Hospital [id number] Repository Date:8763-47-62YW [address] [place] [address] 80630NG: 02/25/2018 Tertiary NOT GIVENUNK [place] Insurance:SELF PAY [facility] Number: Effective Repository Date:2018-02-22 02/23/2018 TIGRE Thapa Primary FELIX J HALLDOB: [place] [id number] JASMYN Insurance:MEDICARE [id number] Health System [facility] 94540Qfc: (330) Number: Repository [phone] () [id number] Date:2018-02-22 02/23/2018 Secondary FELIX J HALLDOB: [place] Insurance:ANTHEMPolic [id number] Community y Number: Hospital [id number] Repository Date:0841-05-46ZH [address] [place] [address] 46513II: 02/23/2018 Tertiary NOT GIVENUNK [place] Insurance:SELF PAY [facility] Number: Effective Repository Date:2018-02-22 02/18/2018 TIGRE Thapa Primary FELIX J HALLDOB: [place] [id number] [place]MYN Insurance:MEDICARE [id number] Health System [facility] 21665Hnf: (330) Number: Repository [phone] () [id number] Date:2018-02-11 02/18/2018 Secondary FELIX J HALLDOB: [place] Insurance:ANTHEMPolic [id number] Community y Number: Hospital [id number] Repository Date:5162-29-97MZ [address] [place] [address] 05891QS: 02/18/2018 Tertiary NOT GIVENUNK [place] Insurance:SELF PAY Community [facility] Number: Effective Repository Date:2018-02-11 02/15/2018 TIGRE Thapa Primary FELIX Thapa HALLDOB: [place] [id number] [place]ASMYN Insurance:MEDICARE [id number] PART A [facility] 04171Qoj: (330) Number: Repository [phone] () [id number] Date:2018-02-11 02/15/2018 Secondary FELIX J HALLDOB: [place] Insurance:ANTHEMPolic [id number] Community y Number: [facility] [id number] Repository Date:3243-15-91UF [address] [place] [address] 85489GL: 02/15/2018 Tertiary NOT GIVENUNK [place] Insurance:SELF PAY [facility] Number: Effective Repository Date:2018-02-11 02/11/2018 TIGRE Thapa Primary FELIX WILDDOB: [place] [id number] [place]ASMYN Insurance:MEDICARE [id number] [facility] A [facility] 78088Xzo: (330) Number: Repository [phone] () [id number] Date:2018-02-04 02/11/2018 Secondary FELIX Alanis WILDDOB: [place] Insurance:ANTHEMPolic [id number] Community y Number: [facility] [id number] Repository Date:7362-06-75WV [address] [place] [address] 70063ZF: 02/11/2018 Tertiary NOT GIVENUNK [place] Insurance:SELF PAY [facility] Number: Effective Repository Date:2018-02-04 02/08/2018 TIGRE Thapa Primary FELIX WILDDOB: [place] [id number] [place]AS[place] Insurance:MEDICARE [id number] [facility] A [facility] 75698Uii: (330) Number: Repository [phone] () [id number] Date:2018-02-08 02/08/2018 Secondary FELIX J JUNITODOB: [place] Insurance:ANTHEMPolic [id number] Community y Number: Hospital [id number] Repository Date:5436-45-70KJ [address] [place] [address] 36124WS: 02/08/2018 Tertiary NOT GIVENUNK [place] Insurance:SELF PAY [facility] Number: Effective Repository Date:2018-02-08 02/07/2018 TIGRE Thapa Primary FELIX WILDDOB: [place] [id number] [place]AS[place] Insurance:MEDICARE [id number] Health System [facility] 76736Uii: (330) Number: Repository [phone] () [id number] Date:2018-01-31 02/07/2018 Secondary FELIX WILDDOB: [place] Insurance:ANTHEMPolic [id number] Community y Number: Hospital [id number] Repository Date:3165-21-47YM [address] [place] [address] 50776ZR: 02/07/2018 Tertiary NOT GIVENUNK [place] Insurance:SELF PAY [facility] Number: Effective Repository Date:2018-01-31 02/02/2018 TIGRE Thapa Primary FELIX WILDDOB: [place] [id number] [place] Insurance:MEDICARE [id number] Health System [facility] 48814Jyv: (330) Number: Repository [phone] () [id number] Date:2018-01-31 02/02/2018 Secondary FELIXApolinar WILDDOB: [place] Insurance:ANTHEMPolic [id number] Community y Number: Hospital [id number] Repository Date:4362-89-69ZZ [address] [place] [address] 42163QN: 02/02/2018 Tertiary NOT GIVENUNK [place] Insurance:SELF PAY [facility] Number: Effective Repository Date:2018-01-31 01/28/2018 TIGRE Thapa Primary FELIX WILDDOB: [place] [id number] [place] Insurance:MEDICARE [id number] Health System [facility] 75218Wqi: (330) Number: Repository [phone] () [id number] Date:2018-01-21 01/28/2018 Secondary FELIX J HALLDOB: [place] Insurance:ANTHEMPolic [id number] Community y Number: Hospital [id number] Repository Date:1059-51-72EU [address]FCIBEX [place] [address]CK: 01/28/2018 Tertiary NOT GIVENUNK [place] Insurance:SELF PAY [facility] Number: Effective Repository Date:2018-01-21 01/25/2018 KASH Primary FELIX J HALLDOB: [place] [id number] [place]ASMY[place] Insurance:MEDICARE [id number] Health System [facility] 01107Zjp: (330) Number: Repository [phone] () [id number] Date:2018-01-14 01/25/2018 Secondary FELIX J HALLDOB: [place] Insurance:ANTHEMPolic [id number] Community y Number: Hospital [id number] Repository Date:8249-72-87QG [address] [address]LN: 01/25/2018 Tertiary NOT GIVENUNK [place] Insurance:SELF PAY [facility] Number: Effective Repository Date:2018-01-14 01/21/2018 KASH Primary FELIX J HALLDOB: [place] [id number] [place] Insurance:MEDICARE [id number] [facility] 25393Dle: (330) Number: Repository [phone] () [id number] Date:2018-01-14 01/21/2018 Secondary FELIX J HALLDOB: [place] Insurance:ANTHEMPolic [id number] Community y Number: Hospital [id number] Repository Date:6929-87-16NX [address]JQOMSTU, [place] [address]SP: 01/21/2018 Tertiary NOT GIVENUNK [place] Insurance:SELF PAY [facility] Number: Effective Repository Date:2018-01-14 01/18/2018 TIGRE Thapa Primary FELIX J HALLDOB: [place] [id number] JASMYN Insurance:MEDICARE [id number] Health System [facility] 16626Baq: (330) Number: Repository [phone] () [id number] Date:2018-01-14 01/18/2018 Secondary FELIX J HALLDOB: [place] Insurance:ANTHEMPolic [id number] Community y Number: Hospital [id number] Repository Date:8546-10-20PA [address] [place] [address] 64918VQ: 01/18/2018 Tertiary NOT GIVENUNK [place] Insurance:SELF PAY [facility] Number: Effective Repository Date:2018-01-14 01/17/2018 TIGRE Thapa Primary FELIX J HALLDOB: [place] [id number] JASMYN Insurance:MEDICARE [id number] Health System [facility] 28565Ugn: (330) Number: Repository [phone] () [id number] Date:2018-01-13 01/17/2018 Secondary FELIX J HALLDOB: [place] Insurance:ANTHEMPolic [id number] Community y Number: Hospital [id number] Repository Date:0587-37-01EH [address] [place] [address] 39727SG: 01/17/2018 Tertiary NOT GIVENUNK [place] Insurance:SELF PAY [facility] Number: Effective Repository Date:2018-01-13 01/14/2018 TIGRE Thapa Primary FELIX J HALLDOB: [place] [id number] JASMYN Insurance:MEDICARE [id number] Health System [facility] 80864Xgg: (330) Number: Repository [phone] () [id number] Date:2018-01-07 01/14/2018 Secondary FELIX J HALLDOB: [place] Insurance:ANTHEMPolic [id number] Community y Number: Hospital [id number] Repository Date:4868-42-17GA [address] [place] [address] 75862CD: 01/14/2018 Tertiary NOT GIVENUNK [place] Insurance:SELF PAY [facility] Number: Effective Repository Date:2018-01-07 01/11/2018 TIGRE Thapa Primary FELIX J HALLDOB: [place] [id number] JASMYN Insurance:MEDICARE [id number] [place] PART A [facility] 98849Adj: (330) Number: Repository [phone] () [id number] Date:2018-01-07 01/11/2018 Secondary FELIX J HALLDOB: [place] Insurance:ANTHEMPolic [id number] Community y Number: [facility] [id number] Repository Date:8613-35-08OQ [address] [place] [address] 82352PL: 01/11/2018 Tertiary NOT GIVENUNK Tae Insurance:SELF PAY [facility] Number: Effective Repository Date:2018-01-07 01/07/2018 TIGRE [place] Primary FELIX J HALLDOB: Tae [id number] JASMYN Insurance:MEDICARE [id number] [place] PART A [facility] 81274Ubb: (330) Number: Repository [phone] () [id number] Date:2018-01-03 01/07/2018 Secondary FELIX J HALLDOB: [place] Insurance:ANTHEMPolic [id number] Community y Number: [facility] [id number] Repository Date:1742-56-04PL [address] [place] [address] 12452CC: 01/07/2018 Tertiary NOT GIVENUNK [place] Insurance:SELF PAY [facility] Number: Effective Repository Date:2018-01-03 01/04/2018 TIGRE Thapa Primary FELIX J HALLDOB: [place] [id number] JASMYN Insurance:MEDICARE [id number] [facility] A [facility] 48177Txy: (330) Number: Repository [phone] () [id number] Date:2018-01-03 01/04/2018 Secondary FELIX J HALLDOB: T[place] Insurance:ANTHEMPolic [id number] Community y Number: Hospital [id number] Repository Date:1262-57-85RR [address] [place] [address] 65674AI: 01/04/2018 Tertiary NOT GIVENUNK Tae Insurance:SELF PAY [facility] Number: Effective Repository Date:2018-01-03 12/31/2017 TIGRE Thapa Primary FELIX WILDDOB: T[place] [id number] JASMYN Insurance:MEDICARE [id number] Health System [facility] 96480Fcx: (330) Number: Repository [phone] () [id number] Date:2017-12-23 12/31/2017 Secondary FELIX WILDDOB: [place] Insurance:ANTHEMPolic [id number] Community y Number: Hospital [id number] Repository Date:9690-02-25JW [address] [place] [address] 32815LX: 12/31/2017 Tertiary NOT GIVENUNK Tae Insurance:SELF PAY [facility] Number: Effective Repository Date:2017-12-23 12/29/2017 TIGRE Thapa Primary FELIX WILDDOB: [place] [id number] JASMYN Insurance:MEDICARE [id number] Health System [facility] 92260Ajw: (330) Number: Repository [phone] () [id number] Date:2017-12-23 12/29/2017 Secondary FELIXApolinar WILDDOB: Tae Insurance:ANTHEMPolic [id number] Community y Number: Hospital [id number] Repository Date:9671-58-22ZR [address] [place] [address] 32984NA: 12/29/2017 Tertiary NOT GIVENUNK Tae Insurance:SELF PAY [facility] Number: Effective Repository Date:2017-12-23 12/28/2017 TIGRE Thapa Primary FELIX WILDDOB: Tae [id number] JASMYN Insurance:MEDICARE [id number] Health System [facility] 52228Ggx: (330) Number: Repository [phone] () [id number] Date:2017-12-23 12/28/2017 Secondary FELIX J HALLDOB: [place] Insurance:ANTHEMPolic [id number] Community y Number: Hospital [id number] Repository Date:0223-40-73TU [address] [place] [address] [place] [address]FK: 12/28/2017 Tertiary NOT GIVENUNK [place] Insurance:SELF PAY [facility] Number: Effective Repository Date:2017-12-23 12/23/2017 KASH Primary FELIX J HALLDOB: Tae [id number] JASMYN Insurance:MEDICARE [id number] Health System [facility] 35679Aey: (330) Number: Repository [phone] () [id number] Date:2017-12-17 12/23/2017 Secondary FELIX J HALLDOB: Tae Insurance:ANTHEMPolic [id number] Community y Number: Hospital [id number] Repository Date:3213-81-27EX [address]UJGBLBO [place] [address]YA: 12/23/2017 Tertiary NOT GIVENUNK [place] Insurance:SELF PAY [facility] Number: Effective Repository Date:2017-12-17 12/21/2017 KASH Primary FELIX J HALLDOB: Tae [id number] Insurance:MEDICARE [id number] [id number]: (330) Number: Repository [phone] () [id number] Date:2017-12-17 12/21/2017 Secondary FELIX J HALLDOB: [place] Insurance:ANTHEMPolic [id number] Community y Number: Hospital [id number] Repository Date:[id number], [place] [address]ZM: 12/21/2017 Tertiary NOT GIVENUNK [place] Insurance:SELF PAY [facility]: Effective Repository Date:2017-12-17 12/17/2017 TIGRE [place] Primary FELIX J HALLDOB: Tae [id number] JASMYN Insurance:MEDICARE [id number] [address]Hnn: (330) Number: Repository [phone] () [id number] Date:2017-12-10 12/17/2017 Secondary FELIX J H[place]DOB: [place] Insurance:ANTHEMPolic [id number] Community y Number: Hospital [id number] Repository Date:1020-37-75IU [address] [place] [address] 67601UX: 12/17/2017 Tertiary NOT GIVENUNK Tae Insurance:SELF PAY [facility] Number: Effective Repository Date:2017-12-10 12/14/2017 TIGRE Thapa Primary FELIX J HALLDOB: [place] [id number] JASMYN Insurance:MEDICARE [id number] 24841Gif: (330) Number: Repository [phone] () [id number] Date:2017-12-10 12/14/2017 Secondary FELIX J HALLDOB: [place] Insurance:ANTHEMPolic [id number] Community y Number: Hospital [id number] Repository Date:5473-28-29ZP [address], [place] [address]YG: 12/14/2017 Tertiary NOT GIVENUNK Tae Insurance:SELF PAY [facility] Number: Effective Repository Date:2017-12-10 12/10/2017 TIGRE Thapa Primary FELIX J HALLDOB: [place] [id number] [place]ASMYN Insurance:MEDICARE [id number] [address]Ajp: Number: Repository [phone] [id number] -6 () Date:2017-12-03 12/10/2017 Secondary FELIX J HALLDOB: [place] Insurance:ANTHEMPolic [id number] Community y Number: Hospital [id number] Repository Date:7030-35-35LY [address] [place] [address] 75849HR: 12/10/2017 Tertiary NOT GIVENUNK [place] Insurance:SELF PAY [facility] Number: Effective Repository Date:2017-12-03 12/07/2017 TIGRE Thapa Primary FELIX J HALLDOB: [place] [id number] JASMYN Insurance:MEDICARE [id number] PART A [facility] 11426Fmx: (330) Number: Repository [phone] () [id number] Date:2017-12-03 12/07/2017 Secondary FELIX J HALLDOB: [place] Insurance:ANTHEMPolic [id number] Community y Number: [facility] [id number] Repository Date:4834-43-37KI [address] [place] [address] 60991AA: 12/07/2017 Tertiary NOT GIVENUNK [place] Insurance:SELF PAY [facility] Number: Effective Repository Date:2017-12-03 12/03/2017 TIGRE Thapa Primary FELIX J HALLDOB: [place] [id number] JASMYN Insurance:MEDICARE [id number] PART A [facility] [address]Ygc: Number: Repository [phone] [id number] -6 (HP) Date:2017-12-03 12/03/2017 Secondary FELIX J HALLDOB: [place] Insurance:ANTHEMPolic [id number] Community y Number: [facility] [id number] Repository Date:3071-52-85HO [address] [place] [address] 41871VF: 12/03/2017 Tertiary NOT GIVENUNK Tae Insurance:SELF PAY [facility] Number: Effective Repository Date:2017-12-03 12/03/2017 TIGRE Thapa Primary FELIX J HALLDOB: [place] [id number] JASMYN Insurance:MEDICARE [id number] [facility] Hospital A [facility] 59863Rwn: Number: Repository [phone] [id number] -6 (HP) Date:2017-12-01 12/03/2017 Secondary FELIX Alanis WILDDOB: [place] Insurance:ANTHEMPolic [id number] Community y Number: Hospital [id number] Repository Date:5304-22-82PD [address] [place] [address] 56815BS: 12/03/2017 Tertiary NOT GIVENUNK Tae Insurance:SELF PAY Community [facility] Number: Effective Repository Date:2017-12-01 11/30/2017 TIGRE Thapa Primary FELIX J JUNITODOB: [place] [id number] JASMYN Insurance:MEDICARE [id number] 30029Xgb: Number: Repository [phone] [id number] -6 () Date:2017-11-29 11/30/2017 Secondary FELIX J JUNITODOB: [place] Insurance:ANTHEMPolic [id number] [facility] y Number: Hospital [id number] Repository Date:2649-92-98KL [address]IUUHZFE, [place] [address]BC: 11/30/2017 Tertiary NOT GIVENUNK Tae Insurance:SELF PAY [facility] Number: Effective Repository Date:2017-11-29 11/26/2017 TIGRE Thapa Primary FELIX WILDDOB: [place] [id number] JASMYN Insurance:MEDICARE [id number] [facility] 6[address]Ead: (330) Number: Repository [phone] () [id number] Date:2017-11-19 11/26/2017 Secondary FELIX J HALLDOB: [place] Insurance:ANTHEMPolic [id number] Community y Number: Hospital [id number] Repository Date:6773-11-25HN [address]JXBALLA[address] [place] [address] 66217AW: 11/26/2017 Tertiary NOT GIVENUNK [place] Insurance:SELF PAY Community [facility] Number: Effective Repository Date:2017-11-19 11/23/2017 TIGRE Thapa Primary FELIX WILDDOB: [place] [id number] [place] Insurance:MEDICARE [id number] PART A [facility] 59370Vie: (330) Number: Repository [phone] () [id number] Date:2017-11-19 11/23/2017 Secondary FELIX J HALLDOB: [place] Insurance:ANTHEMPolic [id number] Community y Number: Hospital [id number] Repository Date:1708-91-40RQ [address] [place] [address] 60418YG: 11/23/2017 Tertiary NOT GIVENUNK [place] Insurance:SELF PAY [facility] Number: Effective Repository Date:2017-11-19 11/19/2017 TIGRE Thapa Primary FLEIX J HALLDOB: [place] [id number] [place] Insurance:ANTHEMPolic [id number], [place] y Number: Hospital 28940Gcp: [id number] Repository [phone] Date:8693-78-78MD [address] ) [address]56[address]HTTATWF, [place] [address]OA: 11/19/2017 Secondary FELIX J HALLDOB: [place] Insurance:MEDICARE [id number] Community PART A [facility] Hospital Number: Repository [id number] Date:2017-11-12 11/19/2017 Tertiary NOT GIVENUNK [place] Insurance:SELF PAY [facility] Number: Effective Repository Date:2017-11-12 11/16/2017 TIGRE Thapa Primary FELIX J HALLDOB: [place] [id number] [place] Insurance:MEDICARE [id number] PART A [facility] 61313Qel: Number: Repository [phone] [id number] -6 () Date:2017-11-12 11/16/2017 Secondary FELIX J HALLDOB: [place] Insurance:ANTHEMPolic [id number] Community y Number: Hospital [id number] Repository Date:5372-75-00FV [address]XOTOEYY [place] [address]FO: 11/16/2017 Tertiary NOT GIVENUNK Tae Insurance:SELF PAY [facility] Number: Effective Repository Date:2017-11-12 11/12/2017 TIGRE Thapa Primary FELIX J HALLDOB: [place] [id number] [place]MYN Insurance:MEDICARE [id number] Health System [facility] 492[address]Beo: Number: Repository [phone] [id number] -6 (HP) Date:2017-11-02 11/12/2017 Secondary FELIX J HALLDOB: [place] Insurance:ANTHEMPolic [id number] Community y Number: Hospital [id number] Repository Date:1969-78-05SE [address] [place] [address] 65[address]NY: 11/12/2017 Tertiary NOT GIVENUNK [place] Insurance:SELF PAY [facility] Number: Effective Repository Date:2017-11-02 11/10/2017 TIGRE Thapa Primary FELIX J HALLDOB: [place] [id number] JASMYN Insurance:MEDICARE [id number] Health System [facility] [address]64[address]Rhb: Number: Repository [phone] [id number] -6 (HP) Date:2017-11-02 11/10/2017 Secondary FELIX WILDDOB: [place] Insurance:ANTHEMPolic [id number] Community y Number: Hospital [id number] Repository Date:1234-23-90TY [address] [place] [address] 03425FC: 11/10/2017 Tertiary NOT GIVENUNK Tae Insurance:SELF PAY [facility] Number: Effective Repository Date:2017-11-02 11/04/2017 TIGRE Thapa Primary FELIX J HALLDOB: [place] [id number] [place] Insurance:MEDICARE [id number] Health System [facility] 98229Vub: (330) Number: Repository [phone] (HP) [id number] Date:2017-10-29 11/04/2017 Secondary FELIX J HALLDOB: [place] Insurance:ANTHEMPolic [id number] Community y Number: Hospital [id number] Repository Date:8972-69-48LC [address]YLIAXQM, [place] [address]XV: 11/04/2017 Tertiary NOT GIVENUNK [place] Insurance:SELF PAY [facility] Number: Effective Repository Date:2017-10-29 11/02/2017 TIGRE Thapa Primary FELIX J HALLDOB: [place] [id number] [place] Insurance:MEDICARE [id number] Health System [facility] 07727Owx: Number: Repository [phone] [id number] -6 (HP) Date:2017-10-29 11/02/2017 Secondary FELIX Alanis WILDDOB: [place] Insurance:ANTHEMPolic [id number] Community y Number: [facility] [id number] Repository Date:3585-57-73NM [address]ANRSGKK, [place] [address]WC: 11/02/2017 Tertiary NOT GIVENUNK Tae Insurance:SELF PAY [facility] Number: Effective Repository Date:2017-10-29 10/29/2017 TIGRE Thapa Primary FELIX J HALLDOB: [place] [id number] [place] Insurance:MEDICARE [id number] Health System [facility] 677[address]Fkb: Number: Repository [phone] [id number] -6 (HP) Date:2017-10-25 10/29/2017 Secondary FELIX Alanis WILDDOB: [place] [facility] [id number] Community y Number: [facility] [id number] Repository Date:5492-32-96BN [address]LFWXFJJ, [place] [address]KX: 10/29/2017 Tertiary NOT GIVENUNK [place] Insurance:SELF PAY [facility] Number: Effective Repository Date:2017-10-25 10/26/2017 TIGRE Thapa Primary FELIX J JUNITODOB: [place] [id number] JASMYN Insurance:MEDICARE [id number] Health System [facility] 56242Lca: Number: Repository [phone] [id number] -6 (HP) Date:2017-10-25 10/26/2017 Secondary FELIX J HALLDOB: [place] Insurance:ANTHEMPolic [id number] Community y Number: Hospital [id number] Repository Date:0155-00-44XL [address]UJARMLG [place] [address]UQ: 10/26/2017 Tertiary NOT GIVENUNK T[place] Insurance:SELF PAY [facility] Number: Effective Repository Date:2017-10-25 10/22/2017 TIGRE Thapa Primary FELIX J HALLDOB: [place] [id number] [place] Insurance:MEDICARE [id number] Health System [facility] 89348Xnw: Number: Repository [phone] [id number] -6 (HP) Date:2017-10-15 10/22/2017 Secondary FELIX J HALLDOB: [place] Insurance:ANTHEMPolic [id number] Community y Number: Hospital [id number] Repository Date:7765-62-14VZ [address]VSFIXHJ, [place] [address]YA: 10/22/2017 Tertiary NOT GIVENUNK Tae Insurance:SELF PAY [facility] Number: Effective Repository Date:2017-10-15 10/19/2017 KASH Primary FELIX J HALLDOB: [place] [id number] [place]ASMYN Insurance:MEDICARE [id number] Health System [facility] 75785Tdt: Number: Repository [phone] [id number] -6 (HP) Date:2017-10-15 10/19/2017 Secondary FELIX J HALLDOB: [place] Insurance:ANTHEMPolic [id number] Community y Number: Hospital [id number] Repository Date:1996-65-97WF [address]WFGBMBF, [place] [address]DW: 10/19/2017 Tertiary NOT GIVENUNK Tae Insurance:SELF PAY [facility] Number: Effective Repository Date:2017-10-15 10/15/2017 TIGRE Thapa Primary FELIX J HALLDOB: [place] [id number] [place] Insurance:MEDICARE [id number] Health System [facility] 84052Nlv: Number: Repository [phone] [id number] -6 (HP) Date:2017-10-08 10/15/2017 Secondary FELIX J HALLDOB: [place] Insurance:ANTHEMPolic [id number] Community y Number: Hospital [id number] Repository Date:9709-18-60MR [address]PWUJLKC, [place] [address]IU: 10/15/2017 Tertiary NOT GIVENUNK Tae Insurance:SELF PAY [facility] Number: Effective Repository Date:2017-10-08 10/12/2017 TIGRE Thapa Primary FELIX J HALLDOB: [place] [id number] [place] Insurance:MEDICARE [id number] Health System [facility] 90898Ihl: Number: Repository [phone] [id number] -6 (HP) Date:2017-10-08 10/12/2017 Secondary FELIX J HALLDOB: [place] Insurance:ANTHEMPolic [id number] Community y Number: Hospital [id number] Repository Date:5723-32-78NF [address]SYXQYVZ, [place] [address]KE: 10/12/2017 Tertiary NOT GIVENUNK [place] Insurance:SELF PAY [facility] Number: Effective Repository Date:2017-10-08 10/08/2017 TIGRE Thapa Primary FELIX J HALLDOB: [place] [id number] JASMYN Insurance:MEDICARE [id number] Health System [facility] 58911Oqr: Number: Repository [phone] [id number] -6 (HP) Date:2017-10-01 10/08/2017 Secondary FELIX J HALLDOB: [place] Insurance:ANTHEMPolic [id number] Community y Number: Hospital [id number] Repository Date:0960-79-08QS [address] [place] [address] 995[address]KZ: 10/08/2017 Tertiary NOT GIVENUNK [place] Insurance:SELF PAY [facility] Number: Effective Repository Date:2017-10-01 10/05/2017 TIGRE Thapa Primary FELIX J HALLDOB: [place] [id number] [place] Insurance:MEDICARE [id number] [facility] A [facility] 65908Zca: Number: Repository [phone] [id number] -6 (HP) Date:2017-10-01 10/05/2017 Secondary FELIX J HALLDOB: [place] Insurance:ANTHEMPolic [id number] Community y Number: Hospital [id number] Repository Date:1981-44-51RF [address] [place] [address] 72046BB: 10/05/2017 Tertiary NOT GIVENUNK [place] Insurance:SELF PAY [facility] Number: Effective Repository Date:2017-10-01 10/01/2017 TIGRE Thapa Primary FELIX J HALLDOB: [place] [id number] JASMYN Insurance:MEDICARE [id number] Washington Hospital A [facility] 618[address]Nyd: Number: Repository [phone] [id number] -6 (HP) Date:2017-09-24 10/01/2017 Secondary FELIX J HALLDOB: [place] Insurance:ANTHEMPolic [id number] Community y Number: Hospital [id number] Repository Date:9532-14-70IQ [address] [place] [address] 99227OM: 10/01/2017 Tertiary NOT GIVENUNK Tae Insurance:SELF PAY [facility] Number: Effective Repository Date:2017-09-24 09/28/2017 TIGRE Thapa Primary FELIX J HALLDOB: [place] [id number] JASMYN Insurance:MEDICARE [id number] Health System [facility] 630[address]Kab: Number: Repository [phone] [id number] -6 (HP) Date:2017-09-24 09/28/2017 Secondary FELIX J HALLDOB: [place] Insurance:ANTHEMPolic [id number] Community y Number: Hospital [id number] Repository Date:4127-65-58VY [address]ZDNHJMJ [place] [address]YC: 09/28/2017 Tertiary NOT GIVENUNK T[place] Insurance:SELF PAY [facility] Number: Effective Repository Date:2017-09-24 09/28/2017 TIGRE Thapa Primary FELIX J HALLDOB: [place] [id number] [place]ASMY[place] Insurance:ANTHEMPolic [id number] [place] y Number: Hospital 717[address]Arh: [id number] Repository [phone] Date:4558-56-53QI [address] ) [address]11096QWBYKZP, [place] [address]ZZ: 09/28/2017 Secondary FELIX J JUNITODOB: [place] Insurance:MEDICARE [id number] [facility] PART A [facility] Hospital Number: Repository [id number] Date:2017-06-02 09/28/2017 Tertiary NOT GIVENUNK Tae Insurance:SELF PAY [facility] Number: Effective Repository Date:2017-06-02 09/24/2017 TIGRE Thapa Primary FELIX J HALLDOB: [place] [id number] [place] Insurance:MEDICARE [id number] [place] PART A [facility] Hospital 13242Zsq: Number: Repository [phone] [id number] -6 () Date:2017-09-17 09/24/2017 Secondary FELIX J HALLDOB: [place] Insurance:ANTHEMPolic [id number] Community y Number: Hospital [id number] Repository Date:0953-72-26IZ [address]RYKMQLO [place] [address]MZ: 09/24/2017 Tertiary NOT GIVENUNK [place] Insurance:SELF PAY Community [facility] Number: Effective Repository Date:2017-09-17 09/21/2017 TIGRE Thapa Primary FELIX J HALLDOB: [place] [id number] [place] Insurance:MEDICARE [id number] [facility] 08946Jup: Number: Repository [phone] [id number] -6 (HP) Date:2017-09-17 09/21/2017 Secondary FELIX J HALLDOB: [place] Insurance:ANTHEMPolic [id number] Community y Number: Hospital [id number] Repository Date:6127-28-89FH [address]JPDOYSQ, [place] [address]GX: 09/21/2017 Tertiary NOT GIVENUNK [place] Insurance:SELF PAY [facility] Number: Effective Repository Date:2017-09-17 09/17/2017 TIGRE Thapa Primary FELIX J HALLDOB: [place] [id number] JASMYN Insurance:MEDICARE [id number] Health System [facility] 31190Emg: Number: Repository [phone] [id number] -6 (HP) Date:2017-09-13 09/17/2017 Secondary FELIX J HALLDOB: [place] Insurance:ANTHEMPolic [id number] Community y Number: Hospital [id number] Repository Date:2011-39-08RU [address]JBRXKPKPARESH PEDRAZA [address]KE: 09/17/2017 Tertiary NOT GIVENUNK Tae Insurance:SELF PAY [facility] Number: Effective Repository Date:2017-09-13 09/14/2017 TIGRE Thapa Primary FELIX J HALLDOB: [place] [id number] [place]ASMYN Insurance:MEDICARE [id number] Health System [facility] 68748Jyg: Number: Repository [phone] [id number] -6 (HP) Date:2017-09-13 09/14/2017 Secondary FELIX J HALLDOB: [place] Insurance:ANTHEMPolic [id number] [facility] y Number: Hospital [id number] Repository Date:1721-66-43VD [address]EOTTWUL, [place] [address]YI: 09/14/2017 Tertiary NOT GIVENUNK [place] Insurance:SELF PAY [facility] Number: Effective Repository Date:2017-09-13 09/10/2017 TIGRE Thapa Primary FELIX WILDDOB: [place] [id number] [place]ASMYN Insurance:MEDICARE [id number] Washington Hospital A [facility] 07412Rkj: Number: Repository [phone] [id number] -6 (HP) Date:2017-09-03 09/10/2017 Secondary FELIX J JUNITODOB: [place] Insurance:ANTHEMPolic [id number] Community y Number: [facility] [id number] Repository Date:1829-70-19DE [address] [place] [address] 16785MB: 09/10/2017 Tertiary NOT GIVENUNK Tae Insurance:SELF PAY [facility] Number: Effective Repository Date:2017-09-03 09/07/2017 TIGRE Thapa Primary FELIX WILDDOB: [place] [id number] JASMYN Insurance:MEDICARE [id number] Washington Hospital A [facility] 22926Dni: Number: Repository [phone] [id number] -6 (HP) Date:2017-09-03 09/07/2017 Secondary FELIXApolinar WILDDOB: [place] Insurance:ANTHEMPolic [id number] Community y Number: Hospital [id number] Repository Date:5910-65-97GT [address] [place] [address] 096[address]AT: 09/07/2017 Tertiary NOT GIVENUNK [place] Insurance:SELF PAY [facility] Number: Effective Repository Date:2017-09-03 09/03/2017 TIGRE Thapa Primary FELIX WILDDOB: [place] [id number] JASMYN Insurance:MEDICARE [id number] Health System [facility] 79059Bby: Number: Repository [phone] [id number] -6 (HP) Date:2017-08-27 09/03/2017 Secondary FELIX J JUNITODOB: [place] Insurance:ANTHEMPolic [id number] Community y Number: Hospital [id number] Repository Date:7105-09-69OD [address] [place] [address] 557[address]ER: 09/03/2017 Tertiary NOT GIVENUNK Tae Insurance:SELF PAY [facility] Number: Effective Repository Date:2017-08-27 09/01/2017 TIGRE Thapa Primary FELIX WILDDOB: [place] [id number] JASMYN Insurance:MEDICARE [id number] Health System [facility] 50930Osq: Number: Repository [phone] [id number] -6 (HP) Date:2017-08-27 09/01/2017 Secondary FELIX WILDDOB: [place] [facility] [id number] Community y Number: Hospital [id number] Repository Date:0003-17-62ZW [address] [place] [address] 28646UI: 09/01/2017 Tertiary NOT GIVENUNK Tae Insurance:SELF PAY [facility] Number: Effective Repository Date:2017-08-27 08/27/2017 TIGRE Thapa Primary FELIX WILDDOB: T[place] [id number] [place]ASMYN Insurance:MEDICARE [id number] Health System [facility] 80270Sez: Number: Repository [phone] [id number] -6 (HP) Date:2017-08-20 08/27/2017 Secondary FELIXApolinar WILDDOB: [place] Insurance:ANTHEMPolic [id number] Community y Number: Hospital [id number] Repository Date:5829-11-31NV [address]SCWJDUU, [place] [address]VE: 08/27/2017 Tertiary NOT GIVENUNK [place] Insurance:SELF PAY [facility] Number: Effective Repository Date:2017-08-20 08/24/2017 TIGRE Thapa Primary FELIX WILDDOB: T[place] [id number] [place]N Insurance:MEDICARE [id number] Health System [facility] 96196Ram: Number: Repository [phone] [id number] -6 () Date:2017-08-20 08/24/2017 Secondary FELIX J HALLDOB: [place] Insurance:ANTHEMPolic [id number] Community y Number: Hospital [id number] Repository Date:8184-17-09RN [address]EDZIMLK [place] [address]OM: 08/24/2017 Tertiary NOT GIVENUNK [place] Insurance:SELF PAY [facility] Number: Effective Repository Date:2017-08-20 08/20/2017 TIGRE Thapa Primary FELIX J HALLDOB: [place] [id number] JASMYN Insurance:MEDICARE [id number] Health System [facility] 16486Pcf: Number: Repository [phone] [id number] -6 () Date:2017-08-12 08/20/2017 Secondary FELIX J HALLDOB: T[place] Insurance:ANTHEMPolic [id number] Community y Number: Hospital [id number] Repository Date:9369-77-94JT [address]VWWTUUU [place] [address]KE: 08/20/2017 Tertiary NOT GIVENUNK [place] Insurance:SELF PAY [facility] Number: Effective Repository Date:2017-08-12 08/17/2017 TIGRE Thapa Primary FELIX J HALLDOB: [place] [id number] JASMYN Insurance:MEDICARE [id number] Health [facility] 22952Lwi: (330) Number: Repository [phone] () [id number] Date:2017-08-12 08/17/2017 Secondary FELIX J HALLDOB: T[place] Insurance:ANTHEMPolic [id number] Community y Number: Hospital [id number] Repository Date:3150-85-10RB [address]YAYCBNA, [place] [address]IX: 08/17/2017 Tertiary NOT GIVENUNK T[place] Insurance:SELF PAY Community [facility] Number: Effective Repository Date:2017-08-12 08/13/2017 TIGRE Thapa Primary FELIX WILDDOB: T[place] [id number] JASMYN Insurance:MEDICARE [id number] [id number]: (330) Number: Repository [phone] [id number] Date:2017-08-11 08/13/2017 Secondary FELIX LOBATOB: [place] Insurance:[employer] [id number] Community y Number: Hospital [id number] Repository Date:[id number] [place] [address]DI: 08/13/2017 Tertiary NOT GIVENUNK Tae Insurance:SELF PAY [facility] Number: Effective Repository Date:2017-08-11 08/12/2017 TIGRE Thapa Primary FELIX WILDDOB: [place] [id number] JASMYN Insurance:MEDICARE [id number] [address]Cah: Number: Repository [phone] [id number] (HP) Date:2017-08-11 08/12/2017 Secondary FELIX LOBATOB: [place] Insurance:[employer] [id number] Community y Number: Hospital [id number] Repository Date:[id number] [place] [id number]: 08/12/2017 Tertiary NOT GIVENUNK [place] Insurance:SELF PAY [facility] Number: Effective Repository Date:2017-08-11
== END ==
PROVIDERS: Family Provider Nurse Practitioner; PCP Nurse Practitioner; Referring Provider Psychiatry & Neurology Neurology; Visit Provider Psychiatry & Neurology Neurology
DX: E71.314 Muscle carnitine palmitoyltransferase deficiency (principal)
CPT/HCPCS: 96365 ×2; J7050; A4216

== ENCOUNTER → 2018-06-10 09:50 | Outpatient (CLI) | payer MEDICARE, BC, SELFPAY ==
[2018-06-03 10:00] VITALS: BMI 33.7
[2018-06-10 10:11] VITALS: BP 158/85; PULSE 71; RESP 16; TEMP 36.7; O2SAT 100; BMI 35.2
[2018-06-10 13:50] VITALS: BP 161/66; PULSE 88; RESP 16
== END ==
PROVIDERS: Family Provider Nurse Practitioner; PCP Nurse Practitioner; Referring Provider Psychiatry & Neurology Neurology; Visit Provider Psychiatry & Neurology Neurology
DX: E71.314 Muscle carnitine palmitoyltransferase deficiency (principal)
CPT/HCPCS: 96365 ×2; J7050; A4216

== ENCOUNTER → 2018-06-13 10:04 | Outpatient (CLI) | payer MEDICARE, BC, SELFPAY ==
[2018-06-10 10:11] VITALS: BMI 35.2
[2018-06-13 10:29] VITALS: BP 152/87; PULSE 68; RESP 16; TEMP 36.9; O2SAT 99; BMI 35.2
== END ==
PROVIDERS: Family Provider Nurse Practitioner; PCP Nurse Practitioner; Visit Provider Psychiatry & Neurology Neurology
DX: E71.314 Muscle carnitine palmitoyltransferase deficiency (principal)
CPT/HCPCS: 96365 ×2; J7050; A4216

== ENCOUNTER → 2018-06-17 09:42 | Outpatient (CLI) | payer MEDICARE, BC, SELFPAY ==
[2018-06-13 10:29] VITALS: BMI 35.2
[2018-06-17 09:54] VITALS: BP 158/80; PULSE 62; RESP 16; TEMP 36.6; O2SAT 97; BMI 34.1
== END ==
PROVIDERS: Family Provider Nurse Practitioner; PCP Nurse Practitioner; Referring Provider Psychiatry & Neurology Neurology; Visit Provider Psychiatry & Neurology Neurology
DX: E71.314 Muscle carnitine palmitoyltransferase deficiency (principal)
CPT/HCPCS: 96365 ×2; J7050; A4216

== ENCOUNTER → 2018-06-24 09:50 | Outpatient (CLI) | payer MEDICARE, BC, SELFPAY ==
[2018-06-17 09:54] VITALS: BMI 34.1
[2018-06-24 10:00] VITALS: BP 124/67; PULSE 65; RESP 16; TEMP 36.1; O2SAT 99; BMI 34.1
== END ==
PROVIDERS: Family Provider Nurse Practitioner; PCP Nurse Practitioner; Referring Provider Psychiatry & Neurology Neurology; Visit Provider Psychiatry & Neurology Neurology
DX: E71.314 Muscle carnitine palmitoyltransferase deficiency (principal)
CPT/HCPCS: 96365 ×2; J7050; A4216

== ENCOUNTER → 2018-07-01 09:48 | Outpatient (CLI) | payer MEDICARE, BC, SELFPAY ==
[2018-06-24 10:00] VITALS: BMI 34.1
[2018-07-01 10:23] VITALS: BP 140/65; PULSE 66; RESP 16; TEMP 36.8; O2SAT 99; BMI 34.1
== END ==
PROVIDERS: Family Provider Nurse Practitioner; PCP Nurse Practitioner; Referring Provider Psychiatry & Neurology Neurology; Visit Provider Psychiatry & Neurology Neurology
DX: E71.314 Muscle carnitine palmitoyltransferase deficiency (principal)
CPT/HCPCS: 96365; J7050; A4216

== ENCOUNTER → 2018-07-04 09:42 | Outpatient (CLI) | payer MEDICARE, BC, SELFPAY ==
[2018-07-01 10:23] VITALS: BMI 34.1
[2018-07-04 09:51] VITALS: BP 134/66; PULSE 64; RESP 16; TEMP 36.4; O2SAT 100; BMI 34.1
== END ==
PROVIDERS: Family Provider Nurse Practitioner; PCP Nurse Practitioner; Referring Provider Psychiatry & Neurology Neurology; Visit Provider Psychiatry & Neurology Neurology
DX: E71.314 Muscle carnitine palmitoyltransferase deficiency (principal)
CPT/HCPCS: 96365 ×2; J7050; A4216

== ENCOUNTER → 2018-07-06 09:53 | Outpatient (CLI) | payer MEDICARE, BC, SELFPAY ==
[2018-07-01 10:23] VITALS: BMI 34.1
[2018-07-04 09:51] VITALS: BMI 34.1
[2018-07-06 10:10] VITALS: BP 137/65; PULSE 67; RESP 18; TEMP 36.9; O2SAT 100; BMI 34.1
--- OUTSIDE RECORDS SUMMARY | 2018-09-10 02:17 | XMS RPT_ITS ---
:1950 Author Organization OHIP Support Name Relationship Address Phone TIGRE WILD Unavailable [address] + [place] [address] R Unavailable Unavailable TIGRE Pace Unavailable [address] + [place] [address] R Unavailable Unavailable Iliana WILD TIGRE Unavailable [address] + [place] [address] R Unavailable Unavailable Iliana WILD TIGRE Unavailable [address] + [place] [address] R Unavailable Unavailable Unavailable JUNITO TIGRE Unavailable [address] + [place] [address] R Unavailable Unavailable Iliana WILD TIGRE Unavailable [address] + [place] [address] R Unavailable Unavailable Iliana WILD TIGRE Unavailable [address] + [place] [address] R Unavailable Unavailable Unavailable JUNITO TIGRE Unavailable [address] + [place] [address] R Unavailable Unavailable Iliana WILD TIGRE Unavailable [address] + [place] [address] R Unavailable Unavailable Unavailable JUNITO TIGRE Unavailable [address] + [place] [address] R Unavailable Unavailable Unavailable JUNITO TIGRE Unavailable [address] + [place] [address] R Unavailable Unavailable Unavailable JUNITO TIGRE Unavailable [address] + [place] [address] R Unavailable Unavailable Iliana WILD TIGRE Unavailable [address] + [place] [address] R Unavailable Unavailable Unavailable WILD TIGRE Unavailable [address] + [place] [address] R Unavailable Unavailable Unavailable TIGRE WILD Unavailable [address] + [place] [address] R Unavailable Unavailable TIGRE Pace Unavailable [address] + [place] [address] R Unavailable Unavailable Unavailable TIGRE WILD Unavailable [address] + [place] [address] R Unavailable Unavailable TIGRE Pace Unavailable [address] + [place] [address] R Unavailable Unavailable Unavailable TIGRE WILD Unavailable [address] + [place] [address] R Unavailable Unavailable TIGRE Pace Unavailable [address] + [place] [address] R Unavailable Unavailable TIGRE Pace Unavailable [address] + [place] [address] R Unavailable Unavailable TIGRE Pace Unavailable [address] + [place] [address] R Unavailable Unavailable TIGRE Pace Unavailable [address] + [place] [address] R Unavailable Unavailable TIGRE Pace Unavailable [address] + [place] [address] R Unavailable Unavailable TIGRE Pace Unavailable [address] + [place] [address] R Unavailable Unavailable TIGRE Pace Unavailable [address] + [place] [address] R Unavailable Unavailable Iliana WILD TIGRE Unavailable [address] + [place] [address] R Unavailable Unavailable Unavailable TIGRE WILD Unavailable [address] + [place] [address] R Unavailable Unavailable TIGRE Pace Unavailable [address] + [place] [address] R Unavailable Unavailable Unavailable TIGRE WILD Unavailable [address] + [place] [address] R Unavailable Unavailable TIGRE Pace Unavailable [address] + [place] [address] R Unavailable Unavailable Unavailable JUNITO TIGRE Unavailable [address] + [place] [address] R Unavailable Unavailable Unavailable TIGRE WILD Unavailable [address] + [place] [address] R Unavailable Unavailable Unavailable TIGRE WILD Unavailable [address] + [place] [address] R Unavailable Unavailable Unavailable TIGRE WILD Unavailable [address] + [place] [address] R Unavailable Unavailable Unavailable TIGRE WILD Unavailable [address] + [place] [address] R Unavailable Unavailable Unavailable TIGRE WILD Unavailable [address] + [place] [address] R Unavailable Unavailable Unavailable TIGRE WILD Unavailable [address] + [place] [address] R Unavailable Unavailable TIGRE Pace Unavailable [address] + [place] [address] R Unavailable Unavailable TIGRE Pace Unavailable [address] + [place] [address] R Unavailable Unavailable TIGRE Pace Unavailable [address] + [place] [address] R Unavailable Unavailable TIGRE Pace Unavailable [address] + [place] [address] R Unavailable Unavailable TIGRE Pace Unavailable [address] + [place] [address] R Unavailable Unavailable TIGRE Pace Unavailable [address] + [place] [address] R Unavailable Unavailable TIGRE Pace Unavailable [address] + [place] [address] R Unavailable Unavailable Unavailable TIGRE WILD Unavailable [address] + [place] [address] R Unavailable Unavailable Unavailable TIGRE WILD Unavailable [address] + [place] [address] R Unavailable Unavailable Unavailable TIGRE WILD Unavailable [address] + [place] [address] R Unavailable Unavailable Unavailable TIGRE WILD Unavailable [address] + [place] [address] R Unavailable Unavailable Unavailable TIGRE WILD Unavailable [address] + [place] [address] R Unavailable Unavailable Unavailable JUNITO TIGRE Unavailable [address] + [place] [address] R Unavailable Unavailable TIGRE Pace Unavailable [address] + [place] [address] R Unavailable Unavailable TIGRE Pace Unavailable [address] + [place] [address] R Unavailable Unavailable TIGRE Pace Unavailable [address] + [place] [address] R Unavailable Unavailable Unavailable TIGRE WILD Unavailable [address] + [place] [address] R Unavailable Unavailable TIGRE Pace Unavailable [address] + [place] [address] R Unavailable Unavailable Iliana WILD TIGRE Unavailable [address] + [place] [address] R Unavailable Unavailable Iliana WILD TIGRE Unavailable [address] + [place] [address] R Unavailable Unavailable Iliana WILD TIGRE Unavailable [address] + [place] [address] R Unavailable Unavailable TIGRE Pace Unavailable [address] + [place] [address] R Unavailable Unavailable Iliana WILD TIGRE Unavailable [address] + [place] [address] R Unavailable Unavailable Iliana WILD TIGRE Unavailable [address] + [place] [address] R Unavailable Unavailable Iliana WILD TIGRE Unavailable [address] + [place] [address] R Unavailable Unavailable Unavailable TIGRE WILD Unavailable [address] + [place] [address] R Unavailable Unavailable Iliana WILD TIGRE Unavailable [address] [phone] [place] [address] R Unavailable Unavailable Unavailable JUNITO TIGRE Unavailable [address] + [place] [address] R Unavailable Unavailable Iliana WILD TIGRE Unavailable [address] [phone] [place] [address] R Unavailable Unavailable Iliana WILD TIGRE Unavailable [address] [phone] [place] [address] R Unavailable Unavailable TIGRE Pace Unavailable [address] [phone] [place] [address] R Unavailable Unavailable Iliana WILD TIGRE Unavailable [address] + [place] [address] R Unavailable Unavailable Iliana WILD TIGRE Unavailable [address] + [place] [address] R Unavailable Unavailable TIGRE Pace Unavailable [address] [phone] [place] [address] R Unavailable Unavailable Iliana WILD TIGRE Unavailable [address] [phone] [place] [address] R Unavailable Unavailable Iliana WILD TIGRE Unavailable [address] [phone] [place] [address] R Unavailable Unavailable Iliana WILD TIGRE Unavailable [address] [phone] [place] [address] R Unavailable Unavailable Iliana WILD TIGRE Unavailable [address] + [place] [address] R Unavailable Unavailable Iliana WILD TIGRE Unavailable [address] [phone] [place] [address] R Unavailable Unavailable Iliana WILD TIGRE Unavailable [address] [phone] [place] [address] R Unavailable Unavailable Iliana WILD TIGRE Unavailable [address] [phone] [place] [address] R Unavailable Unavailable Iliana WILD TIGRE Unavailable [address] [phone] [place] [address] R Unavailable Unavailable Iliana WILD TIGRE Unavailable [address] [phone] [place] [address] R Unavailable Unavailable Iliana WILD TIGRE Unavailable [address] [phone] [place] [address] R Unavailable Unavailable Iliana WILD TIGRE Unavailable [address] [phone] [place] [address] R Unavailable Unavailable Iliana WILD TIGRE Unavailable [address] [phone] [place] [address] R Unavailable Unavailable Unavailable JUNITO TIGRE Unavailable [address] [phone] [place] [address] R Unavailable Unavailable Iliana WILD TIGRE Unavailable [address] [phone] [place] [address] R Unavailable Unavailable Iliana WILD TIGRE Unavailable [address] [phone] [place] [address] R Unavailable Unavailable Iliana WILD TIGRE Unavailable [address] [phone] [place] [address] R Unavailable Unavailable Iliana WILD TIGRE Unavailable [address] [phone] [place] [address] R Unavailable Unavailable Iliana WILD TIGRE Unavailable [address] [phone] [place] [address] R Unavailable Unavailable Iliana TIGRE WILD Unavailable [address] [phone] [place] [address] R Unavailable Unavailable Iliana WILD TIGRE Unavailable [address] [phone] [place] [address] R Unavailable Unavailable Iliana WILD TIGRE Unavailable [address] [phone] [place] [address] R Unavailable Unavailable Iliana WILD TIGRE Unavailable [address] [phone] [place] [address] R Unavailable Unavailable Iliana TIGRE WILD Unavailable [address] [phone] [place] [address] R Unavailable Unavailable Iliana WILD TIGRE Unavailable [address] [phone] [place] [address] R Unavailable Unavailable Unavailable JUNITO TIGRE Unavailable [address] [phone] [place] [address] R Unavailable Unavailable Iliana TIGRE WILD Unavailable [address] [phone] [place] [address] R Unavailable Unavailable Iliana WILD TIGRE Unavailable [address] [phone] [place] [address] R Unavailable Unavailable Iliana TIGRE WILD Unavailable [address] + [place] [address] R Unavailable Unavailable Unavailable TIGRE WILD Unavailable [address] + [place] [address] R Unavailable Unavailable Unavailable TIGRE WILD Unavailable [address] [phone] [place] [address] R Unavailable Unavailable Unavailable Care Team Providers Name Role Phone Teddy Aislinn Attending Unavailable Ciesa, Aislinn Referring Unavailable Ciesa, Aislinn Consulting Unavailable KUENZLER, JENNIFER M Attending Unavailable KUENZLER, JENNIFER M Attending Unavailable Kuenzler, Jennifer Attending Unavailable Kuenzler, Jennifer [...] Jennifer Attending Unavailable Kuenzler, Jennifer [facility] Ku[facility]ler, Jennifer Attending Unavailable Kuenzler, Jennifer Referring [facility] Unavailable Kuenzler, Jennifer Attending Unavailable Kuenzler, Jennifer Referring [facility]available [facility] Unavailable Kuenzler, Jennifer Attending Unavailable Kuenzler, Jennifer Referring [facility]available [facility] Unavailable Kuenzler, Jennifer Attending Unavailable Kuenzler, Jennifer Referring [facility] Unavailable Kuenzler, Jennifer Attending Unavailable Kuenzler, Jennifer Referring [facility]available [facility] Unavailable Ciesa, Aislinn Attending Unavailable Ciesa Aislinn Referring Unavailable [facility] Unavailable Kuenzler, Jennifer Attending Unavailable Kuenzler, Jennifer Referring Unavailable [facility] Unavailable Kuenzler, Jennifer Attending Unavailable Kuenzler, Jennifer Referring [facility]available [facility] Unavailable Kuenzler, Jennifer Attending Unavailable Kuenzler, Jennifer Referring [facility]available [facility] Unavailable Kuenzler, Jennifer Attending Unavailable Kuenzler, Jennifer Referring [facility]available [facility] Unavailable Kuenzler, Jennifer Attending Unavailable Kuenzler, Jennifer Referring [facility]available [facility] Unavailable Kuenzler, Jennifer Attending Unavailable Kuenzler, Jennifer Referring Unavailable [facility] Unavailable Kuenzler, Jennifer Attending Unavailable Kuenzler, Jennifer Referring Unavailable [facility] Unavailable Kuenzler, Jennifer Attending Unavailable Kuenzler, Jennifer Referring Unavailable [facility] Unavailable Kuenzler, Jennifer Attending Unavailable Kuenzler, Jennifer Referring Unavailable [facility] Unavailable Kuenzler, Jennifer Attending Unavailable Ciesa Aislinn Referring Unavailable [facility] Unavailable Kuenzler, Jennifer Attending Unavailable Kuenzler, Jennifer Referring Unavailable [facility] Unavailable Kuenzler, Jennifer Attending Unavailable Ciesa, Aislinn Referring [facility]available [facility] Unavailable Kuenzler, Jennifer Attending Unavailable Kuenzler, Jennifer Referring [facility] Unavailable Kuenzler, Jennifer Attending Unavailable Kuenzler, Jennifer Referring [facility]available [facility] Unavailable Kuenzler, Jennifer Attending Unavailable Kuenzler, Jennifer Referring [facility]available [facility] Unavailable Kuenzler, Jennifer Attending Unavailable Kuenzler, Jennifer Referring Unavailable [facility] Unavailable Kuenzler, Jennifer Attending Unavailable Kuenzler, Jennifer Referring Unavailable [facility] Unavailable Kuenzler, Jennifer Attending Unavailable Kuenzler, Jennifer Referring Unavailable [facility] Unavailable Kuenzler, Jennifer Attending Unavailable Kuenzler, Jennifer Referring [facility] Unavailable Kuenzler, Jennifer Attending Unavailable Kuenzler, Jennifer Referring [facility] Unavailable Danelle Myers Attending Unavailable Danelle Myers Referring Unavailable [facility] Unavailable Kuenzler, Jennifer Attending Unavailable Kuenzler, Jennifer Referring Unavailable [facility] Unavailable Kuenzler, Jennifer Attending Unavailable Kuenzler, Jennifer Referring [facility] Unavailable Kuenzler, Jennifer Attending Unavailable Kuenzler, Jennifer Referring Unavailable [facility] Unavailable Kuenzler, Jennifer Attending Unavailable Kuenzler, Jennifer Referring Unavailable [facility] Unavailable Kuenzler, Jennifer Attending Unavailable Kuenzler, Jennifer Referring Unavailable [facility] Unavailable Kuenzler, Jennifer Attending Unavailable Kuenzler, Jennifer Referring [facility]available [facility] Unavailable Kuenzler, Jennifer Attending Unavailable Kuenzler, Jennifer Referring [facility] Unavailable Kuenzler, Jennifer Attending Unavailable Kuenzler, Jennifer Referring [facility] Unavailable Vaishnavi Dietz Attending Unavailable Vaishnavi Dietz Referring Unavailable [facility] Unavailable Kuenzler, Jennifer Attending Unavailable Kuenzler, Jennifer Referring Unavailable [facility] Unavailable Kuenzler, Jennifer Attending Unavailable Kuenzler, Jennifer Referring Unavailable [facility] Unavailable Kuenzler, Jennifer Attending Unavailable Kuenzler, Jennifer Referring Unavailable [facility] Unavailable Kuenzler, Jennifer Attending Unavailable Kuenzler, Jennifer Referring Unavailable [facility] Unavailable Kuenzler, Jennifer Attending Unavailable Kuenzler, Jennifer Referring Unavailable [facility] Unavailable Kuenzler, Jennifer Attending Unavailable Kuenzler, Jennifer Referring Unavailable [facility] Referring Unavailable [facility] Unavailable Kuenzler, Jennifer Attending Unavailable Kuenzler, Jennifer Referring Unavailable [facility] Unavailable Francisca Mejia Unavailable [facility] Unavailable Kuenzler, Jennifer Attending Unavailable Kuenzler, Jennifer Referring Unavailable Kuenzler, Jennifer Attending Unavailable Kuenzler, Jennifer Referring Unavailable [facility] Unavailable Kuenzler, Jennifer Attending Unavailable Kuenzler, Jennifer Referring Unavailable [facility] Unavailable Kuenzler, Jennifer Attending Unavailable Kuenzler, Jennifer Referring Unavailable [facility] Unavailable Kuenzler, Jennifer Attending Unavailable Kuenzler, Jennifer Referring Unavailable [facility] Unavailable Kuenzler, Jennifer Attending Unavailable Kuenzler, Jennifer Referring Unavailable [facility] Unavailable Kuenzler, Jennifer Attending Unavailable Kuenzler, Jennifer Referring Unavailable [facility] Unavailable Kuenzler, Jennifer Attending Unavailable Kuenzler, Jennifer Referring Unavailable [facility] Unavailable Kuenzler, Jennifer Attending Unavailable Kuenzler, Jennifer Referring Unavailable [facility] Unavailable Kuenzler, Jennifer Attending Unavailable [facility] Unavailable Kuenzler, Jennifer Referring Unavailable Kuenzler, Jennifer Attending Unavailable Kuenzler, Jennifer Referring [facility]available [facility] Unavailable Kuenzler, Jennifer Attending Unavailable Kuenzler, Jennifer Referring Unavailable [facility] Unavailable Kuenzler, Jennifer Attending Unavailable Kuenzler, Jennifer Referring Unavailable [facility] Unavailable Kuenzler, Jennifer Attending Unavailable Kuenzler, Jennifer Referring Unavailable [facility] Unavailable Kuenzler, Jennifer Attending Unavailable Kuenzler, Jennifer Referring Unavailable [facility] Unavailable Kuenzler, Jennifer Attending Unavailable Kuenzler, Jennifer Referring Unavailable [facility] Unavailable Kuenzler, Jennifer Attending Unavailable Kuenzler, Jennifer Referring Unavailable [facility] Unavailable Kuenzler, Jennifer Attending Unavailable Kuenzler, Jennifer Referring Unavailable [facility] Unavailable Kuenzler, Jennifer Attending Unavailable Kuenzler, Jennifer Referring Unavailable [facility] Unavailable Kuenzler, Jennifer Attending Unavailable Kuenzler, Jennifer Referring Unavailable [facility] Unavailable Kuenzler, Jennifer Attending Unavailable Kuenzler, Jennifer Referring Unavailable [facility] Unavailable Kuenzler, Jennifer Attending Unavailable Kuenzler, Jennifer Referring Unavailable [facility] Unavailable Kuenzler, Jennifer Attending Unavailable Kuenzler, Jennifer Referring Unavailable [facility] Unavailable Kuenzler, Jennifer Attending Unavailable Kuenzler, Jennifer Referring Unavailable [facility] Unavailable Kuenzler, Jennifer Attending Unavailable Kuenzler, Jennifer Referring Unavailable [facility] Unavailable Kuenzler, Jennifer Attending Unavailable Kuenzler, Jennifer Referring Unavailable [facility] Unavailable Kuenzler, Jennifer Attending Unavailable Kuenzler, Jennifer Referring Unavailable [facility] Unavailable Kuenzler, Jennifer Attending Unavailable Kuenzler, Jennifer Referring Unavailable [facility] Unavailable Kuenzler, Jennifer Attending Unavailable Kuenzler, Jennifer Referring [facility]available [facility] Unavailable Kuenzler, Jennifer Attending Unavailable Kuenzler, Jennifer Referring Unavailable [facility] Unavailable Kuenzler, Jennifer Attending Unavailable Kuenzler, Jennifer Referring Unavailable [facility] Unavailable Kuenzler, Jennifer Attending Unavailable [facility] Unavailable Kuenzler, Jennifer Attending Unavailable [facility] Unavailable Kuenzler, Jennifer Attending Unavailable Kuenzler, Jennifer Referring Unavailable Cia Aislinn Primary Care Unavailable Kuenzler, Jennifer Attending [facility] Unavailable Kuenzler, Jennifer Attending Unavailable Kuenzler, Jennifer Referring Unavailable Ciesa, Aislinn Primary Care Unavailable Vaishnavi Dietz Attending Unavailable Johnneski, Vaishnavi Referring Unavailable Ciesa, Aislinn Primary Care Unavailable Vaishnavi Dietz Attending Unavailable JohnneskiVaishnavi Referring Unavailable Ciesa, Aislinn Primary Care Unavailable Kuenzler, Jennifer Attending Unavailable Kuenzler, Jennifer Referring Unavailable Ciesa, Aislinn Primary Care Unavailable Kuenzler, Jennifer Attending Unavailable Kuenzler, Jennifer Referring [facility] Unavailable Kuenzler, Jennifer Attending Unavailable Kuenzler, Jennifer Referring [facility]available [facility] Unavailable DOCTOR, [place] Consulting Unavailable Kuenzler, Jennifer Attending Unavailable Kuenzler, Jennifer Referring Unavailable [facility] Primary Care Unavailable PROBLEMS PROBLEMS DATE TYPE CONDITION / CODE ATTENDING STATUS SOURCE Unknown M79.606 - Pain in leg, Mitra, Active [place] [facility] unspecified / [facility] M79.606(ICD-10) Hospital Repository Unknown R53.83 - Other fatigue / Kuenzler, Active [place] [facility] R53.83(ICD-10) [facility] Hospital Repository Unknown 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, 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 E71.314(ICD-10) Unknown N39.0 - Urinary tract Vaishnavi Dietz Active [place] [facility] infection, site not Community specified / N39.0(ICD-10) Hospital Repository Unknown E71.40 - Disorder of [place]illiler, Active [place] [facility] carnitine metabolism, Jennifer [facility] unspecified / Hospital E71.40(ICD-10) Repository PROCEDURES PROCEDURES No Procedure Records FoundRESULTS RESULTS PROGRESS Observed: 05/31/2018 Status: COMPLETED Source: [place] 11:17 AM [facility] [place] REPOSITORY HNO ID: [id number] Author: Jennifer Izquierdo Service: (none) Author Type: [...] is also going to be away on [place] and would like to be able to get infusions there again like last year (fax [phone]). O: BP 139/56 Pulse 62 Resp 18 [...] post anticipated vacation and send script to [facility] in [place], [place] for infusions while she is there ([phone]). Follow up in 6 months. Jennifer Izquierdo MD CNOV Observed: 05/31/2018 Status: COMPLETED Source: [facility] 10:40 AM [facility] REPOSITORY Office Visit (NENMMN) FELIX WILD ([id number]) 1950 F Date Time Provider Department 05/31/18 [...] is also going to be away on [place] and would like to be able to get infusions there again like last year (fax [phone]). O: BP 139/56 Pulse 62 Resp 18 [...] post anticipated vacation and send script to [facility] in [place], [place] for infusions while she is there ([phone]). Follow up in 6 months. MD Jennifer [...] 05/31/2018 Noted Resolved Myalgia and myositis, unspecified [[id number]] INVALID FOR*03/11/2016 ANXIETY STATE NOS [F41.1] INVALID [...] for discontinue is not on file. Coenzyme [id number] E (COQ10 SG 100* 0 12/10/2011 05/31/2018 [...] Recorded Letter Text Jennifer Izquierdo MD [facility] [place] [address] [phone] , ext [phone] PRESCRIPTION SPECIFICS: NAME: Felix Wild DATE: 05/31/2018 ADDRESS: [address] [place] [address] PHONE: [phone] (home) : 1950 PRESCRIPTION: Carnitine IV infusion ? 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) Jennifer Izquierdo MD Encounter Status:Closed by JENNIFER IZQUIERDO MD on 05/31/18 VENOUS DUPLEX LOWER Observed: 05/12/2018 Status: F Source: [place] EXTREMITY 1:42 PM [facility] Cardiovascular Services [address] [place], [place] [address] [address] Venous Duplex US, Unilateral 05/10/18 1256 MR#: [id number] Acct: [id number] Name: FELIX WILD Rep #: [id number] : 1950 67 From: Anthony Washburn MD Attending Dr: Aislinn Espinal NP Status: REG CLI Ordering Dr: Aislinn Espinal FEEDER DRIVER-C Date: 05/10/18 Location: [facility] Sex: F C [...] Dictated: 05/10/18 1256 Date Transcribed: 05/12/18 1341 Primary Health Organisation Manager: Signed MAGNESIUM Collected: 05/11/2018 Status: F Source: [place] 9:56 AM [facility] TYPE CODE TESTS RESULT OUT OF RANGE REFERENCE UNITS LAB L501.5200 1.6-2.6 mg/dL Normal MG 2.1 Performed By: #### L501.5200, L506.0500 #### [facility] [address] [place], [address] PREALBUMIN Collected: 05/11/2018 Status: F Source: [place] 9:56 AM [facility] TYPE CODE TESTS RESULT OUT OF REFERENCE UNITS RANGE LAB L506.0500 20.0-40.0 mg/dL Low PREALBUMIN 19.2 Performed By: #### L501.5200, L506.0500 #### [facility] [address] [place], [address] BNP,B-TYPE NATRIURETIC Collected: 05/11/2018 Status: F Source: [place]AE [place]PT[place] 9:56 AM [facility] TYPE CODE TESTS RESULT OUT OF RANGE REFERENCE UNITS LAB L503.6620 0-100 pg/mL High B-TYPE 147.4 FATOUMATA PEP Performed By: #### L503.6620 #### [facility] [address] [place], [address] COMPREHENSIVE METABOLIC Collected: 05/06/2018 Status: F Source: TAE PROFIL 2:04 PM [facility] TYPE CODE TESTS RESULT OUT OF [...] GAP 5 Performed By: #### L500.4050 #### [facility] [address] [facility]. [place], [place], [address] CBC W/DIFF, AUTOMATED Collected: 05/06/2018 Status: F Source: [place] 2:04 PM [facility] TYPE CODE TESTS RESULT OUT OF [...] Lymph 1.95 Performed By: #### L100.0100 #### [facility] [address] [place], [place], [address] CBC W/DIFF, AUTOMATED Collected: 05/03/2018 Status: F Source: [place] 11:32 AM [facility] TYPE CODE TESTS RESULT OUT OF [...] Lymph 1.39 Performed By: #### L100.0100 #### [facility] [address] [place], [address] COMPREHENSIVE METABOLIC Collected: 05/03/2018 Status: F Source: TAE [place] 11:32 AM [facility] Order Comment: Comments: TSH TYPE CODE [...] 6 Performed By: #### L500.4050, L501.9520 #### [facility] [address] [place], [address] THYROID STIM HORMONE Collected: 05/03/2018 Status: F Source: T[facility] (TSH) 11:32 AM [facility] Order Comment: Comments: TSH TYPE CODE TESTS RESULT OUT OF RANGE REFERENCE UNITS LAB L501.9520 0.358-3.74 uIU/mL Normal TSH 1.47 Performed By: #### L500.4050, L501.9520 #### [facility] [address] [place], [address] VITAMIN B12 Collected: 03/10/2018 Status: F Source: [place] 2:51 PM [facility] TYPE CODE TESTS RESULT OUT OF REFERENCE UNITS RANGE LAB L503.0105 211-911 pg/mL High Vitamin B12 > 2000 Performed By: #### L503.0105 #### [facility] [address] [place], [address] CBC W/DIFF, AUTOMATED Collected: 02/08/2018 Status: F Source: [place] 3:11 PM [facility] TYPE CODE TESTS RESULT OUT OF [...] Lymph 1.66 Performed By: #### L100.0100 #### [facility] [address] [facility]. [place], [place], [address] COMPREHENSIVE METABOLIC Collected: 02/08/2018 Status: F Source: [facility] 3:11 PM [facility] TYPE CODE TESTS RESULT OUT OF [...] GAP 8 Performed By: #### L500.4050 #### [facility] [address] [facility] [place], [address] OPERATIVE REPORT Observed: 01/25/2018 Status: F Source: [place] 12:57 PM [facility] Medical Records Department [address] [facility] [place] [address] Operative Report 01/25/18 1254 MR#: [id number] Acct: [id number] Name: FELIX WILD Rep #: [id number] : 1950 67 From: Vaishnavi Dietz MD PCP: Aislinn Espinal NP Status: REG SDC Y Location: [address] Problem List (1) Urinary tract infection Status: Acute Report of Operation Date of Procedure: 01/25/18 Pre-Operative Diagnosis: urinary tract infection, pelvic pain Post-Operative Diagnosis: same and rectocele Surgery/Procedure Performed:: cystoscopy and pelvic exam under anesthesia Description of Surgical Findings:: normal cystoscopy. very short anterior vaginal wall. grade 3 rectocele. atrophy. manager molecular: Vaishnavi Dietz Type of Anesthesia:: MAC Specimen's [...] Date Vaishnavi Dietz MD CC: Aislinn Espinal FEEDER DRIVER; Vaishnavi Dietz MD Signed DISCHARGE INSTRUCTION Observed: 01/25/2018 Status: F Source: [place] 12:30 PM [facility] Medical Records Department [address] [place] [address] Instructions for Home/Discharge Instructions 01/25/18 1228 MR#: [id number] Acct: [id number] Name: FELIX WILD Rep #: [id number] : 1950 67 From: Vaishnavi Dietz MD [...] DAILY 05/23/13 Triamcinolone Acetonide [Nasacort Aq Nasal [place]] 2 spray NASAL DAILY PRN 05/23/13 Levocarnitine [...] Date Vaishnavi Dietz MD CC: Aislinn Espinal FEEDER DRIVER URINALYSIS, COMPLETE Collected: 01/18/2018 Status: F Source: [place] 2:47 PM [facility] Order Comment: How was Urine Obtained? [...] URINE SEEN Performed By: #### L400.0001 #### [facility] [place], [address] Observed: 01/18/2018 Status: F Source: TAE CULTURE, URINE 2:47 PM [facility] Urine Culture ORGANISM 1: Mixed Gram Pos AND Gram Neg Org Red House Count 50,000-80,000 MIX CULTURE Mixed contaminants. Submit a new specimen if indicated. Performed By: #### M100.0650 #### [facility] [address] [place], [address] KIDNEY AND BLADDER Observed: 01/17/2018 Status: F Source: TAE 1:57 PM [facility] REPOSIT[facility] Imaging Services [address] [place] [address] Kidney and Bladder MR#: [id number] Acct: [id number] Name: FELIX WILD Rep #: [id number] : 1950 F 67 From: Tee Weems PCP: Aislinn Espinal NP Status: REG CLI Study: Kidney and Bladder Date of Exam: 01/17/18 Exam# [id number] Ordering Dr: Vaishnavi Dietz MD STUDY: RENAL [...] CC: Aislinn Espinal NP; Vaishnavi Dietz MD Primary Health Organisation Manager: Signed TRANSVAGINAL Observed: 12/29/2017 Status: F Source: [place] NON- 1:42 PM [facility] Imaging Services [address] [place] [address] Transvaginal Non- MR#: [id number] Acct: [id number] Name: FELIX WILD Rep #: [id number] : 1950 F 67 From: Jacky Hanson MD PCP: Aislinn Espinal NP Status: REG CLI Study: Transvaginal Non- Date of Exam: 12/29/17 Exam# [id number] Ordering Dr: Vaishnavi Dietz MD STUDY: ULTRASOUND [...] CC: Aislinn Espinal NP; Vaishnavi Dietz MD Primary Health Organisation Manager: Signed DOWNTIME REPORT Observed: 12/09/2017 Status: F Source: TAE 12:[address] [facility] Medical Records Department [address] [place] [address] Downtime Report MR#: [id number] Acct: [id number] Name: FELIX WILD Rep #: [id number] : 1950 67 From: Elmer Braden PCP: Aislinn Espinal NP Status: REG CLI This patient was seen during an EMR downtime November 22, 2017 - November 29, 2017. This patient may have a combination of paper and electronic documentation or all paper documentation. All documentation is viewable within the e-chart portion of [employer] for each patient visit. DOWNTIME REPORT Observed: 12/09/2017 Status: F Source: TAE 12:[address] [facility] Medical Records Department [address] [place] [address] Downtime Report MR#: [id number] Acct: [id number] Name: FELIX WILD Rep #: [id number] : 1950 67 From: Elmer Braden PCP: Aislinn Espinal NP Status: REG CLI This patient was seen during an EMR downtime November 22, 2017 - November 29, 2017. This patient may have a combination of paper and electronic documentation or all paper documentation. All documentation is viewable within the e-chart portion of [employer] for each patient visit. FOOT MIN 3 VIEWS Observed: 12/03/2017 Status: F Source: [place] 12:37 PM [facility] Imaging Services [address] [place] [address] Foot min 3 Views MR#: [id number] Acct: [id number] Name: FELIX WILD Rep #: [id number] : 1950 F 67 From: Yahir Wolfe MD PCP: Aislinn Espinal NP Status: REG CLI Study: Foot min 3 Views Date of Exam: 12/03/17 Exam# [id number] Ordering Dr: Aislinn Espinal STUDY: X-RAY - [...] or dislocation is seen. Electronically Signed: Yahir oWlfe MD at 15:12 EDT , Service support , CC: Aislinn Espinal NP Primary Health Organisation Manager: Signed PROGRESS Observed: 12/01/2017 Status: COMPLETED Source: MAC[place] 3:16 PM [facility] [place] REPOSITORY HNO ID: [id number] Author: Jennifer Izquierdo Service: (none) Author Type: [...] She was been seen by PCP and cost control supervisor and has referred to urology but has [...] difficulty with tandem gait, Romberg negative A/P: Fleix Wild is a 67 year-old woman with [...] MD CNOV Observed: 12/01/2017 Status: COMPLETED Source: MAC[place] 2:40 PM [facility] REPOSITORY Office Visit (NENMMN) FELIX WILD ([id number]) 1950 F Date Time Provider Department 12/01/17 [...] She was been seen by PCP and cost control supervisor and has referred to urology but has [...] 1 capsule by mouth once * COENZYME Q64-VYVUNNF E 100 MG* Take by mouth. FLUTICASONE 100 MCG-SALMETERO* Inhale 1 Puff as instructed t* MULTIVITAMIN TABLET Take one(1) tablet daily. ALIGN 4 MG CAPSULE Take one(1) tablet daily. SULINDAC 150 MG TABLET Take one(1) tablet two(2) cherry* ALBUTEROL SULFATE HFA 90 MCG/* Use 2 puffs every 4 hours as * Problem List As Of Date 12/01/2017 Noted Resolved Myalgia and myositis, unspecified [[id number]] INVALID FOR*03/11/2016 ANXIETY STATE NOS [F41.1] INVALID [...] Recorded Letter Text Jennifer Izquierdo MD [facility] [place] [address] [place] [address] [phone] , ext [phone] PRESCRIPTION SPECIFICS: NAME: Felix Wild DATE: 12/01/2017 ADDRESS: [address] [place] [address] PHONE: [phone] (home) : 1950 PRESCRIPTION: Carnitine IV infusion [...] Status: F Source: TAE [place]IN[place] 2:40 PM [facility] Order Comment: 48 TYPE CODE TESTS RESULT OUT OF RANGE REFERENCE UNITS LAB L501.3620 26-192 U/L Normal CPK TOTAL 68 Performed By: #### L501.3620 #### [facility] [address] [place], [address] URINALYSIS, ROUTINE Collected: 11/16/2017 Status: F Source: TAE (DIPSTICK) 11:12 AM [facility] Order Comment: How was Urine Obtained? [...] ESTERASE 500 Performed By: #### L400.2011 #### [facility] [address] [place], [address] Observed: 11/16/2017 Status: F Source: TAE CULTURE, URINE 11:12 AM [facility] Urine Culture ORGANISM 1: Escherichia coli Red House Count >100,000 Escherichia coli: REACTION Amoxacillin/Clavulanic Acid [...] <=20 S (NF) indicates non-formulary drug at [facility]. Approval by Infectious Disease Specialist required before non-formulary drugs may be ordered and/or dispensed. Performed By: #### M100.0650 #### [facility] [address] [place], [address] CBC W/DIFF, AUTOMATED Collected: 08/12/2017 Status: F Source: [place] 10:15 AM [facility] TYPE CODE TESTS RESULT OUT OF [...] Lymph 1.50 Performed By: #### L100.0100 #### [facility] [address] [place], [address] COMPREHENSIVE METABOLIC Collected: 08/12/2017 Status: F Source: TAE [facility] 10:15 AM [facility] TYPE CODE TESTS RESULT OUT OF [...] GAP 7 Performed By: #### L500.4050 #### [facility] [address] [place], [address] ALLERGIES ALLERGIES DATE TYPE / NAME / CODE REACTION SEVERITY SOURCE CODE 07/08/2018 Drug pentazocine Unknown Unknown [place] Allergy/41 lactate/[id number]([facility] 6662647[facility] 07/08/2018 Drug pentazocine/Q5930040 Unknown Unknown [place] Allergy/41 83(RXNORM) [facility] 9371381([facility]) Repository 07/08/2018 Drug metoclopramide/F0060 Other Unknown [place] Allergy/41 85322(RXNORM) [facility] 1440458([facility]) Repository 03/13/2004 DRUG PENTAZOCINE OTHER: SEE C [address] 9321697([facility]) 09/11/2002 DRUG METOCLOPRAMIDE [address] 4190538([facility]) ENCOUNTERS ENCOUNTERS ADMIT/DISCHARGE ACCOUNT ADMITTING ENCOUNTER LOCATION SOURCE NUMBER CLASS 07/08/2018 [id number] [facility] ing:MEDOUTP Repository 07/06/2018 [id number] [facility] ing:MEDOUTP Repository 07/04/2018 [id number] [facility] ing:MEDOUTP Repository 07/01/2018 [id number] [facility] ing:MEDOUTP Repository 06/29/2018 [id number] [facility] ing:MEDOUTP Repository 06/24/2018 [id number] [facility] ing:MEDOUTP Repository 06/20/2018 [id number] [facility] Repository 06/17/2018 [id number] [facility] Repository 06/13/2018 [id number] [facility] Repository 06/10/2018 [id number] [facility] Repository 06/09/2018 [id number] [facility] Repository 06/07/2018 [id number] [facility] Repository 06/03/2018 [id number] [facility] Repository 06/01/2018 [id number] [facility] Repository 05/31/2018/05/31/20 [id number] Ambulatory [address] Repository 05/27/2018 [id number] [facility] Repository 05/24/2018 [id number] Ambulatory Building:[facility] Repository 05/24/2018 [id number] Ambulatory [facility] ing:[facility]P Repository 05/20/2018 [id number] [facility] Repository 05/17/2018 [id number] [facility] Repository 05/13/2018 [id number] [facility] Repository 05/11/2018 [id number] [facility] [place] [facility] Repository 05/10/2018 [id number] [facility] Repository 05/06/2018 [id number] [facility] Repository 05/03/2018 [id number] [facility] Repository 04/29/2018 [id number] [place] [facility] ing:[facility]P Repository 04/27/2018 [id number] [place] [facility] ing:[facility]P Repository 04/22/2018 [id number] Ambulatory [place] ing:[facility]P Repository 04/19/2018 [id number] [place] [facility] ing:[facility]P Repository 04/15/2018 [id number] [place]ulatory [place] [facility] ing:MED[facility]P Repository 04/13/2018 [id number] Ambulatory [place] [facility] ing:MED[facility]P Repository 04/08/2018 [id number] [facility]ulatory [place] [facility] ing:MED[facility]P Repository 04/05/2018 [id number] [facility] [place] [facility] ing:MED[facility]P Repository 04/01/2018 [id number] [place] [facility] ing:MED[facility]P Repository 03/30/2018 [id number] [place] [facility] ing:MED[facility]P Repository 03/25/2018 [id number] [place] [facility] ing:MED[facility]P Repository 03/22/2018 [id number] [place] [facility] ing:MED[facility]P Repository 03/18/2018 [id number] Ambulatory [place] [facility] ing:MED[facility]P Repository 03/15/2018 [id number] [facility]ulatory [place] ing:MED[facility]P Repository 03/10/2018 [id number] [place] [facility] ing:MED[facility]P Repository 03/08/2018 [id number] Ambulatory [place] [facility] ing:MED[facility]P Repository 03/01/2018 [id number] Ambulatory [place] [facility] ing:MED[facility]P Repository 02/25/2018 [id number] Ambulatory [place] [facility] ing:MED[facility]P Repository 02/23/2018 [id number] [facility] [place] [facility] Repository 02/18/2018 [id number] [facility] Repository 02/15/2018 [id number] [facility] [place] [facility] Repository 02/11/2018 [id number] Ambulatory [place] [facility] ing:MED[facility]P Repository 02/08/2018 [id number] [facility] [place] [facility] Repository 02/07/2018 [id number] [facility] Repository 02/02/2018 [id number] [facility] Repository 01/28/2018 [id number] [facility] [place] [facility] Repository 01/25/2018/01/26/20 [id number] Ambulatory [place] [address] [place] [address] [facility] ing:MED[facility]P Repository 01/21/2018 [id number] [facility] Repository 01/18/2018 [id number] [facility] Repository 01/17/2018 [id number] [facility] [place] [facility] Repository 01/14/2018 [id number] Ambulatory [place] [facility] ing:MED[facility]P Repository 01/11/2018 [id number] [facility] [facility] ing:MED[facility]P Repository 01/07/2018 [id number] [facility] Repository 01/04/2018 [id number] [facility] [place] [facility] Repository 12/31/2017 [id number] [facility] [place] [facility] Repository 12/29/2017 [id number] [facility] [place] [facility] ing:US Repository 12/28/2017 [id number] [place] [facility] ing:MED[facility]P Repository 12/23/2017 [id number] [facility] [facility] ing:MED[facility]P Repository 12/21/2017 [id number] Ambulatory [place] [facility] ing:MED[facility]P Repository 12/17/2017 [id number] [place] [facility] ing:MED[facility]P Repository 12/14/2017 [id number] [place] [facility] ing:MEDOUTP Repository 12/10/2017 [id number] Ambulatory [place] [facility] ing:MEDOUTP Repository 12/07/2017 [id number] Ambulatory [place] [facility] ing:MEDOUTP Repository 12/03/2017 [id number] [place] [facility] 12/03/2017 [id number] Ambulatory [place] [facility] Hospital ing:MEDOUTP Repository 12/01/2017/12/02/19 [id number] Ambulatory [address] Repository 11/30/2017 [id number] Ambulatory [place] [facility] Hospital ing:MEDOUTP Repository 11/26/2017 [id number] Ambulatory [place] [facility] ing:MEDOUTP Repository 11/23/2017 [id number] Ambulatory [place] T[place] [facility] ing:MEDOUTP Repository 11/19/2017 [id number] Ambulatory [place] T[place] [facility] ing:MEDOUTP Repository 11/16/2017 [id number] Ambulatory [place] T[place] [facility] Hospital ing:MEDOUTP Repository 11/12/2017 [id number] Ambulatory [place] [facility] ing:MEDOUTP Repository 11/10/2017 [id number] Ambulatory [place] [facility] ing:MEDOUTP Repository 11/04/2017 [id number] Ambulatory [place] T[place] [facility] ing:MEDOUTP Repository 11/02/2017 [id number] Ambulatory [place] [facility] ing:MEDOUTP Repository 10/29/2017 [id number] Ambulatory T[place] Tae [facility] Hospital ing:MEDOUTP Repository 10/26/2017 [id number] Ambulatory [place] [facility] ing:MEDOUTP Repository 10/22/2017 [id number] Ambulatory [place] T[place] [facility] Hospital ing:MEDOUTP Repository 10/19/2017 [id number] Ambulatory [place] [facility] ing:MEDOUTP Repository 10/15/2017 [id number] Ambulatory [place] [facility] ing:MEDOUTP Repository 10/12/2017 [id number] Ambulatory [place] Tae [facility] ing:MEDOUTP Repository 10/08/2017 [id number] Ambulatory [place] T[place] [facility] Hospital ing:MEDOUTP Repository 10/05/2017 [id number] Ambulatory [place] T[place] [facility] ing:MEDOUTP Repository 10/01/2017 [id number] Ambulatory [place] T[place] [facility] ing:MEDOUTP Repository 09/28/2017 [id number] Ambulatory [place] [facility] ing:MEDOUTP Repository 09/28/2017 [id number] Ambulatory [place] [facility] Hospital ing:MEDOUTP Repository 09/24/2017 [id number] Ambulatory [place] [facility] ing:MEDOUTP Repository 09/21/2017 [id number] Amb[place] [facility] Hospital ing:MEDOUTP Repository 09/17/2017 [id number] Ambulatory [place] [facility] Hospital ing:MEDOUTP Repository 09/14/2017 [id number] Ambulatory [place] [facility] Hospital ing:MEDOUTP Repository 09/10/2017 [id number] Ambulatory [place] [facility] ing:MEDOUTP Repository 09/07/2017 [id number] Ambulatory [place] Tae [facility] ing:MEDOUTP Repository 09/03/2017 [id number] Ambulatory [place] [facility] Hospital ing:MEDOUTP Repository 09/01/2017 [id number] Ambulatory [facility] HospitalBuild Hospital ing:MEDOUTP Repository 08/27/2017 [id number] Ambulatory [facility] Hospital ing:MEDOUTP Repository 08/24/2017 [id number] Ambulatory [facility] HospitalBuild Hospital ing:MEDOUTP Repository 08/20/2017 [id number] Ambulatory [facility] HospitalBuild Hospital ing:MEDOUTP Repository 08/17/2017 [id number] Ambulatory [facility] Hospital[facility] Hospital ing:MEDOUTP Repository 08/13/2017 [id number] Ambulatory [facility] Hospital ing:MEDOUTP Repository 08/12/2017 [id number] Ambulatory [facility] Hospitalild Hospital ing:MEDOUTP Repository PAYERS PAYERS ENCOUNTER GUARANTOR PAYER SUBSCRIBER SOURCE 07/08/2018 TIGRE Thapa Primary FELIX WILDDOB: [place] [id number] JASMYN Insurance:MEDICARE [id number] [facility]als [facility] [address]283Ylb: (330) Number: Repository [phone] () [id number] Date:2018-07-01 07/08/2018 Secondary FELIX LOBATOB: T[facility] [id number] Community y Number: [facility] [id number] Repository Date:5627-65-02PL[address] [address]KB: 07/08/2018 Tertiary NOT GIVENUNK Tae Insurance:SELF PAY [facility] Number: Effective Repository Date:2018-07-01 07/06/2018 TIGRE Thapa Primary FELIX Thapa HALLDOB: Tae [id number] JASMYN Insurance:MEDICARE [id number] Hospitals TriPoint Medical Center 37734Dez: (330) Number: Repository [phone] () [id number] Date:2018-07-01 07/06/2018 Secondary FELIX LOBATOB: [place] Insurance[facility] [id number] Community y Number: [facility] [id number] Repository Date:1492-27-76EW [address], [place] [address]XV: 07/06/2018 Tertiary NOT GIVENUNK Tae Insurance:SELF PAY [facility] Number: Effective Repository Date:2018-07-01 07/04/2018 TIGRE Thapa Primary FELIX J HALLDOB: [place] [id number] JASMYN Insurance:MEDICARE [id number] 17304Iqy: (330) Number: Repository [phone] () [id number] Date:2018-07-01 07/04/2018 Secondary FELIX J JUNITODOB: T[place] Insurance:ANTHEMPolic [id number] Community y Number: Hospital [id number] Repository Date:8480-06-54AX [address], [place] [address]KA: 07/04/2018 Tertiary NOT GIVENUNK Tae Insurance:SELF PAY [facility] Number: Effective Repository Date:2018-07-01 07/01/2018 TIGRE Thapa Primary FELIX J HALLDOB: [place] [id number] JASMYN Insurance:MEDICARE [id number] Memorial Hospital [facility] 85945Laz: (330) Number: Repository [phone] () [id number] Date:2018-06-24 07/01/2018 Secondary FELIX J JUNITODOB: [place] [facility] [id number] Community y Number: Hospital [id number] Repository Date:7613-48-64CV [address]F[place], [place] [address]TF: 07/01/2018 Tertiary NOT GIVENUNK Tae Insurance:SELF PAY [facility] Number: Effective Repository Date:2018-06-24 06/29/2018 KASH Primary FELIX J HALLDOB: [place] [id number] JASMYN Insurance:MEDICARE [id number] Hospitals TriPoint [facility] 65941Ihe: (330) Number: Repository [phone] () [id number] Date:2018-06-24 06/29/2018 Secondary FELIX J HALLDOB: [place] Insurance:ANTHEMPolic [id number] Community y Number: Hospital [id number] Repository Date:5181-30-00ZB [address] [place] [address]FT: 06/29/2018 Tertiary NOT GIVENUNK [place] Insurance:SELF PAY [facility] Number: Effective Repository Date:2018-06-24 06/24/2018 TIGRE Thapa Primary FELIX J HALLDOB: [place] [id number] JASMYN Insurance:MEDICARE [id number] Hospitals TriPoint Medical Center 68537Xkk: (330) Number: Repository [phone] () [id number] Date:2018-06-17 06/24/2018 Secondary FELIX J JUNITODOB: [place] Insurance:ANTHEMPolic [id number] Community y Number: Hospital [id number] Repository Date:3002-81-64VY [address], [place] [address]ED: 06/24/2018 Tertiary NOT GIVENUNK Tae Insurance:SELF PAY [facility] Number: Effective Repository Date:2018-06-17 06/20/2018 TIGRE Thapa Primary FELIX J HALLDOB: [place] [id number] [place]ASMYN Insurance:MEDICARE [id number] Hospitals TriPoint Medical Center 53728Nqo: (330) Number: Repository [phone] () [id number] Date:2018-06-17 06/20/2018 Secondary FELIX J HALLDOB: [place] Insurance:ANTHEMPolic [id number] Community y Number: Hospital [id number] Repository Date:6350-25-95QW [address]XF[place]QOD, [place] [address]WC: 06/20/2018 Tertiary NOT [place]ENUNK [place] Insurance:SELF PAY [facility] Number: Effective Repository Date:2018-06-17 06/17/2018 TIGRE Thapa Primary FELIX J HALLDOB: [place] [id number] J[place] Insurance:MEDICARE [id number] PART [place] [facility] [address]Skt: (330) Number: Repository [phone] () [id number] Date:2018-06-16 06/17/2018 Secondary FELIX J HALLDOB: [place] Insurance:ANTHEMPolic [id number] Community y Number: Hospital [id number] Repository Date:0811-52-55ZI [address] [place] [address]SS: 06/17/2018 Tertiary NOT GIVENUNK [place] Insurance:SELF PAY [facility] Number: Effective Repository Date:2018-06-16 06/13/2018 TIGRE Thapa Primary FELIX J HALLDOB: [place] [id number] JASMYN Insurance:MEDICARE [id number] PART A [facility] 14199Ljh: (330) Number: Repository [phone] () [id number] Date:2018-06-13 06/13/2018 Secondary FELIX J HALLDOB: [place] Insurance:ANTHEMPolic [id number] Community y Number: Hospital [id number] Repository Date:3683-46-45JU [address] [place] [address] 888[address]CA: 06/13/2018 Tertiary NOT GIVENUNK Tae Insurance:SELF PAY [facility] Number: Effective Repository Date:2018-06-13 06/10/2018 KASH Primary FELIX J HALLDOB: [place] [id number] JASMYN Insurance:MEDICARE [id number] Memorial Hospital A [facility] 50880Ttx: (330) Number: Repository [phone] () [id number] Date:2018-06-03 06/10/2018 Secondary FELIX J HALLDOB: [place] Insurance:ANTHEMPolic [id number] Community y Number: Hospital [id number] Repository Date:8283-68-18JC [address] [place] [address] 74[address]UF: 06/10/2018 Tertiary NOT GIVENUNK [place] Insurance:SELF PAY [facility] Hospital Number: Effective Repository Date:2018-06-03 06/09/2018 TIGRE Thapa Primary FELIX J HALLDOB: [place] [id number] [place]ASMYN Insurance:MEDICARE [id number], [place] PART A [facility] 14555Qih: (330) Number: Repository [phone] () [id number] Date:2018-06-07 06/09/2018 Secondary FELIX J HALLDOB: [place] Insurance:ANTHEMPolic [id number] Community y Number: Hospital [id number] Repository Date:4199-87-51YJ [address] [place] [address] 77655LW: 06/09/2018 Tertiary NOT GIVENUNK Tae Insurance:SELF PAY [facility] Hospital Number: Effective Repository Date:2018-06-07 06/07/2018 TIGRE Thapa Primary FELIX J HALLDOB: [place] [id number] [place] Insurance:MEDICARE [id number] PART [place] [facility] 80505Fiy: (330) Number: Repository [phone] () [id number] Date:2018-06-03 06/07/2018 Secondary FELIX J HALLDOB: [place] Insurance:ANTHEMPolic [id number] Community y Number: Hospital [id number] Repository Date:1893-76-83LJ [address] [place] [address] 669[address]PL: 06/07/2018 Tertiary NOT GIVENUNK [place] Insurance:SELF PAY [facility] Number: Effective Repository Date:2018-06-03 06/03/2018 TIGRE Thapa Primary FELIX J HALLDOB: [place] [id number] [place] Insurance:MEDICARE [id number] PART A [facility] [address]4074Weh: (330) Number: Repository [phone] () [id number] Date:2018-05-27 06/03/2018 Secondary FELIX J JUNITODOB: [place] Insurance:ANTHEMPolic [id number] [facility] y Number: Hospital [id number] Repository Date:0135-54-51IG [address] [place] [address] 31419QM: 06/03/2018 Tertiary NOT GIVENUNK Tae Insurance:SELF PAY [facility] Hospital Number: Effective Repository Date:2018-05-27 06/01/2018 KASH Primary FELIX J HALLDOB: [place] [id number] [place] Insurance:MEDICARE [id number][place] PART A [facility] 36914Mus: (330) Number: Repository [phone] () [id number] Date:2018-05-27 06/01/2018 Secondary FELIX Alanis WILDDOB: [place] Insurance:ANTHEMPolic [id number] [facility] y Number: Hospital [id number] Repository Date:5030-80-57JC [address]RNXVVFA, [place] [address]GF: 06/01/2018 Tertiary NOT GIVENUNK Tae Insurance:SELF PAY [facility] Hospital Number: Effective Repository Date:2018-05-27 05/27/2018 KASH Primary FELIX J JUNITODOB: [place] [id number] [place]N Insurance:MEDICARE [id number] [place] PART A [facility] 595[address]Goz: (330) Number: Repository [phone] () [id number] Date:2018-05-23 05/27/2018 Secondary FELIX J HALLDOB: [place] Insurance:ANTHEMPolic [id number] [facility] y Number: Hospital [id number] Repository Date:6810-56-06CB [address] [place] [address] 27931SS: 05/27/2018 Tertiary NOT GIVENUNK Tae Insurance:SELF PAY [facility] Hospital Number: Effective Repository Date:2018-05-23 05/24/2018 Felix LobatoB: Primary Felix J JunitoDOB: OHIP Practices Insurance:MedicarePol [id number] Repository Jasmyn icy Number: [address] [place] [id number] [place] [address]Nsk: (330) Date:6871-20-12Orot 88[address]Qqz: Name:GLOVE STITCHER [phone] (HP) (HP)Tel: (080) [id number], [place] [phone] () 738[address]EZ: 05/24/2018 Secondary Felix LobatoB: OHIP Practices Insurance:[place]/Supp [id number] Repository lementPolicy Number: 6 J[place] [id number] [place], [place] Date:0762-05-41Vxkz [address]Kjv: Name:[address] [place] [address] (HP) [id number]: 05/24/2018 Tertiary Felix LobatoB: OHIP Practices Insurance:[employer] [id number] Repository icy Number: 6 Jasm[place] [id number] [place] 00Effective [address]Bjy: Date:2008-02-20 - ~(3 6733-40-70Xfnw 30 (HP) Name:[facility] [address], [place] [address]WU: 05/24/2018 [facility] OHIP Practices Insurance:[place] [id number] Repository /BSPolicy Number: Jasmyn [id number] [place], [place] Date: - [address]Iyg: (692) 0412-96-45Uhan [phone] (HP) Name:[address], [place] [address]SG: 05/24/2018 TIGRE Thapa [facility] FELIX LOBATOB: T[place] [id number] J[place]MYN Insurance:MEDICARE [id number] [facility] [place]DSBIAN[place], [place] PART A [facility] [address]Wwo: (330) Number: Repository [phone] () [id number] Date:2018-05-23 05/24/2018 Secondary FELIX J HALLDOB: [place] Insurance:ANTHEMPolic [id number] Community y Number: Hospital [id number] Repository Date:1971-19-83ED [address] [place] [address] 97519LW: 05/24/2018 Tertiary NOT GIVENUNK Tae Insurance:SELF PAY [facility] Hospital Number: Effective Repository Date:2018-05-23 05/20/2018 KASH Primary FELIX J HALLDOB: [place] [id number] [place] Insurance:MEDICARE [id number] Hospitals [facility] 98287Gtf: (330) Number: Repository [phone] () [id number] Date:2018-05-13 05/20/2018 Secondary FELIX J HALLDOB: [place] Insurance:ANTHEMPolic [id number] Community y Number: Hospital [id number] Repository Date:4688-79-51BT [address] [place] [address] 59415DI: 05/20/2018 Tertiary NOT GIVENUNK [place] Insurance:SELF PAY [facility] Number: Effective Repository Date:2018-05-13 05/17/2018 KASH Primary FELIX J HALLDOB: [place] [id number] [place] Insurance:MEDICARE [id number] Hospitals [facility] 73132Juv: (330) Number: Repository [phone] () [id number] Date:2018-05-13 05/17/2018 Secondary FELIX J HALLDOB: [place] Insurance:ANTHEMPolic [id number] Community y Number: Hospital [id number] Repository Date:0124-65-46KF [address] [place] [address] 92185NV: 05/17/2018 Tertiary NOT GIVENUNK Tae Insurance:SELF PAY [facility] Number: Effective Repository Date:2018-05-13 05/13/2018 KASH Primary FELIX J HALLDOB: [place] [id number] [place]N Insurance:MEDICARE [id number] Memorial Hospital [facility] 38879Hxo: (330) Number: Repository [phone] () [id number] Date:2018-05-10 05/13/2018 Secondary FELIX J HALLDOB: [place] Insurance:ANTHEMPolic [id number] Community y Number: Hospital [id number] Repository Date:2386-03-05CH [address] [place] [address] 52293ZN: 05/13/2018 Tertiary NOT GIVENUNK [place] Insurance:SELF PAY [facility] Number: Effective Repository Date:2018-05-10 05/11/2018 KASH Primary FELIX J HALLDOB: [place] [id number] [place] Insurance:MEDICARE [id number] Memorial Hospital A [facility] [address]3226Sut: (330) Number: Repository [phone] () [id number] Date:2018-05-10 05/11/2018 Secondary FELIX J HALLDOB: [place] Insurance:ANTHEMPolic [id number] Community y Number: Hospital [id number] Repository Date:3001-65-13SB [address] [place] [address] 02319AW: 05/11/2018 Tertiary NOT GIVENUNK Tae Insurance:SELF PAY [facility] Number: Effective Repository Date:2018-05-10 05/10/2018 KASH Primary FELIX J HALLDOB: [place] [id number] [place]ASMYN Insurance:MEDICARE [id number] Hospitals TriPoint Medical Center 59475Ifi: (330) Number: Repository [phone] () [id number] Date:2018-05-03 05/10/2018 Secondary FELIX J HALLDOB: [place] Insurance:ANTHEMPolic [id number] Community y Number: Hospital [id number] Repository Date:7623-60-24QU [address] [place] [address] 28575OR: 05/10/2018 Tertiary NOT GIVENUNK Tae Insurance:SELF PAY [facility] Hospital Number: Effective Repository Date:2018-05-03 05/06/2018 TIGRE Thapa Primary FELIX WILDDOB: [place] [id number] [place]N Insurance:MEDICARE [id number], [place] PART A [facility] [address]6561Bku: (330) Number: Repository [phone] () [id number] Date:2018-04-29 05/06/2018 Secondary FELIX J HALLDOB: [place] Insurance:ANTHEMPolic [id number] Community y Number: [facility] [id number] Repository Date:3988-83-50JB [address] [place] [address] 10930AX: 05/06/2018 Tertiary NOT GIVENUNK Tae Insurance:SELF PAY [facility] Hospital Number: Effective Repository Date:2018-04-29 05/03/2018 TIGRE Thapa Primary FELIX WILDDOB: [place] [id number] [place]ASMYN Insurance:MEDICARE [id number] Memorial Hospital [facility] 29611Ljz: (330) Number: Repository [phone] () [id number] Date:2018-04-29 05/03/2018 Secondary FELIX Alanis WILDDOB: [place] Insurance:ANTHEMPolic [id number] Community y Number: Hospital [id number] Repository Date:3160-03-74LJ [address]KTJMK [place] [address]DB: 05/03/2018 Tertiary NOT GIVENUNK Tae Insurance:SELF PAY [facility] Number: Effective Repository Date:2018-04-29 04/29/2018 TIGRE Thapa Primary FELIX Thapa HALLDOB: [place] [id number] JASMYN Insurance:MEDICARE [id number] Hospitals [facility] 37255Rug: (330) Number: Repository [phone] () [id number] Date:2018-04-26 04/29/2018 Secondary FELIX J JUNITODOB: [place] Insurance:ANTHEMPolic [id number] Community y Number: Hospital [id number] Repository Date:1140-70-08IK [address]KPMVIPM, [place] [address]NZ: 04/29/2018 Tertiary NOT GIVENUNK [place] Insurance:SELF PAY [facility] Hospital Number: Effective Repository Date:2018-04-26 04/27/2018 TIGRE Thapa Primary FELIX J HALLDOB: [place] [id number] [place] Insurance:MEDICARE [id number] Hospitals TriPoint Medical Center 37863Siz: (330) Number: Repository [phone] () [id number] Date:2018-04-26 04/27/2018 Secondary FELIX Alanis WILDDOB: [place] [facility] [id number] Community y Number: Hospital [id number] Repository Date:4265-84-96FH [address]PUDPHBC, [place] [address]MM: 04/27/2018 Tertiary NOT GIVENUNK Tae Insurance:SELF PAY [facility] Number: Effective Repository Date:2018-04-26 04/22/2018 TIGRE Thapa Primary FELIX J HALLDOB: [place] [id number] JASMYN Insurance:MEDICARE [id number] Hospitals [facility] 18088Nno: (330) Number: Repository [phone] () [id number] Date:2018-04-13 04/22/2018 Secondary FELIX J JUNITODOB: T[place] Insurance:ANTHEMPolic [id number] Community y Number: Hospital [id number] Repository Date:0534-50-80HX [address]LBDJTYB, [place] [address]HR: 04/22/2018 Tertiary NOT GIVENUNK [place] Insurance:SELF PAY [facility] Hospital Number: Effective Repository Date:2018-04-13 04/19/2018 TIGRE Thapa Primary FELIX J HALLDOB: T[place] [id number] [place] Insurance:MEDICARE [id number] Hospitals [facility]Point [facility] Center 39774Vdi: (330) Number: Repository [phone] () [id number] Date:2018-04-13 04/19/2018 Secondary FELIX J HALLDOB: [place] Insurance:ANTHEMPolic [id number] Community y Number: Hospital [id number] Repository Date:4468-79-19YL [address] [place] [address] 658[address]ME: 04/19/2018 Tertiary NOT GIVENUNK [place] Insurance:SELF PAY [facility] Hospital Number: Effective Repository Date:2018-04-13 04/15/2018 TIGRE Thapa Primary FELIX J HALLDOB: [place] [id number] JASMYN Insurance:MEDICARE [id number] Hospitals [facility]Point [facility] 29391Yyz: (330) Number: Repository [phone] () [id number] Date:2018-04-08 04/15/2018 Secondary FELIX J HALLDOB: [place] Insurance:ANTHEMPolic [id number] Community y Number: Hospital [id number] Repository Date:2107-33-10ZE [address] [place] [address] 45950YJ: 04/15/2018 Tertiary NOT GIVENUNK Tae Insurance:SELF PAY [facility] Number: Effective Repository Date:2018-04-08 04/13/2018 TIGRE Thapa Primary FELIX J HALLDOB: [place] [id number] JASMYN Insurance:MEDICARE [id number] Hospitals TriPoint [facility] Center 02987Jxy: (330) Number: Repository [phone] () [id number] Date:2018-04-08 04/13/2018 Secondary FELIX J HALLDOB: Tae Insurance:ANTHEMPolic [id number] Community y Number: Hospital [id number] Repository Date:9554-24-15SM [address] [place] [address] 96395AQ: 04/13/2018 Tertiary NOT GIVENUNK [place] Insurance:SELF PAY [facility] Number: Effective Repository Date:2018-04-08 04/08/2018 KASH Primary FELIX J HALLDOB: [place] [id number] Insurance[place]MEDIC[id number] A [facility] [id number]: (330) Number: Repository [phone] () [id number] Date:2018-04-01 04/08/2018 Secondary FELIX J HALLDOB: [place] Insurance:[employer] [id number] Community y Number: Hospital [id number] Repository Date:[id number] [address] [place] [address] [id number]: 04/08/2018 Tertiary NOT GIVENUNK [place] Insurance:SELF PAY [facility] Number: Effective Repository Date:2018-04-01 04/05/2018 TIGRE Thapa Primary FELIX J HALLDOB: [place] [id number] JASMYN Insurance:MEDICARE [id number] PART [place] [facility] 14757Yzp: (330) Number: Repository [phone] () [id number] Date:2018-04-01 04/05/2018 Secondary FELIX J HALLDOB: Tae Insurance:ANTHEMPolic [id number] Community y Number: Hospital [id number] Repository Date:7098-38-63BN [address] [place] [address] 66594BO: 04/05/2018 Tertiary NOT GIVENUNK Tae Insurance:SELF PAY [facility] Number: Effective Repository Date:2018-04-01 04/01/2018 TIGRE Thapa Primary FELIX J HALLDOB: [place] [id number] JASMYN Insurance:MEDICARE [id number] 85418Bju: (330) Number: Repository [phone] () [id number] Date:2018-03-25 04/01/2018 Secondary FELIX J HALLDOB: [place] Insurance:ANTHEMPolic [id number] Community y Number: Hospital [id number] Repository Date:2688-78-48XL [address] [place] [address] 75304IC: 04/01/2018 Tertiary NOT GIVENUNK Tae Insurance:SELF PAY Community [facility] Number: Effective Repository Date:2018-03-25 03/30/2018 TIGRE Thapa Primary FELIX WILDDOB: [place] [id number] [place]ASMYN Insurance:MEDICARE [id number] PART [place] [facility] 57050Zww: (330) Number: Repository [phone] () [id number] Date:2018-03-25 03/30/2018 Secondary FELIX J HALLDOB: [place] Insurance:ANTHEMPolic [id number] Community y Number: Hospital [id number] Repository Date:9667-18-47XQ [address] [place] [address] 63896BP: 03/30/2018 Tertiary NOT GIVENUNK Tae Insurance:SELF PAY [facility] Number: Effective Repository Date:2018-03-25 03/25/2018 TIGRE Thapa Primary FELIX WILDDOB: [place] [id number] JASMYN Insurance:MEDICARE [id number] PART A [facility] 17867Suz: (330) Number: Repository [phone] () [id number] Date:2018-03-18 03/25/2018 Secondary FELIX Alanis WILDDOB: Tae Insurance:ANTHEMPolic [id number] Community y Number: Hospital [id number] Repository Date:7200-24-14JO [address] [place] [address] 02661IF: 03/25/2018 Tertiary NOT GIVENUNK [place] Insurance:SELF PAY [facility] Number: Effective Repository Date:2018-03-18 03/22/2018 TIGRE Thapa Primary FELIX WILDDOB: [place] [id number] JASMYN Insurance:MEDICARE [id number] Memorial Hospital A [facility] 43136Eea: (330) Number: Repository [phone] () [id number] Date:2018-03-18 03/22/2018 Secondary FELIX J JUNITODOB: Tae Insurance:ANTHEMPolic [id number] Community y Number: Hospital [id number] Repository Date:4458-32-41BT [address] [place] [address] 37426YT: 03/22/2018 Tertiary NOT GIVENUNK Tae Insurance:SELF PAY [facility] Number: Effective Repository Date:2018-03-18 03/18/2018 TIGRE Thapa Primary FELIX J HALLDOB: T[place] [id number] [place] Insurance:MEDICARE [id number] Hospitals TriPoint [facility] 09953Tgo: (330) Number: Repository [phone] () [id number] Date:2018-03-11 03/18/2018 Secondary FELIX Alanis WILDDOB: T[place] Insurance:ANTHEMPolic [id number] Community y Number: Hospital [id number] Repository Date:0299-84-73YV [address], [place] [address]QG: 03/18/2018 Tertiary NOT GIVENUNK Tae Insurance:SELF PAY [facility] Hospital Number: Effective Repository Date:2018-03-11 03/15/2018 TIGRE Thapa Primary FELIX J HALLDOB: [place] [id number] JASMYN Insurance:MEDICARE [id number] Hospitals TriPoint Medical Center 73353Pcy: (330) Number: Repository [phone] () [id number] Date:2018-03-11 03/15/2018 Secondary FELIX J JUNITODOB: [place] Insurance:ANTHEMPolic [id number] Community y Number: Hospital [id number] Repository Date:9576-14-65RN [address] [place] [address] 47105UF: 03/15/2018 Tertiary NOT GIVENUNK [place] Insurance:SELF PAY [facility] Hospital Number: Effective Repository Date:2018-03-11 03/10/2018 TIGRE Thapa Primary FELIX J HALLDOB: [place] [id number] [place]AS[place]N Insurance:MEDICARE [id number] Hospitals TriPoint Medical Center 73529Oig: (330) Number: Repository [phone] () [id number] Date:2018-03-04 03/10/2018 Secondary FELIX J HALLDOB: [place] Insurance:ANTHEMPolic [id number] Community y Number: Hospital [id number] Repository Date:6390-69-84GH [address] [place] [address] 33238YZ: 03/10/2018 Tertiary NOT GIVENUNK [place] Insurance:SELF PAY [facility] Hospital Number: Effective Repository Date:2018-03-04 03/08/2018 TIGRE Thapa Primary FELIX J HALLDOB: [place] [id number] JASMYN Insurance:MEDICARE [id number] Hospitals TriPoint Medical Center 33553Ycd: (330) Number: Repository [phone] () [id number] Date:2018-03-03 03/08/2018 Secondary FELIX J HALLDOB: [place] Insurance:ANTHEMPolic [id number] Community y Number: Hospital [id number] Repository Date:1768-43-37EB [address] [place] [address] 56481QH: 03/08/2018 Tertiary NOT GIVENUNK [place] Insurance:SELF PAY [facility] Number: Effective Repository Date:2018-03-03 03/01/2018 TIGRE Thapa Primary FELIX J HALLDOB: [place] [id number] JASMYN Insurance:MEDICARE [id number] Hospitals TriPoint Medical Center 42350Qvn: (330) Number: Repository [phone] () [id number] Date:2018-02-28 03/01/2018 Secondary FELIX J HALLDOB: [place] Insurance:ANTHEMPolic [id number] Community y Number: Hospital [id number] Repository Date:2162-64-42QK [address] [place] [address] 48312CZ: 03/01/2018 Tertiary NOT GIVENUNK [place] Insurance:SELF PAY [facility] Number: Effective Repository Date:2018-02-28 02/25/2018 TIGRE Thapa Primary FELIX J HALLDOB: [place] [id number] [place] Insurance:MEDICARE [id number] Hospitals [facility]Point [facility] 64341Tkk: (330) Number: Repository [phone] () [id number] Date:2018-02-22 02/25/2018 Secondary FELIX J HALLDOB: [place] Insurance:ANTHEMPolic [id number] Community y Number: Hospital [id number] Repository Date:0378-81-50GW [address] [place] [address] 51762IM: 02/25/2018 Tertiary NOT GIVENUNK Tae Insurance:SELF PAY [facility] Number: Effective Repository Date:2018-02-22 02/23/2018 TIGRE Thapa Primary FELIX J HALLDOB: [place] [id number] JASMYN Insurance:MEDICARE [id number] Hospitals [facility]Point [facility] 10501Fya: (330) Number: Repository [phone] () [id number] Date:2018-02-22 02/23/2018 Secondary FELIX J HALLDOB: [place] Insurance:ANTHEMPolic [id number] Community y Number: Hospital [id number] Repository Date:6424-12-78IM [address] [place] [address] 01594GI: 02/23/2018 Tertiary NOT GIVENUNK [place] Insurance:SELF PAY [facility] Number: Effective Repository Date:2018-02-22 02/18/2018 TIGRE Thapa Primary FELIX J HALLDOB: [place] [id number] [place] Insurance:MEDICARE [id number] Hospitals TriPoint Medical Center 46653Snn: (330) Number: Repository [phone] () [id number] Date:2018-02-11 02/18/2018 Secondary FELIX J HALLDOB: [place] Insurance:ANTHEMPolic [id number] Community y Number: Hospital [id number] Repository Date:8663-06-23CL [address] [place] [address] 59530BG: 02/18/2018 Tertiary NOT GIVENUNK Tae Insurance:SELF PAY Community [facility] Hospital Number: Effective Repository Date:2018-02-11 02/15/2018 TIGRE Thapa Primary FELIX Thapa HALLDOB: [place] [id number] [place] Insurance:MEDICARE [id number] PART A [facility] 00433Mpg: (330) Number: Repository [phone] () [id number] Date:2018-02-11 02/15/2018 Secondary FELIX J HALLDOB: [place] Insurance:ANTHEMPolic [id number] Community y Number: [facility] [id number] Repository Date:0838-20-39MQ [address] [place] [address] 44984CN: 02/15/2018 Tertiary NOT GIVENUNK [place] Insurance:SELF PAY [facility] Hospital Number: Effective Repository Date:2018-02-11 02/11/2018 TIGRE Thapa Primary FELIX WILDDOB: [place] [id number] [place] Insurance:MEDICARE [id number] Memorial Hospital A [facility] 80222Krl: (330) Number: Repository [phone] () [id number] Date:2018-02-04 02/11/2018 Secondary FELIX Alanis WILDDOB: [place] Insurance:ANTHEMPolic [id number] Community y Number: [facility] [id number] Repository Date:2478-36-33PV [address] [place] [address] 43913WF: 02/11/2018 Tertiary NOT GIVENUNK [place] Insurance:SELF PAY [facility] Number: Effective Repository Date:2018-02-04 02/08/2018 TIGRE Thapa Primary FELIX WILDDOB: [place] [id number] [place] Insurance:MEDICARE [id number] Memorial Hospital A [facility] 70028Clx: (330) Number: Repository [phone] () [id number] Date:2018-02-08 02/08/2018 Secondary FELIX J JUNITODOB: [place] Insurance:ANTHEMPolic [id number] Community y Number: Hospital [id number] Repository Date:3855-76-24OU [address] [place] [address] 80985LY: 02/08/2018 Tertiary NOT GIVENUNK Tae Insurance:SELF PAY [facility] Number: Effective Repository Date:2018-02-08 02/07/2018 TIGRE Thapa Primary FELIX WILDDOB: [place] [id number] [place]ASMYN Insurance:MEDICARE [id number] Hospitals TriPoint Medical Center 58994Zoa: (330) Number: Repository [phone] () [id number] Date:2018-01-31 02/07/2018 Secondary FELIX WILDDOB: [place] Insurance:ANTHEMPolic [id number] Community y Number: Hospital [id number] Repository Date:4231-40-60LO [address] [place] [address] 21841RC: 02/07/2018 Tertiary NOT GIVENUNK Tae Insurance:SELF PAY [facility] Number: Effective Repository Date:2018-01-31 02/02/2018 TIGRE Thapa Primary FELIX WILDDOB: [place] [id number] [place]AS[place]N Insurance:MEDICARE [id number] Hospitals [facility]Point [facility] 80913Tic: (330) Number: Repository [phone] () [id number] Date:2018-01-31 02/02/2018 Secondary FELIXApolinar WILDDOB: [place] Insurance:ANTHEMPolic [id number] Community y Number: Hospital [id number] Repository Date:3470-00-93ZT [address] [place] [address] 32863UA: 02/02/2018 Tertiary NOT GIVENUNK [place] Insurance:SELF PAY [facility] Number: Effective Repository Date:2018-01-31 01/28/2018 TIGRE Thapa Primary FELIX WILDDOB: [place] [id number] [place]ASMYN Insurance:MEDICARE [id number] Hospitals [facility]Point [facility] 01812Bkn: (330) Number: Repository [phone] () [id number] Date:2018-01-21 01/28/2018 Secondary FELIX J HALLDOB: [place] Insurance:ANTHEMPolic [id number] Community y Number: Hospital [id number] Repository Date:1991-68-71FH [address]TDBMPZR [place] [address]WB: 01/28/2018 Tertiary NOT GIVENUNK [place] Insurance:SELF PAY [facility] Number: Effective Repository Date:2018-01-21 01/25/2018 KASH Primary FELIX J HALLDOB: [place] [id number] [place] Insurance:MEDICARE [id number] Hospitals TriPoint [facility] Center 15904Rat: (330) Number: Repository [phone] () [id number] Date:2018-01-14 01/25/2018 Secondary FELIX J HALLDOB: [place] Insurance:ANTHEMPolic [id number] Community y Number: Hospital [id number] Repository Date:1290-08-12MW [address]CH[address] [place] [address]TI: 01/25/2018 Tertiary NOT GIVENUNK Tae Insurance:SELF PAY [facility] Number: Effective Repository Date:2018-01-14 01/21/2018 KASH Primary FELIX J HALLDOB: [place] [id number] [place] Insurance:MEDICARE [id number] Hospitals [facility]Point [facility] 04946Jou: (330) Number: Repository [phone] () [id number] Date:2018-01-14 01/21/2018 Secondary FELIX J H[place]DOB: [place] Insurance:ANTHEMPolic [id number] Community y Number: Hospital [id number] Repository Date:9010-47-69NZ [address]BTQQCWK, [place] [address]HB: 01/21/2018 Tertiary NOT GIVENUNK Tae Insurance:SELF PAY [facility] Number: Effective Repository Date:2018-01-14 01/18/2018 TIGRE Thapa Primary FELIX J HALLDOB: [place] [id number] JASMYN Insurance:MEDICARE [id number] Hospitals TriPoint [facility] Center 29123Six: (330) Number: Repository [phone] () [id number] Date:2018-01-14 01/18/2018 Secondary FELIX J HALLDOB: [place] Insurance:ANTHEMPolic [id number] Community y Number: Hospital [id number] Repository Date:6317-84-56KO [address] [place] [address] 62747EQ: 01/18/2018 Tertiary NOT GIVENUNK [place] Insurance:SELF PAY [facility] Number: Effective Repository Date:2018-01-14 01/17/2018 TIGRE Thapa Primary FELIX J HALLDOB: [place] [id number] [place] Insurance:MEDICARE [id number] Hospitals [facility]Point [facility] 12406Opn: (330) Number: Repository [phone] () [id number] Date:2018-01-13 01/17/2018 Secondary FELIX J HALLDOB: [place] Insurance:ANTHEMPolic [id number] Community y Number: Hospital [id number] Repository Date:1030-04-08JW [address] [place] [address] 07830EE: 01/17/2018 Tertiary NOT GIVENUNK [place] Insurance:SELF PAY [facility] Number: Effective Repository Date:2018-01-13 01/14/2018 TIGRE Thapa Primary FELIX J HALLDOB: [place] [id number] [place] Insurance:MEDICARE [id number] Hospitals TriPoint [facility] Center 93563Sgs: (330) Number: Repository [phone] () [id number] Date:2018-01-07 01/14/2018 Secondary FELIX J HALLDOB: [place] Insurance:ANTHEMPolic [id number] Community y Number: Hospital [id number] Repository Date:0198-50-46EA [address]CJUOAP[address] [place] [address] 10338PG: 01/14/2018 Tertiary NOT GIVENUNK [place] Insurance:SELF PAY Community [facility] Number: Effective Repository Date:2018-01-07 01/11/2018 TIGRE Thapa Primary FELIX J HALLDOB: [place] [id number] JASMYN Insurance:MEDICARE [id number] [place] PART A [facility] 46076Bom: (330) Number: Repository [phone] () [id number] Date:2018-01-07 01/11/2018 Secondary FELIX J HALLDOB: [place] Insurance:ANTHEMPolic [id number] Community y Number: [facility] [id number] Repository Date:8595-87-95EF [address] [place] [address] 97050GN: 01/11/2018 Tertiary NOT GIVENUNK Tae Insurance:SELF PAY [facility] Number: Effective Repository Date:2018-01-07 01/07/2018 TIGRE Thapa Primary FELIX J HALLDOB: [place] [id number] [place]ASMYN Insurance:MEDICARE [id number] [place] PART A [facility] 31029Npi: (330) Number: Repository [phone] () [id number] Date:2018-01-03 01/07/2018 Secondary FELIX J HALLDOB: [place] Insurance:ANTHEMPolic [id number] Community y Number: [facility] [id number] Repository Date:3559-16-23CH [address] [place] [address] 56755LH: 01/07/2018 Tertiary NOT GIVENUNK [place] Insurance:SELF PAY [facility] Number: Effective Repository Date:2018-01-03 01/04/2018 TIGRE Thapa Primary FELIX J HALLDOB: [place] [id number] JASMYN Insurance:MEDICARE [id number] [facility] 44545Foq: (330) Number: Repository [phone] () [id number] Date:2018-01-03 01/04/2018 Secondary FELIX J HALLDOB: T[place] Insurance:ANTHEMPolic [id number] Community y Number: Hospital [id number] Repository Date:7309-89-95MJ [address] [place] [address] 46939BQ: 01/04/2018 Tertiary NOT GIVENUNK Tae Insurance:SELF PAY [facility] Number: Effective Repository Date:2018-01-03 12/31/2017 TIGRE Thapa Primary FELIX WILDDOB: [place] [id number] [place]N Insurance:MEDICARE [id number] Hospitals TriPoint Medical Center 71979Ryk: (330) Number: Repository [phone] () [id number] Date:2017-12-23 12/31/2017 Secondary FELIX WILDDOB: [place] Insurance:ANTHEMPolic [id number] Community y Number: Hospital [id number] Repository Date:8730-83-41MK [address] [place] [address] 31823DZ: 12/31/2017 Tertiary NOT GIVENUNK Tae Insurance:SELF PAY [facility] Number: Effective Repository Date:2017-12-23 12/29/2017 TIGRE Thapa Primary FELIX WILDDOB: [place] [id number] AJSMYN Insurance:MEDICARE [id number] Hospitals TriPoint Medical Center 39410Nlm: (330) Number: Repository [phone] () [id number] Date:2017-12-23 12/29/2017 Secondary FELIXApolinar WILDDOB: Tae Insurance:ANTHEMPolic [id number] Community y Number: Hospital [id number] Repository Date:6583-73-30FU [address] [place] [address] 85149IK: 12/29/2017 Tertiary NOT GIVENUNK Tae Insurance:SELF PAY [facility] Number: Effective Repository Date:2017-12-23 12/28/2017 TIGRE Thapa Primary FELIX WILDDOB: [place] [id number] [place]AS[place]N Insurance:MEDICARE [id number] Hospitals [facility] 50142Xif: (330) Number: Repository [phone] () [id number] Date:2017-12-23 12/28/2017 Secondary FELIX J HALLDOB: [place] Insurance:ANTHEMPolic [id number] Community y Number: Hospital [id number] Repository Date:4388-01-37OK [address] [place] [address] [place] [address]XN: 12/28/2017 Tertiary NOT GIVENUNK [place] Insurance:SELF PAY [facility] Number: Effective Repository Date:2017-12-23 12/23/2017 KASH Primary FELIX J HALLDOB: T[place] [id number] [place]ASMYN Insurance:MEDICARE [id number] Hospitals TriPoint Medical Center 98061Hff: (330) Number: Repository [phone] () [id number] Date:2017-12-17 12/23/2017 Secondary FELIX J HALLDOB: Tae Insurance:ANTHEMPolic [id number] Community y Number: Hospital [id number] Repository Date:2747-64-80IL [address]ZCFVQIY [place] [address]RI: 12/23/2017 Tertiary NOT GIVENUNK [place] Insurance:SELF PAY [facility] Number: Effective Repository Date:2017-12-17 12/21/2017 KASH Primary FELIX J HALLDOB: T[place] [id number] JASMYN Insurance:MEDICARE [id number] Hospitals TriPoint Medical Center 61953Iot: (330) Number: Repository [phone] () [id number] Date:2017-12-17 12/21/2017 Secondary FELIX J HALLDOB: [place] Insurance:ANTHEMPolic [id number] Community y Number: Hospital [id number] Repository Date:5466-10-29FC [address]XCKUMNS, [place] [address]PG: 12/21/2017 Tertiary NOT GIVENUNK [place] Insurance:SELF PAY [facility] Number: Effective Repository Date:2017-12-17 12/17/2017 TIGRE Thapa Primary FELIX J HALLDOB: Tae [id number] JASMYN Insurance:MEDICARE [id number] Hospitals TriPoint [facility] Center 38314Mtw: (330) Number: Repository [phone] () [id number] Date:2017-12-10 12/17/2017 Secondary FELIX J HALLDOB: [place] Insurance:ANTHEMPolic [id number] Community y Number: Hospital [id number] Repository Date:0157-04-62WH [address]GR[address]JD[address] [place] [address] 94646MK: 12/17/2017 Tertiary NOT GIVENUNK Tae Insurance:SELF PAY [facility] Number: Effective Repository Date:2017-12-10 12/14/2017 TIGRE Thapa Primary FELIX J HALLDOB: [place] [id number] JASMYN Insurance:MEDICARE [id number] Memorial Hospital A [facility] 39580Sun: (330) Number: Repository [phone] () [id number] Date:2017-12-10 12/14/2017 Secondary FELIX J HALLDOB: [place] Insurance:ANTHEMPolic [id number] Community y Number: Hospital [id number] Repository Date:9997-48-23ZN [address]GBILEXS, [place] [address]VP: 12/14/2017 Tertiary NOT GIVENUNK Tae Insurance:SELF PAY [facility] Number: Effective Repository Date:2017-12-10 12/10/2017 TIGRE Thapa Primary FELIX J HALLDOB: T[place] [id number] JASMYN Insurance:MEDICARE [id number] Hospitals TriPoint Medical Center 89915Dgj: Number: Repository [phone] [id number] () Date:2017-12-03 12/10/2017 Secondary FELIX J HALLDOB: [place] Insurance:ANTHEMPolic [id number] Community y Number: Hospital [id number] Repository Date:1991-24-59WM [address] [place] [address] 29365TC: 12/10/2017 Tertiary NOT GIVENUNK [place] Insurance:SELF PAY [facility] Number: Effective Repository Date:2017-12-03 12/07/2017 TIGRE Thapa Primary FELIX J HALLDOB: [place] [id number] [place]ASMYN Insurance:MEDICARE [id number] PART A [facility] 15321Xki: (330) Number: Repository [phone] () [id number] Date:2017-12-03 12/07/2017 Secondary FELIX J HALLDOB: [place] Insurance:ANTHEMPolic [id number] Community y Number: [facility] [id number] Repository Date:5141-45-58WU [address] [place] [address] 51148VW: 12/07/2017 Tertiary NOT GIVENUNK [place] Insurance:SELF PAY [facility] Number: Effective Repository Date:2017-12-03 12/03/2017 TIGRE Thapa Primary FELIX J HALLDOB: [place] [id number] JASMYN Insurance:MEDICARE [id number] PART A [facility] 14486Zdy: Number: Repository [phone] [id number] (HP) Date:2017-12-03 12/03/2017 Secondary FELIX J HALLDOB: [place] Insurance:ANTHEMPolic [id number] Community y Number: [facility] [id number] Repository Date:8076-12-10OF [address] [place] [address] 98973TW: 12/03/2017 Tertiary NOT GIVENUNK Tae Insurance:SELF PAY [facility] Number: Effective Repository Date:2017-12-03 12/03/2017 TIGRE Thapa Primary FELIX J HALLDOB: [place] [id number] JASMYN Insurance:MEDICARE [id number] [address]Eah: Number: Repository [phone] [id number] (HP) Date:2017-12-01 12/03/2017 Secondary FELIX Alanis WILDDOB: Tae Insurance:ANTHEMPolic [id number] Community y Number: Hospital [id number] Repository Date:[id number] [id number] [place] [address] 67258GI: 12/03/2017 Tertiary NOT GIVENUNK Tae Insurance:SELF PAY [facility] Number: Effective Repository Date:2017-12-01 11/30/2017 TIGRE Thapa Primary FELIX J JUNITODOB: [place] [id number] JASMYN Insurance:MEDICARE [id number] [address]Vsg: Number: Repository [phone]~[facility] [id number] () Date:2017-11-29 11/30/2017 Secondary FELIX J JUNITODOB: Tae Insurance:ANTHEMPolic [id number] [facility] y Number: Hospital [id number] Repository Date:0605-24-60ZY [address], [place] [address]GH: 11/30/2017 Tertiary NOT GIVENUNK Tae Insurance:SELF PAY [facility] Number: Effective Repository Date:2017-11-29 11/26/2017 TIGRE Thapa Primary FELIX WILDDOB: [place] [id number] JASMYN Insurance:MEDICARE [id number] [facility] [id number]: (330) Number: Repository [phone] () [id number] Date:2017-11-19 11/26/2017 Secondary FELIX J HALLDOB: [place] Insurance:ANTHEMPolic [id number] Community y Number: Hospital [id number] Repository Date:1525-49-57DE [id number] [place] [address] 52430CI: 11/26/2017 Tertiary NOT GIVENUNK [place] Insurance:SELF PAY [facility] [facility] Number: Effective Repository Date:2017-11-19 11/23/2017 TIGRE Thapa Primary FELIX WILDDOB: Tae [id number] JASMYN Insurance:MEDICARE [id number] PART A [facility] [address]Yeq: (330) Number: Repository [phone] [id number] Date:2017-11-19 11/23/2017 Secondary FELIX J HALLDOB: [place] Insurance:ANTHEMPolic [id number] Community y Number: Hospital [id number] Repository Date:8493-59-88ZZ [address] [place] [address] 19416GG: 11/23/2017 Tertiary NOT GIVENUNK [place] Insurance:SELF PAY [facility] Number: Effective Repository Date:2017-11-19 11/19/2017 TIGRE Thapa Primary FELIX J HALLDOB: Tae [id number] JASMYN Insurance:ANTHEMPolic [id number], [place] y Number: Hospital 04823Ikb: [id number] Repository [phone] Date:5027-49-76SC [address] ) [place], [place] [address]KT: 11/19/2017 Secondary FELIX J HALLDOB: [place] Insurance:MEDICARE [id number] Community PART A [facility] Number: Repository [id number] Date:2017-11-12 11/19/2017 Tertiary NOT GIVENUNK [place] Insurance:SELF PAY [facility] Number: Effective Repository Date:2017-11-12 11/16/2017 TIGRE Thapa Primary FELIX J HALLDOB: Ate [id number] [place] Insurance:MEDICARE [id number] PART A [facility] [address]Iri: Number: Repository [phone] [id number] -6 () Date:2017-11-12 11/16/2017 Secondary FELIX J HALLDOB: T[place] Insurance:ANTHEMPolic [id number] Community y Number: Hospital [id number] Repository Date:0613-08-11DN [address]ZAOSJV [place] [address]II: 11/16/2017 Tertiary NOT GIVENUNK Tae Insurance:SELF PAY [facility] Number: Effective Repository Date:2017-11-12 11/12/2017 TIGRE Thapa Primary FELIX J HALLDOB: Tae [id number] [place] Insurance:MEDICARE [id number] Hospitals [facility] [address]Uaz: Number: Repository [phone] [id number] -6 (HP) Date:2017-11-02 11/12/2017 Secondary FELIX J HALLDOB: Tae Insurance:ANTHEMPolic [id number] Community y Number: Hospital [id number] Repository Date:4019-78-70HI [address] [place] [address] 98756DH: 11/12/2017 Tertiary NOT GIVENUNK [place] Insurance:SELF PAY [facility] Number: Effective Repository Date:2017-11-02 11/10/2017 TIGRE Thapa Primary FELIX J HALLDOB: [place] [id number] [place]ASMYN Insurance:MEDICARE [id number] Hospitals [facility] [address]Ibq: Number: Repository [phone] [id number] -6 (HP) Date:2017-11-02 11/10/2017 Secondary FELIX WILDDOB: Tae Insurance:ANTHEMPolic [id number] Community y Number: Hospital [id number] Repository Date:0280-28-68VX [address] [place] [address] 942[address]NM: 11/10/2017 Tertiary NOT GIVENUNK Tae Insurance:SELF PAY [facility] Number: Effective Repository Date:2017-11-02 11/04/2017 TIGRE Thapa Primary FELIX J HALLDOB: [place] [id number] [place] Insurance:MEDICARE [id number] Hospitals TriPoint Medical Center [address]Qcd: (330) Number: Repository [phone] (HP) [id number] Date:2017-10-29 11/04/2017 Secondary FELIX J HALLDOB: [place] Insurance:ANTHEMPolic [id number] Community y Number: Hospital [id number] Repository Date:0463-91-68BR [address]DUGWWKJ, [place] [address]OQ: 11/04/2017 Tertiary NOT GIVENUNK [place] Insurance:SELF PAY [facility] Number: Effective Repository Date:2017-10-29 11/02/2017 TIGRE Thapa Primary FELIX J HALLDOB: T[place] [id number] [place] Insurance:MEDICARE [id number] Hospitals TriPoint Medical Center [address]Igr: Number: Repository [phone] [id number] -6 (HP) Date:2017-10-29 11/02/2017 Secondary FELIX Alanis WILDDOB: [place] Insurance:ANTHEMPolic [id number] Community y Number: [facility] [id number] Repository Date:9763-86-88XP [address]YUNSQXW, [place] [address]PO: 11/02/2017 Tertiary NOT GIVENUNK Tae Insurance:SELF PAY [facility] Number: Effective Repository Date:2017-10-29 10/29/2017 TIGRE Thapa Primary FELIX J HALLDOB: Tae [id number] [place] Insurance:MEDICARE [id number] Hospitals TriPoint Medical Center [address]Jbw: Number: Repository [phone] [id number] -6 (HP) Date:2017-10-25 10/29/2017 Secondary FELIX Alanis WILDDOB: [place] [facility] [id number] Community y Number: [facility] [id number] Repository Date:7317-57-13NF [address]BQPQHFP, [place] [address]TN: 10/29/2017 Tertiary NOT GIVENUNK [place] Insurance:SELF PAY [facility] Number: Effective Repository Date:2017-10-25 10/26/2017 TIGRE Thapa Primary FELIX J JUNITODOB: [place] [id number] [place]ASMYN Insurance:MEDICARE [id number] Hospitals TriPoint Medical Center [address]Oxk: Number: Repository [phone] [id number] -6 (HP) Date:2017-10-25 10/26/2017 Secondary FELIX J HALLDOB: [place] Insurance:ANTHEMPolic [id number] Community y Number: Hospital [id number] Repository Date:8911-75-07PB [address]PQCSUED [place] [address]TV: 10/26/2017 Tertiary NOT GIVENUNK Tae Insurance:SELF PAY [facility] Number: Effective Repository Date:2017-10-25 10/22/2017 TIGRE Thapa Primary FELIX J HALLDOB: [place] [id number] [place] Insurance:MEDICARE [id number] Hospitals TriPoint Medical Center [address]Fom: Number: Repository [phone] [id number] -6 (HP) Date:2017-10-15 10/22/2017 Secondary FELIX J HALLDOB: [place] Insurance:ANTHEMPolic [id number] Community y Number: Hospital [id number] Repository Date:9442-69-14IT [address]LTVLMHK, [place] [address]JC: 10/22/2017 Tertiary NOT GIVENUNK Tae Insurance:SELF PAY [facility] Number: Effective Repository Date:2017-10-15 10/19/2017 KASH Primary FELIX J HALLDOB: [place] [id number] [place] Insurance:MEDICARE [id number] Hospitals TriPoint Medical Center [address]Usa: Number: Repository [phone] [id number] -6 (HP) Date:2017-10-15 10/19/2017 Secondary FELIX J HALLDOB: [place] Insurance:ANTHEMPolic [id number] Community y Number: Hospital [id number] Repository Date:9131-71-31FR [address]QKWYLBD, [place] [address]CB: 10/19/2017 Tertiary NOT GIVENUNK Tae Insurance:SELF PAY [facility] Number: Effective Repository Date:2017-10-15 10/15/2017 TIGRE Thapa Primary FELIX J HALLDOB: [place] [id number] [place] Insurance:MEDICARE [id number] Hospitals TriPoint Medical Center [address]Osy: Number: Repository [phone] [id number] -6 (HP) Date:2017-10-08 10/15/2017 Secondary FELIX J HALLDOB: [place] Insurance:ANTHEMPolic [id number] Community y Number: Hospital [id number] Repository Date:3657-97-83OQ [address]ZPJJLLO, [place] [address]XI: 10/15/2017 Tertiary NOT GIVENUNK Tae Insurance:SELF PAY [facility] Number: Effective Repository Date:2017-10-08 10/12/2017 TIGRE Thapa Primary FELIX J HALLDOB: [place] [id number] [place] Insurance:MEDICARE [id number] Hospitals TriPoint Medical Center [address]Eqn: Number: Repository [phone] [id number] -6 (HP) Date:2017-10-08 10/12/2017 Secondary FELIX J HALLDOB: [place] Insurance:ANTHEMPolic [id number] Community y Number: Hospital [id number] Repository Date:4048-60-37TZ [address]ZPUKVMZ, [place] [address]RU: 10/12/2017 Tertiary NOT GIVENUNK [place] Insurance:SELF PAY [facility] Number: Effective Repository Date:2017-10-08 10/08/2017 TIGRE Thapa Primary FELIX J HALLDOB: [place] [id number] JASMYN Insurance:MEDICARE [id number] Hospitals TriPoint Medical Center [address]Aah: Number: Repository [phone] [id number] -6 (HP) Date:2017-10-01 10/08/2017 Secondary FELIX J HALLDOB: [place] Insurance:ANTHEMPolic [id number] Community y Number: Hospital [id number] Repository Date:1443-69-15SZ [address] [place] [address] 29[address]FP: 10/08/2017 Tertiary NOT GIVENUNK [place] Insurance:SELF PAY [facility] Number: Effective Repository Date:2017-10-01 10/05/2017 TIGRE Thapa Primary FELIX J HALLDOB: [place] [id number] [place] Insurance:MEDICARE [id number] A [facility] [address]Vgs: Number: Repository [phone] [id number] -6 (HP) Date:2017-10-01 10/05/2017 Secondary FELIX J HALLDOB: [place] Insurance:ANTHEMPolic [id number] Community y Number: Hospital [id number] Repository Date:8671-27-78DP [address] [place] [address] 80[address]RD: 10/05/2017 Tertiary NOT GIVENUNK [place] Insurance:SELF PAY [facility] Number: Effective Repository Date:2017-10-01 10/01/2017 TIGRE Thapa Primary FELIX J HALLDOB: [place] [id number] [place] Insurance:MEDICARE [id number] Memorial Hospital A [facility] [address]Jyo: Number: Repository [phone] [id number] -6 (HP) Date:2017-09-24 10/01/2017 Secondary FELIX J HALLDOB: [place] Insurance:ANTHEMPolic [id number] Community y Number: Hospital [id number] Repository Date:9528-98-09AL [address] [place] [address]RI: 10/01/2017 Tertiary NOT GIVENUNK Tae Insurance:SELF PAY [facility] Number: Effective Repository Date:2017-09-24 09/28/2017 TIGRE Thapa Primary FELIX J HALLDOB: [place] [id number] [place] Insurance:MEDICARE [id number] Hospitals TriPoint [facility] Center [address]Lbv: Number: Repository [phone] [id number] -6 (HP) Date:2017-09-24 09/28/2017 Secondary FELIX J HALLDOB: [place] Insurance:ANTHEMPolic [id number] Community y Number: Hospital [id number] Repository Date:1239-17-08LI [address]TTVRSFU [place] [address]VG: 09/28/2017 Tertiary NOT GIVENUNK Tae Insurance:SELF PAY [facility] Number: Effective Repository Date:2017-09-24 09/28/2017 TIGRE Thapa Primary FELIX J HALLDOB: [place] [id number] [place] Insurance:ANTHEMPolic [id number] [place] y Number: Hospital 38[address]Msz: [id number] Repository [phone] Date:5363-40-47SZ [address] ) 120262TYDSBLC, [place] [address]CC: 09/28/2017 Secondary FELIX J JUNITODOB: Tae Insurance:MEDICARE [id number] [facility] PART A [facility] Number: Repository [id number] Date:2017-06-02 09/28/2017 Tertiary NOT GIVENUNK Tae Insurance:SELF PAY [facility] Number: Effective Repository Date:2017-06-02 09/24/2017 TIRGE Thapa Primary FELIX J HALLDOB: [place] [id number] [place] Insurance:MEDICARE [id number] [place] PART A [facility] [address]Zpy: Number: Repository [phone] [id number] -6 () Date:2017-09-17 09/24/2017 Secondary FELIX J HALLDOB: [place] Insurance:ANTHE[place]olic [id number] Community y Number: Hospital [id number] Repository Date:6456-20-28XN [address]KFPRGHF [place] [address]PQ: 09/24/2017 Tertiary NOT GIVENUNK [place] Insurance:SELF PAY Community [facility] Number: Effective Repository Date:2017-09-17 09/21/2017 TIGRE Thapa Primary FELIX J HALLDOB: T[place] [id number] [place] Insurance:MEDICARE [id number] [facility] [address]Wdr: Number: Repository [phone] [id number] -6 (HP) Date:2017-09-17 09/21/2017 Secondary FELIX J HALLDOB: [place] Insurance:ANTHEMPolic [id number] Community y Number: Hospital [id number] Repository Date:6861-99-30QN [address]XIYUSEM, [place] [address]WA: 09/21/2017 Tertiary NOT GIVENUNK Tae Insurance:SELF PAY [facility] Number: Effective Repository Date:2017-09-17 09/17/2017 TIGRE Thapa Primary FELIX J HALLDOB: [place] [id number] [place] Insurance:MEDICARE [id number] Hospitals [facility] [address]Xyf: Number: Repository [phone] [id number] -6 (HP) Date:2017-09-13 09/17/2017 Secondary FELIX J HALLDOB: [place] Insurance:ANTHEMPolic [id number] Community y Number: Hospital [id number] Repository Date:5556-96-97OV [address]YQWCINXPARESH PEDRAZA [address]UL: 09/17/2017 Tertiary NOT GIVENUNK Tae Insurance:SELF PAY [facility] Number: Effective Repository Date:2017-09-13 09/14/2017 TIGRE Thapa Primary FELIX J HALLDOB: [place] [id number] [place] Insurance:MEDICARE [id number] Hospitals TriPoint Medical Center 186[address]Tor: Number: Repository [phone] [id number] -6 (HP) Date:2017-09-13 09/14/2017 Secondary FELIX J HALLDOB: [place] Insurance:ANTHEMPolic [id number] [facility] y Number: Hospital [id number] Repository Date:4610-87-71NB [address]RJFQSJY, [place] [address]OS: 09/14/2017 Tertiary NOT GIVENUNK [place] Insurance:SELF PAY [facility] Number: Effective Repository Date:2017-09-13 09/10/2017 TIGRE Thapa Primary FELIX WILDDOB: [place] [id number] [place] Insurance:MEDICARE [id number] Memorial Hospital A [facility] [address]Oaj: Number: Repository [phone] [id number] -6 (HP) Date:2017-09-03 09/10/2017 Secondary FELIX J JUNITODOB: [place] Insurance:ANTHEMPolic [id number] Community y Number: [facility] [id number] Repository Date:5714-82-69KH [address] [place] [address]AN: 09/10/2017 Tertiary NOT GIVENUNK Tae Insurance:SELF PAY [facility] Number: Effective Repository Date:2017-09-03 09/07/2017 TIGRE Thapa Primary FELIX WILDDOB: [place] [id number] [place]AS[place]N Insurance:MEDICARE [id number] Memorial Hospital A [facility] [address]Mor: Number: Repository [phone] [id number] -6 (HP) Date:2017-09-03 09/07/2017 Secondary FELIXApolinar WILDDOB: [place] Insurance:ANTHEMPolic [id number] Community y Number: Hospital [id number] Repository Date:0033-71-25ZM [address] [place] [address] 920[address]TG: 09/07/2017 Tertiary NOT GIVENUNK [place] Insurance:SELF PAY [facility] Number: Effective Repository Date:2017-09-03 09/03/2017 TIGRE Thapa Primary FELIX WILDDOB: [place] [id number] [place] Insurance:MEDICARE [id number] Hospitals [facility]Point Medical Center 320[address]Fjj: Number: Repository [phone] [id number] -6 (HP) Date:2017-08-27 09/03/2017 Secondary FELIX J JUNITODOB: [place] Insurance:ANTHEMPolic [id number] Community y Number: Hospital [id number] Repository Date:2760-78-50JH [address] [place] [address] 01199XN: 09/03/2017 Tertiary NOT GIVENUNK Tae Insurance:SELF PAY [facility] Number: Effective Repository Date:2017-08-27 09/01/2017 TIGRE Thapa Primary FELIX WILDDOB: [place] [id number] [place] Insurance:MEDICARE [id number] Hospitals TriPoint Medical Center 63955Fjj: Number: Repository [phone] [id number] -6 (HP) Date:2017-08-27 09/01/2017 Secondary FELIX WILDDOB: [place] [facility] [id number] Community y Number: Hospital [id number] Repository Date:8025-63-58YE [address] [place] [address] 59[address]YJ: 09/01/2017 Tertiary NOT GIVENUNK Tae Insurance:SELF PAY [facility] Number: Effective Repository Date:2017-08-27 08/27/2017 TIGRE Thapa Primary FELIX WILDDOB: [place] [id number] [place] Insurance:MEDICARE [id number] Hospitals TriPoint Medical Center 62110Jrm: Number: Repository [phone] [id number] -6 (HP) Date:2017-08-20 08/27/2017 Secondary FELIXApolinar WILDDOB: [place] Insurance:ANTHEMPolic [id number] Community y Number: Hospital [id number] Repository Date:0763-83-55YA [address]BIRZSTV, [place] [address]IL: 08/27/2017 Tertiary NOT GIVENUNK [place] Insurance:SELF PAY [facility] Number: Effective Repository Date:2017-08-20 08/24/2017 TIGRE Thapa Primary FELIX WILDDOB: [place] [id number] [place] Insurance:MEDICARE [id number] Hospitals TriPoint Medical Center 08998Gzk: Number: Repository [phone] [id number] -6 () Date:2017-08-20 08/24/2017 Secondary FELIX J HALLDOB: [place] Insurance:ANTHEMPolic [id number] Community y Number: Hospital [id number] Repository Date:6501-32-02BA [address]YNPPTJX [place] [address]BF: 08/24/2017 Tertiary NOT GIVENUNK [place] Insurance:SELF PAY [facility] Number: Effective Repository Date:2017-08-20 08/20/2017 TIGRE Thapa Primary FELIX J HALLDOB: [place] [id number] [place]N Insurance:MEDICARE [id number] Hospitals TriPoint Medical Center 29273Lnx: Number: Repository [phone] [id number] -6 () Date:2017-08-12 08/20/2017 Secondary FELIX J HALLDOB: [place] Insurance:ANTHEMPolic [id number] Community y Number: Hospital [id number] Repository Date:7014-09-62GA [address]NKMOIQK [place] [address]IR: 08/20/2017 Tertiary NOT GIVENUNK [place] Insurance:SELF PAY [facility] Number: Effective Repository Date:2017-08-12 08/17/2017 TIGRE Thapa Primary FELIX J HALLDOB: [place] [id number] [place]ASMYN Insurance:MEDICARE [id number] Hospitals TriPoint Medical Center 83394Jrg: (330) Number: Repository [phone] [id number] Date:2017-08-12 08/17/2017 Secondary FELIX J HALLDOB: Tae Insurance:ANTHEMPolic [id number] Community y Number: Hospital [id number] Repository Date:7543-32-32AL [address]IMFKETL, [place] [address]PU: 08/17/2017 Tertiary NOT GIVENUNK Tae Insurance:SELF PAY Community [facility] Number: Effective Repository Date:2017-08-12 08/13/2017 TIGRE Thapa Primary FELIX WILDDOB: [place] [id number] [place] Insurance:MEDICARE [id number] Hospitals TriPoint Medical Center [address]Ehv: (330) Number: Repository [phone] () [id number] Date:2017-08-11 08/13/2017 Secondary FELIX LOBATOB: [place] Insurance:ANTHEMPolic [id number] Community y Number: Hospital [id number] Repository Date:8688-88-49CW [address] [place] [address] 42067TD: 08/13/2017 Tertiary NOT GIVENUNK Tae Insurance:SELF PAY [facility] Number: Effective Repository Date:2017-08-11 08/12/2017 TIGRE Thapa Primary FELIX WILDDOB: [place] [id number] [place]N Insurance:MEDICARE [id number] Hospitals TriPoint Medical Center 91322Glk: Number: Repository [phone] [id number] -6 (HP) Date:2017-08-11 08/12/2017 Secondary FELIX LOBATOB: [place] Insurance:ANTHEMPolic [id number] Community y Number: Hospital [id number] Repository Date:1626-80-17CZ [address] [place] [address] 56677DC: 08/12/2017 Tertiary NOT GIVENUNK [place] Insurance:SELF PAY [facility] Number: Effective Repository Date:2017-08-11
== END ==
PROVIDERS: Family Provider Nurse Practitioner; PCP Nurse Practitioner; Referring Provider Psychiatry & Neurology Neurology; Visit Provider Psychiatry & Neurology Neurology
DX: E71.40 Disorder of carnitine metabolism, unspecified (principal)
CPT/HCPCS: 96365 ×2; J7050; A4216

== ENCOUNTER → 2018-07-08 09:30 | Outpatient (CLI) | payer MEDICARE, BC, SELFPAY ==
[2018-07-01 10:23] VITALS: BMI 34.1
[2018-07-06 10:10] VITALS: BMI 34.1
[2018-07-08 10:02] VITALS: BP 140/73; PULSE 65; RESP 16; TEMP 36.1; O2SAT 98; BMI 33.5
--- OUTSIDE RECORDS SUMMARY | 2018-09-11 17:30 | XMS RPT_ITS ---
:1950 Author Organization OHIP Support Name Relationship Address Phone TIGRE WILD Unavailable [address] + [place] [address] R Unavailable Unavailable TIGRE Pace Unavailable [address] + [place] [address] R Unavailable Unavailable Iliana WILD TIGRE Unavailable [address] + [place] [address] R Unavailable Unavailable Iliana WILD TIGRE Unavailable [address] + [place] [address] R Unavailable Unavailable Unavailable JUNITO TIGRE Unavailable [address] + [place] [address] R Unavailable Unavailable Iliana WILD TIGRE Unavailable [address] + [place] [address] R Unavailable Unavailable Iliana WILD TIGRE Unavailable [address] + [place] [address] R Unavailable Unavailable Unavailable JUNITO TIGRE Unavailable [address] + [place] [address] R Unavailable Unavailable Iliana WILD TIGRE Unavailable [address] + [place] [address] R Unavailable Unavailable Unavailable JUNITO TIGRE Unavailable [address] + [place] [address] R Unavailable Unavailable Unavailable JUNITO TIGRE Unavailable [address] + [place] [address] R Unavailable Unavailable Unavailable JUNITO TIGRE Unavailable [address] + [place] [address] R Unavailable Unavailable Iliana WILD TIGRE Unavailable [address] + [place] [address] R Unavailable Unavailable Unavailable WILD TIGRE Unavailable [address] + [place] [address] R Unavailable Unavailable Unavailable TIGRE WILD Unavailable [address] + [place] [address] R Unavailable Unavailable TIGRE Pace Unavailable [address] + [place] [address] R Unavailable Unavailable Unavailable TIGRE WILD Unavailable [address] + [place] [address] R Unavailable Unavailable TIGRE Pace Unavailable [address] + [place] [address] R Unavailable Unavailable Unavailable TIGRE WILD Unavailable [address] + [place] [address] R Unavailable Unavailable TIGRE Pace Unavailable [address] + [place] [address] R Unavailable Unavailable TIGRE Pace Unavailable [address] + [place] [address] R Unavailable Unavailable TIGRE Pace Unavailable [address] + [place] [address] R Unavailable Unavailable TIGRE Pace Unavailable [address] + [place] [address] R Unavailable Unavailable TIGRE Pace Unavailable [address] + [place] [address] R Unavailable Unavailable TIGRE Pace Unavailable [address] + [place] [address] R Unavailable Unavailable TIGRE Pace Unavailable [address] + [place] [address] R Unavailable Unavailable Iliana WILD TIGRE Unavailable [address] + [place] [address] R Unavailable Unavailable Unavailable TIGRE WILD Unavailable [address] + [place] [address] R Unavailable Unavailable TIGRE Pace Unavailable [address] + [place] [address] R Unavailable Unavailable Unavailable TIGRE WILD Unavailable [address] + [place] [address] R Unavailable Unavailable TIGRE Pace Unavailable [address] + [place] [address] R Unavailable Unavailable Unavailable JUNITO TIGRE Unavailable [address] + [place] [address] R Unavailable Unavailable Unavailable TIGRE WILD Unavailable [address] + [place] [address] R Unavailable Unavailable Unavailable TIGRE WILD Unavailable [address] + [place] [address] R Unavailable Unavailable Unavailable TIGER WILD Unavailable [address] + [place] [address] R Unavailable Unavailable Unavailable TIGRE WILD Unavailable [address] + [place] [address] R Unavailable Unavailable Unavailable TIGRE WILD Unavailable [address] + [place] [address] R Unavailable Unavailable Unavailable TIGRE WILD Unavailable [address] + [place] [address] R Unavailable Unavailable TIGRE Pace Unavailable [address] + [place] [address] R Unavailable Unavailable TIGRE Pace Unavailable [address] + [place] [address] R Unavailable Unavailable TIGRE Pace Unavailable [address] + [place] [address] R Unavailable Unavailable TIGRE Pace Unavailable [address] + [place] [address] R Unavailable Unavailable TIGRE Pace Unavailable [address] + [place] [address] R Unavailable Unavailable TIGRE Pace Unavailable [address] + [place] [address] R Unavailable Unavailable TIGRE Pace Unavailable [address] + [place] [address] R Unavailable Unavailable Unavailable TIGRE WILD Unavailable [address] + [place] [address] R Unavailable Unavailable Unavailable TIGRE WILD Unavailable [address] + [place] [address] R Unavailable Unavailable Unavailable TIGRE WILD Unavailable [address] + [place] [address] R Unavailable Unavailable Unavailable TIGRE WILD Unavailable [address] + [place] [address] R Unavailable Unavailable Unavailable TIGRE WILD Unavailable [address] + [place] [address] R Unavailable Unavailable Unavailable JUNITO TIGRE Unavailable [address] + [place] [address] R Unavailable Unavailable TIGRE Pace Unavailable [address] + [place] [address] R Unavailable Unavailable TIGRE Pace Unavailable [address] + [place] [address] R Unavailable Unavailable TIGRE Pace Unavailable [address] + [place] [address] R Unavailable Unavailable Unavailable TIGRE WILD Unavailable [address] + [place] [address] R Unavailable Unavailable TIGRE Pace Unavailable [address] + [place] [address] R Unavailable Unavailable Iliana WILD TIGRE Unavailable [address] + [place] [address] R Unavailable Unavailable Iliana WILD TIGRE Unavailable [address] + [place] [address] R Unavailable Unavailable Iliana WILD TIGRE Unavailable [address] + [place] [address] R Unavailable Unavailable TIGRE Pace Unavailable [address] + [place] [address] R Unavailable Unavailable Iliana WILD TIGRE Unavailable [address] + [place] [address] R Unavailable Unavailable Iliana WILD TIGRE Unavailable [address] + [place] [address] R Unavailable Unavailable Iliana WILD TIGRE Unavailable [address] + [place] [address] R Unavailable Unavailable Unavailable TIGRE WILD Unavailable [address] + [place] [address] R Unavailable Unavailable Iliana WILD TIGRE Unavailable [address] [phone]~330-4 [place] [address] R Unavailable Unavailable Unavailable JUNITO TIGRE Unavailable [address] + [place] [address] R Unavailable Unavailable Iliana WILD TIGRE Unavailable [address] [phone]~[phone] [place] [address] R Unavailable Unavailable Iliana WILD TIGRE Unavailable [address] [phone]~330-4 [place] [address] R Unavailable Unavailable TIGRE Pace Unavailable [address] [phone]~330-4 [place] [address] R Unavailable Unavailable Iliana WILD TIGRE Unavailable [address] + [place] [address] R Unavailable Unavailable Iliana WILD TIGRE Unavailable [address] + [place] [address] R Unavailable Unavailable TIGRE Pace Unavailable [address] [phone] [place] [address] R Unavailable Unavailable Iliana WILD TIGRE Unavailable [address] [phone]~330-4 [place] [address] R Unavailable Unavailable Iliana WILD TIGRE Unavailable [address] [phone]~330-4 [place] [address] R Unavailable Unavailable Iliana WILD TIGRE Unavailable [address] [phone]~330-4 [place] [address] R Unavailable Unavailable Iliana WILD TIGRE Unavailable [address] + [place] [address] R Unavailable Unavailable Iliana WILD TIGRE Unavailable [address] [phone]~330-4 [place] [address] R Unavailable Unavailable Iliana WILD TIGRE Unavailable [address] [phone]~330-4 [place] [address] R Unavailable Unavailable Iliana WILD TIGRE Unavailable [address] [phone]~330-4 [place] [address] R Unavailable Unavailable Iliana WILD TIGRE Unavailable [address] [phone]~330-4 [place] [address] R Unavailable Unavailable Iliana WILD TIGRE Unavailable [address] [phone]~330-4 [place] [address] R Unavailable Unavailable Iliana WILD TIGRE Unavailable [address] [phone]~330-4 [place] [address] R Unavailable Unavailable Iliana WILD TIGRE Unavailable [address] [phone]~330-4 [place] [address] R Unavailable Unavailable Iliana WILD TIGRE Unavailable [address] [phone]~330-4 [place] [address] R Unavailable Unavailable Unavailable JUNITO TIGRE Unavailable [address] [phone]~330-4 [place] [address] R Unavailable Unavailable Iliana WILD TIGRE Unavailable [address] [phone]~330-4 [place] [address] R Unavailable Unavailable Iliana WILD TIGRE Unavailable [address] [phone]~330-4 [place] [address] R Unavailable Unavailable Iliana WILD TIGRE Unavailable [address] [phone]~330-4 [place] [address] R Unavailable Unavailable Iliana WILD TIGRE Unavailable [address] [phone]~330-4 [place] [address] R Unavailable Unavailable Iliana WILD TIGRE Unavailable [address] [phone]~330-4 [place] [address] R Unavailable Unavailable Iliana TIGRE WILD Unavailable [address] [phone]~330-4 [place] [address] R Unavailable Unavailable Iliana WILD TIGRE Unavailable [address] [phone]~330-4 [place] [address] R Unavailable Unavailable Iliana WILD TIGRE Unavailable [address] [phone]~330-4 [place] [address] R Unavailable Unavailable Iliana WILD TIGRE Unavailable [address] [phone]~330-4 [place] [address] R Unavailable Unavailable Iliana TIGRE WILD Unavailable [address] [phone]~330-4 [place] [address] R Unavailable Unavailable Iliana WILD TIGRE Unavailable [address] [phone]~330-4 [place] [address] R Unavailable Unavailable Unavailable JUNITO TIGRE Unavailable [address] [phone]~330-4 [place] [address] R Unavailable Unavailable Iliana TIGRE WILD Unavailable [address] [phone]~330-4 [place] [address] R Unavailable Unavailable Iliana WILD TIGRE Unavailable [address] [phone]~330-4 [place] [address] R Unavailable Unavailable Iliana TIGRE WILD Unavailable [address] + [place] [address] R Unavailable Unavailable Unavailable TIGRE WILD Unavailable [address] + [place] [address] R Unavailable Unavailable Unavailable TIGRE WILD Unavailable [address] [phone]~330-4 [place] [address] R Unavailable Unavailable Unavailable Care Team Providers Name Role Phone JENNIFER IZQUIERDO Attending Unavailable PAULINE IZQUIERDOCA Haydee Attending Unavailable [facility], Aislinn Attending Unavailable Ciesa, Aislinn Referring Unavailable Ciesa, Aislinn Consulting Unavailable Kuenzler, Jennifer Attending Unavailable Kuenzler, Jennifer Referring Unavailable Ciesa, [facility] Unavailable Kuenzler, Jennifer Attending Unavailable Kuenzler, Jennifer Referring Unavailable Ciesa, Aislinn Primary Care Unavailable Kuenzler, Jennifer Attending Unavailable Kuenzler, Jennifer Referring Unavailable Ciesa, [facility] Unavailable Kuenzler, Jennifer Attending Unavailable Ciesa, Aislinn Primary Care Unavailable Kuenzler, Jennifer Attending Unavailable Kuenzler, Jennifer Referring Unavailable Ciesa, [facility] Primary [facility] Unavailable Kuenzler, Jennifer Attending [...] Attending Unavailable Kuenzler, Jennifer Referring Unavailable Ciesa, [facility] Unavailable Kuenzler, Jennifer Attending Unavailable Kuenzler, Jennifer Referring Unavailable Ciesa, Aislinn Primary Care Unavailable Kuenzler, Jennifer Attending Unavailable Kuenzler, Jennifer Referring Unavailable Ciesa, Aislinn Primary Care Unavailable Kuenzler, Jennifer Attending Unavailable Kuenzler, Jennifer Referring [facility]available [facility] Unavailable Kuenzler, Jennifer Attending Unavailable Kuenzler, Jennifer Referring Unavailable [facility] Unavailable Kuenzler, Jennifer Attending Unavailable Kuenzler, Jennifer Referring Unavailable [facility] Unavailable Kuenzler, Jennifer Attending Unavailable Kuenzler, Jennifer Referring Unavailable [facility] Unavailable Kuenzler, Jennifer Attending Unavailable Kuenzler, Jennifer Referring Unavailable [facility] Unavailable Kuenzler, Jennifer Attending Unavailable Kuenzler, Jennifer Referring Unavailable [facility] Unavailable DOCTOR, [place] Consulting Unavailable Kuenzler, Jennifer Attending Unavailable Kuenzler, Jennifer Referring Unavailable [facility] Unavailable Kuenzler, Jennifer Attending Unavailable Kuenzler, Jennifer Referring Unavailable [facility] Unavailable Kuenzler, Jennifer Attending Unavailable Kuenzler, Jennifer Referring Unavailable [facility] Unavailable Kuenzler, Jennifer Attending Unavailable Kuenzler, Jennifer Referring Unavailable [facility] Unavailable Kuenzler, Jennifer Attending Unavailable Kuenzler, Jennifer Referring Unavailable [facility] Unavailable Kuenzler, Jennifer Attending Unavailable Kuenzler, Jennifer Referring Unavailable [facility] Unavailable Kuenzler, Jennifer Attending Unavailable Kuenzler, Jennifer Referring Unavailable [facility] Unavailable Kuenzler, Jennifer Attending Unavailable Kuenzler, Jennifer Referring Unavailable [facility] Unavailable Kuenzler, Jennifer Attending Unavailable Kuenzler, Jennifer Referring Unavailable [facility] Unavailable Kuenzler, Jennifer Attending Unavailable Kuenzler, Jennifer Referring Unavailable [facility] Unavailable Kuenzler, Jennifer Attending Unavailable Kuenzler, Jennifer Referring Unavailable [facility] Unavailable Kuenzler, Jennifer Attending Unavailable Kuenzler, Jennifer Referring Unavailable [facility] Unavailable Kuenzler, Jennifer Attending Unavailable Kuenzler, Jennifer Referring Unavailable [facility] Unavailable Kuenzler, Jennifer Attending Unavailable Kuenzler, Jennifer Referring Unavailable [facility] Unavailable Kuenzler, Jennifer Attending Unavailable [facility] Unavailable Kuenzler, Jennifer Referring Unavailable Kuenzler, Jennifer Attending Unavailable Kuenzler, Jennifer Referring Unavailable [facility] Unavailable Kuenzler, Jennifer Attending Unavailable Kuenzler, Jennifer Referring Unavailable [facility] Unavailable Kuenzler, Jennifer Attending Unavailable Kuenzler, Jennifer Referring Unavailable [facility] Unavailable Kuenzler, Jennifer Attending Unavailable Kuenzler, Jennifer Referring Unavailable [facility] Unavailable Kuenzler, Jennifer Attending Unavailable Kuenzler, Jennifer Referring Unavailable [facility] Unavailable Kuenzler, Jennifer Attending Unavailable Kuenzler, Jennifer Referring Unavailable [facility] Unavailable Kuenzler, Jennifer Attending Unavailable Kuenzler, Jennifer Referring Unavailable [facility] Unavailable Kuenzler, Jennifer Attending Unavailable Kuenzler, Jennifer Referring Unavailable [facility] Unavailable [facility] Unavailable Kuenzler, Jennifer Attending Unavailable Kuenzler, Jennifer Referring Unavailable Kuenzler, Jennifer Attending Unavailable Kuenzler, Jennifer Referring Unavailable [facility] Unavailable Francisca Mejia Consulting Unavailable [facility] Attending Unavailable [facility] Referring Unavailable [facility] Unavailable Kuenzler, Jennifer Attending Unavailable Kuenzler, Jennifer Referring Unavailable [facility] Unavailable Kuenzler, Jennifer Attending Unavailable Kuenzler, Jennifer Referring Unavailable [facility] Unavailable Kuenzler, Jennifer Attending Unavailable Kuenzler, Jennifer Referring Unavailable [facility] Unavailable Kuenzler, Jennifer Attending Unavailable Kuenzler, Jennifer Referring Unavailable [facility] Unavailable Kuenzler, Jennifer Attending Unavailable Kuenzler, Jennifer Referring Unavailable [facility] Unavailable Kuenzler, Jennifer Attending Unavailable Kuenzler, Jennifer Referring Unavailable [facility] Unavailable Kuenzler, Jennifer Attending Unavailable Kuenzler, Jennifer Referring Unavailable [facility] Unavailable Kuenzler, Jennifer Attending Unavailable Kuenzler, Jennifer Referring Unavailable [facility] Unavailable Vaishnavi Dietz Attending Unavailable Vaishnavi Dietz Referring Unavailable Ciesa, [facility] Primary [facility] Unavailable Kuenzler, Jennifer Attending Unavailable Kuenzler, Jennifer Referring Unavailable [facility] Unavailable Kuenzler, Jennifer Attending Unavailable Kuenzler, Jennifer Referring Unavailable Ciesa, [facility] Primary Care Unavailable Kuenzler, Jennifer Attending Unavailable Kuenzler, Jennifer Referring Unavailable [facility] Unavailable Kuenzler, Jennifer Attending Unavailable Kuenzler, Jennifer Referring Unavailable [facility] Unavailable Kuenzler, Jennifer Attending Unavailable Kuenzler, Jennifer Referring Unavailable [facility] Unavailable Kuenzler, Jennifer Attending Unavailable Kuenzler, Jennifer Referring Unavailable [facility] Unavailable Vaishnavi Dietz Attending Unavailable Vaishnavi Dietz Referring Unavailable [facility] Unavailable Vaishnavi Dietz Attending Unavailable Vaishnavi Dietz Referring Unavailable [facility] Unavailable Kuenzler, Jennifer Attending Unavailable Kuenzler, Jennifer Referring Unavailable [facility] Unavailable Kuenzler, Jennifer Attending Unavailable Kuenzler, Jennifer Referring Unavailable [facility] Unavailable Kuenzler, Jennifer Attending Unavailable Kuenzler, Jennifer Referring Unavailable [facility] Unavailable Danelle Myers Attending Unavailable Danelle Myers Referring Unavailable [facility] Unavailable Kuenzler, Jennifer Attending Unavailable Kuenzler, Jennifer Referring Unavailable [facility] Unavailable Kuenzler, Jennifer Attending Unavailable Kuenzler, Jennifer Referring Unavailable [facility] Unavailable Kuenzler, Jennifer Attending Unavailable Kuenzler, Jennifer Referring Unavailable [facility] Unavailable Kuenzler, Jennifer Attending Unavailable Kuenzler, Jennifer Referring Unavailable [facility] Unavailable Kuenzler, Jennifer Attending Unavailable Kuenzler, Jennifer Referring Unavailable [facility] Unavailable Kuenzler, Jennifer Attending Unavailable Kuenzler, Jennifer Referring Unavailable [facility] Unavailable Kuenzler, Jennifer Attending Unavailable Kuenzler, Jennifer Referring Unavailable [facility] Unavailable Kuenzler, Jennifer Attending Unavailable Kuenzler, Jennifer Referring Unavailable [facility] Unavailable Kuenzler, Jennifer Attending Unavailable Kuenzler, Jennifer Referring Unavailable [facility] Unavailable Kuenzler, Jennifer Attending Unavailable [facility] Referring Unavailable [facility] Unavailable Kuenzler, Jennifer Attending Unavailable Kuenzler, Jennifer Referring Unavailable [facility] Unavailable Kuenzler, Jennifer Attending Unavailable Ciesa Aislinn Referring Unavailable [facility] Unavailable Kuenzler, Jennifer Attending Unavailable Kuenzler, Jennifer Referring Unavailable [facility] Unavailable Kuenzler, Jennifer Attending Unavailable Kuenzler, Jennifer Referring Unavailable [facility] Unavailable Kuenzler, Jennifer Attending Unavailable Kuenzler, Jennifer Referring Unavailable [facility] Unavailable Kuenzler, Jennifer Attending Unavailable Kuenzler, Jennifer Referring Unavailable [facility] Unavailable Kuenzler, Jennifer Attending Unavailable Kuenzler, Jennifer Referring Unavailable [facility] Unavailable Kuenzler, Jennifer Attending Unavailable Kuenzler, Jennifer Referring Unavailable [facility] Unavailable Kuenzler, Jennifer Attending Unavailable Kuenzler, Jennifer Referring Unavailable [facility] Unavailable Kuenzler, Jennifer Attending Unavailable Kuenzler, Jennifer Referring Unavailable [facility] Unavailable Kuenzler, Jennifer Attending Unavailable Kuenzler, Jennifer Referring Unavailable [facility] Unavailable Kuenzler, Jennifer Attending Unavailable Kuenzler, Jennifer Referring Unavailable [facility] Unavailable Kuenzler, Jennifer Attending Unavailable Kuenzler, Jennifer Referring Unavailable [facility] Unavailable Kuenzler, Jennifer Attending Unavailable Kuenzler, Jennifer Referring Unavailable [facility] Unavailable Ciesa, Aislinn Attending Unavailable [...] M79.606 - Pain in leg, Kumilliler, Active [place] [facility] unspecified / [facility] M79.606(ICD-10) Hospital Repository Unknown R53.83 - Other fatigue / Kuenzler, Active [place] 8 R53.83(ICD-10) [facility] Hospital Repository Unknown 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, 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 / Repository E71.314(ICD-10) Unknown N39.0 - Urinary tract Vaishnavi Dietz Active [place] 8 infection, site not Community specified / N39.0(ICD-10) Hospital Repository Unknown 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 O: BP 139/56 Pulse 62 Resp 18 [...] gait, Romberg with foot slide A/P: Felix Widl is a 68 year-old woman with muscle [...] post anticipated vacation and send script to [facility] in [place], [place] for infusions while she is there ([phone]). Follow up in 6 months. Jennifer Izquierdo MD CNOV Observed: 05/31/2018 Status: COMPLETED Source: [place] 10:40 AM [facility] REPOSITORY Office Visit (NENMMN) FELIX WILD ([id number]) 1950 F Date Time Provider Department 05/31/18 [...] is also going to be away on [place] and would like to be able to get infusions there again like last year (fax [phone]). O: BP 139/56 Pulse 62 Resp 18 [...] post anticipated vacation and send script to [facility] in [place], [place] for infusions while she is there ([phone]). Follow up in 6 months. MD Jennifer [...] 05/31/2018 Noted Resolved Myalgia and myositis, unspecified [YGT8907] INVALID FOR*03/11/2016 ANXIETY STATE NOS [F41.1] INVALID [...] for discontinue is not on file. Coenzyme Z05-Ozlsbvg E (COQ10 SG 100* 0 12/10/2011 05/31/2018 [...] Recorded Letter Text Jennifer Izquierdo MD [facility] [place] [address] [phone] , ext [phone] PRESCRIPTION SPECIFICS: NAME: Felix Wild DATE: 05/31/2018 ADDRESS: [address] [place] [address] PHONE: [phone] (home) : 1950 PRESCRIPTION: Carnitine IV infusion ? 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) Jennifer Izquierdo MD Encounter Status:Closed by JENNIFER IZQUIERDO MD on 05/31/18 VENOUS DUPLEX LOWER Observed: 05/12/2018 Status: F Source: [place] EXTREMITY 1:42 PM [facility] REPOSITORY [facility] Cardiovascular Services [address] [place], [place] [address] [address] Venous Duplex US, Unilateral 05/10/18 1256 MR#: [id number] Acct: [id number] Name: FELIX WILD Rep #: [id number] : 1950 67 From: Anthony Washburn MD Attending Dr: Aislinn Espinal NP Status: REG CLI Ordering Dr: Aislinn Espinal RETAIL SALES SPECIALIST-C Date: 05/10/18 Location: [facility] Sex: F C [...] Dictated: 05/10/18 1256 Date Transcribed: 05/12/18 1341 [place] Operator: Signed MAGNESIUM Collected: 05/11/2018 Status: F Source: [place] 9:56 AM [facility] REPOSITORY TYPE CODE TESTS RESULT OUT OF RANGE REFERENCE UNITS LAB L501.5200 1.6-2.6 mg/dL Normal MG 2.1 Performed By: #### L501.5200, L506.0500 #### [facility] [address] [place], [address] PREALBUMIN Collected: 05/11/2018 Status: F Source: [place] 9:56 AM [facility] REPOSITORY TYPE CODE TESTS RESULT OUT OF REFERENCE UNITS RANGE LAB L506.0500 20.0-40.0 mg/dL Low PREALBUMIN 19.2 Performed By: #### L501.5200, L506.0500 #### [facility] [address] [place], [address] BNP,B-TYPE NATRIURETIC Collected: 05/11/2018 Status: F Source: [place] PEPTIDE 9:56 AM [facility] REPOSITORY TYPE CODE TESTS RESULT OUT OF RANGE REFERENCE UNITS LAB L503.6620 0-100 pg/mL High B-TYPE 147.4 FATOUMATA PEP Performed By: #### L503.6620 #### [facility] [address] [place], [address] COMPREHENSIVE METABOLIC Collected: 05/06/2018 Status: F Source: [place] PROFIL 2:04 PM [facility] REPOSITORY TYPE CODE TESTS RESULT OUT [...] GAP 5 Performed By: #### L500.4050 #### [facility] [address] [facility]. [place], [place], [address] CBC W/DIFF, AUTOMATED Collected: 05/06/2018 Status: F Source: [place] 2:04 PM [facility] REPOSITORY TYPE CODE TESTS RESULT OUT [...] Lymph 1.95 Performed By: #### L100.0100 #### [facility] [address] [place], [place], [address] CBC W/DIFF, AUTOMATED Collected: 05/03/2018 Status: F Source: [place] 11:32 AM [facility] REPOSITORY TYPE CODE TESTS RESULT OUT [...] Lymph 1.39 Performed By: #### L100.0100 #### [facility] [address] [place], [address] COMPREHENSIVE METABOLIC Collected: 05/03/2018 Status: F Source: [place] 11:32 AM [facility] REPOSITORY Order Comment: Comments: TSH TYPE [...] 6 Performed By: #### L500.4050, L501.9520 #### [facility] [address] [place], [address] THYROID STIM HORMONE Collected: 05/03/2018 Status: F Source: [place] (TSH) 11:32 AM [facility] REPOSITORY Order Comment: Comments: TSH TYPE CODE TESTS RESULT OUT OF RANGE REFERENCE UNITS LAB L501.9520 0.358-3.74 uIU/mL Normal TSH 1.47 Performed By: #### L500.4050, L501.9520 #### [facility] [address] [place], [address] VITAMIN B12 Collected: 03/10/2018 Status: F Source: [place] 2:51 PM [facility] REPOSITORY TYPE CODE TESTS RESULT OUT OF REFERENCE UNITS RANGE LAB L503.0105 211-911 pg/mL High Vitamin B12 > 2000 Performed By: #### L503.0105 #### [facility] [address] [place], [address] CBC W/DIFF, AUTOMATED Collected: 02/08/2018 Status: F Source: [place] 3:11 PM [facility] REPOSITORY TYPE CODE TESTS RESULT OUT [...] Lymph 1.66 Performed By: #### L100.0100 #### [facility] [address] [facility]. [place], [place], [address] COMPREHENSIVE METABOLIC Collected: 02/08/2018 Status: F Source: [facility] 3:11 PM [facility] REPOSITORY TYPE CODE TESTS RESULT OUT [...] GAP 8 Performed By: #### L500.4050 #### [facility] [address] [facility], [address] OPERATIVE REPORT Observed: 01/25/2018 Status: F Source: [place] 12:57 PM [facility] REPOSITORY [facility] Medical Records Department [address] [facility] [place] [address] Operative Report 01/25/18 1254 MR#: [id number] Acct: [id number] Name: FELIX WILD Rep #: [id number] : 1950 67 From: Vaishnavi Dietz MD PCP: Aislinn Espinal NP Status: REG SDC Y Location: [address] Problem List (1) Urinary tract infection Status: Acute Report of Operation Date of Procedure: 01/25/18 Pre-Operative Diagnosis: urinary tract infection, pelvic pain Post-Operative Diagnosis: same and rectocele Surgery/Procedure Performed:: cystoscopy and pelvic exam under anesthesia Description of Surgical Findings:: normal cystoscopy. very short anterior vaginal wall. grade 3 rectocele. atrophy. supervisor purification: Vaishnavi Dietz Type of Anesthesia:: MAC Specimen's [...] Date Vaishnavi Dietz MD CC: Aislinn Espinal RETAIL SALES SPECIALIST; Vaishnavi Dietz MD Signed DISCHARGE INSTRUCTION Observed: 01/25/2018 Status: F Source: [place] 12:30 PM [facility] REPOSITORY [facility] Medical Records Department [address] [place] [address] Instructions for Home/Discharge Instructions 01/25/18 1228 MR#: [id number] Acct: [id number] Name: FELIX WILD Rep #: [id number] : 1950 67 From: Vaishnavi Dietz MD [...] DAILY 05/23/13 Triamcinolone Acetonide [Nasacort Aq Nasal Bath] 2 spray NASAL DAILY PRN 05/23/13 Levocarnitine [...] Date Vaishnavi Dietz MD CC: Aislinn Espinal RETAIL SALES SPECIALIST URINALYSIS, COMPLETE Collected: 01/18/2018 Status: F Source: [place] 2:47 PM [facility] REPOSITORY Order Comment: How was Urine [...] URINE SEEN Performed By: #### L400.0001 #### [facility] [place], [address] Observed: 01/18/2018 Status: F Source: [place] CULTURE, URINE 2:47 PM [facility] REPOSITORY Urine Culture ORGANISM 1: Mixed Gram Pos AND Gram Neg Org Planada Count 50,000-80,000 MIX CULTURE Mixed contaminants. Submit a new specimen if indicated. Performed By: #### M100.0650 #### [facility] [address] [place], [address] KIDNEY AND BLADDER Observed: 01/17/2018 Status: F Source: [place] 1:57 PM [facility] REPOSITORY [facility] Imaging Services [address] [place] [address] Kidney and Bladder MR#: [id number] Acct: [id number] Name: FELIX WILD Rep #: [id number] : 1950 F 67 From: Tee Weems PCP: Aislinn Espinal NP Status: REG CLI Study: Kidney and Bladder Date of Exam: 01/17/18 Exam# [id number] Ordering Dr: Vaishnavi Dietz MD STUDY: RENAL [...] CC: Aislinn Espinal NP; Vaishnavi Dietz MD [place] Operator: Signed TRANSVAGINAL Observed: 12/29/2017 Status: F Source: [place] NON- 1:42 PM [facility] REPOSITORY [facility] Imaging Services [address] [place] [address] Transvaginal Non- MR#: [id number] Acct: [id number] Name: FELIX WILD Rep #: [id number] : 1950 F 67 From: Jacky Hanson MD PCP: Aislinn Espinal NP Status: REG CLI Study: Transvaginal Non- Date of Exam: 12/29/17 Exam# [id number] Ordering Dr: Vaishnavi Dietz MD STUDY: ULTRASOUND [...] CC: Aislinn Espinal NP; Vaishnavi Dietz MD [place] Operator: Signed DOWNTIME REPORT Observed: 12/09/2017 Status: F Source: [place] 12:10 PM [facility] Medical Records Department [address] [facility] [place] [address] Downtime Report MR#: [id number] Acct: [id number] Name: FELIX WILD Rep #: [id number] : 1950 67 From: Elmer Braden PCP: Aislinn Espinal NP Status: REG CLI This patient was seen during an EMR downtime November 22, 2017 - November 29, 2017. This patient may have a combination of paper and electronic documentation or all paper documentation. All documentation is viewable within the e-chart portion of [employer] for each patient visit. DOWNTIME REPORT Observed: 12/09/2017 Status: F Source: [place] 12:09 PM [facility] Medical Records Department [address] [place] [address] Downtime Report MR#: [id number] Acct: [id number] Name: FELIX WILD Rep #: [id number] : 1950 67 From: Elmer Braden PCP: Aislinn Espinal NP Status: REG CLI This patient was seen during an EMR downtime November 22, 2017 - November 29, 2017. This patient may have a combination of paper and electronic documentation or all paper documentation. All documentation is viewable within the e-chart portion of [employer] for each patient visit. FOOT MIN 3 VIEWS Observed: 12/03/2017 Status: F Source: [place] 12:37 PM [facility] REPOSITORY [facility] Imaging Services [address] [place] [address] Foot min 3 Views MR#: [id number] Acct: [id number] Name: FELIX WILD Rep #: [id number] : 1950 F 67 From: Yahir Wolfe MD PCP: Aislinn Espinal NP Status: REG CLI Study: Foot min 3 Views Date of Exam: 12/03/17 Exam# [id number] Ordering Dr: Aislinn Espinal STUDY: X-RAY - [...] Service support , CC: Aislinn Espinal NP [place] Operator: Signed PROGRESS Observed: 12/01/2017 Status: COMPLETED Source: [place] 3:16 PM [facility] [place] REPOSITORY HNO ID: [id number] Author: Jennifer Izquierdo Service: (none) Author Type: [...] She was been seen by PCP and automatic pattern edger and has referred to urology but has [...] MD CNOV Observed: 12/01/2017 Status: COMPLETED Source: [place] 2:40 PM [facility] REPOSITORY Office Visit (NENMMN) FELIX WILD ([id number]) 1950 F Date Time Provider Department 12/01/17 [...] She was been seen by PCP and automatic pattern edger and has referred to urology but has [...] 1 capsule by mouth once * COENZYME D44-UZTWSPX E 100 MG* Take by mouth. FLUTICASONE 100 MCG-SALMETERO* Inhale 1 Puff as instructed t* MULTIVITAMIN TABLET Take one(1) tablet daily. ALIGN 4 MG CAPSULE Take one(1) tablet daily. SULINDAC 150 MG TABLET Take one(1) tablet two(2) cherry* ALBUTEROL SULFATE HFA 90 MCG/* Use 2 puffs every 4 hours as * Problem List As Of Date 12/01/2017 Noted Resolved Myalgia and myositis, unspecified [CKQ4685] INVALID FOR*03/11/2016 ANXIETY STATE NOS [F41.1] INVALID [...] Recorded Letter Text Jennifer Izquierdo MD [facility] [place] [address] [place] [address] [phone] , ext [phone] PRESCRIPTION SPECIFICS: NAME: Felix Wild DATE: 12/01/2017 ADDRESS: [address] [place] [address] PHONE: [phone] (home) : 1950 PRESCRIPTION: Carnitine IV infusion [...] Status: F Source: [place] 2:40 PM [facility] REPOSITORY Order Comment: 46 TYPE CODE TESTS RESULT OUT OF RANGE REFERENCE UNITS LAB L501.3620 26-192 U/L Normal CPK TOTAL 68 Performed By: #### L501.3620 #### [facility] [address] [place], [address] URINALYSIS, ROUTINE Collected: 11/16/2017 Status: F Source: [place] (DIPSTICK) 11:12 AM [facility] REPOSITORY Order Comment: How was Urine [...] ESTERASE 500 Performed By: #### L400.2011 #### [facility] [address] [place], [address] Observed: 11/16/2017 Status: F Source: [place] CULTURE, URINE 11:12 AM [facility] REPOSITORY Urine Culture ORGANISM 1: Escherichia coli Planada Count >100,000 Escherichia coli: REACTION Amoxacillin/Clavulanic Acid [...] <=20 S (NF) indicates non-formulary drug at [facility]. Approval by Infectious Disease Specialist required before non-formulary drugs may be ordered and/or dispensed. Performed By: #### M100.0650 #### [facility] [address] [place], [address] CBC W/DIFF, AUTOMATED Collected: 08/12/2017 Status: F Source: [place] 10:15 AM [facility] REPOSITORY TYPE CODE TESTS RESULT OUT [...] Lymph 1.50 Performed By: #### L100.0100 #### [facility] [address] [place], [address] COMPREHENSIVE METABOLIC Collected: 08/12/2017 Status: F Source: [place] [facility] 10:15 AM [facility] REPOSITORY TYPE CODE TESTS RESULT OUT [...] GAP 7 Performed By: #### L500.4050 #### [facility] [address] [place], [address] ALLERGIES ALLERGIES DATE TYPE / NAME / CODE REACTION SEVERITY SOURCE CODE 07/08/2018 Drug pentazocine Unknown Unknown [place] Allergy/41 lactate/[id number](R [facility] 0[facility]6071[facility] 07/08/2018 Drug pentazocine/[id number] Unknown Unknown [place] Allergy/41 83(RXNORM) [facility] 8251563([facility]) Repository 07/08/2018 Drug metoclopramide/F0060 Other Unknown [place] Allergy/41 20286(RXNORM) [facility] 3214378([facility]) Repository 03/13/2004 DRUG PENTAZOCINE OTHER: SEE C [address] 3045961([facility]) 09/11/2002 DRUG METOCLOPRAMIDE [address] 2565411([facility]) ENCOUNTERS ENCOUNTERS ADMIT/DISCHARGE ACCOUNT ADMITTING ENCOUNTER LOCATION SOURCE NUMBER CLASS 07/08/2018 [id number] [facility] ing:MEDOUTP Repository 07/06/2018 [id number] [facility] ing:[facility]OUTP Repository 07/04/2018 [id number] [facility] ing:MEDOUTP Repository 07/01/2018 [id number] [facility] ing:MEDOUTP Repository 06/29/2018 [id number] [facility] ing:MEDOUTP Repository 06/24/2018 [id number] [facility] ing:MEDOUTP Repository 06/20/2018 [id number] [facility] Repository 06/17/2018 [id number] [facility] Repository 06/13/2018 [id number] [facility] Repository 06/10/2018 [id number] [facility] Repository 06/09/2018 [id number] [facility] Repository 06/07/2018 [id number] [facility] Repository 06/03/2018 [id number] [facility] Repository 06/01/2018 [id number] [facility] Repository 05/31/2018/05/31/20 [id number] Ambulatory [address] Repository 05/27/2018 [id number] [facility] Repository 05/24/2018 [id number] Ambulatory Building:[facility] Repository 05/24/2018 [id number] Ambulatory [facility] ing:MED[facility]P Repository 05/20/2018 [id number] [facility] Repository 05/17/2018 [id number] [facility] Repository 05/13/2018 [id number] [facility] Repository 05/11/2018 [id number] [facility] Repository 05/10/2018 [id number] [facility] Repository 05/06/2018 [id number] [facility] Repository 05/03/2018 [id number] [facility] Repository 04/29/2018 [id number] [place] [facility] ing:MED[facility]P Repository 04/27/2018 [id number] [place] [facility] ing:[facility]P Repository 04/22/2018 [id number] [facility] [place] [facility] ing:[facility]P Repository 04/19/2018 [id number] [place] [facility] ing:[facility]P Repository 04/15/2018 [id number] [place] [facility] ing:MED[facility]P Repository 04/13/2018 [id number] [place] [place] [facility] ing:MED[facility]P Repository 04/08/2018 [id number] [facility] [place] [facility] ing:MED[facility]P Repository 04/05/2018 [id number] [facility] [place] [facility] ing:[facility]P Repository 04/01/2018 [id number] [place] [facility] ing:MED[facility]P Repository 03/30/2018 [id number] [place] [facility] ing:MED[facility]P Repository 03/25/2018 [id number] [place] [facility] ing:MED[facility]P Repository 03/22/2018 [id number] [place] [facility] ing:MED[facility]P Repository 03/18/2018 [id number] [place] [facility] ing:MED[facility]P Repository 03/15/2018 [id number] [facility] [place] [facility] ing:MED[facility]P Repository 03/10/2018 [id number] [place] [facility] ing:MED[facility]P Repository 03/08/2018 [id number] [place] [facility] ing:MED[facility]P Repository 03/01/2018 [id number] [place] [facility] ing:MED[facility]P Repository 02/25/2018 [id number] [facility] [place] [facility] ing:MEDOUTP Repository 02/23/2018 [id number] [facility] Repository 02/18/2018 [id number] [facility] Repository 02/15/2018 [id number] [facility] [place] [facility] Repository 02/11/2018 [id number] [facility] [place] [facility] ing:MEDOUTP Repository 02/08/2018 [id number] [facility] [place] [facility] Repository 02/07/2018 [id number] [facility] Repository 02/02/2018 [id number] [facility] Repository 01/28/2018 [id number] [facility] Repository 01/25/2018/01/26/20 [id number] [facility] [place] [facility] [address] [place] [address] [facility] ing:MEDOUTP Repository 01/21/2018 [id number] [facility] Repository 01/18/2018 [id number] [facility] Repository 01/17/2018 [id number] [facility] [place] [facility] Repository 01/14/2018 [id number] [place] [facility] ing:MEDOUTP Repository 01/11/2018 [id number] [place] [facility] ing:MED[facility]P Repository 01/07/2018 [id number] [facility] Repository 01/04/2018 [id number] [facility] [place] [facility] Repository 12/31/2017 [id number] [facility] [place] [facility] Repository 12/29/2017 [id number] [place] [facility] ing:[facility] Repository 12/28/2017 [id number] [place] [facility] ing:MED[facility]P Repository 12/23/2017 [id number] [place] [facility] ing:MED[facility]P Repository 12/21/2017 [id number] [facility] [place] [facility] ing:MEDOUTP Repository 12/17/2017 [id number] [place] [facility] ing:MED[facility]P Repository 12/14/2017 [id number] [place] [facility] ing:MED[facility]P Repository 12/10/2017 [id number] [place] [facility] ing:MEDOUTP Repository 12/07/2017 [id number] [place] [facility] ing:MEDOUTP Repository 12/03/2017 [id number] [place] [facility] Repository 12/03/2017 [id number] [place] [facility] ing:MEDOUTP Repository 12/01/2017/12/02/19 [id number] Ambulatory [address] Repository 11/30/2017 [id number] [place] [facility] ing:[facility]P Repository 11/26/2017 [id number] [place] [facility] ing:MED[facility]P Repository 11/23/2017 [id number] [place] [facility] ing:MEDOUTP Repository 11/19/2017 [id number] Ambulatory [facility] ing:MEDOUTP Repository 11/16/2017 [id number] Ambulatory [facility] ing:MEDOUTP Repository 11/12/2017 [id number] Ambulatory [place] [facility] ing:MEDOUTP Repository 11/10/2017 [id number] [place] [facility] ing:MEDOUTP Repository 11/04/2017 [id number] Ambulatory [place] [facility] ing:MEDOUTP Repository 11/02/2017 [id number] Ambulatory [facility] [facility] ing:MEDOUTP Repository 10/29/2017 [id number] Ambulatory [facility] ing:MEDOUTP Repository 10/26/2017 [id number] [place] [facility] ing:MEDOUTP Repository 10/22/2017 [id number] Ambulatory [facility] ing:MEDOUTP Repository 10/19/2017 [id number] [place] [facility] ing:MEDOUTP Repository 10/15/2017 [id number] Ambulatory [facility] [facility] ing:MEDOUTP Repository 10/12/2017 [id number] Ambulatory [place] [facility] [facility] ing:MEDOUTP Repository 10/08/2017 [id number] Ambulatory [facility] ing:MEDOUTP Repository 10/05/2017 [id number] Ambulatory [place] [facility] [facility] ing:MEDOUTP Repository 10/01/2017 [id number] Ambulatory [place] [facility] [facility] ing:MEDOUTP Repository 09/28/2017 [id number] Ambulatory [place] [facility] [facility] ing:MEDOUTP Repository 09/28/2017 [id number] [place] [facility] ing:MEDOUTP Repository 09/24/2017 [id number] Ambulatory [facility] [facility] ing:MEDOUTP Repository 09/21/2017 [id number] [place] [facility] ing:MEDOUTP Repository 09/17/2017 [id number] Ambulatory [place] [facility] ing:MEDOUTP Repository 09/14/2017 [id number] [place] [facility] ing:MEDOUTP Repository 09/10/2017 [id number] [place] [facility] ing:MEDOUTP Repository 09/07/2017 [id number] Ambulatory [place] [facility] [facility] ing:MEDOUTP Repository 09/03/2017 [id number] [place] [facility] ing:MEDOUTP Repository 09/01/2017 [id number] Ambulatory [facility] Hospital ing:MEDOUTP Repository 08/27/2017 [id number] Ambulatory [facility] ing:MEDOUTP Repository 08/24/2017 [id number] Ambulatory [facility] ing:MEDOUTP Repository 08/20/2017 [id number] Ambulatory [facility] ing:MEDOUTP Repository 08/17/2017 [id number] Ambulatory [facility] ing:MEDOUTP Repository 08/13/2017 [id number] Ambulatory [facility] ing:MEDOUTP Repository 08/12/2017 [id number] Ambulatory [facility] Hospital ing:MEDOUTP Repository PAYERS PAYERS ENCOUNTER GUARANTOR PAYER SUBSCRIBER SOURCE 07/08/2018 TIGRE Thapa Primary FELIX WILDDOB: [place] [id number] JASMYN Insurance:MEDICARE [id number] Hospital [address]Yft: (330) Number: Repository [phone] () [id number] Date:2018-07-01 07/08/2018 Secondary FELIX LOBATOB: Tae Insurance:[facility] [id number] Community y Number: [facility] [id number] Repository Date:2159-06-93AJ[address] [address]QG: 07/08/2018 Tertiary NOT GIVENUNK Tae Insurance:SELF PAY [facility] Number: Effective Repository Date:2018-07-01 07/06/2018 TIGRE Thapa Primary FELIX Thapa HALLDOB: T[place] [id number] JASMYN Insurance:MEDICARE [id number] Hospital 14371Xav: (330) Number: Repository [phone] () [id number] Date:2018-07-01 07/06/2018 Secondary FELIX LOBATOB: [place] Insurance:[facility] [id number] Community y Number: [facility] [id number] Repository Date:8126-02-68SN [address], [place] [address]SV: 07/06/2018 Tertiary NOT GIVENUNK Ate Insurance:SELF PAY [facility] Number: Effective Repository Date:2018-07-01 07/04/2018 TIGRE Thapa Primary FELIX J HALLDOB: [place] [id number] JASMYN Insurance:MEDICARE [id number] [facility] A [facility] [address]Yea: (330) Number: Repository [phone] () [id number] Date:2018-07-01 07/04/2018 Secondary FELIX J JUNITODOB: Tae Insurance:ANTHEMPolic [id number] Community y Number: Hospital [id number] Repository Date:3283-95-24BI [address], [place] [address]MW: 07/04/2018 Tertiary NOT GIVENUNK Tae Insurance:SELF PAY [facility] Number: Effective Repository Date:2018-07-01 07/01/2018 TIGRE Thapa Primary FELIX J HALLDOB: T[place] [id number] JASMYN Insurance:MEDICARE [id number] RMH Medical Center A [facility] 68174Bur: (330) Number: Repository [phone] () [id number] Date:2018-06-24 07/01/2018 Secondary FELIX J JUNITODOB: [place] Insurance:ANTHEMPnyu [facility] [id number] Community y Number: Hospital [id number] Repository Date:1710-35-27OJ [address]KP, [place] [address]IF: 07/01/2018 Tertiary NOT GIVENUNK Tae Insurance:SELF PAY [facility] Number: Effective Repository Date:2018-06-24 06/29/2018 KASH Primary FELIX J HALLDOB: [place] [id number] JASMYN Insurance:MEDICARE [id number] Hospital [address]Lwa: (330) Number: Repository [phone] () [id number] Date:2018-06-24 06/29/2018 Secondary FELIX J HALLDOB: [place] Insurance:ANTHEMPolic [id number] Community y Number: Hospital [id number] Repository Date:2963-48-35FE [address] [place] [address] 125[address]MW: 06/29/2018 Tertiary NOT GIVENUNK [place] Insurance:SELF PAY [facility] Number: Effective Repository Date:2018-06-24 06/24/2018 TIGRE Thapa Primary FELIX J HALLDOB: [place] [id number] JASMYN Insurance:MEDICARE [id number] Hospital 20[address]Occ: (330) Number: Repository [phone] () [id number] Date:2018-06-17 06/24/2018 Secondary FELIX J JUNITODOB: Tae Insurance:ANTHEMPolic [id number] Community y Number: Hospital [id number] Repository Date:4985-48-00CP [address]YUG, [place] [address]TI: 06/24/2018 Tertiary NOT GIVENUNK Tae Insurance:SELF PAY [facility] Number: Effective Repository Date:2018-06-17 06/20/2018 TIGRE Thapa Primary FELIX J HALLDOB: [place] [id number] JASMYN Insurance:MEDICARE [id number] Hospital 64691Kdq: (330) Number: Repository [phone] () [id number] Date:2018-06-17 06/20/2018 Secondary FELIX J HALLDOB: [place] Insurance:ANTHEMPolic [id number] Community y Number: Hospital [id number] Repository Date:7011-78-84LX [address]QADDYWZ, [place] [address]LQ: 06/20/2018 Tertiary NOT GIVENUNK [place] Insurance:SELF PAY [facility] Number: Effective Repository Date:2018-06-17 06/17/2018 TIGRE Thapa Primary FELIX J HALLDOB: [place] [id number] JASMYN Insurance:MEDICARE [id number], [place] PART A [facility] [address]Tms: (330) Number: Repository [phone] () [id number] Date:2018-06-16 06/17/2018 Secondary FELIX J HALLDOB: [place] Insurance:ANTHEMPolic [id number] Community y Number: Hospital [id number] Repository Date:9366-94-30JC [address] [place] [address]OD: 06/17/2018 Tertiary NOT GIVENUNK [place] Insurance:SELF PAY [facility] Number: Effective Repository Date:2018-06-16 06/13/2018 TIGRE Thapa Primary FELIX J HALLDOB: [place] [id number] JASMYN Insurance:MEDICARE [id number] PART [place] [facility] 82106Ucv: (330) Number: Repository [phone] () [id number] Date:2018-06-13 06/13/2018 Secondary FELIX J HALLDOB: [place] Insurance:ANTHEMPolic [id number] Community y Number: Hospital [id number] Repository Date:9802-69-08QJ [address] [place] [address] 18126ME: 06/13/2018 Tertiary NOT GIVENUNK Tae Insurance:SELF PAY [facility] Number: Effective Repository Date:2018-06-13 06/10/2018 KASH Primary FELIX J HALLDOB: [place] [id number] JASMYN Insurance:MEDICARE [id number] RMH Medical Center A [facility] 18082Chb: (330) Number: Repository [phone] () [id number] Date:2018-06-03 06/10/2018 Secondary FELIX J HALLDOB: Tae Insurance:ANTHEMPolic [id number] Community y Number: Hospital [id number] Repository Date:2774-96-28KO [address] [place] [address] 46735RZ: 06/10/2018 Tertiary NOT GIVENUNK [place] Insurance:SELF PAY [facility] Number: Effective Repository Date:2018-06-03 06/09/2018 TIGRE Thapa Primary FELIX J HALLDOB: [place] [id number] JASMYN Insurance:MEDICARE [id number][place] [facility] 24289Obt: (330) Number: Repository [phone] () [id number] Date:2018-06-07 06/09/2018 Secondary FELIX J HALLDOB: Tae Insurance:ANTHEMPolic [id number] Community y Number: Hospital [id number] Repository Date:9469-11-12SP [address] [place] [address] 54266MG: 06/09/2018 Tertiary NOT GIVENUNK Tae Insurance:SELF PAY [facility] Number: Effective Repository Date:2018-06-07 06/07/2018 TIGRE Thapa Primary FELIX J HALLDOB: [place] [id number] JASMYN Insurance:MEDICARE [id number], [place] PART A [facility] 03967Rwk: (330) Number: Repository [phone] () [id number] Date:2018-06-03 06/07/2018 Secondary FELIX J HALLDOB: [place] Insurance:ANTHEMPolic [id number] Community y Number: Hospital [id number] Repository Date:7592-11-14WQ [address] [place] [address] 88216VL: 06/07/2018 Tertiary NOT GIVENUNK [place] Insurance:SELF PAY [facility] Number: Effective Repository Date:2018-06-03 06/03/2018 TIGRE Thapa Primary FELIX J HALLDOB: [place] [id number] JASMYN Insurance:MEDICARE [id number][place] [facility] 92243Zos: (330) Number: Repository [phone] () [id number] Date:2018-05-27 06/03/2018 Secondary FELIX J JUNITODOB: Tae Insurance:ANTHEMPolic [id number] [facility] y Number: Hospital [id number] Repository Date:0095-77-62CS [address] [place] [address] 744[address]TV: 06/03/2018 Tertiary NOT GIVENUNK Tae Insurance:SELF PAY [facility] Number: Effective Repository Date:2018-05-27 06/01/2018 KASH Primary FELIX J HALLDOB: [place] [id number] JASMYN Insurance:MEDICARE [id number][place] PART A [facility] 72614Avq: (330) Number: Repository [phone] () [id number] Date:2018-05-27 06/01/2018 Secondary FELIX Alanis WILDDOB: Tae Insurance:ANTHEMPolic [id number] [facility] y Number: Hospital [id number] Repository Date:2978-00-68IG [address], [place] [address]JN: 06/01/2018 Tertiary NOT GIVENUNK Tae Insurance:SELF PAY [facility] Number: Effective Repository Date:2018-05-27 05/27/2018 KASH Primary FELIX J JUNITODOB: [place] [id number] JASMYN Insurance:MEDICARE [id number] [place] PART A [facility] [address]87[address]Lkc: (330) Number: Repository [phone] () [id number] Date:2018-05-23 05/27/2018 Secondary FELIX J HALLDOB: [place] Insurance:ANTHEMPolic [id number] [facility] y Number: Hospital [id number] Repository Date:1524-99-21XC [address] [place] [address] 57099JP: 05/27/2018 Tertiary NOT GIVENUNK Tae Insurance:SELF PAY [facility] Number: Effective Repository Date:2018-05-23 05/24/2018 Felix LobatoB: Primary Felix J JunitoDOB: [place] [employer] Insurance:MedicarePol [id number] Repository Jasmyn icy Number: 6 [address] [place] [id number] [place] [address]Wej: (330) Date:1586-05-73Hacz 06585Pls: Name:HEELER [phone] (HP) (HP)Tel: (030) 90062266537Ackww[place], [place] [phone] () [address]QN: 05/24/2018 Secondary Felix LobatoB: [place] [employer] Insurance:[place]/Supp [id number] Repository lementPolicy Number: 6 Jasmyn [id number] [place], [place] Date:1039-04-77Dkzt [address]Nid: Name:[address] [place] [address] (HP) [id number]: 05/24/2018 Tertiary Felix LobatoB: [place] Insurance:AultcarePol [id number] Repository icy Number: 6 Jasmyn [id number] [place] 00Effective [address]Mhw: Date:2008-02-20 - ~(3 6976-64-91Zskg 30 (HP) Name:[facility] [address], [place] [address]NB: 05/24/2018 [facility] [place]IP Practices Insurance:[place] [id number] Repository /BSPolicy Number: Jasmyn [id number] [place], [place] Date: - [address]Fcf: (804) 4839-51-15Nvjs [phone] (HP) Name:[address]fsfi, [place] [address]UF: 05/24/2018 TIGRE Thapa [facility] FELIX LOBATOB: Tae [id number] JASMYN Insurance:MEDICARE [id number] [facility] [place] PART A [facility] [address]Wmv: (330) Number: Repository [phone] () [id number] Date:2018-05-23 05/24/2018 Secondary FELIX J HALLDOB: [place] Insurance:ANTHEMPolic [id number] Community y Number: Hospital [id number] Repository Date:6361-61-95GR [address] [place] [address] 884[address]JA: 05/24/2018 Tertiary NOT GIVENUNK Tae Insurance:SELF PAY [facility] Number: Effective Repository Date:2018-05-23 05/20/2018 KASH Primary FELIX J HALLDOB: [place] [id number] JASMYN Insurance:MEDICARE [id number] Hospital 76[address]Pru: (330) Number: Repository [phone] () [id number] Date:2018-05-13 05/20/2018 Secondary FELIX J HALLDOB: [place] Insurance:ANTHEMPolic [id number] Community y Number: Hospital [id number] Repository Date:1525-63-63PI [address] [place] [address] 31567DD: 05/20/2018 Tertiary NOT GIVENUNK [place] Insurance:SELF PAY [facility] Number: Effective Repository Date:2018-05-13 05/17/2018 KASH Primary FELIX J HALLDOB: T[place] [id number] JASMYN Insurance:MEDICARE [id number] Hospital 38368Vws: (330) Number: Repository [phone] () [id number] Date:2018-05-13 05/17/2018 Secondary FELIX J HALLDOB: Tae Insurance:ANTHEMPolic [id number] Community y Number: Hospital [id number] Repository Date:6897-17-36TM [address] [place] [address] 90502ET: 05/17/2018 Tertiary NOT GIVENUNK Tae Insurance:SELF PAY [facility] Number: Effective Repository Date:2018-05-13 05/13/2018 KASH Primary FELIX J HALLDOB: [place] [id number] JASMYN Insurance:MEDICARE [id number] RMH Medical Center A [facility] 85349Tmw: (330) Number: Repository [phone] () [id number] Date:2018-05-10 05/13/2018 Secondary FELIX J HALLDOB: [place] Insurance:ANTHEMPolic [id number] Community y Number: Hospital [id number] Repository Date:6227-31-13TW [address] [place] [address] 34282UI: 05/13/2018 Tertiary NOT GIVENUNK [place] Insurance:SELF PAY [facility] Number: Effective Repository Date:2018-05-10 05/11/2018 KASH Primary FELIX J HALLDOB: Tae [id number] JASMYN Insurance:MEDICARE [id number] RMH Medical Center A [facility] [address]8660Dwu: (330) Number: Repository [phone] () [id number] Date:2018-05-10 05/11/2018 Secondary FELIX J HALLDOB: [place] Insurance:ANTHEMPolic [id number] Community y Number: Hospital [id number] Repository Date:0755-49-48HT [address] [place] [address] 09527TL: 05/11/2018 Tertiary NOT GIVENUNK Tae Insurance:SELF PAY [facility] Number: Effective Repository Date:2018-05-10 05/10/2018 KASH Primary FELIX J HALLDOB: [place] [id number] JASMYN Insurance:MEDICARE [id number] Hospital 57690Ona: (330) Number: Repository [phone] () [id number] Date:2018-05-03 05/10/2018 Secondary FELIX J HALLDOB: [place] Insurance:ANTHEMPolic [id number] Community y Number: Hospital [id number] Repository Date:3063-75-91RU [address] [place] [address] 61287QE: 05/10/2018 Tertiary NOT GIVENUNK Tae Insurance:SELF PAY [facility] Number: Effective Repository Date:2018-05-03 05/06/2018 TIGRE Thapa Primary FELIX WILDDOB: [place] [id number] JASMYN Insurance:MEDICARE [id number], [place] PART A [facility] 96[address]Ypc: (330) Number: Repository [phone] () [id number] Date:2018-04-29 05/06/2018 Secondary FELIX J HALLDOB: [place] Insurance:ANTHEMPolic [id number] Community y Number: [facility] [id number] Repository Date:7066-72-53VR [address] [place] [address] 14237IG: 05/06/2018 Tertiary NOT GIVENUNK Tae Insurance:SELF PAY [facility] Number: Effective Repository Date:2018-04-29 05/03/2018 TIGRE Thapa Primary FELIX WILDDOB: [place] [id number] JASMYN Insurance:MEDICARE [id number] RMH Medical Center A [facility] [address]9790Tcu: (330) Number: Repository [phone] () [id number] Date:2018-04-29 05/03/2018 Secondary FELIX Alanis WILDDOB: T[place] Insurance:ANTHEMPolic [id number] Community y Number: Hospital [id number] Repository Date:7094-07-62DR [address]AEZGTQP [place] [address]CB: 05/03/2018 Tertiary NOT GIVENUNK Tae Insurance:SELF PAY [facility] Number: Effective Repository Date:2018-04-29 04/29/2018 TIGRE Thapa Primary FELIX Thapa HALLDOB: [place] [id number] JASMYN Insurance:MEDICARE [id number] Hospital 91098Zrk: (330) Number: Repository [phone] () [id number] Date:2018-04-26 04/29/2018 Secondary FELIX J JUNITODOB: [place] Insurance:ANTHEMPolic [id number] Community y Number: Hospital [id number] Repository Date:4938-05-65CB [address]QLWFL, [place] [address]PO: 04/29/2018 Tertiary NOT GIVENUNK [place] Insurance:SELF PAY [facility] Number: Effective Repository Date:2018-04-26 04/27/2018 TIGRE Thapa Primary FELIX J HALLDOB: T[place] [id number] JASMYN Insurance:MEDICARE [id number] Hospital 72494Rhd: (330) Number: Repository [phone] () [id number] Date:2018-04-26 04/27/2018 Secondary FELIX Alanis WILDDOB: [place] Insurance:ANTHEMPnyu [facility] [id number] Community y Number: Hospital [id number] Repository Date:1820-58-13AH [address]KSSJKLQ, [place] [address]VW: 04/27/2018 Tertiary NOT GIVENUNK Tae Insurance:SELF PAY [facility] Number: Effective Repository Date:2018-04-26 04/22/2018 TIGRE Thapa Primary FELIX J HALLDOB: [place] [id number] JASMYN Insurance:MEDICARE [id number] Hospital 23857Zof: (330) Number: Repository [phone] () [id number] Date:2018-04-13 04/22/2018 Secondary FELIX J JUNITODOB: Tae Insurance:ANTHEMPolic [id number] Community y Number: Hospital [id number] Repository Date:0225-67-74WP [address], [place] [address]JQ: 04/22/2018 Tertiary NOT GIVENUNK [place] Insurance:SELF PAY [facility] Number: Effective Repository Date:2018-04-13 04/19/2018 TIGRE Thapa Primary FELIX J HALLDOB: Tae [id number] JASMYN Insurance:MEDICARE [id number] Hospital 08327Apu: (330) Number: Repository [phone] () [id number] Date:2018-04-13 04/19/2018 Secondary FELIX J HALLDOB: [place] Insurance:ANTHEMPolic [id number] Community y Number: Hospital [id number] Repository Date:4566-80-67JX [address] [place] [address] 52441SP: 04/19/2018 Tertiary NOT GIVENUNK [place] Insurance:SELF PAY [facility] Number: Effective Repository Date:2018-04-13 04/15/2018 TIGRE Thapa Primary FELIX J HALLDOB: Tae [id number] JASMYN Insurance:MEDICARE [id number] Hospital 005[address]Urp: (330) Number: Repository [phone] () [id number] Date:2018-04-08 04/15/2018 Secondary FELIX J HALLDOB: [place] Insurance:ANTHEMPolic [id number] Community y Number: Hospital [id number] Repository Date:9127-22-06WZ [address] [place] [address] 41629DR: 04/15/2018 Tertiary NOT GIVENUNK Tae Insurance:SELF PAY [facility] Number: Effective Repository Date:2018-04-08 04/13/2018 TIGRE Thapa Primary FELIX J HALLDOB: [place] [id number] JASMYN Insurance:MEDICARE [id number] Hospital 31954Xmd: (330) Number: Repository [phone] () [id number] Date:2018-04-08 04/13/2018 Secondary FELIX J HALLDOB: Tae Insurance:ANTHEMPolic [id number] Community y Number: Hospital [id number] Repository Date:1048-53-82IK [address] [place] [address] 42004WX: 04/13/2018 Tertiary NOT GIVENUNK [place] Insurance:SELF PAY [facility] Number: Effective Repository Date:2018-04-08 04/08/2018 KASH Primary FELIX J HALLDOB: [place] [id number] JASMYN Insurance:MEDICARE [id number], [place] PART A [facility] 60915Lnv: (330) Number: Repository [phone] () [id number] Date:2018-04-01 04/08/2018 Secondary FELIX J HALLDOB: [place] Insurance:ANTHEMPolic [id number] Community y Number: Hospital [id number] Repository Date:7621-70-61SG [address] [place] [address] 14270VB: 04/08/2018 Tertiary NOT GIVENUNK Tae Insurance:SELF PAY [facility] Hospital Number: Effective Repository Date:2018-04-01 04/05/2018 TIGRE Thapa Primary FELIX J HALLDOB: [place] [id number] JASMYN Insurance:MEDICARE [id number], [place] PART [place] [facility] 54369Oaj: (330) Number: Repository [phone] () [id number] Date:2018-04-01 04/05/2018 Secondary FELIX J HALLDOB: Tae Insurance:ANTHEMPolic [id number] Community y Number: Hospital [id number] Repository Date:0300-71-88HT [address] [place] [address] 47871QQ: 04/05/2018 Tertiary NOT GIVENUNK Tae Insurance:SELF PAY [facility] Number: Effective Repository Date:2018-04-01 04/01/2018 TIGRE Thapa Primary FELIX J HALLDOB: Tae [id number] JASMYN Insurance:MEDICARE [id number] [facility] Medical Center A [facility] 38958Akn: (330) Number: Repository [phone] () [id number] Date:2018-03-25 04/01/2018 Secondary FELIX J HALLDOB: [place] Insurance:ANTHEMPolic [id number] Community y Number: [facility] [id number] Repository Date:7316-38-97CB [address] [place] [address] 58702LS: 04/01/2018 Tertiary NOT GIVENUNK Tae Insurance:SELF PAY Community [facility] Number: Effective Repository Date:2018-03-25 03/30/2018 TIGRE Thapa Primary FELIX WILDDOB: [place] [id number] JASMYN Insurance:MEDICARE [id number], [place] PART A [facility] 77975Xhh: (330) Number: Repository [phone] () [id number] Date:2018-03-25 03/30/2018 Secondary FELIX J HALLDOB: [place] Insurance:ANTHEMPolic [id number] Community y Number: Hospital [id number] Repository Date:0732-63-63BP [address] [place] [address] 59140OK: 03/30/2018 Tertiary NOT GIVENUNK Tae Insurance:SELF PAY [facility] Hospital Number: Effective Repository Date:2018-03-25 03/25/2018 TIGRE Thapa Primary FELIX WILDDOB: [place] [id number] JASMYN Insurance:MEDICARE [id number][place] [facility] 98175Ego: (330) Number: Repository [phone] () [id number] Date:2018-03-18 03/25/2018 Secondary FELIX Alanis WILDDOB: [place] Insurance:ANTHEMPolic [id number] Community y Number: Hospital [id number] Repository Date:7465-59-18CR [address] [place] [address] 78220AH: 03/25/2018 Tertiary NOT GIVENUNK [place] Insurance:SELF PAY [facility] Number: Effective Repository Date:2018-03-18 03/22/2018 TIGRE Thapa Primary FELIX WILDDOB: [place] [id number] JASMYN Insurance:MEDICARE [id number] 16719Fzu: (330) Number: Repository [phone] () [id number] Date:2018-03-18 03/22/2018 Secondary FELIX J JUNITODOB: [place] Insurance:ANTHEMPolic [id number] Community y Number: Hospital [id number] Repository Date:4128-97-66DX [address] [place] [address] 00324WK: 03/22/2018 Tertiary NOT GIVENUNK Tae Insurance:SELF PAY [facility] Number: Effective Repository Date:2018-03-18 03/18/2018 TIGRE Thapa Primary FELIX J HALLDOB: [place] [id number] JASMYN Insurance:MEDICARE [id number] Hospital 77091Bql: (330) Number: Repository [phone] () [id number] Date:2018-03-11 03/18/2018 Secondary FELIX Alanis WILDDOB: [place] Insurance:ANTHEMPolic [id number] Community y Number: Hospital [id number] Repository Date:0440-13-81GW [address]YZ[place], [place] [address]HI: 03/18/2018 Tertiary NOT GIVENUNK Tae Insurance:SELF PAY [facility] Hospital Number: Effective Repository Date:2018-03-11 03/15/2018 TIGRE Thapa Primary FELIX J HALLDOB: [place] [id number] JASMYN Insurance:MEDICARE [id number] Hospital 18112Rhf: (330) Number: Repository [phone] () [id number] Date:2018-03-11 03/15/2018 Secondary FELIX J JUNITODOB: [place] Insurance:ANTHEMPolic [id number] Community y Number: Hospital [id number] Repository Date:1281-18-00SF [address] [place] [address] 77866BZ: 03/15/2018 Tertiary NOT GIVENUNK [place] Insurance:SELF PAY [facility] Hospital Number: Effective Repository Date:2018-03-11 03/10/2018 TIGRE Thapa Primary FELIX J HALLDOB: [place] [id number] JASMYN Insurance:MEDICARE [id number] Hospital 88129Yeb: (330) Number: Repository [phone] () [id number] Date:2018-03-04 03/10/2018 Secondary FELIX J HALLDOB: [place] Insurance:ANTHEMPolic [id number] Community y Number: Hospital [id number] Repository Date:9369-09-08KI [address] [place] [address] 65599RP: 03/10/2018 Tertiary NOT GIVENUNK [place] Insurance:SELF PAY [facility] Hospital Number: Effective Repository Date:2018-03-04 03/08/2018 TIGRE Thapa Primary FELIX J HALLDOB: [place] [id number] JASMYN Insurance:MEDICARE [id number] Hospital 09614Mmc: (330) Number: Repository [phone] () [id number] Date:2018-03-03 03/08/2018 Secondary FELIX J HALLDOB: [place] Insurance:ANTHEMPolic [id number] Community y Number: Hospital [id number] Repository Date:9748-92-59WF [address] [place] [address] 66961JO: 03/08/2018 Tertiary NOT GIVENUNK [place] Insurance:SELF PAY [facility] Hospital Number: Effective Repository Date:2018-03-03 03/01/2018 TIGRE Thapa Primary FELIX J HALLDOB: [place] [id number] JASMYN Insurance:MEDICARE [id number] Hospital 38921Zmm: (330) Number: Repository [phone] () [id number] Date:2018-02-28 03/01/2018 Secondary FELIX J HALLDOB: [place] Insurance:ANTHEMPolic [id number] Community y Number: Hospital [id number] Repository Date:3951-66-83KM [address] [place] [address] 25929EL: 03/01/2018 Tertiary NOT GIVENUNK [place] Insurance:SELF PAY [facility] Hospital Number: Effective Repository Date:2018-02-28 02/25/2018 TIGRE Thapa Primary FELIX J HALLDOB: [place] [id number] JASMYN Insurance:MEDICARE [id number] Hospital 95790Bed: (330) Number: Repository [phone] () [id number] Date:2018-02-22 02/25/2018 Secondary FELIX J HALLDOB: [place] Insurance:ANTHEMPolic [id number] Community y Number: Hospital [id number] Repository Date:7958-95-78MQ [address] [place] [address] 08719KC: 02/25/2018 Tertiary NOT GIVENUNK Tae Insurance:SELF PAY [facility] Number: Effective Repository Date:2018-02-22 02/23/2018 TIGRE Thapa Primary FELIX J HALLDOB: [place] [id number] JASMYN Insurance:MEDICARE [id number] Hospital 24559Yak: (330) Number: Repository [phone] () [id number] Date:2018-02-22 02/23/2018 Secondary FELIX J HALLDOB: [place] Insurance:ANTHEMPolic [id number] Community y Number: Hospital [id number] Repository Date:7507-58-98EJ [id number] [place] [address] 39503ZA: 02/23/2018 Tertiary NOT GIVENUNK [place] Insurance:SELF PAY [facility] Hospital Number: Effective Repository Date:2018-02-22 02/18/2018 TIGRE Thapa Primary FELIX J HALLDOB: [place] [id number] JASMYN Insurance:MEDICARE [id number] Hospital 13805Nks: (330) Number: Repository [phone] () [id number] Date:2018-02-11 02/18/2018 Secondary FELIX J HALLDOB: [place] Insurance:ANTHEMPolic [id number] Community y Number: Hospital [id number] Repository Date:3566-46-61WK [address] [place] [address] 83494RM: 02/18/2018 Tertiary NOT GIVENUNK Tae Insurance:SELF PAY Community [facility] Hospital Number: Effective Repository Date:2018-02-11 02/15/2018 TIGRE Thapa Primary FELIX Thapa HALLDOB: [place] [id number] JASMYN Insurance:MEDICARE [id number], [place] PART A [facility] 08332Jne: (330) Number: Repository [phone] () [id number] Date:2018-02-11 02/15/2018 Secondary FELIX J HALLDOB: [place] Insurance:ANTHEMPolic [id number] Community y Number: [facility] [id number] Repository Date:8503-48-82WQ [address] [place] [address] 28704IV: 02/15/2018 Tertiary NOT GIVENUNK [place] Insurance:SELF PAY [facility] Hospital Number: Effective Repository Date:2018-02-11 02/11/2018 TIGRE Thapa Primary FELIX WILDDOB: [place] [id number] JASMYN Insurance:MEDICARE [id number] RMH Medical Center A [facility] 42117Njt: (330) Number: Repository [phone] () [id number] Date:2018-02-04 02/11/2018 Secondary FELIX Alanis WILDDOB: [place] Insurance:ANTHEMPolic [id number] Community y Number: [facility] [id number] Repository Date:4620-87-07HM [address] [place] [address] 41428WJ: 02/11/2018 Tertiary NOT GIVENUNK [place] Insurance:SELF PAY [facility] Hospital Number: Effective Repository Date:2018-02-04 02/08/2018 TIGRE Thapa Primary FELIX WILDDOB: [place] [id number] JASMYN Insurance:MEDICARE [id number] RMH Medical Center A [facility] 97769Fvb: (330) Number: Repository [phone] () [id number] Date:2018-02-08 02/08/2018 Secondary FELIX J JUNITODOB: [place] Insurance:ANTHEMPolic [id number] Community y Number: Hospital [id number] Repository Date:9314-70-94UQ [address] [place] [address] 88176QW: 02/08/2018 Tertiary NOT GIVENUNK Tae Insurance:SELF PAY [facility] Number: Effective Repository Date:2018-02-08 02/07/2018 TIGRE Thapa Primary FELIX WILDDOB: [place] [id number] JASMYN Insurance:MEDICARE [id number] Hospital 28148Xjp: (330) Number: Repository [phone] () [id number] Date:2018-01-31 02/07/2018 Secondary FELIX WILDDOB: [place] Insurance:ANTHEMPolic [id number] Community y Number: Hospital [id number] Repository Date:8174-52-68YN [address] [place] [address] 17357QL: 02/07/2018 Tertiary NOT GIVENUNK Tae Insurance:SELF PAY [facility] Number: Effective Repository Date:2018-01-31 02/02/2018 TIGRE Thapa Primary FELIX WILDDOB: [place] [id number] JASMYN Insurance:MEDICARE [id number] Hospital 93159Gsm: (330) Number: Repository [phone] () [id number] Date:2018-01-31 02/02/2018 Secondary FELIXApolinar WILDDOB: [place] Insurance:ANTHEMPolic [id number] Community y Number: Hospital [id number] Repository Date:6961-50-79QD [address] [place] [address] 92293SF: 02/02/2018 Tertiary NOT GIVENUNK [place] Insurance:SELF PAY [facility] Hospital Number: Effective Repository Date:2018-01-31 01/28/2018 TIGRE Thapa Primary FELIX WILDDOB: [place] [id number] JASMYN Insurance:MEDICARE [id number] Hospital 88634Gcd: (330) Number: Repository [phone] () [id number] Date:2018-01-21 01/28/2018 Secondary FELIX J HALLDOB: [place] Insurance:ANTHEMPolic [id number] Community y Number: Hospital [id number] Repository Date:5166-64-34UP [address]JGWG [place] [address]LL: 01/28/2018 Tertiary NOT GIVENUNK [place] Insurance:SELF PAY [facility] Number: Effective Repository Date:2018-01-21 01/25/2018 KASH Primary FELIX J HALLDOB: [place] [id number] JASMYN Insurance:MEDICARE [id number] Hospital 71460Wps: (330) Number: Repository [phone] () [id number] Date:2018-01-14 01/25/2018 Secondary FELIX J HALLDOB: [place] Insurance:ANTHEMPolic [id number] Community y Number: Hospital [id number] Repository Date:1321-78-43BK [address]FRWLJ [place] [address]UI: 01/25/2018 Tertiary NOT GIVENUNK Tae Insurance:SELF PAY [facility] Hospital Number: Effective Repository Date:2018-01-14 01/21/2018 KASH Primary FELIX J HALLDOB: [place] [id number] JASMYN Insurance:MEDICARE [id number] Hospital 00906Mlg: (330) Number: Repository [phone] () [id number] Date:2018-01-14 01/21/2018 Secondary FELIX J HALLDOB: [place] Insurance:ANTHEMPolic [id number] Community y Number: Hospital [id number] Repository Date:4133-78-16RS [address]KFQPXRY, [place] [address]YS: 01/21/2018 Tertiary NOT GIVENUNK Tae Insurance:SELF PAY [facility] Hospital Number: Effective Repository Date:2018-01-14 01/18/2018 TIGRE Thapa Primary FELIX J HALLDOB: [place] [id number] JASMYN Insurance:MEDICARE [id number] Hospital 22955Ygw: (330) Number: Repository [phone] () [id number] Date:2018-01-14 01/18/2018 Secondary FELIX J HALLDOB: [place] Insurance:ANTHEMPolic [id number] Community y Number: Hospital [id number] Repository Date:2007-84-46IX [address] [place] [address] 64389JU: 01/18/2018 Tertiary NOT GIVENUNK [place] Insurance:SELF PAY [facility] Number: Effective Repository Date:2018-01-14 01/17/2018 TIGRE Thapa Primary FELIX J HALLDOB: [place] [id number] JASMYN Insurance:MEDICARE [id number] Hospital 30985Xkx: (330) Number: Repository [phone] () [id number] Date:2018-01-13 01/17/2018 Secondary FELIX J HALLDOB: [place] Insurance:ANTHEMPolic [id number] Community y Number: Hospital [id number] Repository Date:5463-86-29DG [address]JZ[address] [place] [address] 04341ZY: 01/17/2018 Tertiary NOT GIVENUNK [place] Insurance:SELF PAY [facility] Hospital Number: Effective Repository Date:2018-01-13 01/14/2018 TIGRE Thapa Primary FELIX J HALLDOB: [place] [id number] JASMYN Insurance:MEDICARE [id number] Hospital 21914Eur: (330) Number: Repository [phone] () [id number] Date:2018-01-07 01/14/2018 Secondary FELIX J HALLDOB: [place] Insurance:ANTHEMPolic [id number] Community y Number: Hospital [id number] Repository Date:7257-14-49ZS [id number] [place] [address] 86902JT: 01/14/2018 Tertiary NOT GIVENUNK [place] Insurance:SELF PAY Community [facility] Number: Effective Repository Date:2018-01-07 01/11/2018 TIGRE Thapa Primary FELIX J HALLDOB: [place] [id number] JASMYN Insurance:MEDICARE [id number] [place], [place] PART A [facility] 85422Yxn: (330) Number: Repository [phone] () [id number] Date:2018-01-07 01/11/2018 Secondary FELIX J HALLDOB: [place] Insurance:ANTHEMPolic [id number] Community y Number: [facility] [id number] Repository Date:7279-71-83FK [address] [place] [address] 41446GL: 01/11/2018 Tertiary NOT GIVENUNK Tae Insurance:SELF PAY [facility] Number: Effective Repository Date:2018-01-07 01/07/2018 TIGRE Thapa Primary FELIX J HALLDOB: [place] [id number] JASMYN Insurance:MEDICARE [id number] [place] PART A [facility] 93416Qlx: (330) Number: Repository [phone] () [id number] Date:2018-01-03 01/07/2018 Secondary FELIX J HALLDOB: [place] Insurance:ANTHEMPolic [id number] Community y Number: [facility] [id number] Repository Date:0655-97-49JQ [address] [place] [address] 08463TA: 01/07/2018 Tertiary NOT GIVENUNK [place] Insurance:SELF PAY [facility] Hospital Number: Effective Repository Date:2018-01-03 01/04/2018 TIGRE Thapa Primary FELIX J HALLDOB: [place] [id number] JASMYN Insurance:MEDICARE [id number] [facility] A [facility] 71592Loz: (330) Number: Repository [phone] () [id number] Date:2018-01-03 01/04/2018 Secondary FELIX J HALLDOB: [place] Insurance:ANTHEMPolic [id number] Community y Number: Hospital [id number] Repository Date:5569-28-11OA [address] [place] [address] 18839WL: 01/04/2018 Tertiary NOT GIVENUNK Tae Insurance:SELF PAY [facility] Number: Effective Repository Date:2018-01-03 12/31/2017 TIGRE Thapa Primary FELIX WILDDOB: [place] [id number] JASMYN Insurance:MEDICARE [id number] Hospital 52329Bpx: (330) Number: Repository [phone] () [id number] Date:2017-12-23 12/31/2017 Secondary FELIX WILDDOB: [place] Insurance:ANTHEMPolic [id number] Community y Number: Hospital [id number] Repository Date:8919-86-97KX [address] [place] [address] 27907FA: 12/31/2017 Tertiary NOT GIVENUNK Tae Insurance:SELF PAY [facility] Number: Effective Repository Date:2017-12-23 12/29/2017 TIGRE Thapa Primary FELIX WILDDOB: [place] [id number] JASMYN Insurance:MEDICARE [id number] Hospital 36568Qyo: (330) Number: Repository [phone] () [id number] Date:2017-12-23 12/29/2017 Secondary FELIXApolinar WILDDOB: [place] Insurance:ANTHEMPolic [id number] Community y Number: Hospital [id number] Repository Date:8558-69-40KK [address] [place] [address] 05861TI: 12/29/2017 Tertiary NOT GIVENUNK Tae Insurance:SELF PAY [facility] Number: Effective Repository Date:2017-12-23 12/28/2017 TIGRE Thapa Primary FELIX WILDDOB: [place] [id number] [place]ASMYN Insurance:MEDICARE [id number] Hospital 37611Osn: (330) Number: Repository [phone] () [id number] Date:2017-12-23 12/28/2017 Secondary FELIX J HALLDOB: [place] Insurance:ANTHEMPolic [id number] Community y Number: Hospital [id number] Repository Date:3333-85-76QW [address] [place] [address] [place] 538[address]XE: 12/28/2017 Tertiary NOT GIVENUNK [place] Insurance:SELF PAY [facility] Number: Effective Repository Date:2017-12-23 12/23/2017 KASH Primary FELIX J HALLDOB: [place] [id number] JASMYN Insurance:MEDICARE [id number] Hospital 81236Pbj: (330) Number: Repository [phone] () [id number] Date:2017-12-17 12/23/2017 Secondary FELIX J HALLDOB: [place] Insurance:ANTHEMPolic [id number] Community y Number: Hospital [id number] Repository Date:5794-92-57OS [address]YQWICKJ [place] [address]XX: 12/23/2017 Tertiary NOT GIVENUNK [place] Insurance:SELF PAY [facility] Hospital Number: Effective Repository Date:2017-12-17 12/21/2017 AKSH Primary FELIX J HALLDOB: [place] [id number] JASMYN Insurance:MEDICARE [id number] Hospital 77958Wti: (330) Number: Repository [phone] () [id number] Date:2017-12-17 12/21/2017 Secondary FELIX J HALLDOB: [place] Insurance:ANTHEMPolic [id number] Community y Number: Hospital [id number] Repository Date:6489-51-53JH [address]EZXZ, [place] [address]KS: 12/21/2017 Tertiary NOT GIVENUNK [place] Insurance:SELF PAY [facility] Number: Effective Repository Date:2017-12-17 12/17/2017 TIGRE Thapa Primary FELIX J HALLDOB: [place] [id number] JASMYN Insurance:MEDICARE [id number] Hospital 91674Myq: (330) Number: Repository [phone] () [id number] Date:2017-12-10 12/17/2017 Secondary FELIX J HALLDOB: [place] Insurance:ANTHEMPolic [id number] Community y Number: Hospital [id number] Repository Date:8486-91-90CL [address] [place] [address] 78553EZ: 12/17/2017 Tertiary NOT GIVENUNK Tae Insurance:SELF PAY [facility] Number: Effective Repository Date:2017-12-10 12/14/2017 TIGRE Thapa Primary FELIX J HALLDOB: [place] [id number] JASMYN Insurance:MEDICARE [id number] [facility] A [facility] 58907Mvk: (330) Number: Repository [phone] () [id number] Date:2017-12-10 12/14/2017 Secondary FELIX J HALLDOB: [place] Insurance:ANTHEMPolic [id number] Community y Number: Hospital [id number] Repository Date:6723-11-44OI [address]FCKMVEJ, [place] [address]DF: 12/14/2017 Tertiary NOT GIVENUNK Tae Insurance:SELF PAY [facility] Number: Effective Repository Date:2017-12-10 12/10/2017 TIGRE Thapa Primary FELIX J HALLDOB: T[place] [id number] JASMYN Insurance:MEDICARE [id number] Hospital 91222Osh: Number: Repository [phone] [id number] () Date:2017-12-03 12/10/2017 Secondary FELIX J HALLDOB: [place] Insurance:ANTHEMPolic [id number] Community y Number: Hospital [id number] Repository Date:3656-47-64DD [address] [place] [address] 50976DE: 12/10/2017 Tertiary NOT GIVENUNK [place] Insurance:SELF PAY [facility] Number: Effective Repository Date:2017-12-03 12/07/2017 TIGRE Thapa Primary FELIX J HALLDOB: [place] [id number] JASMYN Insurance:MEDICARE [id number], [place] [facility] 45729Pcq: (330) Number: Repository [phone] () [id number] Date:2017-12-03 12/07/2017 Secondary FELIX J HALLDOB: [place] Insurance:ANTHEMPolic [id number] Community y Number: [facility] [id number] Repository Date:0847-44-08CH [address] [place] [address] 85689TQ: 12/07/2017 Tertiary NOT GIVENUNK [place] Insurance:SELF PAY [facility] Number: Effective Repository Date:2017-12-03 12/03/2017 TIGRE Thapa Primary FELIX J HALLDOB: [place] [id number] JASMYN Insurance:MEDICARE [id number], [place] PART [place] [facility] 39918Avy: Number: Repository [phone] [id number] (HP) Date:2017-12-03 12/03/2017 Secondary FELIX J HALLDOB: [place] Insurance:ANTHEMPolic [id number] Community y Number: [facility] [id number] Repository Date:2584-23-62OV [address] [place] [address] 01150LD: 12/03/2017 Tertiary NOT GIVENUNK Tae Insurance:SELF PAY [facility] Hospital Number: Effective Repository Date:2017-12-03 12/03/2017 TIGRE Thapa Primary FELIX J HALLDOB: [place] [id number] JASMYN Insurance:MEDICARE [id number] RMH Medical Center A [facility] 55247Zsb: Number: Repository [phone] [id number] (HP) Date:2017-12-01 12/03/2017 Secondary FELIX Alanis WILDDOB: Tae Insurance:ANTHEMPolic [id number] Community y Number: Hospital [id number] Repository Date:4958-39-69OK [address] [place] [address] 49333VV: 12/03/2017 Tertiary NOT GIVENUNK Tae Insurance:SELF PAY Community [facility] Number: Effective Repository Date:2017-12-01 11/30/2017 TIGRE Thapa Primary FELIX J JUNITODOB: [place] [id number] JASMYN Insurance:MEDICARE [id number] Hospital 26595Fyp: Number: Repository [phone]~[facility] [id number] () Date:2017-11-29 11/30/2017 Secondary FELIX J JUNITODOB: Tae Insurance:ANTHEMPolic [id number] [facility] y Number: Hospital [id number] Repository Date:0433-55-18GK [address]JTPUYBB, [place] [address]DA: 11/30/2017 Tertiary NOT GIVENUNK Tae Insurance:SELF PAY [facility] Number: Effective Repository Date:2017-11-29 11/26/2017 TIGRE Thapa Primary FELIX WILDDOB: [place] [id number] JASMYN Insurance:MEDICARE [id number] [facility] 25876Hua: (330) Number: Repository [phone] () [id number] Date:2017-11-19 11/26/2017 Secondary FELIX J HALLDOB: [place] Insurance:ANTHEMPolic [id number] Community y Number: Hospital [id number] Repository Date:7838-05-09[id number] [place] [address] 335[address]IB: 11/26/2017 Tertiary NOT GIVENUNK [place] Insurance:SELF PAY Community [facility] Hospital Number: Effective Repository Date:2017-11-19 11/23/2017 TIGRE Thapa Primary FELIX WILDDOB: T[place] [id number] JASMYN Insurance:MEDICARE [id number] PART A [facility] [id number]: [phone]) Number: Repository [phone] () [id number] Date:2017-11-19 11/23/2017 Secondary FELIX J HALLDOB: [place] Insurance:ANTHEMPolic [id number] Community y Number: Hospital [id number] Repository Date:[id number] [address] [place] [address] 29408YX: 11/23/2017 Tertiary NOT GIVENUNK [place] Insurance:SELF PAY [facility] Number: Effective Repository Date:2017-11-19 11/19/2017 TIGRE Thapa Primary FELIX J HALLDOB: Tae [id number] JASMYN Insurance:ANTHEMPolic [id number], [place] y Number: Hospital [id number]: [id number] Repository [phone] Date:[id number] ) [id number], [place] [address]EG: 11/19/2017 Secondary FELIX J HALLDOB: [place] Insurance:MEDICARE [id number] Community PART A [place] [facility] Number: Repository [id number] Date:2017-11-12 11/19/2017 Tertiary NOT GIVENUNK [place] Insurance:SELF PAY [facility] Number: Effective Repository Date:2017-11-12 11/16/2017 TIGRE Thapa Primary FELIX J HALLDOB: T[place] [id number] JASMYN Insurance:MEDICARE [id number] PART A [facility] [address]Mwe: Number: Repository [phone] [id number] -6 () Date:2017-11-12 11/16/2017 Secondary FELIX J HALLDOB: T[place] Insurance:ANTHEMPolic [id number] Community y Number: Hospital [id number] Repository Date:0587-22-81ZU [address] [address]OW: 11/16/2017 Tertiary NOT GIVENUNK [place] Insurance:SELF PAY [facility] Number: Effective Repository Date:2017-11-12 11/12/2017 TIGRE Thapa Primary FELIX J HALLDOB: Tae [id number] JASMYN Insurance:MEDICARE [id number] Hospital [address]Yli: Number: Repository [phone] [id number] -6 (HP) Date:2017-11-02 11/12/2017 Secondary FELIX J HALLDOB: Tae Insurance:ANTHEMPolic [id number] Community y Number: Hospital [id number] Repository Date:9734-82-14TJ [address] [place] [address] 264[address]OJ: 11/12/2017 Tertiary NOT GIVENUNK [place] Insurance:SELF PAY [facility] Number: Effective Repository Date:2017-11-02 11/10/2017 TIGRE Thapa Primary FELIX J HALLDOB: [place] [id number] JASMYN Insurance:MEDICARE [id number] Hospital [address]Dxm: Number: Repository [phone] [id number] -6 (HP) Date:2017-11-02 11/10/2017 Secondary FELIX WILDDOB: Tae Insurance:ANTHEMPolic [id number] Community y Number: Hospital [id number] Repository Date:0462-90-64CF [address] [place] [address] 18278SI: 11/10/2017 Tertiary NOT GIVENUNK Tae Insurance:SELF PAY [facility] Number: Effective Repository Date:2017-11-02 11/04/2017 TIGRE Thapa Primary FELIX J HALLDOB: T[place] [id number] JASMYN Insurance:MEDICARE [id number] Hospital [address]Nfa: (330) Number: Repository [phone] (HP) [id number] Date:2017-10-29 11/04/2017 Secondary FELIX J HALLDOB: [place] Insurance:ANTHEMPolic [id number] Community y Number: Hospital [id number] Repository Date:8797-45-76DZ [address]AYCIIAC, [place] [address]FG: 11/04/2017 Tertiary NOT GIVENUNK [place] Insurance:SELF PAY [facility] Number: Effective Repository Date:2017-10-29 11/02/2017 TIGRE Thapa Primary FELIX J HALLDOB: T[place] [id number] JASMYN Insurance:MEDICARE [id number] Hospital [address]Rbo: Number: Repository [phone] [id number] -6 (HP) Date:2017-10-29 11/02/2017 Secondary FELIX Alanis WILDDOB: [place] Insurance:ANTHEMPolic [id number] Community y Number: [facility] [id number] Repository Date:4874-75-01TY [address]QCKRLKZ, [place] [address]QF: 11/02/2017 Tertiary NOT GIVENUNK Tae Insurance:SELF PAY [facility] Number: Effective Repository Date:2017-10-29 10/29/2017 TIGRE Thapa Primary FELIX J HALLDOB: T[place] [id number] [place] Insurance:MEDICARE [id number] Hospital [address]Ndd: Number: Repository [phone] [id number] -6 (HP) Date:2017-10-25 10/29/2017 Secondary FELIX Alanis WILDDOB: [place] [facility] [id number] Community y Number: [facility] [id number] Repository Date:5087-90-67SZ [address]EPIUWTR, [place] [address]IW: 10/29/2017 Tertiary NOT GIVENUNK [place] Insurance:SELF PAY [facility] Number: Effective Repository Date:2017-10-25 10/26/2017 TIGRE Thapa Primary FELIX J JUNITODOB: [place] [id number] JASMYN Insurance:MEDICARE [id number] Hospital [address]Wsz: Number: Repository [phone] [id number] -6 (HP) Date:2017-10-25 10/26/2017 Secondary FELIX J HALLDOB: T[place] Insurance:ANTHEMPolic [id number] Community y Number: Hospital [id number] Repository Date:0070-55-19OG [address]Y[address] [place] [address]DX: 10/26/2017 Tertiary NOT GIVENUNK Tae Insurance:SELF PAY [facility] Number: Effective Repository Date:2017-10-25 10/22/2017 TIGRE Thapa Primary FELIX J HALLDOB: T[place] [id number] [place]ASMYN Insurance:MEDICARE [id number] Hospital [address]Zxv: Number: Repository [phone] [id number] -6 (HP) Date:2017-10-15 10/22/2017 Secondary FELIX J HALLDOB: [place] Insurance:ANTHEMPolic [id number] Community y Number: Hospital [id number] Repository Date:6140-24-02JE [address]ZAFANLQ, [place] [address]AI: 10/22/2017 Tertiary NOT GIVENUNK T[place] Insurance:SELF PAY [facility] Number: Effective Repository Date:2017-10-15 10/19/2017 KASH Primary FELIX J HALLDOB: T[place] [id number] JASMYN Insurance:MEDICARE [id number] Hospital [address]Ker: Number: Repository [phone] [id number] -6 (HP) Date:2017-10-15 10/19/2017 Secondary FELIX J HALLDOB: [place] Insurance:ANTHEMPolic [id number] Community y Number: Hospital [id number] Repository Date:3380-78-27UL [address]LDFYAAT, [place] [address]KG: 10/19/2017 Tertiary NOT GIVENUNK T[place] Insurance:SELF PAY [facility] Number: Effective Repository Date:2017-10-15 10/15/2017 TIGRE Thapa Primary FELIX J HALLDOB: [place] [id number] [place]ASMY[place] Insurance:MEDICARE [id number] Hospital [address]Fkj: Number: Repository [phone] [id number] -6 (HP) Date:2017-10-08 10/15/2017 Secondary FELIX J HALLDOB: [place] Insurance:ANTHEMPolic [id number] Community y Number: Hospital [id number] Repository Date:6219-91-88CL [address]CRQQODX, [place] [address]MF: 10/15/2017 Tertiary NOT GIVENUNK T[place] Insurance:SELF PAY [facility] Number: Effective Repository Date:2017-10-08 10/12/2017 TIGRE Thapa Primary FELIX J HALLDOB: [place] [id number] [place] Insurance:MEDICARE [id number] Hospital [address]Xqq: Number: Repository [phone] [id number] -6 (HP) Date:2017-10-08 10/12/2017 Secondary FELIX J HALLDOB: [place] Insurance:ANTHEMPolic [id number] Community y Number: Hospital [id number] Repository Date:9209-24-44DW [address]FUKTYHQ, [place] [address]ZL: 10/12/2017 Tertiary NOT GIVENUNK [place] Insurance:SELF PAY [facility] Number: Effective Repository Date:2017-10-08 10/08/2017 TIGRE Thapa Primary FELIX J HALLDOB: [place] [id number] JASMYN Insurance:MEDICARE [id number] Hospital [address]Zlu: Number: Repository [phone] [id number] -6 (HP) Date:2017-10-01 10/08/2017 Secondary FELIX J HALLDOB: [place] Insurance:ANTHEMPolic [id number] Community y Number: Hospital [id number] Repository Date:1232-97-00VF [address] [place] [address] 425[address]RG: 10/08/2017 Tertiary NOT GIVENUNK [place] Insurance:SELF PAY [facility] Number: Effective Repository Date:2017-10-01 10/05/2017 TIGRE Thapa Primary FELIX J HALLDOB: [place] [id number] JASMYN Insurance:MEDICARE [id number] [facility] A [facility] [address]Fvc: Number: Repository [phone] [id number] -6 (HP) Date:2017-10-01 10/05/2017 Secondary FELIX J HALLDOB: [place] Insurance:ANTHEMPolic [id number] Community y Number: Hospital [id number] Repository Date:1480-64-54CR [address] [place] [address] 344[address]CA: 10/05/2017 Tertiary NOT GIVENUNK [place] Insurance:SELF PAY [facility] Number: Effective Repository Date:2017-10-01 10/01/2017 TIGRE Thapa Primary FELIX J HALLDOB: [place] [id number] [place] Insurance:MEDICARE [id number] RMH Medical Center A [facility] [address]Xws: Number: Repository [phone] [id number] -6 (HP) Date:2017-09-24 10/01/2017 Secondary FELIX J HALLDOB: [place] Insurance:ANTHEMPolic [id number] Community y Number: Hospital [id number] Repository Date:2874-84-62TS [address] [place] [address] 514[address]BC: 10/01/2017 Tertiary NOT GIVENUNK T[place] Insurance:SELF PAY [facility] Number: Effective Repository Date:2017-09-24 09/28/2017 TIGRE Thapa Primary FELIX J HALLDOB: [place] [id number] JASMYN Insurance:MEDICARE [id number] Hospital [address]Smj: Number: Repository [phone] [id number] -6 (HP) Date:2017-09-24 09/28/2017 Secondary FELIX J HALLDOB: [place] Insurance:ANTHEMPolic [id number] Community y Number: Hospital [id number] Repository Date:4461-98-16UR [address]NRFHLQR [place] [address]AM: 09/28/2017 Tertiary NOT GIVENUNK [place] Insurance:SELF PAY [facility] Number: Effective Repository Date:2017-09-24 09/28/2017 TIGRE Thapa Primary FELIX J HALLDOB: [place] [id number] JASMYN Insurance:ANTHEMPolic [id number] [place] y Number: Hospital [address]Pvg: [id number] Repository [phone] Date:3826-17-11QO [address] ) [address]6097WJPVKGX, [place] [address]OR: 09/28/2017 Secondary FELIX J JUNITODOB: [place] Insurance:MEDICARE [id number] [facility] PART A [facility] Number: Repository [id number] Date:2017-06-02 09/28/2017 Tertiary NOT GIVENUNK T[place] Insurance:SELF PAY [facility] Number: Effective Repository Date:2017-06-02 09/24/2017 TIGRE Thapa Primary FELIX J HALLDOB: [place] [id number] JASMYN Insurance:MEDICARE [id number] [place] PART A [facility] Hospital [address]Tqj: Number: Repository [phone] [id number] -6 () Date:2017-09-17 09/24/2017 Secondary FELIX J HALLDOB: [place] Insurance:ANTHEMPolic [id number] Community y Number: Hospital [id number] Repository Date:1998-46-45TT [address]YYSNPHJ [place] [address]CH: 09/24/2017 Tertiary NOT GIVENUNK [place] Insurance:SELF PAY Community [facility] Number: Effective Repository Date:2017-09-17 09/21/2017 TIGRE Thapa Primary FELIX J HALLDOB: [place] [id number] JASMY[place] Insurance:MEDICARE [id number] [facility] [address]Xex: Number: Repository [phone] [id number] -6 (HP) Date:2017-09-17 09/21/2017 Secondary FELIX J HALLDOB: [place] Insurance:ANTHEMPolic [id number] Community y Number: Hospital [id number] Repository Date:2609-37-74LL [address]WWAETK, [place] [address]LS: 09/21/2017 Tertiary NOT GIVENUNK T[place] Insurance:SELF PAY [facility] Number: Effective Repository Date:2017-09-17 09/17/2017 TIGRE Thapa Primary FELIX J HALLDOB: [place] [id number] JASMYN Insurance:MEDICARE [id number] Hospital [address]San: Number: Repository [phone] [id number] -6 (HP) Date:2017-09-13 09/17/2017 Secondary FELIX J HALLDOB: [place] Insurance:ANTHEMPolic [id number] Community y Number: Hospital [id number] Repository Date:1283-46-63YY [address]PNVVWNLPARESH [address]EDRA[address] [address]: 09/17/2017 Tertiary NOT GIVENUNK [place] Insurance:SELF PAY [facility] Number: Effective Repository Date:2017-09-13 09/14/2017 TIGRE Thapa Primary FELIX J HALLDOB: [place] [id number] JASMYN Insurance:MEDICARE [id number] Hospital [address]Jmv: Number: Repository [phone] [id number] -6 (HP) Date:2017-09-13 09/14/2017 Secondary FELIX J HALLDOB: [place] Insurance:ANTHEMPolic [id number] [facility] y Number: Hospital [id number] Repository Date:2820-72-83EN [address]EKAILJZ, [place] [address]IS: 09/14/2017 Tertiary NOT GIVENUNK [place] Insurance:SELF PAY [facility] Number: Effective Repository Date:2017-09-13 09/10/2017 TIGRE Thapa Primary FELIX WILDDOB: [place] [id number] JASMYN Insurance:MEDICARE [id number] RMH Medical Center A [facility] [address]Wmv: Number: Repository [phone] [id number] -6 (HP) Date:2017-09-03 09/10/2017 Secondary FELIX J JUNITODOB: [place] Insurance:ANTHEMPolic [id number] Community y Number: [facility] [id number] Repository Date:0996-79-71CR [address] [place] [address]OU: 09/10/2017 Tertiary NOT GIVENUNK T[place] Insurance:SELF PAY [facility] Number: Effective Repository Date:2017-09-03 09/07/2017 TIGRE Thapa Primary FELIX WILDDOB: [place] [id number] JASMYN Insurance:MEDICARE [id number] RMH Medical Center A [facility] [address]Uzb: Number: Repository [phone] [id number] -6 (HP) Date:2017-09-03 09/07/2017 Secondary FELIXApolinar WILDDOB: [place] Insurance:ANTHEMPolic [id number] Community y Number: Hospital [id number] Repository Date:1954-57-61HM [address] [place] [address] 79[address]SV: 09/07/2017 Tertiary NOT GIVENUNK [place] Insurance:SELF PAY [facility] Number: Effective Repository Date:2017-09-03 09/03/2017 TIGRE Thapa Primary FELIX WILDDOB: [place] [id number] JASMYN Insurance:MEDICARE [id number] Hospital [address]Zpk: Number: Repository [phone] [id number] -6 (HP) Date:2017-08-27 09/03/2017 Secondary FELIX J JUNITODOB: [place] Insurance:ANTHEMPolic [id number] Community y Number: Hospital [id number] Repository Date:0439-97-81AO [address] [place] [address] 389[address]WO: 09/03/2017 Tertiary NOT GIVENUNK [place] Insurance:SELF PAY [facility] Number: Effective Repository Date:2017-08-27 09/01/2017 TIGRE Thapa Primary FELIX WILDDOB: [place] [id number] [place] Insurance:MEDICARE [id number] Hospital [address]Phu: Number: Repository [phone] [id number] -6 (HP) Date:2017-08-27 09/01/2017 Secondary FELIX WILDDOB: [place] Insurance:ANTHEMPnyu [facility] [id number] Community y Number: Hospital [id number] Repository Date:9574-76-85YG [address] [place] [address] 26168AI: 09/01/2017 Tertiary NOT GIVENUNK [place] Insurance:SELF PAY [facility] Number: Effective Repository Date:2017-08-27 08/27/2017 TIGRE Thapa Primary FELIX WILDDOB: [place] [id number] [place] Insurance:MEDICARE [id number] Hospital [address]Kud: Number: Repository [phone] [id number] -6 (HP) Date:2017-08-20 08/27/2017 Secondary FELIXApolinar WILDDOB: [place] Insurance:ANTHEMPolic [id number] Community y Number: Hospital [id number] Repository Date:7207-26-85AS [address]UUXLGRQ, [place] [address]EO: 08/27/2017 Tertiary NOT GIVENUNK [place] Insurance:SELF PAY [facility] Number: Effective Repository Date:2017-08-20 08/24/2017 TIGRE Thapa Primary FELIX WILDDOB: [place] [id number] [place] Insurance:MEDICARE [id number] Hospital [address]Gzp: Number: Repository [phone] [id number] -6 () Date:2017-08-20 08/24/2017 Secondary FELIX J HALLDOB: [place] Insurance:ANTHE[place]olic [id number] Community y Number: Hospital [id number] Repository Date:4592-90-84HZ [address]OUBNC [place] [address]DA: 08/24/2017 Tertiary NOT GIVENUNK [place] Insurance:SELF PAY [facility] Number: Effective Repository Date:2017-08-20 08/20/2017 TIGRE Thapa Primary FELIX J HALLDOB: [place] [id number] JASMYN Insurance:MEDICARE [id number] Hospital [address]Box: Number: Repository [phone] [id number] -6 () Date:2017-08-12 08/20/2017 Secondary FELIX J HALLDOB: [place] Insurance:ANTHEMPolic [id number] Community y Number: Hospital [id number] Repository Date:5934-41-37SN [address] [address]SB: 08/20/2017 Tertiary NOT GIVENUNK [place] Insurance:SELF PAY [facility] Number: Effective Repository Date:2017-08-12 08/17/2017 TIGRE Thapa Primary FELIX J HALLDOB: [place] [id number] JASMYN Insurance:MEDICARE [id number] Hospital [address]Gyr: (330) Number: Repository [phone] [id number] Date:2017-08-12 08/17/2017 Secondary FELIX J HALLDOB: [place] Insurance:ANTHEMPolic [id number] Community y Number: Hospital [id number] Repository Date:2119-86-04DE [address]JSGNGMM, [place] [address]BW: 08/17/2017 Tertiary NOT GIVENUNK [place] Insurance:SELF PAY Community [facility] Number: Effective Repository Date:2017-08-12 08/13/2017 TIGRE Thapa Primary FELIX WILDDOB: [place] [id number] [place]MY[place] Insurance:MEDICARE [id number] Hospital [address]Zxc: (330) Number: Repository [phone] () [id number] Date:2017-08-11 08/13/2017 Secondary FELIX LOBATOB: [place] Insurance:ANTHEMPolic [id number] Community y Number: Hospital [id number] Repository Date:8500-41-33UL [address] [place] [address] 25[address]GM: 08/13/2017 Tertiary NOT GIVENUNK T[place] Insurance:SELF PAY [facility] Number: Effective Repository Date:2017-08-11 08/12/2017 TIGRE Thapa Primary FELIX WILDDOB: [place] [id number] JASMYN Insurance:MEDICARE [id number] Hospital [address]Wxn: Number: Repository [phone] [id number] -6 (HP) Date:2017-08-11 08/12/2017 Secondary FELIX LOBATOB: [place] Insurance:ANTHEMPolic [id number] Community y Number: Hospital [id number] Repository Date:3343-55-48TC [address] [place] [address]QN: 08/12/2017 Tertiary NOT GIVENUNK [place] Insurance:SELF PAY [facility] Number: Effective Repository Date:2017-08-11
== END ==
PROVIDERS: Family Provider Nurse Practitioner; PCP Nurse Practitioner; Referring Provider Psychiatry & Neurology Neurology; Visit Provider Psychiatry & Neurology Neurology
DX: E71.314 Muscle carnitine palmitoyltransferase deficiency (principal)
CPT/HCPCS: 96365 ×2; J7050; A4216

== ENCOUNTER → 2018-07-19 09:59 | Outpatient (CLI) | payer MEDICARE, BC, SELFPAY ==
[2018-07-08 10:02] VITALS: BMI 33.5
[2018-07-19 10:34] VITALS: BP 131/79; PULSE 63; RESP 16; TEMP 36.4; O2SAT 98; BMI 33.5
== END ==
PROVIDERS: Family Provider Nurse Practitioner; PCP Nurse Practitioner; Referring Provider Psychiatry & Neurology Neurology; Visit Provider Psychiatry & Neurology Neurology
DX: E71.314 Muscle carnitine palmitoyltransferase deficiency (principal)
CPT/HCPCS: 96365 ×2; J7050; A4216

== ENCOUNTER → 2018-07-21 09:59 | Outpatient (CLI) | payer MEDICARE, BC, SELFPAY ==
[2018-07-08 10:02] VITALS: BMI 33.5
[2018-07-19 10:34] VITALS: BMI 33.5
[2018-07-21 10:06] VITALS: BP 139/70; PULSE 68; RESP 16; TEMP 35.9; O2SAT 99; BMI 34.1
[2018-07-21 14:32] VITALS: BP 153/75; PULSE 66; RESP 16; TEMP 36.3; O2SAT 94
== END ==
PROVIDERS: Family Provider Nurse Practitioner; PCP Nurse Practitioner; Referring Provider Psychiatry & Neurology Neurology; Visit Provider Psychiatry & Neurology Neurology
DX: E71.314 Muscle carnitine palmitoyltransferase deficiency (principal)
CPT/HCPCS: 96365 ×2; J7050; A4216

== ENCOUNTER → 2018-07-26 13:49 | Outpatient (CLI) | payer MEDICARE, BC, SELFPAY ==
[2018-07-21 10:06] VITALS: BMI 34.1
[2018-07-26 14:03] VITALS: BP 139/67; PULSE 70; RESP 18; TEMP 36.6; O2SAT 99; BMI 34.1
== END ==
PROVIDERS: Family Provider Nurse Practitioner; PCP Nurse Practitioner; Referring Provider Psychiatry & Neurology Neurology; Visit Provider Psychiatry & Neurology Neurology
DX: E71.314 Muscle carnitine palmitoyltransferase deficiency (principal)
CPT/HCPCS: 96365; J7050; A4216

== ENCOUNTER → 2018-07-29 09:45 | Outpatient (CLI) | payer MEDICARE, BC, SELFPAY ==
[2018-07-21 10:06] VITALS: BMI 34.1
[2018-07-26 14:03] VITALS: BMI 34.1
[2018-07-29 10:05] VITALS: BP 162/73; PULSE 73; RESP 16; TEMP 36.2; O2SAT 98; BMI 33.1
== END ==
PROVIDERS: Family Provider Nurse Practitioner; PCP Nurse Practitioner; Referring Provider Psychiatry & Neurology Neurology; Visit Provider Psychiatry & Neurology Neurology
DX: E71.314 Muscle carnitine palmitoyltransferase deficiency (principal)
CPT/HCPCS: 96365 ×2; J7050; A4216

== ENCOUNTER → 2018-08-03 09:47 | Outpatient (CLI) | payer MEDICARE, BC, SELFPAY ==
[2018-07-26 14:03] VITALS: BMI 34.1
[2018-07-29 10:05] VITALS: BMI 33.1
[2018-08-03 10:02] VITALS: BP 131/73; PULSE 61; RESP 16; TEMP 36.8; O2SAT 97; BMI 33.1
[2018-08-03 14:00] VITALS: BP 139/76; PULSE 59; RESP 18; TEMP 35.9; O2SAT 99
== END ==
PROVIDERS: Family Provider Nurse Practitioner; PCP Nurse Practitioner; Referring Provider Psychiatry & Neurology Neurology; Visit Provider Psychiatry & Neurology Neurology
DX: E71.314 Muscle carnitine palmitoyltransferase deficiency (principal)
CPT/HCPCS: 96365 ×2; J7050; A4216

== ENCOUNTER → 2018-08-05 09:43 | Outpatient (CLI) | payer MEDICARE, BC, SELFPAY ==
[2018-07-26 14:03] VITALS: BMI 34.1
[2018-08-03 10:02] VITALS: BMI 33.1
[2018-08-05 10:02] VITALS: BP 136/72; PULSE 68; RESP 16; TEMP 36.7; O2SAT 92; BMI 33.1
[2018-08-05 13:48] VITALS: BP 122/61; PULSE 70; RESP 18; TEMP 35.5; O2SAT 93
== END ==
PROVIDERS: Family Provider Nurse Practitioner; PCP Nurse Practitioner; Referring Provider Psychiatry & Neurology Neurology; Visit Provider Psychiatry & Neurology Neurology
DX: E71.314 Muscle carnitine palmitoyltransferase deficiency (principal)
CPT/HCPCS: 96365 ×2; J7050; A4216

== ENCOUNTER → 2018-08-12 09:52 | Outpatient (CLI) | payer MEDICARE, BC, SELFPAY ==
[2018-08-05 10:02] VITALS: BMI 33.1
[2018-08-12 10:04] VITALS: BP 126/61; PULSE 66; RESP 16; TEMP 36.6; O2SAT 99; BMI 33.1
== END ==
PROVIDERS: Family Provider Nurse Practitioner; PCP Nurse Practitioner; Referring Provider Psychiatry & Neurology Neurology; Visit Provider Psychiatry & Neurology Neurology
DX: E71.314 Muscle carnitine palmitoyltransferase deficiency (principal)
CPT/HCPCS: 96365 ×2; J7050; A4216

== ENCOUNTER → 2018-08-26 09:53 | Outpatient (CLI) | payer MEDICARE, BC, SELFPAY ==
[2018-08-12 10:04] VITALS: BMI 33.1
[2018-08-26 10:08] VITALS: BMI 34.1
== END ==
PROVIDERS: Family Provider Nurse Practitioner; PCP Nurse Practitioner; Referring Provider Psychiatry & Neurology Neurology; Visit Provider Psychiatry & Neurology Neurology
DX: E71.40 Disorder of carnitine metabolism, unspecified (principal)
CPT/HCPCS: 96365 ×2; J7050; A4216

== ENCOUNTER → 2018-08-30 09:49 | Outpatient (CLI) | payer MEDICARE, BC, SELFPAY ==
[2018-08-26 10:08] VITALS: BMI 34.1
[2018-08-30 10:09] VITALS: BP 148/91; PULSE 61; RESP 16; TEMP 36.3; O2SAT 99; BMI 33.1
== END ==
PROVIDERS: Family Provider Nurse Practitioner; PCP Nurse Practitioner; Referring Provider Psychiatry & Neurology Neurology; Visit Provider Psychiatry & Neurology Neurology
DX: E71.314 Muscle carnitine palmitoyltransferase deficiency (principal)
CPT/HCPCS: 96365 ×2; 36591; J7050; A4216

== ENCOUNTER → 2018-09-02 09:48 | Outpatient (CLI) | payer MEDICARE, BC, SELFPAY ==
[2018-08-26 10:08] VITALS: BMI 34.1
[2018-08-30 10:09] VITALS: BMI 33.1
[2018-09-02 10:25] VITALS: BP 188/87; PULSE 56; RESP 16; TEMP 36.8; O2SAT 98; BMI 33.1
[2018-09-02 10:50] LABS: Absolute Lymphocyte Count 1.43 X10^3/ul (0.83-4.51); Absolute Neutrophil Count 2.4 X10^3/uL (2.0-7.7); Basophil# 0.02 X10^3/uL; Basophil% 0.4 % (0-1); Eosinophil# 0.08 X10^3/uL; Eosinophils% 1.8 % (0-5); Hematocrit 40.4 % (37-47); Hemoglobin 12.8 g/dl (12.0-15.0); Lymphocyte # 1.43 X10^3/ul (4.0); Lymphocyte % 31.8 % (19-41); Mean Corp Hgb Conc 31.7 g/gl (32-36); Mean Corpuscular Hgb 29.8 pg (27.0-32.0); Mean Platelet Vol. 9.6 fl (6.2-12.0); Monocyte# 0.52 X10^3/uL; Monocyte% 11.6 % (0-10); Neutrophil # 2.44 X10^3/uL (2.7-7.7); Neutrophil % 54.2 % (47-70); Platelet Count 272 K/mm3 (150-450); RBC Distribution Width CV 13.2 % (11.6-14.6); RBC Distribution Width SD 45.4 fl (35.1-43.9); White Blood Count 4.5 K/mm3 (4.4-11.0)
[2018-09-02 10:54] LABS: POSITIVE COUNT NO; POSITIVE DIFFERENTIAL NO; POSITIVE MORPHOLOGY NO
[2018-09-02 11:10] LABS: AST(SGOT) 17 U/L (15-37); Alanine Aminotransfer ALT/SGPT 17 U/L (13-56); Albumin, Serum 3.2 g/dL (3.2-5.0); Alkaline Phosphatase 59 U/L (45-117); Anion Gap 6 (5-15); BUN 16 mg/dL (7-18); BUN/Creat Ratio 24.1 RATIO (10-20); Calcium,Total 8.4 mg/dL (8.5-10.1); Chloride 110 mmol/L (98-107); Cholesterol 225 mg/dL (200); Creatinine, Serum 0.66 mg/dL (0.55-1.02); EST Glomerular Filtration Rate 93 mL/min (>60); Est Glom Filt Rate - Afr Amer 113 mL/min (>60); Globulin 3.3 g/dL (2.2-4.2); Glucose 117 mg/dL (74-106); High Density Lipoprotein 67 mg/dL; Potassium 3.7 mmol/L (3.5-5.1); Protein, Total 6.5 g/dL (6.4-8.2); Sodium Level 144 mmol/L (136-145); Triglycerides 109 mg/dL; Very Low Density Lipoprotein 22 mg/dL (5-40)
[2018-09-02 11:19] LABS: Vitamin D,25 Hydroxy 19.9 ng/mL (29.95-100.01)
== END ==
PROVIDERS: Family Provider Nurse Practitioner; PCP Nurse Practitioner; Referring Provider Psychiatry & Neurology Neurology; Visit Provider Psychiatry & Neurology Neurology
DX: E71.314 Muscle carnitine palmitoyltransferase deficiency (principal); E78.00 Pure hypercholesterolemia, unspecified; E55.9 Vitamin D deficiency, unspecified; I10 Essential (primary) hypertension
CPT/HCPCS: 96365 ×2; 36591; 80053; 80061; 82306; 84443; 85025; J7050; A4216

== ENCOUNTER → 2018-09-14 06:56 | Outpatient (CLI) | payer MEDICARE, BC, SELFPAY ==
[2018-08-30 10:09] VITALS: BMI 33.1
[2018-09-02 10:25] VITALS: BMI 33.1
--- NOTE | 2018-09-14 09:31 | STRESSREP ---
Stress Test Report Pharmacologic myocardial perfusion stress test. 68-year-old lady with a history of shortness of breath. Stress protocol resting EKG demonstrates normal sinus rhythm with a rate of 64 bpm normal intervals are noted resting blood pressure 150/88 mmHg. 0.4 mg of regadenoson was infused per usual protocol followed by rapid intravenous saline flush injection continuous EKG monitoring was performed. The maximum heart rate attained was 88 bpm which was 58% of maximum predicted heart rate the maximum workload was 1 metabolic equivalent. At rest there were no ST or T wave changes noted suggest abnormal flow reserve at peak infusion nonspecific ST-T wave changes were noted. The resting blood pressure 150/88 final blood pressure 152/94. Myocardial perfusion protocol. 11.1 mCi of technetium 99m sestamibi was injected at rest. 0.4 mg of regadenoson was infused per usual protocol peak infusion 33.6 mCi of technetium 99m sestamibi was injected stress images were obtained stress and rest images were reconstructed and compared in the short axis vertical long horizontal long axis. Gated images were also obtained per Perfusion SPECT analysis: Review of the stress images demonstrate normal uptake of tracer noted in all areas of the myocardium. The resting images similarly demonstrate normal uptake of tracer noted in all areas of myocardium. No areas of reversibility are noted suggest ischemia no previous infarct is noted. Gated SPECT analysis. The gated ejection fraction is over 90%. Conclusion: Normal pharmacologic myocardial perfusion stress test. Preserved ejection fraction.
[2018-09-14 09:40] VITALS: BP 150/79; PULSE 76; RESP 18; TEMP 36.4; O2SAT 98; BMI 33.1
== END ==
PROVIDERS: Family Provider Nurse Practitioner; PCP Nurse Practitioner; Referring Provider Nurse Practitioner; Visit Provider Nurse Practitioner
DX: E71.314 Muscle carnitine palmitoyltransferase deficiency (principal); R06.02 Shortness of breath
CPT/HCPCS: 96365 ×2; 78452; 93017; A9500; J7050; A4216; J2785

== ENCOUNTER → 2018-09-16 09:46 | Outpatient (CLI) | payer MEDICARE, BC, SELFPAY ==
[2018-09-02 10:25] VITALS: BMI 33.1
[2018-09-14 09:40] VITALS: BMI 33.1
[2018-09-16 09:52] VITALS: BP 151/78; PULSE 69; RESP 16; TEMP 36.6; O2SAT 98; BMI 33.1
== END ==
PROVIDERS: Family Provider Nurse Practitioner; PCP Nurse Practitioner; Visit Provider Psychiatry & Neurology Neurology
DX: E71.314 Muscle carnitine palmitoyltransferase deficiency (principal)
CPT/HCPCS: 96365 ×2; J7050; A4216

== ENCOUNTER → 2018-09-20 10:08 | Outpatient (CLI) | payer MEDICARE, BC, SELFPAY ==
[2018-09-16 09:52] VITALS: BMI 33.1
[2018-09-20 10:23] VITALS: BP 133/70; PULSE 68; RESP 16; TEMP 36.3; O2SAT 95; BMI 33.1
== END ==
PROVIDERS: Family Provider Nurse Practitioner; PCP Nurse Practitioner; Referring Provider Psychiatry & Neurology Neurology; Visit Provider Psychiatry & Neurology Neurology
DX: E71.314 Muscle carnitine palmitoyltransferase deficiency (principal)
CPT/HCPCS: 96365 ×2; J7050; A4216

== ENCOUNTER → 2018-09-23 09:51 | Outpatient (CLI) | payer MEDICARE, BC, SELFPAY ==
[2018-09-16 09:52] VITALS: BMI 33.1
[2018-09-20 10:23] VITALS: BMI 33.1
[2018-09-23 10:04] VITALS: BP 154/69; PULSE 67; RESP 16; TEMP 36.6; O2SAT 96; BMI 34.1
== END ==
PROVIDERS: Family Provider Nurse Practitioner; PCP Nurse Practitioner; Referring Provider Psychiatry & Neurology Neurology; Visit Provider Psychiatry & Neurology Neurology
DX: E71.314 Muscle carnitine palmitoyltransferase deficiency (principal)
CPT/HCPCS: 96365 ×2; J7050; A4216

== ENCOUNTER → 2018-09-30 | Outpatient (CLI) | payer MEDICARE, BC, SELFPAY ==
[2018-09-23 10:04] VITALS: BMI 34.1
[2018-09-30 10:15] VITALS: BP 133/77; PULSE 67; RESP 18; TEMP 36.5; O2SAT 96; BMI 34.1
== END | disposition home or self-care (01) ==
LOC: MEDOUTP 09:48
PROVIDERS: Family Provider Nurse Practitioner; PCP Nurse Practitioner; Referring Provider Psychiatry & Neurology Neurology; Visit Provider Psychiatry & Neurology Neurology
DX: E71.314 Muscle carnitine palmitoyltransferase deficiency (principal)
CPT/HCPCS: 96365 ×2; J7050; A4216

== ENCOUNTER → 2018-10-04 | Outpatient (CLI) | payer MEDICARE, BC, SELFPAY ==
[2018-09-30 10:15] VITALS: BMI 34.1
[2018-10-04 10:16] VITALS: BP 142/67; PULSE 63; RESP 16; TEMP 36.4; O2SAT 97; BMI 34.1
[2018-10-04 13:38] VITALS: BP 147/68; PULSE 88; RESP 18; TEMP 36.8
== END | disposition home or self-care (01) ==
LOC: MEDOUTP 09:56
PROVIDERS: Family Provider Nurse Practitioner; PCP Nurse Practitioner; Referring Provider Psychiatry & Neurology Neurology; Visit Provider Psychiatry & Neurology Neurology
DX: E71.314 Muscle carnitine palmitoyltransferase deficiency (principal)
CPT/HCPCS: 96365 ×2; J7050; A4216

== ENCOUNTER → 2018-10-07 | Outpatient (CLI) | payer MEDICARE, BC, SELFPAY ==
[2018-09-30 10:15] VITALS: BMI 34.1
[2018-10-04 10:16] VITALS: BMI 34.1
[2018-10-07 10:08] VITALS: BP 162/88; PULSE 73; RESP 16; TEMP 36.6; O2SAT 100; BMI 34.1
[2018-10-07 13:45] VITALS: BP 145/75; PULSE 61; RESP 18; TEMP 36.6; O2SAT 98
== END | disposition home or self-care (01) ==
LOC: MEDOUTP 10:01
PROVIDERS: Family Provider Nurse Practitioner; PCP Nurse Practitioner; Referring Provider Psychiatry & Neurology Neurology; Visit Provider Psychiatry & Neurology Neurology
DX: E71.314 Muscle carnitine palmitoyltransferase deficiency (principal)
CPT/HCPCS: 96365 ×2; J7050; A4216

== ENCOUNTER → 2018-10-12 | Outpatient (CLI) | payer MEDICARE, BC, SELFPAY ==
[2018-10-07 10:08] VITALS: BMI 34.1
[2018-10-12 10:21] VITALS: BP 133/67; PULSE 63; RESP 18; TEMP 36.8; O2SAT 93; BMI 34.1
[2018-10-12 14:07] VITALS: BP 139/84; PULSE 60; RESP 18; TEMP 36.4; O2SAT 96
== END | disposition home or self-care (01) ==
LOC: MEDOUTP 09:55
PROVIDERS: Family Provider Nurse Practitioner; PCP Nurse Practitioner; Referring Provider Psychiatry & Neurology Neurology; Visit Provider Psychiatry & Neurology Neurology
DX: E71.314 Muscle carnitine palmitoyltransferase deficiency (principal)
CPT/HCPCS: 96365 ×2; J7050; A4216

== ENCOUNTER → 2018-10-14 | Outpatient (CLI) | payer MEDICARE, BC, SELFPAY ==
[2018-10-07 10:08] VITALS: BMI 34.1
[2018-10-12 10:21] VITALS: BMI 34.1
[2018-10-14 10:16] VITALS: BP 142/86; PULSE 68; RESP 16; TEMP 36.1; O2SAT 99; BMI 34.1
== END | disposition home or self-care (01) ==
LOC: MEDOUTP 09:56
PROVIDERS: Family Provider Nurse Practitioner; PCP Nurse Practitioner; Referring Provider Psychiatry & Neurology Neurology; Visit Provider Psychiatry & Neurology Neurology
DX: E71.314 Muscle carnitine palmitoyltransferase deficiency (principal)
CPT/HCPCS: 96365 ×2; J7050; A4216

== ENCOUNTER → 2018-10-26 10:04 | Outpatient (CLI) | payer MEDICARE, BC, SELFPAY ==
[2018-10-14 10:16] VITALS: BMI 34.1
[2018-10-26 10:19] VITALS: BP 170/72; PULSE 55; RESP 16; TEMP 36.7; BMI 34.1
== END ==
PROVIDERS: Family Provider Nurse Practitioner; PCP Nurse Practitioner; Referring Provider Psychiatry & Neurology Neurology; Visit Provider Psychiatry & Neurology Neurology
DX: E71.40 Disorder of carnitine metabolism, unspecified (principal)
CPT/HCPCS: 96365 ×2; J7050; A4216

== ENCOUNTER → 2018-10-28 09:52 | Outpatient (CLI) | payer MEDICARE, BC, SELFPAY ==
[2018-10-14 10:16] VITALS: BMI 34.1
[2018-10-26 10:19] VITALS: BMI 34.1
[2018-10-28 10:07] VITALS: BP 138/85; PULSE 60; RESP 16; TEMP 36.2; O2SAT 100; BMI 34.1
== END ==
PROVIDERS: Family Provider Nurse Practitioner; PCP Nurse Practitioner; Referring Provider Psychiatry & Neurology Neurology; Visit Provider Psychiatry & Neurology Neurology
DX: E71.40 Disorder of carnitine metabolism, unspecified (principal)
CPT/HCPCS: 96365 ×2; J7050; A4216

== ENCOUNTER → 2018-11-01 09:59 | Outpatient (CLI) | payer MEDICARE, BC, SELFPAY ==
[2018-10-14 10:16] VITALS: BMI 34.1
[2018-10-28 10:07] VITALS: BMI 34.1
[2018-11-01 10:18] VITALS: BP 132/67; PULSE 78; RESP 16; TEMP 36.6; O2SAT 98; BMI 35.2
== END ==
PROVIDERS: Family Provider Nurse Practitioner; PCP Nurse Practitioner; Visit Provider Psychiatry & Neurology Neurology
DX: E71.40 Disorder of carnitine metabolism, unspecified (principal)
CPT/HCPCS: 96365; 96366 ×3; J7050; A4216

== ENCOUNTER → 2018-11-04 | Outpatient (CLI) | payer MEDICARE, BC, SELFPAY ==
[2018-10-14 10:16] VITALS: BMI 34.1
[2018-11-01 10:18] VITALS: BMI 35.2
[2018-11-04 10:22] VITALS: BP 124/73; PULSE 62; RESP 18; TEMP 36.4; O2SAT 93; BMI 35.2
== END | disposition home or self-care (01) ==
LOC: MEDOUTP 09:52
PROVIDERS: Family Provider Nurse Practitioner; PCP Nurse Practitioner; Referring Provider Psychiatry & Neurology Neurology; Visit Provider Psychiatry & Neurology Neurology
DX: E71.314 Muscle carnitine palmitoyltransferase deficiency (principal)
CPT/HCPCS: 96365 ×2; J7050; A4216

== ENCOUNTER → 2018-11-09 | Outpatient (CLI) | payer MEDICARE, BC, SELFPAY ==
[2018-10-14 10:16] VITALS: BMI 34.1
[2018-11-04 10:22] VITALS: BMI 35.2
[2018-11-09 09:56] VITALS: BP 140/68; PULSE 63; RESP 18; TEMP 36.2; O2SAT 95; BMI 35.2
== END | disposition home or self-care (01) ==
LOC: MEDOUTP 09:46
PROVIDERS: Family Provider Nurse Practitioner; PCP Nurse Practitioner; Referring Provider Psychiatry & Neurology Neurology; Visit Provider Psychiatry & Neurology Neurology
DX: E71.314 Muscle carnitine palmitoyltransferase deficiency (principal)
CPT/HCPCS: 96365 ×2; J7050; A4216

== ENCOUNTER → 2018-11-11 | Outpatient (CLI) | payer MEDICARE, BC, SELFPAY ==
[2018-10-14 10:16] VITALS: BMI 34.1
[2018-11-09 09:56] VITALS: BMI 35.2
[2018-11-11 10:09] VITALS: BP 140/64; PULSE 64; RESP 16; TEMP 36.7; O2SAT 96; BMI 34.1
== END | disposition home or self-care (01) ==
LOC: MEDOUTP 09:51
PROVIDERS: Family Provider Nurse Practitioner; PCP Nurse Practitioner; Referring Provider Psychiatry & Neurology Neurology; Visit Provider Psychiatry & Neurology Neurology
DX: E71.314 Muscle carnitine palmitoyltransferase deficiency (principal)
CPT/HCPCS: 96365 ×2; J7050; A4216

== ENCOUNTER → 2018-11-15 | Outpatient (CLI) | payer MEDICARE, BC, SELFPAY ==
[2018-10-14 10:16] VITALS: BMI 34.1
[2018-11-11 10:09] VITALS: BMI 34.1
[2018-11-15 10:04] VITALS: BP 140/77; PULSE 60; RESP 16; TEMP 36.3; O2SAT 96; BMI 34.1
[2018-11-15 13:38] VITALS: BP 125/75; PULSE 63; RESP 16; O2SAT 99
== END | disposition home or self-care (01) ==
LOC: MEDOUTP 09:50
PROVIDERS: Family Provider Nurse Practitioner; PCP Nurse Practitioner; Referring Provider Psychiatry & Neurology Neurology; Visit Provider Psychiatry & Neurology Neurology
DX: E71.314 Muscle carnitine palmitoyltransferase deficiency (principal)
CPT/HCPCS: 96365 ×2; J7050; A4216

== ENCOUNTER → 2018-11-25 | Outpatient (CLI) | payer MEDICARE, BC, SELFPAY ==
[2018-11-04 10:22] VITALS: BMI 35.2
[2018-11-15 10:04] VITALS: BMI 34.1
[2018-11-25 14:00] VITALS: BP 133/72; PULSE 60; RESP 16; TEMP 36.3; O2SAT 96; BMI 34.1
== END | disposition home or self-care (01) ==
LOC: MEDOUTP 13:44
PROVIDERS: Family Provider Nurse Practitioner; PCP Nurse Practitioner; Referring Provider Psychiatry & Neurology Neurology; Visit Provider Psychiatry & Neurology Neurology
DX: E71.314 Muscle carnitine palmitoyltransferase deficiency (principal)
CPT/HCPCS: 96365; J7050

== ENCOUNTER → 2018-11-29 | Outpatient (CLI) | payer MEDICARE, BC, SELFPAY ==
[2018-11-15 10:04] VITALS: BMI 34.1
[2018-11-25 14:00] VITALS: BMI 34.1
[2018-11-29 10:08] VITALS: BP 135/59; PULSE 65; RESP 16; TEMP 36.9; O2SAT 98; BMI 34.1
[2018-11-29 13:49] VITALS: BP 135/65; PULSE 60; RESP 16; TEMP 36.2; O2SAT 98; BMI 34.1
== END | disposition home or self-care (01) ==
LOC: MEDOUTP 09:48
PROVIDERS: Family Provider Nurse Practitioner; PCP Nurse Practitioner; Referring Provider Psychiatry & Neurology Neurology; Visit Provider Psychiatry & Neurology Neurology
DX: E71.314 Muscle carnitine palmitoyltransferase deficiency (principal)
CPT/HCPCS: 96365 ×2; J7040; J7050; A4216

== ENCOUNTER → 2018-12-01 | Outpatient (CLI) | payer MEDICARE, BC, SELFPAY ==
[2018-11-15 10:04] VITALS: BMI 34.1
[2018-11-29 13:49] VITALS: BMI 34.1
[2018-12-01 10:14] VITALS: BP 134/75; PULSE 58; RESP 18; TEMP 36.8; O2SAT 95; BMI 34.1
[2018-12-01 13:43] VITALS: BP 131/64; PULSE 63; RESP 16; O2SAT 95
== END | disposition home or self-care (01) ==
LOC: MEDOUTP 10:02
PROVIDERS: Family Provider Nurse Practitioner; PCP Nurse Practitioner; Referring Provider Psychiatry & Neurology Neurology; Visit Provider Psychiatry & Neurology Neurology
DX: E71.314 Muscle carnitine palmitoyltransferase deficiency (principal)
CPT/HCPCS: 96361; 96365 ×2; J7040; J7050; A4216

== ENCOUNTER → 2018-12-06 | Outpatient (CLI) | payer MEDICARE, BC, SELFPAY ==
[2018-11-15 10:04] VITALS: BMI 34.1
[2018-12-01 10:14] VITALS: BMI 34.1
[2018-12-06 10:25] VITALS: BP 149/75; PULSE 94; RESP 16; TEMP 36.5; O2SAT 97; BMI 34.1
[2018-12-06 13:52] VITALS: BP 152/80
== END | disposition home or self-care (01) ==
LOC: MEDOUTP 09:58
PROVIDERS: Family Provider Nurse Practitioner; PCP Nurse Practitioner; Referring Provider Psychiatry & Neurology Neurology; Visit Provider Psychiatry & Neurology Neurology
DX: E71.314 Muscle carnitine palmitoyltransferase deficiency (principal)
CPT/HCPCS: 96365 ×2; J7040; J7050

== ENCOUNTER → 2018-12-09 | Outpatient (CLI) | payer MEDICARE, BC, SELFPAY ==
[2018-11-15 10:04] VITALS: BMI 34.1
[2018-12-06 10:25] VITALS: BMI 34.1
[2018-12-09 09:58] VITALS: BP 157/67; PULSE 64; RESP 18; TEMP 36.9; O2SAT 96; BMI 34.1
[2018-12-09 13:53] VITALS: BP 134/70; PULSE 62; RESP 16; O2SAT 96
== END | disposition home or self-care (01) ==
LOC: MEDOUTP 09:47
PROVIDERS: Family Provider Nurse Practitioner; PCP Nurse Practitioner; Referring Provider Psychiatry & Neurology Neurology; Visit Provider Psychiatry & Neurology Neurology
DX: E71.314 Muscle carnitine palmitoyltransferase deficiency (principal)
CPT/HCPCS: 96361; 96365 ×2; J7040; J7050; A4216

== ENCOUNTER → 2018-12-13 | Outpatient (CLI) | payer MEDICARE, BC, SELFPAY ==
[2018-11-15 10:04] VITALS: BMI 34.1
[2018-12-09 09:58] VITALS: BMI 34.1
[2018-12-13 14:46] VITALS: BP 157/91; PULSE 56; RESP 16; TEMP 36.8; O2SAT 98; BMI 34.1
== END | disposition home or self-care (01) ==
LOC: MEDOUTP 13:40
PROVIDERS: Family Provider Nurse Practitioner; PCP Nurse Practitioner; Referring Provider Psychiatry & Neurology Neurology; Visit Provider Psychiatry & Neurology Neurology
DX: E71.314 Muscle carnitine palmitoyltransferase deficiency (principal)
CPT/HCPCS: 96365; J7040; J7050; A4216

== ENCOUNTER → 2018-12-16 | Outpatient (CLI) | payer MEDICARE, BC, SELFPAY ==
[2018-11-15 10:04] VITALS: BMI 34.1
[2018-12-13 14:46] VITALS: BMI 34.1
[2018-12-16 10:04] VITALS: BP 136/64; PULSE 66; RESP 16; TEMP 36.4; O2SAT 96; BMI 34.1
== END | disposition home or self-care (01) ==
LOC: MEDOUTP 09:53
PROVIDERS: Family Provider Nurse Practitioner; PCP Nurse Practitioner; Referring Provider Psychiatry & Neurology Neurology; Visit Provider Psychiatry & Neurology Neurology
DX: E71.314 Muscle carnitine palmitoyltransferase deficiency (principal)
CPT/HCPCS: 96365; J7040; J7050; A4216

== ENCOUNTER → 2018-12-23 09:40 | Outpatient (CLI) | payer MEDICARE, BC, SELFPAY ==
[2018-12-01 10:14] VITALS: BMI 34.1
[2018-12-16 10:04] VITALS: BMI 34.1
[2018-12-23 09:47] VITALS: BP 131/66; PULSE 66; RESP 16; TEMP 36.3; O2SAT 95; BMI 34.1
== END ==
PROVIDERS: Family Provider Nurse Practitioner; PCP Nurse Practitioner; Referring Provider Psychiatry & Neurology Neurology; Visit Provider Psychiatry & Neurology Neurology
DX: E71.40 Disorder of carnitine metabolism, unspecified (principal)
CPT/HCPCS: 96365 ×2; J7040; J7050; A4216

== ENCOUNTER → 2018-12-27 | Outpatient (CLI) | payer MEDICARE, BC, SELFPAY ==
[2018-12-01 10:14] VITALS: BMI 34.1
[2018-12-23 09:47] VITALS: BMI 34.1
[2018-12-27 10:04] VITALS: BP 143/71; PULSE 58; RESP 16; TEMP 36.4; O2SAT 97; BMI 34.1
[2018-12-27 13:51] VITALS: BP 152/96; PULSE 64; RESP 18
== END | disposition home or self-care (01) ==
LOC: MEDOUTP 09:44
PROVIDERS: Family Provider Nurse Practitioner; PCP Nurse Practitioner; Referring Provider Psychiatry & Neurology Neurology; Visit Provider Psychiatry & Neurology Neurology
DX: E71.314 Muscle carnitine palmitoyltransferase deficiency (principal)
CPT/HCPCS: 96365 ×2; 96366; J7050; A4216

== ENCOUNTER → 2018-12-30 | Outpatient (CLI) | payer MEDICARE, BC, SELFPAY ==
[2018-12-01 10:14] VITALS: BMI 34.1
[2018-12-27 10:04] VITALS: BMI 34.1
[2018-12-30 09:56] VITALS: BP 142/80; PULSE 60; RESP 16; TEMP 36.3; O2SAT 98; BMI 34.1
[2018-12-30 13:57] VITALS: BP 126/66; PULSE 63; RESP 16; TEMP 36.4; O2SAT 100
== END | disposition home or self-care (01) ==
LOC: MEDOUTP 09:47
PROVIDERS: Family Provider Nurse Practitioner; PCP Nurse Practitioner; Referring Provider Psychiatry & Neurology Neurology; Visit Provider Psychiatry & Neurology Neurology
DX: E71.314 Muscle carnitine palmitoyltransferase deficiency (principal)
CPT/HCPCS: 96365 ×2; J7050; A4216

== ENCOUNTER → 2019-01-03 | Outpatient (CLI) | payer MEDICARE, BC, SELFPAY ==
[2018-12-01 10:14] VITALS: BMI 34.1
[2018-12-30 09:56] VITALS: BMI 34.1
[2019-01-03 09:58] VITALS: BP 141/70; PULSE 62; RESP 18; TEMP 36.2; O2SAT 96; BMI 34.1
[2019-01-03 13:52] VITALS: BP 159/78; PULSE 64; RESP 16; O2SAT 94
== END | disposition home or self-care (01) ==
LOC: MEDOUTP 09:45
PROVIDERS: Family Provider Nurse Practitioner; PCP Nurse Practitioner; Referring Provider Psychiatry & Neurology Neurology; Visit Provider Psychiatry & Neurology Neurology
DX: E71.314 Muscle carnitine palmitoyltransferase deficiency (principal)
CPT/HCPCS: 96365 ×2; J7050; A4216

== ENCOUNTER → 2019-01-06 13:34 | Outpatient (CLI) | payer MEDICARE, BC, SELFPAY ==
[2018-12-01 10:14] VITALS: BMI 34.1
[2019-01-03 09:58] VITALS: BMI 34.1
[2019-01-06 13:45] VITALS: BP 133/69; PULSE 67; RESP 16; TEMP 36.6; O2SAT 93; BMI 34.1
== END ==
PROVIDERS: Family Provider Nurse Practitioner; PCP Nurse Practitioner; Referring Provider Psychiatry & Neurology Neurology; Visit Provider Psychiatry & Neurology Neurology
DX: E71.40 Disorder of carnitine metabolism, unspecified (principal)
CPT/HCPCS: 96365; J7050; A4216

== ENCOUNTER → 2019-01-11 | Outpatient (CLI) | payer MEDICARE, BC, SELFPAY ==
[2018-12-01 10:14] VITALS: BMI 34.1
[2019-01-06 13:45] VITALS: BMI 34.1
[2019-01-11 10:12] VITALS: BP 144/63; PULSE 61; RESP 16; TEMP 36.2; O2SAT 97; BMI 34.1
[2019-01-11 14:00] VITALS: BP 125/62; PULSE 62; RESP 18; O2SAT 92
== END | disposition home or self-care (01) ==
LOC: MEDOUTP 09:53
PROVIDERS: Family Provider Nurse Practitioner; PCP Nurse Practitioner; Referring Provider Psychiatry & Neurology Neurology; Visit Provider Psychiatry & Neurology Neurology
DX: E71.314 Muscle carnitine palmitoyltransferase deficiency (principal)
CPT/HCPCS: 96365 ×2; J7040; J7050; A4216

== ENCOUNTER → 2019-01-13 | Outpatient (CLI) | payer MEDICARE, BC, SELFPAY ==
[2018-12-01 10:14] VITALS: BMI 34.1
[2019-01-11 10:12] VITALS: BMI 34.1
[2019-01-13 09:56] VITALS: BP 181/75; PULSE 63; RESP 16; TEMP 36.2; O2SAT 100; BMI 34.1
== END | disposition home or self-care (01) ==
LOC: MEDOUTP 09:51
PROVIDERS: Family Provider Nurse Practitioner; PCP Nurse Practitioner; Referring Provider Psychiatry & Neurology Neurology; Visit Provider Psychiatry & Neurology Neurology
DX: E71.314 Muscle carnitine palmitoyltransferase deficiency (principal)
CPT/HCPCS: 96365 ×2; J7050; A4216

== ENCOUNTER → 2019-01-17 | Outpatient (CLI) | payer MEDICARE, BC, SELFPAY ==
[2018-12-01 10:14] VITALS: BMI 34.1
[2019-01-13 09:56] VITALS: BMI 34.1
[2019-01-17 14:00] VITALS: BP 143/76; PULSE 62; RESP 16; TEMP 36.6; O2SAT 97; BMI 35.2
== END | disposition home or self-care (01) ==
LOC: MEDOUTP 13:46
PROVIDERS: Family Provider Nurse Practitioner; PCP Nurse Practitioner; Referring Provider Psychiatry & Neurology Neurology; Visit Provider Psychiatry & Neurology Neurology
DX: E71.314 Muscle carnitine palmitoyltransferase deficiency (principal)
CPT/HCPCS: 96365; J7050; A4216

== ENCOUNTER → 2019-01-20 09:38 | Outpatient (CLI) | payer MEDICARE, BC, SELFPAY ==
[2018-12-01 10:14] VITALS: BMI 34.1
[2019-01-17 14:00] VITALS: BMI 35.2
[2019-01-20 09:57] VITALS: BP 155/71; PULSE 57; RESP 16; TEMP 36.4; O2SAT 96; BMI 34.1
[2019-01-20 14:04] VITALS: BP 155/80; PULSE 67; RESP 16; TEMP 36.8; O2SAT 94
== END ==
PROVIDERS: Family Provider Nurse Practitioner; PCP Nurse Practitioner; Referring Provider Psychiatry & Neurology Neurology; Visit Provider Psychiatry & Neurology Neurology
DX: E71.40 Disorder of carnitine metabolism, unspecified (principal)
CPT/HCPCS: 96365 ×2; J7040; J7050; A4216

== ENCOUNTER → 2019-01-26 09:51 | Outpatient (CLI) | payer MEDICARE, BC, SELFPAY ==
[2018-12-27 10:04] VITALS: BMI 34.1
[2019-01-20 09:57] VITALS: BMI 34.1
[2019-01-26 10:11] VITALS: BP 151/71; PULSE 52; RESP 16; TEMP 36.4; O2SAT 94; BMI 34.1
== END ==
PROVIDERS: Family Provider Nurse Practitioner; PCP Nurse Practitioner; Referring Provider Psychiatry & Neurology Neurology; Visit Provider Psychiatry & Neurology Neurology
DX: E71.40 Disorder of carnitine metabolism, unspecified (principal)
CPT/HCPCS: 96365 ×2; J7040; J7050; A4216

== ENCOUNTER → 2019-01-27 09:44 | Outpatient (CLI) | payer MEDICARE, BC, SELFPAY ==
[2018-12-27 10:04] VITALS: BMI 34.1
[2019-01-26 10:11] VITALS: BMI 34.1
[2019-01-27 09:57] VITALS: BP 172/84; PULSE 60; RESP 16; O2SAT 95; BMI 34.1
== END ==
PROVIDERS: Family Provider Nurse Practitioner; PCP Nurse Practitioner; Referring Provider Psychiatry & Neurology Neurology; Visit Provider Psychiatry & Neurology Neurology
DX: E71.40 Disorder of carnitine metabolism, unspecified (principal)
CPT/HCPCS: 96365 ×2; J7040; J7050; A4216

== ENCOUNTER → 2019-02-07 | Outpatient (CLI) | payer MEDICARE, BC, SELFPAY ==
[2018-12-27 10:04] VITALS: BMI 34.1
[2019-01-27 09:57] VITALS: BMI 34.1
[2019-02-07 10:17] VITALS: BP 176/68; PULSE 64; RESP 16; TEMP 36.7; O2SAT 98; BMI 34.1
== END | disposition home or self-care (01) ==
LOC: MEDOUTP 09:56
PROVIDERS: Family Provider Nurse Practitioner; PCP Nurse Practitioner; Referring Provider Psychiatry & Neurology Neurology; Visit Provider Psychiatry & Neurology Neurology
DX: E71.314 Muscle carnitine palmitoyltransferase deficiency (principal)
CPT/HCPCS: 96365 ×2; J7040; J7050; A4216

== ENCOUNTER → 2019-02-10 09:57 | Outpatient (CLI) | payer MEDICARE, BC, SELFPAY ==
[2018-12-27 10:04] VITALS: BMI 34.1
[2019-02-07 10:17] VITALS: BMI 34.1
[2019-02-10 10:05] VITALS: BP 161/73; PULSE 62; RESP 16; TEMP 36.7; O2SAT 100; BMI 34.1
[2019-02-10 14:10] VITALS: BP 137/66; PULSE 61; RESP 16; TEMP 36.2; O2SAT 97
== END ==
PROVIDERS: Family Provider Nurse Practitioner; PCP Nurse Practitioner; Referring Provider Psychiatry & Neurology Neurology; Visit Provider Psychiatry & Neurology Neurology
DX: E71.314 Muscle carnitine palmitoyltransferase deficiency (principal)
CPT/HCPCS: 96365 ×2; J7040; J7050; A4216

== ENCOUNTER → 2019-02-17 | Outpatient (CLI) | payer MEDICARE, BC, SELFPAY ==
[2018-12-27 10:04] VITALS: BMI 34.1
[2019-02-10 10:05] VITALS: BMI 34.1
[2019-02-17 10:13] VITALS: BP 141/73; PULSE 64; RESP 16; TEMP 36.3; O2SAT 98; BMI 34.1
== END | disposition home or self-care (01) ==
LOC: MEDOUTP 10:07
PROVIDERS: Family Provider Nurse Practitioner; PCP Nurse Practitioner; Referring Provider Psychiatry & Neurology Neurology; Visit Provider Psychiatry & Neurology Neurology
DX: E71.314 Muscle carnitine palmitoyltransferase deficiency (principal)
CPT/HCPCS: 96365 ×2; J7040; J7050; A4216

== ENCOUNTER → 2019-02-22 | Outpatient (CLI) | payer MEDICARE, BC, SELFPAY ==
[2019-01-27 09:57] VITALS: BMI 34.1
[2019-02-17 10:13] VITALS: BMI 34.1
[2019-02-22 10:13] VITALS: BP 140/74; PULSE 54; RESP 16; TEMP 36.3; O2SAT 96; BMI 34.1
== END | disposition home or self-care (01) ==
LOC: MEDOUTP 09:52
PROVIDERS: Family Provider Nurse Practitioner; PCP Nurse Practitioner; Referring Provider Psychiatry & Neurology Neurology; Visit Provider Psychiatry & Neurology Neurology
DX: E71.314 Muscle carnitine palmitoyltransferase deficiency (principal)
CPT/HCPCS: 96365 ×2; J7040; J7050; A4216

== ENCOUNTER → 2019-02-24 | Outpatient (CLI) | payer MEDICARE, BC, SELFPAY ==
[2019-01-27 09:57] VITALS: BMI 34.1
[2019-02-22 10:13] VITALS: BMI 34.1
[2019-02-24 10:13] VITALS: BP 144/68; PULSE 57; RESP 16; TEMP 36.7; O2SAT 96; BMI 34.1
== END | disposition home or self-care (01) ==
LOC: MEDOUTP 09:45
PROVIDERS: Family Provider Nurse Practitioner; PCP Nurse Practitioner; Referring Provider Psychiatry & Neurology Neurology; Visit Provider Psychiatry & Neurology Neurology
DX: E71.314 Muscle carnitine palmitoyltransferase deficiency (principal)
CPT/HCPCS: 96365 ×2; J7040; J7050; A4216

== ENCOUNTER → 2019-02-28 | Outpatient (CLI) | payer MEDICARE, BC, SELFPAY ==
[2019-01-27 09:57] VITALS: BMI 34.1
[2019-02-24 10:13] VITALS: BMI 34.1
[2019-02-28 13:56] VITALS: BP 133/72; PULSE 62; RESP 16; TEMP 36.4; O2SAT 96; BMI 34.1
== END | disposition home or self-care (01) ==
LOC: MEDOUTP 13:41
PROVIDERS: Family Provider Nurse Practitioner; PCP Nurse Practitioner; Referring Provider Psychiatry & Neurology Neurology; Visit Provider Psychiatry & Neurology Neurology
DX: E71.314 Muscle carnitine palmitoyltransferase deficiency (principal)
CPT/HCPCS: 96361; 96365; J7040; J7050; A4216

== ENCOUNTER → 2019-03-03 | Outpatient (CLI) | payer MEDICARE, BC, SELFPAY ==
[2019-01-27 09:57] VITALS: BMI 34.1
[2019-02-28 13:56] VITALS: BMI 34.1
[2019-03-03 10:00] VITALS: BP 165/67; PULSE 63; RESP 16; TEMP 36.9; O2SAT 98; BMI 34.1
== END | disposition home or self-care (01) ==
LOC: MEDOUTP 09:44
PROVIDERS: Family Provider Nurse Practitioner; PCP Nurse Practitioner; Referring Provider Psychiatry & Neurology Neurology; Visit Provider Psychiatry & Neurology Neurology
DX: E71.314 Muscle carnitine palmitoyltransferase deficiency (principal)
CPT/HCPCS: 96365 ×2; J7040; J7050; A4216

== ENCOUNTER → 2019-03-07 | Outpatient (CLI) | payer MEDICARE, BC, SELFPAY ==
[2019-01-27 09:57] VITALS: BMI 34.1
[2019-03-03 10:00] VITALS: BMI 34.1
[2019-03-07 09:58] VITALS: BP 141/81; PULSE 68; RESP 16; TEMP 36.4; O2SAT 97; BMI 34.1
== END | disposition home or self-care (01) ==
LOC: MEDOUTP 09:49
PROVIDERS: Family Provider Nurse Practitioner; PCP Nurse Practitioner; Referring Provider Psychiatry & Neurology Neurology; Visit Provider Psychiatry & Neurology Neurology
DX: E71.314 Muscle carnitine palmitoyltransferase deficiency (principal)
CPT/HCPCS: 96365 ×2; J7040; J7050; A4216

== ENCOUNTER → 2019-03-10 | Outpatient (CLI) | payer MEDICARE, BC, SELFPAY ==
[2019-01-27 09:57] VITALS: BMI 34.1
[2019-03-07 09:58] VITALS: BMI 34.1
[2019-03-10 10:03] VITALS: BP 150/69; PULSE 65; RESP 16; TEMP 36.8; O2SAT 94; BMI 34.1
[2019-03-10 14:56] VITALS: BP 152/78; PULSE 66; RESP 16; O2SAT 98
== END | disposition home or self-care (01) ==
LOC: MEDOUTP 09:51
PROVIDERS: Family Provider Nurse Practitioner; PCP Nurse Practitioner; Referring Provider Psychiatry & Neurology Neurology; Visit Provider Psychiatry & Neurology Neurology
DX: E71.314 Muscle carnitine palmitoyltransferase deficiency (principal)
CPT/HCPCS: 96365 ×2; J7040; J7050; A4216

== ENCOUNTER → 2019-03-14 | Outpatient (CLI) | payer MEDICARE, BC, SELFPAY ==
[2019-01-27 09:57] VITALS: BMI 34.1
[2019-03-10 10:03] VITALS: BMI 34.1
[2019-03-14 10:53] VITALS: BP 111/69; PULSE 63; RESP 16; TEMP 36.6; O2SAT 95; BMI 34.1
== END | disposition home or self-care (01) ==
LOC: MEDOUTP 10:43
PROVIDERS: Family Provider Nurse Practitioner; PCP Nurse Practitioner; Referring Provider Psychiatry & Neurology Neurology; Visit Provider Psychiatry & Neurology Neurology
DX: E71.314 Muscle carnitine palmitoyltransferase deficiency (principal)
CPT/HCPCS: 96365 ×2; J7040; J7050; A4216

== ENCOUNTER → 2019-03-24 | Outpatient (CLI) | payer MEDICARE, BC, SELFPAY ==
[2019-01-27 09:57] VITALS: BMI 34.1
[2019-03-14 10:53] VITALS: BMI 34.1
[2019-03-24 11:10] VITALS: BP 138/81; PULSE 66; RESP 16; TEMP 36.8; O2SAT 97; BMI 34.1
[2019-03-24 14:47] VITALS: BP 135/70; PULSE 67; RESP 18; TEMP 36.6; O2SAT 96
== END | disposition home or self-care (01) ==
LOC: MEDOUTP 10:57
PROVIDERS: Family Provider Nurse Practitioner; PCP Nurse Practitioner; Referring Provider Psychiatry & Neurology Neurology; Visit Provider Psychiatry & Neurology Neurology
DX: E71.314 Muscle carnitine palmitoyltransferase deficiency (principal)
CPT/HCPCS: 96365 ×2; J7040; J7050; A4216

== ENCOUNTER → 2019-03-27 | Outpatient (CLI) | payer MEDICARE, BC, SELFPAY ==
[2019-01-27 09:57] VITALS: BMI 34.1
[2019-03-24 11:10] VITALS: BMI 34.1
[2019-03-27 10:54] VITALS: BP 151/68; PULSE 67; RESP 18; TEMP 36.6; O2SAT 99; BMI 34.1
== END | disposition home or self-care (01) ==
LOC: MEDOUTP 10:44
PROVIDERS: Family Provider Nurse Practitioner; PCP Nurse Practitioner; Referring Provider Psychiatry & Neurology Neurology; Visit Provider Psychiatry & Neurology Neurology
DX: E71.314 Muscle carnitine palmitoyltransferase deficiency (principal)
CPT/HCPCS: 96365 ×2; J7040; J7050; A4216

== ENCOUNTER → 2019-03-31 | Outpatient (CLI) | payer MEDICARE, BC, SELFPAY ==
[2019-01-27 09:57] VITALS: BMI 34.1
[2019-03-27 10:54] VITALS: BMI 34.1
[2019-03-31 10:56] VITALS: BP 155/66; PULSE 62; RESP 18; TEMP 36.6; O2SAT 96; BMI 34.1
[2019-03-31 14:45] VITALS: BP 142/73; PULSE 73; RESP 18; TEMP 36.8; O2SAT 97
== END | disposition home or self-care (01) ==
LOC: MEDOUTP 10:49
PROVIDERS: Family Provider Nurse Practitioner; PCP Nurse Practitioner; Referring Provider Psychiatry & Neurology Neurology; Visit Provider Psychiatry & Neurology Neurology
DX: E71.314 Muscle carnitine palmitoyltransferase deficiency (principal)
CPT/HCPCS: 96361; 96365 ×2; J7040; J7050; A4216

== ENCOUNTER → 2019-04-04 | Outpatient (CLI) | payer MEDICARE, BC, SELFPAY ==
[2019-01-27 09:57] VITALS: BMI 34.1
[2019-03-31 10:56] VITALS: BMI 34.1
[2019-04-04 10:53] VITALS: BP 160/69; PULSE 68; RESP 16; TEMP 36; O2SAT 97; BMI 34.3
== END | disposition home or self-care (01) ==
LOC: MEDOUTP 10:48
PROVIDERS: Family Provider Nurse Practitioner; PCP Nurse Practitioner; Referring Provider Psychiatry & Neurology Neurology; Visit Provider Psychiatry & Neurology Neurology
DX: E71.314 Muscle carnitine palmitoyltransferase deficiency (principal)
CPT/HCPCS: 96365 ×2; J7040; J7050; A4216

== ENCOUNTER → 2019-04-11 | Outpatient (CLI) | payer MEDICARE, BC, SELFPAY ==
[2019-01-27 09:57] VITALS: BMI 34.1
[2019-04-04 10:53] VITALS: BMI 34.3
[2019-04-11 10:55] VITALS: BP 148/69; PULSE 70; RESP 18; TEMP 36.8; O2SAT 96; BMI 34.3
[2019-04-11 15:02] VITALS: BP 132/77; PULSE 60; RESP 18; TEMP 36.3; O2SAT 92
== END | disposition home or self-care (01) ==
LOC: MEDOUTP 10:44
PROVIDERS: Family Provider Nurse Practitioner; PCP Nurse Practitioner; Referring Provider Psychiatry & Neurology Neurology; Visit Provider Psychiatry & Neurology Neurology
DX: E71.314 Muscle carnitine palmitoyltransferase deficiency (principal)
CPT/HCPCS: 96361; 96365 ×2; J7040; J7050; A4216

== ENCOUNTER → 2019-04-14 | Outpatient (CLI) | payer MEDICARE, BC, SELFPAY ==
[2019-01-27 09:57] VITALS: BMI 34.1
[2019-04-11 10:55] VITALS: BMI 34.3
[2019-04-14 11:14] VITALS: BP 129/62; PULSE 68; RESP 18; TEMP 36.2; O2SAT 96; BMI 34.3
[2019-04-14 14:39] VITALS: BP 162/84; PULSE 67; RESP 16; TEMP 36.2; O2SAT 97
== END | disposition home or self-care (01) ==
LOC: MEDOUTP 10:59
PROVIDERS: Family Provider Nurse Practitioner; PCP Nurse Practitioner; Referring Provider Psychiatry & Neurology Neurology; Visit Provider Psychiatry & Neurology Neurology
DX: E71.314 Muscle carnitine palmitoyltransferase deficiency (principal)
CPT/HCPCS: 96365 ×2; J7040; J7050; A4216

== ENCOUNTER → 2019-04-18 | Outpatient (CLI) | payer MEDICARE, BC, SELFPAY ==
[2019-01-27 09:57] VITALS: BMI 34.1
[2019-04-14 11:14] VITALS: BMI 34.3
[2019-04-18 14:57] VITALS: BP 151/86; PULSE 73; RESP 16; TEMP 36.5; O2SAT 96; BMI 36.3
== END | disposition home or self-care (01) ==
LOC: MEDOUTP 14:36
PROVIDERS: Family Provider Nurse Practitioner; PCP Nurse Practitioner; Referring Provider Psychiatry & Neurology Neurology; Visit Provider Psychiatry & Neurology Neurology
DX: E71.314 Muscle carnitine palmitoyltransferase deficiency (principal)
CPT/HCPCS: 96365; J7040; J7050; A4216

== ENCOUNTER → 2019-04-25 | Outpatient (CLI) | payer MEDICARE, BC, SELFPAY ==
[2019-03-31 10:56] VITALS: BMI 34.1
[2019-04-18 14:57] VITALS: BMI 36.3
[2019-04-25 11:09] VITALS: BP 162/76; PULSE 77; RESP 16; TEMP 36.9; O2SAT 100; BMI 34.1
[2019-04-25 14:48] VITALS: BP 148/83; PULSE 62; RESP 18; O2SAT 92
== END | disposition home or self-care (01) ==
LOC: MEDOUTP 10:48
PROVIDERS: Family Provider Nurse Practitioner; PCP Nurse Practitioner; Referring Provider Psychiatry & Neurology Neurology; Visit Provider Psychiatry & Neurology Neurology
DX: E71.314 Muscle carnitine palmitoyltransferase deficiency (principal)
CPT/HCPCS: 96361; 96365 ×2; J7040; J7050; A4216

== ENCOUNTER → 2019-04-28 | Outpatient (CLI) | payer MEDICARE, BC, SELFPAY ==
[2019-03-14 10:53] VITALS: BMI 34.1
[2019-04-25 11:09] VITALS: BMI 34.1
[2019-04-28 11:07] VITALS: BP 146/70; PULSE 67; RESP 16; TEMP 36.2; O2SAT 97; BMI 34.1
[2019-04-28 14:50] VITALS: BP 155/77; PULSE 67; RESP 16; O2SAT 95
== END | disposition home or self-care (01) ==
LOC: MEDOUTP 10:50
PROVIDERS: Family Provider Nurse Practitioner; PCP Nurse Practitioner; Referring Provider Psychiatry & Neurology Neurology; Visit Provider Psychiatry & Neurology Neurology
DX: E71.314 Muscle carnitine palmitoyltransferase deficiency (principal)
CPT/HCPCS: 96365 ×2; J7050; A4216

== ENCOUNTER → 2019-05-02 | Outpatient (CLI) | payer MEDICARE, BC, SELFPAY ==
[2019-03-31 10:56] VITALS: BMI 34.1
[2019-04-28 11:07] VITALS: BMI 34.1
[2019-05-02 11:08] VITALS: BP 145/68; PULSE 66; RESP 18; TEMP 36.8; BMI 34.1
== END | disposition home or self-care (01) ==
LOC: MEDOUTP 10:52
PROVIDERS: Family Provider Nurse Practitioner; PCP Nurse Practitioner; Referring Provider Psychiatry & Neurology Neurology; Visit Provider Psychiatry & Neurology Neurology
DX: E71.314 Muscle carnitine palmitoyltransferase deficiency (principal)
CPT/HCPCS: 96365 ×2; J7040; J7050; A4216

== ENCOUNTER → 2019-05-05 | Outpatient (CLI) | payer MEDICARE, BC, SELFPAY ==
[2019-03-14 10:53] VITALS: BMI 34.1
[2019-05-02 11:08] VITALS: BMI 34.1
[2019-05-05 11:08] VITALS: BP 140/84; PULSE 68; RESP 18; TEMP 36.1; O2SAT 98; BMI 34.1
[2019-05-05 14:36] VITALS: BP 145/81; PULSE 68; RESP 18; TEMP 36.6; O2SAT 97
== END | disposition home or self-care (01) ==
LOC: MEDOUTP 10:51
PROVIDERS: Family Provider Nurse Practitioner; PCP Nurse Practitioner; Referring Provider Psychiatry & Neurology Neurology; Visit Provider Psychiatry & Neurology Neurology
DX: E71.314 Muscle carnitine palmitoyltransferase deficiency (principal)
CPT/HCPCS: 96361; 96365 ×2; J7040; J7050; A4216

== ENCOUNTER → 2019-05-16 10:46 | Outpatient (CLI) | payer MEDICARE, BC, SELFPAY ==
[2019-03-31 10:56] VITALS: BMI 34.1
[2019-05-05 11:08] VITALS: BMI 34.1
[2019-05-16 11:15] VITALS: BP 148/86; PULSE 66; RESP 14; O2SAT 97; BMI 33.1
== END ==
PROVIDERS: Family Provider Nurse Practitioner; PCP Nurse Practitioner; Referring Provider Psychiatry & Neurology Neurology; Visit Provider Psychiatry & Neurology Neurology
DX: E71.314 Muscle carnitine palmitoyltransferase deficiency (principal)
CPT/HCPCS: 96365 ×2; J7040; J7050; A4216

== ENCOUNTER → 2019-05-19 10:45 | Outpatient (CLI) | payer MEDICARE, BC, SELFPAY ==
[2019-03-14 10:53] VITALS: BMI 34.1
[2019-05-16 11:15] VITALS: BMI 33.1
[2019-05-19 11:24] VITALS: BP 142/71; PULSE 66; RESP 16; TEMP 36.7; BMI 34.1
[2019-05-19 14:30] VITALS: BP 168/74; PULSE 63; RESP 16; TEMP 35.9; O2SAT 100
== END ==
PROVIDERS: Family Provider Nurse Practitioner; PCP Nurse Practitioner; Referring Provider Psychiatry & Neurology Neurology; Visit Provider Psychiatry & Neurology Neurology
DX: E71.314 Muscle carnitine palmitoyltransferase deficiency (principal)
CPT/HCPCS: 96365 ×2; J7040; J7050; A4216

== ENCOUNTER → 2019-05-26 10:50 | Outpatient (CLI) | payer MEDICARE, BC, SELFPAY ==
[2019-04-11 10:55] VITALS: BMI 34.3
[2019-05-19 11:24] VITALS: BMI 34.1
[2019-05-26 11:08] VITALS: BP 160/88; PULSE 60; RESP 16; TEMP 36.4; BMI 34.1
[2019-05-26 14:48] VITALS: BP 121/63; PULSE 65; RESP 18
[2019-05-26 15:37] VITALS: BP 129/70; PULSE 68; RESP 16
== END ==
PROVIDERS: Family Provider Nurse Practitioner; PCP Nurse Practitioner; Referring Provider Psychiatry & Neurology Neurology; Visit Provider Psychiatry & Neurology Neurology
DX: E71.314 Muscle carnitine palmitoyltransferase deficiency (principal)
CPT/HCPCS: 96361; 96365 ×2; J7040; J7050; A4216

== ENCOUNTER → 2019-05-29 10:50 | Outpatient (CLI) | payer MEDICARE, BC, SELFPAY ==
[2019-04-11 10:55] VITALS: BMI 34.3
[2019-05-26 11:08] VITALS: BMI 34.1
[2019-05-29 11:12] VITALS: BP 170/82; PULSE 80; RESP 16; TEMP 36.6; BMI 34.1
[2019-05-29 15:07] VITALS: BP 170/70; PULSE 69; RESP 16
== END ==
PROVIDERS: Family Provider Nurse Practitioner; PCP Nurse Practitioner; Referring Provider Psychiatry & Neurology Neurology; Visit Provider Psychiatry & Neurology Neurology
DX: E71.40 Disorder of carnitine metabolism, unspecified (principal)
CPT/HCPCS: 96361; 96365 ×2; J7040; J7050; A4216

== ENCOUNTER → 2019-06-02 10:52 | Outpatient (CLI) | payer MEDICARE, BC, SELFPAY ==
[2019-04-11 10:55] VITALS: BMI 34.3
[2019-05-29 11:12] VITALS: BMI 34.1
[2019-06-02 11:12] VITALS: BP 159/70; PULSE 60; RESP 16; TEMP 36.7; BMI 34.1
[2019-06-02 14:28] VITALS: BP 157/87; PULSE 61
== END ==
PROVIDERS: Family Provider Nurse Practitioner; PCP Nurse Practitioner; Referring Provider Psychiatry & Neurology Neurology; Visit Provider Psychiatry & Neurology Neurology
DX: E71.40 Disorder of carnitine metabolism, unspecified (principal)
CPT/HCPCS: 96365 ×2; J7040; J7050; A4216

== ENCOUNTER → 2019-06-06 11:00 | Outpatient (CLI) | payer MEDICARE, BC, SELFPAY ==
[2019-04-11 10:55] VITALS: BMI 34.3
[2019-06-02 11:12] VITALS: BMI 34.1
[2019-06-06 11:15] VITALS: BP 166/67; PULSE 64; RESP 16; TEMP 36.7; BMI 34.1
[2019-06-06 15:01] VITALS: BP 167/70; PULSE 75; RESP 16
== END ==
PROVIDERS: Family Provider Nurse Practitioner; PCP Nurse Practitioner; Visit Provider Psychiatry & Neurology Neurology
DX: E71.40 Disorder of carnitine metabolism, unspecified (principal)
CPT/HCPCS: 96365; 96366 ×3; J7040; J7050; A4216

== ENCOUNTER → 2019-06-12 12:57 | Outpatient (CLI) | payer MEDICARE, BC, SELFPAY ==
[2019-04-11 10:55] VITALS: BMI 34.3
[2019-06-06 11:15] VITALS: BMI 34.1
[2019-06-12 13:35] VITALS: BP 113/90; PULSE 68; RESP 16; O2SAT 98; BMI 34.1
== END ==
PROVIDERS: Family Provider Nurse Practitioner; PCP Nurse Practitioner; Referring Provider Psychiatry & Neurology Neurology; Visit Provider Psychiatry & Neurology Neurology
DX: E71.40 Disorder of carnitine metabolism, unspecified (principal)
CPT/HCPCS: 96365; J7040; J7050

== ENCOUNTER → 2019-06-16 10:46 | Outpatient (CLI) | payer MEDICARE, BC, SELFPAY ==
[2019-04-11 10:55] VITALS: BMI 34.3
[2019-06-12 13:35] VITALS: BMI 34.1
[2019-06-16 10:54] VITALS: BP 145/77; PULSE 69; RESP 16; TEMP 36.6; O2SAT 100; BMI 35.2
== END ==
PROVIDERS: Family Provider Nurse Practitioner; PCP Nurse Practitioner; Referring Provider Psychiatry & Neurology Neurology; Visit Provider Psychiatry & Neurology Neurology
DX: E71.314 Muscle carnitine palmitoyltransferase deficiency (principal)
CPT/HCPCS: 96365 ×2; 97110; J7040; J7050; A4216

== ENCOUNTER → 2019-07-04 12:02 | Outpatient (CLI) | payer MEDICARE, BC, SELFPAY ==
[2019-05-26 11:08] VITALS: BMI 34.1
[2019-06-16 10:54] VITALS: BMI 35.2
[2019-07-04 12:07] VITALS: BP 149/70; PULSE 65; RESP 16; TEMP 36; O2SAT 98; BMI 33.1
[2019-07-04 15:05] VITALS: BP 155/63; PULSE 69; RESP 14; O2SAT 99
== END ==
PROVIDERS: Family Provider Nurse Practitioner; PCP Nurse Practitioner; Referring Provider Psychiatry & Neurology Neurology; Visit Provider Psychiatry & Neurology Neurology
DX: E71.40 Disorder of carnitine metabolism, unspecified (principal); E78.00 Pure hypercholesterolemia, unspecified; G47.10 Hypersomnia, unspecified
CPT/HCPCS: 96365; 96366; J7040; J7050; A4216

== ENCOUNTER → 2019-07-14 14:33 | Outpatient (CLI) | payer MEDICARE, BC, SELFPAY ==
[2019-05-26 11:08] VITALS: BMI 34.1
[2019-07-04 12:07] VITALS: BMI 33.1
[2019-07-14 14:49] VITALS: BP 133/64; PULSE 66; RESP 18; TEMP 37.3; O2SAT 99; BMI 33.1
== END ==
PROVIDERS: Family Provider Nurse Practitioner; PCP Nurse Practitioner; Referring Provider Psychiatry & Neurology Neurology; Visit Provider Psychiatry & Neurology Neurology
DX: E71.40 Disorder of carnitine metabolism, unspecified (principal); E78.00 Pure hypercholesterolemia, unspecified; G47.10 Hypersomnia, unspecified
CPT/HCPCS: 96365; J7040; J7050; A4216

== ENCOUNTER → 2019-07-20 10:47 | Outpatient (CLI) | payer MEDICARE, BC, SELFPAY ==
[2019-05-26 11:08] VITALS: BMI 34.1
[2019-07-14 14:49] VITALS: BMI 33.1
[2019-07-20 11:15] VITALS: BP 134/75; PULSE 61; RESP 16; TEMP 36.7; O2SAT 100; BMI 35.2
[2019-07-20 14:47] VITALS: BP 160/81
== END ==
PROVIDERS: Family Provider Nurse Practitioner; PCP Nurse Practitioner; Referring Provider Psychiatry & Neurology Neurology; Visit Provider Psychiatry & Neurology Neurology
DX: E71.40 Disorder of carnitine metabolism, unspecified (principal); E78.00 Pure hypercholesterolemia, unspecified; G47.10 Hypersomnia, unspecified
CPT/HCPCS: 96365; 96366; J7040; J7050; A4216

== ENCOUNTER → 2019-07-21 14:34 | Outpatient (CLI) | payer MEDICARE, BC, SELFPAY ==
[2019-05-26 11:08] VITALS: BMI 34.1
[2019-07-20 11:15] VITALS: BMI 35.2
[2019-07-21 14:44] VITALS: BP 149/86; PULSE 64; RESP 16; TEMP 36.8; O2SAT 98; BMI 32.5
== END ==
PROVIDERS: Family Provider Nurse Practitioner; PCP Nurse Practitioner; Referring Provider Psychiatry & Neurology Neurology; Visit Provider Psychiatry & Neurology Neurology
DX: E71.40 Disorder of carnitine metabolism, unspecified (principal); E78.00 Pure hypercholesterolemia, unspecified; G47.10 Hypersomnia, unspecified
CPT/HCPCS: 96365; J7050; A4216

== ENCOUNTER → 2019-07-25 10:46 | Outpatient (CLI) | payer MEDICARE, BC, SELFPAY ==
[2019-07-20 11:15] VITALS: BMI 35.2
[2019-07-21 14:44] VITALS: BMI 32.5
[2019-07-25 10:53] VITALS: BP 134/68; PULSE 69; RESP 20; TEMP 36.4; O2SAT 99; BMI 32.5
[2019-07-25 15:12] VITALS: BP 145/72; PULSE 67; RESP 18; O2SAT 95
[2019-07-25 15:25] LABS: Absolute Lymphocyte Count 1.89 X10^3/uL (0.83-4.51); Absolute Neutrophil Count 4.1 X10^3/uL (2.0-7.7); Basophil# 0.03 X10^3/uL; Basophil% 0.4 % (0-1); Eosinophil# 0.07 X10^3/uL; Hematocrit 37.4 % (37-47); Hemoglobin 12.1 g/dL (12.0-15.0); Lymphocyte # 1.89 X10^3/ul (4.0); Lymphocyte % 28.3 % (19-41); Mean Corp Hgb Conc 32.4 g/dL (32-36); Mean Corpuscular Hgb 30.4 pg (27.0-32.0); Mean Platelet Vol. 9.4 fl (6.2-12.0); Monocyte# 0.54 X10^3/uL; Monocyte% 8.1 % (0-10); NRBC Flagged by Analyzer 0 % (0-5); Neutrophil # 4.14 X10^3/uL (2.7-7.7); Neutrophil % 61.9 % (47-70); Platelet Count 256 K/mm3 (150-450); RBC Distribution Width CV 13.2 % (11.6-14.6); RBC Distribution Width SD 45.1 fl (35.1-43.9); Red Blood Count 3.98 M/mm3 (4.2-5.4); White Blood Count 6.7 K/mm3 (4.4-11.0)
[2019-07-25 15:49] LABS: AST(SGOT) 20 U/L (15-37); Alanine Aminotransfer ALT/SGPT 29 U/L (13-56); Albumin, Serum 3.3 g/dL (3.2-5.0); Alkaline Phosphatase 69 U/L (45-117); Anion Gap 6 (5-15); BUN 20 mg/dL (7-18); BUN/Creat Ratio 36.4 RATIO (10-20); Calcium,Total 8.6 mg/dL (8.5-10.1); Chloride 112 mmol/L (98-107); Creatinine, Serum 0.55 mg/dL (0.55-1.02); EST Glomerular Filtration Rate 116 mL/min (>60); Est Glom Filt Rate - Afr Amer 140 mL/min (>60); Globulin 3.4 g/dL (2.2-4.2); Glucose 97 mg/dL (74-106); Potassium 3.6 mmol/L (3.5-5.1); Protein, Total 6.7 g/dL (6.4-8.2); Sodium Level 144 mmol/L (136-145)
[2019-07-25 16:18] LABS: BNP,B-Type NATRIURETIC PEPTIDE 201.3 pg/mL (0-100)
== END ==
PROVIDERS: PCP Nurse Practitioner; Referring Provider Psychiatry & Neurology Neurology; Visit Provider Psychiatry & Neurology Neurology
DX: E71.40 Disorder of carnitine metabolism, unspecified (principal); E78.00 Pure hypercholesterolemia, unspecified; G47.10 Hypersomnia, unspecified; R06.02 Shortness of breath; R05 Cough
CPT/HCPCS: 96365 ×2; 36415; 36591; 80053; 83880; 85025; J7040; J7050; A4216

== ENCOUNTER → 2019-08-01 14:50 | Outpatient (CLI) | payer MEDICARE, BC, SELFPAY ==
[2019-07-20 11:15] VITALS: BMI 35.2
[2019-07-25 10:53] VITALS: BMI 32.5
[2019-08-01 15:06] VITALS: BP 150/85; PULSE 61; RESP 16; TEMP 36.7; O2SAT 100; BMI 34.1
== END ==
PROVIDERS: PCP Nurse Practitioner; Referring Provider Psychiatry & Neurology Neurology; Visit Provider Psychiatry & Neurology Neurology
DX: E71.40 Disorder of carnitine metabolism, unspecified (principal); E78.00 Pure hypercholesterolemia, unspecified; G47.10 Hypersomnia, unspecified
CPT/HCPCS: 96365; J7040; J7050; A4216

== ENCOUNTER → 2019-08-04 13:10 | Outpatient (CLI) | payer MEDICARE, BC, SELFPAY ==
[2019-07-20 11:15] VITALS: BMI 35.2
[2019-08-01 15:06] VITALS: BMI 34.1
[2019-08-04 14:01] VITALS: BP 127/79; PULSE 62; RESP 16; TEMP 36.1; O2SAT 94; BMI 34.1
== END ==
PROVIDERS: PCP Nurse Practitioner; Referring Provider Psychiatry & Neurology Neurology; Visit Provider Psychiatry & Neurology Neurology
DX: E71.40 Disorder of carnitine metabolism, unspecified (principal); E78.00 Pure hypercholesterolemia, unspecified; G47.10 Hypersomnia, unspecified
CPT/HCPCS: 96365; J7050; A4216

== ENCOUNTER → 2019-08-08 14:20 | Outpatient (CLI) | payer MEDICARE, BC, SELFPAY ==
[2019-07-25 10:53] VITALS: BMI 32.5
[2019-08-04 14:01] VITALS: BMI 34.1
[2019-08-08 14:37] VITALS: BP 128/72; PULSE 65; RESP 16; TEMP 36.3; BMI 34.1
== END ==
PROVIDERS: PCP Nurse Practitioner; Referring Provider Psychiatry & Neurology Neurology; Visit Provider Psychiatry & Neurology Neurology
DX: E71.40 Disorder of carnitine metabolism, unspecified (principal); E78.00 Pure hypercholesterolemia, unspecified; G47.10 Hypersomnia, unspecified
CPT/HCPCS: 96365; J7040; J7050; A4216

== ENCOUNTER → 2019-08-11 14:38 | Outpatient (CLI) | payer MEDICARE, BC, SELFPAY ==
[2019-07-25 10:53] VITALS: BMI 32.5
[2019-08-08 14:37] VITALS: BMI 34.1
[2019-08-11 14:46] VITALS: BP 129/82; PULSE 71; RESP 18; TEMP 36.6; O2SAT 98; BMI 33.6
== END ==
PROVIDERS: PCP Nurse Practitioner; Referring Provider Psychiatry & Neurology Neurology; Visit Provider Psychiatry & Neurology Neurology
DX: E71.40 Disorder of carnitine metabolism, unspecified (principal); E78.00 Pure hypercholesterolemia, unspecified; G47.10 Hypersomnia, unspecified
CPT/HCPCS: 96365; J7050; A4216

== ENCOUNTER → 2019-08-16 14:37 | Outpatient (CLI) | payer MEDICARE, BC, SELFPAY ==
[2019-07-25 10:53] VITALS: BMI 32.5
[2019-08-11 14:46] VITALS: BMI 33.6
[2019-08-16 14:43] VITALS: BP 146/69; PULSE 74; RESP 18; TEMP 36.5; O2SAT 97
== END ==
PROVIDERS: PCP Nurse Practitioner; Referring Provider Psychiatry & Neurology Neurology; Visit Provider Psychiatry & Neurology Neurology
DX: E71.40 Disorder of carnitine metabolism, unspecified (principal); E78.00 Pure hypercholesterolemia, unspecified; G47.10 Hypersomnia, unspecified
CPT/HCPCS: 96365; J7040; J7050; A4216

== ENCOUNTER → 2019-09-05 14:45 | Outpatient (CLI) | payer MEDICARE, BC, SELFPAY ==
[2019-07-25 10:53] VITALS: BMI 32.5
[2019-08-11 14:46] VITALS: BMI 33.6
[2019-09-05 15:07] VITALS: BP 167/81; PULSE 59; RESP 16; TEMP 36; O2SAT 100; BMI 33.6
== END ==
PROVIDERS: PCP Nurse Practitioner; Referring Provider Psychiatry & Neurology Neurology; Visit Provider Psychiatry & Neurology Neurology
DX: E71.40 Disorder of carnitine metabolism, unspecified (principal)
CPT/HCPCS: 96365; J7040; J7050; A4216

== ENCOUNTER → 2019-09-08 14:47 | Outpatient (CLI) | payer MEDICARE, BC, SELFPAY ==
[2019-07-25 10:53] VITALS: BMI 32.5
[2019-09-05 15:07] VITALS: BMI 33.6
[2019-09-08 14:52] VITALS: BP 152/72; PULSE 58; RESP 16; TEMP 36.8; O2SAT 100; BMI 33.6
[2019-09-08] MEDS: 0.9% NaCl Peripheral Flush Adult/Peds IV ×2 (15:03→16:34)
[2019-09-08 16:36] VITALS: BP 152/72; PULSE 55
== END ==
PROVIDERS: PCP Nurse Practitioner; Referring Provider Psychiatry & Neurology Neurology; Visit Provider Psychiatry & Neurology Neurology
DX: E71.40 Disorder of carnitine metabolism, unspecified (principal)
CPT/HCPCS: 96365; J7040; J7050; A4216

== ENCOUNTER → 2019-09-12 14:29 | Outpatient (CLI) | payer MEDICARE, BC, SELFPAY ==
[2019-07-25 10:53] VITALS: BMI 32.5
[2019-09-08 14:52] VITALS: BMI 33.6
[2019-09-12 14:52] VITALS: BP 157/75; PULSE 55; RESP 16; TEMP 36.3; O2SAT 95; BMI 33.6
[2019-09-12] MEDS: 0.9% NaCl VAD Flush IV ×2 (14:55→16:22)
== END ==
PROVIDERS: PCP Nurse Practitioner; Referring Provider Psychiatry & Neurology Neurology; Visit Provider Psychiatry & Neurology Neurology
DX: E71.40 Disorder of carnitine metabolism, unspecified (principal)
CPT/HCPCS: 96361; 96365; J7040; J7050; A4216

== ENCOUNTER → 2019-09-15 14:43 | Outpatient (CLI) | payer MEDICARE, BC, SELFPAY ==
[2019-07-25 10:53] VITALS: BMI 32.5
[2019-09-12 14:52] VITALS: BMI 33.6
[2019-09-15] MEDS: 0.9% NaCl VAD Flush IV (14:49)
[2019-09-15] MEDS: 0.9 % NaCl (Sterile) Posiflush 10 mL IV (14:49)
[2019-09-15 14:55] VITALS: BP 139/76; PULSE 63; RESP 16; TEMP 36.6; O2SAT 95; BMI 34.6
== END ==
PROVIDERS: PCP Nurse Practitioner; Referring Provider Psychiatry & Neurology Neurology; Visit Provider Psychiatry & Neurology Neurology
DX: E71.40 Disorder of carnitine metabolism, unspecified (principal); E78.00 Pure hypercholesterolemia, unspecified; G47.10 Hypersomnia, unspecified
CPT/HCPCS: 96365; J7040; J7050; A4216

== ENCOUNTER → 2019-09-19 14:37 | Outpatient (CLI) | payer MEDICARE, BC, SELFPAY ==
[2019-07-25 10:53] VITALS: BMI 32.5
[2019-09-15 14:55] VITALS: BMI 34.6
[2019-09-19 15:00] VITALS: BP 151/80; PULSE 60; RESP 16; TEMP 36.2; O2SAT 95; BMI 34.9
[2019-09-19] MEDS: 0.9% NaCl IVPB Med Flush (250 mL) 15 ML IV (15:04)
[2019-09-19] MEDS: 0.9 % NaCl (Sterile) Posiflush 10 mL IV (15:05)
[2019-09-19] MEDS: 0.9% NaCl PICC Flush IV (15:48)
== END ==
PROVIDERS: PCP Nurse Practitioner; Referring Provider Psychiatry & Neurology Neurology; Visit Provider Psychiatry & Neurology Neurology
DX: E71.40 Disorder of carnitine metabolism, unspecified (principal); E78.00 Pure hypercholesterolemia, unspecified; G47.10 Hypersomnia, unspecified
CPT/HCPCS: 96365; J7050; A4216

== ENCOUNTER → 2019-09-22 10:37 | Outpatient (CLI) | payer MEDICARE, BC, SELFPAY ==
[2019-09-15 14:55] VITALS: BMI 34.6
[2019-09-19 15:00] VITALS: BMI 34.9
[2019-09-22 11:43] VITALS: BP 171/75; PULSE 67; RESP 16; TEMP 36.7; BMI 34.6
[2019-09-22] MEDS: 0.9% NaCl IVPB Med Flush (250 mL) 15 ML IV (14:50)
[2019-09-22] MEDS: 0.9% NaCl VAD Flush IV ×2 (15:00→15:41)
[2019-09-22 15:39] VITALS: BP 146/69; PULSE 61; O2SAT 98
== END ==
PROVIDERS: PCP Nurse Practitioner; Referring Provider Psychiatry & Neurology Neurology; Visit Provider Psychiatry & Neurology Neurology
DX: E71.40 Disorder of carnitine metabolism, unspecified (principal)
CPT/HCPCS: 96365 ×2; J7050; A4216

== ENCOUNTER → 2019-09-26 10:43 | Outpatient (CLI) | payer MEDICARE, BC, SELFPAY ==
[2019-09-15 14:55] VITALS: BMI 34.6
[2019-09-22 11:43] VITALS: BMI 34.6
[2019-09-26 10:59] VITALS: BP 148/74; PULSE 66; RESP 16; TEMP 36.2; O2SAT 96; BMI 34.9
[2019-09-26] MEDS: 0.9% NaCl VAD Flush IV ×2 (14:49→16:08)
== END ==
PROVIDERS: PCP Nurse Practitioner; Referring Provider Psychiatry & Neurology Neurology; Visit Provider Psychiatry & Neurology Neurology
DX: E71.40 Disorder of carnitine metabolism, unspecified (principal); E78.00 Pure hypercholesterolemia, unspecified; G47.10 Hypersomnia, unspecified
CPT/HCPCS: 96365 ×2; J7040; J7050; A4216

== ENCOUNTER → 2019-09-29 10:47 | Outpatient (CLI) | payer MEDICARE, BC, SELFPAY ==
[2019-09-15 14:55] VITALS: BMI 34.6
[2019-09-26 10:59] VITALS: BMI 34.9
[2019-09-29 11:00] VITALS: BP 142/73; PULSE 69; RESP 16; TEMP 36.2; O2SAT 98; BMI 36.3
[2019-09-29] MEDS: 0.9% NaCl VAD Flush IV ×4 (11:23→15:27)
[2019-09-29 15:35] VITALS: BP 142/73; PULSE 69; RESP 16; TEMP 36.2; O2SAT 98
== END ==
PROVIDERS: PCP Nurse Practitioner; Referring Provider Psychiatry & Neurology Neurology; Visit Provider Psychiatry & Neurology Neurology
DX: E71.40 Disorder of carnitine metabolism, unspecified (principal); E78.00 Pure hypercholesterolemia, unspecified; G47.10 Hypersomnia, unspecified
CPT/HCPCS: 96365 ×2; J7050; A4216

== ENCOUNTER → 2019-10-03 10:53 | Outpatient (CLI) | payer MEDICARE, BC, SELFPAY ==
[2019-09-15 14:55] VITALS: BMI 34.6
[2019-09-29 11:00] VITALS: BMI 36.3
[2019-10-03] MEDS: 0.9% NaCl Peripheral Flush Adult/Peds IV ×3 (11:07→16:06)
[2019-10-03] MEDS: 0.9% NaCl IVPB Med Flush (250 mL) 15 ML IV (11:09)
[2019-10-03 11:10] VITALS: BP 140/69; PULSE 68; RESP 16; TEMP 36.6; O2SAT 98; BMI 34.9
== END ==
PROVIDERS: PCP Nurse Practitioner; Referring Provider Psychiatry & Neurology Neurology; Visit Provider Psychiatry & Neurology Neurology
DX: E71.40 Disorder of carnitine metabolism, unspecified (principal); E78.00 Pure hypercholesterolemia, unspecified; G47.10 Hypersomnia, unspecified
CPT/HCPCS: 96365 ×2; J7050; A4216

== ENCOUNTER → 2019-10-10 10:49 | Outpatient (CLI) | payer MEDICARE, BC, SELFPAY ==
[2019-09-15 14:55] VITALS: BMI 34.6
[2019-10-03 11:10] VITALS: BMI 34.9
[2019-10-10] MEDS: 0.9% NaCl Peripheral Flush Adult/Peds IV ×4 (10:59→15:40)
[2019-10-10 11:07] VITALS: BP 134/63; PULSE 63; RESP 16; TEMP 36.3; O2SAT 96; BMI 34.9
[2019-10-10] MEDS: 0.9% NaCl IVPB Med Flush (250 mL) 15 ML IV (11:23)
== END ==
PROVIDERS: PCP Nurse Practitioner; Referring Provider Psychiatry & Neurology Neurology; Visit Provider Psychiatry & Neurology Neurology
DX: E71.40 Disorder of carnitine metabolism, unspecified (principal); E78.00 Pure hypercholesterolemia, unspecified; G47.10 Hypersomnia, unspecified
CPT/HCPCS: 96365 ×2; J7040; J7050; A4216

== ENCOUNTER → 2019-10-13 10:48 | Outpatient (CLI) | payer MEDICARE, BC, SELFPAY ==
[2019-09-15 14:55] VITALS: BMI 34.6
[2019-10-10 11:07] VITALS: BMI 34.9
[2019-10-13] MEDS: 0.9% NaCl IVPB Med Flush (250 mL) 15 ML IV (10:59)
[2019-10-13 11:00] VITALS: BP 149/72; PULSE 65; RESP 16; TEMP 36.5; O2SAT 98; BMI 34.9
[2019-10-13] MEDS: 0.9% NaCl Peripheral Flush Adult/Peds IV ×4 (11:48→15:19)
== END ==
PROVIDERS: PCP Nurse Practitioner; Referring Provider Psychiatry & Neurology Neurology; Visit Provider Psychiatry & Neurology Neurology
DX: E71.40 Disorder of carnitine metabolism, unspecified (principal); E78.00 Pure hypercholesterolemia, unspecified; G47.10 Hypersomnia, unspecified
CPT/HCPCS: 96365 ×2; J7040; J7050; A4216

== ENCOUNTER → 2019-10-17 14:53 | Outpatient (CLI) | payer MEDICARE, BC, SELFPAY ==
[2019-09-15 14:55] VITALS: BMI 34.6
[2019-10-13 11:00] VITALS: BMI 34.9
[2019-10-17 15:04] VITALS: BP 139/72; PULSE 62; RESP 16; TEMP 36.1; O2SAT 97; BMI 34.9
[2019-10-17] MEDS: 0.9% NaCl IVPB Med Flush (250 mL) 15 ML IV (15:14)
[2019-10-17 15:57] VITALS: BP 151/87; PULSE 61; RESP 16; O2SAT 98
[2019-10-17] MEDS: 0.9% NaCl Peripheral Flush Adult/Peds IV (15:59)
== END ==
PROVIDERS: PCP Nurse Practitioner; Referring Provider Psychiatry & Neurology Neurology; Visit Provider Psychiatry & Neurology Neurology
DX: E71.40 Disorder of carnitine metabolism, unspecified (principal); E78.00 Pure hypercholesterolemia, unspecified; G47.10 Hypersomnia, unspecified
CPT/HCPCS: 96365; J7040; J7050; A4216

== ENCOUNTER → 2019-10-20 10:56 | Outpatient (CLI) | payer MEDICARE, BC, SELFPAY ==
[2019-09-15 14:55] VITALS: BMI 34.6
[2019-10-17 15:04] VITALS: BMI 34.9
[2019-10-20 11:15] VITALS: BP 156/72; PULSE 61; RESP 16; TEMP 36.7; O2SAT 96; BMI 34.9
[2019-10-20] MEDS: 0.9% NaCl IVPB Med Flush (250 mL) 15 ML IV (11:18)
[2019-10-20] MEDS: 0.9 % NaCl (Sterile) Posiflush 10 mL IV (11:18)
[2019-10-20] MEDS: 0.9% NaCl VAD Flush IV ×3 (12:11→15:39)
[2019-10-20 14:54] VITALS: BP 151/96; RESP 16; TEMP 36.2
[2019-10-20 15:41] VITALS: BP 171/88; PULSE 72; RESP 16; TEMP 36.2
== END ==
PROVIDERS: PCP Nurse Practitioner; Referring Provider Psychiatry & Neurology Neurology; Visit Provider Psychiatry & Neurology Neurology
DX: E71.40 Disorder of carnitine metabolism, unspecified (principal); E78.00 Pure hypercholesterolemia, unspecified; G47.10 Hypersomnia, unspecified
CPT/HCPCS: 96365 ×2; J7040; J7050; A4216

== ENCOUNTER → 2019-10-24 10:50 | Outpatient (CLI) | payer MEDICARE, BC, SELFPAY ==
[2019-09-15 14:55] VITALS: BMI 34.6
[2019-10-20 11:15] VITALS: BMI 34.9
[2019-10-24 11:19] VITALS: BP 156/77; PULSE 62; RESP 18; TEMP 36.3; O2SAT 96; BMI 34.9
[2019-10-24] MEDS: 0.9% NaCl IVPB Med Flush (250 mL) 15 ML IV (11:24)
[2019-10-24] MEDS: 0.9 % NaCl (Sterile) Posiflush 10 mL IV (11:25)
[2019-10-24] MEDS: 0.9% NaCl VAD Flush IV ×3 (12:27→15:35)
[2019-10-24 15:32] VITALS: BP 166/78; PULSE 59; RESP 16; TEMP 36.5
== END ==
PROVIDERS: PCP Nurse Practitioner; Referring Provider Psychiatry & Neurology Neurology; Visit Provider Psychiatry & Neurology Neurology
DX: E71.40 Disorder of carnitine metabolism, unspecified (principal); E78.00 Pure hypercholesterolemia, unspecified; G47.10 Hypersomnia, unspecified
CPT/HCPCS: 96365 ×2; J7040; J7050; A4216

== ENCOUNTER → 2019-11-03 10:46 | Outpatient (CLI) | payer MEDICARE, BC, SELFPAY ==
[2019-09-15 14:55] VITALS: BMI 34.6
[2019-10-24 11:19] VITALS: BMI 34.9
[2019-11-03 10:55] VITALS: BP 158/75; PULSE 63; RESP 18; TEMP 36.3; O2SAT 98; BMI 33.1
[2019-11-03] MEDS: 0.9 % NaCl (Sterile) Posiflush 10 mL IV (11:07)
[2019-11-03] MEDS: 0.9% NaCl IVPB Med Flush (250 mL) 15 ML IV (11:08)
[2019-11-03] MEDS: 0.9% NaCl VAD Flush IV ×2 (14:12→14:55)
== END ==
PROVIDERS: PCP Nurse Practitioner; Referring Provider Psychiatry & Neurology Neurology; Visit Provider Psychiatry & Neurology Neurology
DX: E71.40 Disorder of carnitine metabolism, unspecified (principal); E78.00 Pure hypercholesterolemia, unspecified; G47.10 Hypersomnia, unspecified
CPT/HCPCS: 96365 ×2; J7040; J7050; A4216

== ENCOUNTER → 2019-11-07 10:51 | Outpatient (CLI) | payer MEDICARE, BC, SELFPAY ==
[2019-09-15 14:55] VITALS: BMI 34.6
[2019-11-03 10:55] VITALS: BMI 33.1
[2019-11-07] MEDS: 0.9 % NaCl (Sterile) Posiflush 10 mL IV (11:03)
[2019-11-07] MEDS: 0.9% NaCl IVPB Med Flush (250 mL) 15 ML IV (11:03)
[2019-11-07 11:05] VITALS: BP 146/85; PULSE 61; RESP 18; TEMP 36.7; O2SAT 97; BMI 40.2
[2019-11-07] MEDS: 0.9% NaCl VAD Flush IV ×3 (12:25→15:06)
[2019-11-07 14:16] VITALS: BP 144/87; PULSE 93; RESP 18; TEMP 36.6; O2SAT 97
== END ==
PROVIDERS: PCP Nurse Practitioner; Referring Provider Psychiatry & Neurology Neurology; Visit Provider Psychiatry & Neurology Neurology
DX: E71.40 Disorder of carnitine metabolism, unspecified (principal); E78.00 Pure hypercholesterolemia, unspecified; G47.10 Hypersomnia, unspecified
CPT/HCPCS: 96365 ×2; J7040; J7050; A4216

== ENCOUNTER → 2019-11-10 10:50 | Outpatient (CLI) | payer MEDICARE, BC, SELFPAY ==
[2019-09-15 14:55] VITALS: BMI 34.6
[2019-11-07 11:05] VITALS: BMI 40.2
[2019-11-10 10:55] VITALS: BP 146/70; PULSE 67; RESP 16; TEMP 36.6; O2SAT 100; BMI 34.9
[2019-11-10] MEDS: 0.9% NaCl IVPB Med Flush (250 mL) 15 ML IV (10:58)
[2019-11-10] MEDS: 0.9 % NaCl (Sterile) Posiflush 10 mL IV (10:58)
[2019-11-10] MEDS: 0.9% NaCl VAD Flush IV ×3 (12:07→15:50)
[2019-11-10 15:04] VITALS: BP 153/81; PULSE 65; RESP 16; O2SAT 98
== END ==
PROVIDERS: PCP Nurse Practitioner; Referring Provider Psychiatry & Neurology Neurology; Visit Provider Psychiatry & Neurology Neurology
DX: E71.40 Disorder of carnitine metabolism, unspecified (principal); E78.00 Pure hypercholesterolemia, unspecified; G47.10 Hypersomnia, unspecified
CPT/HCPCS: 96365 ×2; J7040; J7050; A4216

== ENCOUNTER → 2019-11-21 10:48 | Outpatient (CLI) | payer MEDICARE, BC, SELFPAY ==
[2019-10-24 11:19] VITALS: BMI 34.9
[2019-11-10 10:55] VITALS: BMI 34.9
[2019-11-21 11:06] VITALS: BP 163/78; PULSE 63; RESP 18; TEMP 36.4; BMI 36.0
[2019-11-21] MEDS: 0.9 % NaCl (Sterile) Posiflush 10 mL IV (11:06)
[2019-11-21] MEDS: 0.9% NaCl IVPB Med Flush (250 mL) 15 ML IV (11:34)
[2019-11-21] MEDS: 0.9% NaCl VAD Flush IV ×2 (12:16→15:20)
[2019-11-21 14:28] VITALS: BP 154/79; PULSE 62; RESP 16; O2SAT 96; BMI 36.0
== END ==
PROVIDERS: PCP Nurse Practitioner; Referring Provider Psychiatry & Neurology Neurology; Visit Provider Psychiatry & Neurology Neurology
DX: E71.40 Disorder of carnitine metabolism, unspecified (principal); E78.00 Pure hypercholesterolemia, unspecified; G47.10 Hypersomnia, unspecified
CPT/HCPCS: 96365 ×2; J7040; J7050; A4216

== ENCOUNTER → 2019-11-24 10:56 | Outpatient (CLI) | payer MEDICARE, BC, SELFPAY ==
[2019-10-24 11:19] VITALS: BMI 34.9
[2019-11-21 14:28] VITALS: BMI 36.0
[2019-11-24 11:05] VITALS: BP 171/84; PULSE 64; RESP 18; TEMP 36.5; O2SAT 96; BMI 36.0
[2019-11-24] MEDS: 0.9% NaCl IVPB Med Flush (250 mL) 15 ML IV (11:19)
[2019-11-24] MEDS: 0.9 % NaCl (Sterile) Posiflush 10 mL IV (11:19)
[2019-11-24] MEDS: 0.9% NaCl VAD Flush IV ×3 (11:56→15:17)
[2019-11-24 14:49] VITALS: BP 147/80; PULSE 59; RESP 16; TEMP 36.4; O2SAT 95
== END ==
PROVIDERS: PCP Nurse Practitioner; Referring Provider Psychiatry & Neurology Neurology; Visit Provider Psychiatry & Neurology Neurology
DX: E71.40 Disorder of carnitine metabolism, unspecified (principal); E78.00 Pure hypercholesterolemia, unspecified; G47.10 Hypersomnia, unspecified
CPT/HCPCS: 96365; 96366; J7040; J7050; A4216

== ENCOUNTER → 2019-11-29 10:45 | Outpatient (CLI) | payer MEDICARE, BC, SELFPAY ==
[2019-10-24 11:19] VITALS: BMI 34.9
[2019-11-24 11:05] VITALS: BMI 36.0
[2019-11-29] MEDS: 0.9 % NaCl (Sterile) Posiflush 10 mL IV (11:23)
[2019-11-29] MEDS: 0.9% NaCl IVPB Med Flush (250 mL) 15 ML IV (11:23)
[2019-11-29 11:24] VITALS: BP 134/62; PULSE 63; RESP 16; TEMP 36.6; O2SAT 96; BMI 34.9
[2019-11-29] MEDS: 0.9% NaCl VAD Flush IV ×3 (11:56→15:22)
[2019-11-29 14:46] VITALS: BP 149/72; PULSE 63; RESP 18; TEMP 36.5; O2SAT 96
== END ==
PROVIDERS: PCP Nurse Practitioner; Referring Provider Psychiatry & Neurology Neurology; Visit Provider Psychiatry & Neurology Neurology
DX: E71.40 Disorder of carnitine metabolism, unspecified (principal); E78.00 Pure hypercholesterolemia, unspecified; G47.10 Hypersomnia, unspecified
CPT/HCPCS: 96365; 96366 ×3; J7040; J7050; A4216

== ENCOUNTER → 2019-12-01 10:43 | Outpatient (CLI) | payer MEDICARE, BC, SELFPAY ==
[2019-10-24 11:19] VITALS: BMI 34.9
[2019-11-29 11:24] VITALS: BMI 34.9
[2019-12-01] MEDS: 0.9% NaCl IVPB Med Flush (250 mL) 15 ML IV (11:18)
[2019-12-01] MEDS: 0.9 % NaCl (Sterile) Posiflush 10 mL IV (11:18)
[2019-12-01 11:19] VITALS: BP 162/74; PULSE 62; RESP 16; O2SAT 97; BMI 35.6
[2019-12-01] MEDS: 0.9% NaCl VAD Flush IV ×3 (12:12→14:32)
== END ==
PROVIDERS: PCP Nurse Practitioner; Referring Provider Psychiatry & Neurology Neurology; Visit Provider Psychiatry & Neurology Neurology
DX: E71.40 Disorder of carnitine metabolism, unspecified (principal); E78.00 Pure hypercholesterolemia, unspecified; G47.10 Hypersomnia, unspecified
CPT/HCPCS: 96365; 96366; J7040; J7050; A4216

== ENCOUNTER → 2019-12-05 10:39 | Outpatient (CLI) | payer MEDICARE, BC, SELFPAY ==
[2019-10-24 11:19] VITALS: BMI 34.9
[2019-12-01 11:19] VITALS: BMI 35.6
[2019-12-05] MEDS: 0.9% NaCl IVPB Med Flush (250 mL) 15 ML IV (10:51)
[2019-12-05] MEDS: 0.9 % NaCl (Sterile) Posiflush 10 mL IV (10:51)
[2019-12-05 10:57] VITALS: BP 135/79; PULSE 65; RESP 18; TEMP 36.7; O2SAT 99; BMI 34.4
[2019-12-05] MEDS: 0.9% NaCl VAD Flush IV ×2 (11:49→15:33)
[2019-12-05 14:51] VITALS: BP 157/62; PULSE 72; RESP 16; TEMP 36.7
== END ==
PROVIDERS: PCP Nurse Practitioner; Referring Provider Psychiatry & Neurology Neurology; Visit Provider Psychiatry & Neurology Neurology
DX: E71.40 Disorder of carnitine metabolism, unspecified (principal); E78.00 Pure hypercholesterolemia, unspecified; G47.10 Hypersomnia, unspecified
CPT/HCPCS: 96365; 96366; J7040; J7050; A4216

== ENCOUNTER → 2019-12-08 10:48 | Outpatient (CLI) | payer MEDICARE, BC, SELFPAY ==
[2019-10-24 11:19] VITALS: BMI 34.9
[2019-12-05 10:57] VITALS: BMI 34.4
[2019-12-08] MEDS: 0.9 % NaCl (Sterile) Posiflush 10 mL IV (10:57)
[2019-12-08] MEDS: 0.9% NaCl IVPB Med Flush (250 mL) 15 ML IV (10:58)
[2019-12-08 11:05] VITALS: BP 141/92; PULSE 68; RESP 16; TEMP 36.9; O2SAT 99; BMI 38.0
[2019-12-08] MEDS: 0.9% NaCl VAD Flush IV ×3 (12:08→15:30)
== END ==
PROVIDERS: PCP Nurse Practitioner; Referring Provider Psychiatry & Neurology Neurology; Visit Provider Psychiatry & Neurology Neurology
DX: E71.40 Disorder of carnitine metabolism, unspecified (principal); E78.00 Pure hypercholesterolemia, unspecified; G47.10 Hypersomnia, unspecified
CPT/HCPCS: 96365; 96366; J7050; A4216

== ENCOUNTER → 2019-12-12 09:21 | Outpatient (CLI) | payer MEDICARE, BC, SELFPAY ==
[2019-10-24 11:19] VITALS: BMI 34.9
[2019-12-08 11:05] VITALS: BMI 38.0
--- NOTE | 2019-12-12 09:30 | US_ITS ---
STUDY: ABDOMINAL ULTRASOUND - RIGHT UPPER QUADRANT REASON FOR VISIT: Female, 69 years old RUQ PAIN, NAUSEA TECHNIQUE: Ultrasound evaluation of the right upper quadrant was performed with real-time and static coppola-scale imaging. TECHNICAL QUALITY: Adequate. COMPARISON: No recent studies FINDINGS: Liver: The liver measures 13.4 cm. There is increased echogenicity consistent with fatty infiltration. The bile ducts are within normal limits. There is hepatic color flow. The direction of portal flow is hepatopetal. There is no demonstrated mass lesion. Gallbladder: Normal distended gallbladder. The gallbladder wall measures 2 mm. There is a negative sonographic Cassidy''s sign. There is no pericholecystic fluid. There are no gallstones. Common Bile Duct (C.B.D.): The common bile duct measures 2 mm. Pancreas: Normal size of the head, body and tail of the pancreas. There is increased echogenicity of the pancreas. There is no demonstrated pancreatic mass or cyst. Right Kidney: Normal size of the right kidney. The right kidney measures 9.7 x 4.3 x 4 cm. Normal renal cortex. The right cortex measures 1.2 cm. There is no demonstrated renal mass or cyst. There is no right hydronephrosis. US/Gallbladder IMPRESSION: Diffuse fatty infiltration of the liver, no discrete lesion Electronically Signed: Bryant Woody MD at 10:27 EDT , Service support ,
[2019-12-12 10:24] VITALS: BP 163/67; PULSE 61; RESP 16; TEMP 36.3; O2SAT 98; BMI 34.4
[2019-12-12] MEDS: 0.9 % NaCl (Sterile) Posiflush 10 mL IV (10:29)
[2019-12-12] MEDS: 0.9% NaCl IVPB Med Flush (250 mL) 15 ML IV ×2 (10:32→14:28)
[2019-12-12] MEDS: 0.9% NaCl VAD Flush IV ×3 (11:47→15:14)
[2019-12-12 14:33] VITALS: BP 140/60; PULSE 75; RESP 16; O2SAT 99
== END ==
PROVIDERS: PCP Nurse Practitioner; Referring Provider Nurse Practitioner; Visit Provider Nurse Practitioner
DX: R10.11 Right upper quadrant pain (principal); E71.40 Disorder of carnitine metabolism, unspecified; E78.00 Pure hypercholesterolemia, unspecified; G47.10 Hypersomnia, unspecified
CPT/HCPCS: 96365; 96366; 76705; J7040; J7050; A4216

== ENCOUNTER → 2019-12-21 10:56 | Outpatient (CLI) | payer MEDICARE, BC, SELFPAY ==
[2019-10-24 11:19] VITALS: BMI 34.9
[2019-12-12 10:24] VITALS: BMI 34.4
[2019-12-21 11:07] VITALS: BP 150/80; PULSE 64; RESP 16; TEMP 35.7; O2SAT 97; BMI 33.6
[2019-12-21] MEDS: 0.9 % NaCl (Sterile) Posiflush 10 mL IV (11:16)
[2019-12-21] MEDS: 0.9% NaCl IVPB Med Flush (250 mL) 15 ML IV (11:19)
[2019-12-21] MEDS: 0.9% NaCl VAD Flush IV ×3 (12:15→15:26)
[2019-12-21 14:44] VITALS: BP 147/72; PULSE 69; RESP 16
== END ==
PROVIDERS: PCP Nurse Practitioner; Referring Provider Psychiatry & Neurology Neurology; Visit Provider Psychiatry & Neurology Neurology
DX: E71.40 Disorder of carnitine metabolism, unspecified (principal); E78.00 Pure hypercholesterolemia, unspecified; G47.10 Hypersomnia, unspecified
CPT/HCPCS: 96365; 96366; J7040; J7050; A4216

== ENCOUNTER → 2019-12-26 10:43 | Outpatient (CLI) | payer MEDICARE, BC, SELFPAY ==
[2019-12-21 11:07] VITALS: BMI 33.6
[2019-12-26 10:56] VITALS: BP 172/72; PULSE 67; RESP 16; TEMP 36.6; O2SAT 98; BMI 33.3
[2019-12-26] MEDS: 0.9 % NaCl (Sterile) Posiflush 10 mL IV ×2 (11:01→16:02)
[2019-12-26] MEDS: 0.9% NaCl VAD Flush IV ×2 (11:01→11:59)
[2019-12-26] MEDS: 0.9% NaCl IVPB Med Flush (250 mL) 15 ML IV (11:11)
[2019-12-26 15:07] VITALS: BP 153/75; PULSE 66; RESP 16; TEMP 36.6; O2SAT 98; BMI 33.3
== END ==
PROVIDERS: PCP Nurse Practitioner; Referring Provider Psychiatry & Neurology Neurology; Visit Provider Psychiatry & Neurology Neurology
DX: E71.40 Disorder of carnitine metabolism, unspecified (principal); E78.00 Pure hypercholesterolemia, unspecified; G47.10 Hypersomnia, unspecified
CPT/HCPCS: 96365; 96366; J7040; J7050; A4216

== ENCOUNTER → 2019-12-29 10:29 | Outpatient (CLI) | payer MEDICARE, BC, SELFPAY ==
[2019-12-21 11:07] VITALS: BMI 33.6
[2019-12-26 15:07] VITALS: BMI 33.3
[2019-12-29] MEDS: 0.9 % NaCl (Sterile) Posiflush 10 mL IV (10:46)
[2019-12-29] MEDS: 0.9% NaCl IVPB Med Flush (250 mL) 15 ML IV (10:46)
[2019-12-29 10:50] VITALS: BP 140/70; PULSE 62; RESP 16; TEMP 36.4; BMI 85.3
[2019-12-29] MEDS: 0.9% NaCl VAD Flush IV ×3 (11:57→15:25)
[2019-12-29 14:41] VITALS: BP 157/75; PULSE 77; RESP 18
== END ==
PROVIDERS: PCP Nurse Practitioner; Referring Provider Psychiatry & Neurology Neurology; Visit Provider Psychiatry & Neurology Neurology
DX: E71.40 Disorder of carnitine metabolism, unspecified (principal); E78.00 Pure hypercholesterolemia, unspecified; G47.10 Hypersomnia, unspecified
CPT/HCPCS: 96365; 96366; J7040; J7050; A4216

== ENCOUNTER → 2020-01-02 14:33 | Outpatient (CLI) | payer MEDICARE, BC, SELFPAY ==
[2019-10-24 11:19] VITALS: BMI 34.9
[2019-12-29 10:50] VITALS: BMI 85.3
[2020-01-02 14:49] VITALS: BP 138/71; PULSE 62; RESP 16; TEMP 36.6; O2SAT 96; BMI 36.6
[2020-01-02] MEDS: 0.9% NaCl IVPB Med Flush (250 mL) 15 ML IV (14:55)
[2020-01-02] MEDS: 0.9 % NaCl (Sterile) Posiflush 10 mL IV (14:55)
[2020-01-02] MEDS: 0.9% NaCl VAD Flush IV (15:36)
== END ==
PROVIDERS: PCP Nurse Practitioner; Referring Provider Psychiatry & Neurology Neurology; Visit Provider Psychiatry & Neurology Neurology
DX: E71.40 Disorder of carnitine metabolism, unspecified (principal); E78.00 Pure hypercholesterolemia, unspecified; G47.10 Hypersomnia, unspecified
CPT/HCPCS: 96365; J7040; J7050; A4216

== ENCOUNTER → 2020-01-05 10:49 | Outpatient (CLI) | payer MEDICARE, BC, SELFPAY ==
[2019-10-24 11:19] VITALS: BMI 34.9
[2020-01-02 14:49] VITALS: BMI 36.6
[2020-01-05] MEDS: 0.9 % NaCl (Sterile) Posiflush 10 mL IV (10:54)
[2020-01-05] MEDS: 0.9% NaCl IVPB Med Flush (250 mL) 15 ML IV (11:02)
[2020-01-05 11:03] VITALS: BP 148/96; PULSE 63; RESP 16; TEMP 36.8; O2SAT 96; BMI 32.5
[2020-01-05] MEDS: 0.9% NaCl VAD Flush IV ×3 (11:50→15:27)
== END ==
PROVIDERS: PCP Nurse Practitioner; Referring Provider Psychiatry & Neurology Neurology; Visit Provider Psychiatry & Neurology Neurology
DX: E71.40 Disorder of carnitine metabolism, unspecified (principal); E78.00 Pure hypercholesterolemia, unspecified; G47.10 Hypersomnia, unspecified
CPT/HCPCS: 96365; 96366; J7040; J7050; A4216

== ENCOUNTER → 2020-01-12 14:45 | Outpatient (CLI) | payer MEDICARE, BC, SELFPAY ==
[2019-10-24 11:19] VITALS: BMI 34.9
[2020-01-05 11:03] VITALS: BMI 32.5
[2020-01-12] MEDS: 0.9 % NaCl (Sterile) Posiflush 10 mL IV (14:58)
[2020-01-12] MEDS: 0.9% NaCl IVPB Med Flush (250 mL) 15 ML IV (14:58)
[2020-01-12 15:01] VITALS: BP 144/87; PULSE 68; RESP 16; TEMP 37.2; O2SAT 98; BMI 35.2
[2020-01-12] MEDS: 0.9% NaCl VAD Flush IV (15:42)
[2020-01-12 15:43] VITALS: BP 142/80; PULSE 70; RESP 16; TEMP 37.2
== END ==
PROVIDERS: PCP Nurse Practitioner; Referring Provider Psychiatry & Neurology Neurology; Visit Provider Psychiatry & Neurology Neurology
DX: E71.40 Disorder of carnitine metabolism, unspecified (principal); E78.00 Pure hypercholesterolemia, unspecified; G47.10 Hypersomnia, unspecified
CPT/HCPCS: 96365; J7040; J7050; A4216

== ENCOUNTER → 2020-01-16 10:44 | Outpatient (CLI) | payer MEDICARE, BC, SELFPAY ==
[2019-10-24 11:19] VITALS: BMI 34.9
[2020-01-12 15:01] VITALS: BMI 35.2
[2020-01-16] MEDS: 0.9 % NaCl (Sterile) Posiflush 10 mL IV (11:07)
[2020-01-16] MEDS: 0.9% NaCl IVPB Med Flush (250 mL) 15 ML IV (11:10)
[2020-01-16 11:22] VITALS: BP 170/85; PULSE 61; RESP 18; TEMP 36.7; BMI 34.1
[2020-01-16] MEDS: 0.9% NaCl VAD Flush IV ×3 (11:55→15:19)
[2020-01-16 14:39] VITALS: BP 147/68; PULSE 65; RESP 16
== END ==
PROVIDERS: PCP Nurse Practitioner; Referring Provider Psychiatry & Neurology Neurology; Visit Provider Psychiatry & Neurology Neurology
DX: E71.40 Disorder of carnitine metabolism, unspecified (principal)
CPT/HCPCS: 96365; 96366; J7040; J7050; A4216

== ENCOUNTER → 2020-01-19 10:53 | Outpatient (CLI) | payer MEDICARE, BC, SELFPAY ==
[2019-10-24 11:19] VITALS: BMI 34.9
[2020-01-16 11:22] VITALS: BMI 34.1
[2020-01-19] MEDS: 0.9 % NaCl (Sterile) Posiflush 10 mL IV (10:59)
[2020-01-19 11:04] VITALS: BP 142/81; PULSE 68; RESP 16; TEMP 36.3; O2SAT 94; BMI 33.6
[2020-01-19] MEDS: 0.9% NaCl IVPB Med Flush (250 mL) 15 ML IV (11:14)
[2020-01-19] MEDS: 0.9% NaCl VAD Flush IV ×3 (12:11→15:32)
[2020-01-19 14:40] VITALS: BP 142/66; PULSE 63; RESP 16; TEMP 36.6; O2SAT 94
[2020-01-19 15:36] VITALS: BP 132/59; PULSE 66; RESP 16; O2SAT 97
== END ==
PROVIDERS: PCP Nurse Practitioner; Referring Provider Nurse Practitioner; Visit Provider Psychiatry & Neurology Neurology
DX: E71.40 Disorder of carnitine metabolism, unspecified (principal); E78.00 Pure hypercholesterolemia, unspecified; G47.10 Hypersomnia, unspecified
CPT/HCPCS: 96365; 96366; J7040; J7050; A4216

== ENCOUNTER → 2020-01-30 10:48 | Outpatient (CLI) | payer MEDICARE, BC, SELFPAY ==
[2020-01-19 11:04] VITALS: BMI 33.6
[2020-01-30 10:59] VITALS: BP 100/58; PULSE 66; RESP 18; TEMP 36.6; O2SAT 97; BMI 33.6
[2020-01-30] MEDS: 0.9% NaCl IVPB Med Flush (250 mL) 15 ML IV (11:04)
[2020-01-30] MEDS: 0.9 % NaCl (Sterile) Posiflush 10 mL IV (11:04)
[2020-01-30] MEDS: 0.9% NaCl VAD Flush IV ×3 (12:31→15:25)
== END ==
PROVIDERS: PCP Nurse Practitioner; Referring Provider Psychiatry & Neurology Neurology; Visit Provider Psychiatry & Neurology Neurology
DX: E71.40 Disorder of carnitine metabolism, unspecified (principal); E78.00 Pure hypercholesterolemia, unspecified; G47.10 Hypersomnia, unspecified
CPT/HCPCS: 96365; 96366; J7040; J7050; A4216

== ENCOUNTER → 2020-02-02 10:53 | Outpatient (CLI) | payer MEDICARE, BC, SELFPAY ==
[2020-01-19 11:04] VITALS: BMI 33.6
[2020-01-30 10:59] VITALS: BMI 33.6
[2020-02-02] MEDS: 0.9 % NaCl (Sterile) Posiflush 10 mL IV (11:03)
[2020-02-02] MEDS: 0.9% NaCl IVPB Med Flush (250 mL) 15 ML IV (11:09)
[2020-02-02 11:11] VITALS: BP 127/69; PULSE 64; RESP 14; TEMP 36.7; O2SAT 95; BMI 33.5
[2020-02-02] MEDS: 0.9% NaCl VAD Flush IV ×3 (11:57→14:51)
[2020-02-02 14:54] VITALS: BP 154/72; PULSE 62
== END ==
PROVIDERS: PCP Nurse Practitioner; Referring Provider Psychiatry & Neurology Neurology; Visit Provider Psychiatry & Neurology Neurology
DX: E71.40 Disorder of carnitine metabolism, unspecified (principal); E78.00 Pure hypercholesterolemia, unspecified; G47.10 Hypersomnia, unspecified
CPT/HCPCS: 96365; 96366; J7040; J7050; A4216

== ENCOUNTER → 2020-02-06 10:45 | Outpatient (CLI) | payer MEDICARE, BC, SELFPAY ==
[2020-01-19 11:04] VITALS: BMI 33.6
[2020-02-02 11:11] VITALS: BMI 33.5
[2020-02-06] MEDS: 0.9 % NaCl (Sterile) Posiflush 10 mL IV (11:07)
[2020-02-06] MEDS: 0.9% NaCl IVPB Med Flush (250 mL) 15 ML IV (11:08)
[2020-02-06 11:09] VITALS: BP 144/79; PULSE 59; RESP 16; TEMP 36.7; O2SAT 97; BMI 33.5
[2020-02-06] MEDS: 0.9% NaCl VAD Flush IV ×3 (12:20→15:19)
== END ==
PROVIDERS: PCP Nurse Practitioner; Referring Provider Psychiatry & Neurology Neurology; Visit Provider Psychiatry & Neurology Neurology
DX: E71.40 Disorder of carnitine metabolism, unspecified (principal); E78.00 Pure hypercholesterolemia, unspecified; G47.10 Hypersomnia, unspecified
CPT/HCPCS: 96365 ×2; J7040; J7050; A4216

== ENCOUNTER → 2020-02-09 14:37 | Outpatient (CLI) | payer MEDICARE, BC, SELFPAY ==
[2020-01-19 11:04] VITALS: BMI 33.6
[2020-02-06 11:09] VITALS: BMI 33.5
[2020-02-09] MEDS: 0.9% NaCl VAD Flush IV ×2 (14:52→15:33)
[2020-02-09] MEDS: 0.9 % NaCl (Sterile) Posiflush 10 mL IV (14:52)
[2020-02-09] MEDS: 0.9% NaCl IVPB Med Flush (250 mL) 15 ML IV (14:53)
[2020-02-09 14:56] VITALS: BP 150/75; PULSE 62; RESP 16; TEMP 36.1; O2SAT 97; BMI 33.6
== END ==
PROVIDERS: PCP Nurse Practitioner; Referring Provider Psychiatry & Neurology Neurology; Visit Provider Psychiatry & Neurology Neurology
DX: E71.40 Disorder of carnitine metabolism, unspecified (principal); E78.00 Pure hypercholesterolemia, unspecified; G47.10 Hypersomnia, unspecified
CPT/HCPCS: 96365; J7040; J7050; A4216

== ENCOUNTER → 2020-02-16 10:52 | Outpatient (CLI) | payer MEDICARE, BC, SELFPAY ==
[2020-01-19 11:04] VITALS: BMI 33.6
[2020-02-09 14:56] VITALS: BMI 33.6
[2020-02-16] MEDS: 0.9 % NaCl (Sterile) Posiflush 10 mL IV (11:06)
[2020-02-16] MEDS: 0.9% NaCl IVPB Med Flush (250 mL) 15 ML IV (11:06)
[2020-02-16 11:09] VITALS: BP 146/84; PULSE 73; RESP 16; TEMP 36.1; O2SAT 97; BMI 33.6
[2020-02-16] MEDS: 0.9% NaCl VAD Flush IV ×3 (12:10→15:28)
[2020-02-16 12:13] VITALS: BP 146/84; PULSE 73; RESP 16; TEMP 36.6
== END ==
PROVIDERS: PCP Nurse Practitioner; Referring Provider Psychiatry & Neurology Neurology; Visit Provider Psychiatry & Neurology Neurology
DX: E71.40 Disorder of carnitine metabolism, unspecified (principal); E78.00 Pure hypercholesterolemia, unspecified; G47.10 Hypersomnia, unspecified
CPT/HCPCS: 96365 ×2; J7040; J7050; A4216

== ENCOUNTER → 2020-02-20 14:28 | Outpatient (CLI) | payer MEDICARE, BC, SELFPAY ==
[2020-01-19 11:04] VITALS: BMI 33.6
[2020-02-16 11:09] VITALS: BMI 33.6
[2020-02-20 14:41] VITALS: BP 141/74; PULSE 64; RESP 16; TEMP 36.3; O2SAT 98; BMI 33.5
[2020-02-20] MEDS: 0.9 % NaCl (Sterile) Posiflush 10 mL IV (14:46)
[2020-02-20] MEDS: 0.9% NaCl VAD Flush IV (15:35)
[2020-02-20 15:37] VITALS: BP 139/70; PULSE 62; RESP 16; O2SAT 96
== END ==
PROVIDERS: PCP Nurse Practitioner; Referring Provider Nurse Practitioner; Visit Provider Psychiatry & Neurology Neurology
DX: E71.40 Disorder of carnitine metabolism, unspecified (principal); E78.00 Pure hypercholesterolemia, unspecified; G47.10 Hypersomnia, unspecified
CPT/HCPCS: 96365; J7040; A4216

== ENCOUNTER → 2020-02-22 10:48 | Outpatient (CLI) | payer MEDICARE, BC, SELFPAY ==
[2020-01-19 11:04] VITALS: BMI 33.6
[2020-02-20 14:41] VITALS: BMI 33.5
[2020-02-22] MEDS: 0.9 % NaCl (Sterile) Posiflush 10 mL IV (11:00)
[2020-02-22 11:04] VITALS: BP 156/87; PULSE 67; RESP 16; TEMP 36.5; O2SAT 98; BMI 33.6
[2020-02-22] MEDS: 0.9% NaCl IVPB Med Flush (250 mL) 15 ML IV (11:17)
[2020-02-22] MEDS: 0.9% NaCl VAD Flush IV ×3 (12:05→15:42)
[2020-02-22 14:54] VITALS: BP 140/87; PULSE 62; RESP 16; TEMP 35.9; O2SAT 97
== END ==
PROVIDERS: PCP Nurse Practitioner; Referring Provider Psychiatry & Neurology Neurology; Visit Provider Psychiatry & Neurology Neurology
DX: E71.40 Disorder of carnitine metabolism, unspecified (principal); E78.00 Pure hypercholesterolemia, unspecified; G47.10 Hypersomnia, unspecified
CPT/HCPCS: 96365; 96366; J7040; J7050; A4216

== ENCOUNTER → 2020-03-01 10:48 | Outpatient (CLI) | payer MEDICARE, BC, SELFPAY ==
[2020-01-19 11:04] VITALS: BMI 33.6
[2020-02-22 11:04] VITALS: BMI 33.6
[2020-03-01] MEDS: 0.9 % NaCl (Sterile) Posiflush 10 mL IV (10:54)
[2020-03-01 10:55] VITALS: BP 132/67; PULSE 67; RESP 16; TEMP 36.2; O2SAT 98; BMI 33.6
[2020-03-01] MEDS: 0.9% NaCl IVPB Med Flush (250 mL) 15 ML IV (10:57)
[2020-03-01] MEDS: 0.9% NaCl VAD Flush IV ×3 (12:35→15:41)
[2020-03-01 15:55] VITALS: BP 132/67; PULSE 67; RESP 16; TEMP 36.2; O2SAT 98
== END ==
PROVIDERS: PCP Nurse Practitioner; Referring Provider Psychiatry & Neurology Neurology; Visit Provider Psychiatry & Neurology Neurology
DX: E71.40 Disorder of carnitine metabolism, unspecified (principal); E78.00 Pure hypercholesterolemia, unspecified; G47.10 Hypersomnia, unspecified
CPT/HCPCS: 96365 ×2; 96366; J7040; J7050; A4216

== ENCOUNTER → 2020-03-05 14:16 | Outpatient (CLI) | payer MEDICARE, BC, SELFPAY ==
[2020-01-19 11:04] VITALS: BMI 33.6
[2020-03-01 10:55] VITALS: BMI 33.6
[2020-03-05] MEDS: 0.9% NaCl IVPB Med Flush (250 mL) 15 ML IV (14:49)
[2020-03-05] MEDS: 0.9 % NaCl (Sterile) Posiflush 10 mL IV (14:50)
[2020-03-05 14:52] VITALS: BP 152/70; PULSE 59; RESP 16; TEMP 36.8; O2SAT 98; BMI 33.6
[2020-03-05] MEDS: 0.9% NaCl VAD Flush IV (15:29)
[2020-03-05 15:38] VITALS: BP 150/68; PULSE 62; RESP 16; TEMP 36.8; O2SAT 96
== END ==
PROVIDERS: PCP Nurse Practitioner; Referring Provider Psychiatry & Neurology Neurology; Visit Provider Psychiatry & Neurology Neurology
DX: E71.40 Disorder of carnitine metabolism, unspecified (principal); E78.00 Pure hypercholesterolemia, unspecified; G47.10 Hypersomnia, unspecified
CPT/HCPCS: 96365; J7040; J7050; A4216

== ENCOUNTER → 2020-03-08 10:48 | Outpatient (CLI) | payer MEDICARE, BC, SELFPAY ==
[2020-01-19 11:04] VITALS: BMI 33.6
[2020-03-05 14:52] VITALS: BMI 33.6
[2020-03-08] MEDS: 0.9% NaCl IVPB Med Flush (250 mL) 15 ML IV (11:00)
[2020-03-08] MEDS: 0.9 % NaCl (Sterile) Posiflush 10 mL IV (11:07)
[2020-03-08 11:15] VITALS: BP 160/87; PULSE 60; RESP 16; TEMP 36.5; O2SAT 98; BMI 33.6
[2020-03-08] MEDS: 0.9% NaCl VAD Flush IV ×3 (11:53→15:21)
== END ==
PROVIDERS: PCP Nurse Practitioner; Referring Provider Psychiatry & Neurology Neurology; Visit Provider Psychiatry & Neurology Neurology
DX: E71.40 Disorder of carnitine metabolism, unspecified (principal); E78.00 Pure hypercholesterolemia, unspecified; G47.10 Hypersomnia, unspecified
CPT/HCPCS: 96365 ×2; J7040; J7050; A4216

== ENCOUNTER → 2020-03-12 14:31 | Outpatient (CLI) | payer MEDICARE, BC, SELFPAY ==
[2020-01-19 11:04] VITALS: BMI 33.6
[2020-03-08 11:15] VITALS: BMI 33.6
[2020-03-12] MEDS: 0.9% NaCl IVPB Med Flush (250 mL) 15 ML IV (14:41)
[2020-03-12] MEDS: 0.9 % NaCl (Sterile) Posiflush 10 mL IV (14:41)
[2020-03-12 14:42] VITALS: BP 149/95; PULSE 66; RESP 16; TEMP 36.6; O2SAT 99; BMI 33.7
[2020-03-12] MEDS: 0.9% NaCl VAD Flush IV (15:33)
[2020-03-12 15:38] VITALS: BP 149/75; PULSE 66; RESP 16; TEMP 36.6; O2SAT 99
== END ==
PROVIDERS: PCP Nurse Practitioner; Referring Provider Psychiatry & Neurology Neurology; Visit Provider Psychiatry & Neurology Neurology
DX: E71.40 Disorder of carnitine metabolism, unspecified (principal); E78.00 Pure hypercholesterolemia, unspecified; G47.10 Hypersomnia, unspecified
CPT/HCPCS: 96365; J7040; J7050; A4216

== ENCOUNTER → 2020-03-15 10:49 | Outpatient (CLI) | payer MEDICARE, BC, SELFPAY ==
[2020-01-19 11:04] VITALS: BMI 33.6
[2020-03-12 14:42] VITALS: BMI 33.7
[2020-03-15 10:59] VITALS: BP 147/75; PULSE 66; RESP 16; TEMP 36.1; O2SAT 97; BMI 33.7
[2020-03-15] MEDS: 0.9 % NaCl (Sterile) Posiflush 10 mL IV (11:11)
[2020-03-15] MEDS: 0.9% NaCl IVPB Med Flush (250 mL) 15 ML IV (11:12)
[2020-03-15] MEDS: 0.9% NaCl VAD Flush IV ×3 (12:03→15:37)
[2020-03-15 14:45] VITALS: BP 151/56; PULSE 73; RESP 16; TEMP 36.1; O2SAT 95
[2020-03-15 15:39] VITALS: BP 134/77; PULSE 67; RESP 16
== END ==
PROVIDERS: PCP Nurse Practitioner; Referring Provider Psychiatry & Neurology Neurology; Visit Provider Psychiatry & Neurology Neurology
DX: E71.40 Disorder of carnitine metabolism, unspecified (principal); E78.00 Pure hypercholesterolemia, unspecified; G47.10 Hypersomnia, unspecified
CPT/HCPCS: 96365 ×2; J7040; J7050; A4216

== ENCOUNTER → 2020-03-19 10:45 | Outpatient (CLI) | payer MEDICARE, BC, SELFPAY ==
[2020-01-19 11:04] VITALS: BMI 33.6
[2020-03-15 10:59] VITALS: BMI 33.7
[2020-03-19 11:06] VITALS: BP 133/66; PULSE 62; RESP 16; TEMP 36.8; O2SAT 99; BMI 33.6
[2020-03-19] MEDS: 0.9 % NaCl (Sterile) Posiflush 10 mL IV (11:17)
[2020-03-19] MEDS: 0.9% NaCl VAD Flush IV ×3 (12:00→15:42)
[2020-03-19 14:57] VITALS: BP 129/61; PULSE 73; RESP 16; TEMP 36.9; O2SAT 97; BMI 33.6
[2020-03-19 15:47] VITALS: BP 129/61; PULSE 73; RESP 16; TEMP 36.9; O2SAT 97
== END ==
PROVIDERS: PCP Nurse Practitioner; Referring Provider Psychiatry & Neurology Neurology; Visit Provider Psychiatry & Neurology Neurology
DX: E71.40 Disorder of carnitine metabolism, unspecified (principal); E78.00 Pure hypercholesterolemia, unspecified; G47.10 Hypersomnia, unspecified
CPT/HCPCS: 96365 ×2; J7040; J7050; A4216

== ENCOUNTER → 2020-03-29 14:21 | Outpatient (CLI) | payer MEDICARE, BC, SELFPAY ==
[2020-02-22 11:04] VITALS: BMI 33.6
[2020-03-19 14:57] VITALS: BMI 33.6
[2020-03-29 14:26] VITALS: BP 184/89; PULSE 68; RESP 16; TEMP 36.4; O2SAT 96; BMI 34.7
[2020-03-29] MEDS: 0.9 % NaCl (Sterile) Posiflush 10 mL IV (14:34)
[2020-03-29] MEDS: 0.9% NaCl IVPB Med Flush (250 mL) 15 ML IV (14:35)
[2020-03-29] MEDS: 0.9% NaCl VAD Flush IV (15:14)
== END ==
PROVIDERS: PCP Nurse Practitioner; Referring Provider Psychiatry & Neurology Neurology; Visit Provider Psychiatry & Neurology Neurology
DX: E71.40 Disorder of carnitine metabolism, unspecified (principal); E78.00 Pure hypercholesterolemia, unspecified; G47.10 Hypersomnia, unspecified
CPT/HCPCS: 96365; J7040; J7050; A4216

== ENCOUNTER → 2020-04-02 10:49 | Outpatient (CLI) | payer MEDICARE, BC, SELFPAY ==
[2020-02-22 11:04] VITALS: BMI 33.6
[2020-03-29 14:26] VITALS: BMI 34.7
[2020-04-02 11:01] VITALS: BP 165/76; PULSE 61; RESP 16; TEMP 36.6; O2SAT 98; BMI 36.3
[2020-04-02] MEDS: 0.9 % NaCl (Sterile) Posiflush 10 mL IV (11:12)
[2020-04-02] MEDS: 0.9% NaCl VAD Flush IV ×4 (11:13→15:23)
[2020-04-02] MEDS: 0.9% NaCl IVPB Med Flush (250 mL) 15 ML IV (11:14)
[2020-04-02 14:40] VITALS: BP 159/75; PULSE 68; RESP 16; O2SAT 97
[2020-04-02 15:28] VITALS: BP 165/75; PULSE 71; RESP 14; TEMP 36.6; O2SAT 97
== END ==
PROVIDERS: PCP Nurse Practitioner; Referring Provider Psychiatry & Neurology Neurology; Visit Provider Psychiatry & Neurology Neurology
DX: E71.40 Disorder of carnitine metabolism, unspecified (principal); E78.00 Pure hypercholesterolemia, unspecified; G47.10 Hypersomnia, unspecified
CPT/HCPCS: 96365 ×2; J7040; J7050; A4216

== ENCOUNTER → 2020-04-05 10:46 | Outpatient (CLI) | payer MEDICARE, BC, SELFPAY ==
[2020-02-22 11:04] VITALS: BMI 33.6
[2020-04-02 11:01] VITALS: BMI 36.3
[2020-04-05] MEDS: 0.9 % NaCl (Sterile) Posiflush 10 mL IV (11:00)
[2020-04-05] MEDS: 0.9% NaCl VAD Flush IV ×2 (11:01→12:00)
[2020-04-05] MEDS: 0.9% NaCl IVPB Med Flush (250 mL) 15 ML IV (11:02)
[2020-04-05 11:03] VITALS: BP 145/77; PULSE 72; RESP 16; TEMP 36.5; O2SAT 98; BMI 33.6
[2020-04-05 12:00] VITALS: BP 202/101; PULSE 71; TEMP 36.3
[2020-04-05 12:10] VITALS: BP 203/95; PULSE 71; RESP 16; TEMP 36.3; O2SAT 98
[2020-04-05 12:28] VITALS: BP 203/95
--- NOTE | 2020-04-05 12:45 | NURSING ---
PAGED [facility] PHYSICIAN CUSTOMER EXPERIENCE LEADER - REPORTED TO DR. ORO BP ELEVATED - NOON 202/101 AND 1230 203/95. NO SYMPTOMS NOTED, TAKES NORVASC 5 MG DAILY. INSTRUCTED TO SEND PATIENT TO [facility]. RELAYED MESSAGE TO PATIENT.
== END ==
PROVIDERS: PCP Nurse Practitioner; Referring Provider Psychiatry & Neurology Neurology; Visit Provider Psychiatry & Neurology Neurology
DX: E71.40 Disorder of carnitine metabolism, unspecified (principal); E78.00 Pure hypercholesterolemia, unspecified; G47.10 Hypersomnia, unspecified
CPT/HCPCS: 96365; J7040; J7050; A4216

== ENCOUNTER 2020-04-05 13:44 | Emergency (ER) | payer MEDICARE, BC, SELFPAY ==
[2020-04-05 11:03] VITALS: BMI 33.6
[2020-04-05 13:48] VITALS: BP 193/120; PULSE 67; RESP 15; TEMP 36.7; O2SAT 99; BMI 33.6
--- NOTE | 2020-04-05 15:05 | EKG12_ITS ---
Test Reason : HYPOTENSION Blood Pressure : / mmHG Vent. Rate : 062 BPM Atrial Rate : 062 BPM P-R Int : 134 ms QRS Dur : 078 ms QT Int : 418 ms P-R-T Axes : 057 019 057 degrees QTc Int : 424 ms Normal sinus rhythm Normal ECG Confirmed by ROBERT ZULETA, JONNIE ([id number]), development editor MARY RODRIGUEZ ([id number]) on 04/19/2020 9:45:34 A M Referred By: Confirmed By:ELLIOTT JONES MD
--- NOTE | 2020-04-05 15:06 | ED.DCSUM_ITS ---
History of Present Illness Informant: Patient Narrative: 1-year-old female past medical history of hypertension presents with complaints of hypertension. She states she gets regular carnitine infusions and went to her infusion at 11 AM and they told her her BP was 220/100. She had not taken loaded pain 5 mg because she was going to take it after the infusion. They sent her to her PCP who is not in so she came to the ER. She has still not taken her medications. She said on the drive here she had some brief bilateral flank pain and earlier today she had chest heaviness. Denies fevers, chills, cough shortness of breath, nausea, or vomiting. Denies headache, vision changes, speech changes, or focal motor or sensory changes. She feels fine now. <Kindra Ron - Last Filed: 04/05/20 16:07> <Sarabjit Salians - Last Filed: 04/05/20 16:24> Chief Complaint: Hypertension Past Medical History Past Medical History: - - hypertension, carnitine deficiency Smoking Status: Never smoker <Kindra Ron - Last Filed: 04/05/20 16:07> <Sarabjit Salinas - Last Filed: 04/05/20 16:24> - Allergies and Home Meds Allergies/Adverse Reactions: Allergies pentazocine Allergy (Verified 04/05/20 13:53) Unknown pentazocine lactate [From Talwin] Allergy (Verified 04/05/20 13:53) Unknown metoclopramide Adverse Reaction (Verified 04/05/20 13:53) Other HOT SWEATY Primary Care Physician: Aislinn Espinal LAPPING MACHINE TENDER, LAPPING MACHINE TENDER-C [Primary Care Provider] - Review of Systems General: Denies: Chills, Fever, Sweats Eyes: Denies: Visual changes - bilaterally, Diplopia ENT: Denies: Rhinorrhea, Sore throat Cardiovascular: Reports: - - chest pressure. Denies: Palpitations Respiratory: Denies: Dyspnea, Cough, Dyspnea on exertion Gastrointestinal: Denies: Abdominal pain, Nausea, Vomiting Genitourinary: Reports: Dysuria, Frequency. Denies: Hematuria Musculoskeletal: Reports: Back pain. Denies: Extremity Pain Skin: Denies: Rash, Wounds Neurological: Denies: Headache, Weakness, Numbness <Kindra Ron - Last Filed: 04/05/20 16:07> Physical Exam Vital Signs/Narrative: Vital Signs Temp Pulse Resp BP Pulse Ox 04/05/20 13:48 98.1 F 67 15 193/120 H 99 General: Well nourished, Well developed, No Acute Distress Head: Normocephalic, Atraumatic Eyes: Perrl, EOMI ENT: Moist mucous membranes, No rhinorrhea Neck: Supple, Nontender Cardiovascular: Regular rate, Regular rhythm, No murmurs Respiratory: No distress, CTA bilaterally, Chest nontender Abdomen: Soft, Nontender, Nondistended, Normal bowel sounds Back: Nontender, Normal Inspection Extremities: Nontender, No edema Skin: Normal color, No rash Neurological: Alert, Oriented x3, Cranial nerves II-XII grossly intact, Normal Strength, Normal Sensation Psychological: Normal affect, Normal Mood <Kindra Ron - Last Filed: 04/05/20 16:07> Vital Signs/Narrative: Vital Signs Temp Pulse Resp BP Pulse Ox 04/05/20 15:50 179/80 H 04/05/20 15:17 183/98 H 04/05/20 13:48 98.1 F 67 15 193/120 H 99 <BradSarabjit - Last Filed: 04/05/20 16:24> Diagnostic/Tx/Re-eval Laboratory Data 04/05/20 15:15 Sodium 141 Potassium 4.0 Chloride 109 H Carbon Dioxide 28.0 Anion Gap 4 L BUN 22 H Creatinine 0.67 Estim Creat Clear Calc 44.56 Est GFR (MDRD) Af Amer 112 Est GFR (MDRD) Non-Af 93 BUN/Creatinine Ratio 33.0 H Glucose 99 Calcium 8.9 Troponin I < 0.015 - Rhythm Strip Rhythm Strip: Sinus Rhythm Rate: 62 - Medical Decision Making Presented with hypertension after she did not take her home amlodipine. She states she had brief flank pain and chest heaviness earlier but these have resolved. She denies any other symptoms such as headache, shortness of breath, cough, abdominal pain, hematuria, or focal neurological changes. She is asymptomatic here. BP on arrival was 193/120, otherwise vitals within normal limits. She was given her home dose of amlodipine 5 mg and BP improved to 179/80. BMP was normal renal function. EKG is normal sinus rhythm with no signs of ischemia and troponin is negative. As she is asymptomatic here with no signs of end organ damage she is stable for outpatient follow-up with her doctor concerning her hypertension. She was agreeable and discharged home in stable condition. <Kindra Ron - Last Filed: 04/05/20 16:07> - Medical Decision Making Independent history and physical as obtained/performed by me. Patient presents because of a low blood pressure. She states she has a slight headache for maybe a minute. It is right-sided. She denies double vision, blurred vision loss of vision. Denies ringing or ears or decreased hearing. She did have some chest discomfort. She had chest discomfort for the past several days according to . She also has a cough which is chronic. She denies dyspnea or dyspnea on exertion. She denies referred pain. She denies vomiting or diarrhea. She denies problems with balance. Denies problems with speech or swallowing. She states she did not take her blood pressure meds this morning. Work-up was undertaken. Vital signs were remarkable for an elevated blood pressure. HEENT exam is unremarkable. Neck is supple. There is no carotid bruit. Lungs are clear to auscultation. Heart is regular. Abdomen is soft nontender. Neuro exam is nonfocal. Work-up was unremarkable. Patient's blood pressure has improved since she received her dose of p.o. blood pressure medication. <Sarabjit Salinas - Last Filed: 04/05/20 16:24> ED Disposition <Kindra Ron - Last Filed: 04/05/20 16:07> <Sarabjit Salinas - Last Filed: 04/05/20 16:24> - Plan for ED Patient: Disposition: Home or Assisted Living Diagnosis: Hypertension Instructions: ED Hypertension Established Referrals: Aislinn Espinal LAPPING MACHINE TENDER, LAPPING MACHINE TENDER-C [Primary Care Provider] -
[2020-04-05 15:17] VITALS: BP 183/98
[2020-04-05] MEDS: amLODIPine 5 MG Tablet PO (15:18)
[2020-04-05 15:50] VITALS: BP 179/80
[2020-04-05 15:52] LABS: Anion Gap 4 (5-15); BUN 22 mg/dL (7-18); Calcium,Total 8.9 mg/dL (8.5-10.1); Chloride 109 mmol/L (98-107); Creatinine, Serum 0.67 mg/dL (0.55-1.02); EST Glomerular Filtration Rate 93 mL/min (>60); Est Glom Filt Rate - Afr Amer 112 mL/min (>60); Estimated Creatinine Clearance 44.56 ml/min; Glucose 99 mg/dL (74-106); Sodium Level 141 mmol/L (136-145)
[2020-04-05 16:22] VITALS: RESP 16
== END 2020-04-05 16:24 | disposition home or self-care (01) ==
PROVIDERS: Emergency Provider Physician Assistant; PCP Nurse Practitioner
DX: I10 Essential (primary) hypertension (principal)
CPT/HCPCS: 80048; 84484; 93005; 99283; 99285; J7040; J7050; A4216

== ENCOUNTER → 2020-04-12 14:39 | Outpatient (CLI) | payer MEDICARE, BC, SELFPAY ==
[2020-02-22 11:04] VITALS: BMI 33.6
[2020-04-05 13:48] VITALS: BMI 33.6
[2020-04-12 15:00] VITALS: BP 163/76; PULSE 67; RESP 16; TEMP 36.6; O2SAT 98
[2020-04-12] MEDS: 0.9% NaCl IVPB Med Flush (250 mL) 15 ML IV (15:04)
[2020-04-12] MEDS: 0.9 % NaCl (Sterile) Posiflush 10 mL IV (15:04)
[2020-04-12 15:43] VITALS: BP 142/57; PULSE 62; RESP 18; TEMP 36.1; O2SAT 99
[2020-04-12] MEDS: 0.9% NaCl VAD Flush IV (15:45)
== END ==
PROVIDERS: PCP Nurse Practitioner; Referring Provider Psychiatry & Neurology Neurology; Visit Provider Psychiatry & Neurology Neurology
DX: E71.40 Disorder of carnitine metabolism, unspecified (principal); E78.00 Pure hypercholesterolemia, unspecified; G47.10 Hypersomnia, unspecified
CPT/HCPCS: 96365; J7040; J7050; A4216

== ENCOUNTER → 2020-04-16 14:45 | Outpatient (CLI) | payer MEDICARE, BC, SELFPAY ==
[2020-02-22 11:04] VITALS: BMI 33.6
[2020-04-05 13:48] VITALS: BMI 33.6
[2020-04-16] MEDS: 0.9 % NaCl (Sterile) Posiflush 10 mL IV (15:14)
[2020-04-16] MEDS: 0.9% NaCl IVPB Med Flush (250 mL) 15 ML IV (15:15)
[2020-04-16 15:24] VITALS: BP 144/62; PULSE 60; RESP 16; TEMP 36.4; O2SAT 97; BMI 33.6
[2020-04-16 16:01] VITALS: BP 153/80; PULSE 62; RESP 18; TEMP 36.3; O2SAT 98
[2020-04-16] MEDS: 0.9% NaCl VAD Flush IV (16:05)
== END ==
PROVIDERS: PCP Nurse Practitioner; Referring Provider Psychiatry & Neurology Neurology; Visit Provider Psychiatry & Neurology Neurology
DX: E71.40 Disorder of carnitine metabolism, unspecified (principal); E78.00 Pure hypercholesterolemia, unspecified; G47.10 Hypersomnia, unspecified
CPT/HCPCS: 96365; J7040; J7050; A4216

== ENCOUNTER → 2020-04-19 14:36 | Outpatient (CLI) | payer MEDICARE, BC, SELFPAY ==
[2020-02-22 11:04] VITALS: BMI 33.6
[2020-04-16 15:24] VITALS: BMI 33.6
[2020-04-19 14:51] VITALS: BP 141/71; PULSE 55; RESP 18; TEMP 36.3; O2SAT 99; BMI 33.6
[2020-04-19] MEDS: 0.9 % NaCl (Sterile) Posiflush 10 mL IV (15:06)
[2020-04-19] MEDS: 0.9% NaCl IVPB Med Flush (250 mL) 15 ML IV (15:07)
[2020-04-19] MEDS: 0.9% NaCl VAD Flush IV (15:57)
[2020-04-19 16:03] VITALS: BP 149/66; PULSE 66; RESP 16
== END ==
PROVIDERS: PCP Nurse Practitioner; Referring Provider Psychiatry & Neurology Neurology; Visit Provider Psychiatry & Neurology Neurology
DX: E71.40 Disorder of carnitine metabolism, unspecified (principal); E78.00 Pure hypercholesterolemia, unspecified; G47.10 Hypersomnia, unspecified
CPT/HCPCS: 96365; J7040; J7050; A4216

== ENCOUNTER → 2020-04-23 14:55 | Outpatient (CLI) | payer MEDICARE, BC, SELFPAY ==
[2020-02-22 11:04] VITALS: BMI 33.6
[2020-04-19 14:51] VITALS: BMI 33.6
[2020-04-23 15:17] VITALS: BP 155/71; PULSE 72; RESP 16; TEMP 36.4; O2SAT 100; BMI 33.6
[2020-04-23] MEDS: 0.9% NaCl IVPB Med Flush (250 mL) 15 ML IV (15:36)
[2020-04-23] MEDS: 0.9 % NaCl (Sterile) Posiflush 10 mL IV (15:36)
[2020-04-23] MEDS: 0.9% NaCl VAD Flush IV (16:17)
[2020-04-23 16:30] VITALS: BP 155/71; PULSE 72; RESP 16; TEMP 36.1; O2SAT 99
== END ==
PROVIDERS: PCP Nurse Practitioner; Referring Provider Psychiatry & Neurology Neurology; Visit Provider Psychiatry & Neurology Neurology
DX: E71.40 Disorder of carnitine metabolism, unspecified (principal); E78.00 Pure hypercholesterolemia, unspecified; G47.10 Hypersomnia, unspecified
CPT/HCPCS: 96365; J7040; J7050; A4216

== ENCOUNTER → 2020-04-26 14:37 | Outpatient (CLI) | payer MEDICARE, BC, SELFPAY ==
[2020-02-22 11:04] VITALS: BMI 33.6
[2020-04-23 15:17] VITALS: BMI 33.6
[2020-04-26] MEDS: 0.9% NaCl IVPB Med Flush (250 mL) 15 ML IV (14:50)
[2020-04-26] MEDS: 0.9 % NaCl (Sterile) Posiflush 10 mL IV (14:50)
[2020-04-26 15:06] VITALS: BP 133/74; PULSE 66; RESP 16; TEMP 36.4; O2SAT 97; BMI 33.6
[2020-04-26] MEDS: 0.9% NaCl VAD Flush IV (15:44)
[2020-04-26 15:48] VITALS: BP 123/55; PULSE 67; RESP 16; O2SAT 99
== END ==
PROVIDERS: PCP Nurse Practitioner; Referring Provider Psychiatry & Neurology Neurology; Visit Provider Psychiatry & Neurology Neurology
DX: E71.40 Disorder of carnitine metabolism, unspecified (principal)
CPT/HCPCS: 96365; J7040; J7050; A4216

== ENCOUNTER → 2020-04-30 10:44 | Outpatient (CLI) | payer MEDICARE, BC, SELFPAY ==
[2020-02-22 11:04] VITALS: BMI 33.6
[2020-04-26 15:06] VITALS: BMI 33.6
[2020-04-30] MEDS: 0.9% NaCl IVPB Med Flush (250 mL) 15 ML IV (11:26)
[2020-04-30] MEDS: 0.9 % NaCl (Sterile) Posiflush 10 mL IV (11:26)
[2020-04-30 11:27] VITALS: BP 125/78; PULSE 59; RESP 16; TEMP 36.6; O2SAT 97; BMI 33.6
[2020-04-30] MEDS: 0.9% NaCl VAD Flush IV ×3 (12:25→15:52)
== END ==
PROVIDERS: PCP Nurse Practitioner; Referring Provider Psychiatry & Neurology Neurology; Visit Provider Psychiatry & Neurology Neurology
DX: E71.40 Disorder of carnitine metabolism, unspecified (principal); E78.00 Pure hypercholesterolemia, unspecified; G47.10 Hypersomnia, unspecified
CPT/HCPCS: 96365 ×2; J7040; J7050; A4216

== ENCOUNTER → 2020-05-03 14:41 | Outpatient (CLI) | payer MEDICARE, BC, SELFPAY ==
[2020-02-22 11:04] VITALS: BMI 33.6
[2020-04-30 11:27] VITALS: BMI 33.6
[2020-05-03 14:52] VITALS: BP 148/88; PULSE 68; RESP 18; TEMP 36.3; O2SAT 97; BMI 33.6
[2020-05-03] MEDS: 0.9 % NaCl (Sterile) Posiflush 10 mL IV (15:07)
[2020-05-03] MEDS: 0.9% NaCl IVPB Med Flush (250 mL) 15 ML IV (15:08)
[2020-05-03] MEDS: 0.9% NaCl VAD Flush IV ×2 (16:28→16:38)
[2020-05-03 16:39] VITALS: BP 134/75; PULSE 60; RESP 16; O2SAT 98
== END ==
PROVIDERS: PCP Nurse Practitioner; Referring Provider Psychiatry & Neurology Neurology; Visit Provider Psychiatry & Neurology Neurology
DX: E71.40 Disorder of carnitine metabolism, unspecified (principal); E78.00 Pure hypercholesterolemia, unspecified; G47.10 Hypersomnia, unspecified
CPT/HCPCS: 96365; J7040; J7050; A4216

== ENCOUNTER → 2020-05-21 10:53 | Outpatient (CLI) | payer MEDICARE, BC, SELFPAY ==
[2020-02-22 11:04] VITALS: BMI 33.6
[2020-05-03 14:52] VITALS: BMI 33.6
[2020-05-21] MEDS: 0.9% NaCl IVPB Med Flush (250 mL) 15 ML IV (11:52)
[2020-05-21] MEDS: 0.9 % NaCl (Sterile) Posiflush 10 mL IV (11:52)
[2020-05-21 11:54] VITALS: BP 148/78; PULSE 54; RESP 18; TEMP 36.6; O2SAT 98; BMI 33.6
[2020-05-21] MEDS: 0.9% NaCl VAD Flush IV ×2 (15:34→15:51)
[2020-05-21 15:48] VITALS: BP 140/62; PULSE 66; RESP 18; O2SAT 99
== END ==
PROVIDERS: PCP Nurse Practitioner; Referring Provider Psychiatry & Neurology Neurology; Visit Provider Psychiatry & Neurology Neurology
DX: E71.40 Disorder of carnitine metabolism, unspecified (principal); E78.00 Pure hypercholesterolemia, unspecified; G47.10 Hypersomnia, unspecified
CPT/HCPCS: 96365 ×2; J7040; J7050; A4216

== ENCOUNTER → 2020-05-24 10:55 | Outpatient (CLI) | payer MEDICARE, BC, SELFPAY ==
[2020-02-22 11:04] VITALS: BMI 33.6
[2020-05-21 11:54] VITALS: BMI 33.6
[2020-05-24 11:11] VITALS: BP 148/67; PULSE 66; RESP 18; TEMP 36.3; O2SAT 97; BMI 33.6
[2020-05-24] MEDS: 0.9% NaCl IVPB Med Flush (250 mL) 15 ML IV ×2 (11:30→14:47)
[2020-05-24] MEDS: 0.9 % NaCl (Sterile) Posiflush 10 mL IV (11:30)
[2020-05-24 12:22] VITALS: BP 144/72; PULSE 56; RESP 16; TEMP 36.4; O2SAT 97
[2020-05-24] MEDS: 0.9% NaCl VAD Flush IV ×2 (14:47→15:28)
[2020-05-24 14:51] VITALS: BP 151/73; PULSE 65; RESP 16; O2SAT 97
[2020-05-24 15:37] VITALS: BP 142/68; PULSE 66; RESP 16
== END ==
PROVIDERS: PCP Nurse Practitioner; Referring Provider Psychiatry & Neurology Neurology; Visit Provider Psychiatry & Neurology Neurology
DX: E71.40 Disorder of carnitine metabolism, unspecified (principal); E78.00 Pure hypercholesterolemia, unspecified; G47.10 Hypersomnia, unspecified
CPT/HCPCS: 96365 ×2; J7040; J7050; A4216

== ENCOUNTER → 2020-05-31 10:40 | Outpatient (CLI) | payer MEDICARE, BC, SELFPAY ==
[2020-02-22 11:04] VITALS: BMI 33.6
[2020-05-24 11:11] VITALS: BMI 33.6
[2020-05-31 10:48] VITALS: BP 152/76; PULSE 58; RESP 16; TEMP 36.1; O2SAT 98; BMI 33.6
[2020-05-31] MEDS: 0.9 % NaCl (Sterile) Posiflush 10 mL IV (11:05)
[2020-05-31] MEDS: 0.9% NaCl IVPB Med Flush (250 mL) 15 ML IV (11:05)
[2020-05-31] MEDS: 0.9% NaCl VAD Flush IV ×3 (11:44→15:08)
== END ==
PROVIDERS: PCP Nurse Practitioner; Referring Provider Psychiatry & Neurology Neurology; Visit Provider Psychiatry & Neurology Neurology
DX: E71.40 Disorder of carnitine metabolism, unspecified (principal); E78.00 Pure hypercholesterolemia, unspecified; G47.10 Hypersomnia, unspecified
CPT/HCPCS: 96365 ×2; J7040; J7050; A4216

== ENCOUNTER → 2020-06-04 10:49 | Outpatient (CLI) | payer MEDICARE, BC, SELFPAY ==
[2020-02-22 11:04] VITALS: BMI 33.6
[2020-05-31 10:48] VITALS: BMI 33.6
[2020-06-04] MEDS: 0.9 % NaCl (Sterile) Posiflush 10 mL IV (11:26)
[2020-06-04] MEDS: 0.9% NaCl IVPB Med Flush (250 mL) 15 ML IV (11:27)
[2020-06-04] MEDS: 0.9% NaCl VAD Flush IV ×5 (11:27→15:33)
[2020-06-04 11:28] VITALS: BP 134/61; PULSE 63; RESP 16; TEMP 36.9; O2SAT 98; BMI 33.6
[2020-06-04 12:14] VITALS: BP 148/76; PULSE 59; RESP 14; TEMP 36.6; O2SAT 98
[2020-06-04 15:35] VITALS: BP 134/61; PULSE 63; RESP 16; TEMP 36.9
== END ==
PROVIDERS: PCP Nurse Practitioner; Referring Provider Psychiatry & Neurology Neurology; Visit Provider Psychiatry & Neurology Neurology
DX: E71.40 Disorder of carnitine metabolism, unspecified (principal); E78.00 Pure hypercholesterolemia, unspecified; G47.10 Hypersomnia, unspecified
CPT/HCPCS: 96365 ×2; J7040; J7050; A4216

== ENCOUNTER → 2020-06-11 10:51 | Outpatient (CLI) | payer MEDICARE, BC, SELFPAY ==
[2020-02-22 11:04] VITALS: BMI 33.6
[2020-06-04 11:28] VITALS: BMI 33.6
[2020-06-11] MEDS: 0.9 % NaCl (Sterile) Posiflush 10 mL IV (11:14)
[2020-06-11] MEDS: 0.9% NaCl IVPB Med Flush (250 mL) 15 ML IV (11:14)
[2020-06-11 11:17] VITALS: BP 157/76; PULSE 57; RESP 16; TEMP 35.6; O2SAT 98
[2020-06-11] MEDS: 0.9% NaCl VAD Flush IV ×3 (11:59→15:26)
== END ==
PROVIDERS: PCP Nurse Practitioner; Referring Provider Psychiatry & Neurology Neurology; Visit Provider Psychiatry & Neurology Neurology
DX: E71.40 Disorder of carnitine metabolism, unspecified (principal); E78.00 Pure hypercholesterolemia, unspecified; G47.10 Hypersomnia, unspecified
CPT/HCPCS: 96365 ×2; J7040; J7050; A4216

== ENCOUNTER → 2020-06-20 10:55 | Outpatient (CLI) | payer MEDICARE, BC, SELFPAY ==
[2020-02-22 11:04] VITALS: BMI 33.6
[2020-06-04 11:28] VITALS: BMI 33.6
[2020-06-20] MEDS: 0.9% NaCl IVPB Med Flush (250 mL) 15 ML IV (11:00)
[2020-06-20 11:06] VITALS: BP 129/68; PULSE 56; RESP 16; TEMP 35.9; O2SAT 98; BMI 35.2
[2020-06-20] MEDS: 0.9 % NaCl (Sterile) Posiflush 10 mL IV (11:13)
[2020-06-20] MEDS: 0.9% NaCl VAD Flush IV (14:40)
== END ==
PROVIDERS: PCP Nurse Practitioner; Referring Provider Psychiatry & Neurology Neurology; Visit Provider Psychiatry & Neurology Neurology
DX: E71.40 Disorder of carnitine metabolism, unspecified (principal); E78.00 Pure hypercholesterolemia, unspecified; G47.10 Hypersomnia, unspecified
CPT/HCPCS: 96365 ×2; J7040; J7050; A4216

== ENCOUNTER → 2020-06-25 10:55 | Outpatient (CLI) | payer MEDICARE, BC, SELFPAY ==
[2020-06-20 11:06] VITALS: BMI 35.2
[2020-06-25] MEDS: 0.9 % NaCl (Sterile) Posiflush 10 mL IV (11:31)
[2020-06-25] MEDS: 0.9% NaCl IVPB Med Flush (250 mL) 15 ML IV (11:31)
[2020-06-25 11:32] VITALS: BP 128/75; PULSE 55; RESP 16; TEMP 36.4; O2SAT 98; BMI 35.2
[2020-06-25] MEDS: 0.9% NaCl VAD Flush IV ×3 (12:06→15:32)
[2020-06-25 12:09] VITALS: BP 154/76; PULSE 55; RESP 16; O2SAT 97
[2020-06-25 14:40] VITALS: BP 156/85; PULSE 61; RESP 16; TEMP 36.3; O2SAT 61
== END ==
PROVIDERS: PCP Nurse Practitioner; Referring Provider Psychiatry & Neurology Neurology; Visit Provider Psychiatry & Neurology Neurology
DX: E71.40 Disorder of carnitine metabolism, unspecified (principal); E78.00 Pure hypercholesterolemia, unspecified; G47.10 Hypersomnia, unspecified
CPT/HCPCS: 96365 ×2; J7040; J7050; A4216

== ENCOUNTER → 2020-06-28 14:42 | Outpatient (CLI) | payer MEDICARE, BC, SELFPAY ==
[2020-06-20 11:06] VITALS: BMI 35.2
[2020-06-25 11:32] VITALS: BMI 35.2
[2020-06-28 14:49] VITALS: BP 158/88; PULSE 58; RESP 16; TEMP 36.4; O2SAT 98; BMI 35.2
[2020-06-28] MEDS: 0.9 % NaCl (Sterile) Posiflush 10 mL IV (15:02)
[2020-06-28] MEDS: 0.9% NaCl IVPB Med Flush (250 mL) 15 ML IV (15:13)
[2020-06-28] MEDS: 0.9% NaCl VAD Flush IV (15:55)
== END ==
PROVIDERS: PCP Nurse Practitioner; Referring Provider Psychiatry & Neurology Neurology; Visit Provider Psychiatry & Neurology Neurology
DX: E71.40 Disorder of carnitine metabolism, unspecified (principal); E78.00 Pure hypercholesterolemia, unspecified; G47.10 Hypersomnia, unspecified
CPT/HCPCS: 96365; J7040; J7050; A4216

== ENCOUNTER → 2020-07-05 10:44 | Outpatient (CLI) | payer MEDICARE, BC, SELFPAY ==
[2020-06-20 11:06] VITALS: BMI 35.2
[2020-06-28 14:49] VITALS: BMI 35.2
[2020-07-05] MEDS: 0.9% NaCl IVPB Med Flush (250 mL) 15 ML IV (11:08)
[2020-07-05] MEDS: 0.9 % NaCl (Sterile) Posiflush 10 mL IV (11:08)
[2020-07-05 11:09] VITALS: BP 174/89; PULSE 67; RESP 16; TEMP 36.6; O2SAT 98; BMI 35.2
[2020-07-05] MEDS: 0.9% NaCl VAD Flush IV ×3 (12:11→15:24)
[2020-07-05 12:16] VITALS: BP 162/92; PULSE 60; RESP 16; O2SAT 98
== END ==
PROVIDERS: PCP Nurse Practitioner; Referring Provider Psychiatry & Neurology Neurology; Visit Provider Psychiatry & Neurology Neurology
DX: E71.40 Disorder of carnitine metabolism, unspecified (principal); E78.00 Pure hypercholesterolemia, unspecified; G47.10 Hypersomnia, unspecified
CPT/HCPCS: 96365 ×2; J7040; J7050; A4216

== ENCOUNTER → 2020-07-16 14:46 | Outpatient (CLI) | payer MEDICARE, BC, SELFPAY ==
[2020-06-28 14:49] VITALS: BMI 35.2
[2020-07-05 11:09] VITALS: BMI 35.2
[2020-07-16 14:52] VITALS: BP 174/70; PULSE 68; RESP 18; TEMP 36.3; O2SAT 97
[2020-07-16] MEDS: 0.9 % NaCl (Sterile) Posiflush 10 mL IV (14:55)
[2020-07-16] MEDS: 0.9% NaCl IVPB Med Flush (250 mL) 15 ML IV (15:01)
[2020-07-16] MEDS: 0.9% NaCl VAD Flush IV (15:46)
[2020-07-16 15:50] VITALS: BP 163/70; PULSE 62; RESP 16; O2SAT 100
== END ==
PROVIDERS: PCP Nurse Practitioner; Referring Provider Psychiatry & Neurology Neurology; Visit Provider Psychiatry & Neurology Neurology
DX: E71.40 Disorder of carnitine metabolism, unspecified (principal); E78.00 Pure hypercholesterolemia, unspecified; G47.10 Hypersomnia, unspecified
CPT/HCPCS: 96365; J7040; J7050; A4216

== ENCOUNTER → 2020-07-19 14:39 | Outpatient (CLI) | payer MEDICARE, BC, SELFPAY ==
[2020-06-04 11:28] VITALS: BMI 33.6
[2020-07-05 11:09] VITALS: BMI 35.2
[2020-07-19 14:48] VITALS: BP 149/69; PULSE 58; RESP 16; TEMP 37; O2SAT 98; BMI 34.3
[2020-07-19] MEDS: 0.9% NaCl VAD Flush IV ×2 (14:57→15:52)
[2020-07-19] MEDS: 0.9% NaCl IVPB Med Flush (250 mL) 15 ML IV (14:57)
== END ==
PROVIDERS: PCP Nurse Practitioner; Referring Provider Psychiatry & Neurology Neurology; Visit Provider Psychiatry & Neurology Neurology
DX: E71.40 Disorder of carnitine metabolism, unspecified (principal); E78.00 Pure hypercholesterolemia, unspecified; G47.10 Hypersomnia, unspecified
CPT/HCPCS: 96365; J7040; J7050; A4216

== ENCOUNTER → 2020-07-23 13:42 | Outpatient (CLI) | payer MEDICARE, BC, SELFPAY ==
[2020-06-28 14:49] VITALS: BMI 35.2
[2020-07-19 14:48] VITALS: BMI 34.3
[2020-07-23 13:59] VITALS: BP 144/80; PULSE 62; RESP 16; TEMP 35.9; O2SAT 98; BMI 34.3
[2020-07-23] MEDS: 0.9 % NaCl (Sterile) Posiflush 10 mL IV (13:59)
[2020-07-23] MEDS: 0.9% NaCl IVPB Med Flush (250 mL) 15 ML IV (13:59)
[2020-07-23] MEDS: 0.9% NaCl VAD Flush IV (14:52)
[2020-07-23 14:56] VITALS: BP 152/75; PULSE 61; RESP 16; O2SAT 96
== END ==
PROVIDERS: PCP Nurse Practitioner; Referring Provider Psychiatry & Neurology Neurology; Visit Provider Psychiatry & Neurology Neurology
DX: E71.40 Disorder of carnitine metabolism, unspecified (principal); E78.00 Pure hypercholesterolemia, unspecified; G47.10 Hypersomnia, unspecified
CPT/HCPCS: 96365; J7040; J7050; A4216

== ENCOUNTER → 2020-07-25 13:43 | Outpatient (CLI) | payer MEDICARE, BC, SELFPAY ==
[2020-06-28 14:49] VITALS: BMI 35.2
[2020-07-23 13:59] VITALS: BMI 34.3
[2020-07-25 14:00] VITALS: BP 156/81; PULSE 56; RESP 16; TEMP 37; O2SAT 98
[2020-07-25] MEDS: 0.9% NaCl IVPB Med Flush (250 mL) 15 ML IV (14:04)
[2020-07-25] MEDS: 0.9% NaCl VAD Flush IV ×2 (14:04→14:52)
== END ==
PROVIDERS: PCP Nurse Practitioner; Referring Provider Psychiatry & Neurology Neurology; Visit Provider Psychiatry & Neurology Neurology
DX: E71.40 Disorder of carnitine metabolism, unspecified (principal); E78.00 Pure hypercholesterolemia, unspecified; G47.10 Hypersomnia, unspecified
CPT/HCPCS: 96365; J7040; J7050; A4216

== ENCOUNTER → 2020-07-30 10:52 | Outpatient (CLI) | payer MEDICARE, BC, SELFPAY ==
[2020-07-19 14:48] VITALS: BMI 34.3
[2020-07-23 13:59] VITALS: BMI 34.3
[2020-07-30 11:36] VITALS: BP 138/61; PULSE 71; RESP 16; TEMP 35.5; O2SAT 96; BMI 34.3
[2020-07-30] MEDS: 0.9% NaCl IVPB Med Flush (250 mL) 15 ML IV (11:36)
[2020-07-30] MEDS: 0.9% NaCl VAD Flush IV ×4 (11:36→15:43)
[2020-07-30 14:55] VITALS: BP 136/63; PULSE 61; RESP 16; TEMP 35.7; O2SAT 96; BMI 34.3
== END ==
PROVIDERS: PCP Nurse Practitioner; Referring Provider Psychiatry & Neurology Neurology; Visit Provider Psychiatry & Neurology Neurology
DX: E71.40 Disorder of carnitine metabolism, unspecified (principal); E78.00 Pure hypercholesterolemia, unspecified; G47.10 Hypersomnia, unspecified
CPT/HCPCS: 96365 ×2; J7040; J7050; A4216

== ENCOUNTER → 2020-08-02 13:32 | Outpatient (CLI) | payer MEDICARE, BC, SELFPAY ==
[2020-07-19 14:48] VITALS: BMI 34.3
[2020-07-30 14:55] VITALS: BMI 34.3
[2020-08-02] MEDS: 0.9 % NaCl (Sterile) Posiflush 10 mL IV (14:15)
[2020-08-02] MEDS: 0.9% NaCl IVPB Med Flush (250 mL) 15 ML IV (14:15)
[2020-08-02] MEDS: 0.9% NaCl VAD Flush IV ×2 (14:16→14:39)
[2020-08-02 14:29] VITALS: BP 152/61; PULSE 57; RESP 16; TEMP 36.7; O2SAT 100; BMI 34.3
[2020-08-02 15:19] VITALS: BP 181/81; PULSE 64; RESP 16; TEMP 36.5; O2SAT 98
== END ==
PROVIDERS: PCP Nurse Practitioner; Referring Provider Psychiatry & Neurology Neurology; Visit Provider Psychiatry & Neurology Neurology
DX: E71.40 Disorder of carnitine metabolism, unspecified (principal); E78.00 Pure hypercholesterolemia, unspecified; G47.10 Hypersomnia, unspecified
CPT/HCPCS: 96365; J7040; J7050; A4216

== ENCOUNTER 2020-08-13 13:05 | Outpatient (CLI) | payer MEDICARE, BC, SELFPAY ==
[2020-08-02 14:29] VITALS: BMI 34.3
[2020-08-13] MEDS: 0.9 % NaCl (Sterile) Posiflush 10 mL IV (13:20)
[2020-08-13] MEDS: 0.9% NaCl VAD Flush IV (13:25)
[2020-08-13 13:34] VITALS: BP 156/72; PULSE 67; RESP 16; TEMP 35.9; O2SAT 100; BMI 35.2
--- NOTE | 2020-08-13 13:35 | NURSING ---
1325 Pts port noted to have some swelling and puffiness above port site after flushing with 10mL NS. Needle removed from port. Pt instructed to contact Dr. Rockwell's office to have port assessed further.
[2020-08-13] MEDS: 0.9% NaCl IVPB Med Flush (250 mL) 15 ML IV (13:56)
[2020-08-13 14:42] VITALS: BP 173/73; PULSE 58; RESP 18; O2SAT 99
== END 2020-08-13 16:00 ==
LOC: MEDOUTP 13:06
PROVIDERS: PCP Nurse Practitioner; Referring Provider Psychiatry & Neurology Neurology; Visit Provider Psychiatry & Neurology Neurology
DX: E71.40 Disorder of carnitine metabolism, unspecified (principal); E78.00 Pure hypercholesterolemia, unspecified; G47.10 Hypersomnia, unspecified
CPT/HCPCS: 96365; J7040; J7050; A4216

== ENCOUNTER 2020-08-16 13:44 | Outpatient (CLI) | payer MEDICARE, BC, SELFPAY ==
[2020-08-02 14:29] VITALS: BMI 34.3
[2020-08-16 13:50] VITALS: BP 157/78; PULSE 66; RESP 16; TEMP 35.7; O2SAT 100; BMI 35.2
[2020-08-16] MEDS: 0.9% NaCl VAD Flush IV (14:00)
[2020-08-16] MEDS: 0.9% NaCl IVPB Med Flush (250 mL) 15 ML IV (14:03)
[2020-08-16 15:02] VITALS: BP 163/77; PULSE 64; RESP 16; O2SAT 98
== END 2020-08-16 16:00 | disposition home or self-care (01) ==
LOC: MEDOUTP 13:45
PROVIDERS: PCP Nurse Practitioner; Referring Provider Psychiatry & Neurology Neurology; Visit Provider Psychiatry & Neurology Neurology
DX: E71.40 Disorder of carnitine metabolism, unspecified (principal); E78.00 Pure hypercholesterolemia, unspecified; G47.10 Hypersomnia, unspecified
CPT/HCPCS: 96365; J7040; J7050; A4216

== ENCOUNTER 2020-08-23 13:49 | Outpatient (CLI) | payer MEDICARE, BC, SELFPAY ==
[2020-08-02 14:29] VITALS: BMI 34.3
[2020-08-23 13:57] VITALS: BP 152/79; PULSE 64; RESP 14; TEMP 36.6; O2SAT 99; BMI 35.2
[2020-08-23] MEDS: 0.9% NaCl IVPB Med Flush (250 mL) 15 ML IV (14:16)
[2020-08-23] MEDS: 0.9% NaCl VAD Flush IV (14:16)
== END 2020-08-23 16:30 | disposition home or self-care (01) ==
LOC: MEDOUTP 13:50
PROVIDERS: PCP Nurse Practitioner; Referring Provider Psychiatry & Neurology Neurology; Visit Provider Psychiatry & Neurology Neurology
DX: E71.40 Disorder of carnitine metabolism, unspecified (principal); E78.00 Pure hypercholesterolemia, unspecified; G47.10 Hypersomnia, unspecified
CPT/HCPCS: 96365; J7040; J7050; A4216

== ENCOUNTER → 2020-08-27 10:48 | Outpatient (CLI) | payer MEDICARE, BC, SELFPAY ==
[2020-08-23 13:57] VITALS: BMI 35.2
[2020-08-27 11:00] VITALS: BP 142/75; PULSE 60; RESP 16; TEMP 35.9; O2SAT 96; BMI 35.2
[2020-08-27] MEDS: 0.9% NaCl VAD Flush IV ×2 (11:21→14:27)
[2020-08-27] MEDS: 0.9% NaCl IVPB Med Flush (250 mL) 15 ML IV (11:24)
[2020-08-27 12:05] VITALS: BP 146/83; PULSE 60; RESP 16; O2SAT 98
[2020-08-27 14:32] VITALS: BP 143/75; PULSE 63; RESP 16; O2SAT 98
[2020-08-27 15:11] VITALS: BP 143/69; PULSE 64; RESP 16; O2SAT 98
== END ==
PROVIDERS: PCP Nurse Practitioner; Referring Provider Psychiatry & Neurology Neurology; Visit Provider Psychiatry & Neurology Neurology
DX: E71.40 Disorder of carnitine metabolism, unspecified (principal); E78.00 Pure hypercholesterolemia, unspecified; G47.10 Hypersomnia, unspecified
CPT/HCPCS: 96365 ×2; J7040; J7050; A4216

== ENCOUNTER → 2020-08-30 09:52 | Outpatient (CLI) | payer MEDICARE, BC, SELFPAY ==
[2020-08-27 11:00] VITALS: BMI 35.2
--- NOTE | 2020-08-30 10:20 | RAD_ITS ---
STUDY: MEDIPORT OPACIFICATION REASON FOR EXAM: Female, 70 years old. MediPort dysfunction FLUOROSCOPY TIME (if supplied): (0:15) minutes/seconds. DAP = [id number] TECHNIQUE: Intraoperative fluoroscopy. For intraoperative views. COMPARISON: None. FINDINGS: There is opacification of the Mediport. There is contrast leak around the MediPort chamber. Most likely due to defect in the chamber. The catheter tip is at the upper part of the right atrium is in good position. There is a filling defect in the Mediport chamber may represent a blood clot measures approximately 3 mm. RAD/Con Inj Marlon Eval CVP Inc Fluro IMPRESSION: There is contrast leak around the MediPort chamber. Most likely due to defect in the chamber. Electronically Signed: Merlin Ly MD at 7:21 EDT Tel , Service support ,
== END ==
PROVIDERS: PCP Nurse Practitioner; Visit Provider Surgery
DX: Z45.2 Encounter for adjustment and management of vascular access device (principal); E71.40 Disorder of carnitine metabolism, unspecified; E78.00 Pure hypercholesterolemia, unspecified; G47.10 Hypersomnia, unspecified
CPT/HCPCS: 96365; 96366; 36598; J7040; J7050; A4216

== ENCOUNTER → 2020-08-30 11:02 | Outpatient (CLI) | payer MEDICARE, BC, SELFPAY ==
[2020-08-23 13:57] VITALS: BMI 35.2
[2020-08-27 11:00] VITALS: BMI 35.2
[2020-08-30 11:23] VITALS: BP 163/73; PULSE 73; RESP 16; TEMP 36.9; O2SAT 100
[2020-08-30] MEDS: 0.9% NaCl VAD Flush IV (11:29)
[2020-08-30] MEDS: 0.9% NaCl IVPB Med Flush (250 mL) 15 ML IV (11:29)
[2020-08-30 12:23] VITALS: BP 142/62; PULSE 60; RESP 16; O2SAT 99
[2020-08-30 15:20] VITALS: BP 136/64; PULSE 78
== END ==
PROVIDERS: PCP Nurse Practitioner; Referring Provider Psychiatry & Neurology Neurology; Visit Provider Psychiatry & Neurology Neurology
DX: E71.40 Disorder of carnitine metabolism, unspecified (principal); E78.00 Pure hypercholesterolemia, unspecified; G47.10 Hypersomnia, unspecified
CPT/HCPCS: J7040; J7050; A4216

== ENCOUNTER → 2020-09-03 10:59 | Outpatient (CLI) | payer MEDICARE, BC, SELFPAY ==
[2020-08-27 11:00] VITALS: BMI 35.2
[2020-09-03] MEDS: 0.9% NaCl VAD Flush IV ×2 (11:10→14:37)
[2020-09-03 11:16] VITALS: BP 137/67; PULSE 65; RESP 16; TEMP 36.5; O2SAT 98; BMI 35.2
[2020-09-03] MEDS: 0.9% NaCl IVPB Med Flush (250 mL) 15 ML IV (11:39)
== END ==
PROVIDERS: PCP Nurse Practitioner; Referring Provider Psychiatry & Neurology Neurology; Visit Provider Psychiatry & Neurology Neurology
DX: E71.40 Disorder of carnitine metabolism, unspecified (principal); E78.00 Pure hypercholesterolemia, unspecified; G47.10 Hypersomnia, unspecified
CPT/HCPCS: 96365 ×2; J7040; J7050; A4216

== ENCOUNTER → 2020-09-06 10:48 | Outpatient (CLI) | payer MEDICARE, BC, SELFPAY ==
[2020-08-23 13:57] VITALS: BMI 35.2
[2020-09-03 11:16] VITALS: BMI 35.2
[2020-09-06 11:14] VITALS: BP 135/74; PULSE 57; RESP 16; TEMP 36.2; O2SAT 97; BMI 35.2
[2020-09-06] MEDS: 0.9% NaCl VAD Flush IV ×2 (11:20→14:47)
[2020-09-06] MEDS: 0.9% NaCl IVPB Med Flush (250 mL) 15 ML IV (11:24)
[2020-09-06 15:33] VITALS: BP 131/66; PULSE 68; RESP 16; TEMP 36.4; O2SAT 99
== END ==
PROVIDERS: PCP Nurse Practitioner; Referring Provider Psychiatry & Neurology Neurology; Visit Provider Psychiatry & Neurology Neurology
DX: E71.40 Disorder of carnitine metabolism, unspecified (principal); E78.00 Pure hypercholesterolemia, unspecified; G47.10 Hypersomnia, unspecified
CPT/HCPCS: 96365 ×2; J7040; J7050; A4216

== ENCOUNTER → 2020-09-13 10:41 | Outpatient (CLI) | payer MEDICARE, BC, SELFPAY ==
[2020-08-27 11:00] VITALS: BMI 35.2
[2020-09-06 11:14] VITALS: BMI 35.2
[2020-09-13 11:03] VITALS: BP 141/67; PULSE 62; RESP 18; TEMP 36.4; O2SAT 97; BMI 35.2
[2020-09-13] MEDS: 0.9% NaCl VAD Flush IV ×2 (11:09→14:23)
[2020-09-13] MEDS: 0.9% NaCl IVPB Med Flush (250 mL) 15 ML IV (11:10)
[2020-09-13 15:07] VITALS: BP 153/62; PULSE 62
== END ==
PROVIDERS: PCP Nurse Practitioner; Referring Provider Psychiatry & Neurology Neurology; Visit Provider Psychiatry & Neurology Neurology
DX: E71.40 Disorder of carnitine metabolism, unspecified (principal); E78.00 Pure hypercholesterolemia, unspecified; G47.10 Hypersomnia, unspecified
CPT/HCPCS: 96365 ×2; J7040; J7050; A4216

== ENCOUNTER → 2020-09-17 14:07 | Outpatient (CLI) | payer MEDICARE, BC, SELFPAY ==
[2020-08-27 11:00] VITALS: BMI 35.2
[2020-09-13 11:03] VITALS: BMI 35.2
[2020-09-17 14:12] VITALS: BP 152/79; PULSE 66; RESP 18; TEMP 35.6; O2SAT 96
[2020-09-17] MEDS: 0.9% NaCl VAD Flush IV (14:22)
[2020-09-17] MEDS: 0.9% NaCl IVPB Med Flush (250 mL) 15 ML IV (14:24)
== END ==
PROVIDERS: PCP Nurse Practitioner; Referring Provider Psychiatry & Neurology Neurology; Visit Provider Psychiatry & Neurology Neurology
DX: E71.40 Disorder of carnitine metabolism, unspecified (principal); E78.00 Pure hypercholesterolemia, unspecified; G47.10 Hypersomnia, unspecified
CPT/HCPCS: 96365; J7040; J7050; A4216

== ENCOUNTER → 2020-09-20 14:18 | Outpatient (CLI) | payer MEDICARE, BC, SELFPAY ==
[2020-09-06 11:14] VITALS: BMI 35.2
[2020-09-13 11:03] VITALS: BMI 35.2
[2020-09-20 14:19] VITALS: BP 153/74; PULSE 61; RESP 16; TEMP 36.3; O2SAT 100; BMI 35.2
[2020-09-20] MEDS: 0.9% NaCl IVPB Med Flush (250 mL) 15 ML IV (14:45)
[2020-09-20] MEDS: 0.9% NaCl VAD Flush IV (14:45)
[2020-09-20 15:27] VITALS: BP 175/76; PULSE 58; RESP 16; TEMP 35.7; O2SAT 99
== END ==
PROVIDERS: PCP Nurse Practitioner; Referring Provider Psychiatry & Neurology Neurology; Visit Provider Psychiatry & Neurology Neurology
DX: E71.40 Disorder of carnitine metabolism, unspecified (principal); E78.00 Pure hypercholesterolemia, unspecified; G47.10 Hypersomnia, unspecified
CPT/HCPCS: 96365; J7040; J7050; A4216

== ENCOUNTER 2020-09-24 14:43 | Outpatient (CLI) | payer MEDICARE, BC, SELFPAY ==
[2020-09-20 14:19] VITALS: BMI 35.2
[2020-09-24 14:50] VITALS: BP 153/76; PULSE 61; RESP 16; TEMP 36.6; O2SAT 98
[2020-09-24] MEDS: 0.9% NaCl VAD Flush IV (14:56)
[2020-09-24] MEDS: 0.9% NaCl IVPB Med Flush (250 mL) 15 ML IV (15:18)
[2020-09-24 16:13] VITALS: BP 161/69; PULSE 64; RESP 16; TEMP 36.4; O2SAT 100
== END 2020-09-24 17:00 | disposition home or self-care (01) ==
LOC: MEDOUTP 14:44
PROVIDERS: PCP Nurse Practitioner; Referring Provider Psychiatry & Neurology Neurology; Visit Provider Psychiatry & Neurology Neurology
DX: E71.40 Disorder of carnitine metabolism, unspecified (principal); E78.00 Pure hypercholesterolemia, unspecified; G47.10 Hypersomnia, unspecified
CPT/HCPCS: 96365; J7040; J7050; A4216

== ENCOUNTER → 2020-09-27 14:18 | Outpatient (CLI) | payer MEDICARE, BC, SELFPAY ==
[2020-09-20 14:19] VITALS: BMI 35.2
[2020-09-27] MEDS: 0.9% NaCl VAD Flush IV (14:25)
[2020-09-27] MEDS: 0.9% NaCl IVPB Med Flush (250 mL) 15 ML IV (14:26)
[2020-09-27 14:27] VITALS: BP 138/66; PULSE 68; RESP 16; TEMP 36.7; O2SAT 96
[2020-09-27 15:14] VITALS: BP 132/51; PULSE 71; RESP 16; O2SAT 99
== END ==
PROVIDERS: PCP Nurse Practitioner; Referring Provider Psychiatry & Neurology Neurology; Visit Provider Psychiatry & Neurology Neurology
DX: E71.40 Disorder of carnitine metabolism, unspecified (principal); E78.00 Pure hypercholesterolemia, unspecified; G47.10 Hypersomnia, unspecified
CPT/HCPCS: 96365; J7040; J7050; A4216

== ENCOUNTER 2020-10-04 14:23 | Outpatient (CLI) | payer MEDICARE, BC, SELFPAY ==
[2020-09-20 14:19] VITALS: BMI 35.2
[2020-10-04 14:39] VITALS: BP 157/92; PULSE 67; RESP 16; TEMP 36.9; O2SAT 96; BMI 35.2
[2020-10-04] MEDS: 0.9% NaCl IVPB Med Flush (250 mL) 15 ML IV (14:41)
[2020-10-04] MEDS: 0.9% NaCl VAD Flush IV ×2 (14:42→15:20)
== END 2020-10-04 15:56 | disposition home or self-care (01) ==
LOC: MEDOUTP 14:23
PROVIDERS: PCP Nurse Practitioner; Visit Provider Psychiatry & Neurology Neurology
DX: E71.40 Disorder of carnitine metabolism, unspecified (principal); E78.00 Pure hypercholesterolemia, unspecified; G47.10 Hypersomnia, unspecified
CPT/HCPCS: 96365; J7040; J7050; A4216

== ENCOUNTER 2020-10-08 14:07 | Outpatient (CLI) | payer MEDICARE, BC, SELFPAY ==
[2020-09-20 14:19] VITALS: BMI 35.2
[2020-10-08] MEDS: 0.9% NaCl VAD Flush IV ×2 (14:20→15:21)
[2020-10-08] MEDS: 0.9% NaCl IVPB Med Flush (250 mL) 15 ML IV (14:30)
[2020-10-08 15:08] VITALS: BMI 35.2
[2020-10-08 15:30] VITALS: BP 143/79; PULSE 63; RESP 16; TEMP 36.5; O2SAT 98
== END 2020-10-08 17:00 ==
LOC: MEDOUTP 14:08
PROVIDERS: PCP Nurse Practitioner; Referring Provider Psychiatry & Neurology Neurology; Visit Provider Psychiatry & Neurology Neurology
DX: E71.40 Disorder of carnitine metabolism, unspecified (principal); E78.00 Pure hypercholesterolemia, unspecified; G47.10 Hypersomnia, unspecified
CPT/HCPCS: 96365; J7040; J7050; A4216

== ENCOUNTER → 2020-10-11 14:01 | Outpatient (CLI) | payer MEDICARE, BC, SELFPAY ==
[2020-09-20 14:19] VITALS: BMI 35.2
[2020-10-08 15:08] VITALS: BMI 35.2
[2020-10-11] MEDS: 0.9% NaCl VAD Flush IV ×2 (14:06→14:58)
[2020-10-11] MEDS: 0.9% NaCl IVPB Med Flush (250 mL) 15 ML IV (14:06)
[2020-10-11 14:18] VITALS: BP 149/71; PULSE 62; RESP 16; TEMP 36.3; O2SAT 96; BMI 36.0
[2020-10-11 15:03] VITALS: BP 144/67; PULSE 65; RESP 16; TEMP 36.3; O2SAT 97
== END ==
PROVIDERS: PCP Nurse Practitioner; Referring Provider Psychiatry & Neurology Neurology; Visit Provider Psychiatry & Neurology Neurology
DX: E71.40 Disorder of carnitine metabolism, unspecified (principal); E78.00 Pure hypercholesterolemia, unspecified; G47.10 Hypersomnia, unspecified
CPT/HCPCS: 96365; J7040; J7050; A4216

== ENCOUNTER → 2020-10-15 14:21 | Outpatient (CLI) | payer MEDICARE, BC, SELFPAY ==
[2020-09-20 14:19] VITALS: BMI 35.2
[2020-10-11 14:18] VITALS: BMI 36.0
[2020-10-15 14:38] VITALS: BP 131/51; PULSE 65; RESP 16; TEMP 36.4; O2SAT 98; BMI 35.5
[2020-10-15] MEDS: 0.9% NaCl VAD Flush IV ×2 (14:45→15:30)
[2020-10-15] MEDS: 0.9% NaCl IVPB Med Flush (250 mL) 15 ML IV (14:50)
[2020-10-15 15:34] VITALS: BP 135/55; PULSE 69; RESP 16; TEMP 36.6; O2SAT 96
== END ==
PROVIDERS: PCP Nurse Practitioner; Referring Provider Psychiatry & Neurology Neurology; Visit Provider Psychiatry & Neurology Neurology
DX: E71.40 Disorder of carnitine metabolism, unspecified (principal); E78.00 Pure hypercholesterolemia, unspecified; G47.10 Hypersomnia, unspecified
CPT/HCPCS: 96365; J7040; J7050; A4216

== ENCOUNTER → 2020-10-18 14:22 | Outpatient (CLI) | payer MEDICARE, BC, SELFPAY ==
[2020-09-20 14:19] VITALS: BMI 35.2
[2020-10-15 14:38] VITALS: BMI 35.5
[2020-10-18] MEDS: 0.9% NaCl VAD Flush IV ×2 (14:26→15:12)
[2020-10-18] MEDS: 0.9% NaCl IVPB Med Flush (250 mL) 15 ML IV (14:26)
[2020-10-18 14:33] VITALS: BP 152/83; PULSE 59; RESP 16; TEMP 36; O2SAT 98; BMI 34.4
[2020-10-18 15:14] VITALS: BP 143/65; PULSE 63; RESP 16; TEMP 35.9; O2SAT 97
== END ==
PROVIDERS: PCP Nurse Practitioner; Referring Provider Psychiatry & Neurology Neurology; Visit Provider Psychiatry & Neurology Neurology
DX: E71.40 Disorder of carnitine metabolism, unspecified (principal); E78.00 Pure hypercholesterolemia, unspecified; G47.10 Hypersomnia, unspecified
CPT/HCPCS: 96365; J7040; J7050; A4216

== ENCOUNTER → 2020-10-22 14:25 | Outpatient (CLI) | payer MEDICARE, BC, SELFPAY ==
[2020-10-11 14:18] VITALS: BMI 36.0
[2020-10-18 14:33] VITALS: BMI 34.4
[2020-10-22] MEDS: 0.9% NaCl VAD Flush IV ×2 (14:37→15:32)
[2020-10-22 14:54] VITALS: BP 150/75; PULSE 61; RESP 16; TEMP 36.2; O2SAT 97; BMI 34.3
[2020-10-22 15:35] VITALS: BP 145/67; PULSE 62
== END ==
PROVIDERS: PCP Nurse Practitioner; Referring Provider Psychiatry & Neurology Neurology; Visit Provider Psychiatry & Neurology Neurology
DX: E71.40 Disorder of carnitine metabolism, unspecified (principal); E78.00 Pure hypercholesterolemia, unspecified; G47.10 Hypersomnia, unspecified
CPT/HCPCS: 96365; J7040; A4216

== ENCOUNTER → 2020-10-25 10:52 | Outpatient (CLI) | payer MEDICARE, BC, SELFPAY ==
[2020-10-11 14:18] VITALS: BMI 36.0
[2020-10-22 14:54] VITALS: BMI 34.3
[2020-10-25] MEDS: 0.9% NaCl IVPB Med Flush (250 mL) 15 ML IV (11:19)
[2020-10-25] MEDS: 0.9 % NaCl (Sterile) Posiflush 10 mL IV (11:19)
[2020-10-25 11:24] VITALS: BP 178/76; PULSE 57; RESP 16; TEMP 36.1; O2SAT 100; BMI 34.3
[2020-10-25] MEDS: 0.9% NaCl VAD Flush IV ×4 (11:59→15:28)
[2020-10-25 12:02] VITALS: BP 141/60; PULSE 55; RESP 16; TEMP 35.9; O2SAT 100
[2020-10-25 14:42] VITALS: BP 134/78; PULSE 63; RESP 16; O2SAT 96
[2020-10-25 15:29] VITALS: BP 178/76; PULSE 57; RESP 16; TEMP 36.1; O2SAT 100
== END ==
PROVIDERS: PCP Nurse Practitioner; Referring Provider Psychiatry & Neurology Neurology; Visit Provider Psychiatry & Neurology Neurology
DX: E71.40 Disorder of carnitine metabolism, unspecified (principal); E78.00 Pure hypercholesterolemia, unspecified; G47.10 Hypersomnia, unspecified
CPT/HCPCS: 96365 ×2; J7040; J7050; A4216

== ENCOUNTER → 2020-10-29 10:53 | Outpatient (CLI) | payer MEDICARE, BC, SELFPAY ==
[2020-10-11 14:18] VITALS: BMI 36.0
[2020-10-25 11:24] VITALS: BMI 34.3
[2020-10-29 11:20] VITALS: BP 143/67; PULSE 59; RESP 16; TEMP 36.8; O2SAT 96; BMI 33.5
[2020-10-29] MEDS: 0.9 % NaCl (Sterile) Posiflush 10 mL IV (11:20)
[2020-10-29] MEDS: 0.9% NaCl IVPB Med Flush (250 mL) 15 ML IV (11:20)
[2020-10-29 12:23] VITALS: BP 150/95; PULSE 66; RESP 16; TEMP 36.8; O2SAT 97
[2020-10-29] MEDS: 0.9% NaCl VAD Flush IV ×3 (12:25→15:39)
[2020-10-29 14:53] VITALS: BP 156/68; PULSE 62; RESP 18; TEMP 36.4; O2SAT 98
== END ==
PROVIDERS: PCP Nurse Practitioner; Referring Provider Psychiatry & Neurology Neurology; Visit Provider Psychiatry & Neurology Neurology
DX: E71.40 Disorder of carnitine metabolism, unspecified (principal); E78.00 Pure hypercholesterolemia, unspecified; G47.10 Hypersomnia, unspecified
CPT/HCPCS: 96365 ×2; J7040; J7050; A4216

== ENCOUNTER → 2020-11-01 10:54 | Outpatient (CLI) | payer MEDICARE, BC, SELFPAY ==
[2020-10-11 14:18] VITALS: BMI 36.0
[2020-10-29 11:20] VITALS: BMI 33.5
[2020-11-01 11:03] VITALS: BP 145/74; PULSE 61; RESP 16; TEMP 36.2; O2SAT 99
[2020-11-01] MEDS: 0.9% NaCl IVPB Med Flush (250 mL) 15 ML IV (11:13)
[2020-11-01] MEDS: 0.9 % NaCl (Sterile) Posiflush 10 mL IV (11:14)
[2020-11-01] MEDS: 0.9% NaCl VAD Flush IV ×3 (12:03→15:56)
[2020-11-01 12:06] VITALS: BP 144/72; PULSE 65; RESP 16; O2SAT 98
[2020-11-01 16:02] VITALS: BP 150/104; PULSE 72; RESP 16; TEMP 36.9; O2SAT 97
== END ==
PROVIDERS: PCP Nurse Practitioner; Referring Provider Psychiatry & Neurology Neurology; Visit Provider Psychiatry & Neurology Neurology
DX: E71.40 Disorder of carnitine metabolism, unspecified (principal); E80.0 Hereditary erythropoietic porphyria; G47.10 Hypersomnia, unspecified
CPT/HCPCS: 96365 ×2; J7040; J7050; A4216

== ENCOUNTER → 2020-11-12 11:04 | Outpatient (CLI) | payer MEDICARE, BC, SELFPAY ==
[2020-10-11 14:18] VITALS: BMI 36.0
[2020-10-29 11:20] VITALS: BMI 33.5
[2020-11-12 11:19] VITALS: BP 137/114; PULSE 66; RESP 16; TEMP 36.6; O2SAT 97; BMI 35.3
[2020-11-12] MEDS: 0.9 % NaCl (Sterile) Posiflush 10 mL IV (11:23)
[2020-11-12] MEDS: 0.9% NaCl IVPB Med Flush (250 mL) 15 ML IV (11:30)
[2020-11-12] MEDS: 0.9% NaCl VAD Flush IV ×2 (12:10→14:32)
[2020-11-12 12:14] VITALS: BP 145/64; PULSE 62; RESP 16; TEMP 36.5; O2SAT 98
[2020-11-12 14:33] VITALS: BP 136/73; PULSE 68; RESP 16; TEMP 35.8; O2SAT 98; BMI 35.3
[2020-11-12 15:09] VITALS: BP 148/58; PULSE 66; RESP 16; TEMP 35.7; O2SAT 97
== END ==
PROVIDERS: PCP Nurse Practitioner; Referring Provider Psychiatry & Neurology Neurology; Visit Provider Psychiatry & Neurology Neurology
DX: E71.40 Disorder of carnitine metabolism, unspecified (principal); E78.00 Pure hypercholesterolemia, unspecified; G47.10 Hypersomnia, unspecified
CPT/HCPCS: 96365 ×2; J7040; J7050; A4216

== ENCOUNTER → 2020-11-15 14:28 | Outpatient (CLI) | payer MEDICARE, BC, SELFPAY ==
[2020-10-11 14:18] VITALS: BMI 36.0
[2020-11-12 14:33] VITALS: BMI 35.3
[2020-11-15] MEDS: 0.9 % NaCl (Sterile) Posiflush 10 mL IV (14:36)
[2020-11-15 14:40] VITALS: BP 138/74; PULSE 60; RESP 16; TEMP 36.6; O2SAT 100
[2020-11-15] MEDS: 0.9% NaCl IVPB Med Flush (250 mL) 15 ML IV (14:44)
[2020-11-15 15:22] VITALS: BP 123/76; PULSE 60; RESP 16; TEMP 36.4; O2SAT 100
[2020-11-15] MEDS: 0.9% NaCl VAD Flush IV (15:30)
== END ==
PROVIDERS: PCP Nurse Practitioner; Referring Provider Psychiatry & Neurology Neurology; Visit Provider Psychiatry & Neurology Neurology
DX: E71.40 Disorder of carnitine metabolism, unspecified (principal); E78.00 Pure hypercholesterolemia, unspecified; G47.10 Hypersomnia, unspecified
CPT/HCPCS: 96365; J7040; J7050; A4216

== ENCOUNTER → 2020-11-20 10:21 | Outpatient (CLI) | payer MEDICARE, BC, SELFPAY ==
[2020-11-12 14:33] VITALS: BMI 35.3
[2020-11-20] MEDS: 0.9 % NaCl (Sterile) Posiflush 10 mL IV (10:36)
[2020-11-20] MEDS: 0.9% NaCl IVPB Med Flush (250 mL) 15 ML IV (10:36)
[2020-11-20] MEDS: 0.9% NaCl VAD Flush IV ×4 (10:37→15:40)
[2020-11-20 10:39] VITALS: BP 143/67; PULSE 62; RESP 16; TEMP 36.9; O2SAT 97; BMI 35.3
[2020-11-20 15:45] VITALS: BP 136/75
== END ==
PROVIDERS: PCP Nurse Practitioner; Referring Provider Psychiatry & Neurology Neurology; Visit Provider Psychiatry & Neurology Neurology
DX: E71.40 Disorder of carnitine metabolism, unspecified (principal)
CPT/HCPCS: 96365 ×2; J7040; J7050; A4216

== ENCOUNTER → 2020-11-26 09:46 | Outpatient (CLI) | payer MEDICARE, BC, SELFPAY ==
[2020-11-12 14:33] VITALS: BMI 35.3
[2020-11-20 10:39] VITALS: BMI 35.3
[2020-11-26] MEDS: 0.9 % NaCl (Sterile) Posiflush 10 mL IV (09:52)
[2020-11-26 09:56] VITALS: BP 148/76; PULSE 66; RESP 16; TEMP 35.8; O2SAT 98; BMI 35.2
[2020-11-26] MEDS: 0.9% NaCl IVPB Med Flush (250 mL) 15 ML IV (09:56)
[2020-11-26 11:09] VITALS: BP 153/70; PULSE 57; RESP 16; TEMP 35.9; O2SAT 98
[2020-11-26 14:05] VITALS: BP 139/80; PULSE 66; RESP 16; O2SAT 95; BMI 35.2
[2020-11-26] MEDS: 0.9% NaCl VAD Flush IV (14:07)
[2020-11-26 14:43] VITALS: BP 123/59; PULSE 63; RESP 16; O2SAT 97
== END ==
PROVIDERS: PCP Nurse Practitioner; Referring Provider Psychiatry & Neurology Neurology; Visit Provider Psychiatry & Neurology Neurology
DX: E71.40 Disorder of carnitine metabolism, unspecified (principal); E78.00 Pure hypercholesterolemia, unspecified; G47.10 Hypersomnia, unspecified
CPT/HCPCS: 96365 ×2; J7040; J7050; A4216

== ENCOUNTER → 2020-11-29 10:42 | Outpatient (CLI) | payer MEDICARE, BC, SELFPAY ==
[2020-11-26 14:05] VITALS: BMI 35.2
[2020-11-29 10:57] VITALS: BP 143/71; PULSE 60; RESP 16; TEMP 36.3; O2SAT 96; BMI 35.2
[2020-11-29] MEDS: 0.9% NaCl IVPB Med Flush (250 mL) 15 ML IV (11:10)
[2020-11-29] MEDS: 0.9 % NaCl (Sterile) Posiflush 10 mL IV ×2 (11:10→15:05)
[2020-11-29 11:52] VITALS: BP 134/90; PULSE 66; RESP 16; TEMP 35.7
[2020-11-29] MEDS: 0.9% NaCl VAD Flush IV ×5 (11:52→15:40)
[2020-11-29 15:38] VITALS: BP 148/75; PULSE 63; RESP 16; TEMP 35.7
== END ==
PROVIDERS: PCP Nurse Practitioner; Referring Provider Psychiatry & Neurology Neurology; Visit Provider Psychiatry & Neurology Neurology
DX: E71.40 Disorder of carnitine metabolism, unspecified (principal); E78.00 Pure hypercholesterolemia, unspecified; G47.10 Hypersomnia, unspecified
CPT/HCPCS: 96365 ×2; J7040; J7050; A4216

== ENCOUNTER → 2020-12-03 14:02 | Outpatient (CLI) | payer MEDICARE, BC, SELFPAY ==
[2020-11-26 14:05] VITALS: BMI 35.2
[2020-11-29 10:57] VITALS: BMI 35.2
[2020-12-03] MEDS: 0.9 % NaCl (Sterile) Posiflush 10 mL IV (14:39)
[2020-12-03] MEDS: 0.9% NaCl VAD Flush IV ×2 (14:43→15:37)
[2020-12-03] MEDS: 0.9% NaCl IVPB Med Flush (250 mL) 15 ML IV (14:46)
[2020-12-03 14:49] VITALS: BP 138/77; PULSE 58; RESP 16; TEMP 36.4; O2SAT 97
[2020-12-03 15:41] VITALS: BP 132/54; PULSE 72; RESP 16; TEMP 36.5; O2SAT 99
== END ==
PROVIDERS: PCP Nurse Practitioner; Referring Provider Psychiatry & Neurology Neurology; Visit Provider Psychiatry & Neurology Neurology
DX: E71.40 Disorder of carnitine metabolism, unspecified (principal); E78.00 Pure hypercholesterolemia, unspecified; G47.10 Hypersomnia, unspecified
CPT/HCPCS: 96365; J7040; J7050; A4216

== ENCOUNTER → 2020-12-10 14:25 | Outpatient (CLI) | payer MEDICARE, BC, SELFPAY ==
[2020-11-26 14:05] VITALS: BMI 35.2
[2020-11-29 10:57] VITALS: BMI 35.2
[2020-12-10 14:38] VITALS: BP 149/79; PULSE 59; RESP 16; TEMP 36.4; O2SAT 98; BMI 34.0
[2020-12-10] MEDS: 0.9% NaCl IVPB Med Flush (250 mL) 15 ML IV (14:46)
[2020-12-10] MEDS: 0.9 % NaCl (Sterile) Posiflush 10 mL IV (14:46)
== END ==
PROVIDERS: PCP Nurse Practitioner; Referring Provider Psychiatry & Neurology Neurology; Visit Provider Psychiatry & Neurology Neurology
DX: E71.40 Disorder of carnitine metabolism, unspecified (principal); E78.00 Pure hypercholesterolemia, unspecified; G47.10 Hypersomnia, unspecified
CPT/HCPCS: 96365; J7040; J7050

== ENCOUNTER → 2020-12-13 10:52 | Outpatient (CLI) | payer MEDICARE, BC, SELFPAY ==
[2020-11-26 14:05] VITALS: BMI 35.2
[2020-12-10 14:38] VITALS: BMI 34.0
[2020-12-13 10:59] VITALS: BP 138/61; PULSE 68; RESP 16; TEMP 36.2; O2SAT 98
[2020-12-13] MEDS: 0.9% NaCl IVPB Med Flush (250 mL) 15 ML IV (11:11)
[2020-12-13] MEDS: 0.9 % NaCl (Sterile) Posiflush 10 mL IV ×2 (11:11→14:33)
[2020-12-13] MEDS: 0.9% NaCl VAD Flush IV ×2 (11:59→15:15)
[2020-12-13 14:41] VITALS: BP 152/61; PULSE 64; RESP 16; TEMP 36.5; O2SAT 100; BMI 34.0
== END ==
PROVIDERS: PCP Nurse Practitioner; Referring Provider Psychiatry & Neurology Neurology; Visit Provider Psychiatry & Neurology Neurology
DX: E71.40 Disorder of carnitine metabolism, unspecified (principal); E78.00 Pure hypercholesterolemia, unspecified; G47.10 Hypersomnia, unspecified
CPT/HCPCS: 96365 ×2; J7040; J7050; A4216

== ENCOUNTER → 2020-12-17 10:51 | Outpatient (CLI) | payer MEDICARE, BC, SELFPAY ==
[2020-11-26 14:05] VITALS: BMI 35.2
[2020-12-13 14:41] VITALS: BMI 34.0
[2020-12-17] MEDS: 0.9 % NaCl (Sterile) Posiflush 10 mL IV (10:57)
[2020-12-17] MEDS: 0.9% NaCl IVPB Med Flush (250 mL) 15 ML IV (10:57)
[2020-12-17 11:03] VITALS: BP 152/75; PULSE 60; RESP 16; TEMP 36.6; O2SAT 99; BMI 32.9
[2020-12-17 11:57] VITALS: BP 138/72; PULSE 57; RESP 16; TEMP 36.6
[2020-12-17] MEDS: 0.9% NaCl VAD Flush IV ×2 (12:00→14:32)
[2020-12-17 14:30] VITALS: BP 126/67; PULSE 68; RESP 16; O2SAT 97
[2020-12-17 15:13] VITALS: BP 128/69; PULSE 60; RESP 16; TEMP 35.6
== END ==
PROVIDERS: PCP Nurse Practitioner; Referring Provider Psychiatry & Neurology Neurology; Visit Provider Psychiatry & Neurology Neurology
DX: E71.40 Disorder of carnitine metabolism, unspecified (principal); E78.00 Pure hypercholesterolemia, unspecified; G47.10 Hypersomnia, unspecified
CPT/HCPCS: 96365 ×2; J7040; J7050; A4216

== ENCOUNTER → 2020-12-20 10:46 | Outpatient (CLI) | payer MEDICARE, BC, SELFPAY ==
[2020-12-13 14:41] VITALS: BMI 34.0
[2020-12-17 11:03] VITALS: BMI 32.9
[2020-12-20] MEDS: 0.9 % NaCl (Sterile) Posiflush 10 mL IV (10:50)
[2020-12-20 10:54] VITALS: BP 142/65; PULSE 59; RESP 16; TEMP 35.6; O2SAT 99
[2020-12-20] MEDS: 0.9% NaCl VAD Flush IV ×3 (11:58→15:18)
[2020-12-20 12:00] VITALS: BP 165/77; PULSE 59; TEMP 36.5
== END ==
PROVIDERS: PCP Nurse Practitioner; Referring Provider Psychiatry & Neurology Neurology; Visit Provider Psychiatry & Neurology Neurology
DX: E71.40 Disorder of carnitine metabolism, unspecified (principal); E78.00 Pure hypercholesterolemia, unspecified; G47.10 Hypersomnia, unspecified
CPT/HCPCS: 96365 ×2; J7040; A4216

== ENCOUNTER → 2020-12-27 10:49 | Outpatient (CLI) | payer MEDICARE, BC, SELFPAY ==
[2020-12-13 14:41] VITALS: BMI 34.0
[2020-12-17 11:03] VITALS: BMI 32.9
[2020-12-27 10:58] VITALS: BP 146/64; PULSE 71; RESP 16; TEMP 36.3; O2SAT 97
[2020-12-27] MEDS: 0.9% NaCl IVPB Med Flush (250 mL) 15 ML IV (11:04)
[2020-12-27] MEDS: 0.9 % NaCl (Sterile) Posiflush 10 mL IV (11:04)
[2020-12-27 11:52] VITALS: BP 131/55; PULSE 61; RESP 16
[2020-12-27] MEDS: 0.9% NaCl VAD Flush IV ×2 (14:31→15:16)
== END ==
PROVIDERS: PCP Nurse Practitioner; Referring Provider Psychiatry & Neurology Neurology; Visit Provider Psychiatry & Neurology Neurology
DX: E71.40 Disorder of carnitine metabolism, unspecified (principal); E78.00 Pure hypercholesterolemia, unspecified; G47.10 Hypersomnia, unspecified
CPT/HCPCS: 96365 ×2; J7040; J7050; A4216

== ENCOUNTER → 2021-01-01 10:55 | Outpatient (CLI) | payer MEDICARE, BC, SELFPAY ==
[2020-12-13 14:41] VITALS: BMI 34.0
[2020-12-17 11:03] VITALS: BMI 32.9
[2021-01-01 11:10] VITALS: BP 125/57; PULSE 60; RESP 16; TEMP 36.4; O2SAT 98; BMI 32.9
[2021-01-01] MEDS: 0.9% NaCl VAD Flush IV ×3 (11:55→15:19)
[2021-01-01 15:28] VITALS: BP 173/88; PULSE 61; RESP 16; O2SAT 99
== END ==
PROVIDERS: PCP Nurse Practitioner; Referring Provider Psychiatry & Neurology Neurology; Visit Provider Psychiatry & Neurology Neurology
DX: E71.40 Disorder of carnitine metabolism, unspecified (principal); E78.00 Pure hypercholesterolemia, unspecified; G47.10 Hypersomnia, unspecified
CPT/HCPCS: 96365 ×2; J7040; J7050; A4216

== ENCOUNTER → 2021-01-03 12:42 | Outpatient (CLI) | payer MEDICARE, BC, SELFPAY ==
[2020-12-13 14:41] VITALS: BMI 34.0
[2021-01-01 11:10] VITALS: BMI 32.9
[2021-01-03] MEDS: 0.9 % NaCl (Sterile) Posiflush 10 mL IV (12:58)
[2021-01-03 13:04] VITALS: BP 165/69; PULSE 60; RESP 16; TEMP 36.8; O2SAT 98; BMI 35.2
[2021-01-03] MEDS: 0.9% NaCl IVPB Med Flush (250 mL) 15 ML IV (13:04)
[2021-01-03] MEDS: 0.9% NaCl VAD Flush IV (14:04)
[2021-01-03 14:08] VITALS: BP 152/93; PULSE 57; RESP 16; O2SAT 98
== END ==
PROVIDERS: PCP Nurse Practitioner; Referring Provider Psychiatry & Neurology Neurology; Visit Provider Psychiatry & Neurology Neurology
DX: E71.40 Disorder of carnitine metabolism, unspecified (principal); E78.00 Pure hypercholesterolemia, unspecified; G47.10 Hypersomnia, unspecified
CPT/HCPCS: 96365; J7040; J7050; A4216

== ENCOUNTER → 2021-01-07 10:42 | Outpatient (CLI) | payer MEDICARE, BC, SELFPAY ==
[2020-12-13 14:41] VITALS: BMI 34.0
[2021-01-03 13:04] VITALS: BMI 35.2
[2021-01-07] MEDS: 0.9 % NaCl (Sterile) Posiflush 10 mL IV (11:01)
[2021-01-07 11:02] VITALS: BP 133/73; PULSE 54; RESP 16; TEMP 36.7; O2SAT 96; BMI 35.2
[2021-01-07] MEDS: 0.9% NaCl IVPB Med Flush (250 mL) 15 ML IV (11:18)
[2021-01-07] MEDS: 0.9% NaCl VAD Flush IV ×2 (11:55→14:43)
[2021-01-07 14:44] VITALS: BP 151/71; PULSE 61; RESP 16; TEMP 36.5; O2SAT 97
[2021-01-07 15:32] VITALS: BP 133/81; PULSE 67; RESP 16; TEMP 36.4; O2SAT 97
== END ==
PROVIDERS: PCP Nurse Practitioner; Referring Provider Psychiatry & Neurology Neurology; Visit Provider Psychiatry & Neurology Neurology
DX: E71.40 Disorder of carnitine metabolism, unspecified (principal); E78.00 Pure hypercholesterolemia, unspecified; G47.10 Hypersomnia, unspecified
CPT/HCPCS: 96365 ×2; J7040; J7050; A4216

== ENCOUNTER → 2021-01-10 10:40 | Outpatient (CLI) | payer MEDICARE, BC, SELFPAY ==
[2020-12-13 14:41] VITALS: BMI 34.0
[2021-01-07 11:02] VITALS: BMI 35.2
[2021-01-10] MEDS: 0.9 % NaCl (Sterile) Posiflush 10 mL IV (10:55)
[2021-01-10 10:58] VITALS: BP 128/72; PULSE 60; RESP 16; TEMP 36.2; O2SAT 98; BMI 33.7
[2021-01-10] MEDS: 0.9% NaCl IVPB Med Flush (250 mL) 15 ML IV (11:03)
[2021-01-10 11:44] VITALS: BP 121/68; PULSE 57; RESP 16; TEMP 36.5
[2021-01-10] MEDS: 0.9% NaCl VAD Flush IV ×2 (11:46→14:28)
[2021-01-10 14:29] VITALS: BP 111/47; PULSE 65; RESP 16; TEMP 36.7
[2021-01-10 15:08] VITALS: BP 123/53; PULSE 62; RESP 16; TEMP 36.1; O2SAT 99
== END ==
PROVIDERS: PCP Nurse Practitioner; Referring Provider Psychiatry & Neurology Neurology; Visit Provider Psychiatry & Neurology Neurology
DX: E71.40 Disorder of carnitine metabolism, unspecified (principal); E78.00 Pure hypercholesterolemia, unspecified; G47.10 Hypersomnia, unspecified
CPT/HCPCS: 96365 ×2; J7040; J7050; A4216

== ENCOUNTER → 2021-01-14 14:26 | Outpatient (CLI) | payer MEDICARE, BC, SELFPAY ==
[2020-12-13 14:41] VITALS: BMI 34.0
[2021-01-10 10:58] VITALS: BMI 33.7
[2021-01-14 14:47] VITALS: BP 124/72; PULSE 64; RESP 16; TEMP 36.3; O2SAT 97
[2021-01-14] MEDS: 0.9% NaCl IVPB Med Flush (250 mL) 15 ML IV (14:47)
[2021-01-14] MEDS: 0.9 % NaCl (Sterile) Posiflush 10 mL IV (14:47)
[2021-01-14 15:27] VITALS: BP 124/57; PULSE 63; RESP 16; TEMP 36.6
== END ==
PROVIDERS: PCP Nurse Practitioner; Referring Provider Psychiatry & Neurology Neurology; Visit Provider Psychiatry & Neurology Neurology
DX: E71.40 Disorder of carnitine metabolism, unspecified (principal); E78.00 Pure hypercholesterolemia, unspecified; G47.10 Hypersomnia, unspecified
CPT/HCPCS: 96365; J7040; J7050

== ENCOUNTER → 2021-01-21 10:52 | Outpatient (CLI) | payer MEDICARE, BC, SELFPAY ==
[2021-01-10 10:58] VITALS: BMI 33.7
[2021-01-21] MEDS: 0.9 % NaCl (Sterile) Posiflush 10 mL IV (10:58)
[2021-01-21 11:02] VITALS: BP 150/76; PULSE 59; RESP 18; TEMP 36.3; O2SAT 100
[2021-01-21] MEDS: 0.9% NaCl IVPB Med Flush (250 mL) 15 ML IV (11:21)
[2021-01-21 12:04] VITALS: BP 136/67; PULSE 58; RESP 16; TEMP 36.5
[2021-01-21] MEDS: 0.9% NaCl VAD Flush IV ×2 (14:41→15:23)
[2021-01-21 15:26] VITALS: BP 120/56; PULSE 60; RESP 16
== END ==
PROVIDERS: PCP Nurse Practitioner; Referring Provider Psychiatry & Neurology Neurology; Visit Provider Psychiatry & Neurology Neurology
DX: E71.40 Disorder of carnitine metabolism, unspecified (principal); E78.00 Pure hypercholesterolemia, unspecified; G47.10 Hypersomnia, unspecified
CPT/HCPCS: 96365 ×2; J7040; J7050; A4216

== ENCOUNTER → 2021-02-04 14:25 | Outpatient (CLI) | payer MEDICARE, BC, SELFPAY ==
[2021-01-10 10:58] VITALS: BMI 33.7
[2021-02-04 14:43] VITALS: BP 129/66; PULSE 64; RESP 16; TEMP 36.7; O2SAT 96; BMI 35.6
[2021-02-04 15:27] VITALS: BP 143/61; PULSE 67; RESP 16; TEMP 36.6; O2SAT 100
== END ==
PROVIDERS: PCP Nurse Practitioner; Referring Provider Psychiatry & Neurology Neurology; Visit Provider Psychiatry & Neurology Neurology
DX: E71.40 Disorder of carnitine metabolism, unspecified (principal); E78.00 Pure hypercholesterolemia, unspecified; G47.10 Hypersomnia, unspecified
CPT/HCPCS: 96365; J7040; J7050

== ENCOUNTER → 2021-02-18 14:42 | Outpatient (CLI) | payer MEDICARE, BC, SELFPAY ==
[2021-01-10 10:58] VITALS: BMI 33.7
[2021-02-18 14:50] VITALS: BP 143/82; PULSE 61; RESP 18; TEMP 35.8; O2SAT 96
[2021-02-18] MEDS: 0.9 % NaCl (Sterile) Posiflush 10 mL IV (14:52)
[2021-02-18] MEDS: 0.9% NaCl IVPB Med Flush (250 mL) 15 ML IV (14:52)
[2021-02-18 15:55] VITALS: BP 148/67; PULSE 56; RESP 16; TEMP 35.5; O2SAT 96
== END ==
PROVIDERS: PCP Nurse Practitioner; Referring Provider Psychiatry & Neurology Neurology; Visit Provider Psychiatry & Neurology Neurology
DX: E71.40 Disorder of carnitine metabolism, unspecified (principal); E78.00 Pure hypercholesterolemia, unspecified; G47.10 Hypersomnia, unspecified
CPT/HCPCS: 96365; J7040; J7050

== ENCOUNTER → 2021-02-21 11:42 | Outpatient (CLI) | payer MEDICARE, BC, SELFPAY ==
[2021-01-10 10:58] VITALS: BMI 33.7
[2021-02-21] MEDS: 0.9 % NaCl (Sterile) Posiflush 10 mL IV (11:52)
[2021-02-21] MEDS: 0.9% NaCl VAD Flush IV ×3 (12:03→12:19)
[2021-02-21] MEDS: 0.9% NaCl IVPB Med Flush (250 mL) 15 ML IV (12:20)
[2021-02-21 12:24] VITALS: BP 137/69; PULSE 64; RESP 16; TEMP 35.7; O2SAT 99
[2021-02-21 13:06] VITALS: BP 142/71; PULSE 57; RESP 16; TEMP 35.6
== END ==
PROVIDERS: PCP Nurse Practitioner; Referring Provider Psychiatry & Neurology Neurology; Visit Provider Psychiatry & Neurology Neurology
DX: E71.40 Disorder of carnitine metabolism, unspecified (principal); E78.00 Pure hypercholesterolemia, unspecified; G47.10 Hypersomnia, unspecified
CPT/HCPCS: 96365; J7040; J7050; A4216

== ENCOUNTER → 2021-02-25 14:04 | Outpatient (CLI) | payer MEDICARE, BC, SELFPAY ==
[2021-02-25] MEDS: 0.9 % NaCl (Sterile) Posiflush 10 mL IV (14:11)
[2021-02-25] MEDS: 0.9% NaCl VAD Flush IV ×2 (14:16→15:41)
[2021-02-25 14:19] VITALS: BP 136/76; PULSE 66; RESP 16; TEMP 36.2; O2SAT 97; BMI 35.2
[2021-02-25 15:37] VITALS: BP 120/76; PULSE 69; RESP 16; TEMP 36.4; O2SAT 95
== END ==
PROVIDERS: PCP Nurse Practitioner; Referring Provider Psychiatry & Neurology Neurology; Visit Provider Psychiatry & Neurology Neurology
DX: E71.40 Disorder of carnitine metabolism, unspecified (principal); E78.00 Pure hypercholesterolemia, unspecified; G47.10 Hypersomnia, unspecified
CPT/HCPCS: 96365; J7040; A4216

== ENCOUNTER → 2021-02-28 14:19 | Outpatient (CLI) | payer MEDICARE, BC, SELFPAY ==
[2021-02-28 14:25] VITALS: BP 135/66; PULSE 60; RESP 16; TEMP 36.7; O2SAT 100
[2021-02-28] MEDS: 0.9 % NaCl (Sterile) Posiflush 10 mL IV (14:38)
[2021-02-28] MEDS: 0.9% NaCl VAD Flush IV ×2 (14:38→16:20)
[2021-02-28] MEDS: Alteplase 2 MG/2 ML Vial IV (15:24)
[2021-02-28] MEDS: 0.9% NaCl IVPB Med Flush (250 mL) 15 ML IV (16:22)
== END ==
PROVIDERS: PCP Nurse Practitioner; Referring Provider Psychiatry & Neurology Neurology; Visit Provider Psychiatry & Neurology Neurology
DX: E71.40 Disorder of carnitine metabolism, unspecified (principal); E78.00 Pure hypercholesterolemia, unspecified; G47.10 Hypersomnia, unspecified
CPT/HCPCS: 96365; 96375; 36593; J2997; J7040; J7050; A4216

== ENCOUNTER → 2021-03-04 14:16 | Outpatient (CLI) | payer MEDICARE, BC, SELFPAY ==
[2021-03-04 14:26] VITALS: BP 118/69; PULSE 80; RESP 16; TEMP 36.4; O2SAT 98
[2021-03-04] MEDS: 0.9% NaCl IVPB Med Flush (250 mL) 15 ML IV (15:02)
[2021-03-04] MEDS: 0.9 % NaCl (Sterile) Posiflush 10 mL IV (15:02)
[2021-03-04] MEDS: 0.9% NaCl VAD Flush IV (15:40)
== END ==
PROVIDERS: PCP Nurse Practitioner; Referring Provider Psychiatry & Neurology Neurology; Visit Provider Psychiatry & Neurology Neurology
DX: E71.40 Disorder of carnitine metabolism, unspecified (principal); E78.00 Pure hypercholesterolemia, unspecified; G47.10 Hypersomnia, unspecified
CPT/HCPCS: 96365; J7040; J7050; A4216

== ENCOUNTER → 2021-03-07 14:09 | Outpatient (CLI) | payer MEDICARE, BC, SELFPAY ==
[2021-03-07 14:25] VITALS: BP 133/75; PULSE 58; RESP 16; TEMP 37; O2SAT 98
[2021-03-07] MEDS: 0.9 % NaCl (Sterile) Posiflush 10 mL IV (14:28)
[2021-03-07] MEDS: 0.9% NaCl IVPB Med Flush (250 mL) 15 ML IV (14:29)
[2021-03-07] MEDS: 0.9% NaCl VAD Flush IV (15:20)
[2021-03-07 15:27] VITALS: BP 130/65; PULSE 57; RESP 16; O2SAT 99
== END ==
PROVIDERS: PCP Nurse Practitioner; Referring Provider Psychiatry & Neurology Neurology; Visit Provider Psychiatry & Neurology Neurology
DX: E71.40 Disorder of carnitine metabolism, unspecified (principal); E78.00 Pure hypercholesterolemia, unspecified; G47.10 Hypersomnia, unspecified
CPT/HCPCS: 96365; J7040; J7050; A4216

== ENCOUNTER → 2021-03-11 14:31 | Outpatient (CLI) | payer MEDICARE, BC, SELFPAY ==
[2021-03-11 14:46] VITALS: BP 134/74; PULSE 64; RESP 16; TEMP 36.7; O2SAT 98
[2021-03-11] MEDS: 0.9% NaCl IVPB Med Flush (250 mL) 15 ML IV (14:52)
[2021-03-11] MEDS: 0.9 % NaCl (Sterile) Posiflush 10 mL IV (14:52)
[2021-03-11 15:35] VITALS: BP 125/59; PULSE 61; RESP 16; TEMP 36.6
== END ==
PROVIDERS: PCP Nurse Practitioner; Referring Provider Psychiatry & Neurology Neurology; Visit Provider Psychiatry & Neurology Neurology
DX: E71.40 Disorder of carnitine metabolism, unspecified (principal); E78.00 Pure hypercholesterolemia, unspecified; G47.10 Hypersomnia, unspecified
CPT/HCPCS: 96365; J7040; J7050

== ENCOUNTER → 2021-03-14 10:51 | Outpatient (CLI) | payer MEDICARE, BC, SELFPAY ==
[2021-03-14 11:05] VITALS: BP 124/57; PULSE 66; RESP 16; TEMP 36.8; O2SAT 99
[2021-03-14] MEDS: 0.9 % NaCl (Sterile) Posiflush 10 mL IV (11:28)
[2021-03-14] MEDS: 0.9% NaCl IVPB Med Flush (250 mL) 15 ML IV (11:29)
== END ==
PROVIDERS: PCP Nurse Practitioner; Referring Provider Psychiatry & Neurology Neurology; Visit Provider Psychiatry & Neurology Neurology
DX: E71.40 Disorder of carnitine metabolism, unspecified (principal); E78.00 Pure hypercholesterolemia, unspecified; G47.10 Hypersomnia, unspecified
CPT/HCPCS: 96365; J7040; J7050

== ENCOUNTER → 2021-03-15 08:42 | Outpatient (CLI) | payer MEDICARE, BC, SELFPAY | PROVIDERS: PCP Nurse Practitioner; Referring Provider Otolaryngology; Visit Provider Otolaryngology | DX: J02.9 Acute pharyngitis, unspecified (principal) | CPT/HCPCS: 87070 ==

== ENCOUNTER → 2021-03-18 14:17 | Outpatient (CLI) | payer MEDICARE, BC, SELFPAY ==
[2021-03-18 14:33] VITALS: BP 146/70; PULSE 61; RESP 16; TEMP 36.7; O2SAT 100
[2021-03-18] MEDS: 0.9% NaCl IVPB Med Flush (250 mL) 15 ML IV (14:39)
[2021-03-18] MEDS: 0.9 % NaCl (Sterile) Posiflush 10 mL IV (14:41)
[2021-03-18] MEDS: 0.9% NaCl VAD Flush IV ×3 (14:41→15:30)
== END ==
PROVIDERS: PCP Nurse Practitioner; Referring Provider Psychiatry & Neurology Neurology; Visit Provider Psychiatry & Neurology Neurology
DX: E71.40 Disorder of carnitine metabolism, unspecified (principal); E78.00 Pure hypercholesterolemia, unspecified; G47.10 Hypersomnia, unspecified
CPT/HCPCS: 96365; J7040; J7050; A4216

== ENCOUNTER → 2021-03-21 13:34 | Outpatient (CLI) | payer MEDICARE, BC, SELFPAY ==
[2021-03-21] MEDS: Alteplase 2 MG/2 ML Vial IV (13:50)
[2021-03-21 14:45] VITALS: BP 148/57; PULSE 63; RESP 16; TEMP 35.6; O2SAT 99
[2021-03-21 15:36] VITALS: BP 140/63; PULSE 61; RESP 16
== END ==
PROVIDERS: PCP Nurse Practitioner; Referring Provider Psychiatry & Neurology Neurology; Visit Provider Psychiatry & Neurology Neurology
DX: E71.40 Disorder of carnitine metabolism, unspecified (principal); E78.00 Pure hypercholesterolemia, unspecified; G47.10 Hypersomnia, unspecified
CPT/HCPCS: 96365; 36593; J2997; J7040; A4216

== ENCOUNTER → 2021-03-28 10:40 | Outpatient (CLI) | payer MEDICARE, BC, SELFPAY ==
[2021-03-28 10:50] VITALS: BP 134/68; PULSE 61; RESP 16; TEMP 36.2; O2SAT 96
[2021-03-28] MEDS: 0.9% NaCl IVPB Med Flush (250 mL) 15 ML IV (11:13)
[2021-03-28] MEDS: 0.9 % NaCl (Sterile) Posiflush 10 mL IV (11:13)
[2021-03-28 11:54] VITALS: BP 138/74; PULSE 61; RESP 16; TEMP 36.3; O2SAT 97
[2021-03-28] MEDS: 0.9% NaCl VAD Flush IV (14:19)
[2021-03-28 15:03] VITALS: BP 143/73; PULSE 63; RESP 16; TEMP 36.3; O2SAT 99
== END ==
PROVIDERS: PCP Nurse Practitioner; Referring Provider Psychiatry & Neurology Neurology; Visit Provider Psychiatry & Neurology Neurology
DX: E71.40 Disorder of carnitine metabolism, unspecified (principal); E78.00 Pure hypercholesterolemia, unspecified; G47.10 Hypersomnia, unspecified
CPT/HCPCS: 96365 ×2; J7040; J7050; A4216

== ENCOUNTER → 2021-04-01 14:48 | Outpatient (CLI) | payer MEDICARE, BC, SELFPAY ==
[2021-04-01] MEDS: 0.9 % NaCl (Sterile) Posiflush 10 mL IV (15:00)
[2021-04-01] MEDS: 0.9% NaCl IVPB Med Flush (250 mL) 15 ML IV (15:05)
[2021-04-01 15:06] VITALS: BP 144/98; PULSE 63; RESP 16; TEMP 36.4; O2SAT 100
[2021-04-01 15:49] VITALS: BP 149/72; PULSE 60
== END ==
PROVIDERS: PCP Nurse Practitioner; Referring Provider Psychiatry & Neurology Neurology; Visit Provider Psychiatry & Neurology Neurology
DX: E71.40 Disorder of carnitine metabolism, unspecified (principal); E78.00 Pure hypercholesterolemia, unspecified; G47.10 Hypersomnia, unspecified
CPT/HCPCS: 96365; J7040; J7050

== ENCOUNTER → 2021-04-03 12:37 | Outpatient (CLI) | payer MEDICARE, BC, SELFPAY ==
--- NOTE | 2021-04-03 12:40 | CT_ITS ---
STUDY: CT SOFT TISSUE NECK WITH CONTRAST REASON FOR EXAM: Female, 70 years old. R OTALGIA. Sore throat. RADIATION DOSAGE (If Supplied By Facility): CTDIvol = ( 17.53 ) mGy, DLP = ( 507.99 ) mGycm TECHNIQUE: The patient was scanned in a multi-detector CT scanner. High resolution transaxial imaging was performed following intravenous administration of IV 100mL Isovue-370. Sagittal and coronal images were reconstructed. Individualized dose optimization techniques were used for this CT. COMPARISON: None. FINDINGS: Normal bilateral parotid glands. Normal bilateral salesperson driver spaces. Normal bilateral parapharyngeal spaces. Normal bilateral carotid spaces. Normal bilateral sublingual and submandibular glands and spaces. Normal visualized nasopharynx. Normal retropharyngeal space. Normal perivertebral space. Normal visualized bilateral faucial tonsils. The visualized tongue, tongue base and oropharynx are normal. There are minimally enlarged lymph nodes of the neck, with preservation of normal zoraida architecture, consistent with a reactive lymph hyperplasia. There is no demonstrated solid or cystic mass lesion. There is no abnormal contrast enhancement. Normal epiglottis, bilateral vallecula and hypopharynx. The pre-epiglottic and paraglottic adipose spaces are normal. Normal visualized bilateral piriform sinuses, aryepiglottic folds, vocal cords, and arytenoid-cricoid articulations. Normal subglottic trachea. Normal bilateral lobes of the thyroid gland. Normal visualized pulmonary apices. Minimal mucosal thickening along the medial wall of the right maxillary sinus. The patient is status post anterior fusion at the C4-C5 C5-C6 and C6-C7 levels. CT/Soft Tissue Neck WITH Contrast IMPRESSION: Minimal mucosal thickening along the medial wall of the right maxillary sinus. Status post fusion of the cervical spine. Electronically Signed: Martín Morales MD at 15:22 EDT , Service support ,
[2021-04-03 12:56] LABS: CREATININE FINGERSTICK 0.7 mg/dL (0.55-1.02); EGFR FINGERSTICK > 60.0000 mL/min (>60)
== END ==
PROVIDERS: PCP Nurse Practitioner; Referring Provider Otolaryngology; Visit Provider Otolaryngology
DX: H92.01 Otalgia, right ear (principal)
CPT/HCPCS: 70491; Q9967; A4216

== ENCOUNTER → 2021-04-03 13:10 | Outpatient (CLI) | payer MEDICARE, BC, SELFPAY ==
[2021-04-03 13:37] VITALS: BP 147/71; PULSE 57; RESP 20; TEMP 36.7; O2SAT 98
[2021-04-03] MEDS: 0.9% NaCl IVPB Med Flush (250 mL) 15 ML IV (13:37)
[2021-04-03 14:20] VITALS: BP 160/68; PULSE 58; RESP 16; O2SAT 100
== END ==
PROVIDERS: PCP Nurse Practitioner; Referring Provider Psychiatry & Neurology Neurology; Visit Provider Psychiatry & Neurology Neurology
DX: E71.40 Disorder of carnitine metabolism, unspecified (principal); E78.00 Pure hypercholesterolemia, unspecified; G47.10 Hypersomnia, unspecified; H92.01 Otalgia, right ear
CPT/HCPCS: 96365; 70491; J7040; J7050; Q9967; A4216

== ENCOUNTER → 2021-04-04 13:14 | Outpatient (CLI) | payer MEDICARE, BC, SELFPAY ==
[2021-04-04] MEDS: 0.9 % NaCl (Sterile) Posiflush 10 mL IV (13:33)
[2021-04-04] MEDS: 0.9% NaCl IVPB Med Flush (250 mL) 15 ML IV (13:33)
[2021-04-04 13:36] VITALS: BP 136/65; PULSE 59; RESP 16; TEMP 36.1; O2SAT 96
[2021-04-04 14:36] VITALS: BP 135/68; PULSE 62; RESP 16; TEMP 36.3
== END ==
PROVIDERS: PCP Nurse Practitioner; Referring Provider Psychiatry & Neurology Neurology; Visit Provider Psychiatry & Neurology Neurology
DX: E71.40 Disorder of carnitine metabolism, unspecified (principal); E78.00 Pure hypercholesterolemia, unspecified; G47.10 Hypersomnia, unspecified
CPT/HCPCS: 96365; J7040; J7050

== ENCOUNTER → 2021-04-08 14:06 | Outpatient (CLI) | payer MEDICARE, BC, SELFPAY ==
[2021-04-08 14:32] VITALS: BP 143/70; PULSE 62; RESP 16; TEMP 36.2; O2SAT 97; BMI 35.2
[2021-04-08] MEDS: 0.9 % NaCl (Sterile) Posiflush 10 mL IV (14:39)
[2021-04-08] MEDS: 0.9% NaCl IVPB Med Flush (250 mL) 15 ML IV (14:40)
[2021-04-08] MEDS: 0.9% NaCl VAD Flush IV (15:25)
== END ==
PROVIDERS: PCP Nurse Practitioner; Referring Provider Psychiatry & Neurology Neurology; Visit Provider Psychiatry & Neurology Neurology
DX: E71.40 Disorder of carnitine metabolism, unspecified (principal); E78.00 Pure hypercholesterolemia, unspecified; G47.10 Hypersomnia, unspecified
CPT/HCPCS: 96365; J7040; J7050; A4216

== ENCOUNTER → 2021-04-11 14:22 | Outpatient (CLI) | payer MEDICARE, BC, SELFPAY ==
[2021-04-11 14:27] VITALS: BP 141/69; PULSE 57; RESP 16; TEMP 35.6; O2SAT 99
[2021-04-11] MEDS: 0.9 % NaCl (Sterile) Posiflush 10 mL IV (14:43)
[2021-04-11] MEDS: 0.9% NaCl IVPB Med Flush (250 mL) 15 ML IV (14:43)
[2021-04-11] MEDS: 0.9% NaCl VAD Flush IV (15:34)
== END ==
PROVIDERS: PCP Nurse Practitioner; Referring Provider Psychiatry & Neurology Neurology; Visit Provider Psychiatry & Neurology Neurology
DX: E71.40 Disorder of carnitine metabolism, unspecified (principal); E78.00 Pure hypercholesterolemia, unspecified; G47.10 Hypersomnia, unspecified
CPT/HCPCS: 96365; J7040; J7050; A4216

== ENCOUNTER → 2021-04-15 14:38 | Outpatient (CLI) | payer MEDICARE, BC, SELFPAY ==
[2021-04-15] MEDS: 0.9% NaCl IVPB Med Flush (250 mL) 15 ML IV (14:43)
[2021-04-15] MEDS: 0.9 % NaCl (Sterile) Posiflush 10 mL IV (14:43)
[2021-04-15 14:44] VITALS: BP 160/79; PULSE 68; RESP 16; TEMP 36.2; O2SAT 98
[2021-04-15] MEDS: 0.9% NaCl VAD Flush IV (15:31)
== END ==
PROVIDERS: PCP Nurse Practitioner; Referring Provider Psychiatry & Neurology Neurology; Visit Provider Psychiatry & Neurology Neurology
DX: E71.40 Disorder of carnitine metabolism, unspecified (principal); E78.00 Pure hypercholesterolemia, unspecified; G47.10 Hypersomnia, unspecified
CPT/HCPCS: 96365; J7040; J7050; A4216

== ENCOUNTER → 2021-04-18 | Outpatient (CLI) | payer MEDICARE, BC, SELFPAY ==
[2021-04-18] MEDS: 0.9 % NaCl (Sterile) Posiflush 10 mL IV (14:12)
[2021-04-18] MEDS: 0.9% NaCl IVPB Med Flush (250 mL) 15 ML IV (14:12)
[2021-04-18 14:16] VITALS: BP 151/73; PULSE 69; RESP 16; TEMP 36.6; O2SAT 98
[2021-04-18 15:04] VITALS: BP 153/70; PULSE 55; RESP 16; TEMP 36.6
[2021-04-18] MEDS: 0.9% NaCl VAD Flush IV (15:05)
== END | disposition home or self-care (01) ==
LOC: MEDOUTP 14:00
PROVIDERS: PCP Nurse Practitioner; Referring Provider Psychiatry & Neurology Neurology; Visit Provider Psychiatry & Neurology Neurology
DX: E71.40 Disorder of carnitine metabolism, unspecified (principal); E78.00 Pure hypercholesterolemia, unspecified; G47.10 Hypersomnia, unspecified
CPT/HCPCS: 96365; J7040; J7050; A4216

== ENCOUNTER → 2021-04-25 13:48 | Outpatient (CLI) | payer MEDICARE, BC, SELFPAY ==
[2021-04-25] MEDS: 0.9 % NaCl (Sterile) Posiflush 10 mL IV (14:50)
[2021-04-25] MEDS: 0.9% NaCl IVPB Med Flush (250 mL) 15 ML IV (14:50)
[2021-04-25 14:51] VITALS: BP 146/70; PULSE 61; RESP 16; TEMP 35.9; O2SAT 99
[2021-04-25] MEDS: 0.9% NaCl VAD Flush IV (15:25)
[2021-04-25 15:26] VITALS: BP 148/65; PULSE 59; RESP 16; TEMP 36.6; O2SAT 99
== END ==
PROVIDERS: PCP Nurse Practitioner; Referring Provider Psychiatry & Neurology Neurology; Visit Provider Psychiatry & Neurology Neurology
DX: E71.40 Disorder of carnitine metabolism, unspecified (principal); E78.00 Pure hypercholesterolemia, unspecified; G47.10 Hypersomnia, unspecified
CPT/HCPCS: 96365; J7040; J7050; A4216

== ENCOUNTER → 2021-04-29 14:29 | Outpatient (CLI) | payer MEDICARE, BC, SELFPAY ==
[2021-04-29 14:38] VITALS: BP 149/76; PULSE 60; RESP 16; TEMP 35.9; O2SAT 99
[2021-04-29] MEDS: 0.9% NaCl IVPB Med Flush (250 mL) 15 ML IV (15:03)
[2021-04-29] MEDS: 0.9 % NaCl (Sterile) Posiflush 10 mL IV (15:05)
[2021-04-29] MEDS: 0.9% NaCl VAD Flush IV (15:42)
[2021-04-29 15:44] VITALS: BP 170/75; PULSE 57; RESP 16; TEMP 35.7; O2SAT 99
== END ==
PROVIDERS: PCP Nurse Practitioner; Referring Provider Psychiatry & Neurology Neurology; Visit Provider Psychiatry & Neurology Neurology
DX: E71.40 Disorder of carnitine metabolism, unspecified (principal); E78.00 Pure hypercholesterolemia, unspecified; G47.10 Hypersomnia, unspecified
CPT/HCPCS: 96365; J7040; J7050; A4216

== ENCOUNTER → 2021-05-02 14:26 | Outpatient (CLI) | payer MEDICARE, BC, SELFPAY ==
[2021-05-02] MEDS: 0.9 % NaCl (Sterile) Posiflush 10 mL IV (14:30)
[2021-05-02] MEDS: 0.9% NaCl IVPB Med Flush (250 mL) 15 ML IV (14:31)
[2021-05-02 14:34] VITALS: BP 154/75; PULSE 61; RESP 16; TEMP 36.5
[2021-05-02] MEDS: 0.9% NaCl VAD Flush IV (15:12)
[2021-05-02 15:20] VITALS: BP 129/66; PULSE 76; RESP 16; TEMP 36.6; O2SAT 98
== END ==
PROVIDERS: PCP Nurse Practitioner; Referring Provider Psychiatry & Neurology Neurology; Visit Provider Psychiatry & Neurology Neurology
DX: E71.40 Disorder of carnitine metabolism, unspecified (principal); E78.00 Pure hypercholesterolemia, unspecified; G47.10 Hypersomnia, unspecified
CPT/HCPCS: 96365; J7040; J7050; A4216

== ENCOUNTER → 2021-05-06 14:38 | Outpatient (CLI) | payer MEDICARE, BC, SELFPAY ==
[2021-05-06 14:52] VITALS: BP 139/73; PULSE 65; O2SAT 96
[2021-05-06] MEDS: 0.9% NaCl IVPB Med Flush (250 mL) 15 ML IV (14:55)
[2021-05-06] MEDS: 0.9 % NaCl (Sterile) Posiflush 10 mL IV (14:55)
[2021-05-06] MEDS: 0.9% NaCl VAD Flush IV (15:44)
[2021-05-06 15:45] VITALS: BP 145/71; PULSE 57; RESP 16; TEMP 36.6; O2SAT 98
== END ==
PROVIDERS: PCP Nurse Practitioner; Referring Provider Psychiatry & Neurology Neurology; Visit Provider Psychiatry & Neurology Neurology
DX: E71.40 Disorder of carnitine metabolism, unspecified (principal); E78.00 Pure hypercholesterolemia, unspecified; G47.10 Hypersomnia, unspecified
CPT/HCPCS: 96365; J7040; J7050; A4216

== ENCOUNTER → 2021-05-09 14:18 | Outpatient (CLI) | payer MEDICARE, BC, SELFPAY ==
[2021-05-09] MEDS: 0.9 % NaCl (Sterile) Posiflush 10 mL IV (14:24)
[2021-05-09 14:28] VITALS: BP 152/81; PULSE 62; RESP 16; TEMP 36.3; O2SAT 99
[2021-05-09] MEDS: 0.9% NaCl IVPB Med Flush (250 mL) 15 ML IV (14:31)
[2021-05-09] MEDS: 0.9% NaCl VAD Flush IV (15:30)
== END ==
PROVIDERS: PCP Nurse Practitioner; Referring Provider Psychiatry & Neurology Neurology; Visit Provider Psychiatry & Neurology Neurology
DX: E71.40 Disorder of carnitine metabolism, unspecified (principal); E78.00 Pure hypercholesterolemia, unspecified; G47.10 Hypersomnia, unspecified
CPT/HCPCS: 96365; J7040; J7050; A4216

== ENCOUNTER → 2021-05-13 14:33 | Outpatient (CLI) | payer MEDICARE, BC, SELFPAY ==
[2021-05-13] MEDS: 0.9 % NaCl (Sterile) Posiflush 10 mL IV (14:35)
[2021-05-13] MEDS: 0.9% NaCl IVPB Med Flush (250 mL) 15 ML IV (14:39)
[2021-05-13 14:40] VITALS: BP 152/84; PULSE 58; RESP 16; TEMP 35.8; O2SAT 98
[2021-05-13] MEDS: 0.9% NaCl VAD Flush IV (15:26)
[2021-05-13 15:27] VITALS: BP 136/70; PULSE 57; RESP 16; TEMP 36.5; O2SAT 99
== END ==
PROVIDERS: PCP Nurse Practitioner; Referring Provider Psychiatry & Neurology Neurology; Visit Provider Psychiatry & Neurology Neurology
DX: E71.40 Disorder of carnitine metabolism, unspecified (principal); E78.00 Pure hypercholesterolemia, unspecified; G47.10 Hypersomnia, unspecified
CPT/HCPCS: 96365; J7040; J7050; A4216

== ENCOUNTER → 2021-05-20 13:03 | Outpatient (CLI) | payer MEDICARE, BC, SELFPAY ==
[2021-05-20] MEDS: 0.9 % NaCl (Sterile) Posiflush 10 mL IV (13:19)
[2021-05-20 13:22] VITALS: BP 119/67; PULSE 57; RESP 16; TEMP 36.9
[2021-05-20] MEDS: 0.9% NaCl IVPB Med Flush (250 mL) 15 ML IV (13:28)
[2021-05-20] MEDS: 0.9% NaCl VAD Flush IV (14:17)
== END ==
PROVIDERS: PCP Nurse Practitioner; Referring Provider Psychiatry & Neurology Neurology; Visit Provider Psychiatry & Neurology Neurology
DX: E71.40 Disorder of carnitine metabolism, unspecified (principal); E78.00 Pure hypercholesterolemia, unspecified; G47.10 Hypersomnia, unspecified
CPT/HCPCS: 96365; J7040; J7050; A4216

== ENCOUNTER → 2021-05-27 14:32 | Outpatient (CLI) | payer MEDICARE, BC, SELFPAY ==
[2021-05-27] MEDS: 0.9 % NaCl (Sterile) Posiflush 10 mL IV (14:43)
[2021-05-27 14:46] VITALS: BP 124/71; PULSE 56; RESP 16; TEMP 35.7; O2SAT 98
[2021-05-27] MEDS: 0.9% NaCl IVPB Med Flush (250 mL) 15 ML IV (14:54)
[2021-05-27 15:33] VITALS: BP 142/69; PULSE 52; RESP 16; TEMP 35.6; O2SAT 100
[2021-05-27] MEDS: 0.9% NaCl VAD Flush IV (15:34)
== END ==
PROVIDERS: PCP Nurse Practitioner; Referring Provider Psychiatry & Neurology Neurology; Visit Provider Psychiatry & Neurology Neurology
DX: E71.40 Disorder of carnitine metabolism, unspecified (principal); E78.00 Pure hypercholesterolemia, unspecified; G47.10 Hypersomnia, unspecified
CPT/HCPCS: 96365; J7040; J7050; A4216

== ENCOUNTER → 2021-05-30 10:13 | Outpatient (CLI) | payer MEDICARE, BC, SELFPAY ==
[2021-05-30] MEDS: 0.9 % NaCl (Sterile) Posiflush 10 mL IV (10:19)
[2021-05-30 10:25] VITALS: BP 128/70; PULSE 63; RESP 16; TEMP 36.1; O2SAT 98
[2021-05-30] MEDS: 0.9% NaCl IVPB Med Flush (250 mL) 15 ML IV (10:34)
[2021-05-30 11:27] VITALS: BP 136/71; PULSE 54; RESP 16; TEMP 36
[2021-05-30] MEDS: 0.9% NaCl VAD Flush IV ×3 (11:32→14:47)
[2021-05-30 14:10] VITALS: BP 163/85; PULSE 54; RESP 16; O2SAT 97
[2021-05-30 14:50] VITALS: BP 137/69; PULSE 66; RESP 16; TEMP 36.1
== END ==
PROVIDERS: PCP Nurse Practitioner; Referring Provider Psychiatry & Neurology Neurology; Visit Provider Psychiatry & Neurology Neurology
DX: E71.40 Disorder of carnitine metabolism, unspecified (principal)
CPT/HCPCS: 96365 ×2; J7040; J7050; A4216

== ENCOUNTER → 2021-06-03 14:21 | Outpatient (CLI) | payer MEDICARE, BC, SELFPAY ==
[2021-06-03 14:27] VITALS: BP 156/72; PULSE 57; RESP 16; TEMP 36.2; O2SAT 99; BMI 35.2
[2021-06-03] MEDS: 0.9% NaCl IVPB Med Flush (250 mL) 15 ML IV (14:41)
[2021-06-03] MEDS: 0.9 % NaCl (Sterile) Posiflush 10 mL IV (14:41)
[2021-06-03 15:22] VITALS: BP 175/67; PULSE 59; RESP 16; TEMP 35.6
[2021-06-03] MEDS: 0.9% NaCl VAD Flush IV (15:26)
[2021-06-03 15:46] VITALS: BP 172/74
== END ==
PROVIDERS: PCP Nurse Practitioner; Referring Provider Psychiatry & Neurology Neurology; Visit Provider Psychiatry & Neurology Neurology
DX: E71.40 Disorder of carnitine metabolism, unspecified (principal)
CPT/HCPCS: 96365; J7040; J7050; A4216

== ENCOUNTER → 2021-06-06 14:17 | Outpatient (CLI) | payer MEDICARE, BC, SELFPAY ==
[2021-06-06] MEDS: 0.9% NaCl IVPB Med Flush (250 mL) 15 ML IV (14:28)
[2021-06-06] MEDS: 0.9 % NaCl (Sterile) Posiflush 10 mL IV (14:28)
[2021-06-06 14:30] VITALS: BP 146/91; PULSE 57; RESP 16; TEMP 35.7; O2SAT 98
[2021-06-06 15:07] VITALS: BP 135/68; PULSE 61; RESP 16; TEMP 36; O2SAT 98
[2021-06-06] MEDS: 0.9% NaCl VAD Flush IV (15:09)
== END ==
PROVIDERS: PCP Nurse Practitioner; Referring Provider Psychiatry & Neurology Neurology; Visit Provider Psychiatry & Neurology Neurology
DX: E71.40 Disorder of carnitine metabolism, unspecified (principal)
CPT/HCPCS: 96365; J7040; J7050; A4216

== ENCOUNTER → 2021-06-11 14:20 | Outpatient (CLI) | payer MEDICARE, BC, SELFPAY ==
[2021-06-11] MEDS: 0.9% NaCl VAD Flush IV ×2 (14:28→15:17)
[2021-06-11] MEDS: 0.9% NaCl IVPB Med Flush (250 mL) 15 ML IV (14:28)
[2021-06-11 14:33] VITALS: BP 165/71; PULSE 60; RESP 16; TEMP 35.7; O2SAT 100
[2021-06-11 15:22] VITALS: BP 143/82; PULSE 60; RESP 16; TEMP 36.1; O2SAT 98
== END ==
PROVIDERS: PCP Nurse Practitioner; Referring Provider Psychiatry & Neurology Neurology; Visit Provider Psychiatry & Neurology Neurology
DX: E71.40 Disorder of carnitine metabolism, unspecified (principal)
CPT/HCPCS: 96365; J7040; J7050; A4216

== ENCOUNTER → 2021-06-12 14:38 | Outpatient (CLI) | payer MEDICARE, BC, SELFPAY ==
[2021-06-12] MEDS: 0.9% NaCl VAD Flush IV ×2 (14:49→15:34)
[2021-06-12 14:53] VITALS: BP 162/77; PULSE 64; RESP 16; TEMP 35.9; O2SAT 100
[2021-06-12] MEDS: 0.9% NaCl IVPB Med Flush (250 mL) 15 ML IV (15:30)
[2021-06-12 15:35] VITALS: BP 176/72; PULSE 63; RESP 16; TEMP 35.8
[2021-06-12 15:54] VITALS: BP 162/77
== END ==
PROVIDERS: PCP Nurse Practitioner; Referring Provider Psychiatry & Neurology Neurology; Visit Provider Psychiatry & Neurology Neurology
DX: E71.40 Disorder of carnitine metabolism, unspecified (principal)
CPT/HCPCS: 96365; J7040; J7050; A4216

== ENCOUNTER 2021-06-25 13:47 | Outpatient (CLI) | payer MEDICARE, BC, SELFPAY ==
[2021-06-25 14:01] VITALS: BP 123/59; PULSE 61; RESP 16; TEMP 35.8; O2SAT 95
[2021-06-25] MEDS: 0.9% NaCl IVPB Med Flush (250 mL) 15 ML IV (14:04)
[2021-06-25] MEDS: 0.9% NaCl VAD Flush IV ×2 (14:04→14:48)
[2021-06-25 14:48] VITALS: BP 127/74; PULSE 61; RESP 16; TEMP 35.6; O2SAT 99
== END 2021-06-25 23:59 | disposition short-term general hospital (02) ==
LOC: MEDOUTP 13:47
PROVIDERS: PCP Nurse Practitioner; Referring Provider Psychiatry & Neurology Neurology; Visit Provider Psychiatry & Neurology Neurology
DX: E71.40 Disorder of carnitine metabolism, unspecified (principal)
CPT/HCPCS: 96365; J7040; J7050; A4216

== ENCOUNTER 2021-06-27 13:50 | Outpatient (CLI) | payer MEDICARE, BC, SELFPAY ==
[2021-06-27 14:04] VITALS: BP 149/62; PULSE 58; RESP 16; TEMP 36.3; O2SAT 98
[2021-06-27] MEDS: 0.9% NaCl VAD Flush IV ×2 (14:04→14:42)
[2021-06-27 14:42] VITALS: BP 150/73; PULSE 55; RESP 16; O2SAT 100
== END 2021-06-27 23:59 | disposition short-term general hospital (02) ==
LOC: MEDOUTP 13:50
PROVIDERS: PCP Nurse Practitioner; Referring Provider Psychiatry & Neurology Neurology; Visit Provider Psychiatry & Neurology Neurology
DX: E71.40 Disorder of carnitine metabolism, unspecified (principal)
CPT/HCPCS: 96365; J7040; A4216

== ENCOUNTER 2021-07-01 14:22 | Outpatient (CLI) | payer MEDICARE, BC, SELFPAY ==
[2021-07-01] MEDS: 0.9% NaCl VAD Flush IV ×2 (14:28→15:20)
[2021-07-01] MEDS: 0.9% NaCl IVPB Med Flush (250 mL) 15 ML IV (14:29)
[2021-07-01 14:31] VITALS: BP 134/68; PULSE 57; RESP 16; O2SAT 100
[2021-07-01 15:24] VITALS: BP 131/61; PULSE 56; RESP 16; TEMP 36.7; O2SAT 100
== END 2021-07-01 23:59 | disposition short-term general hospital (02) ==
LOC: MEDOUTP 14:23
PROVIDERS: PCP Nurse Practitioner; Referring Provider Psychiatry & Neurology Neurology; Visit Provider Psychiatry & Neurology Neurology
DX: E71.40 Disorder of carnitine metabolism, unspecified (principal)
CPT/HCPCS: 96365; J7040; J7050; A4216

== ENCOUNTER 2021-07-11 13:58 | Outpatient (CLI) | payer MEDICARE, BC, SELFPAY ==
[2021-07-11] MEDS: 0.9% NaCl VAD Flush IV ×2 (14:08→14:57)
[2021-07-11] MEDS: 0.9% NaCl IVPB Med Flush (250 mL) 15 ML IV (14:09)
[2021-07-11 14:12] VITALS: BP 140/96; PULSE 61; RESP 16; TEMP 36.9; O2SAT 98
== END 2021-07-11 23:59 | disposition short-term general hospital (02) ==
LOC: MEDOUTP 13:59
PROVIDERS: PCP Nurse Practitioner; Referring Provider Psychiatry & Neurology Neurology; Visit Provider Psychiatry & Neurology Neurology
DX: E71.40 Disorder of carnitine metabolism, unspecified (principal)
CPT/HCPCS: 96365; J7040; J7050; A4216

== ENCOUNTER 2021-07-15 14:28 | Outpatient (CLI) | payer MEDICARE, BC, SELFPAY ==
[2021-07-15] MEDS: 0.9% NaCl VAD Flush IV ×2 (14:47→15:34)
[2021-07-15] MEDS: 0.9% NaCl IVPB Med Flush (250 mL) 15 ML IV (14:53)
[2021-07-15 14:57] VITALS: BP 143/74; PULSE 62; RESP 16; TEMP 35.5; O2SAT 98
[2021-07-15 15:39] VITALS: BP 155/78; PULSE 57; RESP 16; TEMP 35.6; O2SAT 98
== END 2021-07-15 23:59 | disposition short-term general hospital (02) ==
LOC: MEDOUTP 14:29
PROVIDERS: PCP Nurse Practitioner; Referring Provider Psychiatry & Neurology Neurology; Visit Provider Psychiatry & Neurology Neurology
DX: E71.40 Disorder of carnitine metabolism, unspecified (principal)
CPT/HCPCS: 96365; J7040; J7050; A4216

== ENCOUNTER 2021-07-18 14:01 | Outpatient (CLI) | payer MEDICARE, BC, SELFPAY ==
[2021-07-18] MEDS: 0.9% NaCl VAD Flush IV ×2 (14:05→15:07)
[2021-07-18] MEDS: 0.9% NaCl IVPB Med Flush (250 mL) 15 ML IV (14:05)
[2021-07-18 14:10] VITALS: BP 143/64; PULSE 60; RESP 16; TEMP 35.9; O2SAT 100
== END 2021-07-18 23:59 | disposition short-term general hospital (02) ==
LOC: MEDOUTP 14:01
PROVIDERS: PCP Nurse Practitioner; Referring Provider Psychiatry & Neurology Neurology; Visit Provider Psychiatry & Neurology Neurology
DX: E71.40 Disorder of carnitine metabolism, unspecified (principal)
CPT/HCPCS: 96365; J7040; J7050; A4216

== ENCOUNTER 2021-07-29 14:09 | Outpatient (CLI) | payer MEDICARE, BC, SELFPAY ==
[2021-07-29 14:39] VITALS: BP 182/63; PULSE 61; RESP 16; O2SAT 98
[2021-07-29] MEDS: 0.9% NaCl IVPB Med Flush (250 mL) 15 ML IV (14:47)
[2021-07-29] MEDS: 0.9% NaCl VAD Flush IV ×2 (14:47→15:23)
== END 2021-07-29 23:59 | disposition home or self-care (01) ==
LOC: MEDOUTP 14:09
PROVIDERS: PCP Nurse Practitioner; Referring Provider Psychiatry & Neurology Neurology; Visit Provider Psychiatry & Neurology Neurology
DX: E71.40 Disorder of carnitine metabolism, unspecified (principal)
CPT/HCPCS: 96365; J7040; J7050; A4216

== ENCOUNTER 2021-08-01 14:08 | Outpatient (CLI) | payer MEDICARE, BC, SELFPAY ==
[2021-08-01] MEDS: 0.9% NaCl VAD Flush IV ×2 (14:18→14:56)
[2021-08-01 14:19] VITALS: BP 177/79; PULSE 57; RESP 16; TEMP 36.2; O2SAT 96
== END 2021-08-01 23:59 | disposition home or self-care (01) ==
LOC: MEDOUTP 14:08
PROVIDERS: PCP Nurse Practitioner; Referring Provider Psychiatry & Neurology Neurology; Visit Provider Psychiatry & Neurology Neurology
DX: E71.40 Disorder of carnitine metabolism, unspecified (principal)
CPT/HCPCS: 96365; J7040; A4216

== ENCOUNTER 2021-08-06 13:46 | Outpatient (CLI) | payer MEDICARE, BC, SELFPAY ==
[2021-08-06] MEDS: 0.9% NaCl VAD Flush IV ×2 (14:02→14:50)
[2021-08-06] MEDS: 0.9% NaCl IVPB Med Flush (250 mL) 15 ML IV (14:02)
[2021-08-06 14:08] VITALS: BP 161/82; PULSE 63; RESP 16; TEMP 36.1; O2SAT 97; BMI 36.0
== END 2021-08-06 23:59 | disposition home or self-care (01) ==
LOC: MEDOUTP 13:46
PROVIDERS: PCP Nurse Practitioner; Referring Provider Psychiatry & Neurology Neurology; Visit Provider Psychiatry & Neurology Neurology
DX: E71.40 Disorder of carnitine metabolism, unspecified (principal)
CPT/HCPCS: 96365; J7040; J7050; A4216

== ENCOUNTER 2021-08-08 14:02 | Outpatient (CLI) | payer MEDICARE, BC, SELFPAY ==
[2021-08-08] MEDS: 0.9% NaCl VAD Flush IV ×2 (14:20→14:55)
[2021-08-08 14:21] VITALS: RESP 16; TEMP 36.2; O2SAT 98
[2021-08-08 14:57] VITALS: BP 135/70; PULSE 62; RESP 16
== END 2021-08-08 23:59 | disposition home or self-care (01) ==
LOC: MEDOUTP 14:02
PROVIDERS: PCP Nurse Practitioner; Referring Provider Psychiatry & Neurology Neurology; Visit Provider Psychiatry & Neurology Neurology
DX: E71.40 Disorder of carnitine metabolism, unspecified (principal)
CPT/HCPCS: 96365; J7040; A4216

== ENCOUNTER 2021-08-12 14:34 | Outpatient (CLI) | payer MEDICARE, BC, SELFPAY ==
[2021-08-12] MEDS: 0.9% NaCl VAD Flush IV ×2 (14:46→15:27)
[2021-08-12] MEDS: 0.9% NaCl IVPB Med Flush (250 mL) 15 ML IV (14:46)
[2021-08-12 14:47] VITALS: BP 123/61; PULSE 67; RESP 16; O2SAT 97
[2021-08-12 15:30] VITALS: BP 128/61; PULSE 64; RESP 16
== END 2021-08-12 23:59 | disposition home or self-care (01) ==
LOC: MEDOUTP 14:34
PROVIDERS: PCP Nurse Practitioner; Referring Provider Psychiatry & Neurology Neurology; Visit Provider Psychiatry & Neurology Neurology
DX: E71.40 Disorder of carnitine metabolism, unspecified (principal)
CPT/HCPCS: 96365; J7040; J7050; A4216

== ENCOUNTER 2021-08-14 13:57 | Outpatient (CLI) | payer MEDICARE, BC, SELFPAY ==
[2021-08-14] MEDS: 0.9% NaCl IVPB Med Flush (250 mL) 15 ML IV (14:14)
[2021-08-14] MEDS: 0.9 % NaCl (Sterile) Posiflush 10 mL IV (14:14)
[2021-08-14 14:20] VITALS: BP 150/73; PULSE 61; RESP 16; TEMP 36.1; O2SAT 96; BMI 36.8
[2021-08-14] MEDS: 0.9% NaCl VAD Flush IV (15:07)
== END 2021-08-14 23:59 | disposition home or self-care (01) ==
LOC: MEDOUTP 13:57
PROVIDERS: PCP Nurse Practitioner; Referring Provider Psychiatry & Neurology Neurology; Visit Provider Psychiatry & Neurology Neurology
DX: E71.40 Disorder of carnitine metabolism, unspecified (principal)
CPT/HCPCS: 96365; J7040; J7050; A4216

== ENCOUNTER 2021-08-19 14:26 | Outpatient (CLI) | payer MEDICARE, BC, SELFPAY ==
[2021-08-19] MEDS: 0.9 % NaCl (Sterile) Posiflush 10 mL IV (14:33)
[2021-08-19 14:44] VITALS: BP 161/68; PULSE 59; RESP 16; TEMP 36.7; O2SAT 99; BMI 36.0
[2021-08-19] MEDS: 0.9% NaCl VAD Flush IV (15:22)
[2021-08-19 15:25] VITALS: BP 140/67; PULSE 58; RESP 16; TEMP 36.4; O2SAT 100
== END 2021-08-19 23:59 | disposition home or self-care (01) ==
LOC: MEDOUTP 14:26
PROVIDERS: PCP Nurse Practitioner; Referring Provider Psychiatry & Neurology Neurology; Visit Provider Psychiatry & Neurology Neurology
DX: E71.40 Disorder of carnitine metabolism, unspecified (principal)
CPT/HCPCS: 96365; J7040; A4216

== ENCOUNTER 2021-08-22 14:20 | Outpatient (CLI) | payer MEDICARE, BC, SELFPAY ==
[2021-08-22] MEDS: 0.9 % NaCl (Sterile) Posiflush 10 mL IV (14:28)
[2021-08-22 14:32] VITALS: BP 147/77; PULSE 60; RESP 18; O2SAT 99
[2021-08-22] MEDS: 0.9% NaCl VAD Flush IV (15:11)
[2021-08-22 15:13] VITALS: BP 138/65; PULSE 69; RESP 16
== END 2021-08-22 23:59 | disposition home or self-care (01) ==
LOC: MEDOUTP 14:20
PROVIDERS: PCP Nurse Practitioner; Referring Provider Psychiatry & Neurology Neurology; Visit Provider Psychiatry & Neurology Neurology
DX: E71.40 Disorder of carnitine metabolism, unspecified (principal)
CPT/HCPCS: 96365; J7040; A4216

== ENCOUNTER 2021-08-27 13:42 | Outpatient (CLI) | payer MEDICARE, BC, SELFPAY ==
[2021-08-27] MEDS: 0.9 % NaCl (Sterile) Posiflush 10 mL IV (14:14)
[2021-08-27] MEDS: 0.9% NaCl IVPB Med Flush (250 mL) 15 ML IV (14:14)
[2021-08-27 14:24] VITALS: BP 141/68; PULSE 60; RESP 16; TEMP 35.7; O2SAT 97; BMI 36.0
[2021-08-27] MEDS: 0.9% NaCl VAD Flush IV (15:13)
[2021-08-27 15:18] VITALS: BP 168/72; PULSE 67; RESP 16; TEMP 36.6; O2SAT 100
== END 2021-08-27 23:59 | disposition home or self-care (01) ==
LOC: MEDOUTP 13:42
PROVIDERS: PCP Nurse Practitioner; Referring Provider Psychiatry & Neurology Neurology; Visit Provider Psychiatry & Neurology Neurology
DX: E71.40 Disorder of carnitine metabolism, unspecified (principal)
CPT/HCPCS: 96365; J7040; J7050; A4216

== ENCOUNTER 2021-08-29 14:27 | Outpatient (CLI) | payer MEDICARE, BC, SELFPAY ==
[2021-08-29] MEDS: 0.9 % NaCl (Sterile) Posiflush 10 mL IV (14:34)
[2021-08-29 14:37] VITALS: BP 145/63; PULSE 59; RESP 16; TEMP 36.6
[2021-08-29] MEDS: 0.9% NaCl VAD Flush IV (15:20)
== END 2021-08-29 23:59 | disposition home or self-care (01) ==
LOC: MEDOUTP 14:27
PROVIDERS: PCP Nurse Practitioner; Referring Provider Psychiatry & Neurology Neurology; Visit Provider Psychiatry & Neurology Neurology
DX: E71.40 Disorder of carnitine metabolism, unspecified (principal)
CPT/HCPCS: 96365; J7040; A4216

== ENCOUNTER 2021-09-02 14:28 | Outpatient (CLI) | payer MEDICARE, BC, SELFPAY ==
[2021-09-02 14:35] VITALS: BP 146/75; PULSE 57; RESP 16; O2SAT 99
[2021-09-02] MEDS: 0.9 % NaCl (Sterile) Posiflush 10 mL IV (14:38)
[2021-09-02] MEDS: 0.9% NaCl VAD Flush IV (15:25)
== END 2021-09-02 23:59 | disposition home or self-care (01) ==
LOC: MEDOUTP 14:28
PROVIDERS: PCP Nurse Practitioner; Referring Provider Psychiatry & Neurology Neurology; Visit Provider Psychiatry & Neurology Neurology
DX: E71.40 Disorder of carnitine metabolism, unspecified (principal)
CPT/HCPCS: 96365; J7040; A4216

== ENCOUNTER 2021-09-05 14:04 | Outpatient (CLI) | payer MEDICARE, BC, SELFPAY ==
[2021-09-05] MEDS: 0.9 % NaCl (Sterile) Posiflush 10 mL IV (14:10)
[2021-09-05 14:12] VITALS: BP 142/89; PULSE 64; RESP 16; TEMP 36.1; O2SAT 97
[2021-09-05] MEDS: 0.9% NaCl VAD Flush IV (15:09)
== END 2021-09-05 23:59 | disposition home or self-care (01) ==
LOC: MEDOUTP 14:04
PROVIDERS: PCP Nurse Practitioner; Referring Provider Psychiatry & Neurology Neurology; Visit Provider Psychiatry & Neurology Neurology
DX: E71.40 Disorder of carnitine metabolism, unspecified (principal)
CPT/HCPCS: 96365; J7040; A4216

== ENCOUNTER 2021-09-09 14:20 | Outpatient (CLI) | payer MEDICARE, BC, SELFPAY ==
[2021-09-09] MEDS: 0.9 % NaCl (Sterile) Posiflush 10 mL IV (14:29)
[2021-09-09 14:38] VITALS: BP 145/71; PULSE 60; RESP 16; TEMP 36.6; O2SAT 100; BMI 36.0
[2021-09-09] MEDS: 0.9% NaCl VAD Flush IV (15:15)
[2021-09-09 15:19] VITALS: BP 154/68; PULSE 65; RESP 16; TEMP 36.4; O2SAT 99
== END 2021-09-09 23:59 | disposition home or self-care (01) ==
LOC: MEDOUTP 14:20
PROVIDERS: PCP Nurse Practitioner; Referring Provider Psychiatry & Neurology Neurology; Visit Provider Psychiatry & Neurology Neurology
DX: E71.40 Disorder of carnitine metabolism, unspecified (principal)
CPT/HCPCS: 96365; J7040; A4216

== ENCOUNTER 2021-09-12 14:04 | Outpatient (CLI) | payer MEDICARE, BC, SELFPAY ==
[2021-09-12 14:13] VITALS: BP 141/91; PULSE 61; RESP 16; TEMP 36.3; O2SAT 96; BMI 36.0
[2021-09-12] MEDS: 0.9 % NaCl (Sterile) Posiflush 10 mL IV (14:25)
[2021-09-12] MEDS: 0.9% NaCl VAD Flush IV (15:01)
[2021-09-12 15:06] VITALS: BP 161/73; PULSE 60; RESP 16
== END 2021-09-12 23:59 | disposition home or self-care (01) ==
LOC: MEDOUTP 14:06
PROVIDERS: PCP Nurse Practitioner; Referring Provider Psychiatry & Neurology Neurology; Visit Provider Psychiatry & Neurology Neurology
DX: E71.40 Disorder of carnitine metabolism, unspecified (principal)
CPT/HCPCS: 96365; J7040; A4216

== ENCOUNTER 2021-09-18 13:52 | Outpatient (CLI) | payer MEDICARE, BC, SELFPAY ==
[2021-09-18 14:03] VITALS: BP 157/80; PULSE 63; RESP 18; TEMP 36.1; O2SAT 98
[2021-09-18] MEDS: 0.9% NaCl VAD Flush IV (15:13)
[2021-09-18 15:17] VITALS: BP 156/73; PULSE 60; RESP 12; TEMP 36.8; O2SAT 100
== END 2021-09-18 23:59 | disposition home or self-care (01) ==
LOC: MEDOUTP 13:52
PROVIDERS: PCP Nurse Practitioner; Referring Provider Psychiatry & Neurology Neurology; Visit Provider Psychiatry & Neurology Neurology
DX: E71.40 Disorder of carnitine metabolism, unspecified (principal)
CPT/HCPCS: 96365; J7040; A4216

== ENCOUNTER 2021-09-25 13:57 | Outpatient (CLI) | payer MEDICARE, BC, SELFPAY ==
[2021-09-25 14:10] VITALS: BP 160/72; PULSE 64; RESP 16; TEMP 36.4; O2SAT 98
== END 2021-09-25 23:59 | disposition home or self-care (01) ==
LOC: MEDOUTP 13:57
PROVIDERS: PCP Nurse Practitioner; Referring Provider Psychiatry & Neurology Neurology; Visit Provider Psychiatry & Neurology Neurology
DX: E71.40 Disorder of carnitine metabolism, unspecified (principal)
CPT/HCPCS: 96365; J7040; A4216

== ENCOUNTER 2021-09-26 14:09 | Outpatient (CLI) | payer MEDICARE, BC, SELFPAY ==
[2021-09-26 14:26] VITALS: BP 162/75; PULSE 65; RESP 16; TEMP 35.9; O2SAT 98
[2021-09-26 15:24] VITALS: BP 153/72; PULSE 72; RESP 16; TEMP 36.3; O2SAT 98
== END 2021-09-26 23:59 | disposition home or self-care (01) ==
LOC: MEDOUTP 14:09
PROVIDERS: PCP Nurse Practitioner; Referring Provider Psychiatry & Neurology Neurology; Visit Provider Psychiatry & Neurology Neurology
DX: E71.40 Disorder of carnitine metabolism, unspecified (principal)
CPT/HCPCS: 96365; J7040; A4216

== ENCOUNTER 2021-09-30 16:24 | Emergency (ER) | payer MEDICARE, BC, SELFPAY ==
[2021-09-30 16:25] VITALS: BP 179/89; PULSE 65; RESP 15; TEMP 35.5; O2SAT 99; BMI 34.9
[2021-09-30 16:32] VITALS: BP 177/96; PULSE 68; RESP 16; O2SAT 95
[2021-09-30] MEDS: Lidocaine 1% (20 ml mdv) 20 ML Vial INFILT (16:40)
--- NOTE | 2021-09-30 16:50 | RAD_ITS ---
EXAM: XR RIGHT FINGERS, 2 OR MORE VIEWS CLINICAL INDICATION: injury TECHNIQUE: Frontal, lateral and oblique views of the fingers of the right hand. This report was created using [email or web address] report generation technology. COMPARISON: None. FINDINGS: BONES/JOINTS: Unremarkable. No acute fracture. No subluxation. Normal alignment. Preservation of the joint space. No sclerotic or destructive changes observed. SOFT TISSUES: Soft tissue swelling around the second digit. Oblique fracture of the middle phalanx of the second digit. Open fracture is of concern. No radiopaque foreign body. RAD/Finger(s) Min 2 Views IMPRESSION: Soft tissue swelling around the second digit. Oblique fracture of the middle phalanx of the second digit. Open fracture is of concern. Electronically Signed: Chele Puckett MD at 17:23 EDT Reading Location ID and State: [facility] / MD , Service support ,
--- NOTE | 2021-09-30 16:54 | EX.ED.UPPERE ---
HPI History of Present Illness Chief Complaint: Upper Extremity Injury Informant: patient Occured/Mechanism Comment: Crush injury right index finger Onset/Context/Timing Current Severity: Moderate Maximum Severity: Severe Narrative Narrative: Patient presents secondary to crush injury to the right index finger. She got her right index finger caught in a sliding door. She is right-hand dominant. Last tetanus update was 2 years ago. [facility] Medical History Asthma, exercise induced Carnitine deficiency Cervical vertebral fusion Depression TBI (traumatic brain injury) Home Medications albuterol sulfate [Ventolin HFA] 1 - 2 puff INHALATION Q4H PRN PRN 03/21/13 [History Last Taken Unknown] coenzyme Q10 [Co Q-10] 200 mg PO DAILY 03/21/13 [History Last Taken Unknown] fluoxetine 20 mg PO DAILY 03/21/13 [History Last Taken 05/19/16] trazodone 50 mg PO PRN PRN 03/21/13 [History Last Taken Unknown] multivitamin with folic acid [Thera] 1 tab PO DAILY 05/23/13 [History Last Taken Unknown] triamcinolone acetonide [Nasal Allergy] 2 spray NASAL DAILY PRN 05/23/13 [History Last Taken Unknown] levocarnitine 4 tab PO Q6H 03/17/16 [History Last Taken 05/19/16] amlodipine 5 mg PO DAILY 04/28/16 [History Last Taken 01/25/18 07:30] cyclosporine [Restasis] 1 drp EACH EYE BID 05/19/16 [History Last Taken 05/19/16] cyclobenzaprine 5 mg PO TID PRN PRN 01/19/18 [History Last Taken Unknown] sulfasalazine 500 mg PO DAILY 01/19/18 [History Last Taken Unknown] sulindac 150 mg PO BID 01/19/18 [History Last Taken Unknown] tramadol 50 mg PO Q6H PRN PRN 01/19/18 [History Last Taken Unknown] amoxicillin-pot clavulanate 1 tab PO Q12H PRN 03/18/21 [History Last Taken Unknown] cephalexin 500 mg PO Q6 #40 cap 09/30/21 [Rx Last Taken Unknown] oxycodone-acetaminophen [Percocet] 1 tab PO Q6H PRN 3 Days #12 tab 09/30/21 [Rx Last Taken Unknown] Allergy/AdvReac Type Severity Reaction Status Date / Time pentazocine Allergy Unknown Verified 09/30/21 16:27 pentazocine lactate Allergy Unknown Verified 09/30/21 16:27 [From Talwin] metoclopramide AdvReac Other Verified 09/30/21 16:27 Surgical History (Updated 09/30/21 @ 17:09 by Leydi Patel) Hx of appendectomy Social History Smoking Status: Never smoker ROS ROS ED Constitutional Constitutional ED: Denies chills or fever(s) Eyes Eyes: Denies change in vision ENT ENT ED: Denies sore throat Cardiovascular Cardiovascular: Denies chest pain Respiratory/Chest Respiratory/Chest: Denies cough or dyspnea Gastrointestinal Gastrointestinal: Denies abdominal pain, nausea or vomiting Genitourinary Genitourinary ED: Denies dysuria Musculoskeletal Musculoskeletal: Reports other Details: Right index finger pain ; Denies back pain Integumentary Denies rash Neurologic Neurologic: Denies headache(s) Allergic/Immunologic Allergic/Immunologic ED: Denies urticaria EXAM Physical Exam Const Vital Signs: 09/30/21 16:25 Temperature 96 F L Temperature Source Temporal Pulse Rate 65 Respiratory Rate 15 Blood Pressure 179/89 H Blood Pressure Mean 119 Pulse Ox 99 Oxygen Delivery Method Room Air Positive well nourished and well developed General Appearance ED: well developed HEENT normocephalic Eyes PERRL Neck supple Chest Wall inspection of chest normal and palpation of chest normal Resp normal respiratory effort and clear to auscultation bilaterally Cardio regular rate and regular rhythm GI non-tender Palpation: soft Extremity Extremity Narrative: Multiple complex lacerations to the right index finger. Total laceration length 10 cm. Patient does have sensation of the distal tip. Good cap refill is noted. Neuro oriented x3 Neuro Narrative: Sensation intact over distal phalanx. Sensorium / Orientation: alert MDM MDM MDM Narrative Medical decision making narrative: Digital block performed with combination of lidocaine and Marcaine for pain control. Right index finger x-rays obtained. Radiography Diagnostic Testing: Radiology Impression Finger X-Ray 09/30/21 16:50 IMPRESSION: Soft tissue swelling around the second digit. Oblique fracture of the middle phalanx of the second digit. Open fracture is of concern. Electronically Signed: Chele Puckett MD at 17:23 EDT , Treatment and Re-Evaluation Narrative: Right index finger lacerations repaired best as possible. Please see procedure note. Patient be referred to orthopedic hand for follow-up. She will be started on Keflex as well as oxycodone for pain control. Procedures Lacerations Right index finger laceration: Depth: Sub Q Prep: Shyocasta-Cletracy Laceration repair: Digital block (5 cc total with mix of lidocaine and Marcaine.) Number of Sutures/Deonna: 19 Comment: Total of 19 sutures placed to close wound after significant irrigation. Dressing applied and patient placed in AlumaFoam splint. Discharge Plan Triage Chief Complaint: Upper Extremity Injury ED Provider: Breanna Ryan Dx/Rx/DC Orders Clinical Impression: Open fracture of middle phalanx of right index finger Instructions: ED Fracture, Finger, Open Prescriptions: New oxycodone-acetaminophen [Percocet] 5-325 mg tablet 1 tab PO Q6H PRN (Reason: pain) 3 Days Qty: 12 RF: 0 cephalexin 500 mg capsule 500 mg PO Q6 Qty: 40 RF: 0 No Action trazodone 50 MG tablet 50 mg PO PRN PRN (Reason: Anxiety) RF: 0 fluoxetine 20 MG capsule 20 mg PO DAILY RF: 0 coenzyme Q10 [Co Q-10] 100 MG capsule 200 mg PO DAILY RF: 0 albuterol sulfate [Ventolin HFA] 1 INHALER inhaler 1 - 2 puff inhalation Q4H PRN PRN (Reason: Asthma) RF: 0 triamcinolone acetonide [Nasal Allergy] 1 SPRAY aerosol,spray 2 spray NASAL DAILY PRN (Reason: Congestion) RF: 0 multivitamin with folic acid [Thera] 1 TABLET tablet 1 tab PO DAILY RF: 0 levocarnitine 330 MG tablet 4 tab PO Q6H RF: 0 amlodipine 5 MG tablet 5 mg PO DAILY RF: 0 cyclosporine [Restasis] 1 DROP dropperette 1 drp Each Eye BID RF: 0 cyclobenzaprine 10 MG tablet 5 mg PO TID PRN PRN (Reason: cramps ) RF: 0 sulfasalazine 500 MG tablet 500 mg PO DAILY RF: 0 sulindac 150 MG tablet 150 mg PO BID RF: 0 tramadol 50 MG tablet 50 mg PO Q6H PRN PRN (Reason: pain ) RF: 0 amoxicillin-pot clavulanate 875-125 mg Tablet 1 tab PO Q12H PRN RF: 0 Primary Care Provider: Aislinn Espinal NP Referrals: Mendez Farah MD [NON-STAFF] - 5-7 Days Aislinn Espinal NP, LONG TERM CARE ADMINISTRATOR-C [Primary Care Provider] - Activity Restrictions/Additional Instructions: Please call orthopedic hand surgery for follow-up. You can see any the practitioners in that office. You can take oxycodone as written for pain. Please do not take tramadol in addition to oxycodone. Disposition Disposition: Home, Self Care
[2021-09-30] MEDS: Bupivacaine Mpf 0.5% 30 ML VIAL INFILT (17:10)
[2021-09-30 18:55] VITALS: BP 122/79; PULSE 71; RESP 16; O2SAT 98
== END 2021-09-30 18:56 | disposition home or self-care (01) ==
PROVIDERS: Emergency Provider Emergency Medicine; PCP Nurse Practitioner; Visit Provider Emergency Medicine
DX: S62.620B Displaced fracture of middle phalanx of right index finger, initial encounter for open fracture (principal); W23.0XXA Caught, crushed, jammed, or pinched between moving objects, initial encounter
CPT/HCPCS: 12004; 73140; 99283

== ENCOUNTER → 2021-10-07 | Outpatient (CLI) | payer MEDICARE, BC, SELFPAY ==
[2021-10-07] MEDS: 0.9 % NaCl (Sterile) Posiflush 10 mL IV (14:24)
[2021-10-07 14:28] VITALS: BP 153/69; PULSE 57; RESP 16; TEMP 35.8; O2SAT 96; BMI 24.0
[2021-10-07] MEDS: 0.9% NaCl VAD Flush IV (15:12)
[2021-10-07 15:13] VITALS: BP 139/79; PULSE 60; RESP 16; TEMP 36.4; O2SAT 98
== END | disposition home or self-care (01) ==
LOC: MEDOUTP 14:10
PROVIDERS: PCP Nurse Practitioner; Referring Provider Psychiatry & Neurology Neurology; Visit Provider Psychiatry & Neurology Neurology
DX: E71.40 Disorder of carnitine metabolism, unspecified (principal)
CPT/HCPCS: 96365; J7040; A4216

== ENCOUNTER → 2021-10-15 | Outpatient (CLI) | payer MEDICARE, BC, SELFPAY ==
[2021-10-15 14:03] VITALS: BP 150/71; PULSE 56; RESP 18; TEMP 36.8; O2SAT 99; BMI 35.0
[2021-10-15 14:55] VITALS: BP 151/67; PULSE 56; RESP 16; TEMP 36.6; O2SAT 100
== END | disposition home or self-care (01) ==
LOC: MEDOUTP 13:59
PROVIDERS: PCP Nurse Practitioner; Referring Provider Psychiatry & Neurology Neurology; Visit Provider Psychiatry & Neurology Neurology
DX: E71.40 Disorder of carnitine metabolism, unspecified (principal)
CPT/HCPCS: 96365; J7040; A4216

== ENCOUNTER → 2021-10-17 | Outpatient (CLI) | payer MEDICARE, BC, SELFPAY ==
[2021-10-17] MEDS: 0.9 % NaCl (Sterile) Posiflush 10 mL IV (14:02)
[2021-10-17 14:07] VITALS: BP 141/66; PULSE 62; RESP 16; TEMP 36.8; O2SAT 96
[2021-10-17] MEDS: 0.9% NaCl VAD Flush IV (14:51)
[2021-10-17 14:56] VITALS: BP 149/63; PULSE 57
== END | disposition home or self-care (01) ==
LOC: MEDOUTP 13:52
PROVIDERS: PCP Nurse Practitioner; Referring Provider Psychiatry & Neurology Neurology; Visit Provider Psychiatry & Neurology Neurology
DX: E71.40 Disorder of carnitine metabolism, unspecified (principal)
CPT/HCPCS: 96365; J7040; A4216

== ENCOUNTER → 2021-10-28 | Outpatient (CLI) | payer MEDICARE, BC, SELFPAY ==
[2021-10-28 14:36] VITALS: BP 163/86; PULSE 65; RESP 16; TEMP 36.9; O2SAT 98; BMI 36.8
[2021-10-28 15:39] VITALS: BP 168/68; PULSE 68; RESP 16; TEMP 36.6
== END | disposition home or self-care (01) ==
LOC: MEDOUTP 14:23
PROVIDERS: PCP Nurse Practitioner; Referring Provider Psychiatry & Neurology Neurology; Visit Provider Psychiatry & Neurology Neurology
DX: E71.40 Disorder of carnitine metabolism, unspecified (principal)
CPT/HCPCS: 96365; J7040; A4216

== ENCOUNTER → 2021-10-31 | Outpatient (CLI) | payer MEDICARE, BC, SELFPAY ==
[2021-10-31 14:14] VITALS: BP 154/49; PULSE 71; RESP 16; TEMP 36.2; O2SAT 97; BMI 39.4
[2021-10-31 15:13] VITALS: BP 140/58; PULSE 68; RESP 16; TEMP 36.5; O2SAT 97
== END | disposition home or self-care (01) ==
LOC: MEDOUTP 14:05
PROVIDERS: PCP Nurse Practitioner; Referring Provider Psychiatry & Neurology Neurology; Visit Provider Psychiatry & Neurology Neurology
DX: E71.40 Disorder of carnitine metabolism, unspecified (principal)
CPT/HCPCS: 96365; J7040; J7050; A4216

== ENCOUNTER → 2021-11-04 | Outpatient (CLI) | payer MEDICARE, BC, SELFPAY ==
[2021-11-04 14:30] VITALS: BP 160/70; PULSE 61; RESP 16; TEMP 37; O2SAT 97
[2021-11-04] MEDS: 0.9% NaCl IVPB Med Flush (250 mL) 15 ML IV (14:37)
[2021-11-04] MEDS: 0.9% NaCl VAD Flush IV ×2 (14:37→15:27)
== END | disposition home or self-care (01) ==
LOC: MEDOUTP 14:10
PROVIDERS: PCP Nurse Practitioner; Referring Provider Psychiatry & Neurology Neurology; Visit Provider Psychiatry & Neurology Neurology
DX: E71.40 Disorder of carnitine metabolism, unspecified (principal)
CPT/HCPCS: 96365; J7040; J7050; A4216

== ENCOUNTER 2021-11-06 14:30 | Outpatient (RCR) | payer MEDICARE, BC, SELFPAY ==
--- NOTE | 2021-11-04 11:02 | HP.OTEVAL ---
Patient's Visit Information FELIX CHAVEZ is a 71 year old F, referred to Occupational Therapy by CHRISTIANO MALDONADO, with a diagnosis of open displaced fracture of middle phalanx of right index finger. Date of Evaluation: 11/03/21 Occupational Therapist: Georgia Ramos, OTR/L, CHT - Subjective Pt. is a 71 y/o female who caught her R index finger into door fracturing the middle phalanx. She had an ORIF of R IF middle phalanx, pinning on 10-06-21, 4 weeks post op . She was referred by Dr. Maldonado. 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 Pt. reported that she has difficulty with using blow dryer and clothing mgt. She also reported using compensatory techniques for most tasks. She would like to return to PLOF. 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 she reported she had plants jamil Comments: R hand dominant - Pain Right Hand 1 Pain Intensity Range: 10 - ROM MP: R IF +3/45 L IF -3/65 PIP: R IF +10/30L IF +20/90 ROM Comments: R IF DIP is pinned. - Strength Strength Comments: to be assessed on next treatment - Edema PIP: R IF 7cm L 6 cm DIP: R IF 6 1/2 cm L 5cm - Sensation Index: L 3.61 R 4.08 Sensation Comments: Decreased sensation to R IF - Quick DASH-Disab of Arm,Shoulder& Hand Quick DASH Score: 47.7250 - Goals Goal:: Goal to be determined after strength assessment, 2nd treatment. Goal:: Pt. to increase R IF MP extension and flexion to 0/60 for increasing cardiology clinical nurse specialist of smaller objects for kitchen tasks by dc. Pt. to increase R IF PIP flexion to 80* for FM tasks such as handwriting by dc. When appropriate will asses DIP goals Goal:: Pt. will have decreased edema in R IF PIP and DIP joints by 1 cm (from PIP 7cm to 6 cm, DIP 6 1/2 to 5 1/2) to increase ROM in joints for IADL tasks by dc Goal:: Pt. will report no difficulty with toileting tasks (clothing mgt) and will be independent by dc. - Rehabilitation General Assessment: Patient has been referred by Dr. Maldonado for open displaced fracture of middle phalanx of right index finger. She is 4 weeks post op (10-06-21). She has a pin through her DIP joint, no flexion to this joint. CHT educated pt. on what to expect with skin healing. Because of decreased R IF MP, and PIP flexion she has had deficits with grasping and FM tasks. She would benefit from skilled OT services 2x a week for 6 weeks to improve with ROM, strength, decrease swelling, skin integrity to complete ADL tasks. Pt. demo'd understanding & agreeable to POC. Therapy session was directly supervised and doc. reviewed and approved by Georgia Ramos OTR/Marita,CHT. Rehabilitation Potential: Good - Anticipated Interventions Early Active Motion, A/AAROM/PROM, Strengthening, Edema Control, Scar Care, Wound Care, Orthoses, Education re Diagnosis - Visit Plan Frequency: 2x /Week Duration: 6 Weeks General Plan: 9 hole peg test during next treatment. TEXT: Thank you for the opportunity to evaluate your patient. For Medicare and Medicare HMO plans, please review the plan of care and approve it. It will need to be FAXED BACK to us at [phone] for Medicare purposes. Please let me know if there are questions or concerns regarding this plan of care. Physician Signature: Date:
== END 2021-11-06 19:00 | disposition home or self-care (01) ==
LOC: OT 14:30
PROVIDERS: PCP Nurse Practitioner
DX: S62.620B Displaced fracture of middle phalanx of right index finger, initial encounter for open fracture (principal)
CPT/HCPCS: 97110; 97140; 97165

== ENCOUNTER → 2021-11-14 | Outpatient (CLI) | payer MEDICARE, BC, SELFPAY ==
[2021-11-14] MEDS: 0.9 % NaCl (Sterile) Posiflush 10 mL IV (14:07)
[2021-11-14] MEDS: 0.9% NaCl IVPB Med Flush (250 mL) 15 ML IV (14:14)
[2021-11-14 14:16] VITALS: BP 136/70; PULSE 60; RESP 16; TEMP 36.4; O2SAT 95
[2021-11-14] MEDS: 0.9% NaCl VAD Flush IV (15:30)
== END | disposition home or self-care (01) ==
LOC: MEDOUTP 13:57
PROVIDERS: PCP Nurse Practitioner; Referring Provider Psychiatry & Neurology Neurology; Visit Provider Psychiatry & Neurology Neurology
DX: E71.40 Disorder of carnitine metabolism, unspecified (principal)
CPT/HCPCS: 96365; J7040; J7050; A4216

== ENCOUNTER → 2021-11-25 | Outpatient (CLI) | payer MEDICARE, BC, SELFPAY ==
[2021-11-25 14:51] VITALS: BP 149/80; PULSE 66; RESP 16; TEMP 35.9; O2SAT 98
[2021-11-25 15:48] VITALS: BP 137/72; PULSE 61; RESP 16
== END | disposition home or self-care (01) ==
LOC: MEDOUTP 14:39
PROVIDERS: PCP Nurse Practitioner; Referring Provider Psychiatry & Neurology Neurology; Visit Provider Psychiatry & Neurology Neurology
DX: E71.40 Disorder of carnitine metabolism, unspecified (principal)
CPT/HCPCS: 96365; J7040; A4216

== ENCOUNTER → 2021-11-28 | Outpatient (CLI) | payer MEDICARE, BC, SELFPAY ==
[2021-11-28 14:27] VITALS: BP 145/69; PULSE 68; RESP 20; TEMP 36.4; O2SAT 96; BMI 36.8
[2021-11-28] MEDS: 0.9 % NaCl (Sterile) Posiflush 10 mL IV (14:36)
[2021-11-28] MEDS: 0.9% NaCl VAD Flush IV (15:25)
[2021-11-28 15:28] VITALS: BP 130/62; PULSE 62; RESP 16; O2SAT 100
== END | disposition home or self-care (01) ==
LOC: MEDOUTP 14:20
PROVIDERS: PCP Nurse Practitioner; Referring Provider Psychiatry & Neurology Neurology; Visit Provider Psychiatry & Neurology Neurology
DX: E71.40 Disorder of carnitine metabolism, unspecified (principal)
CPT/HCPCS: 96365; J7040; A4216

== ENCOUNTER → 2021-12-02 | Outpatient (CLI) | payer MEDICARE, BC, SELFPAY ==
[2021-12-02 15:10] VITALS: BP 155/71; PULSE 61; RESP 16; TEMP 36.1; O2SAT 97; BMI 36.8
[2021-12-02 16:26] VITALS: BP 162/75; PULSE 58; RESP 16; O2SAT 98
[2021-12-02 16:32] VITALS: BMI 36.8
== END | disposition home or self-care (01) ==
LOC: MEDOUTP 14:44
PROVIDERS: PCP Nurse Practitioner; Referring Provider Psychiatry & Neurology Neurology; Visit Provider Psychiatry & Neurology Neurology
DX: E71.40 Disorder of carnitine metabolism, unspecified (principal)
CPT/HCPCS: 96365; 96366; J7030; J7040

== ENCOUNTER → 2021-12-05 | Outpatient (CLI) | payer MEDICARE, BC, SELFPAY ==
[2021-12-05 14:36] VITALS: BP 163/81; PULSE 59; RESP 18; O2SAT 95
[2021-12-05] MEDS: 0.9% NaCl Peripheral Flush Adult/Peds IV (15:48)
== END | disposition home or self-care (01) ==
LOC: MEDOUTP 14:15
PROVIDERS: PCP Nurse Practitioner; Referring Provider Psychiatry & Neurology Neurology; Visit Provider Psychiatry & Neurology Neurology
DX: E71.40 Disorder of carnitine metabolism, unspecified (principal)
CPT/HCPCS: 96365; J7040; J7050; A4216

== ENCOUNTER 2021-12-09 12:19 | Emergency (ER) | payer MEDICARE, BC, SELFPAY ==
[2021-12-09 12:20] VITALS: BP 122/87; PULSE 63; RESP 18; TEMP 36.5; O2SAT 96; BMI 36.0
--- NOTE | 2021-12-09 12:39 | RAD_ITS ---
STUDY: X-RAY - RIGHT KNEE REASON FOR EXAM: Female, 71 years old. pain TECHNIQUE: 2 view(s) of the knee. COMPARISON: None. FINDINGS: Normal visualized distal femur. Normal visualized proximal tibia and fibula. Normal proximal tibiofibular articulation. There is mild degenerative arthrosis of the medial femorotibial compartment. Normal lateral femorotibial compartment. Normal patellofemoral articulation. There is a moderate volume joint effusion. The soft tissue structures are unremarkable. RAD/Knee 1 or 2 Views IMPRESSION: Effusion, as described above. MRI would be useful. Electronically Signed: Jacky Brewer MD at 13:18 EDT ,
--- NOTE | 2021-12-09 14:07 | VDLE_ITS ---
Reason For Study: pain RIGHT GSV is normal. CFV is compressible, spontaneous, phasic, competent and demonstrates normal augmentation. FV is compressible, spontaneous, phasic, competent and demonstrates normal augmentation. POP V is compressible, spontaneous, phasic, competent and demonstrates normal augmentation. T/P Trunk is compressible. PTV is compressible. RT PerV is compressible. Hypoechoic area behind the knee measuring 2.22 x 1.44 cm. Area is nonvascular. Procedure This is a venous duplex using B-mode, color flow and spectral Doppler. Exam performed portable in ED. The exam was abbreviated due to the COVID 19 protocol. The exam was diagnostic. A preliminary report was called and/or faxed to Dr. Staton. VL/Venous Duplex US, Unilateral Interpretation Summary Deep veins of the right lower extremity are patent and compressible segmentally . There is no evidence of right lower extremity deep vein thrombosis. Valvular competence cody ears intact within the proximal deep venous system on the right . The right great saphenous vein a ppears patent and compressible segmentally. A non-vascular, hypoechoic structure is noted in the right popliteal space, measuring 2.22 cm x 1.44 cm. This probably represents a popliteal cyst. Clinical correlation is advised. Ordering Physician: Mina Staton Performed By: Rakesh Guerrero RVFransisco
--- NOTE | 2021-12-09 14:14 | ED.VIS.LOWEX ---
HPI History of Present Illness HPI Narrative: Patient with past history of muscle disorder has chronic pain and swelling of her legs especially at night. She presents with her because of increasing right knee pain and lower extremity pain worse with weightbearing and walking. She states that there was a knot on her knee, but that has resolved. She now has pain in her right thigh and right calf and may have swelling of her right lower extremity. She denies any chest pain or shortness of breath. She states she usually gets infusions and receives IV fluids because she is usually dehydrated. She presents because of the increasing pain in her right lower extremity and leg because she cannot walk. She is taking tramadol without relief. Chief Complaint: Lower Extremity Injury [facility] Medical History Asthma, exercise induced Carnitine deficiency Cervical vertebral fusion Depression TBI (traumatic brain injury) Home Medications albuterol sulfate 90 mcg/actuation aerosol inhaler (Ventolin HFA) 1 - 2 puff inhalation Q4H PRN PRN Asthma 03/21/13 [History Last Taken Unknown] coenzyme Q10 100 mg capsule (Co Q-10) 200 mg PO DAILY 03/21/13 [History Last Taken Unknown] fluoxetine 20 mg capsule 20 mg PO DAILY 03/21/13 [History Last Taken 05/19/16] trazodone 50 mg tablet 50 mg PO PRN PRN Anxiety 03/21/13 [History Last Taken Unknown] multivitamin with folic acid 400 mcg tablet (Thera) 1 tab PO DAILY 05/23/13 [History Last Taken Unknown] triamcinolone acetonide 55 mcg nasal spray aerosol (Nasal Allergy) 2 spray DAILY PRN Congestion 05/23/13 [History Last Taken Unknown] levocarnitine 330 mg tablet 4 tab PO Q6H 03/17/16 [History Last Taken 05/19/16] amlodipine 5 mg tablet 5 mg PO DAILY 04/28/16 [History Last Taken 01/25/18 07:30] cyclosporine 0.05 % eye drops in a dropperette (Restasis) 1 drp BID 05/19/16 [History Last Taken 05/19/16] cyclobenzaprine 10 mg tablet 5 mg PO TID PRN PRN cramps 01/19/18 [History Last Taken Unknown] sulfasalazine 500 mg tablet 500 mg PO DAILY 01/19/18 [History Last Taken Unknown] sulindac 150 mg tablet 150 mg PO BID 01/19/18 [History Last Taken Unknown] tramadol 50 mg tablet 50 mg PO Q6H PRN PRN pain 01/19/18 [History Last Taken Unknown] amoxicillin 875 mg-potassium clavulanate 125 mg tablet 1 tab PO Q12H PRN 03/18/21 [History Last Taken Unknown] oxycodone-acetaminophen 5 mg-325 mg tablet (Percocet) 1 tab PO Q6H PRN pain 3 days #12 tabs 12/09/21 [Rx Last Taken Unknown] Allergy/AdvReac Type Severity Reaction Status Date / Time pentazocine Allergy Unknown Verified 12/09/21 12:22 pentazocine lactate Allergy Unknown Verified 12/09/21 12:22 [From María] metoclopramide AdvReac Other Verified 12/09/21 12:22 Surgical History Hx of appendectomy Social History Smoking Status: Never smoker ROS ROS ED ROS Narrative Constitutional: No fever, no chills. HEENT: No sore throat. No neck pain. No loss of vision. No rhinorrhea. Cardiovascular: No chest pain. No palpitations. No pedal edema. Respiratory: No cough, no shortness of breath. Abdominal: No abdominal pain. No nausea. No vomiting. Genitourinary: No dysuria. No hematuria. Musculoskeletal: Positive right lower extremity myalgias. Not on right knee with arthralgias-resolved. Neurologic: No headaches. No dizziness. No lightheadedness. Skin: No rash. No change in color. Psychiatric: No depression. No anxiety. EXAM Physical Exam Narrative Exam Narrative: Afebrile. Vital signs noted. HEENT: Normocephalic. Atraumatic. PERRL, EOMI. Neck soft and supple. No point tenderness or step off. Cardiovascular: Regular rate and rhythm. No murmurs, rubs, or gallops appreciated. Respiratory: No tachypnea. Lungs clear to auscultation bilaterally. Gastrointestinal: Abdomen soft, nontender, with normoactive bowel sounds. No rebound or guarding. Neurological: Awake. Alert. Nonfocal, nonlateralizing. Skin: No rash. Normal color. No pallor. Musculoskeletal: Bilateral pedal edema, question right greater than left. Full range of motion extremities. Flexion and extension mechanisms right knee intact. Palpable dorsalis pedis pulse. Diffuse tenderness to palpation right calf and medial right thigh. Const Vital Signs: 12/09/21 12:20 Temperature 97.7 F L Temperature Source Temporal Pulse Rate 63 Respiratory Rate 18 Blood Pressure 122/87 H Blood Pressure Mean 98 Pulse Ox 96 Oxygen Delivery Method Room Air MDM MDM MDM Narrative Medical decision making narrative: Hep-Lock IV will be placed. She will be given IV fluids. I will check her CBC and CMP to look for dehydration. RN ordered x-ray of the right knee. Additionally, I will obtain ultrasound of the right lower extremity. My interpretation of her knee x-ray shows no evidence of fracture. There is a joint effusion noted. CBC is grossly normal, normal white count of 5.5, hemoglobin normal at 13.0. CMP does not show profound dehydration. Chloride 108, slightly elevated but she has a normal creatinine of 0.7 and a BUN of 20, which appears to be her baseline. Ambulate to the bathroom after she was told that her ultrasound showed no evidence of DVT. She was having problems and had to rest. She was taken in a wheelchair. She was administered oxycodone 5 mg orally for analgesia here in the emergency department. In discussion with the patient and her , she would like to be discharged home to follow-up with her neuromuscular disease physician. I did offer her observation and possible placement in rehab, but she declined. I wrote her prescription for 3 days worth of Percocet, 12 tablets for breakthrough pain. I feel she be discharged safely home with follow-up. Return instructions to the emergency department were reviewed. Disposition is discharged home in stable condition. Lab Data Attestation: I reviewed the patient's lab results. Labs: Laboratory Results - last 24 hr 12/09/21 12/09/21 14:20 14:20 WBC 5.5 RBC 4.20 Hgb 13.0 Hct 39.9 MCV 95.0 MCH 31.0 MCHC 32.6 RDW Std Deviation 46.2 H RDW Coeff of Sandra 13.2 Plt Count 280 MPV 9.3 Immature Gran % (Auto) 0.400 Neut % (Auto) 54.7 Lymph % (Auto) 31.3 [place] % (Auto) 12.1 H Eos % (Auto) 1.1 Baso % (Auto) 0.4 Absolute Neuts (auto) 3.0 Absolute Lymphs (auto) 1.71 Nucleated RBC % 0 Sodium 142 Potassium 4.1 Chloride 108 H Carbon Dioxide 28.0 Anion Gap 6 BUN 20 H Creatinine 0.74 Estim Creat Clear Calc 43.27 Est GFR (MDRD) Af Amer 99 Est GFR (MDRD) Non-Af 82 BUN/Creatinine Ratio 27.1 H Glucose 105 Calcium 8.9 Total Bilirubin 0.40 AST 12 L ALT 16 Alkaline Phosphatase 58 Total Protein 6.5 Albumin 3.2 Globulin 3.3 Albumin/Globulin Ratio 1.0 Radiography Diagnostic Testing: Clinical Impression(s) from Imaging Studies Knee X-Ray 12/09/21 12:39 IMPRESSION: Effusion, as described above. MRI would be useful. Electronically Signed: Jacky Brewer MD at 13:18 EDT , Discharge Plan Triage Chief Complaint: Lower Extremity Injury ED Provider: Mina Staton Dx/Rx/DC Orders Clinical Impression: Acute pain of right lower extremity, Neuromuscular disease Instructions: ED Pain, Acute, Uncertain Cause Prescriptions: New oxycodone-acetaminophen [Percocet] 5-325 mg tablet 1 tab PO Q6H PRN (Reason: pain) 3 Days Qty: 12 0RF No Action trazodone 50 MG tablet 50 mg PO PRN PRN (Reason: Anxiety) Label Comments: anxiety fluoxetine 20 MG capsule 20 mg PO DAILY Label Comments: depression coenzyme Q10 [Co Q-10] 100 MG capsule 200 mg PO DAILY Label Comments: suplement albuterol sulfate [Ventolin HFA] 1 INHALER inhaler 1 - 2 puff inhalation Q4H PRN PRN (Reason: Asthma) Label Comments: asthma triamcinolone acetonide [Nasal Allergy] 1 SPRAY aerosol,spray 2 spray NASAL DAILY PRN (Reason: Congestion) Label Comments: congestion multivitamin with folic acid [Thera] 1 TABLET tablet 1 tab PO DAILY Label Comments: vitamin levocarnitine 330 MG tablet 4 tab PO Q6H Label Comments: pain amlodipine 5 MG tablet 5 mg PO DAILY Label Comments: blood pressure cyclosporine [Restasis] 1 DROP dropperette 1 drp Each Eye BID Label Comments: eye drops cyclobenzaprine 10 MG tablet 5 mg PO TID PRN PRN (Reason: cramps ) sulfasalazine 500 MG tablet 500 mg PO DAILY sulindac 150 MG tablet 150 mg PO BID Label Comments: tramadol 50 MG tablet 50 mg PO Q6H PRN PRN (Reason: pain ) amoxicillin-pot clavulanate 875-125 mg Tablet 1 tab PO Q12H PRN Primary Care Provider: Care Physician,No Primary Referrals: NOT,DEFINED [NON-STAFF] - Activity Restrictions/Additional Instructions: Your ultrasound did not show any evidence of DVT in your right leg. Your laboratory work was grossly unremarkable. Take Percocet as needed for pain. Follow-up with your neuromuscular disease physician. Disposition Disposition: Home, Self Care
[2021-12-09 14:33] LABS: Absolute Lymphocyte Count 1.71 X10^3/uL (0.83-4.51); Basophil# 0.02 X10^3/uL; Basophil% 0.4 % (0-1); Eosinophil# 0.06 X10^3/uL; Eosinophils% 1.1 % (0-5); Hematocrit 39.9 % (37-47); Lymphocyte # 1.71 X10^3/ul (0.83-4.51); Lymphocyte % 31.3 % (19-41); Mean Corp Hgb Conc 32.6 g/dL (32-36); Mean Platelet Vol. 9.3 fl (6.2-12.0); Monocyte# 0.66 X10^3/uL; Monocyte% 12.1 % (0-10); NRBC Flagged by Analyzer 0 % (0-5); Neutrophil % 54.7 % (47-70); Platelet Count 280 K/mm3 (150-450); RBC Distribution Width CV 13.2 % (11.6-14.6); RBC Distribution Width SD 46.2 fl (35.1-43.9); White Blood Count 5.5 K/mm3 (4.4-11.0)
[2021-12-09 14:47] LABS: AST(SGOT) 12 U/L (15-37); Alanine Aminotransfer ALT/SGPT 16 U/L (13-56); Albumin, Serum 3.2 g/dL (3.2-5.0); Alkaline Phosphatase 58 U/L (45-117); Anion Gap 6 (5-15); BUN 20 mg/dL (7-18); BUN/Creat Ratio 27.1 RATIO (10-20); Calcium,Total 8.9 mg/dL (8.5-10.1); Chloride 108 mmol/L (98-107); Creatinine, Serum 0.74 mg/dL (0.55-1.02); EST Glomerular Filtration Rate 82 mL/min (>60); Est Glom Filt Rate - Afr Amer 99 mL/min (>60); Estimated Creatinine Clearance 43.27 ml/min; Globulin 3.3 g/dL (2.2-4.2); Glucose 105 mg/dL (74-106); Potassium 4.1 mmol/L (3.5-5.1); Protein, Total 6.5 g/dL (6.4-8.2); Sodium Level 142 mmol/L (136-145)
[2021-12-09] MEDS: oxyCODONE 5 MG Tablet PO (15:38)
[2021-12-09 16:02] VITALS: BP 125/70; PULSE 60; RESP 17
--- NOTE | 2021-12-09 16:15 | CM.ED ---
Social Work Note Reason for Referral: No PCP SW reviewed chart, No PCP listed. SW in to speak with pt. Pt states that she was seeing Dr Espinal but states she has retired. Pt states that she was told that in 3-4 weeks the office would reach out to her for an appointment as they were bringing in another physician. Pt's states that pt still see's doctor at [facility]. SW provided pt with PCP list. Regina Tirado [facility] RN, ACCOUNT RECEIVABLE CLERK
== END 2021-12-09 16:03 | disposition home or self-care (01) ==
PROVIDERS: Emergency Provider Emergency Medicine; Visit Provider Emergency Medicine
DX: M25.561 Pain in right knee (principal); M79.604 Pain in right leg; M79.605 Pain in left leg; G89.29 Other chronic pain
CPT/HCPCS: 73560; 80053; 85025; 93971; 99283; J7040; A4216

== ENCOUNTER → 2021-12-12 | Outpatient (CLI) | payer MEDICARE, BC, SELFPAY ==
[2021-12-12 15:32] VITALS: BP 163/73; PULSE 64; RESP 16; TEMP 36.7; O2SAT 98
== END | disposition home or self-care (01) ==
LOC: MEDOUTP 13:58
PROVIDERS: Referring Provider Psychiatry & Neurology Neurology; Visit Provider Psychiatry & Neurology Neurology
DX: E71.40 Disorder of carnitine metabolism, unspecified (principal)
CPT/HCPCS: 96365; J7040; A4216

== ENCOUNTER → 2021-12-16 | Outpatient (CLI) | payer MEDICARE, BC, SELFPAY ==
[2021-12-16 14:52] VITALS: BP 160/83; PULSE 65; RESP 16; O2SAT 97
[2021-12-16 16:22] VITALS: BP 175/84; PULSE 60; RESP 12; TEMP 36.7; O2SAT 98
== END | disposition home or self-care (01) ==
LOC: MEDOUTP 14:42
PROVIDERS: Referring Provider Psychiatry & Neurology Neurology; Visit Provider Psychiatry & Neurology Neurology
DX: E71.40 Disorder of carnitine metabolism, unspecified (principal)
CPT/HCPCS: 96365; J7040; A4216

== ENCOUNTER → 2021-12-26 | Outpatient (CLI) | payer MEDICARE, BC, SELFPAY ==
[2021-12-26 14:25] VITALS: BP 149/83; PULSE 65; RESP 16; TEMP 36.6; O2SAT 96
[2021-12-26 15:11] VITALS: BP 140/79; PULSE 58; RESP 16; TEMP 36.3; O2SAT 96
== END | disposition home or self-care (01) ==
LOC: MEDOUTP 14:15
PROVIDERS: Referring Provider Psychiatry & Neurology Neurology; Visit Provider Psychiatry & Neurology Neurology
DX: E71.40 Disorder of carnitine metabolism, unspecified (principal)
CPT/HCPCS: 96365; J7040; A4216

== ENCOUNTER → 2021-12-30 | Outpatient (CLI) | payer MEDICARE, BC, SELFPAY ==
[2021-12-30 15:06] VITALS: BP 162/81; PULSE 59; TEMP 36.8; O2SAT 94
[2021-12-30] MEDS: 0.9 % NaCl (Sterile) Posiflush 10 mL IV (15:06)
[2021-12-30] MEDS: 0.9% NaCl VAD Flush IV ×2 (15:21→16:07)
[2021-12-30 15:27] VITALS: BP 162/81; PULSE 59; RESP 16; TEMP 36.8; O2SAT 94
== END | disposition home or self-care (01) ==
LOC: MEDOUTP 14:55
PROVIDERS: Referring Provider Psychiatry & Neurology Neurology; Visit Provider Psychiatry & Neurology Neurology
DX: E71.40 Disorder of carnitine metabolism, unspecified (principal)
CPT/HCPCS: 96365; J7040; J7050; A4216

== ENCOUNTER → 2022-01-02 | Outpatient (CLI) | payer MEDICARE, BC, SELFPAY ==
[2022-01-02 14:23] VITALS: BP 135/72; PULSE 62; RESP 16; TEMP 36.2; O2SAT 97
[2022-01-02] MEDS: 0.9 % NaCl (Sterile) Posiflush 10 mL IV (14:35)
[2022-01-02] MEDS: 0.9% NaCl IVPB Med Flush (250 mL) 15 ML IV (14:35)
[2022-01-02] MEDS: 0.9% NaCl VAD Flush IV (15:31)
== END | disposition home or self-care (01) ==
LOC: MEDOUTP 14:10
PROVIDERS: Referring Provider Psychiatry & Neurology Neurology; Visit Provider Psychiatry & Neurology Neurology
DX: E71.40 Disorder of carnitine metabolism, unspecified (principal)
CPT/HCPCS: 96365; J7040; J7050; A4216

== ENCOUNTER → 2022-01-07 | Outpatient (CLI) | payer MEDICARE, BC, SELFPAY ==
[2022-01-07 14:20] VITALS: BP 130/74; PULSE 61; RESP 16; TEMP 36.7; O2SAT 95; BMI 40.8
[2022-01-07 15:02] VITALS: BP 134/62; PULSE 53; RESP 16; TEMP 36.7; O2SAT 98
== END | disposition home or self-care (01) ==
LOC: MEDOUTP 14:06
PROVIDERS: Referring Provider Psychiatry & Neurology Neurology; Visit Provider Psychiatry & Neurology Neurology
DX: E71.40 Disorder of carnitine metabolism, unspecified (principal)
CPT/HCPCS: 96365; J7040; J7050; A4216

== ENCOUNTER 2022-01-10 22:02 | Emergency (ER) | payer MEDICARE, BC, SELFPAY ==
[2022-01-10 22:02] VITALS: BP 167/95; PULSE 99; RESP 18; TEMP 36.8; O2SAT 97; BMI 32.6
--- NOTE | 2022-01-10 22:15 | EDS_ITS ---
HPI History of Present Illness Chief Complaint: Headache Informant: patient Onset/Context/Timing Onset: Days (2 days) Context: Gradual Timing: Intermittent Quality -Headache: Positive for Sharp Current Severity: Moderate Maximum Severity: Moderate Narrative Narrative: Patient presents with 2-day history of right-sided headache. She describes a sharp shooting pain from the area near her right ear to the top of her head. She is taken Tylenol the last 2 days without improvement. Last dose was 5 hours prior to arrival. She has had cough for the past 2 weeks. Her tested positive for COVID yesterday but her test was negative. No recent head injury. [facility] Medical History Asthma, exercise induced Carnitine deficiency Cervical vertebral fusion Depression TBI (traumatic brain injury) Home Medications albuterol sulfate 90 mcg/actuation aerosol inhaler (Ventolin HFA) 1 - 2 puff inhalation Q4H PRN PRN Asthma 03/21/13 [History Last Taken Unknown] coenzyme Q10 100 mg capsule (Co Q-10) 200 mg PO DAILY 03/21/13 [History Last Taken Unknown] fluoxetine 20 mg capsule 20 mg PO DAILY 03/21/13 [History Last Taken 05/19/16] trazodone 50 mg tablet 50 mg PO PRN PRN Anxiety 03/21/13 [History Last Taken Unknown] multivitamin with folic acid 400 mcg tablet (Thera) 1 tab PO DAILY 05/23/13 [History Last Taken Unknown] triamcinolone acetonide 55 mcg nasal spray aerosol (Nasal Allergy) 2 spray DAILY PRN Congestion 05/23/13 [History Last Taken Unknown] levocarnitine 330 mg tablet 4 tab PO Q6H 03/17/16 [History Last Taken 05/19/16] amlodipine 5 mg tablet 5 mg PO DAILY 04/28/16 [History Last Taken 01/25/18 07:30] cyclosporine 0.05 % eye drops in a dropperette (Restasis) 1 drp BID 05/19/16 [History Last Taken 05/19/16] cyclobenzaprine 10 mg tablet 5 mg PO TID PRN PRN cramps 01/19/18 [History Last Taken Unknown] sulfasalazine 500 mg tablet 500 mg PO DAILY 01/19/18 [History Last Taken Unknown] sulindac 150 mg tablet 150 mg PO BID 01/19/18 [History Last Taken Unknown] tramadol 50 mg tablet 50 mg PO Q6H PRN PRN pain 01/19/18 [History Last Taken Unknown] amoxicillin 875 mg-potassium clavulanate 125 mg tablet 1 tab PO Q12H PRN 03/18/21 [History Last Taken Unknown] oxycodone-acetaminophen 5 mg-325 mg tablet (Percocet) 1 tab PO Q6H PRN pain 3 days #12 tabs 12/09/21 [Rx Last Taken Unknown] ketorolac 10 mg tablet 10 mg PO BID 3 days #6 tabs 01/11/22 [Rx Last Taken Unknown] prednisone 20 mg tablet 40 mg PO DAILY #6 tabs 01/11/22 [Rx Last Taken Unknown] Allergy/AdvReac Type Severity Reaction Status Date / Time pentazocine Allergy Unknown Verified 01/07/22 14:22 pentazocine lactate Allergy Unknown Verified 01/07/22 14:22 [From [place]] metoclopramide AdvReac Other Verified 01/07/22 14:22 Surgical History Hx of appendectomy Social History Smoking Status: Never smoker ROS ROS ED Constitutional Constitutional ED: Denies chills or fever(s) Eyes Eyes: Denies change in vision or discharge from eye(s) ENT ENT ED: Denies discharge from eye(s), rhinorrhea or sore throat Cardiovascular Cardiovascular: Denies chest pain or palpitations Respiratory/Chest Respiratory/Chest: Reports cough; Denies dyspnea Gastrointestinal Gastrointestinal: Denies abdominal pain, diarrhea, nausea or vomiting Genitourinary Genitourinary ED: Denies difficulty urinating or dysuria Musculoskeletal Musculoskeletal: Denies back pain or extremity pain Integumentary Denies Abrasions or rash Neurologic Neurologic: Reports headache(s); Denies weakness Allergic/Immunologic Allergic/Immunologic ED: Denies lip swelling or urticaria EXAM Physical Exam Const Vital Signs: 01/10/22 22:02 01/10/22 22:02 01/11/22 00:18 Temperature 98.2 F 98.2 F Temperature Source Temporal Temporal Pulse Rate 99 99 68 Respiratory Rate 18 18 16 Blood Pressure 167/95 H 167/95 H 153/73 H Blood Pressure Mean 119 119 99 Pulse Ox 97 97 95 Oxygen Delivery Method Room Air Room Air Room Air Positive well nourished and well developed General Appearance ED: well developed HEENT Reports normocephalic and head/scalp atraumatic Eyes PERRL and EOMs intact bilaterally Neck supple Chest Wall inspection of chest normal and palpation of chest normal Resp normal respiratory effort and clear to auscultation bilaterally Cardio regular rate and regular rhythm GI normal to inspection, nondistended, normoactive bowel sounds Palpation: soft Extremity normal to inspection Neuro oriented x3 and no sensory deficits noted Sensorium / Orientation: alert Motor Exam: strength 5/5 throughout Psych Mood & Affect: anxious Skin no rashes or lesions noted MDM MDM MDM Narrative Medical decision making narrative: Patient given Toradol, Benadryl, Solu-Medrol. Lab work obtained. COVID PCR ordered. CT scan of the head obtained. Lab Data Attestation: I reviewed the patient's lab results. Labs: Laboratory Results - last 24 hr 01/10/22 01/10/22 01/10/22 21:23 21:23 22:27 WBC 5.6 RBC 4.55 Hgb 14.2 Hct 44.3 MCV 97.4 MCH 31.2 MCHC 32.1 RDW Std Deviation 47.5 H RDW Coeff of Sandra 13.2 Plt Count 232 MPV 9.2 Immature Gran % (Auto) 0.700 Neut % (Auto) 74.0 H Lymph % (Auto) 11.9 L [place] % (Auto) 13.2 H Eos % (Auto) 0.0 Baso % (Auto) 0.2 Absolute Neuts (auto) 4.2 Absolute Lymphs (auto) 0.67 L Nucleated RBC % 0 Sodium 141 Potassium 3.9 Chloride 109 H Carbon Dioxide 30.0 Anion Gap 2 L BUN 18 Creatinine 0.92 Estim Creat Clear Calc 47.03 Est GFR (MDRD) Af Amer 77 Est GFR (MDRD) Non-Af 64 BUN/Creatinine Ratio 19.6 Glucose 192 H Calcium 9.1 COVID-19 (OSVALDO) Detected Radiography Diagnostic Testing: Clinical Impression(s) from Imaging Studies Brain CT 01/10/22 22:48 IMPRESSION: No acute findings in the head/brain. Electronically Signed: Sommer Bynum MD at 23:38 EDT , Chest X-Ray 01/10/22 22:53 IMPRESSION: Nonacute portable x-ray examination of the chest. Electronically Signed: Marshall Sánchez MD ([place]) at 23:12 EDT , Treatment and Re-Evaluation Narrative: Lab work is unremarkable. CT scan of the head is normal. Patient's pain is improved. At the time of discharge PCR COVID test was pending. I advised her that if her test is positive we will call her in the morning to let her know. Test does return positive and she be notified in the morning. Patient was given prescription for Toradol and prednisone at home. Return instructions are provided. Discharge Plan Triage Chief Complaint: Headache ED Provider: Breanna Ryan Dx/Rx/DC Orders Clinical Impression: Cephalgia, Viral syndrome, COVID-19 Instructions: ED Headache Unspecified, ED Viral Syndrome (Adult) Prescriptions: New ketorolac 10 mg tablet 10 mg PO BID 3 Days Qty: 6 0RF prednisone 20 mg tablet 40 mg PO DAILY Qty: 6 0RF No Action trazodone 50 MG tablet 50 mg PO PRN PRN (Reason: Anxiety) Label Comments: anxiety fluoxetine 20 MG capsule 20 mg PO DAILY Label Comments: depression coenzyme Q10 [Co Q-10] 100 MG capsule 200 mg PO DAILY Label Comments: suplement albuterol sulfate [Ventolin HFA] 1 INHALER inhaler 1 - 2 puff inhalation Q4H PRN PRN (Reason: Asthma) Label Comments: asthma triamcinolone acetonide [Nasal Allergy] 1 SPRAY aerosol,spray 2 spray NASAL DAILY PRN (Reason: Congestion) Label Comments: congestion multivitamin with folic acid [Thera] 1 TABLET tablet 1 tab PO DAILY Label Comments: vitamin levocarnitine 330 MG tablet 4 tab PO Q6H Label Comments: pain amlodipine 5 MG tablet 5 mg PO DAILY Label Comments: blood pressure cyclosporine [Restasis] 1 DROP dropperette 1 drp Each Eye BID Label Comments: eye drops cyclobenzaprine 10 MG tablet 5 mg PO TID PRN PRN (Reason: cramps ) sulfasalazine 500 MG tablet 500 mg PO DAILY sulindac 150 MG tablet 150 mg PO BID Label Comments: tramadol 50 MG tablet 50 mg PO Q6H PRN PRN (Reason: pain ) amoxicillin-pot clavulanate 875-125 mg Tablet 1 tab PO Q12H PRN oxycodone-acetaminophen [Percocet] 5-325 mg tablet 1 tab PO Q6H PRN (Reason: pain) 3 Days Qty: 12 0RF Primary Care Provider: Care Physician,No Primary Referrals: Care Physician,No Primary [Primary Care Provider] - Activity Restrictions/Additional Instructions: Your COVID test will take a couple more hours to return. If positive we will call you in the morning with the result. Please follow-up with your primary care physician in the next 3 to 5 days if not improving. Disposition Disposition: Home, Self Care Discharge Date/Time: 01/11/22 00:33
[2022-01-10] MEDS: 0.9% Normal Saline 1,000 ML 1000 ML IV (22:34)
[2022-01-10] MEDS: Ketorolac 15 MG/ML Vial IV (22:36)
[2022-01-10] MEDS: MethylPREDNISolone 125 MG/2 ML Vial IV (22:36)
[2022-01-10] MEDS: DiphenhydrAMINE 50 MG/ML Syringe 12.5 MG IV (22:36)
--- NOTE | 2022-01-10 22:48 | CT_ITS ---
EXAM: CT HEAD WITHOUT INTRAVENOUS CONTRAST CLINICAL INDICATION: headache TECHNIQUE: Multiple axial images were obtained of the head without intravenous contrast. This CT exam was performed using one or more of the following dose reduction techniques: automated exposure control, adjustment of the mA and/or kV according to patient size, and/or use of iterative reconstruction technique. This report was created using [employer] report generation technology. RADIATION DOSE: CTDIvol = 44.99 mGy, DLP = 812.98 mGy-cmContrast: COMPARISON: None. FINDINGS: BRAIN AND EXTRA-AXIAL SPACES: Minimal cerebral volume loss. No intra- or extra-axial hemorrhage. No evidence of acute infarct. No intracranial mass or mass effect. There is preservation of the coppola/white matter interface. Posterior fossa structures are unremarkable. Ventricles are appropriate for age. No hydrocephalus. Basal cisterns are patent. BONES/JOINTS: Unremarkable. No discrete lytic or blastic abnormalities. VASCULATURE: Mild cavernous carotid calcifications. SINUSES: Completely included paranasal sinuses. MASTOID AIR CELLS: Unremarkable. Clear. ORBITS: Visualized globes, extraocular muscles, optic nerves and retrobulbar fat appear unremarkable. CT/Brain/Head without Contrast IMPRESSION: No acute findings in the head/brain. Electronically Signed: Sommer Bynum MD at 23:38 EDT ,
--- NOTE | 2022-01-10 22:53 | RAD_ITS ---
STUDY: X-RAY CHEST REASON FOR EXAM: Female, 71 years old. cough TECHNIQUE: AP COMPARISON: None. FINDINGS: Fusion hardware of the lower cervical spine. Left chest port with tip overlying the lower SVC. The lungs are clear and expanded. There is no demonstrated pleural abnormality. Normal size heart. Normal mediastinum and heather. Normal visualized pulmonary arteries. There is atherosclerotic tortuosity of the aortic arch and descending thoracic aorta. No acute bony process. There is no demonstrated abnormality of the visualized soft tissue structures of the upper abdomen. RAD/Chest 1 View (Portable) IMPRESSION: Nonacute portable x-ray examination of the chest. Electronically Signed: Marshall Sánchez MD ([place]) at 23:12 EDT ,
[2022-01-10 22:55] LABS: Absolute Lymphocyte Count 0.67 X10^3/uL (0.83-4.51); Absolute Neutrophil Count 4.2 X10^3/uL (2.0-7.7); Basophil# 0.01 X10^3/uL; Basophil% 0.2 % (0-1); Hematocrit 44.3 % (37-47); Hemoglobin 14.2 g/dL (12.0-15.0); Lymphocyte # 0.67 X10^3/ul (0.83-4.51); Lymphocyte % 11.9 % (19-41); Mean Corp Hgb Conc 32.1 g/dL (32-36); Mean Corpuscular Hgb 31.2 pg (27.0-32.0); Mean Corpuscular Volume 97.4 fL (81-99); Mean Platelet Vol. 9.2 fl (6.2-12.0); Monocyte# 0.74 X10^3/uL; Monocyte% 13.2 % (0-10); NRBC Flagged by Analyzer 0 % (0-5); Neutrophil # 4.15 X10^3/uL (2.7-7.7); Platelet Count 232 K/mm3 (150-450); RBC Distribution Width CV 13.2 % (11.6-14.6); RBC Distribution Width SD 47.5 fl (35.1-43.9); Red Blood Count 4.55 M/mm3 (4.2-5.4); White Blood Count 5.6 K/mm3 (4.4-11.0)
[2022-01-10 23:11] LABS: Anion Gap 2 (5-15); BUN 18 mg/dL (7-18); BUN/Creat Ratio 19.6 RATIO (10-20); Calcium,Total 9.1 mg/dL (8.5-10.1); Chloride 109 mmol/L (98-107); Creatinine, Serum 0.92 mg/dL (0.55-1.02); EST Glomerular Filtration Rate 64 mL/min (>60); Est Glom Filt Rate - Afr Amer 77 mL/min (>60); Estimated Creatinine Clearance 47.03 ml/min; Glucose 192 mg/dL (74-106); Potassium 3.9 mmol/L (3.5-5.1); Sodium Level 141 mmol/L (136-145)
[2022-01-11 00:18] VITALS: BP 153/73; PULSE 68; RESP 16; O2SAT 95
== END 2022-01-11 00:33 | disposition home or self-care (01) ==
PROVIDERS: Emergency Provider Emergency Medicine; Visit Provider Emergency Medicine
DX: U07.1 COVID-19 (principal); R51.9 Headache, unspecified; B34.9 Viral infection, unspecified
CPT/HCPCS: 70450; 71045; 80048; 85025; 87635; 99282; J7030; A4216; U0003; U0005

== ENCOUNTER → 2022-01-30 | Outpatient (CLI) | payer MEDICARE, BC, SELFPAY ==
[2022-01-30 14:11] VITALS: BP 131/67; PULSE 63; RESP 18; TEMP 36.1; O2SAT 97; BMI 32.5
[2022-01-30 15:03] VITALS: BP 130/67; PULSE 59; RESP 16; TEMP 36.2; O2SAT 99
== END | disposition home or self-care (01) ==
LOC: MEDOUTP 13:58
PROVIDERS: Referring Provider Psychiatry & Neurology Neurology; Visit Provider Psychiatry & Neurology Neurology
DX: E71.40 Disorder of carnitine metabolism, unspecified (principal)
CPT/HCPCS: 96365; J7040; A4216

== ENCOUNTER → 2022-02-03 | Outpatient (CLI) | payer MEDICARE, BC, SELFPAY ==
[2022-02-03 13:41] VITALS: BP 148/66; PULSE 61; RESP 16; TEMP 36.6; O2SAT 96; BMI 32.5
[2022-02-03 15:13] VITALS: BP 142/86; PULSE 58; RESP 16; TEMP 36.8; O2SAT 98
== END | disposition home or self-care (01) ==
LOC: MEDOUTP 13:31
PROVIDERS: Referring Provider Psychiatry & Neurology Neurology; Visit Provider Psychiatry & Neurology Neurology
DX: E71.40 Disorder of carnitine metabolism, unspecified (principal)
CPT/HCPCS: 96365; J7040; A4216

== ENCOUNTER → 2022-02-06 | Outpatient (CLI) | payer MEDICARE, BC, SELFPAY ==
[2022-02-06 14:22] VITALS: BP 162/72; PULSE 61; RESP 16; TEMP 36.2; O2SAT 97
[2022-02-06 15:26] VITALS: BP 144/67; PULSE 57; RESP 16; TEMP 36.6; O2SAT 96
== END | disposition home or self-care (01) ==
LOC: MEDOUTP 14:16
PROVIDERS: Referring Provider Psychiatry & Neurology Neurology; Visit Provider Psychiatry & Neurology Neurology
DX: E71.40 Disorder of carnitine metabolism, unspecified (principal)
CPT/HCPCS: 96365; J7040; A4216

== ENCOUNTER → 2022-02-10 | Outpatient (CLI) | payer MEDICARE, BC, SELFPAY ==
[2022-02-10 14:36] VITALS: BP 145/81; PULSE 58; RESP 14; TEMP 36.8; O2SAT 98; BMI 31.2
== END | disposition home or self-care (01) ==
LOC: MEDOUTP 14:18
PROVIDERS: Referring Provider Psychiatry & Neurology Neurology; Visit Provider Psychiatry & Neurology Neurology
DX: E71.40 Disorder of carnitine metabolism, unspecified (principal)
CPT/HCPCS: 96365; J7040

== ENCOUNTER → 2022-02-13 | Outpatient (CLI) | payer MEDICARE, BC, SELFPAY ==
[2022-02-13 14:37] VITALS: BP 143/61; PULSE 60; TEMP 36.3; O2SAT 99
== END | disposition home or self-care (01) ==
LOC: MEDOUTP 14:26
PROVIDERS: Referring Provider Psychiatry & Neurology Neurology; Visit Provider Psychiatry & Neurology Neurology
DX: E71.40 Disorder of carnitine metabolism, unspecified (principal)
CPT/HCPCS: 96365; J7040; A4216

== ENCOUNTER → 2022-02-17 | Outpatient (CLI) | payer MEDICARE, BC, SELFPAY ==
[2022-02-17 14:44] VITALS: BP 145/80; PULSE 61; RESP 16; TEMP 36.5; O2SAT 98
[2022-02-17 15:19] VITALS: BP 143/68; PULSE 56; RESP 16; TEMP 36.4; O2SAT 99
== END | disposition home or self-care (01) ==
LOC: MEDOUTP 14:29
PROVIDERS: Referring Provider Psychiatry & Neurology Neurology; Visit Provider Psychiatry & Neurology Neurology
DX: E71.40 Disorder of carnitine metabolism, unspecified (principal)
CPT/HCPCS: 96365; J7040; A4216

== ENCOUNTER → 2022-02-24 | Outpatient (CLI) | payer MEDICARE, BC, SELFPAY ==
[2022-02-24 14:36] VITALS: BP 162/91; PULSE 66; RESP 16; TEMP 36.4; O2SAT 96; BMI 31.2
[2022-02-24 15:30] VITALS: BP 145/79; PULSE 60; RESP 14; TEMP 36.4; O2SAT 97
[2022-02-24 16:01] VITALS: BP 153/67; PULSE 56; O2SAT 98
== END | disposition home or self-care (01) ==
LOC: MEDOUTP 14:25
PROVIDERS: Referring Provider Psychiatry & Neurology Neurology; Visit Provider Psychiatry & Neurology Neurology
DX: E71.40 Disorder of carnitine metabolism, unspecified (principal)
CPT/HCPCS: 96365; J7040; A4216

== ENCOUNTER → 2022-02-27 | Outpatient (CLI) | payer MEDICARE, BC, SELFPAY ==
[2022-02-27 14:10] VITALS: BP 126/79; PULSE 66; RESP 16; O2SAT 96
== END | disposition home or self-care (01) ==
LOC: MEDOUTP 13:39
PROVIDERS: Referring Provider Psychiatry & Neurology Neurology; Visit Provider Psychiatry & Neurology Neurology
DX: E71.40 Disorder of carnitine metabolism, unspecified (principal)
CPT/HCPCS: 96365; J7040; A4216

== ENCOUNTER → 2022-03-03 | Outpatient (CLI) | payer MEDICARE, BC, SELFPAY ==
[2022-03-03 14:28] VITALS: BP 119/65; PULSE 64; RESP 16; TEMP 35.7; O2SAT 98
== END | disposition home or self-care (01) ==
LOC: MEDOUTP 14:14
PROVIDERS: Referring Provider Psychiatry & Neurology Neurology; Visit Provider Psychiatry & Neurology Neurology
DX: E71.40 Disorder of carnitine metabolism, unspecified (principal)
CPT/HCPCS: 96365; J7040; A4216

== ENCOUNTER → 2022-03-06 | Outpatient (CLI) | payer MEDICARE, BC, SELFPAY ==
[2022-03-06 14:04] VITALS: BP 145/72; PULSE 59; TEMP 36.2; O2SAT 97
[2022-03-06] MEDS: 0.9 % NaCl (Sterile) Posiflush 10 mL IV (14:17)
[2022-03-06] MEDS: 0.9% NaCl VAD Flush IV (14:57)
== END | disposition home or self-care (01) ==
LOC: MEDOUTP 13:54
PROVIDERS: Referring Provider Psychiatry & Neurology Neurology; Visit Provider Psychiatry & Neurology Neurology
DX: E71.40 Disorder of carnitine metabolism, unspecified (principal)
CPT/HCPCS: 96365; J7040; A4216

== ENCOUNTER → 2022-03-10 | Outpatient (CLI) | payer MEDICARE, BC, SELFPAY ==
[2022-03-10] MEDS: 0.9 % NaCl (Sterile) Posiflush 10 mL IV (14:14)
[2022-03-10 14:20] VITALS: BP 149/75; PULSE 65; RESP 14; TEMP 36.6; O2SAT 96; BMI 18.0
[2022-03-10] MEDS: 0.9% NaCl VAD Flush IV (15:24)
[2022-03-10 15:34] VITALS: BP 154/74; PULSE 57; RESP 16; TEMP 36.1; O2SAT 97
== END | disposition home or self-care (01) ==
LOC: MEDOUTP 14:04
PROVIDERS: Referring Provider Psychiatry & Neurology Neurology; Visit Provider Psychiatry & Neurology Neurology
DX: E71.40 Disorder of carnitine metabolism, unspecified (principal)
CPT/HCPCS: 96365; J7040; A4216

== ENCOUNTER → 2022-03-17 | Outpatient (CLI) | payer MEDICARE, BC, SELFPAY ==
[2022-03-17] MEDS: 0.9 % NaCl (Sterile) Posiflush 10 mL IV (14:05)
[2022-03-17] MEDS: 0.9% NaCl IVPB Med Flush (250 mL) 15 ML IV (14:06)
[2022-03-17 14:09] VITALS: BP 152/67; PULSE 58; RESP 14; TEMP 36.4; O2SAT 100
[2022-03-17] MEDS: 0.9% NaCl VAD Flush IV (14:51)
== END | disposition home or self-care (01) ==
LOC: MEDOUTP 13:52
PROVIDERS: Referring Provider Psychiatry & Neurology Neurology; Visit Provider Psychiatry & Neurology Neurology
DX: E71.40 Disorder of carnitine metabolism, unspecified (principal)
CPT/HCPCS: 96365; J7040; J7050; A4216

== ENCOUNTER → 2022-03-20 | Outpatient (CLI) | payer MEDICARE, BC, SELFPAY ==
[2022-03-20 13:47] VITALS: BP 156/68; PULSE 72; RESP 16; TEMP 37.1; O2SAT 99
[2022-03-20] MEDS: 0.9% NaCl VAD Flush IV (14:40)
== END | disposition home or self-care (01) ==
LOC: MEDOUTP 13:40
PROVIDERS: Referring Provider Psychiatry & Neurology Neurology; Visit Provider Psychiatry & Neurology Neurology
DX: E71.40 Disorder of carnitine metabolism, unspecified (principal)
CPT/HCPCS: 96365; J7040; A4216

== ENCOUNTER → 2022-03-24 | Outpatient (CLI) | payer MEDICARE, BC, SELFPAY ==
[2022-03-24 14:29] VITALS: BP 150/73; PULSE 63; O2SAT 96
[2022-03-24] MEDS: 0.9% NaCl VAD Flush IV ×2 (14:41→15:21)
[2022-03-24 15:24] VITALS: BP 151/94; PULSE 57; RESP 14; TEMP 36.7; O2SAT 99
== END | disposition home or self-care (01) ==
LOC: MEDOUTP 14:20
PROVIDERS: Referring Provider Psychiatry & Neurology Neurology; Visit Provider Psychiatry & Neurology Neurology
DX: E71.40 Disorder of carnitine metabolism, unspecified (principal)
CPT/HCPCS: 96365; J7040; A4216

== ENCOUNTER → 2022-03-27 | Outpatient (CLI) | payer MEDICARE, BC, SELFPAY ==
[2022-03-27 14:23] VITALS: BP 152/73; PULSE 60; O2SAT 99
[2022-03-27] MEDS: 0.9 % NaCl (Sterile) Posiflush 10 mL IV (14:27)
[2022-03-27] MEDS: 0.9% NaCl VAD Flush IV (15:03)
[2022-03-27 15:11] VITALS: BP 162/62; PULSE 95; RESP 16; O2SAT 99
== END | disposition home or self-care (01) ==
LOC: MEDOUTP 14:02
PROVIDERS: Referring Provider Psychiatry & Neurology Neurology; Visit Provider Psychiatry & Neurology Neurology
DX: E71.40 Disorder of carnitine metabolism, unspecified (principal)
CPT/HCPCS: 96365; J7040; A4216

== ENCOUNTER → 2022-04-03 | Outpatient (CLI) | payer MEDICARE, BC, SELFPAY ==
[2022-04-03 13:49] VITALS: BP 147/95; PULSE 63; RESP 16; TEMP 36.2; O2SAT 99
[2022-04-03] MEDS: 0.9 % NaCl (Sterile) Posiflush 10 mL IV (13:50)
[2022-04-03] MEDS: 0.9% NaCl IVPB Med Flush (250 mL) 15 ML IV (13:51)
[2022-04-03] MEDS: 0.9% NaCl VAD Flush IV (14:56)
== END | disposition home or self-care (01) ==
LOC: MEDOUTP 13:35
PROVIDERS: Referring Provider Psychiatry & Neurology Neurology; Visit Provider Psychiatry & Neurology Neurology
DX: E71.40 Disorder of carnitine metabolism, unspecified (principal)
CPT/HCPCS: 96365; J7040; J7050; A4216

== ENCOUNTER → 2022-04-08 | Outpatient (CLI) | payer MEDICARE, BC, SELFPAY ==
[2022-04-08 14:10] VITALS: BP 141/75; PULSE 66; RESP 16; TEMP 36.3; O2SAT 100
[2022-04-08] MEDS: 0.9 % NaCl (Sterile) Posiflush 10 mL IV (14:14)
[2022-04-08] MEDS: 0.9% NaCl VAD Flush IV (15:16)
== END | disposition home or self-care (01) ==
LOC: MEDOUTP 14:02
PROVIDERS: Referring Provider Psychiatry & Neurology Neurology; Visit Provider Psychiatry & Neurology Neurology
DX: E71.40 Disorder of carnitine metabolism, unspecified (principal)
CPT/HCPCS: 96365; J7040; A4216

== ENCOUNTER → 2022-04-10 | Outpatient (CLI) | payer MEDICARE, BC, SELFPAY ==
[2022-04-10 14:07] VITALS: BP 148/90; PULSE 64; RESP 16; TEMP 36.8; O2SAT 99
[2022-04-10] MEDS: 0.9% NaCl PICC Flush IV (14:52)
== END | disposition home or self-care (01) ==
LOC: MEDOUTP 13:57
PROVIDERS: Referring Provider Psychiatry & Neurology Neurology; Visit Provider Psychiatry & Neurology Neurology
DX: E71.40 Disorder of carnitine metabolism, unspecified (principal)
CPT/HCPCS: 96365; J7040; A4216

== ENCOUNTER → 2022-04-14 | Outpatient (CLI) | payer MEDICARE, BC, SELFPAY ==
[2022-04-14 14:06] VITALS: BP 130/79; PULSE 61; RESP 16; TEMP 35.8; O2SAT 98
[2022-04-14] MEDS: 0.9% NaCl IVPB Med Flush (250 mL) 15 ML IV (14:44)
[2022-04-14] MEDS: 0.9 % NaCl (Sterile) Posiflush 10 mL IV (14:44)
[2022-04-14] MEDS: 0.9% NaCl VAD Flush IV (15:37)
[2022-04-14 15:40] VITALS: BP 143/82; PULSE 53; RESP 16
== END | disposition home or self-care (01) ==
LOC: MEDOUTP 13:53
PROVIDERS: Referring Provider Psychiatry & Neurology Neurology; Visit Provider Psychiatry & Neurology Neurology
DX: E71.40 Disorder of carnitine metabolism, unspecified (principal)
CPT/HCPCS: 96365; J7040; J7050; A4216

== ENCOUNTER → 2022-04-17 | Outpatient (CLI) | payer MEDICARE, BC, SELFPAY ==
[2022-04-17 13:51] VITALS: BP 149/76; PULSE 64; RESP 16; TEMP 36.1; O2SAT 96; BMI 36.0
[2022-04-17] MEDS: 0.9 % NaCl (Sterile) Posiflush 10 mL IV (13:57)
[2022-04-17] MEDS: 0.9% NaCl IVPB Med Flush (250 mL) 15 ML IV (13:57)
[2022-04-17] MEDS: 0.9% NaCl VAD Flush IV (15:00)
[2022-04-17 15:02] VITALS: BP 134/69; PULSE 56; RESP 16; TEMP 36.1
== END | disposition home or self-care (01) ==
LOC: MEDOUTP 13:46
PROVIDERS: Referring Provider Psychiatry & Neurology Neurology; Visit Provider Psychiatry & Neurology Neurology
DX: E71.40 Disorder of carnitine metabolism, unspecified (principal)
CPT/HCPCS: 96365; J7040; J7050; A4216

== ENCOUNTER → 2022-04-21 | Outpatient (CLI) | payer MEDICARE, BC, SELFPAY ==
[2022-04-21 13:55] VITALS: BP 122/80; PULSE 63; RESP 16; TEMP 35.6
[2022-04-21] MEDS: 0.9 % NaCl (Sterile) Posiflush 10 mL IV (13:57)
[2022-04-21] MEDS: 0.9% NaCl IVPB Med Flush (250 mL) 15 ML IV (14:00)
[2022-04-21] MEDS: 0.9% NaCl VAD Flush IV (15:04)
== END | disposition home or self-care (01) ==
LOC: MEDOUTP 13:48
PROVIDERS: Referring Provider Psychiatry & Neurology Neurology; Visit Provider Psychiatry & Neurology Neurology
DX: E71.40 Disorder of carnitine metabolism, unspecified (principal)
CPT/HCPCS: 96365; J7040; J7050; A4216

== ENCOUNTER → 2022-04-28 | Outpatient (CLI) | payer MEDICARE, BC, SELFPAY ==
[2022-04-28] MEDS: 0.9% NaCl IVPB Med Flush (250 mL) 15 ML IV (14:04)
[2022-04-28] MEDS: 0.9 % NaCl (Sterile) Posiflush 10 mL IV (14:06)
[2022-04-28 14:07] VITALS: BP 168/77; PULSE 57; O2SAT 100
[2022-04-28] MEDS: 0.9% NaCl VAD Flush IV (15:06)
== END | disposition home or self-care (01) ==
LOC: MEDOUTP 13:50
PROVIDERS: Referring Provider Psychiatry & Neurology Neurology; Visit Provider Psychiatry & Neurology Neurology
DX: E71.40 Disorder of carnitine metabolism, unspecified (principal)
CPT/HCPCS: 96365; J7040; J7050; A4216

== ENCOUNTER → 2022-05-01 | Outpatient (CLI) | payer MEDICARE, BC, SELFPAY ==
[2022-05-01] MEDS: 0.9 % NaCl (Sterile) Posiflush 10 mL IV (14:02)
[2022-05-01 14:03] VITALS: BP 150/67; PULSE 62; O2SAT 97
[2022-05-01] MEDS: 0.9% NaCl VAD Flush IV (14:53)
[2022-05-01 14:57] VITALS: BP 107/80; PULSE 66; RESP 16; TEMP 36.3; O2SAT 97
== END | disposition home or self-care (01) ==
LOC: MEDOUTP 13:50
PROVIDERS: Referring Provider Psychiatry & Neurology Neurology; Visit Provider Psychiatry & Neurology Neurology
DX: E71.40 Disorder of carnitine metabolism, unspecified (principal)
CPT/HCPCS: 96365; J7040; A4216

== ENCOUNTER → 2022-05-05 | Outpatient (CLI) | payer MEDICARE, BC, SELFPAY ==
[2022-05-05 13:49] VITALS: BP 168/86; PULSE 68; O2SAT 99
[2022-05-05] MEDS: 0.9 % NaCl (Sterile) Posiflush 10 mL IV (13:49)
[2022-05-05] MEDS: 0.9% NaCl VAD Flush IV (14:55)
[2022-05-05 14:58] VITALS: BP 141/92; PULSE 70; O2SAT 97
== END | disposition home or self-care (01) ==
LOC: MEDOUTP 13:26
PROVIDERS: Referring Provider Psychiatry & Neurology Neurology; Visit Provider Psychiatry & Neurology Neurology
DX: E71.40 Disorder of carnitine metabolism, unspecified (principal)
CPT/HCPCS: 96365; J7040; A4216

== ENCOUNTER → 2022-05-15 | Outpatient (CLI) | payer MEDICARE, BC, SELFPAY ==
[2022-05-15 14:37] VITALS: BP 159/79; PULSE 71; TEMP 36.6; O2SAT 95
== END | disposition home or self-care (01) ==
LOC: MEDOUTP 14:29
PROVIDERS: Referring Provider Psychiatry & Neurology Neurology; Visit Provider Psychiatry & Neurology Neurology
DX: E71.40 Disorder of carnitine metabolism, unspecified (principal)
CPT/HCPCS: 96365; J7040

== ENCOUNTER → 2022-05-22 | Outpatient (CLI) | payer MEDICARE, BC, SELFPAY ==
[2022-05-22] MEDS: 0.9 % NaCl (Sterile) Posiflush 10 mL IV (13:59)
[2022-05-22 14:03] VITALS: BP 143/75; PULSE 57; RESP 16; TEMP 36.1; O2SAT 99; BMI 36.8
[2022-05-22] MEDS: 0.9% NaCl VAD Flush IV (15:22)
== END | disposition home or self-care (01) ==
LOC: MEDOUTP 13:51
PROVIDERS: Referring Provider Psychiatry & Neurology Neurology; Visit Provider Psychiatry & Neurology Neurology
DX: E71.40 Disorder of carnitine metabolism, unspecified (principal)
CPT/HCPCS: 96365; J7040; J7050; A4216

== ENCOUNTER → 2022-05-29 | Outpatient (CLI) | payer MEDICARE, BC, SELFPAY ==
[2022-05-29 13:57] VITALS: BP 155/81; PULSE 60; O2SAT 99
[2022-05-29] MEDS: 0.9 % NaCl (Sterile) Posiflush 10 mL IV (13:59)
[2022-05-29] MEDS: 0.9% NaCl VAD Flush IV (14:41)
== END | disposition home or self-care (01) ==
LOC: MEDOUTP 13:46
PROVIDERS: Referring Provider Psychiatry & Neurology Neurology; Visit Provider Psychiatry & Neurology Neurology
DX: E71.40 Disorder of carnitine metabolism, unspecified (principal)
CPT/HCPCS: 96365; J7040; A4216

== ENCOUNTER → 2022-06-02 | Outpatient (CLI) | payer MEDICARE, BC, SELFPAY ==
[2022-06-02 14:22] VITALS: BP 129/56; PULSE 57; RESP 18; TEMP 36.4; O2SAT 98
[2022-06-02] MEDS: 0.9 % NaCl (Sterile) Posiflush 10 mL IV (14:27)
[2022-06-02] MEDS: 0.9% NaCl IVPB Med Flush (250 mL) 15 ML IV (14:28)
[2022-06-02] MEDS: 0.9% NaCl VAD Flush IV (15:30)
[2022-06-02 15:32] VITALS: BP 134/60; PULSE 57; RESP 16; TEMP 36.3; O2SAT 99
== END | disposition home or self-care (01) ==
LOC: MEDOUTP 14:08
PROVIDERS: Referring Provider Psychiatry & Neurology Neurology; Visit Provider Psychiatry & Neurology Neurology
DX: E71.40 Disorder of carnitine metabolism, unspecified (principal)
CPT/HCPCS: 96365; J7040; J7050; A4216

== ENCOUNTER → 2022-06-05 | Outpatient (CLI) | payer MEDICARE, BC, SELFPAY ==
[2022-06-05 14:14] VITALS: BP 152/74; PULSE 59; RESP 16; TEMP 35.5; O2SAT 99; BMI 36.8
[2022-06-05] MEDS: 0.9 % NaCl (Sterile) Posiflush 10 mL IV (14:23)
[2022-06-05] MEDS: 0.9% NaCl VAD Flush IV (15:01)
== END | disposition home or self-care (01) ==
LOC: MEDOUTP 14:06
PROVIDERS: Referring Provider Psychiatry & Neurology Neurology; Visit Provider Psychiatry & Neurology Neurology
DX: E71.40 Disorder of carnitine metabolism, unspecified (principal)
CPT/HCPCS: 96365; J7040; A4216

== ENCOUNTER → 2022-07-03 | Outpatient (CLI) | payer MEDICARE, BC, SELFPAY ==
[2022-07-03] MEDS: 0.9 % NaCl (Sterile) Posiflush 10 mL IV (14:12)
[2022-07-03 14:14] VITALS: BP 143/71; PULSE 57; RESP 16; TEMP 36; O2SAT 96
[2022-07-03] MEDS: 0.9% NaCl VAD Flush IV (15:24)
[2022-07-03 15:40] VITALS: BP 128/67; PULSE 55; RESP 16; TEMP 36.4; O2SAT 98
== END | disposition home or self-care (01) ==
LOC: MEDOUTP 14:01
PROVIDERS: Referring Provider Psychiatry & Neurology Neurology; Visit Provider Psychiatry & Neurology Neurology
DX: E71.40 Disorder of carnitine metabolism, unspecified (principal)
CPT/HCPCS: 96365; J7040; A4216

== ENCOUNTER → 2022-07-07 | Outpatient (CLI) | payer MEDICARE, BC, SELFPAY ==
[2022-07-07] MEDS: 0.9 % NaCl (Sterile) Posiflush 10 mL IV (14:01)
[2022-07-07 14:05] VITALS: BP 133/75; PULSE 59; RESP 16; TEMP 36.3; O2SAT 99
[2022-07-07] MEDS: 0.9% NaCl VAD Flush IV (14:50)
[2022-07-07 14:51] VITALS: BP 174/77; PULSE 54; RESP 16; TEMP 36.7
== END | disposition home or self-care (01) ==
LOC: MEDOUTP 13:47
PROVIDERS: Referring Provider Psychiatry & Neurology Neurology; Visit Provider Psychiatry & Neurology Neurology
DX: E71.40 Disorder of carnitine metabolism, unspecified (principal)
CPT/HCPCS: 96365; J7040; A4216

== ENCOUNTER → 2022-07-10 | Outpatient (CLI) | payer MEDICARE, BC, SELFPAY ==
[2022-07-10] MEDS: 0.9 % NaCl (Sterile) Posiflush 10 mL IV (14:11)
[2022-07-10] MEDS: 0.9% NaCl IVPB Med Flush (250 mL) 15 ML IV (14:16)
[2022-07-10 14:17] VITALS: BP 164/71; PULSE 58; RESP 16; TEMP 35.8; O2SAT 99
[2022-07-10] MEDS: 0.9% NaCl IVPB Med Flush (250 mL) 999 ML IV (15:08)
[2022-07-10] MEDS: 0.9% NaCl VAD Flush IV (15:25)
[2022-07-10 15:26] VITALS: BP 160/66; PULSE 57; RESP 18
== END | disposition home or self-care (01) ==
LOC: MEDOUTP 14:09
PROVIDERS: Referring Provider Psychiatry & Neurology Neurology; Visit Provider Psychiatry & Neurology Neurology
DX: E71.40 Disorder of carnitine metabolism, unspecified (principal)
CPT/HCPCS: 96365; J7040; J7050; A4216

== ENCOUNTER → 2022-07-17 | Outpatient (CLI) | payer MEDICARE, BC, SELFPAY ==
[2022-07-17] MEDS: 0.9 % NaCl (Sterile) Posiflush 10 mL IV (13:49)
[2022-07-17 13:50] VITALS: BP 141/60; PULSE 62; RESP 16; TEMP 36.2; O2SAT 99
[2022-07-17] MEDS: 0.9% NaCl VAD Flush IV (15:05)
[2022-07-17 15:08] VITALS: BP 152/68; PULSE 58; RESP 16; TEMP 36.2; O2SAT 100
== END | disposition home or self-care (01) ==
LOC: MEDOUTP 13:41
PROVIDERS: Referring Provider Psychiatry & Neurology Neurology; Visit Provider Psychiatry & Neurology Neurology
DX: E71.40 Disorder of carnitine metabolism, unspecified (principal)
CPT/HCPCS: 96365; J7040; A4216

== ENCOUNTER → 2022-07-28 | Outpatient (CLI) | payer MEDICARE, BC, SELFPAY ==
[2022-07-28] MEDS: 0.9 % NaCl (Sterile) Posiflush 10 mL IV (14:17)
[2022-07-28 14:18] VITALS: BP 145/77; PULSE 55; RESP 16
[2022-07-28] MEDS: 0.9% NaCl VAD Flush IV (14:58)
[2022-07-28 15:01] VITALS: BP 143/76; PULSE 53; RESP 16; TEMP 36.4
== END | disposition home or self-care (01) ==
LOC: MEDOUTP 14:03
PROVIDERS: Referring Provider Psychiatry & Neurology Neurology; Visit Provider Psychiatry & Neurology Neurology
DX: E71.40 Disorder of carnitine metabolism, unspecified (principal)
CPT/HCPCS: 96365; J7040; A4216

== ENCOUNTER → 2022-07-31 | Outpatient (CLI) | payer MEDICARE, BC, SELFPAY ==
[2022-07-31] MEDS: 0.9% NaCl IVPB Med Flush (250 mL) 15 ML IV (14:04)
[2022-07-31] MEDS: 0.9 % NaCl (Sterile) Posiflush 10 mL IV (14:04)
[2022-07-31 14:05] VITALS: BP 139/65; PULSE 58; RESP 16; TEMP 36.2; O2SAT 100; BMI 35.5
[2022-07-31] MEDS: 0.9% NaCl VAD Flush IV (15:06)
[2022-07-31 15:07] VITALS: BP 131/59; PULSE 66; RESP 16; TEMP 36.1; O2SAT 100
== END | disposition home or self-care (01) ==
LOC: MEDOUTP 13:55
PROVIDERS: Referring Provider Psychiatry & Neurology Neurology; Visit Provider Psychiatry & Neurology Neurology
DX: E71.40 Disorder of carnitine metabolism, unspecified (principal)
CPT/HCPCS: 96365; J7040; J7050; A4216

== ENCOUNTER → 2022-08-06 | Outpatient (CLI) | payer MEDICARE, BC, SELFPAY ==
[2022-08-06] MEDS: 0.9 % NaCl (Sterile) Posiflush 10 mL IV (15:07)
[2022-08-06] MEDS: 0.9% NaCl IVPB Med Flush (250 mL) 999 ML IV (15:08)
[2022-08-06 15:09] VITALS: BP 140/67; PULSE 67; RESP 16; TEMP 36.2; O2SAT 99
[2022-08-06] MEDS: 0.9% NaCl VAD Flush IV (16:03)
[2022-08-06 16:06] VITALS: BP 133/58; PULSE 65; RESP 16
== END | disposition home or self-care (01) ==
LOC: MEDOUTP 14:59
PROVIDERS: Referring Provider Psychiatry & Neurology Neurology; Visit Provider Psychiatry & Neurology Neurology
DX: E71.40 Disorder of carnitine metabolism, unspecified (principal)
CPT/HCPCS: 96365; J7040; J7050; A4216

== ENCOUNTER → 2022-08-11 | Outpatient (CLI) | payer MEDICARE, BC, SELFPAY ==
[2022-08-11 15:00] VITALS: BP 139/65; PULSE 58; RESP 16; TEMP 36.6; O2SAT 99
[2022-08-11] MEDS: 0.9 % NaCl (Sterile) Posiflush 10 mL IV (15:01)
[2022-08-11] MEDS: 0.9% NaCl IVPB Med Flush (250 mL) 15 ML IV (15:18)
[2022-08-11 16:02] VITALS: BP 140/64; PULSE 70; RESP 16; TEMP 36.2; O2SAT 99
[2022-08-11] MEDS: 0.9% NaCl VAD Flush IV (16:17)
== END | disposition home or self-care (01) ==
LOC: MEDOUTP 14:56
PROVIDERS: Referring Provider Psychiatry & Neurology Neurology; Visit Provider Psychiatry & Neurology Neurology
DX: E71.40 Disorder of carnitine metabolism, unspecified (principal)
CPT/HCPCS: 96365; J7040; J7050; A4216

== ENCOUNTER → 2022-08-18 | Outpatient (CLI) | payer MEDICARE, BC, SELFPAY ==
[2022-08-18 14:06] VITALS: BP 140/82; PULSE 64; RESP 18; TEMP 36; O2SAT 96; BMI 36.0
[2022-08-18] MEDS: 0.9 % NaCl (Sterile) Posiflush 10 mL IV (14:17)
[2022-08-18] MEDS: 0.9% NaCl VAD Flush IV (15:31)
== END | disposition home or self-care (01) ==
LOC: MEDOUTP 13:46
PROVIDERS: Referring Provider Psychiatry & Neurology Neurology; Visit Provider Psychiatry & Neurology Neurology
DX: E71.40 Disorder of carnitine metabolism, unspecified (principal)
CPT/HCPCS: 96365; J7040; A4216

== ENCOUNTER → 2022-08-21 | Outpatient (CLI) | payer MEDICARE, BC, SELFPAY ==
[2022-08-21 13:38] VITALS: BP 156/87; PULSE 60; RESP 16; TEMP 36.1; O2SAT 97; BMI 36.0
[2022-08-21] MEDS: 0.9 % NaCl (Sterile) Posiflush 10 mL IV (13:43)
[2022-08-21] MEDS: 0.9% NaCl VAD Flush IV (14:31)
[2022-08-21 14:32] VITALS: BP 144/80; PULSE 62; RESP 16
== END | disposition home or self-care (01) ==
LOC: MEDOUTP 13:31
PROVIDERS: Referring Provider Psychiatry & Neurology Neurology; Visit Provider Psychiatry & Neurology Neurology
DX: E71.40 Disorder of carnitine metabolism, unspecified (principal)
CPT/HCPCS: 96365; J7040; A4216

== ENCOUNTER → 2022-09-01 | Outpatient (CLI) | payer MEDICARE, BC, SELFPAY ==
[2022-09-01] MEDS: 0.9 % NaCl (Sterile) Posiflush 10 mL IV (15:13)
[2022-09-01 15:21] VITALS: BP 164/70; PULSE 58; RESP 16; TEMP 36.2
[2022-09-01] MEDS: 0.9% NaCl VAD Flush IV (16:34)
[2022-09-01 16:35] VITALS: BP 151/67; PULSE 63; RESP 18
== END | disposition home or self-care (01) ==
LOC: MEDOUTP 15:09
PROVIDERS: Visit Provider Psychiatry & Neurology Neurology
DX: E71.40 Disorder of carnitine metabolism, unspecified (principal)
CPT/HCPCS: 96365; J7040; A4216

== ENCOUNTER → 2022-09-04 | Outpatient (CLI) | payer MEDICARE, BC, SELFPAY ==
[2022-09-04 14:32] VITALS: BP 164/91; PULSE 60; RESP 16; O2SAT 96; BMI 36.0
[2022-09-04] MEDS: 0.9 % NaCl (Sterile) Posiflush 10 mL IV (14:38)
[2022-09-04] MEDS: 0.9% NaCl VAD Flush IV (15:53)
[2022-09-04 15:55] VITALS: BP 150/66; PULSE 58; RESP 16; O2SAT 98
== END | disposition home or self-care (01) ==
LOC: MEDOUTP 14:24
PROVIDERS: Referring Provider Psychiatry & Neurology Neurology; Visit Provider Psychiatry & Neurology Neurology
DX: E71.40 Disorder of carnitine metabolism, unspecified (principal)
CPT/HCPCS: 96365; J7040; A4216

== ENCOUNTER → 2022-09-08 | Outpatient (CLI) | payer MEDICARE, BC, SELFPAY ==
[2022-09-08] MEDS: 0.9 % NaCl (Sterile) Posiflush 10 mL IV (14:20)
[2022-09-08] MEDS: 0.9% NaCl VAD Flush IV ×2 (14:27→15:41)
[2022-09-08 14:28] VITALS: BP 142/69; PULSE 71; RESP 16; TEMP 36.2
[2022-09-08 15:43] VITALS: BP 128/65; PULSE 68; RESP 16
== END | disposition home or self-care (01) ==
LOC: MEDOUTP 14:12
PROVIDERS: Referring Provider Psychiatry & Neurology Neurology; Visit Provider Psychiatry & Neurology Neurology
DX: E71.40 Disorder of carnitine metabolism, unspecified (principal)
CPT/HCPCS: 96365; J7040; A4216

== ENCOUNTER → 2022-09-11 | Outpatient (CLI) | payer MEDICARE, BC, SELFPAY ==
[2022-09-11 13:46] VITALS: BP 143/71; PULSE 61; RESP 16; TEMP 36.3; O2SAT 100
[2022-09-11] MEDS: 0.9 % NaCl (Sterile) Posiflush 10 mL IV (13:52)
[2022-09-11] MEDS: 0.9% NaCl VAD Flush IV (14:42)
[2022-09-11 14:44] VITALS: BP 137/65; PULSE 56; RESP 16; TEMP 36.5; O2SAT 100
== END | disposition home or self-care (01) ==
LOC: MEDOUTP 13:35
PROVIDERS: Referring Provider Psychiatry & Neurology Neurology; Visit Provider Psychiatry & Neurology Neurology
DX: E71.40 Disorder of carnitine metabolism, unspecified (principal)
CPT/HCPCS: 96365; J7040; A4216

== ENCOUNTER → 2022-09-22 | Outpatient (CLI) | payer MEDICARE, BC, SELFPAY ==
[2022-09-22] MEDS: 0.9 % NaCl (Sterile) Posiflush 10 mL IV (14:15)
[2022-09-22 14:17] VITALS: BP 133/62; PULSE 65; RESP 16; TEMP 36.6; O2SAT 99
[2022-09-22] MEDS: 0.9% NaCl VAD Flush IV (15:27)
== END | disposition home or self-care (01) ==
LOC: MEDOUTP 14:04
PROVIDERS: Referring Provider Psychiatry & Neurology Neurology; Visit Provider Psychiatry & Neurology Neurology
DX: E71.40 Disorder of carnitine metabolism, unspecified (principal)
CPT/HCPCS: 96365; J7040; A4216

== ENCOUNTER → 2022-09-25 | Outpatient (CLI) | payer MEDICARE, BC, SELFPAY ==
[2022-09-25 13:10] VITALS: BP 151/73; PULSE 61; RESP 16; TEMP 36.1; O2SAT 100
[2022-09-25] MEDS: 0.9 % NaCl (Sterile) Posiflush 10 mL IV (13:12)
[2022-09-25] MEDS: 0.9% NaCl IVPB Med Flush (250 mL) 15 ML IV (13:18)
[2022-09-25] MEDS: 0.9% NaCl VAD Flush IV (14:20)
[2022-09-25 14:25] VITALS: BP 153/73; PULSE 55; RESP 16; O2SAT 100
== END | disposition home or self-care (01) ==
LOC: MEDOUTP 13:06
PROVIDERS: Referring Provider Psychiatry & Neurology Neurology; Visit Provider Psychiatry & Neurology Neurology
DX: E71.40 Disorder of carnitine metabolism, unspecified (principal)
CPT/HCPCS: 96365; J7040; J7050; A4216

== ENCOUNTER → 2022-09-29 | Outpatient (CLI) | payer MEDICARE, BC, SELFPAY ==
[2022-09-29 14:12] VITALS: BP 148/69; PULSE 57; RESP 16; TEMP 36.3; O2SAT 98
[2022-09-29] MEDS: 0.9% NaCl IVPB Med Flush (250 mL) 999 ML IV (14:20)
[2022-09-29] MEDS: 0.9 % NaCl (Sterile) Posiflush 10 mL IV (14:20)
[2022-09-29] MEDS: 0.9% NaCl VAD Flush IV (15:15)
[2022-09-29 15:17] VITALS: BP 155/67; PULSE 58; RESP 16; TEMP 36.3; O2SAT 100
== END | disposition home or self-care (01) ==
LOC: MEDOUTP 14:06
PROVIDERS: Referring Provider Psychiatry & Neurology Neurology; Visit Provider Psychiatry & Neurology Neurology
DX: E71.40 Disorder of carnitine metabolism, unspecified (principal)
CPT/HCPCS: 96365; J7040; J7050; A4216

== ENCOUNTER → 2022-10-02 | Outpatient (CLI) | payer MEDICARE, BC, SELFPAY ==
[2022-10-02] MEDS: 0.9 % NaCl (Sterile) Posiflush 10 mL IV (13:38)
[2022-10-02 13:43] VITALS: BP 143/81; PULSE 61; RESP 16; TEMP 36.4; O2SAT 98
[2022-10-02] MEDS: 0.9% NaCl IVPB Med Flush (250 mL) 15 ML IV (13:48)
[2022-10-02] MEDS: 0.9% NaCl VAD Flush IV (14:36)
[2022-10-02 14:41] VITALS: BP 154/77; PULSE 57; RESP 16; O2SAT 97
== END | disposition home or self-care (01) ==
PROVIDERS: Referring Provider Psychiatry & Neurology Neurology; Visit Provider Psychiatry & Neurology Neurology
DX: E71.40 Disorder of carnitine metabolism, unspecified (principal)
CPT/HCPCS: 96365; J7040; J7050; A4216

== ENCOUNTER → 2022-10-09 | Outpatient (CLI) | payer MEDICARE, BC, SELFPAY ==
[2022-10-09] MEDS: 0.9 % NaCl (Sterile) Posiflush 10 mL IV (14:10)
[2022-10-09 14:15] VITALS: BP 160/65; PULSE 61; RESP 16; TEMP 36.6; O2SAT 97
[2022-10-09] MEDS: 0.9% NaCl VAD Flush IV (15:30)
[2022-10-09 15:33] VITALS: BP 145/56; PULSE 65
== END | disposition home or self-care (01) ==
LOC: MEDOUTP 14:03
PROVIDERS: Referring Provider Psychiatry & Neurology Neurology; Visit Provider Psychiatry & Neurology Neurology
DX: E71.40 Disorder of carnitine metabolism, unspecified (principal)
CPT/HCPCS: 96365; J7040; A4216

== ENCOUNTER 2022-10-13 15:12 | Outpatient (CLI) | payer MEDICARE, BC, SELFPAY ==
[2022-10-13 15:25] VITALS: BP 156/78; PULSE 65; RESP 16; TEMP 36.6; O2SAT 98
[2022-10-13] MEDS: 0.9 % NaCl (Sterile) Posiflush 10 mL IV (15:27)
[2022-10-13] MEDS: 0.9% NaCl VAD Flush IV ×2 (15:27→16:39)
[2022-10-13 15:39] LABS: Absolute Lymphocyte Count 1.63 X10^3/uL (0.83-4.51); Basophil# 0.03 X10^3/uL; Basophil% 0.4 % (0-1); Eosinophil# 0.02 X10^3/uL; Eosinophils% 0.3 % (0-5); Hematocrit 41.5 % (37-47); Hemoglobin 13.5 g/dL (12.0-15.0); Lymphocyte # 1.63 X10^3/ul (0.83-4.51); Lymphocyte % 22.4 % (19-41); Mean Corp Hgb Conc 32.5 g/dL (32-36); Mean Corpuscular Hgb 31.1 pg (27.0-32.0); Mean Corpuscular Volume 95.6 fL (81-99); Mean Platelet Vol. 9.1 fl (6.2-12.0); Monocyte# 0.55 X10^3/uL; Monocyte% 7.6 % (0-10); NRBC Flagged by Analyzer 0 % (0-5); Neutrophil # 5.03 X10^3/uL (2.7-7.7); Platelet Count 342 K/mm3 (150-450); RBC Distribution Width CV 13.1 % (11.6-14.6); RBC Distribution Width SD 46.5 fl (35.1-43.9); Red Blood Count 4.34 M/mm3 (4.2-5.4); White Blood Count 7.3 K/mm3 (4.4-11.0)
[2022-10-13 16:13] LABS: Vitamin B12 449 pg/mL (211-911); Vitamin D,25 Hydroxy 30.7 ng/mL
[2022-10-13 16:34] LABS: ALB/GLOB Ratio 0.9 RATIO (0.9-2.4); AST(SGOT) 16 U/L (15-37); Alanine Aminotransfer ALT/SGPT 16 U/L (13-56); Albumin, Serum 3.5 g/dL (3.2-5.0); Alkaline Phosphatase 65 U/L (45-117); Anion Gap 3 (5-15); BUN 13 mg/dL (7-18); BUN/Creat Ratio 20.3 RATIO (10-20); Calcium,Total 9.3 mg/dL (8.5-10.1); Chloride 108 mmol/L (98-107); Creatinine, Serum 0.64 mg/dL (0.55-1.02); EST Glomerular Filtration Rate 96 mL/min (>60); Est Glom Filt Rate - Afr Amer 116 mL/min (>60); Globulin 3.8 g/dL (2.2-4.2); Glucose 107 mg/dL (74-106); Protein, Total 7.3 g/dL (6.4-8.2); Sodium Level 138 mmol/L (136-145)
[2022-10-13 16:41] VITALS: BP 156/75; PULSE 68
== END 2022-10-13 15:13 | disposition home or self-care (01) ==
LOC: MEDOUTP 15:12
PROVIDERS: Nurse Practitioner Family; Referring Provider Psychiatry & Neurology Neurology; Visit Provider Psychiatry & Neurology Neurology
DX: E71.40 Disorder of carnitine metabolism, unspecified (principal); E55.9 Vitamin D deficiency, unspecified
CPT/HCPCS: 96365; 36591; 80053; 82306; 82607; 82746; 85025; J7040; A4216

== ENCOUNTER 2022-10-16 09:39 | Outpatient (CLI) | payer MEDICARE, BC, SELFPAY ==
[2022-10-16] MEDS: 0.9 % NaCl (Sterile) Posiflush 10 mL IV (09:47)
[2022-10-16] MEDS: 0.9% NaCl VAD Flush IV ×3 (09:48→11:19)
[2022-10-16 10:04] VITALS: BP 155/71; PULSE 74; RESP 16; TEMP 36.2; O2SAT 99
[2022-10-16 10:34] LABS: Cholesterol 234 mg/dL (200); High Density Lipoprotein 73 mg/dL; Triglycerides 74 mg/dL; Very Low Density Lipoprotein 15 mg/dL (5-40)
[2022-10-16 11:23] VITALS: BP 151/64; PULSE 73; RESP 16
== END 2022-10-16 09:40 | disposition home or self-care (01) ==
LOC: MEDOUTP 09:39
PROVIDERS: Nurse Practitioner Family; Referring Provider Psychiatry & Neurology Neurology; Visit Provider Psychiatry & Neurology Neurology
DX: E71.40 Disorder of carnitine metabolism, unspecified (principal); E78.00 Pure hypercholesterolemia, unspecified
CPT/HCPCS: 96365; 36591; 80061; J7040; A4216

== ENCOUNTER 2022-10-19 19:05 | Emergency (ER) | payer MEDICARE, BC, SELFPAY ==
[2022-10-19] VITALS (7 sets, daily range): BP systolic 179–191; BP diastolic 92–161; PULSE 89–94; RESP 17–21; TEMP 36.3; O2SAT 97–99; BMI 34.4
--- NOTE | 2022-10-19 19:28 | ED.RN ---
PT ONLY REPORTS PAIN TO HEAD SINCE FALL. PT STATES MULTIPLE TIMES THAT SHE IS ON A BLOOD THINNER BUT IS UNSURE OF NAME.
[2022-10-19] MEDS: Acetaminophen 325 MG Tablet 650 MG PO (19:54)
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
--- NOTE | 2022-10-19 20:02 | CT_ITS ---
INDICATION: Trauma EXAMINATION: CT BRAIN - CT Head or Brain W/O Contrast Injection TECHNIQUE: Multiple axial images were obtained of the head without intravenous contrast. A radiation dose optimization technique was used for this scan. IV Contrast dosage and agent: None. RADIATION DOSAGE (If Supplied By Facility): CTDIvol = ( 44.99 ) mGy, DLP = ( 812.98 ) mGycm COMPARISON: 01/10/2022 FINDINGS: BRAIN PARENCHYMA: No intra- or extra-axial hemorrhage. No evidence of acute infarct. No intracranial mass or mass effect. There is preservation of the coppola/white matter interface. Posterior fossa structures are unremarkable. CSF SPACES: Appropriate for age. No hydrocephalus. Basal cisterns are patent. CALVARIUM, SKULL BASE, PARANASAL SINUSES AND MASTOID AIR CELLS: Clear. No discrete lytic or blastic abnormalities. ORBITS: Both globes, extraocular muscles, optic nerves and retrobulbar fat appear unremarkable. CT/Brain/Head without Contrast IMPRESSION: Negative Brain CT without contrast. Electronically Signed: Edgardo Bond MD at 20:17 EDT ,
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
--- NOTE | 2022-10-19 22:18 | ED.RN ---
PER DR. HENNESSY VERBAL ORDER, PT OKAY TO BE DISCHARGED.
== END 2022-10-19 22:20 | disposition home or self-care (01) ==
PROVIDERS: Emergency Provider Emergency Medicine; Visit Provider Emergency Medicine
DX: S09.90XA Unspecified injury of head, initial encounter (principal); W18.30XA Fall on same level, unspecified, initial encounter
CPT/HCPCS: 70450; 99285

== ENCOUNTER 2022-10-19 19:06 | Emergency (ER) | payer MEDICARE, BC, SELFPAY ==
[2022-10-19 19:08] VITALS: BP 191/96; PULSE 95; RESP 26; TEMP 36.3; O2SAT 98; BMI 34.4
== END 2022-10-19 19:11 | disposition left against medical advice (07) ==
LOC: ED 19:11
DX: Z53.21 Procedure and treatment not carried out due to patient leaving prior to being seen by health care provider (principal)

== ENCOUNTER 2022-10-23 13:42 | Outpatient (CLI) | payer MEDICARE, BC, SELFPAY ==
[2022-10-23 13:56] VITALS: BP 139/76; PULSE 67; RESP 16; TEMP 36.4; O2SAT 98
[2022-10-23 15:22] VITALS: BP 146/78; PULSE 73; RESP 16; O2SAT 100
== END 2022-10-23 13:43 | disposition home or self-care (01) ==
LOC: MEDOUTP 13:43
PROVIDERS: Referring Provider Psychiatry & Neurology Neurology; Visit Provider Psychiatry & Neurology Neurology
DX: E71.40 Disorder of carnitine metabolism, unspecified (principal)
CPT/HCPCS: 96365; J7040; A4216

== ENCOUNTER 2022-10-27 14:10 | Outpatient (CLI) | payer MEDICARE, BC, SELFPAY ==
[2022-10-27] MEDS: 0.9 % NaCl (Sterile) Posiflush 10 mL IV (14:20)
[2022-10-27 14:25] VITALS: BP 135/52; PULSE 74; RESP 16; TEMP 36.3; O2SAT 95
[2022-10-27 15:33] VITALS: BP 129/56; PULSE 71; RESP 16; TEMP 35.8
== END 2022-10-27 14:11 | disposition home or self-care (01) ==
LOC: MEDOUTP 14:11
PROVIDERS: Referring Provider Psychiatry & Neurology Neurology; Visit Provider Psychiatry & Neurology Neurology
DX: E71.40 Disorder of carnitine metabolism, unspecified (principal)
CPT/HCPCS: 96365; J7040

== ENCOUNTER 2022-10-30 13:45 | Outpatient (CLI) | payer MEDICARE, BC, SELFPAY ==
[2022-10-30 14:00] VITALS: BP 120/66; PULSE 71; RESP 16; TEMP 36.3; O2SAT 96
[2022-10-30] MEDS: 0.9% NaCl IVPB Med Flush (250 mL) 15 ML IV (14:00)
[2022-10-30] MEDS: 0.9% NaCl VAD Flush IV (14:54)
[2022-10-30 14:58] VITALS: BP 141/64; PULSE 60; RESP 16; O2SAT 100
== END 2022-10-30 13:46 | disposition home or self-care (01) ==
LOC: MEDOUTP 13:45
PROVIDERS: Referring Provider Psychiatry & Neurology Neurology; Visit Provider Psychiatry & Neurology Neurology
DX: E71.40 Disorder of carnitine metabolism, unspecified (principal)
CPT/HCPCS: 96365; J7040; J7050; A4216

== ENCOUNTER 2022-11-03 14:10 | Outpatient (CLI) | payer MEDICARE, BC, SELFPAY ==
[2022-11-03] MEDS: 0.9 % NaCl (Sterile) Posiflush 10 mL IV (14:23)
[2022-11-03 14:30] VITALS: BP 131/65; PULSE 67; RESP 16; TEMP 36.5
[2022-11-03] MEDS: 0.9% NaCl VAD Flush IV (15:41)
[2022-11-03 15:43] VITALS: BP 159/63; PULSE 63; RESP 16; TEMP 36.4
== END 2022-11-03 14:11 | disposition home or self-care (01) ==
LOC: MEDOUTP 14:10
PROVIDERS: Referring Provider Psychiatry & Neurology Neurology; Visit Provider Psychiatry & Neurology Neurology
DX: E71.40 Disorder of carnitine metabolism, unspecified (principal)
CPT/HCPCS: 96365; J7040; A4216

== ENCOUNTER 2022-11-06 13:59 | Outpatient (CLI) | payer MEDICARE, BC, SELFPAY ==
[2022-11-06 14:08] VITALS: BP 158/80; PULSE 69; RESP 16; O2SAT 99; BMI 32.4
[2022-11-06] MEDS: 0.9 % NaCl (Sterile) Posiflush 10 mL IV (14:15)
[2022-11-06] MEDS: 0.9% NaCl VAD Flush IV (15:24)
[2022-11-06 15:29] VITALS: BP 139/72; PULSE 78
== END 2022-11-06 14:00 | disposition home or self-care (01) ==
LOC: MEDOUTP 13:59
PROVIDERS: Referring Provider Psychiatry & Neurology Neurology; Visit Provider Psychiatry & Neurology Neurology
DX: E71.40 Disorder of carnitine metabolism, unspecified (principal)
CPT/HCPCS: 96365; J7040; A4216

== ENCOUNTER 2022-11-13 13:42 | Outpatient (CLI) | payer MEDICARE, BC, SELFPAY ==
[2022-11-13] MEDS: 0.9 % NaCl (Sterile) Posiflush 10 mL IV (13:58)
[2022-11-13 14:02] VITALS: BP 172/76; PULSE 55; RESP 16
[2022-11-13] MEDS: 0.9% NaCl VAD Flush IV (15:11)
[2022-11-13 15:12] VITALS: BP 169/71; PULSE 58; RESP 16; O2SAT 100
== END 2022-11-13 13:43 | disposition home or self-care (01) ==
LOC: MEDOUTP 13:43
PROVIDERS: Referring Provider Psychiatry & Neurology Neurology; Visit Provider Psychiatry & Neurology Neurology
DX: E71.40 Disorder of carnitine metabolism, unspecified (principal)
CPT/HCPCS: 96365; J7040; A4216

== ENCOUNTER 2022-11-17 13:56 | Outpatient (CLI) | payer MEDICARE, BC, SELFPAY ==
[2022-11-17 14:00] VITALS: BP 130/58; PULSE 65; RESP 16; TEMP 36.2; O2SAT 99
[2022-11-17] MEDS: 0.9 % NaCl (Sterile) Posiflush 10 mL IV (14:05)
[2022-11-17] MEDS: 0.9% NaCl VAD Flush IV (15:14)
[2022-11-17 15:19] VITALS: BP 128/64; PULSE 78; RESP 16; TEMP 35.9; O2SAT 97
== END 2022-11-17 13:57 | disposition home or self-care (01) ==
LOC: MEDOUTP 13:56
PROVIDERS: Referring Provider Psychiatry & Neurology Neurology; Visit Provider Psychiatry & Neurology Neurology
DX: E71.40 Disorder of carnitine metabolism, unspecified (principal)
CPT/HCPCS: 96365; J7040; A4216

== ENCOUNTER 2022-11-19 13:11 | Outpatient (CLI) | payer MEDICARE, BC, SELFPAY ==
[2022-11-19] MEDS: 0.9 % NaCl (Sterile) Posiflush 10 mL IV (13:48)
[2022-11-19] MEDS: 0.9% NaCl IVPB Med Flush (250 mL) 15 ML IV (13:48)
[2022-11-19 13:49] VITALS: BP 129/60; PULSE 57; RESP 14; TEMP 36.3; O2SAT 96
[2022-11-19] MEDS: 0.9% NaCl VAD Flush IV (14:47)
[2022-11-19 14:50] VITALS: BP 128/48; PULSE 62; RESP 16; TEMP 36.1; O2SAT 99
== END 2022-11-19 13:12 | disposition home or self-care (01) ==
LOC: MEDOUTP 13:11
PROVIDERS: Referring Provider Psychiatry & Neurology Neurology; Visit Provider Psychiatry & Neurology Neurology
DX: E71.40 Disorder of carnitine metabolism, unspecified (principal)
CPT/HCPCS: 96365; J7040; J7050; A4216

== ENCOUNTER 2022-11-24 13:59 | Outpatient (CLI) | payer MEDICARE, BC, SELFPAY ==
[2022-11-24] MEDS: 0.9 % NaCl (Sterile) Posiflush 10 mL IV (14:22)
[2022-11-24 14:26] VITALS: BP 117/62; PULSE 58; RESP 16; TEMP 36.1
[2022-11-24] MEDS: 0.9% NaCl VAD Flush IV (15:10)
[2022-11-24 15:11] VITALS: BP 139/69; PULSE 59; RESP 14; TEMP 36; O2SAT 99
== END 2022-11-24 14:00 | disposition home or self-care (01) ==
LOC: MEDOUTP 13:59
PROVIDERS: Referring Provider Psychiatry & Neurology Neurology; Visit Provider Psychiatry & Neurology Neurology
DX: E71.40 Disorder of carnitine metabolism, unspecified (principal)
CPT/HCPCS: 96365; J7040; A4216

== ENCOUNTER 2022-12-01 14:07 | Outpatient (CLI) | payer MEDICARE, BC, SELFPAY ==
[2022-12-01] MEDS: 0.9 % NaCl (Sterile) Posiflush 10 mL IV (14:31)
[2022-12-01 14:37] VITALS: BP 131/54; PULSE 61; RESP 14; TEMP 36.6; O2SAT 99; BMI 20.5
[2022-12-01] MEDS: 0.9% NaCl VAD Flush IV (15:51)
[2022-12-01 15:54] VITALS: BP 162/74; PULSE 60; RESP 16; TEMP 36.2; O2SAT 99
== END 2022-12-01 14:08 | disposition home or self-care (01) ==
LOC: MEDOUTP 14:07
PROVIDERS: Referring Provider Psychiatry & Neurology Neurology; Visit Provider Psychiatry & Neurology Neurology
DX: E71.40 Disorder of carnitine metabolism, unspecified (principal)
CPT/HCPCS: 96365; J7040; A4216

== ENCOUNTER 2022-12-04 14:08 | Outpatient (CLI) | payer MEDICARE, BC, SELFPAY ==
[2022-12-04 14:19] VITALS: BP 140/70; PULSE 69; RESP 16; TEMP 36.2; O2SAT 97; BMI 37.8
[2022-12-04] MEDS: 0.9 % NaCl (Sterile) Posiflush 10 mL IV (14:22)
[2022-12-04] MEDS: 0.9% NaCl IVPB Med Flush (250 mL) 15 ML IV (14:23)
[2022-12-04] MEDS: 0.9% NaCl VAD Flush IV (15:16)
[2022-12-04 15:21] VITALS: BP 132/65; PULSE 60; RESP 16; TEMP 36.2; O2SAT 98
== END 2022-12-04 14:09 | disposition home or self-care (01) ==
LOC: MEDOUTP 14:08
PROVIDERS: Referring Provider Psychiatry & Neurology Neurology; Visit Provider Psychiatry & Neurology Neurology
DX: E71.40 Disorder of carnitine metabolism, unspecified (principal)
CPT/HCPCS: 96365; J7040; J7050; A4216

== ENCOUNTER 2022-12-29 14:23 | Outpatient (CLI) | payer MEDICARE, BC, SELFPAY ==
[2022-12-29 14:30] VITALS: BP 157/89; PULSE 64; RESP 16; TEMP 36.3; O2SAT 99
[2022-12-29] MEDS: 0.9 % NaCl (Sterile) Posiflush 10 mL IV (14:40)
[2022-12-29] MEDS: 0.9% NaCl VAD Flush IV (15:57)
[2022-12-29 15:59] VITALS: BP 160/74; PULSE 64; RESP 16; TEMP 36.1; O2SAT 99
== END 2022-12-29 14:24 | disposition home or self-care (01) ==
LOC: MEDOUTP 14:23
PROVIDERS: Referring Provider Psychiatry & Neurology Neurology; Visit Provider Psychiatry & Neurology Neurology
DX: E71.40 Disorder of carnitine metabolism, unspecified (principal)
CPT/HCPCS: 96365; J7040; A4216

== ENCOUNTER 2023-01-01 13:53 | Outpatient (CLI) | payer MEDICARE, BC, SELFPAY ==
[2023-01-01] MEDS: 0.9 % NaCl (Sterile) Posiflush 10 mL IV (14:01)
[2023-01-01 14:05] VITALS: BP 129/72; PULSE 61; RESP 16; TEMP 36; O2SAT 97
[2023-01-01] MEDS: 0.9% NaCl VAD Flush IV (15:03)
[2023-01-01 15:05] VITALS: BP 149/70; PULSE 62; RESP 16; TEMP 36; O2SAT 97
== END 2023-01-01 13:54 | disposition home or self-care (01) ==
LOC: MEDOUTP 13:53
PROVIDERS: Referring Provider Psychiatry & Neurology Neurology; Visit Provider Psychiatry & Neurology Neurology
DX: E71.40 Disorder of carnitine metabolism, unspecified (principal)
CPT/HCPCS: 96365; J7040; A4216

== ENCOUNTER 2023-01-12 14:44 | Outpatient (CLI) | payer MEDICARE, BC, SELFPAY ==
[2023-01-12] MEDS: 0.9 % NaCl (Sterile) Posiflush 10 mL IV (15:03)
[2023-01-12] MEDS: 0.9% NaCl IVPB Med Flush (250 mL) 15 ML IV (15:04)
[2023-01-12 15:09] VITALS: BP 144/70; PULSE 66; RESP 16
[2023-01-12] MEDS: 0.9% NaCl VAD Flush IV (15:58)
[2023-01-12 16:05] VITALS: BP 135/68; PULSE 65
== END 2023-01-12 14:45 | disposition home or self-care (01) ==
LOC: MEDOUTP 14:44
PROVIDERS: Referring Provider Psychiatry & Neurology Neurology; Visit Provider Psychiatry & Neurology Neurology
DX: E71.40 Disorder of carnitine metabolism, unspecified (principal)
CPT/HCPCS: 96365; J7040; J7050; A4216

== ENCOUNTER 2023-01-22 14:29 | Outpatient (CLI) | payer MEDICARE, BC, SELFPAY ==
[2023-01-22] MEDS: 0.9 % NaCl (Sterile) Posiflush 10 mL IV (14:40)
[2023-01-22 14:41] VITALS: BP 150/65; PULSE 62; RESP 16; TEMP 36.1; O2SAT 98
[2023-01-22] MEDS: 0.9% NaCl IVPB Med Flush (250 mL) 15 ML IV (14:46)
[2023-01-22] MEDS: 0.9% NaCl VAD Flush IV (15:47)
[2023-01-22 15:53] VITALS: BP 147/81; PULSE 61; RESP 16; TEMP 36.2; O2SAT 98
== END 2023-01-22 14:30 | disposition home or self-care (01) ==
LOC: MEDOUTP 14:29
PROVIDERS: Referring Provider Psychiatry & Neurology Neurology; Visit Provider Psychiatry & Neurology Neurology
DX: E71.40 Disorder of carnitine metabolism, unspecified (principal)
CPT/HCPCS: 96360; J7040; J7050; A4216

== ENCOUNTER 2023-01-26 13:55 | Outpatient (CLI) | payer MEDICARE, BC, SELFPAY ==
[2023-01-26 14:07] VITALS: BP 182/68; PULSE 60; TEMP 36.4; O2SAT 97; BMI 33.3
[2023-01-26] MEDS: 0.9 % NaCl (Sterile) Posiflush 10 mL IV (14:14)
[2023-01-26] MEDS: 0.9% NaCl IVPB Med Flush (250 mL) 15 ML IV (14:14)
[2023-01-26] MEDS: 0.9% NaCl VAD Flush IV (15:12)
[2023-01-26 15:15] VITALS: BP 165/65; PULSE 78
== END 2023-01-26 13:56 | disposition home or self-care (01) ==
LOC: MEDOUTP 13:55
PROVIDERS: Referring Provider Psychiatry & Neurology Neurology; Visit Provider Psychiatry & Neurology Neurology
DX: E71.40 Disorder of carnitine metabolism, unspecified (principal)
CPT/HCPCS: 96365; J7040; J7050; A4216

== ENCOUNTER 2023-01-29 14:14 | Outpatient (CLI) | payer MEDICARE, BC, SELFPAY ==
[2023-01-29] MEDS: 0.9 % NaCl (Sterile) Posiflush 10 mL IV (14:23)
[2023-01-29] MEDS: 0.9% NaCl IVPB Med Flush (250 mL) 15 ML IV (14:29)
[2023-01-29 14:30] VITALS: BP 166/73; PULSE 60; RESP 16; TEMP 35.9; O2SAT 99
[2023-01-29] MEDS: 0.9% NaCl VAD Flush IV (15:23)
[2023-01-29 15:26] VITALS: BP 164/90; PULSE 67
== END 2023-01-29 14:15 | disposition home or self-care (01) ==
LOC: MEDOUTP 14:14
PROVIDERS: Referring Provider Psychiatry & Neurology Neurology; Visit Provider Psychiatry & Neurology Neurology
DX: E71.40 Disorder of carnitine metabolism, unspecified (principal)
CPT/HCPCS: 96365; J7040; J7050; A4216

== ENCOUNTER 2023-02-02 14:10 | Outpatient (CLI) | payer MEDICARE, BC, SELFPAY ==
[2023-02-02] MEDS: 0.9 % NaCl (Sterile) Posiflush 10 mL IV (14:23)
[2023-02-02 14:25] VITALS: BP 143/71; PULSE 61; RESP 16; TEMP 36
[2023-02-02] MEDS: 0.9% NaCl VAD Flush IV (15:35)
[2023-02-02 15:37] VITALS: BP 149/70; PULSE 55; RESP 16; TEMP 35.8; O2SAT 100
== END 2023-02-02 14:11 | disposition home or self-care (01) ==
LOC: MEDOUTP 14:10
PROVIDERS: Referring Provider Psychiatry & Neurology Neurology; Visit Provider Psychiatry & Neurology Neurology
DX: E71.40 Disorder of carnitine metabolism, unspecified (principal)
CPT/HCPCS: 96365; J7040; A4216

== ENCOUNTER 2023-02-05 13:25 | Outpatient (CLI) | payer MEDICARE, BC, SELFPAY ==
[2023-02-05] MEDS: 0.9 % NaCl (Sterile) Posiflush 10 mL IV (13:43)
[2023-02-05] MEDS: 0.9% NaCl IVPB Med Flush (250 mL) 15 ML IV (13:44)
[2023-02-05 13:48] VITALS: BP 123/67; PULSE 56; RESP 16; TEMP 36.6; O2SAT 96; BMI 34.9
[2023-02-05] MEDS: 0.9% NaCl VAD Flush IV (14:47)
[2023-02-05 14:48] VITALS: BP 138/68; PULSE 57; RESP 16; TEMP 36.6; O2SAT 99
== END 2023-02-05 13:26 | disposition home or self-care (01) ==
LOC: MEDOUTP 13:26
PROVIDERS: Referring Provider Psychiatry & Neurology Neurology; Visit Provider Psychiatry & Neurology Neurology
DX: E71.40 Disorder of carnitine metabolism, unspecified (principal)
CPT/HCPCS: 96365; J7040; J7050; A4216

== ENCOUNTER 2023-02-12 14:11 | Outpatient (CLI) | payer MEDICARE, BC, SELFPAY ==
[2023-02-12 14:18] VITALS: BP 154/73; PULSE 60; RESP 16; TEMP 36.1; O2SAT 100; BMI 36.6
[2023-02-12] MEDS: 0.9 % NaCl (Sterile) Posiflush 10 mL IV (14:29)
[2023-02-12] MEDS: 0.9% NaCl IVPB Med Flush (250 mL) 15 ML IV (14:29)
[2023-02-12] MEDS: 0.9% NaCl VAD Flush IV (15:22)
[2023-02-12 15:27] VITALS: BP 140/62; PULSE 60; RESP 16; O2SAT 99
== END 2023-02-12 14:12 | disposition home or self-care (01) ==
LOC: MEDOUTP 14:12
PROVIDERS: Referring Provider Psychiatry & Neurology Neurology; Visit Provider Psychiatry & Neurology Neurology
DX: E71.40 Disorder of carnitine metabolism, unspecified (principal)
CPT/HCPCS: 96365; J7040; J7050; A4216

== ENCOUNTER 2023-02-16 13:55 | Outpatient (CLI) | payer MEDICARE, BC, SELFPAY ==
[2023-02-16] MEDS: 0.9 % NaCl (Sterile) Posiflush 10 mL IV (14:07)
[2023-02-16] MEDS: 0.9% NaCl IVPB Med Flush (250 mL) 15 ML IV (14:08)
[2023-02-16 14:12] VITALS: BP 146/65; PULSE 60; RESP 16; TEMP 36.3; O2SAT 98; BMI 34.9
[2023-02-16] MEDS: 0.9% NaCl VAD Flush IV (15:22)
[2023-02-16 15:24] VITALS: BP 165/75; PULSE 59; RESP 16; TEMP 36.3; O2SAT 100
== END 2023-02-16 13:56 | disposition home or self-care (01) ==
LOC: MEDOUTP 13:56
PROVIDERS: Referring Provider Psychiatry & Neurology Neurology; Visit Provider Psychiatry & Neurology Neurology
DX: E71.40 Disorder of carnitine metabolism, unspecified (principal)
CPT/HCPCS: 96365; J7040; J7050; A4216

== ENCOUNTER 2023-02-19 11:02 | Outpatient (CLI) | payer MEDICARE, BC, SELFPAY ==
[2023-02-19 11:16] VITALS: BP 158/80; PULSE 63; RESP 16; TEMP 36.6; O2SAT 98
[2023-02-19] MEDS: 0.9 % NaCl (Sterile) Posiflush 10 mL IV (11:20)
[2023-02-19] MEDS: 0.9% NaCl IVPB Med Flush (250 mL) 15 ML IV (11:30)
[2023-02-19] MEDS: 0.9% NaCl VAD Flush IV (12:55)
[2023-02-19 12:57] VITALS: BP 161/73; PULSE 53; RESP 16
== END 2023-02-19 11:03 | disposition home or self-care (01) ==
PROVIDERS: Referring Provider Psychiatry & Neurology Neurology; Visit Provider Psychiatry & Neurology Neurology
DX: E71.40 Disorder of carnitine metabolism, unspecified (principal)
CPT/HCPCS: 96365; J7040; J7050; A4216

== ENCOUNTER 2023-03-09 14:36 | Outpatient (CLI) | payer MEDICARE, BC, SELFPAY ==
[2023-03-09 14:43] VITALS: BP 128/68; PULSE 65; RESP 16; TEMP 36.1; O2SAT 99
[2023-03-09] MEDS: 0.9 % NaCl (Sterile) Posiflush 10 mL IV (14:45)
[2023-03-09] MEDS: 0.9% Normal Saline (500mL Bag) 500 ML 999 ML IV (14:51)
[2023-03-09] MEDS: LEVOCARNITINE IV (15:07)
[2023-03-09] MEDS: NORMAL SALINE 0.9% IV (15:07)
[2023-03-09] MEDS: 0.9% NaCl VAD Flush IV (16:04)
[2023-03-09 16:07] VITALS: BP 125/70; PULSE 64; RESP 16; TEMP 36.2; O2SAT 97
== END 2023-03-09 14:37 | disposition home or self-care (01) ==
LOC: MEDOUTP 14:37
PROVIDERS: Referring Provider Psychiatry & Neurology Neurology; Visit Provider Psychiatry & Neurology Neurology
DX: E71.40 Disorder of carnitine metabolism, unspecified (principal)
CPT/HCPCS: 96365; J7040; A4216

== ENCOUNTER 2023-03-12 14:14 | Outpatient (CLI) | payer MEDICARE, BC, SELFPAY ==
[2023-03-12] MEDS: 0.9 % NaCl (Sterile) Posiflush 10 mL IV (14:21)
[2023-03-12 14:25] VITALS: BP 149/65; PULSE 56; RESP 16; TEMP 36.2; O2SAT 96
[2023-03-12] MEDS: LEVOCARNITINE IV (14:30)
[2023-03-12] MEDS: NORMAL SALINE 0.9% IV (14:30)
[2023-03-12] MEDS: 0.9% NaCl VAD Flush IV (15:36)
[2023-03-12 15:40] VITALS: BP 145/64; PULSE 56; RESP 16; TEMP 36.2; O2SAT 99
== END 2023-03-12 14:15 | disposition home or self-care (01) ==
LOC: MEDOUTP 14:14
PROVIDERS: Referring Provider Psychiatry & Neurology Neurology; Visit Provider Psychiatry & Neurology Neurology
DX: E71.40 Disorder of carnitine metabolism, unspecified (principal)
CPT/HCPCS: 96365; J7040; A4216

== ENCOUNTER 2023-03-23 14:04 | Outpatient (CLI) | payer MEDICARE, BC, SELFPAY ==
[2023-03-23 14:10] VITALS: BP 168/74; PULSE 62; RESP 16; TEMP 36.6; O2SAT 97
[2023-03-23] MEDS: 0.9 % NaCl (Sterile) Posiflush 10 mL IV (14:18)
[2023-03-23] MEDS: 0.9% Normal Saline (500mL Bag) 500 ML 999 ML IV (14:19)
[2023-03-23] MEDS: NORMAL SALINE 0.9% IV (14:21)
[2023-03-23] MEDS: LEVOCARNITINE IV (14:21)
[2023-03-23] MEDS: 0.9% NaCl VAD Flush IV (15:35)
[2023-03-23 15:37] VITALS: BP 198/72; PULSE 80; RESP 16
== END 2023-03-23 14:05 | disposition home or self-care (01) ==
LOC: MEDOUTP 14:04
PROVIDERS: Referring Provider Psychiatry & Neurology Neurology; Visit Provider Psychiatry & Neurology Neurology
DX: E71.40 Disorder of carnitine metabolism, unspecified (principal)
CPT/HCPCS: 96365; J7040; A4216

== ENCOUNTER 2023-03-26 13:55 | Outpatient (CLI) | payer MEDICARE, BC, SELFPAY ==
[2023-03-26 14:12] VITALS: BP 152/67; PULSE 64; RESP 16; TEMP 36.2; O2SAT 98
[2023-03-26] MEDS: 0.9 % NaCl (Sterile) Posiflush 10 mL IV (14:15)
[2023-03-26] MEDS: 0.9% Normal Saline (500mL Bag) 500 ML 999 ML IV (14:17)
[2023-03-26] MEDS: LEVOCARNITINE IV (14:48)
[2023-03-26] MEDS: NORMAL SALINE 0.9% IV (14:48)
[2023-03-26] MEDS: 0.9% NaCl VAD Flush IV (15:33)
[2023-03-26 15:34] VITALS: BP 152/67; PULSE 64; RESP 16; TEMP 36.2; O2SAT 98
== END 2023-03-26 13:56 | disposition home or self-care (01) ==
LOC: MEDOUTP 13:55
PROVIDERS: Referring Provider Psychiatry & Neurology Neurology; Visit Provider Psychiatry & Neurology Neurology
DX: E71.40 Disorder of carnitine metabolism, unspecified (principal)
CPT/HCPCS: 96365; J7040; A4216

== ENCOUNTER 2023-04-13 14:15 | Outpatient (CLI) | payer MEDICARE, BC, SELFPAY ==
[2023-04-13] MEDS: 0.9% Normal Saline (500mL Bag) 500 ML 999 ML IV (14:39)
[2023-04-13] MEDS: 0.9 % NaCl (Sterile) Posiflush 10 mL IV (14:39)
[2023-04-13 14:40] VITALS: BP 135/65; PULSE 62; RESP 16; TEMP 36.6; O2SAT 97; BMI 34.9
[2023-04-13] MEDS: LEVOCARNITINE IV (14:52)
[2023-04-13] MEDS: NORMAL SALINE 0.9% IV (14:52)
[2023-04-13] MEDS: 0.9% NaCl VAD Flush IV (15:49)
[2023-04-13 15:50] VITALS: BP 128/73; PULSE 58; RESP 16; TEMP 36.6; O2SAT 99
== END 2023-04-13 14:16 | disposition home or self-care (01) ==
LOC: MEDOUTP 14:15
PROVIDERS: Referring Provider Psychiatry & Neurology Neurology; Visit Provider Psychiatry & Neurology Neurology
DX: E71.40 Disorder of carnitine metabolism, unspecified (principal)
CPT/HCPCS: 96365; J7040; A4216

== ENCOUNTER 2023-04-27 14:29 | Outpatient (CLI) | payer MEDICARE, BC, SELFPAY ==
[2023-04-27] MEDS: 0.9 % NaCl (Sterile) Posiflush 10 mL IV (14:40)
[2023-04-27] MEDS: 0.9% NaCl IVPB Med Flush (250 mL) 15 ML IV (14:40)
[2023-04-27] MEDS: NORMAL SALINE 0.9% IV (14:47)
[2023-04-27] MEDS: LEVOCARNITINE IV (14:47)
[2023-04-27 14:48] VITALS: BP 162/63; PULSE 53; RESP 16; TEMP 36.2; O2SAT 98; BMI 24.1
[2023-04-27 15:37] VITALS: BP 150/69; PULSE 57; RESP 16; TEMP 36.3; O2SAT 99
[2023-04-27] MEDS: 0.9% NaCl VAD Flush IV (15:39)
== END 2023-04-27 14:30 | disposition home or self-care (01) ==
LOC: MEDOUTP 14:29
PROVIDERS: Referring Provider Psychiatry & Neurology Neurology; Visit Provider Psychiatry & Neurology Neurology
DX: E71.40 Disorder of carnitine metabolism, unspecified (principal)
CPT/HCPCS: 96365; J7040; J7050; A4216

== ENCOUNTER 2023-04-30 14:19 | Outpatient (CLI) | payer MEDICARE, BC, SELFPAY ==
[2023-04-30] MEDS: 0.9 % NaCl (Sterile) Posiflush 10 mL IV (14:29)
[2023-04-30 14:40] VITALS: BP 140/67; PULSE 55; RESP 16; TEMP 36.7; O2SAT 97
[2023-04-30] MEDS: NORMAL SALINE 0.9% IV (14:54)
[2023-04-30] MEDS: LEVOCARNITINE IV (14:54)
[2023-04-30] MEDS: 0.9% NaCl VAD Flush IV (15:51)
[2023-04-30 15:53] VITALS: BP 163/66; PULSE 56
== END 2023-04-30 14:20 | disposition home or self-care (01) ==
LOC: MEDOUTP 14:19
PROVIDERS: Referring Provider Psychiatry & Neurology Neurology; Visit Provider Psychiatry & Neurology Neurology
DX: E71.40 Disorder of carnitine metabolism, unspecified (principal)
CPT/HCPCS: 96365; J7040; A4216

== ENCOUNTER 2023-05-04 14:29 | Outpatient (CLI) | payer MEDICARE, BC, SELFPAY ==
[2023-05-04 14:45] VITALS: BP 157/67; PULSE 52; RESP 18; TEMP 36.1; O2SAT 99; BMI 24.1
[2023-05-04] MEDS: 0.9% NaCl IVPB Med Flush (250 mL) 15 ML IV (15:00)
[2023-05-04] MEDS: LEVOCARNITINE IV (15:05)
[2023-05-04] MEDS: NORMAL SALINE 0.9% IV (15:05)
[2023-05-04] MEDS: 0.9% NaCl VAD Flush IV (15:43)
[2023-05-04 15:49] VITALS: BP 149/68; PULSE 56; RESP 16; TEMP 36.5; O2SAT 97
== END 2023-05-04 14:30 | disposition home or self-care (01) ==
LOC: MEDOUTP 14:29
PROVIDERS: Referring Provider Psychiatry & Neurology Neurology; Visit Provider Psychiatry & Neurology Neurology
DX: E71.40 Disorder of carnitine metabolism, unspecified (principal)
CPT/HCPCS: 96365; J7040; J7050; A4216

== ENCOUNTER 2023-05-25 14:36 | Outpatient (CLI) | payer MEDICARE, BC, SELFPAY ==
[2023-05-25 14:47] VITALS: BP 146/75; PULSE 72; RESP 16; TEMP 35.9
[2023-05-25] MEDS: 0.9% NaCl IVPB Med Flush (250 mL) 999 ML IV (14:47)
[2023-05-25] MEDS: NORMAL SALINE 0.9% IV (15:06)
[2023-05-25] MEDS: LEVOCARNITINE IV (15:06)
[2023-05-25] MEDS: 0.9 % NaCl (Sterile) Posiflush 10 mL IV (15:06)
[2023-05-25] MEDS: 0.9% NaCl VAD Flush IV (15:50)
[2023-05-25 15:53] VITALS: BP 150/66; PULSE 58; RESP 16; TEMP 36.6; O2SAT 100
== END 2023-05-25 14:37 | disposition home or self-care (01) ==
LOC: MEDOUTP 14:36
PROVIDERS: Referring Provider Psychiatry & Neurology Neurology; Visit Provider Psychiatry & Neurology Neurology
DX: E71.40 Disorder of carnitine metabolism, unspecified (principal)
CPT/HCPCS: 96365; J7040; J7050; A4216

== ENCOUNTER 2023-05-28 13:32 | Outpatient (CLI) | payer MEDICARE, BC, SELFPAY ==
[2023-05-28] MEDS: 0.9% NaCl VAD Flush IV ×2 (13:50→14:40)
[2023-05-28] MEDS: 0.9 % NaCl (Sterile) Posiflush 10 mL IV (13:50)
[2023-05-28 13:52] VITALS: BP 119/77; PULSE 58; RESP 16; TEMP 36.7; O2SAT 96
[2023-05-28] MEDS: NORMAL SALINE 0.9% IV (14:03)
[2023-05-28] MEDS: 0.9% NaCl IVPB Med Flush (250 mL) 15 ML IV (14:03)
[2023-05-28] MEDS: LEVOCARNITINE IV (14:03)
[2023-05-28 14:27] LABS: Absolute Lymphocyte Count 1.14 X10^3/uL (0.83-4.51); Basophil# 0.02 X10^3/uL; Basophil% 0.4 % (0-1); Eosinophil# 0.02 X10^3/uL; Eosinophils% 0.4 % (0-5); Hematocrit 38.7 % (37-47); Hemoglobin 12.6 g/dL (12.0-15.0); Lymphocyte # 1.14 X10^3/ul (0.83-4.51); Lymphocyte % 24.7 % (19-41); Mean Corp Hgb Conc 32.6 g/dL (32-36); Mean Corpuscular Hgb 30.6 pg (27.0-32.0); Mean Corpuscular Volume 93.9 fL (81-99); Monocyte# 0.45 X10^3/uL; Monocyte% 9.8 % (0-10); NRBC Flagged by Analyzer 0 % (0-5); Neutrophil # 2.97 X10^3/uL (2.7-7.7); Neutrophil % 64.5 % (47-70); Platelet Count 289 K/mm3 (150-450); RBC Distribution Width CV 13.3 % (11.6-14.6); RBC Distribution Width SD 45.6 fl (35.1-43.9); Red Blood Count 4.12 M/mm3 (4.2-5.4); White Blood Count 4.6 K/mm3 (4.4-11.0)
[2023-05-28 14:41] VITALS: BP 143/65; PULSE 57; RESP 16; O2SAT 100
[2023-05-28 14:51] LABS: Vitamin B12 409 pg/mL (211-911); Vitamin D,25 Hydroxy 29.2 ng/mL
[2023-05-28 15:00] LABS: ALB/GLOB Ratio 0.9 RATIO (0.9-2.4); AST(SGOT) 22 U/L (15-37); Alanine Aminotransfer ALT/SGPT 14 U/L (13-56); Albumin, Serum 3.1 g/dL (3.2-5.0); Alkaline Phosphatase 55 U/L (45-117); Anion Gap 1 (5-15); BUN 17 mg/dL (7-18); BUN/Creat Ratio 25.7 RATIO (10-20); CRP 3.62 mg/L (0.0-3.0); Calcium,Total 8.4 mg/dL (8.5-10.1); Chloride 110 mmol/L (98-107); Cholesterol 224 mg/dL (200); Creatinine, Serum 0.66 mg/dL (0.55-1.02); EST Glomerular Filtration Rate 93 mL/min (>60); Est Glom Filt Rate - Afr Amer 112 mL/min (>60); Globulin 3.3 g/dL (2.2-4.2); Glucose 116 mg/dL (74-106); High Density Lipoprotein 70 mg/dL; Potassium 3.8 mmol/L (3.5-5.1); Protein, Total 6.4 g/dL (6.4-8.2); Sodium Level 140 mmol/L (136-145); Triglycerides 105 mg/dL; Very Low Density Lipoprotein 21 mg/dL (5-40)
[2023-05-29 08:59] LABS: Hemoglobin A1c 5.9 % (3.8-5.6)
[2023-06-02 01:07] LABS: Vitamin B1, Thiamine 99.2 nmol/L (66.5-200.0)
== END 2023-05-28 13:33 | disposition home or self-care (01) ==
LOC: MEDOUTP 13:32
PROVIDERS: Referring Provider Psychiatry & Neurology Neurology; Visit Provider Psychiatry & Neurology Neurology
DX: E71.40 Disorder of carnitine metabolism, unspecified (principal); E55.9 Vitamin D deficiency, unspecified; D64.9 Anemia, unspecified; R73.01 Impaired fasting glucose; E78.00 Pure hypercholesterolemia, unspecified; R41.3 Other amnesia
CPT/HCPCS: 96365; 36591; 80053; 80061; 82306; 82607; 82746; 83036; 84425; 85025; 86140; J7040; J7050; A4216

== ENCOUNTER 2023-06-01 14:18 | Outpatient (CLI) | payer MEDICARE, BC, SELFPAY ==
[2023-06-01 14:30] VITALS: BP 164/68; PULSE 52; RESP 16; TEMP 36.2; O2SAT 97
[2023-06-01] MEDS: 0.9 % NaCl (Sterile) Posiflush 10 mL IV (14:30)
[2023-06-01] MEDS: 0.9% NaCl IVPB Med Flush (250 mL) 15 ML IV (14:30)
[2023-06-01] MEDS: NORMAL SALINE 0.9% IV (14:45)
[2023-06-01] MEDS: LEVOCARNITINE IV (14:45)
[2023-06-01] MEDS: 0.9% NaCl VAD Flush IV (15:27)
[2023-06-01 15:30] VITALS: BP 169/75; PULSE 55; RESP 16
== END 2023-06-01 14:19 | disposition home or self-care (01) ==
LOC: MEDOUTP 14:18
PROVIDERS: Referring Provider Psychiatry & Neurology Neurology; Visit Provider Psychiatry & Neurology Neurology
DX: E71.40 Disorder of carnitine metabolism, unspecified (principal)
CPT/HCPCS: 96365; J7040; J7050; A4216

== ENCOUNTER 2023-06-04 14:12 | Outpatient (CLI) | payer MEDICARE, BC, SELFPAY ==
[2023-06-04] MEDS: 0.9 % NaCl (Sterile) Posiflush 10 mL IV (14:22)
[2023-06-04 14:27] VITALS: BP 168/70; PULSE 54; RESP 16; TEMP 36.1; O2SAT 96; BMI 34.9
[2023-06-04] MEDS: LEVOCARNITINE IV (14:31)
[2023-06-04] MEDS: NORMAL SALINE 0.9% IV (14:31)
[2023-06-04] MEDS: 0.9% NaCl IVPB Med Flush (250 mL) 15 ML IV (14:31)
[2023-06-04] MEDS: 0.9% NaCl VAD Flush IV (15:32)
[2023-06-04 15:36] VITALS: BP 179/74; PULSE 56; RESP 16; TEMP 35.9; O2SAT 98
== END 2023-06-04 14:13 | disposition home or self-care (01) ==
LOC: MEDOUTP 14:12
PROVIDERS: PCP Nurse Practitioner Family; Referring Provider Psychiatry & Neurology Neurology; Visit Provider Psychiatry & Neurology Neurology
DX: E71.40 Disorder of carnitine metabolism, unspecified (principal)
CPT/HCPCS: 96365; J7040; J7050; A4216

== ENCOUNTER → 2023-06-07 | Outpatient (CLI) | payer MEDICARE, BC, SELFPAY ==
--- NOTE | 2023-06-07 13:18 | CT_ITS ---
STUDY: CT BRAIN WITHOUT CONTRAST REASON FOR EXAM: Female, 73 years old. Memory change RADIATION DOSAGE (If Supplied By Facility): CTDIvol = ( 47.06 ) mGy, DLP = ( 890.33 ) mGycm TECHNIQUE: Transaxial CT imaging of the brain was performed without administration of intravenous contrast material. Individualized dose optimization techniques were used for this CT. COMPARISON: Comparison is made with prior study dated October 19, 2022. FINDINGS: Normal soft tissue structures. Normal calvarium. There is mild cerebral atrophy with widening of the extra-axial spaces and ventricular dilatation. Normal white matter tracts of the cerebral hemispheres. Normal basal ganglia and thalami. Normal brainstem. Normal cerebellum. There is no intracranial hemorrhage. There are no findings of an acute ischemic infarction. Normal visualized paranasal sinuses. CT/Brain/Head without Contrast IMPRESSION: Chronic involutional changes of the brain. Electronically Signed: Martín Morales MD at 13:31 EST ,
== END | disposition home or self-care (01) ==
LOC: CT 13:04
PROVIDERS: PCP Nurse Practitioner Family; Referring Provider Nurse Practitioner Family; Visit Provider Nurse Practitioner Family
DX: R41.3 Other amnesia (principal)
CPT/HCPCS: 70450

== ENCOUNTER 2023-06-11 14:06 | Outpatient (CLI) | payer MEDICARE, BC, SELFPAY ==
[2023-06-11] MEDS: 0.9 % NaCl (Sterile) Posiflush 10 mL IV (14:15)
[2023-06-11] MEDS: 0.9% NaCl IVPB Med Flush (250 mL) 15 ML IV (14:15)
[2023-06-11 14:20] VITALS: BP 146/62; PULSE 58; RESP 16; TEMP 36; O2SAT 98; BMI 34.9
[2023-06-11] MEDS: LEVOCARNITINE IV (14:32)
[2023-06-11] MEDS: NORMAL SALINE 0.9% IV (14:32)
[2023-06-11 15:11] VITALS: BP 162/72; PULSE 55; RESP 16; TEMP 36.1; O2SAT 99
[2023-06-11] MEDS: 0.9% NaCl VAD Flush IV (15:16)
== END 2023-06-11 14:07 | disposition home or self-care (01) ==
LOC: MEDOUTP 14:06
PROVIDERS: PCP Nurse Practitioner Family; Referring Provider Psychiatry & Neurology Neurology; Visit Provider Psychiatry & Neurology Neurology
DX: E71.40 Disorder of carnitine metabolism, unspecified (principal)
CPT/HCPCS: 96365; J7040; J7050; A4216

== ENCOUNTER 2023-06-15 14:31 | Outpatient (CLI) | payer MEDICARE, BC, SELFPAY ==
[2023-06-15] MEDS: 0.9% NaCl VAD Flush IV ×2 (14:46→15:45)
[2023-06-15] MEDS: 0.9% NaCl IVPB Med Flush (250 mL) 15 ML IV (14:46)
[2023-06-15 14:50] VITALS: BP 177/71; PULSE 53; RESP 16; TEMP 36.7; O2SAT 98
[2023-06-15] MEDS: LEVOCARNITINE IV (15:06)
[2023-06-15] MEDS: NORMAL SALINE 0.9% IV (15:06)
[2023-06-15 15:45] VITALS: BP 167/66; PULSE 51; RESP 16
== END 2023-06-15 14:32 | disposition home or self-care (01) ==
LOC: MEDOUTP 14:31
PROVIDERS: PCP Nurse Practitioner Family; Referring Provider Psychiatry & Neurology Neurology; Visit Provider Psychiatry & Neurology Neurology
DX: E71.40 Disorder of carnitine metabolism, unspecified (principal)
CPT/HCPCS: 96365; J7040; J7050; A4216

== ENCOUNTER 2023-07-13 13:36 | Outpatient (CLI) | payer MEDICARE, BC, SELFPAY ==
[2023-07-13] MEDS: 0.9% Normal Saline (500mL Bag) 500 ML 999 ML IV (13:52)
[2023-07-13] MEDS: 0.9% NaCl VAD Flush IV ×2 (13:52→15:04)
[2023-07-13] MEDS: 0.9 % NaCl (Sterile) Posiflush 10 mL IV (13:52)
[2023-07-13 13:54] VITALS: BP 142/62; PULSE 51; RESP 16; TEMP 36.3; O2SAT 98; BMI 35.4
[2023-07-13] MEDS: LEVOCARNITINE IV (14:10)
[2023-07-13] MEDS: NORMAL SALINE 0.9% IV (14:10)
[2023-07-13 15:09] VITALS: BP 136/62; PULSE 60; RESP 16
== END 2023-07-13 13:37 | disposition home or self-care (01) ==
LOC: MEDOUTP 13:36
PROVIDERS: PCP Nurse Practitioner Family; Referring Provider Psychiatry & Neurology Neurology; Visit Provider Psychiatry & Neurology Neurology
DX: E71.40 Disorder of carnitine metabolism, unspecified (principal)
CPT/HCPCS: 96365; J7040; A4216

== ENCOUNTER 2023-07-20 14:08 | Outpatient (CLI) | payer MEDICARE, BC, SELFPAY ==
[2023-07-20] MEDS: 0.9% NaCl IVPB Med Flush (250 mL) 15 ML IV (14:27)
[2023-07-20] MEDS: NORMAL SALINE 0.9% IV (14:27)
[2023-07-20] MEDS: LEVOCARNITINE IV (14:27)
[2023-07-20] MEDS: 0.9 % NaCl (Sterile) Posiflush 10 mL IV (14:30)
[2023-07-20 14:31] VITALS: BP 137/69; PULSE 57; RESP 16; TEMP 36.6; O2SAT 97; BMI 34.9
[2023-07-20] MEDS: 0.9% NaCl VAD Flush IV (15:26)
[2023-07-20 15:27] VITALS: BP 159/78; PULSE 55
== END 2023-07-20 14:09 | disposition home or self-care (01) ==
LOC: MEDOUTP 14:08
PROVIDERS: PCP Nurse Practitioner Family; Referring Provider Psychiatry & Neurology Neurology; Visit Provider Psychiatry & Neurology Neurology
DX: E71.40 Disorder of carnitine metabolism, unspecified (principal)
CPT/HCPCS: 96365; J7040; J7050; A4216

== ENCOUNTER 2023-07-23 13:18 | Outpatient (CLI) | payer MEDICARE, BC, SELFPAY ==
[2023-07-23] MEDS: 0.9% NaCl IVPB Med Flush (250 mL) 15 ML IV (13:32)
[2023-07-23] MEDS: 0.9 % NaCl (Sterile) Posiflush 10 mL IV (13:32)
[2023-07-23 13:41] VITALS: BP 179/75; PULSE 56; RESP 16; TEMP 36.6; O2SAT 98; BMI 34.9
[2023-07-23] MEDS: NORMAL SALINE 0.9% IV (13:50)
[2023-07-23] MEDS: LEVOCARNITINE IV (13:50)
[2023-07-23] MEDS: 0.9% NaCl VAD Flush IV (14:33)
[2023-07-23 14:37] VITALS: BP 172/86; PULSE 55; RESP 16; TEMP 36.5; O2SAT 95
== END 2023-07-23 13:19 | disposition home or self-care (01) ==
LOC: MEDOUTP 13:18
PROVIDERS: PCP Nurse Practitioner Family; Referring Provider Psychiatry & Neurology Neurology; Visit Provider Psychiatry & Neurology Neurology
DX: E71.40 Disorder of carnitine metabolism, unspecified (principal)
CPT/HCPCS: 96365; J7040; J7050; A4216

== ENCOUNTER 2023-07-27 13:46 | Outpatient (CLI) | payer MEDICARE, BC, SELFPAY ==
[2023-07-27] MEDS: 0.9 % NaCl (Sterile) Posiflush 10 mL IV (13:49)
[2023-07-27 13:55] VITALS: BP 150/73; PULSE 63; RESP 16; TEMP 36.4; O2SAT 96; BMI 35.2
[2023-07-27] MEDS: LEVOCARNITINE IV (14:00)
[2023-07-27] MEDS: NORMAL SALINE 0.9% IV (14:00)
[2023-07-27] MEDS: 0.9% NaCl VAD Flush IV (14:40)
[2023-07-27 14:41] VITALS: BP 124/53; PULSE 62; RESP 16; TEMP 36.6; O2SAT 98
== END 2023-07-27 13:47 | disposition home or self-care (01) ==
LOC: MEDOUTP 13:46
PROVIDERS: PCP Nurse Practitioner Family; Referring Provider Psychiatry & Neurology Neurology; Visit Provider Psychiatry & Neurology Neurology
DX: E71.40 Disorder of carnitine metabolism, unspecified (principal)
CPT/HCPCS: 96365; J7040; A4216

== ENCOUNTER 2023-07-30 13:37 | Outpatient (CLI) | payer MEDICARE, BC, SELFPAY ==
[2023-07-30 13:52] VITALS: BP 140/91; PULSE 56; RESP 16; TEMP 36.5; O2SAT 97; BMI 34.9
[2023-07-30] MEDS: NORMAL SALINE 0.9% IV (14:24)
[2023-07-30] MEDS: LEVOCARNITINE IV (14:24)
[2023-07-30] MEDS: 0.9% NaCl VAD Flush IV ×2 (14:25→15:03)
[2023-07-30] MEDS: 0.9% NaCl IVPB Med Flush (250 mL) 15 ML IV (14:25)
[2023-07-30] MEDS: 0.9 % NaCl (Sterile) Posiflush 10 mL IV (14:25)
== END 2023-07-30 13:38 | disposition home or self-care (01) ==
LOC: MEDOUTP 13:37
PROVIDERS: PCP Nurse Practitioner Family; Referring Provider Psychiatry & Neurology Neurology; Visit Provider Psychiatry & Neurology Neurology
DX: E71.40 Disorder of carnitine metabolism, unspecified (principal)
CPT/HCPCS: 96365; J7040; J7050; A4216

== ENCOUNTER 2023-08-04 13:29 | Outpatient (CLI) | payer MEDICARE, BC, SELFPAY ==
[2023-08-04] MEDS: 0.9 % NaCl (Sterile) Posiflush 10 mL IV (13:50)
[2023-08-04] MEDS: NORMAL SALINE 0.9% IV (13:56)
[2023-08-04] MEDS: LEVOCARNITINE IV (13:56)
[2023-08-04 13:59] VITALS: BP 142/80; PULSE 78; RESP 16; TEMP 35.9; O2SAT 98
[2023-08-04] MEDS: 0.9% NaCl VAD Flush IV (15:14)
[2023-08-04 15:17] VITALS: BP 159/73; PULSE 78
== END 2023-08-04 13:30 | disposition home or self-care (01) ==
LOC: MEDOUTP 13:29
PROVIDERS: PCP Nurse Practitioner Family; Referring Provider Psychiatry & Neurology Neurology; Visit Provider Psychiatry & Neurology Neurology
DX: E71.40 Disorder of carnitine metabolism, unspecified (principal)
CPT/HCPCS: 96365; J7040; A4216

== ENCOUNTER 2023-08-12 20:53 | Emergency (ER) | payer MEDICARE, BC, SELFPAY ==
[2023-08-12 20:56] VITALS: BP 181/78; PULSE 73; RESP 16; TEMP 36.6; O2SAT 95; BMI 34.9
[2023-08-12 21:00] VITALS: BP 154/83
--- NOTE | 2023-08-12 21:40 | ED.RN ---
Per no sitter needed at this time.
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
[2023-08-12 22:20] LABS: Absolute Neutrophil Count 5.3 X10^3/uL (2.0-7.7); Basophil# 0.04 X10^3/uL; Basophil% 0.5 % (0-1); Eosinophil# 0.06 X10^3/uL; Eosinophils% 0.7 % (0-5); Hematocrit 38.8 % (37-47); Hemoglobin 12.6 g/dL (12.0-15.0); Lymphocyte % 25.3 % (19-41); Mean Corp Hgb Conc 32.5 g/dL (32-36); Mean Corpuscular Hgb 30.8 pg (27.0-32.0); Mean Corpuscular Volume 94.9 fL (81-99); Mean Platelet Vol. 9.5 fl (6.2-12.0); Monocyte# 0.76 X10^3/uL; Monocyte% 9.2 % (0-10); NRBC Flagged by Analyzer 0 % (0-5); Neutrophil # 5.31 X10^3/uL (2.7-7.7); Neutrophil % 63.9 % (47-70); Platelet Count 286 K/mm3 (150-450); Red Blood Count 4.09 M/mm3 (4.2-5.4); White Blood Count 8.3 K/mm3 (4.4-11.0)
[2023-08-12 22:33] VITALS: BP 168/80; PULSE 72; RESP 16; O2SAT 98
[2023-08-12 22:41] LABS: Anion Gap 4 (5-15); BUN 21 mg/dL (7-18); BUN/Creat Ratio 26.7 RATIO (10-20); Calcium,Total 8.9 mg/dL (8.5-10.1); Chloride 111 mmol/L (98-107); Creatinine, Serum 0.79 mg/dL (0.55-1.02); EST Glomerular Filtration Rate 76 mL/min (>60); Est Glom Filt Rate - Afr Amer 92 mL/min (>60); Glucose 124 mg/dL (74-106); Potassium 3.5 mmol/L (3.5-5.1); Sodium Level 142 mmol/L (136-145)
[2023-08-12 22:54] LABS: Alcohol, Blood (Medical)-Serum < 3.0 mg/dL
[2023-08-12 23:38] VITALS: BP 151/74; PULSE 68; RESP 18; O2SAT 98
[2023-08-12 23:58] LABS: Amphetamine Urine VISTA NEGATIVE (<1000 ng/mL); Barbiturate Urine VISTA NEGATIVE (< 200 ng/mL); Benzodiazepine Urine VISTA NEGATIVE (< 200 ng/mL); Cocaine Urine VISTA NEGATIVE (< 300 ng/mL); Ecstacy Urine VISTA NEGATIVE (< 500 ng/mL); Methadone Urine VISTA NEGATIVE (< 300 ng/mL); PCP Urine VISTA NEGATIVE (< 25 ng/mL); THC Urine VISTA NEGATIVE (< 50 ng/mL); Vista UDS pH Range 7
[2023-08-13] MEDS: cycloBENZAPRine HCl 5 MG TABLET PO (01:31)
[2023-08-13 01:38] VITALS: BP 148/84; PULSE 68; RESP 18; TEMP 36.8; O2SAT 99
== END 2023-08-13 01:43 | disposition home or self-care (01) ==
PROVIDERS: Emergency Provider Emergency Medicine; PCP Nurse Practitioner Family; Visit Provider Emergency Medicine
DX: R45.851 Suicidal ideations (principal); I10 Essential (primary) hypertension; Z79.51 Long term (current) use of inhaled steroids; Z79.899 Other long term (current) drug therapy
CPT/HCPCS: 36591; 80048; 80307; 80320; 85025; 99282; A4216; G0480

== ENCOUNTER 2023-08-27 13:53 | Outpatient (CLI) | payer MEDICARE, BC, SELFPAY ==
[2023-08-27] MEDS: 0.9 % NaCl (Sterile) Posiflush 10 mL IV (14:00)
[2023-08-27 14:10] VITALS: BP 147/76; PULSE 63; RESP 16; TEMP 36; O2SAT 100
[2023-08-27] MEDS: NORMAL SALINE 0.9% IV (14:33)
[2023-08-27] MEDS: 0.9% NaCl IVPB Med Flush (250 mL) 15 ML IV (14:33)
[2023-08-27] MEDS: LEVOCARNITINE IV (14:33)
[2023-08-27] MEDS: 0.9% NaCl VAD Flush IV (15:10)
[2023-08-27 15:15] VITALS: BP 155/71; PULSE 62; RESP 16; TEMP 36.6; O2SAT 100
== END 2023-08-27 13:54 | disposition home or self-care (01) ==
LOC: MEDOUTP 13:53
PROVIDERS: PCP Nurse Practitioner Family; Referring Provider Psychiatry & Neurology Neurology; Visit Provider Psychiatry & Neurology Neurology
DX: E71.40 Disorder of carnitine metabolism, unspecified (principal)
CPT/HCPCS: 96365; J7040; J7050; A4216

== ENCOUNTER 2023-09-10 13:44 | Outpatient (CLI) | payer MEDICARE, BC, SELFPAY ==
[2023-09-10] MEDS: 0.9 % NaCl (Sterile) Posiflush 10 mL IV (14:10)
[2023-09-10] MEDS: 0.9% NaCl IVPB Med Flush (250 mL) 15 ML IV (14:10)
[2023-09-10 14:13] VITALS: BP 133/62; PULSE 64; RESP 16; TEMP 36.9; O2SAT 99
[2023-09-10] MEDS: NORMAL SALINE 0.9% IV (14:25)
[2023-09-10] MEDS: LEVOCARNITINE IV (14:25)
[2023-09-10] MEDS: 0.9% NaCl VAD Flush IV (15:08)
[2023-09-10 15:09] VITALS: BP 141/61; PULSE 61; RESP 16; O2SAT 100
== END 2023-09-10 13:45 | disposition home or self-care (01) ==
LOC: MEDOUTP 13:44
PROVIDERS: PCP Nurse Practitioner Family; Referring Provider Psychiatry & Neurology Neurology; Visit Provider Psychiatry & Neurology Neurology
DX: E71.40 Disorder of carnitine metabolism, unspecified (principal)
CPT/HCPCS: 96365; J7040; J7050; A4216

== ENCOUNTER 2023-09-16 13:40 | Outpatient (CLI) | payer MEDICARE, BC, SELFPAY ==
[2023-09-16 13:58] VITALS: BP 143/69; PULSE 73; RESP 16; TEMP 36.4; O2SAT 98
[2023-09-16] MEDS: 0.9% Normal Saline (500mL Bag) 500 ML 999 ML IV (14:02)
[2023-09-16] MEDS: NORMAL SALINE 0.9% IV (14:10)
[2023-09-16] MEDS: LEVOCARNITINE IV (14:10)
[2023-09-16 15:01] VITALS: BP 139/65; PULSE 70
== END 2023-09-16 13:41 | disposition home or self-care (01) ==
LOC: MEDOUTP 13:40
PROVIDERS: PCP Nurse Practitioner Family; Referring Provider Psychiatry & Neurology Neurology; Visit Provider Psychiatry & Neurology Neurology
DX: E71.40 Disorder of carnitine metabolism, unspecified (principal)
CPT/HCPCS: 96365; J7040; J7050; A4216

== ENCOUNTER 2023-09-21 13:57 | Outpatient (CLI) | payer MEDICARE, BC, SELFPAY ==
[2023-09-21] MEDS: 0.9 % NaCl (Sterile) Posiflush 10 mL IV (14:15)
[2023-09-21] MEDS: 0.9% NaCl IVPB Med Flush (250 mL) 15 ML IV (14:16)
[2023-09-21 14:21] VITALS: BP 159/87; PULSE 59; RESP 16; TEMP 36.7
[2023-09-21] MEDS: LEVOCARNITINE IV (14:29)
[2023-09-21] MEDS: NORMAL SALINE 0.9% IV (14:29)
[2023-09-21] MEDS: 0.9% NaCl VAD Flush IV (15:20)
[2023-09-21 15:22] VITALS: BP 112/56; PULSE 66; RESP 16; TEMP 36.5; O2SAT 99
== END 2023-09-21 13:58 | disposition home or self-care (01) ==
LOC: MEDOUTP 13:57
PROVIDERS: PCP Nurse Practitioner Family; Referring Provider Psychiatry & Neurology Neurology; Visit Provider Psychiatry & Neurology Neurology
DX: E71.40 Disorder of carnitine metabolism, unspecified (principal)
CPT/HCPCS: 96365; J7040; J7050; A4216

== ENCOUNTER 2023-10-01 13:43 | Outpatient (CLI) | payer MEDICARE, BC, SELFPAY ==
[2023-10-01 14:07] VITALS: BP 123/78; PULSE 60; RESP 16; TEMP 36; O2SAT 98; BMI 34.4
[2023-10-01] MEDS: LEVOCARNITINE IV (14:18)
[2023-10-01] MEDS: NORMAL SALINE 0.9% IV (14:18)
[2023-10-01 15:05] VITALS: BP 159/63; PULSE 64; RESP 16
== END 2023-10-01 13:44 | disposition home or self-care (01) ==
LOC: MEDOUTP 13:43
PROVIDERS: PCP Nurse Practitioner Family; Referring Provider Psychiatry & Neurology Neurology; Visit Provider Psychiatry & Neurology Neurology
DX: E71.40 Disorder of carnitine metabolism, unspecified (principal)
CPT/HCPCS: 96365; J7040; J7050; A4216

== ENCOUNTER 2023-10-08 13:39 | Outpatient (CLI) | payer MEDICARE, BC, SELFPAY ==
[2023-10-08 13:48] VITALS: BP 131/66; RESP 14; TEMP 35.9; BMI 36.6
[2023-10-08] MEDS: LEVOCARNITINE IV (14:13)
[2023-10-08] MEDS: NORMAL SALINE 0.9% IV (14:13)
[2023-10-08 14:59] VITALS: BP 132/64; PULSE 67; RESP 16; TEMP 36.1; O2SAT 97
== END 2023-10-08 13:40 | disposition home or self-care (01) ==
LOC: MEDOUTP 13:39
PROVIDERS: PCP Nurse Practitioner Family; Referring Provider Psychiatry & Neurology Neurology; Visit Provider Psychiatry & Neurology Neurology
DX: E71.40 Disorder of carnitine metabolism, unspecified (principal)
CPT/HCPCS: 96365; J7040; J7050; A4216

== ENCOUNTER 2023-10-12 13:36 | Outpatient (CLI) | payer MEDICARE, BC, SELFPAY ==
[2023-10-12 14:19] VITALS: BP 156/59; PULSE 65; RESP 16; TEMP 36.6; O2SAT 100; BMI 36.6
[2023-10-12] MEDS: LEVOCARNITINE IV (14:33)
[2023-10-12] MEDS: NORMAL SALINE 0.9% IV (14:33)
[2023-10-12 15:23] VITALS: BP 139/57; PULSE 71; RESP 16; TEMP 36.6; O2SAT 98
== END 2023-10-12 13:37 | disposition home or self-care (01) ==
LOC: MEDOUTP 13:36
PROVIDERS: PCP Nurse Practitioner Family; Referring Provider Psychiatry & Neurology Neurology; Visit Provider Psychiatry & Neurology Neurology
DX: E71.40 Disorder of carnitine metabolism, unspecified (principal)
CPT/HCPCS: 96365; J7040; J7050; A4216

== ENCOUNTER 2023-10-15 13:15 | Outpatient (CLI) | payer MEDICARE, BC, SELFPAY ==
[2023-10-15 13:25] VITALS: BP 135/75; PULSE 65; RESP 16; TEMP 36; O2SAT 98
[2023-10-15] MEDS: NORMAL SALINE 0.9% IV (13:41)
[2023-10-15] MEDS: LEVOCARNITINE IV (13:41)
[2023-10-15 14:34] VITALS: BP 157/71; PULSE 62; RESP 16; TEMP 36.3
== END 2023-10-15 13:16 | disposition home or self-care (01) ==
LOC: MEDOUTP 13:16
PROVIDERS: PCP Nurse Practitioner Family; Referring Provider Psychiatry & Neurology Neurology; Visit Provider Psychiatry & Neurology Neurology
DX: E71.40 Disorder of carnitine metabolism, unspecified (principal)
CPT/HCPCS: 96365; J7040; J7050; A4216

== ENCOUNTER 2023-10-22 13:12 | Outpatient (CLI) | payer MEDICARE, BC, SELFPAY ==
[2023-10-22 13:31] VITALS: BP 142/62; PULSE 61; RESP 16; TEMP 36.1; O2SAT 98; BMI 34.5
[2023-10-22] MEDS: 0.9 % NaCl (Sterile) Posiflush 10 mL IV (13:50)
[2023-10-22] MEDS: 0.9% NaCl IVPB Med Flush (250 mL) 15 ML IV (13:50)
[2023-10-22] MEDS: NORMAL SALINE 0.9% IV (13:52)
[2023-10-22] MEDS: LEVOCARNITINE IV (13:52)
[2023-10-22] MEDS: 0.9% NaCl VAD Flush IV (14:32)
[2023-10-22 14:36] VITALS: BP 150/95; PULSE 60; RESP 16; TEMP 36.1; O2SAT 98
== END 2023-10-22 13:13 | disposition home or self-care (01) ==
LOC: MEDOUTP 13:12
PROVIDERS: PCP Nurse Practitioner Family; Referring Provider Psychiatry & Neurology Neurology; Visit Provider Psychiatry & Neurology Neurology
DX: E71.40 Disorder of carnitine metabolism, unspecified (principal)
CPT/HCPCS: 96365; J7040; J7050; A4216

== ENCOUNTER 2023-10-29 12:18 | Outpatient (CLI) | payer MEDICARE, BC, SELFPAY ==
[2023-10-29 12:30] VITALS: BP 132/65; PULSE 57; RESP 16; TEMP 35.9
[2023-10-29] MEDS: LEVOCARNITINE IV (12:45)
[2023-10-29] MEDS: NORMAL SALINE 0.9% IV (12:45)
[2023-10-29 13:33] VITALS: BP 145/67; PULSE 55; RESP 16; TEMP 35.6; O2SAT 100
== END 2023-10-29 12:19 | disposition home or self-care (01) ==
LOC: MEDOUTP 12:18
PROVIDERS: PCP Nurse Practitioner Family; Referring Provider Psychiatry & Neurology Neurology; Visit Provider Psychiatry & Neurology Neurology
DX: E71.40 Disorder of carnitine metabolism, unspecified (principal)
CPT/HCPCS: 96365; 96375; J7040; A4216

== ENCOUNTER 2023-11-05 11:34 | Outpatient (CLI) | payer MEDICARE, BC, SELFPAY ==
[2023-11-05] MEDS: 0.9% NaCl IVPB Med Flush (250 mL) 999 ML IV (11:50)
[2023-11-05] MEDS: 0.9 % NaCl (Sterile) Posiflush 10 mL IV (11:50)
[2023-11-05 11:52] VITALS: BP 140/67; PULSE 55; RESP 16; TEMP 35.8; O2SAT 96; BMI 34.2
[2023-11-05] MEDS: NORMAL SALINE 0.9% IV (11:59)
[2023-11-05] MEDS: LEVOCARNITINE IV (11:59)
[2023-11-05 12:50] VITALS: BP 148/66; PULSE 58; RESP 16; TEMP 36.2; O2SAT 99
== END 2023-11-05 23:59 | disposition home or self-care (01) ==
LOC: MEDOUTP 11:34
PROVIDERS: PCP Nurse Practitioner Family; Referring Provider Psychiatry & Neurology Neurology; Visit Provider Psychiatry & Neurology Neurology
DX: E71.40 Disorder of carnitine metabolism, unspecified (principal)
CPT/HCPCS: 96365; J7040; J7050; A4216

== ENCOUNTER 2023-11-12 12:48 | Outpatient (CLI) | payer MEDICARE, BC, SELFPAY ==
[2023-11-12 13:03] VITALS: BP 131/65; PULSE 60; RESP 16; TEMP 36.4; O2SAT 99
[2023-11-12] MEDS: LEVOCARNITINE IV (13:09)
[2023-11-12] MEDS: NORMAL SALINE 0.9% IV (13:09)
[2023-11-12 14:05] VITALS: BP 158/67; PULSE 56; RESP 16; TEMP 36.3
== END 2023-11-12 23:59 | disposition home or self-care (01) ==
LOC: MEDOUTP 12:48
PROVIDERS: PCP Nurse Practitioner Family; Referring Provider Psychiatry & Neurology Neurology; Visit Provider Psychiatry & Neurology Neurology
DX: E71.40 Disorder of carnitine metabolism, unspecified (principal)
CPT/HCPCS: 96365; J7040; J7050; A4216

== ENCOUNTER 2023-11-19 13:10 | Outpatient (CLI) | payer MEDICARE, BC, SELFPAY ==
[2023-11-19 13:22] VITALS: BP 114/80; PULSE 60; RESP 16; TEMP 36.1; O2SAT 97; BMI 24.7
[2023-11-19] MEDS: 0.9 % NaCl (Sterile) Posiflush 10 mL IV (13:29)
[2023-11-19] MEDS: LEVOCARNITINE IV (13:47)
[2023-11-19] MEDS: NORMAL SALINE 0.9% IV (13:47)
[2023-11-19] MEDS: 0.9% NaCl IVPB Med Flush (250 mL) 15 ML IV (13:47)
[2023-11-19] MEDS: 0.9% NaCl VAD Flush IV (14:43)
[2023-11-19 14:49] VITALS: BP 144/61; PULSE 58; RESP 16; O2SAT 100
== END 2023-11-19 23:59 | disposition home or self-care (01) ==
LOC: MEDOUTP 13:10
PROVIDERS: PCP Nurse Practitioner Family; Referring Provider Psychiatry & Neurology Neurology; Visit Provider Psychiatry & Neurology Neurology
DX: E71.40 Disorder of carnitine metabolism, unspecified (principal)
CPT/HCPCS: 96365; 96375; J7040; J7050; A4216

== ENCOUNTER 2023-11-23 13:57 | Outpatient (CLI) | payer MEDICARE, BC, SELFPAY ==
[2023-11-23 14:10] VITALS: BP 125/67; PULSE 65; RESP 16; TEMP 36.2; O2SAT 99
[2023-11-23] MEDS: 0.9% Normal Saline (500mL Bag) 500 ML 999 ML IV (14:10)
[2023-11-23] MEDS: LEVOCARNITINE IV (14:25)
[2023-11-23] MEDS: NORMAL SALINE 0.9% IV (14:25)
[2023-11-23 15:16] VITALS: BP 139/75; PULSE 72
== END 2023-11-23 23:59 | disposition home or self-care (01) ==
LOC: MEDOUTP 13:57
PROVIDERS: PCP Nurse Practitioner Family; Referring Provider Psychiatry & Neurology Neurology; Visit Provider Psychiatry & Neurology Neurology
DX: E71.40 Disorder of carnitine metabolism, unspecified (principal)
CPT/HCPCS: 96365; J7040

== ENCOUNTER 2023-11-30 14:08 | Outpatient (CLI) | payer MEDICARE, BC, SELFPAY ==
[2023-11-30 14:20] VITALS: BP 147/61; PULSE 70; RESP 16; TEMP 36.2; O2SAT 98
[2023-11-30] MEDS: LEVOCARNITINE IV (14:45)
[2023-11-30] MEDS: NORMAL SALINE 0.9% IV (14:45)
[2023-11-30 15:26] VITALS: BP 127/60; PULSE 59; RESP 16; TEMP 36.2; O2SAT 99
== END 2023-11-30 23:59 | disposition home or self-care (01) ==
LOC: MEDOUTP 14:08
PROVIDERS: PCP Nurse Practitioner Family; Referring Provider Psychiatry & Neurology Neurology; Visit Provider Psychiatry & Neurology Neurology
DX: E71.40 Disorder of carnitine metabolism, unspecified (principal)
CPT/HCPCS: 96365; J7040; J7050; A4216

== ENCOUNTER 2023-12-03 13:40 | Outpatient (CLI) | payer MEDICARE, BC, SELFPAY ==
[2023-12-03] MEDS: 0.9% Normal Saline (500mL Bag) 500 ML 999 ML IV (13:46)
[2023-12-03 13:51] VITALS: BP 133/67; PULSE 54; RESP 16; TEMP 36.2; O2SAT 96; BMI 40.2
[2023-12-03] MEDS: LEVOCARNITINE IV (14:06)
[2023-12-03] MEDS: NORMAL SALINE 0.9% IV (14:06)
[2023-12-03 14:55] VITALS: BP 147/60; PULSE 63; RESP 16; TEMP 36.5; O2SAT 99
== END 2023-12-03 23:59 | disposition home or self-care (01) ==
LOC: MEDOUTP 13:40
PROVIDERS: PCP Nurse Practitioner Family; Referring Provider Psychiatry & Neurology Neurology; Visit Provider Psychiatry & Neurology Neurology
DX: E71.40 Disorder of carnitine metabolism, unspecified (principal)
CPT/HCPCS: 96365; J7040; A4216

== ENCOUNTER 2023-12-14 13:52 | Outpatient (CLI) | payer MEDICARE, BC, SELFPAY ==
[2023-12-14 14:00] VITALS: BP 129/64; PULSE 62; RESP 16; TEMP 36.1; O2SAT 100
[2023-12-14] MEDS: 0.9% Normal Saline (500mL Bag) 500 ML 999 ML IV (14:09)
[2023-12-14] MEDS: LEVOCARNITINE IV (14:17)
[2023-12-14] MEDS: NORMAL SALINE 0.9% IV (14:17)
[2023-12-14 15:24] VITALS: BP 129/83; PULSE 57; RESP 16; TEMP 35.9; O2SAT 97
== END 2023-12-14 23:59 | disposition home or self-care (01) ==
LOC: MEDOUTP 13:52
PROVIDERS: PCP Nurse Practitioner Family; Referring Provider Psychiatry & Neurology Neurology; Visit Provider Psychiatry & Neurology Neurology
DX: E71.40 Disorder of carnitine metabolism, unspecified (principal)
CPT/HCPCS: 96365; J7040; A4216

== ENCOUNTER 2023-12-17 12:17 | Outpatient (CLI) | payer MEDICARE, BC, SELFPAY ==
[2023-12-17 12:30] VITALS: BP 128/61; PULSE 58; RESP 16; TEMP 36.1; O2SAT 99
[2023-12-17] MEDS: NORMAL SALINE 0.9% IV (12:46)
[2023-12-17] MEDS: LEVOCARNITINE IV (12:46)
[2023-12-17 13:30] VITALS: BP 140/56; PULSE 58; RESP 16; O2SAT 100
== END 2023-12-17 23:59 | disposition home or self-care (01) ==
LOC: MEDOUTP 12:17
PROVIDERS: PCP Nurse Practitioner Family; Referring Provider Psychiatry & Neurology Neurology; Visit Provider Psychiatry & Neurology Neurology
DX: E71.40 Disorder of carnitine metabolism, unspecified (principal)
CPT/HCPCS: 96365; J7040; A4216

== ENCOUNTER 2023-12-21 13:46 | Outpatient (CLI) | payer MEDICARE, BC, SELFPAY ==
[2023-12-21] MEDS: 0.9% Normal Saline (500mL Bag) 500 ML 999 ML IV (13:55)
[2023-12-21] MEDS: 0.9 % NaCl (Sterile) Posiflush 10 mL IV (13:55)
[2023-12-21 13:56] VITALS: BP 103/61; PULSE 77; RESP 16; TEMP 36; O2SAT 98; BMI 38.4
[2023-12-21] MEDS: NORMAL SALINE 0.9% IV (14:09)
[2023-12-21] MEDS: LEVOCARNITINE IV (14:09)
[2023-12-21 14:55] VITALS: BP 141/60; PULSE 66
[2023-12-21] MEDS: 0.9% NaCl VAD Flush IV (14:55)
== END 2023-12-21 23:59 | disposition home or self-care (01) ==
LOC: MEDOUTP 13:46
PROVIDERS: PCP Nurse Practitioner Family; Referring Provider Psychiatry & Neurology Neurology; Visit Provider Psychiatry & Neurology Neurology
DX: E71.40 Disorder of carnitine metabolism, unspecified (principal)
CPT/HCPCS: 96365; J7040; A4216

== ENCOUNTER 2023-12-24 12:47 | Outpatient (CLI) | payer MEDICARE, BC, SELFPAY ==
[2023-12-24 13:02] VITALS: BP 123/61; PULSE 54; RESP 16; TEMP 36; O2SAT 93
[2023-12-24] MEDS: LEVOCARNITINE IV (13:10)
[2023-12-24] MEDS: NORMAL SALINE 0.9% IV (13:10)
[2023-12-24] MEDS: 0.9% Normal Saline (500mL Bag) 500 ML 999 ML IV (13:51)
[2023-12-24 14:07] VITALS: BP 125/54; PULSE 56; RESP 16; TEMP 36.1; O2SAT 97
== END 2023-12-24 23:59 | disposition home or self-care (01) ==
LOC: MEDOUTP 12:47
PROVIDERS: PCP Nurse Practitioner Family; Referring Provider Psychiatry & Neurology Neurology; Visit Provider Psychiatry & Neurology Neurology
DX: E71.40 Disorder of carnitine metabolism, unspecified (principal)
CPT/HCPCS: 96365; J7040; A4216

== ENCOUNTER 2023-12-28 13:33 | Outpatient (CLI) | payer MEDICARE, BC, SELFPAY ==
[2023-12-28 13:44] VITALS: BP 162/75; PULSE 53; RESP 16; TEMP 35.8; O2SAT 98
[2023-12-28] MEDS: 0.9% Normal Saline (500mL Bag) 500 ML 999 ML IV (13:49)
[2023-12-28] MEDS: NORMAL SALINE 0.9% IV (13:59)
[2023-12-28] MEDS: LEVOCARNITINE IV (13:59)
[2023-12-28 14:51] VITALS: BP 134/44; PULSE 59; RESP 16; TEMP 36.4; O2SAT 98
== END 2023-12-28 23:59 | disposition home or self-care (01) ==
LOC: MEDOUTP 13:33
PROVIDERS: PCP Nurse Practitioner Family; Referring Provider Psychiatry & Neurology Neurology; Visit Provider Psychiatry & Neurology Neurology
DX: E71.40 Disorder of carnitine metabolism, unspecified (principal)
CPT/HCPCS: 96365; J7040

== ENCOUNTER 2023-12-31 13:02 | Outpatient (CLI) | payer MEDICARE, BC, SELFPAY ==
[2023-12-31 13:11] VITALS: BP 115/63; PULSE 55; RESP 16; TEMP 35.5; O2SAT 96
[2023-12-31] MEDS: LEVOCARNITINE IV (13:18)
[2023-12-31] MEDS: NORMAL SALINE 0.9% IV (13:18)
[2023-12-31 14:15] VITALS: BP 140/64; PULSE 58; RESP 16; TEMP 36.1; O2SAT 100
== END 2023-12-31 23:59 | disposition home or self-care (01) ==
LOC: MEDOUTP 13:02
PROVIDERS: PCP Nurse Practitioner Family; Referring Provider Psychiatry & Neurology Neurology; Visit Provider Psychiatry & Neurology Neurology
DX: E71.40 Disorder of carnitine metabolism, unspecified (principal)
CPT/HCPCS: 96365; J7040; A4216

== ENCOUNTER 2024-01-07 13:07 | Outpatient (CLI) | payer MEDICARE, BC, SELFPAY ==
[2024-01-07] MEDS: 0.9 % NaCl (Sterile) Posiflush 10 mL IV (13:12)
[2024-01-07] MEDS: 0.9% Normal Saline (500mL Bag) 500 ML 999 ML IV (13:18)
[2024-01-07 13:19] VITALS: BP 131/77; PULSE 64; RESP 16; TEMP 35.6
[2024-01-07] MEDS: NORMAL SALINE 0.9% IV (13:35)
[2024-01-07] MEDS: LEVOCARNITINE IV (13:35)
[2024-01-07] MEDS: 0.9% NaCl VAD Flush IV (14:13)
[2024-01-07 14:16] VITALS: BP 122/54; PULSE 59; RESP 16; TEMP 36; O2SAT 100
== END 2024-01-07 23:59 | disposition home or self-care (01) ==
LOC: MEDOUTP 13:07
PROVIDERS: PCP Nurse Practitioner Family; Referring Provider Psychiatry & Neurology Neurology; Visit Provider Psychiatry & Neurology Neurology
DX: E71.40 Disorder of carnitine metabolism, unspecified (principal)
CPT/HCPCS: 96365; J7040; A4216

== ENCOUNTER 2024-01-11 13:03 | Outpatient (CLI) | payer MEDICARE, BC, SELFPAY ==
[2024-01-11 13:32] VITALS: BP 117/61; PULSE 54; RESP 16; TEMP 36.2; O2SAT 97
[2024-01-11] MEDS: 0.9% Normal Saline (500mL Bag) 500 ML 999 ML IV (13:35)
[2024-01-11] MEDS: LEVOCARNITINE IV (13:50)
[2024-01-11] MEDS: NORMAL SALINE 0.9% IV (13:50)
[2024-01-11 14:33] VITALS: BP 120/62; PULSE 59; RESP 16; TEMP 35.8; O2SAT 99
== END 2024-01-11 23:59 | disposition home or self-care (01) ==
LOC: MEDOUTP 13:03
PROVIDERS: PCP Nurse Practitioner Family; Referring Provider Psychiatry & Neurology Neurology; Visit Provider Psychiatry & Neurology Neurology
DX: E71.40 Disorder of carnitine metabolism, unspecified (principal)
CPT/HCPCS: 96365; J7040; A4216

== ENCOUNTER 2024-01-18 13:50 | Outpatient (CLI) | payer MEDICARE, BC, SELFPAY ==
[2024-01-18] MEDS: 0.9% Normal Saline (500mL Bag) 500 ML 999 ML IV (13:58)
[2024-01-18 14:02] VITALS: BP 132/71; PULSE 62; RESP 16; TEMP 36.1; O2SAT 96
[2024-01-18] MEDS: NORMAL SALINE 0.9% IV (14:23)
[2024-01-18] MEDS: LEVOCARNITINE IV (14:23)
[2024-01-18 15:06] VITALS: BP 159/59; PULSE 61; RESP 16; TEMP 35.9; O2SAT 98
== END 2024-01-18 23:59 | disposition home or self-care (01) ==
LOC: MEDOUTP 13:50
PROVIDERS: PCP Nurse Practitioner Family; Referring Provider Psychiatry & Neurology Neurology; Visit Provider Psychiatry & Neurology Neurology
DX: E71.40 Disorder of carnitine metabolism, unspecified (principal)
CPT/HCPCS: 96365; J7040; A4216

== ENCOUNTER 2024-01-21 13:14 | Outpatient (CLI) | payer MEDICARE, BC, SELFPAY ==
[2024-01-21 13:26] VITALS: BP 123/61; PULSE 66; RESP 16; TEMP 35.9; O2SAT 97
[2024-01-21] MEDS: 0.9% Normal Saline (500mL Bag) 500 ML 999 ML IV (13:30)
[2024-01-21] MEDS: LEVOCARNITINE IV (13:41)
[2024-01-21] MEDS: NORMAL SALINE 0.9% IV (13:41)
[2024-01-21 14:29] VITALS: BP 133/56; PULSE 68; RESP 16
== END 2024-01-21 23:59 | disposition home or self-care (01) ==
LOC: MEDOUTP 13:15
PROVIDERS: PCP Nurse Practitioner Family; Referring Provider Psychiatry & Neurology Neurology; Visit Provider Psychiatry & Neurology Neurology
DX: E71.40 Disorder of carnitine metabolism, unspecified (principal)
CPT/HCPCS: 96365; J7040; A4216

== ENCOUNTER 2024-02-08 13:12 | Outpatient (CLI) | payer MEDICARE, BC, SELFPAY ==
[2024-02-08] MEDS: NORMAL SALINE 0.9% IV (13:41)
[2024-02-08] MEDS: LEVOCARNITINE IV (13:41)
[2024-02-08 14:17] VITALS: BP 160/68; PULSE 52; RESP 16; TEMP 35.6; O2SAT 100
== END 2024-02-08 23:59 | disposition home or self-care (01) ==
LOC: MEDOUTP 13:12
PROVIDERS: PCP Nurse Practitioner Family; Referring Provider Psychiatry & Neurology Neurology; Visit Provider Psychiatry & Neurology Neurology
DX: E71.40 Disorder of carnitine metabolism, unspecified (principal)
CPT/HCPCS: 96365; J7040; A4216

== ENCOUNTER 2024-02-18 12:44 | Outpatient (CLI) | payer MEDICARE, BC, SELFPAY ==
[2024-02-18 12:53] VITALS: BP 118/55; PULSE 63; RESP 16; O2SAT 98; BMI 32.9
[2024-02-18] MEDS: 0.9% Normal Saline (500mL Bag) 500 ML 999 ML IV (12:58)
[2024-02-18] MEDS: LEVOCARNITINE IV (13:33)
[2024-02-18] MEDS: NORMAL SALINE 0.9% IV (13:33)
[2024-02-18 14:15] VITALS: BP 119/59; PULSE 52; RESP 16; O2SAT 98
== END 2024-02-18 23:59 | disposition home or self-care (01) ==
LOC: MEDOUTP 12:44
PROVIDERS: PCP Nurse Practitioner Family; Referring Provider Psychiatry & Neurology Neurology; Visit Provider Psychiatry & Neurology Neurology
DX: E71.40 Disorder of carnitine metabolism, unspecified (principal); M53.3 Sacrococcygeal disorders, not elsewhere classified
CPT/HCPCS: 96365; 72170; 72202; J7040; A4216

== ENCOUNTER → 2024-02-18 | Outpatient (CLI) | payer MEDICARE, BC, SELFPAY ==
--- NOTE | 2024-02-18 14:51 | RAD_ITS ---
EXAM: XR SACROILIAC JOINTS COMPLETE, 3 OR MORE VIEWS CLINICAL INDICATION: SI JOINT PAIN TECHNIQUE: Frontal and lateral or oblique views of the pelvis. COMPARISON: No relevant prior studies available. FINDINGS: BONES/JOINTS: Bilateral facet arthropathy in the lower lumbar spine. L4-L5 and L5-S1 degenerative disc disease. No displaced fracture. No destructive or sclerotic lesions. Note that overlapping bowel shadows may however obscure fine detail. Sacroiliac joints are unremarkable. No widening of the pubic symphysis. SOFT TISSUES: Unremarkable. No soft tissue swelling or gas. RAD/S-I Jts 3 or More Views IMPRESSION: 1. Bilateral facet arthropathy in the lower lumbar spine. 2. L4-L5 and L5-S1 degenerative disc disease. 3. Normal sacroiliac joints. Electronically Signed: Rashawn Delgado MD at 7:45 EDT ,
--- NOTE | 2024-02-18 14:52 | RAD_ITS ---
EXAM: XR PELVIS, 1 OR 2 VIEWS CLINICAL INDICATION: SI JOINT PAIN TECHNIQUE: Frontal view of the pelvis. COMPARISON: No relevant prior studies available. FINDINGS: BONES/JOINTS: Moderate facet arthropathy bilaterally in the lower lumbar spine. No displaced fracture. No destructive or sclerotic lesions. Note that overlapping bowel shadows may however obscure fine detail. Sacroiliac joints are unremarkable. No widening of the pubic symphysis. The articular structures are unremarkable. SOFT TISSUES: Unremarkable. No soft tissue swelling or gas. RAD/Pelvis 1 or 2 Views IMPRESSION: 1. Moderate facet arthropathy bilaterally in the lower lumbar spine. 2. Normal pelvis. Electronically Signed: Rashawn Delgado MD at 7:43 EDT ,
== END | disposition home or self-care (01) ==
LOC: MTRAD 14:35
PROVIDERS: PCP Nurse Practitioner Family; Referring Provider Nurse Practitioner Family; Visit Provider Nurse Practitioner Family
DX: M53.3 Sacrococcygeal disorders, not elsewhere classified (principal)
CPT/HCPCS: 72170; 72202

== ENCOUNTER 2024-02-25 13:18 | Outpatient (CLI) | payer MEDICARE, BC, SELFPAY ==
[2024-02-25 13:38] VITALS: BP 117/63; PULSE 56; RESP 16; TEMP 35.9; O2SAT 99; BMI 33.6
[2024-02-25] MEDS: LEVOCARNITINE IV (13:54)
[2024-02-25] MEDS: NORMAL SALINE 0.9% IV (13:54)
[2024-02-25] MEDS: 0.9% Normal Saline (500mL Bag) 500 ML 999 ML IV (13:55)
[2024-02-25 14:58] VITALS: BP 124/60; PULSE 62; RESP 16; TEMP 35.8; O2SAT 100
== END 2024-02-25 23:59 | disposition home or self-care (01) ==
LOC: MEDOUTP 13:18
PROVIDERS: PCP Nurse Practitioner Family; Referring Provider Psychiatry & Neurology Neurology; Visit Provider Psychiatry & Neurology Neurology
DX: E71.40 Disorder of carnitine metabolism, unspecified (principal)
CPT/HCPCS: 96365; J7040; A4216

== ENCOUNTER 2024-02-29 13:19 | Outpatient (CLI) | payer MEDICARE, BC, SELFPAY ==
[2024-02-29 13:34] VITALS: BP 133/68; PULSE 57; RESP 16; TEMP 36.2; O2SAT 98
[2024-02-29] MEDS: LEVOCARNITINE IV (13:47)
[2024-02-29] MEDS: NORMAL SALINE 0.9% IV (13:47)
[2024-02-29 14:30] VITALS: BP 130/75; PULSE 65; RESP 16; TEMP 35.8; O2SAT 99
== END 2024-02-29 23:59 | disposition home or self-care (01) ==
LOC: MEDOUTP 13:19
PROVIDERS: PCP Nurse Practitioner Family; Referring Provider Psychiatry & Neurology Neurology; Visit Provider Psychiatry & Neurology Neurology
DX: E71.40 Disorder of carnitine metabolism, unspecified (principal)
CPT/HCPCS: 96365; J7030; J7040; A4216

== ENCOUNTER 2024-03-03 12:55 | Outpatient (CLI) | payer MEDICARE, BC, SELFPAY ==
[2024-03-03 13:05] VITALS: BP 143/57; PULSE 57; RESP 16; O2SAT 98
[2024-03-03] MEDS: 0.9% Normal Saline (500mL Bag) 500 ML 999 ML IV (13:30)
[2024-03-03] MEDS: LEVOCARNITINE IV (13:46)
[2024-03-03] MEDS: NORMAL SALINE 0.9% IV (13:46)
[2024-03-03 14:35] VITALS: BP 129/66; PULSE 56; RESP 16; O2SAT 98
== END 2024-03-03 23:59 | disposition home or self-care (01) ==
LOC: MEDOUTP 12:55
PROVIDERS: PCP Nurse Practitioner Family; Referring Provider Psychiatry & Neurology Neurology; Visit Provider Psychiatry & Neurology Neurology
DX: E71.40 Disorder of carnitine metabolism, unspecified (principal)
CPT/HCPCS: 96365; J7040; A4216

== ENCOUNTER 2024-03-10 13:37 | Outpatient (CLI) | payer MEDICARE, BC, SELFPAY ==
[2024-03-10] MEDS: 0.9% Normal Saline (500mL Bag) 500 ML 999 ML IV (13:50)
[2024-03-10 13:52] VITALS: BP 126/69; PULSE 56; RESP 16; TEMP 36.8; O2SAT 97
[2024-03-10] MEDS: NORMAL SALINE 0.9% IV (14:38)
[2024-03-10] MEDS: LEVOCARNITINE IV (14:38)
[2024-03-10 15:19] VITALS: BP 113/77; PULSE 62; RESP 16; TEMP 36.6; O2SAT 99
== END 2024-03-10 23:59 | disposition home or self-care (01) ==
LOC: MEDOUTP 13:37
PROVIDERS: PCP Nurse Practitioner Family; Referring Provider Psychiatry & Neurology Neurology; Visit Provider Psychiatry & Neurology Neurology
DX: E71.40 Disorder of carnitine metabolism, unspecified (principal)
CPT/HCPCS: 96365; J7040; A4216

== ENCOUNTER 2024-03-17 13:00 | Outpatient (CLI) | payer MEDICARE, BC, SELFPAY ==
[2024-03-17] MEDS: 0.9% Normal Saline (500mL Bag) 500 ML 999 ML IV (13:43)
[2024-03-17] MEDS: NORMAL SALINE 0.9% IV (13:43)
[2024-03-17] MEDS: LEVOCARNITINE IV (13:43)
[2024-03-17] MEDS: 0.9 % NaCl (Sterile) Posiflush 10 mL IV (13:43)
[2024-03-17 13:47] VITALS: BP 132/57; PULSE 53; RESP 16; TEMP 36; O2SAT 100; BMI 36.6
[2024-03-17] MEDS: 0.9% NaCl Peripheral Flush Adult/Peds IV (14:30)
[2024-03-17 14:42] VITALS: BP 125/55; PULSE 60; RESP 16; TEMP 36.2; O2SAT 100
== END 2024-03-17 23:59 | disposition home or self-care (01) ==
LOC: MEDOUTP 13:01
PROVIDERS: PCP Nurse Practitioner Family; Referring Provider Psychiatry & Neurology Neurology; Visit Provider Psychiatry & Neurology Neurology
DX: E71.40 Disorder of carnitine metabolism, unspecified (principal)
CPT/HCPCS: 96365; J7040; A4216

== ENCOUNTER 2024-03-21 13:29 | Outpatient (CLI) | payer MEDICARE, BC, SELFPAY ==
[2024-03-21 13:39] VITALS: BP 141/67; PULSE 61; RESP 16; TEMP 35.8; O2SAT 98
[2024-03-21] MEDS: 0.9% Normal Saline (500mL Bag) 500 ML 999 ML IV (13:40)
[2024-03-21] MEDS: NORMAL SALINE 0.9% IV (14:08)
[2024-03-21] MEDS: LEVOCARNITINE IV (14:08)
[2024-03-21 14:52] VITALS: BP 145/78; PULSE 57; RESP 16; TEMP 36.2; O2SAT 100
== END 2024-03-21 23:59 | disposition home or self-care (01) ==
LOC: MEDOUTP 13:29
PROVIDERS: PCP Nurse Practitioner Family; Referring Provider Psychiatry & Neurology Neurology; Visit Provider Psychiatry & Neurology Neurology
DX: E71.40 Disorder of carnitine metabolism, unspecified (principal)
CPT/HCPCS: 96365; J7040; A4216

== ENCOUNTER 2024-03-31 13:51 | Outpatient (CLI) | payer MEDICARE, BC, SELFPAY ==
[2024-03-31] MEDS: 0.9% Normal Saline (250mL Bag) 250 ML 999 ML IV (14:09)
[2024-03-31] MEDS: LEVOCARNITINE IV (14:18)
[2024-03-31] MEDS: NORMAL SALINE 0.9% IV (14:18)
[2024-03-31 14:24] VITALS: BP 131/69; PULSE 64; RESP 16; TEMP 35.7; O2SAT 100
[2024-03-31 15:01] VITALS: BP 97/57; PULSE 80; RESP 16; TEMP 36.1; O2SAT 97
== END 2024-03-31 23:59 | disposition home or self-care (01) ==
LOC: MEDOUTP 13:51
PROVIDERS: PCP Nurse Practitioner Family; Referring Provider Psychiatry & Neurology Neurology; Visit Provider Psychiatry & Neurology Neurology
DX: E71.40 Disorder of carnitine metabolism, unspecified (principal)
CPT/HCPCS: 96365; J7040; J7050; A4216

== ENCOUNTER → 2024-04-13 | Outpatient (CLI) | payer MEDICARE, BC, SELFPAY ==
--- NOTE | 2024-04-13 14:16 | ART_ITS ---
Reason For Study: Vascular insufficiency Procedure A bilateral lower extremity continuous wave Doppler with analog waveform analysis and ankle brachial indexes. Left Segmental Pressures Left brachial= 176mmHg. Left posterior tibial artery = 189mmHg. Left dorsalis pedis artery = 192mmHg. The left dorsalis pedis waveforms are triphasic. The left posterior tibial artery waveforms are biphasic. Right Segmental Pressures Right brachial= 184mmHg. Right posterior tibial artery = 184mmHg. Right dorsalis pedis artery = 179mmHg. The right dorsalis pedis waveforms are triphasic. The right posterior tibial artery waveforms are triphasic. Indices The right ankle brachial index by the dorsalis pedis is 0.97. The right ankle brachial index by the posterior tibial artery is 1.00. The left ankle brachial index by the dorsalis pedis is 1.04. The left ankle brachial index by the posterior tibial artery is 1.03. VL/Ankle Brachial Index Interpretation Summary Right MARY ALICE 1.0, normal. Doppler/PVR waveforms of the right leg normal at rest. Left MARY ALICE 1.04, normal. Doppler/PVR waveforms of the left leg normal at rest. Ordering Physician: Hua Guadarrama Referring Physician: HUA GUADARRAMA [employer]IL [employer] Performed By: Regina Sanchez RVT
== END | disposition home or self-care (01) ==
LOC: CVS 14:12
PROVIDERS: PCP Nurse Practitioner Family; Referring Provider Nurse Practitioner Family; Visit Provider Nurse Practitioner Family
DX: I99.8 Other disorder of circulatory system (principal); R09.89 Other specified symptoms and signs involving the circulatory and respiratory systems
CPT/HCPCS: 93922

== ENCOUNTER 2024-04-14 13:40 | Outpatient (CLI) | payer MEDICARE, BC, SELFPAY ==
[2024-04-14 13:47] VITALS: BP 139/75; PULSE 60; RESP 16; TEMP 36.2; O2SAT 100; BMI 39.3
[2024-04-14] MEDS: 0.9% Normal Saline (500mL Bag) 500 ML 999 ML IV (14:03)
[2024-04-14] MEDS: NORMAL SALINE 0.9% IV (14:20)
[2024-04-14] MEDS: LEVOCARNITINE IV (14:20)
[2024-04-14 15:04] VITALS: BP 134/54; PULSE 64; RESP 16; TEMP 35.7; O2SAT 97
== END 2024-04-14 23:59 | disposition home or self-care (01) ==
LOC: MEDOUTP 13:40
PROVIDERS: PCP Nurse Practitioner Family; Referring Provider Psychiatry & Neurology Neurology; Visit Provider Psychiatry & Neurology Neurology
DX: E71.40 Disorder of carnitine metabolism, unspecified (principal)
CPT/HCPCS: 96365; J7040; A4216

== ENCOUNTER 2024-04-25 12:43 | Outpatient (CLI) | payer MEDICARE, BC, SELFPAY ==
[2024-04-25 12:55] VITALS: BP 124/72; PULSE 58; RESP 16; TEMP 35.9; O2SAT 95; BMI 30.9
[2024-04-25] MEDS: 0.9% Normal Saline (500mL Bag) 500 ML 999 ML IV (13:15)
[2024-04-25] MEDS: LEVOCARNITINE IV (13:56)
[2024-04-25] MEDS: NORMAL SALINE 0.9% IV (13:56)
[2024-04-25] MEDS: 0.9 % NaCl (Sterile) Posiflush 10 mL IV (14:41)
[2024-04-25] MEDS: 0.9% NaCl VAD Flush IV (14:41)
[2024-04-25 14:42] VITALS: BP 142/65; PULSE 72
== END 2024-04-25 23:59 | disposition home or self-care (01) ==
LOC: MEDOUTP 12:43
PROVIDERS: PCP Nurse Practitioner Family; Referring Provider Psychiatry & Neurology Neurology; Visit Provider Psychiatry & Neurology Neurology
DX: E71.40 Disorder of carnitine metabolism, unspecified (principal)
CPT/HCPCS: 96365; 96361; J7040; A4216

== ENCOUNTER 2024-05-02 12:54 | Outpatient (CLI) | payer MEDICARE, BC, SELFPAY ==
[2024-05-02 13:07] VITALS: BP 151/83; PULSE 56; RESP 16; TEMP 36.1; O2SAT 99
[2024-05-02] MEDS: 0.9% Normal Saline (500mL Bag) 500 ML 999 ML IV (13:30)
[2024-05-02] MEDS: LEVOCARNITINE IV (13:46)
[2024-05-02] MEDS: NORMAL SALINE 0.9% IV (13:46)
[2024-05-02 14:29] VITALS: BP 154/67; PULSE 61; RESP 16; TEMP 35.8; O2SAT 99
== END 2024-05-02 23:59 | disposition home or self-care (01) ==
LOC: MEDOUTP 12:55
PROVIDERS: PCP Nurse Practitioner Family; Referring Provider Psychiatry & Neurology Neurology; Visit Provider Psychiatry & Neurology Neurology
DX: E71.40 Disorder of carnitine metabolism, unspecified (principal)
CPT/HCPCS: 96365; J7040

== ENCOUNTER 2024-05-05 11:51 | Outpatient (CLI) | payer MEDICARE, BC, SELFPAY ==
[2024-05-05 12:04] VITALS: BP 151/56; PULSE 64; RESP 16; TEMP 36.1; O2SAT 98
[2024-05-05] MEDS: 0.9% Normal Saline (500mL Bag) 500 ML 999 ML IV (12:04)
[2024-05-05] MEDS: NORMAL SALINE 0.9% IV (12:19)
[2024-05-05] MEDS: LEVOCARNITINE IV (12:19)
[2024-05-05 13:22] VITALS: BP 158/75; PULSE 78; RESP 16; O2SAT 99
== END 2024-05-05 23:59 | disposition home or self-care (01) ==
LOC: MEDOUTP 11:51
PROVIDERS: PCP Nurse Practitioner Family; Referring Provider Psychiatry & Neurology Neurology; Visit Provider Psychiatry & Neurology Neurology
DX: E71.40 Disorder of carnitine metabolism, unspecified (principal)
CPT/HCPCS: 96365; J7040; A4216

== ENCOUNTER 2024-05-09 12:52 | Outpatient (CLI) | payer MEDICARE, BC, SELFPAY ==
[2024-05-09 13:06] VITALS: BP 128/62; PULSE 73; RESP 16; TEMP 35.9; O2SAT 97
[2024-05-09] MEDS: NORMAL SALINE 0.9% IV (13:39)
[2024-05-09] MEDS: LEVOCARNITINE IV (13:39)
[2024-05-09 14:39] VITALS: BP 134/74; PULSE 87; RESP 14; TEMP 36.3; O2SAT 98
== END 2024-05-09 23:59 | disposition home or self-care (01) ==
LOC: MEDOUTP 12:52
PROVIDERS: PCP Nurse Practitioner Family; Referring Provider Psychiatry & Neurology Neurology; Visit Provider Psychiatry & Neurology Neurology
DX: E71.40 Disorder of carnitine metabolism, unspecified (principal)
CPT/HCPCS: 96365; J7040; J7050; A4216

== ENCOUNTER 2024-05-19 11:09 | Outpatient (CLI) | payer MEDICARE, BC, SELFPAY ==
[2024-05-19 11:20] VITALS: BP 120/79; PULSE 58; RESP 16; TEMP 36.2; O2SAT 98; BMI 36.0
[2024-05-19] MEDS: LEVOCARNITINE IV (11:37)
[2024-05-19] MEDS: NORMAL SALINE 0.9% IV (11:37)
[2024-05-19] MEDS: 0.9% Normal Saline (250mL Bag) 250 ML 15 ML IV (11:39)
[2024-05-19 12:36] VITALS: BP 151/79; PULSE 58; RESP 16; TEMP 35.6; O2SAT 100
== END 2024-05-19 23:59 | disposition home or self-care (01) ==
LOC: MEDOUTP 11:09
PROVIDERS: PCP Nurse Practitioner Family; Referring Provider Psychiatry & Neurology Neurology; Visit Provider Psychiatry & Neurology Neurology
DX: E71.40 Disorder of carnitine metabolism, unspecified (principal)
CPT/HCPCS: 96365; A4216

== ENCOUNTER 2024-05-25 13:03 | Outpatient (CLI) | payer MEDICARE, BC, SELFPAY ==
[2024-05-25] MEDS: LEVOCARNITINE IV (13:32)
[2024-05-25] MEDS: NORMAL SALINE 0.9% IV (13:32)
[2024-05-25 13:35] VITALS: BP 138/72; PULSE 62; RESP 16; TEMP 36.3
[2024-05-25 14:33] VITALS: BP 162/88; PULSE 64; RESP 16; TEMP 35.6; O2SAT 100
== END 2024-05-25 23:59 | disposition home or self-care (01) ==
LOC: MEDOUTP 13:03
PROVIDERS: PCP Nurse Practitioner Family; Referring Provider Psychiatry & Neurology Neurology; Visit Provider Psychiatry & Neurology Neurology
DX: E71.40 Disorder of carnitine metabolism, unspecified (principal)
CPT/HCPCS: 96365; A4216

== ENCOUNTER 2024-06-01 13:42 | Outpatient (CLI) | payer MEDICARE, BC, SELFPAY ==
[2024-06-01] MEDS: 0.9% Normal Saline (250mL Bag) 250 ML 999 ML IV (13:51)
[2024-06-01 13:54] VITALS: BP 138/64; PULSE 57; RESP 16; TEMP 35.9
[2024-06-01] MEDS: LEVOCARNITINE IV (13:58)
[2024-06-01] MEDS: NORMAL SALINE 0.9% IV (13:58)
[2024-06-01 14:55] VITALS: BP 145/65; PULSE 72
== END 2024-06-01 23:59 | disposition home or self-care (01) ==
LOC: MEDOUTP 13:43
PROVIDERS: PCP Nurse Practitioner Family; Referring Provider Psychiatry & Neurology Neurology; Visit Provider Psychiatry & Neurology Neurology
DX: E71.40 Disorder of carnitine metabolism, unspecified (principal)
CPT/HCPCS: 96365; A4216

== ENCOUNTER 2024-06-05 13:31 | Outpatient (CLI) | payer MEDICARE, BC, SELFPAY ==
[2024-06-05] MEDS: 0.9% Normal Saline (250mL Bag) 250 ML 999 ML IV (13:39)
[2024-06-05 13:42] VITALS: BP 144/59; PULSE 55; RESP 16; TEMP 36.3; O2SAT 98
[2024-06-05] MEDS: LEVOCARNITINE IV (14:05)
[2024-06-05] MEDS: NORMAL SALINE 0.9% IV (14:05)
[2024-06-05 14:53] VITALS: BP 146/50; PULSE 61; RESP 16
== END 2024-06-05 23:59 | disposition home or self-care (01) ==
LOC: MEDOUTP 13:31
PROVIDERS: PCP Nurse Practitioner Family; Referring Provider Psychiatry & Neurology Neurology; Visit Provider Psychiatry & Neurology Neurology
DX: E71.40 Disorder of carnitine metabolism, unspecified (principal)
CPT/HCPCS: 96365; A4216

== ENCOUNTER 2024-06-12 13:38 | Outpatient (CLI) | payer MEDICARE, BC, SELFPAY ==
[2024-06-12 13:48] VITALS: BP 178/68; PULSE 56; RESP 18; TEMP 36.4; O2SAT 100
[2024-06-12] MEDS: 0.9% Normal Saline (250mL Bag) 250 ML 999 ML IV (13:56)
[2024-06-12] MEDS: NORMAL SALINE 0.9% IV (14:15)
[2024-06-12] MEDS: LEVOCARNITINE IV (14:15)
[2024-06-12 15:04] VITALS: BP 117/48; PULSE 68; RESP 16; TEMP 36.7; O2SAT 98
== END 2024-06-12 23:59 | disposition home or self-care (01) ==
LOC: MEDOUTP 13:38
PROVIDERS: PCP Nurse Practitioner Family; Referring Provider Psychiatry & Neurology Neurology; Visit Provider Psychiatry & Neurology Neurology
DX: E71.40 Disorder of carnitine metabolism, unspecified (principal)
CPT/HCPCS: 96365; A4216

== ENCOUNTER 2024-06-15 13:40 | Outpatient (CLI) | payer MEDICARE, BC, SELFPAY ==
[2024-06-15 13:48] VITALS: BP 144/67; PULSE 54; RESP 16; TEMP 36.4; O2SAT 97; BMI 36.0
[2024-06-15] MEDS: 0.9% Normal Saline (500mL Bag) 500 ML 999 ML IV (14:01)
[2024-06-15] MEDS: LEVOCARNITINE IV (14:18)
[2024-06-15] MEDS: NORMAL SALINE 0.9% IV (14:18)
[2024-06-15 14:59] VITALS: BP 142/65; PULSE 76
== END 2024-06-15 23:59 | disposition home or self-care (01) ==
LOC: MEDOUTP 13:40
PROVIDERS: PCP Nurse Practitioner Family; Referring Provider Psychiatry & Neurology Neurology; Visit Provider Psychiatry & Neurology Neurology
DX: E71.40 Disorder of carnitine metabolism, unspecified (principal)
CPT/HCPCS: 96365; A4216

== ENCOUNTER 2024-06-29 14:11 | Outpatient (CLI) | payer MEDICARE, BC, SELFPAY ==
[2024-06-29 14:11] VITALS: BP 151/64; PULSE 60; RESP 16; TEMP 36.4; O2SAT 99; BMI 32.5
[2024-06-29] MEDS: 0.9% Normal Saline (100mL Bag) 100 ML 400 ML IV ×2 (14:15→14:44)
[2024-06-29] MEDS: LEVOCARNITINE IV (14:32)
[2024-06-29] MEDS: NORMAL SALINE 0.9% IV (14:32)
[2024-06-29 15:15] VITALS: BP 140/62; PULSE 60; RESP 16; TEMP 36.5; O2SAT 98
== END 2024-06-29 23:59 | disposition home or self-care (01) ==
LOC: MEDOUTP 14:13
PROVIDERS: PCP Nurse Practitioner Family; Referring Provider Psychiatry & Neurology Neurology; Visit Provider Psychiatry & Neurology Neurology
DX: E71.40 Disorder of carnitine metabolism, unspecified (principal)
CPT/HCPCS: 96365; A4216

== ENCOUNTER 2024-08-16 14:30 | Outpatient (CLI) | payer MEDICARE, BC, SELFPAY ==
[2024-08-16] MEDS: LEVOCARNITINE IV (14:41)
[2024-08-16] MEDS: NORMAL SALINE 0.9% IV (14:41)
[2024-08-16 14:44] VITALS: BP 136/56; PULSE 65; RESP 16; TEMP 35.9; O2SAT 99
[2024-08-16 15:21] VITALS: BP 128/63; PULSE 62; RESP 16; TEMP 36; O2SAT 100
== END 2024-08-16 23:59 | disposition home or self-care (01) ==
LOC: MEDOUTP 14:30
PROVIDERS: PCP Nurse Practitioner Family; Referring Provider Psychiatry & Neurology Neurology; Visit Provider Psychiatry & Neurology Neurology
DX: E71.40 Disorder of carnitine metabolism, unspecified (principal)
CPT/HCPCS: 96365; A4216

== ENCOUNTER 2024-08-21 14:53 | Outpatient (CLI) | payer MEDICARE, BC, SELFPAY ==
[2024-08-21] MEDS: 0.9 % NaCl (Sterile) Posiflush 10 mL IV (15:23)
[2024-08-21] MEDS: NORMAL SALINE 0.9% IV (15:23)
[2024-08-21] MEDS: LEVOCARNITINE IV (15:23)
[2024-08-21 15:25] VITALS: BP 115/52; PULSE 65; RESP 16; TEMP 35.8; O2SAT 100
[2024-08-21] MEDS: 0.9% Normal Saline (100mL Bag) 100 ML 15 ML IV (15:27)
[2024-08-21] MEDS: 0.9% NaCl VAD Flush IV (15:59)
[2024-08-21 16:03] VITALS: BP 131/59; PULSE 67; RESP 16
== END 2024-08-21 23:59 | disposition home or self-care (01) ==
LOC: MEDOUTP 14:53
PROVIDERS: PCP Nurse Practitioner Family; Referring Provider Psychiatry & Neurology Neurology; Visit Provider Psychiatry & Neurology Neurology
DX: E71.40 Disorder of carnitine metabolism, unspecified (principal)
CPT/HCPCS: 96365; A4216

== ENCOUNTER 2024-08-24 14:28 | Outpatient (CLI) | payer MEDICARE, BC, SELFPAY ==
[2024-08-24 14:37] VITALS: BP 128/69; PULSE 64; RESP 16
[2024-08-24] MEDS: NORMAL SALINE 0.9% IV (14:50)
[2024-08-24] MEDS: LEVOCARNITINE IV (14:50)
[2024-08-24 15:36] VITALS: BP 130/65; PULSE 68
== END 2024-08-24 23:59 | disposition home or self-care (01) ==
LOC: MEDOUTP 14:28
PROVIDERS: PCP Nurse Practitioner Family; Referring Provider Psychiatry & Neurology Neurology; Visit Provider Psychiatry & Neurology Neurology
DX: E71.40 Disorder of carnitine metabolism, unspecified (principal)
CPT/HCPCS: 96365; A4216

== ENCOUNTER 2024-08-31 14:36 | Outpatient (CLI) | payer MEDICARE, BC, SELFPAY ==
[2024-08-31] MEDS: 0.9% Normal Saline (500mL Bag) 500 ML 999 ML IV (14:45)
[2024-08-31 14:46] VITALS: BP 150/83; PULSE 63; RESP 16; TEMP 36.1; O2SAT 94
[2024-08-31] MEDS: LEVOCARNITINE IV (15:03)
[2024-08-31] MEDS: NORMAL SALINE 0.9% IV (15:03)
[2024-08-31 15:55] VITALS: BP 143/71
== END 2024-08-31 23:59 | disposition home or self-care (01) ==
LOC: MEDOUTP 14:38
PROVIDERS: PCP Nurse Practitioner Family; Referring Provider Psychiatry & Neurology Neurology; Visit Provider Psychiatry & Neurology Neurology
DX: E71.40 Disorder of carnitine metabolism, unspecified (principal)
CPT/HCPCS: 96365; A4216

== ENCOUNTER 2024-09-06 14:48 | Outpatient (CLI) | payer MEDICARE, BC, SELFPAY ==
[2024-09-06 14:51] VITALS: BP 114/79; PULSE 73; RESP 18; TEMP 36.1; O2SAT 96
[2024-09-06] MEDS: 0.9% Normal Saline (500mL Bag) 500 ML 999 ML IV (15:01)
[2024-09-06] MEDS: NORMAL SALINE 0.9% IV (15:03)
[2024-09-06] MEDS: LEVOCARNITINE IV (15:03)
== END 2024-09-06 23:59 | disposition home or self-care (01) ==
LOC: MEDOUTP 14:48
PROVIDERS: PCP Nurse Practitioner Family; Referring Provider Psychiatry & Neurology Neurology; Visit Provider Psychiatry & Neurology Neurology
DX: E71.40 Disorder of carnitine metabolism, unspecified (principal)
CPT/HCPCS: 96365; A4216

== ENCOUNTER 2024-09-07 14:37 | Outpatient (CLI) | payer MEDICARE, BC, SELFPAY ==
[2024-09-07] MEDS: NORMAL SALINE 0.9% IV (15:03)
[2024-09-07] MEDS: LEVOCARNITINE IV (15:03)
[2024-09-07 15:04] VITALS: BP 126/61; PULSE 65; RESP 16; TEMP 36.1
[2024-09-07] MEDS: 0.9% Normal Saline (500mL Bag) 500 ML 999 ML IV (15:07)
[2024-09-07 16:02] VITALS: BP 101/54; PULSE 60; RESP 16; TEMP 36.1
== END 2024-09-07 23:59 | disposition home or self-care (01) ==
LOC: MEDOUTP 14:37
PROVIDERS: PCP Nurse Practitioner Family; Referring Provider Psychiatry & Neurology Neurology; Visit Provider Psychiatry & Neurology Neurology
DX: E71.40 Disorder of carnitine metabolism, unspecified (principal)
CPT/HCPCS: 96365; A4216

== ENCOUNTER 2024-09-14 14:31 | Outpatient (CLI) | payer MEDICARE, BC, SELFPAY ==
[2024-09-14] MEDS: 0.9% Normal Saline (500mL Bag) 500 ML 999 ML IV (14:40)
[2024-09-14 14:41] VITALS: BP 133/64; PULSE 64; RESP 16; TEMP 36.1; O2SAT 95
[2024-09-14] MEDS: NORMAL SALINE 0.9% IV (14:50)
[2024-09-14] MEDS: LEVOCARNITINE IV (14:50)
[2024-09-14 15:34] VITALS: BP 131/60; PULSE 58; RESP 16; TEMP 36.1; O2SAT 98
== END 2024-09-14 23:59 | disposition home or self-care (01) ==
LOC: MEDOUTP 14:31
PROVIDERS: PCP Nurse Practitioner Family; Referring Provider Psychiatry & Neurology Neurology; Visit Provider Psychiatry & Neurology Neurology
DX: E71.40 Disorder of carnitine metabolism, unspecified (principal)
CPT/HCPCS: 96365; A4216

== ENCOUNTER 2024-09-30 23:17 | Emergency (ER) | payer MEDICARE, BC, SELFPAY ==
[2024-09-30 23:17] VITALS: BP 136/67; PULSE 70; RESP 15; TEMP 36.4; O2SAT 97; BMI 31.3
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
[2024-09-30 23:30] VITALS: O2SAT 95
--- NOTE | 2024-09-30 23:35 | CT_ITS ---
PROCEDURE: SPINE CERVICAL WITHOUT CONTRAS 10/01/2024 REASON FOR EXAM: FALL,NECK PAIN TECHNIQUE: Cervical spine CT without contrast. Coronal and Sagittal reconstruction series were provided. One or more dose reduction techniques were used (e.g., Automated exposure control, adjustment of the mA and/or kV according to patient size, use of iterative reconstruction technique RADIATION DOSE SUMMARY: CTDlvol: 4068 mGy DLP: 994 mGycm COMPARISON: None. FINDINGS: Cervical vertebral bodies maintain normal height. There is straightening of the cervical lordosis. There is anterior cervical spinal fusion from C4-C7. There is disc space narrowing is endplate spurring at C3-C4, C5-C6, and C7-T1. Multilevel facet/uncovertebral changes are identified with associated neural foraminal narrowing. There are disc osteophyte complexes at C3-C4 and C5-C6 with mild central canal stenosis at C5-C6. No acute fracture or dislocation is present. There are degenerative changes of the atlantodental interval. Craniocervical junction is intact. Prevertebral soft tissues are intact. CT/Spine Cervical without Contras IMPRESSION: 1. No acute cervical spine fracture. 2. Anterior cervical spinal fusion. 3. Multilevel degenerative changes. Reading Location: [facility]
--- NOTE | 2024-09-30 23:35 | CT_ITS ---
PROCEDURE: SPINE LUMBAR WITHOUT CONTRAST 10/01/2024 REASON FOR EXAM: LOWER BACK PAIN TECHNIQUE: Lumbar spine CT without contrast. Coronal and Sagittal reconstruction series were provided. One or more dose reduction techniques were used (e.g., Automated exposure control, adjustment of the mA and/or kV according to patient size, use of iterative reconstruction technique COMPARISON: None. RADIATION DOSE SUMMARY: CTDlvol: 4068 mGy DLP: 359 mGycm FINDINGS: Lumbar vertebral bodies maintain a normal height. There is levoscoliosis of the lumbar spine. Multilevel degenerative changes are present with disc space narrowing and endplate spurring greatest from L3-L5 with severe disc space narrowing, vacuum disc phenomenon, and endplate spurring. Multilevel facet arthropathy is present. There is a lucency extending through the left L1 transverse process relating to an age-indeterminate fracture. Paraspinous musculature is unremarkable. CT/Spine Lumbar without Contrast IMPRESSION: 1. Lucency involving the left L1 transverse process relating to an age-indeterm inate fracture. Clinical correlation for point tenderness is recommended. 2. Multilevel degenerative changes. [facility]
--- NOTE | 2024-09-30 23:35 | CT_ITS ---
PROCEDURE: ABDOMEN/PELVIS WITHOUT CONT 10/01/2024 REASON FOR EXAM: LOWER ABDOMINAL PAIN AFTER FALL TECHNIQUE: Abdomen and pelvis CT without intravenous contrast. Noncontrast technique limits evaluation of the abdominal and pelvic viscera. Coronal and Sagittal reconstruction series were provided. One or more dose reduction techniques were used (e.g., Automated exposure control, adjustment of the mA and/or kV according to patient size, use of iterative reconstruction technique). COMPARISON: None. FINDINGS: Solid viscera is degraded without intravenous contrast. Lung bases are clear. Small hiatal hernia is identified. The nonenhanced liver, gallbladder, spleen, and adrenal glands are unremarkable within the limits of a noncontrast exam. There is atrophy of the pancreas. Abdominal aorta demonstrates a normal caliber with atherosclerotic calcifications. No renal or ureteral stones are present bilaterally. No hydronephrosis or hydroureter is identified bilaterally. Urinary bladder is underdistended. There is a small fat containing right inguinal hernia. Uterus is present. Colonic diverticulosis is identified without diverticulitis. Appendix is surgically absent. Small bowel demonstrates normal caliber. No free air or free fluid is identified. Advanced degenerative changes of the lumbar spine are identified from L2-S1. There is levoscoliosis of the lumbar spine. CT/Abdomen/Pelvis without Cont IMPRESSION: 1. No definite acute abnormality. 2. Colonic diverticulosis without diverticulitis. 3. Small hiatal hernia. Reading Location: [facility]
--- NOTE | 2024-09-30 23:35 | CT_ITS ---
PROCEDURE: SPINE THORACIC WITHOUT CONTRAS REASON FOR EXAM: BACK PAIN TECHNIQUE: Thoracic spine CT without contrast. Coronal and Sagittal reconstruction series were provided. One or more dose reduction techniques were used (e.g., Automated exposure control, adjustment of the mA and/or kV according to patient size, use of iterative reconstruction technique). RADIATION DOSE SUMMARY: CTDlvol: 4068 mGy DLP: 994 mGycm COMPARISON: None. FINDINGS: Thoracic vertebral bodies maintain normal height and alignment. Multilevel degenerative changes are present with anterior endplate spurring greatest along the mid to lower thoracic spine. No acute fracture or subluxation is identified. Paraspinous musculature is unremarkable. No significant central canal stenosis is present. CT/Spine Thoracic without Contras IMPRESSION: 1. No acute fracture. 2. Degenerative changes. [facility]
--- NOTE | 2024-09-30 23:35 | CT_ITS ---
PROCEDURE: BRAIN/HEAD WITHOUT CONTRAST 10/01/2024 REASON FOR EXAM: FALL, HEAD TRAUMA TECHNIQUE: Head CT without intravenous contrast. Coronal and Sagittal reconstruction series were provided. One or more dose reduction techniques were used (e.g., Automated exposure control, adjustment of the mA and/or kV according to patient size, use of iterative reconstruction technique. RADIATION DOSE SUMMARY: CTDlvol: 4068 mGy DLP: 796 . MGycm COMPARISON: None. FINDINGS: There is prominence of the ventricles and sulci indicative of atrophy. Periventricular and deep white matter hypoattenuation likely relates to chronic small vessel ischemic disease. No midline shift, mass effect, or extra-axial fluid collections are identified. No acute intracranial hemorrhage, mass, or acute territorial infarction is present per CT criteria. Henriquez-white junction is preserved. Calvarium is intact. Visualized paranasal sinuses are clear. CT/Brain/Head without Contrast IMPRESSION: 1. No acute intracranial process. If clinical concern for acute ischemia, MRI i s a more sensitive exam. 2. Chronic small vessel ischemic disease. 3. Atrophy. Reading Location: [facility]
--- NOTE | 2024-09-30 23:36 | RAD_ITS ---
PROCEDURE: Right SHOULDER MIN 2 VIEWS 10/01/2024 REASON FOR EXAM: PAIN AFTER FALL TECHNIQUE: Four views of the right shoulder are obtained. COMPARISON: None. FINDINGS: No acute fracture or dislocation is identified. There are degenerative changes of the acromioclavicular joint. Visualized soft tissues are unremarkable. RAD/Shoulder min 2 Views IMPRESSION: No acute fracture. Reading Location: [facility]
--- NOTE | 2024-09-30 23:59 | RAD_ITS ---
PROCEDURE: Right HIP, UNI W/ PELVIS 2-3 VIEWS 10/01/2024 REASON FOR EXAM: RIGHT HIP PAIN TECHNIQUE: Two views of the right hip and single frontal view of the pelvis are obtained. COMPARISON: None. FINDINGS: No acute fracture or dislocation is identified. Mild degenerative changes are present. Visualized soft tissues are unremarkable. RAD/HIP, UNI W/ Pelvis 2-3 Views IMPRESSION: No acute fracture. Reading Location: [facility]
[2024-10-01] MEDS: Ketorolac 15 MG/ML Vial IM (01:06)
[2024-10-01] MEDS: oxyCODONE 5 MG Tablet PO (01:06)
[2024-10-01 01:10] VITALS: BP 116/52; PULSE 65; RESP 17; TEMP -9.4; TEMP 15; O2SAT 98
== END 2024-10-01 01:18 | disposition home or self-care (01) ==
PROVIDERS: Emergency Provider Emergency Medicine; PCP Nurse Practitioner Family; Visit Provider Emergency Medicine
DX: S09.90XA Unspecified injury of head, initial encounter (principal); S40.011A Contusion of right shoulder, initial encounter; S20.229A Contusion of unspecified back wall of thorax, initial encounter; S70.01XA Contusion of right hip, initial encounter; R26.89 Other abnormalities of gait and mobility; J45.909 Unspecified asthma, uncomplicated; W19.XXXA Unspecified fall, initial encounter
CPT/HCPCS: 70450; 72125; 72128; 72131; 73030; 73502; 74176; 96372; 99283

== ENCOUNTER 2024-10-16 14:01 | Outpatient (CLI) | payer MEDICARE, BC, SELFPAY ==
[2024-10-16] MEDS: 0.9% Normal Saline (500mL Bag) 500 ML 999 ML IV (14:29)
[2024-10-16 14:30] VITALS: BP 129/60; PULSE 61; RESP 14; TEMP 36.1; O2SAT 100
[2024-10-16] MEDS: NORMAL SALINE 0.9% IV (14:53)
[2024-10-16] MEDS: LEVOCARNITINE IV (14:53)
[2024-10-16 15:38] VITALS: BP 121/55; PULSE 55; RESP 16; TEMP 36.4
== END 2024-10-16 23:59 | disposition home or self-care (01) ==
LOC: MEDOUTP 14:02
PROVIDERS: PCP Nurse Practitioner Family; Referring Provider Psychiatry & Neurology Neurology; Visit Provider Psychiatry & Neurology Neurology
DX: E71.40 Disorder of carnitine metabolism, unspecified (principal)
CPT/HCPCS: 96365; A4216

== ENCOUNTER 2024-10-23 14:17 | Outpatient (CLI) | payer MEDICARE, BC, SELFPAY ==
[2024-10-23] MEDS: 0.9% Normal Saline (500mL Bag) 500 ML 999 ML IV (14:43)
[2024-10-23] MEDS: NORMAL SALINE 0.9% IV (14:43)
[2024-10-23] MEDS: LEVOCARNITINE IV (14:43)
[2024-10-23 14:46] VITALS: BP 136/65; PULSE 57; RESP 16; TEMP 36.1; O2SAT 97
[2024-10-23 15:41] VITALS: BP 128/68; PULSE 55; RESP 16
== END 2024-10-23 23:59 | disposition home or self-care (01) ==
LOC: MEDOUTP 14:17
PROVIDERS: PCP Nurse Practitioner Family; Referring Provider Psychiatry & Neurology Neurology; Visit Provider Psychiatry & Neurology Neurology
DX: E71.40 Disorder of carnitine metabolism, unspecified (principal)
CPT/HCPCS: 96365; A4216

== ENCOUNTER 2024-10-30 13:59 | Outpatient (CLI) | payer MEDICARE, BC, SELFPAY ==
[2024-10-30 14:17] VITALS: BP 126/76; PULSE 46; RESP 16; TEMP 36.2; O2SAT 92
[2024-10-30] MEDS: 0.9% Normal Saline (500mL Bag) 500 ML 999 ML IV (14:17)
[2024-10-30] MEDS: LEVOCARNITINE IV (14:32)
[2024-10-30] MEDS: NORMAL SALINE 0.9% IV (14:32)
[2024-10-30 15:15] VITALS: BP 131/67; PULSE 70; RESP 16; TEMP 36.1; O2SAT 100
== END 2024-10-30 23:59 | disposition home or self-care (01) ==
LOC: MEDOUTP 13:59
PROVIDERS: PCP Nurse Practitioner Family; Referring Provider Psychiatry & Neurology Neurology; Visit Provider Psychiatry & Neurology Neurology
DX: E71.40 Disorder of carnitine metabolism, unspecified (principal)
CPT/HCPCS: 96365; A4216

== ENCOUNTER 2024-11-16 14:09 | Outpatient (CLI) | payer MEDICARE, BC, SELFPAY ==
[2024-11-16 14:29] VITALS: BP 133/59; PULSE 79; RESP 16; TEMP 36.6; O2SAT 98
[2024-11-16] MEDS: NORMAL SALINE 0.9% IV (14:33)
[2024-11-16] MEDS: LEVOCARNITINE IV (14:33)
[2024-11-16 15:32] VITALS: BP 135/63; PULSE 61
== END 2024-11-16 23:59 | disposition home or self-care (01) ==
PROVIDERS: PCP Nurse Practitioner Family; Visit Provider Psychiatry & Neurology Neurology
DX: E71.40 Disorder of carnitine metabolism, unspecified (principal)
CPT/HCPCS: 96365; A4216

== ENCOUNTER 2024-11-20 13:52 | Outpatient (CLI) | payer MEDICARE, BC, SELFPAY ==
[2024-11-20] MEDS: NORMAL SALINE 0.9% IV (14:11)
[2024-11-20] MEDS: LEVOCARNITINE IV (14:11)
[2024-11-20 14:13] VITALS: BP 129/59; PULSE 62; RESP 16; TEMP 36.1; O2SAT 98
[2024-11-20 15:14] VITALS: BP 120/48; PULSE 63; RESP 16; TEMP 35.8; O2SAT 100
== END 2024-11-20 23:59 | disposition home or self-care (01) ==
LOC: MEDOUTP 13:53
PROVIDERS: PCP Nurse Practitioner Family; Referring Provider Psychiatry & Neurology Neurology; Visit Provider Psychiatry & Neurology Neurology
DX: E71.40 Disorder of carnitine metabolism, unspecified (principal)
CPT/HCPCS: 96365

== ENCOUNTER 2024-11-27 14:06 | Outpatient (CLI) | payer MEDICARE, BC, SELFPAY ==
[2024-11-27] MEDS: NORMAL SALINE 0.9% IV (14:40)
[2024-11-27] MEDS: LEVOCARNITINE IV (14:40)
[2024-11-27 14:42] VITALS: BP 141/69; PULSE 59; RESP 16; TEMP 35.8; O2SAT 97; BMI 20.5
[2024-11-27 15:40] VITALS: BP 139/62; PULSE 65; RESP 16; TEMP 35.9; O2SAT 99
== END 2024-11-27 23:59 | disposition home or self-care (01) ==
LOC: MEDOUTP 14:06
PROVIDERS: PCP Nurse Practitioner Family; Referring Provider Psychiatry & Neurology Neurology; Visit Provider Psychiatry & Neurology Neurology
DX: E71.40 Disorder of carnitine metabolism, unspecified (principal)
CPT/HCPCS: 96365

== ENCOUNTER 2024-11-30 14:17 | Outpatient (CLI) | payer MEDICARE, BC, SELFPAY ==
[2024-11-30 14:26] VITALS: BP 132/86; PULSE 62; RESP 16; TEMP 35.8; O2SAT 99
[2024-11-30] MEDS: NORMAL SALINE 0.9% IV (14:45)
[2024-11-30] MEDS: LEVOCARNITINE IV (14:45)
[2024-11-30 15:34] VITALS: BP 118/66; PULSE 67; RESP 16; TEMP 36.1; O2SAT 99
== END 2024-11-30 23:59 | disposition home or self-care (01) ==
LOC: MEDOUTP 14:18
PROVIDERS: PCP Nurse Practitioner Family; Referring Provider Psychiatry & Neurology Neurology; Visit Provider Psychiatry & Neurology Neurology
DX: E71.40 Disorder of carnitine metabolism, unspecified (principal)
CPT/HCPCS: 96365; A4216

== ENCOUNTER 2024-12-14 14:31 | Outpatient (CLI) | payer MEDICARE, BC, SELFPAY ==
[2024-12-14 14:45] VITALS: BP 116/67; PULSE 60; RESP 16; TEMP 36.2; O2SAT 100
[2024-12-14] MEDS: NORMAL SALINE 0.9% IV (15:12)
[2024-12-14] MEDS: LEVOCARNITINE IV (15:12)
[2024-12-14 15:50] VITALS: BP 107/53; PULSE 64; RESP 16; TEMP 35.9; O2SAT 97
== END 2024-12-14 23:59 | disposition home or self-care (01) ==
LOC: MEDOUTP 14:32
PROVIDERS: PCP Nurse Practitioner Family; Referring Provider Psychiatry & Neurology Neurology; Visit Provider Psychiatry & Neurology Neurology
DX: E71.40 Disorder of carnitine metabolism, unspecified (principal)
CPT/HCPCS: 96365; A4216

== ENCOUNTER 2024-12-25 14:14 | Outpatient (CLI) | payer MEDICARE, BC, SELFPAY ==
[2024-12-25] MEDS: 0.9% Normal Saline (500mL Bag) 500 ML 999 ML IV (14:27)
[2024-12-25 14:28] VITALS: BP 123/57; PULSE 55; RESP 16; TEMP 36.7
[2024-12-25] MEDS: NORMAL SALINE 0.9% IV (14:52)
[2024-12-25] MEDS: LEVOCARNITINE IV (14:52)
[2024-12-25 15:40] VITALS: BP 117/50; PULSE 58
== END 2024-12-25 23:59 | disposition home or self-care (01) ==
LOC: MEDOUTP 14:14
PROVIDERS: PCP Nurse Practitioner Family; Referring Provider Psychiatry & Neurology Neurology; Visit Provider Psychiatry & Neurology Neurology
DX: E71.40 Disorder of carnitine metabolism, unspecified (principal)
CPT/HCPCS: 96365; A4216

== ENCOUNTER 2024-12-28 14:29 | Outpatient (CLI) | payer MEDICARE, BC, SELFPAY ==
[2024-12-28] MEDS: 0.9% Normal Saline (500mL Bag) 500 ML 999 ML IV (14:55)
[2024-12-28] MEDS: LEVOCARNITINE IV (14:57)
[2024-12-28] MEDS: NORMAL SALINE 0.9% IV (14:57)
[2024-12-28 14:58] VITALS: BP 116/57; PULSE 55; RESP 16; TEMP 36.1
== END 2024-12-28 23:59 | disposition home or self-care (01) ==
LOC: MEDOUTP 14:29
PROVIDERS: PCP Nurse Practitioner Family; Referring Provider Psychiatry & Neurology Neurology; Visit Provider Psychiatry & Neurology Neurology
DX: E71.40 Disorder of carnitine metabolism, unspecified (principal)
CPT/HCPCS: 96365; 96361; A4216

== ENCOUNTER 2025-01-11 15:12 | Outpatient (CLI) | payer MEDICARE, BC, SELFPAY ==
[2025-01-11 15:15] VITALS: BP 145/57; PULSE 60; RESP 16; TEMP 36.5; O2SAT 99
[2025-01-11] MEDS: LEVOCARNITINE IV (15:33)
[2025-01-11] MEDS: NORMAL SALINE 0.9% IV (15:33)
[2025-01-11 16:18] VITALS: BP 121/59; PULSE 59; RESP 16; TEMP 36.1; O2SAT 99
== END 2025-01-11 23:59 | disposition home or self-care (01) ==
LOC: MEDOUTP 15:13
PROVIDERS: PCP Nurse Practitioner Family; Referring Provider Psychiatry & Neurology Neurology; Visit Provider Psychiatry & Neurology Neurology
DX: E71.40 Disorder of carnitine metabolism, unspecified (principal)
CPT/HCPCS: 96365; A4216

== ENCOUNTER → 2025-05-10 | Outpatient (CLI) | payer MEDICARE, BC, SELFPAY ==
[2025-05-10 14:51] LABS: Hematocrit 39.4 % (37-47); Hemoglobin 12.6 g/dL (12.0-15.0); Immature Granulocytes Count 0.010 X10^3/uL (0.0-0.0); Mean Corp Hgb Conc 32.0 g/dL (32-36); Mean Corpuscular Volume 97.5 fL (81-99); Mean Platelet Vol. 10.1 fl (6.2-12.0); NRBC Flagged by Analyzer 0 % (0-5); Platelet Count 307 K/mm3 (150-450); RBC Distribution Width CV 13.4 % (11.6-14.6); RBC Distribution Width SD 47.8 fl (35.1-43.9); Red Blood Count 4.04 M/mm3 (4.2-5.4); White Blood Count 4.7 K/mm3 (4.4-11.0)
[2025-05-10 15:35] LABS: AST(SGOT) 19 U/L (<=31); Alanine Aminotransfer ALT/SGPT 10 U/L (<=34); Albumin, Serum 3.8 g/dL (3.4-4.8); Alkaline Phosphatase 56 U/L (35-104); Anion Gap 8 (5-15); BUN 16 mg/dL (4-19); BUN/Creat Ratio 20.9 RATIO (10-20); Calcium,Total 9.3 mg/dL (7.6-11.0); Carbon Dioxide 28.2 mmol/L (21.0-32.0); Chloride 106 mmol/L (98-108); Cholesterol 278 mg/dL (<=200); Globulin 2.5 g/dL (2.2-4.2); Glucose 111 mg/dL (70-99); Low Density Lipoprotein Calc. 190 mg/dL; Potassium 4.2 mmol/L (3.3-5.1); Triglycerides 89 mg/dL; Very Low Density Lipoprotein 18 mg/dL (5-40); Vitamin B12 325 pg/mL (180-914); cholesterol:hdl ratio screen 3.82
[2025-05-10 15:51] LABS: Creatinine, Urine (random) 70.60 mg/dL (28.00-217.00); Iron 106 ug/dL (50-170); Iron Binding Capacity,Total 293 ug/dL (250-450); Iron Binding Capacity,Unsat 187 ug/dL (228-428); Microalbumin,Random Urine < 12.0 mg/L (<20 mg/L)
[2025-05-13 17:07] LABS: Vitamin D 1,25-Dihydroxy 44.1 pg/mL (24.8-81.5)
== END | disposition home or self-care (01) ==
LOC: MTLAB 11:35
PROVIDERS: PCP Nurse Practitioner Family; Referring Provider Family Medicine; Visit Provider Family Medicine
DX: E53.8 Deficiency of other specified B group vitamins (principal); E78.5 Hyperlipidemia, unspecified; R80.9 Proteinuria, unspecified; R73.02 Impaired glucose tolerance (oral); M35.00 Sjogren syndrome, unspecified; D64.9 Anemia, unspecified
CPT/HCPCS: 36415; 80053; 80061; 82043; 82570; 82607; 82652; 83036; 83540; 83550; 84443; 85025